=== PATIENT | female | born 1960 | race Caucasian/White ===

== ENCOUNTER → 2016-04-19 | Outpatient (CLI) | payer MEDICARE ==
[~2016-04-19] MED LIST: ACET-2267 PO; ACET160E11; ALPR1T; ALPR1T PO; AMLO1TAB3 PO; AMLO1TAB5; AMLO5TAB2; ASP81TEC; ATOR20TA66 PO; ATOR40TA PO; ATOR40TA70 PO; BUPR100T6 PO; CALC-656 PO; CALC-787 PO; CEPH500C PO; CITA20TA4 PO; CITA40TA19 PO; CLON0.5T3 PO; CLON1TAB36 PO; CPR500T PO; CRS350T PO; ENOX40DI8 SQ; FERR240T9 PO; FLUO20CA25; FLUO20CA25 PO; FLUO20CA42; FLUO40CA PO; GBPN100C PO; HALO5TAB PO; HYDR-2997 PO; HYDR-3454 PO; HYDR-3583 PO; HYDR-757 PO; HYDR1TAB PO; HYDR50TA76 PO; IBUP-1773 PO; IBUP-30 PO; LAMO100T PO; LAMO25TA PO; LINA290C PO; LISI-552 PO; LNZ600T PO; LSNP20T PO; MELO-195 PO; MELO15TA14 PO; MELO15TA39 PO; META800T5 PO; METH500T7; METR500T PO; MORP20SO PO; MULT-963 PO; MULT1CAP27 PO; NAPR-243 PO; NFPRILOC40 PO; OLAN20TA16 PO; OLAN5TAB PO; OLN2.5T PO; OMEG-12 PO; OMEP-10 PO; OMEP40CA36 PO; ONDA-42 SL; ONDA8TAB9 PO; OXYC-109 PO; OXYC-12 PO; OXYC5SOL; PNT40TEC PO; PROP1TAB77; PYRI100T2 PO; QUET100T69 PO; QUET50TA55 PO; ROPI0.5T PO; SCR1T PO; TPR25T PO; TRAZ-144 PO; TRM50T PO; VENL150T PO; WRF2T PO; prevacid
--- OUTSIDE RECORDS SUMMARY | 2016-04-19 09:02 | XMS REPORT | Continuity of Care Document ---
Author Author [facility] Organization [facility] Address Unknown Phone Unavailable Care Team Providers Care Battery Repairer Name Role Phone Сергей Hopper PCP [phone] Source Comments Some departments are not documenting in the electronic medical record. If you do not see the information that you expected, contact Release of Information in the Health Information Management department at [phone] for further assistance in locating additional records.[facility] Active Allergies and Adverse Reactions Allergen Noted Date Severity Reactions Comments Adhesive 2011 RASH Codeine 04/22/2009 NAUSEA AND VOMITING Tachycardia, itching Pcn 12/31/2014 Medium HIVES Current Medications Prescription Sig. Disp. Refills Start End Date Status Date omeprazole DR(+) Take 1 Cap by mouth 90 Cap 3 03/04/20 Active (PRILOSEC) 40 mg capsule daily. 30 minutes to 1 11 hour prior to a meal levothyroxine (SYNTHROID) Take 25 mcg by mouth Active 25 mcg tablet daily 30 minutes before breakfast. amLODIPine (NORVASC) 5 mg Take 5 mg by mouth daily. Active tablet lithium carbonate SR Take 2 Tabs by mouth at 60 Tab 1 01/22/20 Active (LITHOBID) 300 mg tablet bedtime daily. Take with 16 food. lithium carbonate SR Take 1 Tab by mouth daily 30 Tab 1 01/22/20 Active (LITHOBID) 300 mg tablet with breakfast. Take with 16 food. nortriptyline (PAMELOR) Take 1 Cap by mouth at 30 Cap 1 01/22/20 Active 50 mg capsule bedtime daily. 16 traZODone (DESYREL) 50 mg Take 1 Tab by mouth at 30 Tab 1 02/02/20 Active tablet bedtime as needed for 16 Sleep or Depression. 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) Suicidal thoughts 01/27/2015 02/11/2015 Bipolar 1 disorder, depressed, severe ([facility]) 01/27/2015 02/14/2015 Depression with suicidal ideation 12/29/2014 01/14/2015 Bipolar 1 disorder, mixed, partial remission ([facility]) 06/12/2014 05/26/2015 Most Recent Encounters Date Type Specialty Providers Description 01/18/2016 [facility] Sam MD Encounter 01/18/2016 Anesthesia Gene Machuca MD Event Social History Tobacco Use Types Packs/Day Years Used Date Former Smoker 0 20 Quit: 03/06/1989 Smokeless Tobacco: Former Quit: User 03/06/1989 Alcohol Use Drinks/Week oz/Week Comments No 0.0 Last Filed Vital Signs Vital Sign Reading Time Taken Blood Pressure 136/86 01/18/2016 9:30 AM ASSOCIATE DIRECTOR OF BIOSTATISTICS Pulse 89 01/18/2016 9:30 AM ASSOCIATE DIRECTOR OF BIOSTATISTICS Temperature 37 C (98.6 F) 01/18/2016 9:30 AM ASSOCIATE DIRECTOR OF BIOSTATISTICS Respiratory Rate - - Height 1.676 m (5' 6") 01/22/2016 11:20 AM ASSOCIATE DIRECTOR OF BIOSTATISTICS Weight 106.505 kg (234 lb 12.8 01/22/2016 11:20 AM ASSOCIATE DIRECTOR OF BIOSTATISTICS oz) Body Mass Index 37.92 01/22/2016 11:20 AM ASSOCIATE DIRECTOR OF BIOSTATISTICS Oxygen Saturation 93% 01/18/2016 9:30 AM ASSOCIATE DIRECTOR OF BIOSTATISTICS Plan of Care Health Maintenance Due Date Last Done Comments Hepatitis C Screening 1959 Physical (Comprehensive) 1966 Exam Pertussis Vaccine 1970 Tetanus Vaccine 1976 Cervical Cancer Screening 1980 Breast Cancer Screening 1999 Colorectal Cancer 2009 Screening Influenza Vaccine 11/05/2015 Procedures from Last 3 Months Procedure Name Priority Date/Time Associated Diagnosis Comments PROCEDURES-SCAN 01/20/2016 Results for this 3:55 PM ASSOCIATE DIRECTOR OF BIOSTATISTICS procedure are in the results section. PROCEDURES-SCAN 01/20/2016 Results for this 3:52 PM ASSOCIATE DIRECTOR OF BIOSTATISTICS procedure are in the results section. Results from Last 3 Months PROCEDURES-SCAN (01/20/2016 3:55 PM) Narrative Ordered by an unspecified provider. PROCEDURES-SCAN (01/20/2016 3:52 PM) Narrative Ordered by an unspecified provider.
--- NOTE | 2016-04-19 09:16 | Diagnostic Imaging Report ---
PROCEDURE: CT sinuses without contrast TECHNIQUE: Multiple contiguous axial images were obtained through the sinuses without the use of intravenous contrast. Coronal and sagittal reformations were then performed. INDICATION: Left-sided jaw and ear pain x3 weeks. Suspect sinusitis. COMPARISON: CT neck dated 08/07/2015 FINDINGS: Evaluation of paranasal sinuses demonstrates small mucosal retention cyst versus polyp within the left maxillary sinus. Otherwise, there is no significant mucosal thickening throughout. No abnormal air-fluid levels are identified. Ostiomeatal complexes are patent. Bilateral nasal bones are intact. Bony nasal septum is intact as well. Bony nasal septum is slightly deviated to the right. This appears to be on a congenital or developmental basis. No acute bony abnormalities are seen. No lytic or blastic bony lesions are identified. Overlying soft tissue structures are unremarkable. No unexpected radiopaque foreign bodies are seen. There is no soft tissue emphysema. Included portions of the internal structures show no additional acute abnormalities. IMPRESSION: 1. No CT evidence of acute sinusitis. Dictated by: Dictated on workstation # [id number]
== END ==
LOC: RAD 08:58
PROVIDERS: ATTEND Nurse Practitioner Family
DX: R22.0 Localized swelling, mass and lump, head (principal)
CPT/HCPCS: 70486

== ENCOUNTER 2016-06-18 15:12 | Emergency (ER) | payer MEDICARE ==
[~2016-06-18] VITALS: Ht 170.2 cm; Wt 113.4 kg
[2016-06-18] MEDS ORDERED: KETOROLAC 60 MG/2 ML VIAL IM ONE (15:30)
--- NOTE | 2016-06-18 15:32 | ED Headache ---
General Chief Complaint: Head/Cervical Problems Stated Complaint: HEADACHE Source: patient Exam Limitations: no limitations History of Present Illness Time seen by provider: 15:31 Initial Comments To ER complaint by her with reports of a frontal headache associated with nausea and vomiting for the past 3-4 days. She has a history of these and this feels similar. Normally Phenergan and Toradol injections work well for her. Timing/Duration: other Severity/Quality: constant Location: frontal Associated Symptoms: denies symptoms Allergies and Home Medications Allergies Coded Allergies: codeine (Unverified Allergy, Intermediate, RASH/SWELLING; PATIENT HAS RECEIVED MORPHINE W/O PROBLEMS, 01/09/09) Iodinated Contrast Media - IV Dye (Unverified Allergy, Mild, 08/07/15) FEW HIVES, FULLNESS IN EARS Penicillins (Unverified Allergy, Mild, NAUSEA/VOMITING, 12/16/13) SHE CAN TAKE AUGMENTIN FINE adhesive tape (Unverified Allergy, Unknown, 09/02/13) latex (Unverified Allergy, Unknown, 09/02/13) Home Medications Clonazepam 0.5 Mg Tablet, 1 MG PO HS, (Reported) TAKES 2 (0.5MG) TABLETS Clonazepam 0.5 Mg Tablet, 0.5 MG PO AM, (Reported) Haloperidol 5 Mg Tablet, 5 MG PO DAILY, (Reported) Lamotrigine 25 Mg Tablet, 12.5 MG PO DAILY, #30 Ref 1 Prescribed by: JAJA SOTELO on 12/09/14 0911 Linaclotide 290 Mcg Capsule, 290 MCG PO DAILY PRN for CONSTIPATION, (Reported) Lisinopril 20 Mg Tablet, 20 MG PO DAILY, (Reported) Omeprazole 40 Mg Capsule.dr, 40 MG PO DAILY, (Reported) Venlafaxine HCl 150 Mg Tab.er.24, 150 MG PO DAILY, (Reported) Constitutional: see HPI, No fever Eyes: No Symptoms Reported Ears, Nose, Mouth, Throat: no symptoms reported Respiratory: no symptoms reported Cardiovascular: no symptoms reported Genitourinary: no symptoms reported Musculoskeletal: no symptoms reported Skin: see HPI Psychiatric/Neurological: See HPI, Headache Past Zyydcxn-Yrhrbn-Rymcus Hx Patient Social History Former Smoker/When Quit: Dec 05, 1990 2nd Hand Smoke Exposure: No Recent Foreign Travel: No Contact w/Someone Who Travel: No Immunizations Up To Date Tetanus Booster (TDap): More than 5yrs PED Vaccines UTD: No Date of Pneumonia Vaccine: Dec 04, 2008 Date of Influenza Vaccine: Nov 28, 2014 Seasonal Allergies Seasonal Allergies: Yes Surgeries HX Surgeries: Yes (PEG TUBE, TRACH, COLON RESECTION, bunion sx, PORT REMOVED IN 2010, ) Surgeries: Appendectomy, Breast, Gallbladder, Hysterectomy, Orthopedic, Tonsillectomy Respiratory Hx Respiratory Disorders: No Cardiovascular Hx Cardiac Disorders: Yes (CARDIAC CATH, BLOOD CLOT 2010 UPPER SHOULDER ) Cardiac Disorders: High Cholesterol, Hypertension Neurological Hx Neurological Disorders: No Reproductive System Hx Reproductive Disorders: Yes Sexually Transmitted Disease: No Female Reproductive Disorders: Endometriosis, Ovarian Cyst, Polycystic Ovarian Dis STRUCTURAL FITTER History: Hysterectomy, Menopausal Genitourinary Hx Genitourinary Disorders: No Gastrointestinal Hx Gastrointestinal Disorders: Yes Gastrointestinal Disorders: Gastroesophageal Reflux, Diverticulosis Musculoskeletal Hx Musculoskeletal Disorders: Yes Musculoskeletal Disorders: Arthritis, Fibromyalgia Endocrine Hx Endocrine Disorders: No HEENT HX ENT Disorders: Yes (OROPHARYNX CA--S/P CHEMO & RADIATION, TRACH ) Loss of Vision: Denies Hearing Impairment: Denies Cancer Hx Cancer: Yes (tumor above vocal chords removed 5 YEARS AGO) Psychosocial Hx Psychiatric Problems: Yes Behavioral Health Disorders: Sleep Difficulties, Anxiety, Bipolar, Depression Integumentary HX Skin/Integumentary Disorder: No Blood Transfusions Hx Blood Disorders: No Adverse Reaction to a Blood Tr: No Family Medical History Significant Family History: Heart Disease, Cancer, Hypertension, Psychiatric Problems Family Medial History: Alzheimer's disease 19 MOTHER Arthritis 19 MOTHER Cardiovascular disease 19 MOTHER Cataracts 19 MOTHER Dementia 19 MOTHER Diabetes mellitus 19 FATHER Headache disorder Hypercholesterolemia 19 FATHER Hypertension 19 FATHER Neoplasm 19 FATHER (PANCREATIC CANCER) Physical Exam Vital Signs Capillary Refill : General Appearance: WD/WN, no apparent distress HEENT: PERRL/EOMI, normal ENT inspection Neck: non-tender, full range of motion Respiratory: normal breath sounds, no respiratory distress, no accessory muscle use Gastrointestinal: non tender, soft Extremities: normal range of motion, non-tender Psychiatric: alert, oriented x 3 Crainal Nerves: normal hearing, normal speech, PERRL Skin: normal color, warm/dry Progress/Results/Core Measures Results/Orders My Orders Orders - MARTHA LEE APRN Ketorolac Injection (Toradol Injection) (06/18/16 15:30) Departure Impression Impression: Primary Impression: Headache Disposition: 01 HOME, SELF-CARE Condition: Stable Departure-Patient Inst. Decision time for Depature: 15:33 Referrals: JAJA SOTELO MD (PCP/Family) Primary Care Physician Patient Instructions: Headache, Adult (DC) Add. Discharge Instructions: 1. Return to ER for any concerns 2. Follow-up with your doctor next week 3. All discharge instructions reviewed with patient and/or family. Voiced understanding. MARTHA LEE APRN Jun 18, 2016 15:32
[2016-06-18] MEDS ORDERED: PROMETHAZINE INJ 25 MG/ML (PHENERGAN) AMP ONE (15:37)
[2016-06-18 16:08] VITALS: BP 142/90
== END 2016-06-18 16:10 | disposition home or self-care (01) ==
LOC: EDUNIT# 15:12 → ER 15:15
DX: R51 Headache (principal); R11.2 Nausea with vomiting, unspecified; I10 Essential (primary) hypertension; Z79.899 Other long term (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
CPT/HCPCS: 96372; 99282

== ENCOUNTER → 2016-08-11 | Outpatient (CLI) | payer MEDICARE ==
[~2016-08-11] VITALS: Ht 170.2 cm; Wt 113.6 kg
== END ==
LOC: PREOP 06:16
PROVIDERS: ATTEND Surgery
DX: Z01.818 Encounter for other preprocedural examination (principal); Z12.11 Encounter for screening for malignant neoplasm of colon

== ENCOUNTER 2016-08-15 11:39 | Day surgery (SDC) | payer MEDICARE ==
[~2016-08-15] VITALS: Ht 170.2 cm; Wt 113.6 kg
[2016-08-15] MEDS ORDERED: LACTATED RINGERS 1,000 ML IV ONE (11:50)
[2016-08-15 12:05] VITALS: BP 134/68
[2016-08-15] MEDS ORDERED: proPOfol 200 MG/20 ML (DIPRIVAN) VIAL IV ONE (13:31)
[2016-08-15] MEDS ORDERED: MIDAZOLAM 2 MG/2 ML (VERSED) VIAL ONE ×2 (13:32)
--- NOTE | 2016-08-15 13:53 | Progress Note-Pre Operative ---
Pre-Operative Progress Note H&P Reviewed The H&P was reviewed, patient examined and no changes noted. Time Seen by Provider: 12:47 Date H&P Reviewed: Aug 15, 2016 Time H&P Reviewed: 12:48 Pre-Operative Diagnosis: constipation, change in bowel habits ANGEL PUENTES DO Aug 15, 2016 13:53
[2016-08-15] MEDS ORDERED: morphine INJ 10 MG/ML 1ML (SYR OR VIAL) IVP PRN (14:00)
--- NOTE | 2016-08-15 14:25 | Progress Note-Post Operative ---
Post-Operative Progess Note Surgeon (s)/Nurse College (s) Surgeon ANGEL PUENTES DO Nurse College: none Pre-Operative Diagnosis constipation, change in bowel habits Post-Operative Diagnosis Polyps - cecum, ascending colon, rectum Procedure & Operative Findings Date of Procedure 08/15/16 Procedure Performed/Findings Colon with snare Anesthesia Type IV sedation Estimated Blood Loss Estimated blood loss (mL): scant Specimens/Packing Specimens Removed 1 polyp in 3 pieces cecal asc colon polyp rectal polyp ANGEL PUENTES DO Aug 15, 2016 14:25
--- NOTE | 2016-08-15 14:27 | Endoscopy Discharge Instruct ---
Endo Procedure/Findings Findings 1.: Polyp 2.: Diverticulosis 3.: Internal Hemorrhoids Discharge Instructions - Activity: You might feel a little sleepy until tomorrow. This is due to the medicine you received to relax you. Until tomorrow, you should: NOT drive a car, operate machinery or power tools. NOT drink any alcoholic beverages. NOT make any important decisions or sign importortant papers. Do not return to work until tomorrow, unless otherwise instructed. Resume previous activities tomorrow. Diet: Start by taking liquids. If you tolerate liquids, advance to solid food. Call for appointment in one week. [phone] Notify Physician - If you experience excessive bleeding, unusual abdominal pain, fever, or chest pain, contact your doctor immediately. [phone] Follow-Up: - I have received and understand the above instructions and will call my doctor if I have any further questions. Patient Signature Date Nurse Signature Other (Relationship) ANGEL PUENTES DO Aug 15, 2016 14:27
[2016-08-15 14:40] VITALS: BP 135/85
[2016-08-15 15:00] VITALS: BP 121/63
[2016-08-15 15:05] VITALS: BP 121/63
--- NOTE | 2016-08-16 03:48 | OPERATIVE REPORT ---
DATE OF SERVICE: 08/15/2016 PREOPERATIVE DIAGNOSES: 1. Change in bowel habits. 2. Constipation. 3. Screening colonoscopy. POSTOPERATIVE DIAGNOSES: 1. Colon polyps. 2. Diverticula. 3. Internal hemorrhoids. PROCEDURE: Colonoscopy with snare polypectomy. SURGEON: Sumit Dietrich DO ORE GRADER: None. ANESTHESIA: IV sedation by SENIOR HYDROGEOLOGIST. SPECIMENS: 1. One large polyp and 3 pieces from the cecum. 2. Polyp from ascending colon. 3. Polyp from rectum. BLOOD LOSS: Scant. FLUIDS: Per anesthesia. POSTOPERATIVE CONDITION: Stable. INDICATION FOR PROCEDURE: The patient is a 56-year-old female who has been having some change in bowel habits, history of esophageal cancer. She also had a colon resection, I think for diverticulitis and she needed screening colonoscopy. FINDINGS: The patient had one large polyp in the cecum. She also had another polyp seen in the ascending colon and one in the rectum. The one in the cecum had been taken in 3 bites, so I could piece by piece take the whole thing removed. She also had some diverticula seen and some internal hemorrhoids. Pictures were taken of both of these. PROCEDURE NOTE: After informed consent was obtained, the patient was brought to the endoscopy suite, placed in the bed in left lateral decubitus position. She was administered IV sedation and the SENIOR HYDROGEOLOGIST monitored her vitals. Scope was inserted, pushed all the way to about 120 cm till we got all the way to the cecum. On the way, I took a picture of the previous colon resection which is down low. I took a picture of some diverticula and then noticed a mass in the cecum, then took a picture of the appendix. In the cecum, took 3 bites with a snare to remove this whole thing. I took a picture after this was gone. There was minimal bleeding. I then slowly withdrew the scope, insufflating to look circumferentially at the mejias and up into the ascending colon just past the terminal ileum, saw another small polyp, did a snare polypectomy of this and then continued up the ascending colon to the hepatic flexure, then down the transverse colon, the splenic flexure. Started seeing some diverticula here and then into the rectum saw another polyp. Did a snare polypectomy of this and then retroflexed in the rectal vault and saw some small internal hemorrhoids and then removed the scope. The patient tolerated the procedure and she was transferred to the recovery room in stable condition. Job ID: [id number] DocumentID: [id number] Dictated Date: 08/15/2016 16:53:22 Clinical Reviewer Date: 08/16/2016 03:25:56 Dictated By: SUMIT DIETRICH DO
== END 2016-08-15 15:05 | disposition home or self-care (01) ==
LOC: ENDO 11:39
PROVIDERS: ATTEND Surgery
DX: K63.5 Polyp of colon (principal); K57.30 Diverticulosis of large intestine without perforation or abscess without bleeding; K64.8 Other hemorrhoids; Z85.01 Personal history of malignant neoplasm of esophagus; F41.9 Anxiety disorder, unspecified; J21.9 Acute bronchiolitis, unspecified; I10 Essential (primary) hypertension; E78.5 Hyperlipidemia, unspecified; M79.7 Fibromyalgia; F31.9 Bipolar disorder, unspecified; K21.9 Gastro-esophageal reflux disease without esophagitis; Z79.899 Other long term (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
CPT/HCPCS: 82962

== ENCOUNTER 2016-11-04 16:43 | Emergency (ER) | payer MEDICARE ==
[~2016-11-04] VITALS: Ht 170.2 cm; Wt 83.0 kg
--- OUTSIDE RECORDS SUMMARY | 2016-11-04 16:49 | XMS REPORT | Clinical Summary ---
Author Author [facility] Organization [facility] Address Unknown Phone Unavailable Care Team Providers Care Office Machine Servicer Apprentice Name Role Phone PCP Unavailable Source Comments Some departments are not documenting in the electronic medical record. If you do not see the information that you expected, contact Release of Information in the Health Information Management department at [phone] for further assistance in locating additional records.[facility] Allergies Active Allergy Reactions Severity Noted Date Comments Penicillins HIVES Medium 12/31/2014 Adhesive RASH 2011 Codeine NAUSEA AND VOMITING 04/22/2009 Tachycardia, itching Current Medications Prescription Sig. Disp. 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 Resolved Problems Problem Noted Date Resolved Date Suicidal ideation 01/09/2016 01/18/2016 Suicidal ideation 05/25/2015 06/10/2015 Major depressive disorder, recurrent, severe without psychotic features 02/201505/26/2015 ([facility]) Suicidal thoughts 01/27/2015 02/11/2015 Bipolar 1 disorder, depressed, severe ([facility]) 01/27/2015 02/14/2015 Depression with suicidal ideation 12/29/2014 01/14/2015 Bipolar 1 disorder, mixed, partial remission ([facility]) 06/12/2014 05/26/2015 Family History Medical History Relation Name Comments Hypertension Brother Cancer Father Diabetes Father Hypertension Father Depression Mother High Cholesterol Mother Hypertension Mother Relation Name Status Comments Brother Alive Father Mother Alive Social History Tobacco Use Types Packs/Day Years Used Date Former Smoker 0 20 Quit: 03/06/1989 Smokeless Tobacco: Former Quit: User 03/06/1989 Alcohol Use Drinks/Week oz/Week Comments No 0.0 Sex Assigned at Date Recorded Not on file Last Filed Vital Signs Vital Sign Reading Time Taken Blood Pressure 136/86 01/18/2016 9:30 AM DEPUTY CORONER INVESTIGATOR Pulse 89 01/18/2016 9:30 AM DEPUTY CORONER INVESTIGATOR Temperature 37 C (98.6 F) 01/18/2016 9:30 AM DEPUTY CORONER INVESTIGATOR Respiratory Rate - - Oxygen Saturation 93% 01/18/2016 9:30 AM DEPUTY CORONER INVESTIGATOR Inhaled Oxygen - - Concentration Weight 106.5 kg (234 lb 12.8 oz) 01/22/2016 11:20 AM DEPUTY CORONER INVESTIGATOR Height 167.6 cm (5' 6") 01/22/2016 11:20 AM DEPUTY CORONER INVESTIGATOR Body Mass Index 37.9 01/22/2016 11:20 AM DEPUTY CORONER INVESTIGATOR Plan of Treatment Health Maintenance Due Date Last Done Comments HEPATITIS C SCREENING 1960 PHYSICAL (COMPREHENSIVE) 1966 EXAM PERTUSSIS VACCINE 1970 TETANUS VACCINE 1976 CERVICAL CANCER SCREENING 1989 BREAST CANCER SCREENING 1999 COLORECTAL CANCER 2009 SCREENING INFLUENZA VACCINE 11/04/2016 Results Not on filefrom Last 3 Months
--- NOTE | 2016-11-04 17:50 | ED Abdominal Pain ---
General Chief Complaint: Abdominal/GI Problems Stated Complaint: VOMITING/STOMACH PAIN Nursing Triage Note: Ambulatory to ED 8 with reports of nausea, vomiting, diarrhea and abdominal pain since Monday. Denies seeing PCP. Sepsis Screen: No Definite Risk Source of Information: Patient, Family Exam Limitations: No Limitations (DAVID STEINER MD) History of Present Illness Time Seen By Provider: 17:45 Initial Comments The patient is a 56-year-old white female of 140 previous EMR contacts. She reports that she is had vomiting since last Monday. She has intermittently had diarrhea and then constipation. She had a large watery stool earlier today. There has been some distention. There has been previous abdominal surgery. Timing/Duration: 5-6 Days Severity/Quality: Moderate Location: Generalized Abdomen Radiation: No Radiation Activities at Onset: None Associated Symptoms: Denies Symptoms (DAVID STEINER MD) Initial Comments Patient ALSO gives a history that she's been vomiting since Monday and not able to keep any fluids or food down. She states that her allergy to penicillin is causing ringing in the ears. She says she's had Rocephin in the past and tolerated just fine. (FRED,ROSELYN King) Allergies and Home Medications Allergies Coded Allergies: codeine (Verified Allergy, Intermediate, RASH/SWELLING; PATIENT HAS RECEIVED MORPHINE W/O PROBLEMS, 11/04/16) Iodinated Contrast- Oral and IV Dye (Verified Allergy, Mild, 11/04/16) FEW HIVES, FULLNESS IN EARS Penicillins (Verified Allergy, Mild, NAUSEA/VOMITING, 11/04/16) SHE CAN TAKE AUGMENTIN FINE adhesive tape (Verified Allergy, Unknown, 11/04/16) latex (Verified Allergy, Unknown, 11/04/16) Home Medications Cephalexin 500 Mg Capsule, 500 MG PO BID for 4 Days, #8 Ref 0 Prescribed by: ROSELYN IBARRA on 11/04/16 1910 Clonazepam 0.5 Mg Tablet, 1 MG PO HS, (Reported) TAKES 2 (0.5MG) TABLETS Clonazepam 0.5 Mg Tablet, 0.5 MG PO AM, (Reported) Haloperidol 5 Mg Tablet, 5 MG PO DAILY, (Reported) Lamotrigine 25 Mg Tablet, 12.5 MG PO DAILY, #30 Ref 1 Prescribed by: JAJA SOTELO on 12/09/14 0911 Linaclotide 290 Mcg Capsule, 290 MCG PO DAILY PRN for CONSTIPATION, (Reported) Lisinopril 20 Mg Tablet, 20 MG PO DAILY, (Reported) Omeprazole 40 Mg Capsule.dr, 40 MG PO DAILY, (Reported) Ondansetron 4 Mg Tab.rapdis, 4 MG PO Q6H PRN for NAUSEA/VOMITING-1ST LINE for 7 Days, #10 Ref 0 Prescribed by: ROSELYN IBARRA on 11/04/160 Venlafaxine HCl 150 Mg Tab.er.24, 150 MG PO DAILY, (Reported) Review of Systems Constitutional: No chills, No diaphoresis, malaise EENTM: No Blurred Vision, No Double Vision, No Eye Pain Respiratory: Denies Cough, Denies Shortness of Air Cardiovascular: Denies Chest Pain, Denies Lightheadedness Gastrointestinal: See HPI, Denies Diarrhea, Denies Nausea, Denies Vomiting Genitourinary: Denies Burning, Denies Discharge Musculoskeletal: No back pain, No joint pain Skin: No change in color Psychiatric/Neurological: Denies Headache, Denies Numbness, Denies Paresthesia (ROSELYN IBARRA) Past Aukhjla-Coshfp-Rjocmb Hx Patient Social History Alcohol Use: Denies Use Recreational Drug Use: No Smoking Status: Former Smoker Type Used: Cigarettes Former Smoker, Quit: Aug 11, 1986 2nd Hand Smoke Exposure: No Recent Foreign Travel: No Contact w/Someone Who Travel: No Recent Infectious Disease Expo: No Recent Hopitalizations: No Physical Abuse: No Sexual Abuse: No Mistreated: No Fear: No (DAVID STEINER MD) Immunizations Up To Date Tetanus Booster (TDap): Less than 5yrs PED Vaccines UTD: No Date of Pneumonia Vaccine: July 25, 2016 Date of Influenza Vaccine: Dec 14, 2015 (DAVID STEINER MD) Seasonal Allergies Seasonal Allergies: Yes (DAVID STEINER MD) Surgeries History of Surgeries: Yes (PEG TUBE, TRACH, COLON RESECTION, bunion sx, PORT REMOVED IN 2010, ) Surgeries: Appendectomy, Breast, Gallbladder, Hysterectomy, Orthopedic, Tonsillectomy (DAVID STEINER MD) Respiratory History of Respiratory Disorde: No Currently Using CPAP: No (DAVID STEINER MD) Cardiovascular History of Cardiac Disorders: Yes (CARDIAC CATH-NO STENTS) Cardiac Disorders: Deep Vein Thrombosis, High Cholesterol, Hypertension (DAVID STEINER MD) Neurological History of Neurological Disord: No (DAVID STEINER MD) Reproductive System Hx Reproductive Disorders: No Sexually Transmitted Disease: No HIV/AIDS: No Female Reproductive Disorders: Polycystic Ovarian Dis DIRECTOR PHARMACOVIGILANCE History: Hysterectomy (DAVID STEINER MD) Gastrointestinal History of Gastrointestinal Di: Yes Gastrointestinal Disorders: Gastroesophageal Reflux, Chronic Constipation, Diverticulosis (DAVID STEINER MD) Musculoskeletal History of Musculoskeletal Dis: Yes Musculoskeletal Disorders: Arthritis, Fibromyalgia (DAVID STEINER MD) Endocrine History of Endocrine Disorders: Yes (DAVID STEINER MD) HEENT Loss of Vision: Bilateral Hearing Impairment: Denies (DAVID STEINER MD) 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) Did You Recieve Any Treatments: Yes Type of Tx Receive: Chemotherapy, Radiation (DAVID STEINER MD) Psychosocial History of Psychiatric Problem: Yes Behavioral Health Disorders: Sleep Difficulties, Anxiety, Bipolar, Depression Suicide Risk Score: 0 (DAVID STEINER MD) Integumentary History of Skin or Integumenta: No (DAVID STEINER MD) Blood Transfusions History of Blood Disorders: No Adverse Reaction to a Blood Tr: No (DAVID STEINER MD) Family Medical History Significant Family History: Heart Disease, Cancer, Hypertension, Psychiatric Problems Family Medial History: Alzheimer's disease 19 MOTHER Arthritis 19 MOTHER Cardiovascular disease 19 MOTHER Cataracts 19 MOTHER Dementia 19 MOTHER Diabetes mellitus 19 FATHER Headache disorder Hypercholesterolemia 19 FATHER Hypertension 19 FATHER Neoplasm 19 FATHER (PANCREATIC CANCER) (DAVID STEINER MD) Family Medial History: Alzheimer's disease 19 MOTHER Arthritis 19 MOTHER Cardiovascular disease 19 MOTHER Cataracts 19 MOTHER Dementia 19 MOTHER Diabetes mellitus 19 FATHER Headache disorder Hypercholesterolemia 19 FATHER Hypertension 19 FATHER Neoplasm 19 FATHER (PANCREATIC CANCER) (ROSELYN IBARRA) Physical Exam Vital Signs VS - Last 72 Hours, by Label 11/04/16 11/04/16 17:14 20:49 Temp 98.5 98.5 Pulse 94 84 Resp 18 19 B/P (MAP) 133/79 Pulse Ox 98 97 O2 Delivery Room Air Room Air (ROSELYN IBARRA) Vital Signs Capillary Refill : Less Than 3 Seconds (DAVID STEINER MD) General Appearance: WD/WN, no apparent distress HEENT: normal ENT inspection Neck: full range of motion Respiratory: chest non-tender, lungs clear, normal breath sounds, no respiratory distress, no accessory muscle use Cardiovascular: normal peripheral pulses, regular rate, rhythm, no edema, no gallop, no JVD, no murmur Gastrointestinal: abnormal bowel sounds (hyperactive) Extremities: normal range of motion, no pedal edema Skin: normal color, warm/dry Lymphatic: no adenopathy (DAVID STEINER MD) Progress/Results/Core Measures Results/Orders Lab Results Laboratory Tests Test 11/04/16 18:10 11/04/16 18:17 Range/Units White Blood Count 5.6 4.3-11.0 10^3/uL Red Blood Count 4.89 4.35-5.85 10^6/uL Hemoglobin 13.9 11.5-16.0 G/DL Hematocrit 41 35-52 % Mean Corpuscular Volume 83 80-99 FL Mean Corpuscular Hemoglobin 28 25-34 PG Mean Corpuscular Hemoglobin Concent 34 32-36 G/DL Red Cell Distribution Width 15.2 H 10.0-14.5 % Platelet Count 257 130-400 10^3/uL Mean Platelet Volume 9.2 7.4-10.4 FL Neutrophils (%) (Auto) 63 42-75 % Lymphocytes (%) (Auto) 26 12-44 % Monocytes (%) (Auto) 10 0-12 % Eosinophils (%) (Auto) 1 0-10 % Basophils (%) (Auto) 0 0-10 % Neutrophils # (Auto) 3.5 1.8-7.8 X 10^3 Lymphocytes # (Auto) 1.5 1.0-4.0 X 10^3 Monocytes # (Auto) 0.6 0.0-1.0 X 10^3 Eosinophils # (Auto) 0.0 0.0-0.3 10^3/uL Basophils # (Auto) 0.0 0.0-0.1 10^3/uL Sodium Level 141 135-145 MMOL/L Potassium Level 2.5 *L 3.6-5.0 MMOL/L Chloride Level 102 98-107 MMOL/L Carbon Dioxide Level 24 21-32 MMOL/L Anion Gap 15 H 5-14 MMOL/L Blood Urea Nitrogen 11 7-18 MG/DL Creatinine 0.78 0.60-1.30 MG/DL Estimat Glomerular Filtration Rate > 60 BUN/Creatinine Ratio 14 Glucose Level 90 70-105 MG/DL Calcium Level 9.3 8.5-10.1 MG/DL Total Bilirubin 0.6 0.1-1.0 MG/DL Aspartate Amino Transf (AST/SGOT) 98 H 5-34 U/L Alanine Aminotransferase (ALT/SGPT) 38 0-55 U/L Alkaline Phosphatase 60 40-136 U/L Total Protein 6.4 6.4-8.2 GM/DL Albumin 4.1 3.2-4.5 GM/DL Urine Color YELLOW Urine Clarity CLEAR Urine pH 5 5-9 Urine Specific [place] 1.025 H 1.016-1.022 Urine Protein 2+ H NEGATIVE Urine Glucose (UA) NEGATIVE NEGATIVE Urine Ketones 3+ H NEGATIVE Urine Nitrite NEGATIVE NEGATIVE Urine Bilirubin 1+ H NEGATIVE Urine Urobilinogen 1 NORMAL MG/DL Urine Leukocyte Esterase 1+ H NEGATIVE Urine RBC (Auto) 2+ H NEGATIVE Urine RBC 2-5 H /HPF Urine WBC 5-10 H /HPF Urine Crystals NONE /LPF Urine Bacteria FEW H /HPF Urine Casts PRESENT /LPF Urine Hyaline Casts 2-5 H /LPF Urine Mucus NEGATIVE /LPF Urine Culture Indicated YES (ROSELYN IBARRA) My Orders Orders - ROSELYN IBARRA Saline Lock/Iv-Start (11/04/16 19:02) Ns Iv 1000 Ml (Sodi... W/Potassium Chlor (11/04/16 19:02) Ceftriaxone Injection (Rocephin Injectio (11/04/16 19:15) Ondansetron Injection (Zofran Injectio (11/04/16 19:15) Rx-Ondansetron Po (Rx-Zofran Po) (11/04/16 19:02) (ROSELYN IBARRA) Medications Given in ED Current Medications Medications Dose Ordered Sig/Keven Route Start Time Stop Time Status Last Admin Dose Admin Ceftriaxone Sodium 1000 mg/ Sodium Chloride 50 ml @ 100 mls/hr ONCE ONCE IV 11/04/16 19:15 11/04/16 19:44 DC 11/04/16 19:20 100 MLS/HR Ondansetron HCl 4 mg ONCE ONCE IVP 11/04/16 19:15 11/04/16 19:16 DC 11/04/16 19:19 4 MG Potassium Chloride 20 meq/ Sodium Chloride 1,010 ml @ 1 l/hr Q1H1M ONCE IV 11/04/16 19:02 11/04/16 20:02 DC 11/04/16 19:27 1 L/HR (ROSELYN IBARRA) Vital Signs/I&O Vital Sign - Last 12Hours 11/04/16 11/04/16 17:14 20:49 Temp 98.5 98.5 Pulse 94 84 Resp 18 19 B/P (MAP) 133/79 Pulse Ox 98 97 O2 Delivery Room Air Room Air Intake and Output 11/05/16 00:00 Intake Total 1060 ml Balance 1060 ml (ROSELYN IBARRA) Blood Pressure Mean: 97 Progress Note : Time: 19:06 Progress Note Patient has a UTI on urinalysis which would explain all of her symptoms. We'll give her some nausea medicines replace her low potassium with a bag of fluids and potassium and if we can get her nausea under control then she can resume drinking Gatorade and eating an and as and this will fix her potassium on its own. We'll give her a gram or Rocephin as well as a liter fluids washes all down with. We will observe her over the next hour or 2 that it takes to get the potassium in. (ROSELYN IBARRA) Diagnostic Imaging Diagonstic Imaging: CT Plain Films/CT/US/NM/MRI: abdomen, pelvis Comments VIA [facility]. [place], [place] NAME: GURINDER HI [facility] REC#: [id number] PT STATUS: REG ER : 1960 PHYSICIAN: DAVDI STEINER MD ADMIT DATE: 11/04/16/ER Draft Date of Exam:11/04/16 CT ABDOMEN/PELVIS WO PROCEDURE: CT abdomen and pelvis without contrast. TECHNIQUE: Multiple contiguous axial images were obtained through the abdomen and pelvis without the use of intravenous contrast. INDICATION: Vomiting and abdominal pain. History of a cholecystectomy, appendectomy and hysterectomy. History of esophageal cancer. COMPARISON is made to a prior study from December 27, 2014. FINDINGS: The lung bases demonstrate mild linear scarring or atelectasis within the right lower lobe. This is not significantly changed from the prior study and scarring is favored. There is no focal infiltrate or evidence of a pleural or pericardial effusion. By CT imaging, there is no evidence of abnormal esophageal thickening. The visualized portion of mediastinum demonstrates no adenopathy. Noncontrast appearance of the liver, unremarkable. There is no intrahepatic biliary dilatation. The patient is status post cholecystectomy. Pancreas demonstrates mild atrophy but no focal abnormality or adjacent fluid or fat stranding. The spleen appears normal in size. There is no adrenal mass. The kidneys demonstrate small 2-3 mm nonobstructing stones within the lower calices. There is no hydronephrosis or evidence of a stone within the ureters. The urinary bladder is nondistended. There are prior surgical changes involving of the sigmoid colon. Diverticulosis is noted. There is no evidence of bowel obstruction and no focal abnormal bowel thickening is demonstrated. There is no free air or free fluid. There is no abscess. There is no abdominal or pelvic adenopathy. There are fat-containing inguinal hernias. Mild atherosclerotic calcification and a normal caliber aorta. No acute or suspicious osseous abnormalities are evident. There are multilevel degenerative endplate changes. IMPRESSION: 1. No CT evidence of an acute inflammatory obstructive process within the abdomen or pelvis. 2. Status post previous cholecystectomy and hysterectomy. There are also prior operative changes involving of the sigmoid colon. There is no bowel obstruction. Uncomplicated diverticulosis is noted. There is no focal inflammatory fat stranding present and there is no free fluid. No adenopathy is evident. Dictated on workstation # [id number] Dict: 11/04/16 1829 Trans: 11/04/16 1845 [facility] [id number] Interpreted by: OSWALDO CAST MD Electronically signed by: Reviewed: Reviewed by Me (ROSELYN IBARRA) Departure Impression Impression: Primary Impression: Urinary tract infection Qualified Codes: N30.01 - Acute cystitis with hematuria Additional Impression: Hypokalemia, gastrointestinal losses Disposition: HOME, SELF-CARE Condition: Stable Departure-Patient Inst. Decision time for Depature: 20:42 (ROSELYN IBARRA) Referrals: MARCELINO RIVAS DO (PCP) Primary Care Physician DICK ANGULO APRN (Family) Primary Care Physician Patient Instructions: Urinary Tract Infection, Adult (DC) Add. Discharge Instructions: Drink copious amounts of fluids. Half strength Gatorade be reasonable. Drink bananas to replace door potassium. As long as you keep your nausea under control with the Zofran 1 tablet under the tongue every 6 hours you're potassium will correct on its own. Taking about its to completion twice a day with food. You can also use yogurt with active culture or probiotics twice a day to reduce the risk of loose stools and diarrhea that are caused by all antibiotics. All discharge instructions reviewed with patient and/or family. Voiced understanding. Scripts Ondansetron (Zofran Odt) 4 Mg Tab.rapdis 4 MG PO Q6H Y for NAUSEA/VOMITING-1ST LINE for 7 Days, #10 TAB 0 Refills Prov: ROSELYN IBARRA 11/04/16 Cephalexin (Keflex) 500 Mg Capsule 500 MG PO BID for 4 Days, #8 CAP 0 Refills Prov: ROSELYN IBARRA 11/04/16 Copy Copies To 1: MARCELINO RIVAS RODNEY K MD Nov 04, 2016 17:50 ROSELYN IBARRA Nov 04, 2016 18:58
[2016-11-04 18:18] LABS: BASOPHILS % (AUTO) 0 % (0-10); EOSINOPHILS % (AUTO) 1 % (0-10); LYMPHOCYTES # (AUTO) 1.5 X 10^3 (1.0-4.0); LYMPHOCYTES % (AUTO) 26 % (12-44); MEAN CORPUSCULAR HEMOGLOBIN 28 PG (25-34); MEAN CORPUSCULAR HGB CONC 34 G/DL (32-36); MEAN CORPUSCULAR VOLUME 83 FL (80-99); MEAN PLATELET VOLUME 9.2 FL (7.4-10.4); MONOCYTES # (AUTO) 0.6 X 10^3 (0.0-1.0); MONOCYTES % (AUTO) 10 % (0-12); NEUTROPHILS # (AUTO) 3.5 X 10^3 (1.8-7.8); NEUTROPHILS % (AUTO) 63 % (42-75); PLATELET COUNT 257 10^3/uL (130-400); RED BLOOD COUNT 4.89 10^6/uL (4.35-5.85); RED CELL DISTRIBUTION WIDTH 15.2 % (10.0-14.5); WHITE BLOOD COUNT 5.6 10^3/uL (4.3-11.0)
[2016-11-04 18:26] LABS: KETONES,URINE 3+ (NEGATIVE); LEUKOCYTE ESTERASE ,URINE 1+ (NEGATIVE); NITRITE,URINE NEGATIVE (NEGATIVE); PH,URINE 5 (5-9); PROTEIN,URINE 2+ (NEGATIVE); UROBILINOGEN,URINE 1 MG/DL (NORMAL)
[2016-11-04 18:34] LABS: BILIRUBIN,URINE 1+ (NEGATIVE)
[2016-11-04 18:39] LABS: SODIUM 141 MMOL/L (135-145)
[2016-11-04 18:40] LABS: ALANINE AMINOTRANSFERASE 38 U/L (0-55); ALBUMIN 4.1 GM/DL (3.2-4.5); ANION GAP 15 MMOL/L (5-14); ASPARTATE AMINO TRANSFERASE 98 U/L (5-34); BILIRUBIN,TOTAL 0.6 MG/DL (0.1-1.0); BLOOD UREA NITROGEN 11 MG/DL (7-18); BUN/CREATININE RATIO 14; CALCIUM 9.3 MG/DL (8.5-10.1); CARBON DIOXIDE 24 MMOL/L (21-32); CHLORIDE 102 MMOL/L (98-107); CREATININE SERUM 0.78 MG/DL (0.60-1.30); GFR ESTIMATED > 60; GLUCOSE 90 MG/DL (70-105); TOTAL PROTEIN 6.4 GM/DL (6.4-8.2)
[2016-11-04 18:43] LABS: POTASSIUM 2.5 MMOL/L (3.6-5.0)
--- NOTE | 2016-11-04 18:45 | Diagnostic Imaging Report ---
PROCEDURE: CT abdomen and pelvis without contrast. TECHNIQUE: Multiple contiguous axial images were obtained through the abdomen and pelvis without the use of intravenous contrast. INDICATION: Vomiting and abdominal pain. History of a cholecystectomy, appendectomy and hysterectomy. History of esophageal cancer. COMPARISON is made to a prior study from December 27, 2014. FINDINGS: The lung bases demonstrate mild linear scarring or atelectasis within the right lower lobe. This is not significantly changed from the prior study and scarring is favored. There is no focal infiltrate or evidence of a pleural or pericardial effusion. By CT imaging, there is no evidence of abnormal esophageal thickening. The visualized portion of mediastinum demonstrates no adenopathy. Noncontrast appearance of the liver, unremarkable. There is no intrahepatic biliary dilatation. The patient is status post cholecystectomy. Pancreas demonstrates mild atrophy but no focal abnormality or adjacent fluid or fat stranding. The spleen appears normal in size. There is no adrenal mass. The kidneys demonstrate small 2-3 mm nonobstructing stones within the lower calices. There is no hydronephrosis or evidence of a stone within the ureters. The urinary bladder is nondistended. There are prior surgical changes involving of the sigmoid colon. Diverticulosis is noted. There is no evidence of bowel obstruction and no focal abnormal bowel thickening is demonstrated. There is no free air or free fluid. There is no abscess. There is no abdominal or pelvic adenopathy. There are fat-containing inguinal hernias. Mild atherosclerotic calcification and a normal caliber aorta. No acute or suspicious osseous abnormalities are evident. There are multilevel degenerative endplate changes. IMPRESSION: 1. No CT evidence of an acute inflammatory obstructive process within the abdomen or pelvis. 2. Status post previous cholecystectomy and hysterectomy. There are also prior operative changes involving of the sigmoid colon. There is no bowel obstruction. Uncomplicated diverticulosis is noted. There is no focal inflammatory fat stranding present and there is no free fluid. No adenopathy is evident. Dictated by: Dictated on workstation # [id number]
[2016-11-04] MEDS ORDERED: RX-ONDANSETRON 4 MG ODT (ZOFRAN) PPK #4 PO STA (19:02)
[2016-11-04] MEDS ORDERED: POTASSIUM CHLORIDE INJ 20 MEQ in NS IV 1000 ML 1,000 ML IV ONE (19:02)
[2016-11-04] MEDS ORDERED: ONDA4TAB8 PO (19:10)
[2016-11-04] MEDS ORDERED: CEPH-507 PO (19:10)
[2016-11-04] MEDS ORDERED: ONDANSETRON 4 MG/2 ML (SDV) Z0FRAN IVP ONE (19:15)
[2016-11-04] MEDS ORDERED: cefTRIAXone INJECTION 1,000 MG in NS (IVPB) 50 ML IV ONE (19:15)
[2016-11-04 20:49] VITALS: BP 138/77
== END 2016-11-04 20:49 | disposition home or self-care (01) ==
LOC: EDUNIT# 16:43 → ER 16:45
DX: N39.0 Urinary tract infection, site not specified (principal); E87.6 Hypokalemia; K92.89 Other specified diseases of the digestive system; I10 Essential (primary) hypertension; E78.00 Pure hypercholesterolemia, unspecified; K21.9 Gastro-esophageal reflux disease without esophagitis; M19.90 Unspecified osteoarthritis, unspecified site; F41.9 Anxiety disorder, unspecified; F31.9 Bipolar disorder, unspecified; Z80.0 Family history of malignant neoplasm of digestive organs; Z82.49 Family history of ischemic heart disease and other diseases of the circulatory system; Z85.818 Personal history of malignant neoplasm of other sites of lip, oral cavity, and pharynx; Z87.448 Personal history of other diseases of urinary system; Z87.891 Personal history of nicotine dependence; Z90.49 Acquired absence of other specified parts of digestive tract; Z90.710 Acquired absence of both cervix and uterus; Z90.89 Acquired absence of other organs; Z93.0 Tracheostomy status; Z86.718 Personal history of other venous thrombosis and embolism
CPT/HCPCS: 36415; 74176; 80053; 81000; 85025; 87077; 87088; 87186; 96365; 96367; 96375

== ENCOUNTER 2016-11-30 22:17 | Emergency (ER) | payer MEDICARE ==
[~2016-11-30] VITALS: Ht 170.2 cm; Wt 86.2 kg
[~2016-11-30 22:17] MED LIST changes: +CEPH-507 PO; +ONDA4TAB8 PO
--- OUTSIDE RECORDS SUMMARY | 2016-11-30 23:12 | XMS REPORT | Clinical Summary ---
Author Author [facility] Organization [facility] Address Unknown Phone Unavailable Care Team Providers Care Provider Network Analyst Name Role Phone PCP Unavailable Source Comments Some departments are not documenting in the electronic medical record. If you do not see the information that you expected, contact Release of Information in the Health Information Management department at [phone] for further assistance in locating additional records.[facility] Allergies Active Allergy Reactions Severity Noted Date [...] disorder 02/16/2015 Bipolar I disorder ([facility]) 01/14/2015 PTSD (post-traumatic stress disorder) 11/29/2014 Panic attacks 07/10/2014 Dysphonia 01/25/2011 Laryngeal edema - post radiation therapy 01/25/2011 Oropharynx cancer (HCC) 08/26/2010 Personal history of irradiation 08/26/2010 Dysphagia 08/26/2010 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 Resolved Problems Problem Noted Date Resolved Date Suicidal ideation 01/09/2016 01/18/2016 Suicidal ideation 05/25/2015 06/10/2015 Major depressive disorder, recurrent, severe without psychotic features 02/201505/26/2015 ([facility]) Suicidal thoughts 01/27/2015 02/11/2015 Bipolar 1 disorder, depressed, severe ([facility]) 01/27/2015 02/14/2015 Depression with suicidal ideation 12/29/2014 01/14/2015 Bipolar 1 disorder, mixed, partial remission ([facility]) 06/12/2014 05/26/2015 Family History Medical History [...] Taken Blood Pressure 136/86 01/18/2016 9:30 AM [employer] Pulse 89 01/18/2016 9:30 AM [employer] Temperature 37 C (98.6 F) 01/18/2016 9:30 AM [facility] Respiratory Rate - - Oxygen Saturation 93% 01/18/2016 9:30 AM [facility] Inhaled Oxygen - - Concentration Weight 106.5 kg (234 lb 12.8 oz) 01/22/2016 11:20 AM [facility] Height 167.6 cm (5' 6") 01/22/2016 11:20 AM [facility] Body Mass Index 37.9 01/22/2016 11:20 AM [facility] Plan of Treatment Health Maintenance Due Date Last Done Comments HEPATITIS C SCREENING 1960 PHYSICAL (COMPREHENSIVE) 1966 EXAM PERTUSSIS VACCINE 1970 TETANUS VACCINE 1976 CERVICAL CANCER SCREENING 1989 BREAST CANCER SCREENING 1999 COLORECTAL CANCER 2009 SCREENING INFLUENZA VACCINE 12/04/2016 Results Not on filefrom Last 3 Months
[2016-12-01] MEDS ORDERED: NS IV 1000 ML 1,000 ML IV STA (00:23)
[2016-12-01] MEDS ORDERED: fentaNYL INJECTION 100 MCG/2 ML AMP IVP STA (00:23)
[2016-12-01] MEDS ORDERED: KETOROLAC 30 MG/ML VIAL IVP STA (00:23)
[2016-12-01] MEDS ORDERED: ONDANSETRON 4 MG/2 ML (SDV) Z0FRAN IVP ONE (00:30)
--- NOTE | 2016-12-01 00:31 | ED Abdominal Pain ---
General Chief Complaint: Back Problems Stated Complaint: LOWER BACK PAIN Source of Information: Patient Exam Limitations: No Limitations History of Present Illness Time Seen By Provider: 00:10 Initial Comments Here with report of left flank pain and left lower quadrant abdominal pain. Reported bloody urination earlier this week. Has been on Macrobid for possible urinary tract infection and initiated workup on this for possible kidney stone but had increasing pain over this afternoon and evening and presented do to left CVA pain. Denies fever or chills. Has had vomiting and diarrhea. That seems to resolve somewhat now but she still has some nausea. Overall doesn't feel well. Timing/Duration: 3-4 Days Severity/Quality: Moderate Location: LLQ, Flank Radiation: Flank Activities at Onset: None Modifying Factors: Worsens With Movement, Improves With Resting, Worsens With Urinating Associated Symptoms: Back Pain, No Chest Pain, No Fever/Chills, Fatigue, Nausea /Vomiting, No Shortness of Air, No Swelling/Mass in Abdomen, No Weakness Allergies and Home Medications Allergies Coded Allergies: codeine (Verified Allergy, Intermediate, RASH/SWELLING; PATIENT HAS RECEIVED MORPHINE W/O PROBLEMS, 11/04/16) Iodinated Contrast- Oral and IV Dye (Verified Allergy, Mild, 11/04/16) FEW HIVES, FULLNESS IN EARS Penicillins (Verified Allergy, Mild, NAUSEA/VOMITING, 11/04/16) SHE CAN TAKE AUGMENTIN FINE adhesive tape (Verified Allergy, Unknown, 11/04/16) latex (Verified Allergy, Unknown, 11/04/16) Home Medications Cephalexin 500 Mg Capsule, 500 MG PO BID for 4 Days, #8 Ref 0 Prescribed by: ROSELYN IBARRA on 11/04/161909 Clonazepam 0.5 Mg Tablet, 1 MG PO HS, (Reported) TAKES 2 (0.5MG) TABLETS Clonazepam 0.5 Mg Tablet, 0.5 MG PO AM, (Reported) Haloperidol 5 Mg Tablet, 5 MG PO DAILY, (Reported) Lamotrigine 25 Mg Tablet, 12.5 MG PO DAILY, #30 Ref 1 Prescribed by: JAJA SOTELO on 12/09/14 0911 Linaclotide 290 Mcg Capsule, 290 MCG PO DAILY PRN for CONSTIPATION, (Reported) Lisinopril 20 Mg Tablet, 20 MG PO DAILY, (Reported) Omeprazole 40 Mg Capsule.dr, 40 MG PO DAILY, (Reported) Ondansetron 4 Mg Tab.rapdis, 4 MG PO Q6H PRN for NAUSEA/VOMITING-1ST LINE for 7 Days, #10 Ref 0 Prescribed by: ROSELYN IBARRA on 11/04/160 Venlafaxine HCl 150 Mg Tab.er.24, 150 MG PO DAILY, (Reported) Review of Systems Constitutional: see HPI, No chills, No fever, weakness EENTM: No Symptoms Reported Respiratory: No Symptoms Reported Cardiovascular: No Symptoms Reported Gastrointestinal: See HPI, Abdominal Pain, Diarrhea, Nausea, Vomiting Genitourinary: See HPI, Hematuria, Pain Musculoskeletal: see HPI Skin: no symptoms reported All Other Systems Reviewed Negative Unless Noted: Yes Past Aczezru-Kanyha-Bhdauo Hx Patient Social History Alcohol Use: Denies Use Recreational Drug Use: No Smoking Status: Former Smoker Type Used: Cigarettes Former Smoker, Quit: Aug 11, 1986 2nd Hand Smoke Exposure: No Recent Foreign Travel: No Contact w/Someone Who Travel: No Recent Hopitalizations: No Immunizations Up To Date Tetanus Booster (TDap): Less than 5yrs PED Vaccines UTD: No Date of Pneumonia Vaccine: July 25, 2016 Date of Influenza Vaccine: Dec 14, 2015 Seasonal Allergies Seasonal Allergies: Yes Surgeries History of Surgeries: Yes (PEG TUBE, TRACH, COLON RESECTION, bunion sx, PORT REMOVED IN 2010, ) Surgeries: Appendectomy, Breast, Gallbladder, Hysterectomy, Orthopedic, Tonsillectomy Respiratory History of Respiratory Disorde: No Currently Using CPAP: No Cardiovascular History of Cardiac Disorders: Yes (CARDIAC CATH-NO STENTS) Cardiac Disorders: Deep Vein Thrombosis, High Cholesterol, Hypertension Neurological History of Neurological Disord: No Reproductive System Hx Reproductive Disorders: No Sexually Transmitted Disease: No HIV/AIDS: No Female Reproductive Disorders: Polycystic 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 Dis 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 Gastrointestinal History of Gastrointestinal Di: Yes Gastrointestinal Disorders: Gastroesophageal Reflux, Chronic Constipation, Diverticulosis Musculoskeletal History of Musculoskeletal Dis: Yes Musculoskeletal Disorders: Arthritis, Fibromyalgia Endocrine History of Endocrine Disorders: Yes HEENT Loss of Vision: Bilateral Hearing Impairment: Denies 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) Did You Recieve Any Treatments: Yes Type of Tx Receive: Chemotherapy, Radiation Psychosocial History of Psychiatric Problem: Yes Behavioral Health Disorders: Sleep Difficulties, Anxiety, Bipolar, Depression Integumentary History of Skin or Integumenta: No Blood Transfusions History of Blood Disorders: No Adverse Reaction to a Blood Tr: No Reviewed Nursing Assessment Reviewed/Agree w Nursing PMH: Yes Family Medical History Significant Family History: Heart Disease, Cancer, Hypertension, Psychiatric Problems Family Medial History: Alzheimer's disease 19 MOTHER Arthritis 19 MOTHER Cardiovascular disease 19 MOTHER Cataracts 19 MOTHER Dementia 19 MOTHER Diabetes mellitus 19 FATHER Headache disorder Hypercholesterolemia 19 FATHER Hypertension 19 FATHER Neoplasm 19 FATHER (PANCREATIC CANCER) Physical Exam Vital Signs Capillary Refill : General Appearance: WD/WN, no apparent distress HEENT: PERRL/EOMI, pharynx normal Neck: full range of motion, supple Respiratory: lungs clear, normal breath sounds Cardiovascular: regular rate, rhythm, no murmur Peripheral Pulses: 2+ Dorsalis Pedis (R), 2+ Left Dors-Pedis (L), 2+ Radial Pulses (R), 2+ Radial Pulses (L) Gastrointestinal: non tender, soft Extremities: non-tender, normal inspection Back: No CVA tenderness (R), CVA tenderness (L), No vertebral tenderness Neurologic/Psychiatric: alert, oriented x 3 Skin: normal color, warm/dry Progress/Results/Core Measures Results/Orders Lab Results Laboratory Tests Test 12/01/16 00:11 12/01/16 01:00 Range/Units White Blood Count 7.6 4.3-11.0 10^3/uL Red Blood Count 5.12 4.35-5.85 10^6/uL Hemoglobin 14.1 11.5-16.0 G/DL Hematocrit 42 35-52 % Mean Corpuscular Volume 81 80-99 FL Mean Corpuscular Hemoglobin 28 25-34 PG Mean Corpuscular Hemoglobin Concent 34 32-36 G/DL Red Cell Distribution Width 14.1 10.0-14.5 % Platelet Count 241 130-400 10^3/uL Mean Platelet Volume 9.3 7.4-10.4 FL Neutrophils (%) (Auto) 77 H 42-75 % Lymphocytes (%) (Auto) 12 12-44 % Monocytes (%) (Auto) 10 0-12 % Eosinophils (%) (Auto) 1 0-10 % Basophils (%) (Auto) 0 0-10 % Neutrophils # (Auto) 5.9 1.8-7.8 X 10^3 Lymphocytes # (Auto) 0.9 L 1.0-4.0 X 10^3 Monocytes # (Auto) 0.7 0.0-1.0 X 10^3 Eosinophils # (Auto) 0.1 0.0-0.3 10^3/uL Basophils # (Auto) 0.0 0.0-0.1 10^3/uL Sodium Level 140 135-145 MMOL/L Potassium Level 3.0 L 3.6-5.0 MMOL/L Chloride Level 103 98-107 MMOL/L Carbon Dioxide Level 22 21-32 MMOL/L Anion Gap 15 H 5-14 MMOL/L Blood Urea Nitrogen 11 7-18 MG/DL Creatinine 0.83 0.60-1.30 MG/DL Estimat Glomerular Filtration Rate > 60 BUN/Creatinine Ratio 13 Glucose Level 111 H 70-105 MG/DL Calcium Level 10.0 8.5-10.1 MG/DL Total Bilirubin 0.6 0.1-1.0 MG/DL Aspartate Amino Transf (AST/SGOT) 30 5-34 U/L Alanine Aminotransferase (ALT/SGPT) 34 0-55 U/L Alkaline Phosphatase 69 40-136 U/L Total Protein 6.5 6.4-8.2 GM/DL Albumin 4.0 3.2-4.5 GM/DL Urine Color YELLOW Urine Clarity CLEAR Urine pH 7 5-9 Urine Specific [place] 1.010 L 1.016-1.022 Urine Protein NEGATIVE NEGATIVE Urine Glucose (UA) NEGATIVE NEGATIVE Urine Ketones 1+ H NEGATIVE Urine Nitrite NEGATIVE NEGATIVE Urine Bilirubin NEGATIVE NEGATIVE Urine Urobilinogen NORMAL NORMAL MG/DL Urine Leukocyte Esterase 1+ H NEGATIVE Urine RBC (Auto) 3+ H NEGATIVE Urine RBC RARE /HPF Urine WBC 0-2 /HPF Urine Squamous Epithelial Cells 2-5 /HPF Urine Crystals PRESENT H /LPF Urine Calcium Oxalate Crystals FEW H /LPF Urine Bacteria TRACE /HPF Urine Casts PRESENT /LPF Urine Hyaline Casts 5-10 H /LPF Urine Mucus SMALL H /LPF Urine Culture Indicated NO My Orders Orders - ANDRA SAM MD Ct Abd/Pelvis Wo(Kidney Stone) (12/01/16 00:23) Cbc With Automated Diff (12/01/16 00:23) Comprehensive Metabolic Panel (12/01/16 00:23) Ua Culture If Indicated (12/01/16 00:23) Ondansetron Injection (Zofran Injectio (12/01/16 00:30) Ns Iv 1000 Ml (Sodium Chloride 0.9%) (12/01/16 00:23) Saline Lock/Iv-Start (12/01/16 00:23) Fentanyl Injection (Sublimaze Injection (12/01/16 00:23) Ketorolac Injection (Toradol Injection) (12/01/16 00:23) Abdomen/Kub 1view (12/01/16 05:35) Hydrocodone/Apap 7.5/325 Tab (Lortab 7. (12/01/16 05:35) Medications Given in ED Current Medications Medications Dose Ordered Sig/Keven Route Start Time Stop Time Status Last Admin Dose Admin Ondansetron HCl 4 mg ONCE ONCE IVP 12/01/16 00:30 12/01/16 00:31 DC 12/01/16 00:35 4 MG Progress Note : Progress Note Seen and evaluated. IV, labs, UA, normal saline 1 L bolus, Toradol 30 mg IV, fentanyl 50 g IV, Zofran 4 mg IV ordered. Monitor patient. Hydrocodone 7.5 mg one tab by mouth given for continuing pain. Patient does have a kidney stone noted on CT. KUB ordered. Instructed to follow-up with Dr. Cuenca. Discharged home with return precautions. Patient verbalize understanding instructions and agreement with plan. Diagnostic Imaging Diagonstic Imaging: CT Plain Films/CT/US/NM/MRI: abdomen, pelvis Comments 3 mm calculus seen within the distal left ureter which causes mild hydronephrosis and perinephric stranding. Additional nonobstructing calculus within the right kidney. Departure Impression Impression: Primary Impression: Left ureteral stone Disposition: HOME, SELF-CARE Condition: Improved Departure-Patient Inst. Decision time for Depature: 06:05 Referrals: MARCELINO RIVAS DO (PCP) Primary Care Physician DICK ANGULO APRN (Family) Primary Care Physician ILIANA CUENCA MD Patient Instructions: Kidney Stones (DC) Add. Discharge Instructions: All discharge instructions reviewed with patient and/or family. Voiced understanding. Drink plenty of fluids. Follow up with your doctor in a few days for recheck. Follow-up with Dr. Cuenca. Call his office this morning for appointment. Return for worse pain, fever, vomiting, weakness, breathing problems or other concerns as needed. Continue antibiotic as previously prescribed. Scripts Hydrocodone/Acetaminophen (Hydrocodon -Acetaminophen 5-325) 1 Each Tablet 1-2 EACH PO Q6H Y for PAIN-MODERATE, #20 TAB 0 Refills Prov: ANDRA SAM MD 12/01/16 Copy Copies To 1: ILIANA CUENCA MD, TIMOTHY D MD Dec 01, 2016 00:31
[2016-12-01 00:33] LABS: BASOPHILS % (AUTO) 0 % (0-10); EOSINOPHILS # (AUTO) 0.1 10^3/uL (0.0-0.3); EOSINOPHILS % (AUTO) 1 % (0-10); LYMPHOCYTES # (AUTO) 0.9 X 10^3 (1.0-4.0); LYMPHOCYTES % (AUTO) 12 % (12-44); MEAN CORPUSCULAR HEMOGLOBIN 28 PG (25-34); MEAN CORPUSCULAR HGB CONC 34 G/DL (32-36); MEAN CORPUSCULAR VOLUME 81 FL (80-99); MEAN PLATELET VOLUME 9.3 FL (7.4-10.4); MONOCYTES # (AUTO) 0.7 X 10^3 (0.0-1.0); MONOCYTES % (AUTO) 10 % (0-12); NEUTROPHILS # (AUTO) 5.9 X 10^3 (1.8-7.8); NEUTROPHILS % (AUTO) 77 % (42-75); PLATELET COUNT 241 10^3/uL (130-400); RED BLOOD COUNT 5.12 10^6/uL (4.35-5.85); RED CELL DISTRIBUTION WIDTH 14.1 % (10.0-14.5); WHITE BLOOD COUNT 7.6 10^3/uL (4.3-11.0)
[2016-12-01 00:42] LABS: ALANINE AMINOTRANSFERASE 34 U/L (0-55); ANION GAP 15 MMOL/L (5-14); ASPARTATE AMINO TRANSFERASE 30 U/L (5-34); BILIRUBIN,TOTAL 0.6 MG/DL (0.1-1.0); BLOOD UREA NITROGEN 11 MG/DL (7-18); BUN/CREATININE RATIO 13; CARBON DIOXIDE 22 MMOL/L (21-32); CHLORIDE 103 MMOL/L (98-107); CREATININE SERUM 0.83 MG/DL (0.60-1.30); GFR ESTIMATED > 60; GLUCOSE 111 MG/DL (70-105); SODIUM 140 MMOL/L (135-145); TOTAL PROTEIN 6.5 GM/DL (6.4-8.2)
[2016-12-01 01:08] LABS: BILIRUBIN,URINE NEGATIVE (NEGATIVE); KETONES,URINE 1+ (NEGATIVE); LEUKOCYTE ESTERASE ,URINE 1+ (NEGATIVE); NITRITE,URINE NEGATIVE (NEGATIVE); PH,URINE 7 (5-9); PROTEIN,URINE NEGATIVE (NEGATIVE); UROBILINOGEN,URINE NORMAL (NORMAL)
[2016-12-01 01:17] LABS: CALCIUM OXALATE CRYSTALS,UR FEW /LPF; WBC,URINE 0-2 /HPF
[2016-12-01] MEDS ORDERED: HYDROcodone/APAP 7.5 MG/325 MG (LORTAB, LORCET PLUS) TABLET PO STA (05:35)
[2016-12-01] MEDS ORDERED: HYDR-3812 PO (06:09)
[2016-12-01 06:13] VITALS: BP 127/85
--- NOTE | 2016-12-01 07:48 | Diagnostic Imaging Report ---
Supine abdomen at 6:13 a.m. INDICATION: Nephrolithiasis. FINDINGS: The CT abdomen/pelvis exam performed prior to this study suggested a partial obstruction of left collecting system due to a 3 mm calculus at the ureterovesical junction. On this study, the suspected obstructive calculus is again visualized. The small nonobstructive calculus within the right kidney seen on CT exam is difficult to appreciate on this study. There is some gas in both large and small bowel in a nonspecific fashion. There is no sign of bowel obstruction. There is no mass or organomegaly. There is mild curvature of the lumbar spine, convex to left. There is no acute bony abnormality noted. IMPRESSION: 1. The obstructive calculus involving the distal left ureter seen on CT exam is visualized on this study. 2. There is no acute abnormality identified otherwise. Dictated by: Dictated on workstation # [id number]
--- NOTE | 2016-12-01 08:35 | Diagnostic Imaging Report ---
PROCEDURE: CT urinary tract, rule out kidney stone. TECHNIQUE: Multiple contiguous axial images were obtained through the abdomen and pelvis without the use of intravenous contrast. INDICATION: Back pain. The recent CT abdomen/pelvis exam of 11/04/16 failed to show any sign of an acute abnormality. There were small (2-3 mm) nonobstructive calculi within both kidneys. In the interval since the prior exam, partial obstruction of the left collecting system has developed. This is due to a 3 mm calculus near the ureterovesical junction (image 146 of 179). Both the left ureter and the left renal pelvis are now dilated. There is still no evidence for obstruction of the right collecting system. The urinary bladder itself is grossly unremarkable. The remainder of the abdomen and pelvis has not changed significantly since the prior exam. The uterus and gallbladder are surgically absent and there has been a prior surgical procedure involving the sigmoid colon. The appendix is not well-visualized but there are no indirect signs of acute appendicitis. There is a fair amount of fecal material in the transverse colon. The liver was not visualized in its entirety as the dome was not included. Where visualized, the liver is unremarkable. The spleen, pancreas, adrenals, aorta and inferior vena cava are unremarkable for an acute abnormality. The stomach shows no definite abnormality. The lung bases are clear. The bone windows are unremarkable for a fracture or for a destructive lesion. IMPRESSION: 1. In the interval since the prior exam, the left collecting system has become partially obstructed due to a 3 mm calculus at the ureterovesical junction. 2. The overall appearance of the abdomen is otherwise stable. There is no acute abnormality identified otherwise. Dictated by: Dictated on workstation # [id number]
== END 2016-12-01 06:13 | disposition home or self-care (01) ==
LOC: EDUNIT# 22:17 → ER 22:19
DX: N20.1 Calculus of ureter (principal); E78.00 Pure hypercholesterolemia, unspecified; F41.9 Anxiety disorder, unspecified; F31.9 Bipolar disorder, unspecified; K21.9 Gastro-esophageal reflux disease without esophagitis; I10 Essential (primary) hypertension; Z85.818 Personal history of malignant neoplasm of other sites of lip, oral cavity, and pharynx; Z87.891 Personal history of nicotine dependence; Z80.0 Family history of malignant neoplasm of digestive organs; Z86.718 Personal history of other venous thrombosis and embolism; Z82.49 Family history of ischemic heart disease and other diseases of the circulatory system; Z87.448 Personal history of other diseases of urinary system; Z87.19 Personal history of other diseases of the digestive system; Z93.0 Tracheostomy status; Z90.49 Acquired absence of other specified parts of digestive tract; Z90.710 Acquired absence of both cervix and uterus; Z90.89 Acquired absence of other organs
CPT/HCPCS: 36415; 74000; 74176; 80053; 81000; 85025; 96361; 96374; 96375

== ENCOUNTER 2016-12-05 08:00 | Emergency (ER) | payer MEDICARE ==
[~2016-12-05] VITALS: Ht 170.2 cm; Wt 86.4 kg
[~2016-12-05 08:00] MED LIST changes: +HYDR-3812 PO
[2016-12-05] MEDS ORDERED: ONDANSETRON 4 MG/2 ML (SDV) Z0FRAN IM ONE (08:30)
[2016-12-05] MEDS ORDERED: KETOROLAC 30 MG/ML VIAL IM ONE (08:30)
[2016-12-05 08:46] LABS: BASOPHILS % (AUTO) 0 % (0-10); EOSINOPHILS # (AUTO) 0.1 10^3/uL (0.0-0.3); EOSINOPHILS % (AUTO) 1 % (0-10); LYMPHOCYTES # (AUTO) 0.7 X 10^3 (1.0-4.0); LYMPHOCYTES % (AUTO) 11 % (12-44); MEAN CORPUSCULAR HEMOGLOBIN 28 PG (25-34); MEAN CORPUSCULAR HGB CONC 34 G/DL (32-36); MEAN CORPUSCULAR VOLUME 81 FL (80-99); MEAN PLATELET VOLUME 9.2 FL (7.4-10.4); MONOCYTES # (AUTO) 0.7 X 10^3 (0.0-1.0); MONOCYTES % (AUTO) 11 % (0-12); NEUTROPHILS # (AUTO) 4.7 X 10^3 (1.8-7.8); NEUTROPHILS % (AUTO) 76 % (42-75); PLATELET COUNT 223 10^3/uL (130-400); RED CELL DISTRIBUTION WIDTH 14.1 % (10.0-14.5); WHITE BLOOD COUNT 6.1 10^3/uL (4.3-11.0)
[2016-12-05] MEDS ORDERED: HYDROcodone/APAP 5 MG/325 MG (LORTAB) TAB PO ONE (09:00)
[2016-12-05] MEDS ORDERED: ONDANSETRON 4 MG (ZOFRAN) ORAL DISSOLVE TAB PO ONE (09:00)
[2016-12-05 09:15] LABS: ALBUMIN 3.9 GM/DL (3.2-4.5); BILIRUBIN,TOTAL 0.6 MG/DL (0.1-1.0); CALCIUM 9.4 MG/DL (8.5-10.1); CREATININE SERUM 1.13 MG/DL (0.60-1.30); TOTAL PROTEIN 6.3 GM/DL (6.4-8.2)
[2016-12-05] MEDS ORDERED: KCL 20 MEQ TAB (K-DUR) PO ONE (09:30)
[2016-12-05 09:32] VITALS: BP 134/98
[2016-12-06] MEDS ORDERED: POTA10CA43 PO (12:44)
[2016-12-06] MEDS ORDERED: BUDE10.22 IH (12:44)
[2016-12-06] MEDS ORDERED: NITR100C10 PO (12:44)
[2016-12-06] MEDS ORDERED: LAMO200T PO (12:44)
[2016-12-06] MEDS ORDERED: ATOR20TA66 PO (12:44)
[2016-12-06] MEDS ORDERED: LEVO50TA6 PO (12:44)
[2016-12-06] MEDS ORDERED: PANT40TA3 PO (12:44)
[2016-12-06] MEDS ORDERED: AMLO10TA2 PO (12:44)
[2016-12-06] MEDS ORDERED: METF500T4 PO (12:44)
[2016-12-06] MEDS ORDERED: ESCI10TA55 PO (12:44)
== END 2016-12-05 09:32 | disposition home or self-care (01) ==
LOC: EDUNIT# 08:00 → ER 08:04
DX: N20.0 Calculus of kidney (principal); E78.00 Pure hypercholesterolemia, unspecified; I10 Essential (primary) hypertension; M19.90 Unspecified osteoarthritis, unspecified site; E11.9 Type 2 diabetes mellitus without complications; F41.9 Anxiety disorder, unspecified; F31.9 Bipolar disorder, unspecified; K21.9 Gastro-esophageal reflux disease without esophagitis; Z87.19 Personal history of other diseases of the digestive system; Z87.448 Personal history of other diseases of urinary system; Z82.49 Family history of ischemic heart disease and other diseases of the circulatory system; Z85.818 Personal history of malignant neoplasm of other sites of lip, oral cavity, and pharynx; Z86.718 Personal history of other venous thrombosis and embolism; Z80.0 Family history of malignant neoplasm of digestive organs; Z87.891 Personal history of nicotine dependence; Z93.0 Tracheostomy status; Z90.49 Acquired absence of other specified parts of digestive tract; Z90.89 Acquired absence of other organs
CPT/HCPCS: 36415; 74000; 80053; 85025; 96372; 99284

== ENCOUNTER 2016-12-06 12:25 | Outpatient (CLI) | payer MEDICARE ==
[~2016-12-06] VITALS: Ht 170.2 cm; Wt 80.1 kg
[2016-12-06] MEDS ORDERED: LEVO50TA6 PO (12:44)
[2016-12-06] MEDS ORDERED: LAMO200T PO (12:44)
[2016-12-06] MEDS ORDERED: AMLO10TA2 PO (12:44)
[2016-12-06] MEDS ORDERED: BUDE10.22 IH (12:44)
[2016-12-06] MEDS ORDERED: ATOR20TA66 PO (12:44)
[2016-12-06] MEDS ORDERED: METF500T4 PO (12:44)
[2016-12-06] MEDS ORDERED: NITR100C10 PO (12:44)
[2016-12-06] MEDS ORDERED: POTA10CA43 PO (12:44)
[2016-12-06] MEDS ORDERED: ESCI10TA55 PO (12:44)
[2016-12-06] MEDS ORDERED: PANT40TA3 PO (12:44)
[2016-12-06 12:52] VITALS: BP 133/74
[2016-12-07] MEDS ORDERED: HYDR-3874 PO (13:39)
[2016-12-07] MEDS ORDERED: PHEN-640 PO (13:39)
[2016-12-07] MEDS ORDERED: TAMS0.4C98 PO (13:39)
[2016-12-07] MEDS ORDERED: NITR-65 PO (13:39)
== END 2016-12-06 14:04 ==
LOC: PREOP 12:25
PROVIDERS: ATTEND Urology
DX: Z01.818 Encounter for other preprocedural examination (principal); N20.1 Calculus of ureter
CPT/HCPCS: 87081

== ENCOUNTER 2016-12-07 07:18 | Day surgery (SDC) | payer MEDICARE ==
[~2016-12-07] VITALS: Ht 170.2 cm; Wt 80.1 kg
[~2016-12-07 07:18] MED LIST changes: +AMLO10TA2 PO; +BUDE10.22 IH; +ESCI10TA55 PO; +LAMO200T PO; +LEVO50TA6 PO; +METF500T4 PO; +NITR100C10 PO; +PANT40TA3 PO; +POTA10CA43 PO
--- OUTSIDE RECORDS SUMMARY | 2016-12-07 07:24 | XMS REPORT | Clinical Summary ---
Author Author [facility] Organization [facility] Address Unknown Phone Unavailable Care Team Providers Care Analysis Reporting Developer Name Role Phone PCP Unavailable Source Comments Some departments are not documenting in the electronic medical record. 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 Bipolar I disorder (FORM[facility]) 01/14/2015 PTSD (post-traumatic stress disorder) 11/29/2014 Panic attacks 07/10/2014 Dysphonia 01/25/2011 Laryngeal edema - post radiation therapy 01/25/2011 Oropharynx cancer (HCC) 08/26/2010 Personal history of irradiation 08/26/2010 Dysphagia 08/26/2010 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 Resolved Problems Problem Noted Date Resolved Date Suicidal ideation 01/09/2016 01/18/2016 Suicidal ideation 05/25/2015 06/10/2015 Major depressive disorder, recurrent, severe without psychotic features 02/201505/26/2015 (FORMERLY [facility]) Suicidal thoughts 01/27/2015 02/11/2015 Bipolar 1 disorder, depressed, severe ([facility]) 01/27/2015 02/14/2015 Depression with suicidal ideation 12/29/2014 01/14/2015 Bipolar 1 disorder, mixed, partial remission ([facility]) 06/12/2014 05/26/2015 Family History Medical History Relation [...] Taken Blood Pressure 136/86 01/18/2016 9:30 AM 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 Pulse 89 01/18/2016 9:30 AM 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 OPERATOR Temperature 37 C (98.6 F) 01/18/2016 9:30 AM 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 OPERATOR Respiratory Rate - - Oxygen Saturation 93% 01/18/2016 9:30 AM 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 OPERATOR Inhaled Oxygen - - Concentration Weight 106.5 kg (234 lb 12.8 oz) 01/22/2016 11:20 AM 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 OPERATOR Height 167.6 cm (5' 6") 01/22/2016 11:20 AM 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 OPERATOR Body Mass Index 37.9 01/22/2016 11:20 AM 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 OPERATOR Plan of Treatment Health Maintenance Due Date Last Done Comments HEPATITIS C SCREENING 1959 PHYSICAL (COMPREHENSIVE) 1966 EXAM PERTUSSIS VACCINE 1970 TETANUS VACCINE 1976 CERVICAL CANCER SCREENING 1989 BREAST CANCER SCREENING 1999 COLORECTAL CANCER 2009 SCREENING INFLUENZA VACCINE 12/04/2016 Results Not on filefrom Last 3 Months
[2016-12-07] MEDS ORDERED: NS (IVPB) 0 ML ONE (07:45)
[2016-12-07] MEDS ORDERED: cefTRIAXone 1 GM (ROCEPHIN) VIAL ONE ×2 (07:45→07:46)
[2016-12-07] MEDS ORDERED: NS (IVPB) 50 ML ONE (07:46)
[2016-12-07 08:00] VITALS: BP 129/55
[2016-12-07] MEDS ORDERED: cefTRIAXone 1 GM/NS 50 ML IVPB IV ONE ×2 (08:00)
[2016-12-07] MEDS ORDERED: CATHETER FLUSH 10 ML SYR IV PRN (08:00)
[2016-12-07] MEDS ORDERED: FAMOTIDINE 20MG/2ML IV (PEPCID) IV ONE (08:30)
[2016-12-07] MEDS ORDERED: ONDANSETRON 4 MG/2 ML (SDV) Z0FRAN IV ONE (08:30)
[2016-12-07] MEDS: LACTATED RINGERS 1,000 ML IV PRN ×2 (08:31→11:35)
--- NOTE | 2016-12-07 08:32 | Progress Note-Pre Operative ---
Pre-Operative Progress Note H&P Reviewed The H&P was reviewed, patient examined and no changes noted. Date Seen by Provider: Dec 07, 2016 Time Seen by Provider: 08:31 Date H&P Reviewed: Dec 07, 2016 Time H&P Reviewed: 08:31 Pre-Operative Diagnosis: LT DISTAL URETERAL STONE ILIANA CUENCA MD Dec 07, 2016 8:32 am
--- NOTE | 2016-12-07 08:33 | Progress Note-Post Operative ---
Post-Operative Progess Note Surgeon (s)/Computer Forensic Specialist (s) Surgeon ILIANA CUENCA MD Computer Forensic Specialist: N/A Pre-Operative Diagnosis LT DISTAL URETERAL STONE Post-Operative Diagnosis SAME Procedure & Operative Findings Date of Procedure 12/07/16 Procedure Performed/Findings CYSTO, LT URETEROSCOPY, AND JJ STENT Anesthesia Type GENERAL Estimated Blood Loss Estimated blood loss (mL): N/A Specimens/Packing Specimens Removed N/A Packing: N/A ILIANA CUENCA MD Dec 07, 2016 8:33 am
--- NOTE | 2016-12-07 08:35 | Discharge Inst-Urology ---
Discharge Inst-Urology Discharge Medications New, Converted, or Re-newed RX: RX on Chart Patient Instructions/Follow Up Plan Please make appointment to been seen in office Tuesday 12/12 Increase oral fluids for 48 hours and then as needed. Diet and Activity as tolerated. If questions or concerns contact your physician Or seek help at emergency department. ILIANA CUENCA MD Dec 07, 2016 8:35 am
[2016-12-07] MEDS ORDERED: SEVOFLURANE (ULTANE) 15 ML INHAL SOLN ONE (10:32)
[2016-12-07] MEDS ORDERED: proPOfol 200 MG/20 ML (DIPRIVAN) VIAL IV ONE (10:32)
[2016-12-07] MEDS ORDERED: LIDOCAINE PF 2% 5 ML (XYLOCAINE) VIAL ONE (10:32)
[2016-12-07] MEDS ORDERED: MIDAZOLAM 2 MG/2 ML (VERSED) VIAL ONE (10:32)
[2016-12-07] MEDS ORDERED: LACTATED RINGERS 1,000 ML IV ONE ×2 (10:32→11:26)
[2016-12-07] MEDS ORDERED: ROCURONIUM 50 MG/5 ML (ZEMURON) VIAL IV ONE (10:33)
[2016-12-07] MEDS ORDERED: morphine INJ 10 MG/ML 1ML (SYR OR VIAL) IVP PRN (10:45)
[2016-12-07] MEDS ORDERED: ONDANSETRON 4 MG/2 ML (SDV) Z0FRAN IVP PRN (10:45)
[2016-12-07] MEDS ORDERED: GLYCOPYRROLATE 0.2 MG/ML (ROBINUL) 2 ML VIAL ONE (11:28)
[2016-12-07] MEDS ORDERED: NEOSTIGMINE (BLOXIVERZ ) 1 MG/1ML 10 ML VIAL ONE (11:28)
[2016-12-07] MEDS ORDERED: fentaNYL INJECTION 100 MCG/2 ML AMP ONE (11:58)
[2016-12-07] MEDS: fentaNYL INJECTION 100 MCG/2 ML AMP IVP PRN ×2 (12:05→12:12)
[2016-12-07 12:35] VITALS: BP 101/44
[2016-12-07 13:05] VITALS: BP 113/76
[2016-12-07] MEDS ORDERED: HYDROcodone/APAP 5 MG/325 MG (LORTAB) TAB PO ONE (13:30)
[2016-12-07 13:35] VITALS: BP 111/67
[2016-12-07] MEDS ORDERED: TAMS0.4C98 PO (13:39)
[2016-12-07] MEDS ORDERED: NITR-65 PO (13:39)
[2016-12-07] MEDS ORDERED: PHEN-640 PO (13:39)
[2016-12-07] MEDS ORDERED: HYDR-3874 PO (13:39)
--- NOTE | 2016-12-07 23:16 | OPERATIVE REPORT ---
DATE OF SERVICE: 12/07/2016 PREOPERATIVE DIAGNOSIS: Left distal ureteral stone. POSTOPERATIVE DIAGNOSIS: Left distal ureteral stone. OPERATION PERFORMED: Cystoscopy, left ureteroscopy, and insertion of left double-J stent. SURGEON: Samuel Cuenca MD ANESTHESIA: General. COMPLICATIONS: None. DESCRIPTION OF PROCEDURE: Under satisfactory general anesthesia, the patient in lithotomy position, genitalia were prepped and draped in usual sterile fashion. Cystoscope was introduced in the bladder. Examination of the bladder was normal except for a sluggish efflux on the left side. Using the foroblique lens, I dilated the left ureteral orifice intramural portion to the level of the stone that was felt to be kind of impacted. I passed a 6.9-[place] MyoSure ureteroscope; however, I could not get to the level of the stone. The ureter size did not accommodate well the 6.9-[place]. So I removed it, passed the cystoscope, inserted a 6-[place] 26-cm double-J stent, bypassed the stone. I felt that I either disimpacted it or broke it up, but the stent went nicely all the way through the left renal pelvis guided fluoroscopically. The stent wire was removed and the stent was seen to hang nicely proximally fluoroscopically and distally endoscopically. Bladder was evacuated and cystoscope was removed. The patient tolerated the procedure and anesthesia well and was sent to the recovery room in stable condition. PLAN: We will see her back next Monday and if she has not passed the stone on her own, we will discuss the possibility of either next Monday when the ESWL machine is here, we will retry again the ureteroscope after the stent may have dilated the ureter and accommodate the scope better. If not, we will try to do ESWL if possible. Otherwise, I will send the patient to an institution that has a flexible ureteroscopy. Job ID: [id number] DocumentID: [id number] Dictated Date: 12/07/2016 11:33:25 Warp Tying Machine Tender Date: 12/07/2016 23:05:09 Dictated By: SAMUEL CUENCA MD [facility]
== END 2016-12-07 13:55 | disposition home or self-care (01) ==
LOC: SDC 07:18 → EEVIPCON 10:15 → SDC 13:55
PROVIDERS: ATTEND Urology
DX: Z85.01 Personal history of malignant neoplasm of esophagus; I10 Essential (primary) hypertension; E11.9 Type 2 diabetes mellitus without complications; F31.9 Bipolar disorder, unspecified; F41.9 Anxiety disorder, unspecified; N20.1 Calculus of ureter; Z79.899 Other long term (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; Z87.891 Personal history of nicotine dependence; K21.9 Gastro-esophageal reflux disease without esophagitis
CPT/HCPCS: 82962

== ENCOUNTER 2017-08-21 13:42 | Outpatient (CLI) | payer MEDICARE ==
[~2017-08-21] VITALS: Ht 170.2 cm; Wt 80.7 kg
[~2017-08-21 13:42] MED LIST changes: +ACHD5005 PO; -HYDR-3812 PO; +HYDR-3870 PO; -LAMO200T PO; +LAMO200T2 PO; -METF500T4 PO; +METF500T5 PO; +NITR-65 PO; +PHEN-640 PO; +TAMS0.4C98 PO
[2017-08-21] MEDS ORDERED: ESCI20TA45 PO (13:46)
[2017-08-21] MEDS ORDERED: GABA-488 PO (13:47)
[2017-08-21] MEDS ORDERED: LURA40TA3 PO (13:47)
== END 2017-08-21 13:52 | disposition home or self-care (01) ==
LOC: PREOP 13:42
PROVIDERS: ATTEND Surgery
DX: Z01.818 Encounter for other preprocedural examination (principal)

== ENCOUNTER 2017-09-29 12:25 | Emergency (ER) | payer MEDICARE ==
[~2017-09-29] VITALS: Ht 170.2 cm; Wt 81.6 kg
[2017-09-29] MEDS ORDERED: raNItidine 50 MG/2 ML INJ (ZANTAC) IJ SCH (12:30)
[2017-09-29] MEDS ORDERED: diphenhydrAMINE 50 MG/ML INJ (BENADRYL) IVP ONE (12:30)
[2017-09-29] MEDS ORDERED: methylPREDNISolone 125 MG (Solu-MEDROL) VIAL IVP ONE (12:30)
--- NOTE | 2017-09-29 12:59 | ED General ---
General Chief Complaint: Allergic Reaction Stated Complaint: ALLERGIC REACTION TO CONTRAST Source of Information: Patient Exam Limitations: No Limitations History of Present Illness Date Seen by Provider: Sep 29, 2017 Time Seen by Provider: 12:56 Initial Comments to ER with reports of an allergic reaction. She received a minute amount of IV contrast for an outpatient CT today. She has a known allergy to this but was premedicated with a dose of what she believes was a steroid both last night and this morning. No Benadryl. Shortly after receiving this she developed a cough, sneezing, weird sensation in her throat and itchiness diffusely. She was brought to the emergency room Timing/Duration: 1/2 Hour Severity: Mild Allergies and Home Medications Allergies Coded Allergies: codeine (Verified Allergy, Intermediate, RASH/SWELLING; PATIENT HAS RECEIVED MORPHINE W/O PROBLEMS, 12/06/16) Iodinated Contrast- Oral and IV Dye (Verified Allergy, Mild, 12/06/16) FEW HIVES, FULLNESS IN EARS adhesive tape (Verified Allergy, Unknown, 12/06/16) latex (Verified Allergy, Unknown, 12/06/16) Penicillins (Verified Adverse Reaction, Mild, NAUSEA/VOMITING, 12/07/16) SHE CAN TAKE AUGMENTIN FINE Home Medications Amlodipine Besylate 10 Mg Tablet, 10 MG PO DAILY, (Reported) Atorvastatin Calcium 20 Mg Tablet, 20 MG PO DAILY, (Reported) Budesonide/Formoterol Fumarate 10.2 Gm Hfa.aer.ad, 2 PUFF IH PRN PRN for SHORTNESS OF BREATH, (Reported) Escitalopram Oxalate 20 Mg Tablet, 20 MG PO DAILY, (Reported) Gabapentin 300 Mg Capsule, 300 MG PO QID, (Reported) Lamotrigine 200 Mg Tablet, 200 MG PO DAILY, (Reported) Levothyroxine Sodium 50 Mcg Tablet, 50 MCG PO DAILY, (Reported) Lurasidone HCl 40 Mg Tablet, 40 MG PO DAILY, (Reported) Pantoprazole Sodium 40 Mg Tablet.dr, 40 MG PO DAILY, (Reported) Patient Home Medication List Home Medication List Reviewed: Yes Review of Systems Constitutional: see HPI EENTM: see HPI, other (sneezing) Respiratory: see HPI, cough Cardiovascular: no symptoms reported Genitourinary: no symptoms reported Musculoskeletal: no symptoms reported Skin: see HPI Psychiatric/Neurological: No Symptoms Reported Past [id number]-Mwzdnk Hx Patient Social History Type Used: Cigarettes Former Smoker, Quit: Aug 11, 1986 2nd Hand Smoke Exposure: No Recent Foreign Travel: No Contact w/Someone Who Travel: No Recent Hopitalizations: No Immunizations Up To Date Tetanus Booster (TDap): Less than 5yrs PED Vaccines UTD: No Date of Pneumonia Vaccine: July 25, 2016 Date of Influenza Vaccine: July 25, 2016 Seasonal Allergies Seasonal Allergies: Yes Past Medical History Surgeries: Yes (PEG TUBE, TRACH, COLON RESECTION, bunion sx, PORT REMOVED IN 2010, EGD) Appendectomy, Breast, Gallbladder, Hysterectomy, Orthopedic, Tonsillectomy, Tubal Ligation Respiratory: No Chronic Bronchitis Currently Using CPAP: No Cardiac: Yes (CARDIAC CATH-NO STENTS) Deep Vein Thrombosis, High Cholesterol, Hypertension Neurological: No Headaches /Migraines Reproductive Disorders: No Female Reproductive Disorders: Polycystic Ovarian Dis DIRECTOR OF INSTITUTIONAL GIVING History: Hysterectomy Sexually Transmitted Disease: No HIV/AIDS: No Kidney Stones Gastrointestinal: Yes Gastroesophageal Reflux, Chronic Constipation, Diverticulosis Musculoskeletal: Yes Arthritis, Fibromyalgia Endocrine: Yes Diabetes, Non-Insulin dep Loss of Vision: Bilateral Hearing Impairment: Denies Cancer: Yes (OROPHARNYX CANCER) Did You Recieve Any Treatments: Yes What Type of Treatment Did You: Chemotherapy, Radiation, Surgical Intervention Psychosocial: Yes Sleep Difficulties, Anxiety, Bipolar, Depression Integumentary: No Blood Disorders: No Adverse Reaction/Blood Tranf: No Family Medical History Alzheimer's disease 19 MOTHER Arthritis 19 MOTHER Cardiovascular disease 19 MOTHER Cataracts 19 MOTHER Dementia 19 MOTHER Diabetes mellitus 19 FATHER Headache disorder Hypercholesterolemia 19 FATHER Hypertension 19 FATHER Neoplasm 19 FATHER (PANCREATIC CANCER) Heart Disease, Cancer, Hypertension, Psychiatric Problems Physical Exam Vital Signs Vital Signs - First Documented 09/29/17 09/29/17 09/29/17 12:40 12:58 13:40 Temp 98.6 Pulse 82 Resp 20 B/P (MAP) 132/75 (94) Pulse Ox 99 Capillary Refill : Height, Weight, BMI Height: 5'7.00" Weight: 178lbs. 0.0oz. 80.885124tu; 27.9 BMI Method:Stated General Appearance: No Apparent Distress, WD/WN, Other (alert and oriented no distress, questionable wheal overlying the left scapula) HEENT: PERRL/EOMI, TMs Normal, Normal ENT Inspection, Pharynx Normal, Other ( no stridor no wheezing no swelling of the oropharynx) Respiratory: Normal Breath Sounds, No Accessory Muscle Use, No Respiratory Distress Cardiovascular: Regular Rate, Rhythm, Normal Peripheral Pulses Gastrointestinal: Non Tender, Soft Extremity: Normal Capillary Refill, Normal Inspection Neurologic/Psychiatric: Alert, Oriented x3 Progress/Results/Core Measures Suspected Sepsis SIRS Temperature:98.6 Pulse: Respiratory Rate: Blood Pressure / Mean: Results/Orders My Orders Orders - MARTHA LEE APRN Methylprednisolone Sod Succ (Solu-Medrol (09/29/17 12:30) Diphenhydramine Injection (Benadryl Inje (09/29/17 12:30) Ranitidine Injection (Zantac Injection) (09/29/17 12:30) Medications Given in ED Current Medications Medications Dose Ordered Sig/Keven Route Start Time Stop Time Status Last Admin Dose Admin Diphenhydramine HCl 25 mg ONCE ONCE IVP 09/29/17 12:30 09/29/17 12:31 DC 09/29/17 12:40 25 MG Methylprednisolone Sodium Succinate 125 mg ONCE ONCE IVP 09/29/17 12:30 09/29/17 12:31 DC 09/29/17 12:40 125 MG Vital Signs/I&O 09/29/17 09/29/17 09/29/17 12:40 12:58 13:40 Temp 98.6 98.2 98.2 Pulse 82 82 Resp 20 20 B/P (MAP) 132/75 (94) 132/75 (94) Pulse Ox 99 Capillary Refill : Departure Impression Primary Impression: Allergic reaction to contrast dye Disposition: 01 HOME, SELF-CARE Condition: Stable Departure-Patient Inst. Decision time for Depature: 12:58 Referrals: [facility] (PCP) Primary Care Physician DICK ANGULO APRN (Family) Primary Care Physician Patient Instructions: Contrast Dye Allergy Add. Discharge Instructions: 1. Take one Benadryl every 4-6 hours as needed for the rest of today. Return to the emergency room for any concerns All discharge instructions reviewed with patient and/or family. Voiced understanding. MARTHA LEE APRN Sep 29, 2017 12:59
[2017-09-29 13:40] VITALS: BP 132/75
--- OUTSIDE RECORDS SUMMARY | 2017-09-29 18:41 | XMS REPORT ---
Author Author ANGULODICK Casillas Organization [facility] Address [address] [place] [address] Care Team Providers Care Layer Out Plate Glass Name Role Phone DICK ANGULO Unavailable PROBLEMS Type Condition ICD9-CM Code WAQ15-OK Code Onset Dates Condition Status SNOMED Code Problem Gastroesophageal reflux disease with esophagitis K21.0 Active 711322594 Problem Polysubstance (including opioids) dependence with physiol dependence F19.20 Active 38320367 Problem History of esophageal cancer Z85.01 Active 322283204 Problem Seasonal allergies J30.2 Active 999378646 Problem Pre-diabetes R73.03 Active 066132400 Problem GERD (gastroesophageal reflux disease) K21.9 Active 054092495 Problem Borderline personality disorder F60.3 Active 59510422 Problem Pure hypercholesterolemia E78.00 Active 240515418 Problem Nephrolithiasis N20.0 Active 37798439 Problem STATE HEP A (ADULT) DX V05.3 Active 228967948 Problem Bipolar 1 disorder, depressed, moderate F31.32 Active 44144083 Problem Anxiety F41.9 Active 69115722 Problem Vitamin D insufficiency E55.9 Active 330179272 Problem Essential hypertension I10 Active 75820073 Problem Elevated serum creatinine R79.89 Active 524767239 Problem Acquired hypothyroidism E03.9 Active 719367792 ALLERGIES No Information ENCOUNTERS Encounter Location Date Diagnosis [facility] [address] [facility] [id number] [address] Oct, [facility] [address] [id number] [address] Sep, [facility] [address] [address] Sep, [facility] [address] [id number] [address] Sep, Bipolar 1 disorder, depressed, moderate F31.32 [facility] [id number] [place] [address] 72138- 5939 Sep, Bipolar 1 disorder, depressed, moderate F31.32 [facility] [address] [address]- 6865 Sep, Essential hypertension I10 ; Acquired hypothyroidism E03.9 ; Anxiety F41.9 ; Chronic nausea R11.0 and Irritant contact dermatitis due to plants, except food L24.7 [place] [address] 20167- 4458 Aug, Bipolar 1 disorder, depressed, moderate F31.32 [place] [address] 65261- 1093 Aug, Bipolar 1 disorder, depressed, moderate F31.32 [place] [address] 30818- 5094 Aug, Bipolar 1 disorder, depressed, moderate F31.32 [place] [address] 03365- 2484 July, Candidal dermatitis B37.2 [place] [address] 41120- 8899 July, Acquired hypothyroidism E03.9 [place] [address] [id number] [place] [address] 04648- 2859 July, Bipolar 1 disorder, depressed, moderate F31.32 [facility] [id number] [place] [address] 13340 -2610 July, Seasonal allergies J30.2 [place] [address] 47376- 9076 July, Bipolar 1 disorder, depressed, moderate F31.32 [place] [address] 85413- 2715 Jun, Pre-diabetes R73.03 [place] [id number] [place] [id number] Jun, Bipolar 1 disorder, depressed, moderate F31.32 ; Anxiety F41.9 ; Borderline personality disorder F60.3 ; Polysubstance (including opioids ) dependence with physiol dependence F19.20 and Other specified abnormal findings of blood chemistry R79.89 [place] [address] [place] [id number]- 0936 Jun, Bipolar 1 disorder, depressed, moderate F31.32 [place] [address] [place] 289056- 6955 May, Bipolar 1 disorder, depressed, moderate F31.32 [place] [address] 289057- 5986 May, Bipolar 1 disorder, depressed, moderate F31.32 [place] [address] 289054- 2265 May, [place] [address] [place] [id number]- 9846 May, [place] [address] [place] [id number]- 1941 May, Bipolar 1 disorder, depressed, moderate F31.32 [place] [address] [place] [id number]- 2676 May, Bipolar 1 disorder, depressed, moderate F31.32 [place] [id number] [place] [id number] May, Other specified abnormal findings of blood chemistry R79.89 [place] [address] [place] [id number]- 7657 08 May, 2017 Essential hypertension I10 ; Acquired hypothyroidism E03.9 ; Gastroesophageal reflux disease with esophagitis K21.0 ; Hair loss L65.9 ; Hypokalemia, gastrointestinal losses E87.6 ; Pre-diabetes R73.03 ; Candidal dermatitis B37.2 and Pure hypercholesterolemia E78.00 [place] [id number] [place] [address] 46244- 4643 Apr, Bipolar 1 disorder, depressed, moderate F31.32 [place] [address] 47652- 3415 Apr, Bipolar 1 disorder, depressed, moderate F31.32 [place] [address] 38545- 5422 Apr, Bipolar 1 disorder, depressed, moderate F31.32 and Anxiety F41.9 [facility] [address] 36637 -3296 Mar, Encounter for immunization Z23 ; Fall, initial encounter W19.XXXA ; Rib pain on left side R07.81 and Left hip pain M25.552 [place] [address] 36525- 5294 Mar, Bipolar 1 disorder, depressed, moderate F31.32 and Anxiety F41.9 [place] [address] 43077- 9759 Mar, Bipolar 1 disorder, depressed, moderate F31.32 ; Anxiety F41.9 ; Borderline personality disorder F60.3 and Polysubstance (including opioids) dependence with physiol dependence F19.20 [place] [address] 29233- 4455 Mar, Bipolar 1 disorder, depressed, moderate F31.32 and Anxiety F41.9 [facility] [address] 05849 -5868 Feb, Irritant contact dermatitis, unspecified trigger L24.9 [place] [address] 16880- 6169 Feb, [place] [address] 87730- 3091 Feb, [place] [address] [place] [address]- 3865 14 Feb, 2017 Bipolar 1 disorder, depressed, moderate F31.32 and Anxiety F41.9 [place] [address] [place] 289058- 4899 14 Feb, 2017 Acute non-recurrent maxillary sinusitis J01.00 [facility] [address] 587668- 5696 11 Feb, 2017 [place] [address] [place] 289056- 0012 Feb, Bipolar 1 disorder, depressed, moderate F31.32 [place] [address] [place] 289050- 1792 29 Jan, 2017 [place] [address] [place] [id number]- 4020 29 Jan, 2017 Bipolar 1 disorder, depressed, moderate F31.32 ; Anxiety F41.9 ; Borderline personality disorder F60.3 and Polysubstance (including opioids) dependence with physiol dependence F19.20 [place] [id number] [place] [address] 70035- 3409 27 Jan, 2017 Bipolar 1 disorder, depressed, moderate F31.32 and Anxiety F41.9 [place] [id number] [place] [address] 31349- 1186 20 Jan, 2017 Bipolar 1 disorder, depressed, moderate F31.32 ; Anxiety F41.9 ; Borderline personality disorder F60.3 and Polysubstance (including opioids) dependence with physiol dependence F19.20 [place] [id number] [place] [address] 30039- 2054 13 Jan, 2017 Bipolar 1 disorder, depressed, moderate F31.32 and Anxiety F41.9 [place] [address] [place] [id number]- 6647 23 Dec, 2016 Hypokalemia, gastrointestinal losses E87.6 ; GERD ( gastroesophageal reflux disease) K21.9 and Bipolar 1 disorder, depressed, moderate F31.32 [place] [id number] [place] [address] 55426- 2118 Dec, Bipolar 1 disorder, depressed, moderate F31.32 and Anxiety F41.9 [facility] WALK IN [place] [address] 20374 -2731 Dec, [place] [address] 36723- 1112 Dec, [facility] WALK IN [address] [address] -[address] Dec, Fall (on) (from) other stairs and steps, initial encounter W10.8XXA ; Laceration of left lower extremity, initial encounter S81.812A ; Contusion of right knee, initial encounter S80.01XA and Contusion of right shoulder, initial encounter S40.011A [address] 7[address]50- 2169 Dec, Bipolar 1 disorder, depressed, moderate F31.32 ; Anxiety F41.9 ; Borderline personality disorder F60.3 and Polysubstance (including opioids) dependence with physiol dependence F19.[address] 31951- 7786 Dec, Bipolar 1 disorder, depressed, moderate F31.32 and Anxiety F41.9 [place] [id number] [place] [address] 84751- 1554 Dec, [address] 37556- 2951 Dec, Hospital discharge follow-up Z09 ; Nephrolithiasis N20.0 ; Essential hypertension I10 ; Gastroesophageal reflux disease with esophagitis K21.0 and Anxiety F41.[address] 57489- 0955 Nov, [facility] WALK IN [address] 93040 -1092 24 Sep, 2017 Dysuria R30.0 and Acute cystitis with hematuria N30.01 [facility] [id number] [place] [address] 34254 -7117 24 Nov, 2016 [place] [address] [place] 289059- 0085 19 Nov, 2016 [facility] [address] 52507- 2874 19 Nov, 2016 Gastroesophageal reflux disease with esophagitis K21.0 ; Hypercholesteremia E78.00 and Acquired hypothyroidism E03.9 [facility] [address] 18073 -3036 18 Nov, 2016 Left wrist pain M25.532 and Contusion of left wrist, initial encounter S60.212A [place] [address] 19909- 5657 18 Nov, 2016 Bipolar 1 disorder, depressed, moderate F31.32 ; Anxiety F41.9 ; Borderline personality disorder F60.3 and Polysubstance (including opioids) dependence with physiol dependence F19.20 [facility] [address] 58668 -9579 15 Nov, 2016 Abdominal pain R10.9 and GERD (gastroesophageal reflux disease) K21.9 [place] [address] 66447- 9744 12 Nov, 2016 Hypokalemia, gastrointestinal losses E87.6 [place] [address] 76105- 1223 11 Nov, 2016 Dehydration E86.0 ; Hypokalemia, gastrointestinal losses E87.6 and Vaginal candidiasis B37.3 [place] [address] 43120- 2970 08 Nov, 2016 Abnormal weight loss R63.4 ; Diarrhea, unspecified R19.7 ; Vomiting, unspecified R11.10 ; Generalized abdominal pain R10.84 and Decreased breath sounds R06.89 [place] [address] 27293- 9344 Oct, Bipolar 1 disorder, depressed, moderate F31.32 and Anxiety F41.9 [place] [address] 289054- 0877 Sep, Bipolar 1 disorder, depressed, moderate F31.32 ; Anxiety F41.9 ; Borderline personality disorder F60.3 and Polysubstance (including opioids) dependence with physiol dependence F19.20 [place] [address] 43511- 1978 Sep, Bipolar 1 disorder, depressed, moderate F31.32 and Anxiety F41.9 [place] [address] 32252- 7261 Sep, Bipolar 1 disorder, depressed, moderate F31.32 [place] [address] 69462- 5965 Sep, Bipolar 1 disorder, depressed, moderate F31.32 and Anxiety F41.9 [facility] [address] 56614 -8329 Sep, Pain of toe of right foot M79.674 [place] [address] 09675- 0320 Sep, [facility] [address] 52155 -6146 Sep, Cellulitis of right ankle L03.115 [place] [address] 17771- 5139 Sep, Bipolar 1 disorder, depressed, moderate F31.32 and Anxiety F41.9 [place] [address] 96331- 9308 Sep, [place] [address] 97724- 4332 Sep, [place] [address] 08215- 0092 Sep, Bipolar 1 disorder, depressed, moderate F31.32 and Anxiety F41.9 [place] [id number] [place] [address] 59643- 8657 Sep, Accidental spider bite T63.301A [facility] [id number] [place] [address] 22957- 2568 Aug, Bipolar 1 disorder, depressed, moderate F31.32 ; Anxiety F41.9 ; Borderline personality disorder F60.3 and Polysubstance (including opioids) dependence with physiol dependence F19.20 [place] [address] 86086- 4974 Aug, [place] [address] 16580- 3336 Aug, Bipolar 1 disorder, depressed, moderate F31.32 and Anxiety F41.9 [place] [id number] [place] [address] 06995- 4337 Aug, Pre-diabetes R73.03 ; Acute seasonal allergic rhinitis due to pollen J30.1 ; Hypercholesteremia E78.00 and Nausea R11.0 [place] [id number] [place] [address] 95398- 6185 Aug, [place] [id number] [place] [address] 93247- 6196 Aug, Bipolar 1 disorder, depressed, moderate F31.32 and Anxiety F41.9 [place] [id number] [place] [address] 32080- 1966 Aug, [place] [id number] [place] [address] 77140- 6546 Aug, [place] [id number] [place] [address] 39180- 9282 Aug, [place] [id number] [place] [address] 20113- 7892 Aug, Bipolar 1 disorder, depressed, moderate F31.32 and Anxiety F41.9 [facility] [id number] [place] [address] 11365- 6926 Aug, [facility] [id number] [place] [address] 21390 -4955 Aug, Insect bite, initial encounter W57.XXXA and Cellulitis of left lower leg L03.116 [place] [address] 41088- 1998 Aug, Bipolar 1 disorder, depressed, moderate F31.32 and Borderline personality disorder F60.3 [place] [address] 81947- 5052 July, [place] [address] 56413- 6416 July, [facility] [address] 61105- 5550 July, Encounter for routine adult health examination with abnormal findings Z00.01 ; History of esophageal cancer Z85.01 ; Bipolar 1 disorder, depressed, moderate F31.32 ; Anxiety F41.9 ; Acquired hypothyroidism E03.9 ; Essential hypertension I10 ; Gastroesophageal reflux disease with esophagitis K21.0 and Encounter for immunization Z23 [place] [id number] [place] [address] 65851- 4099 July, Bipolar 1 disorder, depressed, moderate F31.32 and Anxiety F41.9 [facility] [id number] [place] [address] 42398- 1719 July, [place] [address] 71535- 0135 July, Bipolar 1 disorder, depressed, moderate F31.32 and Anxiety F41.9 [place] [id number] [place] [address] 96592- 7328 July, Bipolar 1 disorder, depressed, moderate F31.32 [place] [id number] [place] [address] 96236- 7034 July, Bipolar 1 disorder, depressed, moderate F31.32 and Anxiety F41.9 [facility] [id number] [place] [address] 95149- 1996 Jun, Bipolar 1 disorder, depressed, moderate F31.32 [facility] [id number] [place] [address] 64269- 0419 Jun, Bipolar 1 disorder, depressed, moderate F31.32 and Borderline personality disorder F60.3 [place] [id number] [place] [address] 41283- 3491 Jun, Bipolar 1 disorder, depressed, moderate F31.32 [place] [id number] [place] [address] 80512- 9881 Jun, Bipolar 1 disorder, depressed, moderate F31.32 [place] [id number] [place] [address] 02816- 8372 May, Bipolar 1 disorder, depressed, moderate F31.32 and Anxiety F41.9 [place] [address] [id number] [place] [address] 93153- 6964 May, Bipolar 1 disorder, depressed, moderate F31.32 and Anxiety F41.9 [place] [address] [id number] [place] [address] 48880- 0233 May, Bipolar 1 disorder, depressed, moderate F31.32 and Anxiety F41.9 [facility] [address] [place] [address] 25679- 7928 May, Bipolar 1 disorder, depressed, moderate F31.32 and Borderline personality disorder F60.3 [facility] [id number] [place] [address] 83648- 3159 14 May, 2016 [facility] [address] [place] [address] 19879- 3616 13 May, 2016 Bipolar 1 disorder, depressed, moderate F31.32 and Anxiety F41.9 [facility] [address] [place] [address] 22720- 8840 May, Bipolar 1 disorder, depressed, moderate F31.32 and Anxiety F41.9 [facility] [id number] [place] [address] 96691- 5923 May, [facility] [id number] [place] [address] 25310- 5683 May, Bipolar 1 disorder, depressed, moderate F31.32 [place] [id number] [place] [address] 21327- 9914 May, Bipolar 1 disorder, depressed, moderate F31.32 and Generalized anxiety disorder F41.1 [place] [id number] [place] [address] 95120- 2434 Apr, Bipolar 1 disorder, depressed, moderate F31.32 and Anxiety F41.9 [place] [address] [id number] [place] [address] 13906- 2321 Apr, [place] [address] [id number] [place] [address] 48272- 5743 Apr, Bipolar 1 disorder, depressed, moderate F31.32 and Anxiety F41.9 [place] [address] [place] [address] 86269- 6886 Apr, Bipolar 1 disorder, depressed, moderate F31.32 and Anxiety F41.9 [place] [address] [place] [address] 05298- 3428 Apr, Bipolar affective disorder, depressed, severe F31.4 and Generalized anxiety disorder F41.1 [place] [id number] [place] [address] 87350- 6069 Mar, Bipolar 1 disorder, depressed, moderate F31.32 and Anxiety F41.9 [facility] [address] [place] [address] 76696- 0670 Mar, Bipolar 1 disorder, depressed, moderate F31.32 and Anxiety F41.9 [facility] [address] [place] [address] 49966- 5208 Mar, Bipolar 1 disorder, mixed, moderate F31.62 [facility] [address] [place] [address] 93533- 4266 Mar, [facility] [id number] [place] [address] 83655- 2258 Mar, Bipolar 1 disorder, mixed, moderate F31.62 ; Generalized anxiety disorder F41.1 and 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 [facility] [id number] [place] [address] 67065- 6825 Feb, Bipolar 1 disorder, depressed, moderate F31.32 and Anxiety F41.9 [facility] [id number] [place] [address] 94397- 0816 Feb, Bipolar 1 disorder, depressed, moderate F31.32 and Other group home (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 Z79.899 [facility] [id number] [place] [address] 41833- 6151 Feb, [facility] [id number] [place] [address] 39962- 3997 Feb, Bipolar 1 disorder, depressed, moderate F31.32 and Anxiety F41.9 [facility] [address] [place] [address] 49654- 9585 Feb, Bipolar 1 disorder, depressed, moderate F31.32 and Other group home (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 Z79.899 [facility] [address] [place] [address] 82345- 0751 Feb, Bipolar 1 disorder, depressed, moderate F31.32 and Anxiety F41.9 [facility] [address] [address]- 4152 Dec, Bipolar 1 disorder, depressed, moderate F31.32 and Anxiety F41.9 [facility] [address] [id number] [address] 2546 Oct, [facility] [address] [facility] [id number] [address]- 6544 Oct, [facility] [address] [facility] [id number] [place] [address] 2546 May, [facility] [address] [facility] [id number] [place] [address] 2546 May, [facility] [address] [facility] [id number] [address]- 0616 Mar, [facility] [address] [facility] [id number] [address]- 8040 Mar, IMMUNIZATIONS No Known Immunizations SOCIAL HISTORY Never Assessed REASON FOR VISIT Requests return call PLAN OF CARE VITAL SIGNS MEDICATIONS Unknown Medications RESULTS No Results PROCEDURES No Known procedures INSTRUCTIONS MEDICATIONS ADMINISTERED No Known Medications MEDICAL (GENERAL) HISTORY Type Description Date Medical History Bipolar I disorder Medical History Anxiety Medical History Hypertension Medical History Depression Medical History Hypothyroidism Medical History Bronchitis ( has had frequently) Medical History Esophageal cancer (has had 37 treatments of radiation, chemo, surgeries.) In remission for 5 years Medical History Infertility ( has had several treatments & surgeries) Medical History HYPERLIPIDEMIA Medical History PRE-DIABETES Medical History Polysubstance abuse Including Opioids Surgical History Several surgeries for infertility Surgical History Trach placement, multiple surgeries malignant tumor removed Surgical History colonoscopy- Dr. Dietrich- removed ascending colon polyp, cecum polyp and hyperplastic rectal polyp- NEEDS REPEAT IN 08/2016 Surgical History cholecystectomy Surgical History appendix Surgical History total hysterectomy w/ bilat oophorectomy Surgical History kidney stone removal Surgical History Colonoscopy- Dr. Dietrich 08/2017 Hospitalization History Surgeries Hospitalization History Cancer Head and Neck 2004 Hospitalization History [facility] Psychiatric Admission 2015
--- OUTSIDE RECORDS SUMMARY | 2017-09-29 18:41 | XMS REPORT | Clinical Summary ---
Author Author [facility] Organization [facility] Address Unknown Phone Unavailable Care Team Providers Care Quarry Boss Name Role Phone Estefani Mims MD Unavailable Neymar Crandall MD Unavailable Chyna Prater MA,[facility] Unavailable Unavailable Temitope Hopper MD PCP Duy Lawson MD Unavailable Raf Dolan MD Unavailable Nicolasa Arriaza MD Unavailable Jean-Paul Christensen RN Unavailable Unavailable Lisa Frias MD Unavailable Catherine Black RN Unavailable Unavailable Samia De Jesus RN Unavailable Unavailable Ruben Jaimes RN Unavailable Unavailable Mona Mendez RN Unavailable Unavailable Savannah Martin RN Unavailable Unavailable Yasmani Grove MBBS Unavailable Ashley Le DO Unavailable Source Comments Some departments are not documenting in the electronic medical record. If you do not see the information that you expected, contact Release of Information in the Health Information Management department at [phone] for further assistance in locating additional records.[facility] Allergies Active Allergy Reactions Severity Noted Date Comments Adhesive RASH 2011 Codeine NAUSEA AND VOMITING 04/22/2009 Tachycardia, itching Penicillins HIVES Medium 12/31/2014 Current Medications Prescription Sig. Disp. 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 Resolved Problems Problem Noted Date Resolved Date Suicidal ideation 01/09/2016 01/18/2016 Suicidal ideation 05/25/2015 06/10/2015 Major depressive disorder, recurrent, severe without psychotic features 02/201505/26/2015 ([facility]) Suicidal thoughts 01/27/2015 02/11/2015 Bipolar 1 disorder, depressed, severe ([facility]) 01/27/2015 02/14/2015 Depression with suicidal ideation 12/29/2014 01/14/2015 Bipolar 1 disorder, mixed, partial remission ([facility]) 06/12/2014 05/26/2015 Family History Medical History Relation [...] Taken Blood Pressure 136/86 01/18/2016 9:30 AM MECHANICAL SERVICE REPRESENTATIVE Pulse 89 01/18/2016 9:30 AM MECHANICAL SERVICE REPRESENTATIVE Temperature 37 C (98.6 F) 01/18/2016 9:30 AM MECHANICAL SERVICE REPRESENTATIVE Respiratory Rate - - Oxygen Saturation 93% 01/18/2016 9:30 AM MECHANICAL SERVICE REPRESENTATIVE Inhaled Oxygen - - Concentration Weight 106.5 kg (234 lb 12.8 oz) 01/22/2016 11:20 AM MECHANICAL SERVICE REPRESENTATIVE Height 167.6 cm (5' 6") 01/22/2016 11:20 AM MECHANICAL SERVICE REPRESENTATIVE Body Mass Index 37.9 01/22/2016 11:20 AM MECHANICAL SERVICE REPRESENTATIVE Plan of Treatment Health Maintenance Due Date Last Done Comments HEPATITIS C SCREENING 1959 PHYSICAL (COMPREHENSIVE) 1966 EXAM PERTUSSIS VACCINE 1970 HIV SCREENING 1974 TETANUS VACCINE 1976 CERVICAL CANCER SCREENING 1989 BREAST CANCER SCREENING 1999 COLORECTAL CANCER 2009 SCREENING SHINGLES RECOMBINANT 2009 VACCINE (1 of 2) INFLUENZA VACCINE 12/04/2017 Results Not on filefrom Last 3 Months
--- OUTSIDE RECORDS SUMMARY | 2017-09-29 18:42 | XMS REPORT ---
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 [employer] Name Role Phone GURINDER NORTON Unavailable PROBLEMS Type Condition ICD9-CM Code SNP40-WZ Code Onset Dates Condition Status SNOMED Code Problem Gastroesophageal reflux disease with esophagitis K21.0 Active 993916128 Problem Polysubstance (including opioids) dependence with physiol dependence F19.20 Active 28212128 Problem History of esophageal cancer Z85.01 Active 913798857 Problem Seasonal allergies J30.2 Active 830205214 Problem Pre-diabetes R73.03 Active 667726722 Problem GERD (gastroesophageal reflux disease) K21.9 Active 367419840 Problem Borderline personality disorder F60.3 Active 40688639 Problem Pure hypercholesterolemia E78.00 Active 400949193 Problem Nephrolithiasis N20.0 Active 11017165 Problem STATE HEP A (ADULT) DX V05.3 Active 311802274 Problem Bipolar 1 disorder, depressed, moderate F31.32 Active 15518673 Problem Anxiety F41.9 Active 48662053 Problem Vitamin D insufficiency E55.9 Active 713501409 Problem Essential hypertension I10 Active 73668350 Problem Elevated serum creatinine R79.89 Active 427271605 Problem Acquired hypothyroidism E03.9 Active 673822299 ALLERGIES No Information ENCOUNTERS Encounter Location Date Diagnosis [facility] [id number] [address] Oct, [facility] [address] [address] Sep, [facility] [address] [address] Sep, [facility] [id number] [address] Sep, Bipolar 1 disorder, depressed, moderate F31.32 [facility] [address] [address]- [address] Sep, Bipolar 1 disorder, depressed, moderate F31.32 [facility] [id number] [place] [address]1976- 2460 Sep, Essential hypertension I10 ; Acquired hypothyroidism E03.9 ; Anxiety F41.9 ; Chronic nausea R11.0 and Irritant contact dermatitis due to plants, except food L24.7 [address] [place] [id number] [place] [address] 12059- 3922 Aug, Bipolar 1 disorder, depressed, moderate F31.32 [place] [address] 42112- 8022 Aug, Bipolar 1 disorder, depressed, moderate F31.32 [place] [address] 89511- 5370 Aug, Bipolar 1 disorder, depressed, moderate F31.32 [place] [address] [address]- 1647 July, Candidal dermatitis B37.2 [place] [address] 11699- 7039 July, Acquired hypothyroidism E03.9 [place] [address] 31157- 8773 July, Bipolar 1 disorder, depressed, moderate F31.32 [facility] [id number] [place] [address] 52764 -9774 July, Seasonal allergies J30.2 [facility] [address] 74[address]- 9231 July, Bipolar 1 disorder, depressed, moderate F31.32 [facility] [address] 9[address]89- 7889 Jun, Pre-diabetes R73.03 [place] [id number] [place] [address] Jun, Bipolar 1 disorder, depressed, moderate F31.32 ; Anxiety F41.9 ; Borderline personality disorder F60.3 ; Polysubstance (including opioids ) dependence with physiol dependence F19.20 and Other specified abnormal findings of blood chemistry R79.89 [place] [address] [address]- 1358 Jun, Bipolar 1 disorder, depressed, moderate F31.32 [place] [address] 199521- 7908 May, Bipolar 1 disorder, depressed, moderate F31.32 [place] [address] 199525- 4511 May, Bipolar 1 disorder, depressed, moderate F31.32 [place] [address] [id number]- 2465 May, [place] [address] [id number]- 5744 May, [place] [address] 70202052- 5910 May, Bipolar 1 disorder, depressed, moderate F31.32 [place] [id number] [place] [address] 41462- 8401 May, Bipolar 1 disorder, depressed, moderate F31.32 [place] [id number] [place] [address]87 May, Other specified abnormal findings of blood chemistry R79.89 [place] [address] [id number]- 9958 08 May, 2017 Essential hypertension I10 ; Acquired hypothyroidism E03.9 ; Gastroesophageal reflux disease with esophagitis K21.0 ; Hair loss L65.9 ; Hypokalemia, gastrointestinal losses E87.6 ; Pre-diabetes R73.03 ; Candidal dermatitis B37.2 and Pure hypercholesterolemia E78.00 [place] [id number] [place] [address] 56479- 4247 Apr, Bipolar 1 disorder, depressed, moderate F31.32 [place] [address] 25469- 0413 Apr, Bipolar 1 disorder, depressed, moderate F31.32 [address] [place] [address] 29050- 6589 Apr, Bipolar 1 disorder, depressed, moderate F31.32 and Anxiety F41.9 [facility] [address] 7[address] -1246 Mar, Encounter for immunization Z23 ; Fall, initial encounter W19.XXXA ; Rib pain on left side R07.81 and Left hip pain M25.552 [address] [place] [address] 3[address]- 5592 Mar, Bipolar 1 disorder, depressed, moderate F31.32 and Anxiety F41.9 [address] [place] [address] 04502- 5910 Mar, Bipolar 1 disorder, depressed, moderate F31.32 ; Anxiety F41.9 ; Borderline personality disorder F60.3 and Polysubstance (including opioids) dependence with physiol dependence F19.20 [place] [id number] [place] [address] 18268- 8724 Mar, Bipolar 1 disorder, depressed, moderate F31.32 and Anxiety F41.9 [facility] [id number] [place] [address] 29066 -3758 Feb, Irritant contact dermatitis, unspecified trigger L24.9 [place] [address] 27297- 9813 Feb, [place] [address] 76039- 1415 Feb, [place] [address] 41666- 5954 14 Feb, 2017 Bipolar 1 disorder, depressed, moderate F31.32 and Anxiety F41.9 [address] [place] [id number] [place] [address] 14 Feb, 2017 Acute non-recurrent maxillary sinusitis J01.00 [address] [place] [id number] [place] [address]- 008 Feb, [place] [id number] [place] [address] 9367 Feb, Bipolar 1 disorder, depressed, moderate F31.32 [address] [place] [address] [place] [address]- [address] 29 Jan, 2017 [place] [id number] [place] [address] Jan, Bipolar 1 disorder, depressed, moderate F31.32 ; Anxiety F41.9 ; Borderline personality disorder F60.3 and Polysubstance (including opioids) dependence with physiol dependence F19.20 [place] [id number] [place] [address] 00561- 5695 27 Jan, 2017 Bipolar 1 disorder, depressed, moderate F31.32 and Anxiety F41.9 [place] [id number] [place] [address] 81173- 8288 20 Jan, 2017 Bipolar 1 disorder, depressed, moderate F31.32 ; Anxiety F41.9 ; Borderline personality disorder F60.3 and Polysubstance (including opioids) dependence with physiol dependence F19.20 [place] [id number] [place] [address] 23194- 9700 13 Jan, 2017 Bipolar 1 disorder, depressed, moderate F31.32 and Anxiety F41.9 [place] [id number] [place] [address] 23 Dec, 2016 Hypokalemia, gastrointestinal losses E87.6 ; GERD ( gastroesophageal reflux disease) K21.9 and Bipolar 1 disorder, depressed, moderate F31.32 [place] [id number] [place] [address] 44688- 2212 Dec, Bipolar 1 disorder, depressed, moderate F31.32 and Anxiety F41.9 [facility] [place] [address] 09[address] -[address]18 Dec, [place] [address] 44612- 1894 Dec, [facility] [address] [address] -[address] Dec, Fall (on) (from) other stairs and steps, initial encounter W10.8XXA ; Laceration of left lower extremity, initial encounter S81.812A ; Contusion of right knee, initial encounter S80.01XA and Contusion of right shoulder, initial encounter S40.011A [address] [address]- 6587 Dec, Bipolar 1 disorder, depressed, moderate F31.32 ; Anxiety F41.9 ; Borderline personality disorder F60.3 and Polysubstance (including opioids) dependence with physiol dependence F19.[address] 34573- 0811 Dec, Bipolar 1 disorder, depressed, moderate F31.32 and Anxiety F41.[address] 43219- 9819 Dec, [address] 78180- 4379 Dec, Hospital discharge follow-up Z09 ; Nephrolithiasis N20.0 ; Essential hypertension I10 ; Gastroesophageal reflux disease with esophagitis K21.0 and Anxiety F41.[address] [address]- 2204 Nov, [facility] [address] [address]6710 24 Nov, 2016 Dysuria R30.0 and Acute cystitis with hematuria N30.01 [facility] [id number] [place] [address] 82031 -0878 24 Nov, 2016 [facility] [address] [id number]- 5311 19 Nov, 2016 [facility] [address] 8[address]- 9030 19 Nov, 2016 Gastroesophageal reflux disease with esophagitis K21.0 ; Hypercholesteremia E78.00 and Acquired hypothyroidism E03.9 [facility] [address] 10831 -1514 18 Nov, 2016 Left wrist pain M25.532 and Contusion of left wrist, initial encounter S60.212A [address] [place] [address] 92088- 0685 18 Nov, 2016 Bipolar 1 disorder, depressed, moderate F31.32 ; Anxiety F41.9 ; Borderline personality disorder F60.3 and Polysubstance (including opioids) dependence with physiol dependence F19.20 [facility] [address] 65570 -3719 15 Nov, 2016 Abdominal pain R10.9 and GERD (gastroesophageal reflux disease) K21.9 [address] [place] [address] 19085- 0939 12 Nov, 2016 Hypokalemia, gastrointestinal losses E87.6 [address] [place] [address] 51519- 4161 11 Nov, 2016 Dehydration E86.0 ; Hypokalemia, gastrointestinal losses E87.6 and Vaginal candidiasis B37.3 [address] [address] 71282- 5671 08 Nov, 2016 Abnormal weight loss R63.4 ; Diarrhea, unspecified R19.7 ; Vomiting, unspecified R11.10 ; Generalized abdominal pain R10.84 and Decreased breath sounds R06.89 [address] [place] [address] 83374- 8263 Oct, Bipolar 1 disorder, depressed, moderate F31.32 and Anxiety F41.9 [place] [address] [address]27- 5488 Sep, Bipolar 1 disorder, depressed, moderate F31.32 ; Anxiety F41.9 ; Borderline personality disorder F60.3 and Polysubstance (including opioids) dependence with physiol dependence F19.20 [place] [address] 11331- 9257 Sep, Bipolar 1 disorder, depressed, moderate F31.32 and Anxiety F41.9 [address] [place] [address] 98605- 2326 Sep, Bipolar 1 disorder, depressed, moderate F31.32 [address] [place] [address] 65188- 0994 Sep, Bipolar 1 disorder, depressed, moderate F31.32 and Anxiety F41.9 [facility] [address] 61284 -7826 Sep, Pain of toe of right foot M79.674 [address] [address] 26194- 6879 Sep, [facility] [id number] [place] [address] 98278 -6955 Sep, Cellulitis of right ankle L03.115 [address] [place] [address] 16808- 7979 Sep, Bipolar 1 disorder, depressed, moderate F31.32 and Anxiety F41.9 [address] [address] 08437- 6803 Sep, [place] [address] 92972- 3241 Sep, [place] [address] 63822- 2247 Sep, Bipolar 1 disorder, depressed, moderate F31.32 and Anxiety F41.9 [place] [id number] [place] [address] 22779- 9336 Sep, Accidental spider bite T63.301A [address] [place] [id number] [place] [address] 62225- 1738 Aug, Bipolar 1 disorder, depressed, moderate F31.32 ; Anxiety F41.9 ; Borderline personality disorder F60.3 and Polysubstance (including opioids) dependence with physiol dependence F19.20 [address] [place] [address] 74918- 2579 Aug, [place] [address] 12880- 3604 Aug, Bipolar 1 disorder, depressed, moderate F31.32 and Anxiety F41.9 [address] [place] [address] 85667- 4791 Aug, Pre-diabetes R73.03 ; Acute seasonal allergic rhinitis due to pollen J30.1 ; Hypercholesteremia E78.00 and Nausea R11.0 [address] [place] [id number] [place] [address] 40143- 7157 Aug, [place] [id number] [place] [address] 49977- 8192 Aug, Bipolar 1 disorder, depressed, moderate F31.32 and Anxiety F41.9 [place] [id number] [place] [address] 83280- 7680 Aug, [place] [address] 47520- 0186 Aug, [place] [id number] [place] [address] 42662- 5109 Aug, [place] [id number] [place] [address] 04175- 5286 Aug, Bipolar 1 disorder, depressed, moderate F31.32 and Anxiety F41.9 [facility] [id number] [place] [address] 24032- 5774 Aug, [facility] [id number] [place] [address] 66407 -7183 Aug, Insect bite, initial encounter W57.XXXA and Cellulitis of left lower leg L03.116 [address] [place] [address] 48906- 6883 Aug, Bipolar 1 disorder, depressed, moderate F31.32 and Borderline personality disorder F60.[address] 13874- 6213 July, [place] [id number] [place] [address] 60217- 6369 July, [address] 03928- 5837 July, Encounter for routine adult health examination with abnormal findings Z00.01 ; History of esophageal cancer Z85.01 ; Bipolar 1 disorder, depressed, moderate F31.32 ; Anxiety F41.9 ; Acquired hypothyroidism E03.9 ; Essential hypertension I10 ; Gastroesophageal reflux disease with esophagitis K21.0 and Encounter for immunization Z23 [address] [place] [id number] [place] [address] 86059- 8668 July, Bipolar 1 disorder, depressed, moderate F31.32 and Anxiety F41.9 [facility] [id number] [place] [address] 71032- 4508 July, [id number] [place] [address] 12005- 0215 July, Bipolar 1 disorder, depressed, moderate F31.32 and Anxiety F41.9 [address] [place] [id number] [place] [address] 88176- 3713 July, Bipolar 1 disorder, depressed, moderate F31.32 [address] [place] [address] [place] [address] 09323- 9953 July, Bipolar 1 disorder, depressed, moderate F31.32 and Anxiety F41.9 [facility] [id number] [place] [address]- 8686 Jun, Bipolar 1 disorder, depressed, moderate F31.32 [facility] [id number] [place] [address] 81872- 9316 Jun, Bipolar 1 disorder, depressed, moderate F31.32 and Borderline personality disorder F60.3 [place] [id number] [place] [address] 82709- 2062 Jun, Bipolar 1 disorder, depressed, moderate F31.32 [place] [id number] [place] [address] 30904- 7510 Jun, Bipolar 1 disorder, depressed, moderate F31.32 [place] [id number] [place] [address] 62819- 5459 May, Bipolar 1 disorder, depressed, moderate F31.32 and Anxiety F41.9 [place] [id number] [place] [address] 47086- 2227 May, Bipolar 1 disorder, depressed, moderate F31.32 and Anxiety F41.9 [place] [address] [place] [address] 51214- 7897 May, Bipolar 1 disorder, depressed, moderate F31.32 and Anxiety F41.9 [address] [place] [address] [place] [address] 23079- 5243 May, Bipolar 1 disorder, depressed, moderate F31.32 and Borderline personality disorder F60.3 [place] [id number] [place] [address] 58085- 5423 14 May, 2016 [place] [id number] [place] [address] 57409- 4279 13 May, 2016 Bipolar 1 disorder, depressed, moderate F31.32 and Anxiety F41.9 [address] [address] [place] [address] 45018- 1376 May, Bipolar 1 disorder, depressed, moderate F31.32 and Anxiety F41.9 [place] [id number] [place] [address] 33138- 0011 May, [place] [id number] [place] [address] 30573- 5704 May, Bipolar 1 disorder, depressed, moderate F31.32 [place] [id number] [place] [address] 38637- 8529 May, Bipolar 1 disorder, depressed, moderate F31.32 and Generalized anxiety disorder F41.1 [place] [id number] [place] [address] 54362- 9641 Apr, Bipolar 1 disorder, depressed, moderate F31.32 and Anxiety F41.9 [place] [id number] [place] [address] 22390- 6232 Apr, [place] [id number] [place] [address] 91665- 5704 Apr, Bipolar 1 disorder, depressed, moderate F31.32 and Anxiety F41.9 [place] [address] [place] [address] 44859- 7972 Apr, Bipolar 1 disorder, depressed, moderate F31.32 and Anxiety F41.9 [place] [address] [place] [address] 65924- 3767 Apr, Bipolar affective disorder, depressed, severe F31.4 and Generalized anxiety disorder F41.1 [place] [id number] [place] [address] 79089- 6705 Mar, Bipolar 1 disorder, depressed, moderate F31.32 and Anxiety F41.9 [facility] [address] [place] [address] 70221- 2765 Mar, Bipolar 1 disorder, depressed, moderate F31.32 and Anxiety F41.9 [facility] [address] [address]- 3634 Mar, Bipolar 1 disorder, mixed, moderate F31.62 [facility] [address] [place] [address] 29166- 3130 Mar, [facility] [id number] [place] [address] 22945- 6651 Mar, Bipolar 1 disorder, mixed, moderate F31.62 ; Generalized anxiety disorder F41.1 and Other snf (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 Z79.899 [facility] [id number] [place] [address] 63482- 5306 Feb, Bipolar 1 disorder, depressed, moderate F31.32 and Anxiety F41.9 [facility] [id number] [place] [address] 67937- 2008 Feb, Bipolar 1 disorder, depressed, moderate F31.32 and 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 [facility] [id number] [place] [address] 03138- 9892 Feb, [facility] [id number] [place] [address] 71513- 7040 Feb, Bipolar 1 disorder, depressed, moderate F31.32 and Anxiety F41.9 [facility] [address] [place] [address] 79353- 5170 Feb, Bipolar 1 disorder, depressed, moderate F31.32 and Other snf (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 Z79.899 [facility] [address] [place] [address] 96475- 4295 Feb, Bipolar 1 disorder, depressed, moderate F31.32 and Anxiety F41.9 [facility] [address] [place] [address] 52371- 7676 Dec, Bipolar 1 disorder, depressed, moderate F31.32 and Anxiety F41.9 [facility] [id number] [place] [address]- 2546 Oct, [facility] [address] [facility] [id number] [address] 2546 Oct, [facility] [address] [facility] [id number] [place] [address]- 2546 May, [facility] [address] [facility] [id number] [address]- 2546 May, [facility] [address] [facility] [id number] [address]- 8125 Mar, [facility] [address] [facility] [id number] [address]- 5524 Mar, IMMUNIZATIONS No Known Immunizations SOCIAL HISTORY Never Assessed REASON FOR VISIT Follow-up Depression PLAN OF CARE Activity Details Follow Up Next available Reason: Follow-up VITAL SIGNS MEDICATIONS Unknown Medications RESULTS No Results PROCEDURES Procedure Date Ordered Result Body Site [facility] VISIT MENTAL HEALTH ESTAB PT May 16, 2017 Psychotherapy, patient &/family, 30 minutes, established patient May 16, 2017 INSTRUCTIONS MEDICATIONS ADMINISTERED No Known Medications MEDICAL [...] and hyperplastic rectal polyp- NEEDS REPEAT IN 2018 08/2016 Surgical History cholecystectomy Surgical History appendix Surgical History total hysterectomy w/ bilat oophorectomy Surgical History kidney stone removal Surgical History Colonoscopy- Dr. Dietrich 08/2017 Hospitalization History Surgeries Hospitalization History Cancer Head and Neck 2005 Hospitalization History [facility] 2015
--- OUTSIDE RECORDS SUMMARY | 2017-09-29 18:42 | XMS REPORT ---
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 Name Role Phone MICHELLE, DARCI Unavailable PROBLEMS Type Condition ICD9-CM Code RDO64-AG Code Onset Dates Condition Status SNOMED Code Problem Gastroesophageal reflux disease with esophagitis K21.0 Active 394799157 Problem Polysubstance (including opioids) dependence with physiol dependence F19.20 Active 17581416 Problem History of esophageal cancer Z85.01 Active 687854210 Problem Seasonal allergies J30.2 Active 190685001 Problem Pre-diabetes R73.03 Active 024742642 Problem GERD (gastroesophageal reflux disease) K21.9 Active 964299519 Problem Borderline personality disorder F60.3 Active 07012040 Problem Pure hypercholesterolemia E78.00 Active 285776902 Problem Nephrolithiasis N20.0 Active 40364367 Problem STATE HEP A (ADULT) DX V05.3 Active 876849480 Problem Bipolar 1 disorder, depressed, moderate F31.32 Active 21649882 Problem Anxiety F41.9 Active 35263910 Problem Vitamin D insufficiency E55.9 Active 281877055 Problem Essential hypertension I10 Active 61596647 Problem Elevated serum creatinine R79.89 Active 416363806 Problem Acquired hypothyroidism E03.9 Active 817209450 ALLERGIES No Information ENCOUNTERS Encounter Location Date Diagnosis [facility] [id number] [address] Oct, [facility] [id number] [place] [address] 75498- 6362 Sep, [facility] [address] [address] Sep, [facility] [id number] [address]65 Sep, Bipolar 1 disorder, depressed, moderate F31.32 [facility] [id number] [place] [address] 55468- 3844 Sep, Bipolar 1 disorder, depressed, moderate F31.32 [facility] [id number] [place] [address] 29649- 6518 Sep, Essential hypertension I10 ; Acquired hypothyroidism E03.9 ; Anxiety F41.9 ; Chronic nausea R11.0 and Irritant contact dermatitis due to plants, except food L24.7 [place] [id number] [place] [address] 35416- 8275 Aug, Bipolar 1 disorder, depressed, moderate F31.32 [place] [id number] [place] [address] 44060- 3653 Aug, Bipolar 1 disorder, depressed, moderate F31.32 [place] [address] 22456- 6918 Aug, Bipolar 1 disorder, depressed, moderate F31.32 [place] [id number] [place] [address] 74473- 2167 July, Candidal dermatitis B37.2 [facility] [id number] [place] [address] 68858- 3790 July, Acquired hypothyroidism E03.9 [facility] [id number] [place] [address] 74603- 2712 July, Bipolar 1 disorder, depressed, moderate F31.32 [facility] [id number] [place] [address] 92380 -0744 July, Seasonal allergies J30.2 [facility] [address] 88402- 4432 July, Bipolar 1 disorder, depressed, moderate F31.32 [facility] [id number] [place] [address] 87179- 8675 Jun, Pre-diabetes R73.03 [place] [id number] [place] [id number] Jun, Bipolar 1 disorder, depressed, moderate F31.32 ; Anxiety F41.9 ; Borderline personality disorder F60.3 ; Polysubstance (including opioids ) dependence with physiol dependence F19.20 and Other specified abnormal findings of blood chemistry R79.89 [place] [address] [place] [address] 28[address] Jun, Bipolar 1 disorder, depressed, moderate F31.32 [place] [address] 3448 May, Bipolar 1 disorder, depressed, moderate F31.32 [place] [address] 789212 054 May, Bipolar 1 disorder, depressed, moderate F31.32 [place] [address] 789210- 5260 May, [place] [address] 789213- 7410 May, [place] [address] 789216- 1235 May, Bipolar 1 disorder, depressed, moderate F31.32 [place] [address] [id number]- 4575 May, Bipolar 1 disorder, depressed, moderate F31.32 [place] [address] 789215- 1658 May, Other specified abnormal findings of blood chemistry R79.89 [place] [address] 789219- 1403 08 May, 2017 Essential hypertension I10 ; Acquired hypothyroidism E03.9 ; Gastroesophageal reflux disease with esophagitis K21.0 ; Hair loss L65.9 ; Hypokalemia, gastrointestinal losses E87.6 ; Pre-diabetes R73.03 ; Candidal dermatitis B37.2 and Pure hypercholesterolemia E78.00 [place] [id number] [place] [address] 06251- 2957 Apr, Bipolar 1 disorder, depressed, moderate F31.32 [place] [id number] [place] [address] 51300- 3378 Apr, Bipolar 1 disorder, depressed, moderate F31.32 [place] [address] 53226- 0422 Apr, Bipolar 1 disorder, depressed, moderate F31.32 and Anxiety F41.9 [facility] [address] 0[address] -8133 Mar, Encounter for immunization Z23 ; Fall, initial encounter W19.XXXA ; Rib pain on left side R07.81 and Left hip pain M25.552 [place] [address] 27457- 7864 Mar, Bipolar 1 disorder, depressed, moderate F31.32 and Anxiety F41.9 [place] [address] 69029- 7384 Mar, Bipolar 1 disorder, depressed, moderate F31.32 ; Anxiety F41.9 ; Borderline personality disorder F60.3 and Polysubstance (including opioids) dependence with physiol dependence F19.20 [place] [id number] [place] [address] 35710- 2061 Mar, Bipolar 1 disorder, depressed, moderate F31.32 and Anxiety F41.9 [facility] [address] 44299 -5728 Feb, Irritant contact dermatitis, unspecified trigger L24.9 [place] [address] 03415- 8625 Feb, [place] [address] 38315- 2594 Feb, [place] [address] [place] [address] 4[address] 14 Feb, 2017 Bipolar 1 disorder, depressed, moderate F31.32 and Anxiety F41.9 [place] [id number] [place], [place] [address] 993 14 Feb, 2017 Acute non-recurrent maxillary sinusitis J01.00 [facility] [address] 05374- 088 Feb, [place] [address] 789211- 3873 Feb, Bipolar 1 disorder, depressed, moderate F31.32 [place] [address] [place] [address]- 0136 Jan, [place] [address] 755559- 2186 Jan, Bipolar 1 disorder, depressed, moderate F31.32 ; Anxiety F41.9 ; Borderline personality disorder F60.3 and Polysubstance (including opioids) dependence with physiol dependence F19.20 [place] [id number] [place] [address] 89445- 7225 27 Jan, 2017 Bipolar 1 disorder, depressed, moderate F31.32 and Anxiety F41.9 [place] [id number] [place] [address] 27422- 1113 20 Jan, 2017 Bipolar 1 disorder, depressed, moderate F31.32 ; Anxiety F41.9 ; Borderline personality disorder F60.3 and Polysubstance (including opioids) dependence with physiol dependence F19.20 [place] [id number] [place] [address] 02635- 8270 13 Jan, 2017 Bipolar 1 disorder, depressed, moderate F31.32 and Anxiety F41.9 [place] [id number] [place] [address]28 23 Dec, 2016 Hypokalemia, gastrointestinal losses E87.6 ; GERD ( gastroesophageal reflux disease) K21.9 and Bipolar 1 disorder, depressed, moderate F31.32 [place] [id number] [place] [address] 58897- 3898 Dec, Bipolar 1 disorder, depressed, moderate F31.32 and Anxiety F41.9 [facility] [place] [id number] [place] [address] 12502 -3754 Dec, [place] [address] 28890- 9292 Dec, [facility] [address] [address] -[address]244 Dec, Fall (on) (from) other stairs and steps, initial encounter W10.8XXA ; Laceration of left lower extremity, initial encounter S81.812A ; Contusion of right knee, initial encounter S80.01XA and Contusion of right shoulder, initial encounter S40.011A [address] 94132- 3344 Dec, Bipolar 1 disorder, depressed, moderate F31.32 ; Anxiety F41.9 ; Borderline personality disorder F60.3 and Polysubstance (including opioids) dependence with physiol dependence F19.[address] 03773- 7369 Dec, Bipolar 1 disorder, depressed, moderate F31.32 and Anxiety F41.9 [id number] [place] [address] 15503- 4637 Dec, [address] 44962- 9302 Dec, Hospital discharge follow-up Z09 ; Nephrolithiasis N20.0 ; Essential hypertension I10 ; Gastroesophageal reflux disease with esophagitis K21.0 and Anxiety F41.9 [place] [id number] [place] [address] 54472- 2145 Nov, [facility] [id number] [place] [address] 78392 -2295 24 Nov, 2016 Dysuria R30.0 and Acute cystitis with hematuria N30.01 [facility] [id number] [place] [address] 67961 -0447 Nov, [facility] [address] 66305- 5984 Nov, [facility] [address] 34863- 4709 Nov, Gastroesophageal reflux disease with esophagitis K21.0 ; Hypercholesteremia E78.00 and Acquired hypothyroidism E03.9 [facility] [address] 45854 -3930 18 Nov, 2016 Left wrist pain M25.532 and Contusion of left wrist, initial encounter S60.212A [place] [address] 69561- 7216 18 Nov, 2016 Bipolar 1 disorder, depressed, moderate F31.32 ; Anxiety F41.9 ; Borderline personality disorder F60.3 and Polysubstance (including opioids) dependence with physiol dependence F19.20 [facility] [address] 55830 -4147 15 Nov, 2016 Abdominal pain R10.9 and GERD (gastroesophageal reflux disease) K21.9 [place] [address] 98763- 1822 12 Nov, 2016 Hypokalemia, gastrointestinal losses E87.6 [place] [address] 81607- 5821 11 Nov, 2016 Dehydration E86.0 ; Hypokalemia, gastrointestinal losses E87.6 and Vaginal candidiasis B37.3 [place] [address] 21815- 5001 08 Nov, 2016 Abnormal weight loss R63.4 ; Diarrhea, unspecified R19.7 ; Vomiting, unspecified R11.10 ; Generalized abdominal pain R10.84 and Decreased breath sounds R06.89 [place] [address] [place] [address]- 8861 Oct, Bipolar 1 disorder, depressed, moderate F31.32 and Anxiety F41.9 [facility] [address] [id number]- 0734 Sep, Bipolar 1 disorder, depressed, moderate F31.32 ; Anxiety F41.9 ; Borderline personality disorder F60.3 and Polysubstance (including opioids) dependence with physiol dependence F19.20 [place] [address] 66397- 5929 Sep, Bipolar 1 disorder, depressed, moderate F31.32 and Anxiety F41.9 [place] [address] 48206- 0672 Sep, Bipolar 1 disorder, depressed, moderate F31.32 [place] [address] 98891- 3348 Sep, Bipolar 1 disorder, depressed, moderate F31.32 and Anxiety F41.9 [facility] [address] 85166 -7840 Sep, Pain of toe of right foot M79.674 [place] [address] 78788- 7336 Sep, [facility] [address] 95580 -8448 Sep, Cellulitis of right ankle L03.115 [place] [address] 65867- 4686 Sep, Bipolar 1 disorder, depressed, moderate F31.32 and Anxiety F41.9 [place] [address] 95771- 9873 Sep, [place] [address] 95627- 5055 Sep, [place] [address] 18459- 1696 Sep, Bipolar 1 disorder, depressed, moderate F31.32 and Anxiety F41.9 [place] [address] 51987- 1504 Sep, Accidental spider bite T63.301A [place] [address] 81814- 8473 Aug, Bipolar 1 disorder, depressed, moderate F31.32 ; Anxiety F41.9 ; Borderline personality disorder F60.3 and Polysubstance (including opioids) dependence with physiol dependence F19.20 [place] [address] 52916- 9212 Aug, [place] [address] 16695- 0093 Aug, Bipolar 1 disorder, depressed, moderate F31.32 and Anxiety F41.9 [place] [address] 80646- 9032 Aug, Pre-diabetes R73.03 ; Acute seasonal allergic rhinitis due to pollen J30.1 ; Hypercholesteremia E78.00 and Nausea R11.0 [place] [id number] [place] [address] 81220- 2655 Aug, [place] [id number] [place] [address] 44629- 0090 Aug, Bipolar 1 disorder, depressed, moderate F31.32 and Anxiety F41.9 [place] [id number] [place] [address] 47127- 0083 Aug, [place] [address] 29525- 8644 Aug, [place] [id number] [place] [address] 59773- 9320 Aug, [place] [address] 57790- 8242 Aug, Bipolar 1 disorder, depressed, moderate F31.32 and Anxiety F41.9 [facility] [id number] [place] [address] 63993- 7594 Aug, [facility] [id number] [place] [address] 37823 -0521 Aug, Insect bite, initial encounter W57.XXXA and Cellulitis of left lower leg L03.116 [place] [id number] [place] [address] 03112- 8742 Aug, Bipolar 1 disorder, depressed, moderate F31.32 and Borderline personality disorder F60.[address] 59412- 8907 July, [place] [address] 05310- 3218 July, [place] [address] 74086- 3654 July, Encounter for routine adult health examination with abnormal findings Z00.01 ; History of esophageal cancer Z85.01 ; Bipolar 1 disorder, depressed, moderate F31.32 ; Anxiety F41.9 ; Acquired hypothyroidism E03.9 ; Essential hypertension I10 ; Gastroesophageal reflux disease with esophagitis K21.0 and Encounter for immunization Z23 [place] [id number] [place] [address] 54359- 6343 July, Bipolar 1 disorder, depressed, moderate F31.32 and Anxiety F41.9 [facility] [id number] [place] [address] 75657- 9424 July, [address] 42070- 3334 July, Bipolar 1 disorder, depressed, moderate F31.32 and Anxiety F41.9 [place] [id number] [place] [address] 72007- 2226 July, Bipolar 1 disorder, depressed, moderate F31.32 [place] [address] [address]- 9931 July, Bipolar 1 disorder, depressed, moderate F31.32 and Anxiety F41.9 [facility] [id number] [place] [address] 48836- 2246 Jun, Bipolar 1 disorder, depressed, moderate F31.32 [facility] [id number] [place] [address] 43112- 6024 Jun, Bipolar 1 disorder, depressed, moderate F31.32 and Borderline personality disorder F60.3 [facility] [id number] [place] [address] 77142- 1134 Jun, Bipolar 1 disorder, depressed, moderate F31.32 [place] [id number] [place] [address] 09686- 4966 Jun, Bipolar 1 disorder, depressed, moderate F31.32 [place] [id number] [place] [address] 59343- 1398 May, Bipolar 1 disorder, depressed, moderate F31.32 and Anxiety F41.9 [place] [id number] [place] [address] 81842- 4143 May, Bipolar 1 disorder, depressed, moderate F31.32 and Anxiety F41.9 [place] [address] [place] [address] 05483- 4634 May, Bipolar 1 disorder, depressed, moderate F31.32 and Anxiety F41.9 [facility] [address] [place] [address] 82606- 9713 May, Bipolar 1 disorder, depressed, moderate F31.32 and Borderline personality disorder F60.3 [facility] [id number] [place] [address] 05325- 7573 14 May, 2016 [facility] [id number] [place] [address] 44625- 3981 13 May, 2016 Bipolar 1 disorder, depressed, moderate F31.32 and Anxiety F41.9 [place] [id number] [place] [address] 30326- 4108 May, Bipolar 1 disorder, depressed, moderate F31.32 and Anxiety F41.9 [place] [id number] [place] [address]- [address]101 May, [place] [id number] [place] [address] 595410- 7943 May, Bipolar 1 disorder, depressed, moderate F31.32 [place] [id number] [place] [address] 90691- 4578 May, Bipolar 1 disorder, depressed, moderate F31.32 and Generalized anxiety disorder F41.1 [place] [id number] [place] [address] 79647- 1016 Apr, Bipolar 1 disorder, depressed, moderate F31.32 and Anxiety F41.9 [place] [id number] [place] [address] 26534- 0178 Apr, [place] [id number] [place] [address] 57130- 3909 Apr, Bipolar 1 disorder, depressed, moderate F31.32 and Anxiety F41.9 [place] [id number] [place] [address] 37696- 6285 Apr, Bipolar 1 disorder, depressed, moderate F31.32 and Anxiety F41.9 [place] [id number] [place] [address] 58930- 4386 Apr, Bipolar affective disorder, depressed, severe F31.4 and Generalized anxiety disorder F41.1 [place] [id number] [place] [address] 7793 Mar, Bipolar 1 disorder, depressed, moderate F31.32 and Anxiety F41.9 [place] [id number] [place] [address] 87407- 7346 Mar, Bipolar 1 disorder, depressed, moderate F31.32 and Anxiety F41.9 [facility] [address] [address]- 1917 Mar, Bipolar 1 disorder, mixed, moderate F31.62 [facility] [address] [place] [address] 29327- 2443 Mar, [facility] [id number] [place] [address] 27877- 1819 Mar, Bipolar 1 disorder, mixed, moderate F31.62 ; Generalized anxiety disorder F41.1 and Other fdc (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 Z79.899 [facility] [id number] [place] [address] 02954- 1986 Feb, Bipolar 1 disorder, depressed, moderate F31.32 and Anxiety F41.9 [facility] [id number] [place] [address] 55807- 9653 Feb, Bipolar 1 disorder, depressed, moderate F31.32 and Other fdc (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 Z79.899 [facility] [id number] [place] [address] 98143- 4276 Feb, [facility] [id number] [place] [address] 11388- 3612 Feb, Bipolar 1 disorder, depressed, moderate F31.32 and Anxiety F41.9 [facility] [id number] [place] [address] 83752- 3864 Feb, Bipolar 1 disorder, depressed, moderate F31.32 and 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 [facility] [address] [place] [address] 51723- 3491 Feb, Bipolar 1 disorder, depressed, moderate F31.32 and Anxiety F41.9 [facility] [address] [place] [address] 63946- 1244 Dec, Bipolar 1 disorder, depressed, moderate F31.32 and Anxiety F41.9 [facility] [id number] [address]- 2546 Oct, [facility] [address] [facility] [id number] [address]- 1161 Oct, [facility] [address] [facility] [id number] [address]- 2546 May, [facility] [address] [facility] [id number] [address] 2546 May, [facility] [address] [facility] [id number] [address]- 3599 Mar, [facility] [address] [facility] [id number] [address]- 5287 Mar, IMMUNIZATIONS No Known Immunizations SOCIAL HISTORY Never Assessed REASON FOR VISIT med refill PLAN OF CARE VITAL SIGNS MEDICATIONS Medication Instructions Dosage Frequency Start Date End Date Duration Status Latuda 40 mg Orally Once a day at supper 1 tablet with food Jan, 30 days Active RESULTS No Results PROCEDURES No Known procedures [...] Cancer Head and Neck 2004 Hospitalization History [facility] Admission 2015
--- OUTSIDE RECORDS SUMMARY | 2017-09-29 18:43 | XMS REPORT ---
Author Author ANGULODICK Casillas Organization [facility] Address [address] [place] [address] Care Team Providers Care Bottom Wheeler Name Role Phone DICK ANGULO Unavailable PROBLEMS Type Condition ICD9-CM Code OYN56-LJ Code Onset Dates Condition Status SNOMED Code Problem Gastroesophageal reflux disease with esophagitis K21.0 Active 395512948 Problem Polysubstance (including opioids) dependence with physiol dependence F19.20 Active 46805506 Problem History of esophageal cancer Z85.01 Active 015900995 Problem Seasonal allergies J30.2 Active 927068123 Problem Pre-diabetes R73.03 Active 072831278 Problem GERD (gastroesophageal reflux disease) K21.9 Active 656848568 Problem Borderline personality disorder F60.3 Active 27208954 Problem Pure hypercholesterolemia E78.00 Active 931048124 Problem Nephrolithiasis N20.0 Active 01818270 Problem STATE HEP A (ADULT) DX V05.3 Active 432133877 Problem Bipolar 1 disorder, depressed, moderate F31.32 Active 72865729 Problem Anxiety F41.9 Active 37805186 Problem Vitamin D insufficiency E55.9 Active 332309450 Problem Essential hypertension I10 Active 79865855 Problem Elevated serum creatinine R79.89 Active 083065357 Problem Acquired hypothyroidism E03.9 Active 759243420 ALLERGIES No Information ENCOUNTERS Encounter Location Date Diagnosis [facility] [address] [facility] [id number] [address] Oct, [facility] [address] [id number] [address] Sep, [facility] [id number] [address] Sep, [facility] [address] [id number] [address] Sep, Bipolar 1 disorder, depressed, moderate F31.32 [facility] [id number] [place] [address]1612- 5234 Sep, Bipolar 1 disorder, depressed, moderate F31.32 [facility] [address] [address] Sep, Essential hypertension I10 ; Acquired hypothyroidism E03.9 ; Anxiety F41.9 ; Chronic nausea R11.0 and Irritant contact dermatitis due to plants, except food L24.7 [place] [address] [address]- 8526 Aug, Bipolar 1 disorder, depressed, moderate F31.32 [place] [address] 34378- 9357 Aug, Bipolar 1 disorder, depressed, moderate F31.32 [place] [address] 64225- 2427 Aug, Bipolar 1 disorder, depressed, moderate F31.32 [place] [address] 6[address]36- 6441 July, Candidal dermatitis B37.2 [place] [address] 33022- 1544 July, Acquired hypothyroidism E03.9 [place] [id number] [place] [address] 45702- 2828 July, Bipolar 1 disorder, depressed, moderate F31.32 [facility] [id number] [place] [address] 11934 -9758 July, Seasonal allergies J30.2 [place] [address] 27908- 3920 July, Bipolar 1 disorder, depressed, moderate F31.32 [place] [address] 45673- 2156 Jun, Pre-diabetes R73.03 [place] [id number] [place] [address] Jun, Bipolar 1 disorder, depressed, moderate F31.32 ; Anxiety F41.9 ; Borderline personality disorder F60.3 ; Polysubstance (including opioids ) dependence with physiol dependence F19.20 and Other specified abnormal findings of blood chemistry R79.89 [place] [address] [place] [id number]- [address]598 Jun, Bipolar 1 disorder, depressed, moderate F31.32 [place] [address] [place] 246628- 3311 May, Bipolar 1 disorder, depressed, moderate F31.32 [place] [address] [place] 246621- 3805 May, Bipolar 1 disorder, depressed, moderate F31.32 [place] [address] [place] 246625- 9633 May, [place] [address] [place] [id number]- 5195 May, [place] [address] [place] [id number]- 1696 May, Bipolar 1 disorder, depressed, moderate F31.32 [place] [address] [place] 45246287- 3155 May, Bipolar 1 disorder, depressed, moderate F31.32 [place] [id number] [place] [address] [address] May, Other specified abnormal findings of blood chemistry R79.89 [place] [address] [place] [id number]- 1106 08 May, 2017 Essential hypertension I10 ; Acquired hypothyroidism E03.9 ; Gastroesophageal reflux disease with esophagitis K21.0 ; Hair loss L65.9 ; Hypokalemia, gastrointestinal losses E87.6 ; Pre-diabetes R73.03 ; Candidal dermatitis B37.2 and Pure hypercholesterolemia E78.00 [place] [id number] [place] [address] 21447- 9517 Apr, Bipolar 1 disorder, depressed, moderate F31.32 [place] [address] 45473- 0626 Apr, Bipolar 1 disorder, depressed, moderate F31.32 [place] [address] 52968- 2147 Apr, Bipolar 1 disorder, depressed, moderate F31.32 and Anxiety F41.9 [facility] [address] [address]15 Mar, Encounter for immunization Z23 ; Fall, initial encounter W19.XXXA ; Rib pain on left side R07.81 and Left hip pain M25.552 [place] [address] 65573- 2262 Mar, Bipolar 1 disorder, depressed, moderate F31.32 and Anxiety F41.9 [place] [address] 66562- 5890 Mar, Bipolar 1 disorder, depressed, moderate F31.32 ; Anxiety F41.9 ; Borderline personality disorder F60.3 and Polysubstance (including opioids) dependence with physiol dependence F19.20 [place] [address] 11164- 6224 Mar, Bipolar 1 disorder, depressed, moderate F31.32 and Anxiety F41.9 [facility] [address] 24343 -7017 Feb, Irritant contact dermatitis, unspecified trigger L24.9 [place] [address] 95111- 5751 Feb, [place] [address] 87821- 3791 Feb, [place] [address] [place] [address] 14 Feb, 2017 Bipolar 1 disorder, depressed, moderate F31.32 and Anxiety F41.9 [place] [address] [place] 246628- 1345 14 Feb, 2017 Acute non-recurrent maxillary sinusitis J01.00 [facility] [address] 379656- 9040 11 Feb, 2017 [place] [address] [place] 246627- 9476 Feb, Bipolar 1 disorder, depressed, moderate F31.32 [place] [address] [place] 246628- 2716 29 Jan, 2017 [place] [address] [place] [id number]- 4176 29 Jan, 2017 Bipolar 1 disorder, depressed, moderate F31.32 ; Anxiety F41.9 ; Borderline personality disorder F60.3 and Polysubstance (including opioids) dependence with physiol dependence F19.20 [place] [id number] [place] [address] 46391- 6859 27 Jan, 2017 Bipolar 1 disorder, depressed, moderate F31.32 and Anxiety F41.9 [place] [id number] [place] [address] 42760- 0077 20 Jan, 2017 Bipolar 1 disorder, depressed, moderate F31.32 ; Anxiety F41.9 ; Borderline personality disorder F60.3 and Polysubstance (including opioids) dependence with physiol dependence F19.20 [place] [id number] [place] [address] 04818- 6808 13 Jan, 2017 Bipolar 1 disorder, depressed, moderate F31.32 and Anxiety F41.9 [place] [address] [place] [id number]- 7958 23 Dec, 2016 Hypokalemia, gastrointestinal losses E87.6 ; GERD ( gastroesophageal reflux disease) K21.9 and Bipolar 1 disorder, depressed, moderate F31.32 [place] [id number] [place] [address] 06620- 9535 Dec, Bipolar 1 disorder, depressed, moderate F31.32 and Anxiety F41.9 [facility] [place] [address] 7[address]02 -[address]603 Dec, [place] [address] 76535- 1299 Dec, [facility] [address] [address] Dec, Fall (on) (from) other stairs and steps, initial encounter W10.8XXA ; Laceration of left lower extremity, initial encounter S81.812A ; Contusion of right knee, initial encounter S80.01XA and Contusion of right shoulder, initial encounter S40.011A [address] [address]- [address]123 Dec, Bipolar 1 disorder, depressed, moderate F31.32 ; Anxiety F41.9 ; Borderline personality disorder F60.3 and Polysubstance (including opioids) dependence with physiol dependence F19.[address] 92338- 6042 Dec, Bipolar 1 disorder, depressed, moderate F31.32 and Anxiety F41.9 [place] [id number] [place] [address] 43590- 3990 Dec, [address] 49987- 1293 Dec, Hospital discharge follow-up Z09 ; Nephrolithiasis N20.0 ; Essential hypertension I10 ; Gastroesophageal reflux disease with esophagitis K21.0 and Anxiety F41.[address] 58101- 7754 Nov, [facility] W[facility] IN [address] 601[address] 24 Sep, 2017 Dysuria R30.0 and Acute cystitis with hematuria N30.01 [facility] [id number] [place] [address] 32048 -6992 24 Nov, 2016 [place] [address] [place] 246627- 4978 19 Nov, 2016 [facility] [address] 81118- 6558 19 Nov, 2016 Gastroesophageal reflux disease with esophagitis K21.0 ; Hypercholesteremia E78.00 and Acquired hypothyroidism E03.9 [facility] [address] 04748 -[address]6 18 Nov, 2016 Left wrist pain M25.532 and Contusion of left wrist, initial encounter S60.212A [place] [address] 93843- 4283 18 Nov, 2016 Bipolar 1 disorder, depressed, moderate F31.32 ; Anxiety F41.9 ; Borderline personality disorder F60.3 and Polysubstance (including opioids) dependence with physiol dependence F19.20 [facility] [address] 89646 -5989 15 Nov, 2016 Abdominal pain R10.9 and GERD (gastroesophageal reflux disease) K21.9 [place] [address] 95954- 6797 12 Nov, 2016 Hypokalemia, gastrointestinal losses E87.6 [place] [address] 50995- 7040 11 Nov, 2016 Dehydration E86.0 ; Hypokalemia, gastrointestinal losses E87.6 and Vaginal candidiasis B37.3 [place] [address] 60110- 0098 08 Nov, 2016 Abnormal weight loss R63.4 ; Diarrhea, unspecified R19.7 ; Vomiting, unspecified R11.10 ; Generalized abdominal pain R10.84 and Decreased breath sounds R06.89 [place] [address] 86107- 0776 Oct, Bipolar 1 disorder, depressed, moderate F31.32 and Anxiety F41.9 [place] [address] [place] 246622- 9890 Sep, Bipolar 1 disorder, depressed, moderate F31.32 ; Anxiety F41.9 ; Borderline personality disorder F60.3 and Polysubstance (including opioids) dependence with physiol dependence F19.20 [place] [address] 07913- 2714 Sep, Bipolar 1 disorder, depressed, moderate F31.32 and Anxiety F41.9 [place] [address] 02947- 1124 Sep, Bipolar 1 disorder, depressed, moderate F31.32 [place] [address] 10939- 2848 Sep, Bipolar 1 disorder, depressed, moderate F31.32 and Anxiety F41.9 [facility] [address] 35018 -7006 Sep, Pain of toe of right foot M79.674 [place] [address] 22154- 9907 Sep, [facility] [address] 76544 -0527 Sep, Cellulitis of right ankle L03.115 [place] [address] 87113- 5091 Sep, Bipolar 1 disorder, depressed, moderate F31.32 and Anxiety F41.9 [place] [address] 54800- 2275 Sep, [place] [address] 20787- 5753 Sep, [place] [address] 39157- 2354 Sep, Bipolar 1 disorder, depressed, moderate F31.32 and Anxiety F41.9 [place] [address] [id number] [place] [address] 71747- 2900 Sep, Accidental spider bite T63.301A [facility] [id number] [place] [address] 24081- 2714 Aug, Bipolar 1 disorder, depressed, moderate F31.32 ; Anxiety F41.9 ; Borderline personality disorder F60.3 and Polysubstance (including opioids) dependence with physiol dependence F19.20 [place] [address] 67215- 0370 Aug, [place] [address] 28662- 5375 Aug, Bipolar 1 disorder, depressed, moderate F31.32 and Anxiety F41.9 [place] [id number] [place] [address] 55409- 5801 Aug, Pre-diabetes R73.03 ; Acute seasonal allergic rhinitis due to pollen J30.1 ; Hypercholesteremia E78.00 and Nausea R11.0 [place] [id number] [place] [address] 92332- 7559 Aug, [place] [id number] [place] [address] 59768- 3650 Aug, Bipolar 1 disorder, depressed, moderate F31.32 and Anxiety F41.9 [place] [id number] [place] [address] 31215- 2317 Aug, [place] [id number] [place] [address] 58880- 5664 Aug, [place] [id number] [place] [address] 53673- 6672 Aug, [place] [id number] [place] [address] 52305- 6675 Aug, Bipolar 1 disorder, depressed, moderate F31.32 and Anxiety F41.9 [facility] [id number] [place] [address] 65458- 4078 Aug, [facility] [id number] [place] [address] 64739 -7102 Aug, Insect bite, initial encounter W57.XXXA and Cellulitis of left lower leg L03.116 [place] [address] 34252- 6032 Aug, Bipolar 1 disorder, depressed, moderate F31.32 and Borderline personality disorder F60.3 [place] [address] 40815- 7605 July, [place] [address] 22277- 9942 July, [facility] [address] 39523- 4929 July, Encounter for routine adult health examination with abnormal findings Z00.01 ; History of esophageal cancer Z85.01 ; Bipolar 1 disorder, depressed, moderate F31.32 ; Anxiety F41.9 ; Acquired hypothyroidism E03.9 ; Essential hypertension I10 ; Gastroesophageal reflux disease with esophagitis K21.0 and Encounter for immunization Z23 [place] [id number] [place] [address] 20625- 3887 July, Bipolar 1 disorder, depressed, moderate F31.32 and Anxiety F41.9 [facility] [id number] [place] [address] 67880- 7008 July, [place] [address] 10117- 5986 July, Bipolar 1 disorder, depressed, moderate F31.32 and Anxiety F41.9 [place] [id number] [place] [address] 98144- 2137 July, Bipolar 1 disorder, depressed, moderate F31.32 [place] [id number] [place] [address] 41097- 5840 July, Bipolar 1 disorder, depressed, moderate F31.32 and Anxiety F41.9 [facility] [id number] [place] [address] 99066- 4856 Jun, Bipolar 1 disorder, depressed, moderate F31.32 [facility] [id number] [place] [address] 17945- 5690 Jun, Bipolar 1 disorder, depressed, moderate F31.32 and Borderline personality disorder F60.3 [place] [id number] [place] [address] 72571- 0769 Jun, Bipolar 1 disorder, depressed, moderate F31.32 [place] [id number] [place] [address] 33634- 5046 Jun, Bipolar 1 disorder, depressed, moderate F31.32 [place] [id number] [place] [address] 75767- 1498 May, Bipolar 1 disorder, depressed, moderate F31.32 and Anxiety F41.9 [place] [address] [id number] [place] [address] 86308- 8106 May, Bipolar 1 disorder, depressed, moderate F31.32 and Anxiety F41.9 [place] [id number] [place] [address] 38012- 6546 May, Bipolar 1 disorder, depressed, moderate F31.32 and Anxiety F41.9 [facility] [address] [place] [address] 95343- 7145 May, Bipolar 1 disorder, depressed, moderate F31.32 and Borderline personality disorder F60.3 [facility] [id number] [place] [address] 88335- 2084 14 May, 2016 [facility] [address] [place] [address] 02019- 5408 13 May, 2016 Bipolar 1 disorder, depressed, moderate F31.32 and Anxiety F41.9 [facility] [address] [place] [address] 91388- 3881 May, Bipolar 1 disorder, depressed, moderate F31.32 and Anxiety F41.9 [facility] [id number] [place] [address] 16404- 0272 May, [facility] [id number] [place] [address] 82410- 5280 May, Bipolar 1 disorder, depressed, moderate F31.32 [place] [id number] [place] [address] 76057- 7934 May, Bipolar 1 disorder, depressed, moderate F31.32 and Generalized anxiety disorder F41.1 [place] [address] [id number] [place] [address] 20904- 5652 Apr, Bipolar 1 disorder, depressed, moderate F31.32 and Anxiety F41.9 [place] [address] [place] [id number] [place] [address] 22398- 8084 Apr, [place] [address] [id number] [place] [address] 34526- 8820 Apr, Bipolar 1 disorder, depressed, moderate F31.32 and Anxiety F41.9 [place] [address] [place] [address] 75501- 0840 Apr, Bipolar 1 disorder, depressed, moderate F31.32 and Anxiety F41.9 [place] [address] [place] [address] 29849- 4622 Apr, Bipolar affective disorder, depressed, severe F31.4 and Generalized anxiety disorder F41.1 [place] [id number] [place] [address] 70539- 6614 Mar, Bipolar 1 disorder, depressed, moderate F31.32 and Anxiety F41.9 [facility] [address] [place] [address] 42774- 2484 Mar, Bipolar 1 disorder, depressed, moderate F31.32 and Anxiety F41.9 [facility] [address] [place] [address] 04834- 4712 Mar, Bipolar 1 disorder, mixed, moderate F31.62 [facility] [address] [place] [address] 23798- 4756 Mar, [facility] [id number] [place] [address] 72340- 0545 Mar, Bipolar 1 disorder, mixed, moderate F31.62 ; Generalized anxiety disorder F41.1 and 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 [facility] [id number] [place] [address] 47731- 1398 Feb, Bipolar 1 disorder, depressed, moderate F31.32 and Anxiety F41.9 [facility] [id number] [place] [address] 17634- 3100 Feb, Bipolar 1 disorder, depressed, moderate F31.32 and Other alf (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 Z79.899 [facility] [id number] [place] [address] 93977- 5299 Feb, [facility] [id number] [place] [address] 05232- 8574 Feb, Bipolar 1 disorder, depressed, moderate F31.32 and Anxiety F41.9 [facility] [address] [place] [address] 23120- 6200 Feb, Bipolar 1 disorder, depressed, moderate F31.32 and Other alf (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 Z79.899 [facility] [address] [place] [address] 25551- 4888 Feb, Bipolar 1 disorder, depressed, moderate F31.32 and Anxiety F41.9 [facility] [address] [address]- 450[address] Dec, Bipolar 1 disorder, depressed, moderate F31.32 and Anxiety F41.9 [facility] [id number] [address]- 2546 Oct, [facility] [address] [facility] [id number] [address] 2546 Oct, [facility] [address] [facility] [id number], [place] [address]- 2546 May, [facility] [address] [facility] [id number], [place] [address]- 2546 May, [facility] [address] [facility] [id number], [place] [address]- 2546 Mar, [facility] [address] [facility] [id number], [place] [address]- 8594 Mar, IMMUNIZATIONS No Known Immunizations SOCIAL HISTORY Never Assessed REASON FOR VISIT Lab results PLAN OF CARE VITAL SIGNS MEDICATIONS Medication Instructions Dosage Frequency Start Date End Date Duration Status Vitamin D3 400 UNIT Orally Once a day 1 tablet 24h May, Sep, 30 day(s) Active RESULTS No Results PROCEDURES No Known [...] surgeries) Medical History HYPERLIPIDEMIA Medical History PRE-DIABETES Surgical History Several surgeries for infertility Surgical [...] Cancer Head and Neck 2004 Hospitalization History [facility] Psychiatric Admission 2015
--- OUTSIDE RECORDS SUMMARY | 2017-09-29 18:43 | XMS REPORT ---
Author Author ADELE DICK Organization [facility] Address [address] [place] [address] Care Team Providers Care Whirley Operator Name Role Phone ANGULODICK Casillas Unavailable PROBLEMS Type Condition ICD9-CM Code ILO40-OK Code Onset Dates Condition Status SNOMED Code Problem Gastroesophageal reflux disease with esophagitis K21.0 Active 375465929 Problem Polysubstance (including opioids) dependence with physiol dependence F19.20 Active 90001486 Problem History of esophageal cancer Z85.01 Active 601503724 Problem Seasonal allergies J30.2 Active 792558539 Problem Pre-diabetes R73.03 Active 121082335 Problem GERD (gastroesophageal reflux disease) K21.9 Active 225276100 Problem Borderline personality disorder F60.3 Active 08227423 Problem Pure hypercholesterolemia E78.00 Active 131301561 Problem Nephrolithiasis N20.0 Active 86318391 Problem STATE HEP A (ADULT) DX V05.3 Active 893806731 Problem Bipolar 1 disorder, depressed, moderate F31.32 Active 30298480 Problem Anxiety F41.9 Active 53502626 Problem Vitamin D insufficiency E55.9 Active 615184994 Problem Essential hypertension I10 Active 94332934 Problem Elevated serum creatinine R79.89 Active 837573024 Problem Acquired hypothyroidism E03.9 Active 872328596 ALLERGIES Substance Reaction Event Type Date Status Adhesive Tape Rash Drug Allergy May, Active Zolpidem Tartrate Client OVERDOSE Drug Allergy May, Active Penicillamine Hives Drug Allergy May, Active Codeine Sulfate Nausea and Vomitting Drug Allergy May, Active ENCOUNTERS Encounter Location Date Diagnosis [facility] [address] [facility] [id number] [address] Oct, [facility] [address] [facility] [id number] [address] Sep, [facility] [address] [place] [id number] [place] [address] 27396- 8160 Sep, [facility] [address] [id number] [place] [address] 59361- 6041 Sep, Bipolar 1 disorder, depressed, moderate F31.32 [place] [address] [place] [id number] [place] [address] 88497- 4098 Sep, Bipolar 1 disorder, depressed, moderate F31.32 [facility] [address] [place] [id number] [place] [address] 74844- 4024 Sep, Essential hypertension I10 ; Acquired hypothyroidism E03.9 ; Anxiety F41.9 ; Chronic nausea R11.0 and Irritant contact dermatitis due to plants, except food L24.7 [place] [address] [place] [id number] [place] [address] 89094- 5959 Aug, Bipolar 1 disorder, depressed, moderate F31.32 [place] [address] [place] [id number] [place] [address] 02397- 5276 Aug, Bipolar 1 disorder, depressed, moderate F31.32 [facility] [address] [place] [id number] [place] [address] 26082- 4257 Aug, Bipolar 1 disorder, depressed, moderate F31.32 [place] [address] [place] [id number] [place] [address] 50030- 9290 July, Candidal dermatitis B37.2 [place] [address] [place] [id number] [place] [address] 37455- 4282 July, Acquired hypothyroidism E03.9 [facility] [address] [place] [id number] [place] [address] 21557- 0477 July, Bipolar 1 disorder, depressed, moderate F31.32 [facility] [id number] [place] [address] 82405 -4215 July, Seasonal allergies J30.2 [facility] [address] [id number] [place] [address] 61255- 9248 July, Bipolar 1 disorder, depressed, moderate F31.32 [facility] [id number] [place] [address] 30851- 1181 Jun, Pre-diabetes R73.03 [facility] [id number] [place] [address] Jun, Bipolar 1 disorder, depressed, moderate F31.32 ; Anxiety F41.9 ; Borderline personality disorder F60.3 ; Other specified abnormal findings of blood chemistry R79.89 and Polysubstance (including opioids) dependence with physiol dependence F19.20 [facility] [id number] [place] [address] 695932- 4918 Jun, Bipolar 1 disorder, depressed, moderate F31.32 [facility] [id number] [place] [address] May, Bipolar 1 disorder, depressed, moderate F31.32 [facility] [address] 03568- 4931 May, Bipolar 1 disorder, depressed, moderate F31.32 [facility] [id number] [place] [address] 74357- 5506 May, [facility] [id number] [place] [address] 72584- 7399 May, [facility] [id number] [place] [address] 02525- 4956 May, Bipolar 1 disorder, depressed, moderate F31.32 [facility] [id number] [place] [address] 49837- 4954 May, Bipolar 1 disorder, depressed, moderate F31.32 [facility] [address] 62853- 3313 May, Other specified abnormal findings of blood chemistry R79.89 [facility] [id number] [place] [address] 74589- 0051 08 May, 2017 Essential hypertension I10 ; Acquired hypothyroidism E03.9 ; Gastroesophageal reflux disease with esophagitis K21.0 ; Hair loss L65.9 ; Hypokalemia, gastrointestinal losses E87.6 ; Pre-diabetes R73.03 ; Candidal dermatitis B37.2 and Pure hypercholesterolemia E78.00 [facility] [place] [id number] [place] [address] 09354- 6879 Apr, Bipolar 1 disorder, depressed, moderate F31.[address] 49809- 0074 Apr, Bipolar 1 disorder, depressed, moderate F31.[address] [address]662 0275 Apr, Bipolar 1 disorder, depressed, moderate F31.32 and Anxiety F41.9 [facility] [address] [address] Mar, Encounter for immunization Z23 ; Fall, initial encounter W19.XXXA ; Rib pain on left side R07.81 and Left hip pain M25.[address] 57549- 2099 Mar, Bipolar 1 disorder, depressed, moderate F31.32 and Anxiety F41.[address] 10284- 4628 Mar, Bipolar 1 disorder, depressed, moderate F31.32 ; Anxiety F41.9 ; Borderline personality disorder F60.3 and Polysubstance (including opioids) dependence with physiol dependence F19.[address] 42696- 3364 Mar, Bipolar 1 disorder, depressed, moderate F31.32 and Anxiety F41.9 [facility] [address] [place] [address] 17766 -8178 Feb, Irritant contact dermatitis, unspecified trigger L24.[address] 27637- 8213 Feb, [facility] [address] [place] [address] 07118- 3193 Feb, [facility] [id number] [place] [address]- [address] Feb, Bipolar 1 disorder, depressed, moderate F31.32 and Anxiety F41.9 [facility] [address] [address] [id number] [place] [address] 114465- 2170 Feb, Acute non-recurrent maxillary sinusitis J01.00 [facility] [id number] [place] [address] 41792- 7956 Feb, [facility] [id number] [place] [address]- 24[address] Feb, Bipolar 1 disorder, depressed, moderate F31.32 [facility] [id number] [place] [address] 11118- 2983 Jan, [facility] [id number] [place] [address] 20553- 9867 29 Jan, 2017 Bipolar 1 disorder, depressed, moderate F31.32 ; Anxiety F41.9 ; Borderline personality disorder F60.3 and Polysubstance (including opioids) dependence with physiol dependence F19.20 [facility] [id number] [place] [address] 93710- 7826 27 Jan, 2017 Bipolar 1 disorder, depressed, moderate F31.32 and Anxiety F41.9 [facility] [address] [place] [address] 96626- 1675 20 Jan, 2017 Bipolar 1 disorder, depressed, moderate F31.32 ; Anxiety F41.9 ; Borderline personality disorder F60.3 and Polysubstance (including opioids) dependence with physiol dependence F19.20 [facility] [address] [place] [address] 68733- 5518 13 Jan, 2017 Bipolar 1 disorder, depressed, moderate F31.32 and Anxiety F41.9 [facility] [address] [place] [address] 46[address]- 8150 Dec, Hypokalemia, gastrointestinal losses E87.6 ; GERD ( gastroesophageal reflux disease) K21.9 and Bipolar 1 disorder, depressed, moderate F31.32 [facility] [place] [address] [place] [id number]- [address] Dec, Bipolar 1 disorder, depressed, moderate F31.32 and Anxiety F41.9 [facility] [place] [address] 6[address]2412 Dec, [place] [address] 02920- 5606 Dec, [facility] [place] [address] 7[address]9 Dec, Fall (on) (from) other stairs and steps, initial encounter W10.8XXA ; Laceration of left lower extremity, initial encounter S81.812A ; Contusion of right knee, initial encounter S80.01XA and Contusion of right shoulder, initial encounter S40.011A [place] [address] 97926- 9633 Dec, Bipolar 1 disorder, depressed, moderate F31.32 ; Anxiety F41.9 ; Borderline personality disorder F60.3 and Polysubstance (including opioids) dependence with physiol dependence F19.20 [place] [address] 01182- 3117 Dec, Bipolar 1 disorder, depressed, moderate F31.32 and Anxiety F41.9 [place] [address] 37416- 0097 Dec, [address] 93041- 6711 Dec, Hospital discharge follow-up Z09 ; Nephrolithiasis N20.0 ; Essential hypertension I10 ; Gastroesophageal reflux disease with esophagitis K21.0 and Anxiety F41.[address] [place] [address]- 45[address] 28 Nov, 2016 [facility] [address] 02931 -5100 24 Nov, 2016 Dysuria R30.0 and Acute cystitis with hematuria N30.01 [facility] [address] 52991 -1459 24 Nov, 2016 [facility] [address] 14616- 3451 19 Nov, 2016 [place] [address] 55236- 0239 19 Nov, 2016 Gastroesophageal reflux disease with esophagitis K21.0 ; Hypercholesteremia E78.00 and Acquired hypothyroidism E03.9 [facility] [address] 12857 -8153 18 Nov, 2016 Left wrist pain M25.532 and Contusion of left wrist, initial encounter S60.212A [place] [address] 43633- 9499 18 Nov, 2016 Bipolar 1 disorder, depressed, moderate F31.32 ; Anxiety F41.9 ; Borderline personality disorder F60.3 and Polysubstance (including opioids) dependence with physiol dependence F19.20 [facility] [id number] [place] [address] 31708 -5476 15 Nov, 2016 Abdominal pain R10.9 and GERD (gastroesophageal reflux disease) K21.9 [facility] [address] [id number] [place] [address] 23056- 0196 12 Nov, 2016 Hypokalemia, gastrointestinal losses E87.6 [place] [address] 70954- 9329 11 Nov, 2016 Dehydration E86.0 ; Hypokalemia, gastrointestinal losses E87.6 and Vaginal candidiasis B37.3 [place] [address] 61809- 1121 08 Nov, 2016 Abnormal weight loss R63.4 ; Diarrhea, unspecified R19.7 ; Vomiting, unspecified R11.10 ; Generalized abdominal pain R10.84 and Decreased breath sounds R06.89 [place] [address] 42341- 1259 Oct, Bipolar 1 disorder, depressed, moderate F31.32 and Anxiety F41.[address] 81511- 4088 Sep, Bipolar 1 disorder, depressed, moderate F31.32 ; Anxiety F41.9 ; Borderline personality disorder F60.3 and Polysubstance (including opioids) dependence with physiol dependence F19.[address] 04250- 2796 Sep, Bipolar 1 disorder, depressed, moderate F31.32 and Anxiety F41.[address] 16229- 3577 Sep, Bipolar 1 disorder, depressed, moderate F31.32 [place] [address] 56134- 7645 Sep, Bipolar 1 disorder, depressed, moderate F31.32 and Anxiety F41.9 [facility] [address] [address] -1023 Sep, Pain of toe of right foot M79.674 [place] [address] 56517- 6547 Sep, [facility] [address] 66013 -4561 Sep, Cellulitis of right ankle L03.[address] 24342- 5902 Sep, Bipolar 1 disorder, depressed, moderate F31.32 and Anxiety F41.9 [place] [address] 57519- 0755 Sep, [facility] [address] [place] [address] 99496- 7617 Sep, [facility] [id number] [place] [address] 75962- 5132 Sep, Bipolar 1 disorder, depressed, moderate F31.32 and Anxiety F41.9 [facility] [address] [place] [id number] [place] [address] 45579- 7108 Sep, Accidental spider bite T63.301A [facility] [address] [id number] [place] [address] 40896- 4738 Aug, Bipolar 1 disorder, depressed, moderate F31.32 ; Anxiety F41.9 ; Borderline personality disorder F60.3 and Polysubstance (including opioids) dependence with physiol dependence F19.20 [facility] [place] [address] [place] [id number] [place] [address] 99863- 8316 Aug, [place] [address] 98136- 6686 Aug, Bipolar 1 disorder, depressed, moderate F31.32 and Anxiety F41.9 [facility] [place] [address] [place] [id number] [place] [address] 23684- 7909 Aug, Pre-diabetes R73.03 ; Acute seasonal allergic rhinitis due to pollen J30.1 ; Hypercholesteremia E78.00 and Nausea R11.0 [facility] [place] [address] [id number] [place] [address] 90384- 7637 Aug, [facility] [address] [place] [id number] [place] [address] 18728- 6177 Aug, Bipolar 1 disorder, depressed, moderate F31.32 and Anxiety F41.9 [facility] [address] [place] [id number] [place] [address] 16316- 4318 Aug, [facility] [address] [place] [id number] [place] [address] 71766- 7468 Aug, [facility] [place] [address] [place] [address] [place] [address] 75681- 6660 07 Aug, 2016 [place] [address] 25884- 8598 Aug, Bipolar 1 disorder, depressed, moderate F31.32 and Anxiety F41.9 [place] [address] 84915- 8647 Aug, [facility] [address] 20324 -8227 Aug, Insect bite, initial encounter W57.XXXA and Cellulitis of left lower leg L03.[address] 64692- 5700 Aug, Bipolar 1 disorder, depressed, moderate F31.32 and Borderline personality disorder F60.[address] 39657- 7890 July, [address] 14626- 4616 July, [address] 06013- 7866 July, Encounter for routine adult health examination with abnormal findings Z00.01 ; History of esophageal cancer Z85.01 ; Bipolar 1 disorder, depressed, moderate F31.32 ; Anxiety F41.9 ; Acquired hypothyroidism E03.9 ; Essential hypertension I10 ; Gastroesophageal reflux disease with esophagitis K21.0 and Encounter for immunization Z23 [place] [id number] [place] [address] 99143- 6840 July, Bipolar 1 disorder, depressed, moderate F31.32 and Anxiety F41.[address] 22895- 4212 July, [place] [address] 08940- 4826 July, Bipolar 1 disorder, depressed, moderate F31.32 and Anxiety F41.9 [facility] [address] [place] [address] 18221- 3348 July, Bipolar 1 disorder, depressed, moderate F31.32 [facility] [address] [id number] [place] [address]- 8016 July, Bipolar 1 disorder, depressed, moderate F31.32 and Anxiety F41.9 [facility] [address] [place] [id number] [place] [address]- 1264 Jun, Bipolar 1 disorder, depressed, moderate F31.32 [facility] [place] [address] [place] [id number] [place] [address] 973858- 3098 Jun, Bipolar 1 disorder, depressed, moderate F31.32 and Borderline personality disorder F60.3 [facility] [address] [place] [id number] [place] [address] 07106- 3112 Jun, Bipolar 1 disorder, depressed, moderate F31.32 [facility] [address] [place] [id number] [place] [address] 95626- 1880 Jun, Bipolar 1 disorder, depressed, moderate F31.32 [facility] [address] [place] [id number] [place] [address] 10182- 1151 May, Bipolar 1 disorder, depressed, moderate F31.32 and Anxiety F41.9 [place] [address] [place] [address] 89696- 8919 May, Bipolar 1 disorder, depressed, moderate F31.32 and Anxiety F41.9 [place] [address] [place] [id number] [place] [address] 49003- 8152 May, Bipolar 1 disorder, depressed, moderate F31.32 and Anxiety F41.9 [place] [address] [place] [id number] [place] [address] 19518- 2321 May, Bipolar 1 disorder, depressed, moderate F31.32 and Borderline personality disorder F60.3 [facility] [address] [place] [id number] [place] [address] 95995- 2457 May, [facility] [address] [place] [address] 00886- 8716 May, Bipolar 1 disorder, depressed, moderate F31.32 and Anxiety F41.9 [facility] [address] [place] [id number] [place] [address] 46306- 4357 May, Bipolar 1 disorder, depressed, moderate F31.32 and Anxiety F41.9 [facility] [address] [place] [id number] [place] [address] 74903- 6217 May, [facility] [address] [place] [id number] [place] [address] 61091- 3214 May, Bipolar 1 disorder, depressed, moderate F31.32 [place] [address] [place] [id number] [place] [address] 44429- 9936 May, Bipolar 1 disorder, depressed, moderate F31.32 and Generalized anxiety disorder F41.1 [place] [address] [place] [id number] [place] [address] 15336- 1196 Apr, Bipolar 1 disorder, depressed, moderate F31.32 and Anxiety F41.9 [place] [address] [place] [id number] [place] [address] 19081- 0586 Apr, [place] [address] [place] [id number] [place] [address] 39335- 9696 Apr, Bipolar 1 disorder, depressed, moderate F31.32 and Anxiety F41.9 [place] [address] [place] [id number] [place] [address] 35279- 2822 Apr, Bipolar 1 disorder, depressed, moderate F31.32 and Anxiety F41.9 [place] [address] [place] [id number] [place] [address] 60721- 0686 07 Apr, 2016 Bipolar affective disorder, depressed, severe F31.4 and Generalized anxiety disorder F41.1 [place] [address] [place] [id number] [place] [address] 04370- 9681 Mar, Bipolar 1 disorder, depressed, moderate F31.32 and Anxiety F41.9 [facility] [address] [address]- 3409 Mar, Bipolar 1 disorder, depressed, moderate F31.32 and Anxiety F41.9 [facility] [address] [place] [address] 59391- 7302 Mar, Bipolar 1 disorder, mixed, moderate F31.62 [facility] [address] [place] [id number] [place] [address] 70449- 2342 Mar, [facility] [address] [place] [id number] [place] [address] 21340- 5230 Mar, Bipolar 1 disorder, mixed, moderate F31.62 ; Generalized anxiety disorder F41.1 and Other half-way (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 Z79.899 [place] [address] [place] [id number] [place] [address] 64025- 5814 Feb, Bipolar 1 disorder, depressed, moderate F31.32 and Anxiety F41.9 [facility] [address] [place] [address] 48358- 8270 Feb, Bipolar 1 disorder, depressed, moderate F31.32 and Other half-way (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 Z79.899 [facility] [address] [place] [address] 26728- 4245 Feb, [facility] [address] [place] [id number] [place] [address] 88135- 6211 Feb, Bipolar 1 disorder, depressed, moderate F31.32 and Anxiety F41.9 [facility] [address] [place] [address] 34181- 7489 Feb, Bipolar 1 disorder, depressed, moderate F31.32 and Other half-way (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 Z79.899 [facility] [address] [place] [address] 59445- 5766 Feb, Bipolar 1 disorder, depressed, moderate F31.32 and Anxiety F41.9 [place] [address] [place] [id number] [address]- 9973 Dec, Bipolar 1 disorder, depressed, moderate F31.32 and Anxiety F41.9 [place] [address] [place] [id number] [address]- 9996 Oct, [facility] [address] [address]- 4496 Oct, [place] [address] [address]- 0906 May, [place] [address] [address]- 9859 May, [place] [address] [address]- 4922 Mar, [place] [address] [place] [id number] [address]- 0325 Mar, IMMUNIZATIONS No Known Immunizations SOCIAL HISTORY Never Assessed 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 PLAN OF CARE Activity Details Follow Up 3 Months Reason:CHM/HTN VITAL SIGNS Height 67.0 in 2017-05-11 Weight 172 lbs 2017-05-11 Temperature 99.7 degrees Fahrenheit 2017-05-11 Heart Rate 106 bpm 2017-05-11 Respiratory Rate 20 2017-05-11 BMI 26.94 kg/m2 2017-05-11 Blood pressure systolic 108 mmHg 2017-05-11 Blood pressure diastolic 74 mmHg 2017-05-11 MEDICATIONS Medication Instructions Dosage Frequency Start Date End Date Duration Status Omeprazole 40 MG Orally Once a day 1 capsule 24h 90 days Not-Taking Levothyroxine Sodium 50 MCG Orally Once a day 1 tablet on an empty stomach in the morning 24h Active Protonix 40 MG Orally Once a day 1 tablet 24h Nov, Active Diflucan 150 MG Orally one time 1 tablet Nov, 1 dose Not- Taking Gabapentin 300 MG Orally twice a day as needed for anxiety 1 capsule Jan, 30 days Active Amlodipine Besylate 10 MG TAKE 1 TABLET BY MOUTH EVERY DAY Active Lamotrigine 200 mg Orally Once a day 1 tablet 24h 30 days Active HydrOXYzine HCl 50 mg 1 TABLET 2 TIMES A DAY NEEDED ORALLY 30 DAYS Active Lexapro 20 mg Orally Once a day 1 tablet 24h 10 Mar, 2017 30 day(s) Active Metformin HCl 500 mg Orally Twice a day one tablet daily with evening meal x 1 week then one tablet bid with meals 12h Active Atorvastatin Calcium 20 mg Orally Once a day 1 tablet 24h 07 Aug, 2016 Active Nystatin 966668 UNIT/GM Externally Twice a day apply thin layer to pannus 12h May, Jun, 10 days Active Pantoprazole Sodium 40 MG TAKE 1 TABLET BY MOUTH EVERY DAY 30 Active Potassium Chloride ER 10 MEQ Orally Once a day 1 tablet with food 24h Nov, 90 days Active Nystatin 388135 UNIT/GM Externally Twice a day apply thin layer under pannus 12h May, May, 10 days Active Pyridium 200 MG Orally Three times a day 1 tablet after meals 8h Not-Taking Latuda 40 mg Orally Once a day at supper 1 tablet with food Jan, Active Triamcinolone Acetonide 0.1 % Externally Twice a day 1 application to affected area 12h 5 Not-Taking Ondansetron 8 MG Orally every 8 hrs 1 tablet on the tongue and allow to dissolve 8h Nov, 07 days Active RESULTS No Results PROCEDURES Procedure Date Ordered Result Body Site [facility] May 11, 2017 Hemoglobin Test Send Out 0 dollar May 11, 2017 [facility] VISIT ESTABLISHED PATIENT May 11, 2017 MACKENZIE, ROUTINE* May 11, 2017 INSTRUCTIONS MEDICATIONS ADMINISTERED No Known Medications [...] Cancer Head and Neck 2004 Hospitalization History [facility] Psychiatric Admission 2015
--- OUTSIDE RECORDS SUMMARY | 2017-09-29 18:44 | XMS REPORT ---
Author Author MAXIMILIAN PATEL Organization [facility] Address [address] [place] [address] Care Team Providers Care Medical Front Desk Coordinator Name Role Phone MAXIMILIAN PATEL Unavailable PROBLEMS Type Condition ICD9-CM Code [id number] Code Onset Dates Condition Status SNOMED Code Problem Gastroesophageal reflux disease with esophagitis K21.0 Active 823688688 Problem Polysubstance (including opioids) dependence with physiol dependence F19.20 Active 67104576 Problem History of esophageal cancer Z85.01 Active 464724478 Problem Seasonal allergies J30.2 Active 943168670 Problem Pre-diabetes R73.03 Active 809305035 Problem GERD (gastroesophageal reflux disease) K21.9 Active 588179598 Problem Borderline personality disorder F60.3 Active 57707989 Problem Pure hypercholesterolemia E78.00 Active 226784663 Problem Nephrolithiasis N20.0 Active 21000372 Problem STATE HEP A (ADULT) DX V05.3 Active 697339843 Problem Bipolar 1 disorder, depressed, moderate F31.32 Active 52396746 Problem Anxiety F41.9 Active 16878118 Problem Vitamin D insufficiency E55.9 Active 299349736 Problem Essential hypertension I10 Active 89317907 Problem Elevated serum creatinine R79.89 Active 224251662 Problem Acquired hypothyroidism E03.9 Active 087753694 ALLERGIES Substance Reaction Event Type Date Status Adhesive Tape Rash Drug Allergy Dec, Active Zolpidem Tartrate Client OVERDOSE Drug Allergy Dec, Active Penicillamine Hives Drug Allergy Dec, Active Codeine Sulfate Nausea and Vomitting Drug Allergy Dec, Active ENCOUNTERS Encounter Location Date Diagnosis [facility] [address] [facility] [id number] [address] Sep, [facility] [address] [facility] [id number] [address] Aug, [facility] [address] [place] [id number] [place] [address] 02092- 3669 Aug, [facility] [address] [place] [id number] [place] [address] 09825- 5166 July, Acquired hypothyroidism E03.9 [facility] [address] [place] [id number] [place] [address] 38691- 2254 July, Bipolar 1 disorder, depressed, moderate F31.32 [facility] [place] [facility] [address] [address] July, Seasonal allergies J30.2 [place] [address] 98981- 2281 July, Bipolar 1 disorder, depressed, moderate F31.32 [place] [address] [place] [id number] [place] [address] 33316- 1557 Jun, Pre-diabetes R73.03 [place] [address] 52373- 4538 Jun, Bipolar 1 disorder, depressed, moderate F31.32 ; Anxiety F41.9 ; Borderline personality disorder F60.3 ; Polysubstance (including opioids ) dependence with physiol dependence F19.20 and Other specified abnormal findings of blood chemistry R79.89 [place] [address] [place] [id number] [place] [address] 23218- 6036 Jun, Bipolar 1 disorder, depressed, moderate F31.32 [place] [address] [place] [id number] [place] [address] 06144- 1236 May, Bipolar 1 disorder, depressed, moderate F31.32 [place] [address] [place] [id number] [place] [address] 20485- 9486 May, Bipolar 1 disorder, depressed, moderate F31.32 [place] [address] [place] [id number] [place] [address] 41199- 9994 May, [place] [address] [place] [id number] [place] [address] 90750- 2105 May, [place] [address] 80175- 9934 May, Bipolar 1 disorder, depressed, moderate F31.32 [place] [address] [place] [phone]- 9911 May, Bipolar 1 disorder, depressed, moderate F31.32 [place] [address] 92211- 0461 May, Other specified abnormal findings of blood chemistry R79.89 [place] [address] 10026- 8717 May, Essential hypertension I10 ; Acquired hypothyroidism E03.9 ; Gastroesophageal reflux disease with esophagitis K21.0 ; Hair loss L65.9 ; Hypokalemia, gastrointestinal losses E87.6 ; Pre-diabetes R73.03 ; Candidal dermatitis B37.2 and Pure hypercholesterolemia E78.00 [place] [address] 91551- 9377 Apr, Bipolar 1 disorder, depressed, moderate F31.32 [place] [address] 49137- 4565 Apr, Bipolar 1 disorder, depressed, moderate F31.32 [place] [address] 44997- 1857 Apr, Bipolar 1 disorder, depressed, moderate F31.32 and Anxiety F41.9 [facility] [address] [address] Mar, Encounter for immunization Z23 ; Fall, initial encounter W19.XXXA ; Rib pain on left side R07.81 and Left hip pain M25.552 [place] [address] 23305- 2154 Mar, Bipolar 1 disorder, depressed, moderate F31.32 and Anxiety F41.9 [place] [address] 79830- 7121 Mar, Bipolar 1 disorder, depressed, moderate F31.32 ; Anxiety F41.9 ; Borderline personality disorder F60.3 and Polysubstance (including opioids) dependence with physiol dependence F19.20 [facility] [address] [place] [id number] [place] [address] 83972- 9599 Mar, Bipolar 1 disorder, depressed, moderate F31.32 and Anxiety F41.9 [facility] [address] 6[address] Feb, Irritant contact dermatitis, unspecified trigger L24.9 [facility] [address] 916098- 6047 Feb, [facility] [address] 15728- 4652 Feb, [place] [address] 70059- 3719 Feb, Bipolar 1 disorder, depressed, moderate F31.32 and Anxiety F41.9 [facility] [address] 07910- 5986 Feb, Acute non-recurrent maxillary sinusitis J01.00 [facility] [address] 01017- 0392 Feb, [place] [address] 88731- 9619 Feb, Bipolar 1 disorder, depressed, moderate F31.32 [facility] [address] [place] [id number] [place] [address] 75863- 9334 Jan, [facility] [address] 393953- 2819 Jan, Bipolar 1 disorder, depressed, moderate F31.32 ; Anxiety F41.9 ; Borderline personality disorder F60.3 and Polysubstance (including opioids) dependence with physiol dependence F19.20 [facility] [address] 66851- 502 Jan, Bipolar 1 disorder, depressed, moderate F31.32 and Anxiety F41.[address] 143 Jan, Bipolar 1 disorder, depressed, moderate F31.32 ; Anxiety F41.9 ; Borderline personality disorder F60.3 and Polysubstance (including opioids) dependence with physiol dependence F19.[address] 778 Jan, Bipolar 1 disorder, depressed, moderate F31.32 and Anxiety F41.[address] 505 Dec, Hypokalemia, gastrointestinal losses E87.6 ; GERD ( gastroesophageal reflux disease) K21.9 and Bipolar 1 disorder, depressed, moderate F31.32 [place] [address]192 167 Dec, Bipolar 1 disorder, depressed, moderate F31.32 and Anxiety F41.9 [facility] [place] [address] Dec, [place] [id number]- [address]60 Dec, [facility] [place] [id number] [address] Dec, Fall (on) (from) other stairs and steps, initial encounter W10.8XXA ; Laceration of left lower extremity, initial encounter S81.812A ; Contusion of right knee, initial encounter S80.01XA and Contusion of right shoulder, initial encounter S40.011A [address] 78165- 1566 Dec, Bipolar 1 disorder, depressed, moderate F31.32 ; Anxiety F41.9 ; Borderline personality disorder F60.3 and Polysubstance (including opioids) dependence with physiol dependence F19.20 [place] [address] [place] [id number] [place] [address] 10393- 1293 Dec, Bipolar 1 disorder, depressed, moderate F31.32 and Anxiety F41.9 [place] [address] [place] [phone]- 3798 Dec, [place] 116191- 1959 Dec, Hospital discharge follow-up Z09 ; Nephrolithiasis N20.0 ; Essential hypertension I10 ; Gastroesophageal reflux disease with esophagitis K21.0 and Anxiety F41.9 [place] [address] [place] 312884- [address]150 Nov, [facility] [address] [address] Nov, Dysuria R30.0 and Acute cystitis with hematuria N30.01 [facility] [place] [address] [address]233 Nov, [address] 6[address]79- 6974 Nov, [place] [address] 90619- 3236 Nov, Gastroesophageal reflux disease with esophagitis K21.0 ; Hypercholesteremia E78.00 and Acquired hypothyroidism E03.9 [facility] [address] [address] Nov, Left wrist pain M25.532 and Contusion of left wrist, initial encounter S60.212A [address] 78883- 9643 Nov, Bipolar 1 disorder, depressed, moderate F31.32 ; Anxiety F41.9 ; Borderline personality disorder F60.3 and Polysubstance (including opioids) dependence with physiol dependence F19.20 [facility] [address] [place] [id number] [place] [address] 02267 -5289 15 Nov, 2016 Abdominal pain R10.9 and GERD (gastroesophageal reflux disease) K21.9 [place] [address] 23930- 3078 12 Nov, 2016 Hypokalemia, gastrointestinal losses E87.6 [place] [address] 30731- 5004 11 Nov, 2016 Dehydration E86.0 ; Hypokalemia, gastrointestinal losses E87.6 and Vaginal candidiasis B37.3 [place] [address] 25357- 7830 08 Nov, 2016 Abnormal weight loss R63.4 ; Diarrhea, unspecified R19.7 ; Vomiting, unspecified R11.10 ; Generalized abdominal pain R10.84 and Decreased breath sounds R06.89 [place] [address] 63674- 9443 Oct, Bipolar 1 disorder, depressed, moderate F31.32 and Anxiety F41.9 [place] [address] 71267- 2288 Sep, Bipolar 1 disorder, depressed, moderate F31.32 ; Anxiety F41.9 ; Borderline personality disorder F60.3 and Polysubstance (including opioids) dependence with physiol dependence F19.20 [place] [address] [place] [id number] [place] [address] 36194- 7008 Sep, Bipolar 1 disorder, depressed, moderate F31.32 and Anxiety F41.9 [place] [address] [place] [id number] [place] [address] 79743- 2502 Sep, Bipolar 1 disorder, depressed, moderate F31.32 [place] [address] [place] [id number] [place] [address] 02484- 1153 Sep, Bipolar 1 disorder, depressed, moderate F31.32 and Anxiety F41.9 [facility] [address] [address] Sep, Pain of toe of right foot M79.674 [facility] [address] [place] [id number] [place] [address] 85054- 3252 Sep, [facility] [address] [place] [id number] [place] [address] 23461 -9605 Sep, Cellulitis of right ankle L03.115 [facility] [address] [place] [id number] [place] [address] 83699- 5172 Sep, Bipolar 1 disorder, depressed, moderate F31.32 and Anxiety F41.9 [facility] [address] [place] [id number] [place] [address] 50073- 7934 Sep, [place] [address] 84227- 4087 Sep, [facility] [address] [place] [id number] [place] [address] 59578- 8991 Sep, Bipolar 1 disorder, depressed, moderate F31.32 and Anxiety F41.9 [facility] [address] [place] [id number] [place] [address] 22526- 3015 Sep, Accidental spider bite T63.301A [place] [address] [place] [id number] [place] [address] 14745- 0203 Aug, Bipolar 1 disorder, depressed, moderate F31.32 ; Anxiety F41.9 ; Borderline personality disorder F60.3 and Polysubstance (including opioids) dependence with physiol dependence F19.20 [facility] [address] [place] [address] 02190- 8126 Aug, [facility] [address] [place] [id number] [place] [address] 02879- 5879 Aug, Bipolar 1 disorder, depressed, moderate F31.32 and Anxiety F41.9 [place] [address] [place] [id number] [place] [address] 00919- 3051 Aug, Pre-diabetes R73.03 ; Acute seasonal allergic rhinitis due to pollen J30.1 ; Hypercholesteremia E78.00 and Nausea R11.0 [place] [address] [place] [id number] [place] [address] 87396- 6400 Aug, [place] [address] 95280- 6431 Aug, Bipolar 1 disorder, depressed, moderate F31.32 and Anxiety F41.9 [place] [address] 11760- 7126 Aug, [place] [address] [place] [id number] [place] [address] 10194- 5692 Aug, [place] [address] 67416- 5367 Aug, [place] [address] [place] [id number] [place] [address] 43990- 9335 Aug, Bipolar 1 disorder, depressed, moderate F31.32 and Anxiety F41.9 [place] [address] [place] [id number] [place] [address] 21025- 4882 Aug, [facility] [address] [place] [id number] [place] [address] 43619 -0225 Aug, Insect bite, initial encounter W57.XXXA and Cellulitis of left lower leg L03.116 [place] [address] [place] [id number] [place] [address] 08332- 6264 Aug, Bipolar 1 disorder, depressed, moderate F31.32 and Borderline personality disorder F60.3 [place] [address] [place] [id number] [place] [address] 45903- 2840 July, [place] [address] 76182- 3069 July, [facility] [address] [place] [id number] [place] [address] 29525- 7513 July, Encounter for routine adult health examination with abnormal findings Z00.01 ; History of esophageal cancer Z85.01 ; Bipolar 1 disorder, depressed, moderate F31.32 ; Anxiety F41.9 ; Acquired hypothyroidism E03.9 ; Essential hypertension I10 ; Gastroesophageal reflux disease with esophagitis K21.0 and Encounter for immunization Z23 [place] [address] [place] [id number]- 4206 July, Bipolar 1 disorder, depressed, moderate F31.32 and Anxiety F41.9 [place] [address] [place] 70029373- 5532 July, [place] [address] [place] 312884- 6875 July, Bipolar 1 disorder, depressed, moderate F31.32 and Anxiety F41.9 [place] [address] [place] 312880- 1015 July, Bipolar 1 disorder, depressed, moderate F31.32 [place] [address] 28352- 9787 July, Bipolar 1 disorder, depressed, moderate F31.32 and Anxiety F41.9 [place] [address] 868941- 9120 Jun, Bipolar 1 disorder, depressed, moderate F31.32 [place] [address] 31603- 3360 Jun, Bipolar 1 disorder, depressed, moderate F31.32 and Borderline personality disorder F60.3 [place] [address] 94870- 5294 Jun, Bipolar 1 disorder, depressed, moderate F31.32 [place] [address] 16871- 4547 Jun, Bipolar 1 disorder, depressed, moderate F31.32 [place] [address] [place] 70029067- 3074 May, Bipolar 1 disorder, depressed, moderate F31.32 and Anxiety F41.9 [place] [address] [place] [address] 27232- 9083 May, Bipolar 1 disorder, depressed, moderate F31.32 and Anxiety F41.9 [facility] [address] [place] [id number] [place] [address] 1379 May, Bipolar 1 disorder, depressed, moderate F31.32 and Anxiety F41.9 [facility] [address] [place] [id number] [place] [address] 69636- 9201 May, Bipolar 1 disorder, depressed, moderate F31.32 and Borderline personality disorder F60.3 [place] [address] [place] [id number] [place] [address] 086267- 4872 May, [place] [address] [place] [id number] [place] [address] 66428- 1563 May, Bipolar 1 disorder, depressed, moderate F31.32 and Anxiety F41.9 [place] [address] [place] [id number] [place] [address] 68260- 7939 May, Bipolar 1 disorder, depressed, moderate F31.32 and Anxiety F41.9 [place] [address] [place] [id number] [place] [address] 33060- 9416 May, [place] [address] [place] [id number] [place] [address] 08140- 3857 May, Bipolar 1 disorder, depressed, moderate F31.32 [place] [address] [place] [id number] [place] [address] 46552- 0624 May, Bipolar 1 disorder, depressed, moderate F31.32 and Generalized anxiety disorder F41.1 [place] [address] [place] [id number] [place] [address] 14305- 9858 Apr, Bipolar 1 disorder, depressed, moderate F31.32 and Anxiety F41.9 [facility] [address] [place] [address] 61505- 0549 Apr, [facility] [address] [place] [id number] [place] [address]- 2546 13 Apr, 2016 Bipolar 1 disorder, depressed, moderate F31.32 and Anxiety F41.9 [place] [address] [place] [id number] [place] [address] 80663- 5866 09 Apr, 2016 Bipolar 1 disorder, depressed, moderate F31.32 and Anxiety F41.9 [place] [address] [place] [id number] [place] [address] 33880- 4663 07 Apr, 2016 Bipolar affective disorder, depressed, severe F31.4 and Generalized anxiety disorder F41.1 [place] [address] [place] [id number] [place] [address] 31144- 1174 Mar, Bipolar 1 disorder, depressed, moderate F31.32 and Anxiety F41.9 [place] [address] [place] [id number] [place] [address] 42169- 2591 Mar, Bipolar 1 disorder, depressed, moderate F31.32 and Anxiety F41.9 [place] [address] [place] [id number] [place] [address] 96715- 4221 Mar, Bipolar 1 disorder, mixed, moderate F31.62 [place] [address] [place] [id number] [place] [address] 43970- 9755 Mar, [place] [address] [place] [id number] [place] [address] 33601- 0167 Mar, Bipolar 1 disorder, mixed, moderate F31.62 ; Generalized anxiety disorder F41.1 and Other nursing home (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 Z79.899 [place] [address] [place] [id number] [place] [address] 40019- 6594 Feb, Bipolar 1 disorder, depressed, moderate F31.32 and Anxiety F41.9 [place] [address] [place] [id number] [place] [address] 91769- 9689 Feb, Bipolar 1 disorder, depressed, moderate F31.32 and Other nursing home (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 Z79.899 [place] [address] [place] [id number] [place] [address] 19438- 8286 Feb, [facility] [address] [place] [address] 974195- 9123 Feb, Bipolar 1 disorder, depressed, moderate F31.32 and Anxiety F41.9 [facility] [address] [place] [address] 18504- 9416 Feb, Bipolar 1 disorder, depressed, moderate F31.32 and 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 [place] [address] [place] [id number] [place] [address] 156578- 3974 Feb, Bipolar 1 disorder, depressed, moderate F31.32 and Anxiety F41.9 [place] [address] [place] [id number] [place] [address] 48715- 8324 Dec, Bipolar 1 disorder, depressed, moderate F31.32 and Anxiety F41.9 [place] [address] [place] [id number] [place] [address] 23396- 9864 Oct, [place] [address] [place] [id number] [place] [address] 41188- 9838 Oct, [place] [address] [place] [id number] [place] [address] 83072- 1344 May, [place] [address] [place] [address] 06135- 1210 May, [place] [id number] [place] [address] 13375- 1504 Mar, [place] [address] [place] [address] 47266- 2402 Mar, IMMUNIZATIONS No Known Immunizations SOCIAL HISTORY Never Assessed REASON FOR VISIT both legs/right shoulder pain. Pt fell down three steps at 11:30 this am and injured both legs, states that the left leg is more painful than the right. Lesion on left leg is so painful she gets dizzy when putting weight on it. PLAN OF CARE Activity Details Follow Up 10 days Reason:suture removal VITAL SIGNS Height 67.0 in 2016-12-14 Weight 175 lbs 2016-12-14 Temperature 98.5 degrees Fahrenheit 2016-12-14 Heart Rate 94 bpm 2016-12-14 Respiratory Rate 20 2016-12-14 BMI 27.41 kg/m2 2016-12-14 Blood pressure systolic 116 mmHg 2016-12-14 Blood pressure diastolic 74 mmHg 2016-12-14 MEDICATIONS Medication Instructions Dosage Frequency Start Date End Date Duration Status Atorvastatin Calcium 20 mg Orally Once a day 1 tablet 24h Aug, 90 days Active Flomax 0.4 MG Orally Once a day 1 capsule 24h Active Protonix 40 MG Orally Once a day 1 tablet 24h 15 Nov, 2016 30 day(s) Active Omeprazole 40 MG Orally Once a day 1 capsule 24h 90 days Active Pyridium 200 MG Orally Three times a day 1 tablet after meals 8h Active Amlodipine Besylate 10 MG Orally Once a day 1 tablet 24h Active HydrOXYzine HCl 50 mg Orally 2 times a day as needed for anxiety 1 tablet as needed Dec, 30 days Active Lamotrigine 200 mg Orally Once a day 1 tablet 24h 30 days Active Hydrocodone-Acetaminophen 5-325 MG Orally every 6 hrs 1 tablet as needed 6h Dec, Active Levothyroxine Sodium 50 MCG Orally Once a day 1 tablet on an empty stomach in the morning 24h 90 days Active Lexapro 10 mg 1.5 TABLETS ONCE A DAY ORALLY 30 DAYS 90 days Active Metformin HCl 500 mg Orally Twice a day one tablet daily with evening meal x 1 week then one tablet bid with meals 12h Aug, 90 days Active HydrOXYzine HCl 50 mg Orally 2 times a day as needed 1 tablet 30 days Active Potassium Chloride ER 10 MEQ Orally Once a day 1 tablet with food 24h Nov, Feb, 90 days Active Ondansetron 8 MG Orally every 8 hrs 1 tablet on the tongue and allow to dissolve 8h Nov, 07 days Active Diflucan 150 MG Orally one time 1 tablet Nov, 1 dose Active Seroquel 100 mg Orally Once a day at bedtime 1 tablet 30 Active Lexapro 10 mg Orally Once a day 1 tablet 24h Dec, 30 day(s) Active RESULTS Name Result Date Reference Range Xray : Knee, Right 3 views (IN HOUSE) 2016-12-14 PROCEDURES Procedure Date Ordered Result Body Site X-RAY EXAM OF KNEE, 3 Dec 14, 2016 [facility] ESTABLISHED PATIENT Dec 14, 2016 INSTRUCTIONS MEDICATIONS ADMINISTERED No Known Medications MEDICAL [...] bilat oophorectomy Surgical History kidney stone removal Hospitalization History Surgeries Hospitalization History Cancer Head and Neck 2004 Hospitalization History [facility] Psychiatric Admission 2015
--- OUTSIDE RECORDS SUMMARY | 2017-09-29 18:45 | XMS REPORT ---
Author Author ANGULODICK Casillas Organization [facility] Address [address] [place] [address] Care Team Providers Care Rn Transition Name Role Phone DICK ANGULO Unavailable PROBLEMS Type Condition ICD9-CM Code IHI04-WJ Code Onset Dates Condition Status SNOMED Code Problem Gastroesophageal reflux disease with esophagitis K21.0 Active 942267084 Problem Polysubstance (including opioids) dependence with physiol dependence F19.20 Active 96280230 Problem History of esophageal cancer Z85.01 Active 883590091 Problem Seasonal allergies J30.2 Active 123988746 Problem Pre-diabetes R73.03 Active 388487720 Problem GERD (gastroesophageal reflux disease) K21.9 Active 370685214 Problem Borderline personality disorder F60.3 Active 05433144 Problem Pure hypercholesterolemia E78.00 Active 411132116 Problem Nephrolithiasis N20.0 Active 08842775 Problem STATE HEP A (ADULT) DX V05.3 Active 230787229 Problem Bipolar 1 disorder, depressed, moderate F31.32 Active 99557709 Problem Anxiety F41.9 Active 41153890 Problem Vitamin D insufficiency E55.9 Active 550767427 Problem Essential hypertension I10 Active 47518856 Problem Elevated serum creatinine R79.89 Active 309990279 Problem Acquired hypothyroidism E03.9 Active [id number] ALLERGIES No Information ENCOUNTERS Encounter Location Date Diagnosis [facility] [address] [facility] [id number] [address] Sep, [facility] [address] [address] Aug, [facility] [address] [address] Aug, [facility] [address] [place] [address] [id number] [address] July, Acquired hypothyroidism E03.9 [facility] [address] [place] [address] 07241- 6642 July, Bipolar 1 disorder, depressed, moderate F31.32 [facility] [id number] [place] [address] 40585 -7299 July, Seasonal allergies J30.2 [facility] [address] 15003- 3462 July, Bipolar 1 disorder, depressed, moderate F31.32 [facility] [id number] [place] [address] 37166- 6712 Jun, Pre-diabetes R73.03 [place] [id number] [place] [address] 06450- 6084 Jun, Bipolar 1 disorder, depressed, moderate F31.32 ; Anxiety F41.9 ; Borderline personality disorder F60.3 ; Polysubstance (including opioids ) dependence with physiol dependence F19.20 and Other specified abnormal findings of blood chemistry R79.89 [facility] [id number] [place] [address] 11391- 5785 Jun, Bipolar 1 disorder, depressed, moderate F31.32 [place] [id number] [place] [address] 50358- 7994 May, Bipolar 1 disorder, depressed, moderate F31.32 [facility] [id number] [place] [address] 48463- 4078 May, Bipolar 1 disorder, depressed, moderate F31.32 [facility] [id number] [place] [address] 91870- 3431 May, [place] [address] 50751- 5182 15 May, 2017 [place] [id number] [place] [address] 49489- 3179 13 May, 2017 Bipolar 1 disorder, depressed, moderate F31.32 [place] [address] 31984- 3211 13 May, 2017 Bipolar 1 disorder, depressed, moderate F31.32 [place] [address] 94456- 5104 May, Other specified abnormal findings of blood chemistry R79.89 [place] [address] 71964- 1720 08 May, 2017 Essential hypertension I10 ; Acquired hypothyroidism E03.9 ; Gastroesophageal reflux disease with esophagitis K21.0 ; Hair loss L65.9 ; Hypokalemia, gastrointestinal losses E87.6 ; Pre-diabetes R73.03 ; Candidal dermatitis B37.2 and Pure hypercholesterolemia E78.00 [place] [address] 60513- 5210 Apr, Bipolar 1 disorder, depressed, moderate F31.32 [place] [address] 72729- 1135 Apr, Bipolar 1 disorder, depressed, moderate F31.32 [place] [address] 71652- 6539 Apr, Bipolar 1 disorder, depressed, moderate F31.32 and Anxiety F41.9 [facility] [address] 15047 -1448 Mar, Encounter for immunization Z23 ; Fall, initial encounter W19.XXXA ; Rib pain on left side R07.81 and Left hip pain M25.552 [place] [address] 84346- 4786 Mar, Bipolar 1 disorder, depressed, moderate F31.32 and Anxiety F41.9 [place] [address] 26019- 9636 Mar, Bipolar 1 disorder, depressed, moderate F31.32 ; Anxiety F41.9 ; Borderline personality disorder F60.3 and Polysubstance (including opioids) dependence with physiol dependence F19.20 [facility] [id number] [place] [address] 33723- 9529 Mar, Bipolar 1 disorder, depressed, moderate F31.32 and Anxiety F41.9 [facility] [id number] [place] [address] 66779 -5145 Feb, Irritant contact dermatitis, unspecified trigger L24.9 [facility] [address] 24172- 8926 Feb, [facility] [address] 34305- 5844 Feb, [place] [address] 48487- 8158 Feb, Bipolar 1 disorder, depressed, moderate F31.32 and Anxiety F41.9 [place] [address] 45843- 3401 Feb, Acute non-recurrent maxillary sinusitis J01.00 [facility] [address] 73181- 1416 Feb, [place] [address] 11561- 0005 Feb, Bipolar 1 disorder, depressed, moderate F31.32 [facility] [id number] [place] [address] 49215- 2160 Jan, [facility] [id number] [place] [address] 25737- 3005 Jan, Bipolar 1 disorder, depressed, moderate F31.32 ; Anxiety F41.9 ; Borderline personality disorder F60.3 and Polysubstance (including opioids) dependence with physiol dependence F19.20 [facility] [id number] [place] [address] 37996- 0692 Jan, Bipolar 1 disorder, depressed, moderate F31.32 and Anxiety F41.9 [facility] [address] 17174760- 9345 Jan, Bipolar 1 disorder, depressed, moderate F31.32 ; Anxiety F41.9 ; Borderline personality disorder F60.3 and Polysubstance (including opioids) dependence with physiol dependence F19.20 [place] [address] [place] [address] 53240- 0584 Jan, Bipolar 1 disorder, depressed, moderate F31.32 and Anxiety F41.9 [place] [id number] [place] [address] Dec, Hypokalemia, gastrointestinal losses E87.6 ; GERD ( gastroesophageal reflux disease) K21.9 and Bipolar 1 disorder, depressed, moderate F31.32 [place] [id number] [place] [address] 619 Dec, Bipolar 1 disorder, depressed, moderate F31.32 and Anxiety F41.9 [facility] [address] [address] -[address]157 Dec, [address] 343026- 1612 Dec, [facility] [address] 88246 -3521 Dec, Fall (on) (from) other stairs and steps, initial encounter W10.8XXA ; Laceration of left lower extremity, initial encounter S81.812A ; Contusion of right knee, initial encounter S80.01XA and Contusion of right shoulder, initial encounter S40.011A [place] [address] [place] [address] 41886- 5127 Dec, Bipolar 1 disorder, depressed, moderate F31.32 ; Anxiety F41.9 ; Borderline personality disorder F60.3 and Polysubstance (including opioids) dependence with physiol dependence F19.20 [address] [place] [address] 25695- 7702 Dec, Bipolar 1 disorder, depressed, moderate F31.32 and Anxiety F41.9 [place] [address] 06700- 5984 Dec, [place] [address] [place] 433152 663 Dec, Hospital discharge follow-up Z09 ; Nephrolithiasis N20.0 ; Essential hypertension I10 ; Gastroesophageal reflux disease with esophagitis K21.0 and Anxiety F41.9 [place] [address] [place] [id number]- 3460 28 Nov, 2016 [facility] [place] [address] 24 Nov, 2016 Dysuria R30.0 and Acute cystitis with hematuria N30.01 [facility] [place] [address] 10178 -6902 Nov, [place] [address] 30262- 7463 Nov, [place] [address] 20905- 6525 Nov, Gastroesophageal reflux disease with esophagitis K21.0 ; Hypercholesteremia E78.00 and Acquired hypothyroidism E03.9 [facility] [address] 4[address] -5057 18 Nov, 2016 Left wrist pain M25.532 and Contusion of left wrist, initial encounter S60.212A [place] [address] 58502- 4451 18 Nov, 2016 Bipolar 1 disorder, depressed, moderate F31.32 ; Anxiety F41.9 ; Borderline personality disorder F60.3 and Polysubstance (including opioids) dependence with physiol dependence F19.20 [facility] [place] [address] 05033 -7479 15 Nov, 2016 Abdominal pain R10.9 and GERD (gastroesophageal reflux disease) K21.9 [place] [address] [address]- 6044 12 Nov, 2016 Hypokalemia, gastrointestinal losses E87.6 [place] [address] 28001- 1911 11 Nov, 2016 Dehydration E86.0 ; Hypokalemia, gastrointestinal losses E87.6 and Vaginal candidiasis B37.3 [place] [address] 71765- 0364 08 Nov, 2016 Abnormal weight loss R63.4 ; Diarrhea, unspecified R19.7 ; Vomiting, unspecified R11.10 ; Generalized abdominal pain R10.84 and Decreased breath sounds R06.89 [place] [address] 80122- 9644 Oct, Bipolar 1 disorder, depressed, moderate F31.32 and Anxiety F41.9 [place] [address] 16703- 2937 Sep, Bipolar 1 disorder, depressed, moderate F31.32 ; Anxiety F41.9 ; Borderline personality disorder F60.3 and Polysubstance (including opioids) dependence with physiol dependence F19.20 [place] [address] 79800- 6063 Sep, Bipolar 1 disorder, depressed, moderate F31.32 and Anxiety F41.9 [place] [address] 91354- 0222 Sep, Bipolar 1 disorder, depressed, moderate F31.32 [place] [address] 98356- 8099 Sep, Bipolar 1 disorder, depressed, moderate F31.32 and Anxiety F41.9 [facility] [address] 20261 -4973 Sep, Pain of toe of right foot M79.674 [place] [address] 34860- 1340 Sep, [facility] [address] [place] [address] 47450 -8191 Sep, Cellulitis of right ankle L03.115 [facility] [id number] [place] [address] 66279- 4632 Sep, Bipolar 1 disorder, depressed, moderate F31.32 and Anxiety F41.9 [facility] [address] 26360- 3533 Sep, [place] [id number] [place] [address] 54433- 3917 Sep, [facility] [address] 17210- 2020 Sep, Bipolar 1 disorder, depressed, moderate F31.32 and Anxiety F41.9 [place] [address] 83148- 9327 Sep, Accidental spider bite T63.301A [place] [address] 68081- 1048 Aug, Bipolar 1 disorder, depressed, moderate F31.32 ; Anxiety F41.9 ; Borderline personality disorder F60.3 and Polysubstance (including opioids) dependence with physiol dependence F19.20 [place] [id number] [place] [address] 34951- 8080 Aug, [place] [id number] [place] [address] 10427- 3958 Aug, Bipolar 1 disorder, depressed, moderate F31.32 and Anxiety F41.9 [place] [address] 35940- 7865 Aug, Pre-diabetes R73.03 ; Acute seasonal allergic rhinitis due to pollen J30.1 ; Hypercholesteremia E78.00 and Nausea R11.0 [place] [id number] [place] [address] 11296- 0848 Aug, [place] [id number] [place] [address] 37271- 5006 13 Aug, 2016 Bipolar 1 disorder, depressed, moderate F31.32 and Anxiety F41.9 [place] [id number] [place] [address] 84082- 1862 Aug, [place] [id number] [place] [address] 10413- 2734 Aug, [place] [address] 64793- 4565 Aug, [place] [address] 34049- 9692 Aug, Bipolar 1 disorder, depressed, moderate F31.32 and Anxiety F41.9 [place] [address] 50354- 4984 Aug, [facility] [id number] [place] [address] 95774 -7355 Aug, Insect bite, initial encounter W57.XXXA and Cellulitis of left lower leg L03.[address] 51207- 8956 Aug, Bipolar 1 disorder, depressed, moderate F31.32 and Borderline personality disorder F60.3 [place] [id number] [place] [address] 35600- 7284 July, [place] [id number] [place] [address] 98832- 2268 July, [place] [id number] [place] [address] 22884- 8614 July, Encounter for routine adult health examination with abnormal findings Z00.01 ; History of esophageal cancer Z85.01 ; Bipolar 1 disorder, depressed, moderate F31.32 ; Anxiety F41.9 ; Acquired hypothyroidism E03.9 ; Essential hypertension I10 ; Gastroesophageal reflux disease with esophagitis K21.0 and Encounter for immunization Z23 [address] [id number] [address]561 July, Bipolar 1 disorder, depressed, moderate F31.32 and Anxiety F41.9 [place] [id number] [place] [address] 313354- 7279 July, [place] [id number] [place] [address] 82704- 8655 July, Bipolar 1 disorder, depressed, moderate F31.32 and Anxiety F41.9 [place] [id number] [place] [address] 01004- 9839 July, Bipolar 1 disorder, depressed, moderate F31.32 [place] [id number] [place] [address] 56960- 2236 July, Bipolar 1 disorder, depressed, moderate F31.32 and Anxiety F41.9 [place] [address] [place] [address] 18543- 2551 Jun, Bipolar 1 disorder, depressed, moderate F31.32 [place] [id number] [place] [address] 93213- 8346 Jun, Bipolar 1 disorder, depressed, moderate F31.32 and Borderline personality disorder F60.3 [place] [address] [place] [address] 92260- 4944 Jun, Bipolar 1 disorder, depressed, moderate F31.32 [place] [address] [place] [address] 01871- 3353 Jun, Bipolar 1 disorder, depressed, moderate F31.32 [place] [address] [place] [address] 59438- 8613 May, Bipolar 1 disorder, depressed, moderate F31.32 and Anxiety F41.9 [place] [address] [place] [address] 85478- 0145 May, Bipolar 1 disorder, depressed, moderate F31.32 and Anxiety F41.9 [place] [id number] [place] [address] 02757- 0312 May, Bipolar 1 disorder, depressed, moderate F31.32 and Anxiety F41.9 [place] [id number] [place] [address] 93866- 5610 May, Bipolar 1 disorder, depressed, moderate F31.32 and Borderline personality disorder F60.3 [place] [id number] [place] [address] 05770- 1049 May, [place] [id number] [place] [address] 58802- 9459 May, Bipolar 1 disorder, depressed, moderate F31.32 and Anxiety F41.9 [place] [address] [place] [address] 31816- 6189 May, Bipolar 1 disorder, depressed, moderate F31.32 and Anxiety F41.9 [place] [id number] [place] [address] 40174- 5653 May, [place] [address] [place] [address] 24096- 3730 May, Bipolar 1 disorder, depressed, moderate F31.32 [place] [address] [place] [address] 16222- 5335 May, Bipolar 1 disorder, depressed, moderate F31.32 and Generalized anxiety disorder F41.1 [place] [address] [place] [address] 90791- 5100 Apr, Bipolar 1 disorder, depressed, moderate F31.32 and Anxiety F41.9 [place] [id number] [place] [address] 00595- 1003 Apr, [place] [address] [place] [address] 38282- 8502 Apr, Bipolar 1 disorder, depressed, moderate F31.32 and Anxiety F41.9 [place] [address] [place] [address] 89712- 4223 09 Apr, 2016 Bipolar 1 disorder, depressed, moderate F31.32 and Anxiety F41.9 [place] [address] [place] [address] 87868- 0231 07 Apr, 2016 Bipolar affective disorder, depressed, severe F31.4 and Generalized anxiety disorder F41.1 [place] [address] [place] [address] 88977- 2998 Mar, Bipolar 1 disorder, depressed, moderate F31.32 and Anxiety F41.9 [place] [address] [place] [address] 15611- 0255 Mar, Bipolar 1 disorder, depressed, moderate F31.32 and Anxiety F41.9 [place] [address] [place] [address] 23668- 7409 Mar, Bipolar 1 disorder, mixed, moderate F31.62 [place] [id number] [place] [address] 05848- 0447 Mar, [place] [address] [place] [address] 61088- 4007 Mar, Bipolar 1 disorder, mixed, moderate F31.62 ; Generalized anxiety disorder F41.1 and Other custodial (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 Z79.899 [place] [address] [address]- 4041 Feb, Bipolar 1 disorder, depressed, moderate F31.32 and Anxiety F41.9 [place] [address] [place] [address] 56587- 0496 Feb, Bipolar 1 disorder, depressed, moderate F31.32 and Other custodial (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 Z79.899 [place] [address] [place] [address] 50925- 7389 Feb, [facility] [address] [place] [address] 15186- 1297 Feb, Bipolar 1 disorder, depressed, moderate F31.32 and Anxiety F41.9 [facility] [address] [place] [address] 28201- 5367 Feb, Bipolar 1 disorder, depressed, moderate F31.32 and 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 [facility] [address] [place] [address]- 9983 Feb, Bipolar 1 disorder, depressed, moderate F31.32 and Anxiety F41.9 [place] [id number] [place] [address]- 7779 Dec, Bipolar 1 disorder, depressed, moderate F31.32 and Anxiety F41.9 [place] [address] [address] [id number] [place] 7559 Oct, [place] [address] [place] [address] [id number] [place] 4854 Oct, [place] [address] [address] [id number] [place] [address] 56212- 0897 May, [place] [address] [place] [address] [id number] [place] [address] 0182 May, [place] [address] [place] [id number] [place] [address]- 0896 Mar, [place] [address] [place] [address] 0055 Mar, IMMUNIZATIONS No Known Immunizations SOCIAL HISTORY Never Assessed REASON FOR VISIT Suture removal JStrasserRN PLAN OF CARE VITAL SIGNS MEDICATIONS Unknown [...] Cancer Head and Neck 2004 Hospitalization History [facility] Psychiatric Admission 2016
--- OUTSIDE RECORDS SUMMARY | 2017-09-29 18:45 | XMS REPORT ---
Author Author MICHELLE DARCI [facility] Address [address] [place] [address] Care Team Providers Care Government Relations Director Name Role Phone MICHELLE, DARCI Unavailable PROBLEMS Type Condition ICD9-CM Code ELJ93-LI Code Onset Dates Condition Status SNOMED Code Problem Gastroesophageal reflux disease with esophagitis K21.0 Active 570879635 Problem Polysubstance (including opioids) dependence with physiol dependence F19.20 Active 97074731 Problem History of esophageal cancer Z85.01 Active 056957849 Problem Seasonal allergies J30.2 Active 506955223 Problem Pre-diabetes R73.03 Active 744326132 Problem GERD (gastroesophageal reflux disease) K21.9 Active 253133573 Problem Borderline personality disorder F60.3 Active 97399875 Problem Pure hypercholesterolemia E78.00 Active 966918629 Problem Nephrolithiasis N20.0 Active 28486661 Problem STATE HEP A (ADULT) DX V05.3 Active 480384393 Problem Bipolar 1 disorder, depressed, moderate F31.32 Active 40333165 Problem Anxiety F41.9 Active 04102653 Problem Vitamin D insufficiency E55.9 Active 701888278 Problem Essential hypertension I10 Active 63465836 Problem Elevated serum creatinine R79.89 Active 999329342 Problem Acquired hypothyroidism E03.9 Active 966259073 ALLERGIES No Information ENCOUNTERS Encounter Location Date Diagnosis [facility] [id number] [address] Sep, [facility] [id number] [place] [address] 53040- 0236 Aug, [facility] [address], [place] [address] Aug, [facility] [id number], [place] [address] July, Acquired hypothyroidism E03.9 [facility] [id number] [place] [address] 01573- 5838 July, Bipolar 1 disorder, depressed, moderate F31.32 [facility] [id number] [place] [address] 42562 -8037 July, Seasonal allergies J30.2 [facility] [address] [address]- 7104 July, Bipolar 1 disorder, depressed, moderate F31.32 [facility] [address] 9[address]88- 6904 Jun, Pre-diabetes R73.03 [place] [address] 10875- 4179 Jun, Bipolar 1 disorder, depressed, moderate F31.32 ; Anxiety F41.9 ; Borderline personality disorder F60.3 ; Polysubstance (including opioids ) dependence with physiol dependence F19.20 and Other specified abnormal findings of blood chemistry R79.89 [facility] [id number] [place] [address] 63804- 1680 Jun, Bipolar 1 disorder, depressed, moderate F31.32 [place] [id number] [place] [address] 65573- 3088 May, Bipolar 1 disorder, depressed, moderate F31.32 [facility] [id number] [place] [address] 97221- 2387 May, Bipolar 1 disorder, depressed, moderate F31.32 [facility] [id number] [place] [address] 12906- 7742 May, [place] [address] 30607- 7396 May, [place] [id number] [place] [address] 37913- 7440 May, Bipolar 1 disorder, depressed, moderate F31.32 [place] [id number] [place] [address] 90789- 5529 13 May, 2017 Bipolar 1 disorder, depressed, moderate F31.32 [place] [address] 61055- 0058 May, Other specified abnormal findings of blood chemistry R79.[address] 44883- 3416 May, Essential hypertension I10 ; Acquired hypothyroidism E03.9 ; Gastroesophageal reflux disease with esophagitis K21.0 ; Hair loss L65.9 ; Hypokalemia, gastrointestinal losses E87.6 ; Pre-diabetes R73.03 ; Candidal dermatitis B37.2 and Pure hypercholesterolemia E78.00 [place] [address] 73863- 7607 Apr, Bipolar 1 disorder, depressed, moderate F31.32 [place] [address] 36987- 4920 Apr, Bipolar 1 disorder, depressed, moderate F31.32 [place] [address] 89346- 2901 Apr, Bipolar 1 disorder, depressed, moderate F31.32 and Anxiety F41.9 [facility] [id number] [place] [address] 79052 -3430 Mar, Encounter for immunization Z23 ; Fall, initial encounter W19.XXXA ; Rib pain on left side R07.81 and Left hip pain M25.552 [place] [id number] [place] [address] 94355- 8032 Mar, Bipolar 1 disorder, depressed, moderate F31.32 and Anxiety F41.9 [place] [address] 85362- 1338 Mar, Bipolar 1 disorder, depressed, moderate F31.32 ; Anxiety F41.9 ; Borderline personality disorder F60.3 and Polysubstance (including opioids) dependence with physiol dependence F19.20 [facility] [id number] [place] [address] 75825- 5663 Mar, Bipolar 1 disorder, depressed, moderate F31.[address] [facility] [id number] [place] [address] 93760 -5901 Feb, Irritant contact dermatitis, unspecified trigger L24.9 [facility] [id number] [place] [address] 49353- 8288 Feb, [facility] [id number] [place] [address] 37796- 5647 Feb, [facility] [id number] [place] [address] 55942- 8875 Feb, Bipolar 1 disorder, depressed, moderate F31.32 and Anxiety F41.9 [facility] [address] 47510- 4316 Feb, Acute non-recurrent maxillary sinusitis J01.00 [facility] [id number] [place] [address] 50033- 7403 Feb, [facility] [id number] [place] [address] 99819- 5875 Feb, Bipolar 1 disorder, depressed, moderate F31.32 [facility] [id number] [place] [address] 08056- 3016 Jan, [facility] [id number] [place] [address] 73049- 5330 Jan, Bipolar 1 disorder, depressed, moderate F31.32 ; Anxiety F41.9 ; Borderline personality disorder F60.3 and Polysubstance (including opioids) dependence with physiol dependence F19.20 [facility] [id number] [place] [address] 43339- 6710 Jan, Bipolar 1 disorder, depressed, moderate F31.32 and Anxiety F41.9 [facility] [address] [place] [address]- 7163 Jan, Bipolar 1 disorder, depressed, moderate F31.32 ; Anxiety F41.9 ; Borderline personality disorder F60.3 and Polysubstance (including opioids) dependence with physiol dependence F19.20 [place] [address] 40173- 1318 Jan, Bipolar 1 disorder, depressed, moderate F31.32 and Anxiety F41.[address] 47714- 2156 Dec, Hypokalemia, gastrointestinal losses E87.6 ; GERD ( gastroesophageal reflux disease) K21.9 and Bipolar 1 disorder, depressed, moderate F31.[address] 07686- 2576 Dec, Bipolar 1 disorder, depressed, moderate F31.32 and Anxiety F41.9 [facility] [address] [address] Dec, [address] 46320- 4003 Dec, [facility] [address] [address] -[address] Dec, Fall (on) (from) other stairs and steps, initial encounter W10.8XXA ; Laceration of left lower extremity, initial encounter S81.812A ; Contusion of right knee, initial encounter S80.01XA and Contusion of right shoulder, initial encounter S40.011[id number] [place] [address] 01580- 3095 Dec, Bipolar 1 disorder, depressed, moderate F31.32 ; Anxiety F41.9 ; Borderline personality disorder F60.3 and Polysubstance (including opioids) dependence with physiol dependence F19.20 [address] [id number] [place] [address] 57560- 0003 Dec, Bipolar 1 disorder, depressed, moderate F31.32 and Anxiety F41.9 [place] [id number] [place] [address] 43638- 8217 Dec, [place] [address] [place] [address] 515 Dec, Hospital discharge follow-up Z09 ; Nephrolithiasis N20.0 ; Essential hypertension I10 ; Gastroesophageal reflux disease with esophagitis K21.0 and Anxiety F41.9 [place] [address] 52516- 8573 28 Nov, 2016 [facility] [place] [address] [address] 0428 24 Nov, 2016 Dysuria R30.0 and Acute cystitis with hematuria N30.01 [facility] [place] [address] 24197 -8347 Nov, [place] [address] 86656- 4703 Nov, [place] [address] 41521- 5284 Nov, Gastroesophageal reflux disease with esophagitis K21.0 ; Hypercholesteremia E78.00 and Acquired hypothyroidism E03.9 [facility] [place] [address] 64608 -6274 18 Nov, 2016 Left wrist pain M25.532 and Contusion of left wrist, initial encounter S60.212A [place] [id number] [place] [address] 87307- 1711 18 Nov, 2016 Bipolar 1 disorder, depressed, moderate F31.32 ; Anxiety F41.9 ; Borderline personality disorder F60.3 and Polysubstance (including opioids) dependence with physiol dependence F19.20 [facility] [place] [id number] [place] [address] 69254 -8310 15 Nov, 2016 Abdominal pain R10.9 and GERD (gastroesophageal reflux disease) K21.9 [place] [address] 38662- 1702 12 Nov, 2016 Hypokalemia, gastrointestinal losses E87.6 [place] [address] 28605- 2622 11 Nov, 2016 Dehydration E86.0 ; Hypokalemia, gastrointestinal losses E87.6 and Vaginal candidiasis B37.[address] 70834- 0165 08 Nov, 2016 Abnormal weight loss R63.4 ; Diarrhea, unspecified R19.7 ; Vomiting, unspecified R11.10 ; Generalized abdominal pain R10.84 and Decreased breath sounds R06.89 [place]907- 368 Oct, Bipolar 1 disorder, depressed, moderate F31.32 and Anxiety F41.[address] 07948- 4373 Sep, Bipolar 1 disorder, depressed, moderate F31.32 ; Anxiety F41.9 ; Borderline personality disorder F60.3 and Polysubstance (including opioids) dependence with physiol dependence F19.[address] 51702- 6231 Sep, Bipolar 1 disorder, depressed, moderate F31.32 and Anxiety F41.[address] 47675- 3373 Sep, Bipolar 1 disorder, depressed, moderate F31.[address] 37658- 1261 Sep, Bipolar 1 disorder, depressed, moderate F31.32 and Anxiety F41.9 [facility] [address] [address]111 -3976 Sep, Pain of toe of right foot M79.[address] 51619- 0846 Sep, [facility] [id number] [place] [address] 97038 -7960 Sep, Cellulitis of right ankle L03.115 [facility] [id number] [place] [address] 74944- 4221 Sep, Bipolar 1 disorder, depressed, moderate F31.32 and Anxiety F41.9 [facility] [address] 13545- 7953 Sep, [place] [address] 72013- 8304 Sep, [facility] [address] 53363- 6336 Sep, Bipolar 1 disorder, depressed, moderate F31.32 and Anxiety F41.9 [place] [address] 90206- 5324 Sep, Accidental spider bite T63.301A [place] [address] 50008- 1143 Aug, Bipolar 1 disorder, depressed, moderate F31.32 ; Anxiety F41.9 ; Borderline personality disorder F60.3 and Polysubstance (including opioids) dependence with physiol dependence F19.20 [place] [id number] [place] [address] 71073- 7292 Aug, [place] [address] 92286- 7327 Aug, Bipolar 1 disorder, depressed, moderate F31.32 and Anxiety F41.9 [place] [address] 02342- 4990 Aug, Pre-diabetes R73.03 ; Acute seasonal allergic rhinitis due to pollen J30.1 ; Hypercholesteremia E78.00 and Nausea R11.0 [place] [address] 75331- 3300 Aug, [place] [address] [place] [address] 44262- 6327 13 Aug, 2016 Bipolar 1 disorder, depressed, moderate F31.32 and Anxiety F41.9 [place] [id number] [place] [address] 85344- 6168 Aug, [place] [id number] [place] [address] 79049- 9948 Aug, [place] [id number] [place] [address] 64953- 5125 Aug, [place] [id number] [place] [address] 93739- 9091 Aug, Bipolar 1 disorder, depressed, moderate F31.32 and Anxiety F41.9 [place] [id number] [place] [address] 31569- 0590 Aug, [facility] [address] 13861 -3161 Aug, Insect bite, initial encounter W57.XXXA and Cellulitis of left lower leg L03.116 [place] [id number] [place] [address] 51380- 9835 Aug, Bipolar 1 disorder, depressed, moderate F31.32 and Borderline personality disorder F60.3 [place] [id number] [place] [address] 50430- 5810 July, [place] [address] 07437- 5084 July, [place] [id number] [place] [address] 41214- 7776 July, Encounter for routine adult health examination with abnormal findings Z00.01 ; History of esophageal cancer Z85.01 ; Bipolar 1 disorder, depressed, moderate F31.32 ; Anxiety F41.9 ; Acquired hypothyroidism E03.9 ; Essential hypertension I10 ; Gastroesophageal reflux disease with esophagitis K21.0 and Encounter for immunization Z23 [place] [id number] [place] [address] 43148- 4024 July, Bipolar 1 disorder, depressed, moderate F31.32 and Anxiety F41.9 [facility] [id number] [place] [address] 58408- 7000 July, [facility] [id number] [place] [address] 26863- 2724 July, Bipolar 1 disorder, depressed, moderate F31.32 and Anxiety F41.9 [place] [id number] [place] [address] 79295- 0681 July, Bipolar 1 disorder, depressed, moderate F31.32 [place] [id number] [place] [address] 80886- 0503 July, Bipolar 1 disorder, depressed, moderate F31.32 and Anxiety F41.9 [place] [id number] [place] [address] 72595- 0926 Jun, Bipolar 1 disorder, depressed, moderate F31.32 [place] [id number] [place] [address] 49512- 3104 Jun, Bipolar 1 disorder, depressed, moderate F31.32 and Borderline personality disorder F60.3 [place] [id number] [place] [address] 13548- 5559 Jun, Bipolar 1 disorder, depressed, moderate F31.32 [place] [id number] [place] [address] 83933- 4845 Jun, Bipolar 1 disorder, depressed, moderate F31.32 [place] [id number] [place] [address] 41308- 0869 May, Bipolar 1 disorder, depressed, moderate F31.32 and Anxiety F41.9 [facility] [id number] [place] [address] 02026- 3546 May, Bipolar 1 disorder, depressed, moderate F31.32 and Anxiety F41.9 [place] [address] [place] [address] 15795- 8122 May, Bipolar 1 disorder, depressed, moderate F31.32 and Anxiety F41.9 [place] [id number] [place] [address]951 May, Bipolar 1 disorder, depressed, moderate F31.32 and Borderline personality disorder F60.3 [place] [id number] [place] [address] 20363- 8698 May, [place] [id number] [place] [address] 26097- 0944 May, Bipolar 1 disorder, depressed, moderate F31.32 and Anxiety F41.9 [place] [id number] [place] [address] 62104- 8497 May, Bipolar 1 disorder, depressed, moderate F31.32 and Anxiety F41.9 [place] [id number] [place] [address] 89380- 6896 May, [place] [id number] [place] [address] 73087- 4478 May, Bipolar 1 disorder, depressed, moderate F31.32 [place] [id number] [place] [address] 46125- 3408 May, Bipolar 1 disorder, depressed, moderate F31.32 and Generalized anxiety disorder F41.1 [place] [address] [place] [address] 63825- 1134 Apr, Bipolar 1 disorder, depressed, moderate F31.32 and Anxiety F41.9 [place] [id number] [place] [address] 56022- 2275 Apr, [place] [id number] [place] [address] 08469- 2693 Apr, Bipolar 1 disorder, depressed, moderate F31.32 and Anxiety F41.9 [place] [id number] [place] [address] 25529- 8264 09 Apr, 2016 Bipolar 1 disorder, depressed, moderate F31.32 and Anxiety F41.9 [place] [id number] [place] [address] 45549- 3819 Apr, Bipolar affective disorder, depressed, severe F31.4 and Generalized anxiety disorder F41.1 [place] [id number] [place] [address] 40815- 5662 Mar, Bipolar 1 disorder, depressed, moderate F31.32 and Anxiety F41.9 [place] [id number] [place] [address] 72808- 6887 Mar, Bipolar 1 disorder, depressed, moderate F31.32 and Anxiety F41.9 [place] [id number] [place] [address] 07900- 8616 Mar, Bipolar 1 disorder, mixed, moderate F31.62 [place] [id number] [place] [address] 78783- 2283 Mar, [place] [id number] [place] [address] 48755- 8589 Mar, Bipolar 1 disorder, mixed, moderate F31.62 ; Generalized anxiety disorder F41.1 and 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 [place] [address] [place] [address] 60426- 1595 Feb, Bipolar 1 disorder, depressed, moderate F31.32 and Anxiety F41.9 [facility] [id number] [place] [address] 96165- 5321 Feb, Bipolar 1 disorder, depressed, moderate F31.32 and 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 [facility] [address] [place] [address] 11986- 5464 Feb, [facility] [id number] [place] [address] 93484- 1674 Feb, Bipolar 1 disorder, depressed, moderate F31.32 and Anxiety F41.9 [facility] [address], [place] [address]- 3160 Feb, Bipolar 1 disorder, depressed, moderate F31.32 and 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 [facility] [address] [place] [address] 66362- 4725 Feb, Bipolar 1 disorder, depressed, moderate F31.32 and Anxiety F41.9 [facility] [id number] [place] [address] 78911- 7125 Dec, Bipolar 1 disorder, depressed, moderate F31.32 and Anxiety F41.9 [place] [id number] [place] [address] 42785- 6943 Oct, [facility] [id number] [place] [address] 48814- 2543 Oct, [facility] [id number] [place] [address] 44197- 1490 May, [facility] [id number] [place] [address] 66156- 5942 May, [place] [id number] [place] [address] 98637- 1085 Mar, [facility] [address] [place] [address] 91889- 8490 Mar, IMMUNIZATIONS No Known Immunizations SOCIAL HISTORY Never Assessed REASON FOR VISIT Refill request PLAN OF CARE VITAL SIGNS MEDICATIONS Medication Instructions Dosage Frequency Start Date End Date Duration Status Protonix 40 MG Orally Once a day 1 tablet 24h Nov, 30 day(s) Active Potassium Chloride ER 10 MEQ Orally Once a day 1 tablet with food 24h Nov, 90 days Active Metformin HCl 500 mg Orally Twice a day one tablet daily with evening meal x 1 week then one tablet bid with meals 12h 07 Aug, 2016 90 days Active Lamotrigine 200 mg Orally Once a day 1 tablet 24h 30 days Active RESULTS No Results PROCEDURES [...] Cancer Head and Neck 2004 Hospitalization History [facility] Admission 2015
--- OUTSIDE RECORDS SUMMARY | 2017-09-29 18:46 | XMS REPORT ---
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 Name Role Phone MICHELLEDARCI Unavailable PROBLEMS Type Condition ICD9-CM Code [id number] Code Onset Dates Condition Status SNOMED Code Problem Gastroesophageal reflux disease with esophagitis K21.0 Active 667149638 Problem Polysubstance (including opioids) dependence with physiol dependence F19.20 Active 93973029 Problem History of esophageal cancer Z85.01 Active 497989634 Problem Seasonal allergies J30.2 Active 012389759 Problem Pre-diabetes R73.03 Active 528525418 Problem GERD (gastroesophageal reflux disease) K21.9 Active 313494996 Problem Borderline personality disorder F60.3 Active 18205941 Problem Pure hypercholesterolemia E78.00 Active 920872153 Problem Nephrolithiasis N20.0 Active 76647649 Problem STATE HEP A (ADULT) DX V05.3 Active 579079111 Problem Bipolar 1 disorder, depressed, moderate F31.32 Active 58844251 Problem Anxiety F41.9 Active 08200618 Problem Vitamin D insufficiency E55.9 Active 266841096 Problem Essential hypertension I10 Active 18576148 Problem Elevated serum creatinine R79.89 Active 737323570 Problem Acquired hypothyroidism E03.9 Active 724586680 ALLERGIES Substance Reaction Event Type Date Status Adhesive Tape Rash Drug Allergy Mar, Active Zolpidem Tartrate Client OVERDOSE Drug Allergy Mar, Active Penicillamine Hives Drug Allergy Mar, Active Codeine Sulfate Nausea and Vomitting Drug Allergy Mar, Active ENCOUNTERS Encounter Location Date Diagnosis [facility] [address] [facility] [id number] [address] Sep, [facility] [address] [facility] [id number] [address] Sep, [facility] [address] [place] [id number] [place] [address] 09902- 1655 Sep, [facility] [address] 8[address]77- 3211 Aug, [facility] [address] [id number] [place] [address] 38608- 0432 Aug, Bipolar 1 disorder, depressed, moderate F31.32 [facility] [address] 71832- 1760 Aug, Bipolar 1 disorder, depressed, moderate F31.32 [place] [address] 83499- 9577 July, Candidal dermatitis B37.2 [place] [address] [place] [id number] [place] [address] 08989- 4813 July, Acquired hypothyroidism E03.9 [place] [address] 16515- 7864 July, Bipolar 1 disorder, depressed, moderate F31.32 [facility] [id number] [place] [address] 03892 -0457 July, Seasonal allergies J30.2 [place] [address] [place] [id number] [place] [address] 90217- 5809 July, Bipolar 1 disorder, depressed, moderate F31.32 [place] [address] [place] [id number] [place] [address] 81257- 2731 Jun, Pre-diabetes R73.03 [place] [address] [place] [id number] [place] [address] 29747- 5089 Jun, Bipolar 1 disorder, depressed, moderate F31.32 ; Anxiety F41.9 ; Borderline personality disorder F60.3 ; Polysubstance (including opioids ) dependence with physiol dependence F19.20 and Other specified abnormal findings of blood chemistry R79.89 [place] [address] 28705- 9347 Jun, Bipolar 1 disorder, depressed, moderate F31.32 [place] [address] [place] [id number] [place] [address] 34220- 0914 May, Bipolar 1 disorder, depressed, moderate F31.32 [place] [address] [place] [id number] [place] [address] May, Bipolar 1 disorder, depressed, moderate F31.32 [place] [address] 16405- 6978 May, [place] [address] [place] [id number] [place] [address] 41738- 6466 May, [place] [address] 420767- 8976 May, Bipolar 1 disorder, depressed, moderate F31.32 [place] [address] [place] [id number] [place] [address] 03593- 1920 May, Bipolar 1 disorder, depressed, moderate F31.32 [place] [address] [place] [id number] [place] [address] 01856- 6087 May, Other specified abnormal findings of blood chemistry R79.89 [place] [address] [place] [id number] [place] [address] May, Essential hypertension I10 ; Acquired hypothyroidism E03.9 ; Gastroesophageal reflux disease with esophagitis K21.0 ; Hair loss L65.9 ; Hypokalemia, gastrointestinal losses E87.6 ; Pre-diabetes R73.03 ; Candidal dermatitis B37.2 and Pure hypercholesterolemia E78.00 [place] [address] [place] [id number] [place] [address] 20784- 4637 Apr, Bipolar 1 disorder, depressed, moderate F31.32 [place] [address] [place] [id number] [place] [address]13 Apr, Bipolar 1 disorder, depressed, moderate F31.32 [place] [address] [place] [id number] [place] [address] Apr, Bipolar 1 disorder, depressed, moderate F31.32 and Anxiety F41.9 [facility] [address] 68[address] -0402 Mar, Encounter for immunization Z23 ; Fall, initial encounter W19.XXXA ; Rib pain on left side R07.81 and Left hip pain M25.552 [place] [address] 67033- 6938 Mar, Bipolar 1 disorder, depressed, moderate F31.32 and Anxiety F41.9 [place] [address] 37243- 7418 Mar, Bipolar 1 disorder, depressed, moderate F31.32 ; Anxiety F41.9 ; Borderline personality disorder F60.3 and Polysubstance (including opioids) dependence with physiol dependence F19.20 [place] [address] 06281- 5910 Mar, Bipolar 1 disorder, depressed, moderate F31.32 and Anxiety F41.9 [facility] [address] 11184 -1619 Feb, Irritant contact dermatitis, unspecified trigger L24.9 [place] [address] 02812- 6326 Feb, [place] [address] 26017- 2456 Feb, [place] [address] 43117- 1111 Feb, Bipolar 1 disorder, depressed, moderate F31.32 and Anxiety F41.9 [place] [address] 32562- 9400 Feb, Acute non-recurrent maxillary sinusitis J01.00 [place] [address] 33369- 6324 Feb, [facility] [address] [place] [address] 94564- 1904 Feb, Bipolar 1 disorder, depressed, moderate F31.32 [facility] [id number] [place] [address] 39055- 5330 Jan, [facility] [address] [id number] [place] [address] 96817- 3906 Jan, Bipolar 1 disorder, depressed, moderate F31.32 ; Anxiety F41.9 ; Borderline personality disorder F60.3 and Polysubstance (including opioids) dependence with physiol dependence F19.20 [facility] [address] 34178- 2395 Jan, Bipolar 1 disorder, depressed, moderate F31.32 and Anxiety F41.9 [place] [address] 68396- 3542 Jan, Bipolar 1 disorder, depressed, moderate F31.32 ; Anxiety F41.9 ; Borderline personality disorder F60.3 and Polysubstance (including opioids) dependence with physiol dependence F19.20 [facility] [address] 11860- 9176 Jan, Bipolar 1 disorder, depressed, moderate F31.32 and Anxiety F41.9 [facility] [address] [id number] [place] [address] 74989- 8506 Dec, Hypokalemia, gastrointestinal losses E87.6 ; GERD ( gastroesophageal reflux disease) K21.9 and Bipolar 1 disorder, depressed, moderate F31.32 [facility] [id number] [place] [address] 16495- 2356 Dec, Bipolar 1 disorder, depressed, moderate F31.32 and Anxiety F41.9 [facility] [id number] [place] [address] 13023 -5054 Dec, [facility] [address] 73585- 5228 Dec, [facility] [address] [address] [id number] [place] [address] 89968 -9161 Dec, Fall (on) (from) other stairs and steps, initial encounter W10.8XXA ; Laceration of left lower extremity, initial encounter S81.812A ; Contusion of right knee, initial encounter S80.01XA and Contusion of right shoulder, initial encounter S40.011A [address] 88313- 2655 Dec, Bipolar 1 disorder, depressed, moderate F31.32 ; Anxiety F41.9 ; Borderline personality disorder F60.3 and Polysubstance (including opioids) dependence with physiol dependence F19.[address] 22813- 8505 Dec, Bipolar 1 disorder, depressed, moderate F31.32 and Anxiety F41.[address] 91187- 0098 Dec, [address] 98259- 2238 Dec, Hospital discharge follow-up Z09 ; Nephrolithiasis N20.0 ; Essential hypertension I10 ; Gastroesophageal reflux disease with esophagitis K21.0 and Anxiety F41.9 [place] [address] 36306- 2897 Nov, [facility] [place] [address] 88745 -7833 Nov, Dysuria R30.0 and Acute cystitis with hematuria N30.01 [facility] [address] [address] -[address]2 Nov, [place] [address] 27420- 0503 Nov, [place] [address] 54531- 3922 Nov, Gastroesophageal reflux disease with esophagitis K21.0 ; Hypercholesteremia E78.00 and Acquired hypothyroidism E03.9 [facility] [address] [place] [address]48612 737 18 Nov, 2016 Left wrist pain M25.532 and Contusion of left wrist, initial encounter S60.212A [place] [address] 247 18 Nov, 2016 Bipolar 1 disorder, depressed, moderate F31.32 ; Anxiety F41.9 ; Borderline personality disorder F60.3 and Polysubstance (including opioids) dependence with physiol dependence F19.20 [facility] [address] [place] 648611 -1822 15 Nov, 2016 Abdominal pain R10.9 and GERD (gastroesophageal reflux disease) K21.9 [place] [address] 47806- 202 12 Nov, 2016 Hypokalemia, gastrointestinal losses E87.6 [place] [address] 89940- 8746 11 Nov, 2016 Dehydration E86.0 ; Hypokalemia, gastrointestinal losses E87.6 and Vaginal candidiasis B37.3 [place] [address] 50160- 5789 08 Nov, 2016 Abnormal weight loss R63.4 ; Diarrhea, unspecified R19.7 ; Vomiting, unspecified R11.10 ; Generalized abdominal pain R10.84 and Decreased breath sounds R06.89 [place] [address] 59979- 9844 Oct, Bipolar 1 disorder, depressed, moderate F31.32 and Anxiety F41.9 [place] [address] [place] 648610- 8697 Sep, Bipolar 1 disorder, depressed, moderate F31.32 ; Anxiety F41.9 ; Borderline personality disorder F60.3 and Polysubstance (including opioids) dependence with physiol dependence F19.20 [place] [address] [id number] [place] [address] 16753- 8499 Sep, Bipolar 1 disorder, depressed, moderate F31.32 and Anxiety F41.9 [place] [address] [place] [id number] [place] [address] 31333- 6296 Sep, Bipolar 1 disorder, depressed, moderate F31.32 [place] [address] [place] [id number] [place] [address] 71900- 0153 Sep, Bipolar 1 disorder, depressed, moderate F31.32 and Anxiety F41.9 [facility] [id number] [place] [address] 24854 -4721 Sep, Pain of toe of right foot M79.674 [place] [address] [place] [id number] [place] [address] 46663- 3042 Sep, [facility] [address] [place] [id number] [place] [address] 06746 -1345 Sep, Cellulitis of right ankle L03.115 [place] [address] [place] [id number] [place] [address] 00250- 2021 Sep, Bipolar 1 disorder, depressed, moderate F31.32 and Anxiety F41.9 [place] [address] [place] [id number] [place] [address] 20068- 8410 Sep, [place] [address] [place] [id number] [place] [address] 20968- 4391 Sep, [place] [address] [place] [id number] [place] [address] 56706- 4230 Sep, Bipolar 1 disorder, depressed, moderate F31.32 and Anxiety F41.9 [place] [address] [place] [id number] [place] [address] 66090- 5096 Sep, Accidental spider bite T63.301A [place] [address] [place] [id number] [place] [address] 31055- 6528 Aug, Bipolar 1 disorder, depressed, moderate F31.32 ; Anxiety F41.9 ; Borderline personality disorder F60.3 and Polysubstance (including opioids) dependence with physiol dependence F19.20 [place] [address] 79775- 9913 Aug, [place] [address] 54265- 3943 Aug, Bipolar 1 disorder, depressed, moderate F31.32 and Anxiety F41.9 [place] [address] 56878- 4542 Aug, Pre-diabetes R73.03 ; Acute seasonal allergic rhinitis due to pollen J30.1 ; Hypercholesteremia E78.00 and Nausea R11.0 [place] [address] 44247- 6788 Aug, [place] [address] 15363- 9437 Aug, Bipolar 1 disorder, depressed, moderate F31.32 and Anxiety F41.9 [place] [address] 26722- 0843 Aug, [place] [address] 83077- 4507 Aug, [place] [address] 95430- 9564 Aug, [facility] [address] 75514- 1417 Aug, Bipolar 1 disorder, depressed, moderate F31.32 and Anxiety F41.9 [place] [address] 40131- 6371 Aug, [facility] [address] 75262 -5413 03 Aug, 2016 Insect bite, initial encounter W57.XXXA and Cellulitis of left lower leg L03.116 [place] [address] [place] [id number] [place] [address] 37216- 7156 Aug, Bipolar 1 disorder, depressed, moderate F31.32 and Borderline personality disorder F60.3 [place] [address] [place] [id number] [place] [address] 88247- 6052 July, [place] [address] [place] [id number] [place] [address] 09851- 0771 July, [place] [address] [place] [id number] [place] [address] 48237- 6916 July, Encounter for routine adult health examination with abnormal findings Z00.01 ; History of esophageal cancer Z85.01 ; Bipolar 1 disorder, depressed, moderate F31.32 ; Anxiety F41.9 ; Acquired hypothyroidism E03.9 ; Essential hypertension I10 ; Gastroesophageal reflux disease with esophagitis K21.0 and Encounter for immunization Z23 [place] [id number] [place] [address] 93108- 2048 July, Bipolar 1 disorder, depressed, moderate F31.32 and Anxiety F41.9 [place] [address] [place] [id number] [place] [address] 10911- 4899 July, [place] [id number] [place] [address] 99242- 1042 July, Bipolar 1 disorder, depressed, moderate F31.32 and Anxiety F41.9 [place] [id number] [place] [address] 98672- 4980 July, Bipolar 1 disorder, depressed, moderate F31.32 [place] [address] [place] [id number] [place] [address] 68768- 2349 July, Bipolar 1 disorder, depressed, moderate F31.32 and Anxiety F41.9 [place] [address] [place] [id number] [place] [address] 43497- 5094 Jun, Bipolar 1 disorder, depressed, moderate F31.32 [place] [address] [place] [id number] [place] [address] 29527- 4428 Jun, Bipolar 1 disorder, depressed, moderate F31.32 and Borderline personality disorder F60.3 [facility] [id number] [place] [address] 18324- 9792 Jun, Bipolar 1 disorder, depressed, moderate F31.32 [facility] [address] [address] [id number] [place] [address] 06952- 0007 Jun, Bipolar 1 disorder, depressed, moderate F31.32 [facility] [address] [id number] [place] [address]- 3839 May, Bipolar 1 disorder, depressed, moderate F31.32 and Anxiety F41.9 [place] [address] [place] [address] [place] [address]- 0086 May, Bipolar 1 disorder, depressed, moderate F31.32 and Anxiety F41.9 [place] [address] [place] [id number] [place] [address] 30508- 3972 May, Bipolar 1 disorder, depressed, moderate F31.32 and Anxiety F41.9 [place] [address] [place] [id number] [place] [address] 38133- 5317 May, Bipolar 1 disorder, depressed, moderate F31.32 and Borderline personality disorder F60.3 [place] [address] [place] [id number] [place] [address] 66265- 2247 14 May, 2016 [place] [address] [place] [id number] [place] [address] 75567- 3478 May, Bipolar 1 disorder, depressed, moderate F31.32 and Anxiety F41.9 [facility] [address] [place] [id number] [place] [address] 09355- 4920 May, Bipolar 1 disorder, depressed, moderate F31.32 and Anxiety F41.9 [facility] [address] [place] [id number] [place] [address] 73266- 9967 May, [facility] [address] [id number] [place] [address] 26950- 9365 May, Bipolar 1 disorder, depressed, moderate F31.32 [facility] [address] [id number] [place] [address] 76305- 2738 May, Bipolar 1 disorder, depressed, moderate F31.32 and Generalized anxiety disorder F41.1 [facility] [address] [id number] [place] [address] 82182- 2252 Apr, Bipolar 1 disorder, depressed, moderate F31.32 and Anxiety F41.9 [place] [address] [place] [id number] [place] [address] 07104- 1839 Apr, [place] [address] [place] [id number] [place] [address] 97781- 3265 Apr, Bipolar 1 disorder, depressed, moderate F31.32 and Anxiety F41.9 [place] [address] [place] [id number] [place] [address] 71108- 5401 Apr, Bipolar 1 disorder, depressed, moderate F31.32 and Anxiety F41.9 [place] [address] [place] [id number] [place] [address] 30518- 3957 Apr, Bipolar affective disorder, depressed, severe F31.4 and Generalized anxiety disorder F41.1 [place] [address] [place] [id number] [place] [address] 21805- 8091 Mar, Bipolar 1 disorder, depressed, moderate F31.32 and Anxiety F41.9 [place] [address] [place] [id number] [place] [address] 25938- 3685 Mar, Bipolar 1 disorder, depressed, moderate F31.32 and Anxiety F41.9 [place] [address] [place] [id number] [place] [address] 63246- 0850 Mar, Bipolar 1 disorder, mixed, moderate F31.62 [facility] [address] [place] [id number] [place] [address] 98421- 5906 Mar, [facility] [address] [place] [id number] [place] [address] 19201- 7599 Mar, Bipolar 1 disorder, mixed, moderate F31.62 ; Generalized anxiety disorder F41.1 and 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 (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 Z79.899 [facility] [address] [id number] [place] [address] 71089- 6020 Feb, Bipolar 1 disorder, depressed, moderate F31.32 and Anxiety F41.9 [facility] [address] [id number] [place] [address] 67256- 1230 Feb, Bipolar 1 disorder, depressed, moderate F31.32 and Other fdc (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 Z79.899 [facility] [address] [id number] [place] [address] 07114- 3154 Feb, [facility] [address] [place] [id number] [place] [address] 24907- 4093 Feb, Bipolar 1 disorder, depressed, moderate F31.32 and Anxiety F41.9 [facility] [address] [place] [id number] [place] [address] 77401- 8735 Feb, Bipolar 1 disorder, depressed, moderate F31.32 and 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 (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 Z79.899 [facility] [address] [id number] [place] [address] 96056- 0699 Feb, Bipolar 1 disorder, depressed, moderate F31.32 and Anxiety F41.9 [facility] [address] [place] [id number] [place] [address] 29866- 5314 Dec, Bipolar 1 disorder, depressed, moderate F31.32 and Anxiety F41.9 [facility] [address] [id number] [place] [address] 94061- 0275 Oct, [facility] [address] [id number] [place] [address] 122540- 0365 Oct, [facility] [address] [place] [id number] [place] [address] 859491- 8904 May, [facility] [address] [id number] [place] [address] 34238- 0317 May, [facility] [address] [facility] [id number] [place] [address]- 3105 Mar, [facility] [address] [facility] [id number] [address]- 9086 Mar, IMMUNIZATIONS No Known Immunizations SOCIAL HISTORY Never Assessed REASON FOR VISIT f/u---DBennettCALI PLAN OF CARE Activity Details Follow Up 2 Months Reason: f/u VITAL SIGNS Height 67.0 in 2017-03-15 Weight 164 lbs 2017-03-15 Heart Rate 80 bpm 2017-03-15 Respiratory Rate 20 2017-03-15 BMI 25.68 kg/m2 2017-03-15 Blood pressure systolic 118 mmHg 2017-03-15 Blood pressure diastolic 74 mmHg 2017-03-15 MEDICATIONS Medication Instructions Dosage Frequency Start Date End Date Duration Status Amlodipine Besylate 10 MG Orally Once a day 1 tablet 24h Active Diflucan 150 MG Orally one time 1 tablet Nov, 1 dose Not- Taking Protonix 40 MG Orally Once a day 1 tablet 24h 15 Nov, 2016 30 day(s) Active Ondansetron 8 MG Orally every 8 hrs 1 tablet on the tongue and allow to dissolve 8h Nov, 07 days Active Levothyroxine Sodium 50 MCG Orally Once a day 1 tablet on an empty stomach in the morning 24h 90 days Active Lamotrigine 200 mg Orally Once a day 1 tablet 24h Active Latuda 40 mg Orally Once a day at supper 1 tablet with food Jan, Active Metformin HCl 500 mg Orally Twice a day 1 tablet 12h Aug, Active Pyridium 200 MG Orally Three times a day 1 tablet after meals 8h Not-Taking Triamcinolone Acetonide 0.1 % Externally Twice a day 1 application to affected area 12h Feb, 5 days Active Lexapro 20 mg Orally Once a day 1 tablet 24h Mar, 30 day(s) Active Potassium Chloride ER 10 MEQ Orally Once a day 1 tablet with food 24h Nov, 90 days Active Omeprazole 40 MG Orally Once a day 1 capsule 24h 90 days Not-Taking Gabapentin 300 MG Orally twice a day as needed for anxiety 1 capsule Jan, Active Atorvastatin Calcium 20 mg Orally Once a day 1 tablet 24h Aug, 90 days Active HydrOXYzine HCl 50 mg 1 TABLET 2 TIMES A DAY NEEDED ORALLY 30 DAYS Active RESULTS No Results PROCEDURES Procedure Date Ordered Result Body Site [facility] VISIT ESTABLISHED PATIENT Mar 15, 2017 Mediacl Visit needs to be added with another visit on the same day Mar 15, 2017 INSTRUCTIONS MEDICATIONS ADMINISTERED No Known Medications [...] Cancer Head and Neck 2004 Hospitalization History [facility] Psychiatric Admission 2015
--- OUTSIDE RECORDS SUMMARY | 2017-09-29 18:47 | XMS REPORT ---
Author Author MICHELLE DARCI [facility] Address [address] [place] [address] Care Team Providers Care Proposal Writer Name Role Phone MICHELLE, DARCI Unavailable PROBLEMS Type Condition ICD9-CM Code [id number] Code Onset Dates Condition Status SNOMED Code Problem Gastroesophageal reflux disease with esophagitis K21.0 Active 047298609 Problem Polysubstance (including opioids) dependence with physiol dependence F19.20 Active 07260036 Problem History of esophageal cancer Z85.01 Active 225033202 Problem Seasonal allergies J30.2 Active 679783766 Problem Pre-diabetes R73.03 Active 856740528 Problem GERD (gastroesophageal reflux disease) K21.9 Active 871450944 Problem Borderline personality disorder F60.3 Active 00913066 Problem Pure hypercholesterolemia E78.00 Active 768645252 Problem Nephrolithiasis N20.0 Active 73448237 Problem STATE HEP A (ADULT) DX V05.3 Active 287448981 Problem Bipolar 1 disorder, depressed, moderate F31.32 Active 24651043 Problem Anxiety F41.9 Active 37098456 Problem Vitamin D insufficiency E55.9 Active 250198793 Problem Essential hypertension I10 Active 64603968 Problem Elevated serum creatinine R79.89 Active 636330916 Problem Acquired hypothyroidism E03.9 Active 742758995 ALLERGIES No Information ENCOUNTERS Encounter Location Date Diagnosis [facility] [id number] [address] Sep, [facility] [id number] [place] [address] 09928- 3516 Sep, [facility] [address] [address] Sep, [facility] [id number] [address] Sep, [place] [address] [place] [address] 41425- 4802 Aug, Bipolar 1 disorder, depressed, moderate F31.32 [place] [id number] [place] [address] 50294- 9572 Aug, Bipolar 1 disorder, depressed, moderate F31.32 [place] [address] 96690- 4468 Aug, Bipolar 1 disorder, depressed, moderate F31.32 [place] [id number] [place] [address] 83638- 7620 July, Candidal dermatitis B37.2 [place] [id number] [place] [address] 30371- 3087 July, Acquired hypothyroidism E03.9 [place] [address] 94480- 2187 July, Bipolar 1 disorder, depressed, moderate F31.32 [facility] [id number] [place] [address] 09664 -4985 July, Seasonal allergies J30.2 [place] [id number] [place] [address] 50182- 2972 July, Bipolar 1 disorder, depressed, moderate F31.32 [place] [id number] [place] [address] 79821- 4612 Jun, Pre-diabetes R73.03 [place] [id number] [place] [address] 55506- 9358 Jun, Bipolar 1 disorder, depressed, moderate F31.32 ; Anxiety F41.9 ; Borderline personality disorder F60.3 ; Polysubstance (including opioids ) dependence with physiol dependence F19.20 and Other specified abnormal findings of blood chemistry R79.89 [facility] [id number] [place] [address] 85442- 1065 Jun, Bipolar 1 disorder, depressed, moderate F31.32 [place] [address] [place] [address] 27219- 6971 May, Bipolar 1 disorder, depressed, moderate F31.32 [place] [id number] [place] [id number] May, Bipolar 1 disorder, depressed, moderate F31.32 [place] [id number] [place] [address] 17234- 1341 May, [place] [id number] [place] [address] 440301- 3729 May, [place] [address] [place] [address] 605463- 3885 May, Bipolar 1 disorder, depressed, moderate F31.32 [place] [id number] [place] [address] 87766- 4791 May, Bipolar 1 disorder, depressed, moderate F31.32 [place] [id number] [place] [address] 31002- 0902 May, Other specified abnormal findings of blood chemistry R79.89 [place] [id number] [place] [address] May, Essential hypertension I10 ; Acquired hypothyroidism E03.9 ; Gastroesophageal reflux disease with esophagitis K21.0 ; Hair loss L65.9 ; Hypokalemia, gastrointestinal losses E87.6 ; Pre-diabetes R73.03 ; Candidal dermatitis B37.2 and Pure hypercholesterolemia E78.00 [place] [id number] [place] [address] 97165- 6062 Apr, Bipolar 1 disorder, depressed, moderate F31.32 [place] [id number] [place] [id number] Apr, Bipolar 1 disorder, depressed, moderate F31.32 [place] [id number] [place] [address] 84468- 6153 Apr, Bipolar 1 disorder, depressed, moderate F31.32 and Anxiety F41.9 [facility] [id number] [place] [address] 47657 -1755 Mar, Encounter for immunization Z23 ; Fall, initial encounter W19.XXXA ; Rib pain on left side R07.81 and Left hip pain M25.552 [facility] [address] 72907- 7012 Mar, Bipolar 1 disorder, depressed, moderate F31.32 and Anxiety F41.9 [place] [address] 02029- 8683 Mar, Bipolar 1 disorder, depressed, moderate F31.32 ; Anxiety F41.9 ; Borderline personality disorder F60.3 and Polysubstance (including opioids) dependence with physiol dependence F19.20 [place] [address] 36651- 3083 Mar, Bipolar 1 disorder, depressed, moderate F31.32 and Anxiety F41.9 [facility] [address] 34602 -8006 Feb, Irritant contact dermatitis, unspecified trigger L24.9 [facility] [id number] [place] [address] 31634- 3024 Feb, [place] [id number] [place] [address] 07916- 3471 Feb, [facility] [address] 58769- 0205 Feb, Bipolar 1 disorder, depressed, moderate F31.32 and Anxiety F41.9 [place] [address] 00103- 1637 Feb, Acute non-recurrent maxillary sinusitis J01.00 [facility] [address] 07348- 2154 Feb, [place] [address] [place] [address]- 5843 Feb, Bipolar 1 disorder, depressed, moderate F31.32 [facility] [id number] [place] [address] 86987- 9456 Jan, [facility] [id number] [place] [address] 30463- 1092 Jan, Bipolar 1 disorder, depressed, moderate F31.32 ; Anxiety F41.9 ; Borderline personality disorder F60.3 and Polysubstance (including opioids) dependence with physiol dependence F19.20 [facility] [id number] [place] [address] 32163- 0495 Jan, Bipolar 1 disorder, depressed, moderate F31.32 and Anxiety F41.9 [facility] [id number] [place] [address] 97964- 4874 Jan, Bipolar 1 disorder, depressed, moderate F31.32 ; Anxiety F41.9 ; Borderline personality disorder F60.3 and Polysubstance (including opioids) dependence with physiol dependence F19.20 [facility] [id number] [place] [address] 43911- 5158 Jan, Bipolar 1 disorder, depressed, moderate F31.32 and Anxiety F41.9 [facility] [address] [place] [address] 43354- 1036 Dec, Hypokalemia, gastrointestinal losses E87.6 ; GERD ( gastroesophageal reflux disease) K21.9 and Bipolar 1 disorder, depressed, moderate F31.32 [facility] [address] [place] [address] 42253- 4547 Dec, Bipolar 1 disorder, depressed, moderate F31.32 and Anxiety F41.9 [facility] [id number] [place] [address] 75739 -7050 Dec, [facility] [id number] [place] [address] 25708- 4417 Dec, [facility] [id number] [place] [address] 54194 -1680 Dec, Fall (on) (from) other stairs and steps, initial encounter W10.8XXA ; Laceration of left lower extremity, initial encounter S81.812A ; Contusion of right knee, initial encounter S80.01XA and Contusion of right shoulder, initial encounter S40.011A [address] 22356- 1208 Dec, Bipolar 1 disorder, depressed, moderate F31.32 ; Anxiety F41.9 ; Borderline personality disorder F60.3 and Polysubstance (including opioids) dependence with physiol dependence F19.[address] 67370- 2998 Dec, Bipolar 1 disorder, depressed, moderate F31.32 and Anxiety F41.[address] 96595- 5737 Dec, [address] 25295- 9644 Dec, Hospital discharge follow-up Z09 ; Nephrolithiasis N20.0 ; Essential hypertension I10 ; Gastroesophageal reflux disease with esophagitis K21.0 and Anxiety F41.[address] 87568- 9288 Nov, [facility] [address] 35593 -7282 Nov, Dysuria R30.0 and Acute cystitis with hematuria N30.01 [facility] [address] 73380 -6969 Nov, [address] 90383- 8521 Nov, [place] [address] 37986- 1721 Nov, Gastroesophageal reflux disease with esophagitis K21.0 ; Hypercholesteremia E78.00 and Acquired hypothyroidism E03.9 [facility] IN [facility] [address] 89827 -979 18 Nov, 2016 Left wrist pain M25.532 and Contusion of left wrist, initial encounter S60.212A [place] [address] 89718 620 18 Nov, 2016 Bipolar 1 disorder, depressed, moderate F31.32 ; Anxiety F41.9 ; Borderline personality disorder F60.3 and Polysubstance (including opioids) dependence with physiol dependence F19.20 [facility] [address] 92532 -9806 15 Nov, 2016 Abdominal pain R10.9 and GERD (gastroesophageal reflux disease) K21.9 [place] [address] 93741- 9600 12 Nov, 2016 Hypokalemia, gastrointestinal losses E87.6 [place] [address] 05740- 3796 11 Nov, 2016 Dehydration E86.0 ; Hypokalemia, gastrointestinal losses E87.6 and Vaginal candidiasis B37.3 [place] [address] [address] [id number]- 3330 08 Nov, 2016 Abnormal weight loss R63.4 ; Diarrhea, unspecified R19.7 ; Vomiting, unspecified R11.10 ; Generalized abdominal pain R10.84 and Decreased breath sounds R06.89 [place] [address] 02204- 3609 Oct, Bipolar 1 disorder, depressed, moderate F31.32 and Anxiety F41.9 [place]31- 6642 Sep, Bipolar 1 disorder, depressed, moderate F31.32 ; Anxiety F41.9 ; Borderline personality disorder F60.3 and Polysubstance (including opioids) dependence with physiol dependence F19.20 [place] [address] [place] [address]- 0982 Sep, Bipolar 1 disorder, depressed, moderate F31.32 and Anxiety F41.9 [place] [address] 76127- 2261 Sep, Bipolar 1 disorder, depressed, moderate F31.32 [place] [address] 56275- 1694 Sep, Bipolar 1 disorder, depressed, moderate F31.32 and Anxiety F41.9 [facility] [address] 02825 -7042 Sep, Pain of toe of right foot M79.674 [place] [address] 86549- 5240 Sep, [facility] [place] [address] 19625 -7120 Sep, Cellulitis of right ankle L03.115 [place] [address] 33106- 1306 Sep, Bipolar 1 disorder, depressed, moderate F31.32 and Anxiety F41.9 [place] [id number] [place] [address] 04037- 5196 Sep, [place] [id number] [place] [address] 60635- 4791 Sep, [place] [address] 97644- 7439 Sep, Bipolar 1 disorder, depressed, moderate F31.32 and Anxiety F41.9 [place] [address] 60959- 6663 Sep, Accidental spider bite T63.301A [place] [id number] [place] [address] 54690- 2479 Aug, Bipolar 1 disorder, depressed, moderate F31.32 ; Anxiety F41.9 ; Borderline personality disorder F60.3 and Polysubstance (including opioids) dependence with physiol dependence F19.20 [place] [address] 18001- 7032 Aug, [place] [address] 73730- 3256 Aug, Bipolar 1 disorder, depressed, moderate F31.32 and Anxiety F41.9 [place] [address] 98596- 8422 Aug, Pre-diabetes R73.03 ; Acute seasonal allergic rhinitis due to pollen J30.1 ; Hypercholesteremia E78.00 and Nausea R11.0 [place] [address] 97977- 0690 Aug, [place] [address] 62450- 3650 Aug, Bipolar 1 disorder, depressed, moderate F31.32 and Anxiety F41.9 [facility] [address] 13160- 8764 08 Aug, 2016 [facility] [address] 08032- 0926 Aug, [place] [address] 37652- 2895 Aug, [facility] [address] 02156- 3423 Aug, Bipolar 1 disorder, depressed, moderate F31.32 and Anxiety F41.9 [facility] [address] 88683- 9751 Aug, [facility] [address] 03293 -3077 Aug, Insect bite, initial encounter W57.XXXA and Cellulitis of left lower leg L03.116 [place] [address] 52934- 1279 Aug, Bipolar 1 disorder, depressed, moderate F31.32 and Borderline personality disorder F60.3 [place] [id number] [place] [address] 76916- 6092 July, [place] [id number] [place] [address] 73421- 6126 July, [place] [address] 39788- 8752 July, Encounter for routine adult health examination with abnormal findings Z00.01 ; History of esophageal cancer Z85.01 ; Bipolar 1 disorder, depressed, moderate F31.32 ; Anxiety F41.9 ; Acquired hypothyroidism E03.9 ; Essential hypertension I10 ; Gastroesophageal reflux disease with esophagitis K21.0 and Encounter for immunization Z23 [place] [address] 08225- 0575 July, Bipolar 1 disorder, depressed, moderate F31.32 and Anxiety F41.9 [place] [id number] [place] [address] 89635- 9128 July, [place] [address] 31573- 4124 July, Bipolar 1 disorder, depressed, moderate F31.32 and Anxiety F41.9 [place] [id number] [place] [address] 98258- 1816 July, Bipolar 1 disorder, depressed, moderate F31.32 [place] [id number] [place] [address] 47431- 8926 July, Bipolar 1 disorder, depressed, moderate F31.32 and Anxiety F41.9 [place] [id number] [place] [address] 27463- 2733 Jun, Bipolar 1 disorder, depressed, moderate F31.32 [place] [id number] [place] [address] 44665- 0061 Jun, Bipolar 1 disorder, depressed, moderate F31.32 and Borderline personality disorder F60.3 [facility] [id number] [place] [address] 84102- 5315 Jun, Bipolar 1 disorder, depressed, moderate F31.32 [facility] [id number] [place] 3516 Jun, Bipolar 1 disorder, depressed, moderate F31.32 [facility] [id number] [place] [address] 54409- 4886 May, Bipolar 1 disorder, depressed, moderate F31.32 and Anxiety F41.9 [place] [id number] [place] [address]- 5872 May, Bipolar 1 disorder, depressed, moderate F31.32 and Anxiety F41.9 [place] [id number] [place] [address] 86907- 7699 May, Bipolar 1 disorder, depressed, moderate F31.32 and Anxiety F41.9 [place] [id number] [place] [address] 27897- 8634 May, Bipolar 1 disorder, depressed, moderate F31.32 and Borderline personality disorder F60.3 [place] [id number] [place] [address] 23399- 9137 14 May, 2016 [place] [id number] [place] [address] 36596- 3322 May, Bipolar 1 disorder, depressed, moderate F31.32 and Anxiety F41.9 [facility] [address] [place] [address] 66590- 9551 09 May, 2016 Bipolar 1 disorder, depressed, moderate F31.32 and Anxiety F41.9 [facility] [id number] [place] [address] 46015- 8016 06 May, 2016 [facility] [id number] [place] [address] 48273- 2593 May, Bipolar 1 disorder, depressed, moderate F31.32 [place] [address] [place] [address] 59055- 3176 May, Bipolar 1 disorder, depressed, moderate F31.32 and Generalized anxiety disorder F41.1 [facility] [id number] [place] [address]- 3423 Apr, Bipolar 1 disorder, depressed, moderate F31.32 and Anxiety F41.9 [place] [id number] [place] [address] 30635- 1477 Apr, [place] [address] 375894- 2077 Apr, Bipolar 1 disorder, depressed, moderate F31.32 and Anxiety F41.9 [place] [id number] [place] [address] 57025- 8814 09 Apr, 2016 Bipolar 1 disorder, depressed, moderate F31.32 and Anxiety F41.9 [place] [id number] [place] [address] 92768- 4612 Apr, Bipolar affective disorder, depressed, severe F31.4 and Generalized anxiety disorder F41.1 [place] [id number] [place] [address] 24783- 4343 Mar, Bipolar 1 disorder, depressed, moderate F31.32 and Anxiety F41.9 [place] [id number] [place] [address] 30430- 7872 Mar, Bipolar 1 disorder, depressed, moderate F31.32 and Anxiety F41.9 [place] [id number] [place] [address] 12553- 8996 Mar, Bipolar 1 disorder, mixed, moderate F31.62 [place] [id number] [place] [address] 62510- 6197 Mar, [place] [id number] [place] [address] 40150- 7113 Mar, Bipolar 1 disorder, mixed, moderate F31.62 ; Generalized anxiety disorder F41.1 and Other long-term (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 Z79.899 [facility] [id number] [place] [address] 13697- 8088 Feb, Bipolar 1 disorder, depressed, moderate F31.32 and Anxiety F41.9 [facility] [id number] [place] [address] 34342- 1113 Feb, Bipolar 1 disorder, depressed, moderate F31.32 and 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 [facility] [id number] [place] [address] 16945- 3645 Feb, [facility] [id number] [place] [address] 33028- 8228 Feb, Bipolar 1 disorder, depressed, moderate F31.32 and Anxiety F41.9 [facility] [id number] [place] [address] 87126- 8242 Feb, Bipolar 1 disorder, depressed, moderate F31.32 and Other long-term (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 Z79.899 [facility] [id number] [place] [address] 86478- 6141 Feb, Bipolar 1 disorder, depressed, moderate F31.32 and Anxiety F41.9 [facility] [id number] [place] [address] 87602- 9683 Dec, Bipolar 1 disorder, depressed, moderate F31.32 and Anxiety F41.9 [facility] [id number] [place] [address] 02947- 0522 Oct, [facility] [id number] [place] [address] 86501- 1145 Oct, [facility] [id number] [place] [address] 10010- 5783 May, [facility] [id number] [place] [address] 24772- 8107 May, [facility] [address] [facility] [id number] [address]- 6081 Mar, [facility] [address] [facility] [id number] [place] [address]- 4059 Mar, IMMUNIZATIONS No Known Immunizations SOCIAL HISTORY Never Assessed REASON FOR VISIT Refill request PLAN OF CARE VITAL SIGNS MEDICATIONS Medication Instructions Dosage Frequency Start Date End Date Duration Status Gabapentin 300 MG Orally twice a day as needed for anxiety 1 capsule Jan, 30 days Active RESULTS No Results [...] Cancer Head and Neck 2004 Hospitalization History [facility] Psychiatric Admission 2015
--- OUTSIDE RECORDS SUMMARY | 2017-09-29 18:50 | XMS REPORT ---
Author Author MICHELLE DARCI [facility] Address [address] [place] [address] Care Team Providers Care Otm Consultant Name Role Phone MICHELLE, DARCI Unavailable PROBLEMS Type Condition ICD9-CM Code SEE65-MS Code Onset Dates Condition Status SNOMED Code Problem Gastroesophageal reflux disease with esophagitis K21.0 Active 244250497 Problem Polysubstance (including opioids) dependence with physiol dependence F19.20 Active 23157100 Problem History of esophageal cancer Z85.01 Active 029638249 Problem Seasonal allergies J30.2 Active 020136876 Problem Pre-diabetes R73.03 Active 011193509 Problem GERD (gastroesophageal reflux disease) K21.9 Active 069094558 Problem Borderline personality disorder F60.3 Active 64358100 Problem Pure hypercholesterolemia E78.00 Active 327018167 Problem Nephrolithiasis N20.0 Active 67929740 Problem STATE HEP A (ADULT) DX V05.3 Active 987728159 Problem Bipolar 1 disorder, depressed, moderate F31.32 Active 48806363 Problem Anxiety F41.9 Active 33393931 Problem Vitamin D insufficiency E55.9 Active 728133591 Problem Essential hypertension I10 Active 87292372 Problem Elevated serum creatinine R79.89 Active 124431435 Problem Acquired hypothyroidism E03.9 Active 664186812 ALLERGIES No Information ENCOUNTERS Encounter Location Date Diagnosis [facility] [id number] [address] Sep, [facility] [id number] [address] 39634- 1478 Sep, [facility] [address] [address] Sep, [facility] [id number] [address] Sep, [place] [address] [address] 92246- 8118 Aug, Bipolar 1 disorder, depressed, moderate F31.32 [place] [id number] [address] 90481- 4507 Aug, Bipolar 1 disorder, depressed, moderate F31.32 [place] [address] 79187- 8155 Aug, Bipolar 1 disorder, depressed, moderate F31.32 [place] [id number] [address] 40831- 9674 July, Candidal dermatitis B37.2 [place] [id number] [address] 50312- 5346 July, Acquired hypothyroidism E03.9 [place] [address] 65507- 1329 July, Bipolar 1 disorder, depressed, moderate F31.32 [facility] [id number] [address] 91622 -7930 July, Seasonal allergies J30.2 [place] [id number] [address] 51172- 6142 July, Bipolar 1 disorder, depressed, moderate F31.32 [place] [id number] [address] 67624- 7564 Jun, Pre-diabetes R73.03 [place] [id number] [address] 34193- 4902 Jun, Bipolar 1 disorder, depressed, moderate F31.32 ; Anxiety F41.9 ; Borderline personality disorder F60.3 ; Polysubstance (including opioids ) dependence with physiol dependence F19.20 and Other specified abnormal findings of blood chemistry R79.89 [facility] [id number] [address] 24769- 8403 Jun, Bipolar 1 disorder, depressed, moderate F31.32 [place] [address] [address] 97596- 4707 May, Bipolar 1 disorder, depressed, moderate F31.32 [place] [id number] [place] [id number] May, Bipolar 1 disorder, depressed, moderate F31.32 [place] [id number] [address] 82733- 3935 May, [place] [id number] [address] 162525- 3403 May, [place] [address]99203- 8018 May, Bipolar 1 disorder, depressed, moderate F31.32 [place] [id number] [address] 55394- 1083 May, Bipolar 1 disorder, depressed, moderate F31.32 [place] [id number] [address] 63429- 9144 May, Other specified abnormal findings of blood chemistry R79.89 [place] [id number] [place] [id number] May, Essential hypertension I10 ; Acquired hypothyroidism E03.9 ; Gastroesophageal reflux disease with esophagitis K21.0 ; Hair loss L65.9 ; Hypokalemia, gastrointestinal losses E87.6 ; Pre-diabetes R73.03 ; Candidal dermatitis B37.2 and Pure hypercholesterolemia E78.00 [place] [id number] [address] 65211- 3405 Apr, Bipolar 1 disorder, depressed, moderate F31.32 [place] [id number] [place] [address] 8994 Apr, Bipolar 1 disorder, depressed, moderate F31.32 [place] [id number] [address] 92994- 4301 Apr, Bipolar 1 disorder, depressed, moderate F31.32 and Anxiety F41.9 [facility] [id number] [address] 97863 -7037 Mar, Encounter for immunization Z23 ; Fall, initial encounter W19.XXXA ; Rib pain on left side R07.81 and Left hip pain M25.552 [facility] [address] 07228- 3937 Mar, Bipolar 1 disorder, depressed, moderate F31.32 and Anxiety F41.9 [place] [address] 57216- 3278 Mar, Bipolar 1 disorder, depressed, moderate F31.32 ; Anxiety F41.9 ; Borderline personality disorder F60.3 and Polysubstance (including opioids) dependence with physiol dependence F19.20 [place] [address] 14543- 3085 Mar, Bipolar 1 disorder, depressed, moderate F31.32 and Anxiety F41.9 [facility] [address] 22253 -2107 Feb, Irritant contact dermatitis, unspecified trigger L24.9 [facility] [id number] [address] 85742- 7658 Feb, [place] [id number] [address] 79511- 2774 Feb, [facility] [address] 62650- 1367 Feb, Bipolar 1 disorder, depressed, moderate F31.32 and Anxiety F41.9 [place] [address] 99166- 1544 Feb, Acute non-recurrent maxillary sinusitis J01.00 [facility] [address] 32306- 4680 Feb, [place] [address] [place] [address]- 2855 Feb, Bipolar 1 disorder, depressed, moderate F31.32 [facility] [id number] [address] 46325- 1984 Jan, [facility] [id number] [address] 65670- 3908 Jan, Bipolar 1 disorder, depressed, moderate F31.32 ; Anxiety F41.9 ; Borderline personality disorder F60.3 and Polysubstance (including opioids) dependence with physiol dependence F19.20 [facility] [id number] [address] 15462- 7654 Jan, Bipolar 1 disorder, depressed, moderate F31.32 and Anxiety F41.9 [facility] [id number] [address] 13998- 3572 Jan, Bipolar 1 disorder, depressed, moderate F31.32 ; Anxiety F41.9 ; Borderline personality disorder F60.3 and Polysubstance (including opioids) dependence with physiol dependence F19.20 [facility] [id number] [address] 02585- 1273 Jan, Bipolar 1 disorder, depressed, moderate F31.32 and Anxiety F41.9 [facility] [address] [address] 05214- 3171 Dec, Hypokalemia, gastrointestinal losses E87.6 ; GERD ( gastroesophageal reflux disease) K21.9 and Bipolar 1 disorder, depressed, moderate F31.32 [facility] [address] [address] 23409- 0870 Dec, Bipolar 1 disorder, depressed, moderate F31.32 and Anxiety F41.9 [facility] [id number] [address] 17404 -3474 Dec, [facility] [id number] [address] 29643- 2674 Dec, [facility] [id number] [place] [address] 62892 -4571 Dec, Fall (on) (from) other stairs and steps, initial encounter W10.8XXA ; Laceration of left lower extremity, initial encounter S81.812A ; Contusion of right knee, initial encounter S80.01XA and Contusion of right shoulder, initial encounter S40.011A [address] 80651- 9532 Dec, Bipolar 1 disorder, depressed, moderate F31.32 ; Anxiety F41.9 ; Borderline personality disorder F60.3 and Polysubstance (including opioids) dependence with physiol dependence F19.[address] 02225- 9302 Dec, Bipolar 1 disorder, depressed, moderate F31.32 and Anxiety F41.[address] 12887- 1144 Dec, [address] 58169- 6646 Dec, Hospital discharge follow-up Z09 ; Nephrolithiasis N20.0 ; Essential hypertension I10 ; Gastroesophageal reflux disease with esophagitis K21.0 and Anxiety F41.[address] 77078- 5905 Nov, [facility] [address] 98361 -6549 Nov, Dysuria R30.0 and Acute cystitis with hematuria N30.01 [facility] [place] [address] [address] -[address]95 Nov, [address] 40286- 4136 Nov, [place] [address] 38725- 5243 Nov, Gastroesophageal reflux disease with esophagitis K21.0 ; Hypercholesteremia E78.00 and Acquired hypothyroidism E03.9 [facility] [address] 85265 -483 18 Nov, 2016 Left wrist pain M25.532 and Contusion of left wrist, initial encounter S60.212A [place] [address] 97886 419 18 Nov, 2016 Bipolar 1 disorder, depressed, moderate F31.32 ; Anxiety F41.9 ; Borderline personality disorder F60.3 and Polysubstance (including opioids) dependence with physiol dependence F19.20 [facility] [address] 04697 -1264 15 Nov, 2016 Abdominal pain R10.9 and GERD (gastroesophageal reflux disease) K21.9 [place] [address] 67063- 0158 12 Nov, 2016 Hypokalemia, gastrointestinal losses E87.6 [place] [address] 41552- 8582 11 Nov, 2016 Dehydration E86.0 ; Hypokalemia, gastrointestinal losses E87.6 and Vaginal candidiasis B37.3 [place] [address] [id number]- 0764 08 Nov, 2016 Abnormal weight loss R63.4 ; Diarrhea, unspecified R19.7 ; Vomiting, unspecified R11.10 ; Generalized abdominal pain R10.84 and Decreased breath sounds R06.89 [place] [address] 85391- 2514 Oct, Bipolar 1 disorder, depressed, moderate F31.32 and Anxiety F41.9 [place]388- 2698 Sep, Bipolar 1 disorder, depressed, moderate F31.32 ; Anxiety F41.9 ; Borderline personality disorder F60.3 and Polysubstance (including opioids) dependence with physiol dependence F19.20 [place] [address] [place] [address]- 4407 Sep, Bipolar 1 disorder, depressed, moderate F31.32 and Anxiety F41.9 [place] [address] 43618- 1588 Sep, Bipolar 1 disorder, depressed, moderate F31.32 [place] [address] 38870- 6560 Sep, Bipolar 1 disorder, depressed, moderate F31.32 and Anxiety F41.9 [facility] [address] 8[address]34 -6178 Sep, Pain of toe of right foot M79.674 [place] [address] 06860- 8969 Sep, [facility] [place] [address] 46646 -9193 Sep, Cellulitis of right ankle L03.115 [place] [address] 47082- 3280 Sep, Bipolar 1 disorder, depressed, moderate F31.32 and Anxiety F41.9 [place] [id number] [place] [address] 31305- 3034 Sep, [place] [id number] [address] 90496- 7107 Sep, [place] [address] 59274- 5780 Sep, Bipolar 1 disorder, depressed, moderate F31.32 and Anxiety F41.9 [place] [address] 78706- 3244 Sep, Accidental spider bite T63.301A [place] [id number] [place] [address] 21669- 9562 Aug, Bipolar 1 disorder, depressed, moderate F31.32 ; Anxiety F41.9 ; Borderline personality disorder F60.3 and Polysubstance (including opioids) dependence with physiol dependence F19.20 [place] [address] 25148- 9318 Aug, [place] [address] 70693- 1619 Aug, Bipolar 1 disorder, depressed, moderate F31.32 and Anxiety F41.9 [place] [address] 69611- 2932 Aug, Pre-diabetes R73.03 ; Acute seasonal allergic rhinitis due to pollen J30.1 ; Hypercholesteremia E78.00 and Nausea R11.0 [place] [address] 49331- 6568 Aug, [place] [address] 56474- 8946 Aug, Bipolar 1 disorder, depressed, moderate F31.32 and Anxiety F41.9 [facility] [address] 71789- 7122 08 Aug, 2016 [facility] [address] 26401- 2703 Aug, [place] [address] 19887- 2933 Aug, [facility] [address] 20896- 5408 Aug, Bipolar 1 disorder, depressed, moderate F31.32 and Anxiety F41.9 [facility] [address] 28007- 9019 Aug, [facility] [address] 38196 -0973 Aug, Insect bite, initial encounter W57.XXXA and Cellulitis of left lower leg L03.116 [place] [address] 05465- 9367 Aug, Bipolar 1 disorder, depressed, moderate F31.32 and Borderline personality disorder F60.3 [place] [id number] [place] [address] 15399- 1703 July, [place] [id number] [place] [address] 85463- 5338 July, [place] [address] 82666- 1547 July, Encounter for routine adult health examination with abnormal findings Z00.01 ; History of esophageal cancer Z85.01 ; Bipolar 1 disorder, depressed, moderate F31.32 ; Anxiety F41.9 ; Acquired hypothyroidism E03.9 ; Essential hypertension I10 ; Gastroesophageal reflux disease with esophagitis K21.0 and Encounter for immunization Z23 [place] [address] 72405- 8506 July, Bipolar 1 disorder, depressed, moderate F31.32 and Anxiety F41.9 [place] [id number] [address] 67534- 3388 July, [place] [address] 81699- 4960 July, Bipolar 1 disorder, depressed, moderate F31.32 and Anxiety F41.9 [place] [id number] [address] 26807- 8851 July, Bipolar 1 disorder, depressed, moderate F31.32 [place] [id number] [address] 51128- 6015 July, Bipolar 1 disorder, depressed, moderate F31.32 and Anxiety F41.9 [place] [id number] [address] 71444- 0433 Jun, Bipolar 1 disorder, depressed, moderate F31.32 [place] [id number] [address] 39079- 1814 Jun, Bipolar 1 disorder, depressed, moderate F31.32 and Borderline personality disorder F60.3 [facility] [id number] [address] 06256- 6272 Jun, Bipolar 1 disorder, depressed, moderate F31.32 [facility] [id number] [place] Jun, Bipolar 1 disorder, depressed, moderate F31.32 [facility] [id number] [address] 73757- 0603 May, Bipolar 1 disorder, depressed, moderate F31.32 and Anxiety F41.9 [place] [id number] [place] [address]24 May, Bipolar 1 disorder, depressed, moderate F31.32 and Anxiety F41.9 [place] [id number] [address] 99537- 0629 May, Bipolar 1 disorder, depressed, moderate F31.32 and Anxiety F41.9 [place] [id number] [address] 30026- 0837 May, Bipolar 1 disorder, depressed, moderate F31.32 and Borderline personality disorder F60.3 [place] [id number] [address] 75814- 4586 14 May, 2016 [place] [id number] [address] 15645- 2428 May, Bipolar 1 disorder, depressed, moderate F31.32 and Anxiety F41.9 [facility] [address] [place] [address] 72090- 2367 09 May, 2016 Bipolar 1 disorder, depressed, moderate F31.32 and Anxiety F41.9 [facility] [id number] [address] 94823- 5048 06 May, 2016 [facility] [id number] [address] 00361- 2769 May, Bipolar 1 disorder, depressed, moderate F31.32 [place] [address] [place] [address] 88107- 8472 May, Bipolar 1 disorder, depressed, moderate F31.32 and Generalized anxiety disorder F41.1 [facility] [id number] [place] [address]- 9946 Apr, Bipolar 1 disorder, depressed, moderate F31.32 and Anxiety F41.9 [place] [id number] [place] [address] 08866- 2132 Apr, [place] [address] 765526- 0640 Apr, Bipolar 1 disorder, depressed, moderate F31.32 and Anxiety F41.9 [place] [id number] [place] [address] 77316- 2876 09 Apr, 2016 Bipolar 1 disorder, depressed, moderate F31.32 and Anxiety F41.9 [place] [id number] [address] 96038- 7212 Apr, Bipolar affective disorder, depressed, severe F31.4 and Generalized anxiety disorder F41.1 [place] [id number] [address] 60309- 9450 Mar, Bipolar 1 disorder, depressed, moderate F31.32 and Anxiety F41.9 [place] [id number] [address] 17340- 9495 Mar, Bipolar 1 disorder, depressed, moderate F31.32 and Anxiety F41.9 [place] [id number] [address] 26830- 9830 Mar, Bipolar 1 disorder, mixed, moderate F31.62 [place] [id number] [address] 74595- 3872 Mar, [place] [id number] [place] [address] 12249- 4146 Mar, Bipolar 1 disorder, mixed, moderate F31.62 ; Generalized anxiety disorder F41.1 and Other intermediate (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 Z79.899 [facility] [id number] [place] [address] 50422- 5124 Feb, Bipolar 1 disorder, depressed, moderate F31.32 and Anxiety F41.9 [facility] [id number] [place] [address] 24922- 6165 Feb, Bipolar 1 disorder, depressed, moderate F31.32 and Other long term care phlebotomist (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 Z79.899 [facility] [id number] [place] [address] 78633- 9286 Feb, [facility] [id number] [place] [address] 61629- 3346 Feb, Bipolar 1 disorder, depressed, moderate F31.32 and Anxiety F41.9 [facility] [id number] [place] [address] 36777- 3638 Feb, Bipolar 1 disorder, depressed, moderate F31.32 and Other intermediate (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 Z79.899 [facility] [id number] [place] [address] 25454- 4167 Feb, Bipolar 1 disorder, depressed, moderate F31.32 and Anxiety F41.9 [facility] [id number] [place] [address] 37589- 8046 Dec, Bipolar 1 disorder, depressed, moderate F31.32 and Anxiety F41.9 [facility] [id number] [place] [address] 00608- 0621 Oct, [facility] [id number] [place] [address] 76432- 3058 Oct, [facility] [id number] [place] [address] 32347- 0383 May, [facility] [id number] [place] [address] 26664- 2658 May, [facility] [address] [facility] [id number] [place] [address]- 3963 Mar, [facility] [address] [facility] [id number] [place] [address]- 4936 Mar, IMMUNIZATIONS No Known Immunizations SOCIAL HISTORY Never Assessed REASON FOR VISIT Refill request PLAN OF CARE VITAL SIGNS MEDICATIONS Medication Instructions Dosage Frequency Start Date End Date Duration Status Lamotrigine 200 mg Orally Once a day [...] Cancer Head and Neck 2004 Hospitalization History [facility] Psychiatric Admission 2015
--- OUTSIDE RECORDS SUMMARY | 2017-09-29 18:54 | XMS REPORT ---
Author Author GURINDER NORTON Organization [facility] Address [address] [place] [address] Care Team Providers Care Cook Seafood Name Role Phone GURINDER NORTON Unavailable PROBLEMS Type Condition ICD9-CM Code OXX26-NS Code Onset Dates Condition Status SNOMED Code Problem Gastroesophageal reflux disease with esophagitis K21.0 Active 228246342 Problem Polysubstance (including opioids) dependence with physiol dependence F19.20 Active 10992126 Problem History of esophageal cancer Z85.01 Active 969865815 Problem Seasonal allergies J30.2 Active 952552143 Problem Pre-diabetes R73.03 Active 144925673 Problem GERD (gastroesophageal reflux disease) K21.9 Active 074610667 Problem Borderline personality disorder F60.3 Active 03956833 Problem Pure hypercholesterolemia E78.00 Active 937351095 Problem Nephrolithiasis N20.0 Active 89312040 Problem STATE HEP A (ADULT) DX V05.3 Active 833747955 Problem Bipolar 1 disorder, depressed, moderate F31.32 Active 75445206 Problem Anxiety F41.9 Active 67738005 Problem Vitamin D insufficiency E55.9 Active 083427615 Problem Essential hypertension I10 Active 52219944 Problem Elevated serum creatinine R79.89 Active 719885680 Problem Acquired hypothyroidism E03.9 Active 267099440 ALLERGIES No Information ENCOUNTERS Encounter Location Date Diagnosis [facility] [id number] [address] Sep, [facility] [address], [place] [address] Sep, [facility] [id number], [place] [address] Sep, [facility] [id number], [place] [address] Sep, [place] [id number] [place] [address] 04605- 1631 Aug, Bipolar 1 disorder, depressed, moderate F31.32 [place] [address] 40121- 7758 Aug, Bipolar 1 disorder, depressed, moderate F31.32 [place] [address] 99946- 7254 Aug, Bipolar 1 disorder, depressed, moderate F31.32 [place] [address] 11348- 4178 July, Candidal dermatitis B37.2 [place] [address] 67842- 0742 July, Acquired hypothyroidism E03.9 [place] [address] 86369- 8275 July, Bipolar 1 disorder, depressed, moderate F31.32 [facility] [address] [address] July, Seasonal allergies J30.2 [place] [address] 86693- 9103 July, Bipolar 1 disorder, depressed, moderate F31.32 [place] [id number] [place] [address] 38117- 4694 Jun, Pre-diabetes R73.03 [place] [address] 19235- 3984 Jun, Bipolar 1 disorder, depressed, moderate F31.32 ; Anxiety F41.9 ; Borderline personality disorder F60.3 ; Polysubstance (including opioids ) dependence with physiol dependence F19.20 and Other specified abnormal findings of blood chemistry R79.89 [place] [id number] [place] [address] 23504- 2500 Jun, Bipolar 1 disorder, depressed, moderate F31.32 [place] [id number] [place] [address] 29089- 1617 May, Bipolar 1 disorder, depressed, moderate F31.32 [place] [id number] [place] [address] May, Bipolar 1 disorder, depressed, moderate F31.32 [place] [id number] [place] [address] 14259- 5261 May, [place] [address] 346177- 4427 May, [place] [address] 346176- 9386 May, Bipolar 1 disorder, depressed, moderate F31.32 [place] [address] 02604- 1556 May, Bipolar 1 disorder, depressed, moderate F31.32 [place] [id number] [place] [address] 04760- 9397 May, Other specified abnormal findings of blood chemistry R79.89 [place] [id number] 8988 May, Essential hypertension I10 ; Acquired hypothyroidism E03.9 ; Gastroesophageal reflux disease with esophagitis K21.0 ; Hair loss L65.9 ; Hypokalemia, gastrointestinal losses E87.6 ; Pre-diabetes R73.03 ; Candidal dermatitis B37.2 and Pure hypercholesterolemia E78.00 [place] [id number] [place] [address] 16426- 6517 Apr, Bipolar 1 disorder, depressed, moderate F31.32 [place] [id number] [place] [id number] Apr, Bipolar 1 disorder, depressed, moderate F31.32 [place] [id number] [place] [address] 75995- 8169 Apr, Bipolar 1 disorder, depressed, moderate F31.32 and Anxiety F41.9 [facility] [id number] [place] [address] 33428 -9772 Mar, Encounter for immunization Z23 ; Fall, initial encounter W19.XXXA ; Rib pain on left side R07.81 and Left hip pain M25.552 [facility] [address] 57174- 3771 Mar, Bipolar 1 disorder, depressed, moderate F31.32 and Anxiety F41.9 [place] [address] 64232- 0495 Mar, Bipolar 1 disorder, depressed, moderate F31.32 ; Anxiety F41.9 ; Borderline personality disorder F60.3 and Polysubstance (including opioids) dependence with physiol dependence F19.20 [place] [address] 44876- 3913 Mar, Bipolar 1 disorder, depressed, moderate F31.32 and Anxiety F41.9 [facility] [address] 53428 -0631 Feb, Irritant contact dermatitis, unspecified trigger L24.9 [place] [address] 54472- 2902 Feb, [place] [address] 58304- 9342 Feb, [place] [address] 76767- 5206 Feb, Bipolar 1 disorder, depressed, moderate F31.32 and Anxiety F41.9 [place] [address] 12348- 2362 Feb, Acute non-recurrent maxillary sinusitis J01.00 [place] [id number] [place] [address] 95751- 2606 Feb, [place] [address] 17428- 1288 Feb, Bipolar 1 disorder, depressed, moderate F31.32 [facility] [id number] [place] [address] 99927- 2928 Jan, [facility] [id number] [place] [address] 48653- 8444 Jan, Bipolar 1 disorder, depressed, moderate F31.32 ; Anxiety F41.9 ; Borderline personality disorder F60.3 and Polysubstance (including opioids) dependence with physiol dependence F19.20 [facility] [id number] [place] [address] 32250- 0541 Jan, Bipolar 1 disorder, depressed, moderate F31.32 and Anxiety F41.9 [place] [id number] [place] [address] 28412- 0543 Jan, Bipolar 1 disorder, depressed, moderate F31.32 ; Anxiety F41.9 ; Borderline personality disorder F60.3 and Polysubstance (including opioids) dependence with physiol dependence F19.20 [facility] [id number] [place] [address] 85384- 1224 Jan, Bipolar 1 disorder, depressed, moderate F31.32 and Anxiety F41.9 [facility] [id number] [place] [address] 24849- 2218 Dec, Hypokalemia, gastrointestinal losses E87.6 ; GERD ( gastroesophageal reflux disease) K21.9 and Bipolar 1 disorder, depressed, moderate F31.32 [facility] [id number] [place] [address] 43256- 6752 Dec, Bipolar 1 disorder, depressed, moderate F31.32 and Anxiety F41.9 [facility] [id number] [place] [address] 50417 -3824 Dec, [facility] [id number] [place] [address] 29700- 3433 Dec, [facility] [address] [place] [address] Dec, Fall (on) (from) other stairs and steps, initial encounter W10.8XXA ; Laceration of left lower extremity, initial encounter S81.812A ; Contusion of right knee, initial encounter S80.01XA and Contusion of right shoulder, initial encounter S40.011A [address] 23744- 481 Dec, Bipolar 1 disorder, depressed, moderate F31.32 ; Anxiety F41.9 ; Borderline personality disorder F60.3 and Polysubstance (including opioids) dependence with physiol dependence F19.[address] 705 Dec, Bipolar 1 disorder, depressed, moderate F31.32 and Anxiety F41.[address] 22681- 7447 Dec, [place] [id number] 6856 Dec, Hospital discharge follow-up Z09 ; Nephrolithiasis N20.0 ; Essential hypertension I10 ; Gastroesophageal reflux disease with esophagitis K21.0 and Anxiety F41.9 [place] [address] 84087- 3294 Nov, [facility] [address] 95068 -0453 Nov, Dysuria R30.0 and Acute cystitis with hematuria N30.01 [facility] [address] 67[address] -4375 Nov, [address] 44887- 9841 Nov, [place] [address] 20109- 6541 Nov, Gastroesophageal reflux disease with esophagitis K21.0 ; Hypercholesteremia E78.00 and Acquired hypothyroidism E03.9 [facility] [address] [address] -5895 18 Nov, 2016 Left wrist pain M25.532 and Contusion of left wrist, initial encounter S60.212A [place] [address] 91974- 2067 18 Nov, 2016 Bipolar 1 disorder, depressed, moderate F31.32 ; Anxiety F41.9 ; Borderline personality disorder F60.3 and Polysubstance (including opioids) dependence with physiol dependence F19.20 [facility] [address] 03068 -9382 15 Nov, 2016 Abdominal pain R10.9 and GERD (gastroesophageal reflux disease) K21.9 [place] [address] 95224- 6777 12 Nov, 2016 Hypokalemia, gastrointestinal losses E87.6 [place] [address] 82595- 5158 11 Nov, 2016 Dehydration E86.0 ; Hypokalemia, gastrointestinal losses E87.6 and Vaginal candidiasis B37.3 [place] [address] 25383- 0508 08 Nov, 2016 Abnormal weight loss R63.4 ; Diarrhea, unspecified R19.7 ; Vomiting, unspecified R11.10 ; Generalized abdominal pain R10.84 and Decreased breath sounds R06.89 [place] [id number] [place] [address] 49544- 3562 Oct, Bipolar 1 disorder, depressed, moderate F31.32 and Anxiety F41.9 [place] [address] [address]- 5315 Sep, Bipolar 1 disorder, depressed, moderate F31.32 ; Anxiety F41.9 ; Borderline personality disorder F60.3 and Polysubstance (including opioids) dependence with physiol dependence F19.20 [place] [address] [id number]- 2546 Sep, Bipolar 1 disorder, depressed, moderate F31.32 and Anxiety F41.9 [place] [id number] [place] [address] 78528- 4193 Sep, Bipolar 1 disorder, depressed, moderate F31.32 [place] [id number] [place] [address] 61481- 2516 Sep, Bipolar 1 disorder, depressed, moderate F31.32 and Anxiety F41.9 [facility] [id number] [place] [address] 94970 -9975 Sep, Pain of toe of right foot M79.674 [place] [address] 30562- 7135 Sep, [facility] [place] [id number] [place] [address] 29534 -3160 Sep, Cellulitis of right ankle L03.115 [place] [id number] [place] [address] 59043- 0474 Sep, Bipolar 1 disorder, depressed, moderate F31.32 and Anxiety F41.9 [place] [id number] [place] [address] 95075- 2815 Sep, [place] [id number] [place] [address] 53279- 0796 Sep, [place] [id number] [place] [address] 45522- 1251 Sep, Bipolar 1 disorder, depressed, moderate F31.32 and Anxiety F41.9 [place] [id number] [place] [address] 42716- 3821 Sep, Accidental spider bite T63.301A [place] [id number] [place] [address] 58000- 5605 Aug, Bipolar 1 disorder, depressed, moderate F31.32 ; Anxiety F41.9 ; Borderline personality disorder F60.3 and Polysubstance (including opioids) dependence with physiol dependence F19.20 [facility] [address] 32398- 6905 Aug, [place] [address] 00698- 5298 Aug, Bipolar 1 disorder, depressed, moderate F31.32 and Anxiety F41.9 [place] [address] 09461- 0136 Aug, Pre-diabetes R73.03 ; Acute seasonal allergic rhinitis due to pollen J30.1 ; Hypercholesteremia E78.00 and Nausea R11.0 [place] [address] 35775- 4541 Aug, [place] [address] 08903- 9442 Aug, Bipolar 1 disorder, depressed, moderate F31.32 and Anxiety F41.9 [place] [address] 05696- 3525 08 Aug, 2016 [place] [address] 26094- 1239 Aug, [place] [address] 38380- 1936 Aug, [facility] [address] 44658- 6798 Aug, Bipolar 1 disorder, depressed, moderate F31.32 and Anxiety F41.9 [facility] [address] 25166- 9305 Aug, [facility] [address] 53610 -1819 Aug, Insect bite, initial encounter W57.XXXA and Cellulitis of left lower leg L03.116 [place] [address] 80410- 9297 Aug, Bipolar 1 disorder, depressed, moderate F31.32 and Borderline personality disorder F60.3 [place] [id number] [place] [address] 32410- 0686 July, [place] [id number] [place] [address] 04681- 3801 July, [place] [address] 37326- 8348 July, Encounter for routine adult health examination with abnormal findings Z00.01 ; History of esophageal cancer Z85.01 ; Bipolar 1 disorder, depressed, moderate F31.32 ; Anxiety F41.9 ; Acquired hypothyroidism E03.9 ; Essential hypertension I10 ; Gastroesophageal reflux disease with esophagitis K21.0 and Encounter for immunization Z23 [place] [id number] [place] [address] 48102- 4316 July, Bipolar 1 disorder, depressed, moderate F31.32 and Anxiety F41.9 [place] [id number] [place] [address] 49109- 5521 July, [place] [address] 25301- 9620 July, Bipolar 1 disorder, depressed, moderate F31.32 and Anxiety F41.9 [place] [id number] [place] [address] 27213- 1564 July, Bipolar 1 disorder, depressed, moderate F31.32 [place] [id number] [place] [address] 38881- 2631 July, Bipolar 1 disorder, depressed, moderate F31.32 and Anxiety F41.9 [place] [address] 55161- 5479 Jun, Bipolar 1 disorder, depressed, moderate F31.32 [place] [id number] [place] [address] 64128- 3922 Jun, Bipolar 1 disorder, depressed, moderate F31.32 and Borderline personality disorder F60.3 [facility] [address] [place] [address] 96323- 0795 Jun, Bipolar 1 disorder, depressed, moderate F31.32 [facility] [id number] [place] [address]- 7036 Jun, Bipolar 1 disorder, depressed, moderate F31.32 [facility] [address] [place] [address]- 5341 May, Bipolar 1 disorder, depressed, moderate F31.32 and Anxiety F41.9 [facility] [id number] [place] [address] 299125- 7048 May, Bipolar 1 disorder, depressed, moderate F31.32 and Anxiety F41.9 [facility] [id number] [place] [address] 47635- 0390 May, Bipolar 1 disorder, depressed, moderate F31.32 and Anxiety F41.9 [facility] [id number] [place] [address] 57320- 4140 May, Bipolar 1 disorder, depressed, moderate F31.32 and Borderline personality disorder F60.3 [place] [id number] [place] [address] 54933- 6840 14 May, 2016 [facility] [id number] [place] [address] 73130- 4373 May, Bipolar 1 disorder, depressed, moderate F31.32 and Anxiety F41.9 [facility] [id number] [place] [address] 99603- 9023 May, Bipolar 1 disorder, depressed, moderate F31.32 and Anxiety F41.9 [facility] [id number] [place] [address] 52412- 4951 06 May, 2016 [facility] [id number] [place] [address] 11737- 6179 May, Bipolar 1 disorder, depressed, moderate F31.32 [place] [address] [place] [address] 37197- 0815 May, Bipolar 1 disorder, depressed, moderate F31.32 and Generalized anxiety disorder F41.1 [place] [id number] [place] [address] 64296- 9673 28 Apr, 2016 Bipolar 1 disorder, depressed, moderate F31.32 and Anxiety F41.9 [place] [address] [place] [address] 84335- 6769 Apr, [place] [id number] [place] [address] 71940- 2297 Apr, Bipolar 1 disorder, depressed, moderate F31.32 and Anxiety F41.9 [place] [id number] [place] [address] 14934- 3241 09 Apr, 2016 Bipolar 1 disorder, depressed, moderate F31.32 and Anxiety F41.9 [place] [id number] [place] [address] 41061- 2887 Apr, Bipolar affective disorder, depressed, severe F31.4 and Generalized anxiety disorder F41.1 [place] [id number] [place] [address] 10014- 6344 Mar, Bipolar 1 disorder, depressed, moderate F31.32 and Anxiety F41.9 [place] [id number] [place] [address] 42152- 2809 Mar, Bipolar 1 disorder, depressed, moderate F31.32 and Anxiety F41.9 [place] [id number] [place] [address] 93546- 2608 Mar, Bipolar 1 disorder, mixed, moderate F31.62 [place] [id number] [place] [address] 85541- 1892 Mar, [place] [id number] [place] [address] 47133- 8324 Mar, Bipolar 1 disorder, mixed, moderate F31.62 ; Generalized anxiety disorder F41.1 and 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.899 [facility] [address] [place] [address] 21849- 1033 Feb, Bipolar 1 disorder, depressed, moderate F31.32 and Anxiety F41.9 [facility] [address] [place] [address] 58478- 7846 Feb, Bipolar 1 disorder, depressed, moderate F31.32 and 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.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 [facility] [id number] [place] [address] 80825- 0742 Feb, [facility] [id number] [place] [address] 25901- 3944 Feb, Bipolar 1 disorder, depressed, moderate F31.32 and Anxiety F41.9 [facility] [id number] [place] [address] 54640- 0849 Feb, Bipolar 1 disorder, depressed, moderate F31.32 and Other skilled nursing (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 Z79.899 [facility] [id number] [place] [address] 33955- 6229 Feb, Bipolar 1 disorder, depressed, moderate F31.32 and Anxiety F41.9 [facility] [address] [address]- 5613 Dec, Bipolar 1 disorder, depressed, moderate F31.32 and Anxiety F41.9 [facility] [address] [address]- 4176 Oct, [facility] [address] [address]- 3181 Oct, [facility] [id number] [place] [address] 455950- 0365 May, [facility] [id number], [place] [address]- 9421 May, [facility] [id number] [place] [address]- 4244 Mar, [facility] [address] [facility] [id number] [place] [address]- 4281 Mar, IMMUNIZATIONS No Known Immunizations SOCIAL HISTORY Never Assessed REASON FOR VISIT Follow-up Depression PLAN OF CARE Activity Details Follow Up 2 Weeks Reason: Follow-up VITAL SIGNS MEDICATIONS Unknown Medications RESULTS No Results PROCEDURES Procedure Date Ordered Result Body Site [facility] VISIT MENTAL HEALTH ESTAB PT Apr 17, 2017 Psychotherapy, patient &/family, 30 minutes, established patient Apr 17, 2017 INSTRUCTIONS MEDICATIONS ADMINISTERED No Known Medications [...] Cancer Head and Neck 2004 Hospitalization History [facility] Psychiatric Admission 2015
--- OUTSIDE RECORDS SUMMARY | 2017-09-29 19:01 | XMS REPORT ---
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 Name Role Phone MISHEL ZHAO Unavailable PROBLEMS Type Condition ICD9-CM Code OBV12-WH Code Onset Dates Condition Status SNOMED Code Problem Gastroesophageal reflux disease with esophagitis K21.0 Active 069183226 Problem Polysubstance (including opioids) dependence with physiol dependence F19.20 Active 50057322 Problem History of esophageal cancer Z85.01 Active 589852371 Problem Seasonal allergies J30.2 Active 576981813 Problem Pre-diabetes R73.03 Active 258883178 Problem GERD (gastroesophageal reflux disease) K21.9 Active 662097409 Problem Borderline personality disorder F60.3 Active 95226273 Problem Pure hypercholesterolemia E78.00 Active 980972812 Problem Nephrolithiasis N20.0 Active 80091250 Problem STATE HEP A (ADULT) DX V05.3 Active 052274836 Problem Bipolar 1 disorder, depressed, moderate F31.32 Active 16662528 Problem Anxiety F41.9 Active 76558671 Problem Vitamin D insufficiency E55.9 Active 499689367 Problem Essential hypertension I10 Active 83991441 Problem Elevated serum creatinine R79.89 Active 245668042 Problem Acquired hypothyroidism E03.9 Active 744957119 ALLERGIES Substance Reaction Event Type Date Status Adhesive Tape Rash Drug Allergy Mar, Active Zolpidem Tartrate Client OVERDOSE Drug Allergy Mar, Active Penicillamine Hives Drug Allergy Mar, Active Codeine Sulfate Nausea and Vomitting Drug Allergy Mar, Active ENCOUNTERS Encounter Location Date Diagnosis [facility] [address] [facility] [id number] [address] Sep, [facility] [address] [facility] [id number] [address] Sep, [facility] [address] [id number] [place] [address] 07923- 0826 Sep, [facility] [address] [address]1 Aug, [facility] [address] [place] [id number] [place] [address] 49183- 2772 Aug, Bipolar 1 disorder, depressed, moderate F31.32 [place] [address] 61046- 4122 Aug, Bipolar 1 disorder, depressed, moderate F31.32 [place] [address] 41762- 5701 July, Candidal dermatitis B37.2 [place] [address] 65725- 4607 July, Acquired hypothyroidism E03.9 [place] [address] 72487- 7840 July, Bipolar 1 disorder, depressed, moderate F31.32 [facility] [id number] [place] [address] 40903 -9724 July, Seasonal allergies J30.2 [place] [address] [place] [id number] [place] [address] 85838- 1644 July, Bipolar 1 disorder, depressed, moderate F31.32 [place] [address] [place] [id number] [place] [address] 17016- 5124 Jun, Pre-diabetes R73.03 [place] [address] [place] [id number] [place] [address] 60814- 4822 Jun, Bipolar 1 disorder, depressed, moderate F31.32 ; Anxiety F41.9 ; Borderline personality disorder F60.3 ; Polysubstance (including opioids ) dependence with physiol dependence F19.20 and Other specified abnormal findings of blood chemistry R79.89 [place] [address] 22807- 6219 Jun, Bipolar 1 disorder, depressed, moderate F31.32 [place] [address] [place] [id number] [place] [address] 62825- 6251 May, Bipolar 1 disorder, depressed, moderate F31.32 [place] [address] [place] [id number] [place] [address] 74935- 2524 May, Bipolar 1 disorder, depressed, moderate F31.32 [place] [address] [place] [id number] [place] [address] 34139- 0005 May, [place] [address] [place] [id number] [place] [address] 93073- 8612 May, [place] [address] 87851- 9679 May, Bipolar 1 disorder, depressed, moderate F31.32 [place] [address] [place] [id number] [place] [address] 90757- 2980 May, Bipolar 1 disorder, depressed, moderate F31.32 [place] [address] [place] [id number] [place] [address] 71067- 3617 May, Other specified abnormal findings of blood chemistry R79.89 [place] [address] [place] [id number] [place] [address] 12391- 6986 May, Essential hypertension I10 ; Acquired hypothyroidism E03.9 ; Gastroesophageal reflux disease with esophagitis K21.0 ; Hair loss L65.9 ; Hypokalemia, gastrointestinal losses E87.6 ; Pre-diabetes R73.03 ; Candidal dermatitis B37.2 and Pure hypercholesterolemia E78.00 [place] [address] [id number] [place] [address] 86021- 4693 Apr, Bipolar 1 disorder, depressed, moderate F31.32 [place] [id number] [place] [address] Apr, Bipolar 1 disorder, depressed, moderate F31.32 [place] [address] [place] [id number] [place] [address] 16545- 7446 Apr, Bipolar 1 disorder, depressed, moderate F31.32 and Anxiety F41.9 [facility] [address] 14105 -7208 Mar, Encounter for immunization Z23 ; Fall, initial encounter W19.XXXA ; Rib pain on left side R07.81 and Left hip pain M25.552 [place] [address] 20655- 7631 Mar, Bipolar 1 disorder, depressed, moderate F31.32 and Anxiety F41.9 [place] [address] 81809- 2123 Mar, Bipolar 1 disorder, depressed, moderate F31.32 ; Anxiety F41.9 ; Borderline personality disorder F60.3 and Polysubstance (including opioids) dependence with physiol dependence F19.20 [place] [address] 31754- 6537 Mar, Bipolar 1 disorder, depressed, moderate F31.32 and Anxiety F41.9 [facility] [address] 91092 -6394 Feb, Irritant contact dermatitis, unspecified trigger L24.9 [place] [address] 99656- 9243 Feb, [place] [address] 90993- 5393 Feb, [place] [address] 72606- 8308 Feb, Bipolar 1 disorder, depressed, moderate F31.32 and Anxiety F41.9 [place] [address] 07154- 9973 Feb, Acute non-recurrent maxillary sinusitis J01.00 [place] [address] 50549- 7481 Feb, [place] [address] [id number] [place] [address] 03910- 9956 Feb, Bipolar 1 disorder, depressed, moderate F31.32 [facility] [id number] [place] [address] 90193- 3116 Jan, [facility] [address] 40296- 4474 Jan, Bipolar 1 disorder, depressed, moderate F31.32 ; Anxiety F41.9 ; Borderline personality disorder F60.3 and Polysubstance (including opioids) dependence with physiol dependence F19.20 [facility] [address] 23947- 8263 Jan, Bipolar 1 disorder, depressed, moderate F31.32 and Anxiety F41.9 [facility] [address] 28965- 9824 Jan, Bipolar 1 disorder, depressed, moderate F31.32 ; Anxiety F41.9 ; Borderline personality disorder F60.3 and Polysubstance (including opioids) dependence with physiol dependence F19.20 [facility] [address] 38287- 1169 Jan, Bipolar 1 disorder, depressed, moderate F31.32 and Anxiety F41.9 [facility] [address] [place] [id number] [place] [address] 80606- 8986 Dec, Hypokalemia, gastrointestinal losses E87.6 ; GERD ( gastroesophageal reflux disease) K21.9 and Bipolar 1 disorder, depressed, moderate F31.32 [facility] [address] [id number] [place] [address] 58509- 5162 Dec, Bipolar 1 disorder, depressed, moderate F31.32 and Anxiety F41.9 [facility] [id number] [place] [address] 42337 -7839 Dec, [facility] [address] 97940- 0591 Dec, [facility] [address] [id number] [place] [address] 19741 -8017 Dec, Fall (on) (from) other stairs and steps, initial encounter W10.8XXA ; Laceration of left lower extremity, initial encounter S81.812A ; Contusion of right knee, initial encounter S80.01XA and Contusion of right shoulder, initial encounter S40.011A [place] [address] 94582- 8763 Dec, Bipolar 1 disorder, depressed, moderate F31.32 ; Anxiety F41.9 ; Borderline personality disorder F60.3 and Polysubstance (including opioids) dependence with physiol dependence F19.[address] 40927- 8873 Dec, Bipolar 1 disorder, depressed, moderate F31.32 and Anxiety F41.[address] 84776- 4327 Dec, [address] 81763- 5741 Dec, Hospital discharge follow-up Z09 ; Nephrolithiasis N20.0 ; Essential hypertension I10 ; Gastroesophageal reflux disease with esophagitis K21.0 and Anxiety F41.9 [place] [address] 24850- 3211 Nov, [facility] [address] 22791 -5491 Nov, Dysuria R30.0 and Acute cystitis with hematuria N30.01 [facility] [address] 69375 -0340 Nov, [place] [address] 07650- 5506 Nov, [place] [address] 09873- 3103 Nov, Gastroesophageal reflux disease with esophagitis K21.0 ; Hypercholesteremia E78.00 and Acquired hypothyroidism E03.9 [facility] [address] 18 Nov, 2016 Left wrist pain M25.532 and Contusion of left wrist, initial encounter S60.212A [address] 451 18 Nov, 2016 Bipolar 1 disorder, depressed, moderate F31.32 ; Anxiety F41.9 ; Borderline personality disorder F60.3 and Polysubstance (including opioids) dependence with physiol dependence F19.20 [facility] [address] [place] [address] 15 Nov, 2016 Abdominal pain R10.9 and GERD (gastroesophageal reflux disease) K21.9 [place] [address] 66191- 654 12 Nov, 2016 Hypokalemia, gastrointestinal losses E87.6 [place] [address] 85197 0807 11 Nov, 2016 Dehydration E86.0 ; Hypokalemia, gastrointestinal losses E87.6 and Vaginal candidiasis B37.3 [place] [address] 16918- 3285 08 Nov, 2016 Abnormal weight loss R63.4 ; Diarrhea, unspecified R19.7 ; Vomiting, unspecified R11.10 ; Generalized abdominal pain R10.84 and Decreased breath sounds R06.89 [place] [address] 88149- 2279 Oct, Bipolar 1 disorder, depressed, moderate F31.32 and Anxiety F41.[address] 577 Sep, Bipolar 1 disorder, depressed, moderate F31.32 ; Anxiety F41.9 ; Borderline personality disorder F60.3 and Polysubstance (including opioids) dependence with physiol dependence F19.20 [place] [address] [place] [address] 27342- 9262 Sep, Bipolar 1 disorder, depressed, moderate F31.32 and Anxiety F41.9 [place] [address] [id number] [place] [address] 71773- 5619 Sep, Bipolar 1 disorder, depressed, moderate F31.32 [place] [address] [place] [id number] [place] [address] 27507- 7929 Sep, Bipolar 1 disorder, depressed, moderate F31.32 and Anxiety F41.9 [facility] [id number] [place] [address] 99276 -5133 Sep, Pain of toe of right foot M79.674 [place] [address] [place] [id number] [place] [address] 68893- 4004 Sep, [facility] [address] [id number] [place] [address] 15780 -8025 Sep, Cellulitis of right ankle L03.115 [place] [address] [place] [id number] [place] [address] 96520- 3647 Sep, Bipolar 1 disorder, depressed, moderate F31.32 and Anxiety F41.9 [place] [address] [place] [id number] [place] [address] 86956- 3020 Sep, [place] [address] [id number] [place] [address] 73336- 0280 Sep, [place] [address] [id number] [place] [address] 43876- 3380 Sep, Bipolar 1 disorder, depressed, moderate F31.32 and Anxiety F41.9 [place] [address] [place] [id number] [place] [address] 00339- 4130 Sep, Accidental spider bite T63.301A [place] [address] [id number] [place] [address] 58882- 1476 Aug, Bipolar 1 disorder, depressed, moderate F31.32 ; Anxiety F41.9 ; Borderline personality disorder F60.3 and Polysubstance (including opioids) dependence with physiol dependence F19.20 [place] [address] 81237- 6942 Aug, [place] [address] 01506- 7168 Aug, Bipolar 1 disorder, depressed, moderate F31.32 and Anxiety F41.9 [place] [address] 27716- 2176 Aug, Pre-diabetes R73.03 ; Acute seasonal allergic rhinitis due to pollen J30.1 ; Hypercholesteremia E78.00 and Nausea R11.0 [place] [address] [place] [id number] [place] [address] 15125- 2280 Aug, [place] [address] 15684- 4784 Aug, Bipolar 1 disorder, depressed, moderate F31.32 and Anxiety F41.9 [facility] [address] 81324- 8397 Aug, [place] [address] 16935- 1130 Aug, [place] [address] [place] [id number] [place] [address] 60460- 3693 Aug, [facility] [address] 29342- 9056 Aug, Bipolar 1 disorder, depressed, moderate F31.32 and Anxiety F41.9 [place] [address] 63679- 6796 Aug, [facility] [id number] [place] [address] 27551 -0231 Aug, Insect bite, initial encounter W57.XXXA and Cellulitis of left lower leg L03.116 [place] [address] [place] [id number] [place] [address] 56342- 5719 Aug, Bipolar 1 disorder, depressed, moderate F31.32 and Borderline personality disorder F60.3 [place] [address] [id number] [place] [address] 72443- 2974 July, [place] [address] [place] [id number] [place] [address] 32367- 8096 July, [address] 90677- 7550 July, Encounter for routine adult health examination with abnormal findings Z00.01 ; History of esophageal cancer Z85.01 ; Bipolar 1 disorder, depressed, moderate F31.32 ; Anxiety F41.9 ; Acquired hypothyroidism E03.9 ; Essential hypertension I10 ; Gastroesophageal reflux disease with esophagitis K21.0 and Encounter for immunization Z23 [address] 34472- 9488 July, Bipolar 1 disorder, depressed, moderate F31.32 and Anxiety F41.9 [place] [id number] [place] [address] 72150- 8543 July, [address] 42453- 1512 July, Bipolar 1 disorder, depressed, moderate F31.32 and Anxiety F41.9 [place] [id number] [place] [address] 79590- 8243 July, Bipolar 1 disorder, depressed, moderate F31.32 [place] [address] [place] [id number] [place] [address] 82577- 4947 July, Bipolar 1 disorder, depressed, moderate F31.32 and Anxiety F41.9 [place] [address] [id number] [place] [address] 07714- 0421 Jun, Bipolar 1 disorder, depressed, moderate F31.32 [place] [address] [place] [id number] [place] [address] 05981- 0201 Jun, Bipolar 1 disorder, depressed, moderate F31.32 and Borderline personality disorder F60.3 [facility] [address] [place] [address] 71195- 7858 Jun, Bipolar 1 disorder, depressed, moderate F31.32 [facility] [address] [id number] [place] [address] 87531- 5213 Jun, Bipolar 1 disorder, depressed, moderate F31.32 [facility] [address] [place] [id number] [place] [address]- 2154 May, Bipolar 1 disorder, depressed, moderate F31.32 and Anxiety F41.9 [place] [address] [id number] [place] [address]- 2223 May, Bipolar 1 disorder, depressed, moderate F31.32 and Anxiety F41.9 [place] [address] [place] [id number] [place] [address] 03361- 4041 May, Bipolar 1 disorder, depressed, moderate F31.32 and Anxiety F41.9 [place] [address] [place] [id number] [place] [address] 37423- 4545 May, Bipolar 1 disorder, depressed, moderate F31.32 and Borderline personality disorder F60.3 [place] [address] [place] [address] 05980- 1605 14 May, 2016 [place] [address] [place] [id number] [place] [address] 79288- 2219 May, Bipolar 1 disorder, depressed, moderate F31.32 and Anxiety F41.9 [facility] [address] [place] [address] 38130- 8099 09 May, 2016 Bipolar 1 disorder, depressed, moderate F31.32 and Anxiety F41.9 [facility] [address] [place] [address] 82780- 3349 06 May, 2016 [facility] [address] [place] [id number] [place] [address] 89901- 1538 May, Bipolar 1 disorder, depressed, moderate F31.32 [facility] [address] [id number] [place] [address] 95739- 3236 May, Bipolar 1 disorder, depressed, moderate F31.32 and Generalized anxiety disorder F41.1 [facility] [address] [id number] [place] [address] 38373- 7972 Apr, Bipolar 1 disorder, depressed, moderate F31.32 and Anxiety F41.9 [place] [address] [place] [id number] [place] [address] 18102- 4115 Apr, [place] [address] [id number] [place] [address] 75103- 8720 Apr, Bipolar 1 disorder, depressed, moderate F31.32 and Anxiety F41.9 [place] [address] [id number] [place] [address] 54590- 1005 Apr, Bipolar 1 disorder, depressed, moderate F31.32 and Anxiety F41.9 [place] [address] [id number] [place] [address] 53791- 9981 Apr, Bipolar affective disorder, depressed, severe F31.4 and Generalized anxiety disorder F41.1 [place] [address] [place] [id number] [place] [address] 63909- 3743 Mar, Bipolar 1 disorder, depressed, moderate F31.32 and Anxiety F41.9 [place] [address] [id number] [place] [address] 45840- 7073 Mar, Bipolar 1 disorder, depressed, moderate F31.32 and Anxiety F41.9 [place] [address] [id number] [place] [address] 90395- 6954 Mar, Bipolar 1 disorder, mixed, moderate F31.62 [facility] [id number] [place] [address] 66392- 7367 Mar, [facility] [id number] [place] [address] 06472- 5467 Mar, Bipolar 1 disorder, mixed, moderate F31.62 ; Generalized anxiety disorder F41.1 and 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 [facility] [id number] [place] [address] 68471- 7407 Feb, Bipolar 1 disorder, depressed, moderate F31.32 and Anxiety F41.9 [facility] [id number] [place] [address] 65734- 2576 Feb, Bipolar 1 disorder, depressed, moderate F31.32 and Other correction (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 Z79.899 [facility] [id number] [place] [address] 21788- 5383 Feb, [facility] [id number] [place] [address] 54243- 9986 Feb, Bipolar 1 disorder, depressed, moderate F31.32 and Anxiety F41.9 [facility] [address] [id number] [place] [address] 04813- 2172 Feb, Bipolar 1 disorder, depressed, moderate F31.32 and 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 [facility] [id number] [place] [address] 38956- 4926 Feb, Bipolar 1 disorder, depressed, moderate F31.32 and Anxiety F41.9 [facility] [id number] [place] [address] 73096- 2011 Dec, Bipolar 1 disorder, depressed, moderate F31.32 and Anxiety F41.9 [facility] [id number] [place] [address] 58877- 2491 Oct, [facility] [id number] [place] [address] 440006- 0716 Oct, [facility] [id number] [place] [address] 655500- 7916 May, [facility] [id number] [place] [address] 37097- 2009 May, [facility] [address] [facility] [id number] [place] [address]- 0894 Mar, [facility] [address] [facility] [id number] [address]- [address]86 Mar, IMMUNIZATIONS Vaccine Route Administration Date Status TORADOL (IM) 60 MG/2ML (UP TO 15 MG) IM Intramuscular Mar 29, 2017 Administered TDAP (BOOSTRIX) IM Intramuscular Mar 29, 2017 Administered SOCIAL HISTORY Never Assessed REASON FOR VISIT Left rib/thigh pain Right ankle pain fell 30 min ago JStrasserRN PLAN OF CARE Activity Details Follow Up prn Reason: VITAL SIGNS Height 67.0 in 2017-03-29 Weight 169.8 lbs 2017-03-29 Temperature 98.0 degrees Fahrenheit 2017-03-29 Heart Rate 80 bpm 2017-03-29 Respiratory Rate 20 2017-03-29 BMI 26.59 kg/m2 2017-03-29 Blood pressure systolic 126 mmHg 2017-03-29 Blood pressure diastolic 90 mmHg 2017-03-29 MEDICATIONS Medication Instructions Dosage Frequency Start Date End Date Duration Status HydrOXYzine HCl 50 mg 1 TABLET 2 TIMES A DAY NEEDED ORALLY 30 DAYS Active Pyridium 200 MG Orally Three times a day 1 tablet after meals 8h Not-Taking Lamotrigine 200 mg Orally Once a day 1 tablet 24h Active Latuda 40 mg Orally Once a day at supper 1 tablet with food Jan, Active Ondansetron 8 MG Orally every 8 hrs 1 tablet on the tongue and allow to dissolve 8h Nov, 07 days Active Metformin HCl 500 mg Orally Twice a day 1 tablet 12h Aug, Active Levothyroxine Sodium 50 MCG Orally Once a day 1 tablet on an empty stomach in the morning 24h 90 days Active Diflucan 150 MG Orally one time 1 tablet Nov, 1 dose Not- Taking Amlodipine Besylate 10 MG Orally Once a day 1 tablet 24h Active Omeprazole 40 MG Orally Once a day 1 capsule 24h 90 days Not-Taking Protonix 40 MG Orally Once a day 1 tablet 24h 15 Nov, 2016 30 day(s) Active Gabapentin 300 MG Orally twice a day as needed for anxiety 1 capsule Jan, Active Lexapro 20 mg Orally Once a day 1 tablet 24h Mar, 30 day(s) Active Atorvastatin Calcium 20 mg Orally Once a day 1 tablet 24h 07 Aug, 2016 90 days Active Triamcinolone Acetonide 0.1 % Externally Twice a day 1 application to affected area 12h 28 Feb, 2017 5 days Active Potassium Chloride ER 10 MEQ Orally Once a day 1 tablet with food 24h 11 Nov, 2016 90 days Active RESULTS Name Result Date Reference Range Xray : Hip, Left 2 views (IN HOUSE) 2017-03-29 Xray : Rib Series, Left (IN HOUSE) 2017-03-29 PROCEDURES Procedure Date Ordered Result Body Site TDAP (BOOSTRIX) Mar 29, 2017 SINGLE IMMUNIZATION ADMIN Mar 29, 2017 [facility] VISIT ESTABLISHED PATIENT Mar 29, 2017 X-RAY EXAM HIP UNI 2-3 VIEWS Mar 29, 2017 X-RAY EXAM OF RIBS Mar 29, 2017 THER/PROPH/DIAG INJ, SC/IM Mar 29, 2017 TORADOL (IM) 60 MG/2ML (UP TO 15 MG) Mar 29, 2017 INSTRUCTIONS MEDICATIONS ADMINISTERED No Known Medications [...] Cancer Head and Neck 2004 Hospitalization History [facility] Psychiatric Admission 2015
== END 2017-09-29 13:45 | disposition home or self-care (01) ==
LOC: EDUNIT# 12:25 → ER 12:26
DX: T50.8X5A Adverse effect of diagnostic agents, initial encounter (principal); E78.00 Pure hypercholesterolemia, unspecified; I10 Essential (primary) hypertension; K21.9 Gastro-esophageal reflux disease without esophagitis; E11.9 Type 2 diabetes mellitus without complications; F41.9 Anxiety disorder, unspecified; F31.9 Bipolar disorder, unspecified; G43.909 Migraine, unspecified, not intractable, without status migrainosus; Z87.448 Personal history of other diseases of urinary system; Z92.21 Personal history of antineoplastic chemotherapy; Z85.819 Personal history of malignant neoplasm of unspecified site of lip, oral cavity, and pharynx; Z87.442 Personal history of urinary calculi; Z87.19 Personal history of other diseases of the digestive system; Z82.49 Family history of ischemic heart disease and other diseases of the circulatory system; Z80.0 Family history of malignant neoplasm of digestive organs; Z88.5 Allergy status to narcotic agent; Z91.041 Radiographic dye allergy status; Z91.048 Other nonmedicinal substance allergy status; Z88.0 Allergy status to penicillin; Z91.040 Latex allergy status; Z77.22 Contact with and (suspected) exposure to environmental tobacco smoke (acute) (chronic); Z90.89 Acquired absence of other organs; Z90.49 Acquired absence of other specified parts of digestive tract; Z90.710 Acquired absence of both cervix and uterus; Z98.51 Tubal ligation status; Z86.718 Personal history of other venous thrombosis and embolism; Z01.89 Encounter for other specified special examinations; Z85.89 Personal history of malignant neoplasm of other organs and systems; R22.0 Localized swelling, mass and lump, head
CPT/HCPCS: 78306; 96374; 96375

== ENCOUNTER → 2017-09-29 | Outpatient (CLI) | payer MEDICARE ==
[~2017-09-29] MED LIST changes: +CLON0.5T13 PO; -CLON0.5T3 PO; +ESCI20TA45 PO; +GABA-488 PO; +LURA40TA3 PO
[2017-09-29] MEDS: CATHETER FLUSH 10 ML SYR IV PRN ×2 (11:12→11:45)
[2017-09-29] MEDS: IOHEXOL 350 MG/ML 100 ML (OMNIPAQUE 350) VIAL IV ONE ×2 (11:22→11:45)
[2017-09-29] MEDS: NS 250 ML (IVPB) BAG IV ONE ×2 (11:22→11:45)
--- NOTE | 2017-09-29 16:23 | Diagnostic Imaging Report ---
INDICATION: Head and neck cancer. Whole-body bone scan performed with IV injection of 26.0 mCi of technetium 99m MDP with delayed imaging. There is physiologic uptake of the tracer throughout the skeleton. There is some mild increased uptake over the lumbar spine on the right side laterally, probably due to degenerative change. There is no convincing evidence of osseous metastatic disease. 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 No convincing evidence of osseous metastatic disease. Dictated by: Dictated on workstation # [id number]
== END ==
LOC: CARD 10:59
PROVIDERS: ATTEND Internal Medicine Hematology & Oncology
DX: Z01.89 Encounter for other specified special examinations (principal); Z85.89 Personal history of malignant neoplasm of other organs and systems; R22.0 Localized swelling, mass and lump, head
CPT/HCPCS: 78306

== ENCOUNTER → 2017-10-04 | Outpatient (CLI) | payer MEDICARE ==
--- NOTE | 2017-10-04 13:40 | Diagnostic Imaging Report ---
INDICATION: Lymph node cancer. CT sinus study performed with axial slices and coronal reconstructions obtained without contrast. There are no overt bony abnormalities. The frontal sinuses are clear. The ethmoid air cells appear clear. The sphenoid sinuses are clear. Maxillary sinuses are clear except for small retention cyst or polyp in the left maxillary sinus inferiorly and anteriorly, measuring about 8 mm. Orbital contents appear unremarkable. IMPRESSION: Small retention cyst or polyp in left maxillary sinus inferiorly. Otherwise negative CT sinus study. Dictated by: Dictated on workstation # [id number]
--- NOTE | 2017-10-04 13:54 | Diagnostic Imaging Report ---
INDICATION: Prior left neck surgery and lymph node removal. Axial imaging through the neck and chest was performed without contrast. Contrast could not be administered due to iodine allergy. Correlation is made with prior CT from 08/07/2015. CT neck: FINDINGS: The posterior nasopharynx is unremarkable. Oropharynx is unremarkable. Parapharyngeal fat planes are preserved. Epiglottis is unremarkable. Larynx and thyroid are grossly unremarkable. There are multiple surgical clips in the left neck. No definite cervical lymphadenopathy or mass is seen. No fluid collection is identified. The parotid glands are symmetric. Submandibular glands are not well seen. IMPRESSION: There are postsurgical changes in the left neck. No residual or recurrent mass or lymphadenopathy is identified. CT chest: FINDINGS: No axillary lymphadenopathy is detected. Hilar and mediastinal evaluation is limited without intravenous contrast but no gross abnormality is seen. No pericardial fluid is identified. There is no pleural effusion. There are coronary arterial calcifications present. There is some subsegmental atelectasis in the right lower lobe. Otherwise, the lungs are clear. No nodule or mass is seen. The central airways are patent. Upper abdomen does show a 4 mm nonobstructing calculus in the right kidney lower pole. IMPRESSION: 1. Stable noncontrast CT of the chest when compared with exam from 08/07/2015. No definite thoracic lymphadenopathy is identified. There is chronic elevation of right hemidiaphragm with right basilar subsegmental atelectasis. 2. 4 mm nonobstructing right renal calculus. Dictated by: Dictated on workstation # [id number]
== END ==
LOC: RAD 12:51
PROVIDERS: ATTEND Internal Medicine Hematology & Oncology
DX: R22.0 Localized swelling, mass and lump, head (principal); J98.11 Atelectasis; N20.0 Calculus of kidney; J34.89 Other specified disorders of nose and nasal sinuses; Z85.89 Personal history of malignant neoplasm of other organs and systems
CPT/HCPCS: 70486; 70490; 71250

== ENCOUNTER 2017-10-05 13:42 | Outpatient (RCR) | payer MEDICARE ==
[2017-09-28 09:46] LABS: BASOPHILS % (AUTO) 0 % (0-10); EOSINOPHILS % (AUTO) 1 % (0-10); HEMATOCRIT 42 % (35-52); HEMOGLOBIN 14.2 G/DL (11.5-16.0); LYMPHOCYTES % (AUTO) 21 % (12-44); MEAN CORPUSCULAR HEMOGLOBIN 29 PG (25-34); MEAN CORPUSCULAR HGB CONC 34 G/DL (32-36); MEAN CORPUSCULAR VOLUME 86 FL (80-99); MEAN PLATELET VOLUME 9.4 FL (7.4-10.4); MONOCYTES # (AUTO) 0.4 X 10^3 (0.0-1.0); MONOCYTES % (AUTO) 9 % (0-12); NEUTROPHILS # (AUTO) 3.2 X 10^3 (1.8-7.8); NEUTROPHILS % (AUTO) 69 % (42-75); PLATELET COUNT 238 10^3/uL (130-400); RED BLOOD COUNT 4.86 10^6/uL (4.35-5.85); RED CELL DISTRIBUTION WIDTH 14.9 % (10.0-14.5); WHITE BLOOD COUNT 4.6 10^3/uL (4.3-11.0)
[2017-09-28 10:06] LABS: ALBUMIN 4.4 GM/DL (3.2-4.5); BILIRUBIN,TOTAL 0.7 MG/DL (0.1-1.0); CALCIUM 9.8 MG/DL (8.5-10.1); CREATININE SERUM 1.05 MG/DL (0.60-1.30); POTASSIUM 4.6 MMOL/L (3.6-5.0)
[~2017-10-05 13:42] MED LIST changes: -AMLO10TA2 PO; +AMLO10TA6 PO; +HYDR-4226 PO; +METF-397 PO; -METF500T5 PO
[2017-11-25] MEDS ORDERED: HYDR-4226 PO (14:19)
== END 2017-12-27 | disposition home or self-care (01) ==
LOC: ONC 13:42
PROVIDERS: ATTEND Internal Medicine Hematology & Oncology
DX: Z08 Encounter for follow-up examination after completed treatment for malignant neoplasm (principal); Z85.01 Personal history of malignant neoplasm of esophagus; M89.9 Disorder of bone, unspecified; K22.2 Esophageal obstruction; I10 Essential (primary) hypertension; E07.9 Disorder of thyroid, unspecified; K21.9 Gastro-esophageal reflux disease without esophagitis; Z86.718 Personal history of other venous thrombosis and embolism; Z79.899 Other long term (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
CPT/HCPCS: 80053; 84443; 85025; 99213

== ENCOUNTER → 2017-10-06 | Outpatient (CLI) | payer MEDICARE ==
[~2017-10-06] MED LIST changes: +AMLO10TA2 PO; -AMLO10TA6 PO; -HYDR-4226 PO; -METF-397 PO; +METF500T5 PO
--- NOTE | 2017-10-06 10:11 | Diagnostic Imaging Report ---
INDICATION: Recurrent seizure, prior history of esophageal cancer. MRI brain obtained without IV contrast and compared to 07/10/2014. Diffusion-weighted images demonstrate no areas of diffusion signal abnormality to suggest acute ischemic change. There is no subdural or epidural collection. There is a focal cystic area in the left deep frontal white matter measuring about 8 mm in diameter, similar to the prior study. There is no other focal parenchymal abnormality in the brain. Visualized portions of the sinuses and orbits are normal. Temporal lobes are symmetric. IMPRESSION: Stable cystic lesion in left frontal deep white matter. No acute stroke, hemorrhage, or mass effect. Dictated by: Dictated on workstation # [id number]
== END ==
LOC: RAD 09:06
PROVIDERS: ATTEND Otolaryngology Otolaryngology/Facial Plastic Surgery
DX: G40.909 Epilepsy, unspecified, not intractable, without status epilepticus (principal); G93.0 Cerebral cysts; Z85.01 Personal history of malignant neoplasm of esophagus
CPT/HCPCS: 70551

== ENCOUNTER 2017-11-25 12:19 | Emergency (ER) | payer MEDICARE ==
[~2017-11-25] VITALS: Ht 167.6 cm; Wt 81.6 kg
[~2017-11-25 12:19] MED LIST changes: -AMLO10TA2 PO; +AMLO10TA6 PO; +HYDR-4226 PO; +METF-397 PO; -METF500T5 PO
--- OUTSIDE RECORDS SUMMARY | 2017-11-25 12:26 | XMS REPORT ---
Author Author MICHELLE DARCI [facility] Address [address] [place] [address] Care Team Providers Care Brick Grader Name Role Phone MICHELLEDARCI Unavailable PROBLEMS Type Condition ICD9-CM Code [id number] Code Onset Dates Condition Status SNOMED Code Problem Gastroesophageal reflux disease with esophagitis K21.0 Active 317838089 Problem Polysubstance (including opioids) dependence with physiol dependence F19.20 Active 42720812 Problem History of esophageal cancer Z85.01 Active 441526094 Problem Seasonal allergies J30.2 Active 810502310 Problem Pre-diabetes R73.03 Active 075546118 Problem GERD (gastroesophageal reflux disease) K21.9 Active 387851052 Problem Borderline personality disorder F60.3 Active 83804756 Problem Pure hypercholesterolemia E78.00 Active 059158310 Problem Nephrolithiasis N20.0 Active 55683322 Problem STATE HEP A (ADULT) DX V05.3 Active 246755794 Problem Bipolar 1 disorder, depressed, moderate F31.32 Active 03327994 Problem Anxiety F41.9 Active 82787005 Problem Vitamin D insufficiency E55.9 Active 452735211 Problem Essential hypertension I10 Active 75652624 Problem Elevated serum creatinine R79.89 Active 901790239 Problem Acquired hypothyroidism E03.9 Active 922137385 ALLERGIES Substance Reaction Event Type Date Status Adhesive Tape Rash Drug Allergy Oct, Active Zolpidem Tartrate Client OVERDOSE Drug Allergy Oct, Active Penicillamine Hives Drug Allergy Oct, Active Codeine Sulfate Nausea and Vomitting Drug Allergy Oct, Active ENCOUNTERS Encounter Location Date Diagnosis [facility] [address] [facility] [id number] [address] Jan, [facility] [address] [id number] [address] Dec, [facility] [id number] [place] [address] 05569- 1207 Dec, [facility] [id number] [place] [address] 30442- 5226 Dec, [facility] [id number] [place] [address] 48293- 5199 Nov, Bipolar 1 disorder, depressed, moderate F31.32 and Anxiety F41.9 [facility] [id number] [place] [address] 43796- 1222 Nov, Bipolar 1 disorder, depressed, moderate F31.32 [place] [address] 12907- 3586 Nov, [place] [address] 52319- 6634 Nov, Bipolar 1 disorder, depressed, moderate F31.32 and Anxiety F41.9 [place] [id number] [place] [address] 73420- 4955 Oct, Bipolar 1 disorder, depressed, moderate F31.32 ; Anxiety F41.9 ; Borderline personality disorder F60.3 ; Polysubstance (including opioids ) dependence with physiol dependence F19.20 and 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 [place] [id number] [place] [address] 87957- 9351 Oct, Bipolar 1 disorder, depressed, moderate F31.32 [facility] [id number] [place] [address] [id number] Sep, Encounter for dental examination Z01.20 [facility] [id number] [place] [address] 49934- 1580 Sep, Acute oral pain K13.79 [facility] [id number] [place] [address] 30146- 0900 Sep, Bipolar 1 disorder, depressed, moderate F31.32 [facility] [id number] [place] [address] 26744- 8879 Sep, Bipolar 1 disorder, depressed, moderate F31.32 [place] [address] 80472- 7723 Sep, Bipolar 1 disorder, depressed, moderate F31.32 [facility] [address] 41133- 0506 Sep, Essential hypertension I10 ; Acquired hypothyroidism E03.9 ; Anxiety F41.9 ; Chronic nausea R11.0 and Irritant contact dermatitis due to plants, except food L24.7 [place] [address] 53877- 2011 Aug, Bipolar 1 disorder, depressed, moderate F31.32 [place] [address] 10433- 7726 Aug, Bipolar 1 disorder, depressed, moderate F31.32 [place] [address] 01602- 6201 Aug, Bipolar 1 disorder, depressed, moderate F31.32 [place] [address] 93613- 1509 July, Candidal dermatitis B37.2 [place] [id number] [place] [address] 00694- 4708 July, Acquired hypothyroidism E03.9 [place] [address] 48232- 1034 July, Bipolar 1 disorder, depressed, moderate F31.32 [facility] [id number] [place] [address] 17366 -6517 July, Seasonal allergies J30.2 [facility] [id number] [place] [address] 07882- 4238 July, Bipolar 1 disorder, depressed, moderate F31.32 [place] [address] 30922- 2087 Jun, Pre-diabetes R73.03 [place] [id number] [place] [address] 53756- 4891 Jun, Bipolar 1 disorder, depressed, moderate F31.32 ; Anxiety F41.9 ; Borderline personality disorder F60.3 ; Polysubstance (including opioids ) dependence with physiol dependence F19.20 and Other specified abnormal findings of blood chemistry R79.89 [place] [address] 60672- 1010 Jun, Bipolar 1 disorder, depressed, moderate F31.32 [place] [address] [place] [id number]- 0949 May, Bipolar 1 disorder, depressed, moderate F31.32 [place] [id number] [place] [address] 59329- 3411 May, Bipolar 1 disorder, depressed, moderate F31.32 [place] [id number] [place] [address] 45239- 3735 May, [place] [address] 80879- 3334 May, [place] [address] 27148- 9150 May, Bipolar 1 disorder, depressed, moderate F31.32 [place] [id number] [place] [address] 64800- 9020 May, Bipolar 1 disorder, depressed, moderate F31.32 [place] [id number] [place] [address] 40156- 1957 May, Other specified abnormal findings of blood chemistry R79.89 [place] [address] [place] [id number]- 7735 May, Essential hypertension I10 ; Acquired hypothyroidism E03.9 ; Gastroesophageal reflux disease with esophagitis K21.0 ; Hair loss L65.9 ; Hypokalemia, gastrointestinal losses E87.6 ; Pre-diabetes R73.03 ; Candidal dermatitis B37.2 and Pure hypercholesterolemia E78.00 [place] [id number] [place] [address] 17662- 5135 Apr, Bipolar 1 disorder, depressed, moderate F31.32 [place] [address] 04772- 3918 Apr, Bipolar 1 disorder, depressed, moderate F31.32 [place] [address] 09676- 8536 Apr, Bipolar 1 disorder, depressed, moderate F31.32 and Anxiety F41.9 [facility] [address] 81619 -7667 Mar, Encounter for immunization Z23 ; Fall, initial encounter W19.XXXA ; Rib pain on left side R07.81 and Left hip pain M25.[address] 53207- 0681 Mar, Bipolar 1 disorder, depressed, moderate F31.32 and Anxiety F41.9 [place] [address] 70003- 7919 Mar, Bipolar 1 disorder, depressed, moderate F31.32 ; Anxiety F41.9 ; Borderline personality disorder F60.3 and Polysubstance (including opioids) dependence with physiol dependence F19.20 [place] [id number] [place] [address] 07015- 5719 Mar, Bipolar 1 disorder, depressed, moderate F31.32 and Anxiety F41.9 [facility] [address] 68265 -9481 Feb, Irritant contact dermatitis, unspecified trigger L24.9 [place] [address] 48745- 5151 Feb, [place] [address] 17232- 4303 Feb, [place] [id number] [place] [address] 53419- 3281 Feb, Bipolar 1 disorder, depressed, moderate F31.32 and Anxiety F41.9 [place] [id number] [place] [address] 599706- 3518 Feb, Acute non-recurrent maxillary sinusitis J01.00 [place] [id number] [place] [address] 503140- 7804 Feb, [place] [id number] [place] [address] 92431- 3471 Feb, Bipolar 1 disorder, depressed, moderate F31.32 [place] [id number] [place] [address] 94927- 2838 Jan, [place] [id number] [place] [address] 98124- 2248 Jan, Bipolar 1 disorder, depressed, moderate F31.32 ; Anxiety F41.9 ; Borderline personality disorder F60.3 and Polysubstance (including opioids) dependence with physiol dependence F19.20 [place] [id number] [place] [address] 26646- 9957 27 Jan, 2017 Bipolar 1 disorder, depressed, moderate F31.32 and Anxiety F41.9 [place] [id number] [place] [address] 85975- 3118 20 Jan, 2017 Bipolar 1 disorder, depressed, moderate F31.32 ; Anxiety F41.9 ; Borderline personality disorder F60.3 and Polysubstance (including opioids) dependence with physiol dependence F19.20 [place] [id number] [place] [address] 96046- 0112 13 Jan, 2017 Bipolar 1 disorder, depressed, moderate F31.32 and Anxiety F41.9 [place] [id number] [place] [address] 11728- 4657 Dec, Hypokalemia, gastrointestinal losses E87.6 ; GERD ( gastroesophageal reflux disease) K21.9 and Bipolar 1 disorder, depressed, moderate F31.32 [place] [id number] [place] [address] 67061- 4352 Dec, Bipolar 1 disorder, depressed, moderate F31.32 and Anxiety F41.9 [facility] [place] [id number] [place] [address] 22204 -0214 Dec, [place] [address] 12428- 6670 Dec, [facility] [place] [id number] [place] [address] 44503 -3976 Dec, Fall (on) (from) other stairs and steps, initial encounter W10.8XXA ; Laceration of left lower extremity, initial encounter S81.812A ; Contusion of right knee, initial encounter S80.01XA and Contusion of right shoulder, initial encounter S40.011A [address] 00062- 2605 Dec, Bipolar 1 disorder, depressed, moderate F31.32 ; Anxiety F41.9 ; Borderline personality disorder F60.3 and Polysubstance (including opioids) dependence with physiol dependence F19.20 [place] [id number] [place] [address] 43387- 5996 Dec, Bipolar 1 disorder, depressed, moderate F31.32 and Anxiety F41.9 [place] [id number] [place] [address] 21643- 0206 Dec, [address] 17543- 4858 Dec, Hospital discharge follow-up Z09 ; Nephrolithiasis N20.0 ; Essential hypertension I10 ; Gastroesophageal reflux disease with esophagitis K21.0 and Anxiety F41.9 [place] [id number] [place] [address] 68669- 1945 Nov, [facility] [address] 25899 -4905 Nov, Dysuria R30.0 and Acute cystitis with hematuria N30.01 [facility] [address] 86949 -1048 Nov, [facility] [address] 27179- 2185 Nov, [facility] [address] 57760- 8923 Nov, Gastroesophageal reflux disease with esophagitis K21.0 ; Hypercholesteremia E78.00 and Acquired hypothyroidism E03.9 [facility] [address] 48182 -7424 18 Nov, 2016 Left wrist pain M25.532 and Contusion of left wrist, initial encounter S60.212A [place] [address] 97624- 0299 18 Nov, 2016 Bipolar 1 disorder, depressed, moderate F31.32 ; Anxiety F41.9 ; Borderline personality disorder F60.3 and Polysubstance (including opioids) dependence with physiol dependence F19.20 [facility] [address] 23036 -9878 15 Nov, 2016 Abdominal pain R10.9 and GERD (gastroesophageal reflux disease) K21.9 [place] [address] 54544- 3017 12 Nov, 2016 Hypokalemia, gastrointestinal losses E87.6 [place] [address] 74807- 6075 11 Nov, 2016 Dehydration E86.0 ; Hypokalemia, gastrointestinal losses E87.6 and Vaginal candidiasis B37.3 [place] [address] 23828- 2717 08 Nov, 2016 Abnormal weight loss R63.4 ; Diarrhea, unspecified R19.7 ; Vomiting, unspecified R11.10 ; Generalized abdominal pain R10.84 and Decreased breath sounds R06.89 [place] [id number] [place] [address] 22966- 9591 Oct, Bipolar 1 disorder, depressed, moderate F31.32 and Anxiety F41.9 [place] [address] 58781- 1012 Sep, Bipolar 1 disorder, depressed, moderate F31.32 ; Anxiety F41.9 ; Borderline personality disorder F60.3 and Polysubstance (including opioids) dependence with physiol dependence F19.20 [place] [address] 00792- 7962 Sep, Bipolar 1 disorder, depressed, moderate F31.32 and Anxiety F41.9 [place] [address] 34029- 7455 Sep, Bipolar 1 disorder, depressed, moderate F31.32 [place] [address] 05126- 8388 Sep, Bipolar 1 disorder, depressed, moderate F31.32 and Anxiety F41.9 [facility] [place] [address] 74066 -2963 Sep, Pain of toe of right foot M79.674 [place] [id number] [place] [address] 80267- 5167 Sep, [facility] [id number] [place] [address] 28169 -8044 Sep, Cellulitis of right ankle L03.115 [place] [address] 19370- 4295 Sep, Bipolar 1 disorder, depressed, moderate F31.32 and Anxiety F41.9 [place] [address] 06565- 1364 Sep, [place] [address] 11082- 3111 Sep, [place] [id number] [place] [address] 37845- 3556 Sep, Bipolar 1 disorder, depressed, moderate F31.32 and Anxiety F41.9 [place] [address] 74322- 0379 Sep, Accidental spider bite T63.301A [place] [address] 55399- 6928 Aug, Bipolar 1 disorder, depressed, moderate F31.32 ; Anxiety F41.9 ; Borderline personality disorder F60.3 and Polysubstance (including opioids) dependence with physiol dependence F19.20 [place] [address] 72970- 6120 Aug, [place] [address] 75080- 6805 Aug, Bipolar 1 disorder, depressed, moderate F31.32 and Anxiety F41.9 [place] [address] 12260- 6167 Aug, Pre-diabetes R73.03 ; Acute seasonal allergic rhinitis due to pollen J30.1 ; Hypercholesteremia E78.00 and Nausea R11.0 [place] [id number] [place] [address] 12909- 5447 Aug, [place] [address] 67674- 8414 Aug, Bipolar 1 disorder, depressed, moderate F31.32 and Anxiety F41.9 [place] [id number] [place] [address] 99908- 3314 Aug, [place] [address] 25854- 8138 Aug, [place] [address] 19025- 9484 Aug, [facility] [address] 34666- 4111 Aug, Bipolar 1 disorder, depressed, moderate F31.32 and Anxiety F41.9 [place] [id number] [place] [address] 87941- 3332 Aug, [facility] [id number] [place] [address] 57061 -2256 Aug, Insect bite, initial encounter W57.XXXA and Cellulitis of left lower leg L03.116 [place] [id number] [place] [address] 10039- 4814 Aug, Bipolar 1 disorder, depressed, moderate F31.32 and Borderline personality disorder F60.[address] 48031- 4184 July, [address] 80819- 4970 July, [place] [id number] [place] [address] 76839- 6105 July, Encounter for routine adult health examination with abnormal findings Z00.01 ; History of esophageal cancer Z85.01 ; Bipolar 1 disorder, depressed, moderate F31.32 ; Anxiety F41.9 ; Acquired hypothyroidism E03.9 ; Essential hypertension I10 ; Gastroesophageal reflux disease with esophagitis K21.0 and Encounter for immunization Z23 [place] [id number] [place] [address] 35127- 8043 July, Bipolar 1 disorder, depressed, moderate F31.32 and Anxiety F41.9 [place] [id number] [place] [address] 00369- 5174 July, [place] [id number] [place] [address] 46508- 8140 July, Bipolar 1 disorder, depressed, moderate F31.32 and Anxiety F41.9 [place] [id number] [place] [address] 17239- 3809 July, Bipolar 1 disorder, depressed, moderate F31.32 [facility] [address] [place] [address]- 2502 July, Bipolar 1 disorder, depressed, moderate F31.32 and Anxiety F41.9 [facility] [address] [place], [place] [address]- 1146 Jun, Bipolar 1 disorder, depressed, moderate F31.32 [facility] [id number] [place] [address] 826895- 6334 Jun, Bipolar 1 disorder, depressed, moderate F31.32 and Borderline personality disorder F60.3 [place] [id number] [place]- 1416 Jun, Bipolar 1 disorder, depressed, moderate F31.32 [place] [address] [place] [address] [id number] [place] [address] 961400- 1286 Jun, Bipolar 1 disorder, depressed, moderate F31.32 [facility] [id number] [place] [address] 18138- 9051 May, Bipolar 1 disorder, depressed, moderate F31.32 and Anxiety F41.9 [place] [address] [id number] [place] [address] 56573- 4030 May, Bipolar 1 disorder, depressed, moderate F31.32 and Anxiety F41.9 [facility] [address] [place] [address] 91977- 0136 May, Bipolar 1 disorder, depressed, moderate F31.32 and Anxiety F41.9 [facility] [address] [place] [address] 17651- 3095 May, Bipolar 1 disorder, depressed, moderate F31.32 and Borderline personality disorder F60.3 [facility] [address] [place] [address] 98436- 1594 14 May, 2016 [facility] [id number] [place] [address] 35050- 8637 13 May, 2016 Bipolar 1 disorder, depressed, moderate F31.32 and Anxiety F41.9 [facility] [id number] [place] [address] 16349- 9830 May, Bipolar 1 disorder, depressed, moderate F31.32 and Anxiety F41.9 [facility] [id number] [place] [address] 22324- 1030 May, [facility] [address] 90398- 6893 May, Bipolar 1 disorder, depressed, moderate F31.32 [place] [id number] [place] [address] 08159- 1854 May, Bipolar 1 disorder, depressed, moderate F31.32 and Generalized anxiety disorder F41.1 [place] [id number] [place] [address] 17339- 5296 Apr, Bipolar 1 disorder, depressed, moderate F31.32 and Anxiety F41.9 [facility] [id number] [place] [address] 34018- 4815 Apr, [facility] [id number] [place] [address] 66050- 1060 Apr, Bipolar 1 disorder, depressed, moderate F31.32 and Anxiety F41.9 [facility] [id number] [place] [address] 81776- 9671 Apr, Bipolar 1 disorder, depressed, moderate F31.32 and Anxiety F41.9 [facility] [id number] [place] [address] 96595- 1169 Apr, Bipolar affective disorder, depressed, severe F31.4 and Generalized anxiety disorder F41.1 [facility] [id number] [place] [address]- 5934 Mar, Bipolar 1 disorder, depressed, moderate F31.32 and Anxiety F41.9 [facility] [id number] [place] [address] 65383- 7322 Mar, Bipolar 1 disorder, depressed, moderate F31.32 and Anxiety F41.9 [facility] [address] [place] [address] 49875- 1804 Mar, Bipolar 1 disorder, mixed, moderate F31.62 [facility] [id number] [place] [address] 40178- 5058 Mar, [facility] [address] 26461- 7660 Mar, Bipolar 1 disorder, mixed, moderate F31.62 ; Generalized anxiety disorder F41.1 and 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 [facility] [address] [id number] [place] [address] 92125- 5981 Feb, Bipolar 1 disorder, depressed, moderate F31.32 and Anxiety F41.9 [place] [address] [place] [id number] [place] [address] 68754- 7503 Feb, Bipolar 1 disorder, depressed, moderate F31.32 and Other snf (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 Z79.899 [facility] [id number] [place] [address] 65302- 0779 Feb, [facility] [id number] [place] [address] 89297- 4158 Feb, Bipolar 1 disorder, depressed, moderate F31.32 and Anxiety F41.9 [facility] [address] [place] [id number] [place] [address] 32144- 6440 Feb, Bipolar 1 disorder, depressed, moderate F31.32 and 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 [facility] [id number] [place] [address] 50078- 6221 Feb, Bipolar 1 disorder, depressed, moderate F31.32 and Anxiety F41.9 [facility] [address] [place] [address] 21539- 9817 Dec, Bipolar 1 disorder, depressed, moderate F31.32 and Anxiety F41.9 [facility] [address] [facility] [id number] [address]- 7021 Oct, [facility] [address] [facility] [id number] [address]- 8354 Oct, [facility] [address] [facility] [id number] [address]- 4267 May, [facility] [address] [address]- 8529 May, [facility] [address] [facility] [id number] [address]- 3965 Mar, [facility] [address] [facility] [id number] [address]- 1488 Mar, IMMUNIZATIONS No Known Immunizations SOCIAL HISTORY Never Assessed REASON FOR VISIT f/u Olamide PLAN OF CARE Activity Details Follow Up 2 Months Reason: Follow-up VITAL SIGNS Height 67.0 in 2017-10-16 Weight 191.5 lbs 2017-10-16 Heart Rate 84 bpm 2017-10-16 Respiratory Rate 20 2017-10-16 BMI 29.99 kg/m2 2017-10-16 Blood pressure systolic 160 mmHg 2017-10-16 Blood pressure diastolic 92 mmHg 2017-10-16 MEDICATIONS Medication Instructions Dosage Frequency Start Date End Date Duration Status Triamcinolone Acetonide 0.1 % Externally Twice a day apply thin layer to rash on abdomen twice daily 12h 05 days Active Atorvastatin Calcium 20 MG TAKE 1 TABLET BY MOUTH EVERY DAY 90 Active Lamotrigine 200 mg Orally Once a day 1 tablet 24h Active Latuda 40 mg Orally Once a day at supper 1 tablet with food Jan, Active Lexapro 20 mg Orally Once a day 1 tablet 24h 10 Mar, 2017 Active Gabapentin 300 MG Orally 2 times a day 1 capsule 12h Jan, Active Propranolol HCl 10 mg Orally 2 times a day as needed for anxiety 1 tablet Oct, 30 day(s) Active Ondansetron 8 MG Orally every 8 hrs 1 tablet on the tongue and allow to dissolve 8h Nov, 07 days Active Amlodipine Besylate 10 mg Orally Once a day TAKE 1 TABLET BY MOUTH EVERY DAY 24h 90 Active Levothyroxine Sodium 50 mcg Orally Once a day 1 tablet on an empty stomach in the morning 24h 90 days Active Protonix 40 mg Orally Once a day 1 tablet 24h 15 Nov, 2016 90 days Active RESULTS No Results PROCEDURES Procedure Date Ordered Result Body Site [facility] VISIT ESTABLISHED PATIENT Oct 16, 2017 INSTRUCTIONS MEDICATIONS ADMINISTERED No Known [...] and Neck 2004 Hospitalization History [facility] Admission 2015
--- OUTSIDE RECORDS SUMMARY | 2017-11-25 12:26 | XMS REPORT | Clinical Summary ---
Author Author [facility] Organization [facility] Address Unknown Phone Unavailable Care Team Providers Care Dean Of Men Name Role Phone Estefani Mims MD Unavailable Neymar Crandall MD Unavailable Chyna Prater MA,[facility]-CLINICAL RN MANAGER Unavailable Unavailable Temitope Hopper MD PCP Duy Lawson MD Unavailable Raf Dolan MD Unavailable Nicolasa Arriaza MD Unavailable Jean-Paul Christensen RN Unavailable Unavailable Lisa Frias MD Unavailable Catherine Black RN Unavailable Unavailable Samia De Jesus RN Unavailable Unavailable Ruben Jaimes RN Unavailable Unavailable Mona Mendez RN Unavailable Unavailable Savannah Martin RN Unavailable Unavailable Yasmani Grove MD Unavailable Ashley Le DO Unavailable Source Comments Some departments are not documenting in the electronic medical record. If you do not see the information that you expected, contact Release of Information in the Health Information Management department at [phone] for further assistance in locating additional records.[facility] Allergies Active Allergy Reactions Severity Noted [...] Date Anxiety 11/27/2015 Cluster B personality disorder ([facility]) 02/16/2015 Bipolar I disorder ([facility]) 01/14/2015 PTSD (post-traumatic stress disorder) 11/29/2014 Panic attacks 07/10/2014 Dysphonia 01/25/2011 Laryngeal edema - post radiation therapy 01/25/2011 Oropharynx cancer ([facility]) 08/26/2010 Personal history of irradiation 08/26/2010 Dysphagia 08/26/2010 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 Resolved Problems Problem Noted Date Resolved Date Suicidal ideation 01/09/2016 01/18/2016 Suicidal ideation 05/25/2015 06/10/2015 Major depressive disorder, recurrent, severe without psychotic features 02/201505/26/2015 ([facility]) Suicidal thoughts 01/27/2015 02/11/2015 Bipolar 1 disorder, depressed, severe ([facility]) 01/27/2015 02/14/2015 Depression with suicidal ideation 12/29/2014 01/14/2015 Bipolar 1 disorder, mixed, partial remission ([facility]) 06/12/2014 05/26/2015 Family History Medical History Relation [...] Taken Blood Pressure 136/86 01/18/2016 9:30 AM 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
--- NOTE | 2017-11-25 12:27 | ED Chest Pain ---
General Stated Complaint: ARM NUMBNESS, PALPITATIONS Source: patient Exam Limitations: no limitations History of Present Illness Date Seen by Provider: Nov 25, 2017 Time Seen by Provider: 12:25 Initial Comments To ER with reports of left arm numbness, left sided chest pain sharp in nature and reproducible, nausea or shortness of breath and sweating. The chest pain and shortness of breath have been constant since awakening at 6:30 AM this morning. She had an episode of nausea and sweating after that but those symptoms have resolved. She is a nonsmoker she states and she states that she has no history of coronary stents or known heart disease. She thought maybe this was just related to "stress". She states that she has a new dog at home and an autistic child lives with them so stress could be a component. Her left arm pain she states is worsened with any movement of the left arm such as abduction. She does not recall any injury. She denies any unilateral leg swelling, no history of DVT, no recent surgery within 3 months and no prolonged immobilization such as in a car or on an airplane. Timing/Duration: 4-6 hours Severity/Quality: moderate ASA po PAYROLL ASSOCIATE: No NTG SL PAYROLL ASSOCIATE: No Associated Symptoms: shortness of breath Allergies and Home Medications Allergies Coded Allergies: Iodinated Contrast- Oral and IV Dye (Verified Allergy, Severe, HIVES, 10/02) COUGHING, SNEEZING, HIVES UPON TRACE AMOUNT OF CONTRAST. codeine (Verified Allergy, Intermediate, RASH/SWELLING; PATIENT HAS RECEIVED MORPHINE W/O PROBLEMS, 12/06/16) adhesive tape (Verified Allergy, Unknown, 12/06/16) latex (Verified Allergy, Unknown, 12/06/16) Penicillins (Verified Adverse Reaction, Mild, NAUSEA/VOMITING, 12/07/16) SHE CAN TAKE AUGMENTIN FINE Home Medications Amlodipine Besylate 10 Mg Tablet, 10 MG PO DAILY, (Reported) Atorvastatin Calcium 20 Mg Tablet, 20 MG PO DAILY, (Reported) Budesonide/Formoterol Fumarate 10.2 Gm Hfa.aer.ad, 2 PUFF IH PRN PRN for SHORTNESS OF BREATH, (Reported) Escitalopram Oxalate 20 Mg Tablet, 20 MG PO DAILY, (Reported) Gabapentin 300 Mg Capsule, 300 MG PO QID, (Reported) Hydrocodone/Acetaminophen 1 Each Tablet, 1 EACH PO Q4H PRN for PAIN-MODERATE Prescribed by: MARTHA LEE on 11/25/17 1419 Lamotrigine 200 Mg Tablet, 200 MG PO DAILY, (Reported) Levothyroxine Sodium 50 Mcg Tablet, 50 MCG PO DAILY, (Reported) Lurasidone HCl 40 Mg Tablet, 40 MG PO DAILY, (Reported) Pantoprazole Sodium 40 Mg Tablet.dr, 40 MG PO DAILY, (Reported) Patient Home Medication List Home Medication List Reviewed: Yes Review of Systems Review of Systems Constitutional: see HPI; No chills, No fever EENTM: No Symptoms Reported Respiratory: See HPI; Denies Orthopnea; Shortness of Air Cardiovascular: See HPI, Chest Pain Gastrointestinal: Nausea Genitourinary: No Symptoms Reported Musculoskeletal: no symptoms reported Skin: no symptoms reported Psychiatric/Neurological: No Symptoms Reported Endocrine: No Symptoms Reported Hematologic/Lymphatic: No Symptoms Reported Past Nnlsdsg-Yihyht-Zswane Hx Patient Social History Type Used: Cigarettes Former Smoker, Quit: Aug 11, 1986 2nd Hand Smoke Exposure: No Recent Hopitalizations: No Immunizations Up To Date Tetanus Booster (TDap): Less than 5yrs PED Vaccines UTD: No Date of Pneumonia Vaccine: July 25, 2016 Date of Influenza Vaccine: July 25, 2016 Seasonal Allergies Seasonal Allergies: Yes Past Medical History Surgeries: Yes (PEG TUBE, TRACH, COLON RESECTION, BUNION SX, PORT/PEG REMOVED IN 2010, EGD) Appendectomy, Breast, Gallbladder, Hysterectomy, Orthopedic, Tonsillectomy, Tubal Ligation Respiratory: Yes (HAS INHALER PRN) Chronic Bronchitis Currently Using CPAP: No Cardiac: Yes (CARDIAC CATH-NO STENTS) Deep Vein Thrombosis, High Cholesterol, Hypertension Neurological: Yes Headaches /Migraines Reproductive Disorders: No Female Reproductive Disorders: Polycystic Ovarian Dis 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 Sexually Transmitted Disease: No HIV/AIDS: No Kidney Stones Gastrointestinal: Yes (HX ESOPHAGEAL CA) Gastroesophageal Reflux, Chronic Constipation, Diverticulosis Musculoskeletal: Yes Arthritis, Fibromyalgia Endocrine: Yes Diabetes, Non-Insulin dep Loss of Vision: Bilateral Hearing Impairment: Denies Cancer: Yes (OROPHARNYX CANCER) Did You Recieve Any Treatments: Yes What Type of Treatment Did You: Chemotherapy, Radiation, Surgical Intervention Psychosocial: Yes Sleep Difficulties, Anxiety, Bipolar, Depression Integumentary: No Blood Disorders: No Adverse Reaction/Blood Tranf: No Family Medical History Alzheimer's disease 19 MOTHER Arthritis 19 MOTHER Cardiovascular disease 19 MOTHER Cataracts 19 MOTHER Dementia 19 MOTHER Diabetes mellitus 19 FATHER Headache disorder Hypercholesterolemia 19 FATHER Hypertension 19 FATHER Neoplasm 19 FATHER (PANCREATIC CANCER) Heart Disease, Cancer, Hypertension, Psychiatric Problems Physical Exam Vital Signs Vital Signs - First Documented 11/25/17 11/25/17 12:19 12:55 Temp 98.0 Pulse 74 Resp 18 B/P (MAP) 157/77 (103) Pulse Ox 94 O2 Delivery Room Air Capillary Refill : Height, Weight, BMI Height: 5'7.00" Weight: 180lbs. 0.0oz. 81.459049dl; 27.9 BMI Method:Stated General Appearance: No Apparent Distress, WD/WN, Other (appears older than stated age) HEENT: PERRL/EOMI, TMs Normal Neck: Full Range of Motion, Normal Inspection Respiratory: Normal Breath Sounds, No Accessory Muscle Use, No Respiratory Distress, Other (left chest wall is tender to palpation, this does reproduce her pain.) Cardiovascular: Regular Rate, Rhythm, Normal Peripheral Pulses Gastrointestinal: Normal Bowel Sounds, Non Tender, Soft Extremity: Normal Capillary Refill, Normal Inspection, Other (left arm and left chest pain is worsened by anterior movement of the arm at the shoulder. Pulse is +2 and no swelling. ) Neurologic/Psychiatric: Alert, Oriented x3 Skin: Normal Color, Warm/Dry Progress/Results/Core Measures Results/Orders Lab Results Laboratory Tests Test 11/25/17 12:26 Range/Units White Blood Count 4.8 4.3-11.0 10^3/uL Red Blood Count 4.77 4.35-5.85 10^6/uL Hemoglobin 13.9 11.5-16.0 G/DL Hematocrit 40 35-52 % Mean Corpuscular Volume 84 80-99 FL Mean Corpuscular Hemoglobin 29 25-34 PG Mean Corpuscular Hemoglobin Concent 35 32-36 G/DL Red Cell Distribution Width 14.6 H 10.0-14.5 % Platelet Count 220 130-400 10^3/uL Mean Platelet Volume 9.1 7.4-10.4 FL Neutrophils (%) (Auto) 63 42-75 % Lymphocytes (%) (Auto) 26 12-44 % Monocytes (%) (Auto) 12 0-12 % Eosinophils (%) (Auto) 0 0-10 % Basophils (%) (Auto) 0 0-10 % Neutrophils # (Auto) 3.0 1.8-7.8 X 10^3 Lymphocytes # (Auto) 1.2 1.0-4.0 X 10^3 Monocytes # (Auto) 0.6 0.0-1.0 X 10^3 Eosinophils # (Auto) 0.0 0.0-0.3 10^3/uL Basophils # (Auto) 0.0 0.0-0.1 10^3/uL Prothrombin Time 13.0 12.2-14.7 SEC INR Comment 1.0 0.8-1.4 Activated Partial Thromboplast Time 29 24-35 SEC D-Dimer 0.27 0.00-0.49 UG/ML Sodium Level 139 135-145 MMOL/L Potassium Level 3.8 3.6-5.0 MMOL/L Chloride Level 104 98-107 MMOL/L Carbon Dioxide Level 25 21-32 MMOL/L Anion Gap 10 5-14 MMOL/L Blood Urea Nitrogen 9 7-18 MG/DL Creatinine 0.84 0.60-1.30 MG/DL Estimat Glomerular Filtration Rate > 60 BUN/Creatinine Ratio 11 Glucose Level 100 70-105 MG/DL Calcium Level 9.9 8.5-10.1 MG/DL Corrected Calcium 9.5 8.5-10.1 MG/DL Magnesium Level 2.5 H 1.8-2.4 MG/DL Total Bilirubin 0.5 0.1-1.0 MG/DL Aspartate Amino Transf (AST/SGOT) 17 5-34 U/L Alanine Aminotransferase (ALT/SGPT) 14 0-55 U/L Alkaline Phosphatase 67 40-136 U/L Myoglobin 45.4 10.0-92.0 NG/ML Troponin I < 0.30 <0.30 NG/ML B-Type Natriuretic Peptide 26.4 <100.0 PG/ML Total Protein 7.2 6.4-8.2 GM/DL Albumin 4.5 3.2-4.5 GM/DL My Orders Orders - MARTHA LEE APRN Cbc With Automated Diff (11/25/17 12:20) Magnesium (11/25/17 12:20) Chest 1 View, Ap/Pa Only (11/25/17 12:20) Ekg Tracing (11/25/17 12:20) Cardiac Profile 1 (11/25/17 12:20) Comprehensive Metabolic Panel (11/25/17 12:20) Myoglobin Serum (11/25/17 12:20) Protime With Inr (11/25/17 12:20) Partial Thromboplastin Time (11/25/17 12:20) O2 (11/25/17 12:20) Monitor-Rhythm Ecg Trace Only (11/25/17 12:20) Lipid Panel (11/26/17 06:00) Saline Lock/Iv-Start (11/25/17 12:20) BNP (11/25/17 12:20) Aspirin Chewable Tablet (Baby Aspirin Ch (11/25/17 12:30) Nitroglycerin 0.4 Mg Btl 25's (Nitrostat (11/25/17 12:30) Ketorolac Injection (Toradol Injection) (11/25/17 13:00) Lorazepam Injection (Ativan Injection) (11/25/17 13:30) Fibrin Degradation Products (11/25/17 13:33) Fibrin Degradation Products (11/25/17 12:26) Medications Given in ED Current Medications Medications Dose Ordered Sig/Keven Route Start Time Stop Time Status Last Admin Dose Admin Aspirin 324 mg ONCE ONCE PO 11/25/17 12:30 11/25/17 12:31 DC 11/25/17 12:30 324 MG Ketorolac Tromethamine 15 mg ONCE ONCE IVP 11/25/17 13:00 11/25/17 13:01 DC 11/25/17 13:06 15 MG Lorazepam 0.5 mg ONCE PRN IVP 11/25/17 13:30 11/25/17 13:54 0.5 MG Nitroglycerin 1 TAB Q 5 MIN X 3 NEEDED PRN SL 11/25/17 12:30 11/25/17 12:38 0.4 MG Vital Signs/I&O 11/25/17 11/25/17 12:19 12:55 Temp 98.0 Pulse 74 70 Resp 18 18 B/P (MAP) 157/77 (103) 112/67 (82) Pulse Ox 94 94 O2 Delivery Room Air Departure Communication (Admissions) Family Conversation Ekg is NSR rate [address] segment changes. Her troponin is negative despite 6 hours of constant pain. Her chest wall is tender palpation on the left side and her left shoulder pain is worsened with shoulder abduction. This may represent musculoskeletal source of pain. She states that someone will nitroglycerin actually worsened her pain. 1243-nitroglycerin sublingual worsened her pain. She had a cardiac catheterization in 2010 showing angiographically normal coronary arteries. 1429- discussed with the patient and her that her troponin is normal despite greater than 6 hours of constant pain, her EKG has no ischemic changes, she had a normal catheterization 7 years ago and her d-dimer is negative. Patient states "next time I think I'm having a heart attack all just A at home and ". Advised her not to do this and not to ignore symptoms that concern her for a heart attack. Impression Primary Impression: Chest wall pain Additional Impression: Left shoulder pain Disposition: HOME, SELF-CARE Condition: Stable Departure-Patient Inst. Decision time for Depature: 13:14 Referrals: [facility] (PCP) Primary Care Physician DIKC ANGULO APRN (Family) Primary Care Physician Patient Instructions: Chest Pain (DC) Add. Discharge Instructions: 1. Return to ER for any concerns such as worsening chest pain or shortness of breath. Follow up with your doctor next week Scripts Hydrocodone/Acetaminophen ([place] 5-325 Tablet) 1 Each Tablet 1 EACH PO Q4H PRN for PAIN-MODERATE, #10 TAB Prov: MARTHA LEE APRN 11/25/17 MARTHA LEE APRN Nov 25, 2017 12:27
--- OUTSIDE RECORDS SUMMARY | 2017-11-25 12:27 | XMS REPORT ---
Author Author CHANDLER MCDANIELS [facility] Address [address] [place] [address] Care Team Providers Care [employer] Supervisor Name Role Phone CHANDLER MCDANIELS Unavailable PROBLEMS Type Condition ICD9-CM Code [id number] Code Onset Dates Condition Status SNOMED Code Problem Gastroesophageal reflux disease with esophagitis K21.0 Active 693019925 Problem Polysubstance (including opioids) dependence with physiol dependence F19.20 Active 73746144 Problem History of esophageal cancer Z85.01 Active 526464278 Problem Seasonal allergies J30.2 Active 498914686 Problem Pre-diabetes R73.03 Active 303862520 Problem GERD (gastroesophageal reflux disease) K21.9 Active 339286474 Problem Borderline personality disorder F60.3 Active 98014538 Problem Pure hypercholesterolemia E78.00 Active 873373124 Problem Nephrolithiasis N20.0 Active 06658932 Problem STATE HEP A (ADULT) DX V05.3 Active 690558504 Problem Bipolar 1 disorder, depressed, moderate F31.32 Active 32610033 Problem Anxiety F41.9 Active 80082155 Problem Vitamin D insufficiency E55.9 Active 779829706 Problem Essential hypertension I10 Active 78288793 Problem Elevated serum creatinine R79.89 Active 503336332 Problem Acquired hypothyroidism E03.9 Active 713866943 ALLERGIES Substance Reaction Event Type Date Status Adhesive Tape Rash Drug Allergy Sep, Active Zolpidem Tartrate Client OVERDOSE Drug Allergy Sep, Active Penicillamine Hives Drug Allergy Sep, Active Codeine Sulfate Nausea and Vomitting Drug Allergy Sep, Active ENCOUNTERS Encounter Location Date Diagnosis [facility] [id number] [address] Jan, [facility] [address] [facility] [id number], [place] [address] Dec, [facility] [address] [place] [address] 84212- 4877 Dec, [facility] [id number] [place] [address] 77539- 7287 Nov, [facility] [id number] [place] [address] 51822- 5377 Nov, [facility] [id number] [place] [address] 50462- 8000 Nov, Bipolar 1 disorder, depressed, moderate F31.32 and Anxiety F41.9 [facility] [id number] [place] [address] 04223- 1159 Oct, Bipolar 1 disorder, depressed, moderate F31.32 ; Anxiety F41.9 ; Borderline personality disorder F60.3 ; Polysubstance (including opioids ) dependence with physiol dependence F19.20 and Other alf (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 Z79.899 [place] [id number] [place] [address] 12908- 2320 Oct, Bipolar 1 disorder, depressed, moderate F31.32 [facility] [id number] [place] [address] [id number] Sep, Encounter for dental examination Z01.20 [facility] [id number] [place] [address] 02972- 2448 Sep, Acute oral pain K13.79 [facility] [id number] [place] [address] 80848- 6635 Sep, Bipolar 1 disorder, depressed, moderate F31.32 [facility] [address] [place] [address] 13978- 6372 Sep, Bipolar 1 disorder, depressed, moderate F31.32 [facility] [address] [place] [address] 65881- 0400 Sep, Bipolar 1 disorder, depressed, moderate F31.32 [facility] [address] [place] [address] 97092- 3526 Sep, Essential hypertension I10 ; Acquired hypothyroidism E03.9 ; Anxiety F41.9 ; Chronic nausea R11.0 and Irritant contact dermatitis due to plants, except food L24.7 [place] [id number] [place] [address] 07310- 3007 Aug, Bipolar 1 disorder, depressed, moderate F31.[address] 50817- 0656 Aug, Bipolar 1 disorder, depressed, moderate F31.32 [place] [address] 84600- 6143 Aug, Bipolar 1 disorder, depressed, moderate F31.[address] 58743- 2984 July, Candidal dermatitis B37.[address] 41589- 0090 July, Acquired hypothyroidism E03.9 [place] [address] 00086- 4966 July, Bipolar 1 disorder, depressed, moderate F31.32 [facility] [address] [place] [id number] [place] [address] 58402 -4948 July, Seasonal allergies J30.2 [address] [id number] [place] [address] 19323- 7991 July, Bipolar 1 disorder, depressed, moderate F31.32 [place] [id number] [place] [address] 47160- 3582 Jun, Pre-diabetes R73.[address] 52241- 0935 Jun, Bipolar 1 disorder, depressed, moderate F31.32 ; Anxiety F41.9 ; Borderline personality disorder F60.3 ; Polysubstance (including opioids ) dependence with physiol dependence F19.20 and Other specified abnormal findings of blood chemistry R79.89 [place] [id number] [place] [address] 03453- 8296 17 Jun, 2017 Bipolar 1 disorder, depressed, moderate F31.32 [place] [address] 926767- 6150 May, Bipolar 1 disorder, depressed, moderate F31.32 [place] [address] 926762- 1759 May, Bipolar 1 disorder, depressed, moderate F31.32 [place] [address] 44610- 2623 May, [place] [address] 138025- 8591 May, [place] [address] 07602- 9389 May, Bipolar 1 disorder, depressed, moderate F31.32 [place] [id number] [place] [address] 26032- 4845 May, Bipolar 1 disorder, depressed, moderate F31.32 [place] [address] 20142008- 0326 May, Other specified abnormal findings of blood chemistry R79.89 [address] [id number] [place] [address] 64651- 5727 08 May, 2017 Essential hypertension I10 ; Acquired hypothyroidism E03.9 ; Gastroesophageal reflux disease with esophagitis K21.0 ; Hair loss L65.9 ; Hypokalemia, gastrointestinal losses E87.6 ; Pre-diabetes R73.03 ; Candidal dermatitis B37.2 and Pure hypercholesterolemia E78.00 [place] [id number] [place] [address] Apr, Bipolar 1 disorder, depressed, moderate F31.32 [place] [id number] [place] [address] 02818- 2597 Apr, Bipolar 1 disorder, depressed, moderate F31.32 [place] [id number] [place] [address] 21984- 3005 Apr, Bipolar 1 disorder, depressed, moderate F31.32 and Anxiety F41.9 [facility] [address] 22179 -9187 Mar, Encounter for immunization Z23 ; Fall, initial encounter W19.XXXA ; Rib pain on left side R07.81 and Left hip pain M25.552 [place] [address] 40091- 3854 Mar, Bipolar 1 disorder, depressed, moderate F31.32 and Anxiety F41.9 [place] [address] 63443- 1894 Mar, Bipolar 1 disorder, depressed, moderate F31.32 ; Anxiety F41.9 ; Borderline personality disorder F60.3 and Polysubstance (including opioids) dependence with physiol dependence F19.20 [place] [address] 51893- 4086 Mar, Bipolar 1 disorder, depressed, moderate F31.32 and Anxiety F41.9 [facility] [address] 35682 -6692 Feb, Irritant contact dermatitis, unspecified trigger L24.9 [place] [address] 81159- 8742 Feb, [place] [address] 53485- 7256 Feb, [place] [address] 89734- 0631 Feb, Bipolar 1 disorder, depressed, moderate F31.32 and Anxiety F41.9 [place] [address] 91387- 9358 Feb, Acute non-recurrent maxillary sinusitis J01.00 [place] [id number] [place] [address] 38429- 5768 Feb, [place] [address] 642293- 6797 Feb, Bipolar 1 disorder, depressed, moderate F31.32 [place] [address] 66056- 7237 Jan, [place] [address] 926761- 5009 Jan, Bipolar 1 disorder, depressed, moderate F31.32 ; Anxiety F41.9 ; Borderline personality disorder F60.3 and Polysubstance (including opioids) dependence with physiol dependence F19.20 [place] [address] 56390- 2371 27 Jan, 2017 Bipolar 1 disorder, depressed, moderate F31.32 and Anxiety F41.9 [place] [address] 23284- 2637 Jan, Bipolar 1 disorder, depressed, moderate F31.32 ; Anxiety F41.9 ; Borderline personality disorder F60.3 and Polysubstance (including opioids) dependence with physiol dependence F19.20 [place] [id number] [place] [address] 20996- 6387 Jan, Bipolar 1 disorder, depressed, moderate F31.32 and Anxiety F41.9 [place] [id number] [place] [address] 21087- 8290 Dec, Hypokalemia, gastrointestinal losses E87.6 ; GERD ( gastroesophageal reflux disease) K21.9 and Bipolar 1 disorder, depressed, moderate F31.32 [place] [address] 00601- 7971 Dec, Bipolar 1 disorder, depressed, moderate F31.32 and Anxiety F41.9 [facility] [address] 03412 -5972 Dec, [place] [id number] [place] [address] 40014- 4509 Dec, [facility] [address] 20587 -0242 Dec, Fall (on) (from) other stairs and steps, initial encounter W10.8XXA ; Laceration of left lower extremity, initial encounter S81.812A ; Contusion of right knee, initial encounter S80.01XA and Contusion of right shoulder, initial encounter S40.011A [place] [id number] [place] [address] 97462- 3474 Dec, Bipolar 1 disorder, depressed, moderate F31.32 ; Anxiety F41.9 ; Borderline personality disorder F60.3 and Polysubstance (including opioids) dependence with physiol dependence F19.20 [place] [address] 93082- 1759 Dec, Bipolar 1 disorder, depressed, moderate F31.32 and Anxiety F41.9 [place] [address] 31780- 5125 Dec, [place] [address] 71602- 5851 Dec, Hospital discharge follow-up Z09 ; Nephrolithiasis N20.0 ; Essential hypertension I10 ; Gastroesophageal reflux disease with esophagitis K21.0 and Anxiety F41.9 [place] [id number] [place] [address] 20048- 0568 Nov, [facility] [id number] [place] [address] 38847 -3326 Nov, Dysuria R30.0 and Acute cystitis with hematuria N30.01 [facility] [id number] [place] [address] 11425 -4147 Nov, [place] [address] 77653- 5646 Nov, [place] [id number] [place] [address] 57033- 9264 19 Nov, 2016 Gastroesophageal reflux disease with esophagitis K21.0 ; Hypercholesteremia E78.00 and Acquired hypothyroidism E03.9 [facility] [address] 87093 -5352 18 Nov, 2016 Left wrist pain M25.532 and Contusion of left wrist, initial encounter S60.212A [place] [address] 21553- 0601 18 Nov, 2016 Bipolar 1 disorder, depressed, moderate F31.32 ; Anxiety F41.9 ; Borderline personality disorder F60.3 and Polysubstance (including opioids) dependence with physiol dependence F19.20 [place] [address] 69719 -6729 15 Nov, 2016 Abdominal pain R10.9 and GERD (gastroesophageal reflux disease) K21.9 [place] [address] 77152- 1150 12 Nov, 2016 Hypokalemia, gastrointestinal losses E87.[address] 69038- 2473 11 Nov, 2016 Dehydration E86.0 ; Hypokalemia, gastrointestinal losses E87.6 and Vaginal candidiasis B37.3 [place] [address] 65788- 6548 08 Nov, 2016 Abnormal weight loss R63.4 ; Diarrhea, unspecified R19.7 ; Vomiting, unspecified R11.10 ; Generalized abdominal pain R10.84 and Decreased breath sounds R06.89 [place] [address] 24798- 9447 Oct, Bipolar 1 disorder, depressed, moderate F31.32 and Anxiety F41.9 [place] [address] 42438- 2282 Sep, Bipolar 1 disorder, depressed, moderate F31.32 ; Anxiety F41.9 ; Borderline personality disorder F60.3 and Polysubstance (including opioids) dependence with physiol dependence F19.20 [place] [address] 17552- 6298 Sep, Bipolar 1 disorder, depressed, moderate F31.32 and Anxiety F41.9 [place] [address] 37799- 4179 Sep, Bipolar 1 disorder, depressed, moderate F31.32 [place] [address] 16712- 2498 Sep, Bipolar 1 disorder, depressed, moderate F31.32 and Anxiety F41.9 [facility] [address] 33313 -9330 Sep, Pain of toe of right foot M79.674 [address] [address] 47434- 5512 Sep, [facility] [address] 42486 -0007 Sep, Cellulitis of right ankle L03.115 [place] [address] 35012- 3130 Sep, Bipolar 1 disorder, depressed, moderate F31.32 and Anxiety F41.9 [address] [address] 12024- 5640 Sep, [place] [address] 95158- 9231 Sep, [place] [address] 20018- 9900 Sep, Bipolar 1 disorder, depressed, moderate F31.32 and Anxiety F41.9 [place] [address] 35328- 2173 Sep, Accidental spider bite T63.301A [place] [address] [place] [address]- 6968 Aug, Bipolar 1 disorder, depressed, moderate F31.32 ; Anxiety F41.9 ; Borderline personality disorder F60.3 and Polysubstance (including opioids) dependence with physiol dependence F19.20 [facility] [id number] [place] [address] 48231- 5604 Aug, [facility] [address] 28555- 7953 Aug, Bipolar 1 disorder, depressed, moderate F31.32 and Anxiety F41.9 [place] [address] 37160- 0558 Aug, Pre-diabetes R73.03 ; Acute seasonal allergic rhinitis due to pollen J30.1 ; Hypercholesteremia E78.00 and Nausea R11.0 [place] [address] 72632- 5123 Aug, [facility] [address] 65002- 9103 Aug, Bipolar 1 disorder, depressed, moderate F31.32 and Anxiety F41.9 [facility] [address] 57495- 9140 Aug, [facility] [id number] [place] [address] 30087- 4524 Aug, [facility] [address] 58743- 1511 Aug, [facility] [id number] [place] [address] 80973- 8853 Aug, Bipolar 1 disorder, depressed, moderate F31.32 and Anxiety F41.9 [facility] [id number] [place] [address] 51487- 5280 Aug, [facility] [id number] [place] [address] 37051 -1826 Aug, Insect bite, initial encounter W57.XXXA and Cellulitis of left lower leg L03.116 [place] [id number] [place] [address] 50049- 8776 Aug, Bipolar 1 disorder, depressed, moderate F31.32 and Borderline personality disorder F60.[address] 93529- 3839 July, [address] 45929- 1845 July, [address] 65451- 2400 July, Encounter for routine adult health examination with abnormal findings Z00.01 ; History of esophageal cancer Z85.01 ; Bipolar 1 disorder, depressed, moderate F31.32 ; Anxiety F41.9 ; Acquired hypothyroidism E03.9 ; Essential hypertension I10 ; Gastroesophageal reflux disease with esophagitis K21.0 and Encounter for immunization Z23 [place] [address] 88996- 3923 July, Bipolar 1 disorder, depressed, moderate F31.32 and Anxiety F41.[address] 60189- 7243 July, [address] 63864- 9526 July, Bipolar 1 disorder, depressed, moderate F31.32 and Anxiety F41.9 [place] [address] 65332- 1939 July, Bipolar 1 disorder, depressed, moderate F31.[address] 98223- 3962 July, Bipolar 1 disorder, depressed, moderate F31.32 and Anxiety F41.[address] 27799- 7680 Jun, Bipolar 1 disorder, depressed, moderate F31.32 [facility] [address] [place] [address] 27237- 7960 Jun, Bipolar 1 disorder, depressed, moderate F31.32 and Borderline personality disorder F60.3 [facility] [id number] [place], [place] [address]- 2498 Jun, Bipolar 1 disorder, depressed, moderate F31.32 [place] [id number] [place]- 4784 Jun, Bipolar 1 disorder, depressed, moderate F31.32 [place] [id number] [place] [address] 847668- 3656 May, Bipolar 1 disorder, depressed, moderate F31.32 and Anxiety F41.9 [place] [id number] [place] [address] 85889- 9898 May, Bipolar 1 disorder, depressed, moderate F31.32 and Anxiety F41.9 [place] [id number] [place] [address] 80092- 8251 May, Bipolar 1 disorder, depressed, moderate F31.32 and Anxiety F41.9 [place] [id number] [place] [address] 71412- 7724 May, Bipolar 1 disorder, depressed, moderate F31.32 and Borderline personality disorder F60.3 [place] [address] [place] [address] 01741- 7558 14 May, 2016 [facility] [id number] [place] [address] 40957- 6603 May, Bipolar 1 disorder, depressed, moderate F31.32 and Anxiety F41.9 [place] [address] [place] [address] 48389- 2499 May, Bipolar 1 disorder, depressed, moderate F31.32 and Anxiety F41.9 [place] [address] [place] [address] 21509- 0765 May, [place] [address] [place] [address] 28299- 2171 May, Bipolar 1 disorder, depressed, moderate F31.32 [facility] [id number] [place] [address] 23101- 3099 May, Bipolar 1 disorder, depressed, moderate F31.32 and Generalized anxiety disorder F41.1 [facility] [id number] [place] [address] 95650- 0369 Apr, Bipolar 1 disorder, depressed, moderate F31.32 and Anxiety F41.9 [place] [id number] [place] [address] 10785- 2915 Apr, [place] [id number] [place] [address] 17604- 3665 13 Apr, 2016 Bipolar 1 disorder, depressed, moderate F31.32 and Anxiety F41.9 [place] [id number] [place] [address] 77351- 5292 Apr, Bipolar 1 disorder, depressed, moderate F31.32 and Anxiety F41.9 [place] [id number] [place] [address] 61229- 0715 07 Apr, 2016 Bipolar affective disorder, depressed, severe F31.4 and Generalized anxiety disorder F41.1 [place] [address] [place] [address] 42494- 7636 Mar, Bipolar 1 disorder, depressed, moderate F31.32 and Anxiety F41.9 [place] [address] [place] [address] 29302- 6438 Mar, Bipolar 1 disorder, depressed, moderate F31.32 and Anxiety F41.9 [place] [id number] [place] [address] 07446- 4154 Mar, Bipolar 1 disorder, mixed, moderate F31.62 [facility] [id number] [place] [address] 47954- 5224 Mar, [facility] [address] [place] [address] 08439- 2368 Mar, Bipolar 1 disorder, mixed, moderate F31.62 ; Generalized anxiety disorder F41.1 and 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 [facility] [address] [place] [address] 60138- 4281 Feb, Bipolar 1 disorder, depressed, moderate F31.32 and Anxiety F41.9 [facility] [id number] [place] [address] 10082- 8792 Feb, Bipolar 1 disorder, depressed, moderate F31.32 and 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 [facility] [id number] [place] [address] 93776- 5176 Feb, [facility] [id number] [place] [address] 06883- 9602 Feb, Bipolar 1 disorder, depressed, moderate F31.32 and Anxiety F41.9 [facility] [address] [place] [address] 13185- 2670 Feb, Bipolar 1 disorder, depressed, moderate F31.32 and Other alf (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 Z79.899 [facility] [address] [place] [address] 79687- 3392 Feb, Bipolar 1 disorder, depressed, moderate F31.32 and Anxiety F41.9 [facility] [address] [place] [address] 36873- 9601 Dec, Bipolar 1 disorder, depressed, moderate F31.32 and Anxiety F41.9 [facility] [id number] [place] [address] 391886- 1420 Oct, [facility] [id number] [place] [address] 23689- 8457 Oct, [facility] [id number] [place] [address] 24220- 9687 May, [facility] [address] [facility] [id number] [place] [address]- 6834 May, [facility] [address] [facility] [id number] [place] [address]- 4636 Mar, [facility] [address] [facility] [id number] [place] [address]- 3716 Mar, IMMUNIZATIONS No Known Immunizations SOCIAL HISTORY Never Assessed REASON FOR VISIT Oral Cancer Screen PLAN OF CARE VITAL SIGNS MEDICATIONS Medication Instructions Dosage Frequency Start Date End Date Duration Status Amlodipine Besylate 10 mg Orally Once a day TAKE 1 TABLET BY MOUTH EVERY DAY 24h 90 Active Levothyroxine Sodium 50 mcg Orally Once a day 1 tablet on an empty stomach in the morning 24h 90 days Active Ondansetron 8 MG Orally every 8 hrs 1 tablet on the tongue and allow to dissolve 8h Nov, 07 days Active Lamotrigine 200 mg Orally Once a day 1 tablet 24h 30 days Active Protonix 40 mg Orally Once a day 1 tablet 24h 15 Nov, 2016 90 days Active Lexapro 20 mg Orally Once a day 1 tablet 24h 10 Mar, 2017 30 days Active Triamcinolone Acetonide 0.1 % Externally Twice a day apply thin layer to rash on abdomen twice daily 12h 05 days Active Latuda 40 mg Orally Once a day at supper 1 tablet with food Jan, 30 days Active Gabapentin 300 MG Orally 4 times a day as needed 1 capsule Jan, 30 days Active Atorvastatin Calcium 20 MG TAKE 1 TABLET BY MOUTH EVERY DAY 90 Active RESULTS No Results PROCEDURES Procedure Date Ordered Result Body Site LTD ORAL EVALUATION - PROBLEM FOCUS September 27, 2017 INSTRUCTIONS MEDICATIONS ADMINISTERED No Known Medications [...] Cancer Head and Neck 2004 Hospitalization History [facility] Admission 2016
--- OUTSIDE RECORDS SUMMARY | 2017-11-25 12:27 | XMS REPORT ---
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 Name Role Phone MICHELLE, DARCI Unavailable PROBLEMS Type Condition ICD9-CM Code NJJ26-DQ Code Onset Dates Condition Status SNOMED Code Problem Gastroesophageal reflux disease with esophagitis K21.0 Active 180554121 Problem Polysubstance (including opioids) dependence with physiol dependence F19.20 Active 48550251 Problem History of esophageal cancer Z85.01 Active 057620654 Problem Seasonal allergies J30.2 Active 782962255 Problem Pre-diabetes R73.03 Active 406467910 Problem GERD (gastroesophageal reflux disease) K21.9 Active 586940783 Problem Borderline personality disorder F60.3 Active 76157607 Problem Pure hypercholesterolemia E78.00 Active 598712194 Problem Nephrolithiasis N20.0 Active 68932095 Problem STATE HEP A (ADULT) DX V05.3 Active 515992990 Problem Bipolar 1 disorder, depressed, moderate F31.32 Active 41114671 Problem Anxiety F41.9 Active 96597790 Problem Vitamin D insufficiency E55.9 Active 420349018 Problem Essential hypertension I10 Active 89103015 Problem Elevated serum creatinine R79.89 Active 373592340 Problem Acquired hypothyroidism E03.9 Active 020610908 ALLERGIES No Information ENCOUNTERS Encounter Location Date Diagnosis [facility] [id number] [address] Jan, [facility] [id number] [place] [address] 19730- 6915 Dec, [facility] [address], [place] [address] 04 Dec, 2017 [facility] [id number] [address] Nov, Bipolar 1 disorder, depressed, moderate F31.32 [facility] [id number] [place] [address] 36185- 5733 Nov, [facility] [address] 372752- 4975 Nov, Bipolar 1 disorder, depressed, moderate F31.32 and Anxiety F41.9 [place] [address] 105453- 8174 Oct, Bipolar 1 disorder, depressed, moderate F31.32 ; Anxiety F41.9 ; Borderline personality disorder F60.3 ; Polysubstance (including opioids ) dependence with physiol dependence F19.20 and Other senior care (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 Z79.899 [place] [address] 79856- 1007 Oct, Bipolar 1 disorder, depressed, moderate F31.32 [facility] [address] [id number] Sep, Encounter for dental examination Z01.20 [place] [address] 29865- 3551 Sep, Acute oral pain K13.79 [place] [address] 20765- 3456 Sep, Bipolar 1 disorder, depressed, moderate F31.32 [place] [address] 36810- 4452 Sep, Bipolar 1 disorder, depressed, moderate F31.32 [place] [address] 27929- 7472 Sep, Bipolar 1 disorder, depressed, moderate F31.32 [place] [address] 99938- 5588 Sep, Essential hypertension I10 ; Acquired hypothyroidism E03.9 ; Anxiety F41.9 ; Chronic nausea R11.0 and Irritant contact dermatitis due to plants, except food L24.7 [place] [id number] [place] [address] 31510- 0958 Aug, Bipolar 1 disorder, depressed, moderate F31.32 [place] [id number] [place] [address] 72013- 4704 Aug, Bipolar 1 disorder, depressed, moderate F31.32 [place] [address] 659760- 9342 Aug, Bipolar 1 disorder, depressed, moderate F31.32 [place] [address] 40354- 4870 July, Candidal dermatitis B37.2 [place] [address] 58798- 3122 July, Acquired hypothyroidism E03.9 [place] [address] 27675- 6399 July, Bipolar 1 disorder, depressed, moderate F31.32 [facility] [address] 13915 -4024 July, Seasonal allergies J30.2 [place] [address] 72558- 3333 July, Bipolar 1 disorder, depressed, moderate F31.32 [place] [id number] [place] [address] 17463- 5598 Jun, Pre-diabetes R73.03 [place] [address] 27464- 0182 Jun, Bipolar 1 disorder, depressed, moderate F31.32 ; Anxiety F41.9 ; Borderline personality disorder F60.3 ; Polysubstance (including opioids ) dependence with physiol dependence F19.20 and Other specified abnormal findings of blood chemistry R79.89 [place] [id number] [place] [address] 84501- 1311 Jun, Bipolar 1 disorder, depressed, moderate F31.32 [place] [address] [place] [address] 48753- 4818 May, Bipolar 1 disorder, depressed, moderate F31.32 [place] [id number] [place] [address] May, Bipolar 1 disorder, depressed, moderate F31.32 [place] [id number] [place] [address] 47993- 1784 May, [place] [id number] [place] [address] 569858- 8398 May, [place] [address] 372756- 4024 May, Bipolar 1 disorder, depressed, moderate F31.32 [place] [id number] [place] [address] 43017- 2892 May, Bipolar 1 disorder, depressed, moderate F31.32 [place] [id number] [place] [address] 69728- 3600 May, Other specified abnormal findings of blood chemistry R79.89 [place] [id number] [place] [address] 5355 May, Essential hypertension I10 ; Acquired hypothyroidism E03.9 ; Gastroesophageal reflux disease with esophagitis K21.0 ; Hair loss L65.9 ; Hypokalemia, gastrointestinal losses E87.6 ; Pre-diabetes R73.03 ; Candidal dermatitis B37.2 and Pure hypercholesterolemia E78.00 [place] [id number] [place] [address] 56677- 1776 Apr, Bipolar 1 disorder, depressed, moderate F31.32 [place] [id number] [place] [address] 2439 Apr, Bipolar 1 disorder, depressed, moderate F31.32 [place] [id number] [place] [address] 86591- 5788 Apr, Bipolar 1 disorder, depressed, moderate F31.32 and Anxiety F41.9 [facility] [id number] [place] [address] 47833 -9336 Mar, Encounter for immunization Z23 ; Fall, initial encounter W19.XXXA ; Rib pain on left side R07.81 and Left hip pain M25.552 [facility] [address] 87382- 0302 Mar, Bipolar 1 disorder, depressed, moderate F31.32 and Anxiety F41.9 [place] [address] 15188- 7284 Mar, Bipolar 1 disorder, depressed, moderate F31.32 ; Anxiety F41.9 ; Borderline personality disorder F60.3 and Polysubstance (including opioids) dependence with physiol dependence F19.20 [place] [address] 51724- 4297 Mar, Bipolar 1 disorder, depressed, moderate F31.32 and Anxiety F41.9 [facility] [address] 08826 -7343 Feb, Irritant contact dermatitis, unspecified trigger L24.9 [facility] [id number] [place] [address] 07570- 4394 Feb, [place] [id number] [place] [address] 52509- 7804 Feb, [facility] [address] 02409- 8823 Feb, Bipolar 1 disorder, depressed, moderate F31.32 and Anxiety F41.9 [place] [address] 38967- 8595 Feb, Acute non-recurrent maxillary sinusitis J01.00 [facility] [address] 14514- 2474 Feb, [place] [address] [place] [address]- 5566 Feb, Bipolar 1 disorder, depressed, moderate F31.32 [facility] [id number] [place] [address] 61451- 9483 Jan, [facility] [id number] [place] [address] 34881- 1944 Jan, Bipolar 1 disorder, depressed, moderate F31.32 ; Anxiety F41.9 ; Borderline personality disorder F60.3 and Polysubstance (including opioids) dependence with physiol dependence F19.20 [facility] [id number] [place] [address] 51813- 4643 Jan, Bipolar 1 disorder, depressed, moderate F31.32 and Anxiety F41.9 [facility] [id number] [place] [address] 55661- 7943 Jan, Bipolar 1 disorder, depressed, moderate F31.32 ; Anxiety F41.9 ; Borderline personality disorder F60.3 and Polysubstance (including opioids) dependence with physiol dependence F19.20 [facility] [id number] [place] [address] 58190- 3858 Jan, Bipolar 1 disorder, depressed, moderate F31.32 and Anxiety F41.9 [facility] [address] [place] [address] 72329- 7492 Dec, Hypokalemia, gastrointestinal losses E87.6 ; GERD ( gastroesophageal reflux disease) K21.9 and Bipolar 1 disorder, depressed, moderate F31.32 [facility] [address] [place] [address] 50884- 6633 Dec, Bipolar 1 disorder, depressed, moderate F31.32 and Anxiety F41.9 [facility] [id number] [place] [address] 30641 -1852 Dec, [facility] [id number] [place] [address] 83291- 0360 Dec, [facility] [id number] [place] [address] 97294 -4046 Dec, Fall (on) (from) other stairs and steps, initial encounter W10.8XXA ; Laceration of left lower extremity, initial encounter S81.812A ; Contusion of right knee, initial encounter S80.01XA and Contusion of right shoulder, initial encounter S40.011A [address] 91041- 2165 Dec, Bipolar 1 disorder, depressed, moderate F31.32 ; Anxiety F41.9 ; Borderline personality disorder F60.3 and Polysubstance (including opioids) dependence with physiol dependence F19.[address] 16802- 3588 Dec, Bipolar 1 disorder, depressed, moderate F31.32 and Anxiety F41.[address] 17285- 6078 Dec, [address] 67286- 9248 Dec, Hospital discharge follow-up Z09 ; Nephrolithiasis N20.0 ; Essential hypertension I10 ; Gastroesophageal reflux disease with esophagitis K21.0 and Anxiety F41.[address] 73424- 7674 Nov, [facility] [address] 02509 -7735 Nov, Dysuria R30.0 and Acute cystitis with hematuria N30.01 [facility] [address] 14050 -5738 Nov, [address] 92599- 3770 Nov, [place] [address] 40417- 7848 Nov, Gastroesophageal reflux disease with esophagitis K21.0 ; Hypercholesteremia E78.00 and Acquired hypothyroidism E03.9 [facility] [address] 10839 -130 18 Nov, 2016 Left wrist pain M25.532 and Contusion of left wrist, initial encounter S60.212A [place] [address] 62442 747 18 Nov, 2016 Bipolar 1 disorder, depressed, moderate F31.32 ; Anxiety F41.9 ; Borderline personality disorder F60.3 and Polysubstance (including opioids) dependence with physiol dependence F19.20 [facility] [address] 47228 -7239 15 Nov, 2016 Abdominal pain R10.9 and GERD (gastroesophageal reflux disease) K21.9 [place] [address] 89019- 1939 12 Nov, 2016 Hypokalemia, gastrointestinal losses E87.6 [place] [address] 15905- 0695 11 Nov, 2016 Dehydration E86.0 ; Hypokalemia, gastrointestinal losses E87.6 and Vaginal candidiasis B37.3 [place] [address] [id number]- 8824 08 Nov, 2016 Abnormal weight loss R63.4 ; Diarrhea, unspecified R19.7 ; Vomiting, unspecified R11.10 ; Generalized abdominal pain R10.84 and Decreased breath sounds R06.89 [place] [address] 14188- 3985 Oct, Bipolar 1 disorder, depressed, moderate F31.32 and Anxiety F41.9 [place]3669- 8727 Sep, Bipolar 1 disorder, depressed, moderate F31.32 ; Anxiety F41.9 ; Borderline personality disorder F60.3 and Polysubstance (including opioids) dependence with physiol dependence F19.20 [place] [address] [place] [address]- 5678 Sep, Bipolar 1 disorder, depressed, moderate F31.32 and Anxiety F41.9 [place] [address] 57394- 1049 Sep, Bipolar 1 disorder, depressed, moderate F31.32 [place] [address] 69286- 1098 Sep, Bipolar 1 disorder, depressed, moderate F31.32 and Anxiety F41.9 [facility] [address] 88340 -4592 Sep, Pain of toe of right foot M79.674 [place] [address] 23712- 9172 Sep, [facility] [place] [address] 95416 -8979 Sep, Cellulitis of right ankle L03.115 [place] [address] 61694- 7848 Sep, Bipolar 1 disorder, depressed, moderate F31.32 and Anxiety F41.9 [place] [id number] [place] [address] 80125- 0157 Sep, [place] [id number] [place] [address] 25555- 6087 Sep, [place] [address] 17126- 7972 Sep, Bipolar 1 disorder, depressed, moderate F31.32 and Anxiety F41.9 [place] [address] 51735- 3068 Sep, Accidental spider bite T63.301A [place] [id number] [place] [address] 45114- 3609 Aug, Bipolar 1 disorder, depressed, moderate F31.32 ; Anxiety F41.9 ; Borderline personality disorder F60.3 and Polysubstance (including opioids) dependence with physiol dependence F19.20 [place] [address] 71105- 9666 Aug, [place] [address] 71891- 0971 Aug, Bipolar 1 disorder, depressed, moderate F31.32 and Anxiety F41.9 [place] [address] 94213- 9510 Aug, Pre-diabetes R73.03 ; Acute seasonal allergic rhinitis due to pollen J30.1 ; Hypercholesteremia E78.00 and Nausea R11.0 [place] [address] 19425- 4284 Aug, [place] [address] 36082- 5823 Aug, Bipolar 1 disorder, depressed, moderate F31.32 and Anxiety F41.9 [facility] [address] 89284- 6496 08 Aug, 2016 [facility] [address] 87389- 2327 Aug, [place] [address] 92834- 7317 Aug, [facility] [address] 70569- 3903 Aug, Bipolar 1 disorder, depressed, moderate F31.32 and Anxiety F41.9 [facility] [address] 73965- 1495 Aug, [facility] [address] 23498 -1107 Aug, Insect bite, initial encounter W57.XXXA and Cellulitis of left lower leg L03.116 [place] [address] 84165- 3282 Aug, Bipolar 1 disorder, depressed, moderate F31.32 and Borderline personality disorder F60.3 [place] [id number] [place] [address] 97128- 5399 July, [place] [id number] [place] [address] 63376- 4614 July, [place] [address] 69496- 3749 July, Encounter for routine adult health examination with abnormal findings Z00.01 ; History of esophageal cancer Z85.01 ; Bipolar 1 disorder, depressed, moderate F31.32 ; Anxiety F41.9 ; Acquired hypothyroidism E03.9 ; Essential hypertension I10 ; Gastroesophageal reflux disease with esophagitis K21.0 and Encounter for immunization Z23 [place] [address] 82111- 4092 July, Bipolar 1 disorder, depressed, moderate F31.32 and Anxiety F41.9 [place] [id number] [place] [address] 94286- 4465 July, [place] [address] 64534- 5129 July, Bipolar 1 disorder, depressed, moderate F31.32 and Anxiety F41.9 [place] [id number] [place] [address] 64569- 7999 July, Bipolar 1 disorder, depressed, moderate F31.32 [place] [id number] [place] [address] 31769- 2730 July, Bipolar 1 disorder, depressed, moderate F31.32 and Anxiety F41.9 [place] [id number] [place] [address] 45714- 3286 Jun, Bipolar 1 disorder, depressed, moderate F31.32 [place] [id number] [place] [address] 38687- 6732 Jun, Bipolar 1 disorder, depressed, moderate F31.32 and Borderline personality disorder F60.3 [facility] [id number] [place] [address] 10181- 3615 Jun, Bipolar 1 disorder, depressed, moderate F31.32 [facility] [id number] [place] [address]- 8226 Jun, Bipolar 1 disorder, depressed, moderate F31.32 [facility] [id number] [place] [address] 71650- 2454 May, Bipolar 1 disorder, depressed, moderate F31.32 and Anxiety F41.9 [place] [id number] [place] [address]- 2273 May, Bipolar 1 disorder, depressed, moderate F31.32 and Anxiety F41.9 [place] [id number] [place] [address] 50174- 7179 May, Bipolar 1 disorder, depressed, moderate F31.32 and Anxiety F41.9 [place] [id number] [place] [address] 56993- 9547 May, Bipolar 1 disorder, depressed, moderate F31.32 and Borderline personality disorder F60.3 [place] [id number] [place] [address] 58684- 4989 14 May, 2016 [place] [id number] [place] [address] 53350- 0650 May, Bipolar 1 disorder, depressed, moderate F31.32 and Anxiety F41.9 [facility] [address] [place] [address] 08341- 2848 09 May, 2016 Bipolar 1 disorder, depressed, moderate F31.32 and Anxiety F41.9 [facility] [id number] [place] [address] 67323- 4754 06 May, 2016 [facility] [id number] [place] [address] 35356- 2297 May, Bipolar 1 disorder, depressed, moderate F31.32 [place] [address] [place] [address] 86809- 0651 May, Bipolar 1 disorder, depressed, moderate F31.32 and Generalized anxiety disorder F41.1 [facility] [id number] [place] [address]- 4452 Apr, Bipolar 1 disorder, depressed, moderate F31.32 and Anxiety F41.9 [place] [id number] [place] [address] 56851- 6788 Apr, [place] [address] 077756- 8012 Apr, Bipolar 1 disorder, depressed, moderate F31.32 and Anxiety F41.9 [place] [id number] [place] [address] 07016- 9949 09 Apr, 2016 Bipolar 1 disorder, depressed, moderate F31.32 and Anxiety F41.9 [place] [id number] [place] [address] 10885- 9559 Apr, Bipolar affective disorder, depressed, severe F31.4 and Generalized anxiety disorder F41.1 [place] [id number] [place] [address] 67561- 6682 Mar, Bipolar 1 disorder, depressed, moderate F31.32 and Anxiety F41.9 [place] [id number] [place] [address] 19502- 4078 Mar, Bipolar 1 disorder, depressed, moderate F31.32 and Anxiety F41.9 [place] [id number] [place] [address] 02218- 1331 Mar, Bipolar 1 disorder, mixed, moderate F31.62 [place] [address] [id number] [place] [address] 80267- 0839 Mar, [place] [id number] [place] [address] 65732- 8715 Mar, Bipolar 1 disorder, mixed, moderate F31.62 ; Generalized anxiety disorder F41.1 and 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 (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 Z79.899 [facility] [id number] [place] [address] 49672- 5257 Feb, Bipolar 1 disorder, depressed, moderate F31.32 and Anxiety F41.9 [facility] [id number] [place] [address] 54972- 3601 Feb, Bipolar 1 disorder, depressed, moderate F31.32 and 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 (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 Z79.899 [facility] [id number] [place] [address] 19455- 4677 Feb, [facility] [id number] [place] [address] 04910- 7000 Feb, Bipolar 1 disorder, depressed, moderate F31.32 and Anxiety F41.9 [facility] [id number] [place] [address] 74024- 5525 Feb, Bipolar 1 disorder, depressed, moderate F31.32 and 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 (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 Z79.899 [facility] [id number] [place] [address] 32676- 2598 Feb, Bipolar 1 disorder, depressed, moderate F31.32 and Anxiety F41.9 [facility] [id number] [place] [address] 10554- 0690 Dec, Bipolar 1 disorder, depressed, moderate F31.32 and Anxiety F41.9 [facility] [id number] [place] [address] 00805- 5554 Oct, [facility] [id number] [place] [address] 70293- 1120 Oct, [facility] [id number] [place] [address] 91076- 6134 May, [facility] [id number] [place] [address] 92709- 6859 May, [facility] [address] [facility] [id number] [place] [address]- 2451 Mar, [facility] [address] [facility] [id number] [place] [address]- 1218 Mar, IMMUNIZATIONS No Known Immunizations SOCIAL HISTORY Never Assessed REASON FOR VISIT med refill PLAN OF CARE VITAL SIGNS MEDICATIONS Medication Instructions Dosage Frequency Start Date End Date Duration Status Gabapentin 300 MG Orally 4 times a day as needed 1 capsule Jan, 30 days Active RESULTS [...] Cancer Head and Neck 2004 Hospitalization History [facility] Admission 2015
--- OUTSIDE RECORDS SUMMARY | 2017-11-25 12:28 | XMS REPORT ---
Author Author GURINDER NORTON Organization [facility] Address [address] [place] [address] Care Team Providers Care Interior Design Program Chair Name Role Phone GURINDER NORTON Unavailable PROBLEMS Type Condition ICD9-CM Code NKS02-WC Code Onset Dates Condition Status SNOMED Code Problem Gastroesophageal reflux disease with esophagitis K21.0 Active 401374859 Problem Polysubstance (including opioids) dependence with physiol dependence F19.20 Active 87105789 Problem History of esophageal cancer Z85.01 Active 333251287 Problem Seasonal allergies J30.2 Active 112669755 Problem Pre-diabetes R73.03 Active 445958706 Problem GERD (gastroesophageal reflux disease) K21.9 Active 138163313 Problem Borderline personality disorder F60.3 Active 23868669 Problem Pure hypercholesterolemia E78.00 Active 624884351 Problem Nephrolithiasis N20.0 Active 65379227 Problem STATE HEP A (ADULT) DX V05.3 Active 123503483 Problem Bipolar 1 disorder, depressed, moderate F31.32 Active 64091641 Problem Anxiety F41.9 Active 08170014 Problem Vitamin D insufficiency E55.9 Active 341843421 Problem Essential hypertension I10 Active 00958726 Problem Elevated serum creatinine R79.89 Active 057207963 Problem Acquired hypothyroidism E03.9 Active 392713000 ALLERGIES No Information ENCOUNTERS Encounter Location Date Diagnosis [facility] [id number] [address] Jan, [facility] [address] [place] [address] 71544- 5492 Dec, [facility] [address] [address] Dec, [facility] [id number] [address] 13 Nov, 2017 [facility] [address] [place] [address] 99739- 5829 Nov, Bipolar 1 disorder, depressed, moderate F31.32 and Anxiety F41.9 [facility] [id number] [place] [address] 24437- 2546 Oct, Bipolar 1 disorder, depressed, moderate F31.32 ; Anxiety F41.9 ; Borderline personality disorder F60.3 ; Polysubstance (including opioids ) dependence with physiol dependence F19.20 and Other jail (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 Z79.899 [facility] [address] [address]- [address]133 Oct, Bipolar 1 disorder, depressed, moderate F31.32 [facility] [id number] [place] [address] [id number] Sep, Encounter for dental examination Z01.20 [facility] [address] 16587- 6057 Sep, Acute oral pain K13.79 [facility] [address] 96397- 6755 Sep, Bipolar 1 disorder, depressed, moderate F31.32 [facility] [id number] [place] [address] 89748- 8696 Sep, Bipolar 1 disorder, depressed, moderate F31.32 [facility] [id number] [place] [address] 80318- 5549 Sep, Bipolar 1 disorder, depressed, moderate F31.32 [facility] [id number] [place] [address] 09725- 6339 Sep, Essential hypertension I10 ; Acquired hypothyroidism E03.9 ; Anxiety F41.9 ; Chronic nausea R11.0 and Irritant contact dermatitis due to plants, except food L24.7 [facility] [id number] [place] [address] 08062- 5909 Aug, Bipolar 1 disorder, depressed, moderate F31.32 [place] [id number] [place] [address] 60466- 0706 Aug, Bipolar 1 disorder, depressed, moderate F31.32 [place] [address] 62239- 7054 Aug, Bipolar 1 disorder, depressed, moderate F31.32 [place] [address] 73591- 8318 July, Candidal dermatitis B37.2 [place] [address] 74666- 7624 July, Acquired hypothyroidism E03.9 [place] [address] 16211- 4831 July, Bipolar 1 disorder, depressed, moderate F31.32 [facility] [place] [address] 15447 -6405 July, Seasonal allergies J30.2 [place] [address] 91646- 0147 July, Bipolar 1 disorder, depressed, moderate F31.32 [place] [address] 65433- 6033 Jun, Pre-diabetes R73.03 [place] [address] 28428- 7117 Jun, Bipolar 1 disorder, depressed, moderate F31.32 ; Anxiety F41.9 ; Borderline personality disorder F60.3 ; Polysubstance (including opioids ) dependence with physiol dependence F19.20 and Other specified abnormal findings of blood chemistry R79.89 [place] [address] 04110- 1365 Jun, Bipolar 1 disorder, depressed, moderate F31.32 [place] [address] 47811- 9564 May, Bipolar 1 disorder, depressed, moderate F31.32 [place] [id number] [place] [address] 60584- 8025 May, Bipolar 1 disorder, depressed, moderate F31.32 [place] [address] 31776- 9255 May, [place] [address] 25168- 3511 May, [place] [address] 283693- 9376 May, Bipolar 1 disorder, depressed, moderate F31.32 [place] [address] 2836[address] 1195 May, Bipolar 1 disorder, depressed, moderate F31.32 [place] [address] 36907- 4928 May, Other specified abnormal findings of blood chemistry R79.89 [place] [address] 37406- 6300 May, Essential hypertension I10 ; Acquired hypothyroidism E03.9 ; Gastroesophageal reflux disease with esophagitis K21.0 ; Hair loss L65.9 ; Hypokalemia, gastrointestinal losses E87.6 ; Pre-diabetes R73.03 ; Candidal dermatitis B37.2 and Pure hypercholesterolemia E78.00 [place] [id number] [place] [address] 29402- 0280 Apr, Bipolar 1 disorder, depressed, moderate F31.32 [place] [id number] [place] [address] 11537- 4356 Apr, Bipolar 1 disorder, depressed, moderate F31.32 [place] [address] 51153- 4680 Apr, Bipolar 1 disorder, depressed, moderate F31.32 and Anxiety F41.9 [facility] [address] 25047 -2841 Mar, Encounter for immunization Z23 ; Fall, initial encounter W19.XXXA ; Rib pain on left side R07.81 and Left hip pain M25.552 [facility] [address] 93339- 7544 Mar, Bipolar 1 disorder, depressed, moderate F31.32 and Anxiety F41.9 [place] [address] 21490- 8441 Mar, Bipolar 1 disorder, depressed, moderate F31.32 ; Anxiety F41.9 ; Borderline personality disorder F60.3 and Polysubstance (including opioids) dependence with physiol dependence F19.20 [place] [address] 23813- 5212 Mar, Bipolar 1 disorder, depressed, moderate F31.32 and Anxiety F41.9 [facility] [address] 76623 -7972 Feb, Irritant contact dermatitis, unspecified trigger L24.9 [facility] [address] 17150- 6092 Feb, [place] [address] 49954- 1401 Feb, [place] [address] 27281- 8616 Feb, Bipolar 1 disorder, depressed, moderate F31.32 and Anxiety F41.9 [facility] [address] 62844- 6502 Feb, Acute non-recurrent maxillary sinusitis J01.00 [facility] [address] 50452- 7941 Feb, [facility] [address] 21615- 3942 Feb, Bipolar 1 disorder, depressed, moderate F31.32 [place] [address] 58178- 1648 Jan, [place] [id number] [place] [address] Jan, Bipolar 1 disorder, depressed, moderate F31.32 ; Anxiety F41.9 ; Borderline personality disorder F60.3 and Polysubstance (including opioids) dependence with physiol dependence F19.20 [place] [address] 801419- 3303 Jan, Bipolar 1 disorder, depressed, moderate F31.32 and Anxiety F41.9 [place] [id number] [place] [address] 164869- 6814 Jan, Bipolar 1 disorder, depressed, moderate F31.32 ; Anxiety F41.9 ; Borderline personality disorder F60.3 and Polysubstance (including opioids) dependence with physiol dependence F19.20 [place] [id number] [place] [address] 60762- 8328 Jan, Bipolar 1 disorder, depressed, moderate F31.32 and Anxiety F41.9 [place] [id number] [place] [address] 30853- 8704 Dec, Hypokalemia, gastrointestinal losses E87.6 ; GERD ( gastroesophageal reflux disease) K21.9 and Bipolar 1 disorder, depressed, moderate F31.32 [place] [id number] [place] [address] 57288- 5407 Dec, Bipolar 1 disorder, depressed, moderate F31.32 and Anxiety F41.9 [facility] [id number] [place] [address] 35659 -5310 Dec, [place] [address] 79614- 6246 Dec, [facility] [id number] [place] [address] 92830 -9357 Dec, Fall (on) (from) other stairs and steps, initial encounter W10.8XXA ; Laceration of left lower extremity, initial encounter S81.812A ; Contusion of right knee, initial encounter S80.01XA and Contusion of right shoulder, initial encounter S40.011A [place] [address] 99466- 2827 Dec, Bipolar 1 disorder, depressed, moderate F31.32 ; Anxiety F41.9 ; Borderline personality disorder F60.3 and Polysubstance (including opioids) dependence with physiol dependence F19.20 [place] [address] 39778- 1040 Dec, Bipolar 1 disorder, depressed, moderate F31.32 and Anxiety F41.9 [place] [address] 29013- 3053 Dec, [place] [address] 22510- 6078 Dec, Hospital discharge follow-up Z09 ; Nephrolithiasis N20.0 ; Essential hypertension I10 ; Gastroesophageal reflux disease with esophagitis K21.0 and Anxiety F41.9 [place] [address] 65928- 2126 Nov, [facility] [address] 71886 -0787 Nov, Dysuria R30.0 and Acute cystitis with hematuria N30.01 [facility] [address] 64675 -1448 Nov, [facility] [address] 87378- 0809 Nov, [place] [address] 55393- 4828 Nov, Gastroesophageal reflux disease with esophagitis K21.0 ; Hypercholesteremia E78.00 and Acquired hypothyroidism E03.9 [facility] [address] 44885 -8467 18 Nov, 2016 Left wrist pain M25.532 and Contusion of left wrist, initial encounter S60.212A [place] [id number] [place] [address] 38189- 5531 18 Nov, 2016 Bipolar 1 disorder, depressed, moderate F31.32 ; Anxiety F41.9 ; Borderline personality disorder F60.3 and Polysubstance (including opioids) dependence with physiol dependence F19.20 [facility] [address] 716419 -1553 15 Nov, 2016 Abdominal pain R10.9 and GERD (gastroesophageal reflux disease) K21.9 [place] [address] 052879- 5190 12 Nov, 2016 Hypokalemia, gastrointestinal losses E87.6 [place] [address] 68126- 1708 11 Nov, 2016 Dehydration E86.0 ; Hypokalemia, gastrointestinal losses E87.6 and Vaginal candidiasis B37.3 [place] [id number] [place] [address] 80434- 9719 08 Nov, 2016 Abnormal weight loss R63.4 ; Diarrhea, unspecified R19.7 ; Vomiting, unspecified R11.10 ; Generalized abdominal pain R10.84 and Decreased breath sounds R06.89 [place] [id number] [place] [address] 20266- 1807 Oct, Bipolar 1 disorder, depressed, moderate F31.32 and Anxiety F41.9 [place] [id number] [place] [address] 89894- 1263 Sep, Bipolar 1 disorder, depressed, moderate F31.32 ; Anxiety F41.9 ; Borderline personality disorder F60.3 and Polysubstance (including opioids) dependence with physiol dependence F19.20 [facility] [id number] [place] [address] 71486- 5050 27 Sep, 2016 Bipolar 1 disorder, depressed, moderate F31.32 and Anxiety F41.9 [place] [address] [place] [address]- 4035 Sep, Bipolar 1 disorder, depressed, moderate F31.32 [place] [address] 87588- 8068 Sep, Bipolar 1 disorder, depressed, moderate F31.32 and Anxiety F41.9 [facility] [address] 77204 -0937 Sep, Pain of toe of right foot M79.674 [place] [address] 61242- 0752 Sep, [facility] [place] [address] 28450 -8077 Sep, Cellulitis of right ankle L03.115 [place] [address] 23309- 2131 Sep, Bipolar 1 disorder, depressed, moderate F31.32 and Anxiety F41.9 [place] [id number] [place] [address] 08398- 1465 Sep, [place] [address] 58208- 5255 Sep, [place] [address] 81398- 0744 Sep, Bipolar 1 disorder, depressed, moderate F31.32 and Anxiety F41.9 [place] [id number] [place] [address] 11217- 9499 Sep, Accidental spider bite T63.301A [place] [address] 06595- 2476 Aug, Bipolar 1 disorder, depressed, moderate F31.32 ; Anxiety F41.9 ; Borderline personality disorder F60.3 and Polysubstance (including opioids) dependence with physiol dependence F19.20 [place] [address] 14859- 7546 Aug, [place] [address] [place] [address] 69608- 6684 Aug, Bipolar 1 disorder, depressed, moderate F31.32 and Anxiety F41.9 [place] [id number] [place] [address] 94324- 9377 Aug, Pre-diabetes R73.03 ; Acute seasonal allergic rhinitis due to pollen J30.1 ; Hypercholesteremia E78.00 and Nausea R11.0 [place] [address] 24653- 6404 Aug, [place] [address] 01162- 8834 Aug, Bipolar 1 disorder, depressed, moderate F31.32 and Anxiety F41.9 [place] [address] 97103- 2918 08 Aug, 2016 [facility] [address] 00034- 3625 Aug, [place] [address] 08331- 9623 Aug, [place] [address] 97743- 5476 Aug, Bipolar 1 disorder, depressed, moderate F31.32 and Anxiety F41.9 [place] [address] 72240- 0724 Aug, [facility] [address] 92649 -1794 03 Aug, 2016 Insect bite, initial encounter W57.XXXA and Cellulitis of left lower leg L03.116 [place] [address] 93264- 1191 Aug, Bipolar 1 disorder, depressed, moderate F31.32 and Borderline personality disorder F60.3 [place] [address] 79968- 5844 July, [place] [address] 56355- 9362 July, [place] [address] [place] 283692- 793 July, Encounter for routine adult health examination with abnormal findings Z00.01 ; History of esophageal cancer Z85.01 ; Bipolar 1 disorder, depressed, moderate F31.32 ; Anxiety F41.9 ; Acquired hypothyroidism E03.9 ; Essential hypertension I10 ; Gastroesophageal reflux disease with esophagitis K21.0 and Encounter for immunization Z23 [place] [address] 87649- 2519 July, Bipolar 1 disorder, depressed, moderate F31.32 and Anxiety F41.[address] 61035- 8592 July, [place] [address] 24125- 8239 July, Bipolar 1 disorder, depressed, moderate F31.32 and Anxiety F41.[address] 78865- 0951 July, Bipolar 1 disorder, depressed, moderate F31.32 [place] [address] 85722- 3203 July, Bipolar 1 disorder, depressed, moderate F31.32 and Anxiety F41.9 [place] [address] 72511- 7621 Jun, Bipolar 1 disorder, depressed, moderate F31.[address] 23451- 2281 Jun, Bipolar 1 disorder, depressed, moderate F31.32 and Borderline personality disorder F60.[address] 06914- 6768 Jun, Bipolar 1 disorder, depressed, moderate F31.32 [facility] [address] [place] [address] 37578- 9612 Jun, Bipolar 1 disorder, depressed, moderate F31.32 [facility] [id number] [place] [address]- 1216 May, Bipolar 1 disorder, depressed, moderate F31.32 and Anxiety F41.9 [facility] [id number] [place]- 1560 May, Bipolar 1 disorder, depressed, moderate F31.32 and Anxiety F41.9 [facility] [id number] [place] [address] 619935- 6988 May, Bipolar 1 disorder, depressed, moderate F31.32 and Anxiety F41.9 [facility] [id number] [place] [address] 51748- 0448 May, Bipolar 1 disorder, depressed, moderate F31.32 and Borderline personality disorder F60.3 [facility] [id number] [place] [address] 78123- 7086 May, [facility] [id number] [place] [address] 68108- 2581 May, Bipolar 1 disorder, depressed, moderate F31.32 and Anxiety F41.9 [facility] [address] [place] [address] 86453- 5397 May, Bipolar 1 disorder, depressed, moderate F31.32 and Anxiety F41.9 [facility] [address] [place] [address] 86352- 4847 May, [facility] [id number] [place] [address] 89860- 1046 May, Bipolar 1 disorder, depressed, moderate F31.32 [facility] [id number] [place] [address] 26324- 4287 May, Bipolar 1 disorder, depressed, moderate F31.32 and Generalized anxiety disorder F41.1 [place] [address] [place] [address] 22422- 8477 28 Apr, 2016 Bipolar 1 disorder, depressed, moderate F31.32 and Anxiety F41.9 [place] [address] [place] [address] 82394- 0449 27 Apr, 2016 [place] [address] [place] [address] 08146- 5145 13 Apr, 2016 Bipolar 1 disorder, depressed, moderate F31.32 and Anxiety F41.9 [place] [address] [place] [address] 35442- 3352 09 Apr, 2016 Bipolar 1 disorder, depressed, moderate F31.32 and Anxiety F41.9 [place] [address] [place] [address] 44465- 8977 07 Apr, 2016 Bipolar affective disorder, depressed, severe F31.4 and Generalized anxiety disorder F41.1 [place] [address] [place] [address] 14200- 5951 Mar, Bipolar 1 disorder, depressed, moderate F31.32 and Anxiety F41.9 [place] [address] [place] [address] 61160- 7226 Mar, Bipolar 1 disorder, depressed, moderate F31.32 and Anxiety F41.9 [place] [address] [place] [address] 23183- 9345 Mar, Bipolar 1 disorder, mixed, moderate F31.62 [place] [id number] [place] [address] 10629- 4125 Mar, [place] [address] [place] [address] 83430- 4887 Mar, Bipolar 1 disorder, mixed, moderate F31.62 ; Generalized anxiety disorder F41.1 and 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 [place] [id number] [place] [address] 08868- 7857 Feb, Bipolar 1 disorder, depressed, moderate F31.32 and Anxiety F41.9 [facility] [id number] [place] [address] 802268- 7630 Feb, Bipolar 1 disorder, depressed, moderate F31.32 and Other jail (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 Z79.899 [facility] [id number] [place] [address] 06694- 8684 Feb, [facility] [id number] [place] [address] 14473- 3775 Feb, Bipolar 1 disorder, depressed, moderate F31.32 and Anxiety F41.9 [facility] [id number] [place] [address] 81773- 8763 Feb, Bipolar 1 disorder, depressed, moderate F31.32 and Other jail (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 Z79.899 [facility] [id number] [place] [address] 70045- 3095 Feb, Bipolar 1 disorder, depressed, moderate F31.32 and Anxiety F41.9 [facility] [id number] [place] [address] 73768- 2889 Dec, Bipolar 1 disorder, depressed, moderate F31.32 and Anxiety F41.9 [facility] [id number] [place] [address] 58390- 5481 Oct, [facility] [id number] [place] [address] 72858- 0088 Oct, [facility] [id number] [place] [address] 57954- 6294 May, [facility] [id number] [place] [address] 99999- 9620 May, [facility] [id number] [place] [address] 78061- 7989 Mar, [facility] [id number] [place] [address] 00163- 2546 Mar, IMMUNIZATIONS No Known Immunizations SOCIAL HISTORY Never Assessed REASON FOR VISIT Follow-up Depression PLAN OF CARE Activity Details Follow Up 3 Weeks Reason: Follow-up VITAL SIGNS MEDICATIONS Unknown Medications RESULTS No Results PROCEDURES Procedure Date Ordered Result Body Site [facility] VISIT MENTAL HEALTH ESTAB PT September 26, 2017 Psychotherapy, patient &/family, 30 minutes, established patient September 26, 2017 INSTRUCTIONS MEDICATIONS ADMINISTERED No Known Medications [...] Cancer Head and Neck 2004 Hospitalization History [facility] Psychiatric Admission 2015
--- OUTSIDE RECORDS SUMMARY | 2017-11-25 12:28 | XMS REPORT ---
Author Author AGAPITO HART [facility] Address [address] [place] [address] Care Team Providers Care Fuel Handler Name Role Phone HARTAGAPITO Unavailable PROBLEMS Type Condition ICD9-CM Code XYS12-SK Code Onset Dates Condition Status SNOMED Code Problem Gastroesophageal reflux disease with esophagitis K21.0 Active 891545059 Problem Polysubstance (including opioids) dependence with physiol dependence F19.20 Active 61978920 Problem History of esophageal cancer Z85.01 Active 017860481 Problem Seasonal allergies J30.2 Active 804162592 Problem Pre-diabetes R73.03 Active 039716291 Problem GERD (gastroesophageal reflux disease) K21.9 Active 799574892 Problem Borderline personality disorder F60.3 Active 55480574 Problem Pure hypercholesterolemia E78.00 Active 213805380 Problem Nephrolithiasis N20.0 Active 84980302 Problem STATE HEP A (ADULT) DX V05.3 Active 476935829 Problem Bipolar 1 disorder, depressed, moderate F31.32 Active 30206152 Problem Anxiety F41.9 Active 44607267 Problem Vitamin D insufficiency E55.9 Active 743510112 Problem Essential hypertension I10 Active 24706605 Problem Elevated serum creatinine R79.89 Active 300932226 Problem Acquired hypothyroidism E03.9 Active 453240451 ALLERGIES Substance Reaction Event Type Date Status Adhesive Tape Rash Drug Allergy Sep, Active Zolpidem Tartrate Client OVERDOSE Drug Allergy Sep, Active Penicillamine Hives Drug Allergy Sep, Active Codeine Sulfate Nausea and Vomitting Drug Allergy Sep, Active ENCOUNTERS Encounter Location Date Diagnosis [facility] [address] [facility] [id number] [address] Jan, [facility] [address] [facility] [id number], [place] [address] Dec, [facility] [address] [place] [id number] [place] [address] 64310- 0200 Dec, [facility] [address] 25642- 4970 Nov, [facility] [address] [place] [id number]- [address]34 Nov, Bipolar 1 disorder, depressed, moderate F31.32 and Anxiety F41.9 [facility] [address] 00249- 5417 Oct, Bipolar 1 disorder, depressed, moderate F31.32 ; Anxiety F41.9 ; Borderline personality disorder F60.3 ; Polysubstance (including opioids ) dependence with physiol dependence F19.20 and Other superintendent container terminal (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 Z79.899 [place] [address] 8[address]65- 8329 Oct, Bipolar 1 disorder, depressed, moderate F31.32 [facility] [address] [id number] Sep, Encounter for dental examination Z01.20 [facility] [address] 7[address]97- 1814 Sep, Acute oral pain K13.79 [facility] [address] 34469- 2506 Sep, Bipolar 1 disorder, depressed, moderate F31.32 [facility] [address] [address] [id number] [place] [address] 10200- 2433 Sep, Bipolar 1 disorder, depressed, moderate F31.32 [facility] [address] 88054- 8845 Sep, Bipolar 1 disorder, depressed, moderate F31.32 [facility] [address] 00757- 5483 Sep, Essential hypertension I10 ; Acquired hypothyroidism E03.9 ; Anxiety F41.9 ; Chronic nausea R11.0 and Irritant contact dermatitis due to plants, except food L24.7 [place] [address] [id number] [place] [address] 18641- 0728 Aug, Bipolar 1 disorder, depressed, moderate F31.32 [facility] [id number] [place] [address] 25180- 6425 Aug, Bipolar 1 disorder, depressed, moderate F31.32 [place] [address] 66418- 1998 Aug, Bipolar 1 disorder, depressed, moderate F31.32 [place] [address] [id number] [place] [address] 49172- 9745 July, Candidal dermatitis B37.2 [place] [address] [id number] [place] [address] 59382- 8713 July, Acquired hypothyroidism E03.[address] 17924- 5277 July, Bipolar 1 disorder, depressed, moderate F31.32 [facility] [id number] [place] [address] 68930 -8757 July, Seasonal allergies J30.2 [place] [address] [address] [id number] [place] [address] 06351- 9680 July, Bipolar 1 disorder, depressed, moderate F31.32 [place] [address] [id number] [place] [address] 79393- 6973 Jun, Pre-diabetes R73.03 [place] [address] [id number] [place] [address] 96220- 6968 Jun, Bipolar 1 disorder, depressed, moderate F31.32 ; Anxiety F41.9 ; Borderline personality disorder F60.3 ; Polysubstance (including opioids ) dependence with physiol dependence F19.20 and Other specified abnormal findings of blood chemistry R79.89 [place] [id number] [place] [address] 88940- 8883 Jun, Bipolar 1 disorder, depressed, moderate F31.32 [place] [address] [address] [id number] [place] [address] 64378- 2106 May, Bipolar 1 disorder, depressed, moderate F31.32 [place] [address] [address] [id number] [place] [address] May, Bipolar 1 disorder, depressed, moderate F31.32 [place] [address] 000719- 5547 May, [place] [address] 921849- 7517 May, [place] [address] [place] 865234- 1003 May, Bipolar 1 disorder, depressed, moderate F31.32 [place] [address] 12548- 8790 May, Bipolar 1 disorder, depressed, moderate F31.32 [place] [address] [id number] [place] [address] 08672- 6579 May, Other specified abnormal findings of blood chemistry R79.89 [place] [address] [place] [id number]- 9161 May, Essential hypertension I10 ; Acquired hypothyroidism E03.9 ; Gastroesophageal reflux disease with esophagitis K21.0 ; Hair loss L65.9 ; Hypokalemia, gastrointestinal losses E87.6 ; Pre-diabetes R73.03 ; Candidal dermatitis B37.2 and Pure hypercholesterolemia E78.00 [place] [address] [address] [id number] [place] [address] 35421- 8120 Apr, Bipolar 1 disorder, depressed, moderate F31.32 [place] [address] [id number] [place] [address] Apr, Bipolar 1 disorder, depressed, moderate F31.32 [place] [address] 30975- 8170 Apr, Bipolar 1 disorder, depressed, moderate F31.32 and Anxiety F41.9 [facility] [address] [address] -[address]68 Mar, Encounter for immunization Z23 ; Fall, initial encounter W19.XXXA ; Rib pain on left side R07.81 and Left hip pain M25.552 [facility] [address] 86451- 4702 Mar, Bipolar 1 disorder, depressed, moderate F31.32 and Anxiety F41.9 [place] [address] 08802- 6892 Mar, Bipolar 1 disorder, depressed, moderate F31.32 ; Anxiety F41.9 ; Borderline personality disorder F60.3 and Polysubstance (including opioids) dependence with physiol dependence F19.20 [place] [address] 65929- 9778 Mar, Bipolar 1 disorder, depressed, moderate F31.32 and Anxiety F41.9 [facility] [address] 89056 -8789 Feb, Irritant contact dermatitis, unspecified trigger L24.9 [place] [address] 51240- 3070 Feb, [place] [address] 33235- 4252 Feb, [place] [address] 19146- 0768 Feb, Bipolar 1 disorder, depressed, moderate F31.32 and Anxiety F41.9 [place] [address] 60329- 1189 Feb, Acute non-recurrent maxillary sinusitis J01.00 [place] [address] 46950- 2752 Feb, [place] [address] [place] [id number] [place] [address] 26625- 2626 Feb, Bipolar 1 disorder, depressed, moderate F31.32 [place] [address] 96497- 0146 Jan, [facility] [address] [address] [id number] [place] [address] 93743- 0326 Jan, Bipolar 1 disorder, depressed, moderate F31.32 ; Anxiety F41.9 ; Borderline personality disorder F60.3 and Polysubstance (including opioids) dependence with physiol dependence F19.20 [place] [address] 37094- 2362 Jan, Bipolar 1 disorder, depressed, moderate F31.32 and Anxiety F41.9 [place] [address] 70037- 8570 Jan, Bipolar 1 disorder, depressed, moderate F31.32 ; Anxiety F41.9 ; Borderline personality disorder F60.3 and Polysubstance (including opioids) dependence with physiol dependence F19.20 [place] [address] [place] [id number] [place] [address] 83767- 5451 Jan, Bipolar 1 disorder, depressed, moderate F31.32 and Anxiety F41.9 [place] [address] [id number] [place] [address] 22736- 8474 Dec, Hypokalemia, gastrointestinal losses E87.6 ; GERD ( gastroesophageal reflux disease) K21.9 and Bipolar 1 disorder, depressed, moderate F31.32 [place] [address] [id number] [place] [address] 48251- 2936 Dec, Bipolar 1 disorder, depressed, moderate F31.32 and Anxiety F41.9 [facility] [id number] [place] [address] 43949 -5582 Dec, [place] [address] [id number] [place] [address] 94993- 1844 Dec, [facility] [id number] [place] [address] 23143 -7098 Dec, Fall (on) (from) other stairs and steps, initial encounter W10.8XXA ; Laceration of left lower extremity, initial encounter S81.812A ; Contusion of right knee, initial encounter S80.01XA and Contusion of right shoulder, initial encounter S40.011A [address] 23958- 2774 Dec, Bipolar 1 disorder, depressed, moderate F31.32 ; Anxiety F41.9 ; Borderline personality disorder F60.3 and Polysubstance (including opioids) dependence with physiol dependence F19.[address] 65883 6702 Dec, Bipolar 1 disorder, depressed, moderate F31.32 and Anxiety F41.[address] 44884- 5378 Dec, [address] 23789- 9251 Dec, Hospital discharge follow-up Z09 ; Nephrolithiasis N20.0 ; Essential hypertension I10 ; Gastroesophageal reflux disease with esophagitis K21.0 and Anxiety F41.9 [place] [address] [id number] [place] [address] 05580- 3439 Nov, [facility] [address] 64512 -2973 Nov, Dysuria R30.0 and Acute cystitis with hematuria N30.01 [facility] IN [address] [address] -9295 Nov, [place] [address] 11610- 1366 Nov, [place] [address] 01379- 9220 Nov, Gastroesophageal reflux disease with esophagitis K21.0 ; Hypercholesteremia E78.00 and Acquired hypothyroidism E03.9 [facility] [address] 42817 -4344 18 Nov, 2016 Left wrist pain M25.532 and Contusion of left wrist, initial encounter S60.212A [place] [address] 96911- 4784 18 Nov, 2016 Bipolar 1 disorder, depressed, moderate F31.32 ; Anxiety F41.9 ; Borderline personality disorder F60.3 and Polysubstance (including opioids) dependence with physiol dependence F19.20 [facility] [address] 952607 -6855 15 Nov, 2016 Abdominal pain R10.9 and GERD (gastroesophageal reflux disease) K21.9 [place] [address] 66492- 8328 12 Nov, 2016 Hypokalemia, gastrointestinal losses E87.6 [place] [address] 13705- 2053 11 Nov, 2016 Dehydration E86.0 ; Hypokalemia, gastrointestinal losses E87.6 and Vaginal candidiasis B37.3 [place] [address] 74233- 4782 08 Nov, 2016 Abnormal weight loss R63.4 ; Diarrhea, unspecified R19.7 ; Vomiting, unspecified R11.10 ; Generalized abdominal pain R10.84 and Decreased breath sounds R06.89 [place] [address] [place] [id number] [place] [address] 58818- 8814 Oct, Bipolar 1 disorder, depressed, moderate F31.32 and Anxiety F41.9 [place] [address] [place] 865235- 5905 Sep, Bipolar 1 disorder, depressed, moderate F31.32 ; Anxiety F41.9 ; Borderline personality disorder F60.3 and Polysubstance (including opioids) dependence with physiol dependence F19.20 [place] [address] [id number] [place] [address] 05027- 4981 Sep, Bipolar 1 disorder, depressed, moderate F31.32 and Anxiety F41.9 [place] [address] [place] [id number] [place] [address] 04365- 6053 Sep, Bipolar 1 disorder, depressed, moderate F31.32 [place] [address] [place] [id number] [place] [address] 42275- 3087 Sep, Bipolar 1 disorder, depressed, moderate F31.32 and Anxiety F41.9 [facility] [address] [place] [id number] [place] [address] 45408 -6105 Sep, Pain of toe of right foot M79.674 [place] [address] [place] [id number] [place] [address] 40557- 2349 Sep, [facility] [address] 65482 -0089 Sep, Cellulitis of right ankle L03.115 [place] [address] [place] [id number] [place] [address] 11054- 7996 Sep, Bipolar 1 disorder, depressed, moderate F31.32 and Anxiety F41.9 [place] [address] [place] [id number] [place] [address] 81220- 4031 Sep, [place] [address] [place] [id number] [place] [address] 09311- 3420 Sep, [place] [address] [id number] [place] [address] 83707- 5854 Sep, Bipolar 1 disorder, depressed, moderate F31.32 and Anxiety F41.9 [place] [address] [id number] [place] [address] 82803- 3231 Sep, Accidental spider bite T63.301A [place] [address] [place] [id number] [place] [address] 75122- 9135 Aug, Bipolar 1 disorder, depressed, moderate F31.32 ; Anxiety F41.9 ; Borderline personality disorder F60.3 and Polysubstance (including opioids) dependence with physiol dependence F19.20 [facility] [address] 64969- 3862 Aug, [place] [address] 43384- 6775 Aug, Bipolar 1 disorder, depressed, moderate F31.32 and Anxiety F41.9 [place] [address] 38915- 6949 Aug, Pre-diabetes R73.03 ; Acute seasonal allergic rhinitis due to pollen J30.1 ; Hypercholesteremia E78.00 and Nausea R11.0 [place] [address] 75214- 7498 Aug, [place] [address] 91255- 7686 Aug, Bipolar 1 disorder, depressed, moderate F31.32 and Anxiety F41.9 [facility] [address] 77804- 6104 Aug, [place] [address] 22458- 8812 Aug, [place] [address] 47792- 1898 Aug, [facility] [address] 41972- 1735 Aug, Bipolar 1 disorder, depressed, moderate F31.32 and Anxiety F41.9 [place] [address] 72681- 0496 Aug, [facility] [address] 58721 -5291 Aug, Insect bite, initial encounter W57.XXXA and Cellulitis of left lower leg L03.116 [place] [address] [place] [address]- 5230 Aug, Bipolar 1 disorder, depressed, moderate F31.32 and Borderline personality disorder F60.3 [place] [address] [place] [id number] [place] [address] 08597- 4514 July, [place] [address] [place] [id number] [place] [address] 32814- 4891 July, [place] [address] 77509- 7251 July, Encounter for routine adult health examination with abnormal findings Z00.01 ; History of esophageal cancer Z85.01 ; Bipolar 1 disorder, depressed, moderate F31.32 ; Anxiety F41.9 ; Acquired hypothyroidism E03.9 ; Essential hypertension I10 ; Gastroesophageal reflux disease with esophagitis K21.0 and Encounter for immunization Z23 [place] [address] 55716- 7738 July, Bipolar 1 disorder, depressed, moderate F31.32 and Anxiety F41.9 [place] [address] [place] [id number] [place] [address] 90479- 2598 July, [place] [address] 16072- 0230 July, Bipolar 1 disorder, depressed, moderate F31.32 and Anxiety F41.9 [place] [address] [place] [id number] [place] [address] 35546- 8121 July, Bipolar 1 disorder, depressed, moderate F31.32 [place] [address] [place] [id number] [place] [address] 56649- 2569 July, Bipolar 1 disorder, depressed, moderate F31.32 and Anxiety F41.9 [place] [address] [place] [id number] [place] [address] 63960- 0023 Jun, Bipolar 1 disorder, depressed, moderate F31.32 [place] [address] [place] [id number] [place] [address] 36224- 4824 Jun, Bipolar 1 disorder, depressed, moderate F31.32 and Borderline personality disorder F60.3 [facility] [id number] [place] [address] 34471- 0239 Jun, Bipolar 1 disorder, depressed, moderate F31.32 [facility] [address] [id number] [place] [address] 4416 Jun, Bipolar 1 disorder, depressed, moderate F31.32 [facility] [address] [place] [id number] [place] [address] 928403- 3814 May, Bipolar 1 disorder, depressed, moderate F31.32 and Anxiety F41.9 [place] [address] [place] [id number] [place] [address]- 4939 May, Bipolar 1 disorder, depressed, moderate F31.32 and Anxiety F41.9 [place] [address] [place] [id number] [place] [address] 31559- 2565 May, Bipolar 1 disorder, depressed, moderate F31.32 and Anxiety F41.9 [place] [address] [place] [id number] [place] [address] 86531- 8266 May, Bipolar 1 disorder, depressed, moderate F31.32 and Borderline personality disorder F60.3 [place] [address] [place] [id number] [place] [address] 51942- 5102 14 May, 2016 [place] [address] [place] [id number] [place] [address] 59079- 5218 May, Bipolar 1 disorder, depressed, moderate F31.32 and Anxiety F41.9 [facility] [address] [place] [id number] [place] [address] 98106- 7036 09 May, 2016 Bipolar 1 disorder, depressed, moderate F31.32 and Anxiety F41.9 [facility] [address] [id number] [place] [address] 49600- 9726 May, [facility] [address] [place] [id number] [place] [address] 48546- 0589 May, Bipolar 1 disorder, depressed, moderate F31.32 [facility] [address] [place] [address] 15215- 3686 May, Bipolar 1 disorder, depressed, moderate F31.32 and Generalized anxiety disorder F41.1 [facility] [address] [id number] [place] [address] 94080- 2245 Apr, Bipolar 1 disorder, depressed, moderate F31.32 and Anxiety F41.9 [place] [address] [id number] [place] [address] 21855- 9723 Apr, [place] [address] [place] [id number] [place] [address] 11243- 1595 Apr, Bipolar 1 disorder, depressed, moderate F31.32 and Anxiety F41.9 [place] [address] [place] [id number] [place] [address] 85565- 9388 Apr, Bipolar 1 disorder, depressed, moderate F31.32 and Anxiety F41.9 [place] [address] [place] [id number] [place] [address] 82055- 7519 Apr, Bipolar affective disorder, depressed, severe F31.4 and Generalized anxiety disorder F41.1 [place] [address] [place] [address] 56324- 8482 Mar, Bipolar 1 disorder, depressed, moderate F31.32 and Anxiety F41.9 [place] [address] [place] [address] 40656- 9941 Mar, Bipolar 1 disorder, depressed, moderate F31.32 and Anxiety F41.9 [facility] [id number] [place] [address] 58828- 5333 Mar, Bipolar 1 disorder, mixed, moderate F31.62 [facility] [address] [id number] [place] [address] 18354- 4965 Mar, [facility] [address] [id number] [place] [address] 71648- 2633 Mar, Bipolar 1 disorder, mixed, moderate F31.62 ; Generalized anxiety disorder F41.1 and Other fci (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 Z79.899 [facility] [address] [id number] [place] [address] 88164- 5471 Feb, Bipolar 1 disorder, depressed, moderate F31.32 and Anxiety F41.9 [facility] [address] [place] [id number] [place] [address] 44560- 3495 Feb, Bipolar 1 disorder, depressed, moderate F31.32 and Other superintendent container terminal (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 Z79.899 [facility] [address] [place] [id number] [place] [address] 27752- 1643 Feb, [facility] [address] [place] [id number] [place] [address] 14816- 5490 Feb, Bipolar 1 disorder, depressed, moderate F31.32 and Anxiety F41.9 [facility] [address] [place] [id number] [place] [address] 14484- 1720 Feb, Bipolar 1 disorder, depressed, moderate F31.32 and Other superintendent container terminal (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 Z79.899 [facility] [address] [place] [id number] [place] [address] 42311- 1507 Feb, Bipolar 1 disorder, depressed, moderate F31.32 and Anxiety F41.9 [facility] [id number] [place] [address] 66338- 4495 Dec, Bipolar 1 disorder, depressed, moderate F31.32 and Anxiety F41.9 [facility] [id number] [place] [address] 32269- 7456 Oct, [facility] [id number] [place] [address] 12993- 4603 Oct, [facility] [id number] [place] [address] 63936- 2652 May, [facility] [id number] [place] [address] 36409- 0330 May, [facility] [address] [facility] [id number] [place] [address]- 6875 Mar, [facility] [address] [facility] [id number] [place] [address]- 2546 Mar, IMMUNIZATIONS No Known Immunizations SOCIAL HISTORY Never Assessed REASON FOR VISIT possible abscess PLAN OF CARE Activity Details Follow Up joni Reason:dental evaluation/dx VITAL SIGNS MEDICATIONS Medication Instructions Dosage Frequency Start Date End Date Duration Status Levothyroxine Sodium 50 mcg Orally Once a day 1 tablet on an empty stomach in the morning 24h 90 days Active Ondansetron 8 MG Orally every 8 hrs 1 tablet on the tongue and allow to dissolve 8h Nov, 07 days Active Protonix 40 mg Orally Once a day 1 tablet 24h 15 Nov, 2016 90 days Active Lexapro 20 mg Orally Once a day 1 tablet 24h 10 Mar, 2017 30 days Active Latuda 40 mg Orally Once a day at supper 1 tablet with food Jan, 30 days Active Atorvastatin Calcium 20 MG TAKE 1 TABLET BY MOUTH EVERY DAY 90 Active Triamcinolone Acetonide 0.1 % Externally Twice a day apply thin layer to rash on abdomen twice daily 12h 05 days Active Amlodipine Besylate 10 mg Orally Once a day TAKE 1 TABLET BY MOUTH EVERY DAY 24h 90 Active Gabapentin 300 MG Orally 4 times a day as needed 1 capsule Jan, 30 days Active Lamotrigine 200 mg Orally Once a day 1 tablet 24h 30 days Active RESULTS No Results PROCEDURES Procedure Date Ordered Result Body Site PANORAMIC FILM SEE ALSO CODE 91998 September 26, 2017 INSTRUCTIONS MEDICATIONS ADMINISTERED No [...] and Neck 2004 Hospitalization History [facility] Psychiatric Admission 2016
--- OUTSIDE RECORDS SUMMARY | 2017-11-25 12:29 | XMS REPORT ---
Author Author GURINDER NORTON Organization [facility] Address [address] [place] [address] Care Team Providers Care Supervisor [employer] Name Role Phone GURINDER NORTON Unavailable PROBLEMS Type Condition ICD9-CM Code DFG08-UA Code Onset Dates Condition Status SNOMED Code Problem Gastroesophageal reflux disease with esophagitis K21.0 Active 509416433 Problem Polysubstance (including opioids) dependence with physiol dependence F19.20 Active 38549001 Problem History of esophageal cancer Z85.01 Active 227445001 Problem Seasonal allergies J30.2 Active 440482621 Problem Pre-diabetes R73.03 Active 941861102 Problem GERD (gastroesophageal reflux disease) K21.9 Active 505782586 Problem Borderline personality disorder F60.3 Active 97928444 Problem Pure hypercholesterolemia E78.00 Active 053861744 Problem Nephrolithiasis N20.0 Active 44186254 Problem STATE HEP A (ADULT) DX V05.3 Active 715088070 Problem Bipolar 1 disorder, depressed, moderate F31.32 Active 30897740 Problem Anxiety F41.9 Active 73986299 Problem Vitamin D insufficiency E55.9 Active 801783666 Problem Essential hypertension I10 Active 86519276 Problem Elevated serum creatinine R79.89 Active 382945622 Problem Acquired hypothyroidism E03.9 Active 195324395 ALLERGIES No Information ENCOUNTERS Encounter Location Date Diagnosis [facility] [id number] [address] Jan, [facility] [id number] [place] [address] 85062- 9025 Dec, [facility] [address] [address] 4[address] Dec, [facility] [id number] [address] 13 Nov, 2017 [facility] [id number] [place] [address] 68556- 2199 Nov, Bipolar 1 disorder, depressed, moderate F31.32 and Anxiety F41.9 [facility] [id number] [place] [address] 00556- 2602 Oct, Bipolar 1 disorder, depressed, moderate F31.32 ; Anxiety F41.9 ; Borderline personality disorder F60.3 ; Polysubstance (including opioids ) dependence with physiol dependence F19.20 and Other usp (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 Z79.899 [facility] [address] 22674- 9231 Oct, Bipolar 1 disorder, depressed, moderate F31.32 [facility] [id number] [place] [address] [id number] Sep, Encounter for dental examination Z01.20 [facility] [address] 78011- 9677 Sep, Acute oral pain K13.79 [facility] [address] 96730- 8011 Sep, Bipolar 1 disorder, depressed, moderate F31.32 [facility] [id number] [place] [address] 50604- 2771 Sep, Bipolar 1 disorder, depressed, moderate F31.32 [facility] [id number] [place] [address] 82954- 5668 Sep, Bipolar 1 disorder, depressed, moderate F31.32 [facility] [id number] [place] [address] 96277- 1473 Sep, Essential hypertension I10 ; Acquired hypothyroidism E03.9 ; Anxiety F41.9 ; Chronic nausea R11.0 and Irritant contact dermatitis due to plants, except food L24.7 [facility] [id number] [place] [address] 34833- 7516 Aug, Bipolar 1 disorder, depressed, moderate F31.32 [place] [id number] [place] [address] 53367- 3354 Aug, Bipolar 1 disorder, depressed, moderate F31.32 [place] [address] 34871- 9375 Aug, Bipolar 1 disorder, depressed, moderate F31.32 [place] [address] 55694- 9058 July, Candidal dermatitis B37.2 [place] [address] 32759- 3176 July, Acquired hypothyroidism E03.9 [place] [address] 72905- 9635 July, Bipolar 1 disorder, depressed, moderate F31.32 [facility] [place] [address] 87083 -3304 July, Seasonal allergies J30.2 [place] [address] 61095- 9147 July, Bipolar 1 disorder, depressed, moderate F31.32 [place] [address] 93771- 0767 Jun, Pre-diabetes R73.03 [place] [address] 85583- 0490 Jun, Bipolar 1 disorder, depressed, moderate F31.32 ; Anxiety F41.9 ; Borderline personality disorder F60.3 ; Polysubstance (including opioids ) dependence with physiol dependence F19.20 and Other specified abnormal findings of blood chemistry R79.89 [place] [address] 93154- 4753 Jun, Bipolar 1 disorder, depressed, moderate F31.32 [place] [address] 05827- 7991 May, Bipolar 1 disorder, depressed, moderate F31.32 [place] [id number] [place] [address] 96640- 4243 May, Bipolar 1 disorder, depressed, moderate F31.32 [place] [address] 72245- 4273 May, [place] [address] 09054- 7447 May, [place] [address] 158376- 3310 May, Bipolar 1 disorder, depressed, moderate F31.32 [place] [address] [address]372 1412 May, Bipolar 1 disorder, depressed, moderate F31.32 [place] [address] 88528- 6357 May, Other specified abnormal findings of blood chemistry R79.89 [place] [address] 72979- 3073 May, Essential hypertension I10 ; Acquired hypothyroidism E03.9 ; Gastroesophageal reflux disease with esophagitis K21.0 ; Hair loss L65.9 ; Hypokalemia, gastrointestinal losses E87.6 ; Pre-diabetes R73.03 ; Candidal dermatitis B37.2 and Pure hypercholesterolemia E78.00 [place] [id number] [place] [address] 22852- 5962 Apr, Bipolar 1 disorder, depressed, moderate F31.32 [place] [id number] [place] [address] 91879- 2455 Apr, Bipolar 1 disorder, depressed, moderate F31.32 [place] [address] 89347- 8351 Apr, Bipolar 1 disorder, depressed, moderate F31.32 and Anxiety F41.9 [facility] [address] 79463 -0605 Mar, Encounter for immunization Z23 ; Fall, initial encounter W19.XXXA ; Rib pain on left side R07.81 and Left hip pain M25.552 [facility] [address] 51226- 0756 Mar, Bipolar 1 disorder, depressed, moderate F31.32 and Anxiety F41.9 [place] [address] 07697- 0587 Mar, Bipolar 1 disorder, depressed, moderate F31.32 ; Anxiety F41.9 ; Borderline personality disorder F60.3 and Polysubstance (including opioids) dependence with physiol dependence F19.20 [place] [address] 60667- 1756 Mar, Bipolar 1 disorder, depressed, moderate F31.32 and Anxiety F41.9 [facility] [address] 81715 -3194 Feb, Irritant contact dermatitis, unspecified trigger L24.9 [facility] [address] 84248- 7757 Feb, [place] [address] 71132- 9491 Feb, [place] [address] 55613- 5653 Feb, Bipolar 1 disorder, depressed, moderate F31.32 and Anxiety F41.9 [facility] [address] 52845- 2676 Feb, Acute non-recurrent maxillary sinusitis J01.00 [facility] [address] 43053- 8456 Feb, [facility] [address] 16410- 8824 Feb, Bipolar 1 disorder, depressed, moderate F31.32 [place] [address] 86441- 1899 Jan, [place] [id number] [place] [address] Jan, Bipolar 1 disorder, depressed, moderate F31.32 ; Anxiety F41.9 ; Borderline personality disorder F60.3 and Polysubstance (including opioids) dependence with physiol dependence F19.20 [place] [address] 556583- 9844 Jan, Bipolar 1 disorder, depressed, moderate F31.32 and Anxiety F41.9 [place] [id number] [place] [address] 027795- 5924 Jan, Bipolar 1 disorder, depressed, moderate F31.32 ; Anxiety F41.9 ; Borderline personality disorder F60.3 and Polysubstance (including opioids) dependence with physiol dependence F19.20 [place] [id number] [place] [address] 37777- 2128 Jan, Bipolar 1 disorder, depressed, moderate F31.32 and Anxiety F41.9 [place] [id number] [place] [address] 09069- 2805 Dec, Hypokalemia, gastrointestinal losses E87.6 ; GERD ( gastroesophageal reflux disease) K21.9 and Bipolar 1 disorder, depressed, moderate F31.32 [place] [id number] [place] [address] 74673- 1347 Dec, Bipolar 1 disorder, depressed, moderate F31.32 and Anxiety F41.9 [facility] [id number] [place] [address] 94752 -6832 Dec, [place] [address] 18169- 4283 Dec, [facility] [id number] [place] [address] 51309 -1538 Dec, Fall (on) (from) other stairs and steps, initial encounter W10.8XXA ; Laceration of left lower extremity, initial encounter S81.812A ; Contusion of right knee, initial encounter S80.01XA and Contusion of right shoulder, initial encounter S40.011A [place] [address] 89307- 8119 Dec, Bipolar 1 disorder, depressed, moderate F31.32 ; Anxiety F41.9 ; Borderline personality disorder F60.3 and Polysubstance (including opioids) dependence with physiol dependence F19.20 [place] [address] 27678- 7700 Dec, Bipolar 1 disorder, depressed, moderate F31.32 and Anxiety F41.9 [place] [address] 51584- 9762 Dec, [place] [address] 78286- 7305 Dec, Hospital discharge follow-up Z09 ; Nephrolithiasis N20.0 ; Essential hypertension I10 ; Gastroesophageal reflux disease with esophagitis K21.0 and Anxiety F41.9 [place] [address] 55334- 6059 Nov, [facility] [address] 02171 -4583 Nov, Dysuria R30.0 and Acute cystitis with hematuria N30.01 [facility] [address] 00106 -3581 Nov, [facility] [address] 58113- 2383 Nov, [place] [address] 73899- 4182 Nov, Gastroesophageal reflux disease with esophagitis K21.0 ; Hypercholesteremia E78.00 and Acquired hypothyroidism E03.9 [facility] [address] 72128 -2687 18 Nov, 2016 Left wrist pain M25.532 and Contusion of left wrist, initial encounter S60.212A [place] [id number] [place] [address] 56499- 8793 18 Nov, 2016 Bipolar 1 disorder, depressed, moderate F31.32 ; Anxiety F41.9 ; Borderline personality disorder F60.3 and Polysubstance (including opioids) dependence with physiol dependence F19.20 [facility] [address] 610529 -5852 15 Nov, 2016 Abdominal pain R10.9 and GERD (gastroesophageal reflux disease) K21.9 [place] [address] 702525- 5405 12 Nov, 2016 Hypokalemia, gastrointestinal losses E87.6 [place] [address] 82196- 8325 11 Nov, 2016 Dehydration E86.0 ; Hypokalemia, gastrointestinal losses E87.6 and Vaginal candidiasis B37.3 [place] [id number] [place] [address] 08856- 8333 08 Nov, 2016 Abnormal weight loss R63.4 ; Diarrhea, unspecified R19.7 ; Vomiting, unspecified R11.10 ; Generalized abdominal pain R10.84 and Decreased breath sounds R06.89 [place] [id number] [place] [address] 70829- 1650 Oct, Bipolar 1 disorder, depressed, moderate F31.32 and Anxiety F41.9 [place] [id number] [place] [address] 27811- 6713 Sep, Bipolar 1 disorder, depressed, moderate F31.32 ; Anxiety F41.9 ; Borderline personality disorder F60.3 and Polysubstance (including opioids) dependence with physiol dependence F19.20 [facility] [id number] [place] [address] 86808- 3653 27 Sep, 2016 Bipolar 1 disorder, depressed, moderate F31.32 and Anxiety F41.9 [place] [address] [place] [address]- 9668 Sep, Bipolar 1 disorder, depressed, moderate F31.32 [place] [address] 84133- 8261 Sep, Bipolar 1 disorder, depressed, moderate F31.32 and Anxiety F41.9 [facility] [address] 64779 -5931 Sep, Pain of toe of right foot M79.674 [place] [address] 45538- 6460 Sep, [facility] [place] [address] 91343 -4185 Sep, Cellulitis of right ankle L03.115 [place] [address] 59487- 5229 Sep, Bipolar 1 disorder, depressed, moderate F31.32 and Anxiety F41.9 [place] [id number] [place] [address] 98791- 5041 Sep, [place] [address] 52340- 4439 Sep, [place] [address] 67600- 1642 Sep, Bipolar 1 disorder, depressed, moderate F31.32 and Anxiety F41.9 [place] [id number] [place] [address] 23674- 1835 Sep, Accidental spider bite T63.301A [place] [address] 28185- 3149 Aug, Bipolar 1 disorder, depressed, moderate F31.32 ; Anxiety F41.9 ; Borderline personality disorder F60.3 and Polysubstance (including opioids) dependence with physiol dependence F19.20 [place] [address] 36376- 1762 Aug, [place] [address] [place] [address] 98137- 9616 Aug, Bipolar 1 disorder, depressed, moderate F31.32 and Anxiety F41.9 [place] [id number] [place] [address] 22792- 3192 Aug, Pre-diabetes R73.03 ; Acute seasonal allergic rhinitis due to pollen J30.1 ; Hypercholesteremia E78.00 and Nausea R11.0 [place] [address] 97184- 7192 Aug, [place] [address] 39853- 7470 Aug, Bipolar 1 disorder, depressed, moderate F31.32 and Anxiety F41.9 [place] [address] 93141- 7008 08 Aug, 2016 [facility] [address] 79461- 9751 Aug, [place] [address] 05770- 4647 Aug, [place] [address] 30131- 8103 Aug, Bipolar 1 disorder, depressed, moderate F31.32 and Anxiety F41.9 [place] [address] 67662- 2932 Aug, [facility] [address] 73074 -7598 03 Aug, 2016 Insect bite, initial encounter W57.XXXA and Cellulitis of left lower leg L03.116 [place] [address] 23555- 1871 Aug, Bipolar 1 disorder, depressed, moderate F31.32 and Borderline personality disorder F60.3 [place] [address] 08687- 2242 July, [place] [address] 32857- 0243 July, [place] [address] 158379- 496 July, Encounter for routine adult health examination with abnormal findings Z00.01 ; History of esophageal cancer Z85.01 ; Bipolar 1 disorder, depressed, moderate F31.32 ; Anxiety F41.9 ; Acquired hypothyroidism E03.9 ; Essential hypertension I10 ; Gastroesophageal reflux disease with esophagitis K21.0 and Encounter for immunization Z23 [place] [address] 98245- 4464 July, Bipolar 1 disorder, depressed, moderate F31.32 and Anxiety F41.[address] 97704- 2478 July, [place] [address] 44404- 5715 July, Bipolar 1 disorder, depressed, moderate F31.32 and Anxiety F41.[address] 26820- 3148 July, Bipolar 1 disorder, depressed, moderate F31.32 [place] [address] 33919- 9679 July, Bipolar 1 disorder, depressed, moderate F31.32 and Anxiety F41.9 [place] [address] 44554- 5572 Jun, Bipolar 1 disorder, depressed, moderate F31.[address] 05028- 5894 Jun, Bipolar 1 disorder, depressed, moderate F31.32 and Borderline personality disorder F60.[address] 30214- 1964 Jun, Bipolar 1 disorder, depressed, moderate F31.32 [facility] [address] [place] [address] 36345- 6689 Jun, Bipolar 1 disorder, depressed, moderate F31.32 [facility] [id number] [place] [address]- [address]26 May, Bipolar 1 disorder, depressed, moderate F31.32 and Anxiety F41.9 [facility] [id number] [place]- 7083 May, Bipolar 1 disorder, depressed, moderate F31.32 and Anxiety F41.9 [facility] [id number] [place] [address] 870803- 0738 May, Bipolar 1 disorder, depressed, moderate F31.32 and Anxiety F41.9 [facility] [id number] [place] [address] 83958- 7474 May, Bipolar 1 disorder, depressed, moderate F31.32 and Borderline personality disorder F60.3 [facility] [id number] [place] [address] 99986- 0382 May, [facility] [id number] [place] [address] 36296- 4474 May, Bipolar 1 disorder, depressed, moderate F31.32 and Anxiety F41.9 [facility] [address] [place] [address] 66690- 8313 May, Bipolar 1 disorder, depressed, moderate F31.32 and Anxiety F41.9 [facility] [address] [place] [address] 10847- 8547 May, [facility] [id number] [place] [address] 01270- 2387 May, Bipolar 1 disorder, depressed, moderate F31.32 [facility] [id number] [place] [address] 05206- 0711 May, Bipolar 1 disorder, depressed, moderate F31.32 and Generalized anxiety disorder F41.1 [place] [address] [place] [address] 43072- 4199 28 Apr, 2016 Bipolar 1 disorder, depressed, moderate F31.32 and Anxiety F41.9 [place] [id number] [place] [address] 84900- 9992 27 Apr, 2016 [place] [id number] [place] [address] 71999- 6131 13 Apr, 2016 Bipolar 1 disorder, depressed, moderate F31.32 and Anxiety F41.9 [place] [id number] [place] [address] 20151- 7263 09 Apr, 2016 Bipolar 1 disorder, depressed, moderate F31.32 and Anxiety F41.9 [place] [id number] [place] [address] 57441- 5015 07 Apr, 2016 Bipolar affective disorder, depressed, severe F31.4 and Generalized anxiety disorder F41.1 [place] [id number] [place] [address] 09099- 8739 Mar, Bipolar 1 disorder, depressed, moderate F31.32 and Anxiety F41.9 [place] [id number] [place] [address] 75450- 4982 Mar, Bipolar 1 disorder, depressed, moderate F31.32 and Anxiety F41.9 [place] [id number] [place] [address] 88003- 6460 Mar, Bipolar 1 disorder, mixed, moderate F31.62 [place] [id number] [place] [address] 25097- 9269 Mar, [place] [id number] [place] [address] 68556- 0409 Mar, Bipolar 1 disorder, mixed, moderate F31.62 ; Generalized anxiety disorder F41.1 and 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 [place] [id number] [place] [address] 68706- 6501 Feb, Bipolar 1 disorder, depressed, moderate F31.32 and Anxiety F41.9 [facility] [id number] [place] [address] 796757- 0922 Feb, Bipolar 1 disorder, depressed, moderate F31.32 and Other usp (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 Z79.899 [facility] [id number] [place] [address] 52251- 8562 Feb, [facility] [id number] [place] [address] 57157- 9955 Feb, Bipolar 1 disorder, depressed, moderate F31.32 and Anxiety F41.9 [facility] [id number] [place] [address] 23383- 7987 Feb, Bipolar 1 disorder, depressed, moderate F31.32 and Other usp (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 Z79.899 [facility] [id number] [place] [address] 18384- 7923 Feb, Bipolar 1 disorder, depressed, moderate F31.32 and Anxiety F41.9 [facility] [id number] [place] [address] 02532- 5690 Dec, Bipolar 1 disorder, depressed, moderate F31.32 and Anxiety F41.9 [facility] [id number] [place] [address] 62986- 8436 Oct, [facility] [id number] [place] [address] 33467- 2073 Oct, [facility] [id number] [place] [address] 56016- 0820 May, [facility] [id number] [place] [address] 48819- 0094 May, [facility] [id number] [place] [address] 95431- 4488 Mar, [facility] [id number] [place] [address] 81156- 2546 Mar, IMMUNIZATIONS No Known Immunizations SOCIAL HISTORY Never Assessed REASON FOR VISIT Follow-up Depression PLAN OF CARE Activity Details Follow Up 2 Weeks Reason: Follow-up VITAL SIGNS MEDICATIONS Unknown Medications RESULTS No Results PROCEDURES Procedure Date Ordered Result Body Site [facility] VISIT MENTAL HEALTH ESTAB PT September 14, 2017 Psychotherapy, patient &/family, 30 minutes, established patient September 14, 2017 INSTRUCTIONS MEDICATIONS ADMINISTERED No Known Medications [...] Cancer Head and Neck 2004 Hospitalization History [facility] Psychiatric Admission 2015
--- OUTSIDE RECORDS SUMMARY | 2017-11-25 12:29 | XMS REPORT ---
Author Author ADELE DICK Organization [facility] Address [address] [place] [address] Care Team Providers Care Title Search Manager Name Role Phone ANGULODICK Casillas Unavailable PROBLEMS Type Condition ICD9-CM Code [id number] Code Onset Dates Condition Status SNOMED Code Problem Gastroesophageal reflux disease with esophagitis K21.0 Active 639398146 Problem Polysubstance (including opioids) dependence with physiol dependence F19.20 Active 64863726 Problem History of esophageal cancer Z85.01 Active 586694188 Problem Seasonal allergies J30.2 Active 078214985 Problem Pre-diabetes R73.03 Active 694582373 Problem GERD (gastroesophageal reflux disease) K21.9 Active 999866082 Problem Borderline personality disorder F60.3 Active 57117319 Problem Pure hypercholesterolemia E78.00 Active 588041172 Problem Nephrolithiasis N20.0 Active 24154597 Problem STATE HEP A (ADULT) DX V05.3 Active 431400666 Problem Bipolar 1 disorder, depressed, moderate F31.32 Active 91603548 Problem Anxiety F41.9 Active 01469219 Problem Vitamin D insufficiency E55.9 Active 125898687 Problem Essential hypertension I10 Active 45789452 Problem Elevated serum creatinine R79.89 Active 024090663 Problem Acquired hypothyroidism E03.9 Active 678283235 ALLERGIES Substance Reaction Event Type Date Status Adhesive Tape Rash Drug Allergy Sep, Active Zolpidem Tartrate Client OVERDOSE Drug Allergy Sep, Active Penicillamine Hives Drug Allergy Sep, Active Codeine Sulfate Nausea and Vomitting Drug Allergy Sep, Active ENCOUNTERS Encounter Location Date Diagnosis [facility] [address] [facility] [id number] [address] Jan, [facility] [address] [facility] [id number] [address] Dec, [facility] [address] [place] [id number] [place] [address] 61095- 6081 Dec, [facility] [address] 30240- 6487 Nov, [facility] [address] [place] [id number]- 9317 Nov, Bipolar 1 disorder, depressed, moderate F31.32 and Anxiety F41.9 [place] [address] 005382- 7631 Oct, Bipolar 1 disorder, depressed, moderate F31.32 ; Anxiety F41.9 ; Borderline personality disorder F60.3 ; Polysubstance (including opioids ) dependence with physiol dependence F19.20 and Other terminal carman (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 Z79.899 [place] [address] 17643- 9869 Oct, Bipolar 1 disorder, depressed, moderate F31.32 [facility] [address] [id number] Sep, Encounter for dental examination Z01.20 [place] [address] 42440- 3517 Sep, Acute oral pain K13.79 [facility] [id number] [place] [address] 14632- 6050 Sep, Bipolar 1 disorder, depressed, moderate F31.32 [facility] [id number] [place] [address] 54335- 4998 Sep, Bipolar 1 disorder, depressed, moderate F31.32 [facility] [address] 70751- 8040 Sep, Bipolar 1 disorder, depressed, moderate F31.32 [facility] [id number] [place] [address] 03370- 3520 Sep, Essential hypertension I10 ; Acquired hypothyroidism E03.9 ; Anxiety F41.9 ; Chronic nausea R11.0 and Irritant contact dermatitis due to plants, except food L24.7 [place] [address] [place] [id number] [place] [address] 04312- 2391 Aug, Bipolar 1 disorder, depressed, moderate F31.32 [place] [address] [place] [id number] [place] [address] 95780- 8158 Aug, Bipolar 1 disorder, depressed, moderate F31.32 [place] [address] 39633- 2449 Aug, Bipolar 1 disorder, depressed, moderate F31.32 [place] [address] [id number] [place] [address] 35526- 5257 July, Candidal dermatitis B37.2 [place] [address] [place] [id number] [place] [address] 34610- 3065 July, Acquired hypothyroidism E03.[address] 34291- 2779 July, Bipolar 1 disorder, depressed, moderate F31.32 [facility] [id number] [place] [address] 87710 -1895 July, Seasonal allergies J30.2 [place] [address] [place] [id number] [place] [address] 77172- 1878 July, Bipolar 1 disorder, depressed, moderate F31.32 [place] [address] [place] [id number] [place] [address] 33837- 4862 Jun, Pre-diabetes R73.03 [place] [address] [place] [id number] [place] [address] 30043- 9093 Jun, Bipolar 1 disorder, depressed, moderate F31.32 ; Anxiety F41.9 ; Borderline personality disorder F60.3 ; Polysubstance (including opioids ) dependence with physiol dependence F19.20 and Other specified abnormal findings of blood chemistry R79.89 [place] [id number] [place] [address] 38361- 8787 Jun, Bipolar 1 disorder, depressed, moderate F31.32 [place] [id number] [place] [address] 56350- 0373 May, Bipolar 1 disorder, depressed, moderate F31.32 [place] [id number] [place] [id number] May, Bipolar 1 disorder, depressed, moderate F31.32 [place] [address] 64090- 9294 May, [place] [address] [place] [id number] [place] [address] 765963- 9329 May, [place] [address] [place] 418386- 5793 May, Bipolar 1 disorder, depressed, moderate F31.32 [place] [address] [place] [id number] [place] [address] 25616- 2040 May, Bipolar 1 disorder, depressed, moderate F31.32 [place] [address] [place] [id number] [place] [address] 09591- 4667 May, Other specified abnormal findings of blood chemistry R79.89 [place] [address] [id number] [place] [address] [address] May, Essential hypertension I10 ; Acquired hypothyroidism E03.9 ; Gastroesophageal reflux disease with esophagitis K21.0 ; Hair loss L65.9 ; Hypokalemia, gastrointestinal losses E87.6 ; Pre-diabetes R73.03 ; Candidal dermatitis B37.2 and Pure hypercholesterolemia E78.00 [place] [address] [id number] [place] [address] 73093- 5622 Apr, Bipolar 1 disorder, depressed, moderate F31.32 [place] [address] [id number] [place] [address] 5507 Apr, Bipolar 1 disorder, depressed, moderate F31.32 [place] [address] [id number] [place] [address] 01853- 1316 Apr, Bipolar 1 disorder, depressed, moderate F31.32 and Anxiety F41.9 [facility] [address] 49651 -6445 Mar, Encounter for immunization Z23 ; Fall, initial encounter W19.XXXA ; Rib pain on left side R07.81 and Left hip pain M25.552 [place] [address] 68754- 7161 Mar, Bipolar 1 disorder, depressed, moderate F31.32 and Anxiety F41.9 [place] [address] 82596- 3865 Mar, Bipolar 1 disorder, depressed, moderate F31.32 ; Anxiety F41.9 ; Borderline personality disorder F60.3 and Polysubstance (including opioids) dependence with physiol dependence F19.20 [place] [address] 07374- 4819 Mar, Bipolar 1 disorder, depressed, moderate F31.32 and Anxiety F41.9 [facility] [address] 76324 -6763 Feb, Irritant contact dermatitis, unspecified trigger L24.9 [place] [address] 15097- 8741 Feb, [place] [address] 51447- 6531 Feb, [place] [address] 39189- 2619 Feb, Bipolar 1 disorder, depressed, moderate F31.32 and Anxiety F41.9 [place] [address] 93149- 9840 Feb, Acute non-recurrent maxillary sinusitis J01.00 [place] [address] 37640- 0107 Feb, [place] [address] [place] [address] 34218- 8494 Feb, Bipolar 1 disorder, depressed, moderate F31.32 [facility] [id number] [place] [address] 01925- 0232 Jan, [facility] [id number] [place] [address] 24348- 9463 Jan, Bipolar 1 disorder, depressed, moderate F31.32 ; Anxiety F41.9 ; Borderline personality disorder F60.3 and Polysubstance (including opioids) dependence with physiol dependence F19.20 [place] [address] [id number] [place] [address] 45459- 0429 Jan, Bipolar 1 disorder, depressed, moderate F31.32 and Anxiety F41.9 [place] [address] [id number] [place] [address] 55754- 2623 Jan, Bipolar 1 disorder, depressed, moderate F31.32 ; Anxiety F41.9 ; Borderline personality disorder F60.3 and Polysubstance (including opioids) dependence with physiol dependence F19.20 [place] [address] [id number] [place] [address] 48319- 7384 Jan, Bipolar 1 disorder, depressed, moderate F31.32 and Anxiety F41.9 [place] [address] [id number] [place] [address] 95956- 3740 Dec, Hypokalemia, gastrointestinal losses E87.6 ; GERD ( gastroesophageal reflux disease) K21.9 and Bipolar 1 disorder, depressed, moderate F31.32 [place] [address] [id number] [place] [address] 94846- 8337 Dec, Bipolar 1 disorder, depressed, moderate F31.32 and Anxiety F41.9 [facility] [id number] [place] [address] 85419 -4410 Dec, [facility] [address] [place] [id number] [place] [address] 68597- 0298 Dec, [facility] [place] [address] [place] [id number] [place] [address] 89204 -3976 Dec, Fall (on) (from) other stairs and steps, initial encounter W10.8XXA ; Laceration of left lower extremity, initial encounter S81.812A ; Contusion of right knee, initial encounter S80.01XA and Contusion of right shoulder, initial encounter S40.011A [address] 12530- 2084 Dec, Bipolar 1 disorder, depressed, moderate F31.32 ; Anxiety F41.9 ; Borderline personality disorder F60.3 and Polysubstance (including opioids) dependence with physiol dependence F19.[address] 69209- 9115 Dec, Bipolar 1 disorder, depressed, moderate F31.32 and Anxiety F41.[address] 76814- 0399 Dec, [address] 96446- 5745 Dec, Hospital discharge follow-up Z09 ; Nephrolithiasis N20.0 ; Essential hypertension I10 ; Gastroesophageal reflux disease with esophagitis K21.0 and Anxiety F41.[address] 90385- 9663 Nov, [facility] [place] [address] 27141 -7932 Nov, Dysuria R30.0 and Acute cystitis with hematuria N30.01 [facility] [address] 95387 -5956 Nov, [place] [address] 47702- 6739 Nov, [place] [address] 78087- 2128 Nov, Gastroesophageal reflux disease with esophagitis K21.0 ; Hypercholesteremia E78.00 and Acquired hypothyroidism E03.9 [facility] [address] 10409 -849 18 Nov, 2016 Left wrist pain M25.532 and Contusion of left wrist, initial encounter S60.212A [address] 42759- 631 18 Nov, 2016 Bipolar 1 disorder, depressed, moderate F31.32 ; Anxiety F41.9 ; Borderline personality disorder F60.3 and Polysubstance (including opioids) dependence with physiol dependence F19.20 [facility] [address] 945810 -7707 15 Nov, 2016 Abdominal pain R10.9 and GERD (gastroesophageal reflux disease) K21.9 [place] [address] 89743- 476 12 Nov, 2016 Hypokalemia, gastrointestinal losses E87.6 [place] [address] 04615- 5653 11 Nov, 2016 Dehydration E86.0 ; Hypokalemia, gastrointestinal losses E87.6 and Vaginal candidiasis B37.3 [place] [address] 56768- 2926 08 Nov, 2016 Abnormal weight loss R63.4 ; Diarrhea, unspecified R19.7 ; Vomiting, unspecified R11.10 ; Generalized abdominal pain R10.84 and Decreased breath sounds R06.89 [place] [address] 14968- 1255 Oct, Bipolar 1 disorder, depressed, moderate F31.32 and Anxiety F41.9 [place] [address] [place] 418387- 626 Sep, Bipolar 1 disorder, depressed, moderate F31.32 ; Anxiety F41.9 ; Borderline personality disorder F60.3 and Polysubstance (including opioids) dependence with physiol dependence F19.20 [place] [address] [place] [id number] [place] [address] 89705- 9564 Sep, Bipolar 1 disorder, depressed, moderate F31.32 and Anxiety F41.9 [place] [address] [place] [id number] [place] [address] 28107- 4571 Sep, Bipolar 1 disorder, depressed, moderate F31.32 [place] [address] [place] [id number] [place] [address] 30337- 0943 Sep, Bipolar 1 disorder, depressed, moderate F31.32 and Anxiety F41.9 [facility] [id number] [place] [address] 27635 -1630 Sep, Pain of toe of right foot M79.674 [place] [address] [place] [id number] [place] [address] 33851- 6617 Sep, [facility] [address] 78695 -0565 Sep, Cellulitis of right ankle L03.115 [place] [address] [place] [id number] [place] [address] 79871- 5270 Sep, Bipolar 1 disorder, depressed, moderate F31.32 and Anxiety F41.9 [place] [address] [place] [id number] [place] [address] 65934- 6078 Sep, [place] [address] [id number] [place] [address] 84529- 5736 Sep, [place] [address] [id number] [place] [address] 57212- 6373 Sep, Bipolar 1 disorder, depressed, moderate F31.32 and Anxiety F41.9 [place] [address] [id number] [place] [address] 08017- 4845 Sep, Accidental spider bite T63.301A [place] [address] [id number] [place] [address] 29405- 7297 Aug, Bipolar 1 disorder, depressed, moderate F31.32 ; Anxiety F41.9 ; Borderline personality disorder F60.3 and Polysubstance (including opioids) dependence with physiol dependence F19.20 [facility] [address] 81506- 8005 Aug, [place] [address] 05806- 7030 Aug, Bipolar 1 disorder, depressed, moderate F31.32 and Anxiety F41.9 [place] [address] 84223- 7652 Aug, Pre-diabetes R73.03 ; Acute seasonal allergic rhinitis due to pollen J30.1 ; Hypercholesteremia E78.00 and Nausea R11.0 [place] [address] 97596- 5462 Aug, [place] [address] 38812- 2713 Aug, Bipolar 1 disorder, depressed, moderate F31.32 and Anxiety F41.9 [facility] [address] 06186- 4768 Aug, [place] [address] 37010- 4813 Aug, [place] [address] 35201- 3814 Aug, [facility] [address] 40760- 1199 Aug, Bipolar 1 disorder, depressed, moderate F31.32 and Anxiety F41.9 [place] [address] 14800- 1917 Aug, [facility] [address] [id number] [place] [address] 12441 -3772 Aug, Insect bite, initial encounter W57.XXXA and Cellulitis of left lower leg L03.116 [place] [address] [place] [address] [place] [address]- 3331 Aug, Bipolar 1 disorder, depressed, moderate F31.32 and Borderline personality disorder F60.3 [place] [address] 78696- 9936 July, [place] [address] 69375- 9858 July, [place] [address] 17332- 0109 July, Encounter for routine adult health examination with abnormal findings Z00.01 ; History of esophageal cancer Z85.01 ; Bipolar 1 disorder, depressed, moderate F31.32 ; Anxiety F41.9 ; Acquired hypothyroidism E03.9 ; Essential hypertension I10 ; Gastroesophageal reflux disease with esophagitis K21.0 and Encounter for immunization Z23 [place] [address] 49060- 4046 July, Bipolar 1 disorder, depressed, moderate F31.32 and Anxiety F41.9 [place] [address] 61356- 8963 July, [place] [address] 03115- 7197 July, Bipolar 1 disorder, depressed, moderate F31.32 and Anxiety F41.9 [place] [address] [place] [id number] [place] [address] 98112- 6730 July, Bipolar 1 disorder, depressed, moderate F31.32 [place] [address] [place] [id number] [place] [address] 44419- 7099 July, Bipolar 1 disorder, depressed, moderate F31.32 and Anxiety F41.9 [place] [address] [place] [id number] [place] [address] 79359- 7265 Jun, Bipolar 1 disorder, depressed, moderate F31.32 [place] [address] 16520- 2168 Jun, Bipolar 1 disorder, depressed, moderate F31.32 and Borderline personality disorder F60.3 [facility] [address] [id number] [place] [address] 57368- 3367 Jun, Bipolar 1 disorder, depressed, moderate F31.32 [facility] [address] [place] [id number] [place] [address] 89697- 6662 Jun, Bipolar 1 disorder, depressed, moderate F31.32 [facility] [address] [id number] [place] [address] 62088- 0723 May, Bipolar 1 disorder, depressed, moderate F31.32 and Anxiety F41.9 [place] [address] [place] [id number] [place]- [address] May, Bipolar 1 disorder, depressed, moderate F31.32 and Anxiety F41.9 [place] [address] [place] [id number] [place] [address] 94710- 5911 May, Bipolar 1 disorder, depressed, moderate F31.32 and Anxiety F41.9 [place] [address] [place] [id number] [place] [address] 59531- 6364 May, Bipolar 1 disorder, depressed, moderate F31.32 and Borderline personality disorder F60.3 [place] [address] [place] [id number] [place] [address] 31592- 5304 14 May, 2016 [facility] [address] [place] [id number] [place] [address] 92731- 3474 May, Bipolar 1 disorder, depressed, moderate F31.32 and Anxiety F41.9 [facility] [address] [place] [address] 10358- 4957 09 May, 2016 Bipolar 1 disorder, depressed, moderate F31.32 and Anxiety F41.9 [facility] [address] [place] [id number] [place] [address] 85379- 6928 06 May, 2016 [facility] [address] [place] [id number] [place] [address] 74137- 1807 May, Bipolar 1 disorder, depressed, moderate F31.32 [facility] [address] [id number] [place] [address] 76769- 0021 May, Bipolar 1 disorder, depressed, moderate F31.32 and Generalized anxiety disorder F41.1 [facility] [address] [id number] [place] [address] 03087- 0756 Apr, Bipolar 1 disorder, depressed, moderate F31.32 and Anxiety F41.9 [place] [address] [id number] [place] [address] 88599- 0885 Apr, [place] [address] 558516- 9395 Apr, Bipolar 1 disorder, depressed, moderate F31.32 and Anxiety F41.9 [place] [address] [id number] [place] [address] 72799- 5161 Apr, Bipolar 1 disorder, depressed, moderate F31.32 and Anxiety F41.9 [place] [address] [id number] [place] [address] 07719- 3182 07 Apr, 2016 Bipolar affective disorder, depressed, severe F31.4 and Generalized anxiety disorder F41.1 [place] [address] [place] [id number] [place] [address] 96303- 9856 Mar, Bipolar 1 disorder, depressed, moderate F31.32 and Anxiety F41.9 [place] [address] [id number] [place] [address] 65226- 9605 Mar, Bipolar 1 disorder, depressed, moderate F31.32 and Anxiety F41.9 [place] [address] [place] [id number] [place] [address] 75161- 0233 Mar, Bipolar 1 disorder, mixed, moderate F31.62 [facility] [address] [id number] [place] [address] 25619- 1624 Mar, [facility] [address] [id number] [place] [address] 28697- 4090 Mar, Bipolar 1 disorder, mixed, moderate F31.62 ; Generalized anxiety disorder F41.1 and Other retirement (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 Z79.899 [facility] [address] [place] [id number] [place] [address] 78073- 7343 Feb, Bipolar 1 disorder, depressed, moderate F31.32 and Anxiety F41.9 [facility] [address] [place] [id number] [place] [address] 54630- 4803 Feb, Bipolar 1 disorder, depressed, moderate F31.32 and Other terminal carman (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 Z79.899 [facility] [address] [place] [id number] [place] [address] 89862- 7330 Feb, [facility] [address] [place] [id number] [place] [address] 35936- 3675 Feb, Bipolar 1 disorder, depressed, moderate F31.32 and Anxiety F41.9 [facility] [address] [id number] [place] [address] 01377- 2677 Feb, Bipolar 1 disorder, depressed, moderate F31.32 and Other retirement (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 Z79.899 [facility] [address] [place] [id number] [place] [address] 29348- 0149 Feb, Bipolar 1 disorder, depressed, moderate F31.32 and Anxiety F41.9 [facility] [address] [place] [id number] [place] [address] 31267- 4013 Dec, Bipolar 1 disorder, depressed, moderate F31.32 and Anxiety F41.9 [facility] [id number] [place] [address] 34406- 3851 Oct, [facility] [id number] [place] [address] 28861- 3755 Oct, [facility] [id number] [place] [address] 44259- 2352 May, [facility] [address] [place] [id number] [place] [address] 33907- 2217 May, [facility] [address] [facility] [id number] [place] [address]- 0154 Mar, [facility] [address] [facility] [id number] [place] [address]- 1066 Mar, IMMUNIZATIONS No Known Immunizations SOCIAL HISTORY Never Assessed REASON FOR VISIT Hypertension-AHarrymanRN PLAN OF CARE Activity Details Follow Up 3 Months, prn Reason:CHM/HTN VITAL SIGNS Height 67.0 in 2017-09-11 Weight 183.5 lbs 2017-09-11 Temperature 97.1 degrees Fahrenheit 2017-09-11 Heart Rate 68 bpm 2017-09-11 Respiratory Rate 20 2017-09-11 BMI 28.74 kg/m2 2017-09-11 Blood pressure systolic 132 mmHg 2017-09-11 Blood pressure diastolic 78 mmHg 2017-09-11 MEDICATIONS Medication Instructions Dosage Frequency Start Date End Date Duration Status Ondansetron 8 MG Orally every 8 hrs 1 tablet on the tongue and allow to dissolve 8h Nov, 07 days Active Amlodipine Besylate 10 mg Orally Once a day TAKE 1 TABLET BY MOUTH EVERY DAY 24h 90 Active Levothyroxine Sodium 50 mcg Orally Once a day 1 tablet on an empty stomach in the morning 24h 90 days Active Latuda 40 mg Orally Once a day at supper 1 tablet with food Jan, Active Atorvastatin Calcium 20 MG TAKE 1 TABLET BY MOUTH EVERY DAY 90 Active Lexapro 20 mg Orally Once a day 1 tablet 24h 10 Mar, 2017 30 days Active Protonix 40 mg Orally Once a day 1 tablet 24h 15 Nov, 2016 90 days Active Triamcinolone Acetonide 0.1 % Externally Twice a day apply thin layer to rash on abdomen twice daily 12h 05 days Active Lamotrigine 200 mg Orally Once a day 1 tablet 24h 30 days Active Nystatin [id number] UNIT/GM Externally Twice a day apply thin layer to the area 12h Sep, Sep, 07 days Active Gabapentin 300 MG Orally 4 times a day as needed 1 capsule Jan, 30 days Active RESULTS No Results PROCEDURES Procedure Date Ordered Result Body Site PENDING SALE TO [facility] VISIT ESTABLISHED PATIENT September 11, 2017 INSTRUCTIONS MEDICATIONS ADMINISTERED No Known [...] Cancer Head and Neck 2004 Hospitalization History [facility] Psychiatric Admission 2015
[2017-11-25] MEDS ORDERED: ASPIRIN 81 MG CHEW (CHILDREN'S ASA) PO ONE (12:30)
--- OUTSIDE RECORDS SUMMARY | 2017-11-25 12:30 | XMS REPORT ---
Author Author MICHELLE DARCI [facility] Address [address] [place] [address] Care Team Providers Care Open Die Inspector Name Role Phone MICHELLE, DARCI Unavailable PROBLEMS Type Condition ICD9-CM Code BMM89-[place] Code Onset Dates Condition Status SNOMED Code Problem Gastroesophageal reflux disease with esophagitis K21.0 Active 891681126 Problem Polysubstance (including opioids) dependence with physiol dependence F19.20 Active 65027902 Problem History of esophageal cancer Z85.01 Active 975973786 Problem Seasonal allergies J30.2 Active 585673856 Problem Pre-diabetes R73.03 Active 541544063 Problem GERD (gastroesophageal reflux disease) K21.9 Active 516599233 Problem Borderline personality disorder F60.3 Active 61576530 Problem Pure hypercholesterolemia E78.00 Active 722118425 Problem Nephrolithiasis N20.0 Active 91218175 Problem STATE HEP A (ADULT) DX V05.3 Active 227309531 Problem Bipolar 1 disorder, depressed, moderate F31.32 Active 54153082 Problem Anxiety F41.9 Active 00604951 Problem Vitamin D insufficiency E55.9 Active 309132775 Problem Essential hypertension I10 Active 93920845 Problem Elevated serum creatinine R79.89 Active 818211647 Problem Acquired hypothyroidism E03.9 Active 280353183 ALLERGIES No Information ENCOUNTERS Encounter Location Date Diagnosis [facility] [address] [id number] [address] Nov, [facility] [id number] [place] [address] 56701- 9526 Oct, Bipolar 1 disorder, depressed, moderate F31.32 ; Anxiety F41.9 ; Borderline personality disorder F60.3 ; Polysubstance (including opioids ) dependence with physiol dependence F19.20 and Other detention (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 Z79.899 [facility] [address] [place] [address] 72243- 2465 Oct, Bipolar 1 disorder, depressed, moderate F31.32 [facility] [id number] [place] [address] [id number] Sep, Encounter for dental examination Z01.20 [facility] [id number] [place] [address] 56283- 4137 Sep, Acute oral pain K13.79 [facility] [id number] [place] [address] 96171- 9055 Sep, Bipolar 1 disorder, depressed, moderate F31.32 [place] [address] 29114- 2462 Sep, Bipolar 1 disorder, depressed, moderate F31.32 [facility] [id number] [place] [address] 19119- 5965 Sep, Bipolar 1 disorder, depressed, moderate F31.32 [facility] [id number] [place] [address] 50122- 1338 Sep, Essential hypertension I10 ; Acquired hypothyroidism E03.9 ; Anxiety F41.9 ; Chronic nausea R11.0 and Irritant contact dermatitis due to plants, except food L24.7 [facility] [address] [place] [address] 13983- 9394 Aug, Bipolar 1 disorder, depressed, moderate F31.32 [facility] [address] [place] [address] 29049- 5039 Aug, Bipolar 1 disorder, depressed, moderate F31.32 [facility] [id number] [place] [address] 31123- 6508 Aug, Bipolar 1 disorder, depressed, moderate F31.32 [facility] [id number] [place] [address] 19320- 4264 July, Candidal dermatitis B37.2 [facility] [address] 02649- 5166 July, Acquired hypothyroidism E03.9 [facility] [id number] [place] [address] 02596- 5892 July, Bipolar 1 disorder, depressed, moderate F31.32 [facility] [id number] [place] [address] 94500 -9733 July, Seasonal allergies J30.2 [facility] [address] 295392- 9898 July, Bipolar 1 disorder, depressed, moderate F31.32 [place] [id number] [place] [address] 32528- 3402 Jun, Pre-diabetes R73.03 [place] [id number] [place] [address] 90497- 8335 Jun, Bipolar 1 disorder, depressed, moderate F31.32 ; Anxiety F41.9 ; Borderline personality disorder F60.3 ; Polysubstance (including opioids ) dependence with physiol dependence F19.20 and Other specified abnormal findings of blood chemistry R79.89 [facility] [id number] [place] [address] 10795- 3701 Jun, Bipolar 1 disorder, depressed, moderate F31.32 [place] [id number] [place] [address] 40182- 7176 May, Bipolar 1 disorder, depressed, moderate F31.32 [facility] [id number] [place] [address] 03850- 6003 May, Bipolar 1 disorder, depressed, moderate F31.32 [facility] [id number] [place] [address] 44302- 6711 May, [place] [id number] [place] [address] 14825- 9915 May, [facility] [id number] [place] [address] 91625- 6214 May, Bipolar 1 disorder, depressed, moderate F31.32 [place] [address] 51348- 3673 May, Bipolar 1 disorder, depressed, moderate F31.32 [place] [phone]- 9362 May, Other specified abnormal findings of blood chemistry R79.89 [place]28784- 5722 08 May, 2017 Essential hypertension I10 ; Acquired hypothyroidism E03.9 ; Gastroesophageal reflux disease with esophagitis K21.0 ; Hair loss L65.9 ; Hypokalemia, gastrointestinal losses E87.6 ; Pre-diabetes R73.03 ; Candidal dermatitis B37.2 and Pure hypercholesterolemia E78.00 [place] [address] 53366- 6439 Apr, Bipolar 1 disorder, depressed, moderate F31.32 [place] [address] [phone]- 9457 Apr, Bipolar 1 disorder, depressed, moderate F31.32 [place] [address] 29323- 7690 Apr, Bipolar 1 disorder, depressed, moderate F31.32 and Anxiety F41.9 [facility] [address] 23266 -7649 Mar, Encounter for immunization Z23 ; Fall, initial encounter W19.XXXA ; Rib pain on left side R07.81 and Left hip pain M25.552 [place] [address] 33341- 9054 Mar, Bipolar 1 disorder, depressed, moderate F31.32 and Anxiety F41.9 [place] [address] 70651- 6309 Mar, Bipolar 1 disorder, depressed, moderate F31.32 ; Anxiety F41.9 ; Borderline personality disorder F60.3 and Polysubstance (including opioids) dependence with physiol dependence F19.20 [facility] [id number] [place] [address] 57713- 0705 Mar, Bipolar 1 disorder, depressed, moderate F31.32 and Anxiety F41.9 [facility] [id number] [place] [address] 74110 -9624 Feb, Irritant contact dermatitis, unspecified trigger L24.9 [facility] [address] 79781- 6217 Feb, [facility] [address] 86159- 5849 Feb, [place] [address] 36799- 2539 Feb, Bipolar 1 disorder, depressed, moderate F31.[address] [facility] [address] 85381- 5750 Feb, Acute non-recurrent maxillary sinusitis J01.00 [facility] [id number] [place] [address] 85921- 7461 Feb, [facility] [id number] [place] [address] 02078- 1108 Feb, Bipolar 1 disorder, depressed, moderate F31.32 [facility] [id number] [place] [address] 15286- 9836 Jan, [facility] [id number] [place] [address] 25265- 9872 Jan, Bipolar 1 disorder, depressed, moderate F31.32 ; Anxiety F41.9 ; Borderline personality disorder F60.3 and Polysubstance (including opioids) dependence with physiol dependence F19.20 [facility] [id number] [place] [address] 78777- 9299 27 Jan, 2017 Bipolar 1 disorder, depressed, moderate F31.32 and Anxiety F41.9 [place] [id number] [place] [address] 15313- 1128 Jan, Bipolar 1 disorder, depressed, moderate F31.32 ; Anxiety F41.9 ; Borderline personality disorder F60.3 and Polysubstance (including opioids) dependence with physiol dependence F19.20 [place] [address] 33937- 9299 Jan, Bipolar 1 disorder, depressed, moderate F31.32 and Anxiety F41.9 [place] [address] 30036- 5779 Dec, Hypokalemia, gastrointestinal losses E87.6 ; GERD ( gastroesophageal reflux disease) K21.9 and Bipolar 1 disorder, depressed, moderate F31.[address] 06310- 0412 Dec, Bipolar 1 disorder, depressed, moderate F31.32 and Anxiety F41.9 [facility] [address] 04358 -1724 Dec, [address] 22004- 0865 Dec, [facility] [address] 79134 -0789 Dec, Fall (on) (from) other stairs and steps, initial encounter W10.8XXA ; Laceration of left lower extremity, initial encounter S81.812A ; Contusion of right knee, initial encounter S80.01XA and Contusion of right shoulder, initial encounter S40.011A [address] 41015- 5066 Dec, Bipolar 1 disorder, depressed, moderate F31.32 ; Anxiety F41.9 ; Borderline personality disorder F60.3 and Polysubstance (including opioids) dependence with physiol dependence F19.[address] 42056- 0687 Dec, Bipolar 1 disorder, depressed, moderate F31.32 and Anxiety F41.9 [place] [address] 40538- 7615 Dec, [place] [address] 55012- 2087 Dec, Hospital discharge follow-up Z09 ; Nephrolithiasis N20.0 ; Essential hypertension I10 ; Gastroesophageal reflux disease with esophagitis K21.0 and Anxiety F41.9 [place] [address] 14593- 0829 28 Nov, 2016 [facility] [place] [address] 90942 -4332 Nov, Dysuria R30.0 and Acute cystitis with hematuria N30.01 [facility] [place] [address] 73950 -1643 Nov, [place] [address] 45138- 3354 Nov, [place] [address] 41110- 9282 Nov, Gastroesophageal reflux disease with esophagitis K21.0 ; Hypercholesteremia E78.00 and Acquired hypothyroidism E03.9 [facility] [place] [address] 57001 -9189 Nov, Left wrist pain M25.532 and Contusion of left wrist, initial encounter S60.212A [place] [address] 15709- 6483 18 Nov, 2016 Bipolar 1 disorder, depressed, moderate F31.32 ; Anxiety F41.9 ; Borderline personality disorder F60.3 and Polysubstance (including opioids) dependence with physiol dependence F19.20 [facility] [place] [address] 15791 -7985 15 Nov, 2016 Abdominal pain R10.9 and GERD (gastroesophageal reflux disease) K21.9 [place] [id number] [place] [address] 28383- 8450 12 Nov, 2016 Hypokalemia, gastrointestinal losses E87.6 [place] [address] 545361- 6006 11 Nov, 2016 Dehydration E86.0 ; Hypokalemia, gastrointestinal losses E87.6 and Vaginal candidiasis B37.[address] 283945- 4016 08 Nov, 2016 Abnormal weight loss R63.4 ; Diarrhea, unspecified R19.7 ; Vomiting, unspecified R11.10 ; Generalized abdominal pain R10.84 and Decreased breath sounds R06.89 [place] [address] 19180- 8947 Oct, Bipolar 1 disorder, depressed, moderate F31.32 and Anxiety F41.[address] 94878- 1540 Sep, Bipolar 1 disorder, depressed, moderate F31.32 ; Anxiety F41.9 ; Borderline personality disorder F60.3 and Polysubstance (including opioids) dependence with physiol dependence F19.20 [place] [address] 54178- 6681 Sep, Bipolar 1 disorder, depressed, moderate F31.32 and Anxiety F41.9 [place] [id number] [place] [address] 00854- 7337 Sep, Bipolar 1 disorder, depressed, moderate F31.32 [place] [address] 71486- 9582 Sep, Bipolar 1 disorder, depressed, moderate F31.32 and Anxiety F41.9 [facility] [id number] [place] [address] 06171 -3167 Sep, Pain of toe of right foot M79.674 [place] [address] 21623- 4055 Sep, [facility] [id number] [place] [address] 55028 -0475 15 Sep, 2016 Cellulitis of right ankle L03.115 [facility] [id number] [place] [address] 79126- 3782 Sep, Bipolar 1 disorder, depressed, moderate F31.32 and Anxiety F41.9 [place] [id number] [place] [address] 46086- 7294 Sep, [place] [id number] [place] [address] 82681- 8154 Sep, [facility] [id number] [place] [address] 41223- 6811 Sep, Bipolar 1 disorder, depressed, moderate F31.32 and Anxiety F41.9 [place] [id number] [place] [address] 48940- 2026 Sep, Accidental spider bite T63.301A [place] [address] 91169- 3788 Aug, Bipolar 1 disorder, depressed, moderate F31.32 ; Anxiety F41.9 ; Borderline personality disorder F60.3 and Polysubstance (including opioids) dependence with physiol dependence F19.20 [place] [id number] [place] [address] 87413- 9185 Aug, [place] [id number] [place] [address] 07379- 7869 Aug, Bipolar 1 disorder, depressed, moderate F31.32 and Anxiety F41.[address] 00449- 1436 Aug, Pre-diabetes R73.03 ; Acute seasonal allergic rhinitis due to pollen J30.1 ; Hypercholesteremia E78.00 and Nausea R11.0 [place] [address] 30714- 5075 Aug, [facility] [address] [place] [address] 93499- 0501 Aug, Bipolar 1 disorder, depressed, moderate F31.[address] [facility] [address] [place] [address] 48735- 2630 Aug, [place] [id number] [place] [address] 97390- 7639 Aug, [place] [id number] [place] [address] 05699- 5328 Aug, [place] [id number] [place] [address] 32815- 2728 Aug, Bipolar 1 disorder, depressed, moderate F31.32 and Anxiety F41.9 [place] [id number] [place] [address] 28353- 8050 Aug, [facility] [address] [place] [address] 38534 -9475 Aug, Insect bite, initial encounter W57.XXXA and Cellulitis of left lower leg L03.116 [place] [id number] [place] [address] 00481- 9163 Aug, Bipolar 1 disorder, depressed, moderate F31.32 and Borderline personality disorder F60.3 [place] [id number] [place] [address] 97403- 0805 July, [place] [address] [place] [address] 89812- 1808 July, [place] [id number] [place] [address] 81622- 9991 July, Encounter for routine adult health examination with abnormal findings Z00.01 ; History of esophageal cancer Z85.01 ; Bipolar 1 disorder, depressed, moderate F31.32 ; Anxiety F41.9 ; Acquired hypothyroidism E03.9 ; Essential hypertension I10 ; Gastroesophageal reflux disease with esophagitis K21.0 and Encounter for immunization Z23 [place] [address] [place] [address] 55744- 7882 July, Bipolar 1 disorder, depressed, moderate F31.32 and Anxiety F41.9 [place] [id number] [place] [address] 71032- 7954 July, [place] [id number] [place] [address] 304377- 5734 July, Bipolar 1 disorder, depressed, moderate F31.32 and Anxiety F41.9 [place] [id number] [place] [address] 28243- 5473 July, Bipolar 1 disorder, depressed, moderate F31.32 [place] [id number] [place] [address] 37552- 1293 July, Bipolar 1 disorder, depressed, moderate F31.32 and Anxiety F41.9 [place] [id number] [place] [address] 91029- 4648 Jun, Bipolar 1 disorder, depressed, moderate F31.32 [place] [id number] [place] [address] 84869- 5127 Jun, Bipolar 1 disorder, depressed, moderate F31.32 and Borderline personality disorder F60.3 [place] [id number] [place] [address] 35861- 7409 Jun, Bipolar 1 disorder, depressed, moderate F31.32 [place] [id number] [place] [address] 37769- 2395 Jun, Bipolar 1 disorder, depressed, moderate F31.32 [place] [id number] [place] [address] 55847- 0268 May, Bipolar 1 disorder, depressed, moderate F31.32 and Anxiety F41.9 [place] [id number] [place] [address] 90843- 0648 May, Bipolar 1 disorder, depressed, moderate F31.[address] [facility] [id number] [place] [address] 95037- 0390 May, Bipolar 1 disorder, depressed, moderate F31.[address] [facility] [id number] [place] [address] 64597- 3658 May, Bipolar 1 disorder, depressed, moderate F31.32 and Borderline personality disorder F60.3 [facility] [id number] [place] [address] 15960- 1162 May, [facility] [id number] [place] [address] 50535- 7385 May, Bipolar 1 disorder, depressed, moderate F31.32 and Anxiety F41.9 [place] [id number] [place] [address] 88178- 0280 May, Bipolar 1 disorder, depressed, moderate F31.32 and Anxiety F41.9 [place] [id number] [place] [address] 95032- 4928 May, [place] [address] 068193- 5047 May, Bipolar 1 disorder, depressed, moderate F31.32 [place] [id number] [place] [address] 61405- 6253 May, Bipolar 1 disorder, depressed, moderate F31.32 and Generalized anxiety disorder F41.1 [facility] [id number] [place] [address] 68439- 6189 Apr, Bipolar 1 disorder, depressed, moderate F31.[address] [facility] [id number] [place] [address] 91224- 1098 Apr, [facility] [id number] [place] [address] 47680- 9378 13 Apr, 2016 Bipolar 1 disorder, depressed, moderate F31.32 and Anxiety F41.9 [place] [address] [place] [address] 11812- 4542 09 Apr, 2016 Bipolar 1 disorder, depressed, moderate F31.32 and Anxiety F41.9 [place] [address] [place] [address] 91311- 8906 07 Apr, 2016 Bipolar affective disorder, depressed, severe F31.4 and Generalized anxiety disorder F41.1 [place] [id number] [place] [address] 18462- 1363 Mar, Bipolar 1 disorder, depressed, moderate F31.32 and Anxiety F41.9 [place] [id number] [place] [address] 08401- 4519 Mar, Bipolar 1 disorder, depressed, moderate F31.32 and Anxiety F41.9 [place] [id number] [place] [address] 91842- 3010 Mar, Bipolar 1 disorder, mixed, moderate F31.62 [place] [address] [place] [address] 99973- 4369 Mar, [place] [id number] [place] [address] 73831- 0362 Mar, Bipolar 1 disorder, mixed, moderate F31.62 ; Generalized anxiety disorder F41.1 and Other detention (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 Z79.899 [place] [address] [place] [address] 12131- 2117 Feb, Bipolar 1 disorder, depressed, moderate F31.32 and Anxiety F41.9 [place] [address] [place] [address] 92972- 3688 Feb, Bipolar 1 disorder, depressed, moderate F31.32 and Other patient intake representative (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 Z79.899 [facility] [address] [place] [address] 88849- 4832 Feb, [place] [id number] [place] [address] 48411- 1626 Feb, Bipolar 1 disorder, depressed, moderate F31.[address] [facility] [address] [place] [address] 188569- 6074 Feb, Bipolar 1 disorder, depressed, moderate F31.32 and Other patient intake representative (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 Z79.899 [facility] [id number] [place] [address] 63462- 2730 Feb, Bipolar 1 disorder, depressed, moderate F31.32 and Anxiety F41.9 [place] [id number] [place] [address] 991656- 5826 Dec, Bipolar 1 disorder, depressed, moderate F31.32 and Anxiety F41.9 [place] [id number] [place] [address] 64177- 3707 Oct, [place] [id number] [place] [address] 359027- 2704 Oct, [facility] [id number] [place] [address] 10237- 0437 May, [place] [id number] [place] [address] 69586- 8945 May, [facility] [id number] [place] [address] 79507- 8830 Mar, [place] [address] [place] [id number] [place] [address] [phone] Mar, IMMUNIZATIONS No Known Immunizations SOCIAL HISTORY Never Assessed REASON FOR VISIT med refill PLAN OF CARE VITAL SIGNS MEDICATIONS Medication Instructions Dosage Frequency Start Date End Date Duration Status Latuda 40 mg Orally Once a day at supper 1 tablet with food Jan, 30 days Active Lexapro 20 mg Orally Once a day 1 tablet 24h Mar, 30 days Active RESULTS No Results PROCEDURES [...] and Neck 2004 Hospitalization History [facility] 2016
--- OUTSIDE RECORDS SUMMARY | 2017-11-25 12:30 | XMS REPORT ---
Author Author GURINDER NORTON Organization [facility] Address [address] [place] [address] Care Team Providers Care Saw Grinder Name Role Phone GURINDER NORTON Unavailable PROBLEMS Type Condition ICD9-CM Code NXB78-LO Code Onset Dates Condition Status SNOMED Code Problem Gastroesophageal reflux disease with esophagitis K21.0 Active 716067941 Problem Polysubstance (including opioids) dependence with physiol dependence F19.20 Active 94214750 Problem History of esophageal cancer Z85.01 Active 945724847 Problem Seasonal allergies J30.2 Active 520972763 Problem Pre-diabetes R73.03 Active 087941486 Problem GERD (gastroesophageal reflux disease) K21.9 Active 882098928 Problem Borderline personality disorder F60.3 Active 94164073 Problem Pure hypercholesterolemia E78.00 Active 116004496 Problem Nephrolithiasis N20.0 Active 65236308 Problem STATE HEP A (ADULT) DX V05.3 Active 085999300 Problem Bipolar 1 disorder, depressed, moderate F31.32 Active 01212166 Problem Anxiety F41.9 Active 38670216 Problem Vitamin D insufficiency E55.9 Active 114385841 Problem Essential hypertension I10 Active 11329892 Problem Elevated serum creatinine R79.89 Active 325835090 Problem Acquired hypothyroidism E03.9 Active 877183470 ALLERGIES No Information ENCOUNTERS Encounter Location Date Diagnosis [facility] [address] [address] Nov, [facility] [id number] [place] [address] 03969- 1328 Oct, Bipolar 1 disorder, depressed, moderate F31.32 ; Anxiety F41.9 ; Borderline personality disorder F60.3 ; Polysubstance (including opioids ) dependence with physiol dependence F19.20 and Other oysterman (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 Z79.899 [facility] [address] [place] [id number] [place] [address] 23461- 8226 Oct, Bipolar 1 disorder, depressed, moderate F31.32 [facility] [address] [id number] Sep, Encounter for dental examination Z01.20 [facility] [address] 93256- 4390 Sep, Acute oral pain K13.79 [facility] [address] 12766- 2492 Sep, Bipolar 1 disorder, depressed, moderate F31.32 [place] [address] 576122- 7589 Sep, Bipolar 1 disorder, depressed, moderate F31.32 [place] [address] [place] [id number] [place] [address] 00586- 6163 Sep, Bipolar 1 disorder, depressed, moderate F31.32 [place] [address] 14823- 3670 Sep, Essential hypertension I10 ; Acquired hypothyroidism E03.9 ; Anxiety F41.9 ; Chronic nausea R11.0 and Irritant contact dermatitis due to plants, except food L24.7 [place] [address] [place] [id number] [place] [address] 99538- 4783 Aug, Bipolar 1 disorder, depressed, moderate F31.32 [place] [address] [place] [id number] [place] [address] 25743- 9663 Aug, Bipolar 1 disorder, depressed, moderate F31.32 [place] [address] [place] [id number] [place] [address] 03618- 2387 Aug, Bipolar 1 disorder, depressed, moderate F31.32 [facility] [id number] [place] [address] 88486- 0289 July, Candidal dermatitis B37.2 [place] [address] 60891- 7666 July, Acquired hypothyroidism E03.9 [facility] [id number] [place] [address] 82019- 0120 July, Bipolar 1 disorder, depressed, moderate F31.32 [facility] [id number] [place] [address] 83135 -8611 July, Seasonal allergies J30.2 [facility] [address] 22151- 2101 July, Bipolar 1 disorder, depressed, moderate F31.32 [place] [address] [id number] [place] [address] 43651- 3028 Jun, Pre-diabetes R73.03 [place] [address] [address] [id number] [place] [address] 89298- 6396 Jun, Bipolar 1 disorder, depressed, moderate F31.32 ; Anxiety F41.9 ; Borderline personality disorder F60.3 ; Polysubstance (including opioids ) dependence with physiol dependence F19.20 and Other specified abnormal findings of blood chemistry R79.89 [place] [address] [id number] [place] [address] 49321- 9319 Jun, Bipolar 1 disorder, depressed, moderate F31.32 [place] [address] [place] [id number] [place] [address] 89599- 1587 May, Bipolar 1 disorder, depressed, moderate F31.32 [facility] [id number] [place] [address] 36401- 2964 May, Bipolar 1 disorder, depressed, moderate F31.32 [place] [id number] [place] [address] 12005- 7916 May, [place] [id number] [place] [address] 77414- 6157 May, [place] [address] [address] [id number] [place] [address] 16392- 1437 May, Bipolar 1 disorder, depressed, moderate F31.32 [place] [address] [place] [id number] [place] [address] 82696- 6096 May, Bipolar 1 disorder, depressed, moderate F31.32 [place] [address] [place] [address] 5788 May, Other specified abnormal findings of blood chemistry R79.[address] 4793 May, Essential hypertension I10 ; Acquired hypothyroidism E03.9 ; Gastroesophageal reflux disease with esophagitis K21.0 ; Hair loss L65.9 ; Hypokalemia, gastrointestinal losses E87.6 ; Pre-diabetes R73.03 ; Candidal dermatitis B37.2 and Pure hypercholesterolemia E78.[address] 55270- 413 Apr, Bipolar 1 disorder, depressed, moderate F31.32 [place] [address]252 5795 Apr, Bipolar 1 disorder, depressed, moderate F31.[address] 49701 4368 Apr, Bipolar 1 disorder, depressed, moderate F31.32 and Anxiety F41.9 [facility] [address] 22646 -3737 Mar, Encounter for immunization Z23 ; Fall, initial encounter W19.XXXA ; Rib pain on left side R07.81 and Left hip pain M25.[address] 31517- 0833 Mar, Bipolar 1 disorder, depressed, moderate F31.32 and Anxiety F41.9 [place] [address] 02928- 5248 Mar, Bipolar 1 disorder, depressed, moderate F31.32 ; Anxiety F41.9 ; Borderline personality disorder F60.3 and Polysubstance (including opioids) dependence with physiol dependence F19.20 [facility] [id number] [place] [address] 76115- 5660 Mar, Bipolar 1 disorder, depressed, moderate F31.32 and Anxiety F41.9 [facility] [id number] [place] [address] 34601 -7448 28 Feb, 2017 Irritant contact dermatitis, unspecified trigger L24.9 [facility] [address] 47430- 5618 Feb, [facility] [address] 93533- 9965 Feb, [place] [address] 49827- 7997 Feb, Bipolar 1 disorder, depressed, moderate F31.32 and Anxiety F41.9 [facility] [address] 70301- 7685 Feb, Acute non-recurrent maxillary sinusitis J01.00 [facility] [id number] [place] [address] 90292- 1778 Feb, [place] [address] 81456- 5219 Feb, Bipolar 1 disorder, depressed, moderate F31.32 [facility] [id number] [place] [address] 46866- 3722 Jan, [facility] [id number] [place] [address] 70829- 3840 Jan, Bipolar 1 disorder, depressed, moderate F31.32 ; Anxiety F41.9 ; Borderline personality disorder F60.3 and Polysubstance (including opioids) dependence with physiol dependence F19.20 [facility] [id number] [place] [address] 01569- 5878 27 Jan, 2017 Bipolar 1 disorder, depressed, moderate F31.32 and Anxiety F41.9 [facility] [id number] [place] [address] 96557- 1407 Jan, Bipolar 1 disorder, depressed, moderate F31.32 ; Anxiety F41.9 ; Borderline personality disorder F60.3 and Polysubstance (including opioids) dependence with physiol dependence F19.20 [place] [id number] [place] [address] 59393- 9376 Jan, Bipolar 1 disorder, depressed, moderate F31.32 and Anxiety F41.9 [place] [id number] [place] [address] 15539- 9594 Dec, Hypokalemia, gastrointestinal losses E87.6 ; GERD ( gastroesophageal reflux disease) K21.9 and Bipolar 1 disorder, depressed, moderate F31.[address] 45354- 5575 Dec, Bipolar 1 disorder, depressed, moderate F31.32 and Anxiety F41.9 [facility] WALK [place] [id number] [place] [address] 27553 -5947 Dec, [address] 22677- 5055 Dec, [facility] [address] 0[address]99 -2965 Dec, Fall (on) (from) other stairs and steps, initial encounter W10.8XXA ; Laceration of left lower extremity, initial encounter S81.812A ; Contusion of right knee, initial encounter S80.01XA and Contusion of right shoulder, initial encounter S40.011A [place] [id number] [place] [address] 97027- 3350 Dec, Bipolar 1 disorder, depressed, moderate F31.32 ; Anxiety F41.9 ; Borderline personality disorder F60.3 and Polysubstance (including opioids) dependence with physiol dependence F19.20 [place] [id number] [place] [address] 14162- 1397 09 Dec, 2016 Bipolar 1 disorder, depressed, moderate F31.32 and Anxiety F41.9 [place] [address] [address] [id number] [place] [address] 62340- 554 Dec, [place] [address] [place] [address] 201 Dec, Hospital discharge follow-up Z09 ; Nephrolithiasis N20.0 ; Essential hypertension I10 ; Gastroesophageal reflux disease with esophagitis K21.0 and Anxiety F41.9 [place] [address] 96615- 8980 28 Nov, 2016 [facility] WALK IN [place] [address] 61089 0717 24 Nov, 2016 Dysuria R30.0 and Acute cystitis with hematuria N30.01 [facility] [place] [address] 71681 -7590 Nov, [place] [address] 02974- 9386 Nov, [place] [address] 87208- 5401 19 Nov, 2016 Gastroesophageal reflux disease with esophagitis K21.0 ; Hypercholesteremia E78.00 and Acquired hypothyroidism E03.9 [facility] [place] [address] 33623 -0348 18 Nov, 2016 Left wrist pain M25.532 and Contusion of left wrist, initial encounter S60.212A [place] [address] [address] [id number] [place] [address] 62319- 4312 18 Nov, 2016 Bipolar 1 disorder, depressed, moderate F31.32 ; Anxiety F41.9 ; Borderline personality disorder F60.3 and Polysubstance (including opioids) dependence with physiol dependence F19.20 [facility] [address] 81206 -3459 15 Nov, 2016 Abdominal pain R10.9 and GERD (gastroesophageal reflux disease) K21.9 [place] [address] [id number] [place] [address] 00928- 3953 12 Nov, 2016 Hypokalemia, gastrointestinal losses E87.6 [place] [address] 72401- 0902 11 Nov, 2016 Dehydration E86.0 ; Hypokalemia, gastrointestinal losses E87.6 and Vaginal candidiasis B37.[address] 18017- 5654 08 Nov, 2016 Abnormal weight loss R63.4 ; Diarrhea, unspecified R19.7 ; Vomiting, unspecified R11.10 ; Generalized abdominal pain R10.84 and Decreased breath sounds R06.89 [place] 978250- 466 Oct, Bipolar 1 disorder, depressed, moderate F31.32 and Anxiety F41.[address] 70712- 0324 Sep, Bipolar 1 disorder, depressed, moderate F31.32 ; Anxiety F41.9 ; Borderline personality disorder F60.3 and Polysubstance (including opioids) dependence with physiol dependence F19.20 [place] [address] 28219- 9041 Sep, Bipolar 1 disorder, depressed, moderate F31.32 and Anxiety F41.9 [place] [address] 68183- 9013 Sep, Bipolar 1 disorder, depressed, moderate F31.[address] 81134- 7406 Sep, Bipolar 1 disorder, depressed, moderate F31.32 and Anxiety F41.9 [facility] [address] 40784 -3876 Sep, Pain of toe of right foot M79.674 [place] [address] 88683- 3337 Sep, [facility] [id number] [place] [address] 76687 -9295 Sep, Cellulitis of right ankle L03.115 [facility] [id number] [place] [address] 71580- 3171 Sep, Bipolar 1 disorder, depressed, moderate F31.32 and Anxiety F41.9 [facility] [address] 58228- 9154 Sep, [place] [address] 15326- 2151 Sep, [facility] [address] 80168- 2506 Sep, Bipolar 1 disorder, depressed, moderate F31.32 and Anxiety F41.9 [place] [address] [place] [id number] [place] [address] 20408- 0412 Sep, Accidental spider bite T63.301A [place] [address] 74836- 4781 Aug, Bipolar 1 disorder, depressed, moderate F31.32 ; Anxiety F41.9 ; Borderline personality disorder F60.3 and Polysubstance (including opioids) dependence with physiol dependence F19.20 [place] [address] [place] [id number] [place] [address] 31465- 0532 Aug, [place] [address] 51822- 0909 Aug, Bipolar 1 disorder, depressed, moderate F31.32 and Anxiety F41.9 [place] [address] 05285- 3994 Aug, Pre-diabetes R73.03 ; Acute seasonal allergic rhinitis due to pollen J30.1 ; Hypercholesteremia E78.00 and Nausea R11.0 [place] [address] 85390- 0267 Aug, [facility] [address] [place] [address] 98583- 6292 Aug, Bipolar 1 disorder, depressed, moderate F31.32 and Anxiety F41.9 [facility] [address] [place] [id number] [place] [address] 08157- 5040 Aug, [place] [address] [place] [id number] [place] [address] 45663- 8755 Aug, [place] [address] [place] [id number] [place] [address] 70566- 2057 Aug, [place] [address] 96868- 5410 Aug, Bipolar 1 disorder, depressed, moderate F31.32 and Anxiety F41.9 [place] [address] [place] [id number] [place] [address] 81169- 7422 Aug, [facility] [id number] [place] [address] 38608 -5195 Aug, Insect bite, initial encounter W57.XXXA and Cellulitis of left lower leg L03.116 [place] [address] [place] [id number] [place] [address] 84738- 9113 Aug, Bipolar 1 disorder, depressed, moderate F31.32 and Borderline personality disorder F60.3 [place] [address] [place] [id number] [place] [address] 03730- 3873 July, [place] [address] [place] [id number] [place] [address] 37674- 1084 July, [place] [id number] [place] [address] 94930- 2686 July, Encounter for routine adult health examination with abnormal findings Z00.01 ; History of esophageal cancer Z85.01 ; Bipolar 1 disorder, depressed, moderate F31.32 ; Anxiety F41.9 ; Acquired hypothyroidism E03.9 ; Essential hypertension I10 ; Gastroesophageal reflux disease with esophagitis K21.0 and Encounter for immunization Z23 [place] [address] [place] [id number] [place] [address] 86913- 8909 July, Bipolar 1 disorder, depressed, moderate F31.32 and Anxiety F41.9 [place] [address] [place] [id number] [place] [address]- 8058 July, [place] [address] [place] [id number] [place] [address] July, Bipolar 1 disorder, depressed, moderate F31.32 and Anxiety F41.9 [place] [address] [place] [id number] [place] [address] 847155- 8471 July, Bipolar 1 disorder, depressed, moderate F31.32 [place] [address] [place] [id number] [place] [address]- 5008 July, Bipolar 1 disorder, depressed, moderate F31.32 and Anxiety F41.9 [place] [address] [place] [id number] [place] [address] 24778- 9547 Jun, Bipolar 1 disorder, depressed, moderate F31.32 [place] [address] [place] [id number] [place] [address] 96836- 9874 Jun, Bipolar 1 disorder, depressed, moderate F31.32 and Borderline personality disorder F60.3 [place] [address] [place] [id number] [place] [address] 40833- 6973 Jun, Bipolar 1 disorder, depressed, moderate F31.32 [place] [address] [place] [id number] [place] [address] 85931- 1272 Jun, Bipolar 1 disorder, depressed, moderate F31.32 [place] [address] [place] [id number] [place] [address] 37255- 6098 May, Bipolar 1 disorder, depressed, moderate F31.32 and Anxiety F41.9 [place] [address] [place] [id number] [place] [address] 96554- 2001 May, Bipolar 1 disorder, depressed, moderate F31.32 and Anxiety F41.9 [facility] [address] [place] [address] 96154- 8519 May, Bipolar 1 disorder, depressed, moderate F31.32 and Anxiety F41.9 [facility] [address] [place] [id number] [place] [address] 33306- 3447 May, Bipolar 1 disorder, depressed, moderate F31.32 and Borderline personality disorder F60.3 [place] [address] [place] [id number] [place] [address] 47220- 6751 May, [place] [address] [place] [id number] [place] [address] 51419- 9787 May, Bipolar 1 disorder, depressed, moderate F31.32 and Anxiety F41.9 [place] [address] [place] [id number] [place] [address] 68441- 9917 May, Bipolar 1 disorder, depressed, moderate F31.32 and Anxiety F41.9 [place] [address] [place] [id number] [place] [address] 87099- 4168 May, [place] [address] [place] [id number] [place] [address] 03919- 4126 May, Bipolar 1 disorder, depressed, moderate F31.32 [place] [address] [place] [address] 32469- 7662 May, Bipolar 1 disorder, depressed, moderate F31.32 and Generalized anxiety disorder F41.1 [place] [address] [place] [address] 71404- 3527 Apr, Bipolar 1 disorder, depressed, moderate F31.32 and Anxiety F41.9 [place] [address] [place] [id number] [place] [address] 80895- 7522 27 Apr, 2016 [facility] [address] [place] [id number] [place] [address] 12080- 1403 13 Apr, 2016 Bipolar 1 disorder, depressed, moderate F31.32 and Anxiety F41.9 [place] [address] [place] [address] 74304- 2320 Apr, Bipolar 1 disorder, depressed, moderate F31.32 and Anxiety F41.9 [facility] [address] [place] [id number] [place] [address] 17995- 8812 Apr, Bipolar affective disorder, depressed, severe F31.4 and Generalized anxiety disorder F41.1 [place] [address] [place] [id number] [place] [address] 45504- 5652 Mar, Bipolar 1 disorder, depressed, moderate F31.32 and Anxiety F41.9 [place] [address] [place] [id number] [place] [address] 19587- 7528 Mar, Bipolar 1 disorder, depressed, moderate F31.32 and Anxiety F41.9 [place] [address] [place] [id number] [place] [address] 72346- 9987 Mar, Bipolar 1 disorder, mixed, moderate F31.62 [place] [address] [place] [id number] [place] [address] 19891- 0577 Mar, [place] [address] [place] [id number] [place] [address] 87437- 2324 Mar, Bipolar 1 disorder, mixed, moderate F31.62 ; Generalized anxiety disorder F41.1 and Other intermediate (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 Z79.899 [place] [address] [place] [address] 06041- 2782 Feb, Bipolar 1 disorder, depressed, moderate F31.32 and Anxiety F41.9 [facility] [address] [place] [address] 03138- 0286 Feb, Bipolar 1 disorder, depressed, moderate F31.32 and Other oysterman (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 Z79.899 [facility] [address] [place] [address] 26558- 0443 Feb, [facility] [address] [place] [id number] [place] [address] 21534- 1192 Feb, Bipolar 1 disorder, depressed, moderate F31.32 and Anxiety F41.9 [facility] [address] [place] [address] 77988- 5776 Feb, Bipolar 1 disorder, depressed, moderate F31.32 and Other intermediate (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 Z79.899 [facility] [address] [place] [id number] [place] [address] 43151- 0048 Feb, Bipolar 1 disorder, depressed, moderate F31.32 and Anxiety F41.9 [facility] [address] [place] [id number] [place] [address] 32683- 1023 Dec, Bipolar 1 disorder, depressed, moderate F31.32 and Anxiety F41.9 [facility] [address] [place] [id number] [place] [address] 95772- 0536 Oct, [facility] [address] [place] [id number] [place] [address] 61542- 6903 Oct, [facility] [address] [place] [id number] [place] [address] 27422- 0214 May, [facility] [address] [place] [id number] [place] [address] 15190- 7746 May, [facility] [address] [place] [id number] [place] [address] 72491- 7035 Mar, [facility] [address] [place] [id number] [place] [address] 01824- 8248 Mar, IMMUNIZATIONS No Known Immunizations SOCIAL HISTORY Never Assessed REASON FOR VISIT Follow-up Depression PLAN OF CARE Activity Details Follow Up 2 Weeks Reason: Follow-up VITAL SIGNS MEDICATIONS Unknown Medications RESULTS No Results PROCEDURES Procedure Date Ordered Result Body Site [facility] VIS[facility] MENTAL HEALTH ESTAB PT August 30, 2017 Psychotherapy, patient &/family, 30 minutes, established patient August 30, 2017 INSTRUCTIONS MEDICATIONS ADMINISTERED No Known Medications [...] Cancer Head and Neck 2004 Hospitalization History [facility] Psychiatric Admission 2015
[2017-11-25] MEDS: NITROGLYCERIN 0.4 MG SL TABS BTL 25'S SL PRN ×2 (12:31→12:38)
--- OUTSIDE RECORDS SUMMARY | 2017-11-25 12:31 | XMS REPORT ---
Author Author MICHELLE DARCI [facility] Address [address] [place] [address] Care Team Providers Care Stallion Keeper Name Role Phone MICHELLE, DARCI Unavailable PROBLEMS Type Condition ICD9-CM Code NFR14-MS Code Onset Dates Condition Status SNOMED Code Problem Gastroesophageal reflux disease with esophagitis K21.0 Active 467784369 Problem Polysubstance (including opioids) dependence with physiol dependence F19.20 Active 11675540 Problem History of esophageal cancer Z85.01 Active 838900496 Problem Seasonal allergies J30.2 Active 947053800 Problem Pre-diabetes R73.03 Active 166398332 Problem GERD (gastroesophageal reflux disease) K21.9 Active 189619714 Problem Borderline personality disorder F60.3 Active 82383234 Problem Pure hypercholesterolemia E78.00 Active 077852395 Problem Nephrolithiasis N20.0 Active 74109411 Problem STATE HEP A (ADULT) DX V05.3 Active 643956831 Problem Bipolar 1 disorder, depressed, moderate F31.32 Active 76042269 Problem Anxiety F41.9 Active 52877677 Problem Vitamin D insufficiency E55.9 Active 046606047 Problem Essential hypertension I10 Active 62816199 Problem Elevated serum creatinine R79.89 Active 144521596 Problem Acquired hypothyroidism E03.9 Active 993210487 ALLERGIES No Information ENCOUNTERS Encounter Location Date Diagnosis [facility] [id number] [address] Nov, [facility] [id number] [place] [address] 39248- 1429 Oct, Bipolar 1 disorder, depressed, moderate F31.32 ; Anxiety F41.9 ; Borderline personality disorder F60.3 ; Polysubstance (including opioids ) dependence with physiol dependence F19.20 and 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 Z79.899 [facility] [id number] [place] [address] 51402- 4894 Oct, Bipolar 1 disorder, depressed, moderate F31.32 [facility] [id number] [place] [address] [id number] Sep, Encounter for dental examination Z01.20 [facility] [id number] [place] [address] 16245- 1905 Sep, Acute oral pain K13.79 [facility] [id number] [place] [address] 92965- 7688 Sep, Bipolar 1 disorder, depressed, moderate F31.32 [place] [address] 80775- 8712 Sep, Bipolar 1 disorder, depressed, moderate F31.32 [facility] [id number] [place] [address] 61161- 8418 Sep, Bipolar 1 disorder, depressed, moderate F31.32 [facility] [id number] [place] [address] 75539- 7201 Sep, Essential hypertension I10 ; Acquired hypothyroidism E03.9 ; Anxiety F41.9 ; Chronic nausea R11.0 and Irritant contact dermatitis due to plants, except food L24.7 [facility] [id number] [place] [address] 49860- 4568 Aug, Bipolar 1 disorder, depressed, moderate F31.32 [facility] [id number] [place] [address] 35940- 2591 Aug, Bipolar 1 disorder, depressed, moderate F31.32 [facility] [id number] [place] [address] 23542- 0058 Aug, Bipolar 1 disorder, depressed, moderate F31.32 [facility] [id number] [place] [address] 86175- 7572 July, Candidal dermatitis B37.2 [facility] [address] 05626- 0822 July, Acquired hypothyroidism E03.9 [facility] [id number] [place] [address] 59136- 9873 July, Bipolar 1 disorder, depressed, moderate F31.32 [facility] [id number] [place] [address] 93203 -2312 July, Seasonal allergies J30.2 [facility] [address] 309206- 7828 July, Bipolar 1 disorder, depressed, moderate F31.32 [place] [id number] [place] [address] 53958- 0301 Jun, Pre-diabetes R73.03 [place] [id number] [place] [address] 33459- 5275 Jun, Bipolar 1 disorder, depressed, moderate F31.32 ; Anxiety F41.9 ; Borderline personality disorder F60.3 ; Polysubstance (including opioids ) dependence with physiol dependence F19.20 and Other specified abnormal findings of blood chemistry R79.89 [facility] [id number] [place] [address] 71841- 1382 Jun, Bipolar 1 disorder, depressed, moderate F31.32 [place] [id number] [place] [address] 17694- 0589 May, Bipolar 1 disorder, depressed, moderate F31.32 [facility] [id number] [place] [address] 35902- 2759 May, Bipolar 1 disorder, depressed, moderate F31.32 [facility] [id number] [place] [address] 45280- 4848 May, [place] [id number] [place] [address] 99141- 4007 May, [facility] [id number] [place] [address] 47397- 3806 May, Bipolar 1 disorder, depressed, moderate F31.32 [place] [address] 75902- 8914 May, Bipolar 1 disorder, depressed, moderate F31.32 [place] [address] [id number]- 0816 May, Other specified abnormal findings of blood chemistry R79.89 [place]47919- 9400 08 May, 2017 Essential hypertension I10 ; Acquired hypothyroidism E03.9 ; Gastroesophageal reflux disease with esophagitis K21.0 ; Hair loss L65.9 ; Hypokalemia, gastrointestinal losses E87.6 ; Pre-diabetes R73.03 ; Candidal dermatitis B37.2 and Pure hypercholesterolemia E78.00 [place] [address] 93150- 5121 Apr, Bipolar 1 disorder, depressed, moderate F31.32 [place] [address] [id number]- 5990 Apr, Bipolar 1 disorder, depressed, moderate F31.32 [place] [address] 27726- 1365 Apr, Bipolar 1 disorder, depressed, moderate F31.32 and Anxiety F41.9 [facility] [address] 27614 -6340 Mar, Encounter for immunization Z23 ; Fall, initial encounter W19.XXXA ; Rib pain on left side R07.81 and Left hip pain M25.552 [place] [address] 69389- 3476 Mar, Bipolar 1 disorder, depressed, moderate F31.32 and Anxiety F41.9 [place] [address] 13094- 9099 Mar, Bipolar 1 disorder, depressed, moderate F31.32 ; Anxiety F41.9 ; Borderline personality disorder F60.3 and Polysubstance (including opioids) dependence with physiol dependence F19.20 [facility] [id number] [place] [address] 25262- 1779 Mar, Bipolar 1 disorder, depressed, moderate F31.32 and Anxiety F41.9 [facility] [id number] [place] [address] 65786 -4717 Feb, Irritant contact dermatitis, unspecified trigger L24.9 [facility] [address] 27000- 3467 Feb, [facility] [address] 01789- 1583 Feb, [place] [address] 64235- 6830 Feb, Bipolar 1 disorder, depressed, moderate F31.32 and Anxiety F41.9 [facility] [address] 12019- 4487 Feb, Acute non-recurrent maxillary sinusitis J01.00 [facility] [id number] [place] [address] 41948- 1625 Feb, [facility] [id number] [place] [address] 93908- 0701 Feb, Bipolar 1 disorder, depressed, moderate F31.32 [facility] [id number] [place] [address] 87517- 5779 Jan, [facility] [id number] [place] [address] 22105- 8538 Jan, Bipolar 1 disorder, depressed, moderate F31.32 ; Anxiety F41.9 ; Borderline personality disorder F60.3 and Polysubstance (including opioids) dependence with physiol dependence F19.20 [facility] [id number] [place] [address] 47988- 6012 27 Jan, 2017 Bipolar 1 disorder, depressed, moderate F31.32 and Anxiety F41.9 [place] [id number] [place] [address] 72832- 9414 Jan, Bipolar 1 disorder, depressed, moderate F31.32 ; Anxiety F41.9 ; Borderline personality disorder F60.3 and Polysubstance (including opioids) dependence with physiol dependence F19.20 [place] [address] 09921- 4992 Jan, Bipolar 1 disorder, depressed, moderate F31.32 and Anxiety F41.9 [place] [address] 68794- 0464 Dec, Hypokalemia, gastrointestinal losses E87.6 ; GERD ( gastroesophageal reflux disease) K21.9 and Bipolar 1 disorder, depressed, moderate F31.[address] 01240- 8331 Dec, Bipolar 1 disorder, depressed, moderate F31.32 and Anxiety F41.9 [facility] [address] 50867 -0186 Dec, [address] 26490- 1126 Dec, [facility] [address] 64556 -6784 Dec, Fall (on) (from) other stairs and steps, initial encounter W10.8XXA ; Laceration of left lower extremity, initial encounter S81.812A ; Contusion of right knee, initial encounter S80.01XA and Contusion of right shoulder, initial encounter S40.011A [address] 16171- 6252 Dec, Bipolar 1 disorder, depressed, moderate F31.32 ; Anxiety F41.9 ; Borderline personality disorder F60.3 and Polysubstance (including opioids) dependence with physiol dependence F19.[address] 62187- 9005 Dec, Bipolar 1 disorder, depressed, moderate F31.32 and Anxiety F41.9 [place] [address] 26050- 2240 Dec, [place] [address] 11892- 0541 Dec, Hospital discharge follow-up Z09 ; Nephrolithiasis N20.0 ; Essential hypertension I10 ; Gastroesophageal reflux disease with esophagitis K21.0 and Anxiety F41.9 [place] [address] 86571- 3040 28 Nov, 2016 [facility] [place] [address] 37548 -1596 Nov, Dysuria R30.0 and Acute cystitis with hematuria N30.01 [facility] [place] [address] 94380 -3226 Nov, [place] [address] 71766- 7872 Nov, [place] [address] 30221- 0978 Nov, Gastroesophageal reflux disease with esophagitis K21.0 ; Hypercholesteremia E78.00 and Acquired hypothyroidism E03.9 [facility] [place] [address] 97700 -9413 Nov, Left wrist pain M25.532 and Contusion of left wrist, initial encounter S60.212A [place] [address] 43897- 6415 18 Nov, 2016 Bipolar 1 disorder, depressed, moderate F31.32 ; Anxiety F41.9 ; Borderline personality disorder F60.3 and Polysubstance (including opioids) dependence with physiol dependence F19.20 [facility] [place] [address] 22505 -3153 15 Nov, 2016 Abdominal pain R10.9 and GERD (gastroesophageal reflux disease) K21.9 [place] [id number] [place] [address] 81172- 6072 12 Nov, 2016 Hypokalemia, gastrointestinal losses E87.6 [place] [address] 560932- 5871 11 Nov, 2016 Dehydration E86.0 ; Hypokalemia, gastrointestinal losses E87.6 and Vaginal candidiasis B37.[address] 147773- 9680 08 Nov, 2016 Abnormal weight loss R63.4 ; Diarrhea, unspecified R19.7 ; Vomiting, unspecified R11.10 ; Generalized abdominal pain R10.84 and Decreased breath sounds R06.89 [place] [address] 99900- 5778 Oct, Bipolar 1 disorder, depressed, moderate F31.32 and Anxiety F41.[address] 84929- 3974 Sep, Bipolar 1 disorder, depressed, moderate F31.32 ; Anxiety F41.9 ; Borderline personality disorder F60.3 and Polysubstance (including opioids) dependence with physiol dependence F19.20 [place] [address] 59243- 8198 Sep, Bipolar 1 disorder, depressed, moderate F31.32 and Anxiety F41.9 [place] [id number] [place] [address] 26998- 9441 Sep, Bipolar 1 disorder, depressed, moderate F31.32 [place] [address] 52057- 7148 Sep, Bipolar 1 disorder, depressed, moderate F31.32 and Anxiety F41.9 [facility] [id number] [place] [address] 84548 -2250 Sep, Pain of toe of right foot M79.674 [place] [address] 48193- 3298 Sep, [facility] [id number] [place] [address] 74765 -2517 15 Sep, 2016 Cellulitis of right ankle L03.115 [facility] [id number] [place] [address] 24231- 9472 Sep, Bipolar 1 disorder, depressed, moderate F31.32 and Anxiety F41.9 [place] [id number] [place] [address] 42040- 6653 Sep, [place] [id number] [place] [address] 32164- 7241 Sep, [facility] [id number] [place] [address] 18369- 2485 Sep, Bipolar 1 disorder, depressed, moderate F31.32 and Anxiety F41.9 [place] [id number] [place] [address] 05083- 2066 Sep, Accidental spider bite T63.301A [place] [address] 02292- 2390 Aug, Bipolar 1 disorder, depressed, moderate F31.32 ; Anxiety F41.9 ; Borderline personality disorder F60.3 and Polysubstance (including opioids) dependence with physiol dependence F19.20 [place] [id number] [place] [address] 43701- 0149 Aug, [place] [id number] [place] [address] 15620- 3487 Aug, Bipolar 1 disorder, depressed, moderate F31.32 and Anxiety F41.[address] 68926- 7039 Aug, Pre-diabetes R73.03 ; Acute seasonal allergic rhinitis due to pollen J30.1 ; Hypercholesteremia E78.00 and Nausea R11.0 [place] [address] 36614- 2673 Aug, [facility] [address] [place] [address] 16357- 3215 Aug, Bipolar 1 disorder, depressed, moderate F31.32 and Anxiety F41.9 [facility] [address] [place] [address] 84569- 8083 Aug, [place] [id number] [place] [address] 10472- 5127 Aug, [place] [id number] [place] [address] 25563- 5495 Aug, [place] [id number] [place] [address] 23828- 9930 Aug, Bipolar 1 disorder, depressed, moderate F31.32 and Anxiety F41.9 [place] [id number] [place] [address] 70776- 4237 Aug, [facility] [address] [place] [address] 11968 -8514 Aug, Insect bite, initial encounter W57.XXXA and Cellulitis of left lower leg L03.116 [place] [id number] [place] [address] 89731- 3907 Aug, Bipolar 1 disorder, depressed, moderate F31.32 and Borderline personality disorder F60.3 [place] [id number] [place] [address] 15756- 0250 July, [place] [address] [place] [address] 43053- 0908 July, [place] [id number] [place] [address] 69388- 0830 July, Encounter for routine adult health examination with abnormal findings Z00.01 ; History of esophageal cancer Z85.01 ; Bipolar 1 disorder, depressed, moderate F31.32 ; Anxiety F41.9 ; Acquired hypothyroidism E03.9 ; Essential hypertension I10 ; Gastroesophageal reflux disease with esophagitis K21.0 and Encounter for immunization Z23 [place] [address] [place] [address] 08468- 7417 July, Bipolar 1 disorder, depressed, moderate F31.32 and Anxiety F41.9 [place] [id number] [place] [address] 15566- 4759 July, [place] [id number] [place] [address] 951248- 1542 July, Bipolar 1 disorder, depressed, moderate F31.32 and Anxiety F41.9 [place] [id number] [place] [address] 01078- 2696 July, Bipolar 1 disorder, depressed, moderate F31.32 [place] [id number] [place] [address] 95193- 6648 July, Bipolar 1 disorder, depressed, moderate F31.32 and Anxiety F41.9 [place] [id number] [place] [address] 06473- 8077 Jun, Bipolar 1 disorder, depressed, moderate F31.32 [place] [id number] [place] [address] 30783- 1437 Jun, Bipolar 1 disorder, depressed, moderate F31.32 and Borderline personality disorder F60.3 [place] [id number] [place] [address] 55025- 6331 Jun, Bipolar 1 disorder, depressed, moderate F31.32 [place] [id number] [place] [address] 16346- 8504 Jun, Bipolar 1 disorder, depressed, moderate F31.32 [place] [id number] [place] [address] 67717- 6806 May, Bipolar 1 disorder, depressed, moderate F31.32 and Anxiety F41.9 [place] [id number] [place] [address] 99467- 9047 May, Bipolar 1 disorder, depressed, moderate F31.32 and Anxiety F41.9 [facility] [id number] [place] [address] 27459- 8769 May, Bipolar 1 disorder, depressed, moderate F31.32 and Anxiety F41.9 [facility] [id number] [place] [address] 41115- 1683 May, Bipolar 1 disorder, depressed, moderate F31.32 and Borderline personality disorder F60.3 [facility] [id number] [place] [address] 96299- 1059 May, [facility] [id number] [place] [address] 25352- 3616 May, Bipolar 1 disorder, depressed, moderate F31.32 and Anxiety F41.9 [place] [id number] [place] [address] 42383- 6208 May, Bipolar 1 disorder, depressed, moderate F31.32 and Anxiety F41.9 [place] [id number] [place] [address] 41099- 0268 May, [place] [address] 469213- 7469 May, Bipolar 1 disorder, depressed, moderate F31.32 [place] [id number] [place] [address] 81265- 8601 May, Bipolar 1 disorder, depressed, moderate F31.32 and Generalized anxiety disorder F41.1 [facility] [id number] [place] [address] 22170- 0954 Apr, Bipolar 1 disorder, depressed, moderate F31.32 and Anxiety F41.9 [facility] [id number] [place] [address] 68522- 0956 Apr, [facility] [id number] [place] [address] 22679- 7928 13 Apr, 2016 Bipolar 1 disorder, depressed, moderate F31.32 and Anxiety F41.9 [place] [id number] [place] [address] 04578- 3617 09 Apr, 2016 Bipolar 1 disorder, depressed, moderate F31.32 and Anxiety F41.9 [place] [address] [place] [address] 73431- 5226 07 Apr, 2016 Bipolar affective disorder, depressed, severe F31.4 and Generalized anxiety disorder F41.1 [place] [address] [place] [id number] [place] [address] 87605- 1881 Mar, Bipolar 1 disorder, depressed, moderate F31.32 and Anxiety F41.9 [place] [address] [place] [address] [id number] [place] [address] 54464- 8478 Mar, Bipolar 1 disorder, depressed, moderate F31.32 and Anxiety F41.9 [place] [address] [place] [address] [id number] [place] [address] 97463- 8983 Mar, Bipolar 1 disorder, mixed, moderate F31.62 [place] [address] [place] [address] 67469- 1540 Mar, [place] [address] [place] [address] [id number] [place] [address] 72959- 6402 Mar, Bipolar 1 disorder, mixed, moderate F31.62 ; Generalized anxiety disorder F41.1 and 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 Z79.899 [place] [address] [place] [address] 47282- 0432 Feb, Bipolar 1 disorder, depressed, moderate F31.32 and Anxiety F41.9 [place] [address] [place] [address] 32380- 8277 Feb, Bipolar 1 disorder, depressed, moderate F31.32 and 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 Z79.899 [facility] [address] [place] [address] 63985- 4980 Feb, [place] [address] [place] [id number] [place] [address] 39176- 3097 Feb, Bipolar 1 disorder, depressed, moderate F31.32 and Anxiety F41.9 [facility] [address] [place] [address]- 9391 Feb, Bipolar 1 disorder, depressed, moderate F31.32 and 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 Z79.899 [facility] [address] [place] [id number] [place] [address] 25629- 6365 Feb, Bipolar 1 disorder, depressed, moderate F31.32 and Anxiety F41.9 [place] [address] [place] [id number] [place] [address]- 3395 Dec, Bipolar 1 disorder, depressed, moderate F31.32 and Anxiety F41.9 [place] [address] [place] [id number] [place] [address] 70289- 5737 Oct, [place] [address] [place] [id number] [place] [address]- 8782 Oct, [facility] [address] [place] [id number] [place] [address] 05043- 7670 May, [place] [address] [place] [id number] [place] [id number]- 5210 May, [facility] [address] [place] [id number] [place] [address] 36251- 6740 Mar, [place] [address] [place] [id number] [place]- 3885 Mar, IMMUNIZATIONS No Known Immunizations SOCIAL HISTORY [...] Hospitalization History [facility]iatric Admission 2016
--- OUTSIDE RECORDS SUMMARY | 2017-11-25 12:31 | XMS REPORT ---
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 Name Role Phone GURINDER NORTON Unavailable PROBLEMS Type Condition ICD9-CM Code WIP28-FX Code Onset Dates Condition Status SNOMED Code Problem Gastroesophageal reflux disease with esophagitis K21.0 Active 361918305 Problem Polysubstance (including opioids) dependence with physiol dependence F19.20 Active 04010526 Problem History of esophageal cancer Z85.01 Active 836854489 Problem Seasonal allergies J30.2 Active 925249336 Problem Pre-diabetes R73.03 Active 899383278 Problem GERD (gastroesophageal reflux disease) K21.9 Active 285412093 Problem Borderline personality disorder F60.3 Active 16972489 Problem Pure hypercholesterolemia E78.00 Active 261173825 Problem Nephrolithiasis N20.0 Active 89151186 Problem STATE HEP A (ADULT) DX V05.3 Active 804947605 Problem Bipolar 1 disorder, depressed, moderate F31.32 Active 51428584 Problem Anxiety F41.9 Active 80284335 Problem Vitamin D insufficiency E55.9 Active 989057014 Problem Essential hypertension I10 Active 30084967 Problem Elevated serum creatinine R79.89 Active 947332706 Problem Acquired hypothyroidism E03.9 Active 274968371 ALLERGIES No Information ENCOUNTERS Encounter Location Date Diagnosis [facility] [address] [address] Nov, [facility] [address] [place] [address] 39200- 5946 Oct, Bipolar 1 disorder, depressed, moderate F31.32 ; Anxiety F41.9 ; Borderline personality disorder F60.3 ; Polysubstance (including opioids ) dependence with physiol dependence F19.20 and 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.899 [facility] [address] [place] [id number] [place] [address] 32607- 5891 Oct, Bipolar 1 disorder, depressed, moderate F31.32 [facility] [address] [id number] Sep, Encounter for dental examination Z01.20 [facility] [address] 8[address]41- 8058 Sep, Acute oral pain K13.79 [facility] [address] 47548- 3667 Sep, Bipolar 1 disorder, depressed, moderate F31.32 [place] [address] 511748- 1150 Sep, Bipolar 1 disorder, depressed, moderate F31.32 [place] [address] [place] [id number] [place] [address] 44513- 9371 Sep, Bipolar 1 disorder, depressed, moderate F31.32 [place] [address] 07911- 6332 Sep, Essential hypertension I10 ; Acquired hypothyroidism E03.9 ; Anxiety F41.9 ; Chronic nausea R11.0 and Irritant contact dermatitis due to plants, except food L24.7 [place] [address] [place] [id number] [place] [address] 86682- 2571 Aug, Bipolar 1 disorder, depressed, moderate F31.32 [place] [address] [place] [id number] [place] [address] 44079- 2047 Aug, Bipolar 1 disorder, depressed, moderate F31.32 [place] [address] [place] [id number] [place] [address] 48179- 9139 Aug, Bipolar 1 disorder, depressed, moderate F31.32 [facility] [address] [place] [id number] [place] [address] 69288- 0026 July, Candidal dermatitis B37.2 [place] [address] 41932- 0778 July, Acquired hypothyroidism E03.9 [facility] [id number] [place] [address] 88753- 5609 July, Bipolar 1 disorder, depressed, moderate F31.32 [facility] [address] [id number] [place] [address] 31178 -2901 July, Seasonal allergies J30.2 [facility] [address] 05782- 8137 July, Bipolar 1 disorder, depressed, moderate F31.32 [place] [address] [place] [id number] [place] [address] 62091- 7595 Jun, Pre-diabetes R73.03 [place] [address] [place] [id number] [place] [address] 27324- 1328 Jun, Bipolar 1 disorder, depressed, moderate F31.32 ; Anxiety F41.9 ; Borderline personality disorder F60.3 ; Polysubstance (including opioids ) dependence with physiol dependence F19.20 and Other specified abnormal findings of blood chemistry R79.89 [place] [address] [place] [id number] [place] [address] 30950- 7896 Jun, Bipolar 1 disorder, depressed, moderate F31.32 [place] [address] [place] [id number] [place] [address] 07774- 2783 May, Bipolar 1 disorder, depressed, moderate F31.32 [facility] [address] [place] [id number] [place] [address] 61235- 6698 May, Bipolar 1 disorder, depressed, moderate F31.32 [place] [address] [place] [id number] [place] [address] 89206- 9868 May, [place] [address] [place] [id number] [place] [address] 70971- 0384 May, [place] [address] [place] [id number] [place] [address] 71536- 1271 May, Bipolar 1 disorder, depressed, moderate F31.32 [place] [address] [place] [id number] [place] [address] 75077- 5655 May, Bipolar 1 disorder, depressed, moderate F31.32 [place] [address] [place] [address] 8737 May, Other specified abnormal findings of blood chemistry R79.[address] 3071 May, Essential hypertension I10 ; Acquired hypothyroidism E03.9 ; Gastroesophageal reflux disease with esophagitis K21.0 ; Hair loss L65.9 ; Hypokalemia, gastrointestinal losses E87.6 ; Pre-diabetes R73.03 ; Candidal dermatitis B37.2 and Pure hypercholesterolemia E78.[address] 90775- 653 Apr, Bipolar 1 disorder, depressed, moderate F31.32 [place] [address] 8632 Apr, Bipolar 1 disorder, depressed, moderate F31.[address] [address] 0279 Apr, Bipolar 1 disorder, depressed, moderate F31.32 and Anxiety F41.9 [facility] [address] 52101 -[address] Mar, Encounter for immunization Z23 ; Fall, initial encounter W19.XXXA ; Rib pain on left side R07.81 and Left hip pain M25.[address] 57662- 9297 Mar, Bipolar 1 disorder, depressed, moderate F31.32 and Anxiety F41.9 [place] [address] 40873- 3329 Mar, Bipolar 1 disorder, depressed, moderate F31.32 ; Anxiety F41.9 ; Borderline personality disorder F60.3 and Polysubstance (including opioids) dependence with physiol dependence F19.20 [facility] [address] [id number] [place] [address] 81137- 2035 Mar, Bipolar 1 disorder, depressed, moderate F31.32 and Anxiety F41.9 [facility] [id number] [place] [address] 75020 -9631 28 Feb, 2017 Irritant contact dermatitis, unspecified trigger L24.9 [facility] [address] 75281- 8252 Feb, [facility] [address] 05497- 5408 Feb, [place] [address] 12528- 9345 Feb, Bipolar 1 disorder, depressed, moderate F31.32 and Anxiety F41.9 [facility] [address] 15594- 5607 Feb, Acute non-recurrent maxillary sinusitis J01.00 [facility] [address] [id number] [place] [address] 77023- 6123 Feb, [place] [address] 60099- 7304 Feb, Bipolar 1 disorder, depressed, moderate F31.32 [facility] [address] [place] [id number] [place] [address] 89725- 3771 Jan, [facility] [address] [address] [id number] [place] [address] 88294- 5960 Jan, Bipolar 1 disorder, depressed, moderate F31.32 ; Anxiety F41.9 ; Borderline personality disorder F60.3 and Polysubstance (including opioids) dependence with physiol dependence F19.20 [facility] [address] [address] [id number] [place] [address] 76958- 4370 27 Jan, 2017 Bipolar 1 disorder, depressed, moderate F31.32 and Anxiety F41.9 [facility] [address] [place] [id number] [place] [address] 63327- 8296 Jan, Bipolar 1 disorder, depressed, moderate F31.32 ; Anxiety F41.9 ; Borderline personality disorder F60.3 and Polysubstance (including opioids) dependence with physiol dependence F19.20 [place] [address] [place] [id number] [place] [address] 47396- 5085 Jan, Bipolar 1 disorder, depressed, moderate F31.32 and Anxiety F41.9 [place] [address] [place] [id number] [place] [address] 63084- 6308 Dec, Hypokalemia, gastrointestinal losses E87.6 ; GERD ( gastroesophageal reflux disease) K21.9 and Bipolar 1 disorder, depressed, moderate F31.[address] 29688- 3374 Dec, Bipolar 1 disorder, depressed, moderate F31.32 and Anxiety F41.9 [facility] IN [place] [id number] [place] [address] 39612 -1677 Dec, [address] 37545- 5230 Dec, [facility] W[facility] IN [address] 56609 -0392 Dec, Fall (on) (from) other stairs and steps, initial encounter W10.8XXA ; Laceration of left lower extremity, initial encounter S81.812A ; Contusion of right knee, initial encounter S80.01XA and Contusion of right shoulder, initial encounter S40.011A [place] [id number] [place] [address] 61490- 6486 Dec, Bipolar 1 disorder, depressed, moderate F31.32 ; Anxiety F41.9 ; Borderline personality disorder F60.3 and Polysubstance (including opioids) dependence with physiol dependence F19.20 [place] [id number] [place] [address] 62714- 6801 09 Dec, 2016 Bipolar 1 disorder, depressed, moderate F31.32 and Anxiety F41.9 [place] [address] [place] [id number] [place] [address] 15878- 133 Dec, [place] [address] [place] [address] 140 Dec, Hospital discharge follow-up Z09 ; Nephrolithiasis N20.0 ; Essential hypertension I10 ; Gastroesophageal reflux disease with esophagitis K21.0 and Anxiety F41.9 [place] [address] 19627- 4848 28 Nov, 2016 [facility] WALK IN [place] [address] 36001 7128 24 Nov, 2016 Dysuria R30.0 and Acute cystitis with hematuria N30.01 [facility] IN [place] [address] 47140 -7256 Nov, [place] [address] 06202- 3347 Nov, [place] [address] 23080- 5706 19 Nov, 2016 Gastroesophageal reflux disease with esophagitis K21.0 ; Hypercholesteremia E78.00 and Acquired hypothyroidism E03.9 [facility] IN [place] [address] 16678 -8971 18 Nov, 2016 Left wrist pain M25.532 and Contusion of left wrist, initial encounter S60.212A [place] [address] [place] [id number] [place] [address] 79467- 5469 18 Nov, 2016 Bipolar 1 disorder, depressed, moderate F31.32 ; Anxiety F41.9 ; Borderline personality disorder F60.3 and Polysubstance (including opioids) dependence with physiol dependence F19.20 [facility] [address] 17341 -2364 15 Nov, 2016 Abdominal pain R10.9 and GERD (gastroesophageal reflux disease) K21.9 [place] [address] [place] [id number] [place] [address] 34826- 1272 12 Nov, 2016 Hypokalemia, gastrointestinal losses E87.6 [place] [address] 22054- 5100 11 Nov, 2016 Dehydration E86.0 ; Hypokalemia, gastrointestinal losses E87.6 and Vaginal candidiasis B37.[address] 56675- 0604 08 Nov, 2016 Abnormal weight loss R63.4 ; Diarrhea, unspecified R19.7 ; Vomiting, unspecified R11.10 ; Generalized abdominal pain R10.84 and Decreased breath sounds R06.89 [place] 556829- 626 Oct, Bipolar 1 disorder, depressed, moderate F31.32 and Anxiety F41.[address] 37766- 3337 Sep, Bipolar 1 disorder, depressed, moderate F31.32 ; Anxiety F41.9 ; Borderline personality disorder F60.3 and Polysubstance (including opioids) dependence with physiol dependence F19.20 [place] [address] 27694- 8207 Sep, Bipolar 1 disorder, depressed, moderate F31.32 and Anxiety F41.9 [place] [address] 78768- 6624 Sep, Bipolar 1 disorder, depressed, moderate F31.[address] 26041- 2340 Sep, Bipolar 1 disorder, depressed, moderate F31.32 and Anxiety F41.9 [facility] [address] 79348 -6927 Sep, Pain of toe of right foot M79.674 [place] [address] 03120- 1240 Sep, [facility] [address] [address] [id number] [place] [address] 48240 -9754 Sep, Cellulitis of right ankle L03.115 [facility] [address] [place] [address] [id number] [place] [address] 94301- 9516 Sep, Bipolar 1 disorder, depressed, moderate F31.32 and Anxiety F41.9 [facility] [address] 56454- 3163 Sep, [place] [address] 80741- 3104 Sep, [facility] [address] 24257- 9170 Sep, Bipolar 1 disorder, depressed, moderate F31.32 and Anxiety F41.9 [place] [address] [place] [id number] [place] [address] 78348- 2180 Sep, Accidental spider bite T63.301A [place] [address] 42139- 5608 Aug, Bipolar 1 disorder, depressed, moderate F31.32 ; Anxiety F41.9 ; Borderline personality disorder F60.3 and Polysubstance (including opioids) dependence with physiol dependence F19.20 [place] [address] [place] [id number] [place] [address] 94913- 0422 Aug, [place] [address] 81804- 6369 Aug, Bipolar 1 disorder, depressed, moderate F31.32 and Anxiety F41.9 [place] [address] 98978- 5939 Aug, Pre-diabetes R73.03 ; Acute seasonal allergic rhinitis due to pollen J30.1 ; Hypercholesteremia E78.00 and Nausea R11.0 [place] [address] 30768- 8227 Aug, [facility] [address] [place] [address] 41072- 8655 Aug, Bipolar 1 disorder, depressed, moderate F31.32 and Anxiety F41.9 [facility] [address] [place] [id number] [place] [address] 38690- 0683 Aug, [place] [address] [place] [id number] [place] [address] 43918- 9858 Aug, [place] [address] [place] [id number] [place] [address] 56102- 0643 Aug, [place] [address] 11515- 1878 Aug, Bipolar 1 disorder, depressed, moderate F31.32 and Anxiety F41.9 [place] [address] [place] [id number] [place] [address] 47503- 7798 Aug, [facility] [address] [place] [id number] [place] [address] 98964 -3247 Aug, Insect bite, initial encounter W57.XXXA and Cellulitis of left lower leg L03.116 [place] [address] [place] [id number] [place] [address] 33646- 5047 Aug, Bipolar 1 disorder, depressed, moderate F31.32 and Borderline personality disorder F60.3 [place] [address] [place] [id number] [place] [address] 47868- 7418 July, [place] [address] [place] [id number] [place] [address] 41156- 3386 July, [place] [id number] [place] [address] 32677- 5048 July, Encounter for routine adult health examination with abnormal findings Z00.01 ; History of esophageal cancer Z85.01 ; Bipolar 1 disorder, depressed, moderate F31.32 ; Anxiety F41.9 ; Acquired hypothyroidism E03.9 ; Essential hypertension I10 ; Gastroesophageal reflux disease with esophagitis K21.0 and Encounter for immunization Z23 [place] [address] [place] [id number] [place] [address] 47027- 1375 July, Bipolar 1 disorder, depressed, moderate F31.32 and Anxiety F41.9 [place] [address] [place] [id number] [place] [address]- [address]40 July, [place] [address] [place] [address] [place]- [address]87 July, Bipolar 1 disorder, depressed, moderate F31.32 and Anxiety F41.9 [place] [address] [place] [id number] [place] [address] 950617- 9129 July, Bipolar 1 disorder, depressed, moderate F31.32 [place] [address] [place] [id number] [place] [address]- 4419 July, Bipolar 1 disorder, depressed, moderate F31.32 and Anxiety F41.9 [place] [address] [place] [id number] [place] [address] 94906- 7037 Jun, Bipolar 1 disorder, depressed, moderate F31.32 [place] [address] [place] [id number] [place] [address] 95106- 8585 Jun, Bipolar 1 disorder, depressed, moderate F31.32 and Borderline personality disorder F60.3 [place] [address] [place] [id number] [place] [address] 50966- 9114 Jun, Bipolar 1 disorder, depressed, moderate F31.32 [place] [address] [place] [id number] [place] [address] 30320- 5054 Jun, Bipolar 1 disorder, depressed, moderate F31.32 [place] [address] [place] [id number] [place] [address] 83211- 2036 May, Bipolar 1 disorder, depressed, moderate F31.32 and Anxiety F41.9 [place] [address] [place] [id number] [place] [address] 74350- 5319 May, Bipolar 1 disorder, depressed, moderate F31.32 and Anxiety F41.9 [facility] [address] [place] [address] 09695- 1628 May, Bipolar 1 disorder, depressed, moderate F31.32 and Anxiety F41.9 [facility] [address] [place] [id number] [place] [address] 66709- 4219 May, Bipolar 1 disorder, depressed, moderate F31.32 and Borderline personality disorder F60.3 [place] [address] [place] [id number] [place] [address] 94290- 5682 May, [place] [address] [place] [id number] [place] [address] 52586- 7777 May, Bipolar 1 disorder, depressed, moderate F31.32 and Anxiety F41.9 [place] [address] [place] [id number] [place] [address] 58546- 6790 May, Bipolar 1 disorder, depressed, moderate F31.32 and Anxiety F41.9 [place] [address] [place] [id number] [place] [address] 80696- 6128 May, [place] [address] [place] [id number] [place] [address] 05281- 2248 May, Bipolar 1 disorder, depressed, moderate F31.32 [place] [address] [place] [address] 69798- 7568 May, Bipolar 1 disorder, depressed, moderate F31.32 and Generalized anxiety disorder F41.1 [place] [address] [place] [address] 99741- 0585 Apr, Bipolar 1 disorder, depressed, moderate F31.32 and Anxiety F41.9 [place] [address] [place] [id number] [place] [address] 90344- 6240 27 Apr, 2016 [facility] [address] [place] [id number] [place] [address] 76349- 3256 13 Apr, 2016 Bipolar 1 disorder, depressed, moderate F31.32 and Anxiety F41.9 [place] [address] [place] [address] 74520- 9702 Apr, Bipolar 1 disorder, depressed, moderate F31.32 and Anxiety F41.9 [facility] [address] [place] [id number] [place] [address] 29484- 9624 Apr, Bipolar affective disorder, depressed, severe F31.4 and Generalized anxiety disorder F41.1 [place] [address] [place] [id number] [place] [address] 34319- 7631 Mar, Bipolar 1 disorder, depressed, moderate F31.32 and Anxiety F41.9 [place] [address] [place] [id number] [place] [address] 14747- 5863 Mar, Bipolar 1 disorder, depressed, moderate F31.32 and Anxiety F41.9 [place] [address] [place] [id number] [place] [address] 79078- 0801 Mar, Bipolar 1 disorder, mixed, moderate F31.62 [place] [address] [place] [id number] [place] [address] 25630- 9743 Mar, [place] [address] [place] [id number] [place] [address] 76324- 4156 Mar, Bipolar 1 disorder, mixed, moderate F31.62 ; Generalized anxiety disorder F41.1 and Other chcf (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 Z79.899 [place] [address] [place] [address] 50873- 4697 Feb, Bipolar 1 disorder, depressed, moderate F31.32 and Anxiety F41.9 [facility] [address] [place] [address] 59314- 8767 Feb, Bipolar 1 disorder, depressed, moderate F31.32 and 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.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 [facility] [address] [place] [address] 61031- 9596 Feb, [facility] [address] [place] [id number] [place] [address] 29565- 7856 Feb, Bipolar 1 disorder, depressed, moderate F31.32 and Anxiety F41.9 [facility] [address] [place] [address] 48919- 2498 Feb, Bipolar 1 disorder, depressed, moderate F31.32 and Other chcf (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 Z79.899 [facility] [address] [place] [id number] [place] [address] 81775- 7373 Feb, Bipolar 1 disorder, depressed, moderate F31.32 and Anxiety F41.9 [facility] [address] [place] [id number] [place] [address] 68725- 0607 Dec, Bipolar 1 disorder, depressed, moderate F31.32 and Anxiety F41.9 [facility] [address] [place] [id number] [place] [address] 79964- 2830 Oct, [facility] [address] [place] [id number] [place] [address] 38752- 7034 Oct, [facility] [address] [place] [id number] [place] [address] 45229- 9109 May, [facility] [address] [place] [id number] [place] [address] 94922- 7594 May, [facility] [address] [place] [id number] [place] [address] 48759- 2572 Mar, [facility] [address] [place] [id number] [place] [address] 07949- 9967 Mar, IMMUNIZATIONS No Known Immunizations SOCIAL HISTORY Never Assessed REASON FOR VISIT Follow-up Depression PLAN OF CARE Activity Details Follow Up 3 Weeks Reason: Follow-up VITAL SIGNS MEDICATIONS Unknown Medications RESULTS No Results PROCEDURES Procedure Date Ordered Result Body Site [facility] VISIT MENTAL HEALTH ESTAB PT August 09, 2017 Psychotherapy, patient &/family, 30 minutes, established patient August 09, 2017 INSTRUCTIONS MEDICATIONS ADMINISTERED No Known Medications [...] and Neck 2004 Hospitalization History [facility] Admission 2015
--- OUTSIDE RECORDS SUMMARY | 2017-11-25 12:32 | XMS REPORT ---
Author Author ADELEANDRESDICK Organization [facility] Address [address] [place] [address] Care Team Providers Care Ortho/Prosthetic Aide Name Role Phone DICK ANGULO Unavailable PROBLEMS Type Condition ICD9-CM Code ZRZ69-WW Code Onset Dates Condition Status SNOMED Code Problem Gastroesophageal reflux disease with esophagitis K21.0 Active 448909750 Problem Polysubstance (including opioids) dependence with physiol dependence F19.20 Active 95344750 Problem History of esophageal cancer Z85.01 Active 637481215 Problem Seasonal allergies J30.2 Active 347253246 Problem Pre-diabetes R73.03 Active 553803000 Problem GERD (gastroesophageal reflux disease) K21.9 Active 722356638 Problem Borderline personality disorder F60.3 Active 80451299 Problem Pure hypercholesterolemia E78.00 Active 999309053 Problem Nephrolithiasis N20.0 Active 41941193 Problem STATE HEP A (ADULT) DX V05.3 Active 559766679 Problem Bipolar 1 disorder, depressed, moderate F31.32 Active 12410445 Problem Anxiety F41.9 Active 86055938 Problem Vitamin D insufficiency E55.9 Active 907416674 Problem Essential hypertension I10 Active 42537670 Problem Elevated serum creatinine R79.89 Active 749065180 Problem Acquired hypothyroidism E03.9 Active 975545055 ALLERGIES No Information ENCOUNTERS Encounter Location Date Diagnosis [facility] [id number], [place] [address] Nov, [facility] [address], [place] [address] Oct, [facility] [address], [place] [address] Oct, [facility] [id number] [address] Oct, Bipolar 1 disorder, depressed, moderate F31.32 [facility] [id number] [place] [id number] Sep, Encounter for dental examination Z01.20 [facility] [id number] [place] [address] 22831- 4539 Sep, Acute oral pain K13.79 [facility] [id number] [place] [address] 10646- 5761 Sep, Bipolar 1 disorder, depressed, moderate F31.32 [facility] [id number] [place] [address] 82166- 6744 Sep, Bipolar 1 disorder, depressed, moderate F31.32 [facility] [id number] [place] [address] 50298- 6482 Sep, Bipolar 1 disorder, depressed, moderate F31.32 [place] [address] [address]80- 9475 Sep, Essential hypertension I10 ; Acquired hypothyroidism E03.9 ; Anxiety F41.9 ; Chronic nausea R11.0 and Irritant contact dermatitis due to plants, except food L24.7 [facility] [address] [place] [address] 36295- 4497 Aug, Bipolar 1 disorder, depressed, moderate F31.32 [place] [id number] [place] [address] 97357- 2362 Aug, Bipolar 1 disorder, depressed, moderate F31.32 [facility] [id number] [place] [address] 58473- 2269 Aug, Bipolar 1 disorder, depressed, moderate F31.32 [facility] [id number] [place] [address] 96943- 4469 July, Candidal dermatitis B37.2 [facility] [id number] [place] [address] 79008- 4944 July, Acquired hypothyroidism E03.9 [place] [id number] [place] [address] 59214- 4906 July, Bipolar 1 disorder, depressed, moderate F31.32 [facility] [address] 39[address] -[address]64 July, Seasonal allergies J30.2 [facility] [address] 54823- 3353 July, Bipolar 1 disorder, depressed, moderate F31.32 [facility] [address] 04653- 8415 Jun, Pre-diabetes R73.03 [place] [address] 09738- 3310 Jun, Bipolar 1 disorder, depressed, moderate F31.32 ; Anxiety F41.9 ; Borderline personality disorder F60.3 ; Polysubstance (including opioids ) dependence with physiol dependence F19.20 and Other specified abnormal findings of blood chemistry R79.89 [facility] [address] 05162- 3579 Jun, Bipolar 1 disorder, depressed, moderate F31.32 [place] [address] 37066- 9012 May, Bipolar 1 disorder, depressed, moderate F31.32 [place] [id number] [place] [address] 76646- 8719 May, Bipolar 1 disorder, depressed, moderate F31.32 [facility] [id number] [place] [address] 09577- 3168 May, [place] [address] 99158- 5899 May, [place] [address] 13615- 1822 13 May, 2017 Bipolar 1 disorder, depressed, moderate F31.32 [place] [address] [id number]- 8616 May, Bipolar 1 disorder, depressed, moderate F31.32 [place] [id number] [place] [address] 96129- 1862 12 May, 2017 Other specified abnormal findings of blood chemistry R79.89 [place] [id number] [place] [address] 29789- 3620 08 May, 2017 Essential hypertension I10 ; Acquired hypothyroidism E03.9 ; Gastroesophageal reflux disease with esophagitis K21.0 ; Hair loss L65.9 ; Hypokalemia, gastrointestinal losses E87.6 ; Pre-diabetes R73.03 ; Candidal dermatitis B37.2 and Pure hypercholesterolemia E78.00 [place] [id number] [place] [address] Apr, Bipolar 1 disorder, depressed, moderate F31.[address] 26550- 2299 Apr, Bipolar 1 disorder, depressed, moderate F31.32 [place] [id number] [place] [address] 93487- 2286 Apr, Bipolar 1 disorder, depressed, moderate F31.32 and Anxiety F41.9 [facility] [address] [place] [id number] [place] [address] 17543 -8883 Mar, Encounter for immunization Z23 ; Fall, initial encounter W19.XXXA ; Rib pain on left side R07.81 and Left hip pain M25.552 [place] [id number] [place] [address] 01813- 9795 Mar, Bipolar 1 disorder, depressed, moderate F31.32 and Anxiety F41.9 [place] [id number] [place] [address] 98326- 6228 Mar, Bipolar 1 disorder, depressed, moderate F31.32 ; Anxiety F41.9 ; Borderline personality disorder F60.3 and Polysubstance (including opioids) dependence with physiol dependence F19.20 [place] [id number] [place] [address] 37946- 2978 Mar, Bipolar 1 disorder, depressed, moderate F31.32 and Anxiety F41.9 [facility] [id number] [place] [address] 54667 -2717 Feb, Irritant contact dermatitis, unspecified trigger L24.9 [facility] [address] 43311- 6395 Feb, [place] [address] 28007- 0497 Feb, [place] [address] 60768- 5308 Feb, Bipolar 1 disorder, depressed, moderate F31.32 and Anxiety F41.9 [place] [address] 78035- 6408 Feb, Acute non-recurrent maxillary sinusitis J01.00 [place] [id number] [place] [address] 67664- 2230 Feb, [place] [address] 65796- 7710 Feb, Bipolar 1 disorder, depressed, moderate F31.32 [place] [id number] [place] [address] 85595- 5681 Jan, [place] [id number] [place] [address] 56616- 6702 Jan, Bipolar 1 disorder, depressed, moderate F31.32 ; Anxiety F41.9 ; Borderline personality disorder F60.3 and Polysubstance (including opioids) dependence with physiol dependence F19.20 [place] [address] 07800- 5893 Jan, Bipolar 1 disorder, depressed, moderate F31.32 and Anxiety F41.9 [place] [address] 60046- 4660 Jan, Bipolar 1 disorder, depressed, moderate F31.32 ; Anxiety F41.9 ; Borderline personality disorder F60.3 and Polysubstance (including opioids) dependence with physiol dependence F19.20 [place] [id number] [place] [address] 04635- 0011 Jan, Bipolar 1 disorder, depressed, moderate F31.32 and Anxiety F41.[address] 45609- 4507 Dec, Hypokalemia, gastrointestinal losses E87.6 ; GERD ( gastroesophageal reflux disease) K21.9 and Bipolar 1 disorder, depressed, moderate F31.[address] 23416- 6599 Dec, Bipolar 1 disorder, depressed, moderate F31.32 and Anxiety F41.9 [facility] IN [address] [address] -[address]77 Dec, [address] 14422- 0287 Dec, [facility] [address] [address] -3084 Dec, Fall (on) (from) other stairs and steps, initial encounter W10.8XXA ; Laceration of left lower extremity, initial encounter S81.812A ; Contusion of right knee, initial encounter S80.01XA and Contusion of right shoulder, initial encounter S40.011A [place] [id number] [place] [address] 83736- 6934 Dec, Bipolar 1 disorder, depressed, moderate F31.32 ; Anxiety F41.9 ; Borderline personality disorder F60.3 and Polysubstance (including opioids) dependence with physiol dependence F19.20 [place] [id number] [place] [address] 46076- 4199 09 Dec, 2016 Bipolar 1 disorder, depressed, moderate F31.32 and Anxiety F41.[id number] [place] [address] Dec, [place] [address] [id number]- 8318 Dec, Hospital discharge follow-up Z09 ; Nephrolithiasis N20.0 ; Essential hypertension I10 ; Gastroesophageal reflux disease with esophagitis K21.0 and Anxiety F41.9 [place] [address] 35673- 9756 Nov, [facility] IN [place] [address] [address] 5401 Nov, Dysuria R30.0 and Acute cystitis with hematuria N30.01 [facility] IN [place] [address] 35[address]1976 Nov, [place] [address] 53346- 4944 Nov, [place] [address] 25540- 8918 Nov, Gastroesophageal reflux disease with esophagitis K21.0 ; Hypercholesteremia E78.00 and Acquired hypothyroidism E03.9 [facility] IN [address] 18120 -5795 Nov, Left wrist pain M25.532 and Contusion of left wrist, initial encounter S60.212A [place] [address] 31498- 5382 18 Nov, 2016 Bipolar 1 disorder, depressed, moderate F31.32 ; Anxiety F41.9 ; Borderline personality disorder F60.3 and Polysubstance (including opioids) dependence with physiol dependence F19.20 [facility] IN [place] [address] 80564 -4863 15 Nov, 2016 Abdominal pain R10.9 and GERD (gastroesophageal reflux disease) K21.9 [place] [address] 95573- 6541 Nov, Hypokalemia, gastrointestinal losses E87.6 [place] [id number] [place] [address] 30597- 7303 Nov, Dehydration E86.0 ; Hypokalemia, gastrointestinal losses E87.6 and Vaginal candidiasis B37.3 [place] [id number] [place] [address] 84286- 1341 Nov, Abnormal weight loss R63.4 ; Diarrhea, unspecified R19.7 ; Vomiting, unspecified R11.10 ; Generalized abdominal pain R10.84 and Decreased breath sounds R06.89 [place] [address] 216276- 4728 Oct, Bipolar 1 disorder, depressed, moderate F31.32 and Anxiety F41.9 [place] [address] 32099- 6743 Sep, Bipolar 1 disorder, depressed, moderate F31.32 ; Anxiety F41.9 ; Borderline personality disorder F60.3 and Polysubstance (including opioids) dependence with physiol dependence F19.20 [place] [address] 17743- 4860 Sep, Bipolar 1 disorder, depressed, moderate F31.32 and Anxiety F41.9 [place] [id number] [place] [address] 16850- 0443 Sep, Bipolar 1 disorder, depressed, moderate F31.32 [place] [id number] [place] [address] 84337- 9888 Sep, Bipolar 1 disorder, depressed, moderate F31.32 and Anxiety F41.9 [facility] [address] [place] [address] 21029 -2783 Sep, Pain of toe of right foot M79.674 [place] [id number] [place] [address] 01547- 5255 Sep, [facility] CARE [facility] [place] [id number] [place] [address] 19132 -7332 Sep, Cellulitis of right ankle L03.115 [place] [address] 31945- 3692 Sep, Bipolar 1 disorder, depressed, moderate F31.32 and Anxiety F41.9 [facility] [address] 97342- 4735 Sep, [place] [address] 98351- 6707 Sep, [place] [address] 60340- 6134 Sep, Bipolar 1 disorder, depressed, moderate F31.32 and Anxiety F41.9 [place] [address] 48366- 1946 Sep, Accidental spider bite T63.301A [place] [address] 16205- 9419 Aug, Bipolar 1 disorder, depressed, moderate F31.32 ; Anxiety F41.9 ; Borderline personality disorder F60.3 and Polysubstance (including opioids) dependence with physiol dependence F19.20 [place] [address] 38272- 0252 Aug, [place] [address] 22215- 6416 Aug, Bipolar 1 disorder, depressed, moderate F31.32 and Anxiety F41.9 [place] [address] 56327- 3654 Aug, Pre-diabetes R73.03 ; Acute seasonal allergic rhinitis due to pollen J30.1 ; Hypercholesteremia E78.00 and Nausea R11.0 [place] [address] 54763- 6283 Aug, [place] [address] [place] [address]- 3670 13 Aug, 2016 Bipolar 1 disorder, depressed, moderate F31.32 and Anxiety F41.9 [place] [address] 22370- 3737 08 Aug, 2016 [place] [id number] [place] [address] 61871- 7275 Aug, [place] [address] 41331- 5924 Aug, [place] [id number] [place] [address] 66285- 8460 Aug, Bipolar 1 disorder, depressed, moderate F31.32 and Anxiety F41.9 [place] [id number] [place] [address] 71825- 8115 Aug, [facility] IN [facility] [address] 30841 -9215 Aug, Insect bite, initial encounter W57.XXXA and Cellulitis of left lower leg L03.116 [place] [id number] [place] [address] 77935- 2147 Aug, Bipolar 1 disorder, depressed, moderate F31.32 and Borderline personality disorder F60.3 [place] [id number] [place] [address] 18574- 3633 July, [place] [id number] [place] [address] 98426- 6622 July, [place] [id number] [place] [address] 86157- 2136 July, Encounter for routine adult health examination with abnormal findings Z00.01 ; History of esophageal cancer Z85.01 ; Bipolar 1 disorder, depressed, moderate F31.32 ; Anxiety F41.9 ; Acquired hypothyroidism E03.9 ; Essential hypertension I10 ; Gastroesophageal reflux disease with esophagitis K21.0 and Encounter for immunization Z23 [place] [address] [place] [address] 61126- 5372 July, Bipolar 1 disorder, depressed, moderate F31.32 and Anxiety F41.9 [place] [address] [place] [address]370 July, [facility] [address] [place] [address] 3329 July, Bipolar 1 disorder, depressed, moderate F31.32 and Anxiety F41.9 [place] [address] [place] [address] 10111- 2575 July, Bipolar 1 disorder, depressed, moderate F31.32 [place] [address] [place] [address]909 July, Bipolar 1 disorder, depressed, moderate F31.32 and Anxiety F41.9 [place] [address] [place] [address] 64704- 4354 Jun, Bipolar 1 disorder, depressed, moderate F31.32 [place] [id number] [place] [address] 54737- 2909 Jun, Bipolar 1 disorder, depressed, moderate F31.32 and Borderline personality disorder F60.3 [place] [address] [place] [address] 15316- 8023 Jun, Bipolar 1 disorder, depressed, moderate F31.32 [place] [id number] [place] [address] 64085- 9772 Jun, Bipolar 1 disorder, depressed, moderate F31.32 [place] [id number] [place] [address] 73430- 1940 May, Bipolar 1 disorder, depressed, moderate F31.32 and Anxiety F41.9 [place] [address] [place] [address] 9374 May, Bipolar 1 disorder, depressed, moderate F31.32 and Anxiety F41.9 [place] [address] [place] [address] 94058- 3127 May, Bipolar 1 disorder, depressed, moderate F31.32 and Anxiety F41.9 [place] [address] [place]- 1233 May, Bipolar 1 disorder, depressed, moderate F31.32 and Borderline personality disorder F60.3 [place] [address] [place] [address] 12558- 1883 May, [place] [address] [place] [address] 105327- 1106 May, Bipolar 1 disorder, depressed, moderate F31.32 and Anxiety F41.9 [place] [address] [place] [address] 76801- 2318 May, Bipolar 1 disorder, depressed, moderate F31.32 and Anxiety F41.9 [place] [address] [place] [address] 98909- 4628 May, [place] [id number] [place] [address] 09332- 2537 May, Bipolar 1 disorder, depressed, moderate F31.32 [place] [address] [place] [address] 53942- 7584 May, Bipolar 1 disorder, depressed, moderate F31.32 and Generalized anxiety disorder F41.1 [place] [address] [place] [address] 74563- 6866 Apr, Bipolar 1 disorder, depressed, moderate F31.32 and Anxiety F41.9 [place] [address] [place] [address] 10256- 2393 Apr, [place] [address] [place] [address] 3816 Apr, Bipolar 1 disorder, depressed, moderate F31.32 and Anxiety F41.9 [place] [address] [place] [address] 11400- 6394 Apr, Bipolar 1 disorder, depressed, moderate F31.32 and Anxiety F41.9 [facility] [id number] [place] [address] 75625- 4427 07 Apr, 2016 Bipolar affective disorder, depressed, severe F31.4 and Generalized anxiety disorder F41.1 [facility] [id number] [place] [address] 87486- 8537 Mar, Bipolar 1 disorder, depressed, moderate F31.32 and Anxiety F41.9 [facility] [id number] [place] [address] 07321- 9910 Mar, Bipolar 1 disorder, depressed, moderate F31.32 and Anxiety F41.9 [place] [address] [place] [address] 47447- 5703 Mar, Bipolar 1 disorder, mixed, moderate F31.62 [place] [address] [place] [address] 68228- 0420 Mar, [facility] [id number] [place] [address] 59517- 0340 Mar, Bipolar 1 disorder, mixed, moderate F31.62 ; Generalized anxiety disorder F41.1 and Other skilled nursing (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 Z79.899 [place] [address] [address] [place] [address] 50231- 6369 Feb, Bipolar 1 disorder, depressed, moderate F31.32 and Anxiety F41.9 [facility] [address] [place] [address] 38727- 7070 Feb, Bipolar 1 disorder, depressed, moderate F31.32 and Other skilled nursing (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 Z79.899 [facility] [id number] [place] [address] 39228- 7839 Feb, [facility] [id number] [place] [address] 53707- 7507 Feb, Bipolar 1 disorder, depressed, moderate F31.32 and Anxiety F41.9 [place] [address] [address]- 5849 Feb, Bipolar 1 disorder, depressed, moderate F31.32 and Other skilled nursing (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 Z79.899 [facility] [address] [place] [address] 04025208- 0759 Feb, Bipolar 1 disorder, depressed, moderate F31.32 and Anxiety F41.9 [place] [address] [address] [place] [address] 89826- 8472 Dec, Bipolar 1 disorder, depressed, moderate F31.32 and Anxiety F41.9 [place] [address] [place] [address] [place] [address] 8278 Oct, [facility] [id number] [place] [address] 58865- 9983 Oct, [place] [address] [id number] [place] [address] 54846- 5413 May, [facility] [id number] [place] [address] 63555- 1410 May, [place] [address] [place] [address] [id number] [place] [address] 299658- 8960 Mar, [place] [address] [place] [address] 29411- 9620 Mar, IMMUNIZATIONS No Known Immunizations SOCIAL HISTORY Never Assessed REASON FOR VISIT Medication refill request PLAN OF CARE VITAL SIGNS MEDICATIONS Medication Instructions Dosage Frequency Start Date End Date Duration Status Levothyroxine Sodium 50 mcg Orally Once a day 1 tablet on an empty stomach in the morning 24h 30 days Active RESULTS No Results [...] Cancer Head and Neck 2005 Hospitalization History [facility] Psychiatric Admission 2016
--- OUTSIDE RECORDS SUMMARY | 2017-11-25 12:32 | XMS REPORT ---
Author Author ANGULOANDRES CasillasELE Organization [facility] Address [address] [place] [address] Care Team Providers Care Salesperson Driver Name Role Phone DICK ANGULO Unavailable PROBLEMS Type Condition ICD9-CM Code IMT94-XA Code Onset Dates Condition Status SNOMED Code Problem Gastroesophageal reflux disease with esophagitis K21.0 Active 466111183 Problem Polysubstance (including opioids) dependence with physiol dependence F19.20 Active 52429461 Problem History of esophageal cancer Z85.01 Active 767995145 Problem Seasonal allergies J30.2 Active 065011616 Problem Pre-diabetes R73.03 Active 936041330 Problem GERD (gastroesophageal reflux disease) K21.9 Active 665216316 Problem Borderline personality disorder F60.3 Active 72944577 Problem Pure hypercholesterolemia E78.00 Active 079335985 Problem Nephrolithiasis N20.0 Active 77006651 Problem STATE HEP A (ADULT) DX V05.3 Active 826153751 Problem Bipolar 1 disorder, depressed, moderate F31.32 Active 28846117 Problem Anxiety F41.9 Active 17249525 Problem Vitamin D insufficiency E55.9 Active 930937408 Problem Essential hypertension I10 Active 02631266 Problem Elevated serum creatinine R79.89 Active 024164510 Problem Acquired hypothyroidism E03.9 Active 993094166 ALLERGIES Substance Reaction Event Type Date Status Adhesive Tape Rash Drug Allergy July, Active Zolpidem Tartrate Client OVERDOSE Drug Allergy July, Active Penicillamine Hives Drug Allergy July, Active Codeine Sulfate Nausea and Vomitting Drug Allergy July, Active ENCOUNTERS Encounter Location Date Diagnosis [facility] [address] [facility] [id number] [address] Nov, [facility] [address] [facility] [id number] [address] Oct, Bipolar 1 disorder, depressed, moderate F31.32 ; Anxiety F41.9 ; Borderline personality disorder F60.3 ; Polysubstance (including opioids ) dependence with physiol dependence F19.20 and 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 [facility] [address] [place] [id number] [place] [address] Oct, Bipolar 1 disorder, depressed, moderate F31.32 [facility] [address] [id number] Sep, Encounter for dental examination Z01.20 [facility] [address] [address] Sep, Acute oral pain K13.79 [facility] [address] 14140- 9189 Sep, Bipolar 1 disorder, depressed, moderate F31.32 [place] [address] 59561- 4343 Sep, Bipolar 1 disorder, depressed, moderate F31.32 [facility] [address] 65279- 6533 Sep, Bipolar 1 disorder, depressed, moderate F31.32 [facility] [address] [address]- 7510 Sep, Essential hypertension I10 ; Acquired hypothyroidism E03.9 ; Anxiety F41.9 ; Chronic nausea R11.0 and Irritant contact dermatitis due to plants, except food L24.7 [facility] [id number] [place] [address] 28067- 8875 Aug, Bipolar 1 disorder, depressed, moderate F31.32 [facility] [address] 06252- 1208 Aug, Bipolar 1 disorder, depressed, moderate F31.32 [facility] [address] 39464- 5756 Aug, Bipolar 1 disorder, depressed, moderate F31.32 [place] [address] [place] [id number] [place] [address] 25307- 3934 July, Candidal dermatitis B37.2 [place] [address] 46852- 8142 July, Acquired hypothyroidism E03.9 [place] [address] [place] [id number] [place] [address] 41371- 7790 July, Bipolar 1 disorder, depressed, moderate F31.32 [facility] [id number] [place] [address] 44541 -4461 July, Seasonal allergies J30.2 [place] [address] 25925- 5557 July, Bipolar 1 disorder, depressed, moderate F31.32 [place] [address] [place] [id number] [place] [address] 11866- 7287 Jun, Pre-diabetes R73.03 [place] [address] [place] [id number] [place] [address] 47639- 5368 Jun, Bipolar 1 disorder, depressed, moderate F31.32 ; Anxiety F41.9 ; Borderline personality disorder F60.3 ; Polysubstance (including opioids ) dependence with physiol dependence F19.20 and Other specified abnormal findings of blood chemistry R79.89 [place] [address] [place] [id number] [place] [address] 66218- 0647 Jun, Bipolar 1 disorder, depressed, moderate F31.32 [place] [address] [place] [id number] [place] [address] 81723- 6458 May, Bipolar 1 disorder, depressed, moderate F31.32 [place] [address] 63456- 0152 May, Bipolar 1 disorder, depressed, moderate F31.32 [place] [address] [place] [id number] [place] [address] 83803- 0937 May, [place] [address] 03785- 6952 May, [place] [address] [place] [id number]- 387 May, Bipolar 1 disorder, depressed, moderate F31.32 [place] [address] 38481- 7191 May, Bipolar 1 disorder, depressed, moderate F31.32 [place] [address] 24107- 8723 May, Other specified abnormal findings of blood chemistry R79.89 [place] [address] [place] [address] 08 May, 2017 Essential hypertension I10 ; Acquired hypothyroidism E03.9 ; Gastroesophageal reflux disease with esophagitis K21.0 ; Hair loss L65.9 ; Hypokalemia, gastrointestinal losses E87.6 ; Pre-diabetes R73.03 ; Candidal dermatitis B37.2 and Pure hypercholesterolemia E78.00 [place] [address] 69984- 8223 Apr, Bipolar 1 disorder, depressed, moderate F31.32 [place] [address] 27212- 7451 Apr, Bipolar 1 disorder, depressed, moderate F31.32 [place] [address] 02144- 0861 Apr, Bipolar 1 disorder, depressed, moderate F31.32 and Anxiety F41.9 [facility] [address] [address] Mar, Encounter for immunization Z23 ; Fall, initial encounter W19.XXXA ; Rib pain on left side R07.81 and Left hip pain M25.552 [place] [address] [place] [id number] [place] [address] 57484- 1613 Mar, Bipolar 1 disorder, depressed, moderate F31.32 and Anxiety F41.9 [place] [address] [place] [id number] [place] [address] 84957- 5478 Mar, Bipolar 1 disorder, depressed, moderate F31.32 ; Anxiety F41.9 ; Borderline personality disorder F60.3 and Polysubstance (including opioids) dependence with physiol dependence F19.20 [facility] [id number] [place] [address] 38886- 4676 Mar, Bipolar 1 disorder, depressed, moderate F31.32 and Anxiety F41.9 [facility] [id number] [place] [address] 25371 -4830 Feb, Irritant contact dermatitis, unspecified trigger L24.9 [facility] [address] 93239- 3758 Feb, [place] [address] 81872- 2779 Feb, [place] [address] 15080- 6579 Feb, Bipolar 1 disorder, depressed, moderate F31.32 and Anxiety F41.9 [facility] [address] 15386- 4111 Feb, Acute non-recurrent maxillary sinusitis J01.00 [facility] [address] [id number] [place] [address] 95012- 0341 Feb, [facility] [address] [place] [id number] [place] [address] 70447- 3207 Feb, Bipolar 1 disorder, depressed, moderate F31.32 [facility] [address] [place] [id number] [place] [address] 04151- 9806 Jan, [facility] [address] [address]80- 7714 Jan, Bipolar 1 disorder, depressed, moderate F31.32 ; Anxiety F41.9 ; Borderline personality disorder F60.3 and Polysubstance (including opioids) dependence with physiol dependence F19.20 [place] [address] [place] [id number] [place] [address] 27 Jan, 2017 Bipolar 1 disorder, depressed, moderate F31.32 and Anxiety F41.9 [place] [address] [place] [address]22 6932 Jan, Bipolar 1 disorder, depressed, moderate F31.32 ; Anxiety F41.9 ; Borderline personality disorder F60.3 and Polysubstance (including opioids) dependence with physiol dependence F19.20 [place] [address] [place] [address] Jan, Bipolar 1 disorder, depressed, moderate F31.32 and Anxiety F41.9 [place] [address] [place] 715025- 9761 Dec, Hypokalemia, gastrointestinal losses E87.6 ; GERD ( gastroesophageal reflux disease) K21.9 and Bipolar 1 disorder, depressed, moderate F31.32 [place] [address] 35198- 6662 Dec, Bipolar 1 disorder, depressed, moderate F31.32 and Anxiety F41.9 [facility] [address] [address] Dec, [address] [address]- [address]33 Dec, [facility] [place] [id number] -[address]1 Dec, Fall (on) (from) other stairs and steps, initial encounter W10.8XXA ; Laceration of left lower extremity, initial encounter S81.812A ; Contusion of right knee, initial encounter S80.01XA and Contusion of right shoulder, initial encounter S40.011A [place] [id number] [place] [address] 79070- 1408 Dec, Bipolar 1 disorder, depressed, moderate F31.32 ; Anxiety F41.9 ; Borderline personality disorder F60.3 and Polysubstance (including opioids) dependence with physiol dependence F19.20 [place] [address] [place] [address]- 279 Dec, Bipolar 1 disorder, depressed, moderate F31.32 and Anxiety F41.9 [place] [address] [place] 715024- 2593 Dec, [place] [address] 677 Dec, Hospital discharge follow-up Z09 ; Nephrolithiasis N20.0 ; Essential hypertension I10 ; Gastroesophageal reflux disease with esophagitis K21.0 and Anxiety F41.9 [place] [address] [place] [id number]- 8981 Nov, [facility] [place] [address] [place] 715025 -440 Nov, Dysuria R30.0 and Acute cystitis with hematuria N30.01 [facility] [address] [address]3735 Nov, [place] [address] [place] [id number]- 8523 Nov, [place] [address] 33808- 0517 Nov, Gastroesophageal reflux disease with esophagitis K21.0 ; Hypercholesteremia E78.00 and Acquired hypothyroidism E03.9 [facility] [address] 25939 -7379 Nov, Left wrist pain M25.532 and Contusion of left wrist, initial encounter S60.212A [place] [address] 38308- 9324 Nov, Bipolar 1 disorder, depressed, moderate F31.32 ; Anxiety F41.9 ; Borderline personality disorder F60.3 and Polysubstance (including opioids) dependence with physiol dependence F19.20 [facility] [address] [place] [address] 29189 -2357 15 Nov, 2016 Abdominal pain R10.9 and GERD (gastroesophageal reflux disease) K21.9 [place] [address] [place] [id number] [place] [address] 60625- 6757 12 Nov, 2016 Hypokalemia, gastrointestinal losses E87.6 [place] [address] [place] [id number] [place] [address] 21746- 8534 11 Nov, 2016 Dehydration E86.0 ; Hypokalemia, gastrointestinal losses E87.6 and Vaginal candidiasis B37.3 [place] [address] 86180- 8741 08 Nov, 2016 Abnormal weight loss R63.4 ; Diarrhea, unspecified R19.7 ; Vomiting, unspecified R11.10 ; Generalized abdominal pain R10.84 and Decreased breath sounds R06.89 [place] [address] [place] [id number] [place] [address] 37163- 3484 Oct, Bipolar 1 disorder, depressed, moderate F31.32 and Anxiety F41.9 [place] [address] [place] [id number] [place] [address] 12150- 2492 Sep, Bipolar 1 disorder, depressed, moderate F31.32 ; Anxiety F41.9 ; Borderline personality disorder F60.3 and Polysubstance (including opioids) dependence with physiol dependence F19.20 [place] [address] [place] [address] 56867- 8058 Sep, Bipolar 1 disorder, depressed, moderate F31.32 and Anxiety F41.9 [place] [address] [place] [id number] [place] [address] 42545- 9452 Sep, Bipolar 1 disorder, depressed, moderate F31.32 [place] [address] [place] [address] 61685- 5875 Sep, Bipolar 1 disorder, depressed, moderate F31.32 and Anxiety F41.9 [facility] [address] [id number] [place] [address] 74128 -0618 Sep, Pain of toe of right foot M79.674 [place] [address] 41251- 2686 Sep, [facility] [address] [id number] [place] [address] 47995 -1050 Sep, Cellulitis of right ankle L03.115 [place] [address] 40667- 2427 Sep, Bipolar 1 disorder, depressed, moderate F31.32 and Anxiety F41.9 [place] [address] 00952- 4823 Sep, [place] [address] 46053- 1422 Sep, [place] [address] 31081- 8914 Sep, Bipolar 1 disorder, depressed, moderate F31.32 and Anxiety F41.9 [place] [address] 98562- 1951 Sep, Accidental spider bite T63.301A [place] [address] 67949- 0007 Aug, Bipolar 1 disorder, depressed, moderate F31.32 ; Anxiety F41.9 ; Borderline personality disorder F60.3 and Polysubstance (including opioids) dependence with physiol dependence F19.20 [place] [address] [place] [id number] [place] [address] 90958- 7021 Aug, [place] [address] 77305- 0588 Aug, Bipolar 1 disorder, depressed, moderate F31.32 and Anxiety F41.9 [place] [address] 60463- 6992 Aug, Pre-diabetes R73.03 ; Acute seasonal allergic rhinitis due to pollen J30.1 ; Hypercholesteremia E78.00 and Nausea R11.0 [place] [address] 99817- 4256 Aug, [facility] [address] [place] [id number] [place] [address] 18389- 4849 13 Aug, 2016 Bipolar 1 disorder, depressed, moderate F31.32 and Anxiety F41.9 [place] [address] [place] [id number] [place] [address] 20375- 0145 08 Aug, 2016 [place] [address] [place] [id number] [place] [address] 09577- 0190 Aug, [place] [address] [place] [id number] [place] [address] 06927- 4329 Aug, [place] [address] [place] [id number] [place] [address] 63390- 8240 Aug, Bipolar 1 disorder, depressed, moderate F31.32 and Anxiety F41.9 [place] [address] [place] [id number] [place] [address] 36698- 7433 Aug, [facility] [address] [place] [id number] [place] [address] 66100 -0578 Aug, Insect bite, initial encounter W57.XXXA and Cellulitis of left lower leg L03.116 [place] [address] [place] [id number] [place] [address] 07416- 5474 Aug, Bipolar 1 disorder, depressed, moderate F31.32 and Borderline personality disorder F60.3 [place] [address] [place] [id number] [place] [address] 23114- 3383 July, [place] [address] [place] [id number] [place] [address] 34939- 7056 July, [facility] [address] [place] [id number] [place] [address] 75893- 0109 July, Encounter for routine adult health examination with abnormal findings Z00.01 ; History of esophageal cancer Z85.01 ; Bipolar 1 disorder, depressed, moderate F31.32 ; Anxiety F41.9 ; Acquired hypothyroidism E03.9 ; Essential hypertension I10 ; Gastroesophageal reflux disease with esophagitis K21.0 and Encounter for immunization Z23 [place] [address] [place] [id number] [place] [address] 08330- 3945 18 Jul, 2016 Bipolar 1 disorder, depressed, moderate F31.32 and Anxiety F41.9 [place] [address] 24889- 2697 July, [place] [address] 92466- 4655 July, Bipolar 1 disorder, depressed, moderate F31.32 and Anxiety F41.9 [place] [address] [place] [id number] [place] [address] 60786- 0566 July, Bipolar 1 disorder, depressed, moderate F31.32 [place] [address] [place] [id number] [place] [address] 47240- 0886 July, Bipolar 1 disorder, depressed, moderate F31.32 and Anxiety F41.9 [place] [address] [place] [id number] [place] [address] 75960- 7751 Jun, Bipolar 1 disorder, depressed, moderate F31.32 [place] [address] [place] [id number] [place] [address] 77939- 9009 Jun, Bipolar 1 disorder, depressed, moderate F31.32 and Borderline personality disorder F60.3 [place] [address] [place] [id number] [place] [address] 21388- 2391 Jun, Bipolar 1 disorder, depressed, moderate F31.32 [place] [address] [place] [id number] [place] [address] 89323- 8212 Jun, Bipolar 1 disorder, depressed, moderate F31.32 [place] [address] [place] [id number] [place] [address] 62356- 3825 May, Bipolar 1 disorder, depressed, moderate F31.32 and Anxiety F41.9 [facility] [address] [place] [address] 18957- 0062 May, Bipolar 1 disorder, depressed, moderate F31.32 and Anxiety F41.9 [facility] [address] [place] [id number] [place] [address] 87939- 6624 May, Bipolar 1 disorder, depressed, moderate F31.32 and Anxiety F41.9 [facility] [address] [place] [id number] [place] [address] 30621- 4571 May, Bipolar 1 disorder, depressed, moderate F31.32 and Borderline personality disorder F60.3 [facility] [address] [place] [id number] [place] [address] 768488- 0348 May, [facility] [address] [place] [id number] [place] [address] 84605- 5532 May, Bipolar 1 disorder, depressed, moderate F31.32 and Anxiety F41.9 [facility] [address] [place] [id number] [place] [address] 65830- 2535 May, Bipolar 1 disorder, depressed, moderate F31.32 and Anxiety F41.9 [facility] [address] [place] [id number] [place] [address] 21581- 8771 May, [facility] [address] [place] [id number] [place] [address] 65480- 5526 May, Bipolar 1 disorder, depressed, moderate F31.32 [facility] [address] [place] [id number] [place] [address] 44889- 3001 May, Bipolar 1 disorder, depressed, moderate F31.32 and Generalized anxiety disorder F41.1 [facility] [address] [place] [id number] [place] [address]60 Apr, Bipolar 1 disorder, depressed, moderate F31.32 and Anxiety F41.9 [facility] [address] [place] [address] 48420- 0352 Apr, [facility] [address] [place] [address] 12055- 8092 13 Apr, 2016 Bipolar 1 disorder, depressed, moderate F31.32 and Anxiety F41.9 [facility] [address] [place] [id number] [place] [address] 01040- 7539 09 Apr, 2016 Bipolar 1 disorder, depressed, moderate F31.32 and Anxiety F41.9 [place] [address] [place] [id number] [place] [address] 08439- 8667 Apr, Bipolar affective disorder, depressed, severe F31.4 and Generalized anxiety disorder F41.1 [place] [address] [place] [id number] [place] [address] 53473- 7451 Mar, Bipolar 1 disorder, depressed, moderate F31.32 and Anxiety F41.9 [place] [address] [place] [id number] [place] [address] 70468- 8218 Mar, Bipolar 1 disorder, depressed, moderate F31.32 and Anxiety F41.9 [place] [address] [place] [id number] [place] [address] 23152- 2182 Mar, Bipolar 1 disorder, mixed, moderate F31.62 [place] [address] [place] [id number] [place] [address] 66631- 2927 Mar, [place] [address] [place] [id number] [place] [address] 86279- 7716 Mar, Bipolar 1 disorder, mixed, moderate F31.62 ; Generalized anxiety disorder F41.1 and 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9 [facility] [address] [place] [address] 97920- 2098 Feb, Bipolar 1 disorder, depressed, moderate F31.32 and 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 [facility] [address] [place] [address] 52386- 1904 Feb, Bipolar 1 disorder, depressed, moderate F31.32 and Anxiety F41.9 [facility] [address] [place] [address] 16705- 2241 Dec, Bipolar 1 disorder, depressed, moderate F31.32 and Anxiety F41.9 [place] [address] [place] [id number] [place] [address] 41888- 2891 Oct, [facility] [address] [place] [id number] [place] [address] 49384- 6711 Oct, [place] [address] [place] [id number] [place] [address] 29499- 9896 May, [facility] [address] [place] [address] 52051- 3745 May, [place] [address] [place] [address] 35589- 3612 Mar, [facility] [address] [place] [address] 86758- 1004 Mar, IMMUNIZATIONS No Known Immunizations SOCIAL HISTORY Never Assessed REASON FOR VISIT rash under the stomach showed up yesterday-[facility] PLAN OF CARE Activity Details Follow Up prn Reason: VITAL SIGNS Height 67.0 in 2017-07-20 Weight 177.2 lbs 2017-07-20 Temperature 98.2 degrees Fahrenheit 2017-07-20 Heart Rate 80 bpm 2017-07-20 Respiratory Rate 18 2017-07-20 BMI 27.75 kg/m2 2017-07-20 Blood pressure systolic 124 mmHg 2017-07-20 Blood pressure diastolic 68 mmHg 2017-07-20 MEDICATIONS Medication Instructions Dosage Frequency Start Date End Date Duration Status Protonix 40 MG Orally Once a day 1 tablet 24h 15 Nov, 2016 Active Gabapentin 300 MG Orally 4 times a day as needed 1 capsule Jan, 30 days Active Lamotrigine 200 mg Orally Once a day 1 tablet 24h Active Potassium Chloride ER 10 MEQ Orally Once a day 1 tablet with food 24h Nov, 90 days Active Lexapro 20 mg Orally Once a day 1 tablet 24h Mar, 30 days Active Amlodipine Besylate 10 MG TAKE 1 TABLET BY MOUTH EVERY DAY 90 Active Ondansetron 8 MG Orally every 8 hrs 1 tablet on the tongue and allow to dissolve 8h Nov, 07 days Active Vitamin D3 400 UNIT Orally Once a day 1 tablet 24h 12 May, 2017 Sep, 30 day(s) Active Atorvastatin Calcium 20 mg Orally Once a day 1 tablet 24h Aug, Active Tramadol HCl 50 mg Orally 2 times a day 1 tablet as needed 12h 17 Jul, 2017 July, 05 days Active Latuda 40 mg Orally Once a day at supper 1 tablet with food Jan, Active Levothyroxine Sodium 50 mcg Orally Once a day 1 tablet on an empty stomach in the morning 24h 30 days Active Triamcinolone Acetonide 0.1 % Externally Twice a day 1 application to affected area 12h 5 Not-Taking RESULTS No Results PROCEDURES Procedure Date Ordered Result Body Site [facility] VISIT ESTABLISHED PATIENT July 20, 2017 INSTRUCTIONS MEDICATIONS ADMINISTERED No Known Medications [...] and Neck 2004 Hospitalization History [facility] 2016
--- OUTSIDE RECORDS SUMMARY | 2017-11-25 12:33 | XMS REPORT ---
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 Name Role Phone MICHELLE, DARCI Unavailable PROBLEMS Type Condition ICD9-CM Code BPD45-FS Code Onset Dates Condition Status SNOMED Code Problem Gastroesophageal reflux disease with esophagitis K21.0 Active 989264089 Problem Polysubstance (including opioids) dependence with physiol dependence F19.20 Active 98570792 Problem History of esophageal cancer Z85.01 Active 716149536 Problem Seasonal allergies J30.2 Active 599220846 Problem Pre-diabetes R73.03 Active 017521911 Problem GERD (gastroesophageal reflux disease) K21.9 Active 601961114 Problem Borderline personality disorder F60.3 Active 38195451 Problem Pure hypercholesterolemia E78.00 Active 101761818 Problem Nephrolithiasis N20.0 Active 47180145 Problem STATE HEP A (ADULT) DX V05.3 Active 182422134 Problem Bipolar 1 disorder, depressed, moderate F31.32 Active 95270319 Problem Anxiety F41.9 Active 77261737 Problem Vitamin D insufficiency E55.9 Active 372693899 Problem Essential hypertension I10 Active 30376012 Problem Elevated serum creatinine R79.89 Active 863851609 Problem Acquired hypothyroidism E03.9 Active 303097763 ALLERGIES No Information ENCOUNTERS Encounter Location Date Diagnosis [facility] [id number] [address] Nov, [facility] [id number] [place] [address] 40495- 6076 Oct, [facility] [address], [place] [address] Oct, [facility] [id number] [address] Oct, Bipolar 1 disorder, depressed, moderate F31.32 [facility] [id number] [id number] Sep, Encounter for dental examination Z01.20 [facility] [id number] [place] [address] 16454- 4094 Sep, Acute oral pain K13.79 [facility] [id number] [place] [address] 49610- 0514 Sep, Bipolar 1 disorder, depressed, moderate F31.32 [facility] [id number] [place] [address] 66885- 0227 Sep, Bipolar 1 disorder, depressed, moderate F31.32 [facility] [id number] [place] [address] 95148- 0901 Sep, Bipolar 1 disorder, depressed, moderate F31.32 [facility] [id number] [place] [address] 41835- 6509 Sep, Essential hypertension I10 ; Acquired hypothyroidism E03.9 ; Anxiety F41.9 ; Chronic nausea R11.0 and Irritant contact dermatitis due to plants, except food L24.7 [facility] [id number] [place] [address] 95347- 0953 Aug, Bipolar 1 disorder, depressed, moderate F31.32 [facility] [id number] [place] [address] 45259- 0565 Aug, Bipolar 1 disorder, depressed, moderate F31.32 [facility] [id number] [place] [address] 14351- 3511 Aug, Bipolar 1 disorder, depressed, moderate F31.32 [facility] [id number] [place] [address] 91334- 1764 July, Candidal dermatitis B37.2 [facility] [id number] [place] [address] 92171- 0533 July, Acquired hypothyroidism E03.9 [place] [id number] [place] [address] 14836- 4303 July, Bipolar 1 disorder, depressed, moderate F31.32 [facility] [id number] [place] [address] 95463 -5498 July, Seasonal allergies J30.2 [place] [address] 56542- 9354 July, Bipolar 1 disorder, depressed, moderate F31.32 [place] [id number] [place] [address] 76635- 6340 Jun, Pre-diabetes R73.03 [place] [address] 38914- 8289 Jun, Bipolar 1 disorder, depressed, moderate F31.32 ; Anxiety F41.9 ; Borderline personality disorder F60.3 ; Polysubstance (including opioids ) dependence with physiol dependence F19.20 and Other specified abnormal findings of blood chemistry R79.89 [place] [id number] [place] [address] 68034- 7841 Jun, Bipolar 1 disorder, depressed, moderate F31.32 [place] [id number] [place] [address] 10330- 2221 May, Bipolar 1 disorder, depressed, moderate F31.32 [place] [id number] [place] [address] 19856- 3289 May, Bipolar 1 disorder, depressed, moderate F31.32 [facility] [id number] [place] [address] 45545- 1709 May, [place] [address] 26973- 7702 May, [place] [id number] [place] [address] 96763- 1076 13 May, 2017 Bipolar 1 disorder, depressed, moderate F31.32 [place] [address] 56149792- 7254 13 May, 2017 Bipolar 1 disorder, depressed, moderate F31.32 [place] [address] 42636- 5655 12 May, 2017 Other specified abnormal findings of blood chemistry R79.[address] 38506- 5056 08 May, 2017 Essential hypertension I10 ; Acquired hypothyroidism E03.9 ; Gastroesophageal reflux disease with esophagitis K21.0 ; Hair loss L65.9 ; Hypokalemia, gastrointestinal losses E87.6 ; Pre-diabetes R73.03 ; Candidal dermatitis B37.2 and Pure hypercholesterolemia E78.[address] 73236- 5726 Apr, Bipolar 1 disorder, depressed, moderate F31.[address] 69445- 1080 Apr, Bipolar 1 disorder, depressed, moderate F31.[address] 46942- 5019 Apr, Bipolar 1 disorder, depressed, moderate F31.32 and Anxiety F41.9 [facility] [place] [address] [address]47 Mar, Encounter for immunization Z23 ; Fall, initial encounter W19.XXXA ; Rib pain on left side R07.81 and Left hip pain M25.[address] 50718- 2376 Mar, Bipolar 1 disorder, depressed, moderate F31.32 and Anxiety F41.[address] 47802- 3769 Mar, Bipolar 1 disorder, depressed, moderate F31.32 ; Anxiety F41.9 ; Borderline personality disorder F60.3 and Polysubstance (including opioids) dependence with physiol dependence F19.[id number] [place] [address] 49408- 4126 Mar, Bipolar 1 disorder, depressed, moderate F31.32 and Anxiety F41.9 [facility] IN [facility] [id number] [place] [address] 91444 -3884 Feb, Irritant contact dermatitis, unspecified trigger L24.9 [facility] [address] 90181- 3886 Feb, [facility] [address] 83995- 5009 Feb, [place] [address] 99596- 7276 Feb, Bipolar 1 disorder, depressed, moderate F31.32 and Anxiety F41.9 [place] [address] 35042- 7933 Feb, Acute non-recurrent maxillary sinusitis J01.00 [place] [address] 93855- 3394 Feb, [place] [address] 44219- 2112 Feb, Bipolar 1 disorder, depressed, moderate F31.32 [place] [address] 66213- 3607 Jan, [place] [address] 57087- 9682 Jan, Bipolar 1 disorder, depressed, moderate F31.32 ; Anxiety F41.9 ; Borderline personality disorder F60.3 and Polysubstance (including opioids) dependence with physiol dependence F19.20 [place] [address] 38198- 5740 Jan, Bipolar 1 disorder, depressed, moderate F31.32 and Anxiety F41.9 [place] [address] 96428- 7004 Jan, Bipolar 1 disorder, depressed, moderate F31.32 ; Anxiety F41.9 ; Borderline personality disorder F60.3 and Polysubstance (including opioids) dependence with physiol dependence F19.[address] 82095- 0916 Jan, Bipolar 1 disorder, depressed, moderate F31.32 and Anxiety F41.9 [place] [address]- 9809 Dec, Hypokalemia, gastrointestinal losses E87.6 ; GERD ( gastroesophageal reflux disease) K21.9 and Bipolar 1 disorder, depressed, moderate F31.32 [place] [id number]- 128 Dec, Bipolar 1 disorder, depressed, moderate F31.32 and Anxiety F41.9 [facility] IN [address] 135605 -6973 Dec, [address] 03041- 9663 Dec, [facility] [place] [id number] -[address]93 Dec, Fall (on) (from) other stairs and steps, initial encounter W10.8XXA ; Laceration of left lower extremity, initial encounter S81.812A ; Contusion of right knee, initial encounter S80.01XA and Contusion of right shoulder, initial encounter S40.011A [place] [id number] [place] [address] 78352- 0188 Dec, Bipolar 1 disorder, depressed, moderate F31.32 ; Anxiety F41.9 ; Borderline personality disorder F60.3 and Polysubstance (including opioids) dependence with physiol dependence F19.[address] 44003- 2497 Dec, Bipolar 1 disorder, depressed, moderate F31.32 and Anxiety F41.9 [place] [id number] [place] [address] 44024- 8130 Dec, [place] [address] [id number]- 0992 Dec, Hospital discharge follow-up Z09 ; Nephrolithiasis N20.0 ; Essential hypertension I10 ; Gastroesophageal reflux disease with esophagitis K21.0 and Anxiety F41.9 [place] [address] 30856- 7921 28 Nov, 2016 [facility] W[facility] IN [place] [address] 69889 -6571 24 Nov, 2016 Dysuria R30.0 and Acute cystitis with hematuria N30.01 [facility] IN [place] [address] 32355 -0183 Nov, [place] [address] 32062- 2160 Nov, [place] [address] 04134- 1799 Nov, Gastroesophageal reflux disease with esophagitis K21.0 ; Hypercholesteremia E78.00 and Acquired hypothyroidism E03.9 [facility] [place] [address] [address] -0556 18 Nov, 2016 Left wrist pain M25.532 and Contusion of left wrist, initial encounter S60.212A [place] [address] 35774- 9259 18 Nov, 2016 Bipolar 1 disorder, depressed, moderate F31.32 ; Anxiety F41.9 ; Borderline personality disorder F60.3 and Polysubstance (including opioids) dependence with physiol dependence F19.20 [facility] IN [address] 66433 -6992 15 Nov, 2016 Abdominal pain R10.9 and GERD (gastroesophageal reflux disease) K21.[address] 25419- 4511 Nov, Hypokalemia, gastrointestinal losses E87.6 [place] [address] 02860- 2784 11 Nov, 2016 Dehydration E86.0 ; Hypokalemia, gastrointestinal losses E87.6 and Vaginal candidiasis B37.[address] 37504- 8932 08 Nov, 2016 Abnormal weight loss R63.4 ; Diarrhea, unspecified R19.7 ; Vomiting, unspecified R11.10 ; Generalized abdominal pain R10.84 and Decreased breath sounds R06.[address] 772885- 3736 Oct, Bipolar 1 disorder, depressed, moderate F31.32 and Anxiety F41.[address] 53809- 2943 Sep, Bipolar 1 disorder, depressed, moderate F31.32 ; Anxiety F41.9 ; Borderline personality disorder F60.3 and Polysubstance (including opioids) dependence with physiol dependence F19.[address] 61617- 7568 Sep, Bipolar 1 disorder, depressed, moderate F31.32 and Anxiety F41.9 [place] [id number] [place] [address] 16414- 6299 Sep, Bipolar 1 disorder, depressed, moderate F31.32 [place] [id number] [place] [address] 97788- 9582 Sep, Bipolar 1 disorder, depressed, moderate F31.32 and Anxiety F41.9 [facility] IN [address] 47777 -3606 Sep, Pain of toe of right foot M79.674 [place] [id number] [place] [address] 06041- 0778 Sep, [facility] [id number] [place] [address] 65990 -4609 Sep, Cellulitis of right ankle L03.115 [place] [address] 40209- 7489 Sep, Bipolar 1 disorder, depressed, moderate F31.32 and Anxiety F41.9 [facility] [id number] [place] [address] 59109- 1235 Sep, [place] [address] 91439- 7081 Sep, [place] [address] 95105- 0679 Sep, Bipolar 1 disorder, depressed, moderate F31.32 and Anxiety F41.9 [place] [address] 11361- 2366 Sep, Accidental spider bite T63.301A [place] [address] 54824- 3207 Aug, Bipolar 1 disorder, depressed, moderate F31.32 ; Anxiety F41.9 ; Borderline personality disorder F60.3 and Polysubstance (including opioids) dependence with physiol dependence F19.20 [place] [id number] [place] [address] 33504- 1821 Aug, [place] [id number] [place] [address] 64646- 3163 Aug, Bipolar 1 disorder, depressed, moderate F31.32 and Anxiety F41.9 [place] [id number] [place] [address] 43857- 6541 Aug, Pre-diabetes R73.03 ; Acute seasonal allergic rhinitis due to pollen J30.1 ; Hypercholesteremia E78.00 and Nausea R11.0 [place] [id number] [place] [address] 79395- 3230 Aug, [place] [address] [place] [address] [address]- 4619 13 Aug, 2016 Bipolar 1 disorder, depressed, moderate F31.32 and Anxiety F41.9 [facility] [address] 40879- 9707 08 Aug, 2016 [facility] [address] 69101- 7646 Aug, [place] [address] 56598- 2481 Aug, [place] [address] 85156- 8480 Aug, Bipolar 1 disorder, depressed, moderate F31.32 and Anxiety F41.9 [place] [address] 51607- 2936 Aug, [facility] [address] 23402 -8491 Aug, Insect bite, initial encounter W57.XXXA and Cellulitis of left lower leg L03.116 [place] [address] 61275- 6963 Aug, Bipolar 1 disorder, depressed, moderate F31.32 and Borderline personality disorder F60.3 [place] [address] 91706- 8970 July, [place] [address] 36598- 8686 July, [place] [id number] [place] [address] 96979- 4792 July, Encounter for routine adult health examination with abnormal findings Z00.01 ; History of esophageal cancer Z85.01 ; Bipolar 1 disorder, depressed, moderate F31.32 ; Anxiety F41.9 ; Acquired hypothyroidism E03.9 ; Essential hypertension I10 ; Gastroesophageal reflux disease with esophagitis K21.0 and Encounter for immunization Z23 [place] [address] [place] [address]- 2882 July, Bipolar 1 disorder, depressed, moderate F31.32 and Anxiety F41.9 [facility] [id number] [place] [address] 53531- 4549 July, [facility] [id number] [place] [address] 296012- 0277 July, Bipolar 1 disorder, depressed, moderate F31.32 and Anxiety F41.9 [place] [id number] [place] [address] 03406- 9274 July, Bipolar 1 disorder, depressed, moderate F31.32 [place] [id number] [place] [address] 9418 July, Bipolar 1 disorder, depressed, moderate F31.32 and Anxiety F41.9 [place] [id number] [place] [address] 29171- 9620 Jun, Bipolar 1 disorder, depressed, moderate F31.32 [place] [id number] [place] [address] 18009- 8010 Jun, Bipolar 1 disorder, depressed, moderate F31.32 and Borderline personality disorder F60.3 [place] [id number] [place] [address] 60543- 3858 Jun, Bipolar 1 disorder, depressed, moderate F31.32 [place] [id number] [place] [address] 86688- 5132 Jun, Bipolar 1 disorder, depressed, moderate F31.32 [place] [address] [place] [address] 16249- 2318 May, Bipolar 1 disorder, depressed, moderate F31.32 and Anxiety F41.9 [facility] [id number] [place] [address] 63292- 8905 May, Bipolar 1 disorder, depressed, moderate F31.32 and Anxiety F41.9 [place] [id number] [place] [address] 23099- 0572 May, Bipolar 1 disorder, depressed, moderate F31.32 and Anxiety F41.9 [place] [id number] [place] [address] 62027- 1456 May, Bipolar 1 disorder, depressed, moderate F31.32 and Borderline personality disorder F60.3 [place] [id number] [place] [address] 09129- 2959 May, [place] [id number] [place] [address] 78530- 8659 May, Bipolar 1 disorder, depressed, moderate F31.32 and Anxiety F41.9 [place] [id number] [place] [address] 157599- 9814 May, Bipolar 1 disorder, depressed, moderate F31.32 and Anxiety F41.9 [place] [id number] [place] [address] 57833- 6501 May, [place] [id number] [place] [address] 36877- 3862 May, Bipolar 1 disorder, depressed, moderate F31.32 [place] [id number] [place] [address] 63147- 0489 May, Bipolar 1 disorder, depressed, moderate F31.32 and Generalized anxiety disorder F41.1 [place] [id number] [place] [address] 17081- 1277 Apr, Bipolar 1 disorder, depressed, moderate F31.32 and Anxiety F41.9 [place] [id number] [place] [address] 85522- 5440 Apr, [place] [id number] [place] [address] 41492- 0718 Apr, Bipolar 1 disorder, depressed, moderate F31.32 and Anxiety F41.9 [place] [id number] [place] [address] 66538- 5383 09 Apr, 2016 Bipolar 1 disorder, depressed, moderate F31.32 and Anxiety F41.9 [place] [address] [place] [address] 62761- 0297 07 Apr, 2016 Bipolar affective disorder, depressed, severe F31.4 and Generalized anxiety disorder F41.1 [facility] [address] [place] [address] 76268- 3118 Mar, Bipolar 1 disorder, depressed, moderate F31.32 and Anxiety F41.9 [place] [id number] [place] [address] 45513- 8120 Mar, Bipolar 1 disorder, depressed, moderate F31.32 and Anxiety F41.9 [place] [id number] [place] [address] 74389- 6122 Mar, Bipolar 1 disorder, mixed, moderate F31.62 [place] [id number] [place] [address] 77342- 4494 Mar, [place] [id number] [place] [address] 23514- 4563 Mar, Bipolar 1 disorder, mixed, moderate F31.62 ; Generalized anxiety disorder F41.1 and 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 [place] [address] [place] [address] 99135- 4032 Feb, Bipolar 1 disorder, depressed, moderate F31.32 and Anxiety F41.9 [facility] [address] [place] [address] 25747- 0749 Feb, Bipolar 1 disorder, depressed, moderate F31.32 and Other shelter (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 Z79.899 [place] [id number] [place] [address] 93754- 0889 Feb, [place] [address] [place] [address] 02298- 7807 Feb, Bipolar 1 disorder, depressed, moderate F31.32 and Anxiety F41.9 [facility] [address] [address]- 2841 Feb, Bipolar 1 disorder, depressed, moderate F31.32 and 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 [facility] [address] [place] [address] 19832- 5101 Feb, Bipolar 1 disorder, depressed, moderate F31.32 and Anxiety F41.9 [place] [address] [place] [address] [id number] [place] [address]- 5915 Dec, Bipolar 1 disorder, depressed, moderate F31.32 and Anxiety F41.9 [place] [address] [place] [id number] [place] [address]- 1104 Oct, [place] [address] [place] [id number] [place] [address] 14687- 0182 Oct, [place] [address] [place] [id number] [place] [address] 26457- 2039 May, [place] [address] [place] [id number] [place] [address] 86709- 0022 May, [place] [address] [place] [id number] [place] [address]- 8212 Mar, [place] [address] [place] [address] 84036- 2198 Mar, IMMUNIZATIONS No Known Immunizations SOCIAL HISTORY Never Assessed REASON FOR VISIT Medication refill request PLAN OF CARE VITAL SIGNS MEDICATIONS Medication Instructions Dosage Frequency Start Date End Date Duration Status Lexapro 20 mg Orally Once a day [...] Cancer Head and Neck 2004 Hospitalization History [facility] Psychiatric Admission 2016
--- OUTSIDE RECORDS SUMMARY | 2017-11-25 12:33 | XMS REPORT ---
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 Name Role Phone BRNETON ADKINS Unavailable PROBLEMS Type Condition ICD9-CM Code [id number] Code Onset Dates Condition Status SNOMED Code Problem Gastroesophageal reflux disease with esophagitis K21.0 Active 323447590 Problem Polysubstance (including opioids) dependence with physiol dependence F19.20 Active 08517010 Problem History of esophageal cancer Z85.01 Active 950785722 Problem Seasonal allergies J30.2 Active 207238808 Problem Pre-diabetes R73.03 Active 274308169 Problem GERD (gastroesophageal reflux disease) K21.9 Active 992441951 Problem Borderline personality disorder F60.3 Active 93995559 Problem Pure hypercholesterolemia E78.00 Active 707700436 Problem Nephrolithiasis N20.0 Active 80311374 Problem STATE HEP A (ADULT) DX V05.3 Active 563451752 Problem Bipolar 1 disorder, depressed, moderate F31.32 Active 96819524 Problem Anxiety F41.9 Active 59518084 Problem Vitamin D insufficiency E55.9 Active 629054505 Problem Essential hypertension I10 Active 77146293 Problem Elevated serum creatinine R79.89 Active 785552681 Problem Acquired hypothyroidism E03.9 Active 026572747 ALLERGIES Substance Reaction Event Type Date Status Adhesive Tape Rash Drug Allergy July, Active Zolpidem Tartrate Client OVERDOSE Drug Allergy July, Active Penicillamine Hives Drug Allergy July, Active Codeine Sulfate Nausea and Vomitting Drug Allergy July, Active ENCOUNTERS Encounter Location Date Diagnosis [facility] [address] [facility] [id number] [address] Nov, [facility] [address] [facility] [id number] [address] Oct, [facility] [id number] [place] [address] 33523- 9767 Oct, [facility] [address] [place] [id number] [place] [address] 15396- 2724 Oct, Bipolar 1 disorder, depressed, moderate F31.32 [facility] [id number] [place] [id number] Sep, Encounter for dental examination Z01.20 [facility] [address] 13935- [address] Sep, Acute oral pain K13.79 [facility] [address] 91869- 4696 Sep, Bipolar 1 disorder, depressed, moderate F31.32 [facility] [address] [id number] [place] [address] 29960- 7854 Sep, Bipolar 1 disorder, depressed, moderate F31.32 [facility] [id number] [place] [address] 59412- 8606 Sep, Bipolar 1 disorder, depressed, moderate F31.32 [facility] [address] [id number] [place] [address] 84829- 2933 Sep, Essential hypertension I10 ; Acquired hypothyroidism E03.9 ; Anxiety F41.9 ; Chronic nausea R11.0 and Irritant contact dermatitis due to plants, except food L24.7 [facility] [id number] [place] [address] 69550- 7964 Aug, Bipolar 1 disorder, depressed, moderate F31.32 [facility] [id number] [place] [address] 11351- 8204 Aug, Bipolar 1 disorder, depressed, moderate F31.32 [facility] [id number] [place] [address] 67556- 7311 Aug, Bipolar 1 disorder, depressed, moderate F31.32 [facility] [id number] [place] [address] 90012- 0279 July, Candidal dermatitis B37.2 [place] [address] [id number] [place] [address] 27478- 0732 July, Acquired hypothyroidism E03.9 [place] [address] [id number] [place] [address] 72036- 9939 July, Bipolar 1 disorder, depressed, moderate F31.32 [facility] WALK IN [facility] [address] 238[address]9793 July, Seasonal allergies J30.2 [place] [address] 87365- 3836 July, Bipolar 1 disorder, depressed, moderate F31.32 [place] [address] [id number] [place] [address] 91012- 0340 Jun, Pre-diabetes R73.03 [place] [address] 89487- 6766 Jun, Bipolar 1 disorder, depressed, moderate F31.32 ; Anxiety F41.9 ; Borderline personality disorder F60.3 ; Polysubstance (including opioids ) dependence with physiol dependence F19.20 and Other specified abnormal findings of blood chemistry R79.89 [place] [address] [place] [id number] [place] [address] 70217- 7038 Jun, Bipolar 1 disorder, depressed, moderate F31.32 [place] [address] [id number] [place] [address] 07870- 5117 May, Bipolar 1 disorder, depressed, moderate F31.32 [place] [address] [id number] [place] [address] 21440- 5961 May, Bipolar 1 disorder, depressed, moderate F31.32 [place] [address] [address] [id number] [place] [address] 18036- 9137 May, [place] [address] 98917- 1704 May, [place] [address] 31116- 5130 May, Bipolar 1 disorder, depressed, moderate F31.32 [place] [address] [place] [id number]- 5523 May, Bipolar 1 disorder, depressed, moderate F31.32 [place] [address] 00038- 5010 May, Other specified abnormal findings of blood chemistry R79.89 [place] [address] 29111- 5640 May, Essential hypertension I10 ; Acquired hypothyroidism E03.9 ; Gastroesophageal reflux disease with esophagitis K21.0 ; Hair loss L65.9 ; Hypokalemia, gastrointestinal losses E87.6 ; Pre-diabetes R73.03 ; Candidal dermatitis B37.2 and Pure hypercholesterolemia E78.00 [place] [address] 05912- 3249 Apr, Bipolar 1 disorder, depressed, moderate F31.32 [place] [address] 28741- 7063 Apr, Bipolar 1 disorder, depressed, moderate F31.32 [place] [address] 36195- 4808 Apr, Bipolar 1 disorder, depressed, moderate F31.32 and Anxiety F41.9 [facility] [address] 477[address] Mar, Encounter for immunization Z23 ; Fall, initial encounter W19.XXXA ; Rib pain on left side R07.81 and Left hip pain M25.552 [place] [address] 56297- 4463 Mar, Bipolar 1 disorder, depressed, moderate F31.32 and Anxiety F41.9 [place] [address] 49327- 0955 Mar, Bipolar 1 disorder, depressed, moderate F31.32 ; Anxiety F41.9 ; Borderline personality disorder F60.3 and Polysubstance (including opioids) dependence with physiol dependence F19.20 [facility] [id number] [place] [address] 92378- 6312 Mar, Bipolar 1 disorder, depressed, moderate F31.32 and Anxiety F41.9 [facility] WALK IN [facility] [address] 36538 -4[address] Feb, Irritant contact dermatitis, unspecified trigger L24.9 [facility] [address] 148085- 7579 Feb, [facility] [address] 16731- 8573 Feb, [place] [address] 16114- 9758 Feb, Bipolar 1 disorder, depressed, moderate F31.32 and Anxiety F41.9 [facility] [address] 34758- 2704 Feb, Acute non-recurrent maxillary sinusitis J01.00 [facility] [address] 44930- 5137 Feb, [place] [address] 21505- 0943 Feb, Bipolar 1 disorder, depressed, moderate F31.32 [facility] [id number] [place] [address] 11212- 2010 Jan, [facility] [address] 920964- 9203 Jan, Bipolar 1 disorder, depressed, moderate F31.32 ; Anxiety F41.9 ; Borderline personality disorder F60.3 and Polysubstance (including opioids) dependence with physiol dependence F19.20 [facility] [address] 28052- 535 Jan, Bipolar 1 disorder, depressed, moderate F31.32 and Anxiety F41.[address] 285 Jan, Bipolar 1 disorder, depressed, moderate F31.32 ; Anxiety F41.9 ; Borderline personality disorder F60.3 and Polysubstance (including opioids) dependence with physiol dependence F19.[address] 990 Jan, Bipolar 1 disorder, depressed, moderate F31.32 and Anxiety F41.[address] 812 Dec, Hypokalemia, gastrointestinal losses E87.6 ; GERD ( gastroesophageal reflux disease) K21.9 and Bipolar 1 disorder, depressed, moderate F31.32 [place] [address] 108 Dec, Bipolar 1 disorder, depressed, moderate F31.32 and Anxiety F41.9 [facility] [place] [address] Dec, [place] [id number]- 846 Dec, [facility] W[facility] IN [place] 19898106 -8369 Dec, Fall (on) (from) other stairs and steps, initial encounter W10.8XXA ; Laceration of left lower extremity, initial encounter S81.812A ; Contusion of right knee, initial encounter S80.01XA and Contusion of right shoulder, initial encounter S40.011A [address] [address]35- 7117 Dec, Bipolar 1 disorder, depressed, moderate F31.32 ; Anxiety F41.9 ; Borderline personality disorder F60.3 and Polysubstance (including opioids) dependence with physiol dependence F19.20 [place] [id number] [place] [address] 63714- 5917 Dec, Bipolar 1 disorder, depressed, moderate F31.32 and Anxiety F41.9 [place] [address] [place] 35419686- 5679 Dec, [place] 642949- 5353 Dec, Hospital discharge follow-up Z09 ; Nephrolithiasis N20.0 ; Essential hypertension I10 ; Gastroesophageal reflux disease with esophagitis K21.0 and Anxiety F41.9 [place] [address] [place] 029992- 4431 Nov, [facility] WALK IN [address] [address] Nov, Dysuria R30.0 and Acute cystitis with hematuria N30.01 [facility] WALK IN [place] [address] 825[address] -9751 Nov, [address] 39309- 6575 Nov, [place] [address] 44453- 1707 Nov, Gastroesophageal reflux disease with esophagitis K21.0 ; Hypercholesteremia E78.00 and Acquired hypothyroidism E03.9 [facility] WALK IN [address] [address] Nov, Left wrist pain M25.532 and Contusion of left wrist, initial encounter S60.212A [address] 43253- 6828 Nov, Bipolar 1 disorder, depressed, moderate F31.32 ; Anxiety F41.9 ; Borderline personality disorder F60.3 and Polysubstance (including opioids) dependence with physiol dependence F19.20 [facility] [address] [id number] [place] [address] 79926 -4550 15 Nov, 2016 Abdominal pain R10.9 and GERD (gastroesophageal reflux disease) K21.9 [place] [address] 69624- 8368 12 Nov, 2016 Hypokalemia, gastrointestinal losses E87.6 [place] [address] 85247- 0228 11 Nov, 2016 Dehydration E86.0 ; Hypokalemia, gastrointestinal losses E87.6 and Vaginal candidiasis B37.3 [place] [address] 49000- 3057 08 Nov, 2016 Abnormal weight loss R63.4 ; Diarrhea, unspecified R19.7 ; Vomiting, unspecified R11.10 ; Generalized abdominal pain R10.84 and Decreased breath sounds R06.89 [place] [address] 08602- 8929 Oct, Bipolar 1 disorder, depressed, moderate F31.32 and Anxiety F41.9 [place] [address] 50193- 2334 Sep, Bipolar 1 disorder, depressed, moderate F31.32 ; Anxiety F41.9 ; Borderline personality disorder F60.3 and Polysubstance (including opioids) dependence with physiol dependence F19.20 [place] [address] [id number] [place] [address] 03837- 4278 Sep, Bipolar 1 disorder, depressed, moderate F31.32 and Anxiety F41.9 [place] [address] [id number] [place] [address] 09004- 0406 Sep, Bipolar 1 disorder, depressed, moderate F31.32 [place] [address] [id number] [place] [address] 31383- 4275 Sep, Bipolar 1 disorder, depressed, moderate F31.32 and Anxiety F41.9 [facility] W[facility] IN [facility] [address] 77[address] -1067 Sep, Pain of toe of right foot M79.674 [facility] [id number] [place] [address] 62036- 5992 Sep, [facility] WALK IN [facility] [id number] [place] [address] 25484 -2445 Sep, Cellulitis of right ankle L03.115 [facility] [id number] [place] [address] 14870- 6112 Sep, Bipolar 1 disorder, depressed, moderate F31.32 and Anxiety F41.9 [facility] [address] [place] [id number] [place] [address] 65501- 1836 Sep, [place] [address] 64801- 6413 Sep, [facility] [address] [place] [id number] [place] [address] 68015- 8024 Sep, Bipolar 1 disorder, depressed, moderate F31.32 and Anxiety F41.9 [facility] [id number] [place] [address] 44541- 5865 Sep, Accidental spider bite T63.301A [place] [address] [id number] [place] [address] 37495- 3710 Aug, Bipolar 1 disorder, depressed, moderate F31.32 ; Anxiety F41.9 ; Borderline personality disorder F60.3 and Polysubstance (including opioids) dependence with physiol dependence F19.20 [facility] [address] [place] [address] 52756- 1572 Aug, [facility] [address] [id number] [place] [address] 09197- 5982 Aug, Bipolar 1 disorder, depressed, moderate F31.32 and Anxiety F41.9 [place] [address] [id number] [place] [address] 41378- 1627 Aug, Pre-diabetes R73.03 ; Acute seasonal allergic rhinitis due to pollen J30.1 ; Hypercholesteremia E78.00 and Nausea R11.0 [place] [address] [id number] [place] [address] 67254- 1669 Aug, [place] [address] 36739- 8944 Aug, Bipolar 1 disorder, depressed, moderate F31.32 and Anxiety F41.9 [place] [address] 07522- 9890 Aug, [place] [address] [id number] [place] [address] 06691- 0979 Aug, [place] [address] 44233- 6407 Aug, [place] [address] [id number] [place] [address] 17847- 4128 Aug, Bipolar 1 disorder, depressed, moderate F31.32 and Anxiety F41.9 [place] [address] [id number] [place] [address] 05774- 0415 Aug, [facility] WALK IN [facility] [address] [place] [id number] [place] [address] 09661 -2643 Aug, Insect bite, initial encounter W57.XXXA and Cellulitis of left lower leg L03.116 [place] [address] [id number] [place] [address] 55594- 1675 Aug, Bipolar 1 disorder, depressed, moderate F31.32 and Borderline personality disorder F60.3 [place] [address] [id number] [place] [address] 09480- 6186 July, [place] [address] 45195- 9302 July, [facility] [address] [id number] [place] [address] 41342- 7426 July, Encounter for routine adult health examination with abnormal findings Z00.01 ; History of esophageal cancer Z85.01 ; Bipolar 1 disorder, depressed, moderate F31.32 ; Anxiety F41.9 ; Acquired hypothyroidism E03.9 ; Essential hypertension I10 ; Gastroesophageal reflux disease with esophagitis K21.0 and Encounter for immunization Z23 [place] [address] [place] 35419807- 4822 July, Bipolar 1 disorder, depressed, moderate F31.32 and Anxiety F41.9 [place] [address] [place] [id number]- 1777 July, [place] [address] [place] 029991- 2260 July, Bipolar 1 disorder, depressed, moderate F31.32 and Anxiety F41.9 [place] [address] [place] 029998- 6367 July, Bipolar 1 disorder, depressed, moderate F31.32 [place] [address] 37885- 0960 July, Bipolar 1 disorder, depressed, moderate F31.32 and Anxiety F41.9 [place] [address] 417062- 8748 Jun, Bipolar 1 disorder, depressed, moderate F31.32 [place] [address] 92300- 8915 Jun, Bipolar 1 disorder, depressed, moderate F31.32 and Borderline personality disorder F60.3 [place] [address] 69032- 1189 Jun, Bipolar 1 disorder, depressed, moderate F31.32 [place] [address] 44407- 9711 Jun, Bipolar 1 disorder, depressed, moderate F31.32 [place] [address] [place] 35419557- 4585 May, Bipolar 1 disorder, depressed, moderate F31.32 and Anxiety F41.9 [place] [address] [place] [address] 60635- 1224 May, Bipolar 1 disorder, depressed, moderate F31.32 and Anxiety F41.9 [facility] [address] [place] [id number] [place] [address]- [address]25 May, Bipolar 1 disorder, depressed, moderate F31.32 and Anxiety F41.9 [facility] [address] [place] [id number] [place] [address] 51707- 4353 May, Bipolar 1 disorder, depressed, moderate F31.32 and Borderline personality disorder F60.3 [place] [address] [place] [id number] [place] [address] 152083- 0732 May, [place] [address] [place] [id number] [place] [address] 19119- 0883 May, Bipolar 1 disorder, depressed, moderate F31.32 and Anxiety F41.9 [place] [address] [place] [id number] [place] [address] 96475- 6387 May, Bipolar 1 disorder, depressed, moderate F31.32 and Anxiety F41.9 [place] [address] [place] [id number] [place] [address] 68848- 1481 May, [place] [address] [place] [id number] [place] [address] 36406- 5056 May, Bipolar 1 disorder, depressed, moderate F31.32 [place] [address] [place] [id number] [place] [address] 51373- 0873 May, Bipolar 1 disorder, depressed, moderate F31.32 and Generalized anxiety disorder F41.1 [place] [address] [place] [id number] [place] [address] 64240- 2742 Apr, Bipolar 1 disorder, depressed, moderate F31.32 and Anxiety F41.9 [facility] [id number] [place] [address] 78964- 6553 Apr, [facility] [address] [place] [id number] [place] [address]- [address]46 13 Apr, 2016 Bipolar 1 disorder, depressed, moderate F31.32 and Anxiety F41.9 [place] [address] [place] [id number] [place] [address] 81366- 4939 09 Apr, 2016 Bipolar 1 disorder, depressed, moderate F31.32 and Anxiety F41.9 [place] [address] [place] [id number] [place] [address] 20341- 3875 07 Apr, 2016 Bipolar affective disorder, depressed, severe F31.4 and Generalized anxiety disorder F41.1 [place] [address] [place] [id number] [place] [address] 27772- 2658 Mar, Bipolar 1 disorder, depressed, moderate F31.32 and Anxiety F41.9 [place] [address] [place] [id number] [place] [address] 32362- 3324 Mar, Bipolar 1 disorder, depressed, moderate F31.32 and Anxiety F41.9 [place] [address] [place] [id number] [place] [address] 23878- 9636 Mar, Bipolar 1 disorder, mixed, moderate F31.62 [place] [address] [place] [id number] [place] [address] 23038- 9781 Mar, [place] [address] [place] [id number] [place] [address] 81173- 0246 Mar, Bipolar 1 disorder, mixed, moderate F31.62 ; Generalized anxiety disorder F41.1 and Other skilled nursing (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 Z79.899 [place] [address] [place] [id number] [place] [address] 70513- 4578 Feb, Bipolar 1 disorder, depressed, moderate F31.32 and Anxiety F41.9 [place] [address] [place] [id number] [place] [address] 33556- 2149 Feb, Bipolar 1 disorder, depressed, moderate F31.32 and Other r d intern (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 Z79.899 [place] [address] [place] [id number] [place] [address] 68436- 7266 Feb, [facility] [address] [place] [address] 133018- 8053 Feb, Bipolar 1 disorder, depressed, moderate F31.32 and Anxiety F41.9 [place] [address] [place] [address] 17785- 5266 Feb, Bipolar 1 disorder, depressed, moderate F31.32 and Other skilled nursing (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 Z79.899 [place] [address] [place] [id number] [place] [address] 300494- 4671 Feb, Bipolar 1 disorder, depressed, moderate F31.32 and Anxiety F41.9 [place] [address] [place] [id number] [place] [address] 90384- 3743 Dec, Bipolar 1 disorder, depressed, moderate F31.32 and Anxiety F41.9 [place] [address] [place] [id number] [place] [address] 75808- 4940 Oct, [place] [address] [place] [id number] [place] [address] 42581- 4731 Oct, [place] [address] [place] [id number] [place] [address] 29931- 1076 May, [place] [address] [place] [id number] [place] [address] 61926- 9906 May, [place] [id number] [place] [address] 38448- 6712 Mar, [place] [id number] [place] [address] 77436- 8823 Mar, IMMUNIZATIONS Vaccine Route Administration Date Status DEXAMETHASONE 4MG/ML (PER 1 MG) IM Intramuscular July 11, 2017 Administered DEPO MEDROL 40 MG/ML IM Intramuscular July 11, 2017 Administered SOCIAL HISTORY Never Assessed REASON FOR VISIT allergies Pt c/o problems with allergies, has taken oral benadryl with no relief YESSICA Kramer PLAN OF CARE Activity Details Follow Up prn Reason: VITAL SIGNS Height 67.0 in 2017-07-11 Weight 179 lbs 2017-07-11 Temperature 97.0 degrees Fahrenheit 2017-07-11 Heart Rate 98 bpm 2017-07-11 Respiratory Rate 20 2017-07-11 BMI 28.03 kg/m2 2017-07-11 Blood pressure systolic 118 mmHg 2017-07-11 Blood pressure diastolic 76 mmHg 2017-07-11 MEDICATIONS Medication Instructions Dosage Frequency Start Date End Date Duration Status Ondansetron 8 MG Orally every 8 hrs 1 tablet on the tongue and allow to dissolve 8h Nov, 07 days Active Atorvastatin Calcium 20 mg Orally Once a day 1 tablet 24h Aug, Active Levothyroxine Sodium 50 MCG Orally Once a day 1 tablet on an empty stomach in the morning 24h Active Lexapro 20 mg Orally Once a day 1 tablet 24h Mar, Active Potassium Chloride ER 10 MEQ Orally Once a day 1 tablet with food 24h 90 Active Diflucan 150 MG Orally one time 1 tablet Nov, 1 dose Not- Taking Pyridium 200 MG Orally Three times a day 1 tablet after meals 8h Not-Taking Vitamin D3 400 UNIT Orally Once a day 1 tablet 24h May, Sep, 30 day(s) Active Amlodipine Besylate 10 MG TAKE 1 TABLET BY MOUTH EVERY DAY 90 Active Pantoprazole Sodium 40 MG TAKE 1 TABLET BY MOUTH EVERY DAY 30 Active Latuda 40 mg Orally Once a day at supper 1 tablet with food Jan, Active Triamcinolone Acetonide 0.1 % Externally Twice a day 1 application to affected area 12h 5 Not-Taking Potassium Chloride ER 10 MEQ Orally Once a day 1 tablet with food 24h Nov, 90 days Active Protonix 40 MG Orally Once a day 1 tablet 24h 15 Nov, 2016 Active Lamotrigine 200 mg Orally Once a day 1 tablet 24h Active Gabapentin 300 MG Orally 4 times a day as needed 1 capsule Jan, 30 days Active Omeprazole 40 MG Orally Once a day 1 capsule 24h 90 days Not-Taking RESULTS No Results PROCEDURES Procedure Date Ordered Result Body Site DEPO MEDROL 40 MG/ML July 11, 2017 THER/PROPH/DIAG INJ, SC/IM July 11, 2017 [facility] VISIT ESTABLISHED PATIENT July 11, 2017 DEXAMETHASONE 4MG/ML (PER 1 MG) July 11, 2017 INSTRUCTIONS MEDICATIONS ADMINISTERED No Known [...] Cancer Head and Neck 2004 Hospitalization History [facility] 2015
--- OUTSIDE RECORDS SUMMARY | 2017-11-25 12:34 | XMS REPORT ---
Author Author GURINDER NORTON Organization [facility] Address [address] [place] [address] Care Team Providers Care Hvac Estimator Name Role Phone GURINDER NORTON Unavailable PROBLEMS Type Condition ICD9-CM Code XZB19-TS Code Onset Dates Condition Status SNOMED Code Problem Gastroesophageal reflux disease with esophagitis K21.0 Active 414713719 Problem Polysubstance (including opioids) dependence with physiol dependence F19.20 Active 19359594 Problem History of esophageal cancer Z85.01 Active 195975727 Problem Seasonal allergies J30.2 Active 258100488 Problem Pre-diabetes R73.03 Active 382248111 Problem GERD (gastroesophageal reflux disease) K21.9 Active 403819740 Problem Borderline personality disorder F60.3 Active 65936491 Problem Pure hypercholesterolemia E78.00 Active 521491678 Problem Nephrolithiasis N20.0 Active 36176193 Problem STATE HEP A (ADULT) DX V05.3 Active 307251677 Problem Bipolar 1 disorder, depressed, moderate F31.32 Active 03935562 Problem Anxiety F41.9 Active 20415241 Problem Vitamin D insufficiency E55.9 Active 303882394 Problem Essential hypertension I10 Active 36052364 Problem Elevated serum creatinine R79.89 Active 177305172 Problem Acquired hypothyroidism E03.9 Active 155420029 ALLERGIES No Information ENCOUNTERS Encounter Location Date Diagnosis [facility] [id number] [address] Nov, [facility] [address] [address] Oct, [facility] [id number] [id number] Oct, [facility] [id number] [id number] Sep, Encounter for dental examination Z01.20 [facility] [id number] [place] [address] 87920- 7612 Sep, Acute oral pain K13.79 [place] [id number] [place] [address] 92809- 3558 Sep, Bipolar 1 disorder, depressed, moderate F31.32 [place] [address] 98098- 0005 Sep, Bipolar 1 disorder, depressed, moderate F31.32 [place] [address] 84737- 0004 Sep, Bipolar 1 disorder, depressed, moderate F31.32 [place] [address] 49858- 4305 Sep, Essential hypertension I10 ; Acquired hypothyroidism E03.9 ; Anxiety F41.9 ; Chronic nausea R11.0 and Irritant contact dermatitis due to plants, except food L24.7 [place] [address] 80643- 8796 Aug, Bipolar 1 disorder, depressed, moderate F31.32 [place] [address] 54256- 3588 Aug, Bipolar 1 disorder, depressed, moderate F31.32 [place] [address] 40491- 4563 Aug, Bipolar 1 disorder, depressed, moderate F31.32 [place] [id number] [place] [address] 26055- 7021 July, Candidal dermatitis B37.2 [place] [address] 74024- 0638 July, Acquired hypothyroidism E03.9 [place] [address] 23922- 8885 July, Bipolar 1 disorder, depressed, moderate F31.32 [facility] [id number] [place] [address] 31718 -5486 July, Seasonal allergies J30.2 [facility] [address] 23778- 4252 July, Bipolar 1 disorder, depressed, moderate F31.32 [place] [id number] [place] [address] 28203- 0522 Jun, Pre-diabetes R73.03 [place] [address] 218407- 6966 Jun, Bipolar 1 disorder, depressed, moderate F31.32 ; Anxiety F41.9 ; Borderline personality disorder F60.3 ; Polysubstance (including opioids ) dependence with physiol dependence F19.20 and Other specified abnormal findings of blood chemistry R79.89 [place] [id number] [place] [address] 63379- 4079 Jun, Bipolar 1 disorder, depressed, moderate F31.32 [place] [id number] [place] [address] 78846- 7659 May, Bipolar 1 disorder, depressed, moderate F31.32 [place] [id number] [place] [address] 96365- 1178 May, Bipolar 1 disorder, depressed, moderate F31.32 [place] [id number] [place] [address] 21807- 4263 May, [place] [id number] [place] [address] 55862- 6870 May, [place] [id number] [place] [address] 73534- 5334 May, Bipolar 1 disorder, depressed, moderate F31.32 [place] [id number] [place] [address] 24235- 5872 May, Bipolar 1 disorder, depressed, moderate F31.32 [place] [address] 92310- 625 May, Other specified abnormal findings of blood chemistry R79.89 [place] [id number] 814 May, Essential hypertension I10 ; Acquired hypothyroidism E03.9 ; Gastroesophageal reflux disease with esophagitis K21.0 ; Hair loss L65.9 ; Hypokalemia, gastrointestinal losses E87.6 ; Pre-diabetes R73.03 ; Candidal dermatitis B37.2 and Pure hypercholesterolemia E78.00 [place] [address] [id number]- 582 Apr, Bipolar 1 disorder, depressed, moderate F31.32 [place] [address]- 063 Apr, Bipolar 1 disorder, depressed, moderate F31.[address] 17771- 429 Apr, Bipolar 1 disorder, depressed, moderate F31.32 and Anxiety F41.9 [facility] [address] 6[address]16 -3779 Mar, Encounter for immunization Z23 ; Fall, initial encounter W19.XXXA ; Rib pain on left side R07.81 and Left hip pain M25.[address] 51536- 8060 Mar, Bipolar 1 disorder, depressed, moderate F31.32 and Anxiety F41.[address] 15336- 0969 Mar, Bipolar 1 disorder, depressed, moderate F31.32 ; Anxiety F41.9 ; Borderline personality disorder F60.3 and Polysubstance (including opioids) dependence with physiol dependence F19.[address] 69535- 2637 Mar, Bipolar 1 disorder, depressed, moderate F31.32 and Anxiety F41.9 [facility] [address] [place] [address] 71271 -0313 Feb, Irritant contact dermatitis, unspecified trigger L24.9 [facility] [id number] [place] [address] 63716- 8949 Feb, [facility] [id number] [place] [address] 95672- 2006 Feb, [facility] [id number] [place] [address] 34354- 2723 Feb, Bipolar 1 disorder, depressed, moderate F31.32 and Anxiety F41.9 [facility] [id number] [place] [address] 764037- 9923 Feb, Acute non-recurrent maxillary sinusitis J01.00 [facility] [id number] [place] [address] 31715- 4651 Feb, [facility] [id number] [place] [address] 55038- 2283 Feb, Bipolar 1 disorder, depressed, moderate F31.32 [facility] [id number] [place] [address] 93390- 7599 Jan, [facility] [id number] [place] [address] 49708- 3034 Jan, Bipolar 1 disorder, depressed, moderate F31.32 ; Anxiety F41.9 ; Borderline personality disorder F60.3 and Polysubstance (including opioids) dependence with physiol dependence F19.20 [facility] [address] [place] [address] 59650- 5833 27 Jan, 2017 Bipolar 1 disorder, depressed, moderate F31.32 and Anxiety F41.9 [facility] [id number] [place] [address] 06471- 3801 Jan, Bipolar 1 disorder, depressed, moderate F31.32 ; Anxiety F41.9 ; Borderline personality disorder F60.3 and Polysubstance (including opioids) dependence with physiol dependence F19.20 [place] [id number] [place] [address] 10661- 0422 Jan, Bipolar 1 disorder, depressed, moderate F31.32 and Anxiety F41.9 [place] [address] 27292- 0402 Dec, Hypokalemia, gastrointestinal losses E87.6 ; GERD ( gastroesophageal reflux disease) K21.9 and Bipolar 1 disorder, depressed, moderate F31.32 [place] [address] 18831- 8997 Dec, Bipolar 1 disorder, depressed, moderate F31.32 and Anxiety F41.9 [facility] [address] 81894 -0715 Dec, [place] [address] 96066- 6624 Dec, [facility] [address] 45450 -7795 Dec, Fall (on) (from) other stairs and steps, initial encounter W10.8XXA ; Laceration of left lower extremity, initial encounter S81.812A ; Contusion of right knee, initial encounter S80.01XA and Contusion of right shoulder, initial encounter S40.011[address] [id number] [place] [address] 41535- 3078 Dec, Bipolar 1 disorder, depressed, moderate F31.32 ; Anxiety F41.9 ; Borderline personality disorder F60.3 and Polysubstance (including opioids) dependence with physiol dependence F19.[address] 83897- 0460 Dec, Bipolar 1 disorder, depressed, moderate F31.32 and Anxiety F41.9 [place] [id number] [place] [address] 75303- 3259 Dec, [place] [address] [place] [address] 05 Dec, 2016 Hospital discharge follow-up Z09 ; Nephrolithiasis N20.0 ; Essential hypertension I10 ; Gastroesophageal reflux disease with esophagitis K21.0 and Anxiety F41.9 [facility] [id number] [place] [address] 16637- 1936 28 Nov, 2016 [facility] [address] 45361 -4865 24 Nov, 2016 Dysuria R30.0 and Acute cystitis with hematuria N30.01 [facility] [address] 62635 -4525 24 Nov, 2016 [facility] [address] 41251- 0326 19 Nov, 2016 [place] [address] 80416- 5042 19 Nov, 2016 Gastroesophageal reflux disease with esophagitis K21.0 ; Hypercholesteremia E78.00 and Acquired hypothyroidism E03.9 [facility] [address] 63721 -5886 18 Nov, 2016 Left wrist pain M25.532 and Contusion of left wrist, initial encounter S60.212A [facility] [id number] [place] [address] 67416- 0710 18 Nov, 2016 Bipolar 1 disorder, depressed, moderate F31.32 ; Anxiety F41.9 ; Borderline personality disorder F60.3 and Polysubstance (including opioids) dependence with physiol dependence F19.20 [facility] [id number] [place] [address] 79015 -9216 15 Nov, 2016 Abdominal pain R10.9 and GERD (gastroesophageal reflux disease) K21.9 [facility] [id number] [place] [address] 72656- 4935 12 Nov, 2016 Hypokalemia, gastrointestinal losses E87.6 [place] [address] 68292- 1357 Nov, Dehydration E86.0 ; Hypokalemia, gastrointestinal losses E87.6 and Vaginal candidiasis B37.3 [place]3371- 6144 08 Nov, 2016 Abnormal weight loss R63.4 ; Diarrhea, unspecified R19.7 ; Vomiting, unspecified R11.10 ; Generalized abdominal pain R10.84 and Decreased breath sounds R06.[address] 66581- 2966 Oct, Bipolar 1 disorder, depressed, moderate F31.32 and Anxiety F41.[address] 800398- 4420 Sep, Bipolar 1 disorder, depressed, moderate F31.32 ; Anxiety F41.9 ; Borderline personality disorder F60.3 and Polysubstance (including opioids) dependence with physiol dependence F19.[address] 51146- 7984 Sep, Bipolar 1 disorder, depressed, moderate F31.32 and Anxiety F41.[address] 83733- 7156 Sep, Bipolar 1 disorder, depressed, moderate F31.[address] 48455- 9067 Sep, Bipolar 1 disorder, depressed, moderate F31.32 and Anxiety F41.9 [facility] [address] [place] [address] 13170 -5873 Sep, Pain of toe of right foot M79.[address] 27147- 7680 Sep, [facility] [address] [place] [address] 08598 -4032 Sep, Cellulitis of right ankle L03.[address] [place] [address]- 9829 Sep, Bipolar 1 disorder, depressed, moderate F31.32 and Anxiety F41.9 [place] [address] 90703- 2220 Sep, [facility] [address] 58048- 1429 Sep, [place] [address] 72371- 4801 Sep, Bipolar 1 disorder, depressed, moderate F31.32 and Anxiety F41.9 [place] [address] 65197- 8776 Sep, Accidental spider bite T63.301A [place] [address] 13224- 4561 Aug, Bipolar 1 disorder, depressed, moderate F31.32 ; Anxiety F41.9 ; Borderline personality disorder F60.3 and Polysubstance (including opioids) dependence with physiol dependence F19.20 [place] [address] 82213- 3731 Aug, [place] [address] 46391- 1467 Aug, Bipolar 1 disorder, depressed, moderate F31.32 and Anxiety F41.9 [place] [address] 20743- 3679 Aug, Pre-diabetes R73.03 ; Acute seasonal allergic rhinitis due to pollen J30.1 ; Hypercholesteremia E78.00 and Nausea R11.0 [place] [address] 00079- 3180 Aug, [place] [address] 14579- 0866 Aug, Bipolar 1 disorder, depressed, moderate F31.32 and Anxiety F41.9 [place] [id number] [place] [address] 65825- 1345 08 Aug, 2016 [facility] [address] 30695- 3011 Aug, [place] [address] 13253- 4851 Aug, [place] [address] 60757- 8232 Aug, Bipolar 1 disorder, depressed, moderate F31.32 and Anxiety F41.[address] 00741- 8254 Aug, [facility] [address] 05661 -9753 Aug, Insect bite, initial encounter W57.XXXA and Cellulitis of left lower leg L03.[address] 50795- 1521 Aug, Bipolar 1 disorder, depressed, moderate F31.32 and Borderline personality disorder F60.[address] 41461- 7153 July, [address] 25291- 3734 July, [address] 89648- 3334 July, Encounter for routine adult health examination with abnormal findings Z00.01 ; History of esophageal cancer Z85.01 ; Bipolar 1 disorder, depressed, moderate F31.32 ; Anxiety F41.9 ; Acquired hypothyroidism E03.9 ; Essential hypertension I10 ; Gastroesophageal reflux disease with esophagitis K21.0 and Encounter for immunization Z23 [id number] [place] [address] 76247- 0413 July, Bipolar 1 disorder, depressed, moderate F31.32 and Anxiety F41.[address] [place] [address]- 2570 July, [facility] [id number] [place] [address] 424316- 7856 July, Bipolar 1 disorder, depressed, moderate F31.32 and Anxiety F41.9 [facility] [id number] [place] [address] 96364- 9816 July, Bipolar 1 disorder, depressed, moderate F31.32 [facility] [id number] [place] [address]772 July, Bipolar 1 disorder, depressed, moderate F31.32 and Anxiety F41.9 [place] [id number] [place] [address] 506318- 5490 Jun, Bipolar 1 disorder, depressed, moderate F31.32 [place] [id number] [place] [address] 59714- 6075 Jun, Bipolar 1 disorder, depressed, moderate F31.32 and Borderline personality disorder F60.3 [facility] [id number] [place] [address] 78464- 1315 Jun, Bipolar 1 disorder, depressed, moderate F31.32 [facility] [id number] [place] [address] 71389- 3893 Jun, Bipolar 1 disorder, depressed, moderate F31.32 [facility] [id number] [place] [address] 11864- 3123 May, Bipolar 1 disorder, depressed, moderate F31.32 and Anxiety F41.9 [facility] [id number] [place] [address] 21178- 6308 May, Bipolar 1 disorder, depressed, moderate F31.32 and Anxiety F41.9 [facility] [id number] [place] [address] 78225- 0606 May, Bipolar 1 disorder, depressed, moderate F31.32 and Anxiety F41.9 [facility] [id number] [address]- 7593 May, Bipolar 1 disorder, depressed, moderate F31.32 and Borderline personality disorder F60.3 [facility] [id number] [place] [address] 61354- 6875 14 May, 2016 [facility] [id number] [place] [address] 95610- 8358 May, Bipolar 1 disorder, depressed, moderate F31.32 and Anxiety F41.9 [place] [id number] [place] [address] 69145- 3038 May, Bipolar 1 disorder, depressed, moderate F31.32 and Anxiety F41.9 [place] [id number] [place] [address] 80372- 1879 May, [place] [id number] [place] [address] 80594- 8821 May, Bipolar 1 disorder, depressed, moderate F31.32 [place] [address] [place] [address] 83339- 1207 May, Bipolar 1 disorder, depressed, moderate F31.32 and Generalized anxiety disorder F41.1 [place] [address] [place] [address] 58049- 1576 Apr, Bipolar 1 disorder, depressed, moderate F31.32 and Anxiety F41.9 [place] [address] [place] [address] 39432- 7321 Apr, [place] [address] [place] [address] 56842- 2872 Apr, Bipolar 1 disorder, depressed, moderate F31.32 and Anxiety F41.9 [place] [address] [place] [address] 69267- 7514 09 Apr, 2016 Bipolar 1 disorder, depressed, moderate F31.32 and Anxiety F41.9 [place] [address] [place] [address] 41208- 8974 Apr, Bipolar affective disorder, depressed, severe F31.4 and Generalized anxiety disorder F41.1 [facility] [id number] [place] [address] 08149- 1003 Mar, Bipolar 1 disorder, depressed, moderate F31.32 and Anxiety F41.9 [facility] [id number] [place] [address] 31771- 0174 Mar, Bipolar 1 disorder, depressed, moderate F31.32 and Anxiety F41.9 [facility] [id number] [place] [address] 17700- 5276 Mar, Bipolar 1 disorder, mixed, moderate F31.62 [place] [id number] [place] [address] 06780- 0129 Mar, [facility] [id number] [place] [address] 80561- 6184 Mar, Bipolar 1 disorder, mixed, moderate F31.62 ; Generalized anxiety disorder F41.1 and Other detention (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 Z79.899 [facility] [address] [place] [address] 20514- 2296 Feb, Bipolar 1 disorder, depressed, moderate F31.32 and Anxiety F41.9 [facility] [address] [place] [address] 05753- 6471 Feb, Bipolar 1 disorder, depressed, moderate F31.32 and Other detention (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 Z79.899 [facility] [address] [place] [address] 46314- 3129 Feb, [facility] [id number] [place] [address] 93396- 4620 Feb, Bipolar 1 disorder, depressed, moderate F31.32 and Anxiety F41.9 [facility] [address] [place] [address] 52737- 3807 Feb, Bipolar 1 disorder, depressed, moderate F31.32 and Other detention (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 Z79.899 [facility] [id number]- 3642 Feb, Bipolar 1 disorder, depressed, moderate F31.32 and Anxiety F41.9 [facility] [address]- 4836 Dec, Bipolar 1 disorder, depressed, moderate F31.32 and Anxiety F41.9 [facility] [address]- 1366 Oct, [facility] [address] [place] [address] 30650886- 4224 Oct, [facility] [address] [place] [address] 194509- 4036 May, [facility] [id number] [place] [address] 136003- 1814 May, [facility] [address] [place] [address] 43346- 3814 Mar, [facility] [address] [place] [address] 83569- 9870 Mar, IMMUNIZATIONS No Known Immunizations SOCIAL HISTORY Never Assessed REASON FOR VISIT Follow-up Depression PLAN OF CARE Activity Details Follow Up 4 Weeks Reason: Follow-up VITAL SIGNS MEDICATIONS Unknown Medications RESULTS No Results PROCEDURES Procedure Date Ordered Result Body Site [facility] VISIT MENTAL HEALTH ESTAB PT July 06, 2017 Psychotherapy, patient &/family, 45 minutes, established patient July 06, 2017 INSTRUCTIONS MEDICATIONS ADMINISTERED No Known Medications [...] Cancer Head and Neck 2004 Hospitalization History [facility] Psychiatric Admission 2016
--- OUTSIDE RECORDS SUMMARY | 2017-11-25 12:34 | XMS REPORT ---
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 Name Role Phone MICHELLEDARCI Unavailable PROBLEMS Type Condition ICD9-CM Code [id number] Code Onset Dates Condition Status SNOMED Code Problem Gastroesophageal reflux disease with esophagitis K21.0 Active 606664405 Problem Polysubstance (including opioids) dependence with physiol dependence F19.20 Active 99056778 Problem History of esophageal cancer Z85.01 Active 639801351 Problem Seasonal allergies J30.2 Active 452805552 Problem Pre-diabetes R73.03 Active 597399039 Problem GERD (gastroesophageal reflux disease) K21.9 Active 310250046 Problem Borderline personality disorder F60.3 Active 22216211 Problem Pure hypercholesterolemia E78.00 Active 645988655 Problem Nephrolithiasis N20.0 Active 87144117 Problem STATE HEP A (ADULT) DX V05.3 Active 289131127 Problem Bipolar 1 disorder, depressed, moderate F31.32 Active 97810296 Problem Anxiety F41.9 Active 83312680 Problem Vitamin D insufficiency E55.9 Active 889297798 Problem Essential hypertension I10 Active 39021441 Problem Elevated serum creatinine R79.89 Active 047713830 Problem Acquired hypothyroidism E03.9 Active 943834281 ALLERGIES Substance Reaction Event Type Date Status Adhesive Tape Rash Drug Allergy Jun, Active Zolpidem Tartrate Client OVERDOSE Drug Allergy Jun, Active Penicillamine Hives Drug Allergy Jun, Active Codeine Sulfate Nausea and Vomitting Drug Allergy Jun, Active ENCOUNTERS Encounter Location Date Diagnosis [facility] [address] [facility] [id number] [address] Nov, [facility] [address] [facility] [id number] [address] Oct, [facility] [id number] [place] [address] 80182- 4376 Oct, [facility] [address] [place] [id number] [place] [address] [id number] Sep, Encounter for dental examination Z01.20 [facility] [address] [place] [id number] [place] [address] 52164- 9972 Sep, Acute oral pain K13.79 [facility] [address] 6[address]65- 0156 Sep, Bipolar 1 disorder, depressed, moderate F31.32 [place] [address] 14495- 1327 Sep, Bipolar 1 disorder, depressed, moderate F31.32 [place] [address] 59603- 3127 Sep, Bipolar 1 disorder, depressed, moderate F31.32 [place] [address] 47531- 4783 Sep, Essential hypertension I10 ; Acquired hypothyroidism E03.9 ; Anxiety F41.9 ; Chronic nausea R11.0 and Irritant contact dermatitis due to plants, except food L24.7 [place] [address] [place] [id number] [place] [address] 77208- 1656 Aug, Bipolar 1 disorder, depressed, moderate F31.32 [place] [address] [place] [id number] [place] [address] 09479- 2903 Aug, Bipolar 1 disorder, depressed, moderate F31.32 [place] [address] [place] [id number] [place] [address] 85798- 4862 Aug, Bipolar 1 disorder, depressed, moderate F31.32 [place] [address] [place] [id number] [place] [address] 53921- 5383 July, Candidal dermatitis B37.2 [place] [address] 88468- 9208 July, Acquired hypothyroidism E03.9 [facility] [address] [address] [id number] [place] [address] 96551- 3365 July, Bipolar 1 disorder, depressed, moderate F31.32 [facility] [id number] [place] [address] 69837 -3848 July, Seasonal allergies J30.2 [facility] [address] 29333- 3027 July, Bipolar 1 disorder, depressed, moderate F31.32 [facility] [address] 58544- 7349 Jun, Pre-diabetes R73.03 [place] [address] 28037- 2644 Jun, Bipolar 1 disorder, depressed, moderate F31.32 ; Anxiety F41.9 ; Borderline personality disorder F60.3 ; Polysubstance (including opioids ) dependence with physiol dependence F19.20 and Other specified abnormal findings of blood chemistry R79.89 [facility] [address] [address] [id number] [place] [address] 85461- 0576 Jun, Bipolar 1 disorder, depressed, moderate F31.32 [place] [address] [place] [id number] [place] [address] 32509- 3493 May, Bipolar 1 disorder, depressed, moderate F31.32 [facility] [address] [place] [address] [id number] [place] [address] 96341- 5200 May, Bipolar 1 disorder, depressed, moderate F31.32 [facility] [address] [id number] [place] [address] 26094- 7182 May, [place] [address] 62600- 4703 May, [place] [address] [place] [id number] [place] [address] 27271- 8278 May, Bipolar 1 disorder, depressed, moderate F31.32 [place] [address] [id number] [place] [address] 30071- 7940 13 May, 2017 Bipolar 1 disorder, depressed, moderate F31.32 [facility] [address] 43216- 7866 May, Other specified abnormal findings of blood chemistry R79.89 [place] [address] 43831- 6338 May, Essential hypertension I10 ; Acquired hypothyroidism E03.9 ; Gastroesophageal reflux disease with esophagitis K21.0 ; Hair loss L65.9 ; Hypokalemia, gastrointestinal losses E87.6 ; Pre-diabetes R73.03 ; Candidal dermatitis B37.2 and Pure hypercholesterolemia E78.00 [place] [address] 67307- 2776 Apr, Bipolar 1 disorder, depressed, moderate F31.32 [place] [address] 82522- 1780 Apr, Bipolar 1 disorder, depressed, moderate F31.32 [place] [address] 24469- 6072 Apr, Bipolar 1 disorder, depressed, moderate F31.32 and Anxiety F41.9 [facility] [address] 02593 -9535 Mar, Encounter for immunization Z23 ; Fall, initial encounter W19.XXXA ; Rib pain on left side R07.81 and Left hip pain M25.552 [place] [address] [id number] [place] [address] 30930- 2037 Mar, Bipolar 1 disorder, depressed, moderate F31.32 and Anxiety F41.9 [place] [address] 60096- 2862 Mar, Bipolar 1 disorder, depressed, moderate F31.32 ; Anxiety F41.9 ; Borderline personality disorder F60.3 and Polysubstance (including opioids) dependence with physiol dependence F19.20 [facility] [address] [address] [id number] [place] [address] 07850- 5620 Mar, Bipolar 1 disorder, depressed, moderate F31.32 and Anxiety F41.9 [facility] [id number] [place] [address] 07289 -8423 Feb, Irritant contact dermatitis, unspecified trigger L24.9 [facility] [address] 36487- 0526 Feb, [facility] [address] 13240- 0419 Feb, [facility] [address] 21996- 0171 Feb, Bipolar 1 disorder, depressed, moderate F31.32 and Anxiety F41.9 [facility] [address] 66630- 1332 Feb, Acute non-recurrent maxillary sinusitis J01.00 [facility] [id number] [place] [address] 61849- 1958 Feb, [facility] [address] 12362- 1677 Feb, Bipolar 1 disorder, depressed, moderate F31.32 [facility] [id number] [place] [address] 89535- 8109 Jan, [facility] [id number] [place] [address] 14611- 8798 Jan, Bipolar 1 disorder, depressed, moderate F31.32 ; Anxiety F41.9 ; Borderline personality disorder F60.3 and Polysubstance (including opioids) dependence with physiol dependence F19.20 [facility] [id number] [place] [address] 43288- 5392 Jan, Bipolar 1 disorder, depressed, moderate F31.32 and Anxiety F41.9 [facility] [address] [place] [address]- 3957 Jan, Bipolar 1 disorder, depressed, moderate F31.32 ; Anxiety F41.9 ; Borderline personality disorder F60.3 and Polysubstance (including opioids) dependence with physiol dependence F19.20 [place] [id number] [place] [address] 53875- 463 Jan, Bipolar 1 disorder, depressed, moderate F31.32 and Anxiety F41.9 [place] [id number]- [address]88 Dec, Hypokalemia, gastrointestinal losses E87.6 ; GERD ( gastroesophageal reflux disease) K21.9 and Bipolar 1 disorder, depressed, moderate F31.[address] [address] 8528 Dec, Bipolar 1 disorder, depressed, moderate F31.32 and Anxiety F41.9 [facility] [address] 6[address] -8956 Dec, [address] 29097- 7437 Dec, [facility] [address] 0[address] -0915 Dec, Fall (on) (from) other stairs and steps, initial encounter W10.8XXA ; Laceration of left lower extremity, initial encounter S81.812A ; Contusion of right knee, initial encounter S80.01XA and Contusion of right shoulder, initial encounter S40.011A [place] [id number] [place] [address] 22339- 2704 Dec, Bipolar 1 disorder, depressed, moderate F31.32 ; Anxiety F41.9 ; Borderline personality disorder F60.3 and Polysubstance (including opioids) dependence with physiol dependence F19.20 [place] [id number] [place] [address] 84240- 3944 Dec, Bipolar 1 disorder, depressed, moderate F31.32 and Anxiety F41.9 [place] [address] [id number] [place] [id number] Dec, [place] [address] 285 Dec, Hospital discharge follow-up Z09 ; Nephrolithiasis N20.0 ; Essential hypertension I10 ; Gastroesophageal reflux disease with esophagitis K21.0 and Anxiety F41.9 [place] [address] [place] [id number]- 7710 28 Nov, 2016 [facility] [address] 24 Nov, 2016 Dysuria R30.0 and Acute cystitis with hematuria N30.01 [facility] [place] [address] 48832 -1492 Nov, [place] [address] 89611- 1943 Nov, [place] [address] 76790- 4402 Nov, Gastroesophageal reflux disease with esophagitis K21.0 ; Hypercholesteremia E78.00 and Acquired hypothyroidism E03.9 [facility] [place] [address] 35662 -6638 18 Nov, 2016 Left wrist pain M25.532 and Contusion of left wrist, initial encounter S60.212A [place] [address] [id number] [place] [address] 74080- 0041 18 Nov, 2016 Bipolar 1 disorder, depressed, moderate F31.32 ; Anxiety F41.9 ; Borderline personality disorder F60.3 and Polysubstance (including opioids) dependence with physiol dependence F19.20 [facility] [place] [address] [address] [id number] [place] [address] 43874 -4319 15 Nov, 2016 Abdominal pain R10.9 and GERD (gastroesophageal reflux disease) K21.9 [id number] [address]- [address] 12 Nov, 2016 Hypokalemia, gastrointestinal losses E87.6 [place] [address] 38186- 8620 11 Nov, 2016 Dehydration E86.0 ; Hypokalemia, gastrointestinal losses E87.6 and Vaginal candidiasis B37.[address] 14502- 4375 08 Nov, 2016 Abnormal weight loss R63.4 ; Diarrhea, unspecified R19.7 ; Vomiting, unspecified R11.10 ; Generalized abdominal pain R10.84 and Decreased breath sounds R06.[address] 45318- 576 Oct, Bipolar 1 disorder, depressed, moderate F31.32 and Anxiety F41.[address] 71478- 1006 Sep, Bipolar 1 disorder, depressed, moderate F31.32 ; Anxiety F41.9 ; Borderline personality disorder F60.3 and Polysubstance (including opioids) dependence with physiol dependence F19.20 [place] [address] 02172- 4825 Sep, Bipolar 1 disorder, depressed, moderate F31.32 and Anxiety F41.[address] 82760- 4712 Sep, Bipolar 1 disorder, depressed, moderate F31.[address] 57492- 0699 Sep, Bipolar 1 disorder, depressed, moderate F31.32 and Anxiety F41.9 [facility] [address] 0[address]24 -6305 Sep, Pain of toe of right foot M79.674 [place] [address] 28736- 1471 Sep, [facility] [id number] [place] [address] 20109 -1257 Sep, Cellulitis of right ankle L03.115 [facility] [address] [id number] [place] [address] 85470- 1267 Sep, Bipolar 1 disorder, depressed, moderate F31.32 and Anxiety F41.9 [facility] [address] 77274- 2204 Sep, [place] [address] 66428- 0830 Sep, [facility] [address] 18986- 6165 Sep, Bipolar 1 disorder, depressed, moderate F31.32 and Anxiety F41.9 [place] [address] 91535- 9374 Sep, Accidental spider bite T63.301A [place] [address] 39348- 2457 Aug, Bipolar 1 disorder, depressed, moderate F31.32 ; Anxiety F41.9 ; Borderline personality disorder F60.3 and Polysubstance (including opioids) dependence with physiol dependence F19.20 [place] [address] [id number] [place] [address] 59061- 4393 Aug, [place] [address] 91575- 6665 Aug, Bipolar 1 disorder, depressed, moderate F31.32 and Anxiety F41.9 [place] [address] 92157- 6914 Aug, Pre-diabetes R73.03 ; Acute seasonal allergic rhinitis due to pollen J30.1 ; Hypercholesteremia E78.00 and Nausea R11.0 [place] [address] 11432- 6352 Aug, [place] [address] [place] [address] 46275- 5657 Aug, Bipolar 1 disorder, depressed, moderate F31.32 and Anxiety F41.9 [place] [address] [place] [id number] [place] [address] 44421- 2544 Aug, [place] [address] [place] [id number] [place] [address] 99349- 6431 Aug, [place] [address] 94800- 3382 Aug, [place] [address] 16442- 8351 Aug, Bipolar 1 disorder, depressed, moderate F31.32 and Anxiety F41.9 [place] [address] [place] [id number] [place] [address] 06014- 8284 Aug, [facility] [address] 11539 -9206 Aug, Insect bite, initial encounter W57.XXXA and Cellulitis of left lower leg L03.116 [place] [address] [place] [id number] [place] [address] 17139- 1943 Aug, Bipolar 1 disorder, depressed, moderate F31.32 and Borderline personality disorder F60.3 [place] [address] [place] [id number] [place] [address] 39587- 2670 July, [place] [address] [place] [id number] [place] [address] 00269- 2149 July, [place] [address] [place] [id number] [place] [address] 41150- 5482 July, Encounter for routine adult health examination with abnormal findings Z00.01 ; History of esophageal cancer Z85.01 ; Bipolar 1 disorder, depressed, moderate F31.32 ; Anxiety F41.9 ; Acquired hypothyroidism E03.9 ; Essential hypertension I10 ; Gastroesophageal reflux disease with esophagitis K21.0 and Encounter for immunization Z23 [place] [address] [place] [id number] [place] [address] 57800- 1490 July, Bipolar 1 disorder, depressed, moderate F31.32 and Anxiety F41.9 [place] [address] [place] [id number] [place] [address] 36528- 6555 July, [place] [address] [place] [id number] [place] [address] 1222 July, Bipolar 1 disorder, depressed, moderate F31.32 and Anxiety F41.9 [place] [address] [place] [id number] [place] [address] 78980- 8388 July, Bipolar 1 disorder, depressed, moderate F31.32 [place] [address] [place] [id number] [place] [address] 621958- 4772 July, Bipolar 1 disorder, depressed, moderate F31.32 and Anxiety F41.9 [place] [address] [place] [id number] [place] [address] 40267- 0924 Jun, Bipolar 1 disorder, depressed, moderate F31.32 [place] [address] [place] [id number] [place] [address] 47466- 9951 Jun, Bipolar 1 disorder, depressed, moderate F31.32 and Borderline personality disorder F60.3 [place] [address] [place] [id number] [place] [address] 33717- 3780 Jun, Bipolar 1 disorder, depressed, moderate F31.32 [place] [address] [place] [id number] [place] [address] 39739- 2083 Jun, Bipolar 1 disorder, depressed, moderate F31.32 [place] [address] [place] [id number] [place] [address] 91230- 1199 May, Bipolar 1 disorder, depressed, moderate F31.32 and Anxiety F41.9 [place] [address] [place] [id number] [place] [address] 89767- 6494 May, Bipolar 1 disorder, depressed, moderate F31.32 and Anxiety F41.9 [place] [address] [place] [id number] [place] [address] 22785- 5836 May, Bipolar 1 disorder, depressed, moderate F31.32 and Anxiety F41.9 [place] [address] [place] [id number] [place] [address]- 5447 May, Bipolar 1 disorder, depressed, moderate F31.32 and Borderline personality disorder F60.3 [place] [address] [place] [id number] [place] [address] 02741- 4946 May, [place] [address] [place] [id number] [place] [address] 48333- 1038 May, Bipolar 1 disorder, depressed, moderate F31.32 and Anxiety F41.9 [place] [address] [place] [id number] [place] [address] 92276- 0243 May, Bipolar 1 disorder, depressed, moderate F31.32 and Anxiety F41.9 [place] [address] [place] [id number] [place] [address] 58313- 8120 May, [place] [address] [place] [id number] [place] [address] 08033- 3955 May, Bipolar 1 disorder, depressed, moderate F31.32 [place] [address] [place] [id number] [place] [address] 44616- 0913 May, Bipolar 1 disorder, depressed, moderate F31.32 and Generalized anxiety disorder F41.1 [place] [address] [place] [address] 39107- 0230 Apr, Bipolar 1 disorder, depressed, moderate F31.32 and Anxiety F41.9 [place] [address] [place] [id number] [place] [address] 40468- 4017 Apr, [place] [address] [place] [id number] [place] [address] 20688- 0163 Apr, Bipolar 1 disorder, depressed, moderate F31.32 and Anxiety F41.9 [place] [address] [place] [id number] [place] [address] 04916- 5827 09 Apr, 2016 Bipolar 1 disorder, depressed, moderate F31.32 and Anxiety F41.9 [place] [address] [place] [id number] [place] [address] 63630- 5687 Apr, Bipolar affective disorder, depressed, severe F31.4 and Generalized anxiety disorder F41.1 [place] [address] [place] [id number] [place] [address] 98560- 8597 Mar, Bipolar 1 disorder, depressed, moderate F31.32 and Anxiety F41.9 [place] [address] [place] [id number] [place] [address] 22813- 5511 Mar, Bipolar 1 disorder, depressed, moderate F31.32 and Anxiety F41.9 [place] [address] [place] [id number] [place] [address] 02139- 0306 Mar, Bipolar 1 disorder, mixed, moderate F31.62 [place] [address] [place] [id number] [place] [address] 55117- 6085 Mar, [place] [address] [place] [id number] [place] [address] 09824- 0717 Mar, Bipolar 1 disorder, mixed, moderate F31.62 ; Generalized anxiety disorder F41.1 and Other roasterman (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 Z79.899 [place] [address] [place] [address] 07539- 4667 Feb, Bipolar 1 disorder, depressed, moderate F31.32 and Anxiety F41.9 [place] [address] [place] [id number] [place] [address] 80548- 0726 Feb, Bipolar 1 disorder, depressed, moderate F31.32 and Other roasterman (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 Z79.899 [place] [address] [place] [id number] [place] [address] 53140- 9024 Feb, [place] [address] [place] [id number] [place] [address] 81536- 7704 Feb, Bipolar 1 disorder, depressed, moderate F31.32 and Anxiety F41.9 [facility] [address] [address]- 3885 Feb, Bipolar 1 disorder, depressed, moderate F31.32 and Other roasterman (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 Z79.899 [facility] [address] [place] [address] 31858- 0206 Feb, Bipolar 1 disorder, depressed, moderate F31.32 and Anxiety F41.9 [facility] [address] [place] [id number] [place] [address] 86511- 8775 Dec, Bipolar 1 disorder, depressed, moderate F31.32 and Anxiety F41.9 [place] [address] [place] [id number] [place] [address] 15571- 7616 Oct, [facility] [address] [place] [id number] [place] [address] 27923- 9707 Oct, [facility] [address] [place] [id number] [place] [address] 54345- 7368 May, [facility] [address] [place] [id number] [place] [address] 25228- 6292 May, [place] [address] [place] [id number] [place] [address] 39229- 2028 Mar, [place] [address] [place] [id number] [place] [address] 17178- 6426 Mar, IMMUNIZATIONS No Known Immunizations SOCIAL HISTORY Never Assessed REASON FOR VISIT f/u GeenaAL PLAN OF CARE Activity Details Follow Up 3 Months Reason: f/u VITAL SIGNS Height 67.0 in 2017-06-26 Weight 175 lbs 2017-06-26 Heart Rate 100 bpm 2017-06-26 Respiratory Rate 20 2017-06-26 BMI 27.41 kg/m2 2017-06-26 Blood pressure systolic 122 mmHg 2017-06-26 Blood pressure diastolic 82 mmHg 2017-06-26 MEDICATIONS Medication Instructions Dosage Frequency Start Date End Date Duration Status Vitamin D3 400 UNIT Orally Once a day 1 tablet 24h May, Sep, 30 day(s) Active Gabapentin 300 MG Orally 4 times a day as needed 1 capsule Jan, 30 days Active Atorvastatin Calcium 20 mg Orally Once a day 1 tablet 24h Aug, Active Metformin HCl 500 mg Orally Twice a day one tablet daily with evening meal x 1 week then one tablet bid with meals 12h Active Potassium Chloride ER 10 MEQ Orally Once a day 1 tablet with food 24h 90 Active Pantoprazole Sodium 40 MG TAKE 1 TABLET BY MOUTH EVERY DAY 30 Active Pyridium 200 MG Orally Three times a day 1 tablet after meals 8h Not-Taking Lexapro 20 mg Orally Once a day 1 tablet 24h Mar, Active Amlodipine Besylate 10 MG TAKE 1 TABLET BY MOUTH EVERY DAY Active Lamotrigine 200 mg Orally Once a day 1 tablet 24h Active Latuda 40 mg Orally Once a day at supper 1 tablet with food Jan, Active Potassium Chloride ER 10 MEQ Orally Once a day 1 tablet with food 24h Nov, 90 days Active Omeprazole 40 MG Orally Once a day 1 capsule 24h 90 days Not-Taking Protonix 40 MG Orally Once a day 1 tablet 24h Nov, Active Levothyroxine Sodium 50 MCG Orally Once a day 1 tablet on an empty stomach in the morning 24h Active Diflucan 150 MG Orally one time 1 tablet Nov, 1 dose Not- Taking Ondansetron 8 MG Orally every 8 hrs 1 tablet on the tongue and allow to dissolve 8h Nov, 07 days Active Triamcinolone Acetonide 0.1 % Externally Twice a day 1 application to affected area 12h 5 Not-Taking RESULTS No Results PROCEDURES Procedure Date Ordered Result Body Site [facility] V[facility]IT ESTABLISHED PATIENT June 26, 2017 MACKENZIE, ROUTINE* June 26, 2017 LAB NOT BILLED BY [facility] June 26, 2017 INSTRUCTIONS MEDICATIONS ADMINISTERED No Known [...] Cancer Head and Neck 2004 Hospitalization History [facility] Admission 2016
--- OUTSIDE RECORDS SUMMARY | 2017-11-25 12:35 | XMS REPORT ---
Author Author MICHELLE DARCI [facility] Address [address] [place] [address] Care Team Providers Care Svp Operations Name Role Phone MICHELLE, DARCI Unavailable PROBLEMS Type Condition ICD9-CM Code [id number] Code Onset Dates Condition Status SNOMED Code Problem Gastroesophageal reflux disease with esophagitis K21.0 Active 397255600 Problem Polysubstance (including opioids) dependence with physiol dependence F19.20 Active 77425604 Problem History of esophageal cancer Z85.01 Active 107476254 Problem Seasonal allergies J30.2 Active 000147097 Problem Pre-diabetes R73.03 Active 685845566 Problem GERD (gastroesophageal reflux disease) K21.9 Active 456830126 Problem Borderline personality disorder F60.3 Active 45134148 Problem Pure hypercholesterolemia E78.00 Active 891207876 Problem Nephrolithiasis N20.0 Active 55236717 Problem STATE HEP A (ADULT) DX V05.3 Active 766705254 Problem Bipolar 1 disorder, depressed, moderate F31.32 Active 05075290 Problem Anxiety F41.9 Active 39817093 Problem Vitamin D insufficiency E55.9 Active 755100185 Problem Essential hypertension I10 Active 03075033 Problem Elevated serum creatinine R79.89 Active 845030336 Problem Acquired hypothyroidism E03.9 Active 890546936 ALLERGIES No Information ENCOUNTERS Encounter Location Date Diagnosis [facility] [id number] [address] Nov, [facility] [id number] [place] [address] 92999- 3098 Oct, [facility] [address], [place] [address] Oct, [facility] [id number] [id number] Sep, Encounter for dental examination Z01.20 [place] [id number] [place] [address] 53716- 6096 Sep, Acute oral pain K13.79 [place] [address] 33766- 2059 Sep, Bipolar 1 disorder, depressed, moderate F31.32 [place] [address] 481248- 7506 Sep, Bipolar 1 disorder, depressed, moderate F31.32 [place] [address] 77805- 2413 Sep, Bipolar 1 disorder, depressed, moderate F31.32 [place] [address] 17178- 3416 Sep, Essential hypertension I10 ; Acquired hypothyroidism E03.9 ; Anxiety F41.9 ; Chronic nausea R11.0 and Irritant contact dermatitis due to plants, except food L24.7 [place] [id number] [place] [address] 66442- 5678 Aug, Bipolar 1 disorder, depressed, moderate F31.32 [place] [id number] [place] [address] 09325- 9628 Aug, Bipolar 1 disorder, depressed, moderate F31.32 [place] [id number] [place] [address] 21608- 3537 Aug, Bipolar 1 disorder, depressed, moderate F31.32 [place] [id number] [place] [address] 97863- 4195 July, Candidal dermatitis B37.2 [place] [address] 87874- 3618 July, Acquired hypothyroidism E03.9 [place] [address] 36930- 5432 July, Bipolar 1 disorder, depressed, moderate F31.32 [facility] [address] [place] [address] 85152 -6795 July, Seasonal allergies J30.2 [facility] [id number] [place] [address] 38241- 4450 July, Bipolar 1 disorder, depressed, moderate F31.32 [place] [id number] [place] [address] 55315- 0565 Jun, Pre-diabetes R73.03 [place] [address] 16770- 1197 Jun, Bipolar 1 disorder, depressed, moderate F31.32 ; Anxiety F41.9 ; Borderline personality disorder F60.3 ; Polysubstance (including opioids ) dependence with physiol dependence F19.20 and Other specified abnormal findings of blood chemistry R79.89 [place] [place] [id number] [place] [address] 88472- 5623 Jun, Bipolar 1 disorder, depressed, moderate F31.32 [place] [id number] [place] [address] 08554- 0055 May, Bipolar 1 disorder, depressed, moderate F31.32 [place] [id number] [place] [address] 78557- 0198 May, Bipolar 1 disorder, depressed, moderate F31.32 [place] [id number] [place] [address] 16760- 3634 May, [place] [id number] [place] [address] 94725- 5615 May, [place] [id number] [place] [address] 35955- 1691 May, Bipolar 1 disorder, depressed, moderate F31.32 [place] [id number] [place] [address] 85129- 2492 May, Bipolar 1 disorder, depressed, moderate F31.32 [address] [address] [place] [address] May, Other specified abnormal findings of blood chemistry R79.[address] 3939 May, Essential hypertension I10 ; Acquired hypothyroidism E03.9 ; Gastroesophageal reflux disease with esophagitis K21.0 ; Hair loss L65.9 ; Hypokalemia, gastrointestinal losses E87.6 ; Pre-diabetes R73.03 ; Candidal dermatitis B37.2 and Pure hypercholesterolemia E78.[address] [address] 870 Apr, Bipolar 1 disorder, depressed, moderate F31.[address] 268 Apr, Bipolar 1 disorder, depressed, moderate F31.32 [place] [id number] 092 Apr, Bipolar 1 disorder, depressed, moderate F31.32 and Anxiety F41.9 [facility] [address] [place] [address] 90122 -5214 Mar, Encounter for immunization Z23 ; Fall, initial encounter W19.XXXA ; Rib pain on left side R07.81 and Left hip pain M25.[address] 68658- 6425 Mar, Bipolar 1 disorder, depressed, moderate F31.32 and Anxiety F41.9 [place] [address] 65579- 1465 Mar, Bipolar 1 disorder, depressed, moderate F31.32 ; Anxiety F41.9 ; Borderline personality disorder F60.3 and Polysubstance (including opioids) dependence with physiol dependence F19.[address] 64448- 7663 Mar, Bipolar 1 disorder, depressed, moderate F31.32 and Anxiety F41.9 [facility] [address] [place] [address] 18957 -9648 Feb, Irritant contact dermatitis, unspecified trigger L24.9 [facility] [id number] [place] [address] 46549- 5935 Feb, [facility] [id number] [place] [address] 87531- 0868 Feb, [facility] [id number] [place] [address] 98350- 4861 Feb, Bipolar 1 disorder, depressed, moderate F31.32 and Anxiety F41.9 [facility] [address] 148817- 0191 Feb, Acute non-recurrent maxillary sinusitis J01.00 [facility] [id number] [place] [address] 26347- 4036 Feb, [facility] [id number] [place] [address] 86062- 1093 Feb, Bipolar 1 disorder, depressed, moderate F31.32 [facility] [id number] [place] [address] 77681- 3395 Jan, [facility] [id number] [place] [address] 78938- 6864 Jan, Bipolar 1 disorder, depressed, moderate F31.32 ; Anxiety F41.9 ; Borderline personality disorder F60.3 and Polysubstance (including opioids) dependence with physiol dependence F19.20 [facility] [address] [place] [address] 62664- 8455 27 Jan, 2017 Bipolar 1 disorder, depressed, moderate F31.32 and Anxiety F41.9 [facility] [address] [place] [address] 34037- 5771 20 Jan, 2017 Bipolar 1 disorder, depressed, moderate F31.32 ; Anxiety F41.9 ; Borderline personality disorder F60.3 and Polysubstance (including opioids) dependence with physiol dependence F19.20 [place] [id number] [place] [address] 57681- 1064 Jan, Bipolar 1 disorder, depressed, moderate F31.32 and Anxiety F41.9 [place] [id number] [place] [address] 12277- 0092 Dec, Hypokalemia, gastrointestinal losses E87.6 ; GERD ( gastroesophageal reflux disease) K21.9 and Bipolar 1 disorder, depressed, moderate F31.32 [address] 79978- 6962 Dec, Bipolar 1 disorder, depressed, moderate F31.32 and Anxiety F41.9 [facility] [address] [address] 04226 -8663 Dec, [place] [place] [address] 03251- 2600 Dec, [facility] [address] 94885 -5236 Dec, Fall (on) (from) other stairs and steps, initial encounter W10.8XXA ; Laceration of left lower extremity, initial encounter S81.812A ; Contusion of right knee, initial encounter S80.01XA and Contusion of right shoulder, initial encounter S40.011[id number] [place] [address] 33826- 4993 Dec, Bipolar 1 disorder, depressed, moderate F31.32 ; Anxiety F41.9 ; Borderline personality disorder F60.3 and Polysubstance (including opioids) dependence with physiol dependence F19.20 [address] [place] [address] 08690- 8426 Dec, Bipolar 1 disorder, depressed, moderate F31.32 and Anxiety F41.9 [place] [id number] [place] [address] 24139- 4718 Dec, [address] [place] [address]- 6985 05 Dec, 2016 Hospital discharge follow-up Z09 ; Nephrolithiasis N20.0 ; Essential hypertension I10 ; Gastroesophageal reflux disease with esophagitis K21.0 and Anxiety F41.9 [facility] [address] 78381- 2924 28 Nov, 2016 [facility] [address] 09560 -7564 24 Nov, 2016 Dysuria R30.0 and Acute cystitis with hematuria N30.01 [facility] [address] 36718 -0456 24 Nov, 2016 [facility] [address] 48572- 9644 19 Nov, 2016 [facility] [address] 92934- 3254 19 Nov, 2016 Gastroesophageal reflux disease with esophagitis K21.0 ; Hypercholesteremia E78.00 and Acquired hypothyroidism E03.9 [facility] [address] 80584 -5262 18 Nov, 2016 Left wrist pain M25.532 and Contusion of left wrist, initial encounter S60.212A [facility] [address] 60032- 6141 18 Nov, 2016 Bipolar 1 disorder, depressed, moderate F31.32 ; Anxiety F41.9 ; Borderline personality disorder F60.3 and Polysubstance (including opioids) dependence with physiol dependence F19.20 [facility] [address] 05428 -0755 15 Nov, 2016 Abdominal pain R10.9 and GERD (gastroesophageal reflux disease) K21.9 [facility] [address] 02133- 7259 12 Nov, 2016 Hypokalemia, gastrointestinal losses E87.6 [facility] [address] 30247- 9181 Nov, Dehydration E86.0 ; Hypokalemia, gastrointestinal losses E87.6 and Vaginal candidiasis B37.3 [id number] [place] [address] 08 Nov, 2016 Abnormal weight loss R63.4 ; Diarrhea, unspecified R19.7 ; Vomiting, unspecified R11.10 ; Generalized abdominal pain R10.84 and Decreased breath sounds R06.[address] 19371- 1189 Oct, Bipolar 1 disorder, depressed, moderate F31.32 and Anxiety F41.9 [place]0125- 5107 Sep, Bipolar 1 disorder, depressed, moderate F31.32 ; Anxiety F41.9 ; Borderline personality disorder F60.3 and Polysubstance (including opioids) dependence with physiol dependence F19.[address] 20267- 5164 Sep, Bipolar 1 disorder, depressed, moderate F31.32 and Anxiety F41.[address] 19986- 8827 Sep, Bipolar 1 disorder, depressed, moderate F31.32 [id number] [place] [address] 14176- 8798 Sep, Bipolar 1 disorder, depressed, moderate F31.32 and Anxiety F41.9 [facility] [address] [place] [id number] [place] [address] 31928 -7508 Sep, Pain of toe of right foot M79.[address] 05478- 7294 Sep, [facility] [address] [place] [address] [place] [address] 69174 -6659 Sep, Cellulitis of right ankle L03.115 [id number] [place] [address] 15066- 1057 Sep, Bipolar 1 disorder, depressed, moderate F31.32 and Anxiety F41.9 [address] [place] 88432- 6308 Sep, [place] [address] 81856- 1160 Sep, [place] [address] 34105- 8416 Sep, Bipolar 1 disorder, depressed, moderate F31.32 and Anxiety F41.9 [address] [place] [address] 09701- 9173 Sep, Accidental spider bite T63.301A [address] [place] 08784- 1890 Aug, Bipolar 1 disorder, depressed, moderate F31.32 ; Anxiety F41.9 ; Borderline personality disorder F60.3 and Polysubstance (including opioids) dependence with physiol dependence F19.20 [address] [place] 24226- 3510 Aug, [place] [address] 33989- 3220 Aug, Bipolar 1 disorder, depressed, moderate F31.32 and Anxiety F41.9 [address] [place] 98645- 3922 Aug, Pre-diabetes R73.03 ; Acute seasonal allergic rhinitis due to pollen J30.1 ; Hypercholesteremia E78.00 and Nausea R11.0 [address] [address] 10295- 9588 Aug, [place] [address] 84703- 9921 Aug, Bipolar 1 disorder, depressed, moderate F31.32 and Anxiety F41.9 [place] [place] [address] [place] [address] 94414- 5371 08 Aug, 2016 [facility] [id number] [place] [address] 78813- 4424 Aug, [facility] [id number] [place] [address] 72763- 3429 Aug, [facility] [address] 54424- 9505 Aug, Bipolar 1 disorder, depressed, moderate F31.32 and Anxiety F41.9 [id number] [place] [address] 17952- 0515 Aug, [facility] [address] [place] [id number] [place] [address] 82304 -3919 Aug, Insect bite, initial encounter W57.XXXA and Cellulitis of left lower leg L03.116 [id number] [place] [address] 64871- 2329 Aug, Bipolar 1 disorder, depressed, moderate F31.32 and Borderline personality disorder F60.3 [id number] [place] [address] 62449- 6561 July, [address] [place] [address] 71450- 2225 July, [id number] [place] [address] 41840- 6446 July, Encounter for routine adult health examination with abnormal findings Z00.01 ; History of esophageal cancer Z85.01 ; Bipolar 1 disorder, depressed, moderate F31.32 ; Anxiety F41.9 ; Acquired hypothyroidism E03.9 ; Essential hypertension I10 ; Gastroesophageal reflux disease with esophagitis K21.0 and Encounter for immunization Z23 [address] [place] [address] 17981- 8385 July, Bipolar 1 disorder, depressed, moderate F31.32 and Anxiety F41.9 [address] [address]- 6842 July, [facility] [address] [place] [address] 882059- 2572 July, Bipolar 1 disorder, depressed, moderate F31.32 and Anxiety F41.9 [facility] [address] [place] [address] 80416- 2906 July, Bipolar 1 disorder, depressed, moderate F31.32 [facility] [id number] [place] [address] 07933- 2434 July, Bipolar 1 disorder, depressed, moderate F31.32 and Anxiety F41.9 [place] [address] [place] [address] 01556- 0641 Jun, Bipolar 1 disorder, depressed, moderate F31.32 [place] [address] [place] [address] 54570- 3041 Jun, Bipolar 1 disorder, depressed, moderate F31.32 and Borderline personality disorder F60.3 [place] [address] [place] [address] 52878- 0092 Jun, Bipolar 1 disorder, depressed, moderate F31.32 [facility] [address], [place] [address]- 4958 Jun, Bipolar 1 disorder, depressed, moderate F31.32 [place] [address] [place] [address] 45843- 9414 May, Bipolar 1 disorder, depressed, moderate F31.32 and Anxiety F41.9 [facility] [address], [place] [address]- 9319 May, Bipolar 1 disorder, depressed, moderate F31.32 and Anxiety F41.9 [facility] [address], [place] [address]- 0603 May, Bipolar 1 disorder, depressed, moderate F31.32 and Anxiety F41.9 [facility] [address] [place] [address] 49558- 0038 May, Bipolar 1 disorder, depressed, moderate F31.32 and Borderline personality disorder F60.3 [facility] [id number] [place] [address] 67117- 3709 May, [facility] [id number] [place] [address] 35102- 3887 May, Bipolar 1 disorder, depressed, moderate F31.32 and Anxiety F41.9 [place] [id number] [place] [address] 76286- 0131 May, Bipolar 1 disorder, depressed, moderate F31.32 and Anxiety F41.9 [place] [id number] [place] [address] 83431- 5120 May, [place] [id number] [place] [address] 05775- 5596 May, Bipolar 1 disorder, depressed, moderate F31.32 [place] [id number] [place] [address] 47087- 1022 May, Bipolar 1 disorder, depressed, moderate F31.32 and Generalized anxiety disorder F41.1 [place] [address] [place] [address] 88571- 2808 Apr, Bipolar 1 disorder, depressed, moderate F31.32 and Anxiety F41.9 [place] [address] [place] [address] 99729- 4883 Apr, [place] [id number] [place] [address] 47135- 2782 Apr, Bipolar 1 disorder, depressed, moderate F31.32 and Anxiety F41.9 [place] [address] [place] [address] 98823- 2878 Apr, Bipolar 1 disorder, depressed, moderate F31.32 and Anxiety F41.9 [place] [id number] [place] [address] 50765- 1867 Apr, Bipolar affective disorder, depressed, severe F31.4 and Generalized anxiety disorder F41.1 [facility] [id number] [place] [address] 04172- 3375 Mar, Bipolar 1 disorder, depressed, moderate F31.32 and Anxiety F41.9 [facility] [id number] [place] [address] 64839- 0248 Mar, Bipolar 1 disorder, depressed, moderate F31.32 and Anxiety F41.9 [place] [id number] [place] [address] 97683- 1800 Mar, Bipolar 1 disorder, mixed, moderate F31.62 [place] [id number] [place] [address] 41701- 7716 Mar, [place] [id number] [place] [address] 05167- 5260 Mar, Bipolar 1 disorder, mixed, moderate F31.62 ; Generalized anxiety disorder F41.1 and Other penitentiary (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 Z79.899 [place] [id number] [place] [address] 94504- 1147 Feb, Bipolar 1 disorder, depressed, moderate F31.32 and Anxiety F41.9 [facility] [address] [place] [address] 87926- 9774 Feb, Bipolar 1 disorder, depressed, moderate F31.32 and Other penitentiary (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 Z79.899 [facility] [address] [place] [address] 12042- 9899 Feb, [facility] [id number] [place] [address] 91804- 6695 Feb, Bipolar 1 disorder, depressed, moderate F31.32 and Anxiety F41.9 [facility] [address] [place] [address] 90734- 2022 Feb, Bipolar 1 disorder, depressed, moderate F31.32 and Other penitentiary (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 Z79.899 [facility] [address] [place] [address] 22890925- 3547 Feb, Bipolar 1 disorder, depressed, moderate F31.32 and Anxiety F41.9 [place] [address] [place] [address] 971969- 5939 Dec, Bipolar 1 disorder, depressed, moderate F31.32 and Anxiety F41.9 [place] [id number] [place] [address] 135027- 5718 Oct, [place] [id number] [place] [address] 092287- 6837 Oct, [place] [id number] [place] [address] 44935575- 0621 May, [place] [id number] [place] [address] 763498- 1392 May, [place] [address] [place] [address] 77753- 4885 Mar, [place] [id number] [place] [address] 191616- 0998 Mar, IMMUNIZATIONS No Known Immunizations SOCIAL HISTORY [...] Cancer Head and Neck 2004 Hospitalization History [facility] Admission 2016
--- OUTSIDE RECORDS SUMMARY | 2017-11-25 12:35 | XMS REPORT ---
Author Author ANGULODICK Casillas Organization [facility] Address [address] [place] [address] Care Team Providers Care Resistor Inspector Name Role Phone DICK ANGULO Unavailable PROBLEMS Type Condition ICD9-CM Code WVO21-CY Code Onset Dates Condition Status SNOMED Code Problem Gastroesophageal reflux disease with esophagitis K21.0 Active 123772933 Problem Polysubstance (including opioids) dependence with physiol dependence F19.20 Active 15800049 Problem History of esophageal cancer Z85.01 Active 632837956 Problem Seasonal allergies J30.2 Active 446004333 Problem Pre-diabetes R73.03 Active 044867239 Problem GERD (gastroesophageal reflux disease) K21.9 Active 009772576 Problem Borderline personality disorder F60.3 Active 50903933 Problem Pure hypercholesterolemia E78.00 Active 814356437 Problem Nephrolithiasis N20.0 Active 40593950 Problem STATE HEP A (ADULT) DX V05.3 Active 104800942 Problem Bipolar 1 disorder, depressed, moderate F31.32 Active 77327058 Problem Anxiety F41.9 Active 59570519 Problem Vitamin D insufficiency E55.9 Active 147892046 Problem Essential hypertension I10 Active 77312307 Problem Elevated serum creatinine R79.89 Active 462341667 Problem Acquired hypothyroidism E03.9 Active 689780640 ALLERGIES No Information ENCOUNTERS Encounter Location Date Diagnosis [facility] [id number] [address] Nov, [facility] [id number] [place] [address] 96793- 1707 Oct, [facility] [address], [place] [address] Oct, [facility] [id number] [id number] Sep, Encounter for dental examination Z01.20 [facility] [id number] [place] [address] 19181- 7747 Sep, Acute oral pain K13.79 [place] [id number] [place] [address] 87632- 4594 Sep, Bipolar 1 disorder, depressed, moderate F31.32 [place] [address] 98155- 6295 Sep, Bipolar 1 disorder, depressed, moderate F31.32 [place] [id number] [place] [address] 26808- 8830 Sep, Bipolar 1 disorder, depressed, moderate F31.32 [place] [address] 74244- 4458 Sep, Essential hypertension I10 ; Acquired hypothyroidism E03.9 ; Anxiety F41.9 ; Chronic nausea R11.0 and Irritant contact dermatitis due to plants, except food L24.7 [place] [address] 59171- 9299 Aug, Bipolar 1 disorder, depressed, moderate F31.32 [place] [id number] [place] [address] 70822- 2133 Aug, Bipolar 1 disorder, depressed, moderate F31.32 [place] [id number] [place] [address] 34647- 2599 Aug, Bipolar 1 disorder, depressed, moderate F31.32 [place] [id number] [place] [address] 48321- 8969 July, Candidal dermatitis B37.2 [place] [address] 42514- 2103 July, Acquired hypothyroidism E03.9 [place] [id number] [place] [address] 84558- 8052 July, Bipolar 1 disorder, depressed, moderate F31.32 [facility] [address] [place] [address] 46606 -9372 July, Seasonal allergies J30.2 [facility] [address] 19845- 9421 July, Bipolar 1 disorder, depressed, moderate F31.32 [facility] [id number] [place] [address] 04068- 6632 Jun, Pre-diabetes R73.03 [place] [id number] [place] [address] 73151- 4549 Jun, Bipolar 1 disorder, depressed, moderate F31.32 ; Anxiety F41.9 ; Borderline personality disorder F60.3 ; Other specified abnormal findings of blood chemistry R79.89 and Polysubstance (including opioids) dependence with physiol dependence F19.20 [place] [id number] [place] [address] 44155- 1592 Jun, Bipolar 1 disorder, depressed, moderate F31.32 [place] [id number] [place] [address] 67681- 4289 May, Bipolar 1 disorder, depressed, moderate F31.32 [place] [id number] [place] [address] 27059- 6908 May, Bipolar 1 disorder, depressed, moderate F31.32 [place] [id number] [place] [address] 67391- 2004 May, [place] [id number] [place] [address] 03823- 9370 May, [facility] [id number] [place] [address] 15970- 4257 May, Bipolar 1 disorder, depressed, moderate F31.32 [facility] [id number] [place] [address] 01036- 8791 May, Bipolar 1 disorder, depressed, moderate F31.32 [place] [id number] [place] [address] 27299- 0807 May, Other specified abnormal findings of blood chemistry R79.89 [place] [address] 326 May, Essential hypertension I10 ; Acquired hypothyroidism E03.9 ; Gastroesophageal reflux disease with esophagitis K21.0 ; Hair loss L65.9 ; Hypokalemia, gastrointestinal losses E87.6 ; Pre-diabetes R73.03 ; Candidal dermatitis B37.2 and Pure hypercholesterolemia E78.00 [place] [address] 94924 099 Apr, Bipolar 1 disorder, depressed, moderate F31.[address] 705 Apr, Bipolar 1 disorder, depressed, moderate F31.[address] 83581- 132 Apr, Bipolar 1 disorder, depressed, moderate F31.32 and Anxiety F41.9 [facility] [address] [address]8697 Mar, Encounter for immunization Z23 ; Fall, initial encounter W19.XXXA ; Rib pain on left side R07.81 and Left hip pain M25.[address] 52342- 0341 Mar, Bipolar 1 disorder, depressed, moderate F31.32 and Anxiety F41.9 [place] [address] 40355- 8947 Mar, Bipolar 1 disorder, depressed, moderate F31.32 ; Anxiety F41.9 ; Borderline personality disorder F60.3 and Polysubstance (including opioids) dependence with physiol dependence F19.20 [place] [address] 79158- 7108 Mar, Bipolar 1 disorder, depressed, moderate F31.32 and Anxiety F41.9 [facility] [address] [address] Feb, Irritant contact dermatitis, unspecified trigger L24.9 [facility] [id number] [place] [address] 06855- 0096 Feb, [facility] [id number] [place] [address] 62938- 9412 Feb, [facility] [id number] [place] [address] 45806- 7729 Feb, Bipolar 1 disorder, depressed, moderate F31.32 and Anxiety F41.9 [facility] [id number] [place] [address] 523008- 5935 Feb, Acute non-recurrent maxillary sinusitis J01.00 [facility] [id number] [place] [address] 73947- 1031 Feb, [facility] [id number] [place] [address] 55737- 2734 Feb, Bipolar 1 disorder, depressed, moderate F31.32 [facility] [id number] [place] [address] 43727- 8996 Jan, [facility] [id number] [place] [address] 67461- 2346 29 Jan, 2017 Bipolar 1 disorder, depressed, moderate F31.32 ; Anxiety F41.9 ; Borderline personality disorder F60.3 and Polysubstance (including opioids) dependence with physiol dependence F19.20 [facility] [address] [place] [address] 30377- 0128 27 Jan, 2017 Bipolar 1 disorder, depressed, moderate F31.32 and Anxiety F41.9 [facility] [address] [place] [address] 83702- 8829 20 Jan, 2017 Bipolar 1 disorder, depressed, moderate F31.32 ; Anxiety F41.9 ; Borderline personality disorder F60.3 and Polysubstance (including opioids) dependence with physiol dependence F19.20 [place] [address] [place] [address] 55251- 3574 Jan, Bipolar 1 disorder, depressed, moderate F31.32 and Anxiety F41.9 [place] [id number] [place] [address] 43538- 5291 Dec, Hypokalemia, gastrointestinal losses E87.6 ; GERD ( gastroesophageal reflux disease) K21.9 and Bipolar 1 disorder, depressed, moderate F31.32 [place] [id number] [place] [address] 75750- 1455 Dec, Bipolar 1 disorder, depressed, moderate F31.32 and Anxiety F41.9 [facility] [place] [address] 12149 -1922 Dec, [place] [address] 49768- 3675 Dec, [facility] [place] [address] 35753 -9997 Dec, Fall (on) (from) other stairs and steps, initial encounter W10.8XXA ; Laceration of left lower extremity, initial encounter S81.812A ; Contusion of right knee, initial encounter S80.01XA and Contusion of right shoulder, initial encounter S40.011[id number] [place] [address] 53683- 2982 Dec, Bipolar 1 disorder, depressed, moderate F31.32 ; Anxiety F41.9 ; Borderline personality disorder F60.3 and Polysubstance (including opioids) dependence with physiol dependence F19.20 [place] [id number] [place] [address] 19114- 9932 Dec, Bipolar 1 disorder, depressed, moderate F31.32 and Anxiety F41.9 [place] [id number] [place] [address] 25125- 5515 Dec, [place] [address] [id number]- 2546 05 Dec, 2016 Hospital discharge follow-up Z09 ; Nephrolithiasis N20.0 ; Essential hypertension I10 ; Gastroesophageal reflux disease with esophagitis K21.0 and Anxiety F41.9 [facility] [id number] [place] [address] 99806- 5224 28 Nov, 2016 [facility] [address] 85579 -3542 24 Nov, 2016 Dysuria R30.0 and Acute cystitis with hematuria N30.01 [facility] [address] 39765 -0364 24 Nov, 2016 [place] [address] 292432- 8516 19 Nov, 2016 [place] [address] 91998- 4417 19 Nov, 2016 Gastroesophageal reflux disease with esophagitis K21.0 ; Hypercholesteremia E78.00 and Acquired hypothyroidism E03.9 [facility] [address] 05540 -5529 18 Nov, 2016 Left wrist pain M25.532 and Contusion of left wrist, initial encounter S60.212A [place] [address] 20000- 8486 18 Nov, 2016 Bipolar 1 disorder, depressed, moderate F31.32 ; Anxiety F41.9 ; Borderline personality disorder F60.3 and Polysubstance (including opioids) dependence with physiol dependence F19.20 [facility] [id number] [place] [address] 44546 -6728 15 Nov, 2016 Abdominal pain R10.9 and GERD (gastroesophageal reflux disease) K21.9 [facility] [address] 63467- 0130 12 Nov, 2016 Hypokalemia, gastrointestinal losses E87.6 [place] [address] 31970- 0748 Nov, Dehydration E86.0 ; Hypokalemia, gastrointestinal losses E87.6 and Vaginal candidiasis B37.3 [place] [address]- 1136 08 Nov, 2016 Abnormal weight loss R63.4 ; Diarrhea, unspecified R19.7 ; Vomiting, unspecified R11.10 ; Generalized abdominal pain R10.84 and Decreased breath sounds R06.[address] 49150- 7951 Oct, Bipolar 1 disorder, depressed, moderate F31.32 and Anxiety F41[place]9 [place] [address]- 8911 Sep, Bipolar 1 disorder, depressed, moderate F31.32 ; Anxiety F41.9 ; Borderline personality disorder F60.3 and Polysubstance (including opioids) dependence with physiol dependence F19.[address] 31595- 8411 Sep, Bipolar 1 disorder, depressed, moderate F31.32 and Anxiety F41.[address] 45471- 7273 Sep, Bipolar 1 disorder, depressed, moderate F31.[address] 67585- 8054 Sep, Bipolar 1 disorder, depressed, moderate F31.32 and Anxiety F41.9 [facility] [address] [place] [address] 87157 -4608 Sep, Pain of toe of right foot M79.[address] 00907- 4832 Sep, [facility] [address] [place] [address] 18814 -5287 15 Sep, 2016 Cellulitis of right ankle L03.[address] [place] [address]- 7217 Sep, Bipolar 1 disorder, depressed, moderate F31.32 and Anxiety F41.9 [facility] [address] 30250- 6918 Sep, [facility] [address] 97288- 3897 Sep, [facility] [address] 87109- 7756 Sep, Bipolar 1 disorder, depressed, moderate F31.32 and Anxiety F41.9 [place] [address] 92547- 6252 Sep, Accidental spider bite T63.301A [place] [address] 50175- 0026 Aug, Bipolar 1 disorder, depressed, moderate F31.32 ; Anxiety F41.9 ; Borderline personality disorder F60.3 and Polysubstance (including opioids) dependence with physiol dependence F19.20 [place] [address] 44261- 0310 Aug, [place] [address] 22917- 3553 Aug, Bipolar 1 disorder, depressed, moderate F31.32 and Anxiety F41.9 [place] [address] 34728- 8093 Aug, Pre-diabetes R73.03 ; Acute seasonal allergic rhinitis due to pollen J30.1 ; Hypercholesteremia E78.00 and Nausea R11.0 [place] [address] 96666- 0838 Aug, [place] [address] 54081- 4295 Aug, Bipolar 1 disorder, depressed, moderate F31.32 and Anxiety F41.9 [place] [id number] [place] [address] 13065- 4928 08 Aug, 2016 [facility] [address] 10663- 9092 Aug, [facility] [id number] [place] [address] 01093- 2621 Aug, [place] [address] 73055- 6828 Aug, Bipolar 1 disorder, depressed, moderate F31.32 and Anxiety F41.[address] 11243- 3324 Aug, [facility] [address] 58153 -3825 Aug, Insect bite, initial encounter W57.XXXA and Cellulitis of left lower leg L03.[address] 12727- 3986 Aug, Bipolar 1 disorder, depressed, moderate F31.32 and Borderline personality disorder F60.[address] 34812- 4414 July, [address] [place] [id number] [place] [address] 21159- 1328 July, [address] [id number] [place] [address] 79207- 5761 July, Encounter for routine adult health examination with abnormal findings Z00.01 ; History of esophageal cancer Z85.01 ; Bipolar 1 disorder, depressed, moderate F31.32 ; Anxiety F41.9 ; Acquired hypothyroidism E03.9 ; Essential hypertension I10 ; Gastroesophageal reflux disease with esophagitis K21.0 and Encounter for immunization Z23 [id number] [place] [address] 09864- 6896 18 Jul, 2016 Bipolar 1 disorder, depressed, moderate F31.32 and Anxiety F41.[address] [place] [address]- 2751 July, [facility] [id number] [place] [address] 207448- 2995 July, Bipolar 1 disorder, depressed, moderate F31.32 and Anxiety F41.9 [facility] [id number] [place] [address] 25061- 7382 July, Bipolar 1 disorder, depressed, moderate F31.32 [facility] [id number] [place] [address] 52976- 9258 July, Bipolar 1 disorder, depressed, moderate F31.32 and Anxiety F41.9 [facility] [id number] [place] [address] 386565- 7071 Jun, Bipolar 1 disorder, depressed, moderate F31.32 [facility] [id number] [place] [address] 15360- 6024 Jun, Bipolar 1 disorder, depressed, moderate F31.32 and Borderline personality disorder F60.3 [facility] [id number] [place] [address] 32338- 6355 Jun, Bipolar 1 disorder, depressed, moderate F31.32 [facility] [id number] [place] [address] 80731- 6209 Jun, Bipolar 1 disorder, depressed, moderate F31.32 [facility] [id number] [place] [address] 92714- 0028 May, Bipolar 1 disorder, depressed, moderate F31.32 and Anxiety F41.9 [facility] [id number] [place] [address] 30620- 9917 May, Bipolar 1 disorder, depressed, moderate F31.32 and Anxiety F41.9 [facility] [id number] [place] [address] 08798- 0340 May, Bipolar 1 disorder, depressed, moderate F31.32 and Anxiety F41.9 [facility] [id number] [place] [address] 70739- 8145 May, Bipolar 1 disorder, depressed, moderate F31.32 and Borderline personality disorder F60.3 [facility] [id number] [place] [address] 44443- 9374 May, [facility] [id number] [place] [address] 77460- 2317 May, Bipolar 1 disorder, depressed, moderate F31.32 and Anxiety F41.9 [place] [id number] [place] [address] 27428- 6771 May, Bipolar 1 disorder, depressed, moderate F31.32 and Anxiety F41.9 [place] [id number] [place] [address] 81461- 6399 May, [place] [id number] [place] [address] 79411- 4256 May, Bipolar 1 disorder, depressed, moderate F31.32 [place] [id number] [place] [address] 93131- 5652 May, Bipolar 1 disorder, depressed, moderate F31.32 and Generalized anxiety disorder F41.1 [place] [id number] [place] [address] 04190- 9955 Apr, Bipolar 1 disorder, depressed, moderate F31.32 and Anxiety F41.9 [place] [id number] [place] [address] 60532- 4331 Apr, [facility] [id number] [place] [address] 38636- 8476 Apr, Bipolar 1 disorder, depressed, moderate F31.32 and Anxiety F41.9 [place] [address] [place] [address] 38520- 5968 Apr, Bipolar 1 disorder, depressed, moderate F31.32 and Anxiety F41.9 [place] [id number] [place] [address] 19009- 1092 Apr, Bipolar affective disorder, depressed, severe F31.4 and Generalized anxiety disorder F41.1 [facility] [id number] [place] [address] 21331- 3082 Mar, Bipolar 1 disorder, depressed, moderate F31.32 and Anxiety F41.9 [facility] [id number] [place] [address] 11617- 7490 Mar, Bipolar 1 disorder, depressed, moderate F31.32 and Anxiety F41.9 [place] [id number] [place] [address] 36200- 9356 Mar, Bipolar 1 disorder, mixed, moderate F31.62 [place] [id number] [place] [address] 21870- 4353 Mar, [facility] [id number] [place] [address] 27891- 0153 Mar, Bipolar 1 disorder, mixed, moderate F31.62 ; Generalized anxiety disorder F41.1 and Other long term care administrator (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 Z79.899 [place] [id number] [place] [address] 14146- 5155 Feb, Bipolar 1 disorder, depressed, moderate F31.32 and Anxiety F41.9 [facility] [address] [place] [address] 94894- 3948 Feb, Bipolar 1 disorder, depressed, moderate F31.32 and Other intermediate (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 Z79.899 [facility] [address] [place] [address] 79059- 5691 Feb, [facility] [id number] [place] [address] 83279- 8076 Feb, Bipolar 1 disorder, depressed, moderate F31.32 and Anxiety F41.9 [facility] [id number] [place] [address] 39932- 1186 Feb, Bipolar 1 disorder, depressed, moderate F31.32 and Other long term care administrator (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 Z79.899 [facility] [address] [address]- 4258 Feb, Bipolar 1 disorder, depressed, moderate F31.32 and Anxiety F41.9 [place] [address] [place] [address] 984868- 2167 Dec, Bipolar 1 disorder, depressed, moderate F31.32 and Anxiety F41.9 [place] [id number] [place] [address] 61166359- 7555 Oct, [place] [address] [id number] [place] [address]- 2792 Oct, [place] [id number] [place] [address]- 9352 May, [place] [id number] [place] [address] 51822- 2404 May, [place] [id number] [place] [address] 65895- 7945 Mar, [place] [id number] [place] [id number]- 6402 Mar, IMMUNIZATIONS No Known Immunizations SOCIAL HISTORY Never Assessed REASON FOR VISIT Refill request PLAN OF CARE VITAL SIGNS MEDICATIONS Unknown [...] Cancer Head and Neck 2005 Hospitalization History [facility] Psychiatric Admission 2016
[2017-11-25 12:36] LABS: BASOPHILS % (AUTO) 0 % (0-10); EOSINOPHILS % (AUTO) 0 % (0-10); HEMATOCRIT 40 % (35-52); HEMOGLOBIN 13.9 G/DL (11.5-16.0); LYMPHOCYTES # (AUTO) 1.2 X 10^3 (1.0-4.0); LYMPHOCYTES % (AUTO) 26 % (12-44); MEAN CORPUSCULAR HEMOGLOBIN 29 PG (25-34); MEAN CORPUSCULAR HGB CONC 35 G/DL (32-36); MEAN CORPUSCULAR VOLUME 84 FL (80-99); MEAN PLATELET VOLUME 9.1 FL (7.4-10.4); MONOCYTES # (AUTO) 0.6 X 10^3 (0.0-1.0); MONOCYTES % (AUTO) 12 % (0-12); NEUTROPHILS % (AUTO) 63 % (42-75); PLATELET COUNT 220 10^3/uL (130-400); RED BLOOD COUNT 4.77 10^6/uL (4.35-5.85); RED CELL DISTRIBUTION WIDTH 14.6 % (10.0-14.5); WHITE BLOOD COUNT 4.8 10^3/uL (4.3-11.0)
--- OUTSIDE RECORDS SUMMARY | 2017-11-25 12:36 | XMS REPORT ---
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 Name Role Phone MICHELLE, DARCI Unavailable PROBLEMS Type Condition ICD9-CM Code ZKH68-LG Code Onset Dates Condition Status SNOMED Code Problem Gastroesophageal reflux disease with esophagitis K21.0 Active 955224508 Problem Polysubstance (including opioids) dependence with physiol dependence F19.20 Active 21760098 Problem History of esophageal cancer Z85.01 Active 388296780 Problem Seasonal allergies J30.2 Active 774447694 Problem Pre-diabetes R73.03 Active 570223357 Problem GERD (gastroesophageal reflux disease) K21.9 Active 387046928 Problem Borderline personality disorder F60.3 Active 78146486 Problem Pure hypercholesterolemia E78.00 Active 732393673 Problem Nephrolithiasis N20.0 Active 32578308 Problem STATE HEP A (ADULT) DX V05.3 Active 580559452 Problem Bipolar 1 disorder, depressed, moderate F31.32 Active 94852134 Problem Anxiety F41.9 Active 91419215 Problem Vitamin D insufficiency E55.9 Active 162945493 Problem Essential hypertension I10 Active 55687588 Problem Elevated serum creatinine R79.89 Active 010436651 Problem Acquired hypothyroidism E03.9 Active 287198958 ALLERGIES No Information ENCOUNTERS Encounter Location Date Diagnosis [facility] [id number] [address] Oct, [facility] [id number] [place] [address] 29747- 1555 Oct, [facility] [address], [place] [address] Sep, [facility] [id number] [address] Sep, Bipolar 1 disorder, depressed, moderate F31.32 [facility] [id number] [place] [address] 50248- 1681 Sep, Bipolar 1 disorder, depressed, moderate F31.32 [facility] [id number] [place] [address] 61282- 2929 Sep, Essential hypertension I10 ; Acquired hypothyroidism E03.9 ; Anxiety F41.9 ; Chronic nausea R11.0 and Irritant contact dermatitis due to plants, except food L24.7 [facility] [id number] [place] [address] 91200- 6971 Aug, Bipolar 1 disorder, depressed, moderate F31.32 [facility] [id number] [place] [address] 71673- 9403 Aug, Bipolar 1 disorder, depressed, moderate F31.32 [place] [address] 56956- 2341 Aug, Bipolar 1 disorder, depressed, moderate F31.32 [facility] [id number] [place] [address] 79811- 0287 July, Candidal dermatitis B37.2 [facility] [id number] [place] [address] 53688- 6652 July, Acquired hypothyroidism E03.9 [facility] [id number] [place] [address] 56023- 5107 July, Bipolar 1 disorder, depressed, moderate F31.32 [facility] [id number] [place] [address] 67137 -0294 July, Seasonal allergies J30.2 [facility] [address] 11629- 0985 July, Bipolar 1 disorder, depressed, moderate F31.32 [facility] [id number] [place] [address] 38067- 7745 Jun, Pre-diabetes R73.03 [facility] [id number] [place] [address] Jun, Bipolar 1 disorder, depressed, moderate F31.32 ; Anxiety F41.9 ; Borderline personality disorder F60.3 ; Other specified abnormal findings of blood chemistry R79.89 and Polysubstance (including opioids) dependence with physiol dependence F19.20 [place] [address] [place] [address]- 408 Jun, Bipolar 1 disorder, depressed, moderate F31.32 [facility] [address] 2939 May, Bipolar 1 disorder, depressed, moderate F31.32 [facility] [id number] 366 May, Bipolar 1 disorder, depressed, moderate F31.32 [facility] [address] 598641- 5798 May, [facility] [address] 598640- 2653 May, [facility] [address] [id number]- 7389 May, Bipolar 1 disorder, depressed, moderate F31.32 [facility] [address] [id number]- 0656 May, Bipolar 1 disorder, depressed, moderate F31.32 [facility] [address] 598649- 0179 May, Other specified abnormal findings of blood chemistry R79.89 [place] 634891- 9452 08 May, 2017 Essential hypertension I10 ; Acquired hypothyroidism E03.9 ; Gastroesophageal reflux disease with esophagitis K21.0 ; Hair loss L65.9 ; Hypokalemia, gastrointestinal losses E87.6 ; Pre-diabetes R73.03 ; Candidal dermatitis B37.2 and Pure hypercholesterolemia E78.00 [facility] [id number] [place] [address] 81212- 9932 Apr, Bipolar 1 disorder, depressed, moderate F31.32 [facility] [id number] [place] [address] 20411- 1638 Apr, Bipolar 1 disorder, depressed, moderate F31.32 [place] [address] 81786- 5739 Apr, Bipolar 1 disorder, depressed, moderate F31.32 and Anxiety F41.9 [facility] [place] [address] [address]37 -5939 Mar, Encounter for immunization Z23 ; Fall, initial encounter W19.XXXA ; Rib pain on left side R07.81 and Left hip pain M25.552 [place] [address] 99596- 4659 Mar, Bipolar 1 disorder, depressed, moderate F31.32 and Anxiety F41.9 [facility] [address] 19135- 6201 Mar, Bipolar 1 disorder, depressed, moderate F31.32 ; Anxiety F41.9 ; Borderline personality disorder F60.3 and Polysubstance (including opioids) dependence with physiol dependence F19.20 [facility] [id number] [place] [address] 55376- 5558 Mar, Bipolar 1 disorder, depressed, moderate F31.32 and Anxiety F41.9 [facility] [address] 64279 -5154 Feb, Irritant contact dermatitis, unspecified trigger L24.9 [place] [address] 01826- 5375 Feb, [place] [address] 46556- 5994 Feb, [place] [address] [place] [address] 0662 14 Feb, 2017 Bipolar 1 disorder, depressed, moderate F31.32 and Anxiety F41.9 [facility] [facility] [id number] [place], [place] [address] 990 14 Feb, 2017 Acute non-recurrent maxillary sinusitis J01.00 [facility] [address] 66670- 372 Feb, [facility] [address] 598641- 6059 Feb, Bipolar 1 disorder, depressed, moderate F31.32 [place] [address] [place] [address]- 1517 Jan, [facility] [address] 981064- 8788 Jan, Bipolar 1 disorder, depressed, moderate F31.32 ; Anxiety F41.9 ; Borderline personality disorder F60.3 and Polysubstance (including opioids) dependence with physiol dependence F19.20 [facility] [id number] [place] [address] 53335- 1450 27 Jan, 2017 Bipolar 1 disorder, depressed, moderate F31.32 and Anxiety F41.9 [facility] [id number] [place] [address] 39275- 9791 20 Jan, 2017 Bipolar 1 disorder, depressed, moderate F31.32 ; Anxiety F41.9 ; Borderline personality disorder F60.3 and Polysubstance (including opioids) dependence with physiol dependence F19.20 [facility] [id number] [place] [address] 98926- 9820 13 Jan, 2017 Bipolar 1 disorder, depressed, moderate F31.32 and Anxiety F41.9 [facility] [id number] [place] [address] 4170 23 Dec, 2016 Hypokalemia, gastrointestinal losses E87.6 ; GERD ( gastroesophageal reflux disease) K21.9 and Bipolar 1 disorder, depressed, moderate F31.32 [facility] [facility] [id number] [place] [address] 66179- 3119 Dec, Bipolar 1 disorder, depressed, moderate F31.32 and Anxiety F41.9 [facility] [id number] [place] [address] 45603 -6997 Dec, [place] [address] 03835- 7002 Dec, [facility] [address] [address]30 -[address]64 Dec, Fall (on) (from) other stairs and steps, initial encounter W10.8XXA ; Laceration of left lower extremity, initial encounter S81.812A ; Contusion of right knee, initial encounter S80.01XA and Contusion of right shoulder, initial encounter S40.011A [address] 60346- 6369 Dec, Bipolar 1 disorder, depressed, moderate F31.32 ; Anxiety F41.9 ; Borderline personality disorder F60.3 and Polysubstance (including opioids) dependence with physiol dependence F19.[address] 37748- 9836 Dec, Bipolar 1 disorder, depressed, moderate F31.32 and Anxiety F41.9 [id number] [place] [address] 66009- 8997 Dec, [address] 18209- 1789 Dec, Hospital discharge follow-up Z09 ; Nephrolithiasis N20.0 ; Essential hypertension I10 ; Gastroesophageal reflux disease with esophagitis K21.0 and Anxiety F41.9 [place] [id number] [place] [address] 83059- 7068 Nov, [facility] [id number] [place] [address] 24145 -3951 24 Nov, 2016 Dysuria R30.0 and Acute cystitis with hematuria N30.01 [facility] [id number] [place] [address] 83459 -9148 Nov, [facility] [address] 85001- 4793 Nov, [facility] [address] 01034- 2176 Nov, Gastroesophageal reflux disease with esophagitis K21.0 ; Hypercholesteremia E78.00 and Acquired hypothyroidism E03.9 [facility] [address] 35353 -7924 18 Nov, 2016 Left wrist pain M25.532 and Contusion of left wrist, initial encounter S60.212A [place] [address] 81195- 2280 18 Nov, 2016 Bipolar 1 disorder, depressed, moderate F31.32 ; Anxiety F41.9 ; Borderline personality disorder F60.3 and Polysubstance (including opioids) dependence with physiol dependence F19.20 [facility] [address] 50090 -2852 15 Nov, 2016 Abdominal pain R10.9 and GERD (gastroesophageal reflux disease) K21.9 [place] [address] 72069- 6343 12 Nov, 2016 Hypokalemia, gastrointestinal losses E87.6 [place] [address] 19581- 6876 11 Nov, 2016 Dehydration E86.0 ; Hypokalemia, gastrointestinal losses E87.6 and Vaginal candidiasis B37.3 [place] [address] 36991- 5457 08 Nov, 2016 Abnormal weight loss R63.4 ; Diarrhea, unspecified R19.7 ; Vomiting, unspecified R11.10 ; Generalized abdominal pain R10.84 and Decreased breath sounds R06.89 [place] [address] [place] [address]- 8134 Oct, Bipolar 1 disorder, depressed, moderate F31.32 and Anxiety F41.9 [facility] [address] 10479092- 2891 Sep, Bipolar 1 disorder, depressed, moderate F31.32 ; Anxiety F41.9 ; Borderline personality disorder F60.3 and Polysubstance (including opioids) dependence with physiol dependence F19.20 [address] [address] 58254- 0640 Sep, Bipolar 1 disorder, depressed, moderate F31.32 and Anxiety F41.9 [address] [address] 43125- 4337 Sep, Bipolar 1 disorder, depressed, moderate F31.32 [address] [address] 11418- 7537 Sep, Bipolar 1 disorder, depressed, moderate F31.32 and Anxiety F41.9 [facility] [address] 90440 -6833 Sep, Pain of toe of right foot M79.674 [address] [address] [address] 10121- 0326 Sep, [facility] [address] 02389 -5617 Sep, Cellulitis of right ankle L03.115 [address] [address] 76016- 3577 Sep, Bipolar 1 disorder, depressed, moderate F31.32 and Anxiety F41.9 [address] [address] 02945- 2628 Sep, [place] [address] 39036- 9668 Sep, [place] [address] 62154- 9741 Sep, Bipolar 1 disorder, depressed, moderate F31.32 and Anxiety F41.9 [address] [address] 82840- 2062 Sep, Accidental spider bite T63.301A [place] [address] 01677- 6428 Aug, Bipolar 1 disorder, depressed, moderate F31.32 ; Anxiety F41.9 ; Borderline personality disorder F60.3 and Polysubstance (including opioids) dependence with physiol dependence F19.20 [place] [address] 65084- 6194 Aug, [place] [address] 60480- 1793 Aug, Bipolar 1 disorder, depressed, moderate F31.32 and Anxiety F41.9 [place] [address] 05744- 2063 Aug, Pre-diabetes R73.03 ; Acute seasonal allergic rhinitis due to pollen J30.1 ; Hypercholesteremia E78.00 and Nausea R11.0 [place] [id number] [place] [address] 90013- 5818 Aug, [place] [id number] [place] [address] 08485- 4838 Aug, Bipolar 1 disorder, depressed, moderate F31.32 and Anxiety F41.9 [facility] [facility] [id number] [place] [address] 49461- 3311 Aug, [place] [address] 36563- 7828 Aug, [place] [facility] [id number] [place] [address] 47382- 6191 Aug, [place] [address] 93064- 4049 Aug, Bipolar 1 disorder, depressed, moderate F31.32 and Anxiety F41.9 [facility] [id number] [place] [address] 18455- 8262 Aug, [facility] [id number] [place] [address] 29511 -2084 Aug, Insect bite, initial encounter W57.XXXA and Cellulitis of left lower leg L03.116 [place] [id number] [place] [address] 17994- 0597 Aug, Bipolar 1 disorder, depressed, moderate F31.32 and Borderline personality disorder F60.[address] 54415- 2426 July, [place] [address] 65004- 9963 July, [place] [address] 02719- 2043 July, Encounter for routine adult health examination with abnormal findings Z00.01 ; History of esophageal cancer Z85.01 ; Bipolar 1 disorder, depressed, moderate F31.32 ; Anxiety F41.9 ; Acquired hypothyroidism E03.9 ; Essential hypertension I10 ; Gastroesophageal reflux disease with esophagitis K21.0 and Encounter for immunization Z23 [place] [id number] [place] [address] 41605- 6781 July, Bipolar 1 disorder, depressed, moderate F31.32 and Anxiety F41.9 [facility] [id number] [place] [address] 00195- 7905 July, [address] [address]- 1973 July, Bipolar 1 disorder, depressed, moderate F31.32 and Anxiety F41.9 [place] [id number] [place] [address] 58989- 7600 July, Bipolar 1 disorder, depressed, moderate F31.32 [place] [address], [place] [address]- 3195 July, Bipolar 1 disorder, depressed, moderate F31.32 and Anxiety F41.9 [facility] [id number] [place] [address] 30004- 5686 Jun, Bipolar 1 disorder, depressed, moderate F31.32 [facility] [id number] [place] [address] 72827- 7477 Jun, Bipolar 1 disorder, depressed, moderate F31.32 and Borderline personality disorder F60.3 [facility] [id number] [place] [address] 86997- 7036 Jun, Bipolar 1 disorder, depressed, moderate F31.32 [place] [id number] [place] [address] 54830- 3226 Jun, Bipolar 1 disorder, depressed, moderate F31.32 [place] [id number] [place] [address] 51184- 3962 May, Bipolar 1 disorder, depressed, moderate F31.32 and Anxiety F41.9 [place] [id number] [place] [address] 43810- 6252 May, Bipolar 1 disorder, depressed, moderate F31.32 and Anxiety F41.9 [place] [address] [place] [address] 66599- 8411 May, Bipolar 1 disorder, depressed, moderate F31.32 and Anxiety F41.9 [facility] [address] [place] [address] 06557- 6751 May, Bipolar 1 disorder, depressed, moderate F31.32 and Borderline personality disorder F60.3 [facility] [id number] [place] [address] 19347- 0757 14 May, 2016 [facility] [id number] [place] [address] 67542- 1604 13 May, 2016 Bipolar 1 disorder, depressed, moderate F31.32 and Anxiety F41.9 [place] [id number] [place] [address] 27799- 5186 May, Bipolar 1 disorder, depressed, moderate F31.32 and Anxiety F41.9 [place] [address] [place] [address]- 9239 May, [place] [id number] [place] [address] 993508- 2339 May, Bipolar 1 disorder, depressed, moderate F31.32 [place] [id number] [place] [address] 32376- 3017 May, Bipolar 1 disorder, depressed, moderate F31.32 and Generalized anxiety disorder F41.1 [place] [id number] [place] [address] 69357- 0523 Apr, Bipolar 1 disorder, depressed, moderate F31.32 and Anxiety F41.9 [place] [id number] [place] [address] 82471- 1181 Apr, [place] [id number] [place] [address] 93105- 1642 Apr, Bipolar 1 disorder, depressed, moderate F31.32 and Anxiety F41.9 [place] [id number] [place] [address] 15686- 4500 Apr, Bipolar 1 disorder, depressed, moderate F31.32 and Anxiety F41.9 [place] [id number] [place] [address] 01627- 7257 Apr, Bipolar affective disorder, depressed, severe F31.4 and Generalized anxiety disorder F41.1 [place] [id number] [place] [address]- 0491 Mar, Bipolar 1 disorder, depressed, moderate F31.32 and Anxiety F41.9 [place] [id number] [place] [address] 34579- 2134 Mar, Bipolar 1 disorder, depressed, moderate F31.32 and Anxiety F41.9 [facility] [address], [place] [address]- 7433 Mar, Bipolar 1 disorder, mixed, moderate F31.62 [facility] [address] [place] [address] 75288- 4595 Mar, [facility] [id number] [place] [address] 17105- 2603 Mar, Bipolar 1 disorder, mixed, moderate F31.62 ; Generalized anxiety disorder F41.1 and Other longterm (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 Z79.899 [facility] [id number] [place] [address] 91102- 3368 Feb, Bipolar 1 disorder, depressed, moderate F31.32 and Anxiety F41.9 [facility] [id number] [place] [address] 25050- 8211 Feb, Bipolar 1 disorder, depressed, moderate F31.32 and Other longterm (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 Z79.899 [facility] [id number] [place] [address] 82375- 0295 Feb, [facility] [id number] [place] [address] 94936- 8698 Feb, Bipolar 1 disorder, depressed, moderate F31.32 and Anxiety F41.9 [facility] [id number] [place] [address] 24083- 9248 Feb, Bipolar 1 disorder, depressed, moderate F31.32 and Other longterm (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 Z79.899 [facility] [address] [place] [address] 53508- 3213 Feb, Bipolar 1 disorder, depressed, moderate F31.32 and Anxiety F41.9 [facility] [address] [place] [address] 27993- 3414 Dec, Bipolar 1 disorder, depressed, moderate F31.32 and Anxiety F41.9 [facility] [id number] [address]- 2546 Oct, [facility] [address] [facility] [id number] [address]- 6953 Oct, [facility] [address] [facility] [id number] [address]- 2546 May, [facility] [address] [facility] [id number] [address]- 2546 May, [facility] [address] [facility] [id number] [address]- 9987 Mar, [facility] [address] [facility] [id number] [address]- 9916 Mar, IMMUNIZATIONS No Known Immunizations SOCIAL HISTORY Never Assessed REASON FOR VISIT med refill PLAN OF CARE VITAL SIGNS MEDICATIONS Medication Instructions Dosage Frequency Start Date End Date Duration Status HydrOXYzine HCl 50 mg Orally twice a day 1 TABLET 2 TIMES A DAY NEEDED ORALLY 30 DAYS 12h 30 days Active RESULTS No Results PROCEDURES [...] and Neck 2004 Hospitalization History [facility]mission 2016
--- OUTSIDE RECORDS SUMMARY | 2017-11-25 12:36 | XMS REPORT ---
Author Author GURINDER NORTON Organization [facility] Address [address] [place] [address] Care Team Providers Care Bookstore Clerk Name Role Phone GURINDER NORTON Unavailable PROBLEMS Type Condition ICD9-CM Code MVR16-XR Code Onset Dates Condition Status SNOMED Code Problem Gastroesophageal reflux disease with esophagitis K21.0 Active 106282812 Problem Polysubstance (including opioids) dependence with physiol dependence F19.20 Active 01344261 Problem History of esophageal cancer Z85.01 Active 989137005 Problem Seasonal allergies J30.2 Active 178942403 Problem Pre-diabetes R73.03 Active 711578436 Problem GERD (gastroesophageal reflux disease) K21.9 Active 060634365 Problem Borderline personality disorder F60.3 Active 93360533 Problem Pure hypercholesterolemia E78.00 Active 707689708 Problem Nephrolithiasis N20.0 Active 27801634 Problem STATE HEP A (ADULT) DX V05.3 Active 751927028 Problem Bipolar 1 disorder, depressed, moderate F31.32 Active 53241302 Problem Anxiety F41.9 Active 11167727 Problem Vitamin D insufficiency E55.9 Active 469459489 Problem Essential hypertension I10 Active 50718381 Problem Elevated serum creatinine R79.89 Active 763243525 Problem Acquired hypothyroidism E03.9 Active 079923993 ALLERGIES No Information ENCOUNTERS Encounter Location Date Diagnosis [facility] [id number] [address] Oct, [facility] [address] [address] Oct, [facility] [address] [address] Sep, [facility] [id number] [address] Sep, Bipolar 1 disorder, depressed, moderate F31.32 [facility] [address] [address] Sep, Bipolar 1 disorder, depressed, moderate F31.32 [facility] [id number] [place] [address] 10807- 7316 Sep, Essential hypertension I10 ; Acquired hypothyroidism E03.9 ; Anxiety F41.9 ; Chronic nausea R11.0 and Irritant contact dermatitis due to plants, except food L24.7 [place] [id number] [place] [address] 31544- 5048 Aug, Bipolar 1 disorder, depressed, moderate F31.32 [place] [address] [address]- 3132 Aug, Bipolar 1 disorder, depressed, moderate F31.32 [place] [address] 37059- 8686 Aug, Bipolar 1 disorder, depressed, moderate F31.32 [place] [address] [address]31- 1302 July, Candidal dermatitis B37.2 [place] [address] 10[address]- 7696 July, Acquired hypothyroidism E03.9 [place] [address] 8[address]59- 7828 July, Bipolar 1 disorder, depressed, moderate F31.32 [facility] [id number] [place] [address] 93805 -6337 July, Seasonal allergies J30.2 [facility] [address] 9[address]68- 9495 July, Bipolar 1 disorder, depressed, moderate F31.32 [facility] [address] 36[address]- 5146 Jun, Pre-diabetes R73.03 [place] [id number] [place] [address] Jun, Bipolar 1 disorder, depressed, moderate F31.32 ; Anxiety F41.9 ; Borderline personality disorder F60.3 ; Other specified abnormal findings of blood chemistry R79.89 and Polysubstance (including opioids) dependence with physiol dependence F19.20 [place] [address] 373373- 5239 Jun, Bipolar 1 disorder, depressed, moderate F31.32 [place] [address] 373376- 6008 May, Bipolar 1 disorder, depressed, moderate F31.32 [place] [address] 373377- 0948 May, Bipolar 1 disorder, depressed, moderate F31.32 [place] [address] [id number]- 0718 May, [place] [address] [address]47[address]10- 9311 May, [place] [address] [id number]- 2914 May, Bipolar 1 disorder, depressed, moderate F31.32 [place] [id number] [place] [address] 62633- 4713 May, Bipolar 1 disorder, depressed, moderate F31.32 [place] [id number] [place] [address] May, Other specified abnormal findings of blood chemistry R79.89 [place] [address] 04715136- 8250 08 May, 2017 Essential hypertension I10 ; Acquired hypothyroidism E03.9 ; Gastroesophageal reflux disease with esophagitis K21.0 ; Hair loss L65.9 ; Hypokalemia, gastrointestinal losses E87.6 ; Pre-diabetes R73.03 ; Candidal dermatitis B37.2 and Pure hypercholesterolemia E78.00 [place] [id number] [place] [address] 83242- 0333 Apr, Bipolar 1 disorder, depressed, moderate F31.32 [place] [address] [address]75- 2681 Apr, Bipolar 1 disorder, depressed, moderate F31.32 [place] [address] 22826- 2907 Apr, Bipolar 1 disorder, depressed, moderate F31.32 and Anxiety F41.9 [facility] [address] [address]1220 Mar, Encounter for immunization Z23 ; Fall, initial encounter W19.XXXA ; Rib pain on left side R07.81 and Left hip pain M25.552 [place] [address] 84822- 3190 Mar, Bipolar 1 disorder, depressed, moderate F31.32 and Anxiety F41.9 [place] [address] 89435- 2613 Mar, Bipolar 1 disorder, depressed, moderate F31.32 ; Anxiety F41.9 ; Borderline personality disorder F60.3 and Polysubstance (including opioids) dependence with physiol dependence F19.20 [place] [id number] [place] [address] 26284- 7697 Mar, Bipolar 1 disorder, depressed, moderate F31.32 and Anxiety F41.9 [facility] [id number] [place] [address] 70481 -8022 Feb, Irritant contact dermatitis, unspecified trigger L24.9 [place] [address] 41841- 4805 Feb, [place] [address] 54125- 8271 Feb, [place] [address] 51909- 9083 14 Feb, 2017 Bipolar 1 disorder, depressed, moderate F31.32 and Anxiety F41.9 [place] [id number] [place] [address]- [address]77 14 Feb, 2017 Acute non-recurrent maxillary sinusitis J01.00 [place] [id number] [place] [address]- 804 Feb, [place] [id number] [place] [address]- 5309 Feb, Bipolar 1 disorder, depressed, moderate F31.32 [place] [address] [place] [address]- [address] 29 Jan, 2017 [place] [id number] [place] [address] Jan, Bipolar 1 disorder, depressed, moderate F31.32 ; Anxiety F41.9 ; Borderline personality disorder F60.3 and Polysubstance (including opioids) dependence with physiol dependence F19.20 [place] [id number] [place] [address] 37705- 0531 27 Jan, 2017 Bipolar 1 disorder, depressed, moderate F31.32 and Anxiety F41.9 [place] [id number] [place] [address] 34813- 6725 20 Jan, 2017 Bipolar 1 disorder, depressed, moderate F31.32 ; Anxiety F41.9 ; Borderline personality disorder F60.3 and Polysubstance (including opioids) dependence with physiol dependence F19.20 [place] [id number] [place] [address] 99685- 7922 13 Jan, 2017 Bipolar 1 disorder, depressed, moderate F31.32 and Anxiety F41.9 [place] [id number] [place] [address] 23 Dec, 2016 Hypokalemia, gastrointestinal losses E87.6 ; GERD ( gastroesophageal reflux disease) K21.9 and Bipolar 1 disorder, depressed, moderate F31.32 [place] [id number] [place] [address] 53849- 7409 Dec, Bipolar 1 disorder, depressed, moderate F31.32 and Anxiety F41.9 [facility] [place] [address] [address] -2839 Dec, [place] [address] 22188- 8977 Dec, [facility] [address] [address] Dec, Fall (on) (from) other stairs and steps, initial encounter W10.8XXA ; Laceration of left lower extremity, initial encounter S81.812A ; Contusion of right knee, initial encounter S80.01XA and Contusion of right shoulder, initial encounter S40.011A [address] [address]- 6697 Dec, Bipolar 1 disorder, depressed, moderate F31.32 ; Anxiety F41.9 ; Borderline personality disorder F60.3 and Polysubstance (including opioids) dependence with physiol dependence F19.[address] 98044- 0699 Dec, Bipolar 1 disorder, depressed, moderate F31.32 and Anxiety F41.[address] 05551- 8232 Dec, [address] 44445- 9673 Dec, Hospital discharge follow-up Z09 ; Nephrolithiasis N20.0 ; Essential hypertension I10 ; Gastroesophageal reflux disease with esophagitis K21.0 and Anxiety F41.[address] 89[address]- 9482 Nov, [facility] [address] [address] 24 Nov, 2016 Dysuria R30.0 and Acute cystitis with hematuria N30.01 [facility] [id number] [place] [address] 91542 -6609 24 Nov, 2016 [facility] [address] [id number]- [address] 19 Nov, 2016 [facility] [address] [address]55- 2612 19 Nov, 2016 Gastroesophageal reflux disease with esophagitis K21.0 ; Hypercholesteremia E78.00 and Acquired hypothyroidism E03.9 [facility] [address] [address]15 18 Nov, 2016 Left wrist pain M25.532 and Contusion of left wrist, initial encounter S60.212A [place] [address] 87665- 9178 18 Nov, 2016 Bipolar 1 disorder, depressed, moderate F31.32 ; Anxiety F41.9 ; Borderline personality disorder F60.3 and Polysubstance (including opioids) dependence with physiol dependence F19.20 [facility] [address] 36259 -8872 15 Nov, 2016 Abdominal pain R10.9 and GERD (gastroesophageal reflux disease) K21.9 [place] [address] 65136- 6438 12 Nov, 2016 Hypokalemia, gastrointestinal losses E87.6 [place] [address] 26350- 0443 11 Nov, 2016 Dehydration E86.0 ; Hypokalemia, gastrointestinal losses E87.6 and Vaginal candidiasis B37.3 [place] [address] 86655- 6018 08 Nov, 2016 Abnormal weight loss R63.4 ; Diarrhea, unspecified R19.7 ; Vomiting, unspecified R11.10 ; Generalized abdominal pain R10.84 and Decreased breath sounds R06.89 [place] [address] 45282- 9608 Oct, Bipolar 1 disorder, depressed, moderate F31.32 and Anxiety F41.9 [place] [address] 373379- 9316 Sep, Bipolar 1 disorder, depressed, moderate F31.32 ; Anxiety F41.9 ; Borderline personality disorder F60.3 and Polysubstance (including opioids) dependence with physiol dependence F19.20 [place] [address] 87940- 0135 Sep, Bipolar 1 disorder, depressed, moderate F31.32 and Anxiety F41.9 [place] [address] 95170- 2428 Sep, Bipolar 1 disorder, depressed, moderate F31.32 [place] [address] 31045- 1101 Sep, Bipolar 1 disorder, depressed, moderate F31.32 and Anxiety F41.9 [facility] [address] 92536 -8009 Sep, Pain of toe of right foot M79.674 [place] [address] 19857- 9726 Sep, [facility] [id number] [place] [address] 68843 -9978 Sep, Cellulitis of right ankle L03.115 [place] [address] 32631- 3391 Sep, Bipolar 1 disorder, depressed, moderate F31.32 and Anxiety F41.9 [place] [address] 19247- 0043 Sep, [place] [address] 67240- 7199 Sep, [place] [address] 10940- 6125 Sep, Bipolar 1 disorder, depressed, moderate F31.32 and Anxiety F41.9 [place] [id number] [place] [address] 82652- 6805 Sep, Accidental spider bite T63.301A [place] [id number] [place] [address] 01075- 5706 Aug, Bipolar 1 disorder, depressed, moderate F31.32 ; Anxiety F41.9 ; Borderline personality disorder F60.3 and Polysubstance (including opioids) dependence with physiol dependence F19.20 [place] [address] 87662- 7282 Aug, [place] [address] 68843- 0195 Aug, Bipolar 1 disorder, depressed, moderate F31.32 and Anxiety F41.9 [place] [address] 93202- 8637 Aug, Pre-diabetes R73.03 ; Acute seasonal allergic rhinitis due to pollen J30.1 ; Hypercholesteremia E78.00 and Nausea R11.0 [place] [id number] [place] [address] 52503- 3268 Aug, [place] [id number] [place] [address] 89562- 9956 Aug, Bipolar 1 disorder, depressed, moderate F31.32 and Anxiety F41.9 [place] [id number] [place] [address] 92712- 4763 Aug, [place] [address] 14655- 8857 Aug, [place] [id number] [place] [address] 37769- 6324 Aug, [place] [id number] [place] [address] 83877- 5411 Aug, Bipolar 1 disorder, depressed, moderate F31.32 and Anxiety F41.9 [facility] [id number] [place] [address] 00632- 7877 Aug, [facility] [id number] [place] [address] 71641 -2362 Aug, Insect bite, initial encounter W57.XXXA and Cellulitis of left lower leg L03.116 [place] [address] 93162- 1856 Aug, Bipolar 1 disorder, depressed, moderate F31.32 and Borderline personality disorder F60.[address] 81507- 5471 July, [place] [id number] [place] [address] 18468- 4126 July, [address] 15451- 1984 July, Encounter for routine adult health examination with abnormal findings Z00.01 ; History of esophageal cancer Z85.01 ; Bipolar 1 disorder, depressed, moderate F31.32 ; Anxiety F41.9 ; Acquired hypothyroidism E03.9 ; Essential hypertension I10 ; Gastroesophageal reflux disease with esophagitis K21.0 and Encounter for immunization Z23 [place] [id number] [place] [address] 54227- 8831 July, Bipolar 1 disorder, depressed, moderate F31.32 and Anxiety F41.9 [facility] [id number] [place] [address] 37807- 6705 July, [id number] [place] [address] 82260- 9251 July, Bipolar 1 disorder, depressed, moderate F31.32 and Anxiety F41.9 [place] [id number] [place] [address] 99356- 5571 July, Bipolar 1 disorder, depressed, moderate F31.32 [place] [address] [place] [address] 04843- 6470 July, Bipolar 1 disorder, depressed, moderate F31.32 and Anxiety F41.9 [facility] [id number] [place] [address]- [address]756 Jun, Bipolar 1 disorder, depressed, moderate F31.32 [facility] [id number] [place] [address] 79447- 2446 Jun, Bipolar 1 disorder, depressed, moderate F31.32 and Borderline personality disorder F60.3 [place] [id number] [place] [address] 36214- 3015 Jun, Bipolar 1 disorder, depressed, moderate F31.32 [place] [id number] [place] [address] 61723- 5346 Jun, Bipolar 1 disorder, depressed, moderate F31.32 [place] [id number] [place] [address] 15889- 0207 May, Bipolar 1 disorder, depressed, moderate F31.32 and Anxiety F41.9 [place] [id number] [place] [address] 06049- 3948 May, Bipolar 1 disorder, depressed, moderate F31.32 and Anxiety F41.9 [place] [address] [place] [address] 42591- 3440 May, Bipolar 1 disorder, depressed, moderate F31.32 and Anxiety F41.9 [place] [address] [place] [address] 34529- 8823 May, Bipolar 1 disorder, depressed, moderate F31.32 and Borderline personality disorder F60.3 [place] [id number] [place] [address] 91174- 9514 14 May, 2016 [place] [id number] [place] [address] 68257- 4229 13 May, 2016 Bipolar 1 disorder, depressed, moderate F31.32 and Anxiety F41.9 [place] [address] [place] [address] 52190- 9195 May, Bipolar 1 disorder, depressed, moderate F31.32 and Anxiety F41.9 [place] [id number] [place] [address] 57762- 1474 May, [place] [id number] [place] [address] 20020- 9500 May, Bipolar 1 disorder, depressed, moderate F31.32 [place] [id number] [place] [address] 56944- 5154 May, Bipolar 1 disorder, depressed, moderate F31.32 and Generalized anxiety disorder F41.1 [place] [id number] [place] [address] 51016- 1941 Apr, Bipolar 1 disorder, depressed, moderate F31.32 and Anxiety F41.9 [place] [id number] [place] [address] 15919- 9505 Apr, [place] [id number] [place] [address] 15796- 8035 Apr, Bipolar 1 disorder, depressed, moderate F31.32 and Anxiety F41.9 [place] [address] [place] [address] 36954- 4234 Apr, Bipolar 1 disorder, depressed, moderate F31.32 and Anxiety F41.9 [place] [address] [place] [address] 59985- 8644 Apr, Bipolar affective disorder, depressed, severe F31.4 and Generalized anxiety disorder F41.1 [place] [id number] [place] [address] 01870- 6962 Mar, Bipolar 1 disorder, depressed, moderate F31.32 and Anxiety F41.9 [facility] [address] [place] [address] 05970- 8335 Mar, Bipolar 1 disorder, depressed, moderate F31.32 and Anxiety F41.9 [facility] [address] [address]- 1565 Mar, Bipolar 1 disorder, mixed, moderate F31.62 [facility] [id number] [place] [address] 67862- 2876 Mar, [facility] [id number] [place] [address] 63217- 0332 Mar, Bipolar 1 disorder, mixed, moderate F31.62 ; Generalized anxiety disorder F41.1 and Other penitentiary (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 Z79.899 [facility] [id number] [place] [address] 11755- 6240 Feb, Bipolar 1 disorder, depressed, moderate F31.32 and Anxiety F41.9 [facility] [id number] [place] [address] 08093- 4199 Feb, Bipolar 1 disorder, depressed, moderate F31.32 and 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 ferry 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 (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 Z79.899 [facility] [id number] [place] [address] 36044- 3496 Feb, [facility] [id number] [place] [address] 94131- 4900 Feb, Bipolar 1 disorder, depressed, moderate F31.32 and Anxiety F41.9 [facility] [address] [place] [address] 89808- 8778 Feb, Bipolar 1 disorder, depressed, moderate F31.32 and Other penitentiary (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 Z79.899 [facility] [address] [place] [address] 83767- 7753 Feb, Bipolar 1 disorder, depressed, moderate F31.32 and Anxiety F41.9 [facility] [id number] [place] [address] 58291- 5606 Dec, Bipolar 1 disorder, depressed, moderate F31.32 and Anxiety F41.9 [facility] [id number] [place] [address]- 2546 Oct, [facility] [address] [facility] [id number] [address] 2546 Oct, [facility] [address] [facility] [id number] [place] [address]- 2546 May, [facility] [address] [facility] [id number] [address]- 2546 May, [facility] [address] [facility] [id number] [address]- 9874 Mar, [facility] [address] [facility] [id number] [address]- 2379 Mar, IMMUNIZATIONS No Known Immunizations SOCIAL HISTORY Never Assessed REASON FOR VISIT Follow-up Depression PLAN OF CARE Activity Details Follow Up 1 Week Reason: Follow-up VITAL SIGNS MEDICATIONS Unknown Medications RESULTS No Results PROCEDURES Procedure Date Ordered Result Body Site [facility] VISIT MENTAL HEALTH ESTAB PT June 01, 2017 Psychotherapy, patient &/family, 30 minutes, established patient June 01, 2017 INSTRUCTIONS MEDICATIONS ADMINISTERED No Known Medications [...] Cancer Head and Neck 2005 Hospitalization History [facility] Psychiatric Admission 2015
--- OUTSIDE RECORDS SUMMARY | 2017-11-25 12:37 | XMS REPORT ---
Author Author GURINDER NORTON Organization [facility] Address [address] [place] [address] Care Team Providers Care Talent Development Specialist Name Role Phone GURINDER NORTON Unavailable PROBLEMS Type Condition ICD9-CM Code FTD60-ES Code Onset Dates Condition Status SNOMED Code Problem Gastroesophageal reflux disease with esophagitis K21.0 Active 899888425 Problem Polysubstance (including opioids) dependence with physiol dependence F19.20 Active 15963036 Problem History of esophageal cancer Z85.01 Active 777997617 Problem Seasonal allergies J30.2 Active 334204092 Problem Pre-diabetes R73.03 Active 252120945 Problem GERD (gastroesophageal reflux disease) K21.9 Active 066193531 Problem Borderline personality disorder F60.3 Active 26068188 Problem Pure hypercholesterolemia E78.00 Active 771112321 Problem Nephrolithiasis N20.0 Active 17157456 Problem STATE HEP A (ADULT) DX V05.3 Active 210774584 Problem Bipolar 1 disorder, depressed, moderate F31.32 Active 83802902 Problem Anxiety F41.9 Active 28932561 Problem Vitamin D insufficiency E55.9 Active 504160034 Problem Essential hypertension I10 Active 01083814 Problem Elevated serum creatinine R79.89 Active 600223287 Problem Acquired hypothyroidism E03.9 Active 810622234 ALLERGIES No Information ENCOUNTERS Encounter Location Date Diagnosis [facility] [id number] [address] Oct, [facility] [address] [address] Oct, [facility] [address] [address] Sep, [facility] [id number] [address] Sep, Bipolar 1 disorder, depressed, moderate F31.32 [facility] [address] [address] Sep, Bipolar 1 disorder, depressed, moderate F31.32 [facility] [id number] [place] [address] 29733- 9548 Sep, Essential hypertension I10 ; Acquired hypothyroidism E03.9 ; Anxiety F41.9 ; Chronic nausea R11.0 and Irritant contact dermatitis due to plants, except food L24.7 [place] [id number] [place] [address] 93207- 5661 Aug, Bipolar 1 disorder, depressed, moderate F31.32 [place] [address] [address]- 2978 Aug, Bipolar 1 disorder, depressed, moderate F31.32 [place] [address] [address]- 78[address] Aug, Bipolar 1 disorder, depressed, moderate F31.32 [place] [address] [address]- [address] July, Candidal dermatitis B37.2 [place] [address] 47[address]- 2164 July, Acquired hypothyroidism E03.9 [place] [address] 44221- 6639 July, Bipolar 1 disorder, depressed, moderate F31.32 [facility] [id number] [place] [address] 36181 -6244 July, Seasonal allergies J30.2 [facility] [address] [address]- 9[address] July, Bipolar 1 disorder, depressed, moderate F31.32 [facility] [address] [address]- 7393 Jun, Pre-diabetes R73.03 [place] [id number] [place] [address] Jun, Bipolar 1 disorder, depressed, moderate F31.32 ; Anxiety F41.9 ; Borderline personality disorder F60.3 ; Other specified abnormal findings of blood chemistry R79.89 and Polysubstance (including opioids) dependence with physiol dependence F19.20 [place] [address] 373761- 7568 Jun, Bipolar 1 disorder, depressed, moderate F31.32 [place] [address] 373765- 8969 May, Bipolar 1 disorder, depressed, moderate F31.32 [place] [address] 373760- 1463 May, Bipolar 1 disorder, depressed, moderate F31.32 [place] [address] [id number]- [address] May, [place] [address] [id number]- 8307 May, [place] [address] [id number]- 5567 May, Bipolar 1 disorder, depressed, moderate F31.32 [facility] [id number] [place] [address] 44294- 9440 May, Bipolar 1 disorder, depressed, moderate F31.32 [facility] [id number] [place] [address] May, Other specified abnormal findings of blood chemistry R79.89 [place] [address] [id number]- 1565 08 May, 2017 Essential hypertension I10 ; Acquired hypothyroidism E03.9 ; Gastroesophageal reflux disease with esophagitis K21.0 ; Hair loss L65.9 ; Hypokalemia, gastrointestinal losses E87.6 ; Pre-diabetes R73.03 ; Candidal dermatitis B37.2 and Pure hypercholesterolemia E78.00 [place] [id number] [place] [address] 90710- 1842 Apr, Bipolar 1 disorder, depressed, moderate F31.32 [place] [address] 8[address]85- 9973 Apr, Bipolar 1 disorder, depressed, moderate F31.32 [place] [address] 17038- 4844 Apr, Bipolar 1 disorder, depressed, moderate F31.32 and Anxiety F41.9 [facility] [address] 98[address] -2272 Mar, Encounter for immunization Z23 ; Fall, initial encounter W19.XXXA ; Rib pain on left side R07.81 and Left hip pain M25.552 [place] [address] 78251- 6775 Mar, Bipolar 1 disorder, depressed, moderate F31.32 and Anxiety F41.9 [place] [address] 96757- 1034 Mar, Bipolar 1 disorder, depressed, moderate F31.32 ; Anxiety F41.9 ; Borderline personality disorder F60.3 and Polysubstance (including opioids) dependence with physiol dependence F19.20 [place] [id number] [place] [address] 86219- 1143 Mar, Bipolar 1 disorder, depressed, moderate F31.32 and Anxiety F41.9 [facility] [id number] [place] [address] 46380 -5860 Feb, Irritant contact dermatitis, unspecified trigger L24.9 [place] [address] 92110- 4643 Feb, [place] [address] 42334- 2042 Feb, [place] [address] 6[address]28- 6650 14 Feb, 2017 Bipolar 1 disorder, depressed, moderate F31.32 and Anxiety F41.9 [place] [id number] [place] [address] 14 Feb, 2017 Acute non-recurrent maxillary sinusitis J01.00 [place] [id number] [place] [address]- 836 Feb, [place] [id number] [place] [address] Feb, Bipolar 1 disorder, depressed, moderate F31.32 [place] [address] [place] [address]- 78[address] 29 Jan, 2017 [place] [id number] [place] [address] Jan, Bipolar 1 disorder, depressed, moderate F31.32 ; Anxiety F41.9 ; Borderline personality disorder F60.3 and Polysubstance (including opioids) dependence with physiol dependence F19.20 [place] [id number] [place] [address] 62131- 8598 27 Jan, 2017 Bipolar 1 disorder, depressed, moderate F31.32 and Anxiety F41.9 [place] [id number] [place] [address] 13777- 6605 20 Jan, 2017 Bipolar 1 disorder, depressed, moderate F31.32 ; Anxiety F41.9 ; Borderline personality disorder F60.3 and Polysubstance (including opioids) dependence with physiol dependence F19.20 [place] [id number] [place] [address] 93377- 6014 13 Jan, 2017 Bipolar 1 disorder, depressed, moderate F31.32 and Anxiety F41.9 [place] [id number] [place] [address] 23 Dec, 2016 Hypokalemia, gastrointestinal losses E87.6 ; GERD ( gastroesophageal reflux disease) K21.9 and Bipolar 1 disorder, depressed, moderate F31.32 [place] [id number] [place] [address] 71489- 2294 Dec, Bipolar 1 disorder, depressed, moderate F31.32 and Anxiety F41.9 [facility] [place] [address] [address] -[address]54 Dec, [place] [address] 85683- 3871 Dec, [facility] [address] [address] Dec, Fall (on) (from) other stairs and steps, initial encounter W10.8XXA ; Laceration of left lower extremity, initial encounter S81.812A ; Contusion of right knee, initial encounter S80.01XA and Contusion of right shoulder, initial encounter S40.011A [address] [address]- [address]3 Dec, Bipolar 1 disorder, depressed, moderate F31.32 ; Anxiety F41.9 ; Borderline personality disorder F60.3 and Polysubstance (including opioids) dependence with physiol dependence F19.[address] 18776- 5999 Dec, Bipolar 1 disorder, depressed, moderate F31.32 and Anxiety F41.[address] 33098- 0348 Dec, [address] [address]959- 0423 Dec, Hospital discharge follow-up Z09 ; Nephrolithiasis N20.0 ; Essential hypertension I10 ; Gastroesophageal reflux disease with esophagitis K21.0 and Anxiety F41.[address] 99909- 8976 Nov, [facility] [address] [address]147 24 Nov, 2016 Dysuria R30.0 and Acute cystitis with hematuria N30.01 [facility] [id number] [place] [address] 37040 -5617 24 Nov, 2016 [facility] [address] [id number]- 6381 19 Nov, 2016 [facility] [address] [address]- 1248 19 Nov, 2016 Gastroesophageal reflux disease with esophagitis K21.0 ; Hypercholesteremia E78.00 and Acquired hypothyroidism E03.9 [facility] [address] [address] 18 Nov, 2016 Left wrist pain M25.532 and Contusion of left wrist, initial encounter S60.212A [place] [address] 08771- 7329 18 Nov, 2016 Bipolar 1 disorder, depressed, moderate F31.32 ; Anxiety F41.9 ; Borderline personality disorder F60.3 and Polysubstance (including opioids) dependence with physiol dependence F19.20 [facility] [address] [address]0588 15 Nov, 2016 Abdominal pain R10.9 and GERD (gastroesophageal reflux disease) K21.9 [place] [address] 05686- 4453 12 Nov, 2016 Hypokalemia, gastrointestinal losses E87.6 [place] [address] 55730- 2495 11 Nov, 2016 Dehydration E86.0 ; Hypokalemia, gastrointestinal losses E87.6 and Vaginal candidiasis B37.3 [place] [address] 83594- 8768 08 Nov, 2016 Abnormal weight loss R63.4 ; Diarrhea, unspecified R19.7 ; Vomiting, unspecified R11.10 ; Generalized abdominal pain R10.84 and Decreased breath sounds R06.89 [place] [address] 80519- 4733 Oct, Bipolar 1 disorder, depressed, moderate F31.32 and Anxiety F41.9 [place] [address] 373768- 8821 Sep, Bipolar 1 disorder, depressed, moderate F31.32 ; Anxiety F41.9 ; Borderline personality disorder F60.3 and Polysubstance (including opioids) dependence with physiol dependence F19.20 [place] [address] 59406- 5692 Sep, Bipolar 1 disorder, depressed, moderate F31.32 and Anxiety F41.9 [place] [address] 81905- 6575 Sep, Bipolar 1 disorder, depressed, moderate F31.32 [place] [address] 83896- 9299 Sep, Bipolar 1 disorder, depressed, moderate F31.32 and Anxiety F41.9 [facility] [address] [address] -[address]80 Sep, Pain of toe of right foot M79.674 [place] [address] 17217- 9312 Sep, [facility] [id number] [place] [address] 74133 -8560 Sep, Cellulitis of right ankle L03.115 [place] [address] 24555- 9906 Sep, Bipolar 1 disorder, depressed, moderate F31.32 and Anxiety F41.9 [place] [address] 83081- 4195 Sep, [place] [address] 37837- 8674 Sep, [place] [address] 45775- 7237 Sep, Bipolar 1 disorder, depressed, moderate F31.32 and Anxiety F41.9 [place] [id number] [place] [address] 35742- 6778 Sep, Accidental spider bite T63.301A [place] [id number] [place] [address] 75287- 9185 Aug, Bipolar 1 disorder, depressed, moderate F31.32 ; Anxiety F41.9 ; Borderline personality disorder F60.3 and Polysubstance (including opioids) dependence with physiol dependence F19.20 [place] [address] 29690- 5865 Aug, [place] [address] 49950- 0394 Aug, Bipolar 1 disorder, depressed, moderate F31.32 and Anxiety F41.9 [place] [address] 11948- 8990 Aug, Pre-diabetes R73.03 ; Acute seasonal allergic rhinitis due to pollen J30.1 ; Hypercholesteremia E78.00 and Nausea R11.0 [place] [id number] [place] [address] 05106- 9229 Aug, [place] [id number] [place] [address] 42086- 7927 Aug, Bipolar 1 disorder, depressed, moderate F31.32 and Anxiety F41.9 [place] [id number] [place] [address] 04188- 7160 Aug, [place] [address] 16902- 5505 Aug, [place] [id number] [place] [address] 59479- 0477 Aug, [place] [id number] [place] [address] 35443- 4743 Aug, Bipolar 1 disorder, depressed, moderate F31.32 and Anxiety F41.9 [facility] [id number] [place] [address] 39893- 8486 Aug, [facility] [id number] [place] [address] 32779 -0003 Aug, Insect bite, initial encounter W57.XXXA and Cellulitis of left lower leg L03.116 [place] [address] 28428- 0303 Aug, Bipolar 1 disorder, depressed, moderate F31.32 and Borderline personality disorder F60.[address] 02215- 9567 July, [place] [id number] [place] [address] 43816- 8595 July, [address] 66451- 3875 July, Encounter for routine adult health examination with abnormal findings Z00.01 ; History of esophageal cancer Z85.01 ; Bipolar 1 disorder, depressed, moderate F31.32 ; Anxiety F41.9 ; Acquired hypothyroidism E03.9 ; Essential hypertension I10 ; Gastroesophageal reflux disease with esophagitis K21.0 and Encounter for immunization Z23 [place] [id number] [place] [address] 04586- 1008 July, Bipolar 1 disorder, depressed, moderate F31.32 and Anxiety F41.9 [facility] [id number] [place] [address] 32882- 9698 July, [place] [id number] [place] [address] 24359- 8335 July, Bipolar 1 disorder, depressed, moderate F31.32 and Anxiety F41.9 [place] [id number] [place] [address] 35548- 9474 July, Bipolar 1 disorder, depressed, moderate F31.32 [place] [id number] [place] [address] 16880- 6539 July, Bipolar 1 disorder, depressed, moderate F31.32 and Anxiety F41.9 [facility] [id number] [place] [address]- [address]36 Jun, Bipolar 1 disorder, depressed, moderate F31.32 [facility] [id number] [place] [address] 49070- 6786 Jun, Bipolar 1 disorder, depressed, moderate F31.32 and Borderline personality disorder F60.3 [place] [id number] [place] [address] 27369- 1499 Jun, Bipolar 1 disorder, depressed, moderate F31.32 [place] [id number] [place] [address] 44139- 4083 Jun, Bipolar 1 disorder, depressed, moderate F31.32 [place] [id number] [place] [address] 68399- 6339 May, Bipolar 1 disorder, depressed, moderate F31.32 and Anxiety F41.9 [place] [id number] [place] [address] 68223- 0703 May, Bipolar 1 disorder, depressed, moderate F31.32 and Anxiety F41.9 [place] [address] [place] [address] 48062- 0413 May, Bipolar 1 disorder, depressed, moderate F31.32 and Anxiety F41.9 [place] [address] [place] [address] 91210- 0369 May, Bipolar 1 disorder, depressed, moderate F31.32 and Borderline personality disorder F60.3 [place] [id number] [place] [address] 33836- 4560 14 May, 2016 [place] [id number] [place] [address] 49391- 6800 13 May, 2016 Bipolar 1 disorder, depressed, moderate F31.32 and Anxiety F41.9 [place] [address] [place] [address] 84314- 9760 May, Bipolar 1 disorder, depressed, moderate F31.32 and Anxiety F41.9 [place] [id number] [place] [address] 01421- 4685 May, [place] [id number] [place] [address] 16343- 1148 May, Bipolar 1 disorder, depressed, moderate F31.32 [place] [id number] [place] [address] 69527- 9827 May, Bipolar 1 disorder, depressed, moderate F31.32 and Generalized anxiety disorder F41.1 [place] [id number] [place] [address] 98713- 6372 Apr, Bipolar 1 disorder, depressed, moderate F31.32 and Anxiety F41.9 [place] [id number] [place] [address] 95737- 1495 Apr, [place] [id number] [place] [address] 29026- 7809 Apr, Bipolar 1 disorder, depressed, moderate F31.32 and Anxiety F41.9 [place] [address] [place] [address] 54077- 3355 Apr, Bipolar 1 disorder, depressed, moderate F31.32 and Anxiety F41.9 [place] [address] [place] [address] 83639- 0859 Apr, Bipolar affective disorder, depressed, severe F31.4 and Generalized anxiety disorder F41.1 [place] [id number] [place] [address] 18047- 2562 Mar, Bipolar 1 disorder, depressed, moderate F31.32 and Anxiety F41.9 [facility] [address] [place] [address] 04458- 5010 Mar, Bipolar 1 disorder, depressed, moderate F31.32 and Anxiety F41.9 [facility] [address] [address]- 0717 Mar, Bipolar 1 disorder, mixed, moderate F31.62 [facility] [address] [place] [address] 86194- 6119 Mar, [facility] [id number] [place] [address] 86542- 6651 Mar, Bipolar 1 disorder, mixed, moderate F31.62 ; Generalized anxiety disorder F41.1 and Other usp (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 Z79.899 [facility] [id number] [place] [address] 99314- 7885 Feb, Bipolar 1 disorder, depressed, moderate F31.32 and Anxiety F41.9 [facility] [id number] [place] [address] 01577- 5277 Feb, Bipolar 1 disorder, depressed, moderate F31.32 and 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 [facility] [id number] [place] [address] 63845- 0558 Feb, [facility] [id number] [place] [address] 12047- 6566 Feb, Bipolar 1 disorder, depressed, moderate F31.32 and Anxiety F41.9 [facility] [address] [place] [address] 34988- 1763 Feb, Bipolar 1 disorder, depressed, moderate F31.32 and Other usp (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 Z79.899 [facility] [address] [place] [address] 01614- 1092 Feb, Bipolar 1 disorder, depressed, moderate F31.32 and Anxiety F41.9 [facility] [address] [place] [address] 00226- 0111 Dec, Bipolar 1 disorder, depressed, moderate F31.32 and Anxiety F41.9 [facility] [id number] [place] [address]- 2546 Oct, [facility] [address] [facility] [id number] [address] 2545 Oct, [facility] [address] [facility] [id number] [address]- 2546 May, [facility] [address] [facility] [id number] [place] [address]- 2546 May, [facility] [address] [facility] [id number] [place] [address]- 5322 Mar, [facility] [address] [facility] [id number] [place] [address]- 2288 Mar, IMMUNIZATIONS No Known Immunizations SOCIAL HISTORY Never Assessed REASON FOR VISIT PLAN OF CARE VITAL SIGNS MEDICATIONS Unknown [...] and Neck 2004 Hospitalization History [facility] Psychiatric Admission 2015
[2017-11-25 12:55] VITALS: BP 112/67
[2017-11-25 12:57] LABS: ALANINE AMINOTRANSFERASE 14 U/L (0-55); ALBUMIN 4.5 GM/DL (3.2-4.5); ALKALINE PHOSPHATASE 67 U/L (40-136); BILIRUBIN,TOTAL 0.5 MG/DL (0.1-1.0); BUN/CREATININE RATIO 11; CALCIUM 9.9 MG/DL (8.5-10.1); CARBON DIOXIDE 25 MMOL/L (21-32); CHLORIDE 104 MMOL/L (98-107); CREATININE SERUM 0.84 MG/DL (0.60-1.30); GFR ESTIMATED > 60; GLUCOSE 100 MG/DL (70-105); MAGNESIUM 2.5 MG/DL (1.8-2.4); POTASSIUM 3.8 MMOL/L (3.6-5.0); SODIUM 139 MMOL/L (135-145); TOTAL PROTEIN 7.2 GM/DL (6.4-8.2)
--- NOTE | 2017-11-25 12:57 | Diagnostic Imaging Report ---
INDICATION: Chest pain radiating into the back and left arm. FINDINGS: Upright portable chest shows normal heart size and vascularity. There is right basilar discoid atelectasis. There is no effusion or pneumothorax. IMPRESSION: Right basilar discoid atelectasis. Besides the atelectasis, there is no change from a prior study from 03/27/2015. Dictated by: Dictated on workstation # [id number]
[2017-11-25] MEDS ORDERED: KETOROLAC 30 MG/ML VIAL IVP ONE (13:00)
[2017-11-25 13:03] LABS: MYOGLOBIN SERUM 45.4 NG/ML (10.0-92.0)
--- OUTSIDE RECORDS SUMMARY | 2017-11-25 13:18 | XMS REPORT | Continuity of Care Document ---
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 12/05/2014 Ot 784.0 12/05/2014 Ot V10.21 12/05/2014 Ot V12.51 12/05/2014 Ot V58.69 12/05/2014 Ot V67.1 12/05/2014 Ot V67.2 12/05/2014 Ot 780.4 12/05/2014 Ot 784.0 12/05/2014 PREM ESTEVEZ RECONSTRUCTIVE DENTIST Ot 195.0 12/05/2014 VIRA ABRAHAM RECONSTRUCTIVE DENTIST Ot V76.12 12/05/2014 Ot V68.01 12/05/2014 Ot V82.89 12/05/2014 JASON BENITEZ N Ot V10.21 12/05/2014 ELIJASON FULTON N Ot V12.51 12/05/2014 ELIJASON FULTON N Ot V58.69 12/05/2014 JASON BENITEZ N Ot V67.1 12/05/2014 JASON BENITEZ N Ot V67.2 12/05/2014 VIRA ABRAHAM RECONSTRUCTIVE DENTIST Ot 729.1 12/05/2014 VIRA ABRAHAM RECONSTRUCTIVE DENTIST Ot 784.0 12/05/2014 VIRA ABRAHAM RECONSTRUCTIVE DENTIST Ot 787.02 12/05/2014 VIRA ABRAHAM RECONSTRUCTIVE DENTIST Ot 919.4 12/05/2014 VIRA ABRAHAM RECONSTRUCTIVE DENTIST Ot E000.8 12/05/2014 VIRA ABRAHAM RECONSTRUCTIVE DENTIST Ot E906.4 12/05/2014 LANDY LEOS, ASTON Andersen Ot 786.09 12/05/2014 LANDY LEOS, ASTON Andersen Ot 787.20 12/05/2014 PREM ESTEVEZ RECONSTRUCTIVE DENTIST Ot V10.21 12/05/2014 PREM ESTEVEZ RECONSTRUCTIVE DENTIST Ot V12.51 12/05/2014 PREM ESTEVEZ RECONSTRUCTIVE DENTIST Ot V58.69 12/05/2014 PREM ESTEVEZ S RECONSTRUCTIVE DENTIST Ot V67.1 12/05/2014 PREM ESTEVEZ S RECONSTRUCTIVE DENTIST Ot V67.2 12/05/2014 PREM ESTEVEZ S RECONSTRUCTIVE DENTIST Ot 530.3 12/05/2014 PREM ESTEVEZ S RECONSTRUCTIVE DENTIST Ot 780.4 12/05/2014 PREM ESTEVEZ S RECONSTRUCTIVE DENTIST Ot 784.0 12/05/2014 PREM ESTEVEZ S RECONSTRUCTIVE DENTIST Ot V10.21 12/05/2014 PREM ESTEVEZ S RECONSTRUCTIVE DENTIST Ot V12.51 12/05/2014 PREM ESTEVEZ S RECONSTRUCTIVE DENTIST Ot V58.69 12/05/2014 PREM ESTEVEZ RECONSTRUCTIVE DENTIST Ot V67.1 12/05/2014 PREM ESTEVEZ RECONSTRUCTIVE DENTIST Ot V67.2 12/05/2014 PREM ESTEVEZ RECONSTRUCTIVE DENTIST Ot 195.0 12/05/2014 PREM ESTEVEZ RECONSTRUCTIVE DENTIST Ot 780.4 12/05/2014 PREM ESTEVEZ RECONSTRUCTIVE DENTIST Ot 784.0 12/05/2014 PREM ESTEVEZ RECONSTRUCTIVE DENTIST Ot V12.54 12/05/2014 VIRA ABRAHAM RECONSTRUCTIVE DENTIST Ot 719.41 12/05/2014 VIRA ABRAHAM RECONSTRUCTIVE DENTIST Ot E000.8 12/05/2014 VIRA ABRAHAM RECONSTRUCTIVE DENTIST Ot E849.0 12/05/2014 VIRA ABRAHAM RECONSTRUCTIVE DENTIST Ot E888.9 12/05/2014 DEEPAK LEOS, JAJA Rushing Ot V76.12 12/05/2014 SHWETA DPM, ERLIN Q Ot 735.0 12/05/2014 SHWETA DPM, ERLIN Q Ot V72.84 12/05/2014 SHWETA DPM, ERLIN Q Ot V74.8 12/05/2014 JASON BENITEZ Ot V10.21 12/05/2014 ELIJASON FULTON N Ot V12.51 12/05/2014 JASON BENITEZ N Ot V58.69 12/05/2014 JASON BENITEZ N Ot V67.1 12/05/2014 ELIJASON FULTON N Ot V67.2 12/05/2014 Ot 272.0 12/05/2014 Ot 300.00 12/05/2014 Ot 530.3 12/05/2014 Ot 530.81 12/05/2014 Ot V58.69 12/05/2014 NATHALIE JACOBSEN MD Ot 272.0 12/05/2014 DELMAR LEOS, NATHALIE King Ot 300.00 12/05/2014 NATHALIE JACOBSEN MD Ot 530.3 12/05/2014 NATHALIE JACOBSEN MD Ot 530.81 12/05/2014 NATHALIE JACOBSEN MD Ot 728.87 12/05/2014 NATHALIE JACOBSEN MD Ot 781.94 12/05/2014 NATHALIE JACOBSEN MD Ot 784.59 12/05/2014 NATHALIE JACOBSEN MD Ot V58.69 12/05/2014 VIRA ABRAHAM RECONSTRUCTIVE DENTIST Ot 729.5 12/05/2014 PREM ESTEVEZ RECONSTRUCTIVE DENTIST Ot V10.21 12/05/2014 PREM ESTEVEZ RECONSTRUCTIVE DENTIST Ot V12.51 12/05/2014 PREM ESTEVEZ RECONSTRUCTIVE DENTIST Ot V58.69 12/05/2014 PREM ESTEVEZ S RECONSTRUCTIVE DENTIST Ot V67.1 12/05/2014 PREM ESTEVEZ S RECONSTRUCTIVE DENTIST Ot V67.2 12/05/2014 PREM ESTEVEZ S RECONSTRUCTIVE DENTIST Ot 161.1 12/05/2014 PREM ESTEVEZ RECONSTRUCTIVE DENTIST Ot 728.87 12/05/2014 PREM ESTEVEZ RECONSTRUCTIVE DENTIST Ot 780.4 12/05/2014 BLOSSOM HURD APRN Ot 786.2 12/05/2014 DELMAR LEOS, NATHALIE King Ot 272.0 12/05/2014 DELMAR LEOS, NATHALIE King Ot 300.00 12/05/2014 DELMAR LEOS, NATHALIE King Ot 530.3 12/05/2014 DELMAR LEOS, NATHALIE J Ot 530.81 12/05/2014 NATHALIE JACOBSEN MD Ot V58.69 12/05/2014 VIRA ABRAHAM RECONSTRUCTIVE DENTIST Ot 719.41 12/09/2014 JAJA SOTELO MD Ot A41.9 12/09/2014 JAJA SOTELO MD Ot E78.0 PURE HYPERCHOLESTEROLEMIA 12/09/2014 JAJA SOTELO MD Ot E78.5 HYPERLIPIDEMIA, UNSPECIFIED 12/09/2014 JAJA SOTELO MD Ot F31.9 BIPOLAR DISORDER, UNSPECIFIED 12/09/2014 JAJA SOTELO MD Ot F41.9 ANXIETY DISORDER, UNSPECIFIED 12/09/2014 JAJA SOTELO MD Ot I10 ESSENTIAL (PRIMARY) HYPERTENSION 12/09/2014 JAJA SOTELO MD Ot I95.9 HYPOTENSION, UNSPECIFIED 12/09/2014 JAJA SOTELO MD Ot K52.9 NONINFECTIVE GASTROENTERITIS AND COLITIS 12/09/2014 JAJA SOTELO MD Ot M19.90 UNSPECIFIED OSTEOARTHRITIS, UNSPECIFIED 12/09/2014 JAJA SOTELO MD Ot M79.7 FIBROMYALGIA 12/09/2014 JAJA SOTELO MD Ot N28.9 DISORDER OF KIDNEY AND URETER, UNSPECIFI 12/09/2014 JAJA SOTELO MD Ot N39.0 URINARY TRACT INFECTION, SITE NOT SPECIF 12/09/2014 JAJA SOTELO MD Ot R74.0 NONSPEC ELEV OF LEVELS OF TRANSAMNS LA 12/09/2014 JAJA SOTELO MD Ot T46.6X5A ADVERSE EFFECT OF ANTIHYPERLIP AND ANTIA 12/09/2014 JAJA SOTELO MD Ot Z79.899 OTHER LONGTERM (CURRENT) DRUG THERAPY 12/09/2014 JAJA SOTELO MD Ot 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, 12/09/2014 JAJA SOTELO MD Ot Z87.19 PERSONAL HISTORY OF OTHER DISEASES OF TH 12/09/2014 JAJA SOTELO MD Ot Z90.49 ACQUIRED ABSENCE OF OTHER SPECIFIED PART 12/09/2014 JAJA SOTELO MD Ot Z92.21 PERSONAL HISTORY OF ANTINEOPLASTIC CHEMO 12/09/2014 JAJA SOTELO MD Ot Z92.3 PERSONAL HISTORY OF IRRADIATION 12/27/2014 MARTHA LEE APRN Ot R10.9 UNSPECIFIED ABDOMINAL PAIN 01/05/2015 JAJA SOTLEO MD Ot R10.9 01/05/2015 JAJA SOTELO MD Ot R74.8 01/21/2015 Ot V55.1 01/21/2015 Ot 785.1 01/21/2015 Ot 786.50 01/21/2015 Ot 396.3 01/21/2015 Ot 785.1 01/21/2015 Ot 786.50 01/21/2015 Ot 780.79 01/21/2015 Ot 785.1 01/21/2015 Ot 786.59 01/21/2015 Ot 786.2 01/21/2015 Ot 722.52 01/21/2015 Ot 959.19 01/21/2015 Ot 959.6 01/21/2015 Ot E000.8 01/21/2015 Ot E849.0 01/21/2015 Ot E888.9 01/21/2015 Ot 518.0 01/21/2015 Ot 786.50 01/21/2015 Ot 161.1 01/21/2015 Ot 611.72 01/21/2015 Ot V76.12 01/21/2015 Ot 729.5 01/21/2015 Ot V12.51 01/21/2015 Ot 611.72 01/21/2015 Ot 729.5 01/21/2015 Ot V12.51 01/21/2015 Ot 610.3 01/21/2015 Ot 611.3 01/21/2015 Ot 161.1 01/21/2015 Ot 998.12 01/21/2015 Ot 625.9 01/21/2015 Ot 719.45 01/21/2015 Ot 721.3 01/21/2015 Ot 793.80 01/21/2015 Ot V10.21 01/21/2015 Ot V12.51 01/21/2015 Ot V58.69 01/21/2015 Ot V67.1 01/21/2015 Ot V67.2 01/24/2015 CAROLANN HARTMAN Ot F17.211 NICOTINE DEPENDENCE, CIGARETTES, IN [place] 01/24/2015 CAROLANN HARTMAN Ot F31.9 BIPOLAR DISORDER, UNSPECIFIED 01/24/2015 CAROLANN HARTMAN Ot 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 01/24/2015 CAROLANN HARTMAN Ot R45.851 SUICIDAL IDEATIONS 01/24/2015 CAROLANN HARTMAN Ot Z63.8 OTHER SPECIFIED PROBLEMS RELATED TO PRIM 03/27/2015 JTAIN LEOS, DAVID Bazzi Ot M94.0 CHONDROCOSTAL JUNCTION SYNDROME [TIETZE] 04/23/2015 MARTHA LEE APRN Ot K52.9 NONINFECTIVE GASTROENTERITIS AND COLITIS 04/23/2015 MARTHA LEE APRN Ot M76.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, RIGHT LEG 04/23/2015 MARTHA LEE APRN Ot R11.10 VOMITING, UNSPECIFIED 05/03/2015 ORENDER DO, MUSTAPHA S Ot F31.9 BIPOLAR DISORDER, UNSPECIFIED 05/03/2015 ORENDER DO, MUSTAPHA S Ot T50.902A POISONING BY UNSP DRUG/MEDS/BIOL SUBST, 05/18/2015 LIA HELMS APRN Ot M25.551 05/18/2015 LIA HELMS APRN Ot M25.561 06/09/2015 LIA HELMS APRN Ot M25.551 06/09/2015 LIA HELMS APRN Ot M25.561 06/09/2015 LIA HELMS SOCIAL WORK ADMINISTRATOR Ot M25.551 06/09/2015 LIA HELMS SOCIAL WORK ADMINISTRATOR Ot M25.561 06/22/2015 LIA HELMS SOCIAL WORK ADMINISTRATOR Ot R06.02 SHORTNESS OF BREATH 06/23/2015 JACINTA LEOS, BROCK T Ot S60.221A CONTUSION OF RIGHT HAND, INITIAL ENCOUNT 06/23/2015 JACINTA LEOS, BROCK T Ot W22.03XA WALKED INTO FURNITURE, INITIAL ENCOUNTER 06/23/2015 JACINTA LEOS, BROCK T Ot Y92.[address] IN [facility] NON[facility] (PRIVATE 06/23/2015 BROCK WORKMAN MD T Ot Y99.8 OTHER EXTERNAL CAUSE STATUS 06/24/2015 BROCK WORKMAN MD T Ot S60.221A CONTUSION OF RIGHT HAND, INITIAL ENCOUNT 06/24/2015 TEJAS WORKMAN MDUA T Ot W22.03XA WALKED INTO FURNITURE, INITIAL ENCOUNTER 06/24/2015 BROCK WORKMAN MD T Ot Y92.[address] [facility]2015 JACINTA LEOS, BROCK T Ot Y99.8 OTHER EXTERNAL CAUSE STATUS 06/29/2015 JACINTA LEOS, BROCK T Ot S60.221A CONTUSION OF RIGHT HAND, INITIAL ENCOUNT 06/29/2015 BROCK WORKMAN MD T Ot W22.03XA WALKED INTO FURNITURE, INITIAL ENCOUNTER 06/29/2015 BROCK WORKMAN MD T Ot Y92.[address] [facility] 06/29/2015 BROCK WORKMAN MD T Ot Y99.8 OTHER EXTERNAL CAUSE STATUS 07/09/2015 LIA HELMS SOCIAL WORK ADMINISTRATOR Ot R06.02 SHORTNESS OF BREATH 07/27/2015 LIA HELMS SOCIAL WORK ADMINISTRATOR Ot R00.2 PALPITATIONS 07/27/2015 LIA HELMS SOCIAL WORK ADMINISTRATOR Ot R06.02 SHORTNESS OF BREATH 08/05/2015 LIA HELMS SOCIAL WORK ADMINISTRATOR Ot R00.2 PALPITATIONS 08/05/2015 LIA HELMS SOCIAL WORK ADMINISTRATOR Ot R06.02 SHORTNESS OF BREATH 08/07/2015 NATHALIE JACOBSEN MD Ot 272.0 PURE HYPERCHOLESTEROLEM 08/07/2015 NATHALIE JACOBSEN MD Ot 300.00 ANXIETY STATE NOS 08/07/2015 NATHALIE JACOBSEN MD Ot 530.3 ESOPHAGEAL STRICTURE 08/07/2015 NATHALIE JACOBSEN MD Ot 530.81 ESOPHAGEAL REFLUX 08/07/2015 NATHALIE JACOBSEN MD Ot V58.69 OTH MED,LT,CURRENT USE 08/07/2015 DAVID STEINER MD Ot L29.9 PRURITUS, UNSPECIFIED 08/07/2015 DAVID STEINER MD Ot T50.8X5A ADVERSE EFFECT OF DIAGNOSTIC AGENTS, INI 08/07/2015 DAVID STEINER MD Ot Y92.[address] [facility] 08/10/2015 DAVID STEINER MD, Ot L29.9 PRURITUS, UNSPECIFIED 08/10/2015 DAVID STEINER MD Ot T50.8X5A ADVERSE EFFECT OF DIAGNOSTIC AGENTS, INI 08/10/2015 DAVID STEINER MD Ot Y92.[address] IN [facility] PLACE 08/10/2015 ASTON BILL MD Ot R49.0 DYSPHONIA 08/10/2015 ASTON BILL MD Ot 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, 08/13/2015 ASTON BILL MD Ot R49.0 DYSPHONIA 08/14/2015 ASTON BILL MD Ot R06.02 SHORTNESS OF BREATH 08/14/2015 ASTON BILL MD Ot R49.0 DYSPHONIA 08/14/2015 ASTON BILL MD Ot 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, 09/01/2015 ASTON BILL MD Ot R06.02 SHORTNESS OF BREATH 09/01/2015 ASTON BILL MD Ot R49.0 DYSPHONIA 09/01/2015 ASTON BILL MD Ot 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, 09/04/2015 Ot 719.41 JOINT PAIN- SHLDER 09/04/2015 Ot 722.4 CERVICAL DISC DEGEN 09/04/2015 Ot 786.50 CHEST PAIN NOS 09/04/2015 Ot 959.9 INJURY-SITE NOS 09/04/2015 Ot E000.8 OTHER EXTERNAL CAUSE STATUS 09/04/2015 Ot E819.9 TRAFFIC ACC NOS-PERS NOS 09/04/2015 Ot 719.41 JOINT PAIN- SHLDER 09/04/2015 Ot 722.4 CERVICAL DISC DEGEN 09/04/2015 Ot 786.50 CHEST PAIN NOS 09/04/2015 Ot 959.9 INJURY-SITE NOS 09/04/2015 Ot E000.8 OTHER EXTERNAL CAUSE STATUS 09/04/2015 Ot E819.9 TRAFFIC ACC NOS-PERS NOS 09/09/2015 LANDY LEOS, ASTON Andersen Ot R49.0 DYSPHONIA 09/09/2015 LANDY LEOS, ASTON Andersen Ot 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, 09/14/2015 ASTON BILL MD Ot R06.02 SHORTNESS OF BREATH 09/14/2015 ASTON BILL MD Ot R49.0 DYSPHONIA 09/14/2015 ASTON BILL MD Ot 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, 09/24/2015 LIA HELMS SOCIAL WORK ADMINISTRATOR Ot R00.2 PALPITATIONS 09/24/2015 LIA HELMS SOCIAL WORK ADMINISTRATOR Ot R06.02 SHORTNESS OF BREATH 01/04/2016 Ot 719.41 JOINT PAIN- SHLDER 01/04/2016 Ot 722.4 CERVICAL DISC DEGEN 01/04/2016 Ot 786.50 CHEST PAIN NOS 01/04/2016 Ot 959.9 INJURY-SITE NOS 01/04/2016 Ot E000.8 OTHER EXTERNAL CAUSE STATUS 01/04/2016 Ot E819.9 TRAFFIC ACC NOS-PERS NOS 04/19/2016 Ot V10.21 HX- LARYNGEAL MALIGNANCY 04/19/2016 Ot V12.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 04/19/2016 Ot V58.69 OTH MED,LT, CURRENT USE 04/19/2016 Ot V67.1 RADIOTHERAPY FOLLOW-UP 04/19/2016 Ot V67.2 CHEMOTHERAPY FOLLOW-UP 04/19/2016 Ot 719.41 JOINT PAIN- SHLDER 04/19/2016 Ot 722.4 CERVICAL DISC DEGEN 04/19/2016 Ot 786.50 CHEST PAIN NOS 04/19/2016 Ot 959.9 INJURY-SITE NOS 04/19/2016 Ot E000.8 OTHER EXTERNAL CAUSE STATUS 04/19/2016 Ot E819.9 TRAFFIC ACC NOS-PERS NOS 04/19/2016 Ot V10.21 HX- LARYNGEAL MALIGNANCY 04/19/2016 Ot V12.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 04/19/2016 Ot V58.69 OTH MED,LT, CURRENT USE 04/19/2016 Ot V67.1 RADIOTHERAPY FOLLOW-UP 04/19/2016 Ot V67.2 CHEMOTHERAPY FOLLOW-UP 04/19/2016 Ot 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 04/19/2016 Ot V10.21 HX- LARYNGEAL MALIGNANCY 04/19/2016 Ot V12.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 04/19/2016 Ot V58.69 OTH MED,LT, CURRENT USE 04/19/2016 Ot V67.1 RADIOTHERAPY FOLLOW-UP 04/19/2016 Ot V67.2 CHEMOTHERAPY FOLLOW-UP 04/19/2016 Ot 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 04/19/2016 Ot 562.10 DIVERTICULOSIS COLON (W/O MENT OF HEMORR 04/19/2016 Ot V76.12 OTH SCREEN MAMMO-MALIGN NEOPLASM OF BERNABE 04/19/2016 Ot 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 04/19/2016 Ot 528.9 ORAL SOFT TISSUE DIS NEC 04/19/2016 Ot 530.3 ESOPHAGEAL STRICTURE 04/19/2016 Ot 585.3 CHRONIC KIDNEY DISEASE, STAGE III (MODER 04/19/2016 Ot V12.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 04/19/2016 Ot V15.3 HX OF IRRADIATION 04/19/2016 Ot V58.61 ANTICOAGULANTS,LT,CURRENT USE 04/19/2016 Ot V58.69 OTH MED,LT, CURRENT USE 04/19/2016 Ot V87.41 PERSONAL HISTORY OF ANTINEOPLASTIC CHEMO 04/19/2016 Ot V54.01 ENCNTR FOR REMOVAL OF INTERNAL FIXATION 04/19/2016 Ot V72.84 EXAM PRE- OPERATIVE NOS 04/19/2016 Ot 560.9 INTESTINAL OBSTRUCT NOS 04/19/2016 Ot 562.11 DIVERTICULITIS COLON (W/O MENT OF HEMORR 04/19/2016 Ot V72.63 PRE- PROCEDURAL LABORATORY EXAMINATION 04/19/2016 Ot V74.8 SCREEN- BACTERIAL DIS NEC 04/19/2016 Ot 789.00 ABDOMINAL PAIN, UNSPECIFIED SITE 04/19/2016 Ot 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 04/19/2016 Ot 780.2 SYNCOPE AND COLLAPSE 04/19/2016 Ot V10.03 HX- ESOPHAGEAL MALIGNANCY 04/19/2016 Ot V72.84 EXAM PRE- OPERATIVE NOS 04/19/2016 Ot 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 04/19/2016 Ot 789.00 ABDOMINAL PAIN, UNSPECIFIED SITE 04/19/2016 Ot V12.79 PERSONAL HISTORY OTH SPEC DIGESTIVE SYST 04/19/2016 Ot 530.3 ESOPHAGEAL STRICTURE 04/19/2016 Ot 780.4 DIZZINESS AND GIDDINESS 04/19/2016 Ot 784.0 HEADACHE 04/19/2016 Ot V10.21 HX- LARYNGEAL MALIGNANCY 04/19/2016 Ot V12.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 04/19/2016 Ot V58.69 OTH MED,LT, CURRENT USE 04/19/2016 Ot V67.1 RADIOTHERAPY FOLLOW-UP 04/19/2016 Ot V67.2 CHEMOTHERAPY FOLLOW-UP 04/19/2016 Ot 780.4 DIZZINESS AND GIDDINESS 04/19/2016 Ot 784.0 HEADACHE 04/19/2016 PREM ESTEVEZ RECONSTRUCTIVE DENTIST Ot 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 04/19/2016 VIRA ABRAHAM RECONSTRUCTIVE DENTIST Ot V76.12 OTH SCREEN MAMMO-MALIGN NEOPLASM OF BERNABE 04/19/2016 Ot V68.01 DISABILITY EXAMINATION 04/19/2016 Ot V82.89 SCREEN FOR OTH SPECIF CONDITIONS 04/19/2016 JASON BENITEZ Ot V10.21 HX-LARYNGEAL MALIGNANCY 04/19/2016 JASON BENITEZ Ot V12.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 04/19/2016 JASON BENITEZ Ot V58.69 OTH MED,LT,CURRENT USE 04/19/2016 JASON BENITEZ Ot V67.1 RADIOTHERAPY FOLLOW-UP 04/19/2016 JASON BENITEZ Ot V67.2 CHEMOTHERAPY FOLLOW-UP 04/19/2016 VIRA ABRAHAM RECONSTRUCTIVE DENTIST Ot 729.1 MYALGIA AND MYOSITIS NOS 04/19/2016 VIRA ABRAHAM RECONSTRUCTIVE DENTIST Ot 784.0 HEADACHE 04/19/2016 VIRA ABRAHAM RECONSTRUCTIVE DENTIST Ot 787.02 NAUSEA ALONE 04/19/2016 VIRA ABRAHAM RECONSTRUCTIVE DENTIST Ot 919.4 INSECT BITE NEC 04/19/2016 VIRA ABRAHAM RECONSTRUCTIVE DENTIST Ot E000.8 OTHER EXTERNAL CAUSE STATUS 04/19/2016 VIRA ABRAHAM RECONSTRUCTIVE DENTIST Ot 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.4 NONVENOM ARTHROPOD BITE 04/19/2016 LANDY LEOS, ASTON P Ot 786.09 RESPIRATORY ABNORM NEC 04/19/2016 LANDY LEOS, ASTON Andersen Ot 787.20 DYSPHAGIA, UNSPECIFIED 04/19/2016 PREM ESTEVEZ RECONSTRUCTIVE DENTIST Ot V10.21 HX-LARYNGEAL MALIGNANCY 04/19/2016 PREM ESTEVEZ S RECONSTRUCTIVE DENTIST Ot V12.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 04/19/2016 PREM ESTEVEZ S RECONSTRUCTIVE DENTIST Ot V58.69 OTH MED,LT,CURRENT USE 04/19/2016 PREM ESTEVEZ RECONSTRUCTIVE DENTIST Ot V67.1 RADIOTHERAPY FOLLOW-UP 04/19/2016 PREM ESTEVEZ RECONSTRUCTIVE DENTIST Ot V67.2 CHEMOTHERAPY FOLLOW-UP 04/19/2016 PREM ESTEVEZ RECONSTRUCTIVE DENTIST Ot 530.3 ESOPHAGEAL STRICTURE 04/19/2016 PREM ESTEVEZ RECONSTRUCTIVE DENTIST Ot 780.4 DIZZINESS AND GIDDINESS 04/19/2016 PREM ESTEVEZ RECONSTRUCTIVE DENTIST Ot 784.0 HEADACHE 04/19/2016 PREM ESTEVEZ RECONSTRUCTIVE DENTIST Ot V10.21 HX-LARYNGEAL MALIGNANCY 04/19/2016 PREM ESTEVEZ RECONSTRUCTIVE DENTIST Ot V12.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 04/19/2016 PREM ESTEVEZ RECONSTRUCTIVE DENTIST Ot V58.69 OTH MED,LT,CURRENT USE 04/19/2016 PREM ESTEVEZ S RECONSTRUCTIVE DENTIST Ot V67.1 RADIOTHERAPY FOLLOW-UP 04/19/2016 PREM ESTEVEZ S RECONSTRUCTIVE DENTIST Ot V67.2 CHEMOTHERAPY FOLLOW-UP 04/19/2016 PREM ESTEVEZ RECONSTRUCTIVE DENTIST Ot 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 04/19/2016 PREM ESTEVEZ S RECONSTRUCTIVE DENTIST Ot 780.4 DIZZINESS AND GIDDINESS 04/19/2016 PREM ESTEVEZ S RECONSTRUCTIVE DENTIST Ot 784.0 HEADACHE 04/19/2016 PREM ESTEVEZ RECONSTRUCTIVE DENTIST Ot V12.54 PERSONAL HX OF TIA, CEREBRAL INFARCTION 04/19/2016 VIRA ABRAHAM RECONSTRUCTIVE DENTIST Ot 719.41 JOINT PAIN-SHLDER 04/19/2016 VIRA ABRAHAM RECONSTRUCTIVE DENTIST Ot E000.8 OTHER EXTERNAL CAUSE STATUS 04/19/2016 JARAD VIRA Titus RECONSTRUCTIVE DENTIST Ot E849.0 ACCIDENT IN HOME 04/19/2016 VIRA ABRAHAM RECONSTRUCTIVE DENTIST Ot E888.9 FALL NOS 04/19/2016 DEEPAK LEOS, JAJA Rushing Ot V76.12 OTH SCREEN MAMMO-MALIGN NEOPLASM OF BERNABE 04/19/2016 SHWETA DPM, ERLIN Q Ot 735.0 HALLUX VALGUS 04/19/2016 SHWETA DPM, ERLIN Q Ot V72.84 EXAM PRE-OPERATIVE NOS 04/19/2016 SHWETA DPM, ERLIN Q Ot V74.8 SCREEN-BACTERIAL DIS NEC 04/19/2016 JASON BENITEZ Ot V10.21 HX-LARYNGEAL MALIGNANCY 04/19/2016 JASON BENITEZ Ot V12.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 04/19/2016 JASON BENITEZ Ot V58.69 OTH MED,LT,CURRENT USE 04/19/2016 JASON BENITEZ Ot V67.1 RADIOTHERAPY FOLLOW-UP 04/19/2016 JASON BENITEZ Ot V67.2 CHEMOTHERAPY FOLLOW-UP 04/19/2016 Ot 272.0 PURE HYPERCHOLESTEROLEM 04/19/2016 Ot 300.00 ANXIETY STATE NOS 04/19/2016 Ot 530.3 ESOPHAGEAL STRICTURE 04/19/2016 Ot 530.81 ESOPHAGEAL REFLUX 04/19/2016 Ot V58.69 OTH MED,LT, CURRENT USE 04/19/2016 NATHALIE JACOBSEN MD Ot 272.0 PURE HYPERCHOLESTEROLEM 04/19/2016 NATHALIE JACOBSEN MD Ot 300.00 ANXIETY STATE NOS 04/19/2016 NATHALIE JACOBSEN MD Ot 530.3 ESOPHAGEAL STRICTURE 04/19/2016 NATHALIE JACOBSEN MD Ot 530.81 ESOPHAGEAL REFLUX 04/19/2016 NATHALIE JACOBSEN MD Ot 728.87 MUSCLE WEAKNESS (GENERALIZED) 04/19/2016 NATHALIE JACOBSEN MD Ot 781.94 FACIAL WEAKNESS 04/19/2016 NATHALIE JACOBSEN MD Ot 784.59 OTHER SPEECH DISTURBANCE 04/19/2016 NATHALIE JACOBSEN MD Ot V58.69 OTH MED,LT,CURRENT USE 04/19/2016 VIRA ABRAHAM RECONSTRUCTIVE DENTIST Ot 729.5 PAIN IN LIMB 04/19/2016 PREM ESTEVEZ RECONSTRUCTIVE DENTIST Ot V10.21 HX-LARYNGEAL MALIGNANCY 04/19/2016 PREM ESTEVEZ RECONSTRUCTIVE DENTIST Ot V12.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 04/19/2016 PREM ESTEVEZ RECONSTRUCTIVE DENTIST Ot V58.69 OTH MED,LT,CURRENT USE 04/19/2016 ESTEVEZPREM Jo RECONSTRUCTIVE DENTIST Ot V67.1 RADIOTHERAPY FOLLOW-UP 04/19/2016 PREM ESTEVEZ RECONSTRUCTIVE DENTIST Ot V67.2 CHEMOTHERAPY FOLLOW-UP 04/19/2016 PREM ESTEVEZ RECONSTRUCTIVE DENTIST Ot 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 04/19/2016 PREM ESTEVEZ RECONSTRUCTIVE DENTIST Ot 728.87 MUSCLE WEAKNESS (GENERALIZED) 04/19/2016 PREM ESTEVEZ RECONSTRUCTIVE DENTIST Ot 780.4 DIZZINESS AND GIDDINESS 04/19/2016 BLOSSOM HURD APRN Ot 786.2 COUGH 04/19/2016 NATHALIE JACOBSEN MD Ot 272.0 PURE HYPERCHOLESTEROLEM 04/19/2016 NATHALIE JACOBSEN MD Ot 300.00 ANXIETY STATE NOS 04/19/2016 NATHALIE JACOBSEN MD Ot 530.3 ESOPHAGEAL STRICTURE 04/19/2016 NATHALIE JACOBSEN MD Ot 530.81 ESOPHAGEAL REFLUX 04/19/2016 NATHALIE JACOBSEN MD Ot V58.69 OTH MED,LT,CURRENT USE 04/19/2016 VIRA ABRAHAM RECONSTRUCTIVE DENTIST Ot 719.41 JOINT PAIN-SHLDER 04/19/2016 JAJA SOTELO MD Ot R10.9 UNSPECIFIED ABDOMINAL PAIN 04/19/2016 JAJA SOTELO MD Ot R74.8 ABNORMAL LEVELS OF OTHER SERUM ENZYMES 04/19/2016 LIA HELMS SOCIAL WORK ADMINISTRATOR Ot M25.551 PAIN IN RIGHT HIP 04/19/2016 LIA HELMS SOCIAL WORK ADMINISTRATOR Ot M25.561 PAIN IN RIGHT KNEE 04/19/2016 LIA HELMS SOCIAL WORK ADMINISTRATOR Ot R06.02 SHORTNESS OF BREATH 04/19/2016 ASTON BILL MD Ot R49.0 DYSPHONIA 04/19/2016 ASTON BILL MD, Ot 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, 04/19/2016 ASTON BILL MD Ot R06.02 SHORTNESS OF BREATH 04/19/2016 LANDY LEOS, ASTON Andersen Ot R49.0 DYSPHONIA 04/19/2016 ASTON BILL MD Ot 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, 04/19/2016 LIA HELMS SOCIAL WORK ADMINISTRATOR Ot R00.2 PALPITATIONS 04/19/2016 LIA HELMS SOCIAL WORK ADMINISTRATOR Ot R06.02 SHORTNESS OF BREATH 05/19/2016 VIRA ABRAHAM RECONSTRUCTIVE DENTIST Ot R22.0 LOCALIZED SWELLING, MASS AND LUMP, HEAD 06/18/2016 MARTHA LEE APRN Ot I10 ESSENTIAL (PRIMARY) HYPERTENSION 06/18/2016 MARTHA LEE APRN Ot R11.2 NAUSEA WITH VOMITING, UNSPECIFIED 06/18/2016 MARTHA LEE APRN Ot R51 HEADACHE 06/18/2016 MARTHA LEE APRN Ot Z79.899 OTHER LONGTERM (CURRENT) DRUG THERAPY 06/20/2016 MARTHA LEE APRN Ot I10 ESSENTIAL (PRIMARY) HYPERTENSION 06/20/2016 MARTHA LEE APRN Ot R11.2 NAUSEA WITH VOMITING, UNSPECIFIED 06/20/2016 MARTHA LEE APRN Ot R51 HEADACHE 06/20/2016 MARTHA LEE APRN Ot Z79.899 OTHER LONGTERM (CURRENT) DRUG THERAPY 06/25/2016 MARTHA LEE APRN Ot I10 ESSENTIAL (PRIMARY) HYPERTENSION 06/25/2016 MARTHA LEE APRN Ot R11.2 NAUSEA WITH VOMITING, UNSPECIFIED 06/25/2016 MARTHA LEE APRN Ot R51 HEADACHE 06/25/2016 MARTHA LEE APRN Ot Z79.899 OTHER LONGTERM (CURRENT) DRUG THERAPY 08/03/2016 Ot V10.21 HX- LARYNGEAL MALIGNANCY 08/03/2016 Ot V12.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 08/03/2016 Ot V58.69 OTH MED,LT, CURRENT USE 08/03/2016 Ot V67.1 RADIOTHERAPY FOLLOW-UP 08/03/2016 Ot V67.2 CHEMOTHERAPY FOLLOW-UP 08/03/2016 Ot 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 08/03/2016 Ot V10.21 HX- LARYNGEAL MALIGNANCY 08/03/2016 Ot V12.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 08/03/2016 Ot V58.69 OTH MED,LT, CURRENT USE 08/03/2016 Ot V67.1 RADIOTHERAPY FOLLOW-UP 08/03/2016 Ot V67.2 CHEMOTHERAPY FOLLOW-UP 08/03/2016 Ot 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 08/03/2016 Ot 562.10 DIVERTICULOSIS COLON (W/O MENT OF HEMORR 08/03/2016 Ot V76.12 OTH SCREEN MAMMO-MALIGN NEOPLASM OF BERNABE 08/03/2016 Ot 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 08/03/2016 Ot 528.9 ORAL SOFT TISSUE DIS NEC 08/03/2016 Ot 530.3 ESOPHAGEAL STRICTURE 08/03/2016 Ot 585.3 CHRONIC KIDNEY DISEASE, STAGE III (MODER 08/03/2016 Ot V12.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 08/03/2016 Ot V15.3 HX OF IRRADIATION 08/03/2016 Ot V58.61 ANTICOAGULANTS,LT,CURRENT USE 08/03/2016 Ot V58.69 OTH MED,LT, CURRENT USE 08/03/2016 Ot V87.41 PERSONAL HISTORY OF ANTINEOPLASTIC CHEMO 08/03/2016 Ot V54.01 ENCNTR FOR REMOVAL OF INTERNAL FIXATION 08/03/2016 Ot V72.84 EXAM PRE- OPERATIVE NOS 08/03/2016 Ot 560.9 INTESTINAL OBSTRUCT NOS 08/03/2016 Ot 562.11 DIVERTICULITIS COLON (W/O MENT OF HEMORR 08/03/2016 Ot V72.63 PRE- PROCEDURAL LABORATORY EXAMINATION 08/03/2016 Ot V74.8 SCREEN- BACTERIAL DIS NEC 08/03/2016 Ot 789.00 ABDOMINAL PAIN, UNSPECIFIED SITE 08/03/2016 Ot 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 08/03/2016 Ot 780.2 SYNCOPE AND COLLAPSE 08/03/2016 Ot V10.03 HX- ESOPHAGEAL MALIGNANCY 08/03/2016 Ot V72.84 EXAM PRE- OPERATIVE NOS 08/03/2016 Ot 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 08/03/2016 Ot 789.00 ABDOMINAL PAIN, UNSPECIFIED SITE 08/03/2016 Ot V12.79 PERSONAL HISTORY OTH SPEC DIGESTIVE SYST 08/03/2016 Ot 530.3 ESOPHAGEAL STRICTURE 08/03/2016 Ot 780.4 DIZZINESS AND GIDDINESS 08/03/2016 Ot 784.0 HEADACHE 08/03/2016 Ot V10.21 HX- LARYNGEAL MALIGNANCY 08/03/2016 Ot V12.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 08/03/2016 Ot V58.69 OTH MED,LT, CURRENT USE 08/03/2016 Ot V67.1 RADIOTHERAPY FOLLOW-UP 08/03/2016 Ot V67.2 CHEMOTHERAPY FOLLOW-UP 08/03/2016 Ot 780.4 DIZZINESS AND GIDDINESS 08/03/2016 Ot 784.0 HEADACHE 08/03/2016 PREM ESTEVEZ RECONSTRUCTIVE DENTIST Ot 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 08/03/2016 VIRA ABRAHAM RECONSTRUCTIVE DENTIST Ot V76.12 OTH SCREEN MAMMO-MALIGN NEOPLASM OF BERNABE 08/03/2016 Ot V68.01 DISABILITY EXAMINATION 08/03/2016 Ot V82.89 SCREEN FOR OTH SPECIF CONDITIONS 08/03/2016 JASON BENITEZ Ot V10.21 HX-LARYNGEAL MALIGNANCY 08/03/2016 JASON BENITEZ Ot V12.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 08/03/2016 JASON BENITEZ Ot V58.69 OTH MED,LT,CURRENT USE 08/03/2016 JASON BENITEZ Ot V67.1 RADIOTHERAPY FOLLOW-UP 08/03/2016 JASON BENITEZ N Ot V67.2 CHEMOTHERAPY FOLLOW-UP 08/03/2016 VIRA ABRAHAM RECONSTRUCTIVE DENTIST Ot 729.1 MYALGIA AND MYOSITIS NOS 08/03/2016 VIRA ABRAHAM RECONSTRUCTIVE DENTIST Ot 784.0 HEADACHE 08/03/2016 VIRA ABRAHAM RECONSTRUCTIVE DENTIST Ot 787.02 NAUSEA ALONE 08/03/2016 VIRA ABRAHAM RECONSTRUCTIVE DENTIST Ot 919.4 INSECT BITE NEC 08/03/2016 VIRA ABRAHAM RECONSTRUCTIVE DENTIST Ot E000.8 OTHER EXTERNAL CAUSE STATUS 08/03/2016 VIRA ABRAHAM RECONSTRUCTIVE DENTIST Ot E906.4 NONVENOM ARTHROPOD BITE 08/03/2016 LANDY LEOS, ASTON Andersen Ot 786.09 RESPIRATORY ABNORM NEC 08/03/2016 ASTON BILL MD Ot 787.20 DYSPHAGIA, UNSPECIFIED 08/03/2016 PREM ESTEVEZ RECONSTRUCTIVE DENTIST Ot V10.21 HX-LARYNGEAL MALIGNANCY 08/03/2016 PREM ESTEVEZ RECONSTRUCTIVE DENTIST Ot V12.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 08/03/2016 PREM ESTEVEZ RECONSTRUCTIVE DENTIST Ot V58.69 OTH MED,LT,CURRENT USE 08/03/2016 PREM ESTEVEZ RECONSTRUCTIVE DENTIST Ot V67.1 RADIOTHERAPY FOLLOW-UP 08/03/2016 PREM ESTEVEZ RECONSTRUCTIVE DENTIST Ot V67.2 CHEMOTHERAPY FOLLOW-UP 08/03/2016 PREM ESTEVEZ RECONSTRUCTIVE DENTIST Ot 530.3 ESOPHAGEAL STRICTURE 08/03/2016 PREM ESTEVEZ RECONSTRUCTIVE DENTIST Ot 780.4 DIZZINESS AND GIDDINESS 08/03/2016 PREM ESTEVEZ RECONSTRUCTIVE DENTIST Ot 784.0 HEADACHE 08/03/2016 PREM ESTEVEZ RECONSTRUCTIVE DENTIST Ot V10.21 HX-LARYNGEAL MALIGNANCY 08/03/2016 PREM ESTEVEZ RECONSTRUCTIVE DENTIST Ot V12.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 08/03/2016 PREM ESTEVEZ RECONSTRUCTIVE DENTIST Ot V58.69 OTH MED,LT,CURRENT USE 08/03/2016 PREM ESTEVEZ RECONSTRUCTIVE DENTIST Ot V67.1 RADIOTHERAPY FOLLOW-UP 08/03/2016 PREM ESTEVEZ RECONSTRUCTIVE DENTIST Ot V67.2 CHEMOTHERAPY FOLLOW-UP 08/03/2016 PREM ESTEVEZ RECONSTRUCTIVE DENTIST Ot 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 08/03/2016 PREM ESTEVEZ RECONSTRUCTIVE DENTIST Ot 780.4 DIZZINESS AND GIDDINESS 08/03/2016 PREM ESTEVEZ RECONSTRUCTIVE DENTIST Ot 784.0 HEADACHE 08/03/2016 PREM ESTEVEZ RECONSTRUCTIVE DENTIST Ot V12.54 PERSONAL HX OF TIA, CEREBRAL INFARCTION 08/03/2016 VIRA ABRAHAM RECONSTRUCTIVE DENTIST Ot 719.41 JOINT PAIN-SHLDER 08/03/2016 VIRA ABRAHAM RECONSTRUCTIVE DENTIST Ot E000.8 OTHER EXTERNAL CAUSE STATUS 08/03/2016 VIRA ABRAHAM RECONSTRUCTIVE DENTIST Ot E849.0 ACCIDENT IN HOME 08/03/2016 VIRA ABRAHAM RECONSTRUCTIVE DENTIST Ot E888.9 FALL NOS 08/03/2016 DEEPAK ELOS, JAJA Rushing Ot V76.12 OTH SCREEN MAMMO-MALIGN NEOPLASM OF BERNABE 08/03/2016 SHWETA DPM, ERLIN Q Ot 735.0 HALLUX VALGUS 08/03/2016 SHWETA DPM, ERLIN Q Ot V72.84 EXAM PRE-OPERATIVE NOS 08/03/2016 SHWETA DPM, ERLIN Q Ot V74.8 SCREEN-BACTERIAL DIS NEC 08/03/2016 JASON BENITEZ Ot V10.21 HX-LARYNGEAL MALIGNANCY 08/03/2016 JASON BENITEZ Ot V12.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 08/03/2016 JASON BENITEZ Ot V58.69 OTH MED,LT,CURRENT USE 08/03/2016 JASON BENITEZ Ot V67.1 RADIOTHERAPY FOLLOW-UP 08/03/2016 JASON BENITEZ Ot V67.2 CHEMOTHERAPY FOLLOW-UP 08/03/2016 Ot 272.0 PURE HYPERCHOLESTEROLEM 08/03/2016 Ot 300.00 ANXIETY STATE NOS 08/03/2016 Ot 530.3 ESOPHAGEAL STRICTURE 08/03/2016 Ot 530.81 ESOPHAGEAL REFLUX 08/03/2016 Ot V58.69 OTH MED,LT, CURRENT USE 08/03/2016 NATHALIE JACOBSEN MD Ot 272.0 PURE HYPERCHOLESTEROLEM 08/03/2016 NATHALIE JACOBSEN MD Ot 300.00 ANXIETY STATE NOS 08/03/2016 NATHALIE JACOBSEN MD Ot 530.3 ESOPHAGEAL STRICTURE 08/03/2016 NATHALIE JACOBSEN MD Ot 530.81 ESOPHAGEAL REFLUX 08/03/2016 NATHALIE JACOBSEN MD Ot 728.87 MUSCLE WEAKNESS (GENERALIZED) 08/03/2016 NATHALIE JACOBSEN MD Ot 781.94 FACIAL WEAKNESS 08/03/2016 NATHALIE JACOBSEN MD Ot 784.59 OTHER SPEECH DISTURBANCE 08/03/2016 NATHALIE JACOBSEN MD Ot V58.69 OTH MED,LT,CURRENT USE 08/03/2016 VIRA ABRAHAM RECONSTRUCTIVE DENTIST Ot 729.5 PAIN IN LIMB 08/03/2016 PREM ESTEVEZ RECONSTRUCTIVE DENTIST Ot V10.21 HX-LARYNGEAL MALIGNANCY 08/03/2016 PREM ESTEVEZP Ot V12.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 08/03/2016 PREM ESTEVEZP Ot V58.69 OTH MED,LT,CURRENT USE 08/03/2016 PREM ESTEVEZ RECONSTRUCTIVE DENTIST Ot V67.1 RADIOTHERAPY FOLLOW-UP 08/03/2016 PREM ESTEVEZ RECONSTRUCTIVE DENTIST Ot V67.2 CHEMOTHERAPY FOLLOW-UP 08/03/2016 PREM ESTEVEZ RECONSTRUCTIVE DENTIST Ot 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 08/03/2016 PREM ESTEVEZ RECONSTRUCTIVE DENTIST Ot 728.87 MUSCLE WEAKNESS (GENERALIZED) 08/03/2016 PREM ESTEVEZ RECONSTRUCTIVE DENTIST Ot 780.4 DIZZINESS AND GIDDINESS 08/03/2016 BLOSSOM HURD SOCIAL WORK ADMINISTRATOR Ot 786.2 COUGH 08/03/2016 NATHALIE JACOBSEN MD Ot 272.0 PURE HYPERCHOLESTEROLEM 08/03/2016 NATHALIE JACOBSEN MD Ot 300.00 ANXIETY STATE NOS 08/03/2016 NATHALIE JACOBSEN MD Ot 530.3 ESOPHAGEAL STRICTURE 08/03/2016 NATHALIE JACOBSEN MD Ot 530.81 ESOPHAGEAL REFLUX 08/03/2016 NATHALIE JACOBSEN MD Ot V58.69 OTH MED,LT,CURRENT USE 08/03/2016 VIRA ABRAHAM Ot 719.41 JOINT PAIN-SHLDER 08/03/2016 JAJA SOTELO MD Ot R10.9 UNSPECIFIED ABDOMINAL PAIN 08/03/2016 JAJA SOTELO MD Ot R74.8 ABNORMAL LEVELS OF OTHER SERUM ENZYMES 08/03/2016 LIA HELMS SOCIAL WORK ADMINISTRATOR Ot M25.551 PAIN IN RIGHT HIP 08/03/2016 LIA HELMS SOCIAL WORK ADMINISTRATOR Ot M25.561 PAIN IN RIGHT KNEE 08/03/2016 LIA HELMS APRN Ot R06.02 SHORTNESS OF BREATH 08/03/2016 ASTON BILL MD Ot R49.0 DYSPHONIA 08/03/2016 ASTON BILL MD Ot 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, 08/03/2016 ASTON BILL MD Ot R06.02 SHORTNESS OF BREATH 08/03/2016 ASTON BILL MD Ot R49.0 DYSPHONIA 08/03/2016 ASTON BILL MD Ot 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, 08/03/2016 LIA HELMS SOCIAL WORK ADMINISTRATOR Ot R00.2 PALPITATIONS 08/03/2016 LIA HELMS APRN Ot R06.02 SHORTNESS OF BREATH 08/03/2016 VIRA ABRAHAM Ot R22.0 LOCALIZED SWELLING, MASS AND LUMP, HEAD 08/11/2016 NATHALIE JACOBSEN MD Ot 272.0 PURE HYPERCHOLESTEROLEM 08/11/2016 NATHALIE JACOBSEN MD Ot 300.00 ANXIETY STATE NOS 08/11/2016 NATHALIE JACOBSEN MD Ot 530.3 ESOPHAGEAL STRICTURE 08/11/2016 NATHALIE JACOBSEN MD Ot 530.81 ESOPHAGEAL REFLUX 08/11/2016 NATHALIE JACOBSEN MD Ot V58.69 OTH MED,LT,CURRENT USE 08/11/2016 LIA HELMS SOCIAL WORK ADMINISTRATOR Ot R00.2 PALPITATIONS 08/11/2016 LIA HELMS SOCIAL WORK ADMINISTRATOR Ot R06.02 SHORTNESS OF BREATH 08/11/2016 Ot V10.21 HX- LARYNGEAL MALIGNANCY 08/11/2016 Ot V12.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 08/11/2016 Ot V58.69 OTH MED,LT, CURRENT USE 08/11/2016 Ot V67.1 RADIOTHERAPY FOLLOW-UP 08/11/2016 Ot V67.2 CHEMOTHERAPY FOLLOW-UP 08/11/2016 Ot 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 08/11/2016 Ot V10.21 HX- LARYNGEAL MALIGNANCY 08/11/2016 Ot V12.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 08/11/2016 Ot V58.69 OTH MED,LT, CURRENT USE 08/11/2016 Ot V67.1 RADIOTHERAPY FOLLOW-UP 08/11/2016 Ot V67.2 CHEMOTHERAPY FOLLOW-UP 08/11/2016 Ot 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 08/11/2016 Ot 562.10 DIVERTICULOSIS COLON (W/O MENT OF HEMORR 08/11/2016 Ot V76.12 OTH SCREEN MAMMO-MALIGN NEOPLASM OF BERNABE 08/11/2016 Ot 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 08/11/2016 Ot 528.9 ORAL SOFT TISSUE DIS NEC 08/11/2016 Ot 530.3 ESOPHAGEAL STRICTURE 08/11/2016 Ot 585.3 CHRONIC KIDNEY DISEASE, STAGE III (MODER 08/11/2016 Ot V12.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 08/11/2016 Ot V15.3 HX OF IRRADIATION 08/11/2016 Ot V58.61 ANTICOAGULANTS,LT,CURRENT USE 08/11/2016 Ot V58.69 OTH MED,LT, CURRENT USE 08/11/2016 Ot V87.41 PERSONAL HISTORY OF ANTINEOPLASTIC CHEMO 08/11/2016 Ot V54.01 ENCNTR FOR REMOVAL OF INTERNAL FIXATION 08/11/2016 Ot V72.84 EXAM PRE- OPERATIVE NOS 08/11/2016 Ot 560.9 INTESTINAL OBSTRUCT NOS 08/11/2016 Ot 562.11 DIVERTICULITIS COLON (W/O MENT OF HEMORR 08/11/2016 Ot V72.63 PRE- PROCEDURAL LABORATORY EXAMINATION 08/11/2016 Ot V74.8 SCREEN- BACTERIAL DIS NEC 08/11/2016 Ot 789.00 ABDOMINAL PAIN, UNSPECIFIED SITE 08/11/2016 Ot 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 08/11/2016 Ot 780.2 SYNCOPE AND COLLAPSE 08/11/2016 Ot V10.03 HX- ESOPHAGEAL MALIGNANCY 08/11/2016 Ot V72.84 EXAM PRE- OPERATIVE NOS 08/11/2016 Ot 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 08/11/2016 Ot 789.00 ABDOMINAL PAIN, UNSPECIFIED SITE 08/11/2016 Ot V12.79 PERSONAL HISTORY OTH SPEC DIGESTIVE SYST 08/11/2016 Ot 530.3 ESOPHAGEAL STRICTURE 08/11/2016 Ot 780.4 DIZZINESS AND GIDDINESS 08/11/2016 Ot 784.0 HEADACHE 08/11/2016 Ot V10.21 HX- LARYNGEAL MALIGNANCY 08/11/2016 Ot V12.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 08/11/2016 Ot V58.69 OTH MED,LT, CURRENT USE 08/11/2016 Ot V67.1 RADIOTHERAPY FOLLOW-UP 08/11/2016 Ot V67.2 CHEMOTHERAPY FOLLOW-UP 08/11/2016 Ot 780.4 DIZZINESS AND GIDDINESS 08/11/2016 Ot 784.0 HEADACHE 08/11/2016 PREM ESTEVEZ RECONSTRUCTIVE DENTIST Ot 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 08/11/2016 VIRA ABRAHAM RECONSTRUCTIVE DENTIST Ot V76.12 OTH SCREEN MAMMO-MALIGN NEOPLASM OF BERNABE 08/11/2016 Ot V68.01 DISABILITY EXAMINATION 08/11/2016 Ot V82.89 SCREEN FOR OTH SPECIF CONDITIONS 08/11/2016 JASON BENITEZ Ot V10.21 HX-LARYNGEAL MALIGNANCY 08/11/2016 JASON BENITEZ Ot V12.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 08/11/2016 JASON BENITEZ Ot V58.69 OTH MED,LT,CURRENT USE 08/11/2016 JASON BENITEZ Ot V67.1 RADIOTHERAPY FOLLOW-UP 08/11/2016 JASON BENITEZ Ot V67.2 CHEMOTHERAPY FOLLOW-UP 08/11/2016 JARAD VIRA M RECONSTRUCTIVE DENTIST Ot 729.1 MYALGIA AND MYOSITIS NOS 08/11/2016 JARAD VIRA M RECONSTRUCTIVE DENTIST Ot 784.0 HEADACHE 08/11/2016 JARADVIRA RECONSTRUCTIVE DENTIST Ot 787.02 NAUSEA ALONE 08/11/2016 ABRAHAMVIRA RECONSTRUCTIVE DENTIST Ot 919.4 INSECT BITE NEC 08/11/2016 JARADVIRA Ariela RECONSTRUCTIVE DENTIST Ot E000.8 OTHER EXTERNAL CAUSE STATUS 08/11/2016 JARADVIRA RECONSTRUCTIVE DENTIST Ot E906.4 NONVENOM ARTHROPOD BITE 08/11/2016 LANDY LEOS, ASTON Andersen Ot 786.09 RESPIRATORY ABNORM NEC 08/11/2016 ASTON BILL MD Ot 787.20 DYSPHAGIA, UNSPECIFIED 08/11/2016 PREM ESTEVEZ RECONSTRUCTIVE DENTIST Ot V10.21 HX-LARYNGEAL MALIGNANCY 08/11/2016 PREM ESTEVEZP Ot V12.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 08/11/2016 PREM ESTEVEZP Ot V58.69 OTH MED,LT,CURRENT USE 08/11/2016 PREM ESTEVEZ RECONSTRUCTIVE DENTIST Ot V67.1 RADIOTHERAPY FOLLOW-UP 08/11/2016 PREM ESTEVEZ RECONSTRUCTIVE DENTIST Ot V67.2 CHEMOTHERAPY FOLLOW-UP 08/11/2016 PREM ESTEVEZ RECONSTRUCTIVE DENTIST Ot 530.3 ESOPHAGEAL STRICTURE 08/11/2016 PREM ESTEVEZ RECONSTRUCTIVE DENTIST Ot 780.4 DIZZINESS AND GIDDINESS 08/11/2016 PREM ESTEVEZ RECONSTRUCTIVE DENTIST Ot 784.0 HEADACHE 08/11/2016 PREM ESTEVEZ RECONSTRUCTIVE DENTIST Ot V10.21 HX-LARYNGEAL MALIGNANCY 08/11/2016 PREM ESTEVEZ RECONSTRUCTIVE DENTIST Ot V12.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 08/11/2016 PREM ESTEVEZ RECONSTRUCTIVE DENTIST Ot V58.69 OTH MED,LT,CURRENT USE 08/11/2016 PREM ESTEVEZ RECONSTRUCTIVE DENTIST Ot V67.1 RADIOTHERAPY FOLLOW-UP 08/11/2016 PREM ESTEVEZ RECONSTRUCTIVE DENTIST Ot V67.2 CHEMOTHERAPY FOLLOW-UP 08/11/2016 PREM ESTEVEZ RECONSTRUCTIVE DENTIST Ot 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 08/11/2016 PREM ESTEVEZ RECONSTRUCTIVE DENTIST Ot 780.4 DIZZINESS AND GIDDINESS 08/11/2016 PREM ESTEVEZ RECONSTRUCTIVE DENTIST Ot 784.0 HEADACHE 08/11/2016 CRISTIANO ESTEVEZKEELY Sandro RECONSTRUCTIVE DENTIST Ot V12.54 PERSONAL HX OF TIA, CEREBRAL INFARCTION 08/11/2016 ABRAHAMVIRA RECONSTRUCTIVE DENTIST Ot 719.41 JOINT PAIN-SHLDER 08/11/2016 ABRAHAMVIRA RECONSTRUCTIVE DENTIST Ot E000.8 OTHER EXTERNAL CAUSE STATUS 08/11/2016 JARADVIRA RECONSTRUCTIVE DENTIST Ot E849.0 ACCIDENT IN HOME 08/11/2016 ABRAHAMVIRA RECONSTRUCTIVE DENTIST Ot E888.9 FALL NOS 08/11/2016 DEEPAK LEOS, JAJA Rushing Ot V76.12 OTH SCREEN MAMMO-MALIGN NEOPLASM OF BERNABE 08/11/2016 SHWETA DPM, ERLIN Q Ot 735.0 HALLUX VALGUS 08/11/2016 SHWETA DPM, ERLIN Q Ot V72.84 EXAM PRE-OPERATIVE NOS 08/11/2016 SHWETA DPM, ERLIN Q Ot V74.8 SCREEN-BACTERIAL DIS NEC 08/11/2016 JASON BENITEZ Ot V10.21 HX-LARYNGEAL MALIGNANCY 08/11/2016 JASON BENITEZ Ot V12.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 08/11/2016 JASON BENITEZ Ot V58.69 OTH MED,LT,CURRENT USE 08/11/2016 JASON BENITEZ Ot V67.1 RADIOTHERAPY FOLLOW-UP 08/11/2016 JASON BENITEZ Ot V67.2 CHEMOTHERAPY FOLLOW-UP 08/11/2016 Ot 272.0 PURE HYPERCHOLESTEROLEM 08/11/2016 Ot 300.00 ANXIETY STATE NOS 08/11/2016 Ot 530.3 ESOPHAGEAL STRICTURE 08/11/2016 Ot 530.81 ESOPHAGEAL REFLUX 08/11/2016 Ot V58.69 OTH MED,LT, CURRENT USE 08/11/2016 NATHALIE JACOSBEN MD Ot 272.0 PURE HYPERCHOLESTEROLEM 08/11/2016 NATHALIE JACOBSEN MD Ot 300.00 ANXIETY STATE NOS 08/11/2016 NATHALIE JACOBSEN MD Ot 530.3 ESOPHAGEAL STRICTURE 08/11/2016 NATHALIE JACOBSEN MD Ot 530.81 ESOPHAGEAL REFLUX 08/11/2016 NATHALIE JACOBSEN MD Ot 728.87 MUSCLE WEAKNESS (GENERALIZED) 08/11/2016 NATHALIE JACOBSEN MD Ot 781.94 FACIAL WEAKNESS 08/11/2016 NATHALIE JACOBSEN MD Ot 784.59 OTHER SPEECH DISTURBANCE 08/11/2016 NATHALIE JACOBSEN MD Ot V58.69 OTH MED,LT,CURRENT USE 08/11/2016 VIRA ABRAHAM RECONSTRUCTIVE DENTIST Ot 729.5 PAIN IN LIMB 08/11/2016 PREM ESTEVEZ RECONSTRUCTIVE DENTIST Ot V10.21 HX-LARYNGEAL MALIGNANCY 08/11/2016 ESTEVEZPREM oJ RECONSTRUCTIVE DENTIST Ot V12.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 08/11/2016 PREM ESTEVEZ RECONSTRUCTIVE DENTIST Ot V58.69 OTH MED,LT,CURRENT USE 08/11/2016 PREM ESTEVEZ RECONSTRUCTIVE DENTIST Ot V67.1 RADIOTHERAPY FOLLOW-UP 08/11/2016 PREM ESTEVEZ RECONSTRUCTIVE DENTIST Ot V67.2 CHEMOTHERAPY FOLLOW-UP 08/11/2016 PREM ESTEVEZ RECONSTRUCTIVE DENTIST Ot 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 08/11/2016 PREM ESTEVEZ RECONSTRUCTIVE DENTIST Ot 728.87 MUSCLE WEAKNESS (GENERALIZED) 08/11/2016 PREM ESTEVEZ RECONSTRUCTIVE DENTIST Ot 780.4 DIZZINESS AND GIDDINESS 08/11/2016 BLOSSOM HURD SOCIAL WORK ADMINISTRATOR Ot 786.2 COUGH 08/11/2016 NATHALIE JACOBSEN MD Ot 272.0 PURE HYPERCHOLESTEROLEM 08/11/2016 NATHALIE JACOBSEN MD Ot 300.00 ANXIETY STATE NOS 08/11/2016 NATHALIE JACOBSEN MD Ot 530.3 ESOPHAGEAL STRICTURE 08/11/2016 NATHALIE JACOBSEN MD Ot 530.81 ESOPHAGEAL REFLUX 08/11/2016 NATHALIE JACOBSEN MD Ot V58.69 OTH MED,LT,CURRENT USE 08/11/2016 VIRA ABRAHAMP Ot 719.41 JOINT PAIN-SHLDER 08/11/2016 JAJA SOTELO MD Ot R10.9 UNSPECIFIED ABDOMINAL PAIN 08/11/2016 JAJA SOTELO MD Ot R74.8 ABNORMAL LEVELS OF OTHER SERUM ENZYMES 08/11/2016 LIA HELMS SOCIAL WORK ADMINISTRATOR Ot M25.551 PAIN IN RIGHT HIP 08/11/2016 LIA HELMS SOCIAL WORK ADMINISTRATOR Ot M25.561 PAIN IN RIGHT KNEE 08/11/2016 LIA HELMS SOCIAL WORK ADMINISTRATOR Ot R06.02 SHORTNESS OF BREATH 08/11/2016 ASTON BILL MD Ot R49.0 DYSPHONIA 08/11/2016 ASTON BILL MD Ot 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, 08/11/2016 ASTON BILL MD Ot R06.02 SHORTNESS OF BREATH 08/11/2016 ASTON BILL MD Ot R49.0 DYSPHONIA 08/11/2016 ASTON BILL MD Ot 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, 08/11/2016 LIA HELMS SOCIAL WORK ADMINISTRATOR Ot R00.2 PALPITATIONS 08/11/2016 LIA HELMS SOCIAL WORK ADMINISTRATOR Ot R06.02 SHORTNESS OF BREATH 08/11/2016 VIRA ABRAHAM RECONSTRUCTIVE DENTIST Ot R22.0 LOCALIZED SWELLING, MASS AND LUMP, HEAD 08/15/2016 ANGEL PUENTES DO B Ot D12.0 BENIGN NEOPLASM OF CECUM 08/15/2016 ANISH PUENTES DOIC B Ot D12.2 BENIGN NEOPLASM OF ASCENDING COLON 08/15/2016 DHAVAL PETERS ANGEL B Ot E78.5 HYPERLIPIDEMIA, UNSPECIFIED 08/15/2016 ANISH PUENTES DOIC B Ot F31.9 BIPOLAR DISORDER, UNSPECIFIED 08/15/2016 DHAVAL PETERS ANGEL B Ot F41.9 ANXIETY DISORDER, UNSPECIFIED 08/15/2016 DHAVAL PETERS ANGEL B Ot I10 ESSENTIAL (PRIMARY) HYPERTENSION 08/15/2016 ANISH PUENTES DOIC B Ot J21.9 ACUTE BRONCHIOLITIS, UNSPECIFIED 08/15/2016 DHAVAL PETERS ANGEL B Ot K21.9 GASTRO-ESOPHAGEAL REFLUX DISEASE WITHOUT 08/15/2016 DHAVAL PETERS ANGEL B Ot K57.30 DVRTCLOS OF LG INT W/O PERFORATION OR AB 08/15/2016 ANISH PUENTES DOIC B Ot K62.1 RECTAL POLYP 08/15/2016 ANISH PUENTES DOIC B Ot K63.5 POLYP OF COLON 08/15/2016 ANISH PUENTES DOIC B Ot K64.8 OTHER HEMORRHOIDS 08/15/2016 ANGEL PUENTES DO B Ot M79.7 FIBROMYALGIA 08/15/2016 ANGEL PUENTES DO B Ot Z79.899 OTHER LONGTERM (CURRENT) DRUG THERAPY 08/15/2016 ANGEL PUENTES DO Ot Z85.01 PERSONAL HISTORY OF MALIGNANT NEOPLASM O 08/15/2016 ANGEL PUENTES DO Ot Z87.891 PERSONAL HISTORY OF NICOTINE DEPENDENCE 08/16/2016 ANGEL PUENTES DO Ot Z01.818 ENCOUNTER FOR OTHER PREPROCEDURAL EXAMIN 08/16/2016 ANGEL PUENTES DO Ot Z12.11 ENCOUNTER FOR SCREENING FOR MALIGNANT NE 08/16/2016 ANGEL PUENTES DO Ot E78.5 HYPERLIPIDEMIA, UNSPECIFIED 08/16/2016 ANGEL PUENTES DO Ot F31.9 BIPOLAR DISORDER, UNSPECIFIED 08/16/2016 ANGEL PUENTES DO Ot F41.9 ANXIETY DISORDER, UNSPECIFIED 08/16/2016 ANGEL PUETNES DO Ot I10 ESSENTIAL (PRIMARY) HYPERTENSION 08/16/2016 ANGEL PUENTES DO Ot J21.9 ACUTE BRONCHIOLITIS, UNSPECIFIED 08/16/2016 ANGEL PUENTES DO Ot K21.9 GASTRO-ESOPHAGEAL REFLUX DISEASE WITHOUT 08/16/2016 ANGEL PUENTES DO Ot K57.30 DVRTCLOS OF LG INT W/O PERFORATION OR AB 08/16/2016 ANGEL PUENTES DO Ot K63.5 POLYP OF COLON 08/16/2016 ANGEL PUENTES DO Ot K64.8 OTHER HEMORRHOIDS 08/16/2016 ANGEL PUENTES DO Ot M79.7 FIBROMYALGIA 08/16/2016 ANGEL PUENTES DO Ot Z79.899 OTHER LONGTERM (CURRENT) DRUG THERAPY 08/16/2016 ANGEL PUENTES DO Ot Z85.01 PERSONAL HISTORY OF MALIGNANT NEOPLASM O 08/17/2016 ANGEL PUENTES DO Ot Z01.818 ENCOUNTER FOR OTHER PREPROCEDURAL EXAMIN 08/17/2016 ANGEL PUENTES DO Ot Z12.11 ENCOUNTER FOR SCREENING FOR MALIGNANT NE 08/17/2016 ANGEL PUENTES DO Ot Z01.818 ENCOUNTER FOR OTHER PREPROCEDURAL EXAMIN 08/17/2016 ANGEL PUENTES DO Ot Z12.11 ENCOUNTER FOR SCREENING FOR MALIGNANT NE 10/04/2016 ANGEL PUENTES DO Ot 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 BENIGN NEOPLASM OF CECUM 10/04/2016 ANGEL PUENTES DO Ot D12.2 BENIGN NEOPLASM OF ASCENDING COLON 10/04/2016 ANGEL PUENTES DO Ot E78.5 HYPERLIPIDEMIA, UNSPECIFIED 10/04/2016 ANGEL PUENTES DO Ot F31.9 BIPOLAR DISORDER, UNSPECIFIED 10/04/2016 ANGEL PUENTES DO Ot F41.9 ANXIETY DISORDER, UNSPECIFIED 10/04/2016 ANGEL PUENTES DO Ot I10 ESSENTIAL (PRIMARY) HYPERTENSION 10/04/2016 ANGEL PUENTES DO Ot J21.9 ACUTE BRONCHIOLITIS, UNSPECIFIED 10/04/2016 ANGEL PUENTES DO Ot K21.9 GASTRO-ESOPHAGEAL REFLUX DISEASE WITHOUT 10/04/2016 ANGEL PUENTES DO Ot K57.30 DVRTCLOS OF LG INT W/O PERFORATION OR AB 10/04/2016 ANGEL PUENTES DO Ot K62.1 RECTAL POLYP 10/04/2016 ANGEL PUENTES DO Ot K64.8 OTHER HEMORRHOIDS 10/04/2016 ANGEL PUENTES DO Ot M79.7 FIBROMYALGIA 10/04/2016 ANGEL PUENTES DO Ot Z79.899 OTHER LONGTERM (CURRENT) DRUG THERAPY 10/04/2016 ANGEL PUENTES DO Ot Z85.01 PERSONAL HISTORY OF MALIGNANT NEOPLASM O 10/04/2016 ANGEL PUENTES DO Ot Z87.891 PERSONAL HISTORY OF NICOTINE DEPENDENCE 11/04/2016 Ot 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 11/04/2016 Ot V10.21 HX- LARYNGEAL MALIGNANCY 11/04/2016 Ot V12.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 11/04/2016 Ot V58.69 OT MED,LT, CURRENT USE 11/04/2016 Ot V67.1 RADIOTHERAPY FOLLOW-UP 11/04/2016 Ot V67.2 CHEMOTHERAPY FOLLOW-UP 11/04/2016 Ot 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 11/04/2016 Ot 562.10 DIVERTICULOSIS COLON (W/O MENT OF HEMORR 11/04/2016 Ot V76.12 OTH SCREEN MAMMO-MALIGN NEOPLASM OF BERNABE 11/04/2016 Ot 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 11/04/2016 Ot 528.9 ORAL SOFT TISSUE DIS NEC 11/04/2016 Ot 530.3 ESOPHAGEAL STRICTURE 11/04/2016 Ot 585.3 CHRONIC KIDNEY DISEASE, STAGE III (MODER 11/04/2016 Ot V12.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 11/04/2016 Ot V15.3 HX OF IRRADIATION 11/04/2016 Ot V58.61 ANTICOAGULANTS,LT,CURRENT USE 11/04/2016 Ot V58.69 OTH MED,LT, CURRENT USE 11/04/2016 Ot V87.41 PERSONAL HISTORY OF ANTINEOPLASTIC CHEMO 11/04/2016 Ot V54.01 ENCNTR FOR REMOVAL OF INTERNAL FIXATION 11/04/2016 Ot V72.84 EXAM PRE- OPERATIVE NOS 11/04/2016 Ot 560.9 INTESTINAL OBSTRUCT NOS 11/04/2016 Ot 562.11 DIVERTICULITIS COLON (W/O MENT OF HEMORR 11/04/2016 Ot V72.63 PRE- PROCEDURAL LABORATORY EXAMINATION 11/04/2016 Ot V74.8 SCREEN- BACTERIAL DIS NEC 11/04/2016 Ot 789.00 ABDOMINAL PAIN, UNSPECIFIED SITE 11/04/2016 Ot 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 11/04/2016 Ot 780.2 SYNCOPE AND COLLAPSE 11/04/2016 Ot V10.03 HX- ESOPHAGEAL MALIGNANCY 11/04/2016 Ot V72.84 EXAM PRE- OPERATIVE NOS 11/04/2016 Ot 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 11/04/2016 Ot 789.00 ABDOMINAL PAIN, UNSPECIFIED SITE 11/04/2016 Ot V12.79 PERSONAL HISTORY OTH SPEC DIGESTIVE SYST 11/04/2016 Ot 530.3 ESOPHAGEAL STRICTURE 11/04/2016 Ot 780.4 DIZZINESS AND GIDDINESS 11/04/2016 Ot 784.0 HEADACHE 11/04/2016 Ot V10.21 HX- LARYNGEAL MALIGNANCY 11/04/2016 Ot V12.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 11/04/2016 Ot V58.69 OTH MED,LT, CURRENT USE 11/04/2016 Ot V67.1 RADIOTHERAPY FOLLOW-UP 11/04/2016 Ot V67.2 CHEMOTHERAPY FOLLOW-UP 11/04/2016 Ot 780.4 DIZZINESS AND GIDDINESS 11/04/2016 Ot 784.0 HEADACHE 11/04/2016 PREM ESTEVEZ RECONSTRUCTIVE DENTIST Ot 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 11/04/2016 VIRA ABRAHAM RECONSTRUCTIVE DENTIST Ot V76.12 OTH SCREEN MAMMO-MALIGN NEOPLASM OF BERNABE 11/04/2016 Ot V68.01 DISABILITY EXAMINATION 11/04/2016 Ot V82.89 SCREEN FOR OTH SPECIF CONDITIONS 11/04/2016 JASON BENITEZ Boom Ot V10.21 HX-LARYNGEAL MALIGNANCY 11/04/2016 JASON BENITEZ Boom Ot V12.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 11/04/2016 JASON BENITEZ Ot V58.69 OTH MED,LT,CURRENT USE 11/04/2016 JASON BENITEZ Boom Ot V67.1 RADIOTHERAPY FOLLOW-UP 11/04/2016 ELI LUIGILAKSHMI Boom Ot V67.2 CHEMOTHERAPY FOLLOW-UP 11/04/2016 VIRA ABRAHAM RECONSTRUCTIVE DENTIST Ot 729.1 MYALGIA AND MYOSITIS NOS 11/04/2016 VIRA ABRAHAM RECONSTRUCTIVE DENTIST Ot 784.0 HEADACHE 11/04/2016 VIRA ABRAHAM RECONSTRUCTIVE DENTIST Ot 787.02 NAUSEA ALONE 11/04/2016 VIRA ABRAHAM RECONSTRUCTIVE DENTIST Ot 919.4 INSECT BITE NEC 11/04/2016 VIRA ABRAHAM RECONSTRUCTIVE DENTIST Ot E000.8 OTHER EXTERNAL CAUSE STATUS 11/04/2016 VIRA ABRAHAM RECONSTRUCTIVE DENTIST Ot 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.4 NONVENOM ARTHROPOD BITE 11/04/2016 LANDY LEOS, ASTON Andersen Ot 786.09 RESPIRATORY ABNORM NEC 11/04/2016 LANDY LEOS, ASTON Andersen Ot 787.20 DYSPHAGIA, UNSPECIFIED 11/04/2016 PREM ESTEVEZ RECONSTRUCTIVE DENTIST Ot V10.21 HX-LARYNGEAL MALIGNANCY 11/04/2016 PREM ESTEVEZP Ot V12.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 11/04/2016 PREM ESTEVEZP Ot V58.69 OTH MED,LT,CURRENT USE 11/04/2016 PREM ESTEVEZ RECONSTRUCTIVE DENTIST Ot V67.1 RADIOTHERAPY FOLLOW-UP 11/04/2016 PREM ESTEVEZ RECONSTRUCTIVE DENTIST Ot V67.2 CHEMOTHERAPY FOLLOW-UP 11/04/2016 PREM ESTEVEZ RECONSTRUCTIVE DENTIST Ot 530.3 ESOPHAGEAL STRICTURE 11/04/2016 PREM ESTEVEZ RECONSTRUCTIVE DENTIST Ot 780.4 DIZZINESS AND GIDDINESS 11/04/2016 PREM ESTEVEZ RECONSTRUCTIVE DENTIST Ot 784.0 HEADACHE 11/04/2016 PREM ESTEVEZ RECONSTRUCTIVE DENTIST Ot V10.21 HX-LARYNGEAL MALIGNANCY 11/04/2016 ESTEVEZPREM Jo RECONSTRUCTIVE DENTIST Ot V12.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 11/04/2016 ESTEVEZPREM Jo RECONSTRUCTIVE DENTIST Ot V58.69 OTH MED,LT,CURRENT USE 11/04/2016 PREM ESTEVEZ RECONSTRUCTIVE DENTIST Ot V67.1 RADIOTHERAPY FOLLOW-UP 11/04/2016 HERBPREM RECONSTRUCTIVE DENTIST Ot V67.2 CHEMOTHERAPY FOLLOW-UP 11/04/2016 HERB PREM Jo RECONSTRUCTIVE DENTIST Ot 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 11/04/2016 HERBPREM RECONSTRUCTIVE DENTIST Ot 780.4 DIZZINESS AND GIDDINESS 11/04/2016 HERB PREM Jo RECONSTRUCTIVE DENTIST Ot 784.0 HEADACHE 11/04/2016 HERB PREM Jo RECONSTRUCTIVE DENTIST Ot V12.54 PERSONAL HX OF TIA, CEREBRAL INFARCTION 11/04/2016 VIRA ABRAHAM RECONSTRUCTIVE DENTIST Ot 719.41 JOINT PAIN-SHLDER 11/04/2016 VIRA ABRAHAM RECONSTRUCTIVE DENTIST Ot E000.8 OTHER EXTERNAL CAUSE STATUS 11/04/2016 VIRA ABRAHAM RECONSTRUCTIVE DENTIST Ot E849.0 ACCIDENT IN HOME 11/04/2016 VIRA ABRAHAM RECONSTRUCTIVE DENTIST Ot E888.9 FALL NOS 11/04/2016 DEEPAK LEOS, JAJA Rushing Ot V76.12 OTH SCREEN MAMMO-MALIGN NEOPLASM OF BERNABE 11/04/2016 SHWETA DPM, ERLIN Q Ot 735.0 HALLUX VALGUS 11/04/2016 SHWETA DPM, ERLIN Q Ot V72.84 EXAM PRE-OPERATIVE NOS 11/04/2016 SHWETA DPM, ERLIN Q Ot V74.8 SCREEN-BACTERIAL DIS NEC 11/04/2016 JASON BENITEZ Ot V10.21 HX-LARYNGEAL MALIGNANCY 11/04/2016 JASON BENITEZ Ot V12.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 11/04/2016 JASON BENITEZ Ot V58.69 OTH MED,LT,CURRENT USE 11/04/2016 JASON BENITEZ Ot V67.1 RADIOTHERAPY FOLLOW-UP 11/04/2016 JASON BENITEZ Ot V67.2 CHEMOTHERAPY FOLLOW-UP 11/04/2016 Ot 272.0 PURE HYPERCHOLESTEROLEM 11/04/2016 Ot 300.00 ANXIETY STATE NOS 11/04/2016 Ot 530.3 ESOPHAGEAL STRICTURE 11/04/2016 Ot 530.81 ESOPHAGEAL REFLUX 11/04/2016 Ot V58.69 OTH MED,LT, CURRENT USE 11/04/2016 NATHALIE JACOBSEN MD Ot 272.0 PURE HYPERCHOLESTEROLEM 11/04/2016 NATHALIE JACOBSEN MD Ot 300.00 ANXIETY STATE NOS 11/04/2016 NATHALIE JACOBSEN MD Ot 530.3 ESOPHAGEAL STRICTURE 11/04/2016 NATHALIE JACOBSEN MD Ot 530.81 ESOPHAGEAL REFLUX 11/04/2016 NATHALIE JACOBSEN MD Ot 728.87 MUSCLE WEAKNESS (GENERALIZED) 11/04/2016 NATHALIE JACOBSEN MD Ot 781.94 FACIAL WEAKNESS 11/04/2016 NATHALIE JACOBSEN MD Ot 784.59 OTHER SPEECH DISTURBANCE 11/04/2016 NATHALIE JACOBSEN MD Ot V58.69 OTH MED,LT,CURRENT USE 11/04/2016 VIRA ABRAHAM RECONSTRUCTIVE DENTIST Ot 729.5 PAIN IN LIMB 11/04/2016 PREM ESTEVEZ RECONSTRUCTIVE DENTIST Ot V10.21 HX-LARYNGEAL MALIGNANCY 11/04/2016 PREM ESTEVEZ RECONSTRUCTIVE DENTIST Ot V12.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 11/04/2016 PREM ESTEVEZ RECONSTRUCTIVE DENTIST Ot V58.69 OTH MED,LT,CURRENT USE 11/04/2016 PREM ESTEVEZ RECONSTRUCTIVE DENTIST Ot V67.1 RADIOTHERAPY FOLLOW-UP 11/04/2016 PREM ESTEVEZ RECONSTRUCTIVE DENTIST Ot V67.2 CHEMOTHERAPY FOLLOW-UP 11/04/2016 PREM ESTEVEZ RECONSTRUCTIVE DENTIST Ot 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 11/04/2016 PREM ESTEVEZ RECONSTRUCTIVE DENTIST Ot 728.87 MUSCLE WEAKNESS (GENERALIZED) 11/04/2016 PREM ESTEVEZ RECONSTRUCTIVE DENTIST Ot 780.4 DIZZINESS AND GIDDINESS 11/04/2016 BLOSSOM HURD APRN Ot 786.2 COUGH 11/04/2016 NATHALIE JACOBSEN MD Ot 272.0 PURE HYPERCHOLESTEROLEM 11/04/2016 NATHALIE JACOBSEN MD Ot 300.00 ANXIETY STATE NOS 11/04/2016 NATHLAIE JACOBSEN MD Ot 530.3 ESOPHAGEAL STRICTURE 11/04/2016 NATHALIE JACOBSEN MD Ot 530.81 ESOPHAGEAL REFLUX 11/04/2016 NATHALIE JACOBSEN MD Ot V58.69 OTH MED,LT,CURRENT USE 11/04/2016 VIRA ABRAHAM Ot 719.41 JOINT PAIN-SHLDER 11/04/2016 DEEPAK LEOS, JAJA Rushing Ot R10.9 UNSPECIFIED ABDOMINAL PAIN 11/04/2016 DEEPAK LEOS, JAJA Rushing Ot R74.8 ABNORMAL LEVELS OF OTHER SERUM ENZYMES 11/04/2016 LIA HELMS APRN Ot M25.551 PAIN IN RIGHT HIP 11/04/2016 LIA HELMS APRN Ot M25.561 PAIN IN RIGHT KNEE 11/04/2016 LIA HELMS APRN Ot R06.02 SHORTNESS OF BREATH 11/04/2016 ASTON BILL MD Ot R49.0 DYSPHONIA 11/04/2016 ASTON BILL MD Ot 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, 11/04/2016 ASTON BILL MD Ot R06.02 SHORTNESS OF BREATH 11/04/2016 ASTON BILL MD Ot R49.0 DYSPHONIA 11/04/2016 ASTON BILL MD Ot 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, 11/04/2016 LIA HELMS APRN Ot R00.2 PALPITATIONS 11/04/2016 LIA HELMS APRN Ot R06.02 SHORTNESS OF BREATH 11/04/2016 VIRA ABRAHAM Ot R22.0 LOCALIZED SWELLING, MASS AND LUMP, HEAD 11/04/2016 ANGEL PUENTES DO Ot Z01.818 ENCOUNTER FOR OTHER PREPROCEDURAL EXAMIN 11/04/2016 ANGEL PUENTES DO Ot Z12.11 ENCOUNTER FOR SCREENING FOR MALIGNANT NE 11/04/2016 NATHALIE JACOBSEN MD Ot 272.0 PURE HYPERCHOLESTEROLEM 11/04/2016 NATHALIE JACOBSEN MD Ot 300.00 ANXIETY STATE NOS 11/04/2016 NATHALIE JACOBSEN MD Ot 530.3 ESOPHAGEAL STRICTURE 11/04/2016 NATHALIE JACOBSEN MD Ot 530.81 ESOPHAGEAL REFLUX 11/04/2016 NATHALIE JACOBSEN MD Ot V58.69 OTH MED,LT,CURRENT USE 11/04/2016 LIA HELMS APRN Ot R00.2 PALPITATIONS 11/04/2016 LIA HELMS SHAKIR Ot R06.02 SHORTNESS OF BREATH 11/04/2016 ROSELYN IBARRA MD Ot E78.00 PURE HYPERCHOLESTEROLEMIA, UNSPECIFIED 11/04/2016 ROSELYN IBARRA MD Ot E87.6 HYPOKALEMIA 11/04/2016 ROSELYN IBARRA MD Ot F31.9 BIPOLAR DISORDER, UNSPECIFIED 11/04/2016 ROSELYN IBARRA MD Ot F41.9 ANXIETY DISORDER, UNSPECIFIED 11/04/2016 ROSELYN IBARRA MD Ot I10 ESSENTIAL (PRIMARY) HYPERTENSION 11/04/2016 ROSELYN IBARRA MD Ot K21.9 GASTRO-ESOPHAGEAL REFLUX DISEASE WITHOUT 11/04/2016 ROSELYN IBARRA MD Ot K92.89 OTHER SPECIFIED DISEASES OF THE DIGESTIV 11/04/2016 ROSELYN IBARRA MD Ot M19.90 UNSPECIFIED OSTEOARTHRITIS, UNSPECIFIED 11/04/2016 ROSELYN IBARRA MD Ot N39.0 URINARY TRACT INFECTION, SITE NOT SPECIF 11/04/2016 ROSELYN IBARRA MD Ot R11.2 NAUSEA WITH VOMITING, UNSPECIFIED 11/04/2016 ROSELYN IBARRA MD Ot Z80.0 FAMILY HISTORY OF MALIGNANT NEOPLASM OF 11/04/2016 ROSELYN IBARRA MD Ot Z82.49 FAMILY HX OF ISCHEM HEART DIS AND OTH DI 11/04/2016 ROSELYN IBARRA MD Ot 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, 11/04/2016 ROSELYN IBARRA MD Ot Z86.718 PERSONAL HISTORY OF OTHER VENOUS THROMBO 11/04/2016 ROSELYN IBARRA MD Ot Z87.448 PERSONAL HISTORY OF OTHER DISEASES OF UR 11/04/2016 ROSELYN IBARRA MD Ot Z87.891 PERSONAL HISTORY OF NICOTINE DEPENDENCE 11/04/2016 ROSELYN IBARRA MD Ot Z90.49 ACQUIRED ABSENCE OF OTHER SPECIFIED PART 11/04/2016 ROSELYN IBARRA MD Ot Z90.710 ACQUIRED ABSENCE OF BOTH CERVIX AND UTER 11/04/2016 ROSELYN IBARRA MD Ot Z90.89 ACQUIRED ABSENCE OF OTHER ORGANS 11/04/2016 ROSELYN IBARRA MD Ot Z93.0 TRACHEOSTOMY STATUS 11/04/2016 Ot 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 11/04/2016 Ot V10.21 HX- LARYNGEAL MALIGNANCY 11/04/2016 Ot V12.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 11/04/2016 Ot V58.69 OTH MED,LT, CURRENT USE 11/04/2016 Ot V67.1 RADIOTHERAPY FOLLOW-UP 11/04/2016 Ot V67.2 CHEMOTHERAPY FOLLOW-UP 11/04/2016 Ot 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 11/04/2016 Ot 562.10 DIVERTICULOSIS COLON (W/O MENT OF HEMORR 11/04/2016 Ot V76.12 OTH SCREEN MAMMO-MALIGN NEOPLASM OF BERNABE 11/04/2016 Ot 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 11/04/2016 Ot 528.9 ORAL SOFT TISSUE DIS NEC 11/04/2016 Ot 530.3 ESOPHAGEAL STRICTURE 11/04/2016 Ot 585.3 CHRONIC KIDNEY DISEASE, STAGE III (MODER 11/04/2016 Ot V12.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 11/04/2016 Ot V15.3 HX OF IRRADIATION 11/04/2016 Ot V58.61 ANTICOAGULANTS,LT,CURRENT USE 11/04/2016 Ot V58.69 OTH MED,LT, CURRENT USE 11/04/2016 Ot V87.41 PERSONAL HISTORY OF ANTINEOPLASTIC CHEMO 11/04/2016 Ot V54.01 ENCNTR FOR REMOVAL OF INTERNAL FIXATION 11/04/2016 Ot V72.84 EXAM PRE- OPERATIVE NOS 11/04/2016 Ot 560.9 INTESTINAL OBSTRUCT NOS 11/04/2016 Ot 562.11 DIVERTICULITIS COLON (W/O MENT OF HEMORR 11/04/2016 Ot V72.63 PRE- PROCEDURAL LABORATORY EXAMINATION 11/04/2016 Ot V74.8 SCREEN- BACTERIAL DIS NEC 11/04/2016 Ot 789.00 ABDOMINAL PAIN, UNSPECIFIED SITE 11/04/2016 Ot 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 11/04/2016 Ot 780.2 SYNCOPE AND COLLAPSE 11/04/2016 Ot V10.03 HX- ESOPHAGEAL MALIGNANCY 11/04/2016 Ot V72.84 EXAM PRE- OPERATIVE NOS 11/04/2016 Ot 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 11/04/2016 Ot 789.00 ABDOMINAL PAIN, UNSPECIFIED SITE 11/04/2016 Ot V12.79 PERSONAL HISTORY OTH SPEC DIGESTIVE SYST 11/04/2016 Ot 530.3 ESOPHAGEAL STRICTURE 11/04/2016 Ot 780.4 DIZZINESS AND GIDDINESS 11/04/2016 Ot 784.0 HEADACHE 11/04/2016 Ot V10.21 HX- LARYNGEAL MALIGNANCY 11/04/2016 Ot V12.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 11/04/2016 Ot V58.69 OTH MED,LT, CURRENT USE 11/04/2016 Ot V67.1 RADIOTHERAPY FOLLOW-UP 11/04/2016 Ot V67.2 CHEMOTHERAPY FOLLOW-UP 11/04/2016 Ot 780.4 DIZZINESS AND GIDDINESS 11/04/2016 Ot 784.0 HEADACHE 11/04/2016 PREM ESTEVEZ RECONSTRUCTIVE DENTIST Ot 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 11/04/2016 VIRA ABRAHAM RECONSTRUCTIVE DENTIST Ot V76.12 OTH SCREEN MAMMO-MALIGN NEOPLASM OF BERNABE 11/04/2016 Ot V68.01 DISABILITY EXAMINATION 11/04/2016 Ot V82.89 SCREEN FOR OTH SPECIF CONDITIONS 11/04/2016 JASON BENITEZ Ot V10.21 HX-LARYNGEAL MALIGNANCY 11/04/2016 JASON BENITEZ Ot V12.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 11/04/2016 JASON BENITEZ Ot V58.69 OTH MED,LT,CURRENT USE 11/04/2016 JASON BENITEZ Ot V67.1 RADIOTHERAPY FOLLOW-UP 11/04/2016 JASON BENITEZ Ot V67.2 CHEMOTHERAPY FOLLOW-UP 11/04/2016 VIRA ABRAHAM RECONSTRUCTIVE DENTIST Ot 729.1 MYALGIA AND MYOSITIS NOS 11/04/2016 VIRA ABRAHAM RECONSTRUCTIVE DENTIST Ot 784.0 HEADACHE 11/04/2016 VIRA ABRAHAM RECONSTRUCTIVE DENTIST Ot 787.02 NAUSEA ALONE 11/04/2016 VIRA ABRAHAM RECONSTRUCTIVE DENTIST Ot 919.4 INSECT BITE NEC 11/04/2016 VIRA ABRAHAM RECONSTRUCTIVE DENTIST Ot E000.8 OTHER EXTERNAL CAUSE STATUS 11/04/2016 VIRA ABRAHAM RECONSTRUCTIVE DENTIST Ot E906.4 NONVENOM ARTHROPOD BITE 11/04/2016 LANDY LEOS, ASTON Andersen Ot 786.09 RESPIRATORY ABNORM NEC 11/04/2016 LANDY LEOS, ASTON Andersen Ot 787.20 DYSPHAGIA, UNSPECIFIED 11/04/2016 PREM ESTEVEZ RECONSTRUCTIVE DENTIST Ot V10.21 HX-LARYNGEAL MALIGNANCY 11/04/2016 ESTEVEZPREM Jo RECONSTRUCTIVE DENTIST Ot V12.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 11/04/2016 ESTEVEZPREM Jo RECONSTRUCTIVE DENTIST Ot V58.69 OTH MED,LT,CURRENT USE 11/04/2016 ESTEVEZ PREM Jo RECONSTRUCTIVE DENTIST Ot V67.1 RADIOTHERAPY FOLLOW-UP 11/04/2016 CRISTIANO ESTEVEZKEELY S RECONSTRUCTIVE DENTIST Ot V67.2 CHEMOTHERAPY FOLLOW-UP 11/04/2016 CRISTIANO ESTEVEZKEELY Sandro RECONSTRUCTIVE DENTIST Ot 530.3 ESOPHAGEAL STRICTURE 11/04/2016 HERB PREM S RECONSTRUCTIVE DENTIST Ot 780.4 DIZZINESS AND GIDDINESS 11/04/2016 HERB PREM Jo RECONSTRUCTIVE DENTIST Ot 784.0 HEADACHE 11/04/2016 HERB PREM Jo RECONSTRUCTIVE DENTIST Ot V10.21 HX-LARYNGEAL MALIGNANCY 11/04/2016 HERB PREM Jo RECONSTRUCTIVE DENTIST Ot V12.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 11/04/2016 CRISTIANO ESTEVEZKEELY Jo RECONSTRUCTIVE DENTIST Ot V58.69 OTH MED,LT,CURRENT USE 11/04/2016 HERB PREM Jo RECONSTRUCTIVE DENTIST Ot V67.1 RADIOTHERAPY FOLLOW-UP 11/04/2016 HERB PREM Jo RECONSTRUCTIVE DENTIST Ot V67.2 CHEMOTHERAPY FOLLOW-UP 11/04/2016 HERB PREM Jo RECONSTRUCTIVE DENTIST Ot 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 11/04/2016 HERB PREM S RECONSTRUCTIVE DENTIST Ot 780.4 DIZZINESS AND GIDDINESS 11/04/2016 HERB PREM S RECONSTRUCTIVE DENTIST Ot 784.0 HEADACHE 11/04/2016 CRISTIANO ESTEVEZKEELY Jo RECONSTRUCTIVE DENTIST Ot V12.54 PERSONAL HX OF TIA, CEREBRAL INFARCTION 11/04/2016 VIRA ABRAHAM RECONSTRUCTIVE DENTIST Ot 719.41 JOINT PAIN-SHLDER 11/04/2016 VIRA ABRAHAM RECONSTRUCTIVE DENTIST Ot E000.8 OTHER EXTERNAL CAUSE STATUS 11/04/2016 VIRA ABRAHAM RECONSTRUCTIVE DENTIST Ot E849.0 ACCIDENT IN HOME 11/04/2016 VIRA ABRAHAM RECONSTRUCTIVE DENTIST Ot E888.9 FALL NOS 11/04/2016 DEEPAK LEOS, JAJA Rushing Ot V76.12 OTH SCREEN MAMMO-MALIGN NEOPLASM OF BERNABE 11/04/2016 SHWETA DPM, ERLIN Q Ot 735.0 HALLUX VALGUS 11/04/2016 SHWETA DPM, ERLIN Q Ot V72.84 EXAM PRE-OPERATIVE NOS 11/04/2016 SHWETA DPM, ERLIN Q Ot V74.8 SCREEN-BACTERIAL DIS NEC 11/04/2016 JASON BENITEZ Ot V10.21 HX-LARYNGEAL MALIGNANCY 11/04/2016 JASON BENITEZ Ot V12.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 11/04/2016 JASON BENITEZ Ot V58.69 OTH MED,LT,CURRENT USE 11/04/2016 JASON BENITEZ Ot V67.1 RADIOTHERAPY FOLLOW-UP 11/04/2016 JASON BENITEZ Boom Ot V67.2 CHEMOTHERAPY FOLLOW-UP 11/04/2016 Ot 272.0 PURE HYPERCHOLESTEROLEM 11/04/2016 Ot 300.00 ANXIETY STATE NOS 11/04/2016 Ot 530.3 ESOPHAGEAL STRICTURE 11/04/2016 Ot 530.81 ESOPHAGEAL REFLUX 11/04/2016 Ot V58.69 OTH MED,LT, CURRENT USE 11/04/2016 NATHALIE JACOBSEN MD Ot 272.0 PURE HYPERCHOLESTEROLEM 11/04/2016 NATHALIE JACOBSEN MD Ot 300.00 ANXIETY STATE NOS 11/04/2016 NATHALIE JACOBSEN MD Ot 530.3 ESOPHAGEAL STRICTURE 11/04/2016 NATHALIE JACOBSEN MD Ot 530.81 ESOPHAGEAL REFLUX 11/04/2016 NATHALIE JACOBSEN MD Ot 728.87 MUSCLE WEAKNESS (GENERALIZED) 11/04/2016 NATHALIE JACOBSEN MD Ot 781.94 FACIAL WEAKNESS 11/04/2016 NATHALIE JACOBSEN MD Ot 784.59 OTHER SPEECH DISTURBANCE 11/04/2016 NATHALIE JACOBSEN MD Ot V58.69 OTH MED,LT,CURRENT USE 11/04/2016 VIRA ABRAHAM RECONSTRUCTIVE DENTIST Ot 729.5 PAIN IN LIMB 11/04/2016 PREM ESTEVEZP Ot V10.21 HX-LARYNGEAL MALIGNANCY 11/04/2016 PREM ESTEVEZP Ot V12.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 11/04/2016 PREM ESTEVEZ Ot V58.69 OTH MED,LT,CURRENT USE 11/04/2016 PREM ESTEVEZ RECONSTRUCTIVE DENTIST Ot V67.1 RADIOTHERAPY FOLLOW-UP 11/04/2016 ESTEVEZ, HILAH S RECONSTRUCTIVE DENTIST Ot V67.2 CHEMOTHERAPY FOLLOW-UP 11/04/2016 ESTEVEZPREM Jo RECONSTRUCTIVE DENTIST Ot 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 11/04/2016 ESTEVEZPREM Jo RECONSTRUCTIVE DENTIST Ot 728.87 MUSCLE WEAKNESS (GENERALIZED) 11/04/2016 ESTEVEZPREM Jo RECONSTRUCTIVE DENTIST Ot 780.4 DIZZINESS AND GIDDINESS 11/04/2016 BLOSSOM HURD APRN Ot 786.2 COUGH 11/04/2016 NATHALIE JACOBSEN MD Ot 272.0 PURE HYPERCHOLESTEROLEM 11/04/2016 NATHALIE JACOBSEN MD Ot 300.00 ANXIETY STATE NOS 11/04/2016 NATHALIE JACOBSEN MD Ot 530.3 ESOPHAGEAL STRICTURE 11/04/2016 NATHALIE JACOBSEN MD Ot 530.81 ESOPHAGEAL REFLUX 11/04/2016 NATHALIE JACOBSEN MD Ot V58.69 OTH MED,LT,CURRENT USE 11/04/2016 VIRA ABRAHAM Ot 719.41 JOINT PAIN-SHLDER 11/04/2016 JAJA SOTELO MD Ot R10.9 UNSPECIFIED ABDOMINAL PAIN 11/04/2016 JAJA SOTELO MD Ot R74.8 ABNORMAL LEVELS OF OTHER SERUM ENZYMES 11/04/2016 LIA HELMS APRN Ot M25.551 PAIN IN RIGHT HIP 11/04/2016 LIA HELMS APRN Ot M25.561 PAIN IN RIGHT KNEE 11/04/2016 LIA HELMS APRN Ot R06.02 SHORTNESS OF BREATH 11/04/2016 ASTON BILL MD Ot R49.0 DYSPHONIA 11/04/2016 ASTON BILL MD Ot 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, 11/04/2016 ASTON BILL MD Ot R06.02 SHORTNESS OF BREATH 11/04/2016 ASTON BILL MD Ot R49.0 DYSPHONIA 11/04/2016 ASTON BILL MD Ot 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, 11/04/2016 LIA HELMS APRN Ot R00.2 PALPITATIONS 11/04/2016 LIA HELMS APRN Ot R06.02 SHORTNESS OF BREATH 11/04/2016 ABRAHAM, VIRA M RECONSTRUCTIVE DENTIST Ot R22.0 LOCALIZED SWELLING, MASS AND LUMP, HEAD 11/04/2016 ANGEL PUENTES DO Ot Z01.818 ENCOUNTER FOR OTHER PREPROCEDURAL EXAMIN 11/04/2016 ANGEL PUENTES DO Ot Z12.11 ENCOUNTER FOR SCREENING FOR MALIGNANT NE 12/01/2016 ANDRA SAM MD Ot E78.00 PURE HYPERCHOLESTEROLEMIA, UNSPECIFIED 12/01/2016 ANDRA SAM MD Ot F31.9 BIPOLAR DISORDER, UNSPECIFIED 12/01/2016 ANDRA SAM MD, Ot F41.9 ANXIETY DISORDER, UNSPECIFIED 12/01/2016 ANDRA SAM MD Ot I10 ESSENTIAL (PRIMARY) HYPERTENSION 12/01/2016 ANDRA SAM MD, Ot K21.9 GASTRO-ESOPHAGEAL REFLUX DISEASE WITHOUT 12/01/2016 ANDRA SAM MD Ot N20.1 CALCULUS OF URETER 12/01/2016 ANDRA SAM MD Ot R10.32 LEFT LOWER QUADRANT PAIN 12/01/2016 ANDRA SAM MD Ot Z80.0 FAMILY HISTORY OF MALIGNANT NEOPLASM OF 12/01/2016 ANDRA SAM MD Ot Z82.49 FAMILY HX OF ISCHEM HEART DIS AND OTH DI 12/01/2016 ANDRA SAM MD, Ot 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, 12/01/2016 ANDRA SAM MD Ot Z86.718 PERSONAL HISTORY OF OTHER VENOUS THROMBO 12/01/2016 ANDRA SAM MD Ot Z87.19 PERSONAL HISTORY OF OTHER DISEASES OF TH 12/01/2016 ANDRA SAM MD Ot Z87.448 PERSONAL HISTORY OF OTHER DISEASES OF UR 12/01/2016 ANDRA SAM MD Ot Z87.891 PERSONAL HISTORY OF NICOTINE DEPENDENCE 12/01/2016 ANDRA SAM MD Ot Z90.49 ACQUIRED ABSENCE OF OTHER SPECIFIED PART 12/01/2016 ANDRA SAM MD Ot Z90.710 ACQUIRED ABSENCE OF BOTH CERVIX AND UTER 12/01/2016 ANDRA SAM MD Ot Z90.89 ACQUIRED ABSENCE OF OTHER ORGANS 12/01/2016 ANDRA SAM MD Ot Z93.0 TRACHEOSTOMY STATUS 12/02/2016 ANDRA SAM MD Ot E78.00 PURE HYPERCHOLESTEROLEMIA, UNSPECIFIED 12/02/2016 ANDRA SAM MD, Ot F31.9 BIPOLAR DISORDER, UNSPECIFIED 12/02/2016 ANDRA SAM MD, Ot F41.9 ANXIETY DISORDER, UNSPECIFIED 12/02/2016 ANDRA SAM MD Ot I10 ESSENTIAL (PRIMARY) HYPERTENSION 12/02/2016 ANDRA SAM MD, Ot K21.9 GASTRO-ESOPHAGEAL REFLUX DISEASE WITHOUT 12/02/2016 ANDRA SAM MD Ot N20.1 CALCULUS OF URETER 12/02/2016 ANDRA SAM MD Ot R10.32 LEFT LOWER QUADRANT PAIN 12/02/2016 ANDRA SAM MD, Ot Z80.0 FAMILY HISTORY OF MALIGNANT NEOPLASM OF 12/02/2016 ANDRA SAM MD, Ot Z82.49 FAMILY HX OF ISCHEM HEART DIS AND OTH DI 12/02/2016 ANDRA SAM MD, Ot 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, 12/02/2016 ANDRA SAM MD, Ot Z86.718 PERSONAL HISTORY OF OTHER VENOUS THROMBO 12/02/2016 ANDRA SAM MD Ot Z87.19 PERSONAL HISTORY OF OTHER DISEASES OF TH 12/02/2016 ANDRA SAM MD Ot Z87.448 PERSONAL HISTORY OF OTHER DISEASES OF UR 12/02/2016 ANDRA SAM MD Ot Z87.891 PERSONAL HISTORY OF NICOTINE DEPENDENCE 12/02/2016 ANDRA SAM MD Ot Z90.49 ACQUIRED ABSENCE OF OTHER SPECIFIED PART 12/02/2016 ANDRA SAM MD Ot Z90.710 ACQUIRED ABSENCE OF BOTH CERVIX AND UTER 12/02/2016 ANDRA SAM MD Ot Z90.89 ACQUIRED ABSENCE OF OTHER ORGANS 12/02/2016 ANDRA SAM MD Ot Z93.0 TRACHEOSTOMY STATUS 12/05/2016 ROSELYN IBARRA MD Ot E11.9 TYPE 2 DIABETES MELLITUS WITHOUT COMPLIC 12/05/2016 ROSELYN IBARRA MD Ot E78.00 PURE HYPERCHOLESTEROLEMIA, UNSPECIFIED 12/05/2016 ROSELYN IBARRA MD Ot F31.9 BIPOLAR DISORDER, UNSPECIFIED 12/05/2016 ROSELYN IBARRA MD Ot F41.9 ANXIETY DISORDER, UNSPECIFIED 12/05/2016 ROSELYN IBARRA MD Ot I10 ESSENTIAL (PRIMARY) HYPERTENSION 12/05/2016 ROSELYN IBARRA MD Ot K21.9 GASTRO-ESOPHAGEAL REFLUX DISEASE WITHOUT 12/05/2016 ROSELYN IBARRA MD Ot M19.90 UNSPECIFIED OSTEOARTHRITIS, UNSPECIFIED 12/05/2016 ROSELYN IBARRA MD Ot N20.0 CALCULUS OF KIDNEY 12/05/2016 ROSELYN IBARRA MD Ot Z80.0 FAMILY HISTORY OF MALIGNANT NEOPLASM OF 12/05/2016 ROSELYN IBARRA MD Ot Z82.49 FAMILY HX OF ISCHEM HEART DIS AND OTH DI 12/05/2016 ROSELYN IBARRA MD Ot 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, 12/05/2016 ROSELYN IBARRA MD Ot Z86.718 PERSONAL HISTORY OF OTHER VENOUS THROMBO 12/05/2016 ROSELYN IBARRA MD Ot Z87.19 PERSONAL HISTORY OF OTHER DISEASES OF TH 12/05/2016 ROSELYN IBARRA MD Ot Z87.448 PERSONAL HISTORY OF OTHER DISEASES OF UR 12/05/2016 ROSELYN IBARRA MD Ot Z87.891 PERSONAL HISTORY OF NICOTINE DEPENDENCE 12/05/2016 ROSELYN IBARRA MD Ot Z90.49 ACQUIRED ABSENCE OF OTHER SPECIFIED PART 12/05/2016 ROSELYN IBARRA MD Ot Z90.89 ACQUIRED ABSENCE OF OTHER ORGANS 12/05/2016 ROSELYN IBARRA MD Ot Z93.0 TRACHEOSTOMY STATUS 12/06/2016 Ot 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 12/06/2016 Ot 562.10 DIVERTICULOSIS COLON (W/O MENT OF HEMORR 12/06/2016 Ot V76.12 OTH SCREEN MAMMO-MALIGN NEOPLASM OF BERNABE 12/06/2016 Ot 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 12/06/2016 Ot 528.9 ORAL SOFT TISSUE DIS NEC 12/06/2016 Ot 530.3 ESOPHAGEAL STRICTURE 12/06/2016 Ot 585.3 CHRONIC KIDNEY DISEASE, STAGE III (MODER 12/06/2016 Ot V12.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 12/06/2016 Ot V15.3 HX OF IRRADIATION 12/06/2016 Ot V58.61 ANTICOAGULANTS,LT,CURRENT USE 12/06/2016 Ot V58.69 OTH MED,LT, CURRENT USE 12/06/2016 Ot V87.41 PERSONAL HISTORY OF ANTINEOPLASTIC CHEMO 12/06/2016 Ot V54.01 ENCNTR FOR REMOVAL OF INTERNAL FIXATION 12/06/2016 Ot V72.84 EXAM PRE- OPERATIVE NOS 12/06/2016 Ot 560.9 INTESTINAL OBSTRUCT NOS 12/06/2016 Ot 562.11 DIVERTICULITIS COLON (W/O MENT OF HEMORR 12/06/2016 Ot V72.63 PRE- PROCEDURAL LABORATORY EXAMINATION 12/06/2016 Ot V74.8 SCREEN- BACTERIAL DIS NEC 12/06/2016 Ot 789.00 ABDOMINAL PAIN, UNSPECIFIED SITE 12/06/2016 Ot 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 12/06/2016 Ot 780.2 SYNCOPE AND COLLAPSE 12/06/2016 Ot V10.03 HX- ESOPHAGEAL MALIGNANCY 12/06/2016 Ot V72.84 EXAM PRE- OPERATIVE NOS 12/06/2016 Ot 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 12/06/2016 Ot 789.00 ABDOMINAL PAIN, UNSPECIFIED SITE 12/06/2016 Ot V12.79 PERSONAL HISTORY OTH SPEC DIGESTIVE SYST 12/06/2016 Ot 530.3 ESOPHAGEAL STRICTURE 12/06/2016 Ot 780.4 DIZZINESS AND GIDDINESS 12/06/2016 Ot 784.0 HEADACHE 12/06/2016 Ot V10.21 HX- LARYNGEAL MALIGNANCY 12/06/2016 Ot V12.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 12/06/2016 Ot V58.69 OTH MED,LT, CURRENT USE 12/06/2016 Ot V67.1 RADIOTHERAPY FOLLOW-UP 12/06/2016 Ot V67.2 CHEMOTHERAPY FOLLOW-UP 12/06/2016 Ot 780.4 DIZZINESS AND GIDDINESS 12/06/2016 Ot 784.0 HEADACHE 12/06/2016 PREM ESTEVEZ RECONSTRUCTIVE DENTIST Ot 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 12/06/2016 VIRA ABRAHAM RECONSTRUCTIVE DENTIST Ot V76.12 OTH SCREEN MAMMO-MALIGN NEOPLASM OF BERNABE 12/06/2016 Ot V68.01 DISABILITY EXAMINATION 12/06/2016 Ot V82.89 SCREEN FOR OTH SPECIF CONDITIONS 12/06/2016 ELI, BOBAN N Ot V10.21 HX-LARYNGEAL MALIGNANCY 12/06/2016 JASON BENITEZ Boom Ot V12.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 12/06/2016 JASON BENITEZ Ot V58.69 OTH MED,LT,CURRENT USE 12/06/2016 JASON BENITEZ Ot V67.1 RADIOTHERAPY FOLLOW-UP 12/06/2016 ELI LUIGILAKSHMI Boom Ot V67.2 CHEMOTHERAPY FOLLOW-UP 12/06/2016 VIRA ABRAHAM RECONSTRUCTIVE DENTIST Ot 729.1 MYALGIA AND MYOSITIS NOS 12/06/2016 VIRA ABRAHAM RECONSTRUCTIVE DENTIST Ot 784.0 HEADACHE 12/06/2016 VIRA ABRAHAM RECONSTRUCTIVE DENTIST Ot 787.02 NAUSEA ALONE 12/06/2016 VIRA ABRAHAM RECONSTRUCTIVE DENTIST Ot 919.4 INSECT BITE NEC 12/06/2016 VIRA ABRAHAM RECONSTRUCTIVE DENTIST Ot E000.8 OTHER EXTERNAL CAUSE STATUS 12/06/2016 VIRA ABRAHAM RECONSTRUCTIVE DENTIST Ot E906.4 NONVENOM ARTHROPOD BITE 12/06/2016 LANDY LEOS, ASTON Andersen Ot 786.09 RESPIRATORY ABNORM NEC 12/06/2016 ASTON BILL MD Ot 787.20 DYSPHAGIA, UNSPECIFIED 12/06/2016 PREM ESTEVEZ RECONSTRUCTIVE DENTIST Ot V10.21 HX-LARYNGEAL MALIGNANCY 12/06/2016 PREM ESTEVEZ RECONSTRUCTIVE DENTIST Ot V12.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 12/06/2016 PREM ESTEVEZ Ot V58.69 OTH MED,LT,CURRENT USE 12/06/2016 PREM ESTEVEZ RECONSTRUCTIVE DENTIST Ot V67.1 RADIOTHERAPY FOLLOW-UP 12/06/2016 PREM ESTEVEZ RECONSTRUCTIVE DENTIST Ot V67.2 CHEMOTHERAPY FOLLOW-UP 12/06/2016 PREM ESTEVEZ RECONSTRUCTIVE DENTIST Ot 530.3 ESOPHAGEAL STRICTURE 12/06/2016 PREM ESTEVEZ RECONSTRUCTIVE DENTIST Ot 780.4 DIZZINESS AND GIDDINESS 12/06/2016 PREM ESTEVEZ RECONSTRUCTIVE DENTIST Ot 784.0 HEADACHE 12/06/2016 PREM ESTEVEZ RECONSTRUCTIVE DENTIST Ot V10.21 HX-LARYNGEAL MALIGNANCY 12/06/2016 PREM ESTEVEZ RECONSTRUCTIVE DENTIST Ot V12.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 12/06/2016 PREM ESTEVEZ RECONSTRUCTIVE DENTIST Ot V58.69 OTH MED,LT,CURRENT USE 12/06/2016 PREM ESTEVEZ RECONSTRUCTIVE DENTIST Ot V67.1 RADIOTHERAPY FOLLOW-UP 12/06/2016 ESTEVEZPREM Jo RECONSTRUCTIVE DENTIST Ot V67.2 CHEMOTHERAPY FOLLOW-UP 12/06/2016 PREM ESTEVEZ RECONSTRUCTIVE DENTIST Ot 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 12/06/2016 PREM ESTEVEZ RECONSTRUCTIVE DENTIST Ot 780.4 DIZZINESS AND GIDDINESS 12/06/2016 PREM ESTEVEZ RECONSTRUCTIVE DENTIST Ot 784.0 HEADACHE 12/06/2016 PREM ESTEVEZ RECONSTRUCTIVE DENTIST Ot V12.54 PERSONAL HX OF TIA, CEREBRAL INFARCTION 12/06/2016 VIRA ABRAHAM RECONSTRUCTIVE DENTIST Ot 719.41 JOINT PAIN-SHLDER 12/06/2016 VIRA ABRAHAM RECONSTRUCTIVE DENTIST Ot E000.8 OTHER EXTERNAL CAUSE STATUS 12/06/2016 VIRA ABRAHAM RECONSTRUCTIVE DENTIST Ot E849.0 ACCIDENT IN HOME 12/06/2016 VIRA ABRAHAM RECONSTRUCTIVE DENTIST Ot E888.9 FALL NOS 12/06/2016 DEEPAK LEOS, JAJA Rushing Ot V76.12 OTH SCREEN MAMMO-MALIGN NEOPLASM OF BERNABE 12/06/2016 SHWETA DPM, ERLIN Q Ot 735.0 HALLUX VALGUS 12/06/2016 SHWETA DPM, ERLIN Q Ot V72.84 EXAM PRE-OPERATIVE NOS 12/06/2016 SHWETA DPM, ERLIN Q Ot V74.8 SCREEN-BACTERIAL DIS NEC 12/06/2016 JASON BENITEZ Ot V10.21 HX-LARYNGEAL MALIGNANCY 12/06/2016 JASON BENITEZ Ot V12.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 12/06/2016 JASON BENITEZ Ot V58.69 OTH MED,LT,CURRENT USE 12/06/2016 JASON BENITEZ Ot V67.1 RADIOTHERAPY FOLLOW-UP 12/06/2016 JASON BENITEZ Ot V67.2 CHEMOTHERAPY FOLLOW-UP 12/06/2016 Ot 272.0 PURE HYPERCHOLESTEROLEM 12/06/2016 Ot 300.00 ANXIETY STATE NOS 12/06/2016 Ot 530.3 ESOPHAGEAL STRICTURE 12/06/2016 Ot 530.81 ESOPHAGEAL REFLUX 12/06/2016 Ot V58.69 OTH MED,LT, CURRENT USE 12/06/2016 NATHALIE JACOBSEN MD Ot 272.0 PURE HYPERCHOLESTEROLEM 12/06/2016 NATHALIE JACOBSEN MD Ot 300.00 ANXIETY STATE NOS 12/06/2016 NATHALIE JACOBSEN MD Ot 530.3 ESOPHAGEAL STRICTURE 12/06/2016 NATHALIE JACOBSEN MD Ot 530.81 ESOPHAGEAL REFLUX 12/06/2016 NATHALIE JACOBSEN MD Ot 728.87 MUSCLE WEAKNESS (GENERALIZED) 12/06/2016 NATHALIE JACOBSEN MD Ot 781.94 FACIAL WEAKNESS 12/06/2016 NATHALIE JACOBSEN MD Ot 784.59 OTHER SPEECH DISTURBANCE 12/06/2016 NATHALIE JACOBSEN MD Ot V58.69 OTH MED,LT,CURRENT USE 12/06/2016 VIRA ABRAHAM RECONSTRUCTIVE DENTIST Ot 729.5 PAIN IN LIMB 12/06/2016 PREM ESTEVEZ RECONSTRUCTIVE DENTIST Ot V10.21 HX-LARYNGEAL MALIGNANCY 12/06/2016 PREM ESTEVEZ RECONSTRUCTIVE DENTIST Ot V12.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 12/06/2016 PREM ESTEVEZ RECONSTRUCTIVE DENTIST Ot V58.69 OTH MED,LT,CURRENT USE 12/06/2016 PREM ESTEVEZ RECONSTRUCTIVE DENTIST Ot V67.1 RADIOTHERAPY FOLLOW-UP 12/06/2016 PREM ESTEVEZ RECONSTRUCTIVE DENTIST Ot V67.2 CHEMOTHERAPY FOLLOW-UP 12/06/2016 PREM ESTEVEZ RECONSTRUCTIVE DENTIST Ot 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 12/06/2016 PREM ESTEVEZ RECONSTRUCTIVE DENTIST Ot 728.87 MUSCLE WEAKNESS (GENERALIZED) 12/06/2016 PREM ESTEVEZ RECONSTRUCTIVE DENTIST Ot 780.4 DIZZINESS AND GIDDINESS 12/06/2016 BLOSSOM HURD APRN Ot 786.2 COUGH 12/06/2016 NATHALIE JACOBSEN MD Ot 272.0 PURE HYPERCHOLESTEROLEM 12/06/2016 NATHALIE JACOBSEN MD Ot 300.00 ANXIETY STATE NOS 12/06/2016 NATHALIE JACOBSEN MD Ot 530.3 ESOPHAGEAL STRICTURE 12/06/2016 NATHALIE JACOBSEN MD Ot 530.81 ESOPHAGEAL REFLUX 12/06/2016 NATHALIE JACOBSEN MD Ot V58.69 OTH MED,LT,CURRENT USE 12/06/2016 VIRA ABRAHAM RECONSTRUCTIVE DENTIST Ot 719.41 JOINT PAIN-SHLDER 12/06/2016 JAJA SOTELO MD Ot R10.9 UNSPECIFIED ABDOMINAL PAIN 12/06/2016 JAJA SOTELO MD Ot R74.8 ABNORMAL LEVELS OF OTHER SERUM ENZYMES 12/06/2016 LIA HELMS SOCIAL WORK ADMINISTRATOR Ot M25.551 PAIN IN RIGHT HIP 12/06/2016 LIA HELMS SOCIAL WORK ADMINISTRATOR Ot M25.561 PAIN IN RIGHT KNEE 12/06/2016 LIA HEMLS APRN Ot R06.02 SHORTNESS OF BREATH 12/06/2016 ASTON BILL MD Ot R49.0 DYSPHONIA 12/06/2016 ASTON BILL MD Ot 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, 12/06/2016 ASTON BILL MD Ot R06.02 SHORTNESS OF BREATH 12/06/2016 ASTON BILL MD Ot R49.0 DYSPHONIA 12/06/2016 ASTON BILL MD Ot 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, 12/06/2016 LIA HELMS APRN Ot R00.2 PALPITATIONS 12/06/2016 LIA HELMS APRN Ot R06.02 SHORTNESS OF BREATH 12/06/2016 VIRA ABRAHAM Ot R22.0 LOCALIZED SWELLING, MASS AND LUMP, HEAD 12/06/2016 ANGEL PUENTES DO Ot Z01.818 ENCOUNTER FOR OTHER PREPROCEDURAL EXAMIN 12/06/2016 ANGEL PUENTES DO Ot Z12.11 ENCOUNTER FOR SCREENING FOR MALIGNANT NE 12/06/2016 NATHALIE JACOBSEN MD Ot 272.0 PURE HYPERCHOLESTEROLEM 12/06/2016 NATHALIE JACOBSEN MD Ot 300.00 ANXIETY STATE NOS 12/06/2016 NATHALIE JACOBSEN MD Ot 530.3 ESOPHAGEAL STRICTURE 12/06/2016 NATHALIE JACOBSEN MD Ot 530.81 ESOPHAGEAL REFLUX 12/06/2016 NATHALIE JACOBSEN MD Ot V58.69 OT MED,LT,CURRENT USE 12/06/2016 LIA HELMS SOCIAL WORK ADMINISTRATOR Ot R00.2 PALPITATIONS 12/06/2016 LIA HELMS APRN Ot R06.02 SHORTNESS OF BREATH 12/06/2016 ILIANA CUENCA MD Ot N20.1 CALCULUS OF URETER 12/06/2016 ILIANA CUENCA MD, Ot Z01.818 ENCOUNTER FOR OTHER PREPROCEDURAL EXAMIN 12/07/2016 NATHALIE JACOBSEN MD Ot 272.0 PURE HYPERCHOLESTEROLEM 12/07/2016 NATHALIE JACOBSEN MD Ot 300.00 ANXIETY STATE NOS 12/07/2016 NATHALIE JACOBSEN MD Ot 530.3 ESOPHAGEAL STRICTURE 12/07/2016 NATHALIE JACOBSEN MD Ot 530.81 ESOPHAGEAL REFLUX 12/07/2016 NATHALIE JACOBSEN MD Ot V58.69 OTH MED,LT,CURRENT USE 12/07/2016 LIA HELMS SOCIAL WORK ADMINISTRATOR Ot R00.2 PALPITATIONS 12/07/2016 LIA HELMS SOCIAL WORK ADMINISTRATOR Ot R06.02 SHORTNESS OF BREATH 12/07/2016 ILIANA CUENCA MD Ot E11.9 TYPE 2 DIABETES MELLITUS WITHOUT COMPLIC 12/07/2016 ILIANA CUENCA MD, Ot F31.9 BIPOLAR DISORDER, UNSPECIFIED 12/07/2016 ILIANA CUENCA MD, Ot F41.9 ANXIETY DISORDER, UNSPECIFIED 12/07/2016 ILIANA CUENCA MD, Ot I10 ESSENTIAL (PRIMARY) HYPERTENSION 12/07/2016 ILIANA CUENCA MD, Ot K21.9 GASTRO-ESOPHAGEAL REFLUX DISEASE WITHOUT 12/07/2016 ILIANA CUENCA MD Ot N20.1 CALCULUS OF URETER 12/07/2016 ILIANA CUENCA MD, Ot Z79.899 OTHER LONGTERM (CURRENT) DRUG THERAPY 12/07/2016 ILIANA CUENCA MD, Ot Z85.01 PERSONAL HISTORY OF MALIGNANT NEOPLASM O 12/07/2016 ILIANA CUENCA MD, Ot Z87.891 PERSONAL HISTORY OF NICOTINE DEPENDENCE 12/08/2016 ILIANA CUENCA MD, Ot E11.9 TYPE 2 DIABETES MELLITUS WITHOUT COMPLIC 12/08/2016 ILIANA CUENCA MD, Ot F31.9 BIPOLAR DISORDER, UNSPECIFIED 12/08/2016 ILIANA CUENCA MD, Ot F41.9 ANXIETY DISORDER, UNSPECIFIED 12/08/2016 ILIANA CUENCA MD Ot I10 ESSENTIAL (PRIMARY) HYPERTENSION 12/08/2016 ILIANA CUENCA MD, Ot K21.9 GASTRO-ESOPHAGEAL REFLUX DISEASE WITHOUT 12/08/2016 JOELLEN MD, ILIANA A Ot N20.1 CALCULUS OF URETER 12/08/2016 ILIANA CUENCA MD Ot 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 12/08/2016 ILIANA CUENCA MD Ot Z85.01 PERSONAL HISTORY OF MALIGNANT NEOPLASM O 12/08/2016 ILIANA CUENCA MD Ot Z87.891 PERSONAL HISTORY OF NICOTINE DEPENDENCE 12/11/2016 ROSELYN IBARRA MD Ot E11.9 TYPE 2 DIABETES MELLITUS WITHOUT COMPLIC 12/11/2016 ROSELYN IBARRA MD Ot E78.00 PURE HYPERCHOLESTEROLEMIA, UNSPECIFIED 12/11/2016 ROSELYN IBARRA MD Ot F31.9 BIPOLAR DISORDER, UNSPECIFIED 12/11/2016 ROSELYN IBARRA MD Ot F41.9 ANXIETY DISORDER, UNSPECIFIED 12/11/2016 ROSELYN IBARRA MD Ot I10 ESSENTIAL (PRIMARY) HYPERTENSION 12/11/2016 ROSELYN IBARRA MD Ot K21.9 GASTRO-ESOPHAGEAL REFLUX DISEASE WITHOUT 12/11/2016 ROSELYN IBARRA MD Ot M19.90 UNSPECIFIED OSTEOARTHRITIS, UNSPECIFIED 12/11/2016 ROSELYN IBARRA MD Ot N20.0 CALCULUS OF KIDNEY 12/11/2016 ROSELYN IBARRA MD Ot Z80.0 FAMILY HISTORY OF MALIGNANT NEOPLASM OF 12/11/2016 ROSELYN IBARRA MD Ot Z82.49 FAMILY HX OF ISCHEM HEART DIS AND OTH DI 12/11/2016 ROSELYN IBARRA MD Ot 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, 12/11/2016 ROSELYN IBARRA MD Ot Z86.718 PERSONAL HISTORY OF OTHER VENOUS THROMBO 12/11/2016 ROSELYN IBARRA MD Ot Z87.19 PERSONAL HISTORY OF OTHER DISEASES OF TH 12/11/2016 ROSELYN IBARRA MD Ot Z87.448 PERSONAL HISTORY OF OTHER DISEASES OF UR 12/11/2016 ROSELYN IBARRA MD Ot Z87.891 PERSONAL HISTORY OF NICOTINE DEPENDENCE 12/11/2016 ROSELYN IBARRA MD Ot Z90.49 ACQUIRED ABSENCE OF OTHER SPECIFIED PART 12/11/2016 ROSELYN IBARRA MD Ot Z90.89 ACQUIRED ABSENCE OF OTHER ORGANS 12/11/2016 FRED MD, ROSELYN J Ot Z93.0 TRACHEOSTOMY STATUS 12/15/2016 Ot 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 12/15/2016 Ot 562.10 DIVERTICULOSIS COLON (W/O MENT OF HEMORR 12/15/2016 Ot V76.12 OTH SCREEN MAMMO-MALIGN NEOPLASM OF [place]ERNABE 12/15/2016 Ot 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 12/15/2016 Ot 528.9 ORAL SOFT TISSUE DIS NEC 12/15/2016 Ot 530.3 ESOPHAGEAL STRICTURE 12/15/2016 Ot 585.3 CHRONIC KIDNEY DISEASE, STAGE III (MODER 12/15/2016 Ot V12.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 12/15/2016 Ot V15.3 HX OF IRRADIATION 12/15/2016 Ot V58.61 ANTICOAGULANTS,LT,CURRENT USE 12/15/2016 Ot V58.69 OTH MED,LT, CURRENT USE 12/15/2016 Ot V87.41 PERSONAL HISTORY OF ANTINEOPLASTIC CHEMO 12/15/2016 Ot V54.01 ENCNTR FOR REMOVAL OF INTERNAL FIXATION 12/15/2016 Ot V72.84 EXAM PRE- OPERATIVE NOS 12/15/2016 Ot 560.9 INTESTINAL OBSTRUCT NOS 12/15/2016 Ot 562.11 DIVERTICULITIS COLON (W/O MENT OF HEMORR 12/15/2016 Ot V72.63 PRE- PROCEDURAL LABORATORY EXAMINATION 12/15/2016 Ot V74.8 SCREEN- BACTERIAL DIS NEC 12/15/2016 Ot 789.00 ABDOMINAL PAIN, UNSPECIFIED SITE 12/15/2016 Ot 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 12/15/2016 Ot 780.2 SYNCOPE AND COLLAPSE 12/15/2016 Ot V10.03 HX- ESOPHAGEAL MALIGNANCY 12/15/2016 Ot V72.84 EXAM PRE- OPERATIVE NOS 12/15/2016 Ot 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 12/15/2016 Ot 789.00 ABDOMINAL PAIN, UNSPECIFIED SITE 12/15/2016 Ot V12.79 PERSONAL HISTORY OTH SPEC DIGESTIVE SYST 12/15/2016 Ot 530.3 ESOPHAGEAL STRICTURE 12/15/2016 Ot 780.4 DIZZINESS AND GIDDINESS 12/15/2016 Ot 784.0 HEADACHE 12/15/2016 Ot V10.21 HX- LARYNGEAL MALIGNANCY 12/15/2016 Ot V12.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 12/15/2016 Ot V58.69 OTH MED,LT, CURRENT USE 12/15/2016 Ot V67.1 RADIOTHERAPY FOLLOW-UP 12/15/2016 Ot V67.2 CHEMOTHERAPY FOLLOW-UP 12/15/2016 Ot 780.4 DIZZINESS AND GIDDINESS 12/15/2016 Ot 784.0 HEADACHE 12/15/2016 PREM ESTEVEZ RECONSTRUCTIVE DENTIST Ot 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 12/15/2016 VIRA ABRAHAM RECONSTRUCTIVE DENTIST Ot V76.12 OTH SCREEN MAMMO-MALIGN NEOPLASM OF [place]ERNABE 12/15/2016 Ot V68.01 DISABILITY EXAMINATION 12/15/2016 Ot V82.89 SCREEN FOR OTH SPECIF CONDITIONS 12/15/2016 JASON BENITEZ Ot V10.21 HX-LARYNGEAL MALIGNANCY 12/15/2016 JASON BENITEZ Ot V12.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 12/15/2016 JASON BENITEZ Ot V58.69 OTH MED,LT,CURRENT USE 12/15/2016 JASON BENITEZ Ot V67.1 RADIOTHERAPY FOLLOW-UP 12/15/2016 JASON BENITEZ Ot V67.2 CHEMOTHERAPY FOLLOW-UP 12/15/2016 VIRA ABRAHAM RECONSTRUCTIVE DENTIST Ot 729.1 MYALGIA AND MYOSITIS NOS 12/15/2016 VIRA ABRAHAM RECONSTRUCTIVE DENTIST Ot 784.0 HEADACHE 12/15/2016 VIRA ABRAHMA RECONSTRUCTIVE DENTIST Ot 787.02 NAUSEA ALONE 12/15/2016 VIRA ABARHAM RECONSTRUCTIVE DENTIST Ot 919.4 INSECT BITE NEC 12/15/2016 VIRA ABRAHAM RECONSTRUCTIVE DENTIST Ot E000.8 OTHER EXTERNAL CAUSE STATUS 12/15/2016 VIRA ABRAHAM RECONSTRUCTIVE DENTIST Ot E906.4 NONVENOM ARTHROPOD BITE 12/15/2016 LANDY LEOS, ASTON Andersen Ot 786.09 RESPIRATORY ABNORM NEC 12/15/2016 ASTON BILL MD Ot 787.20 DYSPHAGIA, UNSPECIFIED 12/15/2016 PREM ESTEVEZ RECONSTRUCTIVE DENTIST Ot V10.21 HX-LARYNGEAL MALIGNANCY 12/15/2016 PREM ESTEVEZ RECONSTRUCTIVE DENTIST Ot V12.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 12/15/2016 PREM ESTEVEZ RECONSTRUCTIVE DENTIST Ot V58.69 OTH MED,LT,CURRENT USE 12/15/2016 PREM ESTEVEZ RECONSTRUCTIVE DENTIST Ot V67.1 RADIOTHERAPY FOLLOW-UP 12/15/2016 ESTEVEZPREM Jo RECONSTRUCTIVE DENTIST Ot V67.2 CHEMOTHERAPY FOLLOW-UP 12/15/2016 ESTEVEZPREM Jo RECONSTRUCTIVE DENTIST Ot 530.3 ESOPHAGEAL STRICTURE 12/15/2016 ESTEVEZPREM Jo RECONSTRUCTIVE DENTIST Ot 780.4 DIZZINESS AND GIDDINESS 12/15/2016 ESTEVEZPREM Jo RECONSTRUCTIVE DENTIST Ot 784.0 HEADACHE 12/15/2016 HERB PREM Jo RECONSTRUCTIVE DENTIST Ot V10.21 HX-LARYNGEAL MALIGNANCY 12/15/2016 ESTEVEZPREM RECONSTRUCTIVE DENTIST Ot V12.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 12/15/2016 ESTEVEZPREM Jo RECONSTRUCTIVE DENTIST Ot V58.69 OTH MED,LT,CURRENT USE 12/15/2016 PREM ESTEVEZ RECONSTRUCTIVE DENTIST Ot V67.1 RADIOTHERAPY FOLLOW-UP 12/15/2016 ESTEVEZPREM oJ RECONSTRUCTIVE DENTIST Ot V67.2 CHEMOTHERAPY FOLLOW-UP 12/15/2016 HERB PREM Jo RECONSTRUCTIVE DENTIST Ot 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 12/15/2016 HERB PREM Jo RECONSTRUCTIVE DENTIST Ot 780.4 DIZZINESS AND GIDDINESS 12/15/2016 ESTEVEZPREM Jo RECONSTRUCTIVE DENTIST Ot 784.0 HEADACHE 12/15/2016 ESTEVEZPREM Jo RECONSTRUCTIVE DENTIST Ot V12.54 PERSONAL HX OF TIA, CEREBRAL INFARCTION 12/15/2016 VIRA ABRAHAM RECONSTRUCTIVE DENTIST Ot 719.41 JOINT PAIN-SHLDER 12/15/2016 VIRA ABRAHAM RECONSTRUCTIVE DENTIST Ot E000.8 OTHER EXTERNAL CAUSE STATUS 12/15/2016 VIRA ABRAHAM RECONSTRUCTIVE DENTIST Ot E849.0 ACCIDENT IN HOME 12/15/2016 VIRA ABRAHAM RECONSTRUCTIVE DENTIST Ot E888.9 FALL NOS 12/15/2016 DEEPAK LEOS, JAJA Rushing Ot V76.12 OTH SCREEN MAMMO-MALIGN NEOPLASM OF BERNABE 12/15/2016 SHWETA DPM, ERLIN Q Ot 735.0 HALLUX VALGUS 12/15/2016 SHWETA DPM, ERLIN Q Ot V72.84 EXAM PRE-OPERATIVE NOS 12/15/2016 SHWETA DPM, ERLIN Q Ot V74.8 SCREEN-BACTERIAL DIS NEC 12/15/2016 JASON BENITEZ Ot V10.21 HX-LARYNGEAL MALIGNANCY 12/15/2016 JASON BENITEZ Boom Ot V12.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 12/15/2016 JASON BENITEZ Ot V58.69 OTH MED,LT,CURRENT USE 12/15/2016 JASON BENITEZ Boom Ot V67.1 RADIOTHERAPY FOLLOW-UP 12/15/2016 JASON BENITEZ Boom Ot V67.2 CHEMOTHERAPY FOLLOW-UP 12/15/2016 Ot 272.0 PURE HYPERCHOLESTEROLEM 12/15/2016 Ot 300.00 ANXIETY STATE NOS 12/15/2016 Ot 530.3 ESOPHAGEAL STRICTURE 12/15/2016 Ot 530.81 ESOPHAGEAL REFLUX 12/15/2016 Ot V58.69 OTH MED,LT, CURRENT USE 12/15/2016 NATHALIE JACOBSEN MD Ot 272.0 PURE HYPERCHOLESTEROLEM 12/15/2016 NATHALIE JACOBSEN MD Ot 300.00 ANXIETY STATE NOS 12/15/2016 NATHALIE JACOBSEN MD Ot 530.3 ESOPHAGEAL STRICTURE 12/15/2016 NATHALIE JACOBSEN MD Ot 530.81 ESOPHAGEAL REFLUX 12/15/2016 NATHALIE JACOBSEN MD Ot 728.87 MUSCLE WEAKNESS (GENERALIZED) 12/15/2016 DELMAR LEOS, NATHALIE King Ot 781.94 FACIAL WEAKNESS 12/15/2016 NATHALIE JACOBSEN MD Ot 784.59 OTHER SPEECH DISTURBANCE 12/15/2016 NATHALIE JACOBSEN MD Ot V58.69 OTH MED,LT,CURRENT USE 12/15/2016 VIRA ABRAHAM RECONSTRUCTIVE DENTIST Ot 729.5 PAIN IN LIMB 12/15/2016 PREM ESTEVEZP Ot V10.21 HX-LARYNGEAL MALIGNANCY 12/15/2016 PREM ESTEVEZ RECONSTRUCTIVE DENTIST Ot V12.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 12/15/2016 PREM ESTEVEZP Ot V58.69 OTH MED,LT,CURRENT USE 12/15/2016 PREM ESTEVEZ RECONSTRUCTIVE DENTIST Ot V67.1 RADIOTHERAPY FOLLOW-UP 12/15/2016 PREM ESTEVEZ RECONSTRUCTIVE DENTIST Ot V67.2 CHEMOTHERAPY FOLLOW-UP 12/15/2016 PREM ESTEVEZ RECONSTRUCTIVE DENTIST Ot 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 12/15/2016 PREM ESTEVEZ RECONSTRUCTIVE DENTIST Ot 728.87 MUSCLE WEAKNESS (GENERALIZED) 12/15/2016 PREM ESTEVEZ RECONSTRUCTIVE DENTIST Ot 780.4 DIZZINESS AND GIDDINESS 12/15/2016 BLOSSOM HURD SOCIAL WORK ADMINISTRATOR Ot 786.2 COUGH 12/15/2016 NATHALIE JACOBSEN MD Ot 272.0 PURE HYPERCHOLESTEROLEM 12/15/2016 NATHALIE JACOBSEN MD Ot 300.00 ANXIETY STATE NOS 12/15/2016 NATHALIE JACOBSEN MD Ot 530.3 ESOPHAGEAL STRICTURE 12/15/2016 NATHALIE JACOBSEN MD Ot 530.81 ESOPHAGEAL REFLUX 12/15/2016 NATHALIE JACOBSEN MD Ot V58.69 OT MED,LT,CURRENT USE 12/15/2016 VIRA ABRAHAMP Ot 719.41 JOINT PAIN-SHLDER 12/15/2016 DEEPAK LEOS, JAJA Rushing Ot R10.9 UNSPECIFIED ABDOMINAL PAIN 12/15/2016 JAJA SOTELO MD Ot R74.8 ABNORMAL LEVELS OF OTHER SERUM ENZYMES 12/15/2016 LIA HELMS SOCIAL WORK ADMINISTRATOR Ot M25.551 PAIN IN RIGHT HIP 12/15/2016 LIA HELMS APRN Ot M25.561 PAIN IN RIGHT KNEE 12/15/2016 LIA HELMS SOCIAL WORK ADMINISTRATOR Ot R06.02 SHORTNESS OF BREATH 12/15/2016 ASTON BILL MD Ot R49.0 DYSPHONIA 12/15/2016 ASTON BILL MD Ot 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, 12/15/2016 ASTON BILL MD Ot R06.02 SHORTNESS OF BREATH 12/15/2016 ASTON BILL MD Ot R49.0 DYSPHONIA 12/15/2016 ASTON BILL MD Ot 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, 12/15/2016 LIA HELMS SOCIAL WORK ADMINISTRATOR Ot R00.2 PALPITATIONS 12/15/2016 LIA HELMS SOCIAL WORK ADMINISTRATOR Ot R06.02 SHORTNESS OF BREATH 12/15/2016 VIRA ABRAHAMP Ot R22.0 LOCALIZED SWELLING, MASS AND LUMP, HEAD 12/15/2016 ANGEL PUENTES DO Ot Z01.818 ENCOUNTER FOR OTHER PREPROCEDURAL EXAMIN 12/15/2016 ANGEL PUENTES DO Ot Z12.11 ENCOUNTER FOR SCREENING FOR MALIGNANT NE 12/28/2016 Ot 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 12/28/2016 Ot 562.10 DIVERTICULOSIS COLON (W/O MENT OF HEMORR 12/28/2016 Ot 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 12/28/2016 Ot 528.9 ORAL SOFT TISSUE DIS NEC 12/28/2016 Ot 530.3 ESOPHAGEAL STRICTURE 12/28/2016 Ot 585.3 CHRONIC KIDNEY DISEASE, STAGE III (MODER 12/28/2016 Ot V12.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 12/28/2016 Ot V15.3 HX OF IRRADIATION 12/28/2016 Ot V58.61 ANTICOAGULANTS,LT,CURRENT USE 12/28/2016 Ot V58.69 OTH MED,LT, CURRENT USE 12/28/2016 Ot V87.41 PERSONAL HISTORY OF ANTINEOPLASTIC CHEMO 12/28/2016 Ot V54.01 ENCNTR FOR REMOVAL OF INTERNAL FIXATION 12/28/2016 Ot V72.84 EXAM PRE- OPERATIVE NOS 12/28/2016 Ot 560.9 INTESTINAL OBSTRUCT NOS 12/28/2016 Ot 562.11 DIVERTICULITIS COLON (W/O MENT OF HEMORR 12/28/2016 Ot V72.63 PRE- PROCEDURAL LABORATORY EXAMINATION 12/28/2016 Ot V74.8 SCREEN- BACTERIAL DIS NEC 12/28/2016 Ot 789.00 ABDOMINAL PAIN, UNSPECIFIED SITE 12/28/2016 Ot 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 12/28/2016 Ot 780.2 SYNCOPE AND COLLAPSE 12/28/2016 Ot V10.03 HX- ESOPHAGEAL MALIGNANCY 12/28/2016 Ot V72.84 EXAM PRE- OPERATIVE NOS 12/28/2016 Ot 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 12/28/2016 Ot 789.00 ABDOMINAL PAIN, UNSPECIFIED SITE 12/28/2016 Ot V12.79 PERSONAL HISTORY OTH SPEC DIGESTIVE SYST 12/28/2016 Ot 530.3 ESOPHAGEAL STRICTURE 12/28/2016 Ot 780.4 DIZZINESS AND GIDDINESS 12/28/2016 Ot 784.0 HEADACHE 12/28/2016 Ot V10.21 HX- LARYNGEAL MALIGNANCY 12/28/2016 Ot V12.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 12/28/2016 Ot V58.69 OTH MED,LT, CURRENT USE 12/28/2016 Ot V67.1 RADIOTHERAPY FOLLOW-UP 12/28/2016 Ot V67.2 CHEMOTHERAPY FOLLOW-UP 12/28/2016 Ot 780.4 DIZZINESS AND GIDDINESS 12/28/2016 Ot 784.0 HEADACHE 12/28/2016 PREM ESTEVEZ RECONSTRUCTIVE DENTIST Ot 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 12/28/2016 VIRA ABRAHAM RECONSTRUCTIVE DENTIST Ot V76.12 OTH SCREEN MAMMO-MALIGN NEOPLASM OF [place]ERNABE 12/28/2016 Ot V68.01 DISABILITY EXAMINATION 12/28/2016 Ot V82.89 SCREEN FOR OTH SPECIF CONDITIONS 12/28/2016 JASON BENITEZ Ot V10.21 HX-LARYNGEAL MALIGNANCY 12/28/2016 JASON BENITEZ Ot V12.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 12/28/2016 JASON BENITEZ Ot V58.69 OTH MED,LT,CURRENT USE 12/28/2016 JASON BENITEZ Ot V67.1 RADIOTHERAPY FOLLOW-UP 12/28/2016 JASON BENITEZ Ot V67.2 CHEMOTHERAPY FOLLOW-UP 12/28/2016 VIRA ABRAHAMP Ot 729.1 MYALGIA AND MYOSITIS NOS 12/28/2016 VIRA ABRAHAM RECONSTRUCTIVE DENTIST Ot 784.0 HEADACHE 12/28/2016 VIRA ABRAHAM RECONSTRUCTIVE DENTIST Ot 787.02 NAUSEA ALONE 12/28/2016 VIRA ABRAHAM RECONSTRUCTIVE DENTIST Ot 919.4 INSECT BITE NEC 12/28/2016 VIRA ABRAHAM RECONSTRUCTIVE DENTIST Ot E000.8 OTHER EXTERNAL CAUSE STATUS 12/28/2016 VIRA ABRAHAM RECONSTRUCTIVE DENTIST Ot E906.4 NONVENOM ARTHROPOD BITE 12/28/2016 ASTON BILL MD Ot 786.09 RESPIRATORY ABNORM NEC 12/28/2016 ASTON BILL MD Ot 787.20 DYSPHAGIA, UNSPECIFIED 12/28/2016 PREM ESTEVEZ RECONSTRUCTIVE DENTIST Ot V10.21 HX-LARYNGEAL MALIGNANCY 12/28/2016 PREM ESTEVEZP Ot V12.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 12/28/2016 PREM ESTEVEZ Ot V58.69 OTH MED,LT,CURRENT USE 12/28/2016 PREM ESTEVEZ RECONSTRUCTIVE DENTIST Ot V67.1 RADIOTHERAPY FOLLOW-UP 12/28/2016 PREM ESTEVEZ RECONSTRUCTIVE DENTIST Ot V67.2 CHEMOTHERAPY FOLLOW-UP 12/28/2016 PREM ESTEVEZ RECONSTRUCTIVE DENTIST Ot 530.3 ESOPHAGEAL STRICTURE 12/28/2016 ESTEVEZPREM Jo RECONSTRUCTIVE DENTIST Ot 780.4 DIZZINESS AND GIDDINESS 12/28/2016 ESTEVEZPREM Jo RECONSTRUCTIVE DENTIST Ot 784.0 HEADACHE 12/28/2016 ESTEVEZPREM Jo RECONSTRUCTIVE DENTIST Ot V10.21 HX-LARYNGEAL MALIGNANCY 12/28/2016 HERB PREM Jo RECONSTRUCTIVE DENTIST Ot V12.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 12/28/2016 ESTEVEZPREM Jo RECONSTRUCTIVE DENTIST Ot V58.69 OTH MED,LT,CURRENT USE 12/28/2016 ESTEVEZPREM Jo RECONSTRUCTIVE DENTIST Ot V67.1 RADIOTHERAPY FOLLOW-UP 12/28/2016 HERBPREM RECONSTRUCTIVE DENTIST Ot V67.2 CHEMOTHERAPY FOLLOW-UP 12/28/2016 ESTEVEZPREM Jo RECONSTRUCTIVE DENTIST Ot 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 12/28/2016 ESTEVEZPREM Jo RECONSTRUCTIVE DENTIST Ot 780.4 DIZZINESS AND GIDDINESS 12/28/2016 ESTEVEZPREM Jo RECONSTRUCTIVE DENTIST Ot 784.0 HEADACHE 12/28/2016 HERB PREM Jo RECONSTRUCTIVE DENTIST Ot V12.54 PERSONAL HX OF TIA, CEREBRAL INFARCTION 12/28/2016 VIRA ABRAHAM RECONSTRUCTIVE DENTIST Ot 719.41 JOINT PAIN-SHLDER 12/28/2016 VIRA ABRAHAM RECONSTRUCTIVE DENTIST Ot E000.8 OTHER EXTERNAL CAUSE STATUS 12/28/2016 VIRA ABRAHAM RECONSTRUCTIVE DENTIST Ot E849.0 ACCIDENT IN HOME 12/28/2016 VIRA ABRAHAM RECONSTRUCTIVE DENTIST Ot E888.9 FALL NOS 12/28/2016 DEEPAK LEOS, JAJA Rushing Ot V76.12 OTH SCREEN MAMMO-MALIGN NEOPLASM OF BERNABE 12/28/2016 SHWETA DPM, ERLIN Q Ot 735.0 HALLUX VALGUS 12/28/2016 SHWETA DPM, ERLIN Q Ot V72.84 EXAM PRE-OPERATIVE NOS 12/28/2016 SHWETA DPM, ERLIN Q Ot V74.8 SCREEN-BACTERIAL DIS NEC 12/28/2016 JASON BENITEZ Ot V10.21 HX-LARYNGEAL MALIGNANCY 12/28/2016 JASON BENITEZ Ot V12.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 12/28/2016 JASON BENITEZ Ot V58.69 OTH MED,LT,CURRENT USE 12/28/2016 JASON BENITEZ Ot V67.1 RADIOTHERAPY FOLLOW-UP 12/28/2016 JASON BENITEZ Ot V67.2 CHEMOTHERAPY FOLLOW-UP 12/28/2016 Ot 272.0 PURE HYPERCHOLESTEROLEM 12/28/2016 Ot 300.00 ANXIETY STATE NOS 12/28/2016 Ot 530.3 ESOPHAGEAL STRICTURE 12/28/2016 Ot 530.81 ESOPHAGEAL REFLUX 12/28/2016 Ot V58.69 OTH MED,LT, CURRENT USE 12/28/2016 NATHALIE JACOBSEN MD Ot 272.0 PURE HYPERCHOLESTEROLEM 12/28/2016 NATHALIE JACOBSEN MD Ot 300.00 ANXIETY STATE NOS 12/28/2016 NATHALIE JACOBSEN MD Ot 530.3 ESOPHAGEAL STRICTURE 12/28/2016 NATHALIE JACOBSEN MD Ot 530.81 ESOPHAGEAL REFLUX 12/28/2016 NATHALIE JACOBSEN MD Ot 728.87 MUSCLE WEAKNESS (GENERALIZED) 12/28/2016 NATHALIE JACOBSEN MD Ot 781.94 FACIAL WEAKNESS 12/28/2016 NATHALIE JACOBSEN MD Ot 784.59 OTHER SPEECH DISTURBANCE 12/28/2016 NATHALIE JACOBSEN MD Ot V58.69 OTH MED,LT,CURRENT USE 12/28/2016 VIRA ABRAHAM RECONSTRUCTIVE DENTIST Ot 729.5 PAIN IN LIMB 12/28/2016 PREM ESTEVEZ RECONSTRUCTIVE DENTIST Ot V10.21 HX-LARYNGEAL MALIGNANCY 12/28/2016 PREM ESTEVEZ RECONSTRUCTIVE DENTIST Ot V12.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 12/28/2016 PREM ESTEVEZP Ot V58.69 OT MED,LT,CURRENT USE 12/28/2016 PREM ESTEVEZ RECONSTRUCTIVE DENTIST Ot V67.1 RADIOTHERAPY FOLLOW-UP 12/28/2016 PREM ESTEVEZ RECONSTRUCTIVE DENTIST Ot V67.2 CHEMOTHERAPY FOLLOW-UP 12/28/2016 PREM ESTEVEZ RECONSTRUCTIVE DENTIST Ot 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 12/28/2016 PREM ESTEVEZ RECONSTRUCTIVE DENTIST Ot 728.87 MUSCLE WEAKNESS (GENERALIZED) 12/28/2016 PREM ESTEVEZ RECONSTRUCTIVE DENTIST Ot 780.4 DIZZINESS AND GIDDINESS 12/28/2016 BLOSSOM HURD APRN Ot 786.2 COUGH 12/28/2016 NATHALIE JACOBSEN MD Ot 272.0 PURE HYPERCHOLESTEROLEM 12/28/2016 NATHALIE JACOBSEN MD Ot 300.00 ANXIETY STATE NOS 12/28/2016 NATHALIE JACOBSEN MD Ot 530.3 ESOPHAGEAL STRICTURE 12/28/2016 NATHALIE JACOBSEN MD Ot 530.81 ESOPHAGEAL REFLUX 12/28/2016 NATHALIE JACOBSEN MD Ot V58.69 OTH MED,LT,CURRENT USE 12/28/2016 VIRA ABRAHAM Ot 719.41 JOINT PAIN-SHLDER 12/28/2016 JAJA SOTELO MD Ot R10.9 UNSPECIFIED ABDOMINAL PAIN 12/28/2016 JAJA SOTELO MD Ot R74.8 ABNORMAL LEVELS OF OTHER SERUM ENZYMES 12/28/2016 LIA HELMS APRN Ot M25.551 PAIN IN RIGHT HIP 12/28/2016 LIA HELMS APRN Ot M25.561 PAIN IN RIGHT KNEE 12/28/2016 LIA HELMS APRN Ot R06.02 SHORTNESS OF BREATH 12/28/2016 ASTON BILL MD Ot R49.0 DYSPHONIA 12/28/2016 ASTON BILL MD Ot 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, 12/28/2016 ASTON BILL MD Ot R06.02 SHORTNESS OF BREATH 12/28/2016 ASTON BILL MD Ot R49.0 DYSPHONIA 12/28/2016 ASTON BILL MD Ot 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, 12/28/2016 LIA HELMS APRN Ot R00.2 PALPITATIONS 12/28/2016 LIA HELMS APRN Ot R06.02 SHORTNESS OF BREATH 12/28/2016 VIRA ABRAHAM Ot R22.0 LOCALIZED SWELLING, MASS AND LUMP, HEAD 12/28/2016 ANGEL PUENTES DO Ot Z01.818 ENCOUNTER FOR OTHER PREPROCEDURAL EXAMIN 12/28/2016 ANGEL PUENTES DO Ot Z12.11 ENCOUNTER FOR SCREENING FOR MALIGNANT NE 04/07/2017 Ot 401.9 04/07/2017 Ot 562.10 04/07/2017 Ot 565.1 04/07/2017 Ot 566 04/07/2017 Ot V58.69 04/07/2017 Ot V72.81 04/07/2017 Ot V72.83 04/07/2017 Ot 788.41 04/07/2017 Ot 724.79 04/07/2017 Ot 789.03 04/07/2017 Ot V70.3 04/07/2017 Ot 729.5 04/07/2017 Ot 959.7 04/07/2017 Ot E849.0 04/07/2017 Ot E928.9 04/07/2017 Ot V76.12 04/07/2017 Ot 722.52 LUMB/ LUMBOSAC DISC DEGEN 04/07/2017 Ot V68.01 DISABILITY EXAMINATION 04/07/2017 Ot V82.89 SCREEN FOR OT SPECIF CONDITIONS 04/07/2017 Ot 784.2 SWELLING IN HEAD NECK 04/07/2017 Ot 785.6 ENLARGEMENT LYMPH NODES 04/07/2017 Ot 784.2 SWELLING IN HEAD NECK 04/07/2017 Ot 453.81 ACUTE VENOUS EMBOLISM THROMBOSIS SUPER 04/07/2017 Ot V55.1 ATTEN TO GASTROSTOMY 04/07/2017 Ot 785.1 PALPITATIONS 04/07/2017 Ot 786.50 CHEST PAIN NOS 04/07/2017 Ot 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 04/07/2017 Ot 785.1 PALPITATIONS 04/07/2017 Ot 786.50 CHEST PAIN NOS 04/07/2017 Ot 780.79 OTH MALAISE FATIGUE 04/07/2017 Ot 785.1 PALPITATIONS 04/07/2017 Ot 786.59 CHEST PAIN NEC 04/07/2017 Ot 786.2 COUGH 04/07/2017 Ot 722.52 LUMB/ LUMBOSAC DISC DEGEN 04/07/2017 Ot 959.19 OTH INJURY OF OTHER SITES OF TRUNK 04/07/2017 Ot 959.6 HIP THIGH INJURY NOS 04/07/2017 Ot E000.8 OTHER EXTERNAL CAUSE STATUS 04/07/2017 Ot E849.0 ACCIDENT IN HOME 04/07/2017 Ot E888.9 FALL NOS 04/07/2017 Ot 518.0 PULMONARY COLLAPSE 04/07/2017 Ot 786.50 CHEST PAIN NOS 04/07/2017 Ot 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 04/07/2017 Ot 611.72 LUMP OR MASS IN BREAST 04/07/2017 Ot V76.12 OT SCREEN MAMMO-MALIGN NEOPLASM OF BERNABE 04/07/2017 Ot 729.5 PAIN IN LIMB 04/07/2017 Ot V12.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 04/07/2017 Ot 611.72 LUMP OR MASS IN BREAST 04/07/2017 Ot 729.5 PAIN IN LIMB 04/07/2017 Ot V12.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 04/07/2017 Ot 610.3 FIBROSCLEROSIS OF BREAST 04/07/2017 Ot 611.3 FAT NECROSIS OF BREAST 04/07/2017 Ot 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 04/07/2017 Ot 998.12 HEMATOMA COMPLIC A PROC 04/07/2017 Ot 625.9 FEM GENITAL SYMPTOMS NOS 04/07/2017 Ot 719.45 JOINT PAIN- PELVIS 04/07/2017 Ot 721.3 LUMBOSACRAL SPONDYLOSIS 04/07/2017 Ot 793.80 UNSPEC ABNORMAL MAMMOGRAM 04/07/2017 Ot V10.21 HX- LARYNGEAL MALIGNANCY 04/07/2017 Ot V12.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 04/07/2017 Ot V58.69 OTH MED,LT, CURRENT USE 04/07/2017 Ot V67.1 RADIOTHERAPY FOLLOW-UP 04/07/2017 Ot V67.2 CHEMOTHERAPY FOLLOW-UP 04/07/2017 Ot 719.41 JOINT PAIN- SHLDER 04/07/2017 Ot 722.4 CERVICAL DISC DEGEN 04/07/2017 Ot 786.50 CHEST PAIN NOS 04/07/2017 Ot 959.9 INJURY-SITE NOS 04/07/2017 Ot E000.8 OTHER EXTERNAL CAUSE STATUS 04/07/2017 Ot E819.9 TRAFFIC ACC NOS-PERS NOS 04/07/2017 Ot V10.21 HX- LARYNGEAL MALIGNANCY 04/07/2017 Ot V12.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 04/07/2017 Ot V58.69 OTH MED,LT, CURRENT USE 04/07/2017 Ot V67.1 RADIOTHERAPY FOLLOW-UP 04/07/2017 Ot V67.2 CHEMOTHERAPY FOLLOW-UP 04/07/2017 Ot 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 04/07/2017 Ot V10.21 HX- LARYNGEAL MALIGNANCY 04/07/2017 Ot V12.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 04/07/2017 Ot V58.69 OTH MED,LT, CURRENT USE 04/07/2017 Ot V67.1 RADIOTHERAPY FOLLOW-UP 04/07/2017 Ot V67.2 CHEMOTHERAPY FOLLOW-UP 04/07/2017 Ot 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 04/07/2017 Ot 562.10 DIVERTICULOSIS COLON (W/O MENT OF HEMORR 04/07/2017 Ot V76.12 OTH SCREEN MAMMO-MALIGN NEOPLASM OF BERNABE 04/07/2017 Ot 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 04/07/2017 Ot 528.9 ORAL SOFT TISSUE DIS NEC 04/07/2017 Ot 530.3 ESOPHAGEAL STRICTURE 04/07/2017 Ot 585.3 CHRONIC KIDNEY DISEASE, STAGE III (MODER 04/07/2017 Ot V12.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 04/07/2017 Ot V15.3 HX OF IRRADIATION 04/07/2017 Ot V58.61 ANTICOAGULANTS,LT,CURRENT USE 04/07/2017 Ot V58.69 OTH MED,LT, CURRENT USE 04/07/2017 Ot V87.41 PERSONAL HISTORY OF ANTINEOPLASTIC CHEMO 04/07/2017 Ot V54.01 ENCNTR FOR REMOVAL OF INTERNAL FIXATION 04/07/2017 Ot V72.84 EXAM PRE- OPERATIVE NOS 04/07/2017 Ot 560.9 INTESTINAL OBSTRUCT NOS 04/07/2017 Ot 562.11 DIVERTICULITIS COLON (W/O MENT OF HEMORR 04/07/2017 Ot V72.63 PRE- PROCEDURAL LABORATORY EXAMINATION 04/07/2017 Ot V74.8 SCREEN- BACTERIAL DIS NEC 04/07/2017 Ot 789.00 ABDOMINAL PAIN, UNSPECIFIED SITE 04/07/2017 Ot 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 04/07/2017 Ot 780.2 SYNCOPE AND COLLAPSE 04/07/2017 Ot V10.03 HX- ESOPHAGEAL MALIGNANCY 04/07/2017 Ot V72.84 EXAM PRE- OPERATIVE NOS 04/07/2017 Ot 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 04/07/2017 Ot 789.00 ABDOMINAL PAIN, UNSPECIFIED SITE 04/07/2017 Ot V12.79 PERSONAL HISTORY OTH SPEC DIGESTIVE SYST 04/07/2017 Ot 530.3 ESOPHAGEAL STRICTURE 04/07/2017 Ot 780.4 DIZZINESS AND GIDDINESS 04/07/2017 Ot 784.0 HEADACHE 04/07/2017 Ot V10.21 HX- LARYNGEAL MALIGNANCY 04/07/2017 Ot V12.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 04/07/2017 Ot V58.69 OTH MED,LT, CURRENT USE 04/07/2017 Ot V67.1 RADIOTHERAPY FOLLOW-UP 04/07/2017 Ot V67.2 CHEMOTHERAPY FOLLOW-UP 04/07/2017 Ot 780.4 DIZZINESS AND GIDDINESS 04/07/2017 Ot 784.0 HEADACHE 04/07/2017 PREM ESTEVEZ RECONSTRUCTIVE DENTIST Ot 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 04/07/2017 VIRA ABRAHAM RECONSTRUCTIVE DENTIST Ot V76.12 OTH SCREEN MAMMO-MALIGN NEOPLASM OF [place]ERNABE 04/07/2017 Ot V68.01 DISABILITY EXAMINATION 04/07/2017 Ot V82.89 SCREEN FOR OTH SPECIF CONDITIONS 04/07/2017 JASON BENITEZ Ot V10.21 HX-LARYNGEAL MALIGNANCY 04/07/2017 JASON BENITEZ Ot V12.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 04/07/2017 JASON BENITEZ Ot V58.69 OTH MED,LT,CURRENT USE 04/07/2017 JASON BENITEZ Ot V67.1 RADIOTHERAPY FOLLOW-UP 04/07/2017 JASON BENITEZ Ot V67.2 CHEMOTHERAPY FOLLOW-UP 04/07/2017 IVRA ABRAHAM RECONSTRUCTIVE DENTIST Ot 729.1 MYALGIA AND MYOSITIS NOS 04/07/2017 VIRA ABRAHAM RECONSTRUCTIVE DENTIST Ot 784.0 HEADACHE 04/07/2017 VIRA ABRAHAM RECONSTRUCTIVE DENTIST Ot 787.02 NAUSEA ALONE 04/07/2017 VIRA ABRAHAM RECONSTRUCTIVE DENTIST Ot 919.4 INSECT BITE NEC 04/07/2017 VIRA ABRAHAM RECONSTRUCTIVE DENTIST Ot E000.8 OTHER EXTERNAL CAUSE STATUS 04/07/2017 VIRA BARAHAM RECONSTRUCTIVE DENTIST Ot E906.4 NONVENOM ARTHROPOD BITE 04/07/2017 LANDY LEOS, ASTON Andersen Ot 786.09 RESPIRATORY ABNORM NEC 04/07/2017 LANDY LEOS, ASTON Andersen Ot 787.20 DYSPHAGIA, UNSPECIFIED 04/07/2017 PREM ESTEVEZ RECONSTRUCTIVE DENTIST Ot V10.21 HX-LARYNGEAL MALIGNANCY 04/07/2017 PREM ESTEVEZ RECONSTRUCTIVE DENTIST Ot V12.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 04/07/2017 PREM ESTEVEZ RECONSTRUCTIVE DENTIST Ot V58.69 OTH MED,LT,CURRENT USE 04/07/2017 PREM ESTEVEZ RECONSTRUCTIVE DENTIST Ot V67.1 RADIOTHERAPY FOLLOW-UP 04/07/2017 PREM ESTEVEZ RECONSTRUCTIVE DENTIST Ot V67.2 CHEMOTHERAPY FOLLOW-UP 04/07/2017 ESTEVEZ PREM Jo RECONSTRUCTIVE DENTIST Ot 530.3 ESOPHAGEAL STRICTURE 04/07/2017 PREM ESTEVEZ RECONSTRUCTIVE DENTIST Ot 780.4 DIZZINESS AND GIDDINESS 04/07/2017 PREM ESTEVEZ RECONSTRUCTIVE DENTIST Ot 784.0 HEADACHE 04/07/2017 HERB PREM Jo RECONSTRUCTIVE DENTIST Ot V10.21 HX-LARYNGEAL MALIGNANCY 04/07/2017 ESTEVEZ PREM Jo RECONSTRUCTIVE DENTIST Ot V12.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 04/07/2017 PREM ESTEVEZ RECONSTRUCTIVE DENTIST Ot V58.69 OT MED,LT,CURRENT USE 04/07/2017 PREM ESTEVEZ RECONSTRUCTIVE DENTIST Ot V67.1 RADIOTHERAPY FOLLOW-UP 04/07/2017 ESTEVEZ PREM Jo RECONSTRUCTIVE DENTIST Ot V67.2 CHEMOTHERAPY FOLLOW-UP 04/07/2017 HERB PREM Jo RECONSTRUCTIVE DENTIST Ot 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 04/07/2017 HERB PREM Jo RECONSTRUCTIVE DENTIST Ot 780.4 DIZZINESS AND GIDDINESS 04/07/2017 ESTEVEZ PREM Jo RECONSTRUCTIVE DENTIST Ot 784.0 HEADACHE 04/07/2017 ESTEVEZ PREM Jo RECONSTRUCTIVE DENTIST Ot V12.54 PERSONAL HX OF TIA, CEREBRAL INFARCTION 04/07/2017 VIRA ABRAHAM RECONSTRUCTIVE DENTIST Ot 719.41 JOINT PAIN-SHLDER 04/07/2017 VIRA ABRAHAM RECONSTRUCTIVE DENTIST Ot E000.8 OTHER EXTERNAL CAUSE STATUS 04/07/2017 VIRA ABRAHAM RECONSTRUCTIVE DENTIST Ot E849.0 ACCIDENT IN HOME 04/07/2017 VIRA ABRAHAM RECONSTRUCTIVE DENTIST Ot E888.9 FALL NOS 04/07/2017 DEEPAK LEOS, JAJA Rushing Ot V76.12 OTH SCREEN MAMMO-MALIGN NEOPLASM OF [place] 04/07/2017 SHWETA DPM, ERLIN Q Ot 735.0 HALLUX VALGUS 04/07/2017 SHWETA DPM, ERLIN Q Ot V72.84 EXAM PRE-OPERATIVE NOS 04/07/2017 SHWETA DPM, ERLIN Q Ot V74.8 SCREEN-BACTERIAL DIS NEC 04/07/2017 JASON BENITEZ Ot V10.21 HX-LARYNGEAL MALIGNANCY 04/07/2017 JASON BENITEZ Ot V12.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 04/07/2017 JASON BENITEZ Ot V58.69 OTH MED,LT,CURRENT USE 04/07/2017 JASON BENITEZ Ot V67.1 RADIOTHERAPY FOLLOW-UP 04/07/2017 JASON BENITEZ Ot V67.2 CHEMOTHERAPY FOLLOW-UP 04/07/2017 Ot 272.0 PURE HYPERCHOLESTEROLEM 04/07/2017 Ot 300.00 ANXIETY STATE NOS 04/07/2017 Ot 530.3 ESOPHAGEAL STRICTURE 04/07/2017 Ot 530.81 ESOPHAGEAL REFLUX 04/07/2017 Ot V58.69 OTH MED,LT, CURRENT USE 04/07/2017 DELMAR LEOS, NATHALIE King Ot 272.0 PURE HYPERCHOLESTEROLEM 04/07/2017 DELMAR LEOS, NATHALIE King Ot 300.00 ANXIETY STATE NOS 04/07/2017 DELMAR LEOS, NATHALIE King Ot 530.3 ESOPHAGEAL STRICTURE 04/07/2017 DELMAR LEOS, NATHALIE King Ot 530.81 ESOPHAGEAL REFLUX 04/07/2017 NATHALIE JACOBSEN MD Ot 728.87 MUSCLE WEAKNESS (GENERALIZED) 04/07/2017 DELMAR LEOS, NATHALIE King Ot 781.94 FACIAL WEAKNESS 04/07/2017 DELMAR LEOS, NATHALIE King Ot 784.59 OTHER SPEECH DISTURBANCE 04/07/2017 NATHALIE JACOBSEN MD Ot V58.69 OTH MED,LT,CURRENT USE 04/07/2017 VIRA ABRAHAM RECONSTRUCTIVE DENTIST Ot 729.5 PAIN IN LIMB 04/07/2017 PREM ESTEVEZP Ot V10.21 HX-LARYNGEAL MALIGNANCY 04/07/2017 PREM ESTEVEZ RECONSTRUCTIVE DENTIST Ot V12.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 04/07/2017 PREM ESTEVEZP Ot V58.69 OTH MED,LT,CURRENT USE 04/07/2017 PREM ESTEVEZ RECONSTRUCTIVE DENTIST Ot V67.1 RADIOTHERAPY FOLLOW-UP 04/07/2017 PREM ESTEVEZ RECONSTRUCTIVE DENTIST Ot V67.2 CHEMOTHERAPY FOLLOW-UP 04/07/2017 PREM ESTEVEZ RECONSTRUCTIVE DENTIST Ot 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 04/07/2017 PREM ESTEVEZ RECONSTRUCTIVE DENTIST Ot 728.87 MUSCLE WEAKNESS (GENERALIZED) 04/07/2017 CRISTIANO ESTEVEZKEELY Sandro RECONSTRUCTIVE DENTIST Ot 780.4 DIZZINESS AND GIDDINESS 04/07/2017 BLOSSOM HURD SOCIAL WORK ADMINISTRATOR Ot 786.2 COUGH 04/07/2017 NATHALIE JACOBSEN MD Ot 272.0 PURE HYPERCHOLESTEROLEM 04/07/2017 NATHALIE JACOBSEN MD Ot 300.00 ANXIETY STATE NOS 04/07/2017 NATHALIE JACOBSEN MD Ot 530.3 ESOPHAGEAL STRICTURE 04/07/2017 NATHALIE JACOBSEN MD Ot 530.81 ESOPHAGEAL REFLUX 04/07/2017 NATHALIE JACOBSEN MD Ot V58.69 OT MED,LT,CURRENT USE 04/07/2017 VIRA ABRAHAMP Ot 719.41 JOINT PAIN-SHLDER 04/07/2017 JAJA SOTELO MD Ot R10.9 UNSPECIFIED ABDOMINAL PAIN 04/07/2017 JAJA SOTELO MD Ot R74.8 ABNORMAL LEVELS OF OTHER SERUM ENZYMES 04/07/2017 LIA HELMS APRN Ot M25.551 PAIN IN RIGHT HIP 04/07/2017 LIA HELMS APRN Ot M25.561 PAIN IN RIGHT KNEE 04/07/2017 LIA HELMS APRN Ot R06.02 SHORTNESS OF BREATH 04/07/2017 ASTON BILL MD Ot R49.0 DYSPHONIA 04/07/2017 ASTON BILL MD Ot 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, 04/07/2017 ASTON BILL MD Ot R06.02 SHORTNESS OF BREATH 04/07/2017 ASTON BILL MD Ot R49.0 DYSPHONIA 04/07/2017 ASTON BILL MD Ot 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, 04/07/2017 LIA HELMS APRN Ot R00.2 PALPITATIONS 04/07/2017 LIA HELMS APRN Ot R06.02 SHORTNESS OF BREATH 04/07/2017 VIRA ABRAHAMP Ot R22.0 LOCALIZED SWELLING, MASS AND LUMP, HEAD 04/07/2017 ANGEL PUENTES DO Ot Z01.818 ENCOUNTER FOR OTHER PREPROCEDURAL EXAMIN 04/07/2017 ANGEL PUENTES DO Ot Z12.11 ENCOUNTER FOR SCREENING FOR MALIGNANT NE 04/07/2017 Ot V54.01 ENCNTR FOR REMOVAL OF INTERNAL FIXATION 04/07/2017 Ot V72.84 EXAM PRE- OPERATIVE NOS 04/07/2017 Ot 560.9 INTESTINAL OBSTRUCT NOS 04/07/2017 Ot 562.11 DIVERTICULITIS COLON (W/O MENT OF HEMORR 04/07/2017 Ot V72.63 PRE- PROCEDURAL LABORATORY EXAMINATION 04/07/2017 Ot V74.8 SCREEN- BACTERIAL DIS NEC 04/07/2017 Ot 789.00 ABDOMINAL PAIN, UNSPECIFIED SITE 04/07/2017 Ot 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 04/07/2017 Ot 780.2 SYNCOPE AND COLLAPSE 04/07/2017 Ot V10.03 HX- ESOPHAGEAL MALIGNANCY 04/07/2017 Ot V72.84 EXAM PRE- OPERATIVE NOS 04/07/2017 Ot 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 04/07/2017 Ot 789.00 ABDOMINAL PAIN, UNSPECIFIED SITE 04/07/2017 Ot V12.79 PERSONAL HISTORY OTH SPEC DIGESTIVE SYST 04/07/2017 Ot 530.3 ESOPHAGEAL STRICTURE 04/07/2017 Ot 780.4 DIZZINESS AND GIDDINESS 04/07/2017 Ot 784.0 HEADACHE 04/07/2017 Ot V10.21 HX- LARYNGEAL MALIGNANCY 04/07/2017 Ot V12.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 04/07/2017 Ot V58.69 OTH MED,LT, CURRENT USE 04/07/2017 Ot V67.1 RADIOTHERAPY FOLLOW-UP 04/07/2017 Ot V67.2 CHEMOTHERAPY FOLLOW-UP 04/07/2017 Ot 780.4 DIZZINESS AND GIDDINESS 04/07/2017 Ot 784.0 HEADACHE 04/07/2017 PREM ESTEVEZ RECONSTRUCTIVE DENTIST Ot 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 04/07/2017 VIRA ABRAHAM RECONSTRUCTIVE DENTIST Ot V76.12 OTH SCREEN MAMMO-MALIGN NEOPLASM OF [place] 04/07/2017 Ot V68.01 DISABILITY EXAMINATION 04/07/2017 Ot V82.89 SCREEN FOR OTH SPECIF CONDITIONS 04/07/2017 JASON BENITEZ Ot V10.21 HX-LARYNGEAL MALIGNANCY 04/07/2017 JASON BENITEZ Ot V12.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 04/07/2017 JASON BENITEZ Ot V58.69 OTH MED,LT,CURRENT USE 04/07/2017 JASON BENITEZ Ot V67.1 RADIOTHERAPY FOLLOW-UP 04/07/2017 JASON BENITEZ Ot V67.2 CHEMOTHERAPY FOLLOW-UP 04/07/2017 VIRA ABRAHAM RECONSTRUCTIVE DENTIST Ot 729.1 MYALGIA AND MYOSITIS NOS 04/07/2017 VIRA ABRAHAM RECONSTRUCTIVE DENTIST Ot 784.0 HEADACHE 04/07/2017 VIRA ABRAHAM RECONSTRUCTIVE DENTIST Ot 787.02 NAUSEA ALONE 04/07/2017 VIRA ABRAHAM RECONSTRUCTIVE DENTIST Ot 919.4 INSECT BITE NEC 04/07/2017 VIRA ABRAHAM RECONSTRUCTIVE DENTIST Ot E000.8 OTHER EXTERNAL CAUSE STATUS 04/07/2017 VIRA ABRAHAM RECONSTRUCTIVE DENTIST Ot E906.4 NONVENOM ARTHROPOD BITE 04/07/2017 LANDY LEOS, ASTON P Ot 786.09 RESPIRATORY ABNORM NEC 04/07/2017 LANDY LEOS, ASTON Andersen Ot 787.20 DYSPHAGIA, UNSPECIFIED 04/07/2017 PREM ESTEVEZ RECONSTRUCTIVE DENTIST Ot V10.21 HX-LARYNGEAL MALIGNANCY 04/07/2017 PREM ESTEVEZ RECONSTRUCTIVE DENTIST Ot V12.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 04/07/2017 PREM ESTEVEZ RECONSTRUCTIVE DENTIST Ot V58.69 OTH MED,LT,CURRENT USE 04/07/2017 PREM ESTEVEZ RECONSTRUCTIVE DENTIST Ot V67.1 RADIOTHERAPY FOLLOW-UP 04/07/2017 PREM ESTEVEZ RECONSTRUCTIVE DENTIST Ot V67.2 CHEMOTHERAPY FOLLOW-UP 04/07/2017 PREM ESTEVEZ RECONSTRUCTIVE DENTIST Ot 530.3 ESOPHAGEAL STRICTURE 04/07/2017 PREM ESTEVEZ RECONSTRUCTIVE DENTIST Ot 780.4 DIZZINESS AND GIDDINESS 04/07/2017 PREM ESTEVEZ RECONSTRUCTIVE DENTIST Ot 784.0 HEADACHE 04/07/2017 PREM ESTEVEZ RECONSTRUCTIVE DENTIST Ot V10.21 HX-LARYNGEAL MALIGNANCY 04/07/2017 PREM ESTEVEZ RECONSTRUCTIVE DENTIST Ot V12.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 04/07/2017 PREM ESTEVEZ RECONSTRUCTIVE DENTIST Ot V58.69 OTH MED,LT,CURRENT USE 04/07/2017 PREM ESTEVEZ RECONSTRUCTIVE DENTIST Ot V67.1 RADIOTHERAPY FOLLOW-UP 04/07/2017 PREM ESTEVEZ RECONSTRUCTIVE DENTIST Ot V67.2 CHEMOTHERAPY FOLLOW-UP 04/07/2017 HERB HILKEELY Sandro RECONSTRUCTIVE DENTIST Ot 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 04/07/2017 ESTEVEZPREM RECONSTRUCTIVE DENTIST Ot 780.4 DIZZINESS AND GIDDINESS 04/07/2017 ESTEVEZ PREM Sandro RECONSTRUCTIVE DENTIST Ot 784.0 HEADACHE 04/07/2017 ESTEVEZPREM Jo RECONSTRUCTIVE DENTIST Ot V12.54 PERSONAL HX OF TIA, CEREBRAL INFARCTION 04/07/2017 VIRA ABRAHAM RECONSTRUCTIVE DENTIST Ot 719.41 JOINT PAIN-SHLDER 04/07/2017 VIRA ABRAHAM RECONSTRUCTIVE DENTIST Ot E000.8 OTHER EXTERNAL CAUSE STATUS 04/07/2017 VIRA ABRAHAM RECONSTRUCTIVE DENTIST Ot E849.0 ACCIDENT IN HOME 04/07/2017 VIRA ABRAHAM RECONSTRUCTIVE DENTIST Ot E888.9 FALL NOS 04/07/2017 DEEPAK LEOS, JAJA Rushing Ot V76.12 OTH SCREEN MAMMO-MALIGN NEOPLASM OF [place] 04/07/2017 SHWETA DPM, ERLIN Q Ot 735.0 HALLUX VALGUS 04/07/2017 SHWETA DPM, ERLIN Q Ot V72.84 EXAM PRE-OPERATIVE NOS 04/07/2017 SHWETA DPM, ERLIN Q Ot V74.8 SCREEN-BACTERIAL DIS NEC 04/07/2017 JASON BENITEZ Ot V10.21 HX-LARYNGEAL MALIGNANCY 04/07/2017 JASON BENITEZ Ot V12.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 04/07/2017 JASON BENITEZ Ot V58.69 OTH MED,LT,CURRENT USE 04/07/2017 JASON BENITEZ Ot V67.1 RADIOTHERAPY FOLLOW-UP 04/07/2017 JASON BENITEZ Ot V67.2 CHEMOTHERAPY FOLLOW-UP 04/07/2017 Ot 272.0 PURE HYPERCHOLESTEROLEM 04/07/2017 Ot 300.00 ANXIETY STATE NOS 04/07/2017 Ot 530.3 ESOPHAGEAL STRICTURE 04/07/2017 Ot 530.81 ESOPHAGEAL REFLUX 04/07/2017 Ot V58.69 OTH MED,LT, CURRENT USE 04/07/2017 NATHALIE JACOBSEN MD Ot 272.0 PURE HYPERCHOLESTEROLEM 04/07/2017 NATHALIE JACOBSEN MD Ot 300.00 ANXIETY STATE NOS 04/07/2017 NATHALIE JACOBSEN MD Ot 530.3 ESOPHAGEAL STRICTURE 04/07/2017 NATHALIE JACOBSEN MD Ot 530.81 ESOPHAGEAL REFLUX 04/07/2017 NATHALIE JACOBSEN MD Ot 728.87 MUSCLE WEAKNESS (GENERALIZED) 04/07/2017 NATHALIE JACOBSEN MD Ot 781.94 FACIAL WEAKNESS 04/07/2017 NATHALIE JACOBSEN MD Ot 784.59 OTHER SPEECH DISTURBANCE 04/07/2017 NATHALIE JACOBSEN MD Ot V58.69 OTH MED,LT,CURRENT USE 04/07/2017 VIRA ABRAHAM RECONSTRUCTIVE DENTIST Ot 729.5 PAIN IN LIMB 04/07/2017 PREM ESTVEEZ RECONSTRUCTIVE DENTIST Ot V10.21 HX-LARYNGEAL MALIGNANCY 04/07/2017 PREM ESTEVEZ RECONSTRUCTIVE DENTIST Ot V12.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 04/07/2017 PREM ESTEVEZ RECONSTRUCTIVE DENTIST Ot V58.69 OTH MED,LT,CURRENT USE 04/07/2017 ESTEVEZPREM Jo RECONSTRUCTIVE DENTIST Ot V67.1 RADIOTHERAPY FOLLOW-UP 04/07/2017 PREM ESTEVEZ RECONSTRUCTIVE DENTIST Ot V67.2 CHEMOTHERAPY FOLLOW-UP 04/07/2017 PREM ESTEVEZ RECONSTRUCTIVE DENTIST Ot 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 04/07/2017 ESTEVEZPREM Jo RECONSTRUCTIVE DENTIST Ot 728.87 MUSCLE WEAKNESS (GENERALIZED) 04/07/2017 PREM ESTEVEZ S RECONSTRUCTIVE DENTIST Ot 780.4 DIZZINESS AND GIDDINESS 04/07/2017 BLOSSOM HURD APRN Ot 786.2 COUGH 04/07/2017 NATHALIE JACOBSEN MD Ot 272.0 PURE HYPERCHOLESTEROLEM 04/07/2017 NATHALIE JACOBSEN MD Ot 300.00 ANXIETY STATE NOS 04/07/2017 NATHALIE JACOBSEN MD Ot 530.3 ESOPHAGEAL STRICTURE 04/07/2017 NATHALIE JACOBSEN MD Ot 530.81 ESOPHAGEAL REFLUX 04/07/2017 NATHALIE JACOBSEN MD Ot V58.69 OTH MED,LT,CURRENT USE 04/07/2017 VIRA ABRAHAM RECONSTRUCTIVE DENTIST Ot 719.41 JOINT PAIN-SHLDER 04/07/2017 JAJA SOTELO MD Ot R10.9 UNSPECIFIED ABDOMINAL PAIN 04/07/2017 JAJA SOTELO MD Ot R74.8 ABNORMAL LEVELS OF OTHER SERUM ENZYMES 04/07/2017 LIA HLEMS SOCIAL WORK ADMINISTRATOR Ot M25.551 PAIN IN RIGHT HIP 04/07/2017 LIA HELMS SOCIAL WORK ADMINISTRATOR Ot M25.561 PAIN IN RIGHT KNEE 04/07/2017 LIA HELMS SOCIAL WORK ADMINISTRATOR Ot R06.02 SHORTNESS OF BREATH 04/07/2017 LANDY LEOS, ASTON Andersen Ot R49.0 DYSPHONIA 04/07/2017 LANDY ELOS, ASTON Andersen Ot 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, 04/07/2017 ASTON BILL MD P Ot R06.02 SHORTNESS OF BREATH 04/07/2017 ASTON BILL MD Ot R49.0 DYSPHONIA 04/07/2017 ASTON BILL MD Ot 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, 04/07/2017 LIA HELMS APRN Ot R00.2 PALPITATIONS 04/07/2017 LIA HELMS APRN Ot R06.02 SHORTNESS OF BREATH 04/07/2017 VIRA ABRAHAM Ot R22.0 LOCALIZED SWELLING, MASS AND LUMP, HEAD 04/07/2017 ANGEL PUENTES DO B Ot Z01.818 ENCOUNTER FOR OTHER PREPROCEDURAL EXAMIN 04/07/2017 ANISH PUENTES DOIC B Ot Z12.11 ENCOUNTER FOR SCREENING FOR MALIGNANT NE 08/21/2017 ANGEL PUENTES DO B Ot Z01.818 ENCOUNTER FOR OTHER PREPROCEDURAL EXAMIN 08/22/2017 ANISH PUENTES DOIC B Ot Z01.818 ENCOUNTER FOR OTHER PREPROCEDURAL EXAMIN 08/23/2017 Ot 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 08/23/2017 Ot V72.84 EXAM PRE- OPERATIVE NOS 08/23/2017 Ot 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 08/23/2017 Ot 789.00 ABDOMINAL PAIN, UNSPECIFIED SITE 08/23/2017 Ot V12.79 PERSONAL HISTORY OTH SPEC DIGESTIVE SYST 08/23/2017 Ot 530.3 ESOPHAGEAL STRICTURE 08/23/2017 Ot 780.4 DIZZINESS AND GIDDINESS 08/23/2017 Ot 784.0 HEADACHE 08/23/2017 Ot V10.21 HX- LARYNGEAL MALIGNANCY 08/23/2017 Ot V12.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 08/23/2017 Ot V58.69 OTH MED,LT, CURRENT USE 08/23/2017 Ot V67.1 RADIOTHERAPY FOLLOW-UP 08/23/2017 Ot V67.2 CHEMOTHERAPY FOLLOW-UP 08/23/2017 Ot 780.4 DIZZINESS AND GIDDINESS 08/23/2017 Ot 784.0 HEADACHE 08/23/2017 PREM ESTEVEZ RECONSTRUCTIVE DENTIST Ot 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 08/23/2017 VIRA ABRAHAM RECONSTRUCTIVE DENTIST Ot V76.12 OTH SCREEN MAMMO-MALIGN NEOPLASM OF [place] 08/23/2017 Ot V68.01 DISABILITY EXAMINATION 08/23/2017 Ot V82.89 SCREEN FOR OTH SPECIF CONDITIONS 08/23/2017 JASON BENITEZ Ot V10.21 HX-LARYNGEAL MALIGNANCY 08/23/2017 JASON BENITEZ Ot V12.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 08/23/2017 JASON BENITEZ Ot V58.69 OTH MED,LT,CURRENT USE 08/23/2017 JASON BENITEZ Ot V67.1 RADIOTHERAPY FOLLOW-UP 08/23/2017 JASON BENITEZ Ot V67.2 CHEMOTHERAPY FOLLOW-UP 08/23/2017 VIRA ABRAHAM RECONSTRUCTIVE DENTIST Ot 729.1 MYALGIA AND MYOSITIS NOS 08/23/2017 VIRA ABRAHAM RECONSTRUCTIVE DENTIST Ot 784.0 HEADACHE 08/23/2017 VIRA ABRAHAM RECONSTRUCTIVE DENTIST Ot 787.02 NAUSEA ALONE 08/23/2017 VIRA ABRAHAM RECONSTRUCTIVE DENTIST Ot 919.4 INSECT BITE NEC 08/23/2017 VIRA ABRAHAM RECONSTRUCTIVE DENTIST Ot E000.8 OTHER EXTERNAL CAUSE STATUS 08/23/2017 VIRA ABRAHAM RECONSTRUCTIVE DENTIST Ot E906.4 NONVENOM ARTHROPOD BITE 08/23/2017 ASTON BILL MD Ot 786.09 RESPIRATORY ABNORM NEC 08/23/2017 ASTON BILL MD Ot 787.20 DYSPHAGIA, UNSPECIFIED 08/23/2017 PREM ESTEVEZ RECONSTRUCTIVE DENTIST Ot V10.21 HX-LARYNGEAL MALIGNANCY 08/23/2017 PREM ESTEVEZ RECONSTRUCTIVE DENTIST Ot V12.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 08/23/2017 PREM ESTEVEZ RECONSTRUCTIVE DENTIST Ot V58.69 OTH MED,LT,CURRENT USE 08/23/2017 PREM ESTEVEZ RECONSTRUCTIVE DENTIST Ot V67.1 RADIOTHERAPY FOLLOW-UP 08/23/2017 ESTEVEZPREM Jo RECONSTRUCTIVE DENTIST Ot V67.2 CHEMOTHERAPY FOLLOW-UP 08/23/2017 ESTEVEZ PERM Jo RECONSTRUCTIVE DENTIST Ot 530.3 ESOPHAGEAL STRICTURE 08/23/2017 ESTEVEZ PREM Jo RECONSTRUCTIVE DENTIST Ot 780.4 DIZZINESS AND GIDDINESS 08/23/2017 PREM ESTEVEZ RECONSTRUCTIVE DENTIST Ot 784.0 HEADACHE 08/23/2017 HERB PREM Jo RECONSTRUCTIVE DENTIST Ot V10.21 HX-LARYNGEAL MALIGNANCY 08/23/2017 HERB PREM Jo RECONSTRUCTIVE DENTIST Ot V12.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 08/23/2017 HERB PREM Jo RECONSTRUCTIVE DENTIST Ot V58.69 OTH MED,LT,CURRENT USE 08/23/2017 ESTEVEZPREM Jo RECONSTRUCTIVE DENTIST Ot V67.1 RADIOTHERAPY FOLLOW-UP 08/23/2017 HERB PREM Jo RECONSTRUCTIVE DENTIST Ot V67.2 CHEMOTHERAPY FOLLOW-UP 08/23/2017 HERB PREM Jo RECONSTRUCTIVE DENTIST Ot 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 08/23/2017 HERB PREM Jo RECONSTRUCTIVE DENTIST Ot 780.4 DIZZINESS AND GIDDINESS 08/23/2017 ESTEVEZ PREM Jo RECONSTRUCTIVE DENTIST Ot 784.0 HEADACHE 08/23/2017 ESTEVEZ PREM Jo RECONSTRUCTIVE DENTIST Ot V12.54 PERSONAL HX OF TIA, CEREBRAL INFARCTION 08/23/2017 VIRA ABRAHAM RECONSTRUCTIVE DENTIST Ot 719.41 JOINT PAIN-SHLDER 08/23/2017 VIRA ABRAHAM RECONSTRUCTIVE DENTIST Ot E000.8 OTHER EXTERNAL CAUSE STATUS 08/23/2017 VIRA ABRAHAM RECONSTRUCTIVE DENTIST Ot E849.0 ACCIDENT IN HOME 08/23/2017 VIRA ABRAHAM RECONSTRUCTIVE DENTIST Ot E888.9 FALL NOS 08/23/2017 DEEPAK LEOS, JAJA Rushing Ot V76.12 OTH SCREEN MAMMO-MALIGN NEOPLASM OF [place]BE 08/23/2017 SHWETA DPM, ERLIN Q Ot 735.0 HALLUX VALGUS 08/23/2017 SHWETA DPM, ERLIN Q Ot V72.84 EXAM PRE-OPERATIVE NOS 08/23/2017 SHWETA DPM, ERLIN Q Ot V74.8 SCREEN-BACTERIAL DIS NEC 08/23/2017 JASON BENITEZ Ot V10.21 HX-LARYNGEAL MALIGNANCY 08/23/2017 JASON BENITEZ Ot V12.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 08/23/2017 JASON BENITEZ Ot V58.69 OTH MED,LT,CURRENT USE 08/23/2017 JASON BENITEZ Boom Ot V67.1 RADIOTHERAPY FOLLOW-UP 08/23/2017 JASON BENITEZ Boom Ot V67.2 CHEMOTHERAPY FOLLOW-UP 08/23/2017 Ot 272.0 PURE HYPERCHOLESTEROLEM 08/23/2017 Ot 300.00 ANXIETY STATE NOS 08/23/2017 Ot 530.3 ESOPHAGEAL STRICTURE 08/23/2017 Ot 530.81 ESOPHAGEAL REFLUX 08/23/2017 Ot V58.69 OTH MED,LT, CURRENT USE 08/23/2017 DELMAR LEOS, NATHALIE King Ot 272.0 PURE HYPERCHOLESTEROLEM 08/23/2017 DELMAR LEOS, NATHALIE King Ot 300.00 ANXIETY STATE NOS 08/23/2017 DELMAR LEOS, NATHALIE King Ot 530.3 ESOPHAGEAL STRICTURE 08/23/2017 NATHALIE JACOBSEN MD Ot 530.81 ESOPHAGEAL REFLUX 08/23/2017 NATHALIE JACOBSEN MD Ot 728.87 MUSCLE WEAKNESS (GENERALIZED) 08/23/2017 DELMAR LEOS, NATHALIE King Ot 781.94 FACIAL WEAKNESS 08/23/2017 DELMAR LEOS, NATHALIE King Ot 784.59 OTHER SPEECH DISTURBANCE 08/23/2017 NATHALIE JACOBSEN MD Ot V58.69 OTH MED,LT,CURRENT USE 08/23/2017 VIRA ABRAHAM RECONSTRUCTIVE DENTIST Ot 729.5 PAIN IN LIMB 08/23/2017 PREM ESTEVEZ RECONSTRUCTIVE DENTIST Ot V10.21 HX-LARYNGEAL MALIGNANCY 08/23/2017 PREM ESTEVEZ RECONSTRUCTIVE DENTIST Ot V12.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 08/23/2017 PREM ESTEVEZ RECONSTRUCTIVE DENTIST Ot V58.69 OTH MED,LT,CURRENT USE 08/23/2017 PREM ESTEVEZ RECONSTRUCTIVE DENTIST Ot V67.1 RADIOTHERAPY FOLLOW-UP 08/23/2017 PREM ESTEVEZ RECONSTRUCTIVE DENTIST Ot V67.2 CHEMOTHERAPY FOLLOW-UP 08/23/2017 PREM ESTEVEZ RECONSTRUCTIVE DENTIST Ot 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 08/23/2017 PREM ESTEVEZ RECONSTRUCTIVE DENTIST Ot 728.87 MUSCLE WEAKNESS (GENERALIZED) 08/23/2017 PREM ESTEVEZ RECONSTRUCTIVE DENTIST Ot 780.4 DIZZINESS AND GIDDINESS 08/23/2017 BLOSSOM HURD APRN Ot 786.2 COUGH 08/23/2017 NATHALIE JACOBSEN MD Ot 272.0 PURE HYPERCHOLESTEROLEM 08/23/2017 NATHALIE JACOBSEN MD Ot 300.00 ANXIETY STATE NOS 08/23/2017 NATHALIE JACOBSEN MD Ot 530.3 ESOPHAGEAL STRICTURE 08/23/2017 NATHALIE JACOBSEN MD Ot 530.81 ESOPHAGEAL REFLUX 08/23/2017 NATHALIE JACOBSEN MD Ot V58.69 OTH MED,LT,CURRENT USE 08/23/2017 VIRA ABRAHAM Ot 719.41 JOINT PAIN-SHLDER 08/23/2017 JAJA SOTELO MD Ot R10.9 UNSPECIFIED ABDOMINAL PAIN 08/23/2017 JAJA SOTELO MD Ot R74.8 ABNORMAL LEVELS OF OTHER SERUM ENZYMES 08/23/2017 LIA HELMS SOCIAL WORK ADMINISTRATOR Ot M25.551 PAIN IN RIGHT HIP 08/23/2017 LIA HELMS APRN Ot M25.561 PAIN IN RIGHT KNEE 08/23/2017 LIA HELMS SOCIAL WORK ADMINISTRATOR Ot R06.02 SHORTNESS OF BREATH 08/23/2017 ASTON BILL MD Ot R49.0 DYSPHONIA 08/23/2017 LANDY LEOS, ASTON Andersen Ot 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, 08/23/2017 ASTON BILL MD Ot R06.02 SHORTNESS OF BREATH 08/23/2017 ASTON BILL MD Ot R49.0 DYSPHONIA 08/23/2017 ASTON BILL MD Ot 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, 08/23/2017 LIA HELMS SOCIAL WORK ADMINISTRATOR Ot R00.2 PALPITATIONS 08/23/2017 LIA HELMS SOCIAL WORK ADMINISTRATOR Ot R06.02 SHORTNESS OF BREATH 08/23/2017 VIRA ABRAHAM Ot R22.0 LOCALIZED SWELLING, MASS AND LUMP, HEAD 08/23/2017 ANGEL PUENTES DO Ot Z01.818 ENCOUNTER FOR OTHER PREPROCEDURAL EXAMIN 08/23/2017 ANGEL PUENTES DO Ot Z12.11 ENCOUNTER FOR SCREENING FOR MALIGNANT NE 08/23/2017 ANGEL PUENTES DO Ot D12.0 BENIGN NEOPLASM OF CECUM 08/23/2017 DHAVAL PETERS, ANGEL B Ot D12.2 BENIGN NEOPLASM OF ASCENDING COLON 08/23/2017 DHAVAL PETERS, ANGEL B Ot 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 08/23/2017 DHAVAL DO, ANGEL B Ot I10 ESSENTIAL (PRIMARY) HYPERTENSION 08/23/2017 DHAVAL PETERS, ANGEL B Ot K57.30 DVRTCLOS OF LG INT W/O PERFORATION OR AB 08/23/2017 DHAVAL PETERS ANGEL B Ot K63.5 POLYP OF COLON 08/23/2017 DHAVAL PETERS, ANGEL B Ot K64.8 OTHER HEMORRHOIDS 08/23/2017 DHAVAL PETERS ANGEL B Ot Z09 ENCNTR FOR F/U EXAM AFT TRTMT FOR COND O 08/23/2017 DHAVAL PETERS ANGEL B Ot Z79.899 OTHER LONGTERM (CURRENT) DRUG THERAPY 08/23/2017 DHAVAL PETERS, ANGEL B Ot Z86.010 PERSONAL HISTORY OF COLONIC POLYPS 08/31/2017 DHAVAL PETERS ANGEL B Ot D12.0 BENIGN NEOPLASM OF CECUM 08/31/2017 DHAVAL PETERS, ANGEL B Ot D12.2 BENIGN NEOPLASM OF ASCENDING COLON 08/31/2017 DHAVAL PETERS, ANGEL B Ot 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 08/31/2017 DHAVAL PETERS, ANGEL B Ot I10 ESSENTIAL (PRIMARY) HYPERTENSION 08/31/2017 DHAVAL PETERS, ANGEL B Ot K57.30 DVRTCLOS OF LG INT W/O PERFORATION OR AB 08/31/2017 DHAVAL PETERS ANGEL B Ot K63.5 POLYP OF COLON 08/31/2017 DHAVAL PETERS ANGEL B Ot K64.8 OTHER HEMORRHOIDS 08/31/2017 DHAVAL PETERS ANGEL B Ot Z09 ENCNTR FOR F/U EXAM AFT TRTMT FOR COND O 08/31/2017 DHAVAL PETERS ANGEL B Ot 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 08/31/2017 DHAVAL PETERS, ANGEL B Ot Z86.010 PERSONAL HISTORY OF COLONIC POLYPS 09/28/2017 Ot 789.00 ABDOMINAL PAIN, UNSPECIFIED SITE 09/28/2017 Ot V12.79 PERSONAL HISTORY OTH SPEC DIGESTIVE SYST 09/28/2017 Ot 530.3 ESOPHAGEAL STRICTURE 09/28/2017 Ot 780.4 DIZZINESS AND GIDDINESS 09/28/2017 Ot 784.0 HEADACHE 09/28/2017 Ot V10.21 HX- LARYNGEAL MALIGNANCY 09/28/2017 Ot V12.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 09/28/2017 Ot V58.69 OTH MED,LT, CURRENT USE 09/28/2017 Ot V67.1 RADIOTHERAPY FOLLOW-UP 09/28/2017 Ot V67.2 CHEMOTHERAPY FOLLOW-UP 09/28/2017 Ot 780.4 DIZZINESS AND GIDDINESS 09/28/2017 Ot 784.0 HEADACHE 09/28/2017 PREM ESTEVEZ RECONSTRUCTIVE DENTIST Ot 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 09/28/2017 VIRA ABRAHAM RECONSTRUCTIVE DENTIST Ot V76.12 OTH SCREEN MAMMO-MALIGN NEOPLASM OF BERNABE 09/28/2017 Ot V68.01 DISABILITY EXAMINATION 09/28/2017 Ot V82.89 SCREEN FOR OTH SPECIF CONDITIONS 09/28/2017 JASON BENITEZ Ot V10.21 HX-LARYNGEAL MALIGNANCY 09/28/2017 JASON BENITEZ Ot V12.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 09/28/2017 JASON BENITEZ Ot V58.69 OTH MED,LT,CURRENT USE 09/28/2017 JASON BENITEZ Ot V67.1 RADIOTHERAPY FOLLOW-UP 09/28/2017 JASON BENITEZ Ot V67.2 CHEMOTHERAPY FOLLOW-UP 09/28/2017 VIRA ABRAHAM RECONSTRUCTIVE DENTIST Ot 729.1 MYALGIA AND MYOSITIS NOS 09/28/2017 VIRA ABRAHAM RECONSTRUCTIVE DENTIST Ot 784.0 HEADACHE 09/28/2017 VIRA ABRAHAM RECONSTRUCTIVE DENTIST Ot 787.02 NAUSEA ALONE 09/28/2017 VIRA ABRAHAM RECONSTRUCTIVE DENTIST Ot 919.4 INSECT BITE NEC 09/28/2017 VIRA ABRAHAM RECONSTRUCTIVE DENTIST Ot E000.8 OTHER EXTERNAL CAUSE STATUS 09/28/2017 VIRA ABRAHAM RECONSTRUCTIVE DENTIST Ot E906.4 NONVENOM ARTHROPOD BITE 09/28/2017 LANDY LEOS, ASTON Andersen Ot 786.09 RESPIRATORY ABNORM NEC 09/28/2017 ASTON BILL MD Ot 787.20 DYSPHAGIA, UNSPECIFIED 09/28/2017 PREM ESTEVEZ RECONSTRUCTIVE DENTIST Ot V10.21 HX-LARYNGEAL MALIGNANCY 09/28/2017 PREM ESTEVEZ RECONSTRUCTIVE DENTIST Ot V12.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 09/28/2017 PREM ESTEVEZ RECONSTRUCTIVE DENTIST Ot V58.69 OTH MED,LT,CURRENT USE 09/28/2017 PREM ESTEVEZ S RECONSTRUCTIVE DENTIST Ot V67.1 RADIOTHERAPY FOLLOW-UP 09/28/2017 ESTEVEZPREM Jo S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 determination (moles/volume) 15 mmol/L 5-14 Serum or plasma urea nitrogen measurement (mass/volume) 11 mg/dL 7-18 Serum or plasma creatinine measurement (mass/volume) 0.83 mg/dL 0.60-1.30 Serum or plasma urea nitrogen/creatinine mass ratio 13 NRG Serum or plasma creatinine measurement with calculation of estimated glomerular filtration rate > NRG Serum or plasma glucose measurement (mass/volume) 111 mg/dL 70-105 Serum or plasma calcium measurement (mass/volume) 10.0 mg/dL 8.5-10.1 Serum or plasma total bilirubin measurement (mass/volume) 0.6 mg/dL 0.1-1.0 Serum or plasma alkaline phosphatase measurement (enzymatic activity/volume) 69 U/L 40-136 Serum or plasma aspartate aminotransferase measurement (enzymatic activity/ volume) 30 U/L 5-34 Serum or plasma alanine aminotransferase measurement (enzymatic activity/volume ) 34 U/L 0-55 Serum or plasma protein measurement (mass/volume) 6.5 g/dL 6.4-8.2 Serum or plasma albumin measurement (mass/volume) 4.0 g/dL 3.2-4.5 Complete urinalysis with reflex to culture - 12/01/16 01:00 Urine color determination YELLOW NRG Urine clarity determination CLEAR NRG Urine pH measurement by test strip 7 5-9 Specific gravity of urine by test strip 1.010 1.016- 1.022 Urine protein assay by test strip, semi-quantitative NEGATIVE NEGATIVE Urine glucose detection by automated test strip NEGATIVE NEGATIVE Erythrocytes detection in urine sediment by light microscopy 3+ NEGATIVE Urine ketones detection by automated test strip 1+ NEGATIVE Urine nitrite detection by test strip NEGATIVE NEGATIVE Urine total bilirubin detection by test strip NEGATIVE NEGATIVE Urine urobilinogen measurement by automated test strip (mass/volume) NORMAL NORMAL Urine leukocyte esterase detection by dipstick 1+ NEGATIVE Automated urine sediment erythrocyte count by microscopy (number/high power field) RARE NRG Automated urine sediment leukocyte count by microscopy (number/high power field ) [HPF] NRG Bacteria detection in urine sediment by light microscopy TRACE NRG Squamous epithelial cells detection in urine sediment by light microscopy 2-5 NRG Crystals detection in urine sediment by light microscopy PRESENT NRG Casts detection in urine sediment by light microscopy PRESENT NRG Mucus detection in urine sediment by light microscopy SMALL NRG Complete urinalysis with reflex to culture NO NRG Hyaline casts detection in urine sediment by light microscopy 5-10 NRG Calcium oxalate crystals detection in urine sediment by light microscopy FEW NRG Complete blood count (CBC) with automated white blood cell (WBC) differential - 12/05/16 08:35 Blood leukocytes automated count (number/volume) 6.1 10*3/uL 4.3-11.0 Blood erythrocytes automated count (number/volume) 5.10 10*6/uL 4.35-5.85 Venous blood hemoglobin measurement (mass/volume) 14.1 g/dL 11.5-16.0 Blood hematocrit (volume fraction) 41 % 35-52 Automated erythrocyte mean corpuscular volume 81 [foz_us] 80-99 Automated erythrocyte mean corpuscular hemoglobin (mass per erythrocyte) 28 pg 25-34 Automated erythrocyte mean corpuscular hemoglobin concentration measurement ( mass/volume) 34 g/dL 32-36 Automated erythrocyte distribution width ratio 14.1 % 10.0-14.5 Automated blood platelet count (count/volume) 223 10*3/uL 130-400 Automated blood platelet mean volume measurement 9.2 [foz_us] 7.4-10.4 Automated blood neutrophils/100 leukocytes 76 % 42-75 Automated blood lymphocytes/100 leukocytes 11 % 12-44 Blood monocytes/100 leukocytes 11 % 0-12 Automated blood eosinophils/100 leukocytes 1 % 0-10 Automated blood basophils/100 leukocytes 0 % 0-10 Blood neutrophils automated count (number/volume) 4.7 10*3 1.8-7.8 Blood lymphocytes automated count (number/volume) 0.7 10*3 1.0-4.0 Blood monocytes automated count (number/volume) 0.7 10*3 0.0-1.0 Automated eosinophil count 0.1 10*3/uL 0.0-0.3 Automated blood basophil count (count/volume) 0.0 10*3/uL 0.0-0.1 Comprehensive metabolic panel - 12/05/16 08:35 Serum or plasma sodium measurement (moles/volume) 141 mmol/L 135-145 Serum or plasma potassium measurement (moles/volume) 3.0 mmol/L 3.6-5.0 Serum or plasma chloride measurement (moles/volume) 104 mmol/L 98-107 Carbon dioxide 22 mmol/L 21-32 Serum or plasma anion gap determination (moles/volume) 15 mmol/L 5-14 Serum or plasma urea nitrogen measurement (mass/volume) 13 mg/dL 7-18 Serum or plasma creatinine measurement (mass/volume) 1.13 mg/dL 0.60-1.30 Serum or plasma urea nitrogen/creatinine mass ratio 12 NRG Serum or plasma creatinine measurement with calculation of estimated glomerular filtration rate 50 NRG Serum or plasma glucose measurement (mass/volume) 114 mg/dL 70-105 Serum or plasma calcium measurement (mass/volume) 9.4 mg/dL 8.5-10.1 Serum or plasma total bilirubin measurement (mass/volume) 0.6 mg/dL 0.1-1.0 Serum or plasma alkaline phosphatase measurement (enzymatic activity/volume) 67 U/L 40-136 Serum or plasma aspartate aminotransferase measurement (enzymatic activity/ volume) 25 U/L 5-34 Serum or plasma alanine aminotransferase measurement (enzymatic activity/volume ) 27 U/L 0-55 Serum or plasma protein measurement (mass/volume) 6.3 g/dL 6.4-8.2 Serum or plasma albumin measurement (mass/volume) 3.9 g/dL 3.2-4.5 Methicillin resistant Staphylococcus aureus (MRSA) screening culture - 13:15 Methicillin resistant Staphylococcus aureus (MRSA) screening culture NEG NRG Capillary blood glucose measurement by glucometer (mass/volume) - 12/07/16 07: 41 Capillary blood glucose measurement by glucometer (mass/volume) 83 mg/dL 70-110 A1C - 05/11/17 11:45 HEMOGLOBIN A1c 5.2 % of total Hgb <5.7 Complete blood count (CBC) with automated white blood cell (WBC) differential - 09/28/17 09:39 Blood leukocytes automated count (number/volume) 4.6 10*3/uL 4.3-11.0 Blood erythrocytes automated count (number/volume) 4.86 10*6/uL 4.35-5.85 Venous blood hemoglobin measurement (mass/volume) 14.2 g/dL 11.5-16.0 Blood hematocrit (volume fraction) 42 % 35-52 Automated erythrocyte mean corpuscular volume 86 [foz_us] 80-99 Automated erythrocyte mean corpuscular hemoglobin (mass per erythrocyte) 29 pg 25-34 Automated erythrocyte mean corpuscular hemoglobin concentration measurement ( mass/volume) 34 g/dL 32-36 Automated erythrocyte distribution width ratio 14.9 % 10.0-14.5 Automated blood platelet count (count/volume) 238 10*3/uL 130-400 Automated blood platelet mean volume measurement 9.4 [foz_us] 7.4-10.4 Automated blood neutrophils/100 leukocytes 69 % 42-75 Automated blood lymphocytes/100 leukocytes 21 % 12-44 Blood monocytes/100 leukocytes 9 % 0-12 Automated blood eosinophils/100 leukocytes 1 % 0-10 Automated blood basophils/100 leukocytes 0 % 0-10 Blood neutrophils automated count (number/volume) 3.2 10*3 1.8-7.8 Blood lymphocytes automated count (number/volume) 1.0 10*3 1.0-4.0 Blood monocytes automated count (number/volume) 0.4 10*3 0.0-1.0 Automated eosinophil count 0.0 10*3/uL 0.0-0.3 Automated blood basophil count (count/volume) 0.0 10*3/uL 0.0-0.1 Comprehensive metabolic panel - 09/28/17 09:39 Serum or plasma sodium measurement (moles/volume) 141 mmol/L 135-145 Serum or plasma potassium measurement (moles/volume) 4.6 mmol/L 3.6-5.0 Serum or plasma chloride measurement (moles/volume) 105 mmol/L 98-107 Carbon dioxide 29 mmol/L 21-32 Serum or plasma anion gap determination (moles/volume) 7 mmol/L 5-14 Serum or plasma urea nitrogen measurement (mass/volume) 14 mg/dL 7-18 Serum or plasma creatinine measurement (mass/volume) 1.05 mg/dL 0.60-1.30 Serum or plasma urea nitrogen/creatinine mass ratio 13 NRG Serum or plasma creatinine measurement with calculation of estimated glomerular filtration rate 54 NRG Serum or plasma glucose measurement (mass/volume) 84 mg/dL 70-105 Serum or plasma calcium measurement (mass/volume) 9.8 mg/dL 8.5-10.1 Serum or plasma total bilirubin measurement (mass/volume) 0.7 mg/dL 0.1-1.0 Serum or plasma alkaline phosphatase measurement (enzymatic activity/volume) 67 U/L 40-136 Serum or plasma aspartate aminotransferase measurement (enzymatic activity/ volume) 21 U/L 5-34 Serum or plasma alanine aminotransferase measurement (enzymatic activity/volume ) 14 U/L 0-55 Serum or plasma protein measurement (mass/volume) 7.0 g/dL 6.4-8.2 Serum or plasma albumin measurement (mass/volume) 4.4 g/dL 3.2-4.5 THYROID STIMULATING HORMONE - 09/28/17 09:39 THYROID STIMULATING HORMONE 2.10 u[iU]/mL 0.35-4.94 Complete blood count (CBC) with automated white blood cell (WBC) differential - 11/25/17 12:26 Blood leukocytes automated count (number/volume) 4.8 10*3/uL 4.3-11.0 Blood erythrocytes automated count (number/volume) 4.77 10*6/uL 4.35-5.85 Venous blood hemoglobin measurement (mass/volume) 13.9 g/dL 11.5-16.0 Blood hematocrit (volume fraction) 40 % 35-52 Automated erythrocyte mean corpuscular volume 84 [foz_us] 80-99 Automated erythrocyte mean corpuscular hemoglobin (mass per erythrocyte) 29 pg 25-34 Automated erythrocyte mean corpuscular hemoglobin concentration measurement ( mass/volume) 35 g/dL 32-36 Automated erythrocyte distribution width ratio 14.6 % 10.0-14.5 Automated blood platelet count (count/volume) 220 10*3/uL 130-400 Automated blood platelet mean volume measurement 9.1 [foz_us] 7.4-10.4 Automated blood neutrophils/100 leukocytes 63 % 42-75 Automated blood lymphocytes/100 leukocytes 26 % 12-44 Blood monocytes/100 leukocytes 12 % 0-12 Automated blood eosinophils/100 leukocytes 0 % 0-10 Automated blood basophils/100 leukocytes 0 % 0-10 Blood neutrophils automated count (number/volume) 3.0 10*3 1.8-7.8 Blood lymphocytes automated count (number/volume) 1.2 10*3 1.0-4.0 Blood monocytes automated count (number/volume) 0.6 10*3 0.0-1.0 Automated eosinophil count 0.0 10*3/uL 0.0-0.3 Automated blood basophil count (count/volume) 0.0 10*3/uL 0.0-0.1 PT panel in platelet poor plasma by coagulation assay - 11/25/17 12:26 Prothrombin time (PT) in platelet poor plasma by coagulation assay 13.0 s 12.2-14.7 INR in platelet poor plasma or blood by coagulation assay 1.0 0.8-1.4 Activated partial thromboplastin time (aPTT) in platelet poor plasma bycoagulation assay - 11/25/17 12:26 Activated partial thromboplastin time (aPTT) in platelet poor plasma bycoagulation assay 29 s 24-35 Encounters ACCT No. Visit Date/Time Discharge Status Pt. Type Provider Facility Loc./Unit Complaint [id number] 10/06/2017 09:30:00 10/06/2017 23:59:59 CLS Outpatient ASTON BILL MD [facility] RAD RECURRENT SEIZURE SYMPTOMS, RIGHT NECK MASS [id number] 10/04/2017 14:15:00 10/04/2017 23:59:59 CLS Outpatient JASON BENITEZ [facility] RAD HISTORY OF CA OF HEAD OR NECK,MANDIBULAR MASS [id number] 09/29/2017 10:59:00 09/29/2017 23:59:59 CLS Outpatient JASON BENITEZ [facility] CARD ENCOUNTER FOR IMAGING STUDY TO RESTAGE NEOPLASM [id number] 09/29/2017 12:26:00 09/29/2017 13:45:00 DIS Emergency MARTHA LEE APRN [facility] ER ALLERGIC REACTION TO CONTRAST [id number] 09/28/2017 09:24:00 09/28/2017 23:59:59 CLS Outpatient JASON BENITEZ [facility] ONC [id number] 08/23/2017 07:20:00 08/23/2017 10:30:00 DIS Outpatient ANGEL PUENTES DO [facility] ENDO HX COLON POLYPS [id number] 08/21/2017 13:42:00 08/21/2017 13:52:00 DIS Outpatient ANGEL PUENTES DO [facility] PREOP COLONOSCOPY [id number] 12/07/2016 07:18:00 12/07/2016 13:55:00 DIS Outpatient JOELLEN LEOS, ILIANA Rushing [facility] SDC LEFT URETERAL STONE [id number] 12/06/2016 12:25:00 12/06/2016 14:04:00 DIS Outpatient JOELLEN LEOS, ILIANA Rushing [facility] PREOP LEFT URETERAL STONE [id number] 12/05/2016 08:04:00 12/05/2016 09:32:00 DIS Emergency FRED LEOS, ROSELYN King [facility] ER KIDNEY STONE PAIN, N/V, DIZZY [id number] 11/30/2016 22:19:00 12/01/2016 06:13:00 DIS Emergency CECY LEOS, ANDRA Martinez [facility] ER LOWER BACK PAIN [id number] 11/04/2016 16:45:00 11/04/2016 20:49:00 DIS Emergency FRED LEOS, ROSELYN King [facility] ER VOMITING/STOMACH PAIN [id number] 08/15/2016 11:39:00 08/15/2016 15:05:00 DIS Outpatient ANGEL PUENTES DO [facility] ENDO SCREENING [id number] 08/11/2016 06:16:00 08/11/2016 23:59:59 CLS Outpatient ANGEL PUENTES DO [facility] PREOP SCREENING COLONOSCOPY [id number] 06/18/2016 15:15:00 06/18/2016 16:10:00 DIS Emergency MARTHA LEE APRN [facility] ER HEADACHE [id number] 04/19/2016 08:58:00 04/19/2016 23:59:59 CLS Outpatient VIRA ABRAHAM [facility] RAD L FACIAL SWELLING [id number] 09/25/2015 10:00:00 09/25/2015 10:00:00 CAN Preadmit LIA HELMS APRN [facility] CARD PALPITATIONS,SOB [id number] 06/26/2015 09:00:00 09/24/2015 00:01:00 DIS Outpatient LIA HELMS APRN [facility] CARD PALPITATIONS,SOB [id number] 08/12/2015 12:25:00 08/12/2015 23:59:59 CLS Outpatient ASTON BILL MD [facility] RT DYSPHONIA,HX OF HEAD AND NECK CA [id number] 08/07/2015 08:31:00 08/07/2015 23:59:59 CLS Outpatient ASTON BILL MD [facility] RAD DYSPHONIA, HX HEAD AND NECK CA, SOB [id number] 08/07/2015 11:08:00 08/07/2015 12:36:00 DIS Emergency DAVID STEINER MD [facility] ER POSS MED REACTION [id number] 06/23/2015 08:49:00 06/23/2015 10:05:00 DIS Emergency BROCK WORKMAN MD [facility] ER RIGHT HAND INJURY [id number] 06/19/2015 16:27:00 06/19/2015 23:59:59 CLS Outpatient LIA HELMS APRN [facility] LAB SHORTNESS OF BREATH [id number] 05/14/2015 10:11:00 05/14/2015 23:59:59 CLS Outpatient LIA HELMS APRN [facility] RAD RIGHT KNEE PAIN,HIP PAIN [id number] 05/02/2015 20:40:00 05/03/2015 11:10:00 DIS Inpatient MUSTAPHA WHITE DO S [facility] ICU INTENTIONAL DRUG OVERDOSE; SUICIDAL GESTURES; ANXI [id number] 04/23/2015 16:44:00 04/23/2015 19:22:00 DIS Emergency MARTHA LEE APRN [facility] ER NAUSEA;DIARRHEA;R KNEE AND HIP PAIN [id number] 03/27/2015 11:36:00 03/27/2015 23:59:59 CLS Emergency DAVID STEINER MD [facility] ER CHEST PAIN [id number] 01/24/2015 14:11:00 01/24/2015 20:48:00 DIS Emergency CAROLANN HARTMAN [facility] ER AMS [id number] 01/08/2015 10:16:00 01/08/2015 23:59:59 CLS Preadmit JASON BENITEZ [facility] ONC [id number] 12/27/2014 19:53:00 12/27/2014 22:10:00 DIS Emergency LEEMARTHA SOCIAL WORK ADMINISTRATOR [facility] ER ABDOMINAL PAIN [id number] 12/12/2014 09:18:00 12/12/2014 23:59:59 CLS Outpatient JAJA SOTELO MD [facility] LAB ABNORMAL LEVELS OF OTHER SERUM ENZYMES [id number] 12/05/2014 11:44:00 12/09/2014 10:35:00 DIS Inpatient JAJA SOTELO MD [facility] SURGICAL ABDOMINAL PAIN, ELEVATED ENZYMES [id number] 08/21/2014 16:50:00 08/21/2014 23:59:59 CLS Outpatient VIRA ABRAHAM [facility] RAD UNABLE TO RAISE ARM /SHOULDER PAIN [id number] 08/06/2014 09:00:00 08/06/2014 23:59:59 CLS Preadmit NATHALIE JACOBSEN MD [facility] CARD ANXIETY [id number] 05/07/2014 08:37:00 08/05/2014 00:01:00 DIS Outpatient NATHALIE JACOBSEN MD [facility] CARD ANXIETY [id number] 07/25/2014 09:47:00 07/25/2014 23:59:59 CLS Outpatient BLOSSOM HURD APRN [facility] RAD COUGH [id number] 07/10/2014 09:17:00 07/10/2014 23:59:59 CLS Outpatient PREM ESTEVEZ RECONSTRUCTIVE DENTIST [facility] RAD HEAD/NECK CA, DIZZINESS, RT SIDED WEAKNESS [id number] 07/07/2014 14:18:00 07/07/2014 23:59:59 CLS Outpatient PREM ESTEVEZ RECONSTRUCTIVE DENTIST [facility] ONC [id number] 06/03/2014 15:43:00 06/03/2014 23:59:59 CLS Outpatient VIRA ABRAHAMP [facility] RAD L LEG PAIN [id number] 05/28/2014 11:15:00 05/28/2014 23:59:59 CLS Outpatient DELMAR LEOS, NATHALIE King [facility] CARD GERD,HIGH CHOLESEROL, [id number] 02/23/2014 21:10:00 02/23/2014 22:53:00 DIS Emergency ANDRA SAM MD [facility] ER CP [id number] 12/25/2013 10:18:00 12/25/2013 23:59:59 CLS Outpatient JASON BENITEZ [facility] ONC [id number] 12/16/2013 06:00:00 12/16/2013 10:35:00 DIS Outpatient SHWETA DPM, ERLIN Q [facility] SDC HALLX RIGHT [id number] 12/09/2013 08:39:00 12/09/2013 23:59:59 CLS Outpatient SHWETA DPM, ERLIN Q [facility] PREOP HALLX RIGHT [id number] 12/05/2013 01:55:00 12/05/2013 05:05:00 DIS Emergency MAXIMILIAN PALMA DO [facility] ER ABD PAIN,LEG PAIN [id number] 11/13/2013 08:31:00 11/13/2013 23:59:59 CLS Outpatient JAJA SOTELO MD [facility] RAD SCREENING [id number] 09/01/2013 22:28:00 09/02/2013 01:22:00 DIS Emergency ANDRA SAM MD [facility] ER ALLERGIC REACTION [id number] 08/31/2013 10:45:00 08/31/2013 13:35:00 DIS Emergency MARTHA LEE APRN [facility] ER POSSIBLE BOWEL OBSTRUCTION [id number] 07/25/2013 15:10:00 07/25/2013 23:59:59 CLS Outpatient VIRA ABRAHAM [facility] RAD FALL/LT SHOULD SHOULDER PAIN [id number] 07/03/2013 12:49:00 07/03/2013 23:59:59 CLS Outpatient PREM ESTEVEZP [facility] RAD HEADACHE,DIZZINESS, HEAD,NECK CA [id number] 07/01/2013 14:26:00 07/01/2013 23:59:59 CLS Outpatient PREM ESTEVEZ RECONSTRUCTIVE DENTIST [facility] ONC [id number] 06/16/2013 03:28:00 06/16/2013 06:18:00 DIS Emergency JACINTA LEOS, BROCK Fallon 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 SLEEP EXCESSIVE DAYTIME SLEEPINESS [id number] 12/24/2012 12:25:00 12/24/2012 23:59:59 CLS Outpatient PREM ESTEVEZ RECONSTRUCTIVE DENTIST [facility] ONC [id number] 12/19/2012 08:01:00 12/19/2012 23:59:59 CLS Outpatient LANDY LEOS, ASTON Andersen [facility] RAD DYSPHAGIA, PROBLEMS BREATHING AT NIGHT [id number] 10/23/2012 15:11:00 10/23/2012 23:59:59 CLS Outpatient VIRA ABRAHAM RECONSTRUCTIVE DENTIST [facility] SDC HEADACHES,NAUSEA, BODY ACHES [id number] 09/21/2012 11:45:00 09/21/2012 23:59:59 CLS Outpatient FELIX VALENCIA RECONSTRUCTIVE DENTIST [facility] QUICK MIGRAINE [id number] 09/17/2012 10:10:00 09/17/2012 23:59:59 CLS Outpatient JASON BENITEZ [facility] ONC [id number] 09/11/2012 09:35:00 09/11/2012 23:59:59 CLS Outpatient PREM ESTEVEZ RECONSTRUCTIVE DENTIST [facility] RAD HEAD AND NECK CA [id number] 07/04/2012 08:39:00 07/04/2012 23:59:59 CLS Outpatient VIRA ABRAHAM RECONSTRUCTIVE DENTIST [facility] RAD SCREENING [id number] 07/02/2012 08:10:00 07/03/2012 11:25:00 DIS Inpatient DEEPAK LEOS, JAJA Rushing [facility] 4TH ABD PAIN/ILEUS [id number] 11/25/2017 12:20:00 ACT Emergency MARTHA LEE APRN [facility] ER ARM NUMBNESS, PALPITATIONS [id number] 04/07/2017 05:30:00 Document Registration [id number] 04/07/2017 05:30:00 Document Registration [id number] 04/07/2017 05:30:00 Document Registration [id number] 04/07/2017 05:30:00 Document Registration [id number] 04/07/2017 05:30:00 Document Registration [id number] 04/07/2017 05:30:00 Document Registration [id number] 04/07/2017 05:30:00 Document Registration [id number] 04/07/2017 05:29:00 Document Registration [id number] 10/08/2014 13:52:00 Document Registration [id number] 05/14/2014 07:49:00 Document Registration [id number] 03/30/2014 16:11:00 Document Registration [id number] 03/30/2014 16:10:00 Document Registration [id number] 03/30/2014 16:10:00 Document Registration [id number] 03/30/2014 16:10:00 Document Registration [id number] 03/30/2014 16:10:00 Document Registration [id number] 03/30/2014 16:10:00 Document Registration [id number] 06/21/2012 09:56:00 Document Registration [id number] 06/21/2012 08:44:00 Document Registration [id number] 06/19/2012 09:36:00 Document Registration [id number] 04/25/2012 13:35:00 Document Registration [id number] 04/05/2012 10:09:00 Document Registration [id number] 04/04/2012 06:43:00 Document Registration [id number] 03/30/2012 11:39:00 Document Registration [id number] 03/29/2012 09:00:00 Document Registration [id number] 03/20/2012 08:43:00 Document Registration [id number] 02/15/2012 07:38:00 Document Registration [id number] 01/03/2012 06:18:00 Document Registration [id number] 12/28/2011 15:17:00 Document Registration [id number] 12/28/2011 13:01:00 Document Registration [id number] 12/28/2011 12:52:00 Document Registration [id number] 10/31/2011 05:46:00 Document Registration [id number] 10/25/2011 10:45:00 Document Registration [id number] 10/18/2011 14:47:00 Document Registration [id number] 10/18/2011 13:16:00 Document Registration [id number] 10/08/2011 12:53:00 Document Registration [id number] 09/21/2011 09:33:00 Document Registration [id number] 09/15/2011 08:21:00 Document Registration [id number] 09/01/2011 07:40:00 Document Registration [id number] 07/14/2011 16:26:00 Document Registration [id number] 07/04/2011 10:11:00 Document Registration [id number] 06/15/2011 09:39:00 Document Registration [id number] 06/07/2011 08:31:00 Document Registration [id number] 03/17/2011 08:45:00 Document Registration [id number] 01/16/2011 22:10:00 Document Registration [id number] 12/09/2010 09:30:00 Document Registration [id number] 11/01/2010 09:59:00 Document Registration [id number] 08/06/2010 09:28:00 Document Registration [id number] 07/26/2010 11:50:00 Document Registration [id number] 07/24/2010 23:45:00 Document Registration [id number] 07/12/2010 15:36:00 Document Registration [id number] 06/26/2010 21:26:00 Document Registration [id number] 06/21/2010 09:32:00 Document Registration [id number] 06/16/2010 10:05:00 Document Registration [id number] 06/09/2010 09:26:00 Document Registration [id number] 06/08/2010 09:18:00 Document Registration [id number] 03/10/2010 10:36:00 Document Registration [id number] 03/10/2010 08:47:00 Document Registration [id number] 03/02/2010 12:01:00 Document Registration [id number] 01/19/2010 07:55:00 Document Registration [id number] 01/11/2010 10:50:00 Document Registration [id number] 12/31/2009 12:25:00 Document Registration [id number] 12/29/2009 13:27:00 Document Registration [id number] 12/23/2009 13:36:00 Document Registration [id number] 12/22/2009 05:43:00 Document Registration [id number] 12/15/2009 07:25:00 Document Registration [id number] 11/23/2009 08:59:00 Document Registration [id number] 11/23/2009 08:28:00 Document Registration [id number] 11/17/2009 11:23:00 Document Registration [id number] 11/10/2009 16:30:00 Document Registration [id number] 10/04/2009 17:15:00 Document Registration [id number] 09/26/2009 21:24:00 Document Registration [id number] 09/21/2009 08:15:00 Document Registration [id number] 09/11/2009 06:55:00 Document Registration [id number] 09/10/2009 14:51:00 Document Registration [id number] 08/27/2009 09:53:00 Document Registration [id number] 08/24/2009 12:07:00 Document Registration [id number] 08/05/2009 16:30:00 Document Registration [id number] 07/29/2009 23:32:00 Document Registration [id number] 06/25/2009 15:06:00 Document Registration [id number] 05/25/2009 09:09:00 Document Registration [id number] 05/14/2009 12:31:00 Document Registration [id number] 04/07/2009 10:12:00 Document Registration [id number] 04/01/2009 10:10:00 Document Registration [id number] 03/02/2009 14:54:00 Document Registration [id number] 12/24/2007 09:23:00 Document Registration [id number] 10/31/2006 15:11:00 Document Registration [id number] 05/29/2006 09:51:00 Document Registration [id number] 03/09/2006 06:40:00 Document Registration [id number] 01/17/2006 08:34:00 Document Registration [id number] 01/10/2006 10:15:00 Document Registration [id number] 09/27/2017 10:00:00 09/27/2017 23:59:59 [facility] [id number] 05/11/2017 11:20:00 Document Registration [id number] 11/11/2016 14:40:00 Document Registration [id number] 03/11/2016 07:05:00 Document Registration [id number] 10/07/2013 09:20:00 10/07/2013 23:59:59 CLS Outpatient MARCELINO RIVAS DO [id number] 05/09/2013 09:56:00 05/09/2013 23:59:59 CLS Outpatient MARCELINO RIVAS DO [id number] 04/05/2013 10:23:00 04/05/2013 23:59:59 CLS Outpatient MARCELINO RIVAS DO [id number] 11/14/2016 14:08:00 Document Registration [id number] 02/23/2016 07:05:00 Document Registration [id number] 07/29/2016 16:07:00 Document Registration
[2017-11-25] MEDS ORDERED: LORazepam INJ 2 MG/ML (ATIVAN) VIAL IVP PRN (13:30)
[2017-11-25 13:56] LABS: FIBRIN DEGRADATION PRODUCTS 0.27 UG/ML (0.00-0.49)
[2017-11-25] MEDS ORDERED: HYDR-4226 PO (14:19)
[2017-11-25 14:25] VITALS: BP 140/85
== END 2017-11-25 14:25 | disposition home or self-care (01) ==
LOC: EDUNIT# 12:19 → ER 12:20
DX: R07.89 Other chest pain (principal); M25.512 Pain in left shoulder; E78.00 Pure hypercholesterolemia, unspecified; I10 Essential (primary) hypertension; G43.909 Migraine, unspecified, not intractable, without status migrainosus; F41.9 Anxiety disorder, unspecified; F31.9 Bipolar disorder, unspecified; K21.9 Gastro-esophageal reflux disease without esophagitis; E11.9 Type 2 diabetes mellitus without complications; Z85.819 Personal history of malignant neoplasm of unspecified site of lip, oral cavity, and pharynx; Z82.49 Family history of ischemic heart disease and other diseases of the circulatory system; Z80.0 Family history of malignant neoplasm of digestive organs; Z92.21 Personal history of antineoplastic chemotherapy; Z87.19 Personal history of other diseases of the digestive system; Z87.442 Personal history of urinary calculi; Z90.49 Acquired absence of other specified parts of digestive tract; Z98.51 Tubal ligation status; Z98.890 Other specified postprocedural states; Z90.710 Acquired absence of both cervix and uterus; Z86.718 Personal history of other venous thrombosis and embolism; Z90.89 Acquired absence of other organs; Z87.891 Personal history of nicotine dependence; Z91.041 Radiographic dye allergy status; Z88.5 Allergy status to narcotic agent; Z91.048 Other nonmedicinal substance allergy status; Z88.0 Allergy status to penicillin
CPT/HCPCS: 36415; 71045; 80053; 83735; 83874; 83880; 84484; 85025; 85379; 85610; 85730; 93005; 93041; 96374; 96375

== ENCOUNTER 2018-02-03 21:52 | Emergency (ER) | payer MEDICARE ==
[~2018-02-03] VITALS: Ht 170.2 cm; Wt 86.2 kg
--- NOTE | 2018-02-03 21:58 | ED Headache ---
General Stated Complaint: HEADACHE Source: patient, EMS History of Present Illness Date Seen by Provider: Feb 03, 2018 Time Seen by Provider: 21:49 Initial Comments PT ARRIVES VIA EMS FROM HOME C/O SUDDEN ONSET OF SEVERE HEADACHE AT 2100 AND IMMEDIATELY CALLED EMS--STATES HEADACHE IS ALOT BETTER NOW. HAD SOME NAUSEA BUT IS GONE NOW HAD SOME DIZZINESS BUT NOT NOW PAIN STARTED IN FRONT OF HEAD AND MOVED TO BACK OF HEAD NO PARESTHESIAS OR MOTOR DEFICITS NO FEVER OR RECENT ILLNESS STATES NO HISTORY OF HEADACHES, NO HISTORY OF NEUROLOGICAL PROBLEMS NO HISTORY OF CARDIAC PROBLEMS--OLD RECORDS REPORT HISTORY OF CHRONIC HEADACHES BP 200/90 AT SCENE BY EMS, DOWN TO 168/106 WITHOUT TREATMENT EMS HAS NOT GIVEN ANYTHING FOR PAIN ACCUCHECK 106 BY EMS. PCP: JAI-SAFIA Allergies and Home Medications Allergies Coded Allergies: Iodinated Contrast- Oral and IV Dye (Verified Allergy, Severe, HIVES, 10/02) COUGHING, SNEEZING, HIVES UPON TRACE AMOUNT OF CONTRAST. codeine (Verified Allergy, Intermediate, RASH/SWELLING; PATIENT HAS RECEIVED MORPHINE W/O PROBLEMS, 12/06/16) adhesive tape (Verified Allergy, Unknown, 12/06/16) latex (Verified Allergy, Unknown, 12/06/16) Penicillins (Verified Adverse Reaction, Mild, NAUSEA/VOMITING, 12/07/16) SHE CAN TAKE AUGMENTIN FINE Home Medications Amlodipine Besylate 10 Mg Tablet, 10 MG PO DAILY, (Reported) Atorvastatin Calcium 20 Mg Tablet, 20 MG PO DAILY, (Reported) Budesonide/Formoterol Fumarate 10.2 Gm Hfa.aer.ad, 2 PUFF IH PRN PRN for SHORTNESS OF BREATH, (Reported) Escitalopram Oxalate 20 Mg Tablet, 20 MG PO DAILY, (Reported) Gabapentin 300 Mg Capsule, 300 MG PO QID, (Reported) Hydrocodone/Acetaminophen 1 Each Tablet, 1 EACH PO Q4H PRN for PAIN-MODERATE Prescribed by: MARTHA LEE on 11/25/17 1419 Lamotrigine 200 Mg Tablet, 200 MG PO DAILY, (Reported) Levothyroxine Sodium 50 Mcg Tablet, 50 MCG PO DAILY, (Reported) Lurasidone HCl 40 Mg Tablet, 40 MG PO DAILY, (Reported) Pantoprazole Sodium 40 Mg Tablet.dr, 40 MG PO DAILY, (Reported) Patient Home Medication List Home Medication List Reviewed: Yes Review of Systems Review of Systems Constitutional: see HPI, dizziness Eyes: See HPI, Blurred Vision, Decreased Acuity Ears, Nose, Mouth, Throat: no symptoms reported Respiratory: no symptoms reported Cardiovascular: no symptoms reported; No chest pain, No edema, No palpitations , No syncope, No vascular heart diseas Gastrointestinal: see HPI; No abdominal pain Genitourinary: no symptoms reported Musculoskeletal: no symptoms reported; No back pain, No neck pain Skin: no symptoms reported Psychiatric/Neurological: See HPI, Headache; Denies Numbness, Denies Paresthesia, Denies Seizure, Denies Tingling, Denies Weakness Past Bntoted-Wtpzww-Esctvz Hx Patient Social History Type Used: Cigarettes Former Smoker, Quit: Aug 11, 1986 2nd Hand Smoke Exposure: No Recent Foreign Travel: No Contact w/Someone Who Travel: No Recent Hopitalizations: No Immunizations Up To Date Tetanus Booster (TDap): Less than 5yrs PED Vaccines UTD: No Date of Pneumonia Vaccine: July 25, 2016 Date of Influenza Vaccine: July 25, 2016 Seasonal Allergies Seasonal Allergies: Yes Past Medical History Surgeries: Yes (MODIFIED RADICAL NECK DISSECTION; PEG TUBE, TRACH, COLON RESECTION, BUNION SX, PORT/PEG REMOVED IN 2010, EGD/COLONOSCOPIES/ POLYPECTOMY/ ESOPHAGEAL DILATIONS; CARDIAC CATH-NO INTERVENTION; BREAST REDUCTION; CYSTOSCOPY /URETERAL STENT) Abdominal, Adenoidectomy, Appendectomy, Bowel Surgery, Breast, Cardiac, Gallbladder, Hysterectomy, Oophorectomy, Orthopedic, Tonsillectomy, Tracheostomy , Tubal Ligation Respiratory: Yes (HAS INHALER PRN) Chronic Bronchitis Currently Using CPAP: No Cardiac: Yes (CARDIAC CATH-NO STENTS; BLOOD CLOT 2010 UPPER SHOULDER/ARM) Deep Vein Thrombosis, High Cholesterol, Hypertension Neurological: Yes Headaches /Migraines Reproductive Disorders: No Female Reproductive Disorders: Polycystic Ovarian Dis 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, Menopausal Sexually Transmitted Disease: No HIV/AIDS: No Genitourinary: Yes Kidney Stones Gastrointestinal: Yes (HX ORPHARYNGEAL CANCER--S/P SURGERY; ESOPAGEAL STRICTURES/DILATIONS; DYSPHAGIA) Gastroesophageal Reflux, Chronic Constipation, Diverticulosis, Polyps Musculoskeletal: Yes Arthritis, Fibromyalgia Endocrine: Yes Diabetes, Non-Insulin dep HEENT: Yes (THROAT CANCER) Dysphagia Loss of Vision: Bilateral Hearing Impairment: Denies Cancer: Yes (OROPHARNYX CANCER) Did You Recieve Any Treatments: Yes What Type of Treatment Did You: Chemotherapy, Radiation, Surgical Intervention Psychosocial: Yes (MULTIPLE PSYCH ADMITS, OVERDOSES AND SUICIDE ATTEMPTS) Sleep Difficulties, Anxiety, Suicide Attempts, Bipolar, Depression Integumentary: No Blood Disorders: No Adverse Reaction/Blood Tranf: No Family Medical History Alzheimer's disease 19 MOTHER Arthritis 19 MOTHER Cardiovascular disease 19 MOTHER Cataracts 19 MOTHER Dementia 19 MOTHER Diabetes mellitus 19 FATHER Headache disorder Hypercholesterolemia 19 FATHER Hypertension 19 FATHER Neoplasm 19 FATHER (PANCREATIC CANCER) Heart Disease, Cancer, Hypertension, Psychiatric Problems Physical Exam Vital Signs Capillary Refill : Height, Weight, BMI Height: 5'6.00" Weight: 180lbs. 0.0oz. 81.960419cr; 27.9 BMI Method:Stated General Appearance: WD/WN, no apparent distress HEENT: PERRL/EOMI, normal ENT inspection, TMs normal, pharynx normal Neck: non-tender, full range of motion, supple, normal inspection Cardiovascular: regular rate, rhythm, no murmur Respiratory: normal breath sounds, no respiratory distress, no accessory muscle use Gastrointestinal: normal bowel sounds, non tender, soft Back: normal inspection Extremities: normal range of motion, non-tender, normal inspection, no pedal edema, no calf tenderness, normal capillary refill Psychiatric: alert, oriented x 3, other (ANXIOUS) Crainal Nerves: normal hearing, PERRL Coordination/Gait: normal gait Motor/Sensory: no motor deficit, no sensory deficit, no pronator drift Reflexes: 1+ Bicep (R), 1+ Bicep (L), 1+ Knee (R), 1+ Knee (L) Skin: normal color, warm/dry Progress/Results/Core Measures Results/Orders Lab Results Laboratory Tests Test 02/03/18 22:00 Range/Units White Blood Count 5.6 4.3-11.0 10^3/uL Red Blood Count 4.92 4.35-5.85 10^6/uL Hemoglobin 13.8 11.5-16.0 G/DL Hematocrit 42 35-52 % Mean Corpuscular Volume 84 80-99 FL Mean Corpuscular Hemoglobin 28 25-34 PG Mean Corpuscular Hemoglobin Concent 33 32-36 G/DL Red Cell Distribution Width 14.6 H 10.0-14.5 % Platelet Count 198 130-400 10^3/uL Mean Platelet Volume 9.7 7.4-10.4 FL Neutrophils (%) (Auto) 54 42-75 % Lymphocytes (%) (Auto) 34 12-44 % Monocytes (%) (Auto) 11 0-12 % Eosinophils (%) (Auto) 1 0-10 % Basophils (%) (Auto) 0 0-10 % Neutrophils # (Auto) 3.0 1.8-7.8 X 10^3 Lymphocytes # (Auto) 1.9 1.0-4.0 X 10^3 Monocytes # (Auto) 0.6 0.0-1.0 X 10^3 Eosinophils # (Auto) 0.1 0.0-0.3 10^3/uL Basophils # (Auto) 0.0 0.0-0.1 10^3/uL Prothrombin Time 12.9 12.2-14.7 SEC INR Comment 1.0 0.8-1.4 Activated Partial Thromboplast Time 30 24-35 SEC Sodium Level 139 135-145 MMOL/L Potassium Level 3.7 3.6-5.0 MMOL/L Chloride Level 104 98-107 MMOL/L Carbon Dioxide Level 24 21-32 MMOL/L Anion Gap 11 5-14 MMOL/L Blood Urea Nitrogen 10 7-18 MG/DL Creatinine 0.74 0.60-1.30 MG/DL Estimat Glomerular Filtration Rate > 60 BUN/Creatinine Ratio 14 Glucose Level 108 H 70-105 MG/DL Calcium Level 9.6 8.5-10.1 MG/DL Corrected Calcium 9.4 8.5-10.1 MG/DL Magnesium Level 2.3 1.8-2.4 MG/DL Total Bilirubin 0.2 0.1-1.0 MG/DL Aspartate Amino Transf (AST/SGOT) 18 5-34 U/L Alanine Aminotransferase (ALT/SGPT) 14 0-55 U/L Alkaline Phosphatase 75 40-136 U/L Total Protein 6.9 6.4-8.2 GM/DL Albumin 4.3 3.2-4.5 GM/DL TSH Dawes Testing 4.72 0.35-4.94 UIU/ML My Orders Orders - AGAPITO CHONG DO Saline Lock/Iv-Start (02/03/18 21:53) Ekg Tracing (02/03/18 21:53) Monitor-Rhythm Ecg Trace Only (02/03/18 21:53) Ct Head Wo-R/O Stroke (02/03/18 21:53) Cbc With Automated Diff (02/03/18 21:53) Comprehensive Metabolic Panel (02/03/18 21:53) Magnesium (02/03/18 21:53) Protime With Inr (02/03/18 21:53) Partial Thromboplastin Time (02/03/18 21:53) Thyroid Analyzer (02/03/18 21:53) Chest 1 View, Ap/Pa Only (02/03/18 21:53) Ketorolac Injection (Toradol Injection) (02/03/18 22:29) Orphenadrine Injection (Norflex Injectio (02/03/18 22:54) Fentanyl Injection (Sublimaze Injection (02/03/18 23:30) Metoclopramide Injection (Reglan Injecti (02/04/18 00:00) Iv Push Camp Maintenance Supervisor Ed (02/03/18 ) Progress Progress Note : Progress Note BP DOWN AND HEADACHE GONE AT DISMISSAL UNEVENTFUL ER STAY Initial ECG Impression Date: Feb 03, 2018 Initial ECG Impression Time: 22:29 Initial ECG Rate: 59 Initial ECG Rhythm: Normal Sinus Initial ECG Impression: Nonspecific Changes (IVCD) Initial ECG Comparisson: No Previous ECG Available Diagnostic Imaging Comments CT HEAD--NO ACUTE PROCESS, PER [facility] VIA FAX AT [id number] Reviewed: Reviewed by Me Departure Impression Primary Impression: Headache Additional Impression: HTN (hypertension) Disposition: 01 HOME, SELF-CARE Condition: Improved Departure-Patient Inst. Referrals: [facility]/K (PCP) Primary Care Physician DICK ANGULO APRN (Family) Primary Care Physician Patient Instructions: DASH Diet, Headache, Adult (DC), High Blood Pressure (DC) Add. Discharge Instructions: TAKE YOUR MEDICATIONS PRESCRIBED FOLLOW UP WITH YOUR DR ON MONDAY FOR FURTHER CARE AGAPITO CHONG DO Feb 03, 2018 21:58
--- OUTSIDE RECORDS SUMMARY | 2018-02-03 21:58 | XMS REPORT | Clinical Summary ---
Author Author [facility] Organization [facility] Address Unknown Phone Unavailable Care Team Providers Care Beauty Director Name Role Phone Estefani Mims MD Unavailable Neymar Crandall MD Unavailable Chyna Prater MA,[facility]-GEAR DESIGN ENGINEER Unavailable Unavailable Temitope Hopper MD PCP Duy [...] in the Health Information Management department at [phone] for further assistance in locating additional records.[facility] Allergies Active Allergy Reactions Severity Noted [...] Date Anxiety 11/27/2015 Cluster B personality disorder ([facility]) 02/16/2015 Bipolar I disorder ([facility]) 01/14/2015 PTSD (post-traumatic stress disorder) 11/29/2014 Panic attacks 07/10/2014 Dysphonia 01/25/2011 Laryngeal edema - post radiation therapy 01/25/2011 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 Personal history of irradiation 08/26/2010 Dysphagia 08/26/2010 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 Resolved Problems Problem Noted Date Resolved Date Suicidal ideation 01/09/2016 01/18/2016 Suicidal ideation 05/25/2015 06/10/2015 Major depressive disorder, recurrent, severe without psychotic features 02/201505/26/2015 ([facility]) Suicidal thoughts 01/27/2015 02/11/2015 Bipolar 1 disorder, depressed, severe ([facility]) 01/27/2015 02/14/2015 Depression with suicidal ideation 12/29/2014 01/14/2015 Bipolar 1 disorder, mixed, partial remission ([facility]) 06/12/2014 05/26/2015 Family History Medical History Relation [...] Taken Blood Pressure 136/86 01/18/2016 9:30 AM WALL INSULATION SPRAYER Pulse 89 01/18/2016 9:30 AM WALL INSULATION SPRAYER Temperature 37 C (98.6 F) 01/18/2016 9:30 AM WALL INSULATION SPRAYER Respiratory Rate - - Oxygen Saturation 93% 01/18/2016 9:30 AM WALL INSULATION SPRAYER Inhaled Oxygen - - Concentration Weight 106.5 kg (234 lb 12.8 oz) 01/22/2016 11:20 AM WALL INSULATION SPRAYER Height 167.6 cm (5' 6") 01/22/2016 11:20 AM WALL INSULATION SPRAYER Body Mass Index 37.9 01/22/2016 11:20 AM WALL INSULATION SPRAYER Plan of Treatment Health Maintenance Due Date Last Done Comments HEPATITIS C SCREENING 1959 PHYSICAL (COMPREHENSIVE) 1966 EXAM HIV SCREENING 1974 DTAP/TDAP VACCINES (1 - 1977 Tdap) CERVICAL CANCER SCREENING 1989 BREAST CANCER SCREENING 1999 COLORECTAL CANCER 2009 SCREENING SHINGLES RECOMBINANT 2009 VACCINE (1 of 2) INFLUENZA VACCINE 10/04/2017 Results Not on filefrom Last 3 Months
--- OUTSIDE RECORDS SUMMARY | 2018-02-03 21:59 | XMS REPORT ---
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 Name Role Phone GURINDER NORTON Unavailable PROBLEMS Type Condition ICD9-CM Code DBB71-FW Code Onset Dates Condition Status SNOMED Code Problem Gastroesophageal reflux disease with esophagitis K21.0 Active 979933784 Problem Polysubstance (including opioids) dependence with physiol dependence F19.20 Active 48872196 Problem History of esophageal cancer Z85.01 Active 426795696 Problem Seasonal allergies J30.2 Active 679640391 Problem Pre-diabetes R73.03 Active 385919038 Problem GERD (gastroesophageal reflux disease) K21.9 Active 616823522 Problem Borderline personality disorder F60.3 Active 32142083 Problem Pure hypercholesterolemia E78.00 Active 869260443 Problem Nephrolithiasis N20.0 Active 35252841 Problem STATE HEP A (ADULT) DX V05.3 Active 047188186 Problem Bipolar 1 disorder, depressed, moderate F31.32 Active 01759150 Problem Anxiety F41.9 Active 81444714 Problem Vitamin D insufficiency E55.9 Active 248282172 Problem Essential hypertension I10 Active 27941267 Problem Elevated serum creatinine R79.89 Active 009126315 Problem Acquired hypothyroidism E03.9 Active 233528559 ALLERGIES No Information ENCOUNTERS Encounter Location Date Diagnosis [facility] [id number] [address] Jan, [facility] [id number] [place] [address] 87122- 0368 Jan, [facility] [address] [address] Dec, [facility] [address] [address] Dec, Bipolar 1 disorder, depressed, moderate F31.32 and Anxiety F41.9 [facility] [id number] [place] [address] 10961- 6170 Dec, Bipolar 1 disorder, depressed, moderate F31.32 [facility] [id number] [place] [address] Dec, Bipolar 1 disorder, depressed, moderate F31.32 and Anxiety F41.9 [place] [address] 32280- 2255 Dec, Encounter for immunization Z23 [place] [address] 108439- 1298 Nov, [place] [address] 34326- 8625 Nov, Bipolar 1 disorder, depressed, moderate F31.32 and Anxiety F41.9 [place] [address] 17929- 3906 Nov, Bipolar 1 disorder, depressed, moderate F31.32 [facility] [address] 56950- 3726 Nov, [facility] [id number] [place] [address] 05817- 1752 Nov, Bipolar 1 disorder, depressed, moderate F31.32 and Anxiety F41.9 [place] [id number] [place] [address] 63126- 1918 Oct, Bipolar 1 disorder, depressed, moderate F31.32 ; Anxiety F41.9 ; Borderline personality disorder F60.3 ; Polysubstance (including opioids ) dependence with physiol dependence F19.20 and Other 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 Z79.899 [facility] [id number] [place] [address] 78042- 9015 Oct, Bipolar 1 disorder, depressed, moderate F31.32 [facility] [id number] [place] [address] [id number] Sep, Encounter for dental examination Z01.20 [place] [id number] [place] [address] 17267- 9462 Sep, Acute oral pain K13.79 [place] [id number] [place] [address] 84485- 6825 Sep, Bipolar 1 disorder, depressed, moderate F31.32 [place] [id number] [place] [address] 78485- 5794 Sep, Bipolar 1 disorder, depressed, moderate F31.32 [place] [id number] [place] [address] 94364- 0387 Sep, Bipolar 1 disorder, depressed, moderate F31.32 [place] [id number] [place] [address] 51112- 3471 Sep, Essential hypertension I10 ; Acquired hypothyroidism E03.9 ; Anxiety F41.9 ; Chronic nausea R11.0 and Irritant contact dermatitis due to plants, except food L24.7 [place] [address] [place] [address] 44921- 2748 Aug, Bipolar 1 disorder, depressed, moderate F31.32 [place] [address] [place] [address] 28506- 2099 Aug, Bipolar 1 disorder, depressed, moderate F31.32 [place] [address] [place] [address] 80050- 0879 Aug, Bipolar 1 disorder, depressed, moderate F31.32 [place] [address] [place] [address] 95098- 0423 July, Candidal dermatitis B37.2 [place] [id number] [place] [address] 22077- 5859 July, Acquired hypothyroidism E03.9 [id number] [place] [address] 96564- 8101 July, Bipolar 1 disorder, depressed, moderate F31.32 [facility] [id number] [place] [address] 55637 -4546 July, Seasonal allergies J30.2 [facility] [id number] [place] [address] July, Bipolar 1 disorder, depressed, moderate F31.32 [place] [id number] [place] [address] 308613- 8839 Jun, Pre-diabetes R73.03 [place] [id number] [place] [address] 97729- 0086 Jun, Bipolar 1 disorder, depressed, moderate F31.32 ; Anxiety F41.9 ; Borderline personality disorder F60.3 ; Polysubstance (including opioids ) dependence with physiol dependence F19.20 and Other specified abnormal findings of blood chemistry R79.89 [place] [id number] [place] [address] 269910- 4700 Jun, Bipolar 1 disorder, depressed, moderate F31.32 [place] [id number] [place] [address] 24216- 4331 May, Bipolar 1 disorder, depressed, moderate F31.32 [facility] [id number] [place] [address] 30550- 2117 May, Bipolar 1 disorder, depressed, moderate F31.32 [place] [id number] [place] [address] 61148- 4885 May, [place] [id number] [place] [address] 50245- 7141 May, [place] [id number] [place] [address] 46900- 0732 May, Bipolar 1 disorder, depressed, moderate F31.32 [place] [id number] [place] [address] 45658- 6161 May, Bipolar 1 disorder, depressed, moderate F31.32 [place] [address] 74459- 4347 May, Other specified abnormal findings of blood chemistry R79.[address] 74239- 8382 May, Essential hypertension I10 ; Acquired hypothyroidism E03.9 ; Gastroesophageal reflux disease with esophagitis K21.0 ; Hair loss L65.9 ; Hypokalemia, gastrointestinal losses E87.6 ; Pre-diabetes R73.03 ; Candidal dermatitis B37.2 and Pure hypercholesterolemia E78.[address] 82572- 1650 Apr, Bipolar 1 disorder, depressed, moderate F31.[address] 02725- 2631 Apr, Bipolar 1 disorder, depressed, moderate F31.[address] 79601- 9414 Apr, Bipolar 1 disorder, depressed, moderate F31.32 and Anxiety F41.9 [facility] [address] [place] [address] 98452 -5629 Mar, Encounter for immunization Z23 ; Fall, initial encounter W19.XXXA ; Rib pain on left side R07.81 and Left hip pain M25.[address] 03140- 7517 Mar, Bipolar 1 disorder, depressed, moderate F31.32 and Anxiety F41.[address] 77927- 2916 Mar, Bipolar 1 disorder, depressed, moderate F31.32 ; Anxiety F41.9 ; Borderline personality disorder F60.3 and Polysubstance (including opioids) dependence with physiol dependence F19.[address] 24906- 3790 Mar, Bipolar 1 disorder, depressed, moderate F31.32 and Anxiety F41.9 [facility] [id number] [place] [address] 04895 -5066 Feb, Irritant contact dermatitis, unspecified trigger L24.9 [facility] [id number] [place] [address] 87296- 3948 Feb, [facility] [address] 11848- 8363 Feb, [facility] [id number] [place] [address] 07204- 1636 Feb, Bipolar 1 disorder, depressed, moderate F31.32 and Anxiety F41.9 [facility] [address] 45738- 7955 Feb, Acute non-recurrent maxillary sinusitis J01.00 [place] [address] 84749- 5696 Feb, [facility] [id number] [place] [address] 78901- 4999 Feb, Bipolar 1 disorder, depressed, moderate F31.32 [facility] [id number] [place] [address] 33325- 8926 Jan, [facility] [id number] [place] [address] 57239- 3116 Jan, Bipolar 1 disorder, depressed, moderate F31.32 ; Anxiety F41.9 ; Borderline personality disorder F60.3 and Polysubstance (including opioids) dependence with physiol dependence F19.20 [facility] [id number] [place] [address] 56218- 3328 27 Jan, 2017 Bipolar 1 disorder, depressed, moderate F31.32 and Anxiety F41.9 [facility] [id number] [place] [address] 66578- 8305 Jan, Bipolar 1 disorder, depressed, moderate F31.32 ; Anxiety F41.9 ; Borderline personality disorder F60.3 and Polysubstance (including opioids) dependence with physiol dependence F19.20 [address] [place] [id number] [place] [address] 81532- 9421 Jan, Bipolar 1 disorder, depressed, moderate F31.32 and Anxiety F41.9 [id number] [place] [address] 75419- 0822 Dec, Hypokalemia, gastrointestinal losses E87.6 ; GERD ( gastroesophageal reflux disease) K21.9 and Bipolar 1 disorder, depressed, moderate F31.[address] 91858- 6325 Dec, Bipolar 1 disorder, depressed, moderate F31.32 and Anxiety F41.9 [facility] [address] 97026 -8658 Dec, [address] 57661- 6815 Dec, [facility] [address] 25879 -6772 Dec, Fall (on) (from) other stairs and steps, initial encounter W10.8XXA ; Laceration of left lower extremity, initial encounter S81.812A ; Contusion of right knee, initial encounter S80.01XA and Contusion of right shoulder, initial encounter S40.011A [id number] [place] [address] 36932- 6049 Dec, Bipolar 1 disorder, depressed, moderate F31.32 ; Anxiety F41.9 ; Borderline personality disorder F60.3 and Polysubstance (including opioids) dependence with physiol dependence F19.[address] 27449- 0591 Dec, Bipolar 1 disorder, depressed, moderate F31.32 and Anxiety F41.9 [id number] [place] [address] 62428- 8574 Dec, [id number] [place] [address] 09180- 8007 05 Dec, 2016 Hospital discharge follow-up Z09 ; Nephrolithiasis N20.0 ; Essential hypertension I10 ; Gastroesophageal reflux disease with esophagitis K21.0 and Anxiety F41.9 [place] [address] 05563- 0987 28 Nov, 2016 [facility] [address] 35502 -2649 24 Nov, 2016 Dysuria R30.0 and Acute cystitis with hematuria N30.01 [facility] IN [facility] [address] 498484 -1509 24 Nov, 2016 [place] [address] 41274- 7701 Nov, [place] [address] 15752- 5698 Nov, Gastroesophageal reflux disease with esophagitis K21.0 ; Hypercholesteremia E78.00 and Acquired hypothyroidism E03.9 [facility] IN [facility] [address] 55421 -9407 18 Nov, 2016 Left wrist pain M25.532 and Contusion of left wrist, initial encounter S60.212A [place] [address] 27669- 6632 18 Nov, 2016 Bipolar 1 disorder, depressed, moderate F31.32 ; Anxiety F41.9 ; Borderline personality disorder F60.3 and Polysubstance (including opioids) dependence with physiol dependence F19.20 [facility] IN [facility] [address] 10865 -5049 15 Nov, 2016 Abdominal pain R10.9 and GERD (gastroesophageal reflux disease) K21.9 [place] [address] 57989- 5326 12 Nov, 2016 Hypokalemia, gastrointestinal losses E87.6 [place] [id number] [place] [address]- 4303 11 Nov, 2016 Dehydration E86.0 ; Hypokalemia, gastrointestinal losses E87.6 and Vaginal candidiasis B37.3 [place] [address] 21381- 4047 08 Nov, 2016 Abnormal weight loss R63.4 ; Diarrhea, unspecified R19.7 ; Vomiting, unspecified R11.10 ; Generalized abdominal pain R10.84 and Decreased breath sounds R06.89 [place] [address] 13334- 8894 Oct, Bipolar 1 disorder, depressed, moderate F31.32 and Anxiety F41.[address] 12539- 3898 Sep, Bipolar 1 disorder, depressed, moderate F31.32 ; Anxiety F41.9 ; Borderline personality disorder F60.3 and Polysubstance (including opioids) dependence with physiol dependence F19.20 [place] [address] 74069- 4152 Sep, Bipolar 1 disorder, depressed, moderate F31.32 and Anxiety F41.9 [address] [id number] [place] [address] 96336- 2624 Sep, Bipolar 1 disorder, depressed, moderate F31.32 [place] [id number] [place] [address] 08004- 1243 Sep, Bipolar 1 disorder, depressed, moderate F31.32 and Anxiety F41.9 [facility] [address] [place] [id number] [place] [address] 56310 -1368 Sep, Pain of toe of right foot M79.674 [place] [id number] [place] [address] 52053- 4771 Sep, [facility] [address] 08159 -0728 Sep, Cellulitis of right ankle L03.115 [place] [id number] [place] [address] 67871- 2122 Sep, Bipolar 1 disorder, depressed, moderate F31.32 and Anxiety F41.9 [place] [address] 48920- 5018 Sep, [place] [address] 75983- 5928 Sep, [place] [address] 06480- 1197 Sep, Bipolar 1 disorder, depressed, moderate F31.32 and Anxiety F41.[address] 46305- 5540 Sep, Accidental spider bite T63.301A [address] 34652- 840 Aug, Bipolar 1 disorder, depressed, moderate F31.32 ; Anxiety F41.9 ; Borderline personality disorder F60.3 and Polysubstance (including opioids) dependence with physiol dependence F19.[address] 37850- 0489 Aug, [place] [address] 86152- 2403 Aug, Bipolar 1 disorder, depressed, moderate F31.32 and Anxiety F41.9 [place] [address] 68541- 2154 Aug, Pre-diabetes R73.03 ; Acute seasonal allergic rhinitis due to pollen J30.1 ; Hypercholesteremia E78.00 and Nausea R11.0 [place] [address] 82789- 1850 Aug, [place] [address] 57823- 4186 Aug, Bipolar 1 disorder, depressed, moderate F31.32 and Anxiety F41.9 [facility] [id number] [place] [address] 13386- 5313 Aug, [facility] [address] 28379- 9388 Aug, [place] [id number] [place] [address] 27687- 7494 Aug, [facility] [address] 92133- 6790 Aug, Bipolar 1 disorder, depressed, moderate F31.32 and Anxiety F41.[address] 85016- 9487 Aug, [facility] [address] 96523 -3281 Aug, Insect bite, initial encounter W57.XXXA and Cellulitis of left lower leg L03.116 [place] [address] 97819- 1028 Aug, Bipolar 1 disorder, depressed, moderate F31.32 and Borderline personality disorder F60.[address] 81728- 9956 July, [place] [id number] [place] [address] 73215- 2447 July, [place] [id number] [place] [address] 61868- 5240 July, Encounter for routine adult health examination with abnormal findings Z00.01 ; History of esophageal cancer Z85.01 ; Bipolar 1 disorder, depressed, moderate F31.32 ; Anxiety F41.9 ; Acquired hypothyroidism E03.9 ; Essential hypertension I10 ; Gastroesophageal reflux disease with esophagitis K21.0 and Encounter for immunization Z23 [place] [place] [id number] [place] [address] 10779- 6113 July, Bipolar 1 disorder, depressed, moderate F31.32 and Anxiety F41.9 [facility] [address] [place] [address] 25872- 2818 July, [facility] [id number] [place] [address]- [address]1 July, Bipolar 1 disorder, depressed, moderate F31.32 and Anxiety F41.9 [facility] [id number] [place] [address] 57908- 8356 July, Bipolar 1 disorder, depressed, moderate F31.32 [facility] [id number] [place] [address] 20479- 1116 July, Bipolar 1 disorder, depressed, moderate F31.32 and Anxiety F41.9 [place] [id number] [place] [address] 23471- 2367 Jun, Bipolar 1 disorder, depressed, moderate F31.32 [place] [id number] [place] [address] 70501- 2633 Jun, Bipolar 1 disorder, depressed, moderate F31.32 and Borderline personality disorder F60.3 [place] [id number] [place] [address] 32455- 5218 Jun, Bipolar 1 disorder, depressed, moderate F31.32 [facility] [id number] [place] [address] 85186- 8986 Jun, Bipolar 1 disorder, depressed, moderate F31.32 [facility] [id number] [place] [address] 95941- 5602 May, Bipolar 1 disorder, depressed, moderate F31.32 and Anxiety F41.9 [facility] [id number] [place] [address] 64451- 1696 May, Bipolar 1 disorder, depressed, moderate F31.32 and Anxiety F41.9 [facility] [address] [place] [address] 63632- 0508 May, Bipolar 1 disorder, depressed, moderate F31.32 and Anxiety F41.9 [facility] [id number] [address]- 2839 May, Bipolar 1 disorder, depressed, moderate F31.32 and Borderline personality disorder F60.3 [facility] [address] [address]- 4136 May, [facility] [id number] [place] [address] 76158- 7202 May, Bipolar 1 disorder, depressed, moderate F31.32 and Anxiety F41.9 [facility] [address] [place] [address] 46136- 3048 May, Bipolar 1 disorder, depressed, moderate F31.32 and Anxiety F41.9 [facility] [address] [place] [address] 82925- 2842 May, [facility] [id number] [place] [address] 24029- 5320 May, Bipolar 1 disorder, depressed, moderate F31.32 [facility] [address] [place] [address] 40038- 2351 May, Bipolar 1 disorder, depressed, moderate F31.32 and Generalized anxiety disorder F41.1 [facility] [address] [address]- 3312 Apr, Bipolar 1 disorder, depressed, moderate F31.32 and Anxiety F41.9 [facility] [address] [address]- 5343 Apr, [facility] [id number] [place] [address] 90883- 5724 Apr, Bipolar 1 disorder, depressed, moderate F31.32 and Anxiety F41.9 [facility] [address] [address]- 3739 Apr, Bipolar 1 disorder, depressed, moderate F31.32 and Anxiety F41.9 [facility] [id number] [place] [address] 19910- 2585 Apr, Bipolar affective disorder, depressed, severe F31.4 and Generalized anxiety disorder F41.1 [place] [id number] [place] [address] 73080- 6085 Mar, Bipolar 1 disorder, depressed, moderate F31.32 and Anxiety F41.9 [place] [id number] [place] [address] 80010- 9238 Mar, Bipolar 1 disorder, depressed, moderate F31.32 and Anxiety F41.9 [place] [id number] [place] [address] 78972- 8828 Mar, Bipolar 1 disorder, mixed, moderate F31.62 [place] [id number] [place] [address] 86587- 3074 Mar, [place] [id number] [place] [address] 98355- 8292 Mar, Bipolar 1 disorder, mixed, moderate F31.62 ; Generalized anxiety disorder F41.1 and 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 [place] [id number] [place] [address] 96814- 0735 Feb, Bipolar 1 disorder, depressed, moderate F31.32 and Anxiety F41.9 [place] [address] [place] [address] 63825- 8218 Feb, Bipolar 1 disorder, depressed, moderate F31.32 and Other 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 Z79.899 [place] [address] [place] [address] 12616- 7635 Feb, [place] [id number] [place] [address] 29872- 3851 Feb, Bipolar 1 disorder, depressed, moderate F31.32 and Anxiety F41.9 [place] [id number] [place] [address] 47860- 0553 Feb, Bipolar 1 disorder, depressed, moderate F31.32 and 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 [facility] [address] [place] [address] 02852- 0130 Feb, Bipolar 1 disorder, depressed, moderate F31.32 and Anxiety F41.9 [facility] [address] [address]- 6687 Dec, Bipolar 1 disorder, depressed, moderate F31.32 and Anxiety F41.9 [facility] [address] [address]- 3881 Oct, [facility] [id number] [place] [address] 95012- 2195 Oct, [facility] [id number] [place] [id number] May, [facility] [id number] [place] [phone] May, [facility] [id number] [place] [phone] Mar, [facility] [id number] [address] Mar, IMMUNIZATIONS No Known Immunizations SOCIAL HISTORY Never Assessed REASON FOR VISIT Follow-up Depression PLAN OF CARE Activity Details Follow Up 2 Weeks Reason: Follow-up VITAL SIGNS MEDICATIONS Unknown Medications RESULTS No Results PROCEDURES Procedure Date Ordered Result Body Site [facility] VISIT MENTAL HEALTH ESTAB PT Dec 14, 2017 Psychotherapy, patient &/family, 30 minutes, established patient Dec 14, 2017 INSTRUCTIONS MEDICATIONS ADMINISTERED No Known [...] kidney stone removal Surgical History Colonoscopy- Dr. Dietrcih 08/2017 Hospitalization History Surgeries Hospitalization History Cancer Head and Neck [address] [facility] Hospital Psych[facility] Admission 2016
--- OUTSIDE RECORDS SUMMARY | 2018-02-03 21:59 | XMS REPORT ---
Author Author MICHELLE DARCI [facility] Address [address] [place] [address] Care Team Providers Care Scheduler Name Role Phone MICHELLE, DARCI Unavailable PROBLEMS Type Condition ICD9-CM Code NNG36-DK Code Onset Dates Condition Status SNOMED Code Problem Gastroesophageal reflux disease with esophagitis K21.0 Active 873310710 Problem Polysubstance (including opioids) dependence with physiol dependence F19.20 Active 63680789 Problem History of esophageal cancer Z85.01 Active 002609732 Problem Seasonal allergies J30.2 Active 441067394 Problem Pre-diabetes R73.03 Active 658071745 Problem GERD (gastroesophageal reflux disease) K21.9 Active 567397908 Problem Borderline personality disorder F60.3 Active 08277171 Problem Pure hypercholesterolemia E78.00 Active 148375515 Problem Nephrolithiasis N20.0 Active 78529271 Problem STATE HEP A (ADULT) DX V05.3 Active 222249931 Problem Bipolar 1 disorder, depressed, moderate F31.32 Active 27417779 Problem Anxiety F41.9 Active 24667678 Problem Vitamin D insufficiency E55.9 Active 158700204 Problem Essential hypertension I10 Active 36168031 Problem Elevated serum creatinine R79.89 Active 799360802 Problem Acquired hypothyroidism E03.9 Active 867313979 ALLERGIES No Information ENCOUNTERS Encounter Location Date Diagnosis [facility] [id number] [address] Jan, [facility] [address] [address] Jan, [facility] [address] [address] Dec, Bipolar 1 disorder, depressed, moderate F31.32 and Anxiety F41.9 [facility] [id number] [place] [address] 70703- 5560 Dec, Bipolar 1 disorder, depressed, moderate F31.32 [facility] [address] 05[address]- 8619 Dec, Bipolar 1 disorder, depressed, moderate F31.32 and Anxiety F41.9 [facility] [address] 33865- 4676 Dec, Encounter for immunization Z23 [facility] [address] 38106- 5988 Nov, [facility] [address] 14518- 5045 Nov, Bipolar 1 disorder, depressed, moderate F31.32 and Anxiety F41.9 [facility] [address] 87983- 0205 Nov, Bipolar 1 disorder, depressed, moderate F31.32 [facility] [id number] [place] [address] 04509- 7847 Nov, [facility] [address] 80274- 8471 Nov, Bipolar 1 disorder, depressed, moderate F31.32 and Anxiety F41.9 [facility] [id number] [place] [address] 62287- 0533 Oct, Bipolar 1 disorder, depressed, moderate F31.32 ; Anxiety F41.9 ; Borderline personality disorder F60.3 ; Polysubstance (including opioids ) dependence with physiol dependence F19.20 and Other correction (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 Z79.899 [facility] [id number] [place] [address] 83483- 9883 Oct, Bipolar 1 disorder, depressed, moderate F31.32 [facility] [id number] [place] [address] [id number] Sep, Encounter for dental examination Z01.20 [facility] [id number] [place] [address] 00008- 7617 Sep, Acute oral pain K13.79 [place] [address] 75303- 5273 Sep, Bipolar 1 disorder, depressed, moderate F31.32 [place] [address] 01446- 2885 Sep, Bipolar 1 disorder, depressed, moderate F31.32 [place] [id number] [place] [address] 66328- 7966 Sep, Bipolar 1 disorder, depressed, moderate F31.32 [place] [address] 14915- 7153 Sep, Essential hypertension I10 ; Acquired hypothyroidism E03.9 ; Anxiety F41.9 ; Chronic nausea R11.0 and Irritant contact dermatitis due to plants, except food L24.7 [place] [id number] [place] [address] 23313- 7981 Aug, Bipolar 1 disorder, depressed, moderate F31.32 [place] [id number] [place] [address] 73571- 8545 Aug, Bipolar 1 disorder, depressed, moderate F31.32 [place] [id number] [place] [address] 20216- 2682 Aug, Bipolar 1 disorder, depressed, moderate F31.32 [place] [id number] [place] [address] 72920- 7113 July, Candidal dermatitis B37.2 [place] [address] 98801- 9671 July, Acquired hypothyroidism E03.9 [place] [id number] [place] [address] 17206- 3657 July, Bipolar 1 disorder, depressed, moderate F31.32 [facility] [address] [id number] -3020 July, Seasonal allergies J30.2 [place] [id number] [place] [address] 960 July, Bipolar 1 disorder, depressed, moderate F31.32 [place] [id number] [place] [address] 3[address] Jun, Pre-diabetes R73.03 [place] [address] 277313- 1658 Jun, Bipolar 1 disorder, depressed, moderate F31.32 ; Anxiety F41.9 ; Borderline personality disorder F60.3 ; Polysubstance (including opioids ) dependence with physiol dependence F19.20 and Other specified abnormal findings of blood chemistry R79.89 [place] [id number] [place] [address] 83472- 3045 Jun, Bipolar 1 disorder, depressed, moderate F31.32 [place] [id number] [place] [address] 600669- 6061 May, Bipolar 1 disorder, depressed, moderate F31.32 [place] [id number] [place] [address] 872566- 0776 May, Bipolar 1 disorder, depressed, moderate F31.32 [place] [id number] [place] [address] 77173- 6316 May, [place] [id number] [place] [address] 41534- 0607 May, [place] [id number] [place] [address] 67562- 4824 May, Bipolar 1 disorder, depressed, moderate F31.32 [place] [id number] [place] [address] 73975- 7267 May, Bipolar 1 disorder, depressed, moderate F31.32 [place] [id number] [place] [address] 97345- 8444 May, Other specified abnormal findings of blood chemistry R79.[address] 66886- 4773 May, Essential hypertension I10 ; Acquired hypothyroidism E03.9 ; Gastroesophageal reflux disease with esophagitis K21.0 ; Hair loss L65.9 ; Hypokalemia, gastrointestinal losses E87.6 ; Pre-diabetes R73.03 ; Candidal dermatitis B37.2 and Pure hypercholesterolemia E78.[address] 997 Apr, Bipolar 1 disorder, depressed, moderate F31.[address] 258 Apr, Bipolar 1 disorder, depressed, moderate F31.[address] [address]29 672 Apr, Bipolar 1 disorder, depressed, moderate F31.32 and Anxiety F41.9 [facility] [address] [address] -0138 Mar, Encounter for immunization Z23 ; Fall, initial encounter W19.XXXA ; Rib pain on left side R07.81 and Left hip pain M25.[address] 61283- 8933 Mar, Bipolar 1 disorder, depressed, moderate F31.32 and Anxiety F41.[address] 58667- 0519 Mar, Bipolar 1 disorder, depressed, moderate F31.32 ; Anxiety F41.9 ; Borderline personality disorder F60.3 and Polysubstance (including opioids) dependence with physiol dependence F19.[address] 19411- 7611 Mar, Bipolar 1 disorder, depressed, moderate F31.32 and Anxiety F41.9 [facility] [address] [place] [address] 64810 -7528 Feb, Irritant contact dermatitis, unspecified trigger L24.9 [facility] [id number] [place] [address] 00012- 6072 Feb, [facility] [id number] [place] [address] 63239- 5955 Feb, [facility] [id number] [place] [address] 256704- 5772 Feb, Bipolar 1 disorder, depressed, moderate F31.32 and Anxiety F41.9 [facility] [id number] [place] [address] 05991- 8308 Feb, Acute non-recurrent maxillary sinusitis J01.00 [facility] [id number] [place] [address] 01812- 7591 Feb, [facility] [id number] [place] [address] 52099- 4231 Feb, Bipolar 1 disorder, depressed, moderate F31.32 [facility] [id number] [place] [address] 78776- 9563 Jan, [facility] [id number] [place] [address] 9098 Jan, Bipolar 1 disorder, depressed, moderate F31.32 ; Anxiety F41.9 ; Borderline personality disorder F60.3 and Polysubstance (including opioids) dependence with physiol dependence F19.20 [facility] [address] [place] [address] 32017- 9505 27 Jan, 2017 Bipolar 1 disorder, depressed, moderate F31.32 and Anxiety F41.9 [facility] [address] [place] [address] 86266- 4520 Jan, Bipolar 1 disorder, depressed, moderate F31.32 ; Anxiety F41.9 ; Borderline personality disorder F60.3 and Polysubstance (including opioids) dependence with physiol dependence F19.20 [facility] [id number] [place] [address] 23750- 0217 Jan, Bipolar 1 disorder, depressed, moderate F31.32 and Anxiety F41.9 [place] [address] 17021- 4971 Dec, Hypokalemia, gastrointestinal losses E87.6 ; GERD ( gastroesophageal reflux disease) K21.9 and Bipolar 1 disorder, depressed, moderate F31.32 [place] [address] 59779- 5312 Dec, Bipolar 1 disorder, depressed, moderate F31.32 and Anxiety F41.9 [facility] [place] [address] 189013 -0853 Dec, [place] [address] 88984- 9095 Dec, [facility] [place] [address] 49078 -3545 Dec, Fall (on) (from) other stairs and steps, initial encounter W10.8XXA ; Laceration of left lower extremity, initial encounter S81.812A ; Contusion of right knee, initial encounter S80.01XA and Contusion of right shoulder, initial encounter S40.011A [place] [address] 69665- 9656 Dec, Bipolar 1 disorder, depressed, moderate F31.32 ; Anxiety F41.9 ; Borderline personality disorder F60.3 and Polysubstance (including opioids) dependence with physiol dependence F19.20 [place] [address] 58268- 2175 Dec, Bipolar 1 disorder, depressed, moderate F31.32 and Anxiety F41.9 [place] [id number] [place] [address] 41500- 0004 Dec, [place] [address] 04792- 1323 Dec, Hospital discharge follow-up Z09 ; Nephrolithiasis N20.0 ; Essential hypertension I10 ; Gastroesophageal reflux disease with esophagitis K21.0 and Anxiety F41.9 [place] [address] [id number]- 899 28 Nov, 2016 [facility] [address] 67135 -7873 24 Nov, 2016 Dysuria R30.0 and Acute cystitis with hematuria N30.01 [facility] [address] 91818 -4306 24 Nov, 2016 [place] [address] 895735- 7716 19 Nov, 2016 [place] [address] 57926- 1591 19 Nov, 2016 Gastroesophageal reflux disease with esophagitis K21.0 ; Hypercholesteremia E78.00 and Acquired hypothyroidism E03.9 [facility] [address] 46949 -5531 18 Nov, 2016 Left wrist pain M25.532 and Contusion of left wrist, initial encounter S60.212A [place] [address] 11900- 3459 18 Nov, 2016 Bipolar 1 disorder, depressed, moderate F31.32 ; Anxiety F41.9 ; Borderline personality disorder F60.3 and Polysubstance (including opioids) dependence with physiol dependence F19.20 [facility] [id number] [place] [address] 60254 -8844 15 Nov, 2016 Abdominal pain R10.9 and GERD (gastroesophageal reflux disease) K21.9 [place] [address] 51770- 9020 12 Nov, 2016 Hypokalemia, gastrointestinal losses E87.6 [place] [address] 27162- 8881 11 Nov, 2016 Dehydration E86.0 ; Hypokalemia, gastrointestinal losses E87.6 and Vaginal candidiasis B37.[address] 91710- 2221 Nov, Abnormal weight loss R63.4 ; Diarrhea, unspecified R19.7 ; Vomiting, unspecified R11.10 ; Generalized abdominal pain R10.84 and Decreased breath sounds R06.89 [place] [address] 38614- 3637 Oct, Bipolar 1 disorder, depressed, moderate F31.32 and Anxiety F41.[address] 09097- 9805 Sep, Bipolar 1 disorder, depressed, moderate F31.32 ; Anxiety F41.9 ; Borderline personality disorder F60.3 and Polysubstance (including opioids) dependence with physiol dependence F19.[address] 41659- 8996 Sep, Bipolar 1 disorder, depressed, moderate F31.32 and Anxiety F41.[address] 80356- 6740 Sep, Bipolar 1 disorder, depressed, moderate F31.[address] 94905- 1403 Sep, Bipolar 1 disorder, depressed, moderate F31.32 and Anxiety F41.9 [facility] [address] [place] [address] 79999 -3943 Sep, Pain of toe of right foot M79.[address] 63017- 2845 Sep, [facility] [address] [place] [address] 23306 -8696 Sep, Cellulitis of right ankle L03.[address] 30341- 8053 Sep, Bipolar 1 disorder, depressed, moderate F31.32 and Anxiety F41.9 [place] [id number] [place] [address] 63214- 5278 Sep, [facility] [id number] [place] [address] 77511- 7879 Sep, [place] [address] 71802- 5622 Sep, Bipolar 1 disorder, depressed, moderate F31.32 and Anxiety F41.9 [place] [address] 68459- 4127 Sep, Accidental spider bite T63.301A [place] [address] 53787- 0272 Aug, Bipolar 1 disorder, depressed, moderate F31.32 ; Anxiety F41.9 ; Borderline personality disorder F60.3 and Polysubstance (including opioids) dependence with physiol dependence F19.20 [place] [id number] [place] [address] 72450- 3801 Aug, [place] [address] 04098- 3985 Aug, Bipolar 1 disorder, depressed, moderate F31.32 and Anxiety F41.9 [place] [address] 76317- 6990 Aug, Pre-diabetes R73.03 ; Acute seasonal allergic rhinitis due to pollen J30.1 ; Hypercholesteremia E78.00 and Nausea R11.0 [place] [id number] [place] [address] 03598- 7805 Aug, [place] [address] 04870- 0084 13 Aug, 2016 Bipolar 1 disorder, depressed, moderate F31.32 and Anxiety F41.9 [place] [address] 39761- 7527 08 Aug, 2016 [facility] [id number] [place] [address] 55787- 6683 Aug, [place] [address] 76948- 3188 Aug, [facility] [address] 55389- 3172 Aug, Bipolar 1 disorder, depressed, moderate F31.32 and Anxiety F41.9 [place] [id number] [place] [address] 70640- 2054 Aug, [facility] [address] [place] [address] 60472 -3030 Aug, Insect bite, initial encounter W57.XXXA and Cellulitis of left lower leg L03.[address] 15406- 8084 Aug, Bipolar 1 disorder, depressed, moderate F31.32 and Borderline personality disorder F60.3 [place] [id number] [place] [address] 91274- 4587 July, [address] 79373- 0675 July, [place] [id number] [place] [address] 10537- 2717 July, Encounter for routine adult health examination with abnormal findings Z00.01 ; History of esophageal cancer Z85.01 ; Bipolar 1 disorder, depressed, moderate F31.32 ; Anxiety F41.9 ; Acquired hypothyroidism E03.9 ; Essential hypertension I10 ; Gastroesophageal reflux disease with esophagitis K21.0 and Encounter for immunization Z23 [address] 37451- 7486 July, Bipolar 1 disorder, depressed, moderate F31.32 and Anxiety F41.[address] 29969- 1305 July, [facility] [address] [place] [address] 21256- 8742 July, Bipolar 1 disorder, depressed, moderate F31.32 and Anxiety F41.9 [facility] [id number] [place] [address] 099788- 4182 July, Bipolar 1 disorder, depressed, moderate F31.32 [facility] [id number] [place] [address] 97734- 7430 July, Bipolar 1 disorder, depressed, moderate F31.32 and Anxiety F41.9 [place] [id number] [place] [address] 29264- 6021 Jun, Bipolar 1 disorder, depressed, moderate F31.32 [place] [id number] [place] [address] 51332- 2545 Jun, Bipolar 1 disorder, depressed, moderate F31.32 and Borderline personality disorder F60.3 [place] [id number] [place] [address] 63383- 1233 Jun, Bipolar 1 disorder, depressed, moderate F31.32 [place] [id number] [place] [address] 75923- 9931 Jun, Bipolar 1 disorder, depressed, moderate F31.32 [place] [address] [place] [address] 59263- 6764 May, Bipolar 1 disorder, depressed, moderate F31.32 and Anxiety F41.9 [place] [address] [place] [address] 72733- 4979 May, Bipolar 1 disorder, depressed, moderate F31.32 and Anxiety F41.9 [place] [id number] [place] [address] 88984- 8204 May, Bipolar 1 disorder, depressed, moderate F31.32 and Anxiety F41.9 [place] [id number] [place] [address] 90791- 0928 May, Bipolar 1 disorder, depressed, moderate F31.32 and Borderline personality disorder F60.3 [place] [id number] [place] [address]- 4009 May, [facility] [id number] [place] [address]- 3889 May, Bipolar 1 disorder, depressed, moderate F31.32 and Anxiety F41.9 [place] [address] 97044- 0623 May, Bipolar 1 disorder, depressed, moderate F31.32 and Anxiety F41.9 [place] [address] 96136- 1697 May, [place] [id number] [place] [address] 33398- 4278 May, Bipolar 1 disorder, depressed, moderate F31.32 [place] [address] 42048- 8671 May, Bipolar 1 disorder, depressed, moderate F31.32 and Generalized anxiety disorder F41.1 [place] [id number] [place] [address] 23308- 0119 Apr, Bipolar 1 disorder, depressed, moderate F31.32 and Anxiety F41.9 [place] [id number] [place] [address] 02740- 8341 Apr, [place] [address] [place] [address] [id number]- 1219 Apr, Bipolar 1 disorder, depressed, moderate F31.32 and Anxiety F41.9 [place] [id number] [place] [address]- 5801 Apr, Bipolar 1 disorder, depressed, moderate F31.32 and Anxiety F41.9 [place] [id number] [place] [address] 51486- 8801 Apr, Bipolar affective disorder, depressed, severe F31.4 and Generalized anxiety disorder F41.1 [facility] [address] [place] [address] 32080- 5516 Mar, Bipolar 1 disorder, depressed, moderate F31.32 and Anxiety F41.9 [facility] [id number] [place] [address] 11680- 5538 Mar, Bipolar 1 disorder, depressed, moderate F31.32 and Anxiety F41.9 [facility] [id number] [place] [address] 52023- 8567 Mar, Bipolar 1 disorder, mixed, moderate F31.62 [place] [id number] [place] [address] 53112- 8204 Mar, [place] [id number] [place] [address] 88870- 6494 Mar, Bipolar 1 disorder, mixed, moderate F31.62 ; Generalized anxiety disorder F41.1 and 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 (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 Z79.899 [facility] [id number] [place] [address] 81048- 8497 Feb, Bipolar 1 disorder, depressed, moderate F31.32 and Anxiety F41.9 [facility] [address] [place] [address] 35322- 9113 Feb, Bipolar 1 disorder, depressed, moderate F31.32 and 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 (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 Z79.899 [facility] [address] [place] [address] 13058- 1319 Feb, [facility] [id number] [place] [address] 91008- 3387 Feb, Bipolar 1 disorder, depressed, moderate F31.32 and Anxiety F41.9 [facility] [address] [place] [address] 99891- 4103 Feb, Bipolar 1 disorder, depressed, moderate F31.32 and Other correction (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 Z79.899 [place] [address] [address]- 6092 Feb, Bipolar 1 disorder, depressed, moderate F31.32 and Anxiety F41.9 [place] [address] [place] [address] 20690- 1167 Dec, Bipolar 1 disorder, depressed, moderate F31.32 and Anxiety F41.9 [place] [address] [address] [id number] [place] [address] 324539- 6103 Oct, [place] [address] [id number] [place] [address] 425402- 0981 Oct, [place] [address] [id number] [place] [address] 439872- 0640 May, [place] [address] [id number] [place] [address] 83332- 4016 May, [place] [address] [address] [id number] [place] [address] 400530- 5954 Mar, [place] [address] [address] [id number] [place] [address] 80497- 7964 Mar, IMMUNIZATIONS No Known Immunizations SOCIAL HISTORY Never Assessed REASON FOR VISIT PLAN OF CARE VITAL SIGNS MEDICATIONS Medication Instructions Dosage Frequency Start Date End Date Duration Status Propranolol HCl 10 mg Orally 2 times a day as needed for anxiety 1 tablet Oct, 30 day(s) Active RESULTS No Results PROCEDURES [...] Cancer Head and Neck 2004 Hospitalization History [facility] Admission 2016
--- OUTSIDE RECORDS SUMMARY | 2018-02-03 22:00 | XMS REPORT ---
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 Name Role Phone MICHELLE, DARCI Unavailable PROBLEMS Type Condition ICD9-CM Code MLN51-QC Code Onset Dates Condition Status SNOMED Code Problem Gastroesophageal reflux disease with esophagitis K21.0 Active 253612853 Problem Polysubstance (including opioids) dependence with physiol dependence F19.20 Active 20693397 Problem History of esophageal cancer Z85.01 Active 440924481 Problem Seasonal allergies J30.2 Active 489788788 Problem Pre-diabetes R73.03 Active 523108699 Problem GERD (gastroesophageal reflux disease) K21.9 Active 674321777 Problem Borderline personality disorder F60.3 Active 91052758 Problem Pure hypercholesterolemia E78.00 Active 873152140 Problem Nephrolithiasis N20.0 Active 48566024 Problem STATE HEP A (ADULT) DX V05.3 Active 033480955 Problem Bipolar 1 disorder, depressed, moderate F31.32 Active 76365154 Problem Anxiety F41.9 Active 41791910 Problem Vitamin D insufficiency E55.9 Active 363950174 Problem Essential hypertension I10 Active 68887120 Problem Elevated serum creatinine R79.89 Active 440041619 Problem Acquired hypothyroidism E03.9 Active [id number] ALLERGIES No Information ENCOUNTERS Encounter Location Date Diagnosis [facility] [id number] [address] Jan, [facility] [id number] [place] [address] 80703- 5390 Jan, [facility] [address], [place] [address] Dec, [facility] [id number] [place] [address] 62258- 9213 Dec, Bipolar 1 disorder, depressed, moderate F31.32 and Anxiety F41.9 [facility] [id number] [place] [address] 63513- 9847 Dec, Bipolar 1 disorder, depressed, moderate F31.32 [facility] [address] 898156- 2977 Dec, Bipolar 1 disorder, depressed, moderate F31.32 and Anxiety F41.9 [facility] [address] 125302- 3208 Dec, Encounter for immunization Z23 [place] [address] 327568- 3675 Nov, [facility] [address] 65946- 4699 Nov, Bipolar 1 disorder, depressed, moderate F31.32 and Anxiety F41.9 [place] [address] 86428- 0392 Nov, Bipolar 1 disorder, depressed, moderate F31.32 [facility] [address] 28398- 6507 Nov, [facility] [address] 96621- 8250 Nov, Bipolar 1 disorder, depressed, moderate F31.32 and Anxiety F41.9 [place] [address] 53594- 4437 Oct, Bipolar 1 disorder, depressed, moderate F31.32 ; Anxiety F41.9 ; Borderline personality disorder F60.3 ; Polysubstance (including opioids ) dependence with physiol dependence F19.20 and Other meterman (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 Z79.899 [facility] [id number] [place] [address] 53663- 0348 Oct, Bipolar 1 disorder, depressed, moderate F31.[address] [facility] [address] [id number] Sep, Encounter for dental examination Z01.20 [place] [address] 88200- 3917 Sep, Acute oral pain K13.79 [place] [id number] [place] [address] 21399- 4808 Sep, Bipolar 1 disorder, depressed, moderate F31.32 [place] [id number] [place] [address] 42907- 0068 Sep, Bipolar 1 disorder, depressed, moderate F31.32 [place] [id number] [place] [address] 73443- 4444 Sep, Bipolar 1 disorder, depressed, moderate F31.32 [place] [id number] [place] [address] 60335- 9771 Sep, Essential hypertension I10 ; Acquired hypothyroidism E03.9 ; Anxiety F41.9 ; Chronic nausea R11.0 and Irritant contact dermatitis due to plants, except food L24.7 [place] [id number] [place] [address] 07038- 3793 Aug, Bipolar 1 disorder, depressed, moderate F31.32 [place] [id number] [place] [address] 70890- 1912 Aug, Bipolar 1 disorder, depressed, moderate F31.32 [place] [id number] [place] [address] 24440- 4052 Aug, Bipolar 1 disorder, depressed, moderate F31.32 [place] [id number] [place] [address] 35682- 0216 July, Candidal dermatitis B37.2 [place] [id number] [place] [address] 80894- 6395 July, Acquired hypothyroidism E03.9 [place] [address] 41426- 7114 July, Bipolar 1 disorder, depressed, moderate F31.32 [facility] [id number] [place] [address] 15762 -0393 July, Seasonal allergies J30.2 [facility] [id number] [place] [address] 156373- 9354 July, Bipolar 1 disorder, depressed, moderate F31.32 [facility] [address] 99047- 2777 Jun, Pre-diabetes R73.03 [place] [id number] [place] [address] 62047- 0284 Jun, Bipolar 1 disorder, depressed, moderate F31.32 ; Anxiety F41.9 ; Borderline personality disorder F60.3 ; Polysubstance (including opioids ) dependence with physiol dependence F19.20 and Other specified abnormal findings of blood chemistry R79.89 [facility] [address] 02675- 6096 Jun, Bipolar 1 disorder, depressed, moderate F31.32 [place] [id number] [place] [address] 41996- 0392 May, Bipolar 1 disorder, depressed, moderate F31.32 [facility] [id number] [place] [address] 61279- 3280 May, Bipolar 1 disorder, depressed, moderate F31.32 [facility] [id number] [place] [address] 42918- 8057 May, [place] [id number] [place] [address] 58476- 6294 May, [facility] [address] 56319- 8077 May, Bipolar 1 disorder, depressed, moderate F31.32 [facility] [id number] [place] [address] 15096- 5460 May, Bipolar 1 disorder, depressed, moderate F31.32 [place] [id number] [place] [address] 75288- 5427 May, Other specified abnormal findings of blood chemistry R79.[address] 08798- 905 May, Essential hypertension I10 ; Acquired hypothyroidism E03.9 ; Gastroesophageal reflux disease with esophagitis K21.0 ; Hair loss L65.9 ; Hypokalemia, gastrointestinal losses E87.6 ; Pre-diabetes R73.03 ; Candidal dermatitis B37.2 and Pure hypercholesterolemia E78.[address] 20782- 4795 Apr, Bipolar 1 disorder, depressed, moderate F31.[address] 30595- 643 Apr, Bipolar 1 disorder, depressed, moderate F31.[address] 23278- 3745 Apr, Bipolar 1 disorder, depressed, moderate F31.32 and Anxiety F41.9 [facility] [address] [address]10 -4807 Mar, Encounter for immunization Z23 ; Fall, initial encounter W19.XXXA ; Rib pain on left side R07.81 and Left hip pain M25.[address] 00671- 1336 Mar, Bipolar 1 disorder, depressed, moderate F31.32 and Anxiety F41.[address] 75468- 0425 Mar, Bipolar 1 disorder, depressed, moderate F31.32 ; Anxiety F41.9 ; Borderline personality disorder F60.3 and Polysubstance (including opioids) dependence with physiol dependence F19.[address] 01910- 8127 Mar, Bipolar 1 disorder, depressed, moderate F31.32 and Anxiety F41.9 [facility] [id number] [place] [address] 00279 -4363 Feb, Irritant contact dermatitis, unspecified trigger L24.9 [facility] [id number] [place] [address] 36146- 0326 Feb, [facility] [id number] [place] [address] 30894- 0533 Feb, [facility] [id number] [place] [address] 53281- 3514 Feb, Bipolar 1 disorder, depressed, moderate F31.32 and Anxiety F41.9 [facility] [id number] [place] [address] 88780- 3343 Feb, Acute non-recurrent maxillary sinusitis J01.00 [place] [id number] [place] [address] 92653- 7208 Feb, [place] [id number] [place] [address] 93388- 1936 Feb, Bipolar 1 disorder, depressed, moderate F31.32 [facility] [id number] [place] [address] 02057- 6004 Jan, [facility] [id number] [place] [address] 06575- 1707 Jan, Bipolar 1 disorder, depressed, moderate F31.32 ; Anxiety F41.9 ; Borderline personality disorder F60.3 and Polysubstance (including opioids) dependence with physiol dependence F19.20 [place] [id number] [place] [address] 50532- 4719 27 Jan, 2017 Bipolar 1 disorder, depressed, moderate F31.32 and Anxiety F41.9 [facility] [id number] [place] [address] 35668- 8230 Jan, Bipolar 1 disorder, depressed, moderate F31.32 ; Anxiety F41.9 ; Borderline personality disorder F60.3 and Polysubstance (including opioids) dependence with physiol dependence F19.20 [place] [id number] [place] [address] 08926- 4464 Jan, Bipolar 1 disorder, depressed, moderate F31.32 and Anxiety F41.9 [place] [id number] [place] [address] 90804- 3379 Dec, Hypokalemia, gastrointestinal losses E87.6 ; GERD ( gastroesophageal reflux disease) K21.9 and Bipolar 1 disorder, depressed, moderate F31.32 [place] [address] 98767- 0646 Dec, Bipolar 1 disorder, depressed, moderate F31.32 and Anxiety F41.9 [facility] [place] [address] 49575 -5862 Dec, [place] [address] 85911- 8908 Dec, [facility] [place] [id number] [place] [address] 39320 -5638 Dec, Fall (on) (from) other stairs and steps, initial encounter W10.8XXA ; Laceration of left lower extremity, initial encounter S81.812A ; Contusion of right knee, initial encounter S80.01XA and Contusion of right shoulder, initial encounter S40.011A [place] [id number] [place] [address] 19340- 8794 Dec, Bipolar 1 disorder, depressed, moderate F31.32 ; Anxiety F41.9 ; Borderline personality disorder F60.3 and Polysubstance (including opioids) dependence with physiol dependence F19.20 [place] [id number] [place] [address] 4669 Dec, Bipolar 1 disorder, depressed, moderate F31.32 and Anxiety F41.9 [place] [id number] [place] [address] 19200- 7591 Dec, [place] [address] 38305- 5961 Dec, Hospital discharge follow-up Z09 ; Nephrolithiasis N20.0 ; Essential hypertension I10 ; Gastroesophageal reflux disease with esophagitis K21.0 and Anxiety F41.9 [place] [address] 72573- 8692 28 Nov, 2016 [facility] [address] 54771 -5979 Nov, Dysuria R30.0 and Acute cystitis with hematuria N30.01 [facility] WALK IN [place] [address] 002415 -3469 Nov, [place] [address] 26375- 7661 Nov, [place] [address] 77770- 4916 Nov, Gastroesophageal reflux disease with esophagitis K21.0 ; Hypercholesteremia E78.00 and Acquired hypothyroidism E03.9 [facility] [place] [address] 78817 -5290 Nov, Left wrist pain M25.532 and Contusion of left wrist, initial encounter S60.212A [place] [address] 84426- 0510 18 Nov, 2016 Bipolar 1 disorder, depressed, moderate F31.32 ; Anxiety F41.9 ; Borderline personality disorder F60.3 and Polysubstance (including opioids) dependence with physiol dependence F19.20 [facility] WALK IN [place] [address] 48291 -5153 15 Nov, 2016 Abdominal pain R10.9 and GERD (gastroesophageal reflux disease) K21.9 [place] [address] 77356- 2177 12 Nov, 2016 Hypokalemia, gastrointestinal losses E87.6 [place] [id number] [place] [address] 59459- 1538 11 Nov, 2016 Dehydration E86.0 ; Hypokalemia, gastrointestinal losses E87.6 and Vaginal candidiasis B37.3 [place] [address] 29377- 9336 08 Nov, 2016 Abnormal weight loss R63.4 ; Diarrhea, unspecified R19.7 ; Vomiting, unspecified R11.10 ; Generalized abdominal pain R10.84 and Decreased breath sounds R06.89 [place] [address] 14722- 0807 Oct, Bipolar 1 disorder, depressed, moderate F31.32 and Anxiety F41.9 [place] [address] 73665- 0373 Sep, Bipolar 1 disorder, depressed, moderate F31.32 ; Anxiety F41.9 ; Borderline personality disorder F60.3 and Polysubstance (including opioids) dependence with physiol dependence F19.20 [place] [address] 37217- 6236 Sep, Bipolar 1 disorder, depressed, moderate F31.32 and Anxiety F41.9 [place] [address] 29353- 5270 Sep, Bipolar 1 disorder, depressed, moderate F31.32 [place] [address] 91209- 3661 Sep, Bipolar 1 disorder, depressed, moderate F31.32 and Anxiety F41.9 [facility] [address] [place] [address] 57989 -8264 Sep, Pain of toe of right foot M79.674 [place] [address] 99581- 4991 Sep, [facility] [address] 72343 -1650 Sep, Cellulitis of right ankle L03.115 [place] [id number] [place] [address] 67621- 9816 Sep, Bipolar 1 disorder, depressed, moderate F31.32 and Anxiety F41.9 [place] [id number] [place] [address] 78585- 3991 Sep, [place] [address] 01091- 9497 Sep, [place] [address] 15590- 3977 Sep, Bipolar 1 disorder, depressed, moderate F31.32 and Anxiety F41.9 [place] [address] 79256- 6651 Sep, Accidental spider bite T63.301A [address] 11425- 9194 Aug, Bipolar 1 disorder, depressed, moderate F31.32 ; Anxiety F41.9 ; Borderline personality disorder F60.3 and Polysubstance (including opioids) dependence with physiol dependence F19.20 [place] [address] 55926- 7909 Aug, [place] [id number] [place] [address] 34942- 7074 Aug, Bipolar 1 disorder, depressed, moderate F31.32 and Anxiety F41.9 [place] [address] 65952- 9383 Aug, Pre-diabetes R73.03 ; Acute seasonal allergic rhinitis due to pollen J30.1 ; Hypercholesteremia E78.00 and Nausea R11.0 [place] [id number] [place] [address] 83444- 9994 Aug, [place] [address] 49594- 5994 Aug, Bipolar 1 disorder, depressed, moderate F31.32 and Anxiety F41.9 [facility] [id number] [place] [address] 29626- 6237 Aug, [facility] [address] 08448- 7159 Aug, [place] [id number] [place] [address] 56495- 3139 Aug, [facility] [address] 26684- 7741 Aug, Bipolar 1 disorder, depressed, moderate F31.32 and Anxiety F41.9 [place] [address] 81476- 9679 Aug, [facility] [id number] [place] [address] 27604 -9430 Aug, Insect bite, initial encounter W57.XXXA and Cellulitis of left lower leg L03.116 [place] [id number] [place] [address] 53366- 8550 Aug, Bipolar 1 disorder, depressed, moderate F31.32 and Borderline personality disorder F60.3 [place] [id number] [place] [address] 27659- 0071 July, [place] [id number] [place] [address] 67892- 1546 July, [place] [address] 83868- 8979 July, Encounter for routine adult health examination with abnormal findings Z00.01 ; History of esophageal cancer Z85.01 ; Bipolar 1 disorder, depressed, moderate F31.32 ; Anxiety F41.9 ; Acquired hypothyroidism E03.9 ; Essential hypertension I10 ; Gastroesophageal reflux disease with esophagitis K21.0 and Encounter for immunization Z23 [place] [id number] [place] [address] 95733- 7002 July, Bipolar 1 disorder, depressed, moderate F31.32 and Anxiety F41.9 [facility] [address] [place] [address] 88582- 7920 July, [facility] [id number] [place]- 2688 July, Bipolar 1 disorder, depressed, moderate F31.32 and Anxiety F41.9 [place] [id number] [place]- 3069 July, Bipolar 1 disorder, depressed, moderate F31.32 [place] [id number] [place] [address] 303826- 9171 July, Bipolar 1 disorder, depressed, moderate F31.32 and Anxiety F41.9 [place] [id number] [place] [address] 33720- 0407 Jun, Bipolar 1 disorder, depressed, moderate F31.32 [place] [id number] [place] [address] 20783- 0652 Jun, Bipolar 1 disorder, depressed, moderate F31.32 and Borderline personality disorder F60.3 [place] [id number] [place] [address] 35175- 7109 Jun, Bipolar 1 disorder, depressed, moderate F31.32 [place] [id number] [place] [address] 61854- 9450 Jun, Bipolar 1 disorder, depressed, moderate F31.32 [place] [id number] [place] [address]- 2291 May, Bipolar 1 disorder, depressed, moderate F31.32 and Anxiety F41.9 [place] [id number] [place]- 9745 May, Bipolar 1 disorder, depressed, moderate F31.32 and Anxiety F41.9 [facility] [id number] [place] [address] 99635- 4535 May, Bipolar 1 disorder, depressed, moderate F31.32 and Anxiety F41.9 [facility] [address] [place] [address] 75301- 8148 May, Bipolar 1 disorder, depressed, moderate F31.32 and Borderline personality disorder F60.3 [facility] [id number] [place] [address] 75456- 4196 May, [facility] [id number] [place] [address] 63551- 5517 May, Bipolar 1 disorder, depressed, moderate F31.32 and Anxiety F41.9 [facility] [id number] [place] [address] 18081- 3429 May, Bipolar 1 disorder, depressed, moderate F31.32 and Anxiety F41.9 [place] [id number] [place] [address] 67391- 7748 May, [facility] [id number] [place] [address] 78158- 2523 May, Bipolar 1 disorder, depressed, moderate F31.32 [facility] [id number] [place] [address] 03673- 7765 May, Bipolar 1 disorder, depressed, moderate F31.32 and Generalized anxiety disorder F41.1 [facility] [id number] [place] [address] 55100- 7802 Apr, Bipolar 1 disorder, depressed, moderate F31.32 and Anxiety F41.9 [facility] [address] [place] [address] 61929- 4395 Apr, [facility] [id number] [place] [address] 66596- 9791 Apr, Bipolar 1 disorder, depressed, moderate F31.32 and Anxiety F41.9 [facility] [address] [place] [address] 95585- 8974 09 Apr, 2016 Bipolar 1 disorder, depressed, moderate F31.32 and Anxiety F41.9 [place] [address] [place] [address] 72812- 8639 Apr, Bipolar affective disorder, depressed, severe F31.4 and Generalized anxiety disorder F41.1 [place] [address] [place] [id number] [place] [address]- 6839 Mar, Bipolar 1 disorder, depressed, moderate F31.32 and Anxiety F41.9 [place] [id number] [place] [address] 27667- 4483 Mar, Bipolar 1 disorder, depressed, moderate F31.32 and Anxiety F41.9 [place] [address] [id number] [place] [address] 85429- 6318 Mar, Bipolar 1 disorder, mixed, moderate F31.62 [place] [id number] [place] [address] 92693- 4232 Mar, [place] [address] [place] [address] [id number] [place] [address] 01393- 6374 Mar, Bipolar 1 disorder, mixed, moderate F31.62 ; Generalized anxiety disorder F41.1 and Other skilled nursing (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 Z79.899 [place] [address] [place] [id number] [place] [address] 25349- 0607 Feb, Bipolar 1 disorder, depressed, moderate F31.32 and Anxiety F41.9 [place] [id number] [place] [address] 70608- 0945 Feb, Bipolar 1 disorder, depressed, moderate F31.32 and Other skilled nursing (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 Z79.899 [place] [address] [place] [id number] [place] [address] 13091- 7460 Feb, [place] [address] [place] [address] [id number] [place] [address] 91706- 4014 Feb, Bipolar 1 disorder, depressed, moderate F31.32 and Anxiety F41.9 [place] [address] [place] [id number] [place] [address] 27909- 1615 Feb, Bipolar 1 disorder, depressed, moderate F31.32 and Other skilled nursing (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 Z79.899 [facility] [address] [place] [address] 23245846- 6708 Feb, Bipolar 1 disorder, depressed, moderate F31.32 and Anxiety F41.9 [facility] [address] [id number] [place] [address] 11322- 6260 Dec, Bipolar 1 disorder, depressed, moderate F31.32 and Anxiety F41.9 [facility] [address] [place] [address] 45187- 4807 Oct, [facility] [id number] [place] [address] 12408- 2227 Oct, [facility] [id number] [place] [address] 89225- 5171 May, [facility] [id number] [place] [address] 96614- 7096 May, [facility] [address] [id number] [place] [address] 22089- 6588 Mar, [facility] [id number] [place] [address] [phone] Mar, IMMUNIZATIONS No Known Immunizations SOCIAL HISTORY Never Assessed REASON FOR VISIT med refill PLAN OF CARE VITAL SIGNS MEDICATIONS Medication Instructions Dosage Frequency Start Date End Date Duration Status Lexapro 20 mg Orally Once a day 1 tablet 24h Mar, 30 days Active Lamotrigine 200 mg Orally Once a day 1 tablet 24h 30 days Active Latuda 40 mg Orally [...]
--- OUTSIDE RECORDS SUMMARY | 2018-02-03 22:00 | XMS REPORT ---
Author Author GURINDER NORTON Organization [facility] Address [address] [place] [address] Care Team Providers Care Clinical Cytogeneticist Name Role Phone GURINDER NORTON Unavailable PROBLEMS Type Condition ICD9-CM Code KPU49-MP Code Onset Dates Condition Status SNOMED Code Problem Gastroesophageal reflux disease with esophagitis K21.0 Active 459854165 Problem Polysubstance (including opioids) dependence with physiol dependence F19.20 Active 66132117 Problem History of esophageal cancer Z85.01 Active 296848655 Problem Seasonal allergies J30.2 Active 322883815 Problem Pre-diabetes R73.03 Active 745668560 Problem GERD (gastroesophageal reflux disease) K21.9 Active 319477444 Problem Borderline personality disorder F60.3 Active 69257786 Problem Pure hypercholesterolemia E78.00 Active 351441842 Problem Nephrolithiasis N20.0 Active 47383798 Problem STATE HEP A (ADULT) DX V05.3 Active 668446619 Problem Bipolar 1 disorder, depressed, moderate F31.32 Active 53146463 Problem Anxiety F41.9 Active 43639037 Problem Vitamin D insufficiency E55.9 Active 176099862 Problem Essential hypertension I10 Active 01607387 Problem Elevated serum creatinine R79.89 Active 804016796 Problem Acquired hypothyroidism E03.9 Active 544316468 ALLERGIES No Information ENCOUNTERS Encounter Location Date Diagnosis [facility] [id number] [address] Jan, [facility] [address], [place] [address] Jan, [facility] [address], [place] [address] Dec, [facility] [id number], [place] [address] Dec, Bipolar 1 disorder, depressed, moderate F31.32 and Anxiety F41.9 [facility] [id number] [place] [address] 60615- 0334 Dec, Bipolar 1 disorder, depressed, moderate F31.32 [facility] [id number] [place] [id number] Dec, Bipolar 1 disorder, depressed, moderate F31.32 and Anxiety F41.9 [place] [address] [address]- 1168 Dec, Encounter for immunization Z23 [place] [address] 014311- 3783 Nov, [place] [address] 00328- 5515 Nov, Bipolar 1 disorder, depressed, moderate F31.32 and Anxiety F41.9 [place] [address] [address]- 3419 Nov, Bipolar 1 disorder, depressed, moderate F31.32 [facility] [address] 26294- 5483 Nov, [facility] [id number] [place] [address] 99436- 3999 Nov, Bipolar 1 disorder, depressed, moderate F31.32 and Anxiety F41.9 [place] [id number] [place] [address] 71305- 1649 Oct, Bipolar 1 disorder, depressed, moderate F31.32 ; Anxiety F41.9 ; Borderline personality disorder F60.3 ; Polysubstance (including opioids ) dependence with physiol dependence F19.20 and Other custodial (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 Z79.899 [facility] [id number] [place] [address] 07202- 7277 Oct, Bipolar 1 disorder, depressed, moderate F31.32 [facility] [id number] [place] [address] [id number] Sep, Encounter for dental examination Z01.20 [place] [id number] [place] [address] 14819- 2736 Sep, Acute oral pain K13.79 [place] [id number] [place] [address] 88880- 6389 Sep, Bipolar 1 disorder, depressed, moderate F31.32 [place] [id number] [place] [address] 90257- 6424 Sep, Bipolar 1 disorder, depressed, moderate F31.32 [place] [id number] [place] [address] 06446- 0080 Sep, Bipolar 1 disorder, depressed, moderate F31.32 [place] [id number] [place] [address] 25290- 7186 Sep, Essential hypertension I10 ; Acquired hypothyroidism E03.9 ; Anxiety F41.9 ; Chronic nausea R11.0 and Irritant contact dermatitis due to plants, except food L24.7 [place] [address] [place] [address] 96085- 6196 Aug, Bipolar 1 disorder, depressed, moderate F31.32 [place] [address] [place] [address] 14800- 9764 Aug, Bipolar 1 disorder, depressed, moderate F31.32 [place] [address] [place] [address] 42344- 1382 Aug, Bipolar 1 disorder, depressed, moderate F31.32 [place] [address] [place] [address] 55046- 7674 July, Candidal dermatitis B37.2 [place] [id number] [place] [address] 83203- 1275 July, Acquired hypothyroidism E03.9 [place] [id number] [place] [address] 20397- 0196 July, Bipolar 1 disorder, depressed, moderate F31.32 [facility] [id number] [place] [address] 17596 -3987 July, Seasonal allergies J30.2 [facility] [id number] [place], [place] [address] July, Bipolar 1 disorder, depressed, moderate F31.32 [place] [id number] [place] [address] 359492- 7032 Jun, Pre-diabetes R73.03 [place] [id number] [place] [address] 43535- 0568 Jun, Bipolar 1 disorder, depressed, moderate F31.32 ; Anxiety F41.9 ; Borderline personality disorder F60.3 ; Polysubstance (including opioids ) dependence with physiol dependence F19.20 and Other specified abnormal findings of blood chemistry R79.89 [place] [id number] [place] [address] 434232- 0726 Jun, Bipolar 1 disorder, depressed, moderate F31.32 [place] [id number] [place] [address] 41633- 6660 May, Bipolar 1 disorder, depressed, moderate F31.32 [facility] [id number] [place] [address] 28947- 8087 May, Bipolar 1 disorder, depressed, moderate F31.32 [place] [id number] [place] [address] 57235- 7792 May, [place] [id number] [place] [address] 54264- 0550 May, [place] [id number] [place] [address] 73668- 1993 May, Bipolar 1 disorder, depressed, moderate F31.32 [place] [id number] [place] [address] 34383- 2441 May, Bipolar 1 disorder, depressed, moderate F31.32 [place] [address] 65418- 3599 May, Other specified abnormal findings of blood chemistry R79.[address] 32916- 4059 May, Essential hypertension I10 ; Acquired hypothyroidism E03.9 ; Gastroesophageal reflux disease with esophagitis K21.0 ; Hair loss L65.9 ; Hypokalemia, gastrointestinal losses E87.6 ; Pre-diabetes R73.03 ; Candidal dermatitis B37.2 and Pure hypercholesterolemia E78.[address] 26363- 2556 Apr, Bipolar 1 disorder, depressed, moderate F31.[address] 76227- 0148 Apr, Bipolar 1 disorder, depressed, moderate F31.[address] 44757- 1447 Apr, Bipolar 1 disorder, depressed, moderate F31.32 and Anxiety F41.9 [facility] [address] [place] [address] 09598 -9900 Mar, Encounter for immunization Z23 ; Fall, initial encounter W19.XXXA ; Rib pain on left side R07.81 and Left hip pain M25.[address] 03393- 5037 Mar, Bipolar 1 disorder, depressed, moderate F31.32 and Anxiety F41.[address] 69174- 2927 Mar, Bipolar 1 disorder, depressed, moderate F31.32 ; Anxiety F41.9 ; Borderline personality disorder F60.3 and Polysubstance (including opioids) dependence with physiol dependence F19.[address] 49400- 2034 Mar, Bipolar 1 disorder, depressed, moderate F31.32 and Anxiety F41.9 [facility] [id number] [place] [address] 15459 -0488 Feb, Irritant contact dermatitis, unspecified trigger L24.9 [facility] [id number] [place] [address] 72740- 6138 Feb, [facility] [address] 17956- 5134 Feb, [facility] [id number] [place] [address] 19824- 6944 Feb, Bipolar 1 disorder, depressed, moderate F31.32 and Anxiety F41.9 [facility] [address] 41894- 2443 Feb, Acute non-recurrent maxillary sinusitis J01.00 [place] [address] 29238- 3958 Feb, [facility] [id number] [place] [address] 73769- 9513 Feb, Bipolar 1 disorder, depressed, moderate F31.32 [facility] [id number] [place] [address] 87350- 5199 Jan, [facility] [id number] [place] [address] 24323- 2564 Jan, Bipolar 1 disorder, depressed, moderate F31.32 ; Anxiety F41.9 ; Borderline personality disorder F60.3 and Polysubstance (including opioids) dependence with physiol dependence F19.20 [facility] [id number] [place] [address] 73846- 8909 27 Jan, 2017 Bipolar 1 disorder, depressed, moderate F31.32 and Anxiety F41.9 [facility] [id number] [place] [address] 42954- 7284 Jan, Bipolar 1 disorder, depressed, moderate F31.32 ; Anxiety F41.9 ; Borderline personality disorder F60.3 and Polysubstance (including opioids) dependence with physiol dependence F19.20 [place] [id number] [place] [address] 99847- 4039 Jan, Bipolar 1 disorder, depressed, moderate F31.32 and Anxiety F41.9 [place] [id number] [place] [address] 64201- 1394 Dec, Hypokalemia, gastrointestinal losses E87.6 ; GERD ( gastroesophageal reflux disease) K21.9 and Bipolar 1 disorder, depressed, moderate F31.[address] 17227- 9225 Dec, Bipolar 1 disorder, depressed, moderate F31.32 and Anxiety F41.9 [facility] [address] [address] -[address]117 Dec, [address] 42888- 0185 Dec, [facility] [address] [address] -[address]446 Dec, Fall (on) (from) other stairs and steps, initial encounter W10.8XXA ; Laceration of left lower extremity, initial encounter S81.812A ; Contusion of right knee, initial encounter S80.01XA and Contusion of right shoulder, initial encounter S40.011A [place] [id number] [place] [address] 99979- 0037 Dec, Bipolar 1 disorder, depressed, moderate F31.32 ; Anxiety F41.9 ; Borderline personality disorder F60.3 and Polysubstance (including opioids) dependence with physiol dependence F19.[address] 61653- 4821 Dec, Bipolar 1 disorder, depressed, moderate F31.32 and Anxiety F41.9 [place] [id number] [place] [address] 19405- 0750 Dec, [id number] [place] [address] 37860- 8935 05 Dec, 2016 Hospital discharge follow-up Z09 ; Nephrolithiasis N20.0 ; Essential hypertension I10 ; Gastroesophageal reflux disease with esophagitis K21.0 and Anxiety F41.9 [place] [address] 56674- 2342 28 Nov, 2016 [facility] [address] 03570 -9676 24 Nov, 2016 Dysuria R30.0 and Acute cystitis with hematuria N30.01 [facility] [address] 759727 -3656 24 Nov, 2016 [place] [address] 77829- 8098 Nov, [place] [address] 27652- 9236 Nov, Gastroesophageal reflux disease with esophagitis K21.0 ; Hypercholesteremia E78.00 and Acquired hypothyroidism E03.9 [facility] [address] 91343 -2490 18 Nov, 2016 Left wrist pain M25.532 and Contusion of left wrist, initial encounter S60.212A [place] [address] 10905- 8485 18 Nov, 2016 Bipolar 1 disorder, depressed, moderate F31.32 ; Anxiety F41.9 ; Borderline personality disorder F60.3 and Polysubstance (including opioids) dependence with physiol dependence F19.20 [facility] [address] 56086 -2865 15 Nov, 2016 Abdominal pain R10.9 and GERD (gastroesophageal reflux disease) K21.9 [place] [address] 35814- 0687 12 Nov, 2016 Hypokalemia, gastrointestinal losses E87.6 [place] [address] [place] [address]- 9710 11 Nov, 2016 Dehydration E86.0 ; Hypokalemia, gastrointestinal losses E87.6 and Vaginal candidiasis B37.3 [place] [address] 19327- 6406 08 Nov, 2016 Abnormal weight loss R63.4 ; Diarrhea, unspecified R19.7 ; Vomiting, unspecified R11.10 ; Generalized abdominal pain R10.84 and Decreased breath sounds R06.89 [place] [address] 38052- 0841 Oct, Bipolar 1 disorder, depressed, moderate F31.32 and Anxiety F41.[address] 59937- 7353 Sep, Bipolar 1 disorder, depressed, moderate F31.32 ; Anxiety F41.9 ; Borderline personality disorder F60.3 and Polysubstance (including opioids) dependence with physiol dependence F19.20 [place] [address] 20819- 5854 Sep, Bipolar 1 disorder, depressed, moderate F31.32 and Anxiety F41.9 [place] [id number] [place] [address] 67576- 4831 Sep, Bipolar 1 disorder, depressed, moderate F31.32 [place] [id number] [place] [address] 52113- 5606 Sep, Bipolar 1 disorder, depressed, moderate F31.32 and Anxiety F41.9 [facility] [address] [place] [id number] [place] [address] 70570 -8485 Sep, Pain of toe of right foot M79.674 [place] [id number] [place] [address] 30369- 1286 Sep, [facility] [address] 89632 -7715 Sep, Cellulitis of right ankle L03.115 [place] [id number] [place] [address] 03466- 7910 Sep, Bipolar 1 disorder, depressed, moderate F31.32 and Anxiety F41.9 [place] [address] 24498- 4958 Sep, [place] [address] 65218- 9527 Sep, [place] [address] 86050- 7413 Sep, Bipolar 1 disorder, depressed, moderate F31.32 and Anxiety F41.[address] 16660- 1950 Sep, Accidental spider bite T63.301A [address] 23626- 584 Aug, Bipolar 1 disorder, depressed, moderate F31.32 ; Anxiety F41.9 ; Borderline personality disorder F60.3 and Polysubstance (including opioids) dependence with physiol dependence F19.[address] 21532- 7800 Aug, [place] [address] 41780- 8962 Aug, Bipolar 1 disorder, depressed, moderate F31.32 and Anxiety F41.9 [place] [address] 11275- 6198 Aug, Pre-diabetes R73.03 ; Acute seasonal allergic rhinitis due to pollen J30.1 ; Hypercholesteremia E78.00 and Nausea R11.0 [place] [address] 75236- 2351 Aug, [place] [address] 88655- 0634 Aug, Bipolar 1 disorder, depressed, moderate F31.32 and Anxiety F41.9 [facility] [id number] [place] [address] 31541- 2805 Aug, [facility] [address] 84981- 3871 Aug, [place] [id number] [place] [address] 76988- 9043 Aug, [facility] [address] 48963- 2934 Aug, Bipolar 1 disorder, depressed, moderate F31.32 and Anxiety F41.[address] 22450- 9601 Aug, [facility] [address] 99499 -0696 Aug, Insect bite, initial encounter W57.XXXA and Cellulitis of left lower leg L03.116 [place] [address] 87934- 7289 Aug, Bipolar 1 disorder, depressed, moderate F31.32 and Borderline personality disorder F60.[address] 85695- 5409 July, [place] [id number] [place] [address] 31749- 6983 July, [place] [id number] [place] [address] 61357- 1667 July, Encounter for routine adult health examination with abnormal findings Z00.01 ; History of esophageal cancer Z85.01 ; Bipolar 1 disorder, depressed, moderate F31.32 ; Anxiety F41.9 ; Acquired hypothyroidism E03.9 ; Essential hypertension I10 ; Gastroesophageal reflux disease with esophagitis K21.0 and Encounter for immunization Z23 [place] [id number] [place] [address] 35029- 5052 July, Bipolar 1 disorder, depressed, moderate F31.32 and Anxiety F41.9 [facility] [address] [place] [address] 09133- 4047 July, [facility] [id number] [place] [address]- 9984 July, Bipolar 1 disorder, depressed, moderate F31.32 and Anxiety F41.9 [facility] [id number] [place] [address] 34458- 4096 July, Bipolar 1 disorder, depressed, moderate F31.32 [facility] [id number] [place] [address] 32195- 1857 July, Bipolar 1 disorder, depressed, moderate F31.32 and Anxiety F41.9 [place] [id number] [place] [address] 59504- 6593 Jun, Bipolar 1 disorder, depressed, moderate F31.32 [place] [id number] [place] [address] 79856- 4315 Jun, Bipolar 1 disorder, depressed, moderate F31.32 and Borderline personality disorder F60.3 [place] [id number] [place] [address] 20633- 9988 Jun, Bipolar 1 disorder, depressed, moderate F31.32 [facility] [id number] [place] [address] 96309- 0683 Jun, Bipolar 1 disorder, depressed, moderate F31.32 [facility] [id number] [place] [address] 33039- 5705 May, Bipolar 1 disorder, depressed, moderate F31.32 and Anxiety F41.9 [facility] [id number] [place] [address] 81346- 9568 May, Bipolar 1 disorder, depressed, moderate F31.32 and Anxiety F41.9 [facility] [id number] [place] [address] 08756- 7559 May, Bipolar 1 disorder, depressed, moderate F31.32 and Anxiety F41.9 [facility] [id number] [address]- 6581 May, Bipolar 1 disorder, depressed, moderate F31.32 and Borderline personality disorder F60.3 [facility] [address], [place] [address]- 3986 May, [facility] [id number] [place] [address] 79834- 7423 May, Bipolar 1 disorder, depressed, moderate F31.32 and Anxiety F41.9 [facility] [address] [place] [address] 84549- 8077 May, Bipolar 1 disorder, depressed, moderate F31.32 and Anxiety F41.9 [facility] [address] [place] [address] 55230- 3982 May, [facility] [id number] [place] [address] 46856- 3616 May, Bipolar 1 disorder, depressed, moderate F31.32 [facility] [address] [place] [address] 74019- 8180 May, Bipolar 1 disorder, depressed, moderate F31.32 and Generalized anxiety disorder F41.1 [facility] [address] [address]- 8257 Apr, Bipolar 1 disorder, depressed, moderate F31.32 and Anxiety F41.9 [facility] [address] [address]- 5758 Apr, [facility] [address] [place] [address] 43830- 9175 Apr, Bipolar 1 disorder, depressed, moderate F31.32 and Anxiety F41.9 [facility] [address] [address]- 9411 Apr, Bipolar 1 disorder, depressed, moderate F31.32 and Anxiety F41.9 [facility] [id number] [place] [address] 87475- 1497 Apr, Bipolar affective disorder, depressed, severe F31.4 and Generalized anxiety disorder F41.1 [place] [id number] [place] [address] 91848- 0430 Mar, Bipolar 1 disorder, depressed, moderate F31.32 and Anxiety F41.9 [place] [id number] [place] [address] 99064- 5288 Mar, Bipolar 1 disorder, depressed, moderate F31.32 and Anxiety F41.9 [place] [id number] [place] [address] 11189- 1225 Mar, Bipolar 1 disorder, mixed, moderate F31.62 [place] [id number] [place] [address] 73546- 3547 Mar, [place] [id number] [place] [address] 11686- 0582 Mar, Bipolar 1 disorder, mixed, moderate F31.62 ; Generalized anxiety disorder F41.1 and 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 [place] [id number] [place] [address] 29128- 0304 Feb, Bipolar 1 disorder, depressed, moderate F31.32 and Anxiety F41.9 [place] [address] [place] [address] 67658- 0945 Feb, Bipolar 1 disorder, depressed, moderate F31.32 and Other custodial (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 Z79.899 [place] [address] [place] [address] 62026- 3859 Feb, [place] [id number] [place] [address] 34039- 3246 Feb, Bipolar 1 disorder, depressed, moderate F31.32 and Anxiety F41.9 [place] [id number] [place] [address] 47454- 5278 Feb, Bipolar 1 disorder, depressed, moderate F31.32 and 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 [facility] [address] [address]- 2562 Feb, Bipolar 1 disorder, depressed, moderate F31.32 and Anxiety F41.9 [facility] [address] [address]- 7183 Dec, Bipolar 1 disorder, depressed, moderate F31.32 and Anxiety F41.9 [facility] [address] [address]- 0622 Oct, [facility] [id number] [place] [address] 22117- 1114 Oct, [facility] [id number] [place] [address] 98486- 3406 May, [facility] [id number] [place] [address] 22291- 6583 May, [facility] [id number] [place] [address] 95758- 4842 Mar, [facility] [address] [phone] Mar, IMMUNIZATIONS No Known Immunizations SOCIAL HISTORY Never Assessed REASON FOR VISIT Follow-up Depression PLAN OF CARE Activity Details Follow Up 1 Week Reason: Follow-up VITAL SIGNS MEDICATIONS Unknown Medications RESULTS No Results PROCEDURES Procedure Date Ordered Result Body Site [facility] VISIT MENTAL HEALTH ESTAB PT Dec 07, 2017 Psychotherapy, patient &/family, 30 minutes, established patient Dec 07, 2017 INSTRUCTIONS MEDICATIONS ADMINISTERED No Known Medications [...] Cancer Head and Neck 2005 Hospitalization History [facility] Psychiatric Admission 2016
--- OUTSIDE RECORDS SUMMARY | 2018-02-03 22:01 | XMS REPORT ---
Author Author DICK Booth Organization [facility] Address [address] [place] [address] Care Team Providers Care Inspector Filter Tip Name Role Phone Leobardo DICK Unavailable PROBLEMS Type Condition ICD9-CM Code IJW28-WO Code Onset Dates Condition Status SNOMED Code Problem Gastroesophageal reflux disease with esophagitis K21.0 Active 300572103 Problem Polysubstance (including opioids) dependence with physiol dependence F19.20 Active 64110706 Problem History of esophageal cancer Z85.01 Active 268279922 Problem Seasonal allergies J30.2 Active 963814902 Problem Pre-diabetes R73.03 Active 036345457 Problem GERD (gastroesophageal reflux disease) K21.9 Active 911589374 Problem Borderline personality disorder F60.3 Active 86252154 Problem Pure hypercholesterolemia E78.00 Active 011470743 Problem Nephrolithiasis N20.0 Active 25314525 Problem STATE HEP A (ADULT) DX V05.3 Active 974041926 Problem Bipolar 1 disorder, depressed, moderate F31.32 Active 16370606 Problem Anxiety F41.9 Active 82608678 Problem Vitamin D insufficiency E55.9 Active 459035499 Problem Essential hypertension I10 Active 12581405 Problem Elevated serum creatinine R79.89 Active 537454399 Problem Acquired hypothyroidism E03.9 Active 131283418 ALLERGIES No Information ENCOUNTERS Encounter Location Date Diagnosis [facility] [address] [facility] [id number] [address] Jan, [facility] [address] [address] Jan, [facility] [address] [id number] [address] Dec, [facility] [address] [id number] [address] Dec, [facility] [id number] [place] [address] 10174- 7435 Dec, Bipolar 1 disorder, depressed, moderate F31.32 [facility] [address] [place] [address] [id number] Dec, Bipolar 1 disorder, depressed, moderate F31.32 and Anxiety F41.9 [facility] [address] [address]- [address]99 Dec, Encounter for immunization Z23 [facility] [address] [address] Nov, [facility] [address] [address]- 2339 Nov, Bipolar 1 disorder, depressed, moderate F31.32 and Anxiety F41.9 [facility] [address] 67289- 8227 Nov, Bipolar 1 disorder, depressed, moderate F31.32 [facility] [id number] [place] [address] 82966- 3603 Nov, [facility] [address] 31619- 4195 Nov, Bipolar 1 disorder, depressed, moderate F31.32 and Anxiety F41.9 [facility] [id number] [place] [address] 74150- 4108 Oct, Bipolar 1 disorder, depressed, moderate F31.32 ; Anxiety F41.9 ; Borderline personality disorder F60.3 ; Polysubstance (including opioids ) dependence with physiol dependence F19.20 and 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 [facility] [id number] [place] [address] 15579- 2856 Oct, Bipolar 1 disorder, depressed, moderate F31.32 [facility] [id number] [place] [address] [id number] Sep, Encounter for dental examination Z01.20 [place] [id number] [place] [address] 97182- 3149 Sep, Acute oral pain K13.79 [place] [id number] [place] [address] 12882- 6115 Sep, Bipolar 1 disorder, depressed, moderate F31.32 [place] [address] 85153- 9280 Sep, Bipolar 1 disorder, depressed, moderate F31.32 [place] [id number] [place] [address] 87150- 5892 Sep, Bipolar 1 disorder, depressed, moderate F31.32 [place] [address] 28621- 6791 Sep, Essential hypertension I10 ; Acquired hypothyroidism E03.9 ; Anxiety F41.9 ; Chronic nausea R11.0 and Irritant contact dermatitis due to plants, except food L24.7 [place] [id number] [place] [address] 04950- 7354 Aug, Bipolar 1 disorder, depressed, moderate F31.32 [place] [id number] [place] [address] 30373- 1523 Aug, Bipolar 1 disorder, depressed, moderate F31.32 [place] [id number] [place] [address] 05757- 0950 Aug, Bipolar 1 disorder, depressed, moderate F31.32 [place] [id number] [place] [address] 08674- 0584 July, Candidal dermatitis B37.2 [place] [address] 07673- 9851 July, Acquired hypothyroidism E03.9 [place] [id number] [place] [address] 95806- 5381 July, Bipolar 1 disorder, depressed, moderate F31.32 [facility] [id number] [place] [address] 82037 -2439 July, Seasonal allergies J30.2 [facility] [address] 15793- 3180 July, Bipolar 1 disorder, depressed, moderate F31.32 [place] [id number] [place] [address] 91626- 4377 Jun, Pre-diabetes R73.03 [place] [id number] [place] [address] 62411- 5865 Jun, Bipolar 1 disorder, depressed, moderate F31.32 ; Anxiety F41.9 ; Borderline personality disorder F60.3 ; Polysubstance (including opioids ) dependence with physiol dependence F19.20 and Other specified abnormal findings of blood chemistry R79.89 [place] [id number] [place] [address] 50276- 0584 Jun, Bipolar 1 disorder, depressed, moderate F31.32 [place] [id number] [place] [address] 87146- 0170 May, Bipolar 1 disorder, depressed, moderate F31.32 [place] [id number] [place] [address] 84666- 3170 May, Bipolar 1 disorder, depressed, moderate F31.32 [place] [id number] [place] [address] 56251- 1025 May, [place] [id number] [place] [address] 11204- 9170 May, [place] [id number] [place] [address] 78356- 8294 May, Bipolar 1 disorder, depressed, moderate F31.32 [place] [id number] [place] [address] 54330- 6894 May, Bipolar 1 disorder, depressed, moderate F31.32 [place] [id number] [place] [id number] May, Other specified abnormal findings of blood chemistry R79.[address] 061 May, Essential hypertension I10 ; Acquired hypothyroidism E03.9 ; Gastroesophageal reflux disease with esophagitis K21.0 ; Hair loss L65.9 ; Hypokalemia, gastrointestinal losses E87.6 ; Pre-diabetes R73.03 ; Candidal dermatitis B37.2 and Pure hypercholesterolemia E78.00 [place] [address] 038 Apr, Bipolar 1 disorder, depressed, moderate F31.[address] 690 Apr, Bipolar 1 disorder, depressed, moderate F31.32 [place] [id number] 815 Apr, Bipolar 1 disorder, depressed, moderate F31.32 and Anxiety F41.9 [facility] [address] [address] Mar, Encounter for immunization Z23 ; Fall, initial encounter W19.XXXA ; Rib pain on left side R07.81 and Left hip pain M25.[address] 78[address]- 0249 Mar, Bipolar 1 disorder, depressed, moderate F31.32 and Anxiety F41.9 [place] [address] 97675- 7204 Mar, Bipolar 1 disorder, depressed, moderate F31.32 ; Anxiety F41.9 ; Borderline personality disorder F60.3 and Polysubstance (including opioids) dependence with physiol dependence F19.20 [place] [address] 51064- 6414 Mar, Bipolar 1 disorder, depressed, moderate F31.32 and Anxiety F41.9 [facility] [address], [place] [address] Feb, Irritant contact dermatitis, unspecified trigger L24.9 [facility] [id number] [place] [address] 88258- 4593 Feb, [facility] [id number] [place] [address] 16374- 4635 Feb, [facility] [id number] [place] [address] 70345- 0444 Feb, Bipolar 1 disorder, depressed, moderate F31.32 and Anxiety F41.9 [facility] [id number] [place] [address] 177911- 0848 Feb, Acute non-recurrent maxillary sinusitis J01.00 [facility] [id number] [place] [address] 85026- 6917 Feb, [facility] [id number] [place] [address] 16458- 0546 Feb, Bipolar 1 disorder, depressed, moderate F31.32 [facility] [id number] [place] [address] 34082- 5666 Jan, [facility] [address] [place] [address] 01012- 4980 Jan, Bipolar 1 disorder, depressed, moderate F31.32 ; Anxiety F41.9 ; Borderline personality disorder F60.3 and Polysubstance (including opioids) dependence with physiol dependence F19.20 [facility] [address] [place] [address] 42716- 0430 27 Jan, 2017 Bipolar 1 disorder, depressed, moderate F31.32 and Anxiety F41.9 [facility] [address] [place] [address] 06249- 3747 20 Jan, 2017 Bipolar 1 disorder, depressed, moderate F31.32 ; Anxiety F41.9 ; Borderline personality disorder F60.3 and Polysubstance (including opioids) dependence with physiol dependence F19.20 [place] [id number] [place] [address] 74039- 0945 Jan, Bipolar 1 disorder, depressed, moderate F31.32 and Anxiety F41.9 [place] [id number] [place] [address] 37991- 4237 Dec, Hypokalemia, gastrointestinal losses E87.6 ; GERD ( gastroesophageal reflux disease) K21.9 and Bipolar 1 disorder, depressed, moderate F31.32 [place] [id number] [place] [address] 79452- 8483 Dec, Bipolar 1 disorder, depressed, moderate F31.32 and Anxiety F41.9 [facility] [place] [address] 32350 -5147 Dec, [place] [id number] [place] [address] 25179- 8158 Dec, [facility] [place] [id number] [place] [address] 92042 -2396 Dec, Fall (on) (from) other stairs and steps, initial encounter W10.8XXA ; Laceration of left lower extremity, initial encounter S81.812A ; Contusion of right knee, initial encounter S80.01XA and Contusion of right shoulder, initial encounter S40.011A [place] [id number] [place] [address] 48683- 7416 Dec, Bipolar 1 disorder, depressed, moderate F31.32 ; Anxiety F41.9 ; Borderline personality disorder F60.3 and Polysubstance (including opioids) dependence with physiol dependence F19.20 [place] [id number] [place] [address] 57630- 0583 Dec, Bipolar 1 disorder, depressed, moderate F31.32 and Anxiety F41.9 [place] [id number] [place] [address] 12396- 1857 Dec, [place] [address] 27651- 1461 05 Dec, 2016 Hospital discharge follow-up Z09 ; Nephrolithiasis N20.0 ; Essential hypertension I10 ; Gastroesophageal reflux disease with esophagitis K21.0 and Anxiety F41.9 [facility] [id number] [place] [address] 71006- 5555 28 Nov, 2016 [facility] [address] 30530 -9287 24 Nov, 2016 Dysuria R30.0 and Acute cystitis with hematuria N30.01 [facility] [address] 19776 -5614 24 Nov, 2016 [facility] [address] 94305- 9593 19 Nov, 2016 [facility] [address] 78930- 2782 Nov, Gastroesophageal reflux disease with esophagitis K21.0 ; Hypercholesteremia E78.00 and Acquired hypothyroidism E03.9 [facility] [address] 24598 -8015 18 Nov, 2016 Left wrist pain M25.532 and Contusion of left wrist, initial encounter S60.212A [facility] [address] 85386- 8439 18 Nov, 2016 Bipolar 1 disorder, depressed, moderate F31.32 ; Anxiety F41.9 ; Borderline personality disorder F60.3 and Polysubstance (including opioids) dependence with physiol dependence F19.20 [facility] [address] 81473 -7362 15 Nov, 2016 Abdominal pain R10.9 and GERD (gastroesophageal reflux disease) K21.9 [facility] [address] 22764- 1188 12 Nov, 2016 Hypokalemia, gastrointestinal losses E87.6 [place] [address] 70870- 5586 Nov, Dehydration E86.0 ; Hypokalemia, gastrointestinal losses E87.6 and Vaginal candidiasis B37.3 [place] [address]- 3271 08 Nov, 2016 Abnormal weight loss R63.4 ; Diarrhea, unspecified R19.7 ; Vomiting, unspecified R11.10 ; Generalized abdominal pain R10.84 and Decreased breath sounds R06.89 [id number]- 1827 Oct, Bipolar 1 disorder, depressed, moderate F31.32 and Anxiety F41.9 [place] [address]- 4756 Sep, Bipolar 1 disorder, depressed, moderate F31.32 ; Anxiety F41.9 ; Borderline personality disorder F60.3 and Polysubstance (including opioids) dependence with physiol dependence F19.[address] 21644- 0134 Sep, Bipolar 1 disorder, depressed, moderate F31.32 and Anxiety F41.[address] 715152- 6300 Sep, Bipolar 1 disorder, depressed, moderate F31.[address] 87942- 9315 Sep, Bipolar 1 disorder, depressed, moderate F31.32 and Anxiety F41.9 [facility] [address] [place] [address] 08943 -4816 Sep, Pain of toe of right foot M79.[address] 25833- 8295 Sep, [facility] [address] [place] [address] 93265 -9934 15 Sep, 2016 Cellulitis of right ankle L03.115 [place] [address] [place] [address]- 4123 Sep, Bipolar 1 disorder, depressed, moderate F31.32 and Anxiety F41.9 [place] [address] 51748- 3112 Sep, [facility] [address] 70450- 3929 Sep, [place] [address] 06553- 1904 Sep, Bipolar 1 disorder, depressed, moderate F31.32 and Anxiety F41.9 [place] [address] 30612- 5976 Sep, Accidental spider bite T63.301A [place] [address] 97492- 0949 Aug, Bipolar 1 disorder, depressed, moderate F31.32 ; Anxiety F41.9 ; Borderline personality disorder F60.3 and Polysubstance (including opioids) dependence with physiol dependence F19.20 [place] [address] 51500- 6945 Aug, [place] [address] 10774- 5888 Aug, Bipolar 1 disorder, depressed, moderate F31.32 and Anxiety F41.9 [place] [address] 20369- 7729 Aug, Pre-diabetes R73.03 ; Acute seasonal allergic rhinitis due to pollen J30.1 ; Hypercholesteremia E78.00 and Nausea R11.0 [place] [address] 73125- 6606 Aug, [place] [address] 91229- 8902 Aug, Bipolar 1 disorder, depressed, moderate F31.32 and Anxiety F41.9 [place] [id number] [place] [address] 24530- 8019 08 Aug, 2016 [facility] [id number] [place] [address] 82226- 6666 Aug, [facility] [id number] [place] [address] 08464- 9580 Aug, [facility] [address] 45178- 9290 Aug, Bipolar 1 disorder, depressed, moderate F31.32 and Anxiety F41.9 [place] [id number] [place] [address] 98559- 7333 Aug, [facility] [id number] [place] [address] 25623 -1270 Aug, Insect bite, initial encounter W57.XXXA and Cellulitis of left lower leg L03.116 [place] [id number] [place] [address] 79339- 5048 Aug, Bipolar 1 disorder, depressed, moderate F31.32 and Borderline personality disorder F60.3 [place] [id number] [place] [address] 12141- 2167 July, [place] [id number] [place] [address] 58722- 9732 July, [place] [id number] [place] [address] 91784- 6039 July, Encounter for routine adult health examination with abnormal findings Z00.01 ; History of esophageal cancer Z85.01 ; Bipolar 1 disorder, depressed, moderate F31.32 ; Anxiety F41.9 ; Acquired hypothyroidism E03.9 ; Essential hypertension I10 ; Gastroesophageal reflux disease with esophagitis K21.0 and Encounter for immunization Z23 [place] [id number] [place] [address] 04308- 9772 18 Jul, 2016 Bipolar 1 disorder, depressed, moderate F31.32 and Anxiety F41.9 [place] [address] 9317 July, [facility] [id number] [place] [address] 99711- 7210 July, Bipolar 1 disorder, depressed, moderate F31.32 and Anxiety F41.9 [facility] [id number] [place] [address] 06967- 1406 July, Bipolar 1 disorder, depressed, moderate F31.32 [facility] [id number] [place] [address] 04937- 4878 July, Bipolar 1 disorder, depressed, moderate F31.32 and Anxiety F41.9 [facility] [id number] [place] [address] 44543- 5865 Jun, Bipolar 1 disorder, depressed, moderate F31.32 [facility] [id number] [place] [address] 53154- 2674 Jun, Bipolar 1 disorder, depressed, moderate F31.32 and Borderline personality disorder F60.3 [facility] [id number] [place] [address] 18221- 7299 Jun, Bipolar 1 disorder, depressed, moderate F31.32 [facility] [address] [place] [address] 01044- 3913 Jun, Bipolar 1 disorder, depressed, moderate F31.32 [facility] [address] [place] [address] 33276- 2631 May, Bipolar 1 disorder, depressed, moderate F31.32 and Anxiety F41.9 [facility] [address] [place] [address] 53853- 7433 May, Bipolar 1 disorder, depressed, moderate F31.32 and Anxiety F41.9 [facility] [address] [place] [address] 20754- 8874 May, Bipolar 1 disorder, depressed, moderate F31.32 and Anxiety F41.9 [facility] [id number] [place] [address] 15466- 6351 May, Bipolar 1 disorder, depressed, moderate F31.32 and Borderline personality disorder F60.3 [facility] [id number] [place] [address] 69887- 5858 May, [facility] [id number] [place] [address] 10317- 6440 May, Bipolar 1 disorder, depressed, moderate F31.32 and Anxiety F41.9 [facility] [id number] [place] [address] 17029- 9251 May, Bipolar 1 disorder, depressed, moderate F31.32 and Anxiety F41.9 [place] [id number] [place] [address] 74265- 1150 May, [place] [id number] [place] [address] 88890- 8340 May, Bipolar 1 disorder, depressed, moderate F31.32 [place] [id number] [place] [address] 52179- 8249 May, Bipolar 1 disorder, depressed, moderate F31.32 and Generalized anxiety disorder F41.1 [place] [id number] [place] [address] 79773- 4395 Apr, Bipolar 1 disorder, depressed, moderate F31.32 and Anxiety F41.9 [place] [id number] [place] [address] 79772- 4774 Apr, [facility] [id number] [place] [address] 79545- 8210 Apr, Bipolar 1 disorder, depressed, moderate F31.32 and Anxiety F41.9 [facility] [address] [place] [address] 55680- 3315 09 Apr, 2016 Bipolar 1 disorder, depressed, moderate F31.32 and Anxiety F41.9 [facility] [address] [id number] [place] [address] 78703- 3198 Apr, Bipolar affective disorder, depressed, severe F31.4 and Generalized anxiety disorder F41.1 [place] [address] [place] [id number] [place] [address]- 0404 Mar, Bipolar 1 disorder, depressed, moderate F31.32 and Anxiety F41.9 [facility] [address] [place] [id number] [place] [address] 13206- 9189 Mar, Bipolar 1 disorder, depressed, moderate F31.32 and Anxiety F41.9 [place] [address] [place] [place] [id number] [place] [address] 38982- 1740 Mar, Bipolar 1 disorder, mixed, moderate F31.62 [place] [address] [place] [place] [id number] [place] [address] 49139- 3980 Mar, [place] [address] 75705- 4173 Mar, Bipolar 1 disorder, mixed, moderate F31.62 ; Generalized anxiety disorder F41.1 and Other long-term (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 Z79.899 [place] [address] [place] [id number] [place] [address] 38708- 1855 Feb, Bipolar 1 disorder, depressed, moderate F31.32 and Anxiety F41.9 [facility] [address] [place] [place] [id number] [place] [address] 80808- 5192 Feb, Bipolar 1 disorder, depressed, moderate F31.32 and 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 [facility] [address] [place] [id number] [place] [address] 63808- 1023 Feb, [facility] [address] [place] [id number] [place] [address] 47502- 8695 Feb, Bipolar 1 disorder, depressed, moderate F31.32 and Anxiety F41.9 [facility] [address] [id number] [place] [address] 14960- 5711 Feb, Bipolar 1 disorder, depressed, moderate F31.32 and Other long-term (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 Z79.899 [facility] [address] [address]- 8356 Feb, Bipolar 1 disorder, depressed, moderate F31.32 and Anxiety F41.9 [facility] [address] [address]- [address] Dec, Bipolar 1 disorder, depressed, moderate F31.32 and Anxiety F41.9 [facility] [id number] [address] Oct, [facility] [id number] [place] [address] [phone] Oct, [facility] [id number] [place] [address] [phone] May, [place] [id number] [place] [address] [phone] May, [facility] [id number] [place] [address] [phone] Mar, [address] [id number] [place] [address] [phone] Mar, IMMUNIZATIONS Vaccine Route Administration Date Status FLULAVAL QUAD 0.5ML (6 MO & UP) 2017 IM Intramuscular Dec 04, 2017 Administered SOCIAL HISTORY Never Assessed REASON FOR VISIT Immunization(s)- Reed Bills PLAN OF CARE VITAL SIGNS MEDICATIONS Unknown Medications RESULTS No Results PROCEDURES Procedure Date Ordered Result Body Site FLULAVAL QUAD 0.5ML (6 MO AND UP) 2017Dec 04, 2017 SINGLE IMMUNIZATION ADMIN Dec 04, 2017 INSTRUCTIONS MEDICATIONS ADMINISTERED No Known Medications [...] Cancer Head and Neck 2004 Hospitalization History [facility] Psychiatric Admission 2016
--- OUTSIDE RECORDS SUMMARY | 2018-02-03 22:01 | XMS REPORT ---
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
--- OUTSIDE RECORDS SUMMARY | 2018-02-03 22:02 | XMS REPORT ---
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 Name Role Phone GURINDER NORTON Unavailable PROBLEMS Type Condition ICD9-CM Code [id number] Code Onset Dates Condition Status SNOMED Code Problem Gastroesophageal reflux disease with esophagitis K21.0 Active 089076876 Problem Polysubstance (including opioids) dependence with physiol dependence F19.20 Active 68811547 Problem History of esophageal cancer Z85.01 Active 003126337 Problem Seasonal allergies J30.2 Active 536436707 Problem Pre-diabetes R73.03 Active 685149646 Problem GERD (gastroesophageal reflux disease) K21.9 Active 037074006 Problem Borderline personality disorder F60.3 Active 13931504 Problem Pure hypercholesterolemia E78.00 Active 029285589 Problem Nephrolithiasis N20.0 Active 57497684 Problem STATE HEP A (ADULT) DX V05.3 Active 296141844 Problem Bipolar 1 disorder, depressed, moderate F31.32 Active 25758376 Problem Anxiety F41.9 Active 42224369 Problem Vitamin D insufficiency E55.9 Active 227794407 Problem Essential hypertension I10 Active 24903765 Problem Elevated serum creatinine R79.89 Active 512433280 Problem Acquired hypothyroidism E03.9 Active 539796227 ALLERGIES No Information ENCOUNTERS Encounter Location Date Diagnosis [facility] [id number] [address] Jan, [facility] [id number] [place] [address] 31694- 0793 Dec, [facility] [address] [address] Dec, [facility] [id number] [address] Dec, [facility] [address] [place] [address] 72139- 7627 Dec, Encounter for immunization Z23 [facility] [id number] [place] [address] 26049- 9529 Nov, [facility] [id number] [place] [address] 35453- 1962 17 Nov, 2017 Bipolar 1 disorder, depressed, moderate F31.32 and Anxiety F41.9 [place] [id number] [place] [address] 35240- 3961 Nov, Bipolar 1 disorder, depressed, moderate F31.32 [place] [id number] [place] [address] 02837- 8954 Nov, [place] [id number] [place] [address] 92909- 7976 Nov, Bipolar 1 disorder, depressed, moderate F31.32 and Anxiety F41.9 [place] [id number] [place] [address] 67858- 8087 Oct, Bipolar 1 disorder, depressed, moderate F31.32 ; Anxiety F41.9 ; Borderline personality disorder F60.3 ; Polysubstance (including opioids ) dependence with physiol dependence F19.20 and Other snf (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 Z79.899 [place] [id number] [place] [address] 45996- 5298 Oct, Bipolar 1 disorder, depressed, moderate F31.32 [facility] [address] [place] [address] [id number] Sep, Encounter for dental examination Z01.20 [facility] [id number] [place] [address] 25421- 5064 Sep, Acute oral pain K13.79 [facility] [id number] [place] [address] 06100- 1960 Sep, Bipolar 1 disorder, depressed, moderate F31.32 [place] [address] 15169- 7207 Sep, Bipolar 1 disorder, depressed, moderate F31.32 [place] [address] 71533- 4741 Sep, Bipolar 1 disorder, depressed, moderate F31.32 [place] [address] 84327- 9087 Sep, Essential hypertension I10 ; Acquired hypothyroidism E03.9 ; Anxiety F41.9 ; Chronic nausea R11.0 and Irritant contact dermatitis due to plants, except food L24.7 [place] [address] 69179- 1877 Aug, Bipolar 1 disorder, depressed, moderate F31.32 [place] [address] 70357- 1344 Aug, Bipolar 1 disorder, depressed, moderate F31.32 [place] [address] 90452- 5922 Aug, Bipolar 1 disorder, depressed, moderate F31.32 [place] [address] 65064- 3002 July, Candidal dermatitis B37.2 [place] [address] 29873- 0098 July, Acquired hypothyroidism E03.9 [place] [address] 72395- 0527 July, Bipolar 1 disorder, depressed, moderate F31.32 [facility] [address] 25914 -4384 July, Seasonal allergies J30.2 [place] [address] 75304- 8328 July, Bipolar 1 disorder, depressed, moderate F31.32 [place] [address] 02076- 4181 Jun, Pre-diabetes R73.03 [place] [id number] [place] [id number] Jun, Bipolar 1 disorder, depressed, moderate F31.32 ; Anxiety F41.9 ; Borderline personality disorder F60.3 ; Polysubstance (including opioids ) dependence with physiol dependence F19.20 and Other specified abnormal findings of blood chemistry R79.89 [place] [id number] [place] [id number] 6100 Jun, Bipolar 1 disorder, depressed, moderate F31.32 [place] [address] 963266- 9670 May, Bipolar 1 disorder, depressed, moderate F31.32 [place] [address] 963267- 9142 May, Bipolar 1 disorder, depressed, moderate F31.32 [place] [id number] [place] [address] 71121- 1743 May, [place] [id number] [place] [address] 04868- 2129 May, [place] [id number] [place] [address] 66948- 9821 May, Bipolar 1 disorder, depressed, moderate F31.32 [place] [id number] [place] [address] 55097- 8180 May, Bipolar 1 disorder, depressed, moderate F31.32 [place] [id number] [place] [address] 01671- 8809 May, Other specified abnormal findings of blood chemistry R79.89 [place] [id number] [place] [id number] 08 May, 2017 Essential hypertension I10 ; Acquired hypothyroidism E03.9 ; Gastroesophageal reflux disease with esophagitis K21.0 ; Hair loss L65.9 ; Hypokalemia, gastrointestinal losses E87.6 ; Pre-diabetes R73.03 ; Candidal dermatitis B37.2 and Pure hypercholesterolemia E78.00 [place] [address] 25213- 5616 Apr, Bipolar 1 disorder, depressed, moderate F31.32 [place] [address] 22981- 6734 Apr, Bipolar 1 disorder, depressed, moderate F31.32 [place] [address] 51523- 4236 Apr, Bipolar 1 disorder, depressed, moderate F31.32 and Anxiety F41.9 [facility] [address] [address]13 Mar, Encounter for immunization Z23 ; Fall, initial encounter W19.XXXA ; Rib pain on left side R07.81 and Left hip pain M25.552 [place] [address] 31781- 0093 Mar, Bipolar 1 disorder, depressed, moderate F31.32 and Anxiety F41.[address] 07026- 1806 Mar, Bipolar 1 disorder, depressed, moderate F31.32 ; Anxiety F41.9 ; Borderline personality disorder F60.3 and Polysubstance (including opioids) dependence with physiol dependence F19.20 [place] [address] 39595- 3050 Mar, Bipolar 1 disorder, depressed, moderate F31.32 and Anxiety F41.9 [facility] [address] 43010 -6828 Feb, Irritant contact dermatitis, unspecified trigger L24.9 [place] [address] 42797- 7400 Feb, [place] [address] 67070- 0230 Feb, [place] [id number] [place] [address] Feb, Bipolar 1 disorder, depressed, moderate F31.32 and Anxiety F41.9 [place] [id number] [place] [address] Feb, Acute non-recurrent maxillary sinusitis J01.00 [place] [address] 963266- 1297 Feb, [place] [id number] [place] [address] Feb, Bipolar 1 disorder, depressed, moderate F31.32 [place] [address] 963263- 1156 Jan, [place] [address]11896- 1006 Jan, Bipolar 1 disorder, depressed, moderate F31.32 ; Anxiety F41.9 ; Borderline personality disorder F60.3 and Polysubstance (including opioids) dependence with physiol dependence F19.20 [place] [id number] [place] [address] 17349- 1790 27 Jan, 2017 Bipolar 1 disorder, depressed, moderate F31.32 and Anxiety F41.9 [place] [id number] [place] [address] 98807- 5695 Jan, Bipolar 1 disorder, depressed, moderate F31.32 ; Anxiety F41.9 ; Borderline personality disorder F60.3 and Polysubstance (including opioids) dependence with physiol dependence F19.20 [place] [address] [id number]- 6545 13 Jan, 2017 Bipolar 1 disorder, depressed, moderate F31.32 and Anxiety F41.9 [place] [id number] [place] [address] 98799- 3272 Dec, Hypokalemia, gastrointestinal losses E87.6 ; GERD ( gastroesophageal reflux disease) K21.9 and Bipolar 1 disorder, depressed, moderate F31.32 [place] [id number] [place] [address] 14672- 2209 Dec, Bipolar 1 disorder, depressed, moderate F31.32 and Anxiety F41.9 [facility] [place] [id number] [place] [address] 41593 -8133 Dec, [place] [address] 02693- 7915 Dec, [facility] [address] 51768 -9223 Dec, Fall (on) (from) other stairs and steps, initial encounter W10.8XXA ; Laceration of left lower extremity, initial encounter S81.812A ; Contusion of right knee, initial encounter S80.01XA and Contusion of right shoulder, initial encounter S40.011A [place] [address] 44364- 2107 Dec, Bipolar 1 disorder, depressed, moderate F31.32 ; Anxiety F41.9 ; Borderline personality disorder F60.3 and Polysubstance (including opioids) dependence with physiol dependence F19.20 [id number] [place] [address] 06242- 9503 Dec, Bipolar 1 disorder, depressed, moderate F31.32 and Anxiety F41.9 [place] [id number] [place] [address] 67898- 0751 Dec, [id number] [place] [address] 57652- 4078 Dec, Hospital discharge follow-up Z09 ; Nephrolithiasis N20.0 ; Essential hypertension I10 ; Gastroesophageal reflux disease with esophagitis K21.0 and Anxiety F41.9 [place] [id number] [place] [address] 29775- 6165 Nov, [facility] [place] [address] [place] [address] 24 Nov, 2016 Dysuria R30.0 and Acute cystitis with hematuria N30.01 [facility] [address] [id number] -6593 24 Nov, 2016 [facility] [address] 26467- 1714 19 Nov, 2016 [place] [address] 55020- 6421 19 Nov, 2016 Gastroesophageal reflux disease with esophagitis K21.0 ; Hypercholesteremia E78.00 and Acquired hypothyroidism E03.9 [facility] [address] 64433 -6150 18 Nov, 2016 Left wrist pain M25.532 and Contusion of left wrist, initial encounter S60.212A [place] [address] 62466- 8913 18 Nov, 2016 Bipolar 1 disorder, depressed, moderate F31.32 ; Anxiety F41.9 ; Borderline personality disorder F60.3 and Polysubstance (including opioids) dependence with physiol dependence F19.20 [facility] [address] 30424 -8928 15 Nov, 2016 Abdominal pain R10.9 and GERD (gastroesophageal reflux disease) K21.9 [place] [address] 52420- 7921 12 Nov, 2016 Hypokalemia, gastrointestinal losses E87.6 [place] [address] 00516- 4826 11 Nov, 2016 Dehydration E86.0 ; Hypokalemia, gastrointestinal losses E87.6 and Vaginal candidiasis B37.3 [place] [address] [id number]- 4797 08 Nov, 2016 Abnormal weight loss R63.4 ; Diarrhea, unspecified R19.7 ; Vomiting, unspecified R11.10 ; Generalized abdominal pain R10.84 and Decreased breath sounds R06.89 [place] [id number] [place] [address] 48466- 0215 Oct, Bipolar 1 disorder, depressed, moderate F31.32 and Anxiety F41.9 [place] [id number] [place] [address] 15302- 1865 Sep, Bipolar 1 disorder, depressed, moderate F31.32 ; Anxiety F41.9 ; Borderline personality disorder F60.3 and Polysubstance (including opioids) dependence with physiol dependence F19.20 [place] [address] 48429- 7801 Sep, Bipolar 1 disorder, depressed, moderate F31.32 and Anxiety F41.9 [place] [id number] [place] [address] 67637- 2296 Sep, Bipolar 1 disorder, depressed, moderate F31.32 [place] [address] 89476- 8778 Sep, Bipolar 1 disorder, depressed, moderate F31.32 and Anxiety F41.9 [facility] [address] 31800 -0510 Sep, Pain of toe of right foot M79.674 [place] [id number] [place] [address] 88102- 5206 Sep, [facility] [id number] [place] [address] 98866 -0212 Sep, Cellulitis of right ankle L03.115 [place] [address] 51085- 0611 Sep, Bipolar 1 disorder, depressed, moderate F31.32 and Anxiety F41.9 [place] [id number] [place] [address] 14611- 4541 Sep, [place] [address] 16695- 6412 Sep, [facility] [address] [place] [address] 94795- 1601 Sep, Bipolar 1 disorder, depressed, moderate F31.32 and Anxiety F41.9 [facility] [id number] [place] [address] 43832- 9987 Sep, Accidental spider bite T63.301A [facility] [address] 03546- 7016 Aug, Bipolar 1 disorder, depressed, moderate F31.32 ; Anxiety F41.9 ; Borderline personality disorder F60.3 and Polysubstance (including opioids) dependence with physiol dependence F19.20 [place] [id number] [place] [address] 69790- 7177 Aug, [place] [id number] [place] [address] 94725- 6051 Aug, Bipolar 1 disorder, depressed, moderate F31.32 and Anxiety F41.9 [place] [id number] [place] [address] 98990- 1891 Aug, Pre-diabetes R73.03 ; Acute seasonal allergic rhinitis due to pollen J30.1 ; Hypercholesteremia E78.00 and Nausea R11.0 [place] [address] [place] [address] 98010- 2850 Aug, [facility] [id number] [place] [address] 50946- 4903 Aug, Bipolar 1 disorder, depressed, moderate F31.32 and Anxiety F41.9 [place] [id number] [place] [address] 00664- 4387 Aug, [facility] [id number] [place] [address] 16144- 4207 Aug, [facility] [address] [place] [address] 48224- 7652 Aug, [facility] [id number] [place] [address] 44642- 4958 Aug, Bipolar 1 disorder, depressed, moderate F31.32 and Anxiety F41.[address] 44042- 5299 Aug, [facility] [address] 56498 -8350 Aug, Insect bite, initial encounter W57.XXXA and Cellulitis of left lower leg L03.[address] 61537- 1908 Aug, Bipolar 1 disorder, depressed, moderate F31.32 and Borderline personality disorder F60.[address] 43123- 7235 July, [address] 22735- 2077 July, [id number] [place] [address] 19254- 9717 July, Encounter for routine adult health examination with abnormal findings Z00.01 ; History of esophageal cancer Z85.01 ; Bipolar 1 disorder, depressed, moderate F31.32 ; Anxiety F41.9 ; Acquired hypothyroidism E03.9 ; Essential hypertension I10 ; Gastroesophageal reflux disease with esophagitis K21.0 and Encounter for immunization Z23 [id number] [place] [address] 51343- 3969 July, Bipolar 1 disorder, depressed, moderate F31.32 and Anxiety F41.9 [address] [id number] [place] [address] 46568- 8517 July, [address] 87393- 7727 July, Bipolar 1 disorder, depressed, moderate F31.32 and Anxiety F41.[address] 49791- 4917 July, Bipolar 1 disorder, depressed, moderate F31.32 [facility] [address] [place] [address] 02935- 4221 July, Bipolar 1 disorder, depressed, moderate F31.32 and Anxiety F41.9 [facility] [address] [place] [address] 80284- 3405 Jun, Bipolar 1 disorder, depressed, moderate F31.32 [facility] [id number] [place] [address] 71611- 1152 Jun, Bipolar 1 disorder, depressed, moderate F31.32 and Borderline personality disorder F60.3 [place] [id number] [place] [address] 87988- 7385 Jun, Bipolar 1 disorder, depressed, moderate F31.32 [place] [id number] [place] [address] 21003- 4143 Jun, Bipolar 1 disorder, depressed, moderate F31.32 [facility] [id number] [place] [address] 27607- 8533 May, Bipolar 1 disorder, depressed, moderate F31.32 and Anxiety F41.9 [place] [address] [place] [address] 37264- 5098 May, Bipolar 1 disorder, depressed, moderate F31.32 and Anxiety F41.9 [facility] [address] [place] [address] 42888- 2420 May, Bipolar 1 disorder, depressed, moderate F31.32 and Anxiety F41.9 [facility] [address] [place] [address] 52181- 2775 May, Bipolar 1 disorder, depressed, moderate F31.32 and Borderline personality disorder F60.3 [facility] [address] [place] [address] 78568- 4932 14 May, 2016 [facility] [id number] [place] [address] 56211- 6858 May, Bipolar 1 disorder, depressed, moderate F31.32 and Anxiety F41.9 [facility] [address] [place] [address] 26592- 4385 May, Bipolar 1 disorder, depressed, moderate F31.32 and Anxiety F41.9 [facility] [id number] [place] [address] 25401- 2913 May, [facility] [address] 512096- 7211 May, Bipolar 1 disorder, depressed, moderate F31.32 [place] [id number] [place] [address] 97554- 0684 May, Bipolar 1 disorder, depressed, moderate F31.32 and Generalized anxiety disorder F41.1 [place] [id number] [place] [address] 09301- 6488 Apr, Bipolar 1 disorder, depressed, moderate F31.32 and Anxiety F41.9 [facility] [id number] [place] [address] 75764- 4818 Apr, [facility] [id number] [place] [address] 85770- 4598 Apr, Bipolar 1 disorder, depressed, moderate F31.32 and Anxiety F41.9 [facility] [id number] [place] [address] 98325- 0618 Apr, Bipolar 1 disorder, depressed, moderate F31.32 and Anxiety F41.9 [facility] [id number] [place] [address] 55600- 7868 Apr, Bipolar affective disorder, depressed, severe F31.4 and Generalized anxiety disorder F41.1 [facility] [id number] [place] [address] 23622- 5044 Mar, Bipolar 1 disorder, depressed, moderate F31.32 and Anxiety F41.9 [facility] [id number] [place] [address] 59877- 3257 Mar, Bipolar 1 disorder, depressed, moderate F31.32 and Anxiety F41.9 [place] [address] [place] [address]- 0028 Mar, Bipolar 1 disorder, mixed, moderate F31.62 [facility] [address] [place] [address] 08686- 0609 Mar, [place] [id number] [place] [address] 639188- 0927 Mar, Bipolar 1 disorder, mixed, moderate F31.62 ; Generalized anxiety disorder F41.1 and Other intermediate designer (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 Z79.899 [place] [id number] [place] [address]- 8438 Feb, Bipolar 1 disorder, depressed, moderate F31.32 and Anxiety F41.9 [place] [id number] [place] [address] 41160- 7716 Feb, Bipolar 1 disorder, depressed, moderate F31.32 and Other intermediate designer (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 Z79.899 [place] [id number] [place] [address] 56377- 5450 Feb, [place] [id number] [place] [address] 33626- 3725 Feb, Bipolar 1 disorder, depressed, moderate F31.32 and Anxiety F41.9 [place] [id number] [place] [address] 36987- 0725 Feb, Bipolar 1 disorder, depressed, moderate F31.32 and Other snf (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 Z79.899 [place] [id number] [place] [address] 67532- 1975 Feb, Bipolar 1 disorder, depressed, moderate F31.32 and Anxiety F41.9 [place] [address] [place] [address] 19561- 0794 Dec, Bipolar 1 disorder, depressed, moderate F31.32 and Anxiety F41.9 [facility] [address] [facility] [id number] [place] [address]- 1043 Oct, [facility] [address] [facility] [id number] [place]- 1374 Oct, [facility] [address] [facility] [id number] [place]- 7049 May, [facility] [address] [facility] [id number] [address]- 9001 May, [facility] [address] [facility] [id number] [address] Mar, [facility] [address] [facility] [id number] [address] Mar, IMMUNIZATIONS No Known Immunizations SOCIAL HISTORY Never Assessed REASON FOR VISIT Follow-up Depression PLAN OF CARE Activity Details Follow Up 2 Weeks Reason: Follow-up VITAL SIGNS MEDICATIONS Unknown Medications RESULTS No Results PROCEDURES Procedure Date Ordered Result Body Site [facility] VISIT MENTAL HEALTH ESTAB PT Nov 20, 2017 Psychotherapy, patient &/family, 30 minutes, established patient Nov 20, 2017 INSTRUCTIONS MEDICATIONS ADMINISTERED No Known [...] Cancer Head and Neck 2005 Hospitalization History [facility] Psychiatric Admission 2015
--- OUTSIDE RECORDS SUMMARY | 2018-02-03 22:02 | XMS REPORT ---
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 Name Role Phone MICHELLE, DARCI Unavailable PROBLEMS Type Condition ICD9-CM Code [id number] Code Onset Dates Condition Status SNOMED Code Problem Gastroesophageal reflux disease with esophagitis K21.0 Active 637664331 Problem Polysubstance (including opioids) dependence with physiol dependence F19.20 Active 72856578 Problem History of esophageal cancer Z85.01 Active 271546727 Problem Seasonal allergies J30.2 Active 420478330 Problem Pre-diabetes R73.03 Active 487973553 Problem GERD (gastroesophageal reflux disease) K21.9 Active 691433341 Problem Borderline personality disorder F60.3 Active 35143846 Problem Pure hypercholesterolemia E78.00 Active 482596052 Problem Nephrolithiasis N20.0 Active 24484609 Problem STATE HEP A (ADULT) DX V05.3 Active 710802808 Problem Bipolar 1 disorder, depressed, moderate F31.32 Active 83351041 Problem Anxiety F41.9 Active 66658178 Problem Vitamin D insufficiency E55.9 Active 849317081 Problem Essential hypertension I10 Active 90367554 Problem Elevated serum creatinine R79.89 Active 198203541 Problem Acquired hypothyroidism E03.9 Active 354813287 ALLERGIES No Information ENCOUNTERS Encounter Location Date Diagnosis [facility], [place] [id number], [place] [address] Jan, [facility], [place] [id number] [place] [address] 00768- 9103 Dec, [facility], [place] [address], [place] [address] Dec, [facility], [place] [id number], [place] [address] Dec, [facility], [place] [address] [place] [address] 11876- 8144 Dec, Encounter for immunization Z23 [facility], [place] [id number] [place] [address] 95627- 6526 Nov, [facility], [place] [id number] [place] [address] 12272- 3551 Nov, Bipolar 1 disorder, depressed, moderate F31.32 and Anxiety F41.9 [facility], [place] [id number] [place] [address] 72459- 1689 Nov, Bipolar 1 disorder, depressed, moderate F31.32 [facility], [place] [address] [address]43- 1229 Nov, [place] [address] 91285- 8546 Nov, Bipolar 1 disorder, depressed, moderate F31.32 and Anxiety F41.9 [facility], [place] [id number] [place] [address] 33983- 3861 Oct, Bipolar 1 disorder, depressed, moderate F31.32 ; Anxiety F41.9 ; Borderline personality disorder F60.3 ; Polysubstance (including opioids ) dependence with physiol dependence F19.20 and 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 [facility], [place] [id number] [place] [address] 21865- 0509 Oct, Bipolar 1 disorder, depressed, moderate F31.32 [facility] [address] [place] [address] [id number] Sep, Encounter for dental examination Z01.20 [facility], [place] [id number] [place] [address] 86858- 0163 Sep, Acute oral pain K13.79 [facility], [place] [id number] [place] [address] 87611- 6579 Sep, Bipolar 1 disorder, depressed, moderate F31.32 [place] [id number] [place] [address] 14679- 8757 Sep, Bipolar 1 disorder, depressed, moderate F31.32 [place] [address] 98378- 5005 Sep, Bipolar 1 disorder, depressed, moderate F31.32 [place] [address] 07601- 1242 Sep, Essential hypertension I10 ; Acquired hypothyroidism E03.9 ; Anxiety F41.9 ; Chronic nausea R11.0 and Irritant contact dermatitis due to plants, except food L24.7 [place] [address] 44108- 7702 Aug, Bipolar 1 disorder, depressed, moderate F31.32 [place] [address] 40614- 0638 Aug, Bipolar 1 disorder, depressed, moderate F31.32 [place] [address] 81826- 0445 Aug, Bipolar 1 disorder, depressed, moderate F31.32 [place] [address] 82217- 6691 July, Candidal dermatitis B37.2 [place] [address] 00468- 7723 July, Acquired hypothyroidism E03.9 [place] [address] 63228- 0815 July, Bipolar 1 disorder, depressed, moderate F31.32 [facility] [address] 23017 -4233 July, Seasonal allergies J30.2 [place] [id number] [place] [address] 26567- 4798 July, Bipolar 1 disorder, depressed, moderate F31.32 [place] [address] [id number] Jun, Pre-diabetes R73.03 [place] [address] 552411- 0491 Jun, Bipolar 1 disorder, depressed, moderate F31.32 ; Anxiety F41.9 ; Borderline personality disorder F60.3 ; Polysubstance (including opioids ) dependence with physiol dependence F19.20 and Other specified abnormal findings of blood chemistry R79.89 [place] [address] [id number]- 4044 Jun, Bipolar 1 disorder, depressed, moderate F31.32 [place] [address] 552415- 0857 May, Bipolar 1 disorder, depressed, moderate F31.32 [place] [address] [id number]- 0429 May, Bipolar 1 disorder, depressed, moderate F31.32 [place] [address] 83187- 8080 May, [place] [address] 552417- 5310 May, [place] [address] [id number]- 6756 May, Bipolar 1 disorder, depressed, moderate F31.32 [place] [address] 00910- 8852 May, Bipolar 1 disorder, depressed, moderate F31.32 [place] [address] 36657- 1349 May, Other specified abnormal findings of blood chemistry R79.89 [place] [address] [id number]- 1153 08 May, 2017 Essential hypertension I10 ; Acquired hypothyroidism E03.9 ; Gastroesophageal reflux disease with esophagitis K21.0 ; Hair loss L65.9 ; Hypokalemia, gastrointestinal losses E87.6 ; Pre-diabetes R73.03 ; Candidal dermatitis B37.2 and Pure hypercholesterolemia E78.00 [place] [id number]- 0336 Apr, Bipolar 1 disorder, depressed, moderate F31.[address] 87167- 4903 Apr, Bipolar 1 disorder, depressed, moderate F31.32 [place] [address] 00047- 7200 Apr, Bipolar 1 disorder, depressed, moderate F31.32 and Anxiety F41.9 [facility] [address] [address] -[address]13 Mar, Encounter for immunization Z23 ; Fall, initial encounter W19.XXXA ; Rib pain on left side R07.81 and Left hip pain M25.[address] 61173- 9861 Mar, Bipolar 1 disorder, depressed, moderate F31.32 and Anxiety F41.[address] 43739- 5859 Mar, Bipolar 1 disorder, depressed, moderate F31.32 ; Anxiety F41.9 ; Borderline personality disorder F60.3 and Polysubstance (including opioids) dependence with physiol dependence F19.[address] 63048- 3925 Mar, Bipolar 1 disorder, depressed, moderate F31.32 and Anxiety F41.9 [facility] [address] [place] [address] 83804 -2075 Feb, Irritant contact dermatitis, unspecified trigger L24.9 [place] [address] 27602- 3992 Feb, [place] [address] 78757- 7725 Feb, [place] [address] [place] [address] Feb, Bipolar 1 disorder, depressed, moderate F31.32 and Anxiety F41.9 [place] [id number] [place] [address] 573440- 1495 14 Feb, 2017 Acute non-recurrent maxillary sinusitis J01.00 [place] [id number] [place] [address] 237274- 3232 Feb, [place] [id number] [place] [address] Feb, Bipolar 1 disorder, depressed, moderate F31.32 [place] [id number] [place] [address] 46041- 8342 29 Jan, 2017 [place] [id number] [place] [address] 582568- 0532 Jan, Bipolar 1 disorder, depressed, moderate F31.32 ; Anxiety F41.9 ; Borderline personality disorder F60.3 and Polysubstance (including opioids) dependence with physiol dependence F19.20 [place] [id number] [place] [address] 01993- 0578 27 Jan, 2017 Bipolar 1 disorder, depressed, moderate F31.32 and Anxiety F41.9 [place] [id number] [place] [address] 20327- 8754 20 Jan, 2017 Bipolar 1 disorder, depressed, moderate F31.32 ; Anxiety F41.9 ; Borderline personality disorder F60.3 and Polysubstance (including opioids) dependence with physiol dependence F19.20 [place] [id number] [place] [address] 742123- 9845 13 Jan, 2017 Bipolar 1 disorder, depressed, moderate F31.32 and Anxiety F41.9 [place] [id number] [place] [address] 56231- 0115 Dec, Hypokalemia, gastrointestinal losses E87.6 ; GERD ( gastroesophageal reflux disease) K21.9 and Bipolar 1 disorder, depressed, moderate F31.32 [place] [id number] [place] [address] 91905- 3487 Dec, Bipolar 1 disorder, depressed, moderate F31.32 and Anxiety F41.9 [facility] [place] [id number] [place] [address] 27215 -9102 Dec, [place] [address] 29744- 8119 Dec, [facility] [place] [address] [id number] [place] [address] 31282 -0717 Dec, Fall (on) (from) other stairs and steps, initial encounter W10.8XXA ; Laceration of left lower extremity, initial encounter S81.812A ; Contusion of right knee, initial encounter S80.01XA and Contusion of right shoulder, initial encounter S40.011A [place] [address] 24265- 0089 Dec, Bipolar 1 disorder, depressed, moderate F31.32 ; Anxiety F41.9 ; Borderline personality disorder F60.3 and Polysubstance (including opioids) dependence with physiol dependence F19.20 [place] [id number] [place] [address] 34079- 2520 Dec, Bipolar 1 disorder, depressed, moderate F31.32 and Anxiety F41.9 [place] [id number] [place] [address] 78409- 0810 Dec, [place] [id number] [place] [address] 67295- 9130 Dec, Hospital discharge follow-up Z09 ; Nephrolithiasis N20.0 ; Essential hypertension I10 ; Gastroesophageal reflux disease with esophagitis K21.0 and Anxiety F41.9 [place] [id number] [place] [address] 70089- 5436 Nov, [facility] [place] [id number] [place] [address] 28869 -1788 24 Nov, 2016 Dysuria R30.0 and Acute cystitis with hematuria N30.01 [facility] [address] [id number] -2681 24 Nov, 2016 [facility], [place] [address] 02942- 2973 Nov, [place] [address] [id number]- 9317 19 Nov, 2016 Gastroesophageal reflux disease with esophagitis K21.0 ; Hypercholesteremia E78.00 and Acquired hypothyroidism E03.9 [facility] [address] 22199 8385 18 Nov, 2016 Left wrist pain M25.532 and Contusion of left wrist, initial encounter S60.212A [address] 64888- 8508 18 Nov, 2016 Bipolar 1 disorder, depressed, moderate F31.32 ; Anxiety F41.9 ; Borderline personality disorder F60.3 and Polysubstance (including opioids) dependence with physiol dependence F19.20 [facility] [id number] [place] [address] 40068 -2652 15 Nov, 2016 Abdominal pain R10.9 and GERD (gastroesophageal reflux disease) K21.9 [place] [id number] [place] [address] 18383- 3456 12 Nov, 2016 Hypokalemia, gastrointestinal losses E87.[address] 33828- 8144 11 Nov, 2016 Dehydration E86.0 ; Hypokalemia, gastrointestinal losses E87.6 and Vaginal candidiasis B37.3 [place] [id number] [place] [address] 68257- 4656 08 Nov, 2016 Abnormal weight loss R63.4 ; Diarrhea, unspecified R19.7 ; Vomiting, unspecified R11.10 ; Generalized abdominal pain R10.84 and Decreased breath sounds R06.89 [place] [id number] [place] [address] 20169- 6191 Oct, Bipolar 1 disorder, depressed, moderate F31.32 and Anxiety F41.9 [place] [id number] [place] [address] 51571- 6269 Sep, Bipolar 1 disorder, depressed, moderate F31.32 ; Anxiety F41.9 ; Borderline personality disorder F60.3 and Polysubstance (including opioids) dependence with physiol dependence F19.20 [place] [address] 450588- 5593 Sep, Bipolar 1 disorder, depressed, moderate F31.32 and Anxiety F41.9 [place] [id number] [place] [address] 35404- 7060 Sep, Bipolar 1 disorder, depressed, moderate F31.32 [place] [address] 07730- 2120 Sep, Bipolar 1 disorder, depressed, moderate F31.32 and Anxiety F41.9 [facility] [address] 83605 -4139 Sep, Pain of toe of right foot M79.674 [place] [id number] [place] [address] 98356- 4020 Sep, [facility] [address] 18977 -4841 Sep, Cellulitis of right ankle L03.115 [place] [address] 77043- 2354 Sep, Bipolar 1 disorder, depressed, moderate F31.32 and Anxiety F41.9 [place] [id number] [place] [address] 49951- 5432 Sep, [place] [address] 60567- 2463 Sep, [facility] [place] [id number] [place] [address] 11132- 9106 Sep, Bipolar 1 disorder, depressed, moderate F31.32 and Anxiety F41.9 [facility], [place] [id number] [place] [address] 18998- 5212 Sep, Accidental spider bite T63.301A [facility], [place] [address] 00516- 3187 Aug, Bipolar 1 disorder, depressed, moderate F31.32 ; Anxiety F41.9 ; Borderline personality disorder F60.3 and Polysubstance (including opioids) dependence with physiol dependence F19.20 [place] [address] 98023- 1463 Aug, [place] [address] 11807- 5095 Aug, Bipolar 1 disorder, depressed, moderate F31.32 and Anxiety F41.9 [place] [address] 46992- 8909 Aug, Pre-diabetes R73.03 ; Acute seasonal allergic rhinitis due to pollen J30.1 ; Hypercholesteremia E78.00 and Nausea R11.0 [place] [id number] [place] [address] 13802- 8931 Aug, [place] [address] 05058- 5881 Aug, Bipolar 1 disorder, depressed, moderate F31.32 and Anxiety F41.9 [place] [address] 48054- 6298 Aug, [facility] [place] [address] 03946- 4809 Aug, [place] [address] 49981- 8261 Aug, [place] [id number] [place] [address] 15723- 5158 Aug, Bipolar 1 disorder, depressed, moderate F31.32 and Anxiety F41.9 [place] [id number] [place] [address] 57387- 8177 Aug, [facility] [address] [place] [id number] [place] [address] 62170 -9331 Aug, Insect bite, initial encounter W57.XXXA and Cellulitis of left lower leg L03.[address] 42319- 6721 Aug, Bipolar 1 disorder, depressed, moderate F31.32 and Borderline personality disorder F60.[address] 88544- 1117 July, [address] 00017- 3663 July, [address] 11371- 1235 July, Encounter for routine adult health examination with abnormal findings Z00.01 ; History of esophageal cancer Z85.01 ; Bipolar 1 disorder, depressed, moderate F31.32 ; Anxiety F41.9 ; Acquired hypothyroidism E03.9 ; Essential hypertension I10 ; Gastroesophageal reflux disease with esophagitis K21.0 and Encounter for immunization Z23 [place] [id number] [place] [address] 69440- 6696 July, Bipolar 1 disorder, depressed, moderate F31.32 and Anxiety F41.9 [place] [id number] [place] [address] 76261- 2099 July, [place] [id number] [place] [address] 24857- 9449 July, Bipolar 1 disorder, depressed, moderate F31.32 and Anxiety F41.[address] 56446- 6528 July, Bipolar 1 disorder, depressed, moderate F31.32 [facility] [place] [id number] [place] [address] 49884- 3335 July, Bipolar 1 disorder, depressed, moderate F31.32 and Anxiety F41.9 [facility], [place] [id number] [place] [address] 72772- 0101 Jun, Bipolar 1 disorder, depressed, moderate F31.32 [facility], [place] [id number] [place] [address] 110623- 8413 Jun, Bipolar 1 disorder, depressed, moderate F31.32 and Borderline personality disorder F60.3 [facility], [place] [id number] [place] [address] 46380- 1922 Jun, Bipolar 1 disorder, depressed, moderate F31.32 [place] [id number] [place] [address] 56555- 4981 Jun, Bipolar 1 disorder, depressed, moderate F31.32 [facility], [place] [id number] [place] [address] 58224- 3937 May, Bipolar 1 disorder, depressed, moderate F31.32 and Anxiety F41.9 [facility], [place] [id number] [place] [address] 85206- 9846 May, Bipolar 1 disorder, depressed, moderate F31.32 and Anxiety F41.9 [facility], [place] [id number] [place] [address] 76656- 0569 May, Bipolar 1 disorder, depressed, moderate F31.32 and Anxiety F41.9 [facility] [place] [id number] [place] [address] 50894- 5228 May, Bipolar 1 disorder, depressed, moderate F31.32 and Borderline personality disorder F60.3 [facility], [place] [id number] [place] [address] 76858- 5680 14 May, 2016 [facility], [place] [id number] [place] [address] 68770- 9373 May, Bipolar 1 disorder, depressed, moderate F31.32 and Anxiety F41.9 [facility], [place] [id number] [place] [address]- 9659 May, Bipolar 1 disorder, depressed, moderate F31.32 and Anxiety F41.9 [facility], [place] [id number] [place]- 6751 May, [facility], [place] [address] 552415- 8832 May, Bipolar 1 disorder, depressed, moderate F31.32 [place] [address] [place] 552414- 4343 May, Bipolar 1 disorder, depressed, moderate F31.32 and Generalized anxiety disorder F41.1 [place] [id number] [place] [address] 004861- 7076 Apr, Bipolar 1 disorder, depressed, moderate F31.32 and Anxiety F41.9 [facility], [place] [id number] [place] [address] 51846- 1256 Apr, [facility], [place] [address] [address] [id number]- 3081 Apr, Bipolar 1 disorder, depressed, moderate F31.32 and Anxiety F41.9 [facility] [place] [id number] [place] [address] 54017- 1167 Apr, Bipolar 1 disorder, depressed, moderate F31.32 and Anxiety F41.9 [facility] [place] [id number] [place] [address] 35163- 6476 Apr, Bipolar affective disorder, depressed, severe F31.4 and Generalized anxiety disorder F41.1 [facility], [place] [address] [place] [address]- 5906 Mar, Bipolar 1 disorder, depressed, moderate F31.32 and Anxiety F41.9 [facility], [place] [address] [place] [address]- 4666 Mar, Bipolar 1 disorder, depressed, moderate F31.32 and Anxiety F41.9 [place] [id number] [place] [address] 06072- 9914 Mar, Bipolar 1 disorder, mixed, moderate F31.62 [place] [id number] [place] [address] 99169- 8395 Mar, [place] [id number] [place] [address] 08301- 3720 Mar, Bipolar 1 disorder, mixed, moderate F31.62 ; Generalized anxiety disorder F41.1 and 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 [place] [id number] [place] [address] 39952- 6309 Feb, Bipolar 1 disorder, depressed, moderate F31.32 and Anxiety F41.9 [place] [id number] [place] [address] 54825- 7534 Feb, Bipolar 1 disorder, depressed, moderate F31.32 and Other detention (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 Z79.899 [place] [id number] [place] [address] 81299- 0372 Feb, [place] [id number] [place] [address] 29621- 9179 Feb, Bipolar 1 disorder, depressed, moderate F31.32 and Anxiety F41.9 [place] [id number] [place] [address] 24931- 1028 Feb, Bipolar 1 disorder, depressed, moderate F31.32 and 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 [place] [address] [place] [address] 87407- 3715 Feb, Bipolar 1 disorder, depressed, moderate F31.32 and Anxiety F41.9 [place] [address] [place] [address] 21431- 1328 Dec, Bipolar 1 disorder, depressed, moderate F31.32 and Anxiety F41.9 [facility], [place] [id number] [address]- 3060 Oct, [facility], [place] [id number]- 4650 Oct, [facility], [place] [id number] [address] May, [facility], [place] [id number] [address] May, [facility], [place] [id number] [address] Mar, [facility], [place] [id number], [place] [address] Mar, IMMUNIZATIONS No Known Immunizations SOCIAL HISTORY Never Assessed REASON FOR VISIT med refill PLAN OF CARE VITAL SIGNS MEDICATIONS Medication Instructions Dosage Frequency Start Date End Date Duration Status Gabapentin 300 MG Orally 2 times a day 1 capsule 12h Jan, 30 days Active RESULTS No Results [...] Cancer Head and Neck 2005 Hospitalization History [facility] Psychiatric Admission 2016
--- OUTSIDE RECORDS SUMMARY | 2018-02-03 22:03 | XMS REPORT ---
Author Author MICHELLE DARCI [facility] Address [address] [place] [address] Care Team Providers Care Publishing Manager Name Role Phone MICHELLE, DARCI Unavailable PROBLEMS Type Condition ICD9-CM Code XWV81-HD Code Onset Dates Condition Status SNOMED Code Problem Gastroesophageal reflux disease with esophagitis K21.0 Active 633290954 Problem Polysubstance (including opioids) dependence with physiol dependence F19.20 Active 76248264 Problem History of esophageal cancer Z85.01 Active 683757488 Problem Seasonal allergies J30.2 Active 069745265 Problem Pre-diabetes R73.03 Active 764251345 Problem GERD (gastroesophageal reflux disease) K21.9 Active 556954928 Problem Borderline personality disorder F60.3 Active 81630315 Problem Pure hypercholesterolemia E78.00 Active 758329672 Problem Nephrolithiasis N20.0 Active 34987969 Problem STATE HEP A (ADULT) DX V05.3 Active 679234453 Problem Bipolar 1 disorder, depressed, moderate F31.32 Active 68477531 Problem Anxiety F41.9 Active 77431417 Problem Vitamin D insufficiency E55.9 Active 290255726 Problem Essential hypertension I10 Active 94546307 Problem Elevated serum creatinine R79.89 Active 832536008 Problem Acquired hypothyroidism E03.9 Active 274921847 ALLERGIES No Information ENCOUNTERS Encounter Location Date Diagnosis [facility] [id number] [address] Jan, [facility] [id number] [place] [address] 38895- 6398 Dec, [facility] [address] [address] Dec, [facility] [id number] [address] Dec, [facility] [id number] [place] [address] 82469- 3251 Nov, [facility] [address] 8[address]64- 1315 Nov, Bipolar 1 disorder, depressed, moderate F31.32 and Anxiety F41.9 [facility] [address] 0[address]87- 2830 Nov, Bipolar 1 disorder, depressed, moderate F31.32 [facility] [id number] [place] [address] 88149- 9118 Nov, [facility] [place] [address] 11232- 1815 Nov, Bipolar 1 disorder, depressed, moderate F31.32 and Anxiety F41.9 [facility] [id number] [place] [address] 18850- 5354 Oct, Bipolar 1 disorder, depressed, moderate F31.32 ; Anxiety F41.9 ; Borderline personality disorder F60.3 ; Polysubstance (including opioids ) dependence with physiol dependence F19.20 and Other correction (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 Z79.899 [facility] [id number] [place] [address] 08564- 1025 Oct, Bipolar 1 disorder, depressed, moderate F31.32 [facility] [id number] [place] [address] [id number] Sep, Encounter for dental examination Z01.20 [facility] [id number] [place] [address] 64187- 3716 Sep, Acute oral pain K13.79 [facility] [id number] [place] [address] 29418- 0471 Sep, Bipolar 1 disorder, depressed, moderate F31.32 [facility] [id number] [place] [address] 91467- 3248 Sep, Bipolar 1 disorder, depressed, moderate F31.32 [facility] [id number] [place] [address] 02486- 3670 Sep, Bipolar 1 disorder, depressed, moderate F31.32 [facility] [address] [id number]- 8862 Sep, Essential hypertension I10 ; Acquired hypothyroidism E03.9 ; Anxiety F41.9 ; Chronic nausea R11.0 and Irritant contact dermatitis due to plants, except food L24.7 [facility] [address] 82678- 5638 Aug, Bipolar 1 disorder, depressed, moderate F31.32 [facility] [address] 54082- 6901 Aug, Bipolar 1 disorder, depressed, moderate F31.32 [facility] [address] 06293- 1882 Aug, Bipolar 1 disorder, depressed, moderate F31.32 [facility] [address] 44655- 6606 July, Candidal dermatitis B37.2 [facility] [facility] [address] 46880- 5720 July, Acquired hypothyroidism E03.9 [facility] [address] 13868- 6189 July, Bipolar 1 disorder, depressed, moderate F31.32 [facility] [id number] [place] [address] 68442 -5731 July, Seasonal allergies J30.2 [facility] [address] 20245- 7719 July, Bipolar 1 disorder, depressed, moderate F31.32 [facility] [address] 50736- 4581 Jun, Pre-diabetes R73.03 [place] [address] [id number] [address] Jun, Bipolar 1 disorder, depressed, moderate F31.32 ; Anxiety F41.9 ; Borderline personality disorder F60.3 ; Polysubstance (including opioids ) dependence with physiol dependence F19.20 and Other specified abnormal findings of blood chemistry R79.89 [facility] [id number] [place] [address] 2828 Jun, Bipolar 1 disorder, depressed, moderate F31.32 [facility] [address] 679615- 3083 May, Bipolar 1 disorder, depressed, moderate F31.32 [facility] [address] 679612- 1643 May, Bipolar 1 disorder, depressed, moderate F31.32 [facility] [id number] [place]- 2290 May, [facility] [address] [id number]- 9618 May, [facility] [id number] [place] 2912 May, Bipolar 1 disorder, depressed, moderate F31.32 [facility] [id number] [place] [id number] May, Bipolar 1 disorder, depressed, moderate F31.32 [facility] [id number] [place] [address]38 May, Other specified abnormal findings of blood chemistry R79.89 [facility] [id number] [place] [address] 9694 May, Essential hypertension I10 ; Acquired hypothyroidism E03.9 ; Gastroesophageal reflux disease with esophagitis K21.0 ; Hair loss L65.9 ; Hypokalemia, gastrointestinal losses E87.6 ; Pre-diabetes R73.03 ; Candidal dermatitis B37.2 and Pure hypercholesterolemia E78.00 [facility] [id number] [place] [address] 26744- 4434 Apr, Bipolar 1 disorder, depressed, moderate F31.32 [facility] [address] 28803- 5655 Apr, Bipolar 1 disorder, depressed, moderate F31.32 [place] [address] 35493- 4758 Apr, Bipolar 1 disorder, depressed, moderate F31.32 and Anxiety F41.9 [facility] [address] 21750 -4989 Mar, Encounter for immunization Z23 ; Fall, initial encounter W19.XXXA ; Rib pain on left side R07.81 and Left hip pain M25.[address] [address]80- 2542 Mar, Bipolar 1 disorder, depressed, moderate F31.32 and Anxiety F41.9 [place] [address] 22551- 9354 Mar, Bipolar 1 disorder, depressed, moderate F31.32 ; Anxiety F41.9 ; Borderline personality disorder F60.3 and Polysubstance (including opioids) dependence with physiol dependence F19.[address] 98574- 3614 Mar, Bipolar 1 disorder, depressed, moderate F31.32 and Anxiety F41.9 [facility] [id number] [place] [address] 89778 -1138 Feb, Irritant contact dermatitis, unspecified trigger L24.9 [place] [address] 81267- 4159 Feb, [place] [address] 00927- 2887 14 Feb, 2017 [place] [address] 98723- 5108 Feb, Bipolar 1 disorder, depressed, moderate F31.32 and Anxiety F41.9 [facility] [facility] [id number] [place] [address]- 4146 Feb, Acute non-recurrent maxillary sinusitis J01.00 [facility] [id number] [place] 6551 Feb, [facility] [address] 679614- 4412 Feb, Bipolar 1 disorder, depressed, moderate F31.32 [place] [address] [place] [address]- 5897 Jan, [facility] [address] 679615- 7746 Jan, Bipolar 1 disorder, depressed, moderate F31.32 ; Anxiety F41.9 ; Borderline personality disorder F60.3 and Polysubstance (including opioids) dependence with physiol dependence F19.20 [facility] [id number] [place] [address] 86330- 1951 27 Jan, 2017 Bipolar 1 disorder, depressed, moderate F31.32 and Anxiety F41.9 [facility] [id number] [place] [address] 66983- 0260 20 Jan, 2017 Bipolar 1 disorder, depressed, moderate F31.32 ; Anxiety F41.9 ; Borderline personality disorder F60.3 and Polysubstance (including opioids) dependence with physiol dependence F19.20 [facility] [id number] [place] [address] 90647- 2985 13 Jan, 2017 Bipolar 1 disorder, depressed, moderate F31.32 and Anxiety F41.9 [facility] [address] 679613- 7946 23 Dec, 2016 Hypokalemia, gastrointestinal losses E87.6 ; GERD ( gastroesophageal reflux disease) K21.9 and Bipolar 1 disorder, depressed, moderate F31.32 [place] [address] [place] [address]- 1476 Dec, Bipolar 1 disorder, depressed, moderate F31.32 and Anxiety F41.9 [facility] [address] 78225 -3600 Dec, [place] [address] 33722- 3046 Dec, [facility] [address] 11525 -9870 Dec, Fall (on) (from) other stairs and steps, initial encounter W10.8XXA ; Laceration of left lower extremity, initial encounter S81.812A ; Contusion of right knee, initial encounter S80.01XA and Contusion of right shoulder, initial encounter S40.011A [address] 49520- 0692 Dec, Bipolar 1 disorder, depressed, moderate F31.32 ; Anxiety F41.9 ; Borderline personality disorder F60.3 and Polysubstance (including opioids) dependence with physiol dependence F19.[address] 91681- 9604 Dec, Bipolar 1 disorder, depressed, moderate F31.32 and Anxiety F41.9 [place] [address] 78091- 5591 Dec, [address] 25481- 1734 Dec, Hospital discharge follow-up Z09 ; Nephrolithiasis N20.0 ; Essential hypertension I10 ; Gastroesophageal reflux disease with esophagitis K21.0 and Anxiety F41.9 [place] [address] 39625- 3405 28 Nov, 2016 [facility] [address] 22707 -4963 24 Nov, 2016 Dysuria R30.0 and Acute cystitis with hematuria N30.01 [facility] [id number] [place] [address] 70319 -6857 24 Nov, 2016 [facility] [id number] [place] [address] 70049- 8343 19 Nov, 2016 [facility] [id number] [place] [address] 36182- 2510 19 Nov, 2016 Gastroesophageal reflux disease with esophagitis K21.0 ; Hypercholesteremia E78.00 and Acquired hypothyroidism E03.9 [facility] [address] 31565 -1029 18 Nov, 2016 Left wrist pain M25.532 and Contusion of left wrist, initial encounter S60.212A [place] [address] 65106- 4415 18 Nov, 2016 Bipolar 1 disorder, depressed, moderate F31.32 ; Anxiety F41.9 ; Borderline personality disorder F60.3 and Polysubstance (including opioids) dependence with physiol dependence F19.20 [facility] [id number] [place] [address] 49100 -1858 15 Nov, 2016 Abdominal pain R10.9 and GERD (gastroesophageal reflux disease) K21.9 [place] [id number] [place] [address] 32974- 2910 12 Nov, 2016 Hypokalemia, gastrointestinal losses E87.6 [facility] [facility] [id number] [place] [address] 68737- 0302 11 Nov, 2016 Dehydration E86.0 ; Hypokalemia, gastrointestinal losses E87.6 and Vaginal candidiasis B37.3 [place] [address] 91652- 1057 08 Nov, 2016 Abnormal weight loss R63.4 ; Diarrhea, unspecified R19.7 ; Vomiting, unspecified R11.10 ; Generalized abdominal pain R10.84 and Decreased breath sounds R06.89 [place] [address] 28731- 8320 Oct, Bipolar 1 disorder, depressed, moderate F31.32 and Anxiety F41.9 [place] [address] 687090- 8796 Sep, Bipolar 1 disorder, depressed, moderate F31.32 ; Anxiety F41.9 ; Borderline personality disorder F60.3 and Polysubstance (including opioids) dependence with physiol dependence F19.20 [address] [address] 99950- 2721 Sep, Bipolar 1 disorder, depressed, moderate F31.32 and Anxiety F41.9 [address] [address] 50533- 4959 Sep, Bipolar 1 disorder, depressed, moderate F31.32 [place] [address] 37419- 5411 Sep, Bipolar 1 disorder, depressed, moderate F31.32 and Anxiety F41.9 [facility] [address] 29591 -5736 Sep, Pain of toe of right foot M79.674 [place] [address] 44391- 2283 Sep, [facility] [address] 94496 -4772 Sep, Cellulitis of right ankle L03.115 [address] [address] 53646- 4688 Sep, Bipolar 1 disorder, depressed, moderate F31.32 and Anxiety F41.9 [place] [address] 42782- 7619 Sep, [place] [address] 74775- 8751 Sep, [place] [address] 38466- 3382 Sep, Bipolar 1 disorder, depressed, moderate F31.32 and Anxiety F41.9 [facility] [id number] [place] [address] 81201- 3841 Sep, Accidental spider bite T63.301A [facility] [id number] [place] [address] 41275- 3452 Aug, Bipolar 1 disorder, depressed, moderate F31.32 ; Anxiety F41.9 ; Borderline personality disorder F60.3 and Polysubstance (including opioids) dependence with physiol dependence F19.20 [address] [address] 79884- 7797 Aug, [place] [address] 75859- 0875 Aug, Bipolar 1 disorder, depressed, moderate F31.32 and Anxiety F41.9 [place] [address] 67934- 1829 Aug, Pre-diabetes R73.03 ; Acute seasonal allergic rhinitis due to pollen J30.1 ; Hypercholesteremia E78.00 and Nausea R11.0 [place] [id number] [place] [address] 74696- 3743 Aug, [facility] [id number] [place] [address] 21990- 2299 Aug, Bipolar 1 disorder, depressed, moderate F31.32 and Anxiety F41.9 [facility] [facility] [id number] [place] [address] 74545- 3205 Aug, [facility] [facility] [id number] [place] [address] 39658- 6100 Aug, [facility] [id number] [place] [address] 42649- 3452 Aug, [facility] [facility] [id number] [place] [address] 58782- 6970 Aug, Bipolar 1 disorder, depressed, moderate F31.32 and Anxiety F41.9 [facility] [id number] [place] [address] 37563- 8836 Aug, [facility] [address] 39623 -8974 Aug, Insect bite, initial encounter W57.XXXA and Cellulitis of left lower leg L03.116 [place] [address] 30900- 0842 Aug, Bipolar 1 disorder, depressed, moderate F31.32 and Borderline personality disorder F60.[address] 12683- 4519 July, [place] [address] 59820- 5018 July, [place] [address] 99662- 6591 July, Encounter for routine adult health examination with abnormal findings Z00.01 ; History of esophageal cancer Z85.01 ; Bipolar 1 disorder, depressed, moderate F31.32 ; Anxiety F41.9 ; Acquired hypothyroidism E03.9 ; Essential hypertension I10 ; Gastroesophageal reflux disease with esophagitis K21.0 and Encounter for immunization Z23 [facility] [id number] [place] [address] 58757- 8243 July, Bipolar 1 disorder, depressed, moderate F31.32 and Anxiety F41.9 [facility] [id number] [place] [address] 51056- 8818 July, [facility] [id number] [place] [address] 07097- 3663 July, Bipolar 1 disorder, depressed, moderate F31.32 and Anxiety F41.9 [facility] [id number] [place] [address] 58217- 6096 July, Bipolar 1 disorder, depressed, moderate F31.32 [place] [address] 42850451- 5960 July, Bipolar 1 disorder, depressed, moderate F31.32 and Anxiety F41.9 [facility] [address] [place]- 7331 Jun, Bipolar 1 disorder, depressed, moderate F31.32 [facility] [address] [place]- 1773 Jun, Bipolar 1 disorder, depressed, moderate F31.32 and Borderline personality disorder F60.3 [facility] [id number] [place]- 7325 Jun, Bipolar 1 disorder, depressed, moderate F31.32 [facility] [id number] [place]- 6540 Jun, Bipolar 1 disorder, depressed, moderate F31.32 [facility] [facility] [id number] [place]- 2910 May, Bipolar 1 disorder, depressed, moderate F31.32 and Anxiety F41.9 [facility] [id number] [place] [address] 511589- 5272 May, Bipolar 1 disorder, depressed, moderate F31.32 and Anxiety F41.9 [facility] [address] [place] [address] 80928- 4635 May, Bipolar 1 disorder, depressed, moderate F31.32 and Anxiety F41.9 [facility] [address] [place] [address] 8651 May, Bipolar 1 disorder, depressed, moderate F31.32 and Borderline personality disorder F60.3 [facility] [id number] [place]- 0917 14 May, 2016 [facility] [address] [place] [address] 60241- 1266 13 May, 2016 Bipolar 1 disorder, depressed, moderate F31.32 and Anxiety F41.9 [facility] [id number] [place] [address] 12690- 5800 May, Bipolar 1 disorder, depressed, moderate F31.32 and Anxiety F41.9 [facility] [id number] [place] [address] 78846- 3414 May, [facility] [id number] [place] [address] 82266- 6266 May, Bipolar 1 disorder, depressed, moderate F31.32 [facility] [id number] [place] [address] 85203- 7454 May, Bipolar 1 disorder, depressed, moderate F31.32 and Generalized anxiety disorder F41.1 [facility] [id number] [place] [address] 03375- 4717 Apr, Bipolar 1 disorder, depressed, moderate F31.32 and Anxiety F41.9 [facility] [place] [id number] [place] [address] 34044- 0735 Apr, [facility] [place] [id number] [place] [address] 64608- 3589 Apr, Bipolar 1 disorder, depressed, moderate F31.32 and Anxiety F41.9 [facility] [address] [place] [address] 59039- 1595 Apr, Bipolar 1 disorder, depressed, moderate F31.32 and Anxiety F41.9 [facility] [place] [address] [place] [address] 85082- 7617 Apr, Bipolar affective disorder, depressed, severe F31.4 and Generalized anxiety disorder F41.1 [facility] [id number] [place] [address] 73377- 3263 Mar, Bipolar 1 disorder, depressed, moderate F31.32 and Anxiety F41.9 [facility] [address] [place] [address] 31119- 6306 Mar, Bipolar 1 disorder, depressed, moderate F31.32 and Anxiety F41.9 [facility] [address] [address]- 6797 Mar, Bipolar 1 disorder, mixed, moderate F31.62 [facility] [id number] [place] [address] 35297- 6136 Mar, [facility] [id number] [place] [address] 30055- 0306 Mar, Bipolar 1 disorder, mixed, moderate F31.62 ; Generalized anxiety disorder F41.1 and 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 [facility] [id number] [place] [address] 90461- 0211 Feb, Bipolar 1 disorder, depressed, moderate F31.32 and Anxiety F41.9 [facility] [id number] [place] [address] 44295- 2881 Feb, Bipolar 1 disorder, depressed, moderate F31.32 and 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 [facility] [id number] [place] [address] 96955- 5981 Feb, [facility] [id number] [place] [address] 01759- 4723 Feb, Bipolar 1 disorder, depressed, moderate F31.32 and Anxiety F41.9 [facility] [address] [place] [address] 81811- 8623 Feb, Bipolar 1 disorder, depressed, moderate F31.32 and Other correction (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 Z79.899 [facility] [address] [place] [address] 98283- 7242 Feb, Bipolar 1 disorder, depressed, moderate F31.32 and Anxiety F41.9 [facility] [address] [place] [address] 92182- 6169 Dec, Bipolar 1 disorder, depressed, moderate F31.32 and Anxiety F41.9 [facility] [id number] [place] [address] 67217- 2546 Oct, [facility] [address] [facility] [id number] [address]- 2546 Oct, [facility] [address] [facility] [id number] [address]- 2546 May, [facility] [address] [facility] [id number] [address]- 2546 May, [facility] [address] [facility] [id number] [address]- 2546 Mar, [facility] [address] [facility] [id number] [address] 2546 Mar, IMMUNIZATIONS No Known Immunizations SOCIAL [...] 2004 Hospitalization History [facility] 2016
--- OUTSIDE RECORDS SUMMARY | 2018-02-03 22:03 | XMS REPORT ---
Author Author GURINDER NORTON Organization [facility] Address [address] [place] [address] Care Team Providers Care Epic Anesthesia Analyst Name Role Phone GURINDER NORTON Unavailable PROBLEMS Type Condition ICD9-CM Code SGQ29-RQ Code Onset Dates Condition Status SNOMED Code Problem Gastroesophageal reflux disease with esophagitis K21.0 Active 923970338 Problem Polysubstance (including opioids) dependence with physiol dependence F19.20 Active 03793903 Problem History of esophageal cancer Z85.01 Active 154061495 Problem Seasonal allergies J30.2 Active 716258132 Problem Pre-diabetes R73.03 Active 701155043 Problem GERD (gastroesophageal reflux disease) K21.9 Active 112172785 Problem Borderline personality disorder F60.3 Active 79367604 Problem Pure hypercholesterolemia E78.00 Active 150160027 Problem Nephrolithiasis N20.0 Active 48515550 Problem STATE HEP A (ADULT) DX V05.3 Active 289931500 Problem Bipolar 1 disorder, depressed, moderate F31.32 Active 65834520 Problem Anxiety F41.9 Active 02378377 Problem Vitamin D insufficiency E55.9 Active 542772849 Problem Essential hypertension I10 Active 77263058 Problem Elevated serum creatinine R79.89 Active 343740866 Problem Acquired hypothyroidism E03.9 Active 942361261 ALLERGIES No Information ENCOUNTERS Encounter Location Date Diagnosis [facility] [id number] [address] Jan, [facility] [id number] [place] [address] 47996- 9667 Dec, [facility] [address], [place] [address] Dec, [facility] [id number] [address] Dec, [facility] [address] [place] [address] 53405- 2411 Nov, [place] [address] 30455- 5568 Nov, Bipolar 1 disorder, depressed, moderate F31.32 and Anxiety F41.9 [place] [address] 96974- 8653 Nov, Bipolar 1 disorder, depressed, moderate F31.32 [place] [id number] [place] [address] 19413- 5789 Nov, [place] [address] 51374- 7380 Nov, Bipolar 1 disorder, depressed, moderate F31.32 and Anxiety F41.9 [place] [address] 25986- 3217 Oct, Bipolar 1 disorder, depressed, moderate F31.32 ; Anxiety F41.9 ; Borderline personality disorder F60.3 ; Polysubstance (including opioids ) dependence with physiol dependence F19.20 and Other mcfp (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 Z79.899 [place] [id number] [place] [address] 23057- 6214 Oct, Bipolar 1 disorder, depressed, moderate F31.32 [facility] [id number] [place] [address] [id number] Sep, Encounter for dental examination Z01.20 [facility] [id number] [place] [address] 21156- 3519 Sep, Acute oral pain K13.79 [place] [address] 33347- 6616 Sep, Bipolar 1 disorder, depressed, moderate F31.32 [facility] [id number] [place] [address] 78638- 2503 Sep, Bipolar 1 disorder, depressed, moderate F31.32 [place] [id number] [place] [address] 51168- 4259 Sep, Bipolar 1 disorder, depressed, moderate F31.32 [place] [address] 84460- 0595 Sep, Essential hypertension I10 ; Acquired hypothyroidism E03.9 ; Anxiety F41.9 ; Chronic nausea R11.0 and Irritant contact dermatitis due to plants, except food L24.7 [place] [address] 46763- 0210 Aug, Bipolar 1 disorder, depressed, moderate F31.32 [place] [address] 99261- 9068 Aug, Bipolar 1 disorder, depressed, moderate F31.32 [place] [address] 03569- 7161 Aug, Bipolar 1 disorder, depressed, moderate F31.32 [place] [address] 82948- 5728 July, Candidal dermatitis B37.2 [place] [address] 49861- 6703 July, Acquired hypothyroidism E03.9 [place] [address] 20832- 5423 July, Bipolar 1 disorder, depressed, moderate F31.32 [facility] [address] 01157 -2690 July, Seasonal allergies J30.2 [place] [address] 17078- 3139 July, Bipolar 1 disorder, depressed, moderate F31.32 [place] [id number] [place] [address] 38579- 1813 Jun, Pre-diabetes R73.03 [place] [address] 49965658- 9854 Jun, Bipolar 1 disorder, depressed, moderate F31.32 ; Anxiety F41.9 ; Borderline personality disorder F60.3 ; Polysubstance (including opioids ) dependence with physiol dependence F19.20 and Other specified abnormal findings of blood chemistry R79.89 [place] [address] 635220- 0864 Jun, Bipolar 1 disorder, depressed, moderate F31.32 [place] [address] 4239 May, Bipolar 1 disorder, depressed, moderate F31.32 [place] [address] [place] [address]- 0487 May, Bipolar 1 disorder, depressed, moderate F31.32 [place] [address] 635223- 2651 May, [place] [address] 635227- 2786 May, [place] [address] 635227- 099 May, Bipolar 1 disorder, depressed, moderate F31.32 [place] [address] 635228- 6668 May, Bipolar 1 disorder, depressed, moderate F31.32 [place] [address] 635228- 7541 May, Other specified abnormal findings of blood chemistry R79.89 [place] [address] 635221- 3123 08 May, 2017 Essential hypertension I10 ; Acquired hypothyroidism E03.9 ; Gastroesophageal reflux disease with esophagitis K21.0 ; Hair loss L65.9 ; Hypokalemia, gastrointestinal losses E87.6 ; Pre-diabetes R73.03 ; Candidal dermatitis B37.2 and Pure hypercholesterolemia E78.00 [place] [address] [place] [address]- 0761 Apr, Bipolar 1 disorder, depressed, moderate F31.32 [place] [address] 13724- 4805 Apr, Bipolar 1 disorder, depressed, moderate F31.32 [place] [address] 80604- 2419 Apr, Bipolar 1 disorder, depressed, moderate F31.32 and Anxiety F41.9 [facility] [address] 80475 -2402 Mar, Encounter for immunization Z23 ; Fall, initial encounter W19.XXXA ; Rib pain on left side R07.81 and Left hip pain M25.552 [place] [address] 58099- 9713 Mar, Bipolar 1 disorder, depressed, moderate F31.32 and Anxiety F41.9 [place] [address] 48903- 8077 Mar, Bipolar 1 disorder, depressed, moderate F31.32 ; Anxiety F41.9 ; Borderline personality disorder F60.3 and Polysubstance (including opioids) dependence with physiol dependence F19.20 [place] [address] 02485- 2177 Mar, Bipolar 1 disorder, depressed, moderate F31.32 and Anxiety F41.9 [facility] [address] 45397 -8659 Feb, Irritant contact dermatitis, unspecified trigger L24.9 [place] [address] 26910- 9062 Feb, [place] [address] 42706- 3958 Feb, [place] [address] 39807- 0982 Feb, Bipolar 1 disorder, depressed, moderate F31.32 and Anxiety F41.9 [place] [id number] [place] [address] 86323- 3502 Feb, Acute non-recurrent maxillary sinusitis J01.00 [place] [id number] [place] [address] 21628- 0888 Feb, [place] [address] [place] [address] [id number]- 9043 Feb, Bipolar 1 disorder, depressed, moderate F31.32 [place] [id number] [place] [address] 19826- 0088 Jan, [place] [id number] [place] [address] 1151 Jan, Bipolar 1 disorder, depressed, moderate F31.32 ; Anxiety F41.9 ; Borderline personality disorder F60.3 and Polysubstance (including opioids) dependence with physiol dependence F19.20 [place] [id number] [place] [address] 71301- 0311 27 Jan, 2017 Bipolar 1 disorder, depressed, moderate F31.32 and Anxiety F41.9 [place] [id number] [place] [address] 91169- 8342 20 Jan, 2017 Bipolar 1 disorder, depressed, moderate F31.32 ; Anxiety F41.9 ; Borderline personality disorder F60.3 and Polysubstance (including opioids) dependence with physiol dependence F19.20 [place] [id number] [place] [address] 46197- 4908 13 Jan, 2017 Bipolar 1 disorder, depressed, moderate F31.32 and Anxiety F41.9 [place] [address] [address] [id number]- 6050 23 Dec, 2016 Hypokalemia, gastrointestinal losses E87.6 ; GERD ( gastroesophageal reflux disease) K21.9 and Bipolar 1 disorder, depressed, moderate F31.32 [place] [id number] [place] [address] 2546 Dec, Bipolar 1 disorder, depressed, moderate F31.32 and Anxiety F41.9 [facility] [address] 21445 -6388 Dec, [place] [id number] [place] [address] 25796- 7162 Dec, [facility] [place] [address] 47657 -4931 Dec, Fall (on) (from) other stairs and steps, initial encounter W10.8XXA ; Laceration of left lower extremity, initial encounter S81.812A ; Contusion of right knee, initial encounter S80.01XA and Contusion of right shoulder, initial encounter S40.011A [place] [address] 72901- 0160 Dec, Bipolar 1 disorder, depressed, moderate F31.32 ; Anxiety F41.9 ; Borderline personality disorder F60.3 and Polysubstance (including opioids) dependence with physiol dependence F19.20 [place] [address] 97802- 6001 Dec, Bipolar 1 disorder, depressed, moderate F31.32 and Anxiety F41.9 [place] [id number] [place] [address] 95467- 4973 Dec, [place] [address] 26333- 4024 Dec, Hospital discharge follow-up Z09 ; Nephrolithiasis N20.0 ; Essential hypertension I10 ; Gastroesophageal reflux disease with esophagitis K21.0 and Anxiety F41.9 [place] [id number] [place] [address] 87870- 5765 Nov, [facility] [id number] [place] [address] 68906 -8445 24 Nov, 2016 Dysuria R30.0 and Acute cystitis with hematuria N30.01 [facility] [id number] [place] [address] 09659 -0803 24 Nov, 2016 [place] [address] 56638- 9425 19 Nov, 2016 [place] [address] 02281- 3296 19 Nov, 2016 Gastroesophageal reflux disease with esophagitis K21.0 ; Hypercholesteremia E78.00 and Acquired hypothyroidism E03.9 [facility] [address] 54461 -2865 18 Nov, 2016 Left wrist pain M25.532 and Contusion of left wrist, initial encounter S60.212A [place] [address] 35720- 7736 18 Nov, 2016 Bipolar 1 disorder, depressed, moderate F31.32 ; Anxiety F41.9 ; Borderline personality disorder F60.3 and Polysubstance (including opioids) dependence with physiol dependence F19.20 [place] [address] 43045 -7676 15 Nov, 2016 Abdominal pain R10.9 and GERD (gastroesophageal reflux disease) K21.9 [place] [id number] [place] [address] 48241- 2991 12 Nov, 2016 Hypokalemia, gastrointestinal losses E87.6 [place] [address] 65702- 1750 11 Nov, 2016 Dehydration E86.0 ; Hypokalemia, gastrointestinal losses E87.6 and Vaginal candidiasis B37.3 [place] [address] 95667- 2447 08 Nov, 2016 Abnormal weight loss R63.4 ; Diarrhea, unspecified R19.7 ; Vomiting, unspecified R11.10 ; Generalized abdominal pain R10.84 and Decreased breath sounds R06.89 [place] [address] 40744- 8721 Oct, Bipolar 1 disorder, depressed, moderate F31.32 and Anxiety F41.9 [place] [id number] [place] [address] 38111- 4715 Sep, Bipolar 1 disorder, depressed, moderate F31.32 ; Anxiety F41.9 ; Borderline personality disorder F60.3 and Polysubstance (including opioids) dependence with physiol dependence F19.20 [place] [address] 47240- 9162 Sep, Bipolar 1 disorder, depressed, moderate F31.32 and Anxiety F41.9 [place] [address] 91451- 9235 Sep, Bipolar 1 disorder, depressed, moderate F31.32 [place] [address] 68238- 9834 Sep, Bipolar 1 disorder, depressed, moderate F31.32 and Anxiety F41.9 [facility] [address] 37795 -8883 Sep, Pain of toe of right foot M79.674 [place] [address] 31129- 3482 Sep, [facility] [id number] [place] [address] 59225 -3325 Sep, Cellulitis of right ankle L03.115 [place] [id number] [place] [address] 80277- 7947 Sep, Bipolar 1 disorder, depressed, moderate F31.32 and Anxiety F41.9 [place] [id number] [place] [address] 67544- 6523 Sep, [place] [address] 60770- 7465 Sep, [place] [address] 06453- 4173 Sep, Bipolar 1 disorder, depressed, moderate F31.32 and Anxiety F41.9 [place] [id number] [place] [address] 39759- 7660 Sep, Accidental spider bite T63.301A [facility] [address] 87637- 2349 29 Aug, 2016 Bipolar 1 disorder, depressed, moderate F31.32 ; Anxiety F41.9 ; Borderline personality disorder F60.3 and Polysubstance (including opioids) dependence with physiol dependence F19.20 [place] [id number] [place] [address] 84795- 3097 Aug, [place] [address] 97576- 0625 Aug, Bipolar 1 disorder, depressed, moderate F31.32 and Anxiety F41.9 [place] [address] 82727- 1222 Aug, Pre-diabetes R73.03 ; Acute seasonal allergic rhinitis due to pollen J30.1 ; Hypercholesteremia E78.00 and Nausea R11.0 [place] [address] 58013- 1938 Aug, [place] [id number] [place] [address] 78433- 9089 13 Aug, 2016 Bipolar 1 disorder, depressed, moderate F31.32 and Anxiety F41.9 [place] [id number] [place] [address] 41696- 2966 Aug, [place] [id number] [place] [address] 66276- 3622 Aug, [place] [address] 26019- 3701 07 Aug, 2016 [place] [id number] [place] [address] 17380- 4062 Aug, Bipolar 1 disorder, depressed, moderate F31.32 and Anxiety F41.9 [facility] [id number] [place] [address] 44541- 5433 Aug, [facility] [address] 56557 -5533 Aug, Insect bite, initial encounter W57.XXXA and Cellulitis of left lower leg L03.116 [place] [address] 38503- 2333 Aug, Bipolar 1 disorder, depressed, moderate F31.32 and Borderline personality disorder F60.3 [place] [address] 86094- 8272 July, [place] [address] 12099- 0549 July, [place] [address] 29856- 3517 July, Encounter for routine adult health examination with abnormal findings Z00.01 ; History of esophageal cancer Z85.01 ; Bipolar 1 disorder, depressed, moderate F31.32 ; Anxiety F41.9 ; Acquired hypothyroidism E03.9 ; Essential hypertension I10 ; Gastroesophageal reflux disease with esophagitis K21.0 and Encounter for immunization Z23 [place] [id number] [place] [address] 84659- 1966 July, Bipolar 1 disorder, depressed, moderate F31.32 and Anxiety F41.9 [place] [id number] [place] [address] 83900- 7559 July, [place] [id number] [place] [address] 67241- 8520 July, Bipolar 1 disorder, depressed, moderate F31.32 and Anxiety F41.9 [place] [id number] [place] [address] 44091- 2506 July, Bipolar 1 disorder, depressed, moderate F31.32 [place] [address] 58688- 5905 July, Bipolar 1 disorder, depressed, moderate F31.32 and Anxiety F41.9 [facility] [id number] [place] [address]- 9299 Jun, Bipolar 1 disorder, depressed, moderate F31.32 [facility] [id number] [place] [address] 612371- 9877 Jun, Bipolar 1 disorder, depressed, moderate F31.32 and Borderline personality disorder F60.3 [facility] [id number] [place] [address] 406581- 7203 Jun, Bipolar 1 disorder, depressed, moderate F31.32 [place] [id number] [place] [address]- 6829 Jun, Bipolar 1 disorder, depressed, moderate F31.32 [place] [id number] [place] [address] 777369- 4293 May, Bipolar 1 disorder, depressed, moderate F31.32 and Anxiety F41.9 [place] [id number] [place] [address] 46302- 4312 May, Bipolar 1 disorder, depressed, moderate F31.32 and Anxiety F41.9 [place] [id number] [place] [address] 34613- 9369 May, Bipolar 1 disorder, depressed, moderate F31.32 and Anxiety F41.9 [place] [id number] [place] [address] 88392- 7034 May, Bipolar 1 disorder, depressed, moderate F31.32 and Borderline personality disorder F60.3 [place] [id number] [place] [address]- 8164 14 May, 2016 [facility] [id number] [place] [address]- 3544 May, Bipolar 1 disorder, depressed, moderate F31.32 and Anxiety F41.9 [place] [id number] [place] [address] 15525- 2518 May, Bipolar 1 disorder, depressed, moderate F31.32 and Anxiety F41.9 [place] [address] 99435- 9905 May, [place] [id number] [place] [address] 71351- 4018 May, Bipolar 1 disorder, depressed, moderate F31.32 [place] [address] 79643- 4903 May, Bipolar 1 disorder, depressed, moderate F31.32 and Generalized anxiety disorder F41.1 [place] [address] 74725- 6934 Apr, Bipolar 1 disorder, depressed, moderate F31.32 and Anxiety F41.9 [place] [address] 30508- 3913 Apr, [place] [address] 44848- 4922 Apr, Bipolar 1 disorder, depressed, moderate F31.32 and Anxiety F41.9 [place] [id number] [place] [address] 31590- 1862 Apr, Bipolar 1 disorder, depressed, moderate F31.32 and Anxiety F41.9 [place] [id number] [place] [address] 17316- 0819 Apr, Bipolar affective disorder, depressed, severe F31.4 and Generalized anxiety disorder F41.1 [place] [id number] [place] [address] 60775- 8860 Mar, Bipolar 1 disorder, depressed, moderate F31.32 and Anxiety F41.9 [place] [id number] [place] [address] 99440- 9886 Mar, Bipolar 1 disorder, depressed, moderate F31.32 and Anxiety F41.9 [place] [address] [address]- 6573 Mar, Bipolar 1 disorder, mixed, moderate F31.62 [facility] [id number] [place] [address] 82201- 8216 Mar, [facility] [address] [place] [address] 15218- 6223 Mar, Bipolar 1 disorder, mixed, moderate F31.62 ; Generalized anxiety disorder F41.1 and Other mcfp (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 Z79.899 [facility] [address] [place] [address] 30015- 9847 Feb, Bipolar 1 disorder, depressed, moderate F31.32 and Anxiety F41.9 [place] [address] [place] [address] 07390- 0179 Feb, Bipolar 1 disorder, depressed, moderate F31.32 and Other terminal operator (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 Z79.899 [place] [address] [place] [address] 43840- 8343 Feb, [facility] [id number] [place] [address] 20101- 9741 Feb, Bipolar 1 disorder, depressed, moderate F31.32 and Anxiety F41.9 [place] [address] [address]- 9925 Feb, Bipolar 1 disorder, depressed, moderate F31.32 and Other terminal operator (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 Z79.899 [facility] [address] [place] [address] 89299- 8714 Feb, Bipolar 1 disorder, depressed, moderate F31.32 and Anxiety F41.9 [facility] [address]- 8653 Dec, Bipolar 1 disorder, depressed, moderate F31.32 and Anxiety F41.9 [facility] [address] [place] [address] 96506- 6302 Oct, [facility] [address] [facility] [id number] [place] [address]- 2546 Oct, [facility] [address] [facility] [id number] [address]- 2546 May, [facility] [address] [facility] [id number] [address]- 2546 May, [facility] [address] [facility] [id number], [place] [address]- 2546 Mar, [facility] [address] [facility] [id number], [place] [address]- 2546 Mar, IMMUNIZATIONS No Known Immunizations SOCIAL HISTORY Never Assessed REASON FOR VISIT PLAN OF CARE Activity Details Follow Up 1 Week Reason: Follow-up VITAL SIGNS MEDICATIONS Unknown Medications RESULTS No Results PROCEDURES Procedure Date Ordered Result Body Site [facility] VISIT MENTAL HEALTH ESTAB PT Nov 07, 2017 Psychotherapy, patient &/family, 30 minutes, established patient Nov 07, 2017 INSTRUCTIONS MEDICATIONS ADMINISTERED No Known [...] Cancer Head and Neck 2004 Hospitalization History [facility] Psychiatric Admission 2015
[2018-02-03 22:04] LABS: BASOPHILS % (AUTO) 0 % (0-10); EOSINOPHILS # (AUTO) 0.1 10^3/uL (0.0-0.3); EOSINOPHILS % (AUTO) 1 % (0-10); HEMATOCRIT 42 % (35-52); HEMOGLOBIN 13.8 G/DL (11.5-16.0); LYMPHOCYTES # (AUTO) 1.9 X 10^3 (1.0-4.0); LYMPHOCYTES % (AUTO) 34 % (12-44); MEAN CORPUSCULAR HEMOGLOBIN 28 PG (25-34); MEAN CORPUSCULAR HGB CONC 33 G/DL (32-36); MEAN CORPUSCULAR VOLUME 84 FL (80-99); MEAN PLATELET VOLUME 9.7 FL (7.4-10.4); MONOCYTES # (AUTO) 0.6 X 10^3 (0.0-1.0); MONOCYTES % (AUTO) 11 % (0-12); NEUTROPHILS % (AUTO) 54 % (42-75); PLATELET COUNT 198 10^3/uL (130-400); RED BLOOD COUNT 4.92 10^6/uL (4.35-5.85); RED CELL DISTRIBUTION WIDTH 14.6 % (10.0-14.5); WHITE BLOOD COUNT 5.6 10^3/uL (4.3-11.0)
[2018-02-03 22:17] LABS: PROTHROMBIN TIME PATIENT 12.9 SEC (12.2-14.7)
[2018-02-03 22:26] LABS: ALANINE AMINOTRANSFERASE 14 U/L (0-55); ALBUMIN 4.3 GM/DL (3.2-4.5); ALKALINE PHOSPHATASE 75 U/L (40-136); BILIRUBIN,TOTAL 0.2 MG/DL (0.1-1.0); BUN/CREATININE RATIO 14; CALCIUM 9.6 MG/DL (8.5-10.1); CARBON DIOXIDE 24 MMOL/L (21-32); CHLORIDE 104 MMOL/L (98-107); CREATININE SERUM 0.74 MG/DL (0.60-1.30); GFR ESTIMATED > 60; GLUCOSE 108 MG/DL (70-105); MAGNESIUM 2.3 MG/DL (1.8-2.4); POTASSIUM 3.7 MMOL/L (3.6-5.0); SODIUM 139 MMOL/L (135-145); TOTAL PROTEIN 6.9 GM/DL (6.4-8.2)
[2018-02-03] MEDS ORDERED: KETOROLAC 30 MG/ML VIAL IVP STA (22:29)
[2018-02-03 22:45] LABS: TSH (THYROID ANALYZER) 4.72 UIU/ML (0.35-4.94)
--- OUTSIDE RECORDS SUMMARY | 2018-02-03 22:49 | XMS REPORT | Continuity of Care Document ---
Author Author [facility] Organization [facility] Address Unknown Phone Unavailable Allergies Active Description Code Type Severity Reaction Onset Reported/Identified Relationship to Patient Clinical Status Yes Iodinated Contrast Media - IV Dye [id number] Drug Allergy Mild N/A 2015 Yes Iodinated Contrast Media - Oral and [id number] Drug Allergy Mild N/A 2016 Yes codeine [id number] Drug Allergy Moderate RASH/SWELLING; 12/06/2016 Yes Iodinated Contrast- Oral and IV Dye [id number] Drug Allergy Mild N/A 2016 Yes adhesive tape [id number] Drug Allergy Unknown N/A 12/06/2016 Yes latex [id number] Drug Allergy Unknown N/A 12/06/2016 Yes Penicillins [id number] Drug Allergy Mild NAUSEA/VOMITING 12/07/2016 Yes Iodinated Contrast- Oral and IV Dye [id number] Drug Allergy Severe HIVES Medications There is [...] MENT OF HEMORR 01/06/2012 Ot 568.0 PERITONEAL [id number]/INF 03/26/2012 Ot V10.21 HX- LARYNGEAL MALIGNANCY 03/26/2012 [...] 786.59 CHEST PAIN NEC 08/31/2013 MARTHA LEE PLANNING DIRECTOR Ot 562.10 DIVERTICULOSIS COLON (W/O MENT OF HEMORR 08/31/2013 MARTHA LEE PLANNING DIRECTOR Ot 564.00 UNSPEC CONSTIPATION 08/31/2013 MARTHA LEE PLANNING DIRECTOR Ot 729.1 MYALGIA AND MYOSITIS NOS 08/31/2013 MARTHA LEE PLANNING DIRECTOR Ot 789.04 ABDOMINAL PAIN, LEFT LOWER QUADRANT 08/31/2013 MARTHA LEE PLANNING DIRECTOR Ot V58.67 LONG-TERM (CURRENT) USE OF INSULIN [...] King Ot 784.59 06/30/2014 DELMAR LEOS, NATHALIE King Ot V58.69 07/02/2014 VIRA ABRAHAM [facility] Ot 729.5 07/25/2014 DELMAR LEOS, NATHALIE King Ot 272.0 07/25/2014 DELMAR LEOS, NATHALIE King Ot 300.00 07/25/2014 DELMAR LEOS, NATHALIE King Ot 530.3 07/25/2014 DELMAR LEOS, NATHALIE King Ot 530.81 07/25/2014 NATHALIE JACOBSEN MD Ot V58.69 07/25/2014 VIRA ABRAHAM TOLL GATE KEEPER Ot 729.5 07/25/2014 NATHALIE JACOBSEN MD Ot [...] JACOBSEN MD Ot V58.69 08/04/2014 BLOSSOM HURD PLANNING DIRECTOR Ot 786.2 08/04/2014 PREM ESTEVEZ TOLL GATE KEEPER Ot V10.21 08/04/2014 PREM ESTEVEZ TOLL GATE KEEPER Ot V12.51 08/04/2014 PREM ESTEVEZ TOLL GATE KEEPER Ot V58.69 08/04/2014 PREM ESTEVEZ TOLL GATE KEEPER Ot V67.1 08/04/2014 PREM ESTEVEZ TOLL GATE KEEPER Ot V67.2 08/04/2014 PREM ESTEVEZ TOLL GATE KEEPER Ot 161.1 08/04/2014 PREM ESTEVEZ TOLL GATE KEEPER Ot 728.87 08/04/2014 PREM ESTEVEZ TOLL GATE KEEPER Ot 780.4 08/05/2014 NATHALIE JACOBSEN MD Ot [...] V67.1 08/08/2014 Ot V67.2 08/19/2014 PREM ESTEVEZ TOLL GATE KEEPER Ot V10.21 08/19/2014 PREM ESTEVEZ TOLL GATE KEEPER Ot V12.51 08/19/2014 PREM ESTEVEZ TOLL GATE KEEPER Ot V58.69 08/19/2014 PREM ESTEVEZ TOLL GATE KEEPER Ot V67.1 08/19/2014 PREM ESTEVEZ TOLL GATE KEEPER Ot V67.2 08/19/2014 PREM ESTEVEZ TOLL GATE KEEPER Ot 161.1 08/19/2014 PREM ESTEVEZ TOLL GATE KEEPER Ot 728.87 08/19/2014 PREM ESTEVEZ TOLL GATE KEEPER Ot 780.4 08/25/2014 VIRA ABRAHAM TOLL GATE KEEPER Ot 719.41 08/27/2014 BLOSSOM HURD APRN Ot 786.2 08/29/2014 BLOSSOM HURD APRN Ot 786.2 09/12/2014 VIRA ABRAHAM TOLL GATE KEEPER Ot 719.41 09/19/2014 VIRA ABRAHAM TOLL GATE KEEPER Ot 719.41 09/25/2014 Ot 784.2 09/25/2014 Ot [...] 780.4 12/05/2014 Ot 784.0 12/05/2014 PREM ESTEVEZ TOLL GATE KEEPER Ot 195.0 12/05/2014 VIRA ABRHAAM TOLL GATE KEEPER Ot V76.12 12/05/2014 Ot V68.01 12/05/2014 Ot V82.89 12/05/2014 JASON BENITEZ N Ot V10.21 12/05/2014 ELIJASON FULTON N Ot V12.51 12/05/2014 ELIJASON FULTON N Ot V58.69 12/05/2014 JASON BENITEZ N Ot V67.1 12/05/2014 JASON BENITEZ N Ot V67.2 12/05/2014 VIRA ABRAHAM TOLL GATE KEEPER Ot 729.1 12/05/2014 VIRA ABRAHAM TOLL GATE KEEPER Ot 784.0 12/05/2014 VIRA ABRAHAM TOLL GATE KEEPER Ot 787.02 12/05/2014 VIRA ABRAHAM TOLL GATE KEEPER Ot 919.4 12/05/2014 VIRA ABRAHAM TOLL GATE KEEPER Ot E000.8 12/05/2014 VIRA ABRAHAM TOLL GATE KEEPER Ot E906.4 12/05/2014 LANDY LEOS, ASTON Andersen Ot 786.09 12/05/2014 LANDY LEOS, ASTON Andersen Ot 787.20 12/05/2014 PREM ESTEVEZ TOLL GATE KEEPER Ot V10.21 12/05/2014 PREM ESTEVEZ TOLL GATE KEEPER Ot V12.51 12/05/2014 PREM ESTEVEZ TOLL GATE KEEPER Ot V58.69 12/05/2014 PREM ESTEVEZ S TOLL GATE KEEPER Ot V67.1 12/05/2014 PREM ESTEVEZ S TOLL GATE KEEPER Ot V67.2 12/05/2014 PREM ESTEVEZ S TOLL GATE KEEPER Ot 530.3 12/05/2014 PREM ESTEVEZ S TOLL GATE KEEPER Ot 780.4 12/05/2014 PREM ESTEVEZ S TOLL GATE KEEPER Ot 784.0 12/05/2014 PREM ESTEVEZ S TOLL GATE KEEPER Ot V10.21 12/05/2014 PREM ESTEVEZ S TOLL GATE KEEPER Ot V12.51 12/05/2014 PREM ESTEVEZ S TOLL GATE KEEPER Ot V58.69 12/05/2014 PREM ESTEVEZ TOLL GATE KEEPER Ot V67.1 12/05/2014 PREM ESTEVEZ TOLL GATE KEEPER Ot V67.2 12/05/2014 PREM ESTEVEZ TOLL GATE KEEPER Ot 195.0 12/05/2014 PREM ESTEVEZ TOLL GATE KEEPER Ot 780.4 12/05/2014 PREM ESTEVEZ TOLL GATE KEEPER Ot 784.0 12/05/2014 PREM ESTEVEZ TOLL GATE KEEPER Ot V12.54 12/05/2014 VIRA ABRAHAM TOLL GATE KEEPER Ot 719.41 12/05/2014 VIRA ABRAHAM TOLL GATE KEEPER Ot E000.8 12/05/2014 VIRA ABRAHAM TOLL GATE KEEPER Ot E849.0 12/05/2014 VIRA ABRAHAM TOLL GATE KEEPER Ot E888.9 12/05/2014 DEEPAK LEOS, JAJA Rushing [...] JACOBSEN MD Ot V58.69 12/05/2014 VIRA ABRAHAM TOLL GATE KEEPER Ot 729.5 12/05/2014 PREM ESTEVEZ TOLL GATE KEEPER Ot V10.21 12/05/2014 PREM ESTEVEZ TOLL GATE KEEPER Ot V12.51 12/05/2014 PREM ESTEVEZ TOLL GATE KEEPER Ot V58.69 12/05/2014 PREM ESTEVEZ S TOLL GATE KEEPER Ot V67.1 12/05/2014 PREM ESTEVEZ S TOLL GATE KEEPER Ot V67.2 12/05/2014 PREM ESTEVEZ S TOLL GATE KEEPER Ot 161.1 12/05/2014 PREM ESTEVEZ TOLL GATE KEEPER Ot 728.87 12/05/2014 PREM ESTEVEZ TOLL GATE KEEPER Ot 780.4 12/05/2014 BLOSSOM HURD APRN Ot 786.2 12/05/2014 DELMAR LEOS, NATHALIE King Ot 272.0 12/05/2014 DELMAR LEOS, NATHALIE King Ot 300.00 12/05/2014 DELMAR LEOS, NATHALIE King Ot 530.3 12/05/2014 DELMAR LEOS, NATHALIE J Ot 530.81 12/05/2014 NATHALIE JACOBSEN MD Ot V58.69 12/05/2014 VIRA ABRAHAM TOLL GATE KEEPER Ot 719.41 12/09/2014 JAJA SOTELO MD Ot [...] 12/09/2014 JAJA SOTELO MD Ot Z79.899 OTHER JAIL (CURRENT) DRUG THERAPY 12/09/2014 JAJA SOTELO MD [...] Ot R10.9 UNSPECIFIED ABDOMINAL PAIN 01/05/2015 JAJA SOTELO MD Ot R10.9 01/05/2015 JAJA SOTELO MD [...] OTHER SPECIFIED PROBLEMS RELATED TO PRIM 03/27/2015 JATIN LEOS, DAVID Bazzi Ot M94.0 CHONDROCOSTAL JUNCTION [...] HELMS APRN Ot M25.561 06/09/2015 LIA HELMS PLANNING DIRECTOR Ot M25.551 06/09/2015 LIA HELMS PLANNING DIRECTOR Ot M25.561 06/22/2015 LIA HELMS PLANNING DIRECTOR Ot R06.02 SHORTNESS OF BREATH 06/23/2015 JACINTA LEOS, BROCK T Ot S60.221A CONTUSION OF RIGHT HAND, INITIAL ENCOUNT 06/23/2015 JACINTA LEOS, BROCK T Ot W22.03XA WALKED INTO FURNITURE, INITIAL ENCOUNTER 06/23/2015 JACINTA LEOS, BROCK T Ot Y92.[address] IN [facility] (PRIVATE 06/23/2015 BROCK WORKMAN MD T Ot Y99.8 OTHER EXTERNAL CAUSE STATUS 06/24/2015 BROCK WORKMAN MD T Ot S60.221A CONTUSION OF RIGHT HAND, INITIAL ENCOUNT 06/24/2015 TEJAS WORKMAN MDUA T Ot W22.03XA WALKED INTO FURNITURE, INITIAL ENCOUNTER 06/24/2015 BROCK WORKMAN MD T Ot Y92.[address] [facility] 06/24/2015 JACINTA LEOS, BROCK T Ot Y99.8 OTHER EXTERNAL CAUSE STATUS 06/29/2015 JACINTA LEOS, BROCK T Ot S60.221A CONTUSION OF RIGHT HAND, INITIAL ENCOUNT 06/29/2015 BROCK WORKMAN MD T Ot W22.03XA WALKED INTO FURNITURE, INITIAL ENCOUNTER 06/29/2015 BROCK WORKMAN MD T Ot Y92.[address] [facility] 06/29/2015 BROCK WORKMAN MD T Ot Y99.8 OTHER EXTERNAL CAUSE STATUS 07/09/2015 LIA HELMS PLANNING DIRECTOR Ot R06.02 SHORTNESS OF BREATH 07/27/2015 LIA HELMS PLANNING DIRECTOR Ot R00.2 PALPITATIONS 07/27/2015 LIA HELMS PLANNING DIRECTOR Ot R06.02 SHORTNESS OF BREATH 08/05/2015 LIA HELMS PLANNING DIRECTOR Ot R00.2 PALPITATIONS 08/05/2015 LIA HELMS PLANNING DIRECTOR Ot R06.02 SHORTNESS OF BREATH 08/07/2015 NATHALIE [...] OF SITE OF LIP, 09/24/2015 LIA HELMS PLANNING DIRECTOR Ot R00.2 PALPITATIONS 09/24/2015 LIA HELMS PLANNING DIRECTOR Ot R06.02 SHORTNESS OF BREATH 01/04/2016 Ot [...] 04/19/2016 Ot 784.0 HEADACHE 04/19/2016 PREM ESTEVEZ TOLL GATE KEEPER Ot 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 04/19/2016 VIRA ABRAHAM TOLL GATE KEEPER Ot V76.12 OTH SCREEN MAMMO-MALIGN NEOPLASM OF BERNABE 04/19/2016 Ot V68.01 DISABILITY EXAMINATION 04/19/2016 Ot V82.89 SCREEN FOR OTH SPECIF CONDITIONS 04/19/2016 JASON BENITEZ Ot V10.21 HX-LARYNGEAL MALIGNANCY 04/19/2016 JASON BENITEZ Ot V12.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 04/19/2016 JASON BENITEZ Ot V58.69 OTH MED,LT,CURRENT USE 04/19/2016 JASON BENITEZ Ot V67.1 RADIOTHERAPY FOLLOW-UP 04/19/2016 JASON BENITEZ Ot V67.2 CHEMOTHERAPY FOLLOW-UP 04/19/2016 VIRA ABRAHAM TOLL GATE KEEPER Ot 729.1 MYALGIA AND MYOSITIS NOS 04/19/2016 VIRA ABRAHAM TOLL GATE KEEPER Ot 784.0 HEADACHE 04/19/2016 VIRA ABRAHAM TOLL GATE KEEPER Ot 787.02 NAUSEA ALONE 04/19/2016 VIRA ABRAHAM TOLL GATE KEEPER Ot 919.4 INSECT BITE NEC 04/19/2016 VIRA ABRAHAM TOLL GATE KEEPER Ot E000.8 OTHER EXTERNAL CAUSE STATUS 04/19/2016 VIRA ABRAHAM TOLL GATE KEEPER Ot E906.4 NONVENOM ARTHROPOD BITE 04/19/2016 LANDY LEOS, ASTON P Ot 786.09 RESPIRATORY ABNORM NEC 04/19/2016 LANDY LEOS, ASTON Andersen Ot 787.20 DYSPHAGIA, UNSPECIFIED 04/19/2016 PREM ESTEVEZ TOLL GATE KEEPER Ot V10.21 HX-LARYNGEAL MALIGNANCY 04/19/2016 PREM ESTEVEZ S TOLL GATE KEEPER Ot V12.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 04/19/2016 PREM ESTEVEZ S TOLL GATE KEEPER Ot V58.69 OTH MED,LT,CURRENT USE 04/19/2016 PREM ESTEVEZ TOLL GATE KEEPER Ot V67.1 RADIOTHERAPY FOLLOW-UP 04/19/2016 PREM ESTEVEZ TOLL GATE KEEPER Ot V67.2 CHEMOTHERAPY FOLLOW-UP 04/19/2016 PREM ESTEVEZ TOLL GATE KEEPER Ot 530.3 ESOPHAGEAL STRICTURE 04/19/2016 PREM ESTEVEZ TOLL GATE KEEPER Ot 780.4 DIZZINESS AND GIDDINESS 04/19/2016 PREM ESTEVEZ TOLL GATE KEEPER Ot 784.0 HEADACHE 04/19/2016 PREM ESTEVEZ TOLL GATE KEEPER Ot V10.21 HX-LARYNGEAL MALIGNANCY 04/19/2016 PREM ESTEVEZ TOLL GATE KEEPER Ot V12.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 04/19/2016 PREM ESTEVEZ TOLL GATE KEEPER Ot V58.69 OTH MED,LT,CURRENT USE 04/19/2016 PREM ESTEVEZ S TOLL GATE KEEPER Ot V67.1 RADIOTHERAPY FOLLOW-UP 04/19/2016 PREM ESTEVEZ S TOLL GATE KEEPER Ot V67.2 CHEMOTHERAPY FOLLOW-UP 04/19/2016 PREM ESTEVEZ TOLL GATE KEEPER Ot 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 04/19/2016 PREM ESTEVEZ S TOLL GATE KEEPER Ot 780.4 DIZZINESS AND GIDDINESS 04/19/2016 PREM ESTEVEZ S TOLL GATE KEEPER Ot 784.0 HEADACHE 04/19/2016 PREM ESTEVEZ TOLL GATE KEEPER Ot V12.54 PERSONAL HX OF TIA, CEREBRAL INFARCTION 04/19/2016 VIRA ABRAHAM TOLL GATE KEEPER Ot 719.41 JOINT PAIN-SHLDER 04/19/2016 VIRA ABRAHAM TOLL GATE KEEPER Ot E000.8 OTHER EXTERNAL CAUSE STATUS 04/19/2016 JARAD VIRA Titus TOLL GATE KEEPER Ot E849.0 ACCIDENT IN HOME 04/19/2016 VIRA ABRAHAM TOLL GATE KEEPER Ot E888.9 FALL NOS 04/19/2016 DEEPAK LEOS, JAJA Rushing Ot V76.12 OTH SCREEN MAMMO-MALIGN NEOPLASM OF BERNABE 04/19/2016 SHWETA DPM, ERLIN Q Ot 735.0 HALLUX VALGUS 04/19/2016 SHWETA DPM, ERLIN Q Ot V72.84 EXAM PRE-OPERATIVE NOS 04/19/2016 SHWETA DPM, ERLIN Q Ot V74.8 SCREEN-BACTERIAL DIS NEC 04/19/2016 JASON BENITEZ Ot V10.21 HX-LARYNGEAL MALIGNANCY 04/19/2016 JASON BENITEZ Ot V12.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 04/19/2016 JASON BNEITEZ Ot V58.69 OTH MED,LT,CURRENT USE 04/19/2016 JASON [...] V58.69 OTH MED,LT,CURRENT USE 04/19/2016 VIRA ABRAHAM TOLL GATE KEEPER Ot 729.5 PAIN IN LIMB 04/19/2016 PREM ESTEVEZ TOLL GATE KEEPER Ot V10.21 HX-LARYNGEAL MALIGNANCY 04/19/2016 PREM ESTEVEZ TOLL GATE KEEPER Ot V12.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 04/19/2016 PREM ESTEVEZ TOLL GATE KEEPER Ot V58.69 OTH MED,LT,CURRENT USE 04/19/2016 ESTEVEZPREM Jo TOLL GATE KEEPER Ot V67.1 RADIOTHERAPY FOLLOW-UP 04/19/2016 PREM ESTEVEZ TOLL GATE KEEPER Ot V67.2 CHEMOTHERAPY FOLLOW-UP 04/19/2016 PREM ESTEVEZ TOLL GATE KEEPER Ot 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 04/19/2016 PREM ESTEVEZ TOLL GATE KEEPER Ot 728.87 MUSCLE WEAKNESS (GENERALIZED) 04/19/2016 PREM ESTEVEZ TOLL GATE KEEPER Ot 780.4 DIZZINESS AND GIDDINESS 04/19/2016 BLOSSOM HURD APRN Ot 786.2 COUGH 04/19/2016 NATHALIE JACOBSEN MD Ot 272.0 PURE HYPERCHOLESTEROLEM 04/19/2016 NATHALIE JACOBSEN MD Ot 300.00 ANXIETY STATE NOS 04/19/2016 NATHALIE JACOBSEN MD Ot 530.3 ESOPHAGEAL STRICTURE 04/19/2016 NATAHLIE JACOBSEN MD Ot 530.81 ESOPHAGEAL REFLUX 04/19/2016 NATHALIE JACOBSEN MD Ot V58.69 OTH MED,LT,CURRENT USE 04/19/2016 VIRA ABRAHAM TOLL GATE KEEPER Ot 719.41 JOINT PAIN-SHLDER 04/19/2016 JAJA SOTELO MD Ot R10.9 UNSPECIFIED ABDOMINAL PAIN 04/19/2016 JAJA SOTELO MD Ot R74.8 ABNORMAL LEVELS OF OTHER SERUM ENZYMES 04/19/2016 LIA HELMS PLANNING DIRECTOR Ot M25.551 PAIN IN RIGHT HIP 04/19/2016 LIA HELMS PLANNING DIRECTOR Ot M25.561 PAIN IN RIGHT KNEE 04/19/2016 LIA HELMS PLANNING DIRECTOR Ot R06.02 SHORTNESS OF BREATH 04/19/2016 ASTON BILL MD Ot R49.0 DYSPHONIA 04/19/2016 ASTON BILL MD, Ot 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, 04/19/2016 ASTON BILL MD Ot R06.02 SHORTNESS OF BREATH 04/19/2016 LANDY LEOS, ASTON Andersen Ot R49.0 DYSPHONIA 04/19/2016 ASTON BILL MD Ot 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, 04/19/2016 LIA HELMS PLANNING DIRECTOR Ot R00.2 PALPITATIONS 04/19/2016 LIA HELMS PLANNING DIRECTOR Ot R06.02 SHORTNESS OF BREATH 05/19/2016 VIRA ABRAHAM TOLL GATE KEEPER Ot R22.0 LOCALIZED SWELLING, MASS AND LUMP, HEAD 06/18/2016 MARTHA LEE APRN Ot I10 ESSENTIAL (PRIMARY) HYPERTENSION 06/18/2016 MARTHA LEE APRN Ot R11.2 NAUSEA WITH VOMITING, UNSPECIFIED 06/18/2016 MARTHA LEE APRN Ot R51 HEADACHE 06/18/2016 MARTHA LEE APRN Ot Z79.899 OTHER JAIL (CURRENT) DRUG THERAPY 06/20/2016 MARTHA LEE APRN Ot I10 ESSENTIAL (PRIMARY) HYPERTENSION 06/20/2016 MARTHA LEE APRN Ot R11.2 NAUSEA WITH VOMITING, UNSPECIFIED 06/20/2016 MARTHA LEE APRN Ot R51 HEADACHE 06/20/2016 MARTHA LEE APRN Ot Z79.899 OTHER JAIL (CURRENT) DRUG THERAPY 06/25/2016 MARTHA LEE APRN Ot I10 ESSENTIAL (PRIMARY) HYPERTENSION 06/25/2016 MARTHA LEE APRN Ot R11.2 NAUSEA WITH VOMITING, UNSPECIFIED 06/25/2016 MARTHA LEE APRN Ot R51 HEADACHE 06/25/2016 MARTHA LEE APRN Ot Z79.899 OTHER JAIL (CURRENT) DRUG THERAPY 08/03/2016 Ot V10.21 HX- [...] 08/03/2016 Ot 784.0 HEADACHE 08/03/2016 PREM ESTEVEZ TOLL GATE KEEPER Ot 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 08/03/2016 VIRA ABRAHAM TOLL GATE KEEPER Ot V76.12 OTH SCREEN MAMMO-MALIGN NEOPLASM OF BERNABE 08/03/2016 Ot V68.01 DISABILITY EXAMINATION 08/03/2016 Ot V82.89 SCREEN FOR OTH SPECIF CONDITIONS 08/03/2016 JASON BENITEZ Ot V10.21 HX-LARYNGEAL MALIGNANCY 08/03/2016 JASON BENITEZ Ot V12.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 08/03/2016 JASON BENITEZ Ot V58.69 OTH MED,LT,CURRENT USE 08/03/2016 JASON BENITEZ Ot V67.1 RADIOTHERAPY FOLLOW-UP 08/03/2016 JASON BENITEZ N Ot V67.2 CHEMOTHERAPY FOLLOW-UP 08/03/2016 VIRA ABRAHAM TOLL GATE KEEPER Ot 729.1 MYALGIA AND MYOSITIS NOS 08/03/2016 VIRA ABRAHAM TOLL GATE KEEPER Ot 784.0 HEADACHE 08/03/2016 VIRA ABRAHAM TOLL GATE KEEPER Ot 787.02 NAUSEA ALONE 08/03/2016 VIRA ABRAHAM TOLL GATE KEEPER Ot 919.4 INSECT BITE NEC 08/03/2016 VIRA ABRAHAM TOLL GATE KEEPER Ot E000.8 OTHER EXTERNAL CAUSE STATUS 08/03/2016 VIRA ABRAHAM TOLL GATE KEEPER Ot E906.4 NONVENOM ARTHROPOD BITE 08/03/2016 LANDY LEOS, ASTON Andersen Ot 786.09 RESPIRATORY ABNORM NEC 08/03/2016 ASTON BILL MD Ot 787.20 DYSPHAGIA, UNSPECIFIED 08/03/2016 PREM ESTEVEZ TOLL GATE KEEPER Ot V10.21 HX-LARYNGEAL MALIGNANCY 08/03/2016 PREM ESTEVEZ TOLL GATE KEEPER Ot V12.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 08/03/2016 PREM ESTEVEZ TOLL GATE KEEPER Ot V58.69 OTH MED,LT,CURRENT USE 08/03/2016 PREM ESTEVEZ TOLL GATE KEEPER Ot V67.1 RADIOTHERAPY FOLLOW-UP 08/03/2016 PREM ESTEVEZ TOLL GATE KEEPER Ot V67.2 CHEMOTHERAPY FOLLOW-UP 08/03/2016 PREM ESTEVEZ TOLL GATE KEEPER Ot 530.3 ESOPHAGEAL STRICTURE 08/03/2016 PREM SETEVEZ TOLL GATE KEEPER Ot 780.4 DIZZINESS AND GIDDINESS 08/03/2016 PREM ESTEVEZ TOLL GATE KEEPER Ot 784.0 HEADACHE 08/03/2016 PREM ESTEVEZ TOLL GATE KEEPER Ot V10.21 HX-LARYNGEAL MALIGNANCY 08/03/2016 PREM ESTEVEZ TOLL GATE KEEPER Ot V12.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 08/03/2016 PREM ESTEVEZ TOLL GATE KEEPER Ot V58.69 OTH MED,LT,CURRENT USE 08/03/2016 PREM ESTEVEZ TOLL GATE KEEPER Ot V67.1 RADIOTHERAPY FOLLOW-UP 08/03/2016 PREM ESTEVEZ TOLL GATE KEEPER Ot V67.2 CHEMOTHERAPY FOLLOW-UP 08/03/2016 PREM ESTEVEZ TOLL GATE KEEPER Ot 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 08/03/2016 PREM ESTEVEZ TOLL GATE KEEPER Ot 780.4 DIZZINESS AND GIDDINESS 08/03/2016 PREM ESTEVEZ TOLL GATE KEEPER Ot 784.0 HEADACHE 08/03/2016 PREM ESTEVEZ TOLL GATE KEEPER Ot V12.54 PERSONAL HX OF TIA, CEREBRAL INFARCTION 08/03/2016 VIRA ABARHAM TOLL GATE KEEPER Ot 719.41 JOINT PAIN-SHLDER 08/03/2016 VIRA ABRAHAM TOLL GATE KEEPER Ot E000.8 OTHER EXTERNAL CAUSE STATUS 08/03/2016 VIRA ABRAHAM TOLL GATE KEEPER Ot E849.0 ACCIDENT IN HOME 08/03/2016 VIRA ABRAHAM TOLL GATE KEEPER Ot E888.9 FALL NOS 08/03/2016 DEEPAK LEOS, JAJA Rushing Ot V76.12 OTH [...] V58.69 OTH MED,LT,CURRENT USE 08/03/2016 VIRA ABRAHAM TOLL GATE KEEPER Ot 729.5 PAIN IN LIMB 08/03/2016 PREM ESTEVEZ TOLL GATE KEEPER Ot V10.21 HX-LARYNGEAL MALIGNANCY 08/03/2016 PREM ESTEVEZP Ot V12.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 08/03/2016 PREM ESTEVEZP Ot V58.69 OTH MED,LT,CURRENT USE 08/03/2016 PREM ESTEVEZ TOLL GATE KEEPER Ot V67.1 RADIOTHERAPY FOLLOW-UP 08/03/2016 PREM ESTEVEZ TOLL GATE KEEPER Ot V67.2 CHEMOTHERAPY FOLLOW-UP 08/03/2016 PREM ESTEVEZ TOLL GATE KEEPER Ot 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 08/03/2016 PREM ESTEVEZ TOLL GATE KEEPER Ot 728.87 MUSCLE WEAKNESS (GENERALIZED) 08/03/2016 PREM ESTEVEZ TOLL GATE KEEPER Ot 780.4 DIZZINESS AND GIDDINESS 08/03/2016 BLOSSOM HURD PLANNING DIRECTOR Ot 786.2 COUGH 08/03/2016 NATHALIE JACOBSEN MD [...] OF OTHER SERUM ENZYMES 08/03/2016 LIA HELMS PLANNING DIRECTOR Ot M25.551 PAIN IN RIGHT HIP 08/03/2016 LIA HELMS PLANNING DIRECTOR Ot M25.561 PAIN IN RIGHT KNEE 08/03/2016 [...] OF SITE OF LIP, 08/03/2016 LIA HELMS PLANNING DIRECTOR Ot R00.2 PALPITATIONS 08/03/2016 LIA HELMS APRN [...] V58.69 OTH MED,LT,CURRENT USE 08/11/2016 LIA HELMS PLANNING DIRECTOR Ot R00.2 PALPITATIONS 08/11/2016 LIA HELMS PLANNING DIRECTOR Ot R06.02 SHORTNESS OF BREATH 08/11/2016 Ot [...] 08/11/2016 Ot 784.0 HEADACHE 08/11/2016 PREM ESTEVEZ TOLL GATE KEEPER Ot 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 08/11/2016 VIRA ABRAHAM TOLL GATE KEEPER Ot V76.12 OTH SCREEN MAMMO-MALIGN NEOPLASM OF BERNABE 08/11/2016 Ot V68.01 DISABILITY EXAMINATION 08/11/2016 Ot V82.89 SCREEN FOR OTH SPECIF CONDITIONS 08/11/2016 JASON BENITEZ Ot V10.21 HX-LARYNGEAL MALIGNANCY 08/11/2016 JASON BENITEZ Ot V12.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 08/11/2016 JASON BENITEZ Ot V58.69 OTH MED,LT,CURRENT USE 08/11/2016 JASON BENITEZ Ot V67.1 RADIOTHERAPY FOLLOW-UP 08/11/2016 JASON BENITEZ Ot V67.2 CHEMOTHERAPY FOLLOW-UP 08/11/2016 JARAD VIRA M TOLL GATE KEEPER Ot 729.1 MYALGIA AND MYOSITIS NOS 08/11/2016 JARAD VIRA M TOLL GATE KEEPER Ot 784.0 HEADACHE 08/11/2016 JARADVIRA TOLL GATE KEEPER Ot 787.02 NAUSEA ALONE 08/11/2016 ABRAHAMVIRA TOLL GATE KEEPER Ot 919.4 INSECT BITE NEC 08/11/2016 JARADVIRA Ariela TOLL GATE KEEPER Ot E000.8 OTHER EXTERNAL CAUSE STATUS 08/11/2016 JARADVIRA TOLL GATE KEEPER Ot E906.4 NONVENOM ARTHROPOD BITE 08/11/2016 LANDY LEOS, ASTON Andersen Ot 786.09 RESPIRATORY ABNORM NEC 08/11/2016 ASTON BILL MD Ot 787.20 DYSPHAGIA, UNSPECIFIED 08/11/2016 PREM ESTEVEZ TOLL GATE KEEPER Ot V10.21 HX-LARYNGEAL MALIGNANCY 08/11/2016 PREM ESTEVEZP Ot V12.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 08/11/2016 PREM ESTEVEZP Ot V58.69 OTH MED,LT,CURRENT USE 08/11/2016 PREM ESTEVEZ TOLL GATE KEEPER Ot V67.1 RADIOTHERAPY FOLLOW-UP 08/11/2016 PREM ESTEVEZ TOLL GATE KEEPER Ot V67.2 CHEMOTHERAPY FOLLOW-UP 08/11/2016 PREM ESTEVEZ TOLL GATE KEEPER Ot 530.3 ESOPHAGEAL STRICTURE 08/11/2016 PREM ESTEVEZ TOLL GATE KEEPER Ot 780.4 DIZZINESS AND GIDDINESS 08/11/2016 PREM ESTEVEZ TOLL GATE KEEPER Ot 784.0 HEADACHE 08/11/2016 PREM ESTEVEZ TOLL GATE KEEPER Ot V10.21 HX-LARYNGEAL MALIGNANCY 08/11/2016 PREM ESTEVEZ TOLL GATE KEEPER Ot V12.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 08/11/2016 PREM ETSEVEZ TOLL GATE KEEPER Ot V58.69 OTH MED,LT,CURRENT USE 08/11/2016 PREM ESTEVEZ TOLL GATE KEEPER Ot V67.1 RADIOTHERAPY FOLLOW-UP 08/11/2016 PREM ESTEVEZ TOLL GATE KEEPER Ot V67.2 CHEMOTHERAPY FOLLOW-UP 08/11/2016 PREM ESTEVEZ TOLL GATE KEEPER Ot 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 08/11/2016 PREM ESTEVEZ TOLL GATE KEEPER Ot 780.4 DIZZINESS AND GIDDINESS 08/11/2016 PREM ESTEVEZ TOLL GATE KEEPER Ot 784.0 HEADACHE 08/11/2016 CRISTIANO ESTEVEZKEELY Sandro TOLL GATE KEEPER Ot V12.54 PERSONAL HX OF TIA, CEREBRAL INFARCTION 08/11/2016 ABRAHAMVIRA TOLL GATE KEEPER Ot 719.41 JOINT PAIN-SHLDER 08/11/2016 ABRAHAMVIRA TOLL GATE KEEPER Ot E000.8 OTHER EXTERNAL CAUSE STATUS 08/11/2016 JARADVIRA TOLL GATE KEEPER Ot E849.0 ACCIDENT IN HOME 08/11/2016 ABRAHAMVIRA TOLL GATE KEEPER Ot E888.9 FALL NOS 08/11/2016 DEEPAK LEOS, [...] V58.69 OTH MED,LT, CURRENT USE 08/11/2016 NATHALIE JACOBSEN MD Ot 272.0 PURE [...] V58.69 OTH MED,LT,CURRENT USE 08/11/2016 VIRA ABRAHAM TOLL GATE KEEPER Ot 729.5 PAIN IN LIMB 08/11/2016 PREM ESTEVEZ TOLL GATE KEEPER Ot V10.21 HX-LARYNGEAL MALIGNANCY 08/11/2016 ESTEVEZPREM Jo TOLL GATE KEEPER Ot V12.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 08/11/2016 PREM ESTEVEZ TOLL GATE KEEPER Ot V58.69 OTH MED,LT,CURRENT USE 08/11/2016 PREM ESTEVEZ TOLL GATE KEEPER Ot V67.1 RADIOTHERAPY FOLLOW-UP 08/11/2016 PREM ESTEVEZ TOLL GATE KEEPER Ot V67.2 CHEMOTHERAPY FOLLOW-UP 08/11/2016 PREM ESTEVEZ TOLL GATE KEEPER Ot 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 08/11/2016 PREM ESTEVEZ TOLL GATE KEEPER Ot 728.87 MUSCLE WEAKNESS (GENERALIZED) 08/11/2016 PREM ESTEVEZ TOLL GATE KEEPER Ot 780.4 DIZZINESS AND GIDDINESS 08/11/2016 BLOSSOM HURD PLANNING DIRECTOR Ot 786.2 COUGH 08/11/2016 NATHALIE JACOBSEN MD [...] OF OTHER SERUM ENZYMES 08/11/2016 LIA HELMS PLANNING DIRECTOR Ot M25.551 PAIN IN RIGHT HIP 08/11/2016 LIA HELMS PLANNING DIRECTOR Ot M25.561 PAIN IN RIGHT KNEE 08/11/2016 LIA HELMS PLANNING DIRECTOR Ot R06.02 SHORTNESS OF BREATH 08/11/2016 ASTON BILL MD Ot R49.0 DYSPHONIA 08/11/2016 ASTON BILL MD Ot 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, 08/11/2016 ASTON BILL MD Ot R06.02 SHORTNESS OF BREATH 08/11/2016 ASTON BILL MD Ot R49.0 DYSPHONIA 08/11/2016 ASTON BILL MD Ot 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, 08/11/2016 LIA HELMS PLANNING DIRECTOR Ot R00.2 PALPITATIONS 08/11/2016 LIA HELMS PLANNING DIRECTOR Ot R06.02 SHORTNESS OF BREATH 08/11/2016 VIRA ABRAHAM TOLL GATE KEEPER Ot R22.0 LOCALIZED SWELLING, MASS AND LUMP, [...] ANGEL PUENTES DO B Ot Z79.899 OTHER JAIL (CURRENT) DRUG THERAPY 08/15/2016 ANGEL PUENTES DO [...] Ot F41.9 ANXIETY DISORDER, UNSPECIFIED 08/16/2016 ANGEL PUENTES DO Ot I10 ESSENTIAL (PRIMARY) HYPERTENSION 08/16/2016 [...] 08/16/2016 ANGEL PUENTES DO Ot Z79.899 OTHER JAIL (CURRENT) DRUG THERAPY 08/16/2016 ANGEL PUENTES DO [...] 10/04/2016 ANGEL PUENTES DO Ot Z79.899 OTHER JAIL (CURRENT) DRUG THERAPY 10/04/2016 ANGEL PUENTES DO [...] PRE- OPERATIVE NOS 11/04/2016 Ot 161.1 MALIG SCTOT SUPRAGLOTTIS 11/04/2016 Ot 789.00 ABDOMINAL PAIN, UNSPECIFIED [...] 11/04/2016 Ot 784.0 HEADACHE 11/04/2016 PREM ESTEVEZ TOLL GATE KEEPER Ot 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 11/04/2016 VIRA ABRAHAM TOLL GATE KEEPER Ot V76.12 OTH SCREEN MAMMO-MALIGN NEOPLASM OF BERNABE 11/04/2016 Ot V68.01 DISABILITY EXAMINATION 11/04/2016 Ot V82.89 SCREEN FOR OTH SPECIF CONDITIONS 11/04/2016 JSAON BENITEZ Boom Ot V10.21 HX-LARYNGEAL MALIGNANCY 11/04/2016 JASON BENITEZ Boom Ot V12.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 11/04/2016 JASON BENITEZ Ot V58.69 OTH MED,LT,CURRENT USE 11/04/2016 JASON BENITEZ Boom Ot V67.1 RADIOTHERAPY FOLLOW-UP 11/04/2016 ELI LUIGILAKSHMI Boom Ot V67.2 CHEMOTHERAPY FOLLOW-UP 11/04/2016 VIRA ABRAHAM TOLL GATE KEEPER Ot 729.1 MYALGIA AND MYOSITIS NOS 11/04/2016 VIRA ABRAHAM TOLL GATE KEEPER Ot 784.0 HEADACHE 11/04/2016 VIRA ABRAHAM TOLL GATE KEEPER Ot 787.02 NAUSEA ALONE 11/04/2016 VIRA ABRAHAM TOLL GATE KEEPER Ot 919.4 INSECT BITE NEC 11/04/2016 VIRA ABRAHAM TOLL GATE KEEPER Ot E000.8 OTHER EXTERNAL CAUSE STATUS 11/04/2016 VIRA ABRAHAM TOLL GATE KEEPER Ot 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.4 NONVENOM ARTHROPOD BITE 11/04/2016 LANDY LEOS, ASTON Andersen Ot 786.09 RESPIRATORY ABNORM NEC 11/04/2016 LANDY LEOS, ASTON Andersen Ot 787.20 DYSPHAGIA, UNSPECIFIED 11/04/2016 PREM ESTEVEZ TOLL GATE KEEPER Ot V10.21 HX-LARYNGEAL MALIGNANCY 11/04/2016 PREM ESTEVEZP Ot V12.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 11/04/2016 PREM ESTEVEZP Ot V58.69 OTH MED,LT,CURRENT USE 11/04/2016 PREM ESTEVEZ TOLL GATE KEEPER Ot V67.1 RADIOTHERAPY FOLLOW-UP 11/04/2016 PREM ESTEVEZ TOLL GATE KEEPER Ot V67.2 CHEMOTHERAPY FOLLOW-UP 11/04/2016 PREM ESTVEEZ TOLL GATE KEEPER Ot 530.3 ESOPHAGEAL STRICTURE 11/04/2016 PREM ESTEVEZ TOLL GATE KEEPER Ot 780.4 DIZZINESS AND GIDDINESS 11/04/2016 PREM ESTEVEZ TOLL GATE KEEPER Ot 784.0 HEADACHE 11/04/2016 PREM ESTEVEZ TOLL GATE KEEPER Ot V10.21 HX-LARYNGEAL MALIGNANCY 11/04/2016 ESTEVEZPREM Jo TOLL GATE KEEPER Ot V12.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 11/04/2016 ESTEVEZPREM Jo TOLL GATE KEEPER Ot V58.69 OTH MED,LT,CURRENT USE 11/04/2016 PREM ESTEVEZ TOLL GATE KEEPER Ot V67.1 RADIOTHERAPY FOLLOW-UP 11/04/2016 HERBPREM TOLL GATE KEEPER Ot V67.2 CHEMOTHERAPY FOLLOW-UP 11/04/2016 HERB PREM Jo TOLL GATE KEEPER Ot 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 11/04/2016 HREBPREM TOLL GATE KEEPER Ot 780.4 DIZZINESS AND GIDDINESS 11/04/2016 HERB PREM Jo TOLL GATE KEEPER Ot 784.0 HEADACHE 11/04/2016 HERB PREM Jo TOLL GATE KEEPER Ot V12.54 PERSONAL HX OF TIA, CEREBRAL INFARCTION 11/04/2016 VIRA ABRAHAM TOLL GATE KEEPER Ot 719.41 JOINT PAIN-SHLDER 11/04/2016 VIRA ABRAHAM TOLL GATE KEEPER Ot E000.8 OTHER EXTERNAL CAUSE STATUS 11/04/2016 VIRA ABRAHAM TOLL GATE KEEPER Ot E849.0 ACCIDENT IN HOME 11/04/2016 VIRA ABRAHAM TOLL GATE KEEPER Ot E888.9 FALL NOS 11/04/2016 DEEPAK LEOS, [...] V58.69 OTH MED,LT,CURRENT USE 11/04/2016 VIRA ABRAHAM TOLL GATE KEEPER Ot 729.5 PAIN IN LIMB 11/04/2016 PREM ESTEVEZ TOLL GATE KEEPER Ot V10.21 HX-LARYNGEAL MALIGNANCY 11/04/2016 PREM ESTEVEZ TOLL GATE KEEPER Ot V12.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 11/04/2016 PREM ESTEVEZ TOLL GATE KEEPER Ot V58.69 OTH MED,LT,CURRENT USE 11/04/2016 PREM ESTEVEZ TOLL GATE KEEPER Ot V67.1 RADIOTHERAPY FOLLOW-UP 11/04/2016 PREM ESTEVEZ TOLL GATE KEEPER Ot V67.2 CHEMOTHERAPY FOLLOW-UP 11/04/2016 PREM ESTEVEZ TOLL GATE KEEPER Ot 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 11/04/2016 PREM ESTEVEZ TOLL GATE KEEPER Ot 728.87 MUSCLE WEAKNESS (GENERALIZED) 11/04/2016 PREM ESTEVEZ TOLL GATE KEEPER Ot 780.4 DIZZINESS AND GIDDINESS 11/04/2016 BLOSSOM [...] 11/04/2016 Ot 784.0 HEADACHE 11/04/2016 PREM ESTEVEZ TOLL GATE KEEPER Ot 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 11/04/2016 VIRA ABRAHAM TOLL GATE KEEPER Ot V76.12 OTH SCREEN MAMMO-MALIGN NEOPLASM OF BERNABE 11/04/2016 Ot V68.01 DISABILITY EXAMINATION 11/04/2016 Ot V82.89 SCREEN FOR OTH SPECIF CONDITIONS 11/04/2016 JASON BENITEZ Ot V10.21 HX-LARYNGEAL MALIGNANCY 11/04/2016 JASON BENITEZ Ot V12.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 11/04/2016 JASON BENITEZ Ot V58.69 OTH MED,LT,CURRENT USE 11/04/2016 AJSON BENITEZ Ot V67.1 RADIOTHERAPY FOLLOW-UP 11/04/2016 JASON BENITEZ Ot V67.2 CHEMOTHERAPY FOLLOW-UP 11/04/2016 VIRA ABRAHAM TOLL GATE KEEPER Ot 729.1 MYALGIA AND MYOSITIS NOS 11/04/2016 VIRA ABRAHAM TOLL GATE KEEPER Ot 784.0 HEADACHE 11/04/2016 VIRA ABRAHAM TOLL GATE KEEPER Ot 787.02 NAUSEA ALONE 11/04/2016 VIRA ABRAHAM TOLL GATE KEEPER Ot 919.4 INSECT BITE NEC 11/04/2016 VIRA ABRAHAM TOLL GATE KEEPER Ot E000.8 OTHER EXTERNAL CAUSE STATUS 11/04/2016 VIRA ABRAHAM TOLL GATE KEEPER Ot E906.4 NONVENOM ARTHROPOD BITE 11/04/2016 LANDY LEOS, ASTON Andersen Ot 786.09 RESPIRATORY ABNORM NEC 11/04/2016 LANDY LEOS, ASTON Andersen Ot 787.20 DYSPHAGIA, UNSPECIFIED 11/04/2016 PREM ESTEVEZ TOLL GATE KEEPER Ot V10.21 HX-LARYNGEAL MALIGNANCY 11/04/2016 ESTEVEZPREM Jo TOLL GATE KEEPER Ot V12.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 11/04/2016 ESTEVEZPREM Jo TOLL GATE KEEPER Ot V58.69 OTH MED,LT,CURRENT USE 11/04/2016 ESTEVEZ PREM Jo TOLL GATE KEEPER Ot V67.1 RADIOTHERAPY FOLLOW-UP 11/04/2016 CRISTIANO ESTEVEZKEELY S TOLL GATE KEEPER Ot V67.2 CHEMOTHERAPY FOLLOW-UP 11/04/2016 CRISTIANO ESTEVEZKEELY Sandro TOLL GATE KEEPER Ot 530.3 ESOPHAGEAL STRICTURE 11/04/2016 HERB PREM S TOLL GATE KEEPER Ot 780.4 DIZZINESS AND GIDDINESS 11/04/2016 HERB PREM Jo TOLL GATE KEEPER Ot 784.0 HEADACHE 11/04/2016 HERB PREM Jo TOLL GATE KEEPER Ot V10.21 HX-LARYNGEAL MALIGNANCY 11/04/2016 HERB PREM Jo TOLL GATE KEEPER Ot V12.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 11/04/2016 CRISTIANO ESTEVEZKEELY Jo TOLL GATE KEEPER Ot V58.69 OTH MED,LT,CURRENT USE 11/04/2016 HERB PREM Jo TOLL GATE KEEPER Ot V67.1 RADIOTHERAPY FOLLOW-UP 11/04/2016 HERB PREM Jo TOLL GATE KEEPER Ot V67.2 CHEMOTHERAPY FOLLOW-UP 11/04/2016 HERB PREM Jo TOLL GATE KEEPER Ot 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 11/04/2016 HERB PREM S TOLL GATE KEEPER Ot 780.4 DIZZINESS AND GIDDINESS 11/04/2016 HERB PREM S TOLL GATE KEEPER Ot 784.0 HEADACHE 11/04/2016 CRISTIANO ESTEVEZKEELY Jo TOLL GATE KEEPER Ot V12.54 PERSONAL HX OF TIA, CEREBRAL INFARCTION 11/04/2016 VIRA ABRAHAM TOLL GATE KEEPER Ot 719.41 JOINT PAIN-SHLDER 11/04/2016 VIRA ABRAHAM TOLL GATE KEEPER Ot E000.8 OTHER EXTERNAL CAUSE STATUS 11/04/2016 VIRA ABRAHAM TOLL GATE KEEPER Ot E849.0 ACCIDENT IN HOME 11/04/2016 VIRA ABRAHAM TOLL GATE KEEPER Ot E888.9 FALL NOS 11/04/2016 DEEPAK LEOS, [...] V58.69 OTH MED,LT,CURRENT USE 11/04/2016 VIRA ABRAHAM TOLL GATE KEEPER Ot 729.5 PAIN IN LIMB 11/04/2016 PREM ESTEVEZP Ot V10.21 HX-LARYNGEAL MALIGNANCY 11/04/2016 PREM ESTEVEZP Ot V12.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 11/04/2016 PREM ESTEVEZ Ot V58.69 OTH MED,LT,CURRENT USE 11/04/2016 PREM ESTEVEZ TOLL GATE KEEPER Ot V67.1 RADIOTHERAPY FOLLOW-UP 11/04/2016 ESTEVEZ, HILAH S TOLL GATE KEEPER Ot V67.2 CHEMOTHERAPY FOLLOW-UP 11/04/2016 ESTEVEZPREM Jo TOLL GATE KEEPER Ot 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 11/04/2016 ESTEVEZPREM Jo TOLL GATE KEEPER Ot 728.87 MUSCLE WEAKNESS (GENERALIZED) 11/04/2016 ESTEVEZPREM Jo TOLL GATE KEEPER Ot 780.4 DIZZINESS AND GIDDINESS 11/04/2016 BLOSSOM [...] SHORTNESS OF BREATH 11/04/2016 ABRAHAM, VIRA M TOLL GATE KEEPER Ot R22.0 LOCALIZED SWELLING, MASS AND LUMP, [...] Ot R10.32 LEFT LOWER QUADRANT PAIN 12/01/2016 ANRDA SAM MD Ot Z80.0 FAMILY HISTORY OF [...] 12/06/2016 Ot 784.0 HEADACHE 12/06/2016 PREM ESTEVEZ TOLL GATE KEEPER Ot 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 12/06/2016 VIRA ABRAHAM TOLL GATE KEEPER Ot V76.12 OTH SCREEN MAMMO-MALIGN NEOPLASM OF BERNAEB 12/06/2016 Ot V68.01 DISABILITY EXAMINATION 12/06/2016 Ot V82.89 SCREEN FOR OTH SPECIF CONDITIONS 12/06/2016 ELI, BOBAN N Ot V10.21 HX-LARYNGEAL MALIGNANCY 12/06/2016 JASON BENITEZ Boom Ot V12.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 12/06/2016 JASON BENITEZ Ot V58.69 OTH MED,LT,CURRENT USE 12/06/2016 JASON BENITEZ Ot V67.1 RADIOTHERAPY FOLLOW-UP 12/06/2016 ELI LUIGILAKSHMI Boom Ot V67.2 CHEMOTHERAPY FOLLOW-UP 12/06/2016 VIRA ABRAHAM TOLL GATE KEEPER Ot 729.1 MYALGIA AND MYOSITIS NOS 12/06/2016 VIRA ABRAHAM TOLL GATE KEEPER Ot 784.0 HEADACHE 12/06/2016 IVRA ABRAHAM TOLL GATE KEEPER Ot 787.02 NAUSEA ALONE 12/06/2016 VIRA ABRAHAM TOLL GATE KEEPER Ot 919.4 INSECT BITE NEC 12/06/2016 VIRA ABRAHAM TOLL GATE KEEPER Ot E000.8 OTHER EXTERNAL CAUSE STATUS 12/06/2016 VIRA ABRAHAM TOLL GATE KEEPER Ot E906.4 NONVENOM ARTHROPOD BITE 12/06/2016 LANDY LEOS, ASTON Andersen Ot 786.09 RESPIRATORY ABNORM NEC 12/06/2016 ASTON BILL MD Ot 787.20 DYSPHAGIA, UNSPECIFIED 12/06/2016 PREM ESTEVEZ TOLL GATE KEEPER Ot V10.21 HX-LARYNGEAL MALIGNANCY 12/06/2016 PREM ESTEVEZ TOLL GATE KEEPER Ot V12.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 12/06/2016 PREM ESTEVEZ Ot V58.69 OTH MED,LT,CURRENT USE 12/06/2016 PREM ESTEVEZ TOLL GATE KEEPER Ot V67.1 RADIOTHERAPY FOLLOW-UP 12/06/2016 PREM ESTEVEZ TOLL GATE KEEPER Ot V67.2 CHEMOTHERAPY FOLLOW-UP 12/06/2016 PREM ESTEVEZ TOLL GATE KEEPER Ot 530.3 ESOPHAGEAL STRICTURE 12/06/2016 PREM ESTEVEZ TOLL GATE KEEPER Ot 780.4 DIZZINESS AND GIDDINESS 12/06/2016 PREM ESTEVEZ TOLL GATE KEEPER Ot 784.0 HEADACHE 12/06/2016 PREM ESTEVEZ TOLL GATE KEEPER Ot V10.21 HX-LARYNGEAL MALIGNANCY 12/06/2016 PREM ESTEVEZ TOLL GATE KEEPER Ot V12.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 12/06/2016 PREM ESTEVEZ TOLL GATE KEEPER Ot V58.69 OTH MED,LT,CURRENT USE 12/06/2016 PREM ESTEVEZ TOLL GATE KEEPER Ot V67.1 RADIOTHERAPY FOLLOW-UP 12/06/2016 ESTEVEZPREM Jo TOLL GATE KEEPER Ot V67.2 CHEMOTHERAPY FOLLOW-UP 12/06/2016 PREM ESTEVEZ TOLL GATE KEEPER Ot 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 12/06/2016 PREM ESTEVEZ TOLL GATE KEEPER Ot 780.4 DIZZINESS AND GIDDINESS 12/06/2016 PREM ESTEVEZ TOLL GATE KEEPER Ot 784.0 HEADACHE 12/06/2016 PREM ESTEVEZ TOLL GATE KEEPER Ot V12.54 PERSONAL HX OF TIA, CEREBRAL INFARCTION 12/06/2016 VIRA ABRAHAM TOLL GATE KEEPER Ot 719.41 JOINT PAIN-SHLDER 12/06/2016 VIRA ABRAHAM TOLL GATE KEEPER Ot E000.8 OTHER EXTERNAL CAUSE STATUS 12/06/2016 VIRA ABRAHAM TOLL GATE KEEPER Ot E849.0 ACCIDENT IN HOME 12/06/2016 VIRA ABRAHAM TOLL GATE KEEPER Ot E888.9 FALL NOS 12/06/2016 DEEPAK LEOS, [...] V58.69 OTH MED,LT,CURRENT USE 12/06/2016 VIRA ABRAHAM TOLL GATE KEEPER Ot 729.5 PAIN IN LIMB 12/06/2016 PREM ESTEVEZ TOLL GATE KEEPER Ot V10.21 HX-LARYNGEAL MALIGNANCY 12/06/2016 PREM ESTEVEZ TOLL GATE KEEPER Ot V12.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 12/06/2016 PREM ESTEVEZ TOLL GATE KEEPER Ot V58.69 OTH MED,LT,CURRENT USE 12/06/2016 PREM ESTEVEZ TOLL GATE KEEPER Ot V67.1 RADIOTHERAPY FOLLOW-UP 12/06/2016 PREM ESTEVEZ TOLL GATE KEEPER Ot V67.2 CHEMOTHERAPY FOLLOW-UP 12/06/2016 PREM ESTEVEZ TOLL GATE KEEPER Ot 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 12/06/2016 PREM ESTEVEZ TOLL GATE KEEPER Ot 728.87 MUSCLE WEAKNESS (GENERALIZED) 12/06/2016 PREM ESTEVEZ TOLL GATE KEEPER Ot 780.4 DIZZINESS AND GIDDINESS 12/06/2016 BLOSSOM HURD APRN Ot 786.2 COUGH 12/06/2016 NATHALIE JACOBSEN MD Ot 272.0 PURE HYPERCHOLESTEROLEM 12/06/2016 NATHALIE JACOBSEN MD Ot 300.00 ANXIETY STATE NOS 12/06/2016 NATHALIE JACOBSEN MD Ot 530.3 ESOPHAGEAL STRICTURE 12/06/2016 NATHALIE JACOBSEN MD Ot 530.81 ESOPHAGEAL REFLUX 12/06/2016 NATHALIE JACOBSEN MD Ot V58.69 OTH MED,LT,CURRENT USE 12/06/2016 VIRA ABRAHAM TOLL GATE KEEPER Ot 719.41 JOINT PAIN-SHLDER 12/06/2016 JAJA SOTELO MD Ot R10.9 UNSPECIFIED ABDOMINAL PAIN 12/06/2016 JAJA SOTELO MD Ot R74.8 ABNORMAL LEVELS OF OTHER SERUM ENZYMES 12/06/2016 LIA HELMS PLANNING DIRECTOR Ot M25.551 PAIN IN RIGHT HIP 12/06/2016 LIA HELMS PLANNING DIRECTOR Ot M25.561 PAIN IN RIGHT KNEE 12/06/2016 LIA HELMS APRN Ot R06.02 SHORTNESS [...] V58.69 OT MED,LT,CURRENT USE 12/06/2016 LIA HELMS PLANNING DIRECTOR Ot R00.2 PALPITATIONS 12/06/2016 LIA HELMS APRN [...] V58.69 OTH MED,LT,CURRENT USE 12/07/2016 LIA HELMS PLANNING DIRECTOR Ot R00.2 PALPITATIONS 12/07/2016 LIA HELMS PLANNING DIRECTOR Ot R06.02 SHORTNESS OF BREATH 12/07/2016 ILIANA [...] 12/07/2016 ILIANA CUENCA MD, Ot Z79.899 OTHER JAIL (CURRENT) DRUG THERAPY 12/07/2016 ILIANA CUENCA MD, [...] 12/08/2016 ILIANA CUENCA MD Ot 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 12/08/2016 ILIANA CUENCA MD [...] 12/15/2016 Ot 784.0 HEADACHE 12/15/2016 PREM ESTEVEZ TOLL GATE KEEPER Ot 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 12/15/2016 VIRA ABRAHAM TOLL GATE KEEPER Ot V76.12 OTH SCREEN MAMMO-MALIGN NEOPLASM OF BERNABE 12/15/2016 Ot V68.01 DISABILITY EXAMINATION 12/15/2016 Ot V82.89 SCREEN FOR OTH SPECIF CONDITIONS 12/15/2016 JASON BENITEZ Ot V10.21 HX-LARYNGEAL MALIGNANCY 12/15/2016 JASON BENITEZ Ot V12.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 12/15/2016 JASON BENITEZ Ot V58.69 OTH MED,LT,CURRENT USE 12/15/2016 JASON BENITEZ Ot V67.1 RADIOTHERAPY FOLLOW-UP 12/15/2016 JASON BENITEZ Ot V67.2 CHEMOTHERAPY FOLLOW-UP 12/15/2016 VIRA ABRAHAM TOLL GATE KEEPER Ot 729.1 MYALGIA AND MYOSITIS NOS 12/15/2016 VRIA ABRAHAM TOLL GATE KEEPER Ot 784.0 HEADACHE 12/15/2016 VIRA ABRAHAM TOLL GATE KEEPER Ot 787.02 NAUSEA ALONE 12/15/2016 VIRA ABRAHAM TOLL GATE KEEPER Ot 919.4 INSECT BITE NEC 12/15/2016 VIRA ABRAHAM TOLL GATE KEEPER Ot E000.8 OTHER EXTERNAL CAUSE STATUS 12/15/2016 VIRA ABRAHAM TOLL GATE KEEPER Ot 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.4 NONVENOM ARTHROPOD BITE 12/15/2016 LANDY LEOS, ASTON Andersen Ot 786.09 RESPIRATORY ABNORM NEC 12/15/2016 ASTON BILL MD Ot 787.20 DYSPHAGIA, UNSPECIFIED 12/15/2016 PREM ESTEVEZ TOLL GATE KEEPER Ot V10.21 HX-LARYNGEAL MALIGNANCY 12/15/2016 PREM ESTEVEZ TOLL GATE KEEPER Ot V12.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 12/15/2016 PREM ESTEVEZ TOLL GATE KEEPER Ot V58.69 OTH MED,LT,CURRENT USE 12/15/2016 PREM ESTEVEZ TOLL GATE KEEPER Ot V67.1 RADIOTHERAPY FOLLOW-UP 12/15/2016 ESTEVEZPREM Jo TOLL GATE KEEPER Ot V67.2 CHEMOTHERAPY FOLLOW-UP 12/15/2016 ESTEVEZPREM Jo TOLL GATE KEEPER Ot 530.3 ESOPHAGEAL STRICTURE 12/15/2016 ESTEVEZPREM Jo TOLL GATE KEEPER Ot 780.4 DIZZINESS AND GIDDINESS 12/15/2016 ESTEVEZPREM Jo TOLL GATE KEEPER Ot 784.0 HEADACHE 12/15/2016 HERB PREM Jo TOLL GATE KEEPER Ot V10.21 HX-LARYNGEAL MALIGNANCY 12/15/2016 ESTEVEZPREM TOLL GATE KEEPER Ot V12.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 12/15/2016 ESTEVEZPREM Jo TOLL GATE KEEPER Ot V58.69 OTH MED,LT,CURRENT USE 12/15/2016 PREM ESTEVEZ TOLL GATE KEEPER Ot V67.1 RADIOTHERAPY FOLLOW-UP 12/15/2016 ESTEVEZPREM Jo TOLL GATE KEEPER Ot V67.2 CHEMOTHERAPY FOLLOW-UP 12/15/2016 HERB PREM Jo TOLL GATE KEEPER Ot 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 12/15/2016 HERB PREM Jo TOLL GATE KEEPER Ot 780.4 DIZZINESS AND GIDDINESS 12/15/2016 ESTEVEZPREM Jo TOLL GATE KEEPER Ot 784.0 HEADACHE 12/15/2016 ESTEVEZPREM Jo TOLL GATE KEEPER Ot V12.54 PERSONAL HX OF TIA, CEREBRAL INFARCTION 12/15/2016 VIRA ABRAHAM TOLL GATE KEEPER Ot 719.41 JOINT PAIN-SHLDER 12/15/2016 VIRA ABRAHAM TOLL GATE KEEPER Ot E000.8 OTHER EXTERNAL CAUSE STATUS 12/15/2016 VIRA ABRAHAM TOLL GATE KEEPER Ot E849.0 ACCIDENT IN HOME 12/15/2016 VIRA ABRAHAM TOLL GATE KEEPER Ot E888.9 FALL NOS 12/15/2016 DEEPAK LEOS, JAJA Rushing Ot V76.12 OTH SCREEN MAMMO-MALIGN NEOPLASM OF BERNABE 12/15/2016 SHWETA DPM, ERLIN Q Ot 735.0 HALLUX VALGUS 12/15/2016 SHWETA DPM, ERLIN Q Ot V72.84 EXAM PRE-OPERATIVE NOS 12/15/2016 SHWETA DPM, ERLIN Q Ot V74.8 SCREEN-BACTERIAL DIS NEC 12/15/2016 JASON BENITEZ Ot V10.21 HX-LARYNGEAL MALIGNANCY 12/15/2016 JSAON BENITEZ Boom Ot V12.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 [...] V58.69 OTH MED,LT,CURRENT USE 12/15/2016 VIRA ABRAHAM TOLL GATE KEEPER Ot 729.5 PAIN IN LIMB 12/15/2016 PREM ESTEVEZP Ot V10.21 HX-LARYNGEAL MALIGNANCY 12/15/2016 PREM ESTEVEZ TOLL GATE KEEPER Ot V12.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 12/15/2016 PREM ESTEVEZP Ot V58.69 OTH MED,LT,CURRENT USE 12/15/2016 PREM ESTEVEZ TOLL GATE KEEPER Ot V67.1 RADIOTHERAPY FOLLOW-UP 12/15/2016 PREM ESTEVEZ TOLL GATE KEEPER Ot V67.2 CHEMOTHERAPY FOLLOW-UP 12/15/2016 PREM ESTEVEZ TOLL GATE KEEPER Ot 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 12/15/2016 PREM ESTEVEZ TOLL GATE KEEPER Ot 728.87 MUSCLE WEAKNESS (GENERALIZED) 12/15/2016 PREM ESTEVEZ TOLL GATE KEEPER Ot 780.4 DIZZINESS AND GIDDINESS 12/15/2016 BLOSSOM HURD PLANNING DIRECTOR Ot 786.2 COUGH 12/15/2016 NATHALIE JACOBSEN MD [...] OF OTHER SERUM ENZYMES 12/15/2016 LIA HELMS PLANNING DIRECTOR Ot M25.551 PAIN IN RIGHT HIP 12/15/2016 LIA HELMS APRN Ot M25.561 PAIN IN RIGHT KNEE 12/15/2016 LIA HELMS PLANNING DIRECTOR Ot R06.02 SHORTNESS OF BREATH 12/15/2016 ASTON BILL MD Ot R49.0 DYSPHONIA 12/15/2016 ASTON BILL MD Ot 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0 HEADACHE 12/28/2016 VIRA ABRAHAM TOLL GATE KEEPER Ot 787.02 NAUSEA ALONE 12/28/2016 VIRA ABRAHAM TOLL GATE KEEPER Ot 919.4 INSECT BITE NEC 12/28/2016 VIRA ABRAHAM TOLL GATE KEEPER Ot E000.8 OTHER EXTERNAL CAUSE STATUS 12/28/2016 VIRA ABRAHAM TOLL GATE KEEPER Ot E906.4 NONVENOM ARTHROPOD BITE 12/28/2016 ASTON BILL MD Ot 786.09 RESPIRATORY ABNORM NEC 12/28/2016 ASTON BILL MD Ot 787.20 DYSPHAGIA, UNSPECIFIED 12/28/2016 PREM ESTEVEZ TOLL GATE KEEPER Ot V10.21 HX-LARYNGEAL MALIGNANCY 12/28/2016 PREM ESTEVEZP Ot V12.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 12/28/2016 PREM ESTEVEZ Ot V58.69 OTH MED,LT,CURRENT USE 12/28/2016 PREM ESTEVEZ TOLL GATE KEEPER Ot V67.1 RADIOTHERAPY FOLLOW-UP 12/28/2016 PREM ESTEVEZ TOLL GATE KEEPER Ot V67.2 CHEMOTHERAPY FOLLOW-UP 12/28/2016 PREM ESTEVEZ TOLL GATE KEEPER Ot 530.3 ESOPHAGEAL STRICTURE 12/28/2016 ESTEVEZPREM Jo TOLL GATE KEEPER Ot 780.4 DIZZINESS AND GIDDINESS 12/28/2016 ESTEVEZPREM Jo TOLL GATE KEEPER Ot 784.0 HEADACHE 12/28/2016 ESTEVEZPREM Jo TOLL GATE KEEPER Ot V10.21 HX-LARYNGEAL MALIGNANCY 12/28/2016 HERB PREM Jo TOLL GATE KEEPER Ot V12.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 12/28/2016 ESTEVEZPREM Jo TOLL GATE KEEPER Ot V58.69 OTH MED,LT,CURRENT USE 12/28/2016 ESTEVEZPREM Jo TOLL GATE KEEPER Ot V67.1 RADIOTHERAPY FOLLOW-UP 12/28/2016 HERBPREM TOLL GATE KEEPER Ot V67.2 CHEMOTHERAPY FOLLOW-UP 12/28/2016 ESTEVEZPREM Jo TOLL GATE KEEPER Ot 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 12/28/2016 ESTEVEZPERM Jo TOLL GATE KEEPER Ot 780.4 DIZZINESS AND GIDDINESS 12/28/2016 ESTEVEZPREM Jo TOLL GATE KEEPER Ot 784.0 HEADACHE 12/28/2016 HERB PREM Jo TOLL GATE KEEPER Ot V12.54 PERSONAL HX OF TIA, CEREBRAL INFARCTION 12/28/2016 VIRA ABRAHAM TOLL GATE KEEPER Ot 719.41 JOINT PAIN-SHLDER 12/28/2016 VIRA ABRAHAM TOLL GATE KEEPER Ot E000.8 OTHER EXTERNAL CAUSE STATUS 12/28/2016 VIRA ABRAHAM TOLL GATE KEEPER Ot E849.0 ACCIDENT IN HOME 12/28/2016 VIRA ABRAHAM TOLL GATE KEEPER Ot E888.9 FALL NOS 12/28/2016 DEEPAK LEOS, [...] V58.69 OTH MED,LT,CURRENT USE 12/28/2016 VIRA ABRAHAM TOLL GATE KEEPER Ot 729.5 PAIN IN LIMB 12/28/2016 PREM ESTEVEZ TOLL GATE KEEPER Ot V10.21 HX-LARYNGEAL MALIGNANCY 12/28/2016 PREM ESTEVEZ TOLL GATE KEEPER Ot V12.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 12/28/2016 PREM ESTEVEZP Ot V58.69 OT MED,LT,CURRENT USE 12/28/2016 PREM ESTEVEZ TOLL GATE KEEPER Ot V67.1 RADIOTHERAPY FOLLOW-UP 12/28/2016 PREM ESTEVEZ TOLL GATE KEEPER Ot V67.2 CHEMOTHERAPY FOLLOW-UP 12/28/2016 PREM ESTEVEZ TOLL GATE KEEPER Ot 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 12/28/2016 PREM ESTEVEZ TOLL GATE KEEPER Ot 728.87 MUSCLE WEAKNESS (GENERALIZED) 12/28/2016 PREM ESTEVEZ TOLL GATE KEEPER Ot 780.4 DIZZINESS AND GIDDINESS 12/28/2016 BLOSSOM [...] 04/07/2017 Ot 784.0 HEADACHE 04/07/2017 PREM ESTEVEZ TOLL GATE KEEPER Ot 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 04/07/2017 VIRA ABRAHAM TOLL GATE KEEPER Ot V76.12 OTH SCREEN MAMMO-MALIGN NEOPLASM OF BERNABE 04/07/2017 Ot V68.01 DISABILITY EXAMINATION 04/07/2017 Ot V82.89 SCREEN FOR OTH SPECIF CONDITIONS 04/07/2017 JASON BENITEZ Ot V10.21 HX-LARYNGEAL MALIGNANCY 04/07/2017 JASON BENITEZ Ot V12.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 04/07/2017 JASON BENITEZ Ot V58.69 OTH MED,LT,CURRENT USE 04/07/2017 JASON BENITEZ Ot V67.1 RADIOTHERAPY FOLLOW-UP 04/07/2017 JASON BENITEZ Ot V67.2 CHEMOTHERAPY FOLLOW-UP 04/07/2017 VIRA ABRAHAM TOLL GATE KEEPER Ot 729.1 MYALGIA AND MYOSITIS NOS 04/07/2017 VIRA ABRAHAM TOLL GATE KEEPER Ot 784.0 HEADACHE 04/07/2017 VIRA ABRAHAM TOLL GATE KEEPER Ot 787.02 NAUSEA ALONE 04/07/2017 VIRA ABRAHAM TOLL GATE KEEPER Ot 919.4 INSECT BITE NEC 04/07/2017 VIRA ABRAHAM TOLL GATE KEEPER Ot E000.8 OTHER EXTERNAL CAUSE STATUS 04/07/2017 VIRA ABRAHAM TOLL GATE KEEPER Ot 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.4 NONVENOM ARTHROPOD BITE 04/07/2017 LANDY LEOS, ASTON Andersen Ot 786.09 RESPIRATORY ABNORM NEC 04/07/2017 LANDY LEOS, ASTON Andersen Ot 787.20 DYSPHAGIA, UNSPECIFIED 04/07/2017 PREM ESTEVEZ TOLL GATE KEEPER Ot V10.21 HX-LARYNGEAL MALIGNANCY 04/07/2017 PREM ESTEVEZ TOLL GATE KEEPER Ot V12.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 04/07/2017 PREM ESTEVEZ TOLL GATE KEEPER Ot V58.69 OTH MED,LT,CURRENT USE 04/07/2017 PREM ESTEVEZ TOLL GATE KEEPER Ot V67.1 RADIOTHERAPY FOLLOW-UP 04/07/2017 PREM ESTEVEZ TOLL GATE KEEPER Ot V67.2 CHEMOTHERAPY FOLLOW-UP 04/07/2017 ESTEVEZ PREM Jo TOLL GATE KEEPER Ot 530.3 ESOPHAGEAL STRICTURE 04/07/2017 PREM ESTEVEZ TOLL GATE KEEPER Ot 780.4 DIZZINESS AND GIDDINESS 04/07/2017 PREM ESTEVEZ TOLL GATE KEEPER Ot 784.0 HEADACHE 04/07/2017 HERB PREM Jo TOLL GATE KEEPER Ot V10.21 HX-LARYNGEAL MALIGNANCY 04/07/2017 ESTEVEZ PREM Jo TOLL GATE KEEPER Ot V12.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 04/07/2017 PREM ESTEVEZ TOLL GATE KEEPER Ot V58.69 OT MED,LT,CURRENT USE 04/07/2017 PREM ESTEVEZ TOLL GATE KEEPER Ot V67.1 RADIOTHERAPY FOLLOW-UP 04/07/2017 ESTEVEZ PREM Jo TOLL GATE KEEPER Ot V67.2 CHEMOTHERAPY FOLLOW-UP 04/07/2017 HERB PREM Jo TOLL GATE KEEPER Ot 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 04/07/2017 HERB PREM Jo TOLL GATE KEEPER Ot 780.4 DIZZINESS AND GIDDINESS 04/07/2017 ESTEVEZ PREM Jo TOLL GATE KEEPER Ot 784.0 HEADACHE 04/07/2017 ESTEVEZ PREM Jo TOLL GATE KEEPER Ot V12.54 PERSONAL HX OF TIA, CEREBRAL INFARCTION 04/07/2017 VIRA ABRAHAM TOLL GATE KEEPER Ot 719.41 JOINT PAIN-SHLDER 04/07/2017 VIRA ABRAHAM TOLL GATE KEEPER Ot E000.8 OTHER EXTERNAL CAUSE STATUS 04/07/2017 VIRA ABRAHAM TOLL GATE KEEPER Ot E849.0 ACCIDENT IN HOME 04/07/2017 VIRA ABRAHAM TOLL GATE KEEPER Ot E888.9 FALL NOS 04/07/2017 DEEPAK LEOS, [...] V58.69 OTH MED,LT,CURRENT USE 04/07/2017 VIRA ABRAHAM TOLL GATE KEEPER Ot 729.5 PAIN IN LIMB 04/07/2017 PREM ESTEVEZP Ot V10.21 HX-LARYNGEAL MALIGNANCY 04/07/2017 PREM ESTEVEZ TOLL GATE KEEPER Ot V12.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 04/07/2017 PREM ESTEVEZP Ot V58.69 OTH MED,LT,CURRENT USE 04/07/2017 PREM ESTEVEZ TOLL GATE KEEPER Ot V67.1 RADIOTHERAPY FOLLOW-UP 04/07/2017 PREM ESTEVEZ TOLL GATE KEEPER Ot V67.2 CHEMOTHERAPY FOLLOW-UP 04/07/2017 PREM ESTEVEZ TOLL GATE KEEPER Ot 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 04/07/2017 PREM ESTEVEZ TOLL GATE KEEPER Ot 728.87 MUSCLE WEAKNESS (GENERALIZED) 04/07/2017 CRISTIANO ESTEVEZKEELY Sandro TOLL GATE KEEPER Ot 780.4 DIZZINESS AND GIDDINESS 04/07/2017 BLOSSOM HURD PLANNING DIRECTOR Ot 786.2 COUGH 04/07/2017 NATHALIE JACOBSEN MD [...] 04/07/2017 Ot 784.0 HEADACHE 04/07/2017 PREM ESTEVEZ TOLL GATE KEEPER Ot 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 04/07/2017 VIRA ABRAHAM TOLL GATE KEEPER Ot V76.12 OTH SCREEN MAMMO-MALIGN NEOPLASM OF BERNABE 04/07/2017 Ot V68.01 DISABILITY EXAMINATION 04/07/2017 Ot V82.89 SCREEN FOR OTH SPECIF CONDITIONS 04/07/2017 JASON BENITEZ Ot V10.21 HX-LARYNGEAL MALIGNANCY 04/07/2017 JASON BENITEZ Ot V12.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 04/07/2017 JASON BENITEZ Ot V58.69 OTH MED,LT,CURRENT USE 04/07/2017 JASON BENITEZ Ot V67.1 RADIOTHERAPY FOLLOW-UP 04/07/2017 JASON BENITEZ Ot V67.2 CHEMOTHERAPY FOLLOW-UP 04/07/2017 VIRA ABRAHAM TOLL GATE KEEPER Ot 729.1 MYALGIA AND MYOSITIS NOS 04/07/2017 VIRA ABRAHAM TOLL GATE KEEPER Ot 784.0 HEADACHE 04/07/2017 VIRA ABRAHAM TOLL GATE KEEPER Ot 787.02 NAUSEA ALONE 04/07/2017 VIRA ABRAHAM TOLL GATE KEEPER Ot 919.4 INSECT BITE NEC 04/07/2017 VIRA ABRAHAM TOLL GATE KEEPER Ot E000.8 OTHER EXTERNAL CAUSE STATUS 04/07/2017 VIRA ABRAHAM TOLL GATE KEEPER Ot E906.4 NONVENOM ARTHROPOD BITE 04/07/2017 LANDY LEOS, ASTON P Ot 786.09 RESPIRATORY ABNORM NEC 04/07/2017 LANDY LEOS, ASTON Andersen Ot 787.20 DYSPHAGIA, UNSPECIFIED 04/07/2017 PREM ESTEVEZ TOLL GATE KEEPER Ot V10.21 HX-LARYNGEAL MALIGNANCY 04/07/2017 PREM ESTEVEZ TOLL GATE KEEPER Ot V12.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 04/07/2017 PREM ESTEVEZ TOLL GATE KEEPER Ot V58.69 OTH MED,LT,CURRENT USE 04/07/2017 PREM ESTEVEZ TOLL GATE KEEPER Ot V67.1 RADIOTHERAPY FOLLOW-UP 04/07/2017 PREM ESTEVEZ TOLL GATE KEEPER Ot V67.2 CHEMOTHERAPY FOLLOW-UP 04/07/2017 PREM ESTEVEZ TOLL GATE KEEPER Ot 530.3 ESOPHAGEAL STRICTURE 04/07/2017 PREM ESTEVEZ TOLL GATE KEEPER Ot 780.4 DIZZINESS AND GIDDINESS 04/07/2017 PREM ESTEVEZ TOLL GATE KEEPER Ot 784.0 HEADACHE 04/07/2017 PREM ESTEVEZ TOLL GATE KEEPER Ot V10.21 HX-LARYNGEAL MALIGNANCY 04/07/2017 PREM ESTEVEZ TOLL GATE KEEPER Ot V12.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 04/07/2017 PREM ESTEVEZ TOLL GATE KEEPER Ot V58.69 OTH MED,LT,CURRENT USE 04/07/2017 PREM ESTEVEZ TOLL GATE KEEPER Ot V67.1 RADIOTHERAPY FOLLOW-UP 04/07/2017 PREM ESTEVEZ TOLL GATE KEEPER Ot V67.2 CHEMOTHERAPY FOLLOW-UP 04/07/2017 HERB HILKEELY Sandro TOLL GATE KEEPER Ot 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 04/07/2017 ESTEVEZPREM TOLL GATE KEEPER Ot 780.4 DIZZINESS AND GIDDINESS 04/07/2017 ESTEVEZ PREM Sandro TOLL GATE KEEPER Ot 784.0 HEADACHE 04/07/2017 ESTEVEZPREM Jo TOLL GATE KEEPER Ot V12.54 PERSONAL HX OF TIA, CEREBRAL INFARCTION 04/07/2017 VIRA ABRAHAM TOLL GATE KEEPER Ot 719.41 JOINT PAIN-SHLDER 04/07/2017 VIRA ABRAHAM TOLL GATE KEEPER Ot E000.8 OTHER EXTERNAL CAUSE STATUS 04/07/2017 VIRA ABRAHAM TOLL GATE KEEPER Ot E849.0 ACCIDENT IN HOME 04/07/2017 VIRA ABRAHAM TOLL GATE KEEPER Ot E888.9 FALL NOS 04/07/2017 DEEPAK LEOS, [...] V58.69 OTH MED,LT,CURRENT USE 04/07/2017 VIRA ABRAHAM TOLL GATE KEEPER Ot 729.5 PAIN IN LIMB 04/07/2017 PREM ESTEVEZ TOLL GATE KEEPER Ot V10.21 HX-LARYNGEAL MALIGNANCY 04/07/2017 PREM ESTEVEZ TOLL GATE KEEPER Ot V12.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 04/07/2017 PREM ESTEVEZ TOLL GATE KEEPER Ot V58.69 OTH MED,LT,CURRENT USE 04/07/2017 ESTEVEZPREM Jo TOLL GATE KEEPER Ot V67.1 RADIOTHERAPY FOLLOW-UP 04/07/2017 PREM ESTEVEZ TOLL GATE KEEPER Ot V67.2 CHEMOTHERAPY FOLLOW-UP 04/07/2017 PREM ESTEVEZ TOLL GATE KEEPER Ot 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 04/07/2017 ESTEVEZPREM Jo TOLL GATE KEEPER Ot 728.87 MUSCLE WEAKNESS (GENERALIZED) 04/07/2017 PREM ESTEVEZ S TOLL GATE KEEPER Ot 780.4 DIZZINESS AND GIDDINESS 04/07/2017 BLOSSOM HURD APRN Ot 786.2 COUGH 04/07/2017 NATHALIE JACOBSEN MD Ot 272.0 PURE HYPERCHOLESTEROLEM 04/07/2017 NATHALIE JACOBSEN MD Ot 300.00 ANXIETY STATE NOS 04/07/2017 NATHALIE JACOBSEN MD Ot 530.3 ESOPHAGEAL STRICTURE 04/07/2017 NATHALIE JACOBSEN MD Ot 530.81 ESOPHAGEAL REFLUX 04/07/2017 NATHALIE JACOBSEN MD Ot V58.69 OTH MED,LT,CURRENT USE 04/07/2017 VIRA ABRAHAM TOLL GATE KEEPER Ot 719.41 JOINT PAIN-SHLDER 04/07/2017 JAJA SOTELO MD Ot R10.9 UNSPECIFIED ABDOMINAL PAIN 04/07/2017 JAJA SOTELO MD Ot R74.8 ABNORMAL LEVELS OF OTHER SERUM ENZYMES 04/07/2017 LIA HELMS PLANNING DIRECTOR Ot M25.551 PAIN IN RIGHT HIP 04/07/2017 LIA HELMS PLANNING DIRECTOR Ot M25.561 PAIN IN RIGHT KNEE 04/07/2017 LIA HELMS PLANNING DIRECTOR Ot R06.02 SHORTNESS OF BREATH 04/07/2017 LANDY LEOS, ASTON Andersen Ot R49.0 DYSPHONIA 04/07/2017 LANDY LEOS, ASTON Andersen Ot Z85.818 PRSNL [...] 08/23/2017 Ot 784.0 HEADACHE 08/23/2017 PREM ESTEVEZ TOLL GATE KEEPER Ot 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 08/23/2017 VIRA ABRAHAM TOLL GATE KEEPER Ot V76.12 OTH SCREEN MAMMO-MALIGN NEOPLASM OF [place] 08/23/2017 Ot V68.01 DISABILITY EXAMINATION 08/23/2017 Ot V82.89 SCREEN FOR OTH SPECIF CONDITIONS 08/23/2017 JASON BENITEZ Ot V10.21 HX-LARYNGEAL MALIGNANCY 08/23/2017 JASON BENITEZ Ot V12.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 08/23/2017 JASON BENITEZ Ot V58.69 OTH MED,LT,CURRENT USE 08/23/2017 JASON BENITEZ Ot V67.1 RADIOTHERAPY FOLLOW-UP 08/23/2017 JASON BENITEZ Ot V67.2 CHEMOTHERAPY FOLLOW-UP 08/23/2017 VIRA ABRAHAM TOLL GATE KEEPER Ot 729.1 MYALGIA AND MYOSITIS NOS 08/23/2017 VIRA ABRAHAM TOLL GATE KEEPER Ot 784.0 HEADACHE 08/23/2017 VIRA ABRAHAM TOLL GATE KEEPER Ot 787.02 NAUSEA ALONE 08/23/2017 VIRA ABRAHAM TOLL GATE KEEPER Ot 919.4 INSECT BITE NEC 08/23/2017 VIRA ABRAHAM TOLL GATE KEEPER Ot E000.8 OTHER EXTERNAL CAUSE STATUS 08/23/2017 VIRA ABRAHAM TOLL GATE KEEPER Ot E906.4 NONVENOM ARTHROPOD BITE 08/23/2017 ASTON BILL MD Ot 786.09 RESPIRATORY ABNORM NEC 08/23/2017 ASTON BILL MD Ot 787.20 DYSPHAGIA, UNSPECIFIED 08/23/2017 PREM ESTEVEZ TOLL GATE KEEPER Ot V10.21 HX-LARYNGEAL MALIGNANCY 08/23/2017 PREM ESTEVEZ TOLL GATE KEEPER Ot V12.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 08/23/2017 PREM ESTEVEZ TOLL GATE KEEPER Ot V58.69 OTH MED,LT,CURRENT USE 08/23/2017 PREM ESTEVEZ TOLL GATE KEEPER Ot V67.1 RADIOTHERAPY FOLLOW-UP 08/23/2017 ESTEVEZPREM Jo TOLL GATE KEEPER Ot V67.2 CHEMOTHERAPY FOLLOW-UP 08/23/2017 ESTEVEZ PREM Jo TOLL GATE KEEPER Ot 530.3 ESOPHAGEAL STRICTURE 08/23/2017 ESTEVEZ PREM Jo TOLL GATE KEEPER Ot 780.4 DIZZINESS AND GIDDINESS 08/23/2017 PREM ESTEVEZ TOLL GATE KEEPER Ot 784.0 HEADACHE 08/23/2017 HERB PREM Jo TOLL GATE KEEPER Ot V10.21 HX-LARYNGEAL MALIGNANCY 08/23/2017 HERB PREM Jo TOLL GATE KEEPER Ot V12.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 08/23/2017 HERB PREM Jo TOLL GATE KEEPER Ot V58.69 OTH MED,LT,CURRENT USE 08/23/2017 ESTEVEZPREM Jo TOLL GATE KEEPER Ot V67.1 RADIOTHERAPY FOLLOW-UP 08/23/2017 HERB PREM Jo TOLL GATE KEEPER Ot V67.2 CHEMOTHERAPY FOLLOW-UP 08/23/2017 HERB PREM Jo TOLL GATE KEEPER Ot 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 08/23/2017 HERB PREM Jo TOLL GATE KEEPER Ot 780.4 DIZZINESS AND GIDDINESS 08/23/2017 ESTEVEZ PREM Jo TOLL GATE KEEPER Ot 784.0 HEADACHE 08/23/2017 ESTEVEZ PREM Jo TOLL GATE KEEPER Ot V12.54 PERSONAL HX OF TIA, CEREBRAL INFARCTION 08/23/2017 VIRA ABRAHAM TOLL GATE KEEPER Ot 719.41 JOINT PAIN-SHLDER 08/23/2017 VIRA ABRAHAM TOLL GATE KEEPER Ot E000.8 OTHER EXTERNAL CAUSE STATUS 08/23/2017 VIRA ABRAHAM TOLL GATE KEEPER Ot E849.0 ACCIDENT IN HOME 08/23/2017 VIRA ABRAHAM TOLL GATE KEEPER Ot E888.9 FALL NOS 08/23/2017 DEEPAK LEOS, [...] V58.69 OTH MED,LT,CURRENT USE 08/23/2017 VIRA ABRAHAM TOLL GATE KEEPER Ot 729.5 PAIN IN LIMB 08/23/2017 PREM ESTEVEZ TOLL GATE KEEPER Ot V10.21 HX-LARYNGEAL MALIGNANCY 08/23/2017 PREM ESTEVEZ TOLL GATE KEEPER Ot V12.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 08/23/2017 PREM ESTEVEZ TOLL GATE KEEPER Ot V58.69 OTH MED,LT,CURRENT USE 08/23/2017 PREM ESTEVEZ TOLL GATE KEEPER Ot V67.1 RADIOTHERAPY FOLLOW-UP 08/23/2017 PREM ESTEVEZ TOLL GATE KEEPER Ot V67.2 CHEMOTHERAPY FOLLOW-UP 08/23/2017 PREM ESTEVEZ TOLL GATE KEEPER Ot 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 08/23/2017 PREM ESTEVEZ TOLL GATE KEEPER Ot 728.87 MUSCLE WEAKNESS (GENERALIZED) 08/23/2017 PREM ESTEVEZ TOLL GATE KEEPER Ot 780.4 DIZZINESS AND GIDDINESS 08/23/2017 BLOSSOM HURD APRN Ot 786.2 COUGH 08/23/2017 NATHALIE JACOBSEN MD Ot 272.0 PURE HYPERCHOLESTEROLEM 08/23/2017 NATHALIE JACOBSEN MD Ot 300.00 ANXIETY STATE NOS 08/23/2017 NATHALIE JACOBSEN MD Ot 530.3 ESOPHAGEAL STRICTURE 08/23/2017 NATHALIE JACOBSEN MD Ot 530.81 ESOPHAGEAL REFLUX 08/23/2017 NATHALIE JACOBSEN MD Ot V58.69 OTH MED,LT,CURRENT USE 08/23/2017 VIRA ABRAHAM Ot 719.41 JOINT PAIN-SHLDER 08/23/2017 JAAJ SOTELO MD Ot R10.9 UNSPECIFIED ABDOMINAL PAIN 08/23/2017 JAJA SOTELO MD Ot R74.8 ABNORMAL LEVELS OF OTHER SERUM ENZYMES 08/23/2017 LIA HELMS PLANNING DIRECTOR Ot M25.551 PAIN IN RIGHT HIP 08/23/2017 LIA HELMS APRN Ot M25.561 PAIN IN RIGHT KNEE 08/23/2017 LIA HELMS PLANNING DIRECTOR Ot R06.02 SHORTNESS OF BREATH 08/23/2017 ASTON BILL MD Ot R49.0 DYSPHONIA 08/23/2017 LANDY LEOS, ASTON Andersen Ot 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, 08/23/2017 ASTON BILL MD Ot R06.02 SHORTNESS OF BREATH 08/23/2017 ASTON BILL MD Ot R49.0 DYSPHONIA 08/23/2017 ASTON BILL MD Ot 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, 08/23/2017 LIA HELMS PLANNING DIRECTOR Ot R00.2 PALPITATIONS 08/23/2017 LIA HELMS PLANNING DIRECTOR Ot R06.02 SHORTNESS OF BREATH 08/23/2017 VIRA [...] DHAVAL PETERS ANGEL B Ot Z79.899 OTHER JAIL (CURRENT) DRUG THERAPY 08/23/2017 DHAVAL PETERS, ANGEL [...] DHAVAL PETERS ANGEL B Ot 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 08/31/2017 DHAVAL PETERS, ANGEL [...] 09/28/2017 Ot 784.0 HEADACHE 09/28/2017 PREM ESTEVEZ TOLL GATE KEEPER Ot 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 09/28/2017 VIRA ABRAHAM TOLL GATE KEEPER Ot V76.12 OTH SCREEN MAMMO-MALIGN NEOPLASM OF [place] 09/28/2017 Ot V68.01 DISABILITY EXAMINATION 09/28/2017 Ot V82.89 SCREEN FOR OTH SPECIF CONDITIONS 09/28/2017 JASON BENITEZ Ot V10.21 HX-LARYNGEAL MALIGNANCY 09/28/2017 JASON BENITEZ Ot V12.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 09/28/2017 JASON BENITEZ Ot V58.69 OTH MED,LT,CURRENT USE 09/28/2017 JASON BENITEZ Ot V67.1 RADIOTHERAPY FOLLOW-UP 09/28/2017 JASON BENITEZ Ot V67.2 CHEMOTHERAPY FOLLOW-UP 09/28/2017 VIRA ABRAHAM TOLL GATE KEEPER Ot 729.1 MYALGIA AND MYOSITIS NOS 09/28/2017 VIRA ABRAHAM TOLL GATE KEEPER Ot 784.0 HEADACHE 09/28/2017 VIRA ABRAHAM TOLL GATE KEEPER Ot 787.02 NAUSEA ALONE 09/28/2017 VIRA ABRAHAM TOLL GATE KEEPER Ot 919.4 INSECT BITE NEC 09/28/2017 VIRA ABRAHAM TOLL GATE KEEPER Ot E000.8 OTHER EXTERNAL CAUSE STATUS 09/28/2017 VIRA ABRAHAM TOLL GATE KEEPER Ot E906.4 NONVENOM ARTHROPOD BITE 09/28/2017 LANDY LEOS, ASTON Andersen Ot 786.09 RESPIRATORY ABNORM NEC 09/28/2017 ASTON BILL MD Ot 787.20 DYSPHAGIA, UNSPECIFIED 09/28/2017 PREM ESTEVEZ TOLL GATE KEEPER Ot V10.21 HX-LARYNGEAL MALIGNANCY 09/28/2017 PREM ESTEVEZ TOLL GATE KEEPER Ot V12.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 09/28/2017 PREM ESTEVEZ TOLL GATE KEEPER Ot V58.69 OTH MED,LT,CURRENT USE 09/28/2017 PREM ESTEVEZ S TOLL GATE KEEPER Ot V67.1 RADIOTHERAPY FOLLOW-UP 09/28/2017 ESTEVEZPREM Jo S TOLL GATE KEEPER Ot V67.2 CHEMOTHERAPY FOLLOW-UP 09/28/2017 ESTEVEZ PREM S TOLL GATE KEEPER Ot 530.3 ESOPHAGEAL STRICTURE 09/28/2017 ESTEVEZPREM Jo S TOLL GATE KEEPER Ot 780.4 DIZZINESS AND GIDDINESS 09/28/2017 ESTEVEZPREM Jo S TOLL GATE KEEPER Ot 784.0 HEADACHE 09/28/2017 ESTEVEZPREM Jo TOLL GATE KEEPER Ot V10.21 HX-LARYNGEAL MALIGNANCY 09/28/2017 PREM ESTEVEZ TOLL GATE KEEPER Ot V12.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 09/28/2017 ESTEVEZ PREM Jo TOLL GATE KEEPER Ot V58.69 OTH MED,LT,CURRENT USE 09/28/2017 ESTEVEZ PREM Jo TOLL GATE KEEPER Ot V67.1 RADIOTHERAPY FOLLOW-UP 09/28/2017 ESTEVEZ PREM Jo TOLL GATE KEEPER Ot V67.2 CHEMOTHERAPY FOLLOW-UP 09/28/2017 ESTEVEZ PREM S TOLL GATE KEEPER Ot 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 09/28/2017 ESTEVEZ PREM S TOLL GATE KEEPER Ot 780.4 DIZZINESS AND GIDDINESS 09/28/2017 ESTEVEZ PREM Jo TOLL GATE KEEPER Ot 784.0 HEADACHE 09/28/2017 ESTEVEZ PREM Jo TOLL GATE KEEPER Ot V12.54 PERSONAL HX OF TIA, CEREBRAL INFARCTION 09/28/2017 VIRA ABRAHAM TOLL GATE KEEPER Ot 719.41 JOINT PAIN-SHLDER 09/28/2017 VIRA ABRAHAM TOLL GATE KEEPER Ot E000.8 OTHER EXTERNAL CAUSE STATUS 09/28/2017 VIRA ABRAHAM TOLL GATE KEEPER Ot E849.0 ACCIDENT IN HOME 09/28/2017 VIRA ABRAHAM TOLL GATE KEEPER Ot E888.9 FALL NOS 09/28/2017 DEEPAK LEOS, [...] Ot 728.87 MUSCLE WEAKNESS (GENERALIZED) 09/28/2017 NATHALIE JACOSBEN MD Ot 781.94 FACIAL WEAKNESS 09/28/2017 NATHALIE JACOBSEN MD Ot 784.59 OTHER SPEECH DISTURBANCE 09/28/2017 NATHALIE JACOBSEN MD Ot V58.69 OTH MED,LT,CURRENT USE 09/28/2017 VIRA ABRAHAM TOLL GATE KEEPER Ot 729.5 PAIN IN LIMB 09/28/2017 PREM ESTEVEZ TOLL GATE KEEPER Ot V10.21 HX-LARYNGEAL MALIGNANCY 09/28/2017 PREM ESTEVEZ TOLL GATE KEEPER Ot V12.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 09/28/2017 PREM ESTEVEZP Ot V58.69 OTH MED,LT,CURRENT USE 09/28/2017 RPEM ESTEVEZ TOLL GATE KEEPER Ot V67.1 RADIOTHERAPY FOLLOW-UP 09/28/2017 PREM ESTEVEZ TOLL GATE KEEPER Ot V67.2 CHEMOTHERAPY FOLLOW-UP 09/28/2017 PREM ESTEVEZ TOLL GATE KEEPER Ot 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 09/28/2017 PREM ESTEVEZ TOLL GATE KEEPER Ot 728.87 MUSCLE WEAKNESS (GENERALIZED) 09/28/2017 PREM ESTEVEZ TOLL GATE KEEPER Ot 780.4 DIZZINESS AND GIDDINESS 09/28/2017 BLOSSOM HURD PLANNING DIRECTOR Ot 786.2 COUGH 09/28/2017 DELMAR LEOS, NATHALIE [...] MD Ot R10.9 UNSPECIFIED ABDOMINAL PAIN 09/28/2017 JAAJ SOTELO MD Ot R74.8 ABNORMAL LEVELS OF [...] Z85.819 PRSNL HX OF MALIG NEOPLM OF [facility] SITE LI 09/29/2017 MARTHA LEE APRN Ot [...] Z85.819 PRSNL HX OF MALIG NEOPLM OF [facility] SITE LI 10/02/2017 MARTHA LEE APRN Ot [...] Z91.048 OTHER NONMEDICINAL SUBSTANCE ALLERGY STA 10/02/2017 MARTHA LEE APRN Ot Z92.21 PERSONAL HISTORY [...] 10/24/2017 JASON BENITEZ Boom Ot Z79.899 OTHER JAIL (CURRENT) DRUG THERAPY 10/24/2017 ELILUIGILAKSHMI Boom Ot [...] GASTRO-ESOPHAGEAL REFLUX DISEASE WITHOUT 11/03/2017 JASON BENITEZ Boom Ot K22.2 ESOPHAGEAL OBSTRUCTION 11/03/2017 JASON BENITEZ Ot M89.9 DISORDER OF BONE, UNSPECIFIED 11/03/2017 JASON BENITEZ Ot Z08 ENCNTR FOR FOLLOW-UP EXAM AFTER TRTMT FO 11/03/2017 JASON BENITEZ Ot Z79.899 OTHER JAIL (CURRENT) DRUG THERAPY 11/03/2017 JASON BENITEZ Ot Z85.01 PERSONAL HISTORY OF MALIGNANT NEOPLASM O 11/03/2017 JASON BENITEZ Boom Ot Z86.718 PERSONAL HISTORY OF OTHER VENOUS THROMBO 11/03/2017 JASON BENITEZ Ot J34.89 OTHER SPECIFIED DISORDERS OF NOSE AND NA 11/03/2017 JASON BENITEZ Boom Ot J98.11 ATELECTASIS 11/03/2017 JASON BENITEZ Boom Ot N20.0 CALCULUS OF KIDNEY 11/03/2017 JASON BENITEZ Boom Ot R22.0 LOCALIZED SWELLING, MASS AND LUMP, HEAD 11/03/2017 JASON BENITEZ Ot Z85.89 PERSONAL HISTORY OF MALIGNANT NEOPLASM O 11/03/2017 LANDY LEOS, ASTON Andersen Ot G40.909 EPILEPSY, UNSP, NOT INTRACTABLE, WITHOUT 11/03/2017 LANDY LEOS, ASTON Andersen Ot G93.0 CEREBRAL CYSTS 11/03/2017 LANDY LEOS, ASTON Andersen Ot Z85.01 PERSONAL HISTORY OF MALIGNANT NEOPLASM O 11/25/2017 MARTHA LEE APRN Ot E11.9 TYPE 2 DIABETES MELLITUS WITHOUT COMPLIC 11/25/2017 AMRTHA LEE APRN Ot E78.00 PURE HYPERCHOLESTEROLEMIA, UNSPECIFIED 11/25/2017 MARTHA LEE APRN Ot F31.9 BIPOLAR DISORDER, UNSPECIFIED 11/25/2017 MARTHA LEE APRN Ot F41.9 ANXIETY DISORDER, UNSPECIFIED 11/25/2017 MARTHA LEE APRN Ot G43.909 MIGRAINE, UNSP, NOT INTRACTABLE, WITHOUT 11/25/2017 MARTHA LEE APRN Ot I10 ESSENTIAL (PRIMARY) HYPERTENSION 11/25/2017 MARTHA LEE APRN Ot K21.9 GASTRO-ESOPHAGEAL REFLUX DISEASE WITHOUT 11/25/2017 MARTHA LEE APRN Ot M25.512 PAIN IN LEFT SHOULDER 11/25/2017 MARTHA LEE APRN Ot R07.89 OTHER CHEST PAIN 11/25/2017 MARTHA LEE APRN Ot R20.0 ANESTHESIA OF SKIN 11/25/2017 MARTHA LEE APRN Ot Z80.0 FAMILY HISTORY OF MALIGNANT NEOPLASM OF 11/25/2017 MARTHA LEE APRN Ot Z82.49 FAMILY HX OF ISCHEM HEART DIS AND OTH DI 11/25/2017 MARTHA LEE APRN Ot Z85.819 PRSNL HX OF MALIG NEOPLM OF [facility] SITE LI 11/25/2017 MARTHA LEE APRN Ot Z86.718 PERSONAL HISTORY OF OTHER VENOUS THROMBO 11/25/2017 MARTHA LEE APRN Ot Z87.19 PERSONAL HISTORY OF OTHER DISEASES OF TH 11/25/2017 MARTHA LEE APRN Ot Z87.442 PERSONAL HISTORY OF URINARY CALCULI 11/25/2017 MARTHA LEE APRN Ot Z87.891 PERSONAL HISTORY OF NICOTINE DEPENDENCE 11/25/2017 MARTHA LEE APRN Ot Z88.0 ALLERGY STATUS TO PENICILLIN 11/25/2017 MARTHA LEE APRN Ot Z88.5 ALLERGY STATUS TO NARCOTIC AGENT STATUS 11/25/2017 MARTHA LEE APRN Ot Z90.49 ACQUIRED ABSENCE OF OTHER SPECIFIED PART 11/25/2017 MARTHA LEE APRN Ot Z90.710 ACQUIRED ABSENCE OF BOTH CERVIX AND UTER 11/25/2017 MARTHA LEE APRN Ot Z90.89 ACQUIRED ABSENCE OF OTHER ORGANS 11/25/2017 MARTHA LEE APRN Ot Z91.041 RADIOGRAPHIC DYE ALLERGY STATUS 11/25/2017 MARTHA LEE APRN Ot Z91.048 OTHER NONMEDICINAL SUBSTANCE ALLERGY STA 11/25/2017 MARTHA LEE APRN Ot Z92.21 PERSONAL HISTORY OF ANTINEOPLASTIC CHEMO 11/25/2017 MARTHA LEE APRN Ot Z98.51 TUBAL LIGATION STATUS 11/25/2017 MARTHA LEE APRN Ot Z98.890 OTHER SPECIFIED POSTPROCEDURAL STATES 11/27/2017 MARTHA LEE APRN Ot E11.9 TYPE 2 DIABETES MELLITUS WITHOUT COMPLIC 11/27/2017 MARTHA LEE APRN Ot E78.00 PURE HYPERCHOLESTEROLEMIA, UNSPECIFIED 11/27/2017 MARTHA LEE APRN Ot F31.9 BIPOLAR DISORDER, UNSPECIFIED 11/27/2017 MARTAH LEE APRN Ot F41.9 ANXIETY DISORDER, UNSPECIFIED 11/27/2017 MARTHA LEE APRN Ot G43.909 MIGRAINE, UNSP, NOT INTRACTABLE, WITHOUT 11/27/2017 MARTHA LEE APRN Ot I10 ESSENTIAL (PRIMARY) HYPERTENSION 11/27/2017 MARTHA LEE APRN Ot K21.9 GASTRO-ESOPHAGEAL REFLUX DISEASE WITHOUT 11/27/2017 MARTHA LEE APRN Ot M25.512 PAIN IN LEFT SHOULDER 11/27/2017 MARTHA LEE APRN Ot R07.89 OTHER CHEST PAIN 11/27/2017 MARTHA LEE APRN Ot R20.0 ANESTHESIA OF SKIN 11/27/2017 MARTHA LEE APRN Ot Z80.0 FAMILY HISTORY OF MALIGNANT NEOPLASM OF 11/27/2017 MARTHA LEE APRN Ot Z82.49 FAMILY HX OF ISCHEM HEART DIS AND OTH DI 11/27/2017 MARTHA LEE APRN Ot Z85.819 PRSNL HX OF MALIG NEOPLM OF [facility] SITE LI 11/27/2017 MARTHA LEE APRN Ot Z86.718 PERSONAL HISTORY OF OTHER VENOUS THROMBO 11/27/2017 MARTHA LEE APRN Ot Z87.19 PERSONAL HISTORY OF OTHER DISEASES OF TH 11/27/2017 MARTHA LEE APRN Ot Z87.442 PERSONAL HISTORY OF URINARY CALCULI 11/27/2017 MARTHA LEE APRN Ot Z87.891 PERSONAL HISTORY OF NICOTINE DEPENDENCE 11/27/2017 MARTHA LEE APRN Ot Z88.0 ALLERGY STATUS TO PENICILLIN 11/27/2017 MARTHA LEE APRN Ot Z88.5 ALLERGY STATUS TO NARCOTIC AGENT STATUS 11/27/2017 MARTHA LEE APRN Ot Z90.49 ACQUIRED ABSENCE OF OTHER SPECIFIED PART 11/27/2017 MARTHA LEE APRN Ot Z90.710 ACQUIRED ABSENCE OF BOTH CERVIX AND UTER 11/27/2017 MARTHA LEE APRN Ot Z90.89 ACQUIRED ABSENCE OF OTHER ORGANS 11/27/2017 MARTHA LEE APRN Ot Z91.041 RADIOGRAPHIC DYE ALLERGY STATUS 11/27/2017 MARTHA LEE APRN Ot Z91.048 OTHER NONMEDICINAL SUBSTANCE ALLERGY STA 11/27/2017 MARTHA LEE PLANNING DIRECTOR Ot Z92.21 PERSONAL HISTORY OF ANTINEOPLASTIC CHEMO 11/27/2017 MARTHA LEE PLANNING DIRECTOR Ot Z98.51 TUBAL LIGATION STATUS 11/27/2017 MARTHA LEE PLANNING DIRECTOR Ot Z98.890 OTHER SPECIFIED POSTPROCEDURAL STATES 12/27/2017 JASON BENITEZ Ot E07.9 DISORDER OF THYROID, UNSPECIFIED 12/27/2017 JASON BENITEZ N Ot I10 ESSENTIAL (PRIMARY) HYPERTENSION 12/27/2017 JASON BENITEZ N Ot K21.9 GASTRO-ESOPHAGEAL REFLUX DISEASE WITHOUT 12/27/2017 ELIJASON FULTON N Ot K22.2 ESOPHAGEAL OBSTRUCTION 12/27/2017 JASON BENITEZ N Ot M89.9 DISORDER OF BONE, UNSPECIFIED 12/27/2017 JASON BENITEZ N Ot Z08 ENCNTR FOR FOLLOW-UP EXAM AFTER TRTMT FO 12/27/2017 JASON BENITEZ N Ot Z79.899 OTHER JAIL (CURRENT) DRUG THERAPY 12/27/2017 JASON BENITEZ N Ot Z85.01 PERSONAL HISTORY OF MALIGNANT NEOPLASM O 12/27/2017 JASON BENITEZ N Ot Z86.718 PERSONAL HISTORY OF OTHER VENOUS THROMBO 12/28/2017 JASON BENITEZ N Ot E07.9 DISORDER OF THYROID, UNSPECIFIED 12/28/2017 JASON BENITEZ N Ot I10 ESSENTIAL (PRIMARY) HYPERTENSION 12/28/2017 JASON BENITEZ N Ot K21.9 GASTRO-ESOPHAGEAL REFLUX DISEASE WITHOUT 12/28/2017 JASON BENITEZ N Ot K22.2 ESOPHAGEAL OBSTRUCTION 12/28/2017 JASON BENITEZ N Ot M89.9 DISORDER OF BONE, UNSPECIFIED 12/28/2017 JASON BENITEZ N Ot Z08 ENCNTR FOR FOLLOW-UP EXAM AFTER TRTMT FO 12/28/2017 JASON BENITEZ N Ot Z79.899 OTHER JAIL (CURRENT) DRUG THERAPY 12/28/2017 JASON BENITEZ N Ot Z85.01 PERSONAL HISTORY OF MALIGNANT NEOPLASM O 12/28/2017 JASON BENITEZ N Ot Z86.718 PERSONAL HISTORY OF OTHER VENOUS THROMBO Procedures Code Description Performed By Performed On 86.07 INSERTION OF TOTALLY IMPLANTABLE VASC AC 05/01/2009 23.19 SURG TOOTH EXTRACT NEC 05/06/2009 37.22 LEFT HEART CARDIAC CATH 10/01/2009 88.42 CONTRAST AORTOGRAM 10/01/2009 88.53 LT HEART ANGIOCARDIOGRAM 10/01/2009 88.56 CORONAR ARTERIOGR-2 CATH 10/01/2009 17.36 LAPAROSCOPIC SIGMOIDECTOMY 01/03/2012 38.93 VENOUS CATHETERIZATION NEC 01/03/2012 Results Test Result Range [place] (Eskalith(R)), Serum - 02/22/16 08:51 [place] (Eskalith(R)), Serum 1.0 mmol/L 0.6-1.4 Comp. [...] culture - 11/04/16 18:17 Bacterial urine culture [id number] NRG COLONY COUNT >100,000/ML NRG FTX;REPORTABLE SENSITIVITY [...] 0-40 ALT (SGPT) 31 IU/L 0-32 Thyroid [place] Profile - 11/11/16 17:10 TSH 0.961 uIU/mL [...] poor plasma bycoagulation assay 29 s 24-35 Comprehensive metabolic panel - 11/25/17 12:26 Serum or plasma sodium measurement (moles/volume) 139 mmol/L 135-145 Serum or plasma potassium measurement (moles/volume) 3.8 mmol/L 3.6-5.0 Serum or plasma chloride measurement (moles/volume) 104 mmol/L 98-107 Carbon dioxide 25 mmol/L 21-32 Serum or plasma anion gap determination (moles/volume) 10 mmol/L 5-14 Serum or plasma urea nitrogen measurement (mass/volume) 9 mg/dL 7-18 Serum or plasma creatinine measurement (mass/volume) 0.84 mg/dL 0.60-1.30 Serum or plasma urea nitrogen/creatinine mass ratio 11 NRG Serum or plasma creatinine measurement with calculation of estimated glomerular filtration rate > NRG Serum or plasma glucose measurement (mass/volume) 100 mg/dL 70-105 Serum or plasma calcium measurement (mass/volume) 9.9 mg/dL 8.5-10.1 Serum or plasma total bilirubin measurement (mass/volume) 0.5 mg/dL 0.1-1.0 Serum or plasma alkaline phosphatase measurement (enzymatic activity/volume) 67 U/L 40-136 Serum or plasma aspartate aminotransferase measurement (enzymatic activity/ volume) 17 U/L 5-34 Serum or plasma alanine aminotransferase measurement (enzymatic activity/volume ) 14 U/L 0-55 Serum or plasma protein measurement (mass/volume) 7.2 g/dL 6.4-8.2 Serum or plasma albumin measurement (mass/volume) 4.5 g/dL 3.2-4.5 CALCIUM CORRECTED 9.5 mg/dL 8.5-10.1 Magnesium - 11/25/17 12:26 Magnesium 2.5 mg/dL 1.8-2.4 Serum or plasma troponin i.cardiac measurement (mass/volume) - 11/25/17 12:26 Serum or plasma troponin i.cardiac measurement (mass/volume) < ng/ mL <0.30 Serum or plasma lithium measurement (moles/volume) - 11/25/17 12:26 BNP level 26.4 pg/mL <100.0 Myoglobin, serum - 11/25/17 12:26 Myoglobin, serum 45.4 ng/mL 10.0-92.0 Fibrin D-dimer FEU measurement in platelet poor plasma (mass/volume) - 12:26 Fibrin D-dimer FEU measurement in platelet poor plasma (mass/volume) 0.27 ug/mL 0.00-0.49 Encounters ACCT No. Visit Date/Time Discharge Status Pt. Type Provider Facility Loc./Unit Complaint [id number] 12/28/2017 00:08:00 12/28/2017 23:59:59 CLS Preadmit JASON BENITEZ [facility] ONC [id number] 10/05/2017 13:42:00 12/27/2017 00:01:00 DIS Outpatient JASON BENITEZ [facility] ONC [id number] 11/25/2017 12:20:00 11/25/2017 14:25:00 DIS Emergency MARTHA LEE APRN [facility] ER ARM NUMBNESS, PALPITATIONS [id number] 10/06/2017 09:30:00 10/06/2017 23:59:59 CLS Outpatient ASTON BILL MD [facility] RAD RECURRENT SEIZURE SYMPTOMS, RIGHT NECK MASS [id number] 10/04/2017 14:15:00 10/04/2017 23:59:59 CLS Outpatient JASON BENITEZ [facility] RAD HISTORY OF CA OF HEAD OR NECK,MANDIBULAR MASS [id number] 09/29/2017 10:59:00 09/29/2017 23:59:59 CLS Outpatient JASON BENITEZ [facility] CARD ENCOUNTER FOR IMAGING STUDY TO RESTAGE NEOPLASM [id number] 09/29/2017 12:26:00 09/29/2017 13:45:00 DIS Emergency MARTHA LEE APRN [facility] ER ALLERGIC REACTION TO CONTRAST [id number] 08/23/2017 07:20:00 08/23/2017 10:30:00 DIS Outpatient ANGEL PUENTES DO [facility] ENDO HX COLON POLYPS [id number] 08/21/2017 13:42:00 08/21/2017 13:52:00 DIS Outpatient ANGEL PUENTES DO [facility] PREOP COLONOSCOPY [id number] 12/07/2016 07:18:00 12/07/2016 13:55:00 DIS Outpatient ILIANA CUENCA MD [facility] LEFT URETERAL STONE [id number] 12/06/2016 12:25:00 12/06/2016 14:04:00 DIS Outpatient ILIANA CUENCA MD [facility] PREOP LEFT URETERAL STONE [id number] 12/05/2016 08:04:00 12/05/2016 09:32:00 DIS Emergency ROSELYN IBARRA MD [facility] ER KIDNEY STONE PAIN, N/V, DIZZY [id number] 11/30/2016 22:19:00 12/01/2016 06:13:00 DIS Emergency ANDRA SAM MD [facility] ER LOWER BACK PAIN [id number] 11/04/2016 16:45:00 11/04/2016 20:49:00 DIS Emergency ROSELYN IBARRA MD [facility] ER VOMITING/STOMACH PAIN [id number] 08/15/2016 11:39:00 08/15/2016 15:05:00 DIS Outpatient DHAVAL PETERSANGEL [facility] ENDO SCREENING [id number] 08/11/2016 06:16:00 08/11/2016 23:59:59 CLS Outpatient DHAVAL PETERSANGEL [facility] PREOP SCREENING COLONOSCOPY [id number] 06/18/2016 15:15:00 06/18/2016 16:10:00 DIS Emergency MARTHA LEE PLANNING DIRECTOR [facility] ER HEADACHE [id number] 04/19/2016 08:58:00 04/19/2016 23:59:59 CLS Outpatient VIRA ABRAHAM [facility] RAD L FACIAL SWELLING [id number] 09/25/2015 10:00:00 09/25/2015 10:00:00 CAN Preadmit LIA HELMS APRN [facility] CARD PALPITATIONS,SOB [id number] 06/26/2015 09:00:00 09/24/2015 00:01:00 DIS Outpatient LIA HELMS APRN [facility] CARD PALPITATIONS,SOB [id number] 08/12/2015 12:25:00 08/12/2015 23:59:59 CLS Outpatient ASTON BILL MD [facility] RT DYSPHONIA,HX OF HEAD AND NECK CA [id number] 08/07/2015 08:31:00 08/07/2015 23:59:59 CLS Outpatient ASTON BILL MD [facility] RAD DYSPHONIA, HX HEAD AND NECK CA, SOB [id number] 08/07/2015 11:08:00 08/07/2015 12:36:00 DIS Emergency DAVID STEINER MD [facility] ER POSS MED REACTION [id number] 06/23/2015 08:49:00 06/23/2015 10:05:00 DIS Emergency JACINTA LEOS, BROCK Fallon [facility] ER RIGHT HAND INJURY [id number] 06/19/2015 16:27:00 06/19/2015 23:59:59 CLS Outpatient LIA HELMS APRN [facility] LAB SHORTNESS OF BREATH [id number] 05/14/2015 10:11:00 05/14/2015 23:59:59 CLS Outpatient LIA HELMS APRN [facility] RAD RIGHT KNEE PAIN,HIP PAIN [id number] 05/02/2015 20:40:00 05/03/2015 11:10:00 DIS Inpatient CINDY PETERS MUSTAPHA S [facility] ICU INTENTIONAL DRUG OVERDOSE; SUICIDAL GESTURES; ANXI [id number] 04/23/2015 16:44:00 04/23/2015 19:22:00 DIS Emergency MARTHA LEE APRN [facility] ER NAUSEA;DIARRHEA;R KNEE AND HIP PAIN [id number] 03/27/2015 11:36:00 03/27/2015 23:59:59 CLS Emergency DAVID STEINER MD [facility] ER CHEST PAIN [id number] 01/24/2015 14:11:00 01/24/2015 20:48:00 DIS Emergency CAROLANN HARTMAN [facility] ER AMS [id number] 01/08/2015 10:16:00 01/08/2015 23:59:59 CLS Preadmit JASON BENITEZ Boom [facility] ONC [id number] 12/27/2014 19:53:00 12/27/2014 22:10:00 DIS Emergency MARTHA LEE APRN [facility] ER ABDOMINAL PAIN [id number] 12/12/2014 09:18:00 12/12/2014 23:59:59 CLS Outpatient JAJA SOTELO MD [facility] LAB ABNORMAL LEVELS OF OTHER SERUM ENZYMES [id number] 12/05/2014 11:44:00 12/09/2014 10:35:00 DIS Inpatient JAJA SOTELO MD [facility] SURGICAL ABDOMINAL PAIN, ELEVATED ENZYMES [id number] 08/21/2014 16:50:00 08/21/2014 23:59:59 CLS Outpatient VIRA ABRAHAM [facility] RAD UNABLE TO RAISE ARM /SHOULDER PAIN [id number] 08/06/2014 09:00:00 08/06/2014 23:59:59 CLS Preadmit NATHALIE JACOBSEN MD [facility] CARD ANXIETY [id number] 05/07/2014 08:37:00 08/05/2014 00:01:00 DIS Outpatient NATHALIE JACOBSEN MD [facility] CARD ANXIETY [id number] 07/25/2014 09:47:00 07/25/2014 23:59:59 CLS Outpatient BLOSSOM HURD APRN [facility] RAD COUGH [id number] 07/10/2014 09:17:00 07/10/2014 23:59:59 CLS Outpatient PREM ESTEVEZ TOLL GATE KEEPER [facility] RAD HEAD/NECK CA, DIZZINESS, RT SIDED WEAKNESS [id number] 07/07/2014 14:18:00 07/07/2014 23:59:59 CLS Outpatient PREM ESTEVEZ TOLL GATE KEEPER [facility] ONC [id number] 06/03/2014 15:43:00 06/03/2014 23:59:59 CLS Outpatient VIRA ABRAHAM TOLL GATE KEEPER [facility] RAD L LEG PAIN [id number] 05/28/2014 11:15:00 05/28/2014 23:59:59 CLS Outpatient NATHALIE JACOBSEN MD [facility] CARD GERD,HIGH CHOLESEROL, [id number] 02/23/2014 21:10:00 02/23/2014 22:53:00 DIS Emergency ANDRA SAM MD [facility] ER CP [id number] 12/25/2013 10:18:00 12/25/2013 23:59:59 CLS Outpatient JASON BENITEZ N [facility] ONC [id number] 12/16/2013 06:00:00 12/16/2013 10:35:00 DIS Outpatient ERLIN ROCK DPM Q [facility] SDC HALLX RIGHT [id number] 12/09/2013 08:39:00 12/09/2013 23:59:59 CLS Outpatient DAVID ROCK DPMIN Q [facility] PREOP HALLX RIGHT [id number] 12/05/2013 01:55:00 12/05/2013 05:05:00 DIS Emergency MAXIMILIAN PALMA DO [facility] ER ABD PAIN,LEG PAIN [id number] 11/13/2013 08:31:00 11/13/2013 23:59:59 CLS Outpatient JAJA SOTELO MD [facility] RAD SCREENING [id number] 09/01/2013 22:28:00 09/02/2013 01:22:00 DIS Emergency ANDRA SAM MD [facility] ER ALLERGIC REACTION [id number] 08/31/2013 10:45:00 08/31/2013 13:35:00 DIS Emergency MARTHA LEE APRN [facility] ER POSSIBLE BOWEL OBSTRUCTION [id number] 07/25/2013 15:10:00 07/25/2013 23:59:59 CLS Outpatient VIRA ABRAHAM TOLL GATE KEEPER [facility] RAD FALL/LT SHOULD SHOULDER PAIN [id number] 07/03/2013 12:49:00 07/03/2013 23:59:59 CLS Outpatient PREM ESTEVEZ TOLL GATE KEEPER [facility] RAD HEADACHE,DIZZINESS, HEAD,NECK CA [id number] 07/01/2013 14:26:00 07/01/2013 23:59:59 CLS Outpatient PREM ESTEVEZ TOLL GATE KEEPER [facility] ONC [id number] 06/16/2013 03:28:00 06/16/2013 06:18:00 DIS Emergency BROCK WORKMAN MD [facility] ER CP [id number] 06/03/2013 19:38:00 06/04/2013 06:00:00 DIS Outpatient RENUKA WILSON 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 [facility] SLEEP EXCESSIVE DAYTIME SLEEPINESS [id number] 12/24/2012 12:25:00 12/24/2012 23:59:59 CLS Outpatient PREM ESTEVEZ TOLL GATE KEEPER [facility] ONC [id number] 12/19/2012 08:01:00 12/19/2012 23:59:59 CLS Outpatient LANDY LEOS, ASTON Andersen [facility] RAD DYSPHAGIA, PROBLEMS BREATHING AT NIGHT [id number] 10/23/2012 15:11:00 10/23/2012 23:59:59 CLS Outpatient VIRA ABRAHAM [facility] SDC HEADACHES,NAUSEA, BODY ACHES [id number] 09/21/2012 11:45:00 09/21/2012 23:59:59 CLS Outpatient FELIX VALENCIA TOLL GATE KEEPER [facility] QUICK MIGRAINE [id number] 09/17/2012 10:10:00 09/17/2012 23:59:59 CLS Outpatient JASON BENITEZ Boom [facility] ONC [id number] 09/11/2012 09:35:00 09/11/2012 23:59:59 CLS Outpatient PREM ESTEVEZ TOLL GATE KEEPER [facility] RAD HEAD AND NECK CA [id number] 07/04/2012 08:39:00 07/04/2012 23:59:59 CLS Outpatient VIRA ABRAHAM [facility] RAD SCREENING [id number] 07/02/2012 08:10:00 07/03/2012 11:25:00 DIS Inpatient JAJA SOTELO MD [facility] 4TH ABD PAIN/ILEUS [id number] 04/07/2017 05:30:00 Document Registration [id number] 04/07/2017 05:30:00 Document Registration [id number] 04/07/2017 05:30:00 Document Registration [id number] 04/07/2017 05:30:00 Document Registration [id number] 04/07/2017 05:30:00 Document Registration [id number] 04/07/2017 05:30:00 Document Registration [id number] 04/07/2017 05:30:00 Document Registration [id number] 04/07/2017 05:29:00 Document Registration [id number] 10/08/2014 13:52:00 Document Registration [id number] 05/14/2014 07:49:00 Document Registration [id number] 03/30/2014 16:11:00 Document Registration [id number] 03/30/2014 16:10:00 Document Registration [id number] 03/30/2014 16:10:00 Document Registration [id number] 03/30/2014 16:10:00 Document Registration [id number] 03/30/2014 16:10:00 Document Registration [id number] 03/30/2014 16:10:00 Document Registration [id number] 06/21/2012 09:56:00 Document Registration [id number] 06/21/2012 08:44:00 Document Registration [id number] 06/19/2012 09:36:00 Document Registration [id number] 04/25/2012 13:35:00 Document Registration [id number] 04/05/2012 10:09:00 Document Registration [id number] 04/04/2012 06:43:00 Document Registration [id number] 03/30/2012 11:39:00 Document Registration [id number] 03/29/2012 09:00:00 Document Registration [id number] 03/20/2012 08:43:00 Document Registration [id number] 02/15/2012 07:38:00 Document Registration [id number] 01/03/2012 06:18:00 Document Registration [id number] 12/28/2011 15:17:00 Document Registration [id number] 12/28/2011 13:01:00 Document Registration [id number] 12/28/2011 12:52:00 Document Registration [id number] 10/31/2011 05:46:00 Document Registration [id number] 10/25/2011 10:45:00 Document Registration [id number] 10/18/2011 14:47:00 Document Registration [id number] 10/18/2011 13:16:00 Document Registration [id number] 10/08/2011 12:53:00 Document Registration [id number] 09/21/2011 09:33:00 Document Registration [id number] 09/15/2011 08:21:00 Document Registration [id number] 09/01/2011 07:40:00 Document Registration [id number] 07/14/2011 16:26:00 Document Registration [id number] 07/04/2011 10:11:00 Document Registration [id number] 06/15/2011 09:39:00 Document Registration [id number] 06/07/2011 08:31:00 Document Registration [id number] 03/17/2011 08:45:00 Document Registration [id number] 01/16/2011 22:10:00 Document Registration [id number] 12/09/2010 09:30:00 Document Registration [id number] 11/01/2010 09:59:00 Document Registration [id number] 08/06/2010 09:28:00 Document Registration [id number] 07/26/2010 11:50:00 Document Registration [id number] 07/24/2010 23:45:00 Document Registration [id number] 07/12/2010 15:36:00 Document Registration [id number] 06/26/2010 21:26:00 Document Registration [id number] 06/21/2010 09:32:00 Document Registration [id number] 06/16/2010 10:05:00 Document Registration [id number] 06/09/2010 09:26:00 Document Registration [id number] 06/08/2010 09:18:00 Document Registration [id number] 03/10/2010 10:36:00 Document Registration [id number] 03/10/2010 08:47:00 Document Registration [id number] 03/02/2010 12:01:00 Document Registration [id number] 01/19/2010 07:55:00 Document Registration [id number] 01/11/2010 10:50:00 Document Registration [id number] 12/31/2009 12:25:00 Document Registration [id number] 12/29/2009 13:27:00 Document Registration [id number] 12/23/2009 13:36:00 Document Registration [id number] 12/22/2009 05:43:00 Document Registration [id number] 12/15/2009 07:25:00 Document Registration [id number] 11/23/2009 08:59:00 Document Registration [id number] 11/23/2009 08:28:00 Document Registration [id number] 11/17/2009 11:23:00 Document Registration [id number] 11/10/2009 16:30:00 Document Registration [id number] 10/04/2009 17:15:00 Document Registration [id number] 09/26/2009 21:24:00 Document Registration [id number] 09/21/2009 08:15:00 Document Registration [id number] 09/11/2009 06:55:00 Document Registration [id number] 09/10/2009 14:51:00 Document Registration [id number] 08/27/2009 09:53:00 Document Registration [id number] 08/24/2009 12:07:00 Document Registration [id number] 08/05/2009 16:30:00 Document Registration [id number] 07/29/2009 23:32:00 Document Registration [id number] 06/25/2009 15:06:00 Document Registration [id number] 05/25/2009 09:09:00 Document Registration [id number] 05/14/2009 12:31:00 Document Registration [id number] 04/07/2009 10:12:00 Document Registration [id number] 04/01/2009 10:10:00 Document Registration [id number] 03/02/2009 14:54:00 Document Registration [id number] 12/24/2007 09:23:00 Document Registration [id number] 10/31/2006 15:11:00 Document Registration [id number] 05/29/2006 09:51:00 Document Registration [id number] 03/09/2006 06:40:00 Document Registration [id number] 01/17/2006 08:34:00 Document Registration [id number] 01/10/2006 10:15:00 Document Registration [id number] 09/27/2017 10:00:00 09/27/2017 23:59:59 CLS Outpatient DICK ANGULO [facility] [id number] 05/11/2017 11:20:00 Document Registration [id number] 11/11/2016 14:40:00 Document Registration [id number] 03/11/2016 07:05:00 Document Registration [id number] 10/07/2013 09:20:00 10/07/2013 23:59:59 CLS Outpatient MARCELINO RIVAS DO [id number] 05/09/2013 09:56:00 05/09/2013 23:59:59 CLS Outpatient MARCELINO RIVAS DO [id number] 04/05/2013 10:23:00 04/05/2013 23:59:59 [facility] MARCELINO RIVAS DO [id number] 11/14/2016 14:08:00 Document Registration [id number] 02/23/2016 07:05:00 Document Registration [id number] 07/29/2016 16:07:00 Document Registration
[2018-02-03] MEDS ORDERED: ORPHENADRINE 60 MG/2 ML (NORFLEX) AMP IV STA (22:54)
[2018-02-03] MEDS ORDERED: fentaNYL INJECTION 100 MCG/2 ML AMP IVP ONE (23:30)
[2018-02-04] MEDS ORDERED: METOCLOPRAMIDE INJ 10 MG/2 ML (REGLAN) IVP ONE
[2018-02-04 00:55] VITALS: BP 119/63
--- NOTE | 2018-02-04 05:16 | Diagnostic Imaging Report ---
PROCEDURE: CT head wo r/o stroke. TECHNIQUE: Multiple contiguous axial images were obtained through the brain without the use of intravenous contrast. INDICATION: Headache Multiple contiguous axial CT images of the head are obtained. Comparison is made to study of 05/28/2014. Ventricles and sulci are within normal limits for size. Focal lucency in the subcortical white matter of the left frontal lobe is not appreciably changed. There is no evidence of hemorrhage or new infarct. There is no abnormal mass effect or shift of midline structures. Calvarium is intact and the visualized paranasal sinuses are clear. IMPRESSION: No acute abnormality or adverse change is identified. Dictated by: Dictated on workstation # [id number]
--- NOTE | 2018-02-04 05:18 | Diagnostic Imaging Report ---
INDICATION: Headache and cerebrovascular accident PA view of the chest is obtained with comparison made to study of 11/25/2017. Overall heart size and pulmonary vascularity are within normal limits. There is continued elevation of the right hemidiaphragm with linear atelectasis and/or scarring in the right lung base. There is no evidence of consolidation, pneumothorax or other adverse change. Surgical clips are again seen in the left neck. IMPRESSION: Elevation of the right hemidiaphragm with right basilar atelectasis and/or scarring similar to previous study. Dictated by: Dictated on workstation # [id number]
== END 2018-02-04 00:55 | disposition home or self-care (01) ==
LOC: EDUNIT# 21:52 → ER 21:53
DX: R51 Headache (principal); I10 Essential (primary) hypertension; E78.00 Pure hypercholesterolemia, unspecified; K21.9 Gastro-esophageal reflux disease without esophagitis; F41.9 Anxiety disorder, unspecified; F31.9 Bipolar disorder, unspecified; E11.9 Type 2 diabetes mellitus without complications; Z92.21 Personal history of antineoplastic chemotherapy; Z82.49 Family history of ischemic heart disease and other diseases of the circulatory system; Z80.0 Family history of malignant neoplasm of digestive organs; Z85.01 Personal history of malignant neoplasm of esophagus; Z87.19 Personal history of other diseases of the digestive system; Z95.9 Presence of cardiac and vascular implant and graft, unspecified; Z87.442 Personal history of urinary calculi; Z91.041 Radiographic dye allergy status; Z87.448 Personal history of other diseases of urinary system; Z88.5 Allergy status to narcotic agent; Z91.048 Other nonmedicinal substance allergy status; Z91.040 Latex allergy status; Z88.0 Allergy status to penicillin; Z87.891 Personal history of nicotine dependence; Z90.49 Acquired absence of other specified parts of digestive tract; Z90.710 Acquired absence of both cervix and uterus; Z98.51 Tubal ligation status; Z87.09 Personal history of other diseases of the respiratory system; Z86.718 Personal history of other venous thrombosis and embolism
CPT/HCPCS: 36415; 70450; 71045; 80053; 83735; 84443; 85025; 85610; 85730; 93005; 93041; 96374; 96375

== ENCOUNTER 2018-07-05 20:43 | Emergency (ER) | payer MEDICARE ==
[~2018-07-05] VITALS: Ht 170.2 cm; Wt 86.2 kg
[~2018-07-05 20:43] MED LIST changes: -AMLO10TA6 PO; +AMLO10TA7 PO; -LAMO25TA PO; +LAMO25TA8 PO
--- NOTE | 2018-07-05 21:13 | ED Back Pain ---
General Chief Complaint: Back Problems Stated Complaint: BACK PAIN Source of Information: Patient Exam Limitations: No Limitations History of Present Illness Date Seen by Provider: July 05, 2018 Time Seen by Provider: 21:13 Allergies and Home Medications Allergies Coded Allergies: Iodinated Contrast- Oral and IV Dye (Verified Allergy, Severe, HIVES, 10/02) COUGHING, SNEEZING, HIVES UPON TRACE AMOUNT OF CONTRAST. codeine (Verified Allergy, Intermediate, RASH/SWELLING; PATIENT HAS RECEIVED MORPHINE W/O PROBLEMS, 12/06/16) adhesive tape (Verified Allergy, Unknown, 12/06/16) latex (Verified Allergy, Unknown, 12/06/16) Penicillins (Verified Adverse Reaction, Mild, NAUSEA/VOMITING, 12/07/16) SHE CAN TAKE AUGMENTIN FINE Home Medications Amlodipine Besylate 10 Mg Tablet, 10 MG PO DAILY, (Reported) Atorvastatin Calcium 20 Mg Tablet, 20 MG PO DAILY, (Reported) Budesonide/Formoterol Fumarate 10.2 Gm Hfa.aer.ad, 2 PUFF IH PRN PRN for SHORTNESS OF BREATH, (Reported) Escitalopram Oxalate 20 Mg Tablet, 20 MG PO DAILY, (Reported) Gabapentin 300 Mg Capsule, 300 MG PO QID, (Reported) Hydrocodone/Acetaminophen 1 Each Tablet, 1 EACH PO Q4H PRN for PAIN-MODERATE Prescribed by: MARTHA LEE on 11/25/17 1419 Lamotrigine 200 Mg Tablet, 200 MG PO DAILY, (Reported) Levothyroxine Sodium 50 Mcg Tablet, 50 MCG PO DAILY, (Reported) Lurasidone HCl 40 Mg Tablet, 40 MG PO DAILY, (Reported) Pantoprazole Sodium 40 Mg Tablet.dr, 40 MG PO DAILY, (Reported) Past Kuwsbzx-Nostgy-Aegwub Hx Patient Social History Type Used: Cigarettes Former Smoker, Quit: Aug 11, 1986 2nd Hand Smoke Exposure: No Recent Foreign Travel: No Contact w/Someone Who Travel: No Recent Hopitalizations: No Immunizations Up To Date Tetanus Booster (TDap): Less than 5yrs PED Vaccines UTD: No Date of Pneumonia Vaccine: July 25, 2016 Date of Influenza Vaccine: July 25, 2016 Seasonal Allergies Seasonal Allergies: Yes Past Medical History Surgeries: Yes Abdominal, Adenoidectomy, Appendectomy, Bowel Surgery, Breast, Cardiac, Gallbladder, Hysterectomy, Oophorectomy, Orthopedic, Tonsillectomy, Tracheostomy , Tubal Ligation Respiratory: Yes (HAS INHALER PRN) Chronic Bronchitis Currently Using CPAP: No Cardiac: Yes (CARDIAC CATH-NO STENTS; BLOOD CLOT 2010 UPPER SHOULDER/ARM) Deep Vein Thrombosis, High Cholesterol, Hypertension Neurological: Yes Headaches /Migraines Reproductive Disorders: No Female Reproductive Disorders: Polycystic Ovarian Dis 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, Menopausal Sexually Transmitted Disease: No HIV/AIDS: No Genitourinary: Yes Kidney Stones Gastrointestinal: Yes Gastroesophageal Reflux, Chronic Constipation, Diverticulosis, Polyps Musculoskeletal: Yes Arthritis, Fibromyalgia Endocrine: Yes Diabetes, Non-Insulin dep HEENT: Yes (THROAT CANCER) Dysphagia Loss of Vision: Bilateral Hearing Impairment: Denies Cancer: Yes (OROPHARNYX CANCER) Did You Recieve Any Treatments: Yes What Type of Treatment Did You: Chemotherapy, Radiation, Surgical Intervention Psychosocial: Yes (MULTIPLE PSYCH ADMITS, OVERDOSES AND SUICIDE ATTEMPTS) Sleep Difficulties, Anxiety, Suicide Attempts, Bipolar, Depression Integumentary: No Blood Disorders: No Adverse Reaction/Blood Tranf: No Family Medical History Alzheimer's disease 19 MOTHER Arthritis 19 MOTHER Cardiovascular disease 19 MOTHER Cataracts 19 MOTHER Dementia 19 MOTHER Diabetes mellitus 19 FATHER Headache disorder Hypercholesterolemia 19 FATHER Hypertension 19 FATHER Neoplasm 19 FATHER (PANCREATIC CANCER) Heart Disease, Cancer, Hypertension, Psychiatric Problems Physical Exam Vital Signs Capillary Refill : Height, Weight, BMI Height: 5'7.00" Weight: 190lbs. 0.0oz. 86.734162pm; 27.9 BMI Method:Stated Progress/Results/Core Measures Results/Orders My Orders Orders - IFEOMA ERICKSON Ketorolac Injection (Toradol Injection) (07/05/18 21:15) Rx-Hydrocodone/Apap 5-325 Mg (Rx-Vicodin (07/05/18 21:15) Departure Impression Primary Impression: Back strain Disposition: 01 HOME, SELF-CARE Condition: Stable/Unchanged Departure-Patient Inst. Decision time for Depature: 21:13 Referrals: [facility] ([place]P/Family) Primary Care Physician Patient Instructions: Lumbar Muscle Strain (DC) Add. Discharge Instructions: You may use ibuprofen and Tylenol as directed by the bottle for pain relief. For pain unrelieved by ibuprofen and Tylenol you may use hydrocodone that was provided. Take medications as directed. Follow-up with your primary care provider within 1 week for recheck. Return back to the emergency room for worsening symptoms or concerns as needed. All discharge instructions reviewed with patient and/or family. Voiced understanding. Scripts Prednisone (Prednisone) 20 Mg Tab 40 MG PO DAILY, #10 TAB 0 Refills Prov: IFEOMA ERICKSON 07/05/18 Cyclobenzaprine HCl (Cyclobenzaprine HCl) 5 Mg Tablet 5 MG PO Q8H PRN for SPASMS, #10 TAB Prov: IFEOMA ERICKSON 07/05/18 IFEOMA ERICKSON July 05, 2018 21:13
[2018-07-05] MEDS ORDERED: RX-HYDROCODONE/APAP 5/325 MG #4 TAB PK PO PRN (21:15)
[2018-07-05] MEDS ORDERED: KETOROLAC 60 MG/2 ML VIAL IM ONE (21:15)
[2018-07-05] MEDS ORDERED: CYCL5TAB PO (21:16)
[2018-07-05] MEDS ORDERED: PRD20T PO (21:16)
[2018-07-05 21:27] VITALS: BP 140/98
== END 2018-07-05 21:28 | disposition home or self-care (01) ==
LOC: EDUNIT# 20:43 → ER 20:45
DX: S39.012A Strain of muscle, fascia and tendon of lower back, initial encounter (principal); G43.909 Migraine, unspecified, not intractable, without status migrainosus; E78.00 Pure hypercholesterolemia, unspecified; I10 Essential (primary) hypertension; K21.9 Gastro-esophageal reflux disease without esophagitis; E11.9 Type 2 diabetes mellitus without complications; F41.9 Anxiety disorder, unspecified; F31.9 Bipolar disorder, unspecified; M79.7 Fibromyalgia; Z91.041 Radiographic dye allergy status; Z85.818 Personal history of malignant neoplasm of other sites of lip, oral cavity, and pharynx; Z91.5 Personal history of self-harm; Z82.49 Family history of ischemic heart disease and other diseases of the circulatory system; Z80.0 Family history of malignant neoplasm of digestive organs; Z92.21 Personal history of antineoplastic chemotherapy; Z88.5 Allergy status to narcotic agent; Z87.448 Personal history of other diseases of urinary system; Z87.442 Personal history of urinary calculi; Z86.010 Personal history of colon polyps; Z87.19 Personal history of other diseases of the digestive system; Z91.048 Other nonmedicinal substance allergy status; Z91.040 Latex allergy status; Z88.0 Allergy status to penicillin; Z87.891 Personal history of nicotine dependence; Z90.49 Acquired absence of other specified parts of digestive tract; Z90.710 Acquired absence of both cervix and uterus; Z93.0 Tracheostomy status; Z98.51 Tubal ligation status; Z86.718 Personal history of other venous thrombosis and embolism; X58.XXXA Exposure to other specified factors, initial encounter
CPT/HCPCS: 99284

== ENCOUNTER 2018-09-15 13:32 | Emergency (ER) | payer MEDICARE ==
[~2018-09-15] VITALS: Ht 170.2 cm; Wt 87.1 kg
[~2018-09-15 13:32] MED LIST changes: +CYCL5TAB PO; +PRD20T PO
--- NOTE | 2018-09-15 13:44 | NUR ---
Patient ambulatory to ER room 10 with complaint of lower abdominal pain x 3 days with diarrhea. Patient states she has a history of diverticulitis and symptoms are similar to previous episodes. Patient is also complaining of a rash to mid abdomen that she noticed today. She applied Nystatin powder to the rash.
[2018-09-15 14:07] LABS: BASOPHILS % (AUTO) 0 % (0-10); CLARITY,URINE SLIGHTLY CLOUDY; COLOR,URINE YELLOW; EOSINOPHILS # (AUTO) 0.1 10^3/uL (0.0-0.3); EOSINOPHILS % (AUTO) 2 % (0-10); GLUCOSE, URINE (UA) NEGATIVE (NEGATIVE); HEMATOCRIT 40 % (35-52); KETONES,URINE 1+ (NEGATIVE); LEUKOCYTE ESTERASE ,URINE 1+ (NEGATIVE); LYMPHOCYTES % (AUTO) 25 % (12-44); MEAN CORPUSCULAR HEMOGLOBIN 29 PG (25-34); MEAN CORPUSCULAR HGB CONC 33 G/DL (32-36); MEAN CORPUSCULAR VOLUME 87 FL (80-99); MEAN PLATELET VOLUME 9.6 FL (7.4-10.4); MONOCYTES # (AUTO) 0.5 X 10^3 (0.0-1.0); MONOCYTES % (AUTO) 13 % (0-12); NEUTROPHILS # (AUTO) 2.4 X 10^3 (1.8-7.8); NEUTROPHILS % (AUTO) 61 % (42-75); NITRITE,URINE NEGATIVE (NEGATIVE); PH,URINE 5 (5-9); PLATELET COUNT 189 10^3/uL (130-400); PROTEIN,URINE 1+ (NEGATIVE); RED CELL DISTRIBUTION WIDTH 15.2 % (10.0-14.5); UROBILINOGEN,URINE NORMAL (NORMAL); WHITE BLOOD COUNT 3.9 10^3/uL (4.3-11.0)
--- NOTE | 2018-09-15 14:13 | ED Abdominal Pain ---
General Chief Complaint: Abdominal/GI Problems Stated Complaint: ABD PAIN / DIARRHEA Nursing Triage Note: COMPLAINS OF LEFT SIDED ABD PAIN AND THINKS IT IS RELATED TO HER DIVERTICULITIS. Sepsis Screen: No Definite Risk Source of Information: Caregiver Exam Limitations: No Limitations History of Present Illness Date Seen by Provider: Sep 15, 2018 Time Seen by Provider: 14:09 Initial Comments The patient is a 58-year-old white female who presents with complaints of left lower quadrant abdominal pain. She reports this pain began on Monday of this week. She believes it to be diverticulitis as she has had this before and even a segmental colon resection. She has not had an attack for about 10 years. She denies blood in the stools. The stools have been loose but not frankly watery. She has felt hot and sweaty but has not taken her temperature. Timing/Duration: 4-5 Days Severity/Quality: Moderate Location: LLQ Radiation: No Radiation Activities at Onset: None Allergies and Home Medications Allergies Coded Allergies: Iodinated Contrast- Oral and IV Dye (Verified Allergy, Severe, HIVES, 10/02/17) COUGHING, SNEEZING, HIVES UPON TRACE AMOUNT OF CONTRAST. codeine (Verified Allergy, Intermediate, RASH/SWELLING; PATIENT HAS RECEIVED MORPHINE W/O PROBLEMS, 12/06/16) adhesive tape (Verified Allergy, Unknown, 12/06/16) latex (Verified Allergy, Unknown, 12/06/16) Penicillins (Verified Adverse Reaction, Mild, NAUSEA/VOMITING, 12/07/16) SHE CAN TAKE AUGMENTIN FINE Home Medications Amlodipine Besylate 10 Mg Tablet, 10 MG PO DAILY, (Reported) Atorvastatin Calcium 20 Mg Tablet, 20 MG PO DAILY, (Reported) Budesonide/Formoterol Fumarate 10.2 Gm Hfa.aer.ad, 2 PUFF IH PRN PRN for SHORTNESS OF BREATH, (Reported) Cyclobenzaprine HCl 5 Mg Tablet, 5 MG PO Q8H PRN for SPASMS Prescribed by: IFEOMA ERICKSON on 07/05/182115 Escitalopram Oxalate 20 Mg Tablet, 20 MG PO DAILY, (Reported) Gabapentin 300 Mg Capsule, 300 MG PO QID, (Reported) Hydrocodone/Acetaminophen 1 Each Tablet, 1 EACH PO Q4H PRN for PAIN-MODERATE Prescribed by: MARTHA LEE on 11/25/17 1419 Lamotrigine 200 Mg Tablet, 200 MG PO DAILY, (Reported) Levothyroxine Sodium 50 Mcg Tablet, 50 MCG PO DAILY, (Reported) Lurasidone HCl 40 Mg Tablet, 40 MG PO DAILY, (Reported) Pantoprazole Sodium 40 Mg Tablet.dr, 40 MG PO DAILY, (Reported) Prednisone 20 Mg Tab, 40 MG PO DAILY Prescribed by: IFEOMA ERICKSON on 07/05/181 Patient Home Medication List Home Medication List Reviewed: Yes Review of Systems Review of Systems Constitutional: see HPI EENTM: No Symptoms Reported Respiratory: No Symptoms Reported Cardiovascular: No Symptoms Reported Gastrointestinal: See HPI Genitourinary: No Symptoms Reported Musculoskeletal: no symptoms reported Skin: no symptoms reported Psychiatric/Neurological: No Symptoms Reported Endocrine: No Symptoms Reported Hematologic/Lymphatic: No Symptoms Reported Past Osptfxc-Pijtbn-Cjpvuz Hx Past Med/Social Hx: Reviewed Nursing Past Med/Soc Hx Patient Social History Alcohol Use: Denies Use Recreational Drug Use: No Smoking Status: Former Smoker Type Used: Cigarettes Former Smoker, Quit: Aug 11, 1986 2nd Hand Smoke Exposure: No Recent Foreign Travel: No Contact w/Someone Who Travel: No Recent Infectious Disease Expo: No Recent Hopitalizations: No Immunizations Up To Date Tetanus Booster (TDap): Less than 5yrs PED Vaccines UTD: No Date of Pneumonia Vaccine: July 25, 2016 Date of Influenza Vaccine: July 25, 2016 Seasonal Allergies Seasonal Allergies: Yes Past Medical History Surgeries: Yes Abdominal, Adenoidectomy, Appendectomy, Bowel Surgery, Breast, Cardiac, Gallbladder, Hysterectomy, Oophorectomy, Orthopedic, Tonsillectomy, Tracheostomy, Tubal Ligation Respiratory: Yes (HAS INHALER PRN) Chronic Bronchitis Currently Using CPAP: No Cardiac: Yes (CARDIAC CATH-NO STENTS; BLOOD CLOT 2010 UPPER SHOULDER/ARM) Deep Vein Thrombosis, High Cholesterol, Hypertension Neurological: Yes Headaches /Migraines Reproductive Disorders: No Female Reproductive Disorders: Polycystic Ovarian Dis [employer] History: Hysterectomy, Menopausal Sexually Transmitted Disease: No HIV/AIDS: No Genitourinary: Yes Kidney Stones Gastrointestinal: Yes Gastroesophageal Reflux, Chronic Constipation, Diverticulosis, Polyps Musculoskeletal: Yes Arthritis, Fibromyalgia Endocrine: Yes Diabetes, Non-Insulin dep HEENT: Yes (THROAT CANCER) Dysphagia Loss of Vision: Bilateral Hearing Impairment: Denies Cancer: Yes (OROPHARNYX CANCER) Esophageal Did You Recieve Any Treatments: Yes What Type of Treatment Did You: Chemotherapy, Radiation, Surgical Intervention Psychosocial: Yes (MULTIPLE PSYCH ADMITS, OVERDOSES AND SUICIDE ATTEMPTS) Sleep Difficulties, Anxiety, Suicide Attempts, Bipolar, Depression Integumentary: No Blood Disorders: No Adverse Reaction/Blood Tranf: No Family Medical History Alzheimer's disease 19 MOTHER Arthritis 19 MOTHER Cardiovascular disease 19 MOTHER Cataracts 19 MOTHER Dementia 19 MOTHER Diabetes mellitus 19 FATHER Headache disorder Hypercholesterolemia 19 FATHER Hypertension 19 FATHER Neoplasm 19 FATHER (PANCREATIC CANCER) Heart Disease, Cancer, Hypertension, Psychiatric Problems Physical Exam Vital Signs Vital Signs - First Documented 09/15/18 13:40 Temp 98.8 Pulse 69 Resp 16 B/P (MAP) 130/67 (88) Pulse Ox 96 O2 Delivery Room Air Capillary Refill : Less Than 3 Seconds Height/Weight/BMI Height: 5'7.00" Weight: 192lbs. 0.0oz. 87.726007fk; 27.9 BMI Method:Stated General Appearance: WD/WN, no apparent distress HEENT: normal ENT inspection Neck: non-tender, full range of motion, supple, normal inspection Respiratory: chest non-tender, lungs clear, normal breath sounds, no respiratory distress Cardiovascular: normal peripheral pulses, regular rate, rhythm, no edema, no gallop, no JVD, no murmur Gastrointestinal: other (tenderness to palpation in both the right and left pelvic areas. Also noted is erythema consistent with yeast under the pannus) Progress/Results/Core Measures Results/Orders Lab Results Laboratory Tests Test 09/15/18 13:53 Range/Units White Blood Count 3.9 L 4.3-11.0 10^3/uL Red Blood Count 4.54 4.35-5.85 10^6/uL Hemoglobin 13.0 11.5-16.0 G/DL Hematocrit 40 35-52 % Mean Corpuscular Volume 87 80-99 FL Mean Corpuscular Hemoglobin 29 25-34 PG Mean Corpuscular Hemoglobin Concent 33 32-36 G/DL Red Cell Distribution Width 15.2 H 10.0-14.5 % Platelet Count 189 130-400 10^3/uL Mean Platelet Volume 9.6 7.4-10.4 FL Neutrophils (%) (Auto) 61 42-75 % Lymphocytes (%) (Auto) 25 12-44 % Monocytes (%) (Auto) 13 H 0-12 % Eosinophils (%) (Auto) 2 0-10 % Basophils (%) (Auto) 0 0-10 % Neutrophils # (Auto) 2.4 1.8-7.8 X 10^3 Lymphocytes # (Auto) 1.0 1.0-4.0 X 10^3 Monocytes # (Auto) 0.5 0.0-1.0 X 10^3 Eosinophils # (Auto) 0.1 0.0-0.3 10^3/uL Basophils # (Auto) 0.0 0.0-0.1 10^3/uL Urine Color YELLOW Urine Clarity SLIGHTLY CLOUDY Urine pH 5 5-9 Urine Specific [place] 1.030 H 1.016-1.022 Urine Protein 1+ H NEGATIVE Urine Glucose (UA) NEGATIVE NEGATIVE Urine Ketones 1+ H NEGATIVE Urine Nitrite NEGATIVE NEGATIVE Urine Bilirubin 1+ H NEGATIVE Urine Urobilinogen NORMAL NORMAL MG/DL Urine Leukocyte Esterase 1+ H NEGATIVE Urine RBC (Auto) 2+ H NEGATIVE Urine RBC NONE /HPF Urine WBC 0-2 /HPF Urine Squamous Epithelial Cells 10-25 H /HPF Urine Crystals PRESENT H /LPF Urine Calcium Oxalate Crystals MODERATE H /LPF Urine Bacteria FEW H /HPF Urine Casts NONE /LPF Urine Mucus MODERATE H /LPF Urine Culture Indicated NO Sodium Level 141 135-145 MMOL/L Potassium Level 3.9 3.6-5.0 MMOL/L Chloride Level 106 98-107 MMOL/L Carbon Dioxide Level 25 21-32 MMOL/L Anion Gap 10 5-14 MMOL/L Blood Urea Nitrogen 11 7-18 MG/DL Creatinine 0.89 0.60-1.30 MG/DL Estimat Glomerular Filtration Rate > 60 BUN/Creatinine Ratio 12 Glucose Level 103 70-105 MG/DL Calcium Level 9.4 8.5-10.1 MG/DL Corrected Calcium 9.5 8.5-10.1 MG/DL Total Bilirubin 0.3 0.1-1.0 MG/DL Aspartate Amino Transf (AST/SGOT) 13 5-34 U/L Alanine Aminotransferase (ALT/SGPT) 8 0-55 U/L Alkaline Phosphatase 63 40-136 U/L Total Protein 6.3 L 6.4-8.2 GM/DL Albumin 3.9 3.2-4.5 GM/DL My Orders Orders - DAVID STEINER MD Cbc With Automated Diff (09/15/18 13:50) Comprehensive Metabolic Panel (09/15/18 13:50) Ua Culture If Indicated (09/15/18 13:50) Ct Abdomen/Pelvis Wo (09/15/18 14:59) Vital Signs/I&O 09/15/18 13:40 Temp 98.8 Pulse 69 Resp 16 B/P (MAP) 130/67 (88) Pulse Ox 96 O2 Delivery Room Air Blood Pressure Mean: 88 Departure Communication (Admissions) ct SCAN did not confirm diverticulitis. Her white count was low normal at 3000. Accordingly and empirically and will plan to start her on oral antibiotics and a low Impression Primary Impression: abdominal pain/diverticulitis Disposition: HOME, SELF-CARE Condition: Stable/Unchanged Departure-Patient Inst. Decision time for Depature: 16:15 Referrals: [facility] (PCP/Family) Primary Care Physician Patient Instructions: Diverticulitis (DC) Add. Discharge Instructions: All discharge instructions reviewed with patient and/or family. Voiced understanding. Take only a low bulk/low fiber diet. Lots of liquids Antibiotics as prescribed. If no improvement in 48 hours see your provider for additional testing. Scripts Metronidazole (Flagyl) 500 Mg Tablet 500 MG PO twice a day, #10 TAB Prov: DAVID STEINER MD 09/15/18 Ciprofloxacin HCl (Cipro) 500 Mg Tablet 500 MG PO twice a day, #10 TAB Prov: DAVID STEINER MD 09/15/18 DAVID STEINER MD Sep 15, 2018 14:13
[2018-09-15 14:22] LABS: BACTERIA,URINE FEW /HPF; BILIRUBIN,URINE 1+ (NEGATIVE); CALCIUM OXALATE CRYSTALS,UR MODERATE /LPF; WBC,URINE 0-2 /HPF
[2018-09-15 14:27] LABS: ALANINE AMINOTRANSFERASE 8 U/L (0-55); ALBUMIN 3.9 GM/DL (3.2-4.5); ALKALINE PHOSPHATASE 63 U/L (40-136); BILIRUBIN,TOTAL 0.3 MG/DL (0.1-1.0); BUN/CREATININE RATIO 12; CALCIUM 9.4 MG/DL (8.5-10.1); CARBON DIOXIDE 25 MMOL/L (21-32); CHLORIDE 106 MMOL/L (98-107); CREATININE SERUM 0.89 MG/DL (0.60-1.30); GFR ESTIMATED > 60; GLUCOSE 103 MG/DL (70-105); POTASSIUM 3.9 MMOL/L (3.6-5.0); SODIUM 141 MMOL/L (135-145); TOTAL PROTEIN 6.3 GM/DL (6.4-8.2)
--- NOTE | 2018-09-15 15:46 | NUR ---
Patient back to room from CT. Patient awake and alert.
--- NOTE | 2018-09-15 15:57 | Diagnostic Imaging Report ---
PROCEDURE: CT abdomen and pelvis without contrast. TECHNIQUE: Multiple contiguous axial images were obtained through the abdomen and pelvis without the use of intravenous contrast. Auto Exposure Controls were utilized during the CT exam to meet ALARA standards for radiation dose reduction. INDICATION: Left side abdominal pain. History of diverticulitis. COMPARISON: Prior study from 12/01/2016. FINDINGS: There is elevation of the right hemidiaphragm. The gallbladder is absent. The liver and bile ducts appear normal. The spleen, pancreas and adrenals are normal. There is a 3 x 5 mm nonobstructing calculus in the lower pole of the right kidney. The left kidney is normal. The ureters and bladder are normal. The changes of prior surgery of the sigmoid colon with bowel sutures seen. There are scattered diverticula. No acute diverticulitis is evident. The small bowel is within normal limits. There is no free intraperitoneal air or fluid. There is no acute bony abnormality. IMPRESSION: There is a nonobstructing calculus in the right kidney. No acute abnormality is seen. Dictated by: Dictated on workstation # [id number]
[2018-09-15] MEDS ORDERED: METR500T PO (16:19)
[2018-09-15] MEDS ORDERED: CIPR-225 PO (16:19)
[2018-09-15] MEDS ORDERED: HYDR-4227 PO (16:29)
[2018-09-15 16:34] VITALS: BP 148/86
== END 2018-09-15 16:35 | disposition home or self-care (01) ==
LOC: EDUNIT# 13:32 → ER 13:33
DX: R10.32 Left lower quadrant pain (principal); J42 Unspecified chronic bronchitis; I10 Essential (primary) hypertension; E78.00 Pure hypercholesterolemia, unspecified; G43.909 Migraine, unspecified, not intractable, without status migrainosus; K21.9 Gastro-esophageal reflux disease without esophagitis; M79.7 Fibromyalgia; E11.9 Type 2 diabetes mellitus without complications; F31.9 Bipolar disorder, unspecified; F41.9 Anxiety disorder, unspecified; Z86.010 Personal history of colon polyps; Z87.442 Personal history of urinary calculi; Z86.718 Personal history of other venous thrombosis and embolism; Z88.5 Allergy status to narcotic agent; Z91.040 Latex allergy status; Z88.0 Allergy status to penicillin; Z91.041 Radiographic dye allergy status; Z88.8 Allergy status to other drugs, medicaments and biological substances; Z87.891 Personal history of nicotine dependence; Z90.49 Acquired absence of other specified parts of digestive tract; Z90.710 Acquired absence of both cervix and uterus; Z90.89 Acquired absence of other organs; Z93.0 Tracheostomy status; Z98.51 Tubal ligation status; Z85.01 Personal history of malignant neoplasm of esophagus; Z85.819 Personal history of malignant neoplasm of unspecified site of lip, oral cavity, and pharynx; Z82.49 Family history of ischemic heart disease and other diseases of the circulatory system; Z80.0 Family history of malignant neoplasm of digestive organs
CPT/HCPCS: 36415; 74176; 80053; 81000; 85025

== ENCOUNTER 2018-09-28 22:31 | Emergency (ER) | payer MEDICARE ==
[~2018-09-28] VITALS: Ht 170.2 cm; Wt 86.2 kg
[~2018-09-28 22:31] MED LIST changes: +CIPR-225 PO; +HYDR-4227 PO
--- OUTSIDE RECORDS SUMMARY | 2018-09-28 22:37 | XMS REPORT | Clinical Summary ---
Author Author [facility] Organization [facility] Address Unknown Phone Unavailable Care Team Providers Care Psychiatric Arnp Name Role Phone Estefani Mims MD Unavailable Neymar Crandall MD Unavailable Chyna Prater MA,[facility]-MAIL DELIVERER Unavailable Temitope Hopper MD PCP Duy Lawson [...] in the electronic medical record. If you d o not see the information that you expected, contact Release of Information in [facility] Information Management department at [phone] for further assistan ce in locating additional records.[facility] Allergies Comments Active Allergy Reactions Severity Noted Date Adhesive RASH 2011 Tachycardia, itching Codeine NAUSEA AND 04/22/2009 VOMITING Penicillins HIVES Medium 12/31/2014 Medications End Date Status Medication Sig Dispensed Refills Start Date Active omeprazole DR(+) Take 1 Cap by 90 Cap 3 (PRILOSEC) 40 mg capsule mouth daily. 1 30 minutes to 1 hour prior to a meal Active levothyroxine (SYNTHROID) Take 25 mcg 0 25 mcg tablet by mouth daily 30 minutes before breakfast. Active amLODIPine (NORVASC) 5 mg Take 5 mg by 0 tablet mouth daily. Active lithium carbonate SR Take 2 Tabs 60 Tab 1 (LITHOBID) 300 mg tablet by mouth at 6 bedtime daily. Take with food. Active lithium carbonate SR Take 1 Tab by 30 Tab 1 (LITHOBID) 300 mg tablet mouth daily 6 with breakfast. Take with food. Active nortriptyline (PAMELOR) Take 1 Cap by 30 Cap 1 50 mg capsule mouth at 6 bedtime daily. Active traZODone (DESYREL) 50 mg Take 1 Tab by 30 Tab 1 tablet mouth at 6 bedtime as needed for Sleep or Depression. 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 Resolved Problems Problem Noted Date Resolved Date Suicidal ideation 01/09/2016 01/18/2016 Suicidal ideation 05/25/2015 06/10/2015 Major depressive disorder, recurrent, severe without psychotic features 02/14/2015 05/26/2015 Suicidal thoughts 01/27/2015 02/11/2015 Bipolar 1 disorder, depressed, severe 01/27/2015 02/14/2015 Depression with suicidal ideation 12/29/2014 01/14/2015 Bipolar 1 disorder, mixed, partial remission 06/12/2014 05/26/2015 Family History Medical History Relation Name Comments Hypertension Brother Cancer Father Diabetes Father Hypertension Father Depression Mother High Cholesterol Mother Hypertension Mother Allergy-severe Neg Hx Anemia Neg Hx Anesthetic Complication Neg Hx Asthma Neg Hx Defect Neg Hx Blood Clots Neg Hx Dizziness Neg Hx Growth/Development Neg Hx Disorders Hearing Loss Neg Hx Heart Attack Neg Hx Migraines Neg Hx Seizures Neg Hx Stroke Neg Hx Relation Name Status Comments Brother Alive Father Mother Alive Social History Date Tobacco Use Types Packs/Day Years Used Quit: 03/06/1989 Former Smoker 0 20 Smokeless Tobacco: Former Quit: 03/06/1989 User Drinks/Week oz/Week Comments Alcohol Use 0.0 No Sex Assigned at Date Recorded Not on file Industry Job Start Date Occupation Not on file Not on file Not on file Travel End Travel History Travel Start No recent travel history available. 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 Body Mass Index Plan of Treatment Health Maintenance Due Date Last Done Comments HEPATITIS C SCREENING 1959 PHYSICAL (COMPREHENSIVE) 1966 EXAM HIV SCREENING 1974 DTAP/TDAP VACCINES (1 - 1977 Tdap) CERVICAL CANCER SCREENING 1989 BREAST CANCER SCREENING 1999 COLORECTAL CANCER 2009 SCREENING SHINGLES RECOMBINANT 2009 VACCINE (1 of 2) INFLUENZA VACCINE 12/04/2018 Results Not on filefrom Last 3 Months Insurance Type Payer Benefit Subscriber ID Effective Phone Address Plan / Dates Group Medicare MEDICARE MEDICARE xxxxxxxxxx 2011- PART A AND Present B PPO BCBS [facility] xxxxxxxxxxxx 2014-P PREF CARE resent Advance Directives 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 necessary based on Dx 06/10/2015 10:14 PM Full Code 05/25/2015 4:21 PM Provider has discussed Code Status No, discussion not w/Patient or Family? necessary based on Dx 02/14/2015 5:50 PM Full Code 01/27/2015 9:52 PM Provider has discussed Code Status No, discussion not w/Patient or Family? necessary based on Dx 01/15/2015 5:50 PM Full Code 01/02/2015 2:37 PM Provider has discussed Code Status No, discussion not w/Patient or Family? necessary based on Dx 01/02/2015 2:37 PM Full Code 12/29/2014 2:10 PM Provider has discussed Code Status No, more discussion w/Patient or Family? needed
--- OUTSIDE RECORDS SUMMARY | 2018-09-28 22:38 | XMS REPORT ---
Author Author Migration, Doctor Organization [facility] Address Unknown Phone Unavailable Care Team Providers Care Director Of Blood Name Role Phone Migration, Doctor Unavailable Unavailable PROBLEMS Type Condition ICD9-CM Code [id number] Code Onset Dates Condition Status SNOMED Code Problem Elevated serum creatinine R79.89 Active 085696775 Problem STATE HEP A (ADULT) DX V05.3 Active 951503944 Problem Anxiety F41.9 Active 77907237 Problem Bipolar 1 disorder, depressed, moderate F31.32 Active 60692793 Problem Acquired hypothyroidism E03.9 Active 371609481 Problem Essential hypertension I10 Active 67949061 Problem Gastroesophageal reflux disease with esophagitis K21.0 Active 432197802 Problem History of esophageal cancer Z85.01 Active 766081146 Problem GERD (gastroesophageal reflux disease) K21.9 Active 016698454 Problem Nephrolithiasis N20.0 Active 55529890 Problem Pure hypercholesterolemia E78.00 Active 086603734 Problem Slow transit constipation K59.01 Active 11177674 Problem Borderline personality disorder F60.3 Active 48507157 Problem Slow transit constipation K59.01 Active 34128077 Problem Polysubstance (including opioids) dependence with physiol dependence F19.20 Active 68689764 Problem Vitamin D insufficiency E55.9 Active 935343572 Problem Pre-diabetes R73.03 Active 000276933 Problem Seasonal allergies J30.2 Active 548103522 Problem Bipolar I disorder F31.9 Active 749849260 Problem Diverticulitis K57.92 Active 439154560 ALLERGIES No Information ENCOUNTERS Encounter Location Date Diagnosis [facility] [address] [facility] [id number] [address] Nov, [facility] [address] [id number] [address] Oct, [facility] [address] [id number] [address] Sep, Lower abdominal pain R10.30 ; Diverticulitis K57.92 and Slow transit constipation K59.[address] [address] Sep, Bipolar 1 disorder, depressed, moderate F31.[address] [address] Sep, Pre-diabetes R73.03 and Hypercholesteremia E78.00 [place] [address] Sep, Bipolar 1 disorder, depressed, moderate F31.32 ; Borderline personality disorder F60.3 ; Anxiety F41.9 and Polysubstance (including opioids) dependence with physiol dependence F19.[address] [address] Aug, Candidal intertrigo B37.2 ; Essential hypertension I10 ; GERD (gastroesophageal reflux disease) K21.9 ; Pure hypercholesterolemia E78.00 ; Pre-diabetes R73.03 ; Acquired hypothyroidism E03.9 and Chronic nausea R11.[address] [address] Aug, [address] [address] Aug, Essential hypertension I10 ; Acquired hypothyroidism E03.9 ; GERD (gastroesophageal reflux disease) K21.9 ; Pre-diabetes R73.03 and Bronchitis J40 [place] [id number] [place] [address] Aug, Bipolar 1 disorder, depressed, moderate F31.[address] [address] Aug, Essential hypertension I10 ; Bipolar 1 disorder, depressed, moderate F31.32 ; Acquired hypothyroidism E03.9 and Chronic nausea R11.[address] [address] July, [facility] [address] [place] [id number] [place] [address] 13 Jul, 2018 Pain of right lower leg M79.661 [facility] [id number] [place] [address] 07 Jul, 2018 Injury of left lower extremity, initial encounter S89.92XA [place] [address] [address] July, Acquired hypothyroidism E03.9 and Chronic nausea R11.0 [place] [address] [address] July, Bipolar 1 disorder, depressed, moderate F31.32 [place] [address] [place] [id number] [place] [address] Jun, Bipolar I disorder F31.9 and Anxiety F41.9 [place] [address] [address] Jun, Essential hypertension I10 [facility] [address] [address] May, Bronchitis J40 and Candidal intertrigo B37.2 [place] [address] [place] [id number] [place] [address] May, Bipolar I disorder F31.9 and Anxiety F41.9 [place] [address] [place] [id number] [place] [address] May, [facility] [address] [id number] [place] [address] Apr, Acute bronchitis, unspecified organism J20.9 and Acute upper respiratory infection J06.9 [place] [address] [place] [id number] [place] [address] Apr, [place] [address] [address] Mar, Bipolar 1 disorder, depressed, moderate F31.32 ; Borderline personality disorder F60.3 ; Anxiety F41.9 and Polysubstance (including opioids) dependence with physiol dependence F19.20 [place] [address] [place] [id number] Mar, Essential hypertension I10 ; Pure hypercholesterolemia E78.00 ; Candidal intertrigo B37.2 ; Pre-diabetes R73.03 ; Acquired hypothyroidism E03.9 and Chronic nausea R11.0 [place] [address] [address] Mar, Bipolar 1 disorder, depressed, moderate F31.32 and Anxiety F41.9 [facility] [address] [address] Mar, Acute gastroenteritis K52.9 and Acute bronchitis J20.[address] [address] Mar, Bipolar 1 disorder, depressed, moderate F31.32 [place] [address] [address] Mar, Bipolar 1 disorder, depressed, moderate F31.32 [place] [address] [address] Mar, [facility] [address] [address] Mar, Bipolar 1 disorder, depressed, moderate F31.32 [facility] [address] [address] Mar, [place] [address] [address] Feb, Bipolar 1 disorder, depressed, moderate F31.32 and Anxiety F41.9 [facility] [address] [address] Feb, Bipolar 1 disorder, depressed, moderate F31.32 [place] [address] [place] [id number] [place] [address] Feb, Bipolar 1 disorder, depressed, moderate F31.32 [facility] [id number] [place] [address] Feb, [facility] [id number] [place] [address] Jan, [facility] [address] [address] Dec, Bipolar 1 disorder, depressed, moderate F31.32 and Anxiety F41.9 [facility] [address] [id number] [place] [address] Dec, Bipolar 1 disorder, depressed, moderate F31.32 [facility] [address] [address] [id number] [place] [address] Dec, Bipolar 1 disorder, depressed, moderate F31.32 and Anxiety F41.9 [facility] [address] [id number] [place] [address] Dec, Encounter for immunization Z23 [facility] [address] [id number] [place] [address] 24 Nov, 2017 [facility] [address] [address] [id number] [place] [address] 17 Nov, 2017 Bipolar 1 disorder, depressed, moderate F31.32 and Anxiety F41.9 [facility] [id number] [place] [address] 13 Nov, 2017 Bipolar 1 disorder, depressed, moderate F31.32 [facility] [address] [id number] [place] [address] 12 Nov, 2017 [facility] [address] [id number] [place] [address] Nov, Bipolar 1 disorder, depressed, moderate F31.32 and Anxiety F41.9 [facility] [address] [place] [address] Oct, Bipolar 1 disorder, depressed, moderate F31.32 ; Anxiety F41.9 ; Borderline personality disorder F60.3 ; Polysubstance (including opioids) dependence with physiol dependence F19.20 and Other long term care pharmacist (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 Z79.899 [facility] [id number] [place] [address] Oct, Bipolar 1 disorder, depressed, moderate F31.32 [facility] [address] [id number] Sep, Encounter for dental examination Z01.20 [facility] [address] [address] Sep, Acute oral pain K13.79 [facility] [address] [address] Sep, Bipolar 1 disorder, depressed, moderate F31.32 [facility] [address] [address] Sep, Bipolar 1 disorder, depressed, moderate F31.32 [facility] [id number] [place] [address] Sep, Bipolar 1 disorder, depressed, moderate F31.32 [facility] [id number] [place] [address] Sep, Essential hypertension I10 ; Acquired hypothyroidism E03.9 ; Anxiety F41.9 ; Chronic nausea R11.0 and Irritant contact dermatitis due to plants, except food L24.7 [facility] [id number] [place] [address] Aug, Bipolar 1 disorder, depressed, moderate F31.32 [facility] [id number] [place] [address] Aug, Bipolar 1 disorder, depressed, moderate F31.32 [facility] [address] [address] Aug, Bipolar 1 disorder, depressed, moderate F31.32 [place] [address] [address] July, Candidal dermatitis B37.2 [place] [address] [id number] [place] [address] July, Acquired hypothyroidism E03.9 [place] [address] [address] July, Bipolar 1 disorder, depressed, moderate F31.32 [facility] [address] [address] July, Seasonal allergies J30.2 [place] [address] [address] July, Bipolar 1 disorder, depressed, moderate F31.32 [place] [address] [address] Jun, Pre-diabetes R73.03 [place] [address] [id number] [place] [address] Jun, Bipolar 1 disorder, depressed, moderate F31.32 ; Anxiety F41.9 ; Borderline personality disorder F60.3 ; Polysubstance (including opioids) dependence with physiol dependence F19.20 and Other specified abnormal findings of blood chemistry R79.89 [place] [address] [place] [id number] [place] [address] Jun, Bipolar 1 disorder, depressed, moderate F31.32 [place] [address] [id number] [place] [address] May, Bipolar 1 disorder, depressed, moderate F31.32 [place] [address] [id number] [place] [address] May, Bipolar 1 disorder, depressed, moderate F31.32 [place] [address] [address] May, [facility] [id number] [place] [address] May, [place] [address] [place] [id number] May, Bipolar 1 disorder, depressed, moderate F31.32 [place] [address] [address] May, Bipolar 1 disorder, depressed, moderate F31.32 [place] [address] [address] May, Other specified abnormal findings of blood chemistry R79.89 [place] [address] [address] 08 May, 2017 Essential hypertension I10 ; Acquired hypothyroidism E03.9 ; Gastroesophageal reflux disease with esophagitis K21.0 ; Hair loss L65.9 ; Hypokalemia, gastrointestinal losses E87.6 ; Pre-diabetes R73.03 ; Candidal dermatitis B37.2 and Pure hypercholesterolemia E78.00 [place] [address] [address] Apr, Bipolar 1 disorder, depressed, moderate F31.32 [place] [address] [address] Apr, Bipolar 1 disorder, depressed, moderate F31.32 [place] [address] [id number] [place] [address] Apr, Bipolar 1 disorder, depressed, moderate F31.32 and Anxiety F41.9 [facility] [address] [address] Mar, Encounter for immunization Z23 ; Fall, initial encounter W19.XXXA ; Rib pain on left side R07.81 and Left hip pain M25.552 [place] [address] [address] Mar, Bipolar 1 disorder, depressed, moderate F31.32 and Anxiety F41.9 [place] [address] [address] Mar, Bipolar 1 disorder, depressed, moderate F31.32 ; Anxiety F41.9 ; Borderline personality disorder F60.3 and Polysubstance (including opioids) dependence with physiol dependence F19.20 [place] [address] [address] Mar, Bipolar 1 disorder, depressed, moderate F31.32 and Anxiety F41.9 [facility] [address] [address] Feb, Irritant contact dermatitis, unspecified trigger L24.9 [place] [address] [address] Feb, [place] [address] [address] Feb, [place] [address] [address] Feb, Bipolar 1 disorder, depressed, moderate F31.32 and Anxiety F41.9 [place] [address] [address] Feb, Acute non-recurrent maxillary sinusitis J01.00 [place] [address] [address] Feb, [place] [address] [address] Feb, Bipolar 1 disorder, depressed, moderate F31.32 [place] [address] [place] [id number] Jan, [place] [address] [address] Jan, Bipolar 1 disorder, depressed, moderate F31.32 ; Anxiety F41.9 ; Borderline personality disorder F60.3 and Polysubstance (including opioids) dependence with physiol dependence F19.20 [place] [address] [place] [address] Jan, Bipolar 1 disorder, depressed, moderate F31.32 and Anxiety F41.9 [place] [address] Jan, Bipolar 1 disorder, depressed, moderate F31.32 ; Anxiety F41.9 ; Borderline personality disorder F60.3 and Polysubstance (including opioids) dependence with physiol dependence F19.20 [place] [address] Jan, Bipolar 1 disorder, depressed, moderate F31.32 and Anxiety F41.[address] [address] Dec, Hypokalemia, gastrointestinal losses E87.6 ; GERD (gastroesophageal reflux disease) K21.9 and Bipolar 1 disorder, depressed, moderate F31.32 [place] [address] [place] [id number] Dec, Bipolar 1 disorder, depressed, moderate F31.32 and Anxiety F41.9 [facility] [place] [address] [address] Dec, [place] [address] [address] Dec, [facility] [address] [place] [address] Dec, Fall (on) (from) other stairs and steps, initial encounter W10.8XXA ; Laceration of left lower extremity, initial encounter S81.812A ; Contusion of right knee, initial encounter S80.01XA and Contusion of right shoulder, initial encounter S40.011A [place] [address] [address] Dec, Bipolar 1 disorder, depressed, moderate F31.32 ; Anxiety F41.9 ; Borderline personality disorder F60.3 and Polysubstance (including opioids) dependence with physiol dependence F19.20 [place] [address] [place] [address] Dec, Bipolar 1 disorder, depressed, moderate F31.32 and Anxiety F41.9 [place] [address] [place] [address] Dec, [place] [address] Dec, Hospital discharge follow-up Z09 ; Nephrolithiasis N20.0 ; Essential hypertension I10 ; Gastroesophageal reflux disease with esophagitis K21.0 and Anxiety F41.9 [place] [address] [place] [id number] Nov, [facility] [address] [id number] Nov, Dysuria R30.0 and Acute cystitis with hematuria N30.01 [facility] [place] [address] [address] Nov, [place] [address] [address] Nov, [place] [address] [address] Nov, Gastroesophageal reflux disease with esophagitis K21.0 ; Hypercholesteremia E78.00 and Acquired hypothyroidism E03.9 [facility] [address] [address] Nov, Left wrist pain M25.532 and Contusion of left wrist, initial encounter S60.212A [place] [address] [address] Nov, Bipolar 1 disorder, depressed, moderate F31.32 ; Anxiety F41.9 ; Borderline personality disorder F60.3 and Polysubstance (including opioids) dependence with physiol dependence F19.20 [facility] [address] [id number] [place] [address] 15 Nov, 2016 Abdominal pain R10.9 and GERD (gastroesophageal reflux disease) K21.9 [facility] [address] [id number] [place] [address] 12 Nov, 2016 Hypokalemia, gastrointestinal losses E87.6 [place] [address] [address] 11 Nov, 2016 Dehydration E86.0 ; Hypokalemia, gastrointestinal losses E87.6 and Vaginal candidiasis B37.3 [place] [address] [address] 08 Nov, 2016 Abnormal weight loss R63.4 ; Diarrhea, unspecified R19.7 ; Vomiting, unspecified R11.10 ; Generalized abdominal pain R10.84 and Decreased breath sounds R06.89 [place] [address] [place] [id number] [place] [address] Oct, Bipolar 1 disorder, depressed, moderate F31.32 and Anxiety F41.9 [place] [address] [id number] [place] [address] Sep, Bipolar 1 disorder, depressed, moderate F31.32 ; Anxiety F41.9 ; Borderline personality disorder F60.3 and Polysubstance (including opioids) dependence with physiol dependence F19.20 [facility] [address] [id number] [place] [address] Sep, Bipolar 1 disorder, depressed, moderate F31.32 and Anxiety F41.9 [place] [address] [place] [id number] [place] [address] Sep, Bipolar 1 disorder, depressed, moderate F31.32 [place] [address] [address] Sep, Bipolar 1 disorder, depressed, moderate F31.32 and Anxiety F41.9 [facility] [address] [place] [id number] [place] [address] Sep, Pain of toe of right foot M79.674 [place] [address] [place] [id number] [place] [address] Sep, [facility] [address] [address] Sep, Cellulitis of right ankle L03.115 [place] [address] [address] Sep, Bipolar 1 disorder, depressed, moderate F31.32 and Anxiety F41.9 [place] [address] [address] Sep, [place] [address] [address] Sep, [place] [address] [address] Sep, Bipolar 1 disorder, depressed, moderate F31.32 and Anxiety F41.9 [place] [address] [id number] [place] [address] Sep, Accidental spider bite T63.301A [place] [address] [address] Aug, Bipolar 1 disorder, depressed, moderate F31.32 ; Anxiety F41.9 ; Borderline personality disorder F60.3 and Polysubstance (including opioids) dependence with physiol dependence F19.20 [place] [address] [address] Aug, [place] [address] [address] Aug, Bipolar 1 disorder, depressed, moderate F31.32 and Anxiety F41.9 [place] [address] [id number] [place] [address] Aug, Pre-diabetes R73.03 ; Acute seasonal allergic rhinitis due to pollen J30.1 ; Hypercholesteremia E78.00 and Nausea R11.0 [place] [address] [id number] [place] [address] Aug, [place] [address] [address] Aug, Bipolar 1 disorder, depressed, moderate F31.32 and Anxiety F41.9 [place] [address] [address] Aug, [place] [address] [address] Aug, [place] [address] [address] Aug, [place] [address] [address] Aug, Bipolar 1 disorder, depressed, moderate F31.32 and Anxiety F41.9 [place] [address] [address] Aug, [facility] [address] [place] [id number] [place] [address] Aug, Insect bite, initial encounter W57.XXXA and Cellulitis of left lower leg L03.116 [place] [address] [place] [id number] [place] [address] Aug, Bipolar 1 disorder, depressed, moderate F31.32 and Borderline personality disorder F60.3 [place] [address] [address] July, [place] [address] [place] [id number] [place] [address] July, [facility] [address] [place] [address] 25 Jul, 2016 Encounter for routine adult health examination with abnormal findings Z00.01 ; History of esophageal cancer Z85.01 ; Bipolar 1 disorder, depressed, moderate F31.32 ; Anxiety F41.9 ; Acquired hypothyroidism E03.9 ; Essential hypertension I10 ; Gastroesophageal reflux disease with esophagitis K21.0 and Encounter for immunization Z23 [place] [address] [place] [id number] 18 Jul, 2016 Bipolar 1 disorder, depressed, moderate F31.32 and Anxiety F41.9 [place] [address] [place] [address] July, [place] [address] [place] [address] July, Bipolar 1 disorder, depressed, moderate F31.32 and Anxiety F41.9 [place] [address] [address] July, Bipolar 1 disorder, depressed, moderate F31.32 [place] [address] [address] July, Bipolar 1 disorder, depressed, moderate F31.32 and Anxiety F41.9 [place] [address] [place] [id number] [place] [address] Jun, Bipolar 1 disorder, depressed, moderate F31.32 [place] [address] [place] [id number] [place] [address] Jun, Bipolar 1 disorder, depressed, moderate F31.32 and Borderline personality disorder F60.3 [place] [address] [address] Jun, Bipolar 1 disorder, depressed, moderate F31.32 [place] [address] [id number] [place] [address] Jun, Bipolar 1 disorder, depressed, moderate F31.32 [place] [address] [place] [id number] [place] [id number] May, Bipolar 1 disorder, depressed, moderate F31.32 and Anxiety F41.9 [facility] [address] [place] [id number] [place], [place] [address] May, Bipolar 1 disorder, depressed, moderate F31.32 and Anxiety F41.9 [place] [address] [address] May, Bipolar 1 disorder, depressed, moderate F31.32 and Anxiety F41.9 [place] [address] [place] [id number] [place] [address] May, Bipolar 1 disorder, depressed, moderate F31.32 and Borderline personality disorder F60.3 [place] [address] [place] [id number] [place] [address] May, [place] [address] [address] May, Bipolar 1 disorder, depressed, moderate F31.32 and Anxiety F41.9 [place] [address] [address] May, Bipolar 1 disorder, depressed, moderate F31.32 and Anxiety F41.9 [place] [address] [place] [id number] [place] [phone] May, [facility] [address] [place] [id number] [place] [phone] May, Bipolar 1 disorder, depressed, moderate F31.32 [facility] [address] [place] [id number] [place] [phone] May, Bipolar 1 disorder, depressed, moderate F31.32 and Generalized anxiety disorder F41.1 [facility] [address] [place] [id number] [place] [address] [place], [place] [id number] Apr, Bipolar 1 disorder, depressed, moderate F31.32 and Anxiety F41.9 [facility] [id number] [place] [id number] Apr, [place] [id number] [place], [place] [address] Apr, Bipolar 1 disorder, depressed, moderate F31.32 and Anxiety F41.9 [place] [id number] [place] [phone] Apr, Bipolar 1 disorder, depressed, moderate F31.32 and Anxiety F41.9 [place] [id number] [place] [phone] Apr, Bipolar affective disorder, depressed, severe F31.4 and Generalized anxiety disorder F41.1 [place] [id number] [place] [phone] Mar, Bipolar 1 disorder, depressed, moderate F31.32 and Anxiety F41.9 [place] [id number] [place] [id number] Mar, Bipolar 1 disorder, depressed, moderate F31.32 and Anxiety F41.9 [place] [id number] [place] [phone] Mar, Bipolar 1 disorder, mixed, moderate F31.62 [place] [id number] [place] [phone] Mar, [place] [id number] [place] [phone] Mar, Bipolar 1 disorder, mixed, moderate F31.62 ; Generalized anxiety disorder F41.1 and Other long term care pharmacist (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 Z79.899 [place] [id number] [place] [id number] Feb, Bipolar 1 disorder, depressed, moderate F31.32 and Anxiety F41.9 [place] [id number] [place] [phone] Feb, Bipolar 1 disorder, depressed, moderate F31.32 and Other long term care pharmacist (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 Z79.899 [facility] [id number] [place] [phone] Feb, [facility] [id number] [place] [phone] Feb, Bipolar 1 disorder, depressed, moderate F31.32 and Anxiety F41.9 [place] [id number] [place] [phone] Feb, Bipolar 1 disorder, depressed, moderate F31.32 and Other long term care pharmacist (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 Z79.899 [facility] [id number] [place] [phone] Feb, Bipolar 1 disorder, depressed, moderate F31.32 and Anxiety F41.9 [place] [id number] [place] [phone] Dec, Bipolar 1 disorder, depressed, moderate F31.32 and Anxiety F41.9 [place] [id number] [place] [phone] Oct, [place] [id number] [place] [id number] Oct, [facility] [id number] [place] [phone] May, [place] [id number] [place] [phone] May, [facility] [id number] [place] [phone] Mar, [facility] [id number] [place], [place] [id number] Mar, IMMUNIZATIONS No Known Immunizations SOCIAL HISTORY [...] and Neck 2004 Hospitalization History [facility] Psychiatric Admission 2015
--- OUTSIDE RECORDS SUMMARY | 2018-09-28 22:39 | XMS REPORT ---
Author Author GURINDER NORTON Organization [facility] Address [address] [place] [address] Care Team Providers Care Chemical Educator Name Role Phone GURINDER NORTON Unavailable PROBLEMS Type Condition ICD9-CM Code SFY69-AX Code Onset Dates Condition Status SNOMED Code Problem Gastroesophageal reflux disease with esophagitis K21.0 Active 317910882 Problem Polysubstance (including opioids) dependence with physiol dependence F19.20 Active 18006091 Problem History of esophageal cancer Z85.01 Active 496577997 Problem Seasonal allergies J30.2 Active 022699005 Problem Pre-diabetes R73.03 Active 171064356 Problem GERD (gastroesophageal reflux disease) K21.9 Active 603836330 Problem Borderline personality disorder F60.3 Active 88958739 Problem Pure hypercholesterolemia E78.00 Active 315439820 Problem Nephrolithiasis N20.0 Active 50694961 Problem STATE HEP A (ADULT) DX V05.3 Active 433020322 Problem Bipolar 1 disorder, depressed, moderate F31.32 Active 57376933 Problem Anxiety F41.9 Active 51361820 Problem Vitamin D insufficiency E55.9 Active 105894400 Problem Essential hypertension I10 Active 28567046 Problem Elevated serum creatinine R79.89 Active 421229568 Problem Acquired hypothyroidism E03.9 Active 092752644 ALLERGIES No Information ENCOUNTERS Encounter Location Date Diagnosis [facility] [id number] [address] Mar, [facility] [address] [address] Mar, [facility] [address] [address] Mar, [facility] [id number] [address] Feb, Bipolar 1 disorder, depressed, moderate F31.32 and Anxiety F41.9 [facility] [id number] [place] [address] Feb, Bipolar 1 disorder, depressed, moderate F31.32 [facility] [id number] [place] [address] Feb, Bipolar 1 disorder, depressed, moderate F31.32 [facility] [id number] [place] [address] Feb, [facility] [id number] [place] [address] Jan, [facility] [id number] [place] [address] Dec, Bipolar 1 disorder, depressed, moderate F31.32 and Anxiety F41.9 [facility] [id number] [place] [address] Dec, Bipolar 1 disorder, depressed, moderate F31.32 [facility] [id number] [place] [address] Dec, Bipolar 1 disorder, depressed, moderate F31.32 and Anxiety F41.9 [facility] [id number] [place] [address] Dec, Encounter for immunization Z23 [facility] [id number] [place] [address] Nov, [facility] [id number] [place] [address] Nov, Bipolar 1 disorder, depressed, moderate F31.32 and Anxiety F41.9 [facility] [id number] [place] [address] Nov, Bipolar 1 disorder, depressed, moderate F31.32 [facility] [id number] [place] [address] Nov, [facility] [address] [place] [address] Nov, Bipolar 1 disorder, depressed, moderate F31.32 and Anxiety F41.9 [facility] [id number] [place] [address] Oct, Bipolar 1 disorder, depressed, moderate F31.32 ; Anxiety F41.9 ; Borderline personality disorder F60.3 ; Polysubstance (including opioids) dependence with physiol dependence F19.20 and Other group home (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 Z79.899 [facility] [address] [address] Oct, Bipolar 1 disorder, depressed, moderate F31.32 [facility] [id number] [place] [id number] Sep, Encounter for dental examination Z01.20 [facility] [address] [address] Sep, Acute oral pain K13.79 [facility] [address] [address] Sep, Bipolar 1 disorder, depressed, moderate F31.32 [facility] [id number] [place] [address] Sep, Bipolar 1 disorder, depressed, moderate F31.32 [facility] [id number] [place] [address] Sep, Bipolar 1 disorder, depressed, moderate F31.32 [facility] [id number] [place] [address] Sep, Essential hypertension I10 ; Acquired hypothyroidism E03.9 ; Anxiety F41.9 ; Chronic nausea R11.0 and Irritant contact dermatitis due to plants, except food L24.7 [facility] [id number] [place] [address] Aug, Bipolar 1 disorder, depressed, moderate F31.32 [place] [id number] [place] [address] Aug, Bipolar 1 disorder, depressed, moderate F31.32 [place] [address] [address] Aug, Bipolar 1 disorder, depressed, moderate F31.32 [place] [address] [address] July, Candidal dermatitis B37.2 [address] [place] [address] [address] July, Acquired hypothyroidism E03.9 [place] [address] [address] July, Bipolar 1 disorder, depressed, moderate F31.32 [facility] [address] [address] July, Seasonal allergies J30.2 [address] [address] July, Bipolar 1 disorder, depressed, moderate F31.32 [address] [address] [address] Jun, Pre-diabetes R73.03 [address] [place] [address] [address] Jun, Bipolar 1 disorder, depressed, moderate F31.32 ; Anxiety F41.9 ; Borderline personality disorder F60.3 ; Polysubstance (including opioids) dependence with physiol dependence F19.20 and Other specified abnormal findings of blood chemistry R79.89 [place] [address] [address] Jun, Bipolar 1 disorder, depressed, moderate F31.32 [address] [place] [address] [address] May, Bipolar 1 disorder, depressed, moderate F31.32 [place] [id number] [place] [address] May, Bipolar 1 disorder, depressed, moderate F31.32 [address] [address] [address] May, [address] [place] [address] [address] May, [place] [address] [address] May, Bipolar 1 disorder, depressed, moderate F31.32 [place] [address] [address] May, Bipolar 1 disorder, depressed, moderate F31.32 [address] [address] [address] May, Other specified abnormal findings of blood chemistry R79.89 [address] [place] [address] [address] May, Essential hypertension I10 ; Acquired hypothyroidism E03.9 ; Gastroesophageal reflux disease with esophagitis K21.0 ; Hair loss L65.9 ; Hypokalemia, gastrointestinal losses E87.6 ; Pre-diabetes R73.03 ; Candidal dermatitis B37.2 and Pure hypercholesterolemia E78.00 [place] [id number] [place] [address] Apr, Bipolar 1 disorder, depressed, moderate F31.32 [place] [id number] [place] [address] Apr, Bipolar 1 disorder, depressed, moderate F31.32 [place] [address] [address] Apr, Bipolar 1 disorder, depressed, moderate F31.32 and Anxiety F41.9 [facility] [address] [address] Mar, Encounter for immunization Z23 ; Fall, initial encounter W19.XXXA ; Rib pain on left side R07.81 and Left hip pain M25.552 [facility] [address] [address] Mar, Bipolar 1 disorder, depressed, moderate F31.32 and Anxiety F41.9 [address] [address] [address] Mar, Bipolar 1 disorder, depressed, moderate F31.32 ; Anxiety F41.9 ; Borderline personality disorder F60.3 and Polysubstance (including opioids) dependence with physiol dependence F19.20 [place] [place] [address] [address] Mar, Bipolar 1 disorder, depressed, moderate F31.32 and Anxiety F41.9 [facility] [address] [address] Feb, Irritant contact dermatitis, unspecified trigger L24.9 [facility] [address] [address] Feb, [address] [address] Feb, [address] [place] [address] Feb, Bipolar 1 disorder, depressed, moderate F31.32 and Anxiety F41.9 [facility] [address] [address] Feb, Acute non-recurrent maxillary sinusitis J01.00 [facility] [address] [address] Feb, [facility] [address] [address] Feb, Bipolar 1 disorder, depressed, moderate F31.32 [address] [address] [address] Jan, [place] [id number] [place] [address] Jan, Bipolar 1 disorder, depressed, moderate F31.32 ; Anxiety F41.9 ; Borderline personality disorder F60.3 and Polysubstance (including opioids) dependence with physiol dependence F19.20 [address] [place] [address] Jan, Bipolar 1 disorder, depressed, moderate F31.32 and Anxiety F41.9 [place] [id number] [place] [address] Jan, Bipolar 1 disorder, depressed, moderate F31.32 ; Anxiety F41.9 ; Borderline personality disorder F60.3 and Polysubstance (including opioids) dependence with physiol dependence F19.20 [place] [address] [address] Jan, Bipolar 1 disorder, depressed, moderate F31.32 and Anxiety F41.9 [place] [id number] [place] [address] Dec, Hypokalemia, gastrointestinal losses E87.6 ; GERD (gastroesophageal reflux disease) K21.9 and Bipolar 1 disorder, depressed, moderate F31.32 [place] [id number] [place] [address] Dec, Bipolar 1 disorder, depressed, moderate F31.32 and Anxiety F41.9 [facility] [id number] [place] [address] Dec, [address] [address] Dec, [facility] [id number] [place] [address] Dec, Fall (on) (from) other stairs and steps, initial encounter W10.8XXA ; Laceration of left lower extremity, initial encounter S81.812A ; Contusion of right knee, initial encounter S80.01XA and Contusion of right shoulder, initial encounter S40.011A [address] [address] Dec, Bipolar 1 disorder, depressed, moderate F31.32 ; Anxiety F41.9 ; Borderline personality disorder F60.3 and Polysubstance (including opioids) dependence with physiol dependence F19.20 [address] [address] Dec, Bipolar 1 disorder, depressed, moderate F31.32 and Anxiety F41.9 [address] [address] Dec, [address] [address] Dec, Hospital discharge follow-up Z09 ; Nephrolithiasis N20.0 ; Essential hypertension I10 ; Gastroesophageal reflux disease with esophagitis K21.0 and Anxiety F41.9 [address] [address] Nov, [facility] [address] [address] Nov, Dysuria R30.0 and Acute cystitis with hematuria N30.01 [facility] [address] [address] Nov, [address] [address] [address] Nov, [address] [place] [address] Nov, Gastroesophageal reflux disease with esophagitis K21.0 ; Hypercholesteremia E78.00 and Acquired hypothyroidism E03.9 [facility] [address] [address] 18 Nov, 2016 Left wrist pain M25.532 and Contusion of left wrist, initial encounter S60.212A [place] [id number] [place] [address] 18 Nov, 2016 Bipolar 1 disorder, depressed, moderate F31.32 ; Anxiety F41.9 ; Borderline personality disorder F60.3 and Polysubstance (including opioids) dependence with physiol dependence F19.20 [facility] [address] [address] 15 Nov, 2016 Abdominal pain R10.9 and GERD (gastroesophageal reflux disease) K21.9 [address] [address] 12 Nov, 2016 Hypokalemia, gastrointestinal losses E87.6 [address] [place] [address] [address] 11 Nov, 2016 Dehydration E86.0 ; Hypokalemia, gastrointestinal losses E87.6 and Vaginal candidiasis B37.3 [place] [id number] [place] [address] 08 Nov, 2016 Abnormal weight loss R63.4 ; Diarrhea, unspecified R19.7 ; Vomiting, unspecified R11.10 ; Generalized abdominal pain R10.84 and Decreased breath sounds R06.89 [place] [id number] [place] [address] Oct, Bipolar 1 disorder, depressed, moderate F31.32 and Anxiety F41.9 [place] [id number] [place] [address] Sep, Bipolar 1 disorder, depressed, moderate F31.32 ; Anxiety F41.9 ; Borderline personality disorder F60.3 and Polysubstance (including opioids) dependence with physiol dependence F19.20 [facility] [id number] [place] [address] 27 Sep, 2016 Bipolar 1 disorder, depressed, moderate F31.32 and Anxiety F41.9 [address] [place] [address] [place] [address] Sep, Bipolar 1 disorder, depressed, moderate F31.32 [address] [place] [address] [address] Sep, Bipolar 1 disorder, depressed, moderate F31.32 and Anxiety F41.9 [facility] [address] [address] Sep, Pain of toe of right foot M79.674 [address] [place] [address] [address] Sep, [facility] [place] [address] [address] Sep, Cellulitis of right ankle L03.115 [place] [address] [address] Sep, Bipolar 1 disorder, depressed, moderate F31.32 and Anxiety F41.9 [place] [id number] [place] [address] Sep, [address] [address] [address] Sep, [place] [address] [address] Sep, Bipolar 1 disorder, depressed, moderate F31.32 and Anxiety F41.9 [place] [id number] [place] [address] Sep, Accidental spider bite T63.301A [place] [address] [address] Aug, Bipolar 1 disorder, depressed, moderate F31.32 ; Anxiety F41.9 ; Borderline personality disorder F60.3 and Polysubstance (including opioids) dependence with physiol dependence F19.20 [place] [address] [address] Aug, [facility] [address] [place] [address] Aug, Bipolar 1 disorder, depressed, moderate F31.32 and Anxiety F41.9 [facility] [id number] [place] [address] Aug, Pre-diabetes R73.03 ; Acute seasonal allergic rhinitis due to pollen J30.1 ; Hypercholesteremia E78.00 and Nausea R11.0 [place] [id number] [place] [address] Aug, [place] [address] [address] Aug, Bipolar 1 disorder, depressed, moderate F31.32 and Anxiety F41.9 [place] [address] [address] Aug, [facility] [address] [address] Aug, [place] [address] [address] Aug, [facility] [id number] [place] [address] Aug, Bipolar 1 disorder, depressed, moderate F31.32 and Anxiety F41.9 [place] [id number] [place] [address] Aug, [facility] [id number] [place] [address] 03 Aug, 2016 Insect bite, initial encounter W57.XXXA and Cellulitis of left lower leg L03.116 [place] [id number] [place] [address] Aug, Bipolar 1 disorder, depressed, moderate F31.32 and Borderline personality disorder F60.3 [place] [address] [place] [address] July, [place] [address] [address] July, [place] [address] [address] July, Encounter for routine adult health examination with abnormal findings Z00.01 ; History of esophageal cancer Z85.01 ; Bipolar 1 disorder, depressed, moderate F31.32 ; Anxiety F41.9 ; Acquired hypothyroidism E03.9 ; Essential hypertension I10 ; Gastroesophageal reflux disease with esophagitis K21.0 and Encounter for immunization Z23 [place] [address] [address] July, Bipolar 1 disorder, depressed, moderate F31.32 and Anxiety F41.[address] [address] July, [place] [address] [address] July, Bipolar 1 disorder, depressed, moderate F31.32 and Anxiety F41.9 [place] [address] [address] July, Bipolar 1 disorder, depressed, moderate F31.32 [place] [address] [address] July, Bipolar 1 disorder, depressed, moderate F31.32 and Anxiety F41.9 [place] [address] [address] Jun, Bipolar 1 disorder, depressed, moderate F31.[address] [address] Jun, Bipolar 1 disorder, depressed, moderate F31.32 and Borderline personality disorder F60.[address] [address] Jun, Bipolar 1 disorder, depressed, moderate F31.32 [facility] [address] [place] [address] Jun, Bipolar 1 disorder, depressed, moderate F31.32 [facility] [id number] [place], [place] [address] May, Bipolar 1 disorder, depressed, moderate F31.32 and Anxiety F41.9 [facility] [id number] [place], [place] [address] May, Bipolar 1 disorder, depressed, moderate F31.32 and Anxiety F41.9 [facility] [id number] [place] [address] May, Bipolar 1 disorder, depressed, moderate F31.32 and Anxiety F41.9 [facility] [id number] [place] [address] May, Bipolar 1 disorder, depressed, moderate F31.32 and Borderline personality disorder F60.3 [facility] [id number] [place] [address] May, [facility] [id number] [place] [address] May, Bipolar 1 disorder, depressed, moderate F31.32 and Anxiety F41.9 [facility] [address] [place] [address] May, Bipolar 1 disorder, depressed, moderate F31.32 and Anxiety F41.9 [facility] [id number] [place] [address] May, [facility] [id number] [place] [address] May, Bipolar 1 disorder, depressed, moderate F31.32 [facility] [id number] [place] [address] May, Bipolar 1 disorder, depressed, moderate F31.32 and Generalized anxiety disorder F41.1 [place] [address] [place] [address] 28 Apr, 2016 Bipolar 1 disorder, depressed, moderate F31.32 and Anxiety F41.9 [place] [id number] [place] [address] 27 Apr, 2016 [place] [id number] [place] [address] 13 Apr, 2016 Bipolar 1 disorder, depressed, moderate F31.32 and Anxiety F41.9 [place] [id number] [place] [address] 09 Apr, 2016 Bipolar 1 disorder, depressed, moderate F31.32 and Anxiety F41.9 [place] [id number] [place] [address] 07 Apr, 2016 Bipolar affective disorder, depressed, severe F31.4 and Generalized anxiety disorder F41.1 [place] [id number] [place] [address] Mar, Bipolar 1 disorder, depressed, moderate F31.32 and Anxiety F41.9 [place] [id number] [place] [address] Mar, Bipolar 1 disorder, depressed, moderate F31.32 and Anxiety F41.9 [place] [id number] [place] [address] Mar, Bipolar 1 disorder, mixed, moderate F31.62 [place] [id number] [place] [address] Mar, [place] [address] [address] Mar, Bipolar 1 disorder, mixed, moderate F31.62 ; Generalized anxiety disorder F41.1 and Other group home (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 Z79.899 [place] [id number] [place] [address] Feb, Bipolar 1 disorder, depressed, moderate F31.32 and Anxiety F41.9 [facility] [id number] [place] [address] Feb, Bipolar 1 disorder, depressed, moderate F31.32 and 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 [facility] [id number] [place] [address] Feb, [facility] [id number] [place] [address] Feb, Bipolar 1 disorder, depressed, moderate F31.32 and Anxiety F41.9 [facility] [id number] [place] [address] Feb, Bipolar 1 disorder, depressed, moderate F31.32 and Other group home (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 Z79.899 [facility] [id number] [place] [address] Feb, Bipolar 1 disorder, depressed, moderate F31.32 and Anxiety F41.9 [facility] [id number] [place] [address] Dec, Bipolar 1 disorder, depressed, moderate F31.32 and Anxiety F41.9 [facility] [id number] [place] [address] Oct, [facility] [id number] [place] [address] Oct, [facility] [id number] [place] [phone] May, [facility] [id number] [place] [phone] May, [facility] [id number] [place] [phone] Mar, [facility] [id number] [place] [phone] Mar, IMMUNIZATIONS No Known Immunizations SOCIAL HISTORY Never Assessed REASON FOR VISIT Follow-up Bipolar Disorder PLAN OF CARE Activity Details Follow Up 4 Weeks Reason: Follow-up VITAL SIGNS MEDICATIONS Unknown Medications RESULTS No Results PROCEDURES Procedure Date Ordered Result Body Site [facility] VISIT MENTAL HEALTH ESTAB PT Feb 22, 2018 Psychotherapy, patient &/family, 30 minutes, established patient Feb 22, 2018 INSTRUCTIONS MEDICATIONS ADMINISTERED No Known Medications MEDICAL [...]
--- OUTSIDE RECORDS SUMMARY | 2018-09-28 22:39 | XMS REPORT ---
Author Author GURINDER NORTON Organization [facility] Address [address] [place] [address] Care Team Providers Care Ehs Teacher Name Role Phone GURINDER NORTON Unavailable PROBLEMS Type Condition ICD9-CM Code QQQ33-BR Code Onset Dates Condition Status SNOMED Code Problem Elevated serum creatinine R79.89 Active 054904696 Problem STATE HEP A (ADULT) DX V05.3 Active 961191031 Problem Anxiety F41.9 Active 87494097 Problem Bipolar 1 disorder, depressed, moderate F31.32 Active 79339533 Problem Acquired hypothyroidism E03.9 Active 479712969 Problem Essential hypertension I10 Active 26455516 Problem Gastroesophageal reflux disease with esophagitis K21.0 Active 477218221 Problem History of esophageal cancer Z85.01 Active 898533885 Problem GERD (gastroesophageal reflux disease) K21.9 Active 438229556 Problem Nephrolithiasis N20.0 Active 81041046 Problem Pure hypercholesterolemia E78.00 Active 480956495 Problem Slow transit constipation K59.01 Active 47371624 Problem Borderline personality disorder F60.3 Active 33732382 Problem Slow transit constipation K59.01 Active 35860080 Problem Polysubstance (including opioids) dependence with physiol dependence F19.20 Active 47315261 Problem Vitamin D insufficiency E55.9 Active 490739706 Problem Pre-diabetes R73.03 Active 526362575 Problem Seasonal allergies J30.2 Active 502002434 Problem Bipolar I disorder F31.9 Active 790553237 Problem Diverticulitis K57.92 Active 214543044 ALLERGIES No Information ENCOUNTERS Encounter Location Date Diagnosis [facility] [id number] [address] Nov, [facility] [address] [id number] [address] Oct, [facility] [address] [address] Sep, Lower abdominal pain R10.30 ; Diverticulitis K57.92 and Slow transit constipation K59.[address] [address] Sep, Bipolar 1 disorder, depressed, moderate F31.[address] [address] Sep, Pre-diabetes R73.03 and Hypercholesteremia E78.[address] [address] Sep, Bipolar 1 disorder, depressed, moderate F31.32 ; Borderline personality disorder F60.3 ; Anxiety F41.9 and Polysubstance (including opioids) dependence with physiol dependence F19.[address] [address] Aug, Candidal intertrigo B37.2 ; Essential hypertension I10 ; GERD (gastroesophageal reflux disease) K21.9 ; Pure hypercholesterolemia E78.00 ; Pre-diabetes R73.03 ; Acquired hypothyroidism E03.9 and Chronic nausea R11.[address] [address] Aug, [address] [address] Aug, Essential hypertension I10 ; Acquired hypothyroidism E03.9 ; GERD (gastroesophageal reflux disease) K21.9 ; Pre-diabetes R73.03 and Bronchitis J40 [address] [address] Aug, Bipolar 1 disorder, depressed, moderate F31.[address] [address] Aug, Essential hypertension I10 ; Bipolar 1 disorder, depressed, moderate F31.32 ; Acquired hypothyroidism E03.9 and Chronic nausea R11.[id number] [place] [address] 14 Jul, 2018 [place] [address] [address] 13 Jul, 2018 Pain of right lower leg M79.661 [facility] [place] [facility] [address] [address] 07 Jul, 2018 Injury of left lower extremity, initial encounter S89.92XA [place] [address] [address] July, Acquired hypothyroidism E03.9 and Chronic nausea R11.0 [place] [address] [address] July, Bipolar 1 disorder, depressed, moderate F31.[address] [address] Jun, Bipolar I disorder F31.9 and Anxiety F41.9 [place] [address] [address] Jun, Essential hypertension I10 [facility] WALK IN [place] [address] [address] May, Bronchitis J40 and Candidal intertrigo B37.2 [place] [id number] [place] [address] May, Bipolar I disorder F31.9 and Anxiety F41.9 [place] [id number] [place] [address] May, [facility] [place] [facility] [address] [address] Apr, Acute bronchitis, unspecified organism J20.9 and Acute upper respiratory infection J06.9 [place] [id number] [place] [address] Apr, [place] [address] [address] 28 Mar, 2018 Bipolar 1 disorder, depressed, moderate F31.32 ; Borderline personality disorder F60.3 ; Anxiety F41.9 and Polysubstance (including opioids) dependence with physiol dependence F19.20 [place] [address] [address] Mar, Essential hypertension I10 ; Pure hypercholesterolemia E78.00 ; Candidal intertrigo B37.2 ; Pre-diabetes R73.03 ; Acquired hypothyroidism E03.9 and Chronic nausea R11.0 [place] [address] [address] Mar, Bipolar 1 disorder, depressed, moderate F31.32 and Anxiety F41.9 [facility] [place] [facility] [facility] [address] [address] Mar, Acute gastroenteritis K52.9 and Acute bronchitis J20.9 [place] [address] [address] Mar, Bipolar 1 disorder, depressed, moderate F31.32 [place] [address] [address] Mar, Bipolar 1 disorder, depressed, moderate F31.32 [place] [address] [address] Mar, [place] [address] [address] Mar, Bipolar 1 disorder, depressed, moderate F31.32 [place] [address] [address] Mar, [place] [address] [address] Feb, Bipolar 1 disorder, depressed, moderate F31.32 and Anxiety F41.9 [place] [address] [address] Feb, Bipolar 1 disorder, depressed, moderate F31.32 [facility] [id number] [place] [address] Feb, Bipolar 1 disorder, depressed, moderate F31.32 [facility] [id number] [place] [address] Feb, [facility] [address] [address] Jan, [facility] [address] [address] Dec, Bipolar 1 disorder, depressed, moderate F31.[address] [facility] [id number] [place] [address] Dec, Bipolar 1 disorder, depressed, moderate F31.32 [facility] [address] [address] Dec, Bipolar 1 disorder, depressed, moderate F31.[address] [facility] [address] [address] Dec, Encounter for immunization Z23 [facility] [id number] [place] [address] Nov, [facility] [address] [address] 17 Nov, 2017 Bipolar 1 disorder, depressed, moderate F31.[address] [facility] [id number] [place] [address] 13 Nov, 2017 Bipolar 1 disorder, depressed, moderate F31.32 [facility] [id number] [place] [address] 12 Nov, 2017 [facility] [id number] [place] [address] Nov, Bipolar 1 disorder, depressed, moderate F31.[address] [facility] [id number] [place] [address] Oct, Bipolar 1 disorder, depressed, moderate F31.32 ; Anxiety F41.9 ; Borderline personality disorder F60.3 ; Polysubstance (including opioids) dependence with physiol dependence F19.20 and Other snf (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 Z79.[address] [address] Oct, Bipolar 1 disorder, depressed, moderate F31.32 [facility] [address] [id number] Sep, Encounter for dental examination Z01.20 [place] [address] [address] Sep, Acute oral pain K13.[address] [address] Sep, Bipolar 1 disorder, depressed, moderate F31.[address] [address] Sep, Bipolar 1 disorder, depressed, moderate F31.32 [place] [id number] [place] [address] Sep, Bipolar 1 disorder, depressed, moderate F31.[address] [address] Sep, Essential hypertension I10 ; Acquired hypothyroidism E03.9 ; Anxiety F41.9 ; Chronic nausea R11.0 and Irritant contact dermatitis due to plants, except food L24.7 [place] [id number] [place] [address] Aug, Bipolar 1 disorder, depressed, moderate F31.32 [facility] [id number] [place] [address] Aug, Bipolar 1 disorder, depressed, moderate F31.32 [facility] [id number] [place] [address] Aug, Bipolar 1 disorder, depressed, moderate F31.32 [place] [id number] [place] [address] July, Candidal dermatitis B37.2 [place] [address] [address] July, Acquired hypothyroidism E03.9 [place] [address] [address] July, Bipolar 1 disorder, depressed, moderate F31.32 [facility] WALK IN [place] [address] [address] July, Seasonal allergies J30.2 [place] [address] [address] July, Bipolar 1 disorder, depressed, moderate F31.32 [place] [id number] [place] [address] Jun, Pre-diabetes R73.03 [place] [address] [address] Jun, Bipolar 1 disorder, depressed, moderate F31.32 ; Anxiety F41.9 ; Borderline personality disorder F60.3 ; Polysubstance (including opioids) dependence with physiol dependence F19.20 and Other specified abnormal findings of blood chemistry R79.89 [place] [id number] [place] [address] Jun, Bipolar 1 disorder, depressed, moderate F31.32 [place] [address] [address] May, Bipolar 1 disorder, depressed, moderate F31.32 [place] [id number] [place] [address] May, Bipolar 1 disorder, depressed, moderate F31.32 [facility] [id number] [place] [address] May, [facility] [id number] [place] [address] May, [facility] [id number] [place] [address] May, Bipolar 1 disorder, depressed, moderate F31.32 [facility] [address] [address] May, Bipolar 1 disorder, depressed, moderate F31.32 [place] [address] [place] [address] May, Other specified abnormal findings of blood chemistry R79.89 [place] [address] [address] May, Essential hypertension I10 ; Acquired hypothyroidism E03.9 ; Gastroesophageal reflux disease with esophagitis K21.0 ; Hair loss L65.9 ; Hypokalemia, gastrointestinal losses E87.6 ; Pre-diabetes R73.03 ; Candidal dermatitis B37.2 and Pure hypercholesterolemia E78.00 [place] [id number] [place] [address] Apr, Bipolar 1 disorder, depressed, moderate F31.32 [place] [address] [address] Apr, Bipolar 1 disorder, depressed, moderate F31.32 [place] [id number] [place] [address] Apr, Bipolar 1 disorder, depressed, moderate F31.32 and Anxiety F41.9 [facility] [id number] [place] [address] Mar, Encounter for immunization Z23 ; Fall, initial encounter W19.XXXA ; Rib pain on left side R07.81 and Left hip pain M25.552 [facility] [id number] [place] [address] 10 Mar, 2017 Bipolar 1 disorder, depressed, moderate F31.32 and Anxiety F41.9 [place] [address] [address] 10 Mar, 2017 Bipolar 1 disorder, depressed, moderate F31.32 ; Anxiety F41.9 ; Borderline personality disorder F60.3 and Polysubstance (including opioids) dependence with physiol dependence F19.20 [facility] [address] [address] Mar, Bipolar 1 disorder, depressed, moderate F31.32 and Anxiety F41.9 [facility] [place] [facility] [address] [address] Feb, Irritant contact dermatitis, unspecified trigger L24.9 [facility] [address] [address] Feb, [facility] [address] [address] Feb, [place] [address] [address] Feb, Bipolar 1 disorder, depressed, moderate F31.32 and Anxiety F41.9 [place] [address] [address] Feb, Acute non-recurrent maxillary sinusitis J01.00 [facility] [id number] [place] [address] Feb, [place] [address] [address] 07 Feb, 2017 Bipolar 1 disorder, depressed, moderate F31.32 [facility] [address] [address] Jan, [facility] [address] [address] Jan, Bipolar 1 disorder, depressed, moderate F31.32 ; Anxiety F41.9 ; Borderline personality disorder F60.3 and Polysubstance (including opioids) dependence with physiol dependence F19.20 [place] [id number] [place] [id number] 27 Jan, 2017 Bipolar 1 disorder, depressed, moderate F31.32 and Anxiety F41.9 [place] [address] Jan, Bipolar 1 disorder, depressed, moderate F31.32 ; Anxiety F41.9 ; Borderline personality disorder F60.3 and Polysubstance (including opioids) dependence with physiol dependence F19.20 [place] [address] 13 Jan, 2017 Bipolar 1 disorder, depressed, moderate F31.32 and Anxiety F41.9 [place] [address] Dec, Hypokalemia, gastrointestinal losses E87.6 ; GERD (gastroesophageal reflux disease) K21.9 and Bipolar 1 disorder, depressed, moderate F31.32 [place] [address] Dec, Bipolar 1 disorder, depressed, moderate F31.32 and Anxiety F41.9 [facility] IN [place] [id number] Dec, [address] [address] Dec, [facility] IN [place] [id number] Dec, Fall (on) (from) other stairs and steps, initial encounter W10.8XXA ; Laceration of left lower extremity, initial encounter S81.812A ; Contusion of right knee, initial encounter S80.01XA and Contusion of right shoulder, initial encounter S40.011A [place] [id number] [place] [address] Dec, Bipolar 1 disorder, depressed, moderate F31.32 ; Anxiety F41.9 ; Borderline personality disorder F60.3 and Polysubstance (including opioids) dependence with physiol dependence F19.20 [place] [address] [address] Dec, Bipolar 1 disorder, depressed, moderate F31.32 and Anxiety F41.9 [place] [address] [address] Dec, [place] [address] Dec, Hospital discharge follow-up Z09 ; Nephrolithiasis N20.0 ; Essential hypertension I10 ; Gastroesophageal reflux disease with esophagitis K21.0 and Anxiety F41.9 [place] [address] [address] 28 Nov, 2016 [facility] WALK IN [place] [address] [address] Nov, Dysuria R30.0 and Acute cystitis with hematuria N30.01 [facility] WALK IN [place] [address] [address] Nov, [place] [address] [address] Nov, [place] [address] [address] Nov, Gastroesophageal reflux disease with esophagitis K21.0 ; Hypercholesteremia E78.00 and Acquired hypothyroidism E03.9 [facility] WALK IN [address] [address] 18 Nov, 2016 Left wrist pain M25.532 and Contusion of left wrist, initial encounter S60.212A [place] [address] [address] 18 Nov, 2016 Bipolar 1 disorder, depressed, moderate F31.32 ; Anxiety F41.9 ; Borderline personality disorder F60.3 and Polysubstance (including opioids) dependence with physiol dependence F19.20 [facility] [place] [facility] [id number] [place] [address] 15 Nov, 2016 Abdominal pain R10.9 and GERD (gastroesophageal reflux disease) K21.9 [facility] [id number] [place] [address] 12 Nov, 2016 Hypokalemia, gastrointestinal losses E87.6 [place] [address] [address] 11 Nov, 2016 Dehydration E86.0 ; Hypokalemia, gastrointestinal losses E87.6 and Vaginal candidiasis B37.3 [place] [address] [address] 08 Nov, 2016 Abnormal weight loss R63.4 ; Diarrhea, unspecified R19.7 ; Vomiting, unspecified R11.10 ; Generalized abdominal pain R10.84 and Decreased breath sounds R06.89 [place] [id number] [place] [address] Oct, Bipolar 1 disorder, depressed, moderate F31.32 and Anxiety F41.9 [place] [id number] [place] [address] Sep, Bipolar 1 disorder, depressed, moderate F31.32 ; Anxiety F41.9 ; Borderline personality disorder F60.3 and Polysubstance (including opioids) dependence with physiol dependence F19.20 [place] [id number] [place] [address] Sep, Bipolar 1 disorder, depressed, moderate F31.32 and Anxiety F41.9 [place] [id number] [place] [address] Sep, Bipolar 1 disorder, depressed, moderate F31.32 [place] [address] [id number] [place] [address] Sep, Bipolar 1 disorder, depressed, moderate F31.32 and Anxiety F41.9 [facility] [id number] [place] [address] Sep, Pain of toe of right foot M79.674 [place] [address] [address] Sep, [facility] [address] [address] Sep, Cellulitis of right ankle L03.115 [place] [address] [address] Sep, Bipolar 1 disorder, depressed, moderate F31.32 and Anxiety F41.9 [place] [address] [address] Sep, [place] [address] [address] Sep, [place] [address] [address] Sep, Bipolar 1 disorder, depressed, moderate F31.32 and Anxiety F41.9 [place] [address] [address] Sep, Accidental spider bite T63.301A [place] [address] [address] Aug, Bipolar 1 disorder, depressed, moderate F31.32 ; Anxiety F41.9 ; Borderline personality disorder F60.3 and Polysubstance (including opioids) dependence with physiol dependence F19.20 [place] [id number] [place] [address] Aug, [place] [address] [address] Aug, Bipolar 1 disorder, depressed, moderate F31.32 and Anxiety F41.9 [place] [address] [id number] [place] [address] Aug, Pre-diabetes R73.03 ; Acute seasonal allergic rhinitis due to pollen J30.1 ; Hypercholesteremia E78.00 and Nausea R11.0 [place] [address] [address] Aug, [place] [address] [address] Aug, Bipolar 1 disorder, depressed, moderate F31.32 and Anxiety F41.9 [place] [address] [address] Aug, [place] [address] [address] Aug, [place] [address] [address] Aug, [place] [address] [address] Aug, Bipolar 1 disorder, depressed, moderate F31.32 and Anxiety F41.9 [place] [address] [address] Aug, [facility] [address] [address] Aug, Insect bite, initial encounter W57.XXXA and Cellulitis of left lower leg L03.116 [place] [address] [address] Aug, Bipolar 1 disorder, depressed, moderate F31.32 and Borderline personality disorder F60.3 [place] [address] [address] July, [place] [address] [address] July, [place] [address] [address] 25 Jul, 2016 Encounter for routine adult health examination with abnormal findings Z00.01 ; History of esophageal cancer Z85.01 ; Bipolar 1 disorder, depressed, moderate F31.32 ; Anxiety F41.9 ; Acquired hypothyroidism E03.9 ; Essential hypertension I10 ; Gastroesophageal reflux disease with esophagitis K21.0 and Encounter for immunization Z23 [place] [address] [address] 18 Jul, 2016 Bipolar 1 disorder, depressed, moderate F31.32 and Anxiety F41.[address] [address] July, [address] [address] July, Bipolar 1 disorder, depressed, moderate F31.32 and Anxiety F41.9 [place] [address] [address] July, Bipolar 1 disorder, depressed, moderate F31.[address] [address] July, Bipolar 1 disorder, depressed, moderate F31.32 and Anxiety F41.9 [place] [address] [address] Jun, Bipolar 1 disorder, depressed, moderate F31.32 [place] [address] [id number] [place] [address] Jun, Bipolar 1 disorder, depressed, moderate F31.32 and Borderline personality disorder F60.3 [place] [id number] [place] [address] Jun, Bipolar 1 disorder, depressed, moderate F31.[address] [address] Jun, Bipolar 1 disorder, depressed, moderate F31.32 [facility] [id number] [place] [address] May, Bipolar 1 disorder, depressed, moderate F31.[address] [facility] [address] [id number] [place] [address] May, Bipolar 1 disorder, depressed, moderate F31.32 and Anxiety F41.9 [place] [address] [id number] [place] [address] May, Bipolar 1 disorder, depressed, moderate F31.32 and Anxiety F41.9 [place] [address] [id number] [place] [address] May, Bipolar 1 disorder, depressed, moderate F31.32 and Borderline personality disorder F60.3 [place] [address] [address] [id number] [place] [address] May, [place] [address] [id number] [place] [address] May, Bipolar 1 disorder, depressed, moderate F31.32 and Anxiety F41.9 [place] [address] [place] [id number] [place] [address] May, Bipolar 1 disorder, depressed, moderate F31.32 and Anxiety F41.9 [place] [address] [place] [id number] [place] [address] May, [place] [address] [place] [id number] [place] [address] May, Bipolar 1 disorder, depressed, moderate F31.32 [place] [address] [address] [id number] [place] [address] May, Bipolar 1 disorder, depressed, moderate F31.32 and Generalized anxiety disorder F41.1 [place] [address] [id number] [place] [address] Apr, Bipolar 1 disorder, depressed, moderate F31.[address] [facility] [id number] [place] [address] Apr, [facility] [address] [id number] [place] [address] Apr, Bipolar 1 disorder, depressed, moderate F31.32 and Anxiety F41.9 [place] [id number] [place] [id number] Apr, Bipolar 1 disorder, depressed, moderate F31.32 and Anxiety F41.[id number] [place] [id number] Apr, Bipolar affective disorder, depressed, severe F31.4 and Generalized anxiety disorder F41.1 [id number] [place] [id number] Mar, Bipolar 1 disorder, depressed, moderate F31.32 and Anxiety F41.[id number] [place] [id number] Mar, Bipolar 1 disorder, depressed, moderate F31.32 and Anxiety F41.9 [place] [id number] [place] [phone] Mar, Bipolar 1 disorder, mixed, moderate F31.62 [place] [address] [place] [id number] [place] [address] Mar, [place] [address] [place] [id number] [place] [phone] Mar, Bipolar 1 disorder, mixed, moderate F31.62 ; Generalized anxiety disorder F41.1 and Other snf (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 Z79.899 [place] [id number] [place] [phone] Feb, Bipolar 1 disorder, depressed, moderate F31.32 and Anxiety F41.9 [place] [address] [place] [id number] [address] Feb, Bipolar 1 disorder, depressed, moderate F31.32 and Other snf (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 Z79.899 [facility] [address] [address] Feb, [facility] [id number] [place] [address] Feb, Bipolar 1 disorder, depressed, moderate F31.[address] 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 [address] [address] Feb, Bipolar 1 disorder, depressed, moderate F31.[address] [facility] [id number] [place] [address] Dec, Bipolar 1 disorder, depressed, moderate F31.[address] [facility] [id number] [place] [phone] Oct, [facility] [id number] [address] Oct, [facility] [address] [address] May, [facility] [id number] [place] [address] May, [facility] [id number] [place] [address] Mar, [facility] [address] [address] Mar, IMMUNIZATIONS No Known Immunizations SOCIAL HISTORY Never Assessed REASON FOR VISIT Follow-up Depression PLAN OF CARE Activity Details Follow Up 6 Weeks Reason: Follow-up VITAL SIGNS MEDICATIONS Unknown Medications RESULTS No Results PROCEDURES Procedure Date Ordered Result Body Site Psychotherapy, patient &/family, 30 minutes, established patient May 17, 2018 COUNTS INCLUDE 234 BEDS AT THE [facility] VISIT MENTAL HEALTH ESTAB PT May 17, 2018 INSTRUCTIONS MEDICATIONS ADMINISTERED No Known Medications [...] and Neck 2004 Hospitalization History [facility] Psychiatric Admission 2016
--- OUTSIDE RECORDS SUMMARY | 2018-09-28 22:40 | XMS REPORT ---
Author Author MICHELLE DARCI [facility] Address [address] [place] [address] Care Team Providers Care Turn Down Attendant Name Role Phone MICHELLE, DARCI Unavailable PROBLEMS Type Condition ICD9-CM Code [id number] Code Onset Dates Condition Status SNOMED Code Problem Gastroesophageal reflux disease with esophagitis K21.0 Active 207564496 Problem Polysubstance (including opioids) dependence with physiol dependence F19.20 Active 48926492 Problem History of esophageal cancer Z85.01 Active 853620313 Problem Seasonal allergies J30.2 Active 914270349 Problem Pre-diabetes R73.03 Active 471722982 Problem GERD (gastroesophageal reflux disease) K21.9 Active 704608217 Problem Borderline personality disorder F60.3 Active 96798129 Problem Pure hypercholesterolemia E78.00 Active 392340975 Problem Nephrolithiasis N20.0 Active 79967048 Problem STATE HEP A (ADULT) DX V05.3 Active 575737968 Problem Bipolar 1 disorder, depressed, moderate F31.32 Active 41744147 Problem Anxiety F41.9 Active 34751786 Problem Vitamin D insufficiency E55.9 Active 197576560 Problem Essential hypertension I10 Active 02065776 Problem Elevated serum creatinine R79.89 Active 977690521 Problem Acquired hypothyroidism E03.9 Active 545299811 ALLERGIES No Information ENCOUNTERS Encounter Location Date Diagnosis [facility] [id number], [place] [address] Mar, [facility] [id number] [place] [address] Mar, [facility] [address] [address] Mar, [facility] [id number], [place] [address] Feb, [facility] [id number] [place] [address] Feb, Bipolar 1 disorder, depressed, moderate F31.32 [facility] [id number] [place] [address] Feb, Bipolar 1 disorder, depressed, moderate F31.32 [facility] [id number] [place] [address] Feb, [facility] [id number] [place] [address] Jan, [facility] [id number] [place] [address] Dec, Bipolar 1 disorder, depressed, moderate F31.32 and Anxiety F41.9 [place] [id number] [place] [address] Dec, Bipolar 1 disorder, depressed, moderate F31.32 [facility] [id number] [place] [address] Dec, Bipolar 1 disorder, depressed, moderate F31.32 and Anxiety F41.9 [place] [id number] [place] [address] Dec, Encounter for immunization Z23 [facility] [id number] [place] [address] Nov, [facility] [id number] [place] [phone] 17 Nov, 2017 Bipolar 1 disorder, depressed, moderate F31.[address] [facility] [id number] [place] [address] 13 Nov, 2017 Bipolar 1 disorder, depressed, moderate F31.32 [facility] [id number] [place] [address] Nov, [facility] [address] [place] [address] Nov, Bipolar 1 disorder, depressed, moderate F31.[address] [facility] [id number] [place] [address] Oct, Bipolar 1 disorder, depressed, moderate F31.32 ; Anxiety F41.9 ; Borderline personality disorder F60.3 ; Polysubstance (including opioids) dependence with physiol dependence F19.20 and Other retirement (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 Z79.899 [facility] [id number] [place] [address] Oct, Bipolar 1 disorder, depressed, moderate F31.32 [facility] [id number] [place] [id number] Sep, Encounter for dental examination Z01.[address] [address] Sep, Acute oral pain K13.79 [facility] [address] [address] Sep, Bipolar 1 disorder, depressed, moderate F31.32 [place] [id number] [place] [address] Sep, Bipolar 1 disorder, depressed, moderate F31.32 [facility] [id number] [place] [address] Sep, Bipolar 1 disorder, depressed, moderate F31.32 [facility] [id number] [place] [address] Sep, Essential hypertension I10 ; Acquired hypothyroidism E03.9 ; Anxiety F41.9 ; Chronic nausea R11.0 and Irritant contact dermatitis due to plants, except food L24.7 [facility] [address] [place] [address] Aug, Bipolar 1 disorder, depressed, moderate F31.32 [facility] [address] [place] [address] Aug, Bipolar 1 disorder, depressed, moderate F31.32 [facility] [address] [address] Aug, Bipolar 1 disorder, depressed, moderate F31.32 [place] [address] [address] July, Candidal dermatitis B37.2 [facility] [address] [address] July, Acquired hypothyroidism E03.9 [place] [address] [address] July, Bipolar 1 disorder, depressed, moderate F31.32 [facility] [address] [address] July, Seasonal allergies J30.2 [place] [address] [address] July, Bipolar 1 disorder, depressed, moderate F31.32 [place] [address] [address] Jun, Pre-diabetes R73.03 [place] [address] [address] Jun, Bipolar 1 disorder, depressed, moderate F31.32 ; Anxiety F41.9 ; Borderline personality disorder F60.3 ; Polysubstance (including opioids) dependence with physiol dependence F19.20 and Other specified abnormal findings of blood chemistry R79.89 [place] [address] [address] Jun, Bipolar 1 disorder, depressed, moderate F31.32 [place] [id number] [place] [address] May, Bipolar 1 disorder, depressed, moderate F31.32 [place] [address] [place] [address] May, Bipolar 1 disorder, depressed, moderate F31.32 [place] [address] [id number] May, [place] [address] [address] May, [place] [address] [address] May, Bipolar 1 disorder, depressed, moderate F31.32 [place] [address] [address] May, Bipolar 1 disorder, depressed, moderate F31.32 [place] [address] [address] May, Other specified abnormal findings of blood chemistry R79.89 [place] [address] [address] May, Essential hypertension I10 ; Acquired hypothyroidism E03.9 ; Gastroesophageal reflux disease with esophagitis K21.0 ; Hair loss L65.9 ; Hypokalemia, gastrointestinal losses E87.6 ; Pre-diabetes R73.03 ; Candidal dermatitis B37.2 and Pure hypercholesterolemia E78.00 [place] [id number] [place] [address] Apr, Bipolar 1 disorder, depressed, moderate F31.32 [place] [id number] [place] [address] Apr, Bipolar 1 disorder, depressed, moderate F31.32 [place] [address] [address] Apr, Bipolar 1 disorder, depressed, moderate F31.32 and Anxiety F41.9 [facility] [id number] [place] [address] Mar, Encounter for immunization Z23 ; Fall, initial encounter W19.XXXA ; Rib pain on left side R07.81 and Left hip pain M25.552 [facility] [address] [address] Mar, Bipolar 1 disorder, depressed, moderate F31.[address] [facility] [address] [address] Mar, Bipolar 1 disorder, depressed, moderate F31.32 ; Anxiety F41.9 ; Borderline personality disorder F60.3 and Polysubstance (including opioids) dependence with physiol dependence F19.20 [place] [address] [address] Mar, Bipolar 1 disorder, depressed, moderate F31.32 and Anxiety F41.9 [facility] [address] [address] Feb, Irritant contact dermatitis, unspecified trigger L24.9 [facility] [address] [address] Feb, [place] [address] [address] Feb, [place] [address] [address] Feb, Bipolar 1 disorder, depressed, moderate F31.[address] [facility] [address] [address] Feb, Acute non-recurrent maxillary sinusitis J01.00 [facility] [address] [address] Feb, [place] [address] [address] Feb, Bipolar 1 disorder, depressed, moderate F31.32 [place] [address] [address] Jan, [place] [id number] [place] [address] Jan, Bipolar 1 disorder, depressed, moderate F31.32 ; Anxiety F41.9 ; Borderline personality disorder F60.3 and Polysubstance (including opioids) dependence with physiol dependence F19.20 [place] [id number] [place] [address] Jan, Bipolar 1 disorder, depressed, moderate F31.32 and Anxiety F41.9 [place] [id number] [place] [address] Jan, Bipolar 1 disorder, depressed, moderate F31.32 ; Anxiety F41.9 ; Borderline personality disorder F60.3 and Polysubstance (including opioids) dependence with physiol dependence F19.20 [place] [id number] [place] [address] Jan, Bipolar 1 disorder, depressed, moderate F31.32 and Anxiety F41.9 [place] [id number] [place] [address] Dec, Hypokalemia, gastrointestinal losses E87.6 ; GERD (gastroesophageal reflux disease) K21.9 and Bipolar 1 disorder, depressed, moderate F31.32 [place] [id number] [place] [address] Dec, Bipolar 1 disorder, depressed, moderate F31.32 and Anxiety F41.9 [facility] [id number] [place] [address] Dec, [place] [address] [address] Dec, [facility] [place] [id number] [place] [address] Dec, Fall (on) (from) other stairs and steps, initial encounter W10.8XXA ; Laceration of left lower extremity, initial encounter S81.812A ; Contusion of right knee, initial encounter S80.01XA and Contusion of right shoulder, initial encounter S40.011A [place] [address] [address] Dec, Bipolar 1 disorder, depressed, moderate F31.32 ; Anxiety F41.9 ; Borderline personality disorder F60.3 and Polysubstance (including opioids) dependence with physiol dependence F19.20 [place] [address] [address] Dec, Bipolar 1 disorder, depressed, moderate F31.32 and Anxiety F41.9 [place] [address] [address] Dec, [place] [address] [address] Dec, Hospital discharge follow-up Z09 ; Nephrolithiasis N20.0 ; Essential hypertension I10 ; Gastroesophageal reflux disease with esophagitis K21.0 and Anxiety F41.9 [place] [address] [address] Nov, [facility] [address] [address] Nov, Dysuria R30.0 and Acute cystitis with hematuria N30.01 [facility] [address] [address] Nov, [facility] [address] [address] Nov, [place] [address] [address] Nov, Gastroesophageal reflux disease with esophagitis K21.0 ; Hypercholesteremia E78.00 and Acquired hypothyroidism E03.9 [facility] [address] [address] 18 Nov, 2016 Left wrist pain M25.532 and Contusion of left wrist, initial encounter S60.212A [facility] [id number] [place] [address] 18 Nov, 2016 Bipolar 1 disorder, depressed, moderate F31.32 ; Anxiety F41.9 ; Borderline personality disorder F60.3 and Polysubstance (including opioids) dependence with physiol dependence F19.20 [facility] [address] [address] 15 Nov, 2016 Abdominal pain R10.9 and GERD (gastroesophageal reflux disease) K21.9 [place] [address] [address] 12 Nov, 2016 Hypokalemia, gastrointestinal losses E87.6 [place] [address] [address] 11 Nov, 2016 Dehydration E86.0 ; Hypokalemia, gastrointestinal losses E87.6 and Vaginal candidiasis B37.3 [place] [address] [address] 08 Nov, 2016 Abnormal weight loss R63.4 ; Diarrhea, unspecified R19.7 ; Vomiting, unspecified R11.10 ; Generalized abdominal pain R10.84 and Decreased breath sounds R06.89 [place] [address] [address] Oct, Bipolar 1 disorder, depressed, moderate F31.32 and Anxiety F41.9 [place] [address] [address] Sep, Bipolar 1 disorder, depressed, moderate F31.32 ; Anxiety F41.9 ; Borderline personality disorder F60.3 and Polysubstance (including opioids) dependence with physiol dependence F19.20 [place] [id number] [place] [address] 27 Sep, 2016 Bipolar 1 disorder, depressed, moderate F31.32 and Anxiety F41.9 [place] [address] [address] Sep, Bipolar 1 disorder, depressed, moderate F31.32 [place] [id number] [place] [address] Sep, Bipolar 1 disorder, depressed, moderate F31.32 and Anxiety F41.9 [facility] [address] [address] Sep, Pain of toe of right foot M79.674 [place] [address] [address] Sep, [facility] [address] [address] Sep, Cellulitis of right ankle L03.115 [place] [address] [address] Sep, Bipolar 1 disorder, depressed, moderate F31.32 and Anxiety F41.9 [place] [address] [address] Sep, [place] [address] [address] Sep, [place] [address] [address] Sep, Bipolar 1 disorder, depressed, moderate F31.32 and Anxiety F41.9 [place] [address] [address] Sep, Accidental spider bite T63.301A [place] [address] [address] Aug, Bipolar 1 disorder, depressed, moderate F31.32 ; Anxiety F41.9 ; Borderline personality disorder F60.3 and Polysubstance (including opioids) dependence with physiol dependence F19.20 [place] [address] [address] Aug, [place] [id number] [place] [address] Aug, Bipolar 1 disorder, depressed, moderate F31.32 and Anxiety F41.9 [place] [address] [address] Aug, Pre-diabetes R73.03 ; Acute seasonal allergic rhinitis due to pollen J30.1 ; Hypercholesteremia E78.00 and Nausea R11.0 [place] [address] [address] Aug, [place] [address] [address] Aug, Bipolar 1 disorder, depressed, moderate F31.32 and Anxiety F41.9 [place] [address] [address] Aug, [place] [address] [address] Aug, [place] [address] [address] Aug, [place] [address] [address] Aug, Bipolar 1 disorder, depressed, moderate F31.32 and Anxiety F41.[address] [address] Aug, [facility] [address] [address] Aug, Insect bite, initial encounter W57.XXXA and Cellulitis of left lower leg L03.[address] [address] Aug, Bipolar 1 disorder, depressed, moderate F31.32 and Borderline personality disorder F60.[address] [address] July, [place] [id number] [place] [address] July, [place] [address] [address] July, Encounter for routine adult health examination with abnormal findings Z00.01 ; History of esophageal cancer Z85.01 ; Bipolar 1 disorder, depressed, moderate F31.32 ; Anxiety F41.9 ; Acquired hypothyroidism E03.9 ; Essential hypertension I10 ; Gastroesophageal reflux disease with esophagitis K21.0 and Encounter for immunization Z23 [place] [id number] [place] [address] July, Bipolar 1 disorder, depressed, moderate F31.32 and Anxiety F41.9 [place] [address] [address] July, [place] [address] [address] July, Bipolar 1 disorder, depressed, moderate F31.32 and Anxiety F41.9 [place] [id number] [place] [address] July, Bipolar 1 disorder, depressed, moderate F31.32 [place] [id number] [place] [address] July, Bipolar 1 disorder, depressed, moderate F31.32 and Anxiety F41.9 [place] [id number] [place] [address] Jun, Bipolar 1 disorder, depressed, moderate F31.32 [place] [id number] [place] [address] Jun, Bipolar 1 disorder, depressed, moderate F31.32 and Borderline personality disorder F60.3 [place] [id number] [place] [address] Jun, Bipolar 1 disorder, depressed, moderate F31.32 [place] [address] [address] Jun, Bipolar 1 disorder, depressed, moderate F31.32 [facility] [id number] [place], [place] [address] May, Bipolar 1 disorder, depressed, moderate F31.[address] [facility] [id number] [place] [address] May, Bipolar 1 disorder, depressed, moderate F31.[address] [facility] [id number] [place] [address] May, Bipolar 1 disorder, depressed, moderate F31.[address] [facility] [id number] [place] [address] May, Bipolar 1 disorder, depressed, moderate F31.32 and Borderline personality disorder F60.3 [place] [id number] [place] [address] 14 May, 2016 [facility] [id number] [place] [address] May, Bipolar 1 disorder, depressed, moderate F31.[address] [facility] [address] [place] [address] May, Bipolar 1 disorder, depressed, moderate F31.[address] [facility] [id number] [place] [address] May, [facility] [id number] [place] [address] May, Bipolar 1 disorder, depressed, moderate F31.32 [facility] [address] [place] [address] May, Bipolar 1 disorder, depressed, moderate F31.32 and Generalized anxiety disorder F41.1 [facility] [id number] [place] [address] Apr, Bipolar 1 disorder, depressed, moderate F31.32 and Anxiety F41.9 [place] [id number] [place] [address] Apr, [place] [id number] [place] [address] Apr, Bipolar 1 disorder, depressed, moderate F31.32 and Anxiety F41.9 [place] [id number] [place] [address] Apr, Bipolar 1 disorder, depressed, moderate F31.32 and Anxiety F41.9 [place] [id number] [place] [address] Apr, Bipolar affective disorder, depressed, severe F31.4 and Generalized anxiety disorder F41.1 [place] [id number] [place] [address] Mar, Bipolar 1 disorder, depressed, moderate F31.32 and Anxiety F41.9 [place] [id number] [place] [address] Mar, Bipolar 1 disorder, depressed, moderate F31.32 and Anxiety F41.9 [place] [id number] [place] [address] Mar, Bipolar 1 disorder, mixed, moderate F31.62 [place] [id number] [place] [address] Mar, [place] [id number] [place] [address] Mar, Bipolar 1 disorder, mixed, moderate F31.62 ; Generalized anxiety disorder F41.1 and 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 [id number] [place] [address] Feb, Bipolar 1 disorder, depressed, moderate F31.32 and Other retirement (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 Z79.899 [facility] [id number] [place] [address] Feb, [facility] [id number] [place] [address] Feb, Bipolar 1 disorder, depressed, moderate F31.[address] [facility] [id number] [place] [address] Feb, Bipolar 1 disorder, depressed, moderate F31.32 and Other retirement (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 Z79.899 [facility] [id number] [place] [address] Feb, Bipolar 1 disorder, depressed, moderate F31.[address] [facility] [address] [place] [address] Dec, Bipolar 1 disorder, depressed, moderate F31.[address] [facility] [id number] [place] [address] Oct, [facility] [id number] [place] [address] Oct, [facility] [id number] [place] [address] May, [facility] [id number] [place] [address] May, [facility] [id number] [place] [address] Mar, [facility] [id number] [place] [address] Mar, IMMUNIZATIONS No Known Immunizations SOCIAL HISTORY Never Assessed REASON FOR VISIT PLAN OF CARE VITAL SIGNS MEDICATIONS Medication Instructions Dosage Frequency Start Date End Date Duration Status Propranolol HCl 10 mg Orally 2 times a day as needed for anxiety 1 tablet 13 Oct, 2017 30 day(s) Active Gabapentin 300 MG Orally 2 times a day 1 capsule 12h 20 Jan, 2017 30 days Active RESULTS No Results PROCEDURES [...] Cancer Head and Neck 2004 Hospitalization History [facility] Psychiatric Admission 2015
--- OUTSIDE RECORDS SUMMARY | 2018-09-28 22:40 | XMS REPORT ---
Author Author BETTY JURADO [facility] Address [address] [place] [address] Care Team Providers Care Driving Instructor Name Role Phone BUBBAMark BETTY Unavailable PROBLEMS Type Condition ICD9-CM Code KRF37-PA Code Onset Dates Condition Status SNOMED Code Problem Gastroesophageal reflux disease with esophagitis K21.0 Active 835255541 Problem Polysubstance (including opioids) dependence with physiol dependence F19.20 Active 07957156 Problem History of esophageal cancer Z85.01 Active 690024925 Problem Seasonal allergies J30.2 Active 179112520 Problem Pre-diabetes R73.03 Active 516854414 Problem GERD (gastroesophageal reflux disease) K21.9 Active 090531482 Problem Borderline personality disorder F60.3 Active 13256828 Problem Pure hypercholesterolemia E78.00 Active 549085512 Problem Nephrolithiasis N20.0 Active 90029035 Problem STATE HEP A (ADULT) DX V05.3 Active 153548959 Problem Bipolar 1 disorder, depressed, moderate F31.32 Active 51694066 Problem Anxiety F41.9 Active 38374095 Problem Vitamin D insufficiency E55.9 Active 573356304 Problem Essential hypertension I10 Active 67658080 Problem Elevated serum creatinine R79.89 Active 295469953 Problem Acquired hypothyroidism E03.9 Active 322123636 ALLERGIES No Information ENCOUNTERS Encounter Location Date Diagnosis [facility], [place] [address] [facility] [id number] [address] Mar, [facility], [place] [id number] [address] Mar, [facility], [place] [id number] [address] Mar, [facility], [place] [id number] [address] Feb, [facility], [place] [id number] [place] [address] Feb, Bipolar 1 disorder, depressed, moderate F31.32 [facility], [place] [id number] [place] [address] Feb, Bipolar 1 disorder, depressed, moderate F31.32 [facility], [place] [id number] [place] [address] Feb, [facility], [place] [id number] [place] [address] Jan, [facility], [place] [id number] [place] [address] Dec, Bipolar 1 disorder, depressed, moderate F31.32 and Anxiety F41.9 [place] [id number] [place] [address] Dec, Bipolar 1 disorder, depressed, moderate F31.32 [place] [id number] [place] [address] Dec, Bipolar 1 disorder, depressed, moderate F31.32 and Anxiety F41.9 [place] [id number] [place] [address] Dec, Encounter for immunization Z23 [facility], [place] [id number] [place] [address] Nov, [facility], [place] [id number] [place] [address] 17 Nov, 2017 Bipolar 1 disorder, depressed, moderate F31.32 and Anxiety F41.9 [facility], [place] [id number] [place] [address] 13 Nov, 2017 Bipolar 1 disorder, depressed, moderate F31.32 [facility], [place] [id number] [place] [address] Nov, [facility], [place] [address] [place] [address] Nov, Bipolar 1 disorder, depressed, moderate F31.32 and Anxiety F41.9 [facility], [place] [id number] [place] [address] Oct, Bipolar 1 disorder, depressed, moderate F31.32 ; Anxiety F41.9 ; Borderline personality disorder F60.3 ; Polysubstance (including opioids) dependence with physiol dependence F19.20 and 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 [facility], [place] [address] [address] Oct, Bipolar 1 disorder, depressed, moderate F31.32 [facility] [id number] [place] [phone] Sep, Encounter for dental examination Z01.[address] [address] Sep, Acute oral pain K13.79 [facility], [place] [address] [address] Sep, Bipolar 1 disorder, depressed, moderate F31.32 [facility], [place] [id number] [place] [address] Sep, Bipolar 1 disorder, depressed, moderate F31.32 [facility], [place] [id number] [place] [address] Sep, Bipolar 1 disorder, depressed, moderate F31.32 [facility], [place] [id number] [place] [address] Sep, Essential hypertension I10 ; Acquired hypothyroidism E03.9 ; Anxiety F41.9 ; Chronic nausea R11.0 and Irritant contact dermatitis due to plants, except food L24.7 [facility], [place] [id number] [place] [address] Aug, Bipolar 1 disorder, depressed, moderate F31.32 [facility], [place] [address] [place] [address] Aug, Bipolar 1 disorder, depressed, moderate F31.32 [place] [address] [address] Aug, Bipolar 1 disorder, depressed, moderate F31.32 [place] [address] [address] July, Candidal dermatitis B37.2 [place] [address] [address] July, Acquired hypothyroidism E03.9 [place] [address] [address] July, Bipolar 1 disorder, depressed, moderate F31.32 [facility] [address] [address] July, Seasonal allergies J30.2 [place] [address] [address] July, Bipolar 1 disorder, depressed, moderate F31.32 [place] [address] [address] Jun, Pre-diabetes R73.03 [place] [id number] [place] [address] Jun, Bipolar 1 disorder, depressed, moderate F31.32 ; Anxiety F41.9 ; Borderline personality disorder F60.3 ; Polysubstance (including opioids) dependence with physiol dependence F19.20 and Other specified abnormal findings of blood chemistry R79.89 [place] [id number] [place] [address] Jun, Bipolar 1 disorder, depressed, moderate F31.32 [place] [id number] [place] [address] May, Bipolar 1 disorder, depressed, moderate F31.32 [place] [address] [place] [address] May, Bipolar 1 disorder, depressed, moderate F31.32 [place] [address] [address] May, [place] [address] [address] May, [place] [address] [address] May, Bipolar 1 disorder, depressed, moderate F31.32 [place] [address] [address] May, Bipolar 1 disorder, depressed, moderate F31.32 [place] [address] [address] May, Other specified abnormal findings of blood chemistry R79.[address] [address] May, Essential hypertension I10 ; Acquired hypothyroidism E03.9 ; Gastroesophageal reflux disease with esophagitis K21.0 ; Hair loss L65.9 ; Hypokalemia, gastrointestinal losses E87.6 ; Pre-diabetes R73.03 ; Candidal dermatitis B37.2 and Pure hypercholesterolemia E78.00 [place] [id number] [place] [address] Apr, Bipolar 1 disorder, depressed, moderate F31.32 [facility], [place] [id number] [place] [address] Apr, Bipolar 1 disorder, depressed, moderate F31.32 [place] [address] [address] Apr, Bipolar 1 disorder, depressed, moderate F31.32 and Anxiety F41.9 [facility] [id number] [place] [address] Mar, Encounter for immunization Z23 ; Fall, initial encounter W19.XXXA ; Rib pain on left side R07.81 and Left hip pain M25.552 [facility], [place] [address] [address] Mar, Bipolar 1 disorder, depressed, moderate F31.32 and Anxiety F41.9 [facility], [place] [address] [address] Mar, Bipolar 1 disorder, depressed, moderate F31.32 ; Anxiety F41.9 ; Borderline personality disorder F60.3 and Polysubstance (including opioids) dependence with physiol dependence F19.20 [place] [address] [address] Mar, Bipolar 1 disorder, depressed, moderate F31.32 and Anxiety F41.9 [facility] [address] [address] Feb, Irritant contact dermatitis, unspecified trigger L24.9 [facility], [place] [address] [address] Feb, [facility], [place] [address] [address] Feb, [facility], [place] [address] [address] Feb, Bipolar 1 disorder, depressed, moderate F31.32 and Anxiety F41.9 [facility], [place] [address] [address] Feb, Acute non-recurrent maxillary sinusitis J01.00 [facility], [place] [address] [address] Feb, [facility], [place] [address] [address] Feb, Bipolar 1 disorder, depressed, moderate F31.32 [facility], [place] [address] [address] Jan, [place] [id number] [place] [address] Jan, Bipolar 1 disorder, depressed, moderate F31.32 ; Anxiety F41.9 ; Borderline personality disorder F60.3 and Polysubstance (including opioids) dependence with physiol dependence F19.20 [place] [id number] [place] [address] Jan, Bipolar 1 disorder, depressed, moderate F31.32 and Anxiety F41.9 [place] [id number] [place] [address] Jan, Bipolar 1 disorder, depressed, moderate F31.32 ; Anxiety F41.9 ; Borderline personality disorder F60.3 and Polysubstance (including opioids) dependence with physiol dependence F19.20 [place] [id number] [place] [address] Jan, Bipolar 1 disorder, depressed, moderate F31.32 and Anxiety F41.9 [place] [id number] [place] [address] Dec, Hypokalemia, gastrointestinal losses E87.6 ; GERD (gastroesophageal reflux disease) K21.9 and Bipolar 1 disorder, depressed, moderate F31.32 [place] [id number] [place] [address] Dec, Bipolar 1 disorder, depressed, moderate F31.32 and Anxiety F41.9 [facility] [id number] [place] [address] Dec, [place] [address] [address] Dec, [facility] [place] [id number] [place] [address] Dec, Fall (on) (from) other stairs and steps, initial encounter W10.8XXA ; Laceration of left lower extremity, initial encounter S81.812A ; Contusion of right knee, initial encounter S80.01XA and Contusion of right shoulder, initial encounter S40.011A [place] [address] [id number] Dec, Bipolar 1 disorder, depressed, moderate F31.32 ; Anxiety F41.9 ; Borderline personality disorder F60.3 and Polysubstance (including opioids) dependence with physiol dependence F19.20 [place] [address] Dec, Bipolar 1 disorder, depressed, moderate F31.32 and Anxiety F41.9 [place] [address] [address] Dec, [place] [address] [address] Dec, Hospital discharge follow-up Z09 ; Nephrolithiasis N20.0 ; Essential hypertension I10 ; Gastroesophageal reflux disease with esophagitis K21.0 and Anxiety F41.9 [place] [address] [address] Nov, [facility] [address] [address] Nov, Dysuria R30.0 and Acute cystitis with hematuria N30.01 [facility] [address] [address] Nov, [facility] [place] [address] [address] Nov, [place] [address] [address] Nov, Gastroesophageal reflux disease with esophagitis K21.0 ; Hypercholesteremia E78.00 and Acquired hypothyroidism E03.9 [facility] [address] [address] 18 Nov, 2016 Left wrist pain M25.532 and Contusion of left wrist, initial encounter S60.212A [facility], [place] [address] [address] 18 Nov, 2016 Bipolar 1 disorder, depressed, moderate F31.32 ; Anxiety F41.9 ; Borderline personality disorder F60.3 and Polysubstance (including opioids) dependence with physiol dependence F19.20 [facility] [address] [address] 15 Nov, 2016 Abdominal pain R10.9 and GERD (gastroesophageal reflux disease) K21.9 [place] [address] [address] 12 Nov, 2016 Hypokalemia, gastrointestinal losses E87.6 [place] [address] [address] 11 Nov, 2016 Dehydration E86.0 ; Hypokalemia, gastrointestinal losses E87.6 and Vaginal candidiasis B37.3 [place] [address] [address] 08 Nov, 2016 Abnormal weight loss R63.4 ; Diarrhea, unspecified R19.7 ; Vomiting, unspecified R11.10 ; Generalized abdominal pain R10.84 and Decreased breath sounds R06.89 [place] [address] [address] Oct, Bipolar 1 disorder, depressed, moderate F31.32 and Anxiety F41.9 [place] [address] [address] Sep, Bipolar 1 disorder, depressed, moderate F31.32 ; Anxiety F41.9 ; Borderline personality disorder F60.3 and Polysubstance (including opioids) dependence with physiol dependence F19.20 [place] [id number] [place] [address] 27 Sep, 2016 Bipolar 1 disorder, depressed, moderate F31.32 and Anxiety F41.9 [place] [address] [address] Sep, Bipolar 1 disorder, depressed, moderate F31.32 [place] [id number] [place] [address] Sep, Bipolar 1 disorder, depressed, moderate F31.32 and Anxiety F41.9 [facility] [id number] [place] [address] Sep, Pain of toe of right foot M79.674 [place] [address] [address] Sep, [facility] [address] [address] Sep, Cellulitis of right ankle L03.115 [place] [address] [address] Sep, Bipolar 1 disorder, depressed, moderate F31.32 and Anxiety F41.9 [place] [address] [address] Sep, [place] [address] [address] Sep, [place] [id number] [place] [address] Sep, Bipolar 1 disorder, depressed, moderate F31.32 and Anxiety F41.9 [place] [id number] [place] [address] Sep, Accidental spider bite T63.301A [place] [address] [address] Aug, Bipolar 1 disorder, depressed, moderate F31.32 ; Anxiety F41.9 ; Borderline personality disorder F60.3 and Polysubstance (including opioids) dependence with physiol dependence F19.20 [place] [address] [address] Aug, [place] [id number] [place] [address] Aug, Bipolar 1 disorder, depressed, moderate F31.32 and Anxiety F41.9 [place] [address] [address] Aug, Pre-diabetes R73.03 ; Acute seasonal allergic rhinitis due to pollen J30.1 ; Hypercholesteremia E78.00 and Nausea R11.0 [place] [address] [address] Aug, [place] [address] [address] Aug, Bipolar 1 disorder, depressed, moderate F31.32 and Anxiety F41.9 [place] [address] [address] Aug, [place] [address] [address] Aug, [place] [address] [address] Aug, [place] [address] [address] Aug, Bipolar 1 disorder, depressed, moderate F31.32 and Anxiety F41.[address] [address] Aug, [facility] [address] [address] Aug, Insect bite, initial encounter W57.XXXA and Cellulitis of left lower leg L03.[address] [address] Aug, Bipolar 1 disorder, depressed, moderate F31.32 and Borderline personality disorder F60.[address] [address] July, [place] [id number] [place] [address] July, [place] [address] [address] July, Encounter for routine adult health examination with abnormal findings Z00.01 ; History of esophageal cancer Z85.01 ; Bipolar 1 disorder, depressed, moderate F31.32 ; Anxiety F41.9 ; Acquired hypothyroidism E03.9 ; Essential hypertension I10 ; Gastroesophageal reflux disease with esophagitis K21.0 and Encounter for immunization Z23 [place] [address] [address] July, Bipolar 1 disorder, depressed, moderate F31.32 and Anxiety F41.9 [place] [address] [address] July, [place] [address] [address] July, Bipolar 1 disorder, depressed, moderate F31.32 and Anxiety F41.9 [place] [address] [address] July, Bipolar 1 disorder, depressed, moderate F31.32 [place] [address] [address] July, Bipolar 1 disorder, depressed, moderate F31.32 and Anxiety F41.9 [place] [id number] [place] [address] Jun, Bipolar 1 disorder, depressed, moderate F31.32 [place] [address] [address] Jun, Bipolar 1 disorder, depressed, moderate F31.32 and Borderline personality disorder F60.[address] [address] Jun, Bipolar 1 disorder, depressed, moderate F31.32 [place] [address] [place] [address] Jun, Bipolar 1 disorder, depressed, moderate F31.32 [facility], [place] [id number] [place] [address] May, Bipolar 1 disorder, depressed, moderate F31.32 and Anxiety F41.9 [facility], [place] [id number] [place] [address] May, Bipolar 1 disorder, depressed, moderate F31.32 and Anxiety F41.9 [place] [id number] [place] [address] May, Bipolar 1 disorder, depressed, moderate F31.32 and Anxiety F41.9 [place] [id number] [place] [address] May, Bipolar 1 disorder, depressed, moderate F31.32 and Borderline personality disorder F60.3 [place] [id number] [place] [address] 14 May, 2016 [place] [id number] [place] [address] May, Bipolar 1 disorder, depressed, moderate F31.32 and Anxiety F41.9 [place] [id number] [place] [address] May, Bipolar 1 disorder, depressed, moderate F31.32 and Anxiety F41.9 [facility], [place] [address] [place] [address] May, [facility] [place] [id number] [place] [address] May, Bipolar 1 disorder, depressed, moderate F31.32 [facility], [place] [address] [place] [address] May, Bipolar 1 disorder, depressed, moderate F31.32 and Generalized anxiety disorder F41.1 [facility] [id number] [place] [address] Apr, Bipolar 1 disorder, depressed, moderate F31.32 and Anxiety F41.9 [place] [id number] [place] [address] Apr, [place] [id number] [place] [address] Apr, Bipolar 1 disorder, depressed, moderate F31.32 and Anxiety F41.9 [place] [id number] [place] [address] Apr, Bipolar 1 disorder, depressed, moderate F31.32 and Anxiety F41.9 [place] [id number] [place] [address] Apr, Bipolar affective disorder, depressed, severe F31.4 and Generalized anxiety disorder F41.1 [place] [id number] [place] [address] Mar, Bipolar 1 disorder, depressed, moderate F31.32 and Anxiety F41.9 [place] [id number] [place] [address] Mar, Bipolar 1 disorder, depressed, moderate F31.32 and Anxiety F41.9 [place] [id number] [place] [address] Mar, Bipolar 1 disorder, mixed, moderate F31.62 [place] [id number] [place] [address] Mar, [place] [id number] [place] [address] Mar, Bipolar 1 disorder, mixed, moderate F31.62 ; Generalized anxiety disorder F41.1 and 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 [place] [id number] [place] [address] Feb, Bipolar 1 disorder, depressed, moderate F31.32 and Anxiety F41.9 [facility] [place] [address] [place] [address] Feb, Bipolar 1 disorder, depressed, moderate F31.32 and 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 [facility] [place] [id number] [place] [address] Feb, [facility] [place] [id number] [place] [address] Feb, Bipolar 1 disorder, depressed, moderate F31.32 and Anxiety F41.9 [facility] [place] [id number] [place] [address] Feb, Bipolar 1 disorder, depressed, moderate F31.32 and 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 [facility] [place] [id number] [place] [address] Feb, Bipolar 1 disorder, depressed, moderate F31.32 and Anxiety F41.9 [facility], [place] [id number] [place] [phone] Dec, Bipolar 1 disorder, depressed, moderate F31.32 and Anxiety F41.9 [facility], [place] [id number] [place] [phone] Oct, [facility], [place] [id number] [place] [phone] Oct, [facility], [place] [id number] [place] [phone] May, [facility], [place] [id number] [place] [phone] May, [facility], [place] [id number] [place] [phone] Mar, [facility], [place] [id number] [place] [phone] Mar, IMMUNIZATIONS No Known Immunizations SOCIAL HISTORY Never Assessed REASON FOR VISIT refill request PLAN OF CARE VITAL SIGNS MEDICATIONS Medication Instructions Dosage Frequency Start Date End Date Duration Status Gabapentin 300 MG Orally 2 times a day 1 capsule 12h 20 Jan, 2017 30 days Active Propranolol HCl 10 mg Orally 2 times a day as needed for anxiety 1 tablet 13 Oct, 2017 30 day(s) Active RESULTS No Results PROCEDURES [...] Cancer Head and Neck 2004 Hospitalization History [facility] Psychiatric Admission 2015
--- OUTSIDE RECORDS SUMMARY | 2018-09-28 22:41 | XMS REPORT ---
Author Author BETTY JURADO [facility] Address [address] [place] [address] Care Team Providers Care Student Accounts Coordinator Name Role Phone ADRIEN BETTY Unavailable PROBLEMS Type Condition ICD9-CM Code SWB55-CO Code Onset Dates Condition Status SNOMED Code Problem Gastroesophageal reflux disease with esophagitis K21.0 Active 620162992 Problem Polysubstance (including opioids) dependence with physiol dependence F19.20 Active 25481321 Problem History of esophageal cancer Z85.01 Active 230218603 Problem Seasonal allergies J30.2 Active 028833284 Problem Pre-diabetes R73.03 Active 977833705 Problem GERD (gastroesophageal reflux disease) K21.9 Active 462280188 Problem Borderline personality disorder F60.3 Active 11843309 Problem Pure hypercholesterolemia E78.00 Active 191258481 Problem Nephrolithiasis N20.0 Active 74077012 Problem STATE HEP A (ADULT) DX V05.3 Active 758093443 Problem Bipolar 1 disorder, depressed, moderate F31.32 Active 90575812 Problem Anxiety F41.9 Active 36079206 Problem Vitamin D insufficiency E55.9 Active 225972759 Problem Essential hypertension I10 Active 06074016 Problem Elevated serum creatinine R79.89 Active 222936023 Problem Acquired hypothyroidism E03.9 Active 513979063 ALLERGIES No Information ENCOUNTERS Encounter Location Date Diagnosis [facility] [address] [facility] [id number] [address] Mar, [facility] [address] [address] Feb, [facility] [address], [place] [address] Feb, [facility] [id number] [address] Jan, [facility] [address] [place] [address] Dec, Bipolar 1 disorder, depressed, moderate F31.32 and Anxiety F41.9 [facility] [id number] [place] [address] Dec, Bipolar 1 disorder, depressed, moderate F31.32 [place] [address] [address] Dec, Bipolar 1 disorder, depressed, moderate F31.32 and Anxiety F41.9 [place] [id number] [place] [address] Dec, Encounter for immunization Z23 [place] [id number] [place] [address] Nov, [place] [address] [address] Nov, Bipolar 1 disorder, depressed, moderate F31.32 and Anxiety F41.9 [place] [id number] [place] [address] Nov, Bipolar 1 disorder, depressed, moderate F31.32 [place] [id number] [place] [address] Nov, [place] [id number] [place] [address] Nov, Bipolar 1 disorder, depressed, moderate F31.32 and Anxiety F41.9 [place] [id number] [place] [address] Oct, Bipolar 1 disorder, depressed, moderate F31.32 ; Anxiety F41.9 ; Borderline personality disorder F60.3 ; Polysubstance (including opioids) dependence with physiol dependence F19.20 and 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 [place] [id number] [place] [address] Oct, Bipolar 1 disorder, depressed, moderate F31.32 [facility] [id number] [id number] Sep, Encounter for dental examination Z01.20 [facility] [id number] [place] [address] Sep, Acute oral pain K13.79 [facility] [address] [address] Sep, Bipolar 1 disorder, depressed, moderate F31.32 [place] [id number] [place] [address] Sep, Bipolar 1 disorder, depressed, moderate F31.32 [facility] [id number] [place] [address] Sep, Bipolar 1 disorder, depressed, moderate F31.32 [place] [id number] [place] [address] Sep, Essential hypertension I10 ; Acquired hypothyroidism E03.9 ; Anxiety F41.9 ; Chronic nausea R11.0 and Irritant contact dermatitis due to plants, except food L24.7 [facility] [address] [place] [address] Aug, Bipolar 1 disorder, depressed, moderate F31.32 [facility] [id number] [place] [address] Aug, Bipolar 1 disorder, depressed, moderate F31.32 [facility] [id number] [place] [address] Aug, Bipolar 1 disorder, depressed, moderate F31.32 [facility] [id number] [place] [address] July, Candidal dermatitis B37.2 [facility] [id number] [place] [address] July, Acquired hypothyroidism E03.9 [facility] [id number] [place] [address] July, Bipolar 1 disorder, depressed, moderate F31.32 [facility] [id number] [place] [address] July, Seasonal allergies J30.2 [facility] [address] [address] July, Bipolar 1 disorder, depressed, moderate F31.32 [facility] [address] [address] Jun, Pre-diabetes R73.03 [place] [address] [address] Jun, Bipolar 1 disorder, depressed, moderate F31.32 ; Anxiety F41.9 ; Borderline personality disorder F60.3 ; Polysubstance (including opioids) dependence with physiol dependence F19.20 and Other specified abnormal findings of blood chemistry R79.89 [facility] [address] [address] Jun, Bipolar 1 disorder, depressed, moderate F31.32 [place] [address] [address] May, Bipolar 1 disorder, depressed, moderate F31.32 [facility] [address] [address] May, Bipolar 1 disorder, depressed, moderate F31.32 [facility] [id number] [place] [address] May, [place] [address] [address] 15 May, 2017 [place] [address] [address] 13 May, 2017 Bipolar 1 disorder, depressed, moderate F31.32 [place] [address] [place] [address] 13 May, 2017 Bipolar 1 disorder, depressed, moderate F31.32 [facility] [address] [address] 12 May, 2017 Other specified abnormal findings of blood chemistry R79.89 [place] [address] [address] 08 May, 2017 Essential hypertension I10 ; Acquired hypothyroidism E03.9 ; Gastroesophageal reflux disease with esophagitis K21.0 ; Hair loss L65.9 ; Hypokalemia, gastrointestinal losses E87.6 ; Pre-diabetes R73.03 ; Candidal dermatitis B37.2 and Pure hypercholesterolemia E78.00 [place] [address] [address] Apr, Bipolar 1 disorder, depressed, moderate F31.[address] [address] Apr, Bipolar 1 disorder, depressed, moderate F31.32 [place] [address] [address] Apr, Bipolar 1 disorder, depressed, moderate F31.32 and Anxiety F41.9 [facility] [id number] [place] [address] Mar, Encounter for immunization Z23 ; Fall, initial encounter W19.XXXA ; Rib pain on left side R07.81 and Left hip pain M25.552 [place] [id number] [place] [address] Mar, Bipolar 1 disorder, depressed, moderate F31.32 and Anxiety F41.[address] [address] Mar, Bipolar 1 disorder, depressed, moderate F31.32 ; Anxiety F41.9 ; Borderline personality disorder F60.3 and Polysubstance (including opioids) dependence with physiol dependence F19.20 [place] [id number] [place] [address] Mar, Bipolar 1 disorder, depressed, moderate F31.32 and Anxiety F41.9 [facility] [id number] [place] [address] Feb, Irritant contact dermatitis, unspecified trigger L24.9 [facility] [address] [address] Feb, [facility] [address] [address] Feb, [place] [address] [address] Feb, Bipolar 1 disorder, depressed, moderate F31.32 and Anxiety F41.9 [place] [address] [address] Feb, Acute non-recurrent maxillary sinusitis J01.00 [place] [address] [address] Feb, [place] [address] [address] Feb, Bipolar 1 disorder, depressed, moderate F31.32 [place] [address] [address] Jan, [place] [address] [address] Jan, Bipolar 1 disorder, depressed, moderate F31.32 ; Anxiety F41.9 ; Borderline personality disorder F60.3 and Polysubstance (including opioids) dependence with physiol dependence F19.20 [place] [id number] [place] [address] Jan, Bipolar 1 disorder, depressed, moderate F31.32 and Anxiety F41.9 [place] [address] [address] Jan, Bipolar 1 disorder, depressed, moderate F31.32 ; Anxiety F41.9 ; Borderline personality disorder F60.3 and Polysubstance (including opioids) dependence with physiol dependence F19.20 [place] [id number] [place] [address] Jan, Bipolar 1 disorder, depressed, moderate F31.32 and Anxiety F41.9 [place] [address] Dec, Hypokalemia, gastrointestinal losses E87.6 ; GERD (gastroesophageal reflux disease) K21.9 and Bipolar 1 disorder, depressed, moderate F31.32 [address] Dec, Bipolar 1 disorder, depressed, moderate F31.32 and Anxiety F41.9 [facility] [address] [address] Dec, [place] [address] [address] Dec, [facility] [address] [address] Dec, Fall (on) (from) other stairs and steps, initial encounter W10.8XXA ; Laceration of left lower extremity, initial encounter S81.812A ; Contusion of right knee, initial encounter S80.01XA and Contusion of right shoulder, initial encounter S40.011A [place] [id number] [place] [address] Dec, Bipolar 1 disorder, depressed, moderate F31.32 ; Anxiety F41.9 ; Borderline personality disorder F60.3 and Polysubstance (including opioids) dependence with physiol dependence F19.20 [place] [id number] [place] [address] Dec, Bipolar 1 disorder, depressed, moderate F31.32 and Anxiety F41.9 [place] [address] [address] Dec, [place] [address] [place] [address] Dec, Hospital discharge follow-up Z09 ; Nephrolithiasis N20.0 ; Essential hypertension I10 ; Gastroesophageal reflux disease with esophagitis K21.0 and Anxiety F41.9 [place] [address] [address] 28 Nov, 2016 [facility] [place] [address] [address] 24 Nov, 2016 Dysuria R30.0 and Acute cystitis with hematuria N30.01 [facility] [place] [address] [address] Nov, [place] [address] [address] Nov, [place] [address] [address] Nov, Gastroesophageal reflux disease with esophagitis K21.0 ; Hypercholesteremia E78.00 and Acquired hypothyroidism E03.9 [facility] [place] [address] [address] 18 Nov, 2016 Left wrist pain M25.532 and Contusion of left wrist, initial encounter S60.212A [place] [address] [address] 18 Nov, 2016 Bipolar 1 disorder, depressed, moderate F31.32 ; Anxiety F41.9 ; Borderline personality disorder F60.3 and Polysubstance (including opioids) dependence with physiol dependence F19.20 [facility] [place] [address] [address] 15 Nov, 2016 Abdominal pain R10.9 and GERD (gastroesophageal reflux disease) K21.9 [place] [address] [address] Nov, Hypokalemia, gastrointestinal losses E87.6 [place] [address] [address] 11 Nov, 2016 Dehydration E86.0 ; Hypokalemia, gastrointestinal losses E87.6 and Vaginal candidiasis B37.[address] [address] 08 Nov, 2016 Abnormal weight loss R63.4 ; Diarrhea, unspecified R19.7 ; Vomiting, unspecified R11.10 ; Generalized abdominal pain R10.84 and Decreased breath sounds R06.89 [place] [address] Oct, Bipolar 1 disorder, depressed, moderate F31.32 and Anxiety F41.[address] [address] Sep, Bipolar 1 disorder, depressed, moderate F31.32 ; Anxiety F41.9 ; Borderline personality disorder F60.3 and Polysubstance (including opioids) dependence with physiol dependence F19.20 [place] [address] [address] Sep, Bipolar 1 disorder, depressed, moderate F31.32 and Anxiety F41.[address] [address] Sep, Bipolar 1 disorder, depressed, moderate F31.32 [place] [address] [address] Sep, Bipolar 1 disorder, depressed, moderate F31.32 and Anxiety F41.9 [facility] [address] [address] Sep, Pain of toe of right foot M79.[address] [address] Sep, [facility] [id number] [place] [address] Sep, Cellulitis of right ankle L03.115 [facility] [id number] [place] [address] Sep, Bipolar 1 disorder, depressed, moderate F31.32 and Anxiety F41.9 [facility] [address] [address] Sep, [place] [address] [address] Sep, [place] [address] [address] Sep, Bipolar 1 disorder, depressed, moderate F31.32 and Anxiety F41.9 [place] [address] [address] Sep, Accidental spider bite T63.301A [place] [address] [address] Aug, Bipolar 1 disorder, depressed, moderate F31.32 ; Anxiety F41.9 ; Borderline personality disorder F60.3 and Polysubstance (including opioids) dependence with physiol dependence F19.20 [place] [id number] [place] [address] Aug, [place] [address] [address] Aug, Bipolar 1 disorder, depressed, moderate F31.32 and Anxiety F41.9 [place] [id number] [place] [address] Aug, Pre-diabetes R73.03 ; Acute seasonal allergic rhinitis due to pollen J30.1 ; Hypercholesteremia E78.00 and Nausea R11.0 [place] [id number] [place] [address] Aug, [place] [id number] [place] [address] 13 Aug, 2016 Bipolar 1 disorder, depressed, moderate F31.32 and Anxiety F41.9 [place] [id number] [place] [address] 08 Aug, 2016 [place] [id number] [place] [address] Aug, [place] [id number] [place] [address] Aug, [place] [id number] [place] [address] Aug, Bipolar 1 disorder, depressed, moderate F31.32 and Anxiety F41.9 [place] [id number] [place] [address] Aug, [facility] [id number] [place] [address] Aug, Insect bite, initial encounter W57.XXXA and Cellulitis of left lower leg L03.116 [place] [id number] [place] [address] Aug, Bipolar 1 disorder, depressed, moderate F31.32 and Borderline personality disorder F60.3 [place] [id number] [place] [address] July, [place] [id number] [place] [address] July, [place] [id number] [place] [address] July, Encounter for routine adult health examination with abnormal findings Z00.01 ; History of esophageal cancer Z85.01 ; Bipolar 1 disorder, depressed, moderate F31.32 ; Anxiety F41.9 ; Acquired hypothyroidism E03.9 ; Essential hypertension I10 ; Gastroesophageal reflux disease with esophagitis K21.0 and Encounter for immunization Z23 [place] [id number] [place] [address] July, Bipolar 1 disorder, depressed, moderate F31.32 and Anxiety F41.9 [facility] [id number] [place] [address] July, [facility] [id number] [place] [address] July, Bipolar 1 disorder, depressed, moderate F31.32 and Anxiety F41.9 [facility] [id number] [place] [address] July, Bipolar 1 disorder, depressed, moderate F31.32 [place] [id number] [place] [address] July, Bipolar 1 disorder, depressed, moderate F31.32 and Anxiety F41.9 [place] [id number] [place] [address] Jun, Bipolar 1 disorder, depressed, moderate F31.32 [place] [id number] [place] [address] Jun, Bipolar 1 disorder, depressed, moderate F31.32 and Borderline personality disorder F60.3 [place] [id number] [place] [address] Jun, Bipolar 1 disorder, depressed, moderate F31.32 [place] [id number] [place] [address] Jun, Bipolar 1 disorder, depressed, moderate F31.32 [facility] [id number] [place] [address] May, Bipolar 1 disorder, depressed, moderate F31.32 and Anxiety F41.9 [facility] [address] [place] [address] May, Bipolar 1 disorder, depressed, moderate F31.32 and Anxiety F41.9 [place] [address] [place] [address] [place] [address] May, Bipolar 1 disorder, depressed, moderate F31.32 and Anxiety F41.9 [facility] [id number] [place] [address] May, Bipolar 1 disorder, depressed, moderate F31.32 and Borderline personality disorder F60.3 [place] [address] [address] May, [place] [id number] [place] [address] May, Bipolar 1 disorder, depressed, moderate F31.32 and Anxiety F41.9 [place] [id number] [place] [address] May, Bipolar 1 disorder, depressed, moderate F31.32 and Anxiety F41.9 [place] [id number] [place] [address] May, [place] [id number] [place] [address] May, Bipolar 1 disorder, depressed, moderate F31.32 [place] [id number] [place] [address] May, Bipolar 1 disorder, depressed, moderate F31.32 and Generalized anxiety disorder F41.1 [place] [id number] [place] [address] Apr, Bipolar 1 disorder, depressed, moderate F31.32 and Anxiety F41.9 [place] [id number] [place] [address] Apr, [place] [id number] [place] [address] Apr, Bipolar 1 disorder, depressed, moderate F31.32 and Anxiety F41.9 [place] [id number] [place] [address] 09 Apr, 2016 Bipolar 1 disorder, depressed, moderate F31.32 and Anxiety F41.9 [place] [id number] [place] [address] 07 Apr, 2016 Bipolar affective disorder, depressed, severe F31.4 and Generalized anxiety disorder F41.1 [facility] [id number] [place] [address] Mar, Bipolar 1 disorder, depressed, moderate F31.32 and Anxiety F41.9 [place] [address] [place] [id number] [place] [address] Mar, Bipolar 1 disorder, depressed, moderate F31.32 and Anxiety F41.9 [place] [address] [id number] [place] [address] Mar, Bipolar 1 disorder, mixed, moderate F31.62 [place] [address] [place] [id number] [place] [address] Mar, [place] [address] [id number] [place] [address] Mar, Bipolar 1 disorder, mixed, moderate F31.62 ; Generalized anxiety disorder F41.1 and 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 [place] [address] [place] [address] Feb, Bipolar 1 disorder, depressed, moderate F31.32 and Anxiety F41.9 [place] [address] [place] [address] Feb, Bipolar 1 disorder, depressed, moderate F31.32 and Other nursing home (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 Z79.899 [place] [address] [place] [id number] [place] [address] Feb, [facility] [address] [place] [address] Feb, Bipolar 1 disorder, depressed, moderate F31.32 and Anxiety F41.9 [facility] [address] [place] [address] Feb, Bipolar 1 disorder, depressed, moderate F31.32 and Other nursing home (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 Z79.899 [facility] [address] [place], [place] [address] Feb, Bipolar 1 disorder, depressed, moderate F31.32 and Anxiety F41.9 [facility] [address] [id number] [place] [address] Dec, Bipolar 1 disorder, depressed, moderate F31.32 and Anxiety F41.9 [place] [address] [place] [id number] [place] [address] Oct, [facility] [address] [place] [id number] [place] [address] Oct, [facility] [id number] [place] [address] May, [facility] [id number] [place] [address] May, [place] [address] [place] [id number] [place] [address] Mar, [place] [address] [place] [id number] [place] [address] Mar, IMMUNIZATIONS No Known Immunizations SOCIAL HISTORY [...] Cancer Head and Neck 2004 Hospitalization History [facility] Psychiatric Admission 2016
[2018-09-28] MEDS ORDERED: NS IV 1000 ML 1,000 ML IV ONE (22:49)
--- NOTE | 2018-09-28 22:58 | ED GI ---
General Stated Complaint: VOMITING BLOOD Source of Information: Patient History of Present Illness Date Seen by Provider: Sep 28, 2018 Time Seen by Provider: 22:38 Initial Comments PT ARRIVES VIA POV FROM HOME PT STATES SHE HAS EGD WITH ESOPHAGEAL DILATION TODAY BY DR. WILLETT AT [facility]. STATES SHE HAS HAD NAUSEA AND VOMITED X 5 SINCE 0 TONIGHT, AND THE LAST TIME "IT WAS A LITTLE PINK" --SO CAME TO ER. DID NOT ATTEMPT TO CONTACT DR. WILLETT PT IS NOT ON ANY ASPIRIN OR BLOOD THINNERS OR NSAIDS PT HAS HAD ONGOING LOWER ABDOMINAL / SUPRAPUBIC PAIN AND TARRY STOOLS FOR THE LAST 4 WEEKS, AND IS NO DIFFERENT TODAY. NO UPPER ABDOMINAL PAIN OR CHEST PAIN OR NECK PAIN NO FEVER PT HAS BEEN ABLE TO DRINK LIQUIDS--WATER AND POP/ DR. ROMERO--AND ATE SOME ICE CREAM, BUT HAD ALREADY STARTED THROWING UP BEFORE SHE ATE THE ICE CREAM. PT HAS NOT TAKEN ANY MEDICATIONS SINCE SHE GOT HOME FROM THE HOSPITAL NO PROBLEMS URINATING PT HAS HAD THIS PROCEDURE DONE MULTIPLE TIMES AND NOT HAD THIS PROBLEM PT HAD ESOPHAGEAL CANCER-DX IN 2010, AND HAS HAD SURGERY, CHEMO, AND RADIATION--COMPLETED TREATMENT IN 2012. HAS HAD FEEDING TUBE, TRACH AND PORT ALL REMOVED A LONG TIME AGO. PT HAS ALSO HAD OROPHARYNGEAL CANCER--S/P RADICAL NECK DISSECTION PT HAS HAD HISTORY OF DIVERTICULITIS AND HAS HAD COLON RESECTION FOR IT--NO COLOSTOMY. NO PROBLEMS FOR 10 YEARS SEEN HERE 09/15/18 FOR LOWER ABDOMINAL PAIN--LAB NORMAL AND CT NEGATIVE FOR DIVERTICULITIS, BUT PT STATES IT FEELS LIKE PRIOR EPISODES OF DIVERTICULITIS, SO WAS TREATED ACCORDINGLY. PT STATES NO IMPROVEMENT IN THOSE SYMPTOMS HAS NOT ATTEMPTED TO FOLLOW UP WITH HER PCP FOR THAT PROBLEM AND DID NOT ADDRESS IT WITH DR. WILLETT EITHER. PT HAS ROUTINE APPOINTMENT / FOLLOW UP WITH [facility] 10/04/18 Allergies and Home Medications Allergies Coded Allergies: Iodinated Contrast- Oral and IV Dye (Verified Allergy, Severe, HIVES, 10/02/17) COUGHING, SNEEZING, HIVES UPON TRACE AMOUNT OF CONTRAST. codeine (Verified Allergy, Intermediate, RASH/SWELLING; PATIENT HAS RECEIVED MORPHINE W/O PROBLEMS, 12/06/16) adhesive tape (Verified Allergy, Unknown, 12/06/16) latex (Verified Allergy, Unknown, 12/06/16) Penicillins (Verified Adverse Reaction, Mild, NAUSEA/VOMITING, 12/07/16) SHE CAN TAKE AUGMENTIN FINE Home Medications Amlodipine Besylate 10 Mg Tablet, 10 MG PO DAILY, (Reported) Atorvastatin Calcium 20 Mg Tablet, 20 MG PO DAILY, (Reported) Budesonide/Formoterol Fumarate 10.2 Gm Hfa.aer.ad, 2 PUFF IH PRN PRN for SHORTNESS OF BREATH, (Reported) Ciprofloxacin HCl 500 Mg Tablet, 500 MG PO twice a day Prescribed by: DAVID STEINER on 09/15/181618 Cyclobenzaprine HCl 5 Mg Tablet, 5 MG PO Q8H PRN for SPASMS Prescribed by: IFEOMA ERICKSON on 07/05/182115 Escitalopram Oxalate 20 Mg Tablet, 20 MG PO DAILY, (Reported) Gabapentin 300 Mg Capsule, 300 MG PO QID, (Reported) Hydrocodone/Acetaminophen 1 Each Tablet, 1 EACH PO Q4H PRN for PAIN-MODERATE Prescribed by: MARTHA LEE on 11/25/17 1419 Hydrocodone/Acetaminophen 1 Each Tablet, 1 EACH PO Q4H PRN for PAIN-MODERATE Prescribed by: DAVID STEINER on 09/15/18 162 Lamotrigine 200 Mg Tablet, 200 MG PO DAILY, (Reported) Levothyroxine Sodium 50 Mcg Tablet, 50 MCG PO DAILY, (Reported) Lurasidone HCl 40 Mg Tablet, 40 MG PO DAILY, (Reported) Metronidazole 500 Mg Tablet, 500 MG PO twice a day Prescribed by: DAVID STEINER on 09/15/181618 Ondansetron 8 Mg Tab.rapdis, 8 MG PO Q6H Prescribed by: AGAPITO CHONG on 09/29/18251 Pantoprazole Sodium 40 Mg Tablet.dr, 40 MG PO DAILY, (Reported) Prednisone 20 Mg Tab, 40 MG PO DAILY Prescribed by: IFEOMA ERICKSON on 07/05/182115 Sucralfate 1 Gm/10 Ml Oral.susp, 1 GM PO QID AC AND HS Prescribed by: AGAPITO CHONG on 09/29/18251 Patient Home Medication List Home Medication List Reviewed: Yes Review of Systems Review of Systems Constitutional: no symptoms reported; No dizziness Respiratory: No Symptoms Reported Cardiovascular: No Symptoms Reported Gastrointestinal: See HPI, Abdominal Pain; Denies Constipated, Denies Diarrhea; Nausea, Vomiting Genitourinary: No Symptoms Reported Musculoskeletal: no symptoms reported Skin: no symptoms reported Psychiatric/Neurological: No Symptoms Reported Endocrine: No Symptoms Reported Hematologic/Lymphatic: No Symptoms Reported Past Scjpgpe-[id number]-[id number] Hx Patient Social History Alcohol Use: Occasionally Uses Recreational Drug Use: No Smoking Status: Former Smoker (1 PPD, QUIT 30 YEARS AGO) Type Used: Cigarettes Former Smoker, Quit: Aug 11, 1986 2nd Hand Smoke Exposure: No Recent Foreign Travel: No Contact w/Someone Who Travel: No Recent Hopitalizations: No Immunizations Up To Date Tetanus Booster (TDap): Less than 5yrs PED Vaccines UTD: No Date of Pneumonia Vaccine: July 25, 2016 Date of Influenza Vaccine: July 25, 2016 Seasonal Allergies Seasonal Allergies: Yes Past Medical History Surgeries: Yes (COLON RESECTION FOR DIVERTICULITIS--NO COLOSTOMY; MODIFIED RADICAL NECK DISSECTION ; PEG-FEEDING TUBE, TRACH AND PORT ALL PLACED AND SUBSEQUENTLY REMOVED AFTER CANCER TREATMENT WAS COMPLETED. MULTIPLE EGD'S/ESOPHAGEAL DILATIONS AND COLONOSCOPIES/POLYPECTOMIES; HYST/BSO; CYSTOSCOPY/URETERAL STENT AND KIDNEY STONE REMOVAL; CARDIAC CATH--NO INTERVENTION; BREAST REDUCTION; BUNIONECTOMY) Abdominal, Adenoidectomy, Appendectomy, Bowel Surgery, Breast, Cardiac, Gallbladder, Hysterectomy, Oophorectomy, Orthopedic, Renal, Tonsillectomy, Trach eostomy, Tubal Ligation Respiratory: Yes (HAS INHALER PRN) Chronic Bronchitis Currently Using CPAP: No Cardiac: Yes (CARDIAC CATH-NO STENTS; BLOOD CLOT 2010 UPPER SHOULDER/ARM --FROM PORT, PER PT. 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 Sexually Transmitted Disease: No HIV/AIDS: No Genitourinary: Yes Kidney Stones Gastrointestinal: Yes (OROPHARYNGEAL/ESOPHAGEAL CANCER--S/P SURGERY/CHEMO/RADIATION; FEEDING TUBE PLACED/REMOVED; ESOPHAGEAL STRICTURES DILATED MULTIPLE TIMES; COLON RESECTION FOR DIVERTICULITIS;) Gastroesophageal Reflux, Chronic Constipation, Diverticulosis, Polyps Musculoskeletal: Yes Arthritis, Fibromyalgia Endocrine: Yes Diabetes, 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) Dysphagia Loss of Vision: Bilateral Hearing Impairment: Denies Cancer: Yes (OROPHARNYX/ESOPHAGEAL CANCER) Esophageal Did You Recieve Any Treatments: Yes What Type of Treatment Did You: Chemotherapy, Radiation, Surgical Intervention Psychosocial: Yes (MULTIPLE PSYCH ADMITS, OVERDOSES AND SUICIDE ATTEMPTS) Sleep Difficulties, Anxiety, Suicide Attempts, Bipolar, Depression Integumentary: No Blood Disorders: No Adverse Reaction/Blood Tranf: No Family Medical History Alzheimer's disease 19 MOTHER Arthritis 19 MOTHER Cardiovascular disease 19 MOTHER Cataracts 19 MOTHER Dementia 19 MOTHER Diabetes mellitus 19 FATHER Headache disorder Hypercholesterolemia 19 FATHER Hypertension 19 FATHER Neoplasm 19 FATHER (PANCREATIC CANCER) Heart Disease, Cancer, Hypertension, Psychiatric Problems Physical Exam Vital Signs Vital Signs - First Documented 09/28/18 23:35 Temp 96.6 Pulse 78 Resp 20 B/P (MAP) 146/90 (108) Pulse Ox 94 Capillary Refill : Height/Weight/BMI Height: 5'7.00" Weight: 192lbs. 0.0oz. 87.536758lp; 27.9 BMI Method:Stated General Appearance: WD/WN, no apparent distress, other (WALKS UPRIGHT AND MOVES WITHOUT DIFFICULTY) HEENT: other (EDENTULOUS) Neck: normal inspection (POST SURGICAL CHANGES) Respiratory: normal breath sounds, no respiratory distress, no accessory muscle use Cardiovascular: regular rate, rhythm, no murmur Gastrointestinal: normal bowel sounds, soft, no organomegaly, no pulsatile mass; No distended, No guarding, No rebound; tenderness (SUPRAPUBIC TENDERNESS. NO EPIGASTRIC TENDERNESS) Extremities: normal inspection, no pedal edema, normal capillary refill Back: no CVA tenderness Neurologic/Psychiatric: capsule maker II-XII nml as tested, no motor/sensory deficits, alert, normal mood/affect, oriented x 3 Skin: normal color, warm/dry; No rash Progress/Results/Core Measures Results/Orders Lab Results Laboratory Tests Test 09/28/18 22:50 09/28/18 23:26 Range/Units White Blood Count 4.2 L 4.3-11.0 10^3/uL Red Blood Count 4.69 4.35-5.85 10^6/uL Hemoglobin 13.4 11.5-16.0 G/DL Hematocrit 41 35-52 % Mean Corpuscular Volume 87 80-99 FL Mean Corpuscular Hemoglobin 29 25-34 PG Mean Corpuscular Hemoglobin Concent 33 32-36 G/DL Red Cell Distribution Width 15.0 H 10.0-14.5 % Platelet Count 209 130-400 10^3/uL Mean Platelet Volume 9.3 7.4-10.4 FL Neutrophils (%) (Auto) 56 42-75 % Lymphocytes (%) (Auto) 32 12-44 % Monocytes (%) (Auto) 11 0-12 % Eosinophils (%) (Auto) 1 0-10 % Basophils (%) (Auto) 0 0-10 % Neutrophils # (Auto) 2.3 1.8-7.8 X 10^3 Lymphocytes # (Auto) 1.3 1.0-4.0 X 10^3 Monocytes # (Auto) 0.5 0.0-1.0 X 10^3 Eosinophils # (Auto) 0.1 0.0-0.3 10^3/uL Basophils # (Auto) 0.0 0.0-0.1 10^3/uL Prothrombin Time 12.7 12.2-14.7 SEC INR Comment 0.9 0.8-1.4 Activated Partial Thromboplast Time 30 24-35 SEC Sodium Level 142 135-145 MMOL/L Potassium Level 3.4 L 3.6-5.0 MMOL/L Chloride Level 106 98-107 MMOL/L Carbon Dioxide Level 24 21-32 MMOL/L Anion Gap 12 5-14 MMOL/L Blood Urea Nitrogen 10 7-18 MG/DL Creatinine 0.80 0.60-1.30 MG/DL Estimat Glomerular Filtration Rate > 60 BUN/Creatinine Ratio 13 Glucose Level 106 H 70-105 MG/DL Calcium Level 9.7 8.5-10.1 MG/DL Corrected Calcium 9.8 8.5-10.1 MG/DL Total Bilirubin 0.2 0.1-1.0 MG/DL Aspartate Amino Transf (AST/SGOT) 12 5-34 U/L Alanine Aminotransferase (ALT/SGPT) 10 0-55 U/L Alkaline Phosphatase 69 40-136 U/L Total Protein 6.1 L 6.4-8.2 GM/DL Albumin 3.9 3.2-4.5 GM/DL Amylase Level 38 25-125 U/L Lipase 38 8-78 U/L Urine Color YELLOW Urine Clarity CLEAR Urine pH 5 5-9 Urine Specific Hegins 1.025 H 1.016-1.022 Urine Protein NEGATIVE NEGATIVE Urine Glucose (UA) NEGATIVE NEGATIVE Urine Ketones NEGATIVE NEGATIVE Urine Nitrite NEGATIVE NEGATIVE Urine Bilirubin NEGATIVE NEGATIVE Urine Urobilinogen NORMAL NORMAL MG/DL Urine Leukocyte Esterase NEGATIVE NEGATIVE Urine RBC (Auto) 1+ H NEGATIVE Urine RBC 0-2 /HPF Urine WBC NONE /HPF Urine Squamous Epithelial Cells 0-2 /HPF Urine Crystals NONE /LPF Urine Bacteria NEGATIVE /HPF Urine Casts NONE /LPF Urine Mucus SMALL H /LPF Urine Culture Indicated NO My Orders Orders - AGAPITO CHONG DO Ed Iv/Invasive Line Start (09/28/18 22:49) Amylase (09/28/18 22:49) Cbc With Automated Diff (09/28/18 22:49) Comprehensive Metabolic Panel (09/28/18 22:49) Lipase (09/28/18 22:49) Protime With Inr (09/28/18 22:49) Partial Thromboplastin Time (09/28/18 22:49) Ua Culture If Indicated (09/28/18 22:49) Ed Iv/Invasive Line Start (09/28/18 22:49) Ns Iv 1000 Ml (Sodium Chloride 0.9%) (09/28/18 22:49) Pantoprazole Injection (Protonix Injecti (09/28/18 23:00) Diphenhydramine Injection (Benadryl Inje (09/28/18 23:45) Famotidine Injection (Pepcid Injection) (09/28/18 23:45) Methylprednisolone Sod Succ (Solu-Medrol (09/28/18 23:45) Ondansetron Injection (Zofran Injectio (09/29/18 00:00) Ct Chest/Abdomen/Pelvis W (09/29/18 00:01) Diphenhydramine Injection (Benadryl Inje (09/29/18 01:30) Rx-Ondansetron Po (Rx-Zofran Po) (09/29/18 02:47) Medications Given in ED Current Medications Medications Dose Ordered Sig/Keven Route Start Time Stop Time Status Last Admin Dose Admin Diphenhydramine HCl 50 mg ONCE ONCE IVP 09/28/18 23:45 09/28/18 23:46 DC 09/29/18 00:03 50 MG Diphenhydramine HCl 50 mg ONCE ONCE IVP 09/29/18 01:30 09/29/18 01:31 DC 09/29/18 01:45 50 MG Famotidine 40 mg ONCE ONCE IVP 09/28/18 23:45 09/28/18 23:46 DC 09/29/18 00:03 40 MG Methylprednisolone Sodium Succinate 125 mg ONCE ONCE IVP 09/28/18 23:45 09/28/18 23:46 DC 09/29/18 00:03 125 MG Ondansetron HCl 8 mg ONCE ONCE IVP 09/29/18 00:00 09/29/18 00:01 DC 09/29/18 00:03 8 MG Pantoprazole 80 mg ONCE ONCE IV 09/28/18 23:00 09/28/18 23:01 DC 09/28/18 23:05 80 MG Sodium Chloride 1,000 ml @ 0 mls/hr Q0M ONCE IV 09/28/18 22:49 09/28/18 22:51 DC 09/28/18 23:04 1,000 MLS/HR Vital Signs/I&O 09/28/18 09/29/18 23:35 03:13 Temp 96.6 Pulse 78 74 Resp 20 20 B/P (MAP) 146/90 (108) 116/66 (83) Pulse Ox 94 92 Progress Progress Note : Progress Note STATES SHE CAN HAVE IV CONTRAST, LONG SHE IS PRE-MEDICATED AND HAS HAD IT MULTIPLE TIMES WITHOUT PROBLEMS--PRIOR REACTION TO CONTRAST WAS MILD RASH--NO SWELLING OR DIFFICULTY BREATHING, ETC. PT DID HAVE 2 SMALL, DIME-SIZED, URTICARIAL WHEALS TO LEFT SCAPULA, GIVEN AN ADDITIONAL DOSE OF BENADRYL AND SYMPTOMS RESOLVED PT MUCH LATER STATES, THAT SHE DID EAT A LARGE ORDER OF CHILI CHEESE TATER TOTS AFTER SHE WAS RELEASED FROM THE HOSPITAL TODAY, AND BEFORE SHE STARTED HAVING NAUSEA AND VOMITING--NOW STATES SHE THINKS THAT IT WAS ACTUALLY THE CHILI CHEESE THAT SHE SAW IN THE EMESIS AND NOT ACTUALLY ANY BLOOD NO DETERIORATION IN PT'S CONDITION DURING ER STAY PT WITH MULTITUDE OF DEMANDS DURING ER STAY--CONSTANTLY PUSHING CALL LIGHT BUTTON, WANTING PILLOW ADJUSTED, ETC. PT WITH RESOLUTION OF NAUSEA AND NO VOMITING DURING ER STAY NO C/O THROAT OR ABDOMINAL PAIN AT DISMISSAL STATES SHE FEELS MUCH BETTER MARKED DELAY IN OBTAINING CT, AND ALSO WITH RECEIVING REPORT Diagnostic Imaging Comments ABDOMEN XRAYS--NO ACUTE PROCESS, PENDING RADIOLOGIST REVIEW CT CHEST/ABDOMEN/PELVIS--NO ACUTE PROCESS, MILD ATELECTASIS IN LUNG BASES; RIGHT NEPHROLITHIASIS WITHOUT OBSTRUCTION OR URETERAL STONE, DIVERTICULOSIS WITHOUT ACUTE DIVERTICULITIS--PER [facility] VIA FAX AT [id number] Reviewed: Reviewed by Me Departure Impression Primary Impression: POST PROCEDURE NAUSEA AND VOMITING Additional Impressions: S/P EGD WITH ESOPHAGEAL DILATION Lower abdominal pain Disposition: HOME, SELF-CARE Condition: Improved Departure-Patient Inst. Referrals: [facility] (PCP) Primary Care Physician OMAR BRAVO APRN (Family) Primary Care Physician Patient Instructions: Nausea and Vomiting, Adult (DC), Stomach Ache and Stomach Upset Add. Discharge Instructions: CLEAR LIQUIDS--WATER, BROTH, JELLO, GATORADE TOMORROW IF YOU ARE BETTER, ADD BRATS DIET TO CLEAR LIQUIDS--BANANAS, RICE, APPLESAUCE, TOAST, SALTINES CONTINUE YOUR REGULAR MEDICATIONS PRESCRIBED FOLLOW UP WITH DR. WILLETT ON MONDAY FOR FURTHER CARE, OR SOONER IF SYMPTOMS WORSEN Scripts Sucralfate (Carafate) 1 Gm/10 Ml Oral.susp 1 GM PO QID AC AND HS, #400 ML Prov: AGAPITO CHONG DO 09/29/18 Ondansetron (Ondansetron Odt) 8 Mg Tab.rapdis 8 MG PO Q6H for Nausea/Vomiting, #10 TAB Prov: AGAPITO CHONG DO 09/29/18 AGAPITO CHONG DO Sep 28, 2018 22:58
[2018-09-28] MEDS ORDERED: PANTOPRAZOLE 40 MG (PROTONIX) VIAL IV ONE (23:00)
[2018-09-28 23:08] LABS: BASOPHILS % (AUTO) 0 % (0-10); EOSINOPHILS # (AUTO) 0.1 10^3/uL (0.0-0.3); EOSINOPHILS % (AUTO) 1 % (0-10); HEMATOCRIT 41 % (35-52); HEMOGLOBIN 13.4 G/DL (11.5-16.0); LYMPHOCYTES # (AUTO) 1.3 X 10^3 (1.0-4.0); LYMPHOCYTES % (AUTO) 32 % (12-44); MEAN CORPUSCULAR HEMOGLOBIN 29 PG (25-34); MEAN CORPUSCULAR HGB CONC 33 G/DL (32-36); MEAN CORPUSCULAR VOLUME 87 FL (80-99); MEAN PLATELET VOLUME 9.3 FL (7.4-10.4); MONOCYTES # (AUTO) 0.5 X 10^3 (0.0-1.0); MONOCYTES % (AUTO) 11 % (0-12); NEUTROPHILS # (AUTO) 2.3 X 10^3 (1.8-7.8); NEUTROPHILS % (AUTO) 56 % (42-75); PLATELET COUNT 209 10^3/uL (130-400); WHITE BLOOD COUNT 4.2 10^3/uL (4.3-11.0)
--- OUTSIDE RECORDS SUMMARY | 2018-09-28 23:17 | XMS REPORT | Continuity of Care Document ---
Author Organization Unknown Address Unknown Allergies There is no data. Medications There is no data. Problems There is no data. Procedures There is no data. Results Test Result Range CBC - 11/11/16 17:10 WBC 5.9 x10E3/uL [...] - 11/11/16 17:10 TSH 0.961 uIU/mL 0.450-4.500 A1C - 05/11/17 11:45 HEMOGLOBIN A1c 5.2 % of total Hgb <5.7 CMP - 08/27/18 09:26 GLUCOSE 109 mg/dL 65-99 UREA NITROGEN (BUN) 12 mg/dL 7-25 CREATININE 0.84 mg/dL 0.50-1.05 eGFR NON-AFR. DUTCH 76 mL/min/1.73m2 > OR=60 eGFR 88 mL/min/1.73m2 > OR=60 BUN/CREATININE RATIO NOT APPLICABLE (calc) 6-22 SODIUM 143 mmol/L 135-146 POTASSIUM 3.6 mmol/L 3.5-5.3 CHLORIDE 104 mmol/L 98-110 CARBON DIOXIDE 29 mmol/L 20-32 CALCIUM 9.3 mg/dL 8.6-10.4 PROTEIN, TOTAL 6.2 g/dL 6.1-8.1 ALBUMIN 4.2 g/dL 3.6-5.1 GLOBULIN 2.0 g/dL (calc) 1.9-3.7 ALBUMIN/GLOBULIN RATIO 2.1 (calc) 1.0-2.5 BILIRUBIN, TOTAL 0.3 mg/dL 0.2-1.2 ALKALINE PHOSPHATASE 75 U/L 33-130 AST 17 U/L 10-35 ALT 25 U/L 6-29 TSH - 08/27/18 09:26 TSH 2.04 mIU/L 0.40-4.50 Encounters ACCT No. Visit Date/Time Discharge Status Pt. Type Provider Facility Loc./Unit Complaint [id number] 09/15/2018 13:00:00 09/15/2018 23:59:59 [facility] Outpatient OMAR BRAVO [facility] [id number] 08/27/2018 09:20:00 Document Registration [id number] 05/11/2017 11:20:00 Document Registration [id number] 11/11/2016 14:40:00 Document Registration
[2018-09-28 23:21] LABS: INR 0.9 (0.8-1.4); PROTHROMBIN TIME PATIENT 12.7 SEC (12.2-14.7)
[2018-09-28 23:34] LABS: ALANINE AMINOTRANSFERASE 10 U/L (0-55); ALBUMIN 3.9 GM/DL (3.2-4.5); ALKALINE PHOSPHATASE 69 U/L (40-136); AMYLASE 38 U/L (25-125); BILIRUBIN,TOTAL 0.2 MG/DL (0.1-1.0); BUN/CREATININE RATIO 13; CALCIUM 9.7 MG/DL (8.5-10.1); CARBON DIOXIDE 24 MMOL/L (21-32); CHLORIDE 106 MMOL/L (98-107); GFR ESTIMATED > 60; GLUCOSE 106 MG/DL (70-105); LIPASE 38 U/L (8-78); POTASSIUM 3.4 MMOL/L (3.6-5.0); SODIUM 142 MMOL/L (135-145); TOTAL PROTEIN 6.1 GM/DL (6.4-8.2)
[2018-09-28 23:40] LABS: BILIRUBIN,URINE NEGATIVE (NEGATIVE); CLARITY,URINE CLEAR; COLOR,URINE YELLOW; GLUCOSE, URINE (UA) NEGATIVE (NEGATIVE); KETONES,URINE NEGATIVE (NEGATIVE); LEUKOCYTE ESTERASE ,URINE NEGATIVE (NEGATIVE); NITRITE,URINE NEGATIVE (NEGATIVE); PH,URINE 5 (5-9); PROTEIN,URINE NEGATIVE (NEGATIVE); UROBILINOGEN,URINE NORMAL (NORMAL)
[2018-09-28] MEDS ORDERED: FAMOTIDINE 20MG/2ML IV (PEPCID) IVP ONE (23:45)
[2018-09-28] MEDS ORDERED: diphenhydrAMINE 50 MG/ML INJ (BENADRYL) IVP ONE (23:45)
[2018-09-28] MEDS ORDERED: methylPREDNISolone 125 MG (Solu-MEDROL) VIAL IVP ONE (23:45)
[2018-09-28 23:51] LABS: BACTERIA,URINE NEGATIVE /HPF; RBC,URINE 0-2 /HPF; SQUAMOUS EPITHELIAL CELL,UR 0-2 /HPF
[2018-09-29] MEDS ORDERED: ONDANSETRON 4 MG/2 ML (SDV) Z0FRAN IVP ONE
[2018-09-29] MEDS ORDERED: diphenhydrAMINE 50 MG/ML INJ (BENADRYL) IVP ONE (01:30)
[2018-09-29] MEDS ORDERED: RX-ONDANSETRON 4 MG ODT (ZOFRAN) PPK #4 PO STA (02:47)
[2018-09-29] MEDS ORDERED: ONDA8TAB13 PO (02:52)
[2018-09-29] MEDS ORDERED: SUCR1ORA5 PO (02:52)
[2018-09-29 03:13] VITALS: BP 116/66
--- NOTE | 2018-09-29 08:45 | Diagnostic Imaging Report ---
PROCEDURE: CT chest, abdomen, and pelvis with contrast. TECHNIQUE: Multiple contiguous axial images were obtained through the chest, abdomen, and pelvis after the administration of intravenous contrast. Auto Exposure Controls were utilized during the CT exam to meet ALARA standards for radiation dose reduction. INDICATION: Hematemesis. Comparison is made with CT neck and chest from 10/04/2017. Comparison also made with recent CT abdomen and pelvis from 09/15/2018. FINDINGS: The lungs demonstrate no evidence of focal consolidation. There appears to be some minimal atelectasis at the right base. There is no significant effusion. There is no evidence of pneumothorax. There is no suspicious pulmonary nodule or mass. There are no findings of thoracic adenopathy. Thoracic aorta normal in caliber. Heart size appears appropriate. Central pulmonary arteries unremarkable. There is no pericardial collection. Within the abdomen, there has been prior cholecystectomy. There is no abnormal biliary dilatation. There is no focal intrahepatic abnormality. The portal veins are patent. The pancreas unremarkable. There is no splenic abnormality. The adrenal glands are normal in size. The kidneys enhance normally and are nonobstructed. There is a nonobstructive stone within the right mid kidney. The small and large bowel appear normal in caliber without evidence of obstruction. There is no focal abnormal bowel thickening. There are a few uncomplicated diverticula. There appear to be prior surgical anastomotic sutures within the sigmoid. There is no free air, free fluid or evidence of abscess. Patient appears status post prior hysterectomy. Urinary bladder unremarkable. No pathologically enlarged lymph nodes are evident. There are atherosclerotic calcifications within a normal caliber aorta. There are degenerative features present within the spine but no acute or suspicious osseous abnormality. IMPRESSION: 1. Minimal right base atelectasis. Lungs otherwise clear. No acute process evident within the chest. 2. No acute inflammatory or obstructive process within the abdomen or pelvis. 3. Stable nonobstructing right renal calculus. 4. Prior cholecystectomy, hysterectomy and evidence of previous surgery involving the sigmoid colon. 5. Uncomplicated diverticulosis. There is no bowel obstruction. 6. No free fluid, free air or focal inflammation within the omentum or mesentery. Dictated by: Dictated on workstation # [id number]
== END 2018-09-29 03:15 | disposition home or self-care (01) ==
LOC: EDUNIT# 22:31 → ER 22:32
DX: K91.89 Other postprocedural complications and disorders of digestive system (principal); R10.30 Lower abdominal pain, unspecified; I10 Essential (primary) hypertension; E11.9 Type 2 diabetes mellitus without complications; G43.909 Migraine, unspecified, not intractable, without status migrainosus; K21.9 Gastro-esophageal reflux disease without esophagitis; E78.00 Pure hypercholesterolemia, unspecified; F41.9 Anxiety disorder, unspecified; F31.9 Bipolar disorder, unspecified; M79.7 Fibromyalgia; Z87.19 Personal history of other diseases of the digestive system; Z88.5 Allergy status to narcotic agent; Z85.01 Personal history of malignant neoplasm of esophagus; Z82.49 Family history of ischemic heart disease and other diseases of the circulatory system; Z80.0 Family history of malignant neoplasm of digestive organs; Z91.041 Radiographic dye allergy status; Z91.040 Latex allergy status; Z88.8 Allergy status to other drugs, medicaments and biological substances; Z88.0 Allergy status to penicillin; Z79.52 Long term (current) use of systemic steroids; Z87.891 Personal history of nicotine dependence; Z90.89 Acquired absence of other organs; Z90.710 Acquired absence of both cervix and uterus; Z98.51 Tubal ligation status; Z90.49 Acquired absence of other specified parts of digestive tract; Z90.722 Acquired absence of ovaries, bilateral; Z87.442 Personal history of urinary calculi; Z95.9 Presence of cardiac and vascular implant and graft, unspecified; Z86.718 Personal history of other venous thrombosis and embolism
CPT/HCPCS: 36415; 71260; 74177; 80053; 81000; 82150; 83690; 85025; 85610; 85730; 96361; 96374; 96375; 96376

== ENCOUNTER → 2018-10-17 | Outpatient (CLI) | payer MEDICARE ==
[~2018-10-17] MED LIST changes: +ONDA8TAB13 PO; +SUCR1ORA5 PO
[2018-10-17 09:03] LABS: BASOPHILS % (AUTO) 0 % (0-10); EOSINOPHILS % (AUTO) 1 % (0-10); HEMATOCRIT 42 % (35-52); HEMOGLOBIN 13.9 G/DL (11.5-16.0); LYMPHOCYTES # (AUTO) 0.8 X 10^3 (1.0-4.0); LYMPHOCYTES % (AUTO) 17 % (12-44); MEAN CORPUSCULAR HEMOGLOBIN 29 PG (25-34); MEAN CORPUSCULAR HGB CONC 33 G/DL (32-36); MEAN CORPUSCULAR VOLUME 87 FL (80-99); MEAN PLATELET VOLUME 9.7 FL (7.4-10.4); MONOCYTES # (AUTO) 0.5 X 10^3 (0.0-1.0); MONOCYTES % (AUTO) 10 % (0-12); NEUTROPHILS # (AUTO) 3.5 X 10^3 (1.8-7.8); NEUTROPHILS % (AUTO) 73 % (42-75); PLATELET COUNT 193 10^3/uL (130-400); RED CELL DISTRIBUTION WIDTH 14.4 % (10.0-14.5); WHITE BLOOD COUNT 4.8 10^3/uL (4.3-11.0)
[2018-10-17 09:23] LABS: ALANINE AMINOTRANSFERASE 12 U/L (0-55); ALKALINE PHOSPHATASE 59 U/L (40-136); BILIRUBIN,TOTAL 0.8 MG/DL (0.1-1.0); BUN/CREATININE RATIO 10; CALCIUM 9.5 MG/DL (8.5-10.1); CARBON DIOXIDE 27 MMOL/L (21-32); CHLORIDE 107 MMOL/L (98-107); CREATININE SERUM 0.79 MG/DL (0.60-1.30); GFR ESTIMATED > 60; GLUCOSE 106 MG/DL (70-105); POTASSIUM 3.5 MMOL/L (3.6-5.0); SODIUM 143 MMOL/L (135-145); TOTAL PROTEIN 6.4 GM/DL (6.4-8.2)
== END ==
LOC: EDSTATUS 12-28 14:06 → ONC 09:03
PROVIDERS: ATTEND Internal Medicine Hematology & Oncology
DX: E07.9 Disorder of thyroid, unspecified (principal)
CPT/HCPCS: 36415; 80053; 84443; 85025; 99213

== ENCOUNTER 2021-01-21 10:07 | Observation (INO) | payer MEDICARE ==
[2021-01-21] VITALS (11 sets, daily range): BP systolic 73–146; BP diastolic 49–113
[~2021-01-21] VITALS: Ht 167 cm; Wt 60.0 kg
[~2021-01-21 10:07] MED LIST changes: +AMLO-251 PO; -AMLO10TA7 PO; -CLON0.5T13 PO; +CLON0.5T4 PO; +ESCI-2 PO; -ESCI10TA55 PO; +ESCI20TA39 PO; -ESCI20TA45 PO; -LAMO100T PO; +LAMO100T5 PO; -LAMO200T2 PO; +LAMO200T5 PO; -LISI-552 PO; +LISI20TA26 PO; +OMEP40CA6 PO; -PANT40TA3 PO; +PANT40TA52 PO; +QUET100T33 PO; -QUET100T69 PO; +QUET50TA23 PO; -QUET50TA55 PO; -TAMS0.4C98 PO; +TMSL.4C PO
[2021-01-21 10:23] LABS: BASOPHILS % (AUTO) 0 % (0-10); EOSINOPHILS % (AUTO) 0 % (0-10); HEMATOCRIT 46 % (35-52); HEMOGLOBIN 15.9 g/dL (11.5-16.0); LYMPHOCYTES # (AUTO) 1.4 10^3/uL (1.0-4.0); LYMPHOCYTES % (AUTO) 20 % (12-44); MEAN CORPUSCULAR HEMOGLOBIN 30 pg (25-34); MEAN CORPUSCULAR HGB CONC 35 g/dL (32-36); MEAN CORPUSCULAR VOLUME 87 fL (80-99); MEAN PLATELET VOLUME 9.3 fL (9.0-12.2); MONOCYTES # (AUTO) 0.5 10^3/uL (0.0-1.0); MONOCYTES % (AUTO) 7 % (0-12); NEUTROPHILS # (AUTO) 4.8 10^3/uL (1.8-7.8); NEUTROPHILS % (AUTO) 72 % (42-75); PLATELET COUNT 238 10^3/uL (130-400); WHITE BLOOD COUNT 6.8 10^3/uL (4.3-11.0)
--- NOTE | 2021-01-21 10:25 | ED Syncope ---
General Stated Complaint: DIZZINESS, SYNCOPE Source of Information: Patient Exam Limitations: No Limitations History of Present Illness Date Seen by Provider: Jan 21, 2021 Time Seen by Provider: 10:07 Initial Comments Patient presents ER by EMS from home with chief complaint she is not ill get out of bed he anything to eat or drink more than a few crackers this morning. She says she has had a headache frontal bilateral throbbing for the past 2 days. She does not have a history of headaches or migraines. She is not been ill with anything recently that she knows of. No travel or recent sick contacts. States she does not get out of her house much. She follows with [facility] and primary care. She says in the last several months she has been losing weight as evidenced by her close becoming looser. A couple months ago she stopped taking her blood pressure medication because she was having some lightheaded episodes but never followed up with her doctor for this. She does not know what her weight typically is. She is not been having any nausea vomiting diarrhea fevers chills cough or shortness of air. She sat up on the side of the bed this morning because she did not feel well and nearly passed out. Later she tried to stand up to go to the bathroom and says she woke up some unknown time later having passed out and fallen to the floor. She is not having any pain. No history of vaccination for COVID-19 or influenza this year. Allergies and Home Medications Allergies Coded Allergies: Iodinated Contrast- Oral and IV Dye (Verified Allergy, Severe, HIVES, 10/02/17) COUGHING, SNEEZING, HIVES UPON TRACE AMOUNT OF CONTRAST. codeine (Verified Allergy, Intermediate, RASH/SWELLING; PATIENT HAS RECEIVED MORPHINE W/O PROBLEMS, 12/06/16) adhesive tape (Verified Allergy, Unknown, 12/06/16) latex (Verified Allergy, Unknown, 12/06/16) Penicillins (Verified Adverse Reaction, Mild, NAUSEA/VOMITING, 12/07/16) SHE CAN TAKE AUGMENTIN FINE Patient Home Medication List Home Medication List Reviewed: Yes Amlodipine Besylate (Amlodipine Besylate) 10 Mg Tablet, 10 MG PO DAILY, (Reported) Entered as Reported by: OMAR GRACE on 12/06/16 1244 Atorvastatin Calcium (Atorvastatin Calcium) 20 Mg Tablet, 20 MG PO DAILY, (Reported) Entered as Reported by: OMAR GRACE on 12/06/16 1244 Budesonide/Formoterol Fumarate (Symbicort 80-4.5 Mcg Inhaler) 10.2 Gm Hfa.aer.ad, 2 PUFF IH PRN PRN for SHORTNESS OF BREATH, (Reported) Entered as Reported by: OMAR GRACE on 12/06/16 1244 Ciprofloxacin HCl (Cipro) 500 Mg Tablet, 500 MG PO twice a day Prescribed by: DAVID STEINER on 09/15/18 1619 Cyclobenzaprine HCl (Cyclobenzaprine HCl) 5 Mg Tablet, 5 MG PO Q8H PRN for SPASMS Prescribed by: IFEOMA ERICKSON on 07/05/182115 Escitalopram Oxalate (Escitalopram Oxalate) 20 Mg Tablet, 20 MG PO DAILY, (Reported) Entered as Reported by: TYREE MINER on 08/21/17 1346 Gabapentin (Gabapentin) 300 Mg Capsule, 300 MG PO QID, (Reported) Entered as Reported by: TYREE MINER on 08/21/17 1347 Hydrocodone/Acetaminophen (Hydrocodone/Acetaminophen 5 MG/325 MG TAB) 1 Each Tablet, 1 EACH PO Q4H PRN for PAIN-MODERATE Prescribed by: MARTHA LEE on 11/25/17 1419 Hydrocodone/Acetaminophen ([place] 7.5-325 Tablet) 1 Each Tablet, 1 EACH PO Q4H PRN for PAIN-MODERATE Prescribed by: DAVID STEINER on 09/15/18 1629 Lamotrigine (Lamotrigine) 200 Mg Tablet, 200 MG PO DAILY, (Reported) Entered as Reported by: OMAR GRACE on 12/06/16 1244 Levothyroxine Sodium (Levothyroxine Sodium) 50 Mcg Tablet, 50 MCG PO DAILY, (Reported) Entered as Reported by: OMAR GRACE on 12/06/16 1244 Lurasidone HCl (Latuda) 40 Mg Tablet, 40 MG PO DAILY, (Reported) Entered as Reported by: TYREE MINER on 08/21/17 1347 Metronidazole (Flagyl) 500 Mg Tablet, 500 MG PO twice a day Prescribed by: DAVID STEINER on 09/15/18 1619 Ondansetron (Ondansetron Odt) 8 Mg Tab.rapdis, 8 MG PO Q6H Prescribed by: AGAPITO CHONG on 09/29/18 025 Pantoprazole Sodium (Pantoprazole Sodium) 40 Mg Tablet.dr, 40 MG PO DAILY, (Reported) Entered as Reported by: OMAR GRACE on 12/06/16 1244 Prednisone (Prednisone) 20 Mg Tab, 40 MG PO DAILY Prescribed by: IFEOMA ERICKSON on 07/05/182115 Sucralfate (Carafate) 1 Gm/10 Ml Oral.susp, 1 GM PO QID AC AND HS Prescribed by: AGAPITO CHONG on 09/29/18251 Review of Systems Constitutional: No chills, No fever; malaise EENTM: No ear discharge, No ear pain Respiratory: No cough, No short of breath Cardiovascular: No chest pain, No edema Gastrointestinal: No abdominal pain, No constipation, No diarrhea, No nausea, No vomiting Genitourinary: No discharge, No dysuria : No Control/STD Prophylaxis: None Musculoskeletal: No back pain, No joint pain Skin: No pruritus, No rash All Other Systems Reviewed Negative Unless Noted: Yes Past Ujihcxv-Uwrgug-Qrmzcu Hx Patient Social History Tobacco Use?: No Use of E-Cig and/or Vaping dev: No Substance use?: No Alcohol Use?: No Immunizations Up To Date Tetanus Booster (TDap): Less than 5yrs PED Vaccines UTD: No Seasonal Allergies Seasonal Allergies: Yes Past Medical History Surgeries: Yes Abdominal, Adenoidectomy, Appendectomy, Bowel Surgery, Breast, Cardiac, Gallbladder, Hysterectomy, Oophorectomy, Orthopedic, Renal, Tonsillectomy, Tracheostomy, Tubal Ligation Respiratory: Yes (HAS INHALER PRN) Chronic Bronchitis Currently Using CPAP: No Cardiac: Yes Deep Vein Thrombosis, High Cholesterol, Hypertension Neurological: Yes Headaches /Migraines Reproductive Disorders: No Female Reproductive Disorders: Polycystic 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, 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 Sexually Transmitted Disease: No HIV/AIDS: No Genitourinary: Yes Kidney Stones Gastrointestinal: Yes Gastroesophageal Reflux, Chronic Constipation, Diverticulosis, Polyps Musculoskeletal: Yes Arthritis, Fibromyalgia Endocrine: Yes Diabetes, 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) Dysphagia Loss of Vision: Bilateral Hearing Impairment: Denies Cancer: Yes (OROPHARNYX/ESOPHAGEAL CANCER) Esophageal Did You Recieve Any Treatments: Yes What Type of Treatment Did You: Chemotherapy, Radiation, Surgical Intervention Psychosocial: Yes (MULTIPLE PSYCH ADMITS, OVERDOSES AND SUICIDE ATTEMPTS) Sleep Difficulties, Anxiety, Suicide Attempts, Bipolar, Depression Integumentary: No Blood Disorders: No Adverse Reaction/Blood Tranf: No Family Medical History Alzheimer's disease 19 MOTHER Arthritis 19 MOTHER Cardiovascular disease 19 MOTHER Cataracts 19 MOTHER Dementia 19 MOTHER Diabetes mellitus 19 FATHER Headache disorder Hypercholesterolemia 19 FATHER Hypertension 19 FATHER Neoplasm 19 FATHER (PANCREATIC CANCER) Heart Disease, Cancer, Hypertension, Psychiatric Problems Physical Exam Vital Signs Vital Signs - First Documented 01/21/21 10:09 Temp 35.9 Pulse 83 Resp 18 B/P (MAP) 123/73 (90) Pulse Ox 97 Capillary Refill : Height, Weight, BMI Height: 5'7.00" Weight: 190lbs. 0oz. 86.920613dc; 27.9 BMI Method:Stated General Appearance: No Apparent Distress, WD/WN HEENT: PERRL/EOMI, TMs Normal; No Normal ENT Inspection, No Pharynx Normal (Edentulous), No Moist Mucous Membranes Neck: Full Range of Motion, Normal Inspection, Non Tender Cardiovascular: Regular Rate, Rhythm, No Edema, Normal Peripheral Pulses Respiratory: Lungs Clear, Normal Breath Sounds, No Accessory Muscle Use, No Respiratory Distress Gastrointestinal: Normal Bowel Sounds, Non Tender, Soft Neurologic/Psychiatric: Alert, Oriented x3, No Motor/Sensory Deficits Cranial Nerves: Normal Hearing, Normal Speech, PERRL Motor/Sensory: No Motor Deficit, No Sensory Deficit Skin: Normal Color, Warm/Dry Progress/Results/Core Measures Results/Orders Lab Results Laboratory Tests Test 01/21/21 10:13 01/21/21 11:10 Range/Units White Blood Count 6.8 4.3-11.0 10^3/uL Red Blood Count 5.26 H 3.80-5.11 10^6/uL Hemoglobin 15.9 11.5-16.0 g/dL Hematocrit 46 35-52 % Mean Corpuscular Volume 87 80-99 fL Mean Corpuscular Hemoglobin 30 25-34 pg Mean Corpuscular Hemoglobin Concent 35 32-36 g/dL Red Cell Distribution Width 13.2 10.0-14.5 % Platelet Count 238 130-400 10^3/uL Mean Platelet Volume 9.3 9.0-12.2 fL Immature Granulocyte % (Auto) 0 % Neutrophils (%) (Auto) 72 42-75 % Lymphocytes (%) (Auto) 20 12-44 % Monocytes (%) (Auto) 7 0-12 % Eosinophils (%) (Auto) 0 0-10 % Basophils (%) (Auto) 0 0-10 % Neutrophils # (Auto) 4.8 1.8-7.8 10^3/uL Lymphocytes # (Auto) 1.4 1.0-4.0 10^3/uL Monocytes # (Auto) 0.5 0.0-1.0 10^3/uL Eosinophils # (Auto) 0.0 0.0-0.3 10^3/uL Basophils # (Auto) 0.0 0.0-0.1 10^3/uL Immature Granulocyte # (Auto) 0.0 0.0-0.1 10^3/uL Sodium Level 140 135-145 MMOL/L Potassium Level 2.9 L 3.6-5.0 MMOL/L Chloride Level 94 L 98-107 MMOL/L Carbon Dioxide Level 29 21-32 MMOL/L Anion Gap 17 H 5-14 MMOL/L Blood Urea Nitrogen 17 7-18 MG/DL Creatinine 1.10 0.60-1.30 MG/DL Estimat Glomerular Filtration Rate 50 BUN/Creatinine Ratio 15 Glucose Level 123 H 70-105 MG/DL Calcium Level 9.7 8.5-10.1 MG/DL Corrected Calcium 9.8 8.5-10.1 MG/DL Total Bilirubin 1.4 H 0.1-1.0 MG/DL Aspartate Amino Transf (AST/SGOT) 15 5-34 U/L Alanine Aminotransferase (ALT/SGPT) 6 0-55 U/L Alkaline Phosphatase 59 40-136 U/L Troponin I < 0.028 <0.028 NG/ML C-Reactive Protein High Sensitivity 0.59 H 0.00-0.50 MG/DL Total Protein 6.4 6.4-8.2 GM/DL Albumin 3.9 3.2-4.5 GM/DL Urine Color YELLOW Urine Clarity CLEAR Urine pH 5.5 5-9 Urine Specific [place] >=1.030 1.016-1.022 Urine Protein 2+ H NEGATIVE Urine Glucose (UA) NEGATIVE NEGATIVE Urine Ketones TRACE H NEGATIVE Urine Nitrite POSITIVE H NEGATIVE Urine Bilirubin 2+ H NEGATIVE Urine Urobilinogen 1.0 < = 1.0 MG/DL Urine Leukocyte Esterase NEGATIVE NEGATIVE Urine RBC (Auto) 1+ H NEGATIVE Urine RBC 2-5 H /HPF Urine WBC 2-5 /HPF Urine Squamous Epithelial Cells 10-25 H /HPF Urine Crystals NONE /LPF Urine Bacteria MODERATE H /HPF Urine Casts PRESENT /LPF Urine Hyaline Casts >50 H /LPF Urine Granular Casts RARE /LPF Urine Mucus SMALL H /LPF Urine Culture Indicated YES My Orders Orders - ROSELYN IBARRA Ed Iv/Invasive Line Start (01/21/21 10:16) Lactated Ringers (Lr 1000 Ml Iv Solution (01/21/21 10:30) Cbc With Automated Diff (01/21/21 10:16) Comprehensive Metabolic Panel (01/21/21 10:16) Hs C Reactive Protein (01/21/21 10:16) Urinalysis (01/21/21 10:16) Orthostatic Vital Signs (Adult (01/21/21 10:16) Continuous Ekg Monitoring (01/21/21 10:16) Ekg Tracing (01/21/21 10:16) Troponin I (01/21/21 10:16) Chest 1 View, Ap/Pa Only (01/21/21 10:19) Ct Head/Cervical Spine Wo (01/21/21 10:35) Potassium Cl 10meq/50ml Ivpb (Kcl 10 Meq (01/21/21 11:00) Ed Iv/Invasive Line Start (01/21/21 10:59) Ns Iv 1000 Ml (Sodium Chloride 0.9%) (01/21/21 11:00) Urine Culture (01/21/21 11:10) Acetaminophen Tablet (Tylenol Tablet) (01/21/21 12:30) Meclizine Tablet (Antivert Tablet) (01/21/21 13:00) Rocephin 1gm/50 Ml Iv (1xdose) (01/21/21 13:15) Medications Given in ED Current Medications Medications Dose Ordered Sig/Keven Route Start Time Stop Time Status Last Admin Dose Admin Acetaminophen 1,000 mg ONCE ONCE PO 01/21/21 12:30 01/21/21 12:31 DC 01/21/21 12:34 1,000 MG Lactated Ringer's 1,000 ml @ 0 mls/hr Q0M ONCE IV 01/21/21 10:30 01/21/21 10:31 DC 01/21/21 10:33 1,000 MLS/HR Meclizine HCl 25 mg ONCE ONCE PO 01/21/21 13:00 01/21/21 13:01 DC 01/21/21 13:00 25 MG Potassium Chloride 50 ml @ 50 mls/hr ONCE ONCE IV 01/21/21 11:00 01/21/21 11:59 DC 01/21/21 11:39 50 MLS/HR Vital Signs/I&O 01/21/21 01/21/21 10:09 10:16 Temp 35.9 Pulse 83 75 85 113 Resp 18 B/P (MAP) 123/73 (90) 135/74 (94) 98/79 (85) 73/54 (60) Pulse Ox 97 Progress Progress Note : Time: 10:22 Progress Note Patient has significant symptomatic orthostatic hypotension with her blood pressure dropping from 1 teens to 73/50 on standing. We will start with a liter of fluids get a CT of her head to rule out a bleed or tumor. Chest x-ray and labs for syncope work-up. EKG. Initial ECG Impression Date: Jan 21, 2021 Initial ECG Impression Time: 10:25 Initial ECG Rate: 70 Initial ECG Rhythm: Normal Sinus Initial ECG Intervals: QT (475) Initial ECG Impression: Normal, Nonspecific Changes Initial ECG Comparisson: Unchanged Comment Normal sinus rhythm without clinically relevant ST elevation or depression. 1- 1.[address] depression in the anterior lateral leads V3, V4, V5 and V6. To a lesser extent these changes were seen on previous EKGs. Diagnostic Imaging Diagonstic Imaging: Xray Plain Films/CT/US/NM/MRI: chest Comments NAME: GURINDER GARCÍA [facility] REC#: [id number] PT STATUS: REG ER : 1960 PHYSICIAN: ROSELYN IBARRA MD ADMIT DATE: 01/21/21/ER Draft Date of Exam:01/21/21 CHEST 1 VIEW, AP/PA ONLY INDICATION: Syncope with weight loss. COMPARISON 02/03/2018. FINDINGS: Portable chest. The lungs show bibasilar atelectasis. There are no infiltrates. No masses are demonstrated. The heart is not enlarged. No evidence of the pulmonary edema. No hilar adenopathy. No pneumothorax or pleural effusion. IMPRESSION: Bibasilar atelectasis otherwise negative portable AP chest. Dictated on workstation # [id number] Dict: 01/21/21 1105 Trans: 01/21/21 1107 CV [id number] Interpreted by: ANGEL GONSALEZ MD Electronically signed by: Reviewed: Reviewed by Me Diagonstic Imaging: CT Plain Films/CT/US/NM/MRI: c-spine, head Comments NAME: GURINDER GARCÍA [facility] REC#: [id number] PT STATUS: REG ER : 1960 PHYSICIAN: ROSELYN IBARRA MD ADMIT DATE: 01/21/21/ER Draft Date of Exam:01/21/21 CT HEAD/CERVICAL SPINE WO EXAMINATION: CT head and CT cervical spine without contrast. TECHNIQUE: Multiple contiguous axial images were obtained through the brain and cervical spine without the use of intravenous contrast. Sagittal and coronal reformations through the cervical spine were then performed. All CT scans use one or more of the following dose optimizing techniques: automated exposure control, MA and/or KvP adjustment based on patient size and exam type or iterative reconstruction. HISTORY: Dizziness, syncope with fall COMPARISON: CT head 02/03/2018 FINDINGS: HEAD: The ventricles and sulci are normal. Stable focus of hypoattenuation within the left frontal lobe, unchanged from 02/03/2018 likely chronic lacunar infarct. No acute intracranial hemorrhage or abnormal extra-axial fluid collections are present. Calcification of the intracranial ICAs. No hyperdense vessel. The calvarium is intact. The mastoid air cells are clear. The visualized paranasal sinuses are clear. The orbits are normal. C-SPINE: Vertebral body height and alignment are preserved. No acute fracture, dislocation, or destructive osseous process. No significant facet hypertrophy. Mild multilevel cervical spine spondylosis. The paraspinous soft tissues are normal. Multiple surgical clips overlying the left neck. The visualized thyroid gland is normal. The visualized lung apices are normal. IMPRESSION: 1. No acute intracranial abnormality. 2. Degenerative changes of the cervical spine without acute osseous abnormality. Dictated on workstation # [id number] Dict: 01/21/21 1103 Trans: 01/21/21 1119 [facility] [id number] Interpreted by: COOPER RICO DO Electronically signed by: Reviewed: Reviewed by Me Departure Communication (Admissions) Time/Spoke to Admitting Phy: 13:[address] Baird she agrees to observe the patient on cardiac stepdown. She agrees with Rocephin IV fluids Impression Primary Impression: UTI (urinary tract infection) Qualified Codes: N30.01 - Acute cystitis with hematuria Additional Impressions: Vertigo Sepsis Qualified Codes: A41.9 - Sepsis, unspecified organism Orthostatic hypotension Disposition: ADMITTED INPATIENT Condition: Stable Admissions Decision to Admit Reason: Admit from ER (General) Decision to Admit/Date: Jan 21, 2021 Time/Decision to Admit Time: 13:15 Departure-Patient Inst. Referrals: [facility] (PCP) Primary Care Physician OMAR BRAVO APRN (Family) Primary Care Physician ROSELYN IBARRA Jan 21, 2021 10:25
[2021-01-21] MEDS ORDERED: LACTATED RINGERS 1,000 ML IV ONE (10:30)
[2021-01-21 10:32] LABS: ALBUMIN 3.9 GM/DL (3.2-4.5); CHLORIDE 94 MMOL/L (98-107); POTASSIUM 2.9 MMOL/L (3.6-5.0); SODIUM 140 MMOL/L (135-145)
[2021-01-21 10:33] LABS: CALCIUM 9.7 MG/DL (8.5-10.1)
[2021-01-21 10:34] LABS: GLUCOSE 123 MG/DL (70-105); TOTAL PROTEIN 6.4 GM/DL (6.4-8.2)
[2021-01-21 10:35] LABS: CARBON DIOXIDE 29 MMOL/L (21-32)
[2021-01-21 10:36] LABS: BILIRUBIN,TOTAL 1.4 MG/DL (0.1-1.0)
[2021-01-21 10:38] LABS: ALKALINE PHOSPHATASE 59 U/L (40-136); GFR ESTIMATED 50
[2021-01-21 10:39] LABS: BUN/CREATININE RATIO 15
[2021-01-21 10:41] LABS: ALANINE AMINOTRANSFERASE 6 U/L (0-55)
[2021-01-21] MEDS ORDERED: NS IV 1000 ML 1,000 ML IV SCH (11:00)
[2021-01-21] MEDS ORDERED: POTASSIUM CL 10MEQ/50ML IVPB 50 ML IV ONE (11:00)
--- NOTE | 2021-01-21 11:08 | Diagnostic Imaging Report ---
INDICATION: Syncope with weight loss. COMPARISON 02/03/2018. FINDINGS: Portable chest. The lungs show bibasilar atelectasis. There are no infiltrates. No masses are demonstrated. The heart is not enlarged. No evidence of the pulmonary edema. No hilar adenopathy. No pneumothorax or pleural effusion. IMPRESSION: Bibasilar atelectasis otherwise negative portable AP chest. Dictated by: Dictated on workstation # [id number]
[2021-01-21 11:18] LABS: CLARITY,URINE CLEAR; COLOR,URINE YELLOW; GLUCOSE, URINE (UA) NEGATIVE (NEGATIVE); KETONES,URINE TRACE (NEGATIVE); LEUKOCYTE ESTERASE ,URINE NEGATIVE (NEGATIVE); NITRITE,URINE POSITIVE (NEGATIVE); PH,URINE 5.5 (5-9); PROTEIN,URINE 2+ (NEGATIVE)
--- NOTE | 2021-01-21 11:19 | Diagnostic Imaging Report ---
EXAMINATION: CT head and CT cervical spine without contrast. TECHNIQUE: Multiple contiguous axial images were obtained through the brain and cervical spine without the use of intravenous contrast. Sagittal and coronal reformations through the cervical spine were then performed. All CT scans use one or more of the following dose optimizing techniques: automated exposure control, MA and/or KvP adjustment based on patient size and exam type or iterative reconstruction. HISTORY: Dizziness, syncope with fall COMPARISON: CT head 02/03/2018 FINDINGS: HEAD: The ventricles and sulci are normal. Stable focus of hypoattenuation within the left frontal lobe, unchanged from 02/03/2018 likely chronic lacunar infarct. No acute intracranial hemorrhage or abnormal extra-axial fluid collections are present. Calcification of the intracranial ICAs. No hyperdense vessel. The calvarium is intact. The mastoid air cells are clear. The visualized paranasal sinuses are clear. The orbits are normal. C-SPINE: Vertebral body height and alignment are preserved. No acute fracture, dislocation, or destructive osseous process. No significant facet hypertrophy. Mild multilevel cervical spine spondylosis. The paraspinous soft tissues are normal. Multiple surgical clips overlying the left neck. The visualized thyroid gland is normal. The visualized lung apices are normal. IMPRESSION: 1. No acute intracranial abnormality. 2. Degenerative changes of the cervical spine without acute osseous abnormality. Dictated by: Dictated on workstation # [id number]
[2021-01-21 11:44] LABS: BACTERIA,URINE MODERATE /HPF
[2021-01-21 11:45] LABS: HYALINE CASTS, URINE >50 /LPF
[2021-01-21 11:49] LABS: GRANULAR CASTS,URINE RARE /LPF
[2021-01-21 11:50] LABS: BILIRUBIN,URINE 2+ (NEGATIVE)
[2021-01-21] MEDS ORDERED: ACETAMINOPHEN 500 MG TAB (TYLENOL) PO ONE (12:30)
[2021-01-21] MEDS ORDERED: MECLIZINE 25 MG (ANTIVERT) TAB PO ONE (13:00)
[2021-01-21] MEDS ORDERED: cefTRIAXone 1 GM PRE-MIX 50 ML IV ONE (13:15)
[2021-01-21 13:33] LABS: PROTHROMBIN TIME PATIENT 13.7 SEC (12.2-14.7)
--- NOTE | 2021-01-21 14:24 | History & Physical-Hospitalist ---
BERNICE BARRIOS 01/21/21 1424: History of Present Illness HPI/Chief Complaint CC: Dizziness and Syncope HPI: Ms Mares is a 60 y/o female with a PMHx of HTN, bipolar disorder, esophageal cancer, and diabetes who arrived to the ED via EMS this morning. She reports having a 2 day history of headache that has kept her in bed. She says she has not had much to eat or drink over the last 2 days. She said that last night she got up to go to the bathroom and experienced a syncopal episode. She says she woke up on the bathroom floor, tried to stand, and experienced a second syncopal episode. She was then able to call EMS and make it to the hospital. She endorses associated dizziness, lightheadedness,and headache. She says that laying still helped her dizziness and standing up caused her to become dizzy and pass out. She denied associated nausea and vomiting but said she had a prodrome of feeling hot, sweaty, and clammy before she lost consciousness. She reports still still has a headache in the hospital but it is only a 1/10 in severity. She lives alone in her own home. Source: patient, old records Exam Limitations: no limitations Date Seen 01/21/21 Time Seen by a Provider: 14:00 Attending Physician Soni Quinonez DO [facility] Referring Physician Date of Admission Home Medications & Allergies Home Medications Reviewed patient Home Medication Reconciliation performed by pharmacy medication reconciliations architectural technician and/or nursing. Patients Allergies have been reviewed. Allergies Allergies Coded Allergies Iodinated Contrast Media (Verified Allergy, Severe, HIVES, 10/02/17) COUGHING, SNEEZING, HIVES UPON TRACE AMOUNT OF CONTRAST. codeine (Verified Allergy, Intermediate, RASH/SWELLING; PATIENT HAS RECEIVED MORPHINE W/O PROBLEMS, 12/06/16) adhesive tape (Verified Allergy, Unknown, 12/06/16) latex (Verified Allergy, Unknown, 12/06/16) Penicillins (Verified Adverse Reaction, Mild, NAUSEA/VOMITING, 12/07/16) SHE CAN TAKE AUGMENTIN FINE Past Gogeqge-Ztmtnj-Ifwxox Hx Patient Social History Tobacco Use?: Yes Tobacco type used: Cigarettes Smoking Status: Former Smoker (1 PPD for 10 years. Quit 40 years ago.) Use of E-Cig and/or Vaping dev: No Substance use?: No Alcohol Use?: No Pt feels they are or have been: No Immunizations Up To Date Date of Influenza Vaccine: July 25, 2016 Hepatitis A: Yes Hepatitis B: Yes PED Vaccines UTD: No Date of Pneumonia Vaccine: July 25, 2016 Seasonal Allergies Seasonal Allergies: Yes Current Status Advance Directives: No Communicates: Verbally Primary Language: Colombian Preferred Spoken Language: Colombian Is interpretation needed?: No Sensory deficits: Vision impairment Implanted or Applied Medical D: None Past Medical History Surgeries: Abdominal, Adenoidectomy, Appendectomy, Bowel Surgery, Breast, Cardiac, Gallbladder, Hysterectomy, Oophorectomy, Orthopedic, Renal, Tonsillectomy, Tracheostomy, Tubal Ligation Chronic Bronchitis Currently Using CPAP: No Deep Vein Thrombosis, High Cholesterol, Hypertension Headaches /Migraines TOUR ESCORT History: Hysterectomy, Menopausal Sexually Transmitted Disease: No HIV/AIDS: No Kidney Stones Gastroesophageal Reflux, Chronic Constipation, Diverticulosis, Polyps Arthritis, Fibromyalgia Diabetes, Non-Insulin dep Dysphagia Loss of Vision: Bilateral Hearing Impairment: Denies Esophageal Did You Recieve Any Treatments: Yes What Type of Treatment Did You: Chemotherapy, Radiation, Surgical Intervention Sleep Difficulties, Anxiety, Suicide Attempts, Bipolar, Depression Blood Disorders: No Adverse Reaction/Blood Tranf: No Family Medical History Alzheimer's disease 19 MOTHER Arthritis 19 MOTHER Cardiovascular disease 19 MOTHER Cataracts 19 MOTHER Dementia 19 MOTHER Diabetes mellitus 19 FATHER Headache disorder Hypercholesterolemia 19 FATHER Hypertension 19 FATHER Neoplasm 19 FATHER (PANCREATIC CANCER) Heart Disease, Cancer, Hypertension, Psychiatric Problems Review of Systems Constitutional: No chills; diaphoresis, dizziness; No fever; weakness Respiratory: No cough, No dyspnea on exertion Cardiovascular: No chest pain, No palpitations Gastrointestinal: No abdominal pain, No constipation, No diarrhea, No nausea, No vomiting Musculoskeletal: joint pain (R shoulder s/p fall), muscle pain (R shoulder s/p fall) Psychiatric/Neurological: Headache Physical Exam Physical Exam Vital Signs Vital Signs - First Documented 01/21/21 01/21/21 10:09 14:39 Temp 35.9 Pulse 83 Resp 18 B/P (MAP) 123/73 (90) Pulse Ox 97 O2 Delivery Room Air Capillary Refill : Less Than 3 Seconds Height, Weight, BMI Height: 5'7.00" Weight: 190lbs. 0oz. 86.603000oy; 22.00 BMI Method:Stated General Appearance: No Apparent Distress (Patient reports being dizzy), Thin HEENT: PERRL/EOMI, Moist Mucous Membranes; No Scleral Icterus (L), No Scleral Icterus (R) Neck: Normal Inspection, Non Tender; No Lymphadenopathy (L), No Lymphadenopathy (R) Respiratory: Chest Non Tender, Lungs Clear (Clear in upper and lower lobes bilaterally), Normal Breath Sounds, No Accessory Muscle Use, No Respiratory Distress; No Wheezing Cardiovascular: Regular Rate, Rhythm, No Edema, Normal Peripheral Pulses, Systolic Murmur (Murmur at RUSB, most likely aortic stenosis) Gastrointestinal: Normal Bowel Sounds, Non Tender, Soft Extremity: Normal Capillary Refill, Normal Inspection, Non Tender, No Calf Tenderness, No Pedal Edema Neurologic/Psychiatric: Alert, Oriented x3, No Motor/Sensory Deficits, Normal 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 Assessment/Plan Assessment and Plan Assessment Orthostatic hypotension - 137/74 supine & 73/54 standing Acute malnourishment - Patient reports eating and drinking very little the last 2 days 2/2 headache - Most likely working in conjunction with orthostatic hypotension Neurocardiogenic syncope - Patient reported prodrome before LOC - Unlikely (but possible) d/t the fact that the patient does not have a history of this type of syncope Hypokalemia - 2.9 in ED - Possibly 2/2 acute malnourishment h/o cardiac issues?? - Last seen Dr. Redman "10 years ago." Patient reports no issues at that time - Murmur heard over RUSB, most likely HTN - Patient reports stopping BP meds "a couple months ago" due to transient hypotension Insomnia - Patient takes trazodone and lurasidone at bedtime to help Diabetes Plan IV fluid resuscitation to help prevent syncopal episodes Potassium replacement Ensure proper diet Cardiology consult to help determine etiology of syncope Restart trazodone and lurasidone from home meds to help with insomnia SONI QUINONEZ DO 01/22/21 0548: History of Present Illness HPI/Chief Complaint Chief complaint: Dizziness with syncope and UTI History present illness: This is a 60-year-old white female clinic patient of [facility] who has a past medical history of mental illness and esophageal cancer who presented to the ER with syncopal episode. She was found to be profoundly dehydrated with a UTI. Source: patient Exam Limitations: no limitations Past Pbnbimj-Ifhdhx-Lflfhz Hx Patient Social History Marrital Status: single Employed/Student: unemployed Tobacco Use?: Yes Tobacco type used: Cigarettes Smoking Status: Former Smoker (1 PPD for 10 years. Quit 40 years ago.) Past Medical History Diabetes, Non-Insulin dep Family Medical History Alzheimer's disease 19 MOTHER Arthritis 19 MOTHER Cardiovascular disease 19 MOTHER Cataracts 19 MOTHER Dementia 19 MOTHER Diabetes mellitus 19 FATHER Headache disorder Hypercholesterolemia 19 FATHER Hypertension 19 FATHER Neoplasm 19 FATHER (PANCREATIC CANCER) Review of Systems Constitutional: see HPI, dizziness EENTM: no symptoms reported Respiratory: no symptoms reported Cardiovascular: no symptoms reported Gastrointestinal: no symptoms reported Musculoskeletal: no symptoms reported Skin: no symptoms reported Psychiatric/Neurological: No Symptoms Reported All Other Systems Reviewed Negative Unless Noted: Yes Physical Exam Physical Exam General Appearance: No Apparent Distress, Chronically ill Eyes: Right Eye Normal Inspection, Right Eye PERRL HEENT: PERRL/EOMI, Normal ENT Inspection, Pharynx Normal, Moist Mucous Membranes Neck: Full Range of Motion, Normal Inspection, Non Tender Respiratory: Chest Non Tender, Lungs Clear, Normal Breath Sounds, No Accessory Muscle Use, No Respiratory Distress Cardiovascular: Regular Rate, Rhythm, No Edema, No Gallop, No JVD, No Murmur, Normal Peripheral Pulses Gastrointestinal: Normal Bowel Sounds, No Organomegaly, No Pulsatile Mass, Non Tender, Soft Back: Normal Inspection, No CVA Tenderness, No Vertebral Tenderness Extremity: Normal Capillary Refill, Normal Inspection, Normal Range of Motion, Non Tender, No Calf Tenderness, No Pedal Edema Neurologic/Psychiatric: Alert, Oriented x3, No Motor/Sensory Deficits, Normal Mood/Affect Skin: Normal Color, Warm/Dry Lymphatic: No Adenopathy Assessment/Plan Admission Diagnosis Assessment: Syncope UTI Profound dehydration Hypokalemia Diabetes Hypertension Vertigo Esophageal cancer history Plan: Supplement potassium UTI treatment Admission Status: Observation Supervisory-Addendum Brief Verification & Attestation Participated in pt care: history, MDM, physical Personally performed: exam, history, MDM, supervision of care Care discussed with: Medical Student Procedures: n/a Results interpretation: Verified all documentation Verification and Attestation of Medical Student E/M Service A medical student performed and documented this service in my presence. I reviewed and verified all information documented by the medical student and made modifications to such information, when appropriate. I personally performed the physical exam and medical decision making. Soni Quinonez, Jan 22, 2021,05:48 BERNICE BARRIOS Jan 21, 2021 14:24 SONI QUINONEZ DO Jan 22, 2021 05:48
[2021-01-21] MEDS ORDERED: CALCIUM CARBONATE 500 MG (TUMS) TAB.CHEW PO PRN (14:45)
[2021-01-21] MEDS ORDERED: ONDANSETRON 4 MG (ZOFRAN) ORAL DISSOLVE TAB PO PRN (14:45)
[2021-01-21] MEDS ORDERED: diphenhydrAMINE 25 MG TAB (BENADRYL) PO PRN (14:45)
[2021-01-21] MEDS ORDERED: LOPERAMIDE 2 MG (IMODIUM) TABLET PO PRN (14:45)
[2021-01-21] MEDS ORDERED: ONDANSETRON 4 MG/2 ML (SDV) Z0FRAN IVP PRN (14:45)
[2021-01-21] MEDS ORDERED: DOCUSATE SODIUM 100 MG (COLACE) CAP PO PRN (14:45)
[2021-01-21] MEDS ORDERED: MELATONIN 3 MG TABLET PO PRN (14:45)
[2021-01-21] MEDS ORDERED: ACETAMINOPHEN 500 MG TAB (TYLENOL) PO PRN (14:45)
[2021-01-21] MEDS: cefTRIAXone 1 GM PRE-MIX 50 ML IV SCH (15:28)
[2021-01-21] MEDS: ENOXAPARIN 40 MG/0.4 ML (LOVENOX) SYR SC SCH (15:28)
[2021-01-21] MEDS: ALPRAZolam 0.25 MG (XANAX) TAB PO PRN ×2 (15:28→20:03)
[2021-01-21] MEDS: NS IV 1000 ML 1,000 ML IV SCH ×2 (15:32→22:16)
[2021-01-21] MEDS ORDERED: LATUDA PO (15:56)
[2021-01-21] MEDS ORDERED: TRAZ-227 PO (15:56)
[2021-01-21] MEDS ORDERED: morphine INJ 10 MG/ML 1ML (SYR OR VIAL) IVP PRN (16:00)
[2021-01-21] MEDS ORDERED: morphine INJ 4 MG/ML 1 ML (VIAL/SYRINGE) IV PRN (16:15)
[2021-01-21] MEDS: polyethylene glycoL POWDER 17 GM (MIRALAX) PACK PO SCH (20:04)
[2021-01-21] MEDS: RT-ALBUTEROL SULF 2.5 MG/3 ML PRE-MIX VIAL INH SCH (21:30)
[2021-01-22] VITALS: BP 127/64
[2021-01-22] MEDS: RT-ALBUTEROL SULF 2.5 MG/3 ML PRE-MIX VIAL INH SCH ×4 (03:14→20:46)
[2021-01-22 04:00] VITALS: BP 119/45
[2021-01-22] MEDS: ALPRAZolam 0.25 MG (XANAX) TAB PO PRN ×3 (04:05→20:16)
[2021-01-22] MEDS: NS IV 1000 ML 1,000 ML IV SCH ×5 (04:06→23:20)
[2021-01-22 04:42] LABS: BASOPHILS % (AUTO) 0 % (0-10); EOSINOPHILS % (AUTO) 1 % (0-10); HEMATOCRIT 34 % (35-52); HEMOGLOBIN 11.7 g/dL (11.5-16.0); LYMPHOCYTES # (AUTO) 1.4 10^3/uL (1.0-4.0); LYMPHOCYTES % (AUTO) 38 % (12-44); MEAN CORPUSCULAR HGB CONC 34 g/dL (32-36); MEAN CORPUSCULAR VOLUME 90 fL (80-99); MEAN PLATELET VOLUME 10.1 fL (9.0-12.2); MONOCYTES # (AUTO) 0.3 10^3/uL (0.0-1.0); MONOCYTES % (AUTO) 8 % (0-12); NEUTROPHILS % (AUTO) 54 % (42-75); PLATELET COUNT 151 10^3/uL (130-400); WHITE BLOOD COUNT 3.7 10^3/uL (4.3-11.0)
[2021-01-22 04:47] LABS: MEAN CORPUSCULAR HEMOGLOBIN 30 pg (25-34)
[2021-01-22 05:09] LABS: ALANINE AMINOTRANSFERASE < 6 U/L (0-55); ALKALINE PHOSPHATASE 40 U/L (40-136); BILIRUBIN,TOTAL 0.4 MG/DL (0.1-1.0); BUN/CREATININE RATIO 17; CALCIUM 8.4 MG/DL (8.5-10.1); CARBON DIOXIDE 22 MMOL/L (21-32); CHLORIDE 104 MMOL/L (98-107); CREATININE SERUM 0.77 MG/DL (0.60-1.30); GFR ESTIMATED 76; GLUCOSE 107 MG/DL (70-105); POTASSIUM 2.7 MMOL/L (3.6-5.0); SODIUM 141 MMOL/L (135-145); TOTAL PROTEIN 5.2 GM/DL (6.4-8.2)
[2021-01-22] MEDS: POTASSIUM CL 10MEQ/50ML IVPB 50 ML IV SCH ×6 (06:20→12:58)
[2021-01-22] MEDS: polyethylene glycoL POWDER 17 GM (MIRALAX) PACK PO SCH ×2 (07:27→20:13)
[2021-01-22 07:28] VITALS: BP 127/71
[2021-01-22] MEDS ORDERED: HYDROcodone/APAP 5 MG/325 MG (LORTAB) TAB PO PRN (08:30)
[2021-01-22] MEDS ORDERED: KCL 20 MEQ TAB (K-DUR) PO ONE (10:30)
--- NOTE | 2021-01-22 12:41 | Progress Note - Hospitalist ---
BERNICE BARRIOS 01/22/21 1241: Subjective HPI/CC On Admission Date Seen by Provider: Jan 22, 2021 Time Seen by Provider: 07:35 Chief complaint: Dizziness with syncope and UTI Subjective/Events-last exam Ms. Mares says that she has improved quite a bit from yesterday to today. She says that the fluids have felt like they really helped. She was able to eat last night. She reports that she still has some orthostatic hypotension when she goes from supine to seated. She does say that she has been able to walk around the floor. She reports slight pain with urination. Review of Systems General: No Chills; Fatigue, Other (Dizziness and lightheadedness) HEENT: No Head Aches Pulmonary: No Dyspnea, No Cough Cardiovascular: No: Chest Pain, Palpitations Gastrointestinal: No: Nausea, Vomiting, Abdominal Pain, Melena, Hematochezia Genitourinary: Dysuria; No Frequency Neurological: No: Weakness, Confusion Focused Exam Lactate Level 01/21/21 13:35: Lactic Acid Level 1.20 Capillary Refill: Less Than 3 Seconds Peripheral Pulses: 2+ Radial Pulses (R), 2+ Radial Pulses (L) Objective Exam Vital Signs Vital Signs Date Time Temp Pulse Resp B/P (MAP) Pulse Ox O2 Delivery O2 Flow Rate FiO2 01/22/21 13:00 92 01/22/21 12:00 Room Air 01/22/21 09:45 95 01/22/21 07:31 36.2 01/22/21 07:28 28 127/71 (89) Capillary Refill : Less Than 3 Seconds General Appearance: No Apparent Distress, Thin HEENT: PERRL/EOMI, Normal ENT Inspection, Moist Mucous Membranes, Pale Conjunctivae (L), Pale Conjunctivae (R); No Scleral Icterus (L), No Scleral Icterus (R) Neck: Normal Inspection, Non Tender Respiratory: Chest Non Tender, Lungs Clear, Normal Breath Sounds, No Accessory Muscle Use, No Respiratory Distress Cardiovascular: Regular Rate, Rhythm, Normal Peripheral Pulses, Systolic Murmur (RUSB and LUSB, most likely ) Gastrointestinal: Normal Bowel Sounds, Non Tender, Soft Extremity: Normal Capillary Refill, Normal Inspection, Non Tender, No Calf Tenderness, No Pedal Edema Neurologic/Psychiatric: Alert, Oriented x3, No Motor/Sensory Deficits, Normal 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 Assessment/Plan Assessment and Plan Assess & Plan/Chief Complaint Assessment Orthostatic hypotension - 137/74 supine & 73/54 standing Acute malnourishment - Patient reports eating and drinking very little the last 2 days 2/2 headache - Most likely working in conjunction with orthostatic hypotension Dilutional anemia - Hgb decreased from 15.9 to 11.7 most likely 2/2 fluid resuscitation UTI - Patent reports minor dysuria Neurocardiogenic syncope - Patient reported prodrome before LOC - Unlikely (but possible) d/t the fact that the patient does not have a history of this type of syncope Hypokalemia - 2.7 this morning - Possibly 2/2 acute malnourishment h/o cardiac issues?? - Last seen Dr. Redman "10 years ago." Patient reports no issues at that time - Murmur heard over RUSB, most likely HTN - Patient reports stopping BP meds "a couple months ago" due to transient hypotension Insomnia - Patient takes trazodone and lurasidone at bedtime to help Diabetes Plan IV fluid resuscitation to help prevent syncopal episodes Potassium replacement Ensure proper diet Cardiology consult to help determine etiology of syncope Restart trazodone and lurasidone from home meds to help with insomnia Move to 4th, possible d/c tomorrow SONI QUINONEZ DO 01/22/212057: Subjective Subjective/Events-last exam Patient is improved Potassium low Still dizzy NO pain Review of Systems General: Fatigue Objective Exam General Appearance: No Apparent Distress, WD/WN, Chronically ill Respiratory: Lungs Clear, Normal Breath Sounds Cardiovascular: Normal Peripheral Pulses, Systolic Murmur (RUSB and LUSB, most likely ) Neurologic/Psychiatric: Alert, Oriented x3, No Motor/Sensory Deficits, Normal Mood/Affect Assessment/Plan Assessment and Plan Assess & Plan/Chief Complaint Orthostasis Cardiology consult Potassium Supervisory-Addendum Brief Verification & Attestation Participated in pt care: history, MDM, physical Personally performed: exam, history, MDM, supervision of care Care discussed with: Medical Student Procedures: n/a Results interpretation: Verified all documentation Verification and Attestation of Medical Student E/M Service A medical student performed and documented this service in my presence. I reviewed and verified all information documented by the medical student and made modifications to such information, when appropriate. I personally performed the physical exam and medical decision making. Soni Quinonez, Jan 22, 2021,20:58 BERNICE BARRIOS Jan 22, 2021 12:41 SONI QUINONEZ DO Jan 22, 2021 20:58
[2021-01-22] MEDS: ENOXAPARIN 40 MG/0.4 ML (LOVENOX) SYR SC SCH (12:58)
[2021-01-22] MEDS: cefTRIAXone 1 GM PRE-MIX 50 ML IV SCH (14:30)
--- NOTE | 2021-01-22 15:54 | Consultation-Cardiology ---
HPI-Cardiology Cardiology Consultation: Date of Consultation 01/22/2021 Date of Admission 01/21/2021 Attending Physician Soni Baird DO Admitting Physician [place] Consulting Physician BETHANIE SCOTT JR, MD HPI: Time Seen by a Provider: 16:46 Chief Complaint: Reason for consultation: Syncope. I had the pleasure of seeing Bethany on the medical/surgical unit at in [place], [place] this afternoon. She has a history of hypertension but recently stopped her antihypertensive medication due to low blood pressures. She states for the past few days she has had no appetite. She is also felt weak. She spent much of the past few days in bed. She was not eating or drin pedro much of anything. Then early in the morning yesterday, she got up out of bed in the middle of the night and had a syncopal episode and fell to the floor. She believes she was not out for long and woke up and got back into bed. Then later in the morning she got out of bed and had another syncopal episode. She was again able to get herself up off the floor but this time called 911 and was taken to the hospital for further evaluation. Because of the syncope, a cardiology consultation was requested. She states that she does get some intermittent lightheaded spells but denies ever having had syncope in the past. She denies chest discomfort, dyspnea, paroxysmal nocturnal dyspnea, vomiting, palpitations, or lower extremity edema. She does not smoke cigarettes. Certain portions of this document may have been dictated utilizing voice recognition technology. Inherent to this technology, typographical and grammatical errors may exist. As much as I am diligent to identify and correct these mistakes, some errors may remain in the document. Review of Systems-Cardiology Review of Systems : No Other comments Review of 10 organ systems is as per the history of present illness, otherwise negative. All Other Systems Reviewed Negative Unless Noted: Yes [id number] Hx Patient Social History Marrital Status: single Employed/Student: unemployed Smoking Status: Former Smoker (1 PPD for 10 years. Quit 40 years ago.) Former smoker/When Quit: Dec 05, 1990 2nd Hand Smoke Exposure: No Have you traveled recently?: No Alcohol Use?: No Pt feels they are or have been: No Tobacco type used: Cigarettes Immunizations Up To Date Tetanus Booster (TDap): Less than 5yrs Date of Pneumonia Vaccine: July 25, 2016 Date of Influenza Vaccine: July 25, 2016 Past Medical History PMH As described under Assessment. Family Medical History Family Medical History: The patient does not know of any family history of premature coronary artery disease in first-degree relatives. Family History: Alzheimer's disease 19 MOTHER Arthritis 19 MOTHER Cardiovascular disease 19 MOTHER Cataracts 19 MOTHER Dementia 19 MOTHER Diabetes mellitus 19 FATHER Headache disorder Hypercholesterolemia 19 FATHER Hypertension 19 FATHER Neoplasm 19 FATHER (PANCREATIC CANCER) Allergies and Home Medications Allergies Coded Allergies: Iodinated Contrast Media (Verified Allergy, Severe, HIVES, 10/02/17) COUGHING, SNEEZING, HIVES UPON TRACE AMOUNT OF CONTRAST. codeine (Verified Allergy, Intermediate, RASH/SWELLING; PATIENT HAS RECEIVED MORPHINE W/O PROBLEMS, 12/06/16) adhesive tape (Verified Allergy, Unknown, 12/06/16) latex (Verified Allergy, Unknown, 12/06/16) Penicillins (Verified Adverse Reaction, Mild, NAUSEA/VOMITING, 12/07/16) SHE CAN TAKE AUGMENTIN FINE Patient Home Medication List Home Medication List Reviewed: Yes Trazodone HCl (Trazodone HCl) 100 Mg Tablet, 100 MG PO HS, (Reported) Entered as Reported by: BLESSING MAZA on 01/21/211555 Last Action: Reviewed [Latuda ] 60 TAB, 60 MG PO HS, (Reported) Entered as Reported by: BLESSING MAZA on 01/21/211555 Last Action: Reviewed Discontinued Medications Amlodipine Besylate (Amlodipine Besylate) 10 Mg Tablet, 10 MG PO DAILY, (Reported) Discontinued Reason: No Longer Taking Entered as Reported by: OMAR GRACE on 12/06/161243 Last Action: Discontinued Atorvastatin Calcium (Atorvastatin Calcium) 20 Mg Tablet, 20 MG PO DAILY, (Reported) Discontinued Reason: No Longer Taking Entered as Reported by: OMAR GRACE on 12/06/161243 Last Action: Discontinued Budesonide/Formoterol Fumarate (Symbicort 80-4.5 Mcg Inhaler) 10.2 Gm Hfa.aer.ad, 2 PUFF IH PRN PRN for SHORTNESS OF BREATH, (Reported) Discontinued Reason: No Longer Taking Entered as Reported by: OMAR GRACE on 10/3/17 1244 Last Action: Discontinued Ciprofloxacin HCl (Cipro) 500 Mg Tablet, 500 MG PO twice a day Discontinued Reason: No Longer Taking Prescribed by: DAVID STEINER on 09/15/18 1619 Last Action: Discontinued Cyclobenzaprine HCl (Cyclobenzaprine HCl) 5 Mg Tablet, 5 MG PO Q8H PRN for SPASMS Discontinued Reason: No Longer Taking Prescribed by: IFEOMA ERICKSON on 07/05/182115 Last Action: Discontinued Escitalopram Oxalate (Escitalopram Oxalate) 20 Mg Tablet, 20 MG PO DAILY, (Reported) Discontinued Reason: No Longer Taking Entered as Reported by: TYREE MINER on 08/21/17 1346 Last Action: Discontinued Gabapentin (Gabapentin) 300 Mg Capsule, 300 MG PO QID, (Reported) Discontinued Reason: No Longer Taking Entered as Reported by: TYREE MINER on 08/21/17 134 Last Action: Discontinued Hydrocodone/Acetaminophen (Hydrocodone/Acetaminophen 5 MG/325 MG TAB) 1 Each Tablet, 1 EACH PO Q4H PRN for PAIN-MODERATE Discontinued Reason: No Longer Taking Prescribed by: MARTHA LEE on 11/25/17 1419 Last Action: Discontinued Hydrocodone/Acetaminophen ([place] 7.5-325 Tablet) 1 Each Tablet, 1 EACH PO Q4H PRN for PAIN-MODERATE Discontinued Reason: No Longer Taking Prescribed by: DAVID STEINER on 09/15/18 1629 Last Action: Discontinued Lamotrigine (Lamotrigine) 200 Mg Tablet, 200 MG PO DAILY, (Reported) Discontinued Reason: No Longer Taking Entered as Reported by: OMAR GRACE on 12/06/16 1244 Last Action: Discontinued Levothyroxine Sodium (Levothyroxine Sodium) 50 Mcg Tablet, 50 MCG PO DAILY, (Reported) Discontinued Reason: No Longer Taking Entered as Reported by: OMAR GRACE on 12/06/16 1244 Last Action: Discontinued Lurasidone HCl (Latuda) 40 Mg Tablet, 40 MG PO DAILY, (Reported) Discontinued Reason: No Longer Taking Entered as Reported by: TYREE MINER on 08/21/17 1347 Last Action: Discontinued Metronidazole (Flagyl) 500 Mg Tablet, 500 MG PO twice a day Discontinued Reason: No Longer Taking Prescribed by: DAVID STEINER on 09/15/18 1619 Last Action: Discontinued Ondansetron (Ondansetron Odt) 8 Mg Tab.rapdis, 8 MG PO Q6H Discontinued Reason: No Longer Taking Prescribed by: AGAPITO CHONG on 09/29/18251 Last Action: Discontinued Pantoprazole Sodium (Pantoprazole Sodium) 40 Mg Tablet.dr, 40 MG PO DAILY, (Reported) Discontinued Reason: No Longer Taking Entered as Reported by: OMAR GRACE on 12/06/16 1244 Last Action: Discontinued Prednisone (Prednisone) 20 Mg Tab, 40 MG PO DAILY Discontinued Reason: No Longer Taking Prescribed by: IFEOMA ERICKSON on 07/05/186 Last Action: Discontinued Sucralfate (Carafate) 1 Gm/10 Ml Oral.susp, 1 GM PO QID AC AND HS Discontinued Reason: No Longer Taking Prescribed by: AGAPITO CHONG on 09/29/18251 Last Action: Discontinued Exam Vital Signs Vital Signs Date Time Temp Pulse Resp B/P (MAP) Pulse Ox O2 Delivery O2 Flow Rate FiO2 01/22/21 15:39 96 Room Air 01/22/21 13:00 92 01/22/21 07:31 36.2 01/22/21 07:28 28 127/71 (89) Physical Exam General: Alert. No acute distress. Well nourished and appears stated age. Eye: Extraocular movements are intact. Conjunctivae are clear. There are no xanthelasma. HENT: Normocephalic. Atraumatic. Carotid pulsations 2/2 without bruits. Neck: Jugular venous pressure does not appear elevated. No thyromegaly appreciated. Respiratory: Lungs are clear to auscultation. Respirations are non-labored. Breath sounds are equal. Symmetrical chest wall expansion. Cardiovascular: Normal rate. Regular rhythm. 2/6 systolic ejection murmur. No gallop. Point of maximal impulse is not appear displaced. Good pulses equal in all extremities. No edema. Gastrointestinal: Soft. Normal bowel sounds. Skin: Skin turgor is normal. There is no pallor. Musculoskeletal: No kyphosis or scoliosis appreciated. Neurologic: Alert and oriented to person, place, time. Cranial nerves 3-12 appear grossly intact. The patient has good motor tone strength in the upper and lower extremities bilaterally. Psychiatric: Cooperative. Appropriate mood & affect. Labs Laboratory Tests Test 01/22/21 04:09 Range/Units White Blood Count 3.7 L 4.3-11.0 10^3/uL Red Blood Count 3.84 3.80-5.11 10^6/uL Hemoglobin 11.7 # 11.5-16.0 g/dL Hematocrit 34 L 35-52 % Mean Corpuscular Volume 90 80-99 fL Mean Corpuscular Hemoglobin 30 25-34 pg Mean Corpuscular Hemoglobin Concent 34 32-36 g/dL Red Cell Distribution Width 13.3 10.0-14.5 % Platelet Count 151 130-400 10^3/uL Mean Platelet Volume 10.1 9.0-12.2 fL Immature Granulocyte % (Auto) 0 % Neutrophils (%) (Auto) 54 42-75 % Lymphocytes (%) (Auto) 38 12-44 % Monocytes (%) (Auto) 8 0-12 % Eosinophils (%) (Auto) 1 0-10 % Basophils (%) (Auto) 0 0-10 % Neutrophils # (Auto) 2.0 1.8-7.8 10^3/uL Lymphocytes # (Auto) 1.4 1.0-4.0 10^3/uL Monocytes # (Auto) 0.3 0.0-1.0 10^3/uL Eosinophils # (Auto) 0.0 0.0-0.3 10^3/uL Basophils # (Auto) 0.0 0.0-0.1 10^3/uL Immature Granulocyte # (Auto) 0.0 0.0-0.1 10^3/uL Sodium Level 141 135-145 MMOL/L Potassium Level 2.7 L 3.6-5.0 MMOL/L Chloride Level 104 98-107 MMOL/L Carbon Dioxide Level 22 21-32 MMOL/L Anion Gap 15 H 5-14 MMOL/L Blood Urea Nitrogen 13 7-18 MG/DL Creatinine 0.77 0.60-1.30 MG/DL Estimat Glomerular Filtration Rate 76 BUN/Creatinine Ratio 17 Glucose Level 107 H 70-105 MG/DL Calcium Level 8.4 L 8.5-10.1 MG/DL Corrected Calcium 9.2 8.5-10.1 MG/DL Total Bilirubin 0.4 0.1-1.0 MG/DL Aspartate Amino Transf (AST/SGOT) 13 5-34 U/L Alanine Aminotransferase (ALT/SGPT) < 6 0-55 U/L Alkaline Phosphatase 40 40-136 U/L Total Protein 5.2 L 6.4-8.2 GM/DL Albumin 3.0 L 3.2-4.5 GM/DL Radiology ECHOCARDIOGRAM (01/22/2021): 1. Left ventricle: The cavity size is normal. There is severe concentric hypertrophy. Systolic function is hyperdynamic. The estimated ejection fraction is 70-75%. There were no regional wall motion abnormalities identified. The left ventricular diastolic function is indeterminate. 2. Aortic valve: There is mild aortic stenosis with a mean gradient of 17 mmHg, a peak gradient of 30 mmHg and peak velocity of 2.7 m/s. 3. Pericardium, extracardiac: A trivial pericardial effusion is identified ant erior to the heart. 4. Pulmonary arteries: The estimated pulmonary artery systolic pressure is 20 mmHg assuming a right atrial pressure of 5 mmHg. ECG Impression ECG Comment Sinus rhythm with sinus arrhythmia, left atrial abnormality and left ventricular hypertrophy with repolarization abnormality. Diagnosis/Problems Diagnosis/Problems (1) Syncope Assessment & Plan: Exact etiology unclear. She had been on telemetry earlier during that admission and there were not any reported arrhythmias to explain syncope. The telemetry has now been discontinued. She does have aortic stenosis but this is in a mild range and should not cause syncope. I suspect she may have had syncope due to severe dehydration with orthostatic hypotension. Her symptoms have improved with hydration. I would suggest an outpatient nurse monitoring after discharge. I will have my office make arrangements for this after she is discharged. (2) Orthostatic hypotension Status: Acute Assessment & Plan: She had orthostatic hypotension on admission. As above, I suspect this is what caused her syncope. (3) Primary hypertension Assessment & Plan: Her antihypertensive medication was previously discontinued due to low blood pressures. (4) Aortic stenosis Assessment & Plan: This is in a mild range and should not be causing symptoms but will need to be followed longitudinally. My office will make arrangements for follow-up. BETHANIE SCOTT JR, MD Jan 22, 2021 15:54
[2021-01-22 20:00] VITALS: BP 138/64
[2021-01-22] MEDS ORDERED: LATUDA 60 MG PO SCH (21:00)
[2021-01-22] MEDS ORDERED: traZODone 100 MG (DESYREL) TAB PO SCH (21:00)
[2021-01-22] MEDS ORDERED: PATIENT MAY USE OWN MEDS, ALL MC SCH (21:00)
[2021-01-22 23:18] VITALS: BP 170/76
[2021-01-23] MEDS: RT-ALBUTEROL SULF 2.5 MG/3 ML PRE-MIX VIAL INH SCH ×2 (02:40→10:18)
[2021-01-23 04:08] VITALS: BP 170/85
[2021-01-23 05:14] LABS: BASOPHILS % (AUTO) 0 % (0-10); EOSINOPHILS % (AUTO) 1 % (0-10); HEMATOCRIT 37 % (35-52); HEMOGLOBIN 12.7 g/dL (11.5-16.0); LYMPHOCYTES # (AUTO) 1.1 10^3/uL (1.0-4.0); LYMPHOCYTES % (AUTO) 29 % (12-44); MEAN CORPUSCULAR HEMOGLOBIN 31 pg (25-34); MEAN CORPUSCULAR HGB CONC 34 g/dL (32-36); MEAN CORPUSCULAR VOLUME 89 fL (80-99); MEAN PLATELET VOLUME 9.4 fL (9.0-12.2); MONOCYTES # (AUTO) 0.3 10^3/uL (0.0-1.0); MONOCYTES % (AUTO) 9 % (0-12); NEUTROPHILS # (AUTO) 2.2 10^3/uL (1.8-7.8); NEUTROPHILS % (AUTO) 61 % (42-75); PLATELET COUNT 155 10^3/uL (130-400); WHITE BLOOD COUNT 3.6 10^3/uL (4.3-11.0)
[2021-01-23 05:28] LABS: ALBUMIN 3.4 GM/DL (3.2-4.5)
[2021-01-23 05:30] LABS: CALCIUM 8.5 MG/DL (8.5-10.1)
[2021-01-23 05:31] LABS: TOTAL PROTEIN 5.3 GM/DL (6.4-8.2)
[2021-01-23 05:33] LABS: BILIRUBIN,TOTAL 0.3 MG/DL (0.1-1.0)
[2021-01-23 05:35] LABS: CREATININE SERUM 0.53 MG/DL (0.60-1.30)
[2021-01-23] MEDS: NS IV 1000 ML 1,000 ML IV SCH (07:44)
[2021-01-23 08:00] VITALS: BP 192/89
[2021-01-23] MEDS ORDERED: FUROSEMIDE 40 MG/4 ML INJ (LASIX) IVP NR (08:00)
[2021-01-23] MEDS ORDERED: amLODIPine 5 MG (NORVASC) TAB PO NR (08:00)
[2021-01-23] MEDS: ALPRAZolam 0.25 MG (XANAX) TAB PO PRN (08:04)
[2021-01-23] MEDS: KCL 20 MEQ TAB (K-DUR) PO SCH ×2 (08:55→13:34)
[2021-01-23] MEDS: polyethylene glycoL POWDER 17 GM (MIRALAX) PACK PO SCH (09:36)
--- NOTE | 2021-01-23 10:25 | Physical Therapy Evaluation ---
PT Evaluation-General Medical Diagnosis Admission Date Jan 21, 2021 at 13:46 Medical Diagnosis: syncope Onset Date: Jan 21, 2021 Therapy Diagnosis Therapy Diagnosis: none Height/Weight Height (Feet): 5 Height (Inches): 7.00 Weight (Pounds): 190 Weight (Ounces): 0 Precautions Precautions/Isolations: Standard Precautions Weight Bear Status Right Lower Extremity: Right Full Weight Bearing Left Lower Extremity: Left Full Weight Bearing Referral Physician: Brie Reason for Referral: Evaluation/Treatment Medical History Pertinent Medical History: Arthritis, DM, GERD, HTN Additional Medical History bipolar disorder, esophageal CA, DVT, high cholesterol, GERD, fibromyalgia, dyphagia Current History Pt to ED via EMS. Reports 2 day history of FLORES that kept her in bed, admitted to not eating or drinking much those 2 days. When she got up to the BR with syncopal episode, woke upon BR floor, syncopal episode again when attempting to stand back up. Reviewed History: Yes Social History Home: Apartment Current Living Status: Alone Entry Into Home: Level Entry Prior Prior Level of Function SCALE: Activities may be completed with or without assistive devices. 7-Ttuspyjbwk-albtjvg completes the activity by him/herself with no assistance from a helper. 5-Set-up or Clean-up Assistance-helper sets up or cleans up; patient completes activity. [place] assists only prior to or following the activity. 4-Supervision or Touching Assistance-helper provides verbal cues and/or touching/steadying and/or contact guard assistance as patient completes activity. Assistance may be provided throughout the activity or intermittently. 3-Partial/Moderate Assistance-helper does LESS THAN HALF the effort. [place] lif ts, holds or supports trunk or limbs, but provides less than half the effort. 2-Substantial/Maximal Assistance-helper does MORE THAN HALF the effort. [place] lifts or holds trunk or limbs and provides more than half the effort. 1-Kyfbkuehh-xqfyqt does ALL the effort. Patient does none of the effort to complete the activity. Or, the assistance of 2 or more helpers is required for the patient to complete the activity. If activity was not attempted, code reason: 7-Patient Refused. 9-Not Applicable-not attempted and the patient did not perform the activity before the current illness, exacerbation or injury. 10-Not Attempted due to Environmental Limitations-(lack of equipment, weather restraints, etc.). 88-Not Attempted due to Medical Conditions or Safety Concerns. Bed Mobility: 6 Transfers (B,C,W/C): 6 Gait: 6 Stairs: 6 Wheelchair Mobility: 9 Indoor Mobility (Ambulation): Independent Stairs: Independent Prior Devices Use: None PT Evaluation-Current Subjective Pt agreeable. Has been up ad ayse in room per Pt report and is at PLOF for functional mobility. Pain Numeric Pain Scale: 0-No Pain Pt/Family Goals Home Objective Patient Orientation: Person, Place, Time, Situation ROM/Strength ROM Upper Extremities WFL ROM Lower Extremities WFL Strength Upper Extremities WFL Strength Lower Extremities WFL Integumentary/Posture Integumentary See nurses' notes Bowel Incontinence: No Bladder Incontinence: No Sensory Vision: Wears Glasses Hearing: Functional Transfers Roll Left to Right (QC): 6 Sit to Lying (QC): 6 Lying to Sitting/Side of Bed(Q: 6 Sit to Stand (QC): 6 Gait Does the Patient Walk?: Yes Mode of Locomotion: Walk Anticipated Mode of Locomotion: Walk Walk 10 feet (QC): 6 Walk 50 ft with 2 Turns(QC): 6 Walk 150 ft (QC): 6 Distance: 350 Gait Assistive Device: None Comments/Gait Description Pt ambulates with moderate pace, steady gait. Wheelchair Training Does the Pt Use a Wheelchair?: No Type of Wheelchair: N/A Balance Sitting Static: Normal Sitting Dynamic: Normal Standing Static: Normal Standing Dynamic: Normal Assessment/Needs Pt is at PLOF for functional mobility and demonstrates safe transfers and safe gait at community level. No skilled PT indicated at this time. Rehab Potential: Good PT Group Home Goals Group Home Goals No goals established. Pt is at PLOF and no PT indicated. PT Plan Treatment/Plan Treatment Plan: Discontinue PT Treatment Duration: Jan 23, 2021 Frequency: Estimated Hrs Per Day: Other Patient and/or Family Agrees t: Yes Pt at PLOF, no skilled PT indicated. Discharge Recommendations Therapy Discharge Recommendati: Home & Family Time/GCodes Time In: 0849 Time Out: 0857 Total Billed Treatment Time: 8 Total Billed Treatment 1, BETO TEJADA DPVasyl Jan 23, 2021 10:24
[2021-01-23] MEDS ORDERED: CEFD300C3 PO (10:59)
--- NOTE | 2021-01-23 11:00 | Discharge Summary ---
Discharge Summary Hospital Course Was the Problem List Reviewed?: Yes Problems/Dx: (1) Syncope (2) Orthostatic hypotension Status: Acute (3) Primary hypertension (4) Aortic stenosis Hospital Course Date of Admission: Jan 21, 2021 at 13:46 Admission Diagnosis : Family Physician/Provider: Anna Yoon Aprn Date of Discharge: 01/23/21 Discharge Diagnosis: Syncope, dehydration, UTI, mental illness Hospital Course: Short course after admitted for syncope with dehydration and orthostasis and hypotension resolved. Rocephin given for UTI. Noted hypertension prior to discharge but will not overtreat. Stop IV fluids give 1 dose of Lasix 20 mg. Patient will have close follow-up with PCP. Labs and Pending Lab Test: Laboratory Tests 01/23/21 04:42: White Blood Count 3.6L, Red Blood Count 4.16, Hemoglobin 12.7, Hematocrit 37, Mean Corpuscular Volume 89, Mean Corpuscular Hemoglobin 31, Mean Corpuscular Hemoglobin Concent 34, Red Cell Distribution Width 13.7, Platelet Count 155, Mean Platelet Volume 9.4, Immature Granulocyte % (Auto) 0, Neutrophils (%) (Auto) 61, Lymphocytes (%) (Auto) 29, Monocytes (%) (Auto) 9, Eosinophils (%) (Auto) 1, Basophils (%) (Auto) 0, Neutrophils # (Auto) 2.2, Lymphocytes # (Auto) 1.1, Monocytes # (Auto) 0.3, Eosinophils # (Auto) 0.0, Basophils # (Auto) 0.0, Immature Granulocyte # (Auto) 0.0, Sodium Level 141, Potassium Level 3.0L, Chloride Level 106, Carbon Dioxide Level 24, Anion Gap 11, Blood Urea Nitrogen 3L, Creatinine 0.53L, Estimat Glomerular Filtration Rate 117, BUN/Creatinine Ratio 6, Glucose Level 80, Calcium Level 8.5, Corrected Calcium 9.0, Total Bilirubin 0.3, Aspartate Amino Transf (AST/SGOT) 15, Alanine Aminotransferase (ALT/SGPT) 7, Alkaline Phosphatase 45, Total Protein 5.3L, Albumin 3.4 Microbiology 01/21/21 Blood Culture - Preliminary, Resulted No growth 01/21/21 Urine Culture - Preliminary, Resulted Gram Negative Bacillus 1 Mixed Bacterial Teagan Home Meds Active Cefdinir 300 Mg Capsule 300 Mg PO BID Reported [Latuda ] 60 Tab 60 Mg PO HS Trazodone HCl 100 Mg Tablet 100 Mg PO HS Assessment/Pt Instructions PCP in 1 week Discharge Planning: <30 minutes discharge planning Discharge Instructions Discharge Diet: No Restrictions Activity as Tolerated: Yes Discharge Physical Examination Vital Signs Vital Signs Date Time Temp Pulse Resp B/P (MAP) Pulse Ox O2 Delivery O2 Flow Rate FiO2 01/23/21 10:18 98 Room Air 01/23/21 08:00 36.2 64 16 192/89 (123) General Appearance: No Apparent Distress, WD/WN Respiratory: Chest Non Tender, Lungs Clear, Normal Breath Sounds, No Accessory Muscle Use, No Respiratory Distress Cardiovascular: Regular Rate, Rhythm, No Edema, No Gallop, No JVD, No Murmur, Normal Peripheral Pulses Neurologic/Psychiatric: Alert, Oriented x3, No Motor/Sensory Deficits, Normal Mood/Affect Allergies: Coded Allergies: Iodinated Contrast Media (Verified Allergy, Severe, HIVES, 10/02/17) COUGHING, SNEEZING, HIVES UPON TRACE AMOUNT OF CONTRAST. codeine (Verified Allergy, Intermediate, RASH/SWELLING; PATIENT HAS RECEIVED MORPHINE W/O PROBLEMS, 12/06/16) adhesive tape (Verified Allergy, Unknown, 12/06/16) latex (Verified Allergy, Unknown, 12/06/16) Penicillins (Verified Adverse Reaction, Mild, NAUSEA/VOMITING, 12/07/16) SHE CAN TAKE AUGMENTIN FINE Discharge Summary Date of Admission Jan 21, 2021 at 13:46 Date of Discharge Discharge Date: Jan 23, 2021 Admission Diagnosis Assessment: Syncope UTI Profound dehydration Hypokalemia Diabetes Hypertension Vertigo Esophageal cancer history Plan: Supplement potassium UTI treatment Discharge Diagnosis Orthostasis Cardiology consult Potassium (1) Syncope Assessment & Plan: Exact etiology unclear. She had been on telemetry earlier during that admission and there were not any reported arrhythmias to explain syncope. The telemetry has now been discontinued. She does have aortic stenosis but this is in a mild range and should not cause syncope. I suspect she may have had syncope due to severe dehydration with orthostatic hypotension. Her symptoms have improved with hydration. I would suggest an outpatient monitoring coordinator after discharge. I will have my office make arrangements for this after she is discharged. (2) Orthostatic hypotension Status: Acute Assessment & Plan: She had orthostatic hypotension on admission. As above, I suspect this is what caused her syncope. (3) Primary hypertension Assessment & Plan: Her antihypertensive medication was previously discontinued due to low blood pressures. (4) Aortic stenosis Assessment & Plan: This is in a mild range and should not be causing symptoms but will need to be followed longitudinally. My office will make arrangements for follow-up. WALDO QUINONEZ DO Jan 23, 2021 11:00
[2021-01-23] MEDS: ENOXAPARIN 40 MG/0.4 ML (LOVENOX) SYR SC SCH (13:35)
--- NOTE | 2021-01-23 14:38 | Cardiology Progress Note ---
Progress Note-Cardiology Events since last exam Date Seen by Provider: Jan 23, 2021 Time Seen by Provider: 14:34 Events since last exam I am following her due to syncope. She denies any further syncope. Her lig htheadedness has improved. She denies chest discomfort, dyspnea, palpitations, or lower extremity edema. She wants to go home today. Certain portions of this document may have been dictated utilizing voice recognition technology. Inherent to this technology, typographical and grammatical errors may exist. As much as I am diligent to identify and correct these mistakes, some errors may remain in the document. Vitals Last set of Vitals Signs Vital Signs 01/23/21 01/23/21 08:00 10:18 Temp 36.2 Pulse 64 Resp 16 B/P (MAP) 192/89 (123) Pulse Ox 98 O2 Delivery Room Air Labs Labs Laboratory Tests 01/23/21 04:42 Exam Vital Signs Vital Signs Date Time Temp Pulse Resp B/P (MAP) Pulse Ox O2 Delivery O2 Flow Rate FiO2 01/23/21 10:18 98 Room Air 01/23/21 08:00 36.2 64 16 192/89 (123) Physical Exam General: Alert. No acute distress. Eye: No xanthelasma. HENT: Normocephalic. Neck: Jugular venous pressure does not appear elevated. Respiratory: Lungs are clear to auscultation. Respirations are non-labored. Breath sounds are equal. Symmetrical chest wall expansion. Cardiovascular: Normal rate. Regular rhythm. 2/6 systolic ejection murmur. No gallop. No edema. Gastrointestinal: Soft. Normal bowel sounds. Skin: Warm. Dry. Neurologic: Alert and oriented to person, place, time. Cranial nerves 3-11 gross ly intact. Psychiatric: Cooperative. Appropriate mood & affect. Labs Laboratory Tests Test 01/23/21 04:42 Range/Units White Blood Count 3.6 L 4.3-11.0 10^3/uL Red Blood Count 4.16 3.80-5.11 10^6/uL Hemoglobin 12.7 11.5-16.0 g/dL Hematocrit 37 35-52 % Mean Corpuscular Volume 89 80-99 fL Mean Corpuscular Hemoglobin 31 25-34 pg Mean Corpuscular Hemoglobin Concent 34 32-36 g/dL Red Cell Distribution Width 13.7 10.0-14.5 % Platelet Count 155 130-400 10^3/uL Mean Platelet Volume 9.4 9.0-12.2 fL Immature Granulocyte % (Auto) 0 % Neutrophils (%) (Auto) 61 42-75 % Lymphocytes (%) (Auto) 29 12-44 % Monocytes (%) (Auto) 9 0-12 % Eosinophils (%) (Auto) 1 0-10 % Basophils (%) (Auto) 0 0-10 % Neutrophils # (Auto) 2.2 1.8-7.8 10^3/uL Lymphocytes # (Auto) 1.1 1.0-4.0 10^3/uL Monocytes # (Auto) 0.3 0.0-1.0 10^3/uL Eosinophils # (Auto) 0.0 0.0-0.3 10^3/uL Basophils # (Auto) 0.0 0.0-0.1 10^3/uL Immature Granulocyte # (Auto) 0.0 0.0-0.1 10^3/uL Sodium Level 141 135-145 MMOL/L Potassium Level 3.0 L 3.6-5.0 MMOL/L Chloride Level 106 98-107 MMOL/L Carbon Dioxide Level 24 21-32 MMOL/L Anion Gap 11 5-14 MMOL/L Blood Urea Nitrogen 3 L 7-18 MG/DL Creatinine 0.53 L 0.60-1.30 MG/DL Estimat Glomerular Filtration Rate 117 BUN/Creatinine Ratio 6 Glucose Level 80 70-105 MG/DL Calcium Level 8.5 8.5-10.1 MG/DL Corrected Calcium 9.0 8.5-10.1 MG/DL Total Bilirubin 0.3 0.1-1.0 MG/DL Aspartate Amino Transf (AST/SGOT) 15 5-34 U/L Alanine Aminotransferase (ALT/SGPT) 7 0-55 U/L Alkaline Phosphatase 45 40-136 U/L Total Protein 5.3 L 6.4-8.2 GM/DL Albumin 3.4 3.2-4.5 GM/DL Diagnosis/Problems Diagnosis/Problems (1) Syncope Assessment & Plan: Exact etiology unclear. I suspect this was due to orthostatic hypotension which was present on admission. She admitted to poor oral intake for several days prior to admission. There is no evidence of [id number], Brugada syndrome, or prolonged or short QT on her resting electrocardiogram. Nonetheless, arrhythmias are also in the differential diagnosis. I will have my office schedule her for a 30-day event recorder after discharge and then I will plan to see her in the office a few weeks later. From a cardiac standpoint, she can be discharged home. (2) Orthostatic hypotension Status: Acute Assessment & Plan: She had orthostatic hypotension on admission. As above, I suspect this is what caused her syncope. This improved with hydration and she is actually hypertensive at this point. (3) Primary hypertension Assessment & Plan: Her antihypertensive medication was previously discontinued due to low blood pressures. She has had some high blood pressures today. This will need to be followed after discharge. (4) Aortic stenosis Assessment & Plan: This is in a mild range and should not be causing symptoms but will need to be followed longitudinally. I will have my office make arrangements for follow-up. BETHANIE SCOTT JR, MD Jan 23, 2021 14:38
[2021-01-23] MEDS: cefTRIAXone 1 GM PRE-MIX 50 ML IV SCH (15:35)
[2021-01-23 16:20] VITALS: BP 192/89
== END 2021-01-23 10:57 | disposition home or self-care (01) ==
LOC: EDUNIT# 10:07 → ER 10:09 → CSD 13:46 → UNDOADMOB 13:46 → CSD 15:00 → 4TH 01-22 16:10 → UNDODISOB 01-23 16:20
PROVIDERS: ADMIT Internal Medicine; ATTEND Internal Medicine
DX: I95.1 Orthostatic hypotension (principal); I35.0 Nonrheumatic aortic (valve) stenosis; E11.9 Type 2 diabetes mellitus without complications; E87.6 Hypokalemia; Z85.01 Personal history of malignant neoplasm of esophagus; E86.0 Dehydration; Z79.899 Other long term (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; Z79.2 Long term (current) use of antibiotics; I49.9 Cardiac arrhythmia, unspecified; I11.9 Hypertensive heart disease without heart failure; Z87.891 Personal history of nicotine dependence; E46 Unspecified protein-calorie malnutrition; D64.89 Other specified anemias; G47.00 Insomnia, unspecified; E78.00 Pure hypercholesterolemia, unspecified; Z86.718 Personal history of other venous thrombosis and embolism; F41.9 Anxiety disorder, unspecified; F32.A Depression, unspecified; Z79.891 Long term (current) use of opiate analgesic; Z79.890 Hormone replacement therapy; K21.9 Gastro-esophageal reflux disease without esophagitis; M19.90 Unspecified osteoarthritis, unspecified site; M79.7 Fibromyalgia; N30.01 Acute cystitis with hematuria; A41.9 Sepsis, unspecified organism
CPT/HCPCS: 36415; 70450; 71045; 72125; 80053; 81000; 83605; 84484; 85025; 85610; 85730; 86141; 87040; 87077; 87088; 87186; 93005; 93306; 94640; 94664; 94760

== ENCOUNTER 2021-07-10 08:48 | Inpatient (IN) | payer MEDICARE ==
[~2021-07-10] VITALS: Ht 167.7 cm; Wt 62.0 kg
[~2021-07-10 08:48] MED LIST changes: +CEFD300C3 PO; +LATUDA PO; +LURA40TA2 PO; -LURA40TA3 PO; +TRAZ-227 PO
[2021-07-10] MEDS ORDERED: LACTATED RINGERS 1,000 ML IV ONE (09:00)
--- NOTE | 2021-07-10 09:14 | ED General ---
General Chief Complaint: Abdominal/GI Problems Stated Complaint: WEAKNESS/DIZZY Nursing Triage Note: diarrhea started today, not feeling well yesterday. arrives via ems to room 03. Source of Information: Patient (PT IS AN EXTREMELY POOR HISTORIAN), EMS, Old Records History of Present Illness Date Seen by Provider: July 10, 2021 Time Seen by Provider: 08:48 Initial Comments PT ARRIVES VIA EMS FROM [facility] PT WAS AT [facility] TODAY, AND BECAME WEAK AND DIZZY AND HAD NEAR-SYNCOPAL EPISODE, AND WAS INCONTINENT OF BROWN LIQUID STOOL DID NOT FALL, OR INJURE HERSELF--STATES SHE WAS ABLE TO CATCH HERSELF EMS STATES BLOOD PRESSURE WAS "ALL OVER THE PLACE"--HAD SYSTOLIC READINGS FROM THE 60'S TO 119. PULSE STRONG AND REGULAR. DENIES PAIN ANYWHERE STATES SHE DID FEEL WEAK AND DIZZY THIS MORNING WHEN SHE WOKE UP, AND "JUST DIDN'T FEEL GOOD" ALL DAY YESTERDAY AND SLEPT ALL DAY. NO HEADACHE STATES VISION IS SLIGHTLY BLURRY NO PARESTHESIAS OR MOTOR DEFICITS NO CHEST PAIN NO PALPITATIONS NO SHORTNESS OF BREATH NO FEVER/SWEATS/CHILLS NO NAUSEA/VOMITING--DID NOT EAT OR DRINK ANYTHING TODAY NO ABDOMINAL PAIN NO URINARY SYMPTOMS HAS ONLY HAD THE ONE EPISODE OF DIARRHEA TODAY PT STATES THIS HAS NEVER HAPPENED BEFORE, HOWEVER ON REVIEW OF OLD RECORDS SHE WAS HERE 01/2021 WITH SIMILAR SYMPTOMS PT STATES SHE DOES NOT HAVE A DR AND HAS NOT SEEN ONE IN "YEARS" , HAS NO MEDICAL PROBLEMS OF ANY KIND, HAS NEVER BEEN PRESCRIBED ANY MEDICATION FOR ANY MEDICAL PROBLEM AND HAS NEVER HAD ANY SURGERIES AND HAS NEVER SMOKED, USED DRUGS OR USED ALCOHOL. ON REVIEW OF OLD RECORDS, PT HAS BEEN HERE A MULTITUDE OF TIMES, IS ESTABLISHED WITH [facility], IS SUPPOSED TO BE ON MULTIPLE MEDICATIONS, HAS A FAIRLY EXTENSIVE PAST MEDICAL HISTORY AND HAS HAD MULTIPLE SURGERIES. SEE PMH SECTION FOR DETAILS--ALL FROM OLD CHARTS. PT LATER ADMITS TO SMOKING MARIJUANA ON REGULAR BASIS AND LATER ADMITS TO TAKING "1 VALIUM 2-3 WEEKS AGO" PER MED RECONCILIATION, PT FILLED RX'S FOR LATUDA AND TRAZADONE 07/05/21 PT HAS NOT FILLED RX'S FOR BLOOD PRESSURE MEDICATION SINCE 02/2021 ( PROPRANOLOL AND AMLODIPINE) PT STATES SHE HAS NOT HAD COVID OR FLU VACCINES PCP: [facility] Allergies and Home Medications Allergies Coded Allergies: Iodinated Contrast Media (Verified Allergy, Severe, HIVES, 10/02/17) COUGHING, SNEEZING, HIVES UPON TRACE AMOUNT OF CONTRAST. codeine (Verified Allergy, Intermediate, RASH/SWELLING; PATIENT HAS RECEIVED MORPHINE W/O PROBLEMS, 12/06/16) adhesive tape (Verified Allergy, Unknown, 12/06/16) latex (Verified Allergy, Unknown, 12/06/16) Penicillins (Verified Adverse Reaction, Mild, NAUSEA/VOMITING, 12/07/16) SHE CAN TAKE AUGMENTIN FINE Patient Home Medication List Home Medication List Reviewed: Yes Aspirin (Children's Aspirin) 81 Mg Tab.chew, 81 MG PO DAILY Prescribed by: BETHANIE SCOTT JR, MD on 07/12/21 161 Cefdinir (Cefdinir) 300 Mg Capsule, 300 MG PO BID Prescribed by: JAJA WALDROP on 07/12/21 161 Metoprolol Succinate (Metoprolol Succinate) 50 Mg Tab.er.24h, 100 MG PO DAILY Prescribed by: BETHANIE SCOTT JR, MD on 07/12/21 161 Rosuvastatin Calcium (Rosuvastatin Calcium) 20 Mg Tablet, 20 MG PO HS Prescribed by: BETHANIE SCOTT JR, MD on 07/12/21 1618 Trazodone HCl (Trazodone HCl) 100 Mg Tablet, 200 MG PO HS, (Reported) Entered as Reported by: BLESSING MAZA on 01/21/21 1556 Last Action: Reviewed [Latuda 60] , 60 MG PO HS, (Reported) Entered as Reported by: VENKATA SWIFT on 07/12/21 1106 Last Action: Reviewed Discontinued Medications Cefdinir (Cefdinir) 300 Mg Capsule, 300 MG PO BID Discontinued Reason: No Longer Taking Prescribed by: WALDO QUINONEZ on 01/23/21 1059 Last Action: Discontinued Review of Systems Review of Systems Constitutional: see HPI, dizziness, malaise, weakness Respiratory: no symptoms reported; No cough, No short of breath Cardiovascular: No chest pain, No edema, No palpitations; other (NEAR-SYNCOPE) Gastrointestinal: see HPI; No abdominal pain; diarrhea, loss of appetite; No nausea, No vomiting Genitourinary: No dysuria Musculoskeletal: No back pain, No neck pain Psychiatric/Neurological: Denies Headache, Denies Numbness, Denies Paresthesia, Denies Seizure, Denies Tingling, Denies Tremors; Other (VERY POOR MEMORY) Past Aakeyfm-Iblbrs-Xjzqug Hx Patient Social History Tobacco Use?: Yes Tobacco type used: Cigarettes Smoking Status: Former Smoker Substance type: Misuse of prescript meds, Marijuana Additional substance use comme: HISTORY OF RX DRUG ABUSE/OVERDOSES Immunizations Up To Date Tetanus Booster (TDap): Less than 5yrs PED Vaccines UTD: No Seasonal Allergies Seasonal Allergies: Yes Past Medical History Surgeries: Yes Abdominal, Adenoidectomy, Appendectomy, Bowel Surgery, Breast, Cardiac, Gallbladder, Hysterectomy, Oophorectomy, Orthopedic, Renal, Tonsillectomy, Tracheostomy, Tubal Ligation Respiratory: Yes (HAS INHALER PRN) Chronic Bronchitis Currently Using CPAP: No Cardiac: Yes (DVT 2010-UPPER ARM/SHOULDER ; CARDIAC CATH-NO INTERVENTION; AORTIC STENOSIS) Deep Vein Thrombosis, High Cholesterol, Hypertension, Valvular Heart Disease Neurological: Yes Headaches /Migraines Reproductive Disorders: Yes Female Reproductive Disorders: Polycystic Ovarian Dis 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: Hysterectomy, Menopausal Sexually Transmitted Disease: No HIV/AIDS: No Genitourinary: Yes (KIDNEY STONE REMOVALS) Kidney Infection, Bladder Infection, Kidney Stones Gastrointestinal: Yes (ESOPH CA/STRICTURES/DILATIONS;COLON RESECTION;POLYPECTOMIES;PEG TUBE-REM) Gastroesophageal Reflux, Chronic Constipation, Diverticulosis, Polyps Musculoskeletal: Yes (BUNIONECTOMY) Arthritis, Fibromyalgia Endocrine: Yes Diabetes, 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; GLASSES) Dysphagia Loss of Vision: Bilateral Hearing Impairment: Denies Cancer: Yes (OROPHARNYX/ESOPHAGEAL CANCER) Esophageal Did You Recieve Any Treatments: Yes What Type of Treatment Did You: Chemotherapy, Radiation, Surgical Intervention BOTH ESOPHAGEAL AND ORAL-PHARYNGEAL CANCER--S/P SURGERY/CHEMO/RADIATION DX IN 2010--COMPLETED TX IN 2013 HAD PEG TUBE, TRACH AND PORT--ALL REMOVED Psychosocial: Yes (MULTIPLE PSYCH ADMITS, OVERDOSES AND SUICIDE ATTEMPTS) Sleep Difficulties, Anxiety, Suicide Attempts, Bipolar, Depression Integumentary: No Blood Disorders: No Adverse Reaction/Blood Tranf: No Family Medical History Alzheimer's disease 19 MOTHER Arthritis 19 MOTHER Cardiovascular disease 19 MOTHER Cataracts 19 MOTHER Dementia 19 MOTHER Diabetes mellitus 19 FATHER Headache disorder Hypercholesterolemia 19 FATHER Hypertension 19 FATHER Neoplasm 19 FATHER (PANCREATIC CANCER) Heart Disease, Cancer, Hypertension, Psychiatric Problems SOCIAL HISTORY: -SMOKED 1 PPD X 30 YEARS, QUIT 1986 -[facility]--OCCASIONAL USE -DRUGS--HX OF RX DRUG ABUSE AND OVERDOSES, THC USE PAST SURGICAL HISTORY: -MODIFIED RADICAL NECK DISSECTION FOR OROPHARYNGEAL CANCER -ALSO HAD SURGERY FOR ESOPHAGEAL CANCER -PEG TUBE--LATER REMOVED -TRACHEOSTOMY--LATER REMOVED -PORT PLACE--LATER REMOVED -MULTIPLE EGD'S/COLONOSCOPIES/ESOPHAGEAL DILATIONS/POLYPECTOMIES -COLON RESECTION FOR DIVERTICULAR DISEASE -BUNIONECTOMY -CARDIAC CATH--NO INTERVENTION -BREAST REDUCTION -CYSTOSCOPIES, URETERAL STENT; KIDNEY STONE REMOVAL -TONSILLECTOMY/ADENOIDECTOMY -APPENDECTOMY -CHOLECYSTECTOMY -HYSTERECTOMY/BILATERAL SALPINGO-OOPHORECTOMY -BILATERAL TUBAL LIGATION -TEETH REMOVED PAST SURGICAL HISTORY: - Physical Exam Vital Signs Vital Signs - First Documented 07/10/21 08:50 Temp 36.0 Pulse 98 Resp 20 B/P (MAP) 121/89 (100) Pulse Ox 95 Capillary Refill : Less Than 3 Seconds Height, Weight, BMI Height: 5'7.00" Weight: 190lbs. 0oz. [id number]; 20.00 BMI Method:Stated General Appearance: No Apparent Distress, WD/WN, Other (INCONTINENT OF BROWN LIQUID STOOL. ) HEENT: PERRL/EOMI, Normal ENT Inspection, Pharynx Normal, Other (EDENTULOUS) Neck: Non Tender, Supple, Other (POST SURGICAL CHANGES) Respiratory: Normal Breath Sounds, No Accessory Muscle Use, No Respiratory Distress Cardiovascular: Regular Rate, Rhythm, No Edema, No JVD, No Murmur, Systolic Murmur (FAINT) Gastrointestinal: Normal Bowel Sounds, No Organomegaly, No Pulsatile Mass, Soft, Tenderness (MILD SUPRAPUBIC TENDERNESS) Back: Normal Inspection, No CVA Tenderness, No Vertebral Tenderness Extremity: Normal Capillary Refill, Normal Inspection, Normal Range of Motion, Non Tender, No Calf Tenderness, No Pedal Edema Neurologic/Psychiatric: Alert, Oriented x3 (BUT VERY POOR MEMORY), No Motor/Sensory Deficits, otorhinolaryngologist II-XII Norm as Tested, Other (SLIGHTLY SLOW MENTATION??) Skin: Normal Color, Warm/Dry, Ecchymosis (MULTIPLE OLD BRUISES TO FOREARMS. ) Focused Exam Sepsis Stage: Sepsis Possible Source: Unknown Lactate Level 07/10/21 09:32: Lactic Acid Level 3.10*H Time of Focused Exam: 11:00 Respiratory: Normal Breath Sounds, No Accessory Muscle Use, No Respiratory Distress Cardiovascular: Regular Rate, Rhythm, No Edema, No JVD, Normal Peripheral Pu lses Capillary Refill: Less Than 3 Seconds Skin: normal color, warm/dry Lactic Acid Level Laboratory Tests Test 07/10/21 09:32 Lactic Acid Level 3.10 MMOL/L (0.50-2.00) *H Within 3hrs of presentation: Admin fluids, Admin ABX, Blood cultures prior to ABX's, Focus exam, Lactate level Progress/Results/Core Measures Suspected Sepsis SIRS Temperature: Pulse: 98 Respiratory Rate: 20 Laboratory Tests 07/10/21 09:05: White Blood Count 15.4H Blood Pressure 121 /89 Mean: 100 07/10/21 09:32: Lactic Acid Level 3.10*H Laboratory Tests 07/10/21 09:05: Creatinine 1.08, INR Comment 1.1, Platelet Count 238, Total Bilirubin 1.6H Results/Orders Lab Results Laboratory Tests Test 07/10/21 09:05 07/10/21 09:14 07/10/21 09:22 07/10/21 09:31 Range/Units White Blood Count 15.4 H 4.3-11.0 10^3/uL Red Blood Count 5.47 H 3.80-5.11 10^6/uL Hemoglobin 16.8 H 11.5-16.0 g/dL Hematocrit 49 35-52 % Mean Corpuscular Volume 90 80-99 fL Mean Corpuscular Hemoglobin 31 25-34 pg Mean Corpuscular Hemoglobin Concent 34 32-36 g/dL Red Cell Distribution Width 15.5 H 10.0-14.5 % Platelet Count 238 130-400 10^3/uL Mean Platelet Volume 10.1 9.0-12.2 fL Immature Granulocyte % (Auto) 0 % Neutrophils (%) (Auto) 86 H 42-75 % Lymphocytes (%) (Auto) 8 L 12-44 % Monocytes (%) (Auto) 5 0-12 % Eosinophils (%) (Auto) 0 0-10 % Basophils (%) (Auto) 0 0-10 % Neutrophils # (Auto) 13.3 H 1.8-7.8 10^3/uL Lymphocytes # (Auto) 1.3 1.0-4.0 10^3/uL Monocytes # (Auto) 0.8 0.0-1.0 10^3/uL Eosinophils # (Auto) 0.0 0.0-0.3 10^3/uL Basophils # (Auto) 0.0 0.0-0.1 10^3/uL Immature Granulocyte # (Auto) 0.1 0.0-0.1 10^3/uL Neutrophils % (Manual) 83 % Lymphocytes % (Manual) 10 % Monocytes % (Manual) 7 % Blood Morphology Comment NORMAL Erythrocyte Sedimentation Rate 4 0-30 MM/HR Prothrombin Time 14.6 12.2-14.7 SEC INR Comment 1.1 0.8-1.4 Activated Partial Thromboplast Time 28 24-35 SEC D-Dimer 1.28 H 0.00-0.49 UG/ML Sodium Level 135 135-145 MMOL/L Potassium Level 2.8 L 3.6-5.0 MMOL/L Chloride Level 93 L 98-107 MMOL/L Carbon Dioxide Level 19 L 21-32 MMOL/L Anion Gap 23 H 5-14 MMOL/L Blood Urea Nitrogen 26 H 7-18 MG/DL Creatinine 1.08 0.60-1.30 MG/DL Estimat Glomerular Filtration Rate 58 BUN/Creatinine Ratio 24 Glucose Level 115 H 70-105 MG/DL Calcium Level 9.4 8.5-10.1 MG/DL Corrected Calcium 9.3 8.5-10.1 MG/DL Magnesium Level 2.3 1.6-2.4 MG/DL Total Bilirubin 1.6 H 0.1-1.0 MG/DL Aspartate Amino Transf (AST/SGOT) 158 H 5-34 U/L Alanine Aminotransferase (ALT/SGPT) 33 0-55 U/L Alkaline Phosphatase 72 40-136 U/L Total Creatine Kinase 5713 H 29-168 U/L Creatine Kinase MB 27.8 *H <6.6 NG/ML Myoglobin 2533.2 H 10.0-92.0 NG/ML Troponin I 1.805 *H <0.028 NG/ML C-Reactive Protein High Sensitivity 4.85 H 0.00-0.50 MG/DL B-Type Natriuretic Peptide 794.6 H <100.0 PG/ML Total Protein 7.0 6.4-8.2 GM/DL Albumin 4.1 3.2-4.5 GM/DL Amylase Level 32 25-125 U/L Lipase 30 8-78 U/L Procalcitonin 0.99 H <0.10 NG/ML Salicylates Level < 5.0 L 5.0-20.0 MG/DL Acetaminophen Level < 10 L 10-30 UG/ML Serum Alcohol < 10 <10 MG/DL Glucometer 100 70-110 MG/DL Urine Color YELLOW Urine Clarity CLOUDY Urine pH 6.0 5-9 Urine Specific [place] >=1.030 1.016-1.022 Urine Protein 3+ H NEGATIVE Urine Glucose (UA) NEGATIVE NEGATIVE Urine Ketones 2+ H NEGATIVE Urine Nitrite NEGATIVE NEGATIVE Urine Bilirubin 2+ H NEGATIVE Urine Urobilinogen 1.0 < = 1.0 MG/DL Urine Leukocyte Esterase NEGATIVE NEGATIVE Urine RBC (Auto) 3+ H NEGATIVE Urine RBC RARE /HPF Urine WBC 0-2 /HPF Urine Squamous Epithelial Cells 5-10 /HPF Urine Crystals NONE /LPF Urine Bacteria FEW H /HPF Urine Casts PRESENT /LPF Urine Hyaline Casts >50 H /LPF Urine Granular Casts 2-5 H /LPF Urine Mucus NEGATIVE /LPF Urine Culture Indicated YES Urine Opiates Screen NEGATIVE NEGATIVE Urine Oxycodone Screen NEGATIVE NEGATIVE Urine Methadone Screen NEGATIVE NEGATIVE Urine Propoxyphene Screen NEGATIVE NEGATIVE Urine Barbiturates Screen NEGATIVE NEGATIVE Ur Tricyclic Antidepressants Screen NEGATIVE NEGATIVE Urine Phencyclidine Screen NEGATIVE NEGATIVE Urine Amphetamines Screen NEGATIVE NEGATIVE Urine Methamphetamines Screen NEGATIVE NEGATIVE Urine Benzodiazepines Screen POSITIVE H NEGATIVE Urine Cocaine Screen NEGATIVE NEGATIVE Urine Cannabinoids Screen POSITIVE H NEGATIVE Influenza Type A (RT-PCR) Not Detected Not Detecte Influenza Type B (RT-PCR) Not Detected Not Detecte SARS-CoV-2 RNA (RT-PCR) Not Detected Not Detecte Test 07/10/21 09:32 Range/Units Lactic Acid Level 3.10 *H 0.50-2.00 MMOL/L Ammonia 27 11-32 UMOL/L Micro Results Microbiology 07/10/21 Blood Culture - Preliminary, Resulted No growth 07/10/21 Blood Culture - Preliminary, Resulted No growth 07/10/21 Urine Culture - Final, Complete Escherichia coli Gram Pos Mixed Bacterial Teagan My Orders Orders - AGAPITO CHONG DO Accucheck Stat ONCE (07/10/21 08:55) Ed Iv/Invasive Line Start (07/10/21 08:55) Ekg Tracing (07/10/21 08:55) Monitor-Rhythm Ecg Trace Only (07/10/21 08:55) Alcohol (07/10/21 08:55) Amylase (07/10/21 08:55) Bnp Magalys (07/10/21 08:55) Cbc With Automated Diff (07/10/21 08:55) Comprehensive Metabolic Panel (07/10/21 08:55) Creatine Kinase (07/10/21 08:55) Creatine Kinase Mb (07/10/21 08:55) Hs C Reactive Protein (07/10/21 08:55) Fibrin Degradation Products (07/10/21 08:55) Drug Screen Stat (Urine) (07/10/21 08:55) Lipase (07/10/21 08:55) Magnesium (07/10/21 08:55) Protime With Inr (07/10/21 08:55) Partial Thromboplastin Time (07/10/21 08:55) Ua Culture If Indicated (07/10/21 08:55) Erythrocyte Sedimentation Rate (07/10/21 08:55) Myoglobin Serum (07/10/21 08:55) Troponin I Magalys (07/10/21 08:55) Chest 1 View, Ap/Pa Only (07/10/21 08:55) Ed Iv/Invasive Line Start (07/10/21 08:55) Lactated Ringers (Lr 1000 Ml Iv Solution (07/10/21 09:00) Catheter(Urinary) Insert & Ass 03,15 (07/10/21 09:06) Acetaminophen (07/10/21 09:18) Lactic Acid Analyzer (07/10/21 09:18) Procalcitonin (Pct) (07/10/21 09:18) Salicylate (07/10/21 09:18) Covid 19 Inhouse Test (07/10/21 09:18) Influenza A And B By Pcr (07/10/21 09:18) Isolation Central Supply Req (07/10/21 09:18) Manual Differential (07/10/21 09:05) Fecal Wbc (07/10/21 09:24) Isolation Central Supply Req (07/10/21 09:24) Fecal Occult Bedside (07/10/21 09:24) Ammonia (07/10/21 09:18) Urine Culture (07/10/21 09:22) Ct Head Wo-R/O Stroke (07/10/21 09:50) Ct Chest/Abdomen/Pelvis Wo (07/10/21 09:50) Ed Iv/Invasive Line Start (07/10/21 09:58) Vital Signs Adult Sepsis Patie Q15M (07/10/21 09:58) Remove Rings In Anticipation O (07/10/21 09:58) D5 1/2 Ns W/Kcl 40 Meq/L (Dextrose 5%/0. (07/10/21 10:00) Thyroid Analyzer (07/10/21 11:32) Ekg Tracing (07/10/21 10:53) Ceftriaxone 1 Gm Pre-Mix (Rocephin 1 Gm (07/10/21 11:30) Azithromycin Injection (Zithromax Inject (07/10/21 11:30) Ed Admission (Communication) (07/10/21 11:22) Medications Given in ED Vital Signs/I&O 07/10/21 08:50 Temp 36.0 Pulse 98 Resp 20 B/P (MAP) 121/89 (100) Pulse Ox 95 Capillary Refill : Less Than 3 Seconds Blood Pressure Mean: 100 Progress Note : Progress Note GIVEN IV FLUIDS NO DETERIORATION IN PT'S CONDITION DURING ER STAY VOICED NO COMPLAINTS DURING ENTIRE ER STAY VITALS STABLE BP READINGS ALL > 100 SYSTOLIC DURING ER STAY PT IS ALLERGIC TO IV CONTRAST , THEREFORE CANNOT OBTAIN CT WITH IV CONTRAST NO MRI SERVICES AVAILABLE HERE ALL WEEKEND. ECG Initial ECG Impression Date: July 10, 2021 Initial ECG Impression Time: 09:11 Initial ECG Rate: 100 Initial ECG Rhythm: Normal Sinus Initial ECG Impression: Nonspecific Changes (MUCH ARTIFACT) EKG : EKG Time: 11:04 Rate: 91 Rhythm: Normal Sinus ECG Comparisson: Unchanged ECG Impression: Nonspecific Changes (MUCH ARTIFACT) Diagnostic Imaging Comments CT HEAD--PER RADIOLOGIST VIA PHONE AT 1047 AND PER DICTATED REPORT AT 1108 ACUTE OR SUBACUTE INFARCT IN LEFT FRONTAL LOBE. FINDINGS: Mild diffuse cerebral volume loss with proportional enlargement of the ventricles and sulci. There is hypoattenuation of the left frontal lobe. Stable likely chronic lacunar infarct of the left frontal lobe. No other abnormal attenuation of brain parenchyma is present. No acute intracranial hemorrhage or abnormal extra-axial fluid collections are present. Calcification of the intracranial ICAs. No hyperdense vessel. The calvarium is intact. The mastoid air cells are clear. The visualized paranasal sinuses are clear. The orbits are normal. IMPRESSION: 1. Hypoattenuation of the left frontal lobe which is concerning for acute or subacute infarct. CXR--PER RADIOLOGIST REPORT AT 1107 FINDINGS: Heart size and pulmonary vasculature are normal. The lungs are clear without consolidation, pleural effusion, or pneumothorax. The osseous structures are intact. IMPRESSION: 1. No acute radiographic abnormality in the chest. CT CHEST/ABDOMEN/PELVIS--PER RADIOLOGIST REPORT AT 1110 FINDINGS: There is mild dependent atelectasis and/or scarring in the right lower lobe. Otherwise lungs appear clear. There is no evidence of pathologically enlarged adenopathy in the thorax. There is no significant pleural or pericardial fluid. There is mild coronary artery atherosclerosis. Below the diaphragm, unenhanced images of liver and spleen reveal no focal abnormality. Gallbladder is surgically absent. There is no evidence of pancreatic, adrenal gland or acute renal abnormality. There is no evidence of obstructive uropathy. There is no bowel obstruction. Small amount of gas and urinary bladder catheter are present in the lumen of the bladder. There is no evidence of free fluid. No organized fluid collection or localized inflammation is identified. There is moderate L5-S1 degenerative disc disease most pronounced on the left with grade 1 anterolisthesis of L4 on L5. IMPRESSION: No acute abnormality or significant adverse change is identified. Reviewed: Reviewed by Me, Discussed w/Radiologist Departure Communication (Admissions) 1110--SPOKE WITH DR. QUINONEZ, HOSPITALIST FOR [facility]. ACCEPTS PT FOR ADMIT. O RDERS NOTED. SHE WILL DO ADMIT ORDERS 111--SPOKE WITH DR. SCOTT FOR CARDIOLOGY CONSULT. 1140--DR. QUINONEZ HERE TO SEE PT Impression Primary Impression: NEAR SYNCOPAL EPISODE Additional Impressions: GENERALIZED WEAKNESS AND DIZZINESS Dehydration Hypokalemia Marijuana use BENZODIAZEPINE USE/ABUSE Elevated troponin Leukocytosis Elevated bilirubin ELEVATED CPK AND MYOGLOBIN Sepsis ACUTE TO SUBACUTE CEREBRAL INFARCT Disposition: ADMITTED INPATIENT Condition: Stable Admissions Decision to Admit Reason: Admit from ER (General) Decision to Admit/Date: July 10, 2021 Time/Decision to Admit Time: 11:10 Departure-Patient Inst. [place] [facility] [place] Primary Care Physician OMAR BRAVO APRN (Family) Primary Care Physician Scripts Cefdinir (Cefdinir) 300 Mg Capsule 300 MG PO BID for 5 Days, #10 CAP Prov: JAJA WALDROP MD 07/12/21 Aspirin (Children's Aspirin) 81 Mg Tab.chew 81 MG PO DAILY, #100 TAB 3 Refills Prov: BETHANIE SCOTT JR, MD 07/12/21 Metoprolol Succinate (Metoprolol Succinate) 50 Mg Tab.er.24h 100 MG PO DAILY, #30 TAB 6 Refills Prov: BETHANIE SCOTT JR, MD 07/12/21 Rosuvastatin Calcium (Rosuvastatin Calcium) 20 Mg Tablet 20 MG PO HS, #30 TAB 6 Refills Prov: BETHANIE SCOTT JR, MD 07/12/21 AGAPITO CHONG DO July 10, 2021 09:14
[2021-07-10 09:16] LABS: BASOPHILS % (AUTO) 0 % (0-10); EOSINOPHILS % (AUTO) 0 % (0-10); HEMATOCRIT 49 % (35-52); HEMOGLOBIN 16.8 g/dL (11.5-16.0); LYMPHOCYTES # (AUTO) 1.3 10^3/uL (1.0-4.0); LYMPHOCYTES % (AUTO) 8 % (12-44); MEAN CORPUSCULAR HEMOGLOBIN 31 pg (25-34); MEAN CORPUSCULAR HGB CONC 34 g/dL (32-36); MEAN CORPUSCULAR VOLUME 90 fL (80-99); MEAN PLATELET VOLUME 10.1 fL (9.0-12.2); MONOCYTES # (AUTO) 0.8 10^3/uL (0.0-1.0); MONOCYTES % (AUTO) 5 % (0-12); NEUTROPHILS # (AUTO) 13.3 10^3/uL (1.8-7.8); NEUTROPHILS % (AUTO) 86 % (42-75); PLATELET COUNT 238 10^3/uL (130-400); WHITE BLOOD COUNT 15.4 10^3/uL (4.3-11.0)
[2021-07-10 09:30] LABS: CLARITY,URINE CLOUDY; COLOR,URINE YELLOW; GLUCOSE, URINE (UA) NEGATIVE (NEGATIVE); KETONES,URINE 2+ (NEGATIVE); LEUKOCYTE ESTERASE ,URINE NEGATIVE (NEGATIVE); NITRITE,URINE NEGATIVE (NEGATIVE); PROTEIN,URINE 3+ (NEGATIVE)
[2021-07-10 09:34] LABS: ALBUMIN 4.1 GM/DL (3.2-4.5); CHLORIDE 93 MMOL/L (98-107); POTASSIUM 2.8 MMOL/L (3.6-5.0); SODIUM 135 MMOL/L (135-145)
[2021-07-10 09:35] LABS: CALCIUM 9.4 MG/DL (8.5-10.1)
[2021-07-10 09:36] LABS: AMYLASE 32 U/L (25-125); ERYTHROCYTE SEDIMENTATION RATE 4 MM/HR (0-30); GLUCOSE 115 MG/DL (70-105)
[2021-07-10 09:37] LABS: CARBON DIOXIDE 19 MMOL/L (21-32)
[2021-07-10 09:38] LABS: BILIRUBIN,TOTAL 1.6 MG/DL (0.1-1.0)
[2021-07-10 09:40] LABS: ALKALINE PHOSPHATASE 72 U/L (40-136); CREATININE SERUM 1.08 MG/DL (0.60-1.30); GFR ESTIMATED 58; SALICYLATE < 5.0 MG/DL (5.0-20.0)
[2021-07-10 09:41] LABS: BUN/CREATININE RATIO 24
[2021-07-10 09:42] LABS: AMPHETAMINE SCREEN, URINE NEGATIVE (NEGATIVE); BACTERIA,URINE FEW /HPF; BARBITURATE SCREEN URINE NEGATIVE (NEGATIVE); BENZODIAZEPINES SCREEN URINE POSITIVE (NEGATIVE); BILIRUBIN,URINE 2+ (NEGATIVE); CANNABINOID SCREEN, URINE POSITIVE (NEGATIVE); COCAINE SCREEN URINE NEGATIVE (NEGATIVE); HYALINE CASTS, URINE >50 /LPF; METHADONE STAT NEGATIVE (NEGATIVE); OPIATE SCREEN URINE NEGATIVE (NEGATIVE); OXYCODONE STAT NEGATIVE (NEGATIVE); PROPOXYPHENE STAT NEGATIVE (NEGATIVE); RBC,URINE RARE /HPF; TRICYCLIC ANTIDEPRESSANTS SCRE NEGATIVE (NEGATIVE); WBC,URINE 0-2 /HPF
[2021-07-10 09:43] LABS: ACETAMINOPHEN < 10 UG/ML (10-30); ALANINE AMINOTRANSFERASE 33 U/L (0-55); MAGNESIUM 2.3 MG/DL (1.6-2.4)
[2021-07-10 09:44] LABS: FIBRIN DEGRADATION PRODUCTS 1.28 UG/ML (0.00-0.49); INR 1.1 (0.8-1.4); LIPASE 30 U/L (8-78); PROTHROMBIN TIME PATIENT 14.6 SEC (12.2-14.7)
[2021-07-10 09:56] LABS: CREATINE KINASE 5713 U/L (29-168)
[2021-07-10 10:04] LABS: LYMPHOCYTES % (MANUAL) 10 %; MONOCYTES % (MANUAL) 7 %; NEUTROPHILS % (MANUAL) 83 %; RBC MORPH NORMAL
[2021-07-10 10:10] LABS: CREATINE KINASE MB 27.8 NG/ML (<6.6)
[2021-07-10] MEDS: D5 1/2 NS W/KCL 40 MEQ/L 1,000 ML IV SCH (10:17)
--- NOTE | 2021-07-10 10:53 | Diagnostic Imaging Report ---
EXAMINATION: Chest 1 view HISTORY: hypotension, dyspnea COMPARISON: 01/21/2021 FINDINGS: Heart size and pulmonary vasculature are normal. The lungs are clear without consolidation, pleural effusion, or pneumothorax. The osseous structures are intact. IMPRESSION: 1. No acute radiographic abnormality in the chest. Dictated by: Dictated on workstation # [id number]
--- NOTE | 2021-07-10 10:53 | Diagnostic Imaging Report ---
EXAMINATION: CT head without contrast. TECHNIQUE: Multiple contiguous axial images were obtained through the brain without the use of intravenous contrast. All CT scans use one or more of the following dose optimizing techniques: automated exposure control, MA and/or KvP adjustment based on patient size and exam type or iterative reconstruction. HISTORY: Neuro deficit COMPARISON: 01/21/2021 FINDINGS: Mild diffuse cerebral volume loss with proportional enlargement of the ventricles and sulci. There is hypoattenuation of the left frontal lobe. Stable likely chronic lacunar infarct of the left frontal lobe. No other abnormal attenuation of brain parenchyma is present. No acute intracranial hemorrhage or abnormal extra-axial fluid collections are present. Calcification of the intracranial ICAs. No hyperdense vessel. The calvarium is intact. The mastoid air cells are clear. The visualized paranasal sinuses are clear. The orbits are normal. IMPRESSION: 1. Hypoattenuation of the left frontal lobe which is concerning for acute or subacute infarct. Critical finding. Results communicated to Dr. Mary Georges by Vitaliy Liz at 10:47 AM on 07/10/2021. Dictated by: Dictated on workstation # [id number]
--- NOTE | 2021-07-10 10:56 | Diagnostic Imaging Report ---
PROCEDURE: CT chest, abdomen, and pelvis without contrast. TECHNIQUE: Multiple contiguous axial images were obtained through the chest, abdomen, and pelvis without the use of intravenous contrast. Auto Exposure Controls were utilized during the CT exam to meet ALARA standards for radiation dose reduction. INDICATION: Neurologic deficit with weakness and diarrhea. FINDINGS: There is mild dependent atelectasis and/or scarring in the right lower lobe. Otherwise lungs appear clear. There is no evidence of pathologically enlarged adenopathy in the thorax. There is no significant pleural or pericardial fluid. There is mild coronary artery atherosclerosis. Below the diaphragm, unenhanced images of liver and spleen reveal no focal abnormality. Gallbladder is surgically absent. There is no evidence of pancreatic, adrenal gland or acute renal abnormality. There is no evidence of obstructive uropathy. There is no bowel obstruction. Small amount of gas and urinary bladder catheter are present in the lumen of the bladder. There is no evidence of free fluid. No organized fluid collection or localized inflammation is identified. There is moderate L5-S1 degenerative disc disease most pronounced on the left with grade 1 anterolisthesis of L4 on L5. IMPRESSION: No acute abnormality or significant adverse change is identified. Dictated by: Dictated on workstation # [id number]
[2021-07-10] MEDS ORDERED: cefTRIAXone 1 GM PRE-MIX 50 ML IV ONE (11:30)
[2021-07-10] MEDS ORDERED: AZITHROMYCIN INJECTION 500 MG in NS (IVPB) 250 ML IV ONE (11:30)
--- NOTE | 2021-07-10 11:43 | History & Physical-Hospitalist ---
History of Present Illness HPI/Chief Complaint Chief complaint: Syncopal episode History of present illness: This is a 61-year-old white female with history of illicit drug use and noncompliance with medical therapy who was shopping at [employer] and sustained a syncopal episode. She was assessed to have fecal incontinence of diarrhea and was brought in by EMS. She was found to have slightly elevated troponin and cardiology was consulted. Upon evaluation patient appears to have findings consistent with pneumonia so community-acquired coverage initiated. She will be admitted for aggressive treatment. Source: patient Exam Limitations: no limitations Date Seen 07/10/21 Time Seen by a Provider: 12:30 Attending Physician PCP [place] Referring Physician Date of Admission Home Medications & Allergies Home Medications Reviewed patient Home Medication Reconciliation performed by pharmacy medication reconciliations plasma center technician and/or nursing. Patients Allergies have been reviewed. Allergies Allergies Coded Allergies Iodinated Contrast Media (Verified Allergy, Severe, HIVES, 10/02/17) COUGHING, SNEEZING, HIVES UPON TRACE AMOUNT OF CONTRAST. codeine (Verified Allergy, Intermediate, RASH/SWELLING; PATIENT HAS RECEIVED MORPHINE W/O PROBLEMS, 12/06/16) adhesive tape (Verified Allergy, Unknown, 12/06/16) latex (Verified Allergy, Unknown, 12/06/16) Penicillins (Verified Adverse Reaction, Mild, NAUSEA/VOMITING, 12/07/16) SHE CAN TAKE AUGMENTIN FINE Past Kfktffp-Jhrezm-Gqhtwx Hx Patient Social History Marrital Status: single Employed/Student: unemployed Tobacco Use?: Yes Tobacco type used: Cigarettes Smoking Status: Former Smoker Substance use?: No Substance type: Misuse of prescript meds, Marijuana Additional substance use comme: HISTORY OF RX DRUG ABUSE/OVERDOSES Alcohol Use?: No Immunizations Up To Date Date of Influenza Vaccine: July 25, 2016 Tetanus Booster (TDap): Unknown Hepatitis A: Yes Hepatitis B: Yes PED Vaccines UTD: No Date of Pneumonia Vaccine: July 25, 2016 Seasonal Allergies Seasonal Allergies: Yes Current Status Primary Language: Luxembourger Preferred Spoken Language: Luxembourger Past Medical History Surgeries: Abdominal, Adenoidectomy, Appendectomy, Bowel Surgery, Breast, Cardiac, Gallbladder, Hysterectomy, Oophorectomy, Orthopedic, Renal, Tonsillectomy, Tracheostomy, Tubal Ligation Chronic Bronchitis Currently Using CPAP: No Deep Vein Thrombosis, High Cholesterol, Hypertension, Valvular Heart Disease Headaches /Migraines 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: Hysterectomy, Menopausal Sexually Transmitted Disease: No HIV/AIDS: No Kidney Infection, Bladder Infection, Kidney Stones Gastroesophageal Reflux, Chronic Constipation, Diverticulosis, Polyps Arthritis, Fibromyalgia Diabetes, Non-Insulin dep Dysphagia Loss of Vision: Bilateral Hearing Impairment: Denies Esophageal Did You Recieve Any Treatments: Yes What Type of Treatment Did You: Chemotherapy, Radiation, Surgical Intervention BOTH ESOPHAGEAL AND ORAL-PHARYNGEAL CANCER--S/P SURGERY/CHEMO/RADIATION DX IN 2010--COMPLETED TX IN 2013 HAD PEG TUBE, TRACH AND PORT--ALL REMOVED Sleep Difficulties, Anxiety, Suicide Attempts, Bipolar, Depression Blood Disorders: No Adverse Reaction/Blood Tranf: No Family Medical History Alzheimer's disease 19 MOTHER Arthritis 19 MOTHER Cardiovascular disease 19 MOTHER Cataracts 19 MOTHER Dementia 19 MOTHER Diabetes mellitus 19 FATHER Headache disorder Hypercholesterolemia 19 FATHER Hypertension 19 FATHER Neoplasm 19 FATHER (PANCREATIC CANCER) Heart Disease, Cancer, Hypertension, Psychiatric Problems SOCIAL HISTORY: -SMOKED 1 PPD X 30 YEARS, QUIT 1986 -ETOH--OCCASIONAL USE -DRUGS--HX OF RX DRUG ABUSE AND OVERDOSES, THC USE PAST SURGICAL HISTORY: -MODIFIED RADICAL NECK DISSECTION FOR OROPHARYNGEAL CANCER -ALSO HAD SURGERY FOR ESOPHAGEAL CANCER -PEG TUBE--LATER REMOVED -TRACHEOSTOMY--LATER REMOVED -PORT PLACE--LATER REMOVED -MULTIPLE EGD'S/COLONOSCOPIES/ESOPHAGEAL DILATIONS/POLYPECTOMIES -COLON RESECTION FOR DIVERTICULAR DISEASE -BUNIONECTOMY -CARDIAC CATH--NO INTERVENTION -BREAST REDUCTION -CYSTOSCOPIES, URETERAL STENT; KIDNEY STONE REMOVAL -TONSILLECTOMY/ADENOIDECTOMY -APPENDECTOMY -CHOLECYSTECTOMY -HYSTERECTOMY/BILATERAL SALPINGO-OOPHORECTOMY -BILATERAL TUBAL LIGATION -TEETH REMOVED PAST SURGICAL HISTORY: - Review of Systems Constitutional: see HPI, dizziness EENTM: no symptoms reported Respiratory: no symptoms reported Cardiovascular: no symptoms reported Gastrointestinal: no symptoms reported Genitourinary: no symptoms reported Musculoskeletal: no symptoms reported Skin: no symptoms reported Psychiatric/Neurological: No Symptoms Reported All Other Systems Reviewed Negative Unless Noted: Yes Physical Exam Physical Exam Vital Signs Vital Signs - First Documented 07/10/21 07/10/21 08:50 12:55 Temp 36.0 Pulse 98 Resp 20 B/P (MAP) 121/89 (100) Pulse Ox 95 O2 Delivery Room Air Capillary Refill : Less Than 3 Seconds Height, Weight, BMI Height: 5'7.00" Weight: 190lbs. 0oz. [id number]; 20.00 BMI Method:Stated General Appearance: No Apparent Distress, Chronically ill Eyes: Right Eye Normal Inspection, Right Eye PERRL HEENT: PERRL/EOMI, Normal ENT Inspection, Pharynx Normal, Moist Mucous Membranes Neck: Full Range of Motion, Normal Inspection, Non Tender Respiratory: Chest Non Tender, Normal Breath Sounds, No Accessory Muscle Use, No Respiratory Distress, Decreased Breath Sounds Cardiovascular: Regular Rate, Rhythm, No Edema, No Gallop, No JVD, No Murmur, Normal Peripheral Pulses Gastrointestinal: Normal Bowel Sounds, No Organomegaly, No Pulsatile Mass, Non Tender, Soft Back: Normal Inspection, No CVA Tenderness, No Vertebral Tenderness Extremity: Normal Capillary Refill, Normal Inspection, Normal Range of Motion, Non Tender, No Calf Tenderness, No Pedal Edema Neurologic/Psychiatric: Alert, Oriented x3, No Motor/Sensory Deficits, Normal Mood/Affect Skin: Normal Color, Warm/Dry Lymphatic: No Adenopathy Results Results/Procedures Labs Laboratory Tests 07/10/21 09:05 07/11/21 05:59 Patient resulted labs reviewed. Assessment/Plan Admission Diagnosis Assessment: Syncopal episode Elevated troponin of uncertain etiology possible type II non-STEMI Pneumonia Leukocytosis History of illicit drug use Plan: Supportive care Antibiotics Cardiology consult Admission Status: Inpatient Order (span 2 midnights) Reason for Inpatient Admission: Syncope with pneumonia and elevated troponin Clinical Quality Measures AMI/AHF: ASA po Prior to arrival: WALDO Trammell DO July 10, 2021 11:43
[2021-07-10] MEDS ORDERED: ONDANSETRON 4 MG/2 ML (SDV) Z0FRAN IVP ONE (12:30)
[2021-07-10] MEDS ORDERED: ANTACID SUSP 30 ML UDC (MYLANTA) PO PRN (12:45)
[2021-07-10] MEDS ORDERED: morphine INJ 4 MG/ML 1 ML (VIAL/SYRINGE) IV PRN (12:45)
[2021-07-10] MEDS ORDERED: ONDANSETRON 4 MG/2 ML (SDV) Z0FRAN IV PRN (12:45)
[2021-07-10] MEDS ORDERED: diphenhydrAMINE 50 MG/ML INJ (BENADRYL) IVP PRN (12:45)
[2021-07-10] MEDS ORDERED: ONDANSETRON 4 MG (ZOFRAN) ORAL DISSOLVE TAB PO PRN (12:45)
[2021-07-10] MEDS ORDERED: NALOXONE 0.4 MG/ML 1 ML (NARCAN) VIAL IV PRN (12:45)
[2021-07-10] MEDS ORDERED: PATIENT MAY USE OWN MEDS, ALL PO SCH (12:45)
[2021-07-10] MEDS ORDERED: ACETAMINOPHEN 325 MG TABLET PO PRN (12:45)
[2021-07-10] MEDS ORDERED: LACTULOSE SYRUP 10GM/15ML (ENULOSE) 30ML UDC PO PRN (12:45)
[2021-07-10] MEDS ORDERED: MELATONIN 3 MG TABLET PO PRN (12:45)
[2021-07-10] MEDS ORDERED: diphenhydrAMINE 25 MG TAB (BENADRYL) PO PRN (12:45)
[2021-07-10] MEDS ORDERED: polyethylene glycoL POWDER 17 GM (MIRALAX) PACK PO PRN (12:45)
[2021-07-10] MEDS ORDERED: BISACODYL 10 MG SUPP (DULCOLAX) PR PRN (12:45)
[2021-07-10] MEDS ORDERED: MILK OF MAGNESIA 400 MG/5 ML 30 ML UDC PO PRN (12:45)
[2021-07-10] MEDS ORDERED: CALCIUM CARBONATE 500 MG (TUMS) TAB.CHEW PO PRN (12:45)
[2021-07-10] MEDS: NS IV 1000 ML 1,000 ML IV SCH ×2 (13:03→22:34)
[2021-07-10 13:14] VITALS: BP 121/89
[2021-07-10] MEDS: ALPRAZolam 0.5 MG (XANAX) TAB PO PRN ×2 (13:15→20:01)
[2021-07-10] MEDS ORDERED: RT-ALBUTEROL/IPRATROPIUM 3 ML (DUONEB) VIAL INH PRN (13:30)
[2021-07-10] MEDS ORDERED: AZITHROMYCIN INJECTION 500 MG in NS (IVPB) 250 ML IV NR (13:30)
[2021-07-10] MEDS ORDERED: ENOXAPARIN 40 MG/0.4 ML (LOVENOX) SYR SC SCH (14:00)
--- NOTE | 2021-07-10 14:57 | Physical Therapy Evaluation ---
PT Evaluation-General Medical Diagnosis Admission Date July 10, 2021 at 11:22 Medical Diagnosis: Abdominal/GI Problems Onset Date: July 10, 2021 Therapy Diagnosis Therapy Diagnosis: Gait deficit, strength deficit Height/Weight Height (Feet): 5 Height (Inches): 7.00 Weight (Pounds): 190 Weight (Ounces): 0 Precautions Precautions/Isolations: Fall Prevention, Standard Precautions Weight Bear Status Right Lower Extremity: Right Full Weight Bearing Left Lower Extremity: Left Full Weight Bearing Referral Physician: Dr. Baird Reason for Referral: Evaluation/Treatment Medical History Pertinent Medical History: Arthritis, DM, GERD, HTN Social History Home: Apartment Current Living Status: Alone Entry Into Home: Level Entry Prior Prior Level of Function SCALE: Activities may be completed with or without assistive devices. 5-Sinswvixxz-ahweheu completes the activity by him/herself with no assistance from a helper. 5-Set-up or Clean-up Assistance-helper sets up or cleans up; patient completes activity. [place] assists only prior to or following the activity. 4-Supervision or Touching Assistance-helper provides verbal cues and/or t ouching/steadying and/or contact guard assistance as patient completes activity. Assistance may be provided throughout the activity or intermittently. 3-Partial/Moderate Assistance-helper does LESS THAN HALF the effort. [place] lifts, holds or supports trunk or limbs, but provides less than half the effort. 2-Substantial/Maximal Assistance-helper does MORE THAN HALF the effort. [place] lifts or holds trunk or limbs and provides more than half the effort. 9-Tdxhdzvni-fjeyxg does ALL the effort. Patient does none of the effort to complete the activity. Or, the assistance of 2 or more helpers is required for the patient to complete the activity. If activity was not attempted, code reason: 7-Patient Refused. 9-Not Applicable-not attempted and the patient did not perform the activity before the current illness, exacerbation or injury. 10-Not Attempted due to Environmental Limitations-(lack of equipment, weather restraints, etc.). 88-Not Attempted due to Medical Conditions or Safety Concerns. Bed Mobility: 6 Transfers (B,C,W/C): 6 Gait: 6 Stairs: 6 Indoor Mobility (Ambulation): Independent Stairs: Independent Prior Devices Use: None PT Evaluation-Current Subjective Patient lying supine in bed upon PT arrival, agreeable to treatment. Rates pain at 0/10. Objective Patient Orientation: Person, Place, Time, Situation Attachments: [place] Catheter, IV ROM/Strength ROM Lower Extremities WFLs bilaterally Strength Lower Extremities 3+/5 bilaterally all planes Sensory Vision: Functional Hearing: Functional Sensation Right Lower Extremit: Intact Sensation Left Lower Extremity: Intact Transfers Roll Left to Right (QC): 4 Sit to Lying (QC): 4 Lying to Sitting/Side of Bed(Q: 4 Sit to Stand (QC): 4 Chair/Srp-ty-Xrqzy Xfer(QC): 4 Toilet Transfer (QC): 4 Gait Does the Patient Walk?: Yes Mode of Locomotion: Walk Anticipated Mode of Locomotion: Walk Walk 10 feet (QC): 4 Walk 50 ft with 2 Turns(QC): 4 Walk 150 ft (QC): 4 Distance: 120 Gait Assistive Device: None Balance Sitting Static: Good Sitting Dynamic: Good Standing Static: Fair Standing Dynamic: Fair Assessment/Needs Patient tolerated treatment fair. She performs all observed bed mobility and transfers with SBA. Patient ambulates 120 feet with no assistive device and SBA, however reports increased dizziness and weakness at midpoint of gait. Patient in bed post treatment with all needs met, nurse in the room and call light in reach. Rehab Potential: Good PT Nursing Home Goals Nursing Home Goals PT Nursing Home Goals Time Frame: July 31, 2021 Roll Left & Right (QC): 6 Sit to Lying (QC): 6 Lying-Sitting on Side/Bed(QC): 6 Sit to Stand (QC): 6 Chair/Rrb-ki-Kltey Xfer(QC): 6 Toilet Transfer (QC): 6 Does the Patient Walk: Yes Walk 10 feet (QC): 6 Walk 50ft with 2 Turns (QC): 6 Walk 150 ft (QC): 6 4 Steps (QC): 6 PT Plan Problem List Problem List: Activity Tolerance, Functional Strength, Safety, Balance, Gait, Transfer, Bed Mobility, ROM Treatment/Plan Treatment Plan: Continue Plan of Care Treatment Plan: Bed Mobility, Education, Functional Activity Hilario, Functional Strength, Gait, Safety, Therapeutic Exercise, Transfers Treatment Duration: Aug 28, 2021 Frequency: 6 times per week Estimated Hrs Per Day: .25 hour per day Patient and/or Family Agrees t: Yes Safety Risks/Education Patient Education: Gait Training Teaching Recipient: Patient Teaching Methods: Demonstration, Discussion Response to Teaching: Verbalize Understanding, Return Demonstration Time/GCodes Time In: 1323 Time Out: 1337 Total Billed Treatment Time: 14 Total Billed Treatment Visit, ROBERTA Magdaleno PT July 10, 2021 14:57
[2021-07-10 16:07] VITALS: BP 135/94
[2021-07-10 19:35] VITALS: BP 146/70
[2021-07-10] MEDS: DOCUSATE SODIUM 100 MG (COLACE) CAP PO SCH (20:04)
[2021-07-10] MEDS: SENNOSIDES 8.6 MG (SENOKOT) TAB PO SCH (20:04)
[2021-07-10 23:21] VITALS: BP 135/77
[2021-07-10 23:45] VITALS: BP 135/77
[2021-07-11 04:06] VITALS: BP 169/74
[2021-07-11] MEDS: ALPRAZolam 0.5 MG (XANAX) TAB PO PRN ×3 (04:19→19:51)
[2021-07-11] MEDS: NS IV 1000 ML 1,000 ML IV SCH ×2 (06:08→12:33)
[2021-07-11 06:27] LABS: BASOPHILS % (AUTO) 0 % (0-10); EOSINOPHILS % (AUTO) 0 % (0-10); HEMATOCRIT 40 % (35-52); HEMOGLOBIN 13.6 g/dL (11.5-16.0); LYMPHOCYTES # (AUTO) 0.9 10^3/uL (1.0-4.0); LYMPHOCYTES % (AUTO) 11 % (12-44); MEAN CORPUSCULAR HEMOGLOBIN 31 pg (25-34); MEAN CORPUSCULAR HGB CONC 34 g/dL (32-36); MEAN CORPUSCULAR VOLUME 91 fL (80-99); MEAN PLATELET VOLUME 9.7 fL (9.0-12.2); MONOCYTES # (AUTO) 0.5 10^3/uL (0.0-1.0); MONOCYTES % (AUTO) 6 % (0-12); NEUTROPHILS # (AUTO) 6.9 10^3/uL (1.8-7.8); NEUTROPHILS % (AUTO) 82 % (42-75); PLATELET COUNT 170 10^3/uL (130-400); WHITE BLOOD COUNT 8.4 10^3/uL (4.3-11.0)
[2021-07-11 06:48] LABS: ALBUMIN 3.2 GM/DL (3.2-4.5)
[2021-07-11 06:50] LABS: CALCIUM 8.1 MG/DL (8.5-10.1)
[2021-07-11 06:51] LABS: TOTAL PROTEIN 5.2 GM/DL (6.4-8.2)
[2021-07-11 06:53] LABS: BILIRUBIN,TOTAL 0.9 MG/DL (0.1-1.0)
[2021-07-11 06:55] LABS: CREATININE SERUM 0.74 MG/DL (0.60-1.30)
--- NOTE | 2021-07-11 06:55 | Progress Note - Hospitalist ---
Subjective HPI/CC On Admission Date Seen by Provider: July 11, 2021 Time Seen by Provider: 10:00 Chief complaint: Syncopal episode History of present illness: This is a 61-year-old white female with history of illicit drug use and noncompliance with medical therapy who was shopping at [employer] and sustained a syncopal episode. She was assessed to have fecal incontinence of diarrhea and was brought in by EMS. She was found to have slightly elevated troponin and cardiology was consulted. Upon evaluation patient appears to have findings consistent with pneumonia so community-acquired coverage initiated. She will be admitted for aggressive treatment. Subjective/Events-last exam Patient feels better Dr. Duarte will see since she did not follow-up for a loop recorder to evaluate etiology of syncope Patient denies any new issues Hep locking IV fluid Supportive care will continue Review of Systems General: Fatigue, Malaise Focused Exam Lactate Level 07/10/21 09:32: Lactic Acid Level 3.10*H 07/10/21 11:33: Lactic Acid Level 1.37 Time of Focused Exam: 11:00 Objective Exam Vital Signs Vital Signs Date Time Temp Pulse Resp B/P (MAP) Pulse Ox O2 Delivery O2 Flow Rate FiO2 07/12/21 01:00 65 07/12/21 00:03 35.8 18 142/67 (92) 96 Room Air 07/11/21 08:00 0.00 Capillary Refill : Less Than 3 Seconds General Appearance: No Apparent Distress, WD/WN, Chronically ill Respiratory: Lungs Clear, Normal Breath Sounds, Decreased Breath Sounds Cardiovascular: Regular Rate, Rhythm Neurologic/Psychiatric: Alert, Oriented x3, No Motor/Sensory Deficits, Normal Mood/Affect Results/Procedures Lab Laboratory Tests 07/11/21 05:59 Patient resulted labs reviewed. Assessment/Plan Assessment and Plan Assess & Plan/Chief Complaint Assessment: Syncopal episode Elevated troponin of uncertain etiology possible type II non-STEMI Pneumonia Leukocytosis History of illicit drug use Plan: Supportive care Antibiotics Cardiology consult 07/11/2021: Supportive care Antibiotics Cardiology consult for loop recorder Clinical Quality Measures AMI/AHF: ASA po Prior to arrival: WALDO Trammell DO July 11, 2021 06:55
[2021-07-11] MEDS ORDERED: MAGNESIUM 1 GM/100 ML IVPB 100 ML IV ONE (07:00)
[2021-07-11] MEDS: D5 1/2 NS W/KCL 40 MEQ/L 1,000 ML IV SCH (07:46)
[2021-07-11] MEDS: POTASSIUM CL 10MEQ/50ML IVPB 50 ML IV SCH ×3 (07:47→10:33)
[2021-07-11] MEDS: AZITHROMYCIN 250 MG TAB (ZITHROMAX) PO SCH (07:55)
[2021-07-11] MEDS: ASPIRIN 81 MG CHEW (CHILDREN'S ASA) PO SCH (07:55)
[2021-07-11] MEDS: SENNOSIDES 8.6 MG (SENOKOT) TAB PO SCH ×3 (07:55→21:56)
[2021-07-11] MEDS: DOCUSATE SODIUM 100 MG (COLACE) CAP PO SCH ×3 (07:55→21:56)
[2021-07-11] MEDS: ENOXAPARIN 60 MG/0.6 ML (LOVENOX) SYR SC SCH ×2 (07:56→18:22)
[2021-07-11 08:01] VITALS: BP 148/67
[2021-07-11] MEDS ORDERED: REGADENOSON 0.4 MG/5 ML SYR (LEXISCAN) IV NR (11:30)
[2021-07-11] MEDS ORDERED: meTOproloL SUCCINATE 50 MG (TOPROL XL) TAB PO NR (11:30)
--- NOTE | 2021-07-11 11:33 | Consultation-Cardiology ---
HPI-Cardiology Cardiology Consultation: Date of Consultation 07/11/21 Date of Admission 07/10/21 Attending Physician Soni Baird DO Admitting Physician [place]/[facility] Consulting Physician BETHANIE SCOTT JR, MD HPI: Time Seen by a Provider: 11:28 Chief Complaint: REASON FOR CONSULTATION: Abnormal troponin. I had the pleasure of seeing Bethany on the medical/surgical unit at [facility] in [place], [place] today. She is known to me from a previous hospitalization. She tells me that yesterday she was at home and became extremely dizzy and lightheaded. She fell down on the floor because she was so weak. She is not entirely sure if she had lost consciousness. Because of the fall, she came to the hospital for further evaluation. During her evaluation in the emergency room, she was found to have an elevated troponin level and a cardiology consultation was requested. She does have chronic intermittent dyspnea which she states has been unchanged. She denies any significant chest discomfort. She denies paroxysmal nocturnal dyspnea, orthopnea, palpitations, or lower extremity edema. She has not been taking her blood pressure or cholesterol medication because she has been having some difficulty getting refills from her primary provider. I had seen her in the hospital in January 2021 following a syncopal spell and I had asked her to see me in the office and also get a 30-day event recorder. However, she states she never did either of these due to lack of insurance. She also reports weight loss over the past 6-12 months due to poor appetite. Certain portions of this document may have been dictated utilizing voice recognition technology. Inherent to this technology, typographical and gramm atical errors may exist. As much as I am diligent to identify and correct these mistakes, some errors may remain in the document. Review of Systems-Cardiology Review of Systems Other comments Review of 10 organ systems is as per the history of present illness, otherwise negative. All Other Systems Reviewed Negative Unless Noted: Yes BTE-Adrwbx-Drbvil Hx Patient Social History Marrital Status: single Employed/Student: unemployed Smoking Status: Former Smoker Former smoker/When Quit: Dec 05, 1990 2nd Hand Smoke Exposure: No Have you traveled recently?: No Alcohol Use?: No Substance type: Marijuana Pt feels they are or have been: No Tobacco type used: Cigarettes Immunizations Up To Date Tetanus Booster (TDap): Less than 5yrs Date of Pneumonia Vaccine: July 25, 2016 Date of Influenza Vaccine: July 25, 2016 Past Medical History PMH As described under Assessment. Family Medical History Family Medical History: The patient does not know of any family history of premature coronary artery disease in first-degree relatives. Family History: Alzheimer's disease 19 MOTHER Arthritis 19 MOTHER Cardiovascular disease 19 MOTHER Cataracts 19 MOTHER Dementia 19 MOTHER Diabetes mellitus 19 FATHER Headache disorder Hypercholesterolemia 19 FATHER Hypertension 19 FATHER Neoplasm 19 FATHER (PANCREATIC CANCER) Allergies and Home Medications Allergies Coded Allergies: Iodinated Contrast Media (Verified Allergy, Severe, HIVES, 10/02/17) COUGHING, SNEEZING, HIVES UPON TRACE AMOUNT OF CONTRAST. codeine (Verified Allergy, Intermediate, RASH/SWELLING; PATIENT HAS RECEIVED MORPHINE W/O PROBLEMS, 12/06/16) adhesive tape (Verified Allergy, Unknown, 12/06/16) latex (Verified Allergy, Unknown, 12/06/16) Penicillins (Verified Adverse Reaction, Mild, NAUSEA/VOMITING, 12/07/16) SHE CAN TAKE AUGMENTIN FINE Patient Home Medication List Home Medication List Reviewed: Yes Trazodone HCl (Trazodone HCl) 100 Mg Tablet, 100 MG PO HS, (Reported) Entered as Reported by: BLESSING MAZA on 01/21/21 1556 Last Action: Reviewed [Latuda ] 60 TAB, 60 MG PO HS, (Reported) Entered as Reported by: BLESSING MAZA on 01/21/21 1556 Last Action: Reviewed Discontinued Medications Cefdinir (Cefdinir) 300 Mg Capsule, 300 MG PO BID Discontinued Reason: No Longer Taking Prescribed by: SONI BAIRD on 01/23/21 1059 Last Action: Discontinued Exam Vital Signs Vital Signs Date Time Temp Pulse Resp B/P (MAP) Pulse Ox O2 Delivery O2 Flow Rate FiO2 07/11/21 08:01 36.3 73 18 148/67 (94) 96 Room Air 07/11/21 08:00 0.00 Physical Exam General: Alert. No acute distress. Well nourished and appears stated age. She appears older than her stated age. Eye: Extraocular movements are intact. Conjunctivae are clear. There are no xanthelasma. HENT: Normocephalic. Atraumatic. Carotid pulsations 2/2 without bruits. Neck: Jugular venous pressure does not appear elevated. No thyromegaly appreciated. Respiratory: Lungs are clear to auscultation. Respirations are non-labored. Breath sounds are equal. Symmetrical chest wall expansion. Cardiovascular: Normal rate. Regular rhythm. 2/6 systolic ejection murmur. No gallop. Point of maximal impulse is not appear displaced. Good pulses equal in all extremities. No edema. Gastrointestinal: Soft. Normal bowel sounds. Skin: Skin turgor is normal. There is no pallor. Musculoskeletal: No kyphosis or scoliosis appreciated. Neurologic: Alert and oriented to person, place, time. Cranial nerves 3-12 appear grossly intact. The patient has good motor tone strength in the upper and lower extremities bilaterally. Psychiatric: Cooperative. Appropriate mood & affect. Labs Laboratory Tests Test 07/10/21 11:33 07/10/21 15:10 07/11/21 05:59 Range/Units Lactic Acid Level 1.37 0.50-2.00 MMOL/L TSH Jackson Testing 1.90 0.35-4.94 UIU/ML Troponin I 1.187 *H <0.028 NG/ML White Blood Count 8.4 4.3-11.0 10^3/uL Red Blood Count 4.46 3.80-5.11 10^6/uL Hemoglobin 13.6 11.5-16.0 g/dL Hematocrit 40 35-52 % Mean Corpuscular Volume 91 80-99 fL Mean Corpuscular Hemoglobin 31 25-34 pg Mean Corpuscular Hemoglobin Concent 34 32-36 g/dL Red Cell Distribution Width 15.3 H 10.0-14.5 % Platelet Count 170 130-400 10^3/uL Mean Platelet Volume 9.7 9.0-12.2 fL Immature Granulocyte % (Auto) 0 % Neutrophils (%) (Auto) 82 H 42-75 % Lymphocytes (%) (Auto) 11 L 12-44 % Monocytes (%) (Auto) 6 0-12 % Eosinophils (%) (Auto) 0 0-10 % Basophils (%) (Auto) 0 0-10 % Neutrophils # (Auto) 6.9 1.8-7.8 10^3/uL Lymphocytes # (Auto) 0.9 L 1.0-4.0 10^3/uL Monocytes # (Auto) 0.5 0.0-1.0 10^3/uL Eosinophils # (Auto) 0.0 0.0-0.3 10^3/uL Basophils # (Auto) 0.0 0.0-0.1 10^3/uL Immature Granulocyte # (Auto) 0.0 0.0-0.1 10^3/uL Sodium Level 140 135-145 MMOL/L Potassium Level 3.0 L 3.6-5.0 MMOL/L Chloride Level 102 98-107 MMOL/L Carbon Dioxide Level 26 21-32 MMOL/L Anion Gap 12 5-14 MMOL/L Blood Urea Nitrogen 16 7-18 MG/DL Creatinine 0.74 0.60-1.30 MG/DL Estimat Glomerular Filtration Rate 91 BUN/Creatinine Ratio 22 Glucose Level 86 70-105 MG/DL Calcium Level 8.1 L 8.5-10.1 MG/DL Corrected Calcium 8.7 8.5-10.1 MG/DL Magnesium Level 2.0 1.6-2.4 MG/DL Total Bilirubin 0.9 0.1-1.0 MG/DL Aspartate Amino Transf (AST/SGOT) 70 H 5-34 U/L Alanine Aminotransferase (ALT/SGPT) 18 0-55 U/L Alkaline Phosphatase 48 40-136 U/L Total Protein 5.2 L 6.4-8.2 GM/DL Albumin 3.2 3.2-4.5 GM/DL Triglycerides Level 177 H <150 MG/DL Cholesterol Level 208 H < 200 MG/DL LDL Cholesterol Direct 141 H 1-129 MG/DL VLDL Cholesterol 35 5-40 MG/DL HDL Cholesterol 37 L 40-60 MG/DL Radiology ECHOCARDIOGRAM (01/22/2021): 1. Left ventricle: The cavity size is normal. There is severe concentric hypertrophy. Systolic function is hyperdynamic. The estimated ejection fraction is 70-75%. There were no regional wall motion abnormalities identified. The left ventricular diastolic function is indeterminate. 2. Aortic valve: There is mild aortic stenosis with a mean gradient of 17 mmHg, a peak gradient of 30 mmHg and peak velocity of 2.7 m/s. 3. Pericardium, extracardiac: A trivial pericardial effusion is identified anterior to the heart. 4. Pulmonary arteries: The estimated pulmonary artery systolic pressure is 20 mmHg assuming a right atrial pressure of 5 mmHg. ECG Impression ECG Comment Electrocardiogram from the emergency room on 07/10 shows sinus rhythm with left atrial abnormality, prominent voltages, and nonspecific lateral T wave changes. Diagnosis/Problems Diagnosis/Problems (1) Elevated troponin Status: Acute Assessment & Plan: She has an elevated troponin level but no symptoms of angina and no obvious ischemic changes on her electrocardiogram. Her troponin level has trended downwards. She would be somewhat of a poor candidate for an invasive evaluation due to her history of noncompliance. I recommend a nuclear stress test for further evaluation. She was already prescribed aspirin. I will start beta-caryn and statin medication as well. (2) Acute cerebrovascular accident Assessment & Plan: Unclear whether or not this had anything to do with her fall. She has been started on aspirin. I will also start statin medication which she was supposed to be taking at home. (3) Primary hypertension Assessment & Plan: Blood pressures are intermittently elevated. I will start her on a beta-caryn. She does have a previous history of orthostatic hypotension so we do need to be cautious with antihypertensive medication. (4) Mixed hyperlipidemia Assessment & Plan: Her LDL level is elevated. She also has acute/subacute stroke and an abnormal troponin level consistent with possible myocardial injury. I will start statin medication. (5) Syncope Assessment & Plan: Unclear whether or not she had syncope or just was very weak and collapsed onto the floor. I had previously recommended an event recorder after her hospitalization in January 2021. We can readdress this following discharge. (6) Aortic stenosis Assessment & Plan: Her previous echocardiogram showed mild aortic stenosis. This should not be causing symptoms but will need to be followed. BETHANIE SCOTT JR, MD July 11, 2021 11:33
[2021-07-11 11:43] VITALS: BP 125/58
[2021-07-11] MEDS: cefTRIAXone 1 GM PRE-MIX 50 ML IV SCH (12:33)
[2021-07-11 15:45] VITALS: BP 123/61
[2021-07-11 19:23] VITALS: BP 139/63
[2021-07-11] MEDS ORDERED: ROSUVASTATIN 20 MG (CRESTOR) TABLET PO SCH (21:00)
[2021-07-12 00:03] VITALS: BP 142/67
[2021-07-12 04:00] VITALS: BP 133/67
[2021-07-12 05:30] LABS: BASOPHILS % (AUTO) 0 % (0-10); EOSINOPHILS % (AUTO) 0 % (0-10); HEMATOCRIT 38 % (35-52); HEMOGLOBIN 12.5 g/dL (11.5-16.0); LYMPHOCYTES % (AUTO) 18 % (12-44); MEAN CORPUSCULAR HEMOGLOBIN 31 pg (25-34); MEAN CORPUSCULAR HGB CONC 33 g/dL (32-36); MEAN CORPUSCULAR VOLUME 93 fL (80-99); MEAN PLATELET VOLUME 9.5 fL (9.0-12.2); MONOCYTES # (AUTO) 0.4 10^3/uL (0.0-1.0); MONOCYTES % (AUTO) 7 % (0-12); NEUTROPHILS # (AUTO) 3.8 10^3/uL (1.8-7.8); NEUTROPHILS % (AUTO) 74 % (42-75); PLATELET COUNT 169 10^3/uL (130-400); WHITE BLOOD COUNT 5.2 10^3/uL (4.3-11.0)
[2021-07-12 05:56] LABS: BILIRUBIN,TOTAL 0.4 MG/DL (0.1-1.0); CALCIUM 8.2 MG/DL (8.5-10.1); CREATININE SERUM 0.57 MG/DL (0.60-1.30); POTASSIUM 3.3 MMOL/L (3.6-5.0); TOTAL PROTEIN 4.9 GM/DL (6.4-8.2)
[2021-07-12] MEDS: ENOXAPARIN 60 MG/0.6 ML (LOVENOX) SYR SC SCH (06:05)
[2021-07-12 07:30] VITALS: BP 144/76
[2021-07-12] MEDS ORDERED: meTOproloL SUCCINATE 50 MG (TOPROL XL) TAB PO SCH (09:00)
--- NOTE | 2021-07-12 09:15 | Progress Note - Hospitalist ---
DELVIS ESTRADA A MED STUDENT 07/12/21 0915: Subjective HPI/CC On Admission Chief complaint: Syncopal episode History of present illness: This is a 61-year-old white female with history of illicit drug use and noncompliance with medical therapy who was shopping at [employer] and sustained a syncopal episode. She was assessed to have fecal incontinence of diarrhea and was brought in by EMS. She was found to have slightly elevated troponin and cardiology was consulted. Upon evaluation patient appears to have findings consistent with pneumonia so community-acquired coverage initiated. She will be admitted for aggressive treatment. Subjective/Events-last exam Pt reports feeling better this morning. Nurse reports she has been up walking the halls with no difficulty. Pt denies any fever, chills, SOA, cough, N/V/D, abdominal pain, dysuria or urinary frequency. Last BM was Monday. Pt denies decreased appetite, but has recent hx of weight loss. Pt reports she is to have a stress test today, ordered by cardiology. She inquired about what happens after the stress test and if she will get to go home. Review of Systems General: No Chills, No Fatigue HEENT: No Head Aches, No Visual Changes Pulmonary: No Dyspnea, No Cough Cardiovascular: No: Chest Pain, Palpitations Gastrointestinal: No: Nausea, Vomiting Genitourinary: No Dysuria, No Frequency Musculoskeletal: No: neck pain, back pain Neurological: No: Weakness, Numbness Focused Exam Lactate Level 07/10/21 09:32: Lactic Acid Level 3.10*H 07/10/21 11:33: Lactic Acid Level 1.37 Time of Focused Exam: 11:00 Objective Exam Vital Signs Vital Signs Date Time Temp Pulse Resp B/P (MAP) Pulse Ox O2 Delivery O2 Flow Rate FiO2 07/12/21 07:30 36.7 71 18 144/76 (98) 97 Room Air 07/11/21 08:00 0.00 Capillary Refill : Less Than 3 Seconds General Appearance: No Apparent Distress, Thin HEENT: PERRL/EOMI, Normal ENT Inspection Neck: Full Range of Motion, Normal Inspection Respiratory: Chest Non Tender, Lungs Clear, Normal Breath Sounds, No Accessory Muscle Use, No Respiratory Distress Cardiovascular: Regular Rate, Rhythm, No Edema, Normal Peripheral Pulses Gastrointestinal: Normal Bowel Sounds, No Organomegaly, No Pulsatile Mass, Non Tender, Soft Rectal: Deferred Back: Normal Inspection Extremity: Normal Capillary Refill, Normal Inspection, Non Tender, No Calf Tenderness, No Pedal Edema Neurologic/Psychiatric: Alert, Oriented x3, No Motor/Sensory Deficits, Normal 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 Assessment/Plan Assessment and Plan Assess & Plan/Chief Complaint Sepsis d/t UTI NSTEMI Acute vs. Subacute infarct Diabetes HTN Hyperlipidemia Hx of esophageal carcinoma Hx of drug abuse Sepsis d/t UTI -Urine culture grew E.coli -On ceftriaxone currently, consider switching to Bactrim NSTEMI -Cardiology consulted -Stress test scheduled for today -If no abnormalities, consider d/c today Acute vs. Subacute infarct -Allergic to contrast media so CT unable to be done. Consider MRI as outpatient -Neurological exam within normal limits Diabetes -SSI HTN -Cardiology started metoprolol Hyperlipidemia -Cardiology started statin Recent weight loss -Dietary consult Hx of esophageal carcinoma Hx of drug abuse DVT prophylaxis-Lovenox Diet- Regular Clinical Quality Measures AMI/AHF: ASA po Prior to arrival: No JAJA BUCHANAN MD 07/12/21 1534: Supervisory-Addendum Brief Verification & Attestation Participated in pt care: history, physical Personally performed: exam, history Care discussed with: Medical Student Procedures: n/a Verification and Attestation of Medical Student E/M Service A medical student performed and documented this service in my presence. I revi ewed and verified all information documented by the medical student and made modifications to such information, when appropriate. I personally performed the physical exam and medical decision making. Jaja Buchanan, July 12, 2021,15:34 DELVIS ESTRADA MED STUDENT July 12, 2021 09:15 JAJA BUCHANAN MD July 12, 2021 15:34
--- NOTE | 2021-07-12 10:09 | Physical Therapy Daily Note ---
PT Daily Note-Current Subjective Patient agrees to PT. No c/o at this time. Mental Status Patient Orientation: Normal For Age Transfers SCALE: Activities may be completed with or without assistive devices. 4-Ctflamvbjr-ukiaacf completes the activity by him/herself with no assistance from a helper. 5-Set-up or Clean-up Assistance-helper sets up or cleans up; patient completes activity. [place] assists only prior to or following the activity. 4-Supervision or Touching Assistance-helper provides verbal cues and/or touching/steadying and/or contact guard assistance as patient completes activity. Assistance may be provided throughout the activity or intermittently. 3-Partial/Moderate Assistance-helper does LESS THAN HALF the effort. [place] lifts, holds or supports trunk or limbs, but provides less than half the effort. 2-Substantial/Maximal Assistance-helper does MORE THAN HALF the effort. [place] lifts or holds trunk or limbs and provides more than half the effort. 9-Rwfsuetgg-agnfjh does ALL the effort. Patient does none of the effort to complete the activity. Or, the assistance of 2 or more helpers is required for the patient to complete the activity. If activity was not attempted, code reason: 7-Patient Refused. 9-Not Applicable-not attempted and the patient did not perform the activity before the current illness, exacerbation or injury. 10-Not Attempted due to Environmental Limitations-(lack of equipment, weather restraints, etc.). 88-Not Attempted due to Medical Conditions or Safety Concerns. Sit to Lying (QC): 6 Lying to Sitting/Side of Bed(Q: 6 Sit to Stand (QC): 6 Weight Bearing Right Lower Extremity: Right Full Weight Bearing Left Lower Extremity: Left Full Weight Bearing Gait Training Distance: 500' Walk 10 feet (QC): 6 Walk 50 ft with 2 Turns(QC): 6 Walk 150 ft (QC): 6 Gait Assistive Device: None safe and functional with no deviation Assessment Patient is currently independent PLOF with all gross motor skills safely. PT to dismiss from services at this time. PT Residential Goals Molding Machine Setter Goals PT Molding Machine Setter Goals Time Frame: July 31, 2021 Roll Left & Right (QC): 6 Sit to Lying (QC): 6 Lying-Sitting on Side/Bed(QC): 6 Sit to Stand (QC): 6 Chair/Nic-us-Vfgfu Xfer(QC): 6 Toilet Transfer (QC): 6 Does the Patient Walk: Yes Walk 10 feet (QC): 6 Walk 50ft with 2 Turns (QC): 6 Walk 150 ft (QC): 6 4 Steps (QC): 6 PT Plan Treatment/Plan Treatment Plan: Discontinue PT Treatment Plan: Bed Mobility, Education, Functional Activity Hilario, Functional Strength, Gait, Safety, Therapeutic Exercise, Transfers Treatment Duration: Aug 28, 2021 Frequency: 6 times per week Estimated Hrs Per Day: .25 hour per day Patient and/or Family Agrees t: Yes Time/GCodes Time In: 805 Time Out: 815 Total Billed Treatment Time: 10 Total Billed Treatment 1 visit FA SOFÍA GALVAN PT July 12, 2021 10:09
[2021-07-12] MEDS: CATHETER FLUSH 10 ML SYR IVP PRN ×2 (10:44→12:25)
[2021-07-12] MEDS ORDERED: LATUDA PO (11:06)
[2021-07-12] MEDS ORDERED: REGADENOSON 0.4 MG/5 ML SYR (LEXISCAN) IV ONE (12:05)
[2021-07-12 12:23] VITALS: BP 191/108
[2021-07-12] MEDS: ASPIRIN 81 MG CHEW (CHILDREN'S ASA) PO SCH (13:50)
[2021-07-12] MEDS: AZITHROMYCIN 250 MG TAB (ZITHROMAX) PO SCH (13:50)
[2021-07-12] MEDS: ALPRAZolam 0.5 MG (XANAX) TAB PO PRN (13:50)
[2021-07-12] MEDS: cefTRIAXone 1 GM PRE-MIX 50 ML IV SCH (13:51)
[2021-07-12] MEDS: DOCUSATE SODIUM 100 MG (COLACE) CAP PO SCH (13:52)
[2021-07-12] MEDS: SENNOSIDES 8.6 MG (SENOKOT) TAB PO SCH (13:52)
--- NOTE | 2021-07-12 14:02 | Occupational Therapy Eval ---
OT Evaluation-General/PLF Medical Diagnosis Admission Date July 10, 2021 at 11:22 Medical Diagnosis: Syncopal episode Onset Date: July 10, 2021 Therapy Diagnosis Therapy Diagnosis: n/a Height/Weight Height (Feet): 5 Height (Inches): 7.00 Weight (Pounds): 190 Weight (Ounces): 0 Precautions Precautions/Isolations: Standard Precautions Referral Physician: Dr. Baird Referral Reason: Evaluation/Treatment Medical History Pertinent Medical History: Arthritis, DM, GERD, HTN Current History Pt arrived after syncopal episode at [facility]. Found to have elevated troponin levels. Per patient, she lives alone in a ground floor apartment. She was indep with adls and iadls and does not use any AD for mobility. Reviewed History: Yes Social History Home: Apartment Current Living Status: Alone Entry Into Home: Level Entry ADL-Prior Level of Function SCALE: Activities may be completed with or without assistive devices. 0-Drbgsmdfyb-xdyausp completes the activity by him/herself with no assistance from a helper. 5-Set-up or Clean-up Assistance-helper sets up or cleans up; patient completes activity. [place] assists only prior to or following the activity. 4-Supervision or Touching Assistance-helper provides verbal cues and/or touching/steadying and/or contact guard assistance as patient completes activity. Assistance may be provided throughout the activity or intermittently. 3-Partial/Moderate Assistance-helper does LESS THAN HALF the effort. [place] lifts, holds or supports trunk or limbs, but provides less than half the effort. 2-Substantial/Maximal Assistance-helper does MORE THAN HALF the effort. [place] lifts or holds trunk or limbs and provides more than half the effort. 3-Vljlqnrse-ulxkdg does ALL the effort. Patient does none of the effort to complete the activity. Or, the assistance of 2 or more helpers is required for the patient to complete the activity. If activity was not attempted, code reason: 7-Patient Refused. 9-Not Applicable-not attempted and the patient did not perform the activity before the current illness, exacerbation or injury. 10-Not Attempted due to Environmental Limitations-(lack of equipment, weather restraints, etc.). 88-Not Attempted due to Medical Conditions or Safety Concerns. Self Care: Independent Functional Cognition: Independent DME/Equipment: [address] Self: Yes OT Current Status Subjective Pt denies pain, agreeable to eval. Appearance Pt returned to supine in bed, all needs within reach. Mental Status/Objective Patient Orientation: Person, Place, Situation Current Glasses/Contacts: Yes Hearing Aids: No Dentures/Partials: Yes Hand Dominance: Right Upper Extremity ROM WFL Upper Extremity Strength 3+/5 grossly ADL-Treatment Lower Body Dressing (QC): 4 On/Off Footwear (QC): 6 Toileting Hygiene (QC): 6 All functional transfers performed independently. Pt able to don/doff bilateral socks without difficulty. She ambulated to/from bathroom with supervision, no AD. Able to perform all steps of toileting without assist. Pt denies any self care concerns. OT to discharge at this time. Education OT Patient Education: Purpose of tx/functional activities, Rehab process Teaching Recipient: Patient Teaching Methods: Discussion Response to Teaching: Verbalize Understanding, Return Demonstration OT Residential Goals Residential Goals 1=Demonstrate adherence to instructed precautions during ADL tasks. 2=Patient will verbalize/demonstrate understanding of assistive devices/casey fications for ADL. 3=Patient will improve strength/tolerance for activity to enable patient to perform ADL's. OT Education/Plan Problem List/Assessment Assessment: No Skilled OT Needs ID'd Discharge Recommendations Plan/Recommendations: Discontinue OT Therapy Discharge Recommendati: Home & Family Treatment Plan/Plan of Care Treatment,Training & Education: Yes Patient would benefit from OT for education, treatment and training to promote independence in ADL's, mobility, safety and/or upper extremity function for ADL's. Plan of Care: ADL Retraining Treatment Duration: July 12, 2021 Frequency: 1 time per week Estimated Hrs Per Day: .25 hour per day Rehab Potential: Good Time/GCodes Start Time: 13:38 Stop Time: 13:48 Total Time Billed (hr/min): 10 Billed Treatment Time 1 visit Joelle Rinaldi OT July 12, 2021 14:02
--- NOTE | 2021-07-12 15:40 | Cardiology Progress Note ---
Progress Note-Cardiology Events since last exam Date Seen by Provider: July 12, 2021 Time Seen by Provider: 15:40 Events since last exam I am following her due to abnormal troponin level. She presented to the hosp ital due to a fall at home. She has chronic lightheaded spells. She denies chest discomfort, dyspnea at rest, palpitations, syncope, or ankle edema. She wants to know when she can go home. Certain portions of this document may have been dictated utilizing voice recognition technology. Inherent to this technology, typographical and grammatical errors may exist. As much as I am diligent to identify and correct these mistakes, some errors may remain in the document. Vitals Last set of Vitals Signs Vital Signs 07/11/21 07/12/21 08:00 16:06 Temp 36.8 Pulse 72 Resp 18 B/P (MAP) 192/97 (128) Pulse Ox 96 O2 Delivery Room Air O2 Flow Rate 0.00 Labs Labs Laboratory Tests 07/12/21 05:11 Exam Vital Signs Vital Signs Date Time Temp Pulse Resp B/P (MAP) Pulse Ox O2 Delivery O2 Flow Rate FiO2 07/12/21 16:06 36.8 72 18 192/97 (128) 96 Room Air 07/11/21 08:00 0.00 Physical Exam General: Alert. No acute distress. Eye: No xanthelasma. HENT: Normocephalic. Neck: Jugular venous pressure does not appear elevated. Respiratory: Lungs are clear to auscultation. Respirations are non-labored. Breath sounds are equal. Symmetrical chest wall expansion. Cardiovascular: Normal rate. Regular rhythm. 2/6 systolic ejection murmur. No gallop. No edema. Gastrointestinal: Soft. Normal bowel sounds. Skin: Warm. Dry. Neurologic: Alert and oriented to person, place, time. Cranial nerves 3-11 grossly intact. Psychiatric: Cooperative. Appropriate mood & affect. Labs Laboratory Tests Test 07/12/21 05:11 Range/Units White Blood Count 5.2 4.3-11.0 10^3/uL Red Blood Count 4.06 3.80-5.11 10^6/uL Hemoglobin 12.5 11.5-16.0 g/dL Hematocrit 38 35-52 % Mean Corpuscular Volume 93 80-99 fL Mean Corpuscular Hemoglobin 31 25-34 pg Mean Corpuscular Hemoglobin Concent 33 32-36 g/dL Red Cell Distribution Width 15.6 H 10.0-14.5 % Platelet Count 169 130-400 10^3/uL Mean Platelet Volume 9.5 9.0-12.2 fL Immature Granulocyte % (Auto) 0 % Neutrophils (%) (Auto) 74 42-75 % Lymphocytes (%) (Auto) 18 12-44 % Monocytes (%) (Auto) 7 0-12 % Eosinophils (%) (Auto) 0 0-10 % Basophils (%) (Auto) 0 0-10 % Neutrophils # (Auto) 3.8 1.8-7.8 10^3/uL Lymphocytes # (Auto) 1.0 1.0-4.0 10^3/uL Monocytes # (Auto) 0.4 0.0-1.0 10^3/uL Eosinophils # (Auto) 0.0 0.0-0.3 10^3/uL Basophils # (Auto) 0.0 0.0-0.1 10^3/uL Immature Granulocyte # (Auto) 0.0 0.0-0.1 10^3/uL Sodium Level 141 135-145 MMOL/L Potassium Level 3.3 L 3.6-5.0 MMOL/L Chloride Level 106 98-107 MMOL/L Carbon Dioxide Level 23 21-32 MMOL/L Anion Gap 12 5-14 MMOL/L Blood Urea Nitrogen 9 7-18 MG/DL Creatinine 0.57 L 0.60-1.30 MG/DL Estimat Glomerular Filtration Rate 103 BUN/Creatinine Ratio 16 Glucose Level 93 70-105 MG/DL Calcium Level 8.2 L 8.5-10.1 MG/DL Corrected Calcium 9.0 8.5-10.1 MG/DL Total Bilirubin 0.4 0.1-1.0 MG/DL Aspartate Amino Transf (AST/SGOT) 43 H 5-34 U/L Alanine Aminotransferase (ALT/SGPT) 14 0-55 U/L Alkaline Phosphatase 43 40-136 U/L Total Protein 4.9 L 6.4-8.2 GM/DL Albumin 3.0 L 3.2-4.5 GM/DL Radiology REGADENOSON NUCLEAR STRESS TEST (07/12/2021): 1. Normal heart rate and blood pressure response to regadenoson with resting hypertension. 2. There was no chest discomfort, arrhythmias, or electrocardiogram changes during the test. 3. There was normal myocardial perfusion in all segments without evidence of infarction or ischemia. 4. There was normal wall motion in all segments with a calculated ejection fraction of 66%. ECHOCARDIOGRAM (01/22/2021): 1. Left ventricle: The cavity size is normal. There is severe concentric hypertrophy. Systolic function is hyperdynamic. The estimated ejection fraction is 70-75%. There were no regional wall motion abnormalities identified. The left ventricular diastolic function is indeterminate. 2. Aortic valve: There is mild aortic stenosis with a mean gradient of 17 mmHg, a peak gradient of 30 mmHg and peak velocity of 2.7 m/s. 3. Pericardium, extracardiac: A trivial pericardial effusion is identified anterior to the heart. 4. Pulmonary arteries: The estimated pulmonary artery systolic pressure is 20 mmHg assuming a right atrial pressure of 5 mmHg. Diagnosis/Problems Diagnosis/Problems (1) Elevated troponin Status: Acute Assessment & Plan: She had an elevated troponin level but no symptoms of angina and no obvious ischemic changes on her electrocardiogram. Her troponin level trended downwards. She would be somewhat of a poor candidate for an invasive evaluation due to her history of noncompliance. Her nuclear stress test was normal. She was already prescribed aspirin. I started her on beta-caryn and statin medication. The exact etiology of the elevated troponin level is unclear. Nonetheless, I do not believe this represents an acute myocardial infarction. From a cardiac standpoint, she can be discharged to home. (2) Acute cerebrovascular accident Assessment & Plan: Unclear whether or not this had anything to do with her fall. She has been started on aspirin and statin medication. (3) Aortic stenosis Assessment & Plan: Her previous echocardiogram from January 2021 shows mild aortic stenosis. This should not be causing symptoms but will need to be followed longitudinally. (4) Primary hypertension Assessment & Plan: Blood pressures continue to be intermittently elevated. I started her on metoprolol succinate. I will increase the dose. I recommend discharging her on metoprolol succinate 100 mg daily. We do need to be cautious with antihypertensive medication due to a history of orthostatic hypotension she has had in the past. (5) Mixed hyperlipidemia Assessment & Plan: Her LDL level is elevated. She also had an acute/subacute stroke. I started her on statin therapy. (6) Syncope Assessment & Plan: Unclear whether or not she had syncope or just was very weak and collapsed onto the floor. I had previously recommended an event recorder after her hospitalization in January 2021. We can readdress this following discharge. BETHANIE SCOTT JR, MD July 12, 2021 15:40
--- NOTE | 2021-07-12 15:44 | NUCLEAR STRESS TEST ---
REGADENOSON NUCLEAR STRESS Date of procedure: 07/12/2021. Primary care provider: Anna Yoon APRN Admitting physician: Soni Baird DO. INDICATION: Abnormal troponin level. BASELINE ELECTROCARDIOGRAM: Sinus bradycardia with possible old septal myocardial infarction. STRESS TEST PROCEDURE: The patient was administered 0.4 mg of intravenous Regadenoson. The resting heart rate was 58 bpm and the peak heart rate was 94 bpm. The resting blood pressure was 191/180 mmHg and the minimum blood pressure was 170/90 mmHg. This represents a [] heart rate and a normal blood pressure response to Regadenoson with resting hypertension. The test was stopped due to the protocol. There was no chest discomfort during the test. There were no arrhythmias during the test. There were no significant stress induced electrocardiogram changes. NUCLEAR PROCEDURE: The patient was administered 10.2 mCi of intravenous technetium 99m Tetrofosmin at rest for the rest images. The patient was subsequently administered 31.4 mCi of intravenous technetium 99m Tetrofosmin at peak stress for the stress images. Following an appropriate wait after each injection, imaging was obtained. The images were subsequently processed and reformatted in the usual views. Gated imaging was obtained. The image quality was adequate with a mild degree of gastrointestinal and motion attenuation artif acts. CT attenuation correction was used as a adjunct to standard imaging. Both the corrected and uncorrected images were reviewed for interpretation. NUCLEAR RESULTS: There was normal myocardial perfusion in all segments without evidence of infarction or ischemia. There was normal left ventricular chamber size with an end-diastolic volume of 51 mL and an end-systolic volume of 17 mL. There was no evidence of transient ischemic dilatation. The TID ratio was 1.06. There was normal wall motion in all segments with a calculated ejection fraction of 66%. IMPRESSION: 1. Normal heart rate and blood pressure response to regadenoson with resting hypertension. 2. There was no chest discomfort, arrhythmias, or electrocardiogram changes during the test. 3. There was normal myocardial perfusion in all segments without evidence of infarction or ischemia. 4. There was normal wall motion in all segments with a calculated ejection fraction of 66%. Certain portions of this document may have been dictated utilizing voice recognition technology. Inherent to this technology, typographical and grammatical errors may exist. As much as I am diligent to identify and correct these mistakes, some errors may remain in the document. BETHANIE SCOTT JR, MD July 12, 2021 15:44
[2021-07-12 16:06] VITALS: BP 192/97
[2021-07-12] MEDS ORDERED: hydrALAZINE (APESOLINE) 20 MG/ML VIAL IV NR (16:15)
[2021-07-12] MEDS ORDERED: meTOproloL SUCCINATE 50 MG (TOPROL XL) TAB PO NR (16:15)
[2021-07-12] MEDS ORDERED: ROSU20TA32 PO (16:18)
[2021-07-12] MEDS ORDERED: ASPI81TA64 PO (16:18)
[2021-07-12] MEDS ORDERED: METO50TA7 PO (16:18)
[2021-07-12] MEDS ORDERED: CEFD300C3 PO (16:19)
--- NOTE | 2021-07-12 16:20 | Discharge Summary ---
Discharge [facility] Discharge Medications New, Converted or Re-Newed RX: Transmitted to Pharmacy New Medications: Cefdinir (Cefdinir) 300 Mg Capsule 300 MG PO BID for 5 Days, #10 CAP Aspirin (Children's Aspirin) 81 Mg Tab.chew 81 MG PO DAILY, #100 TAB 3 Refills Metoprolol Succinate (Metoprolol Succinate) 50 Mg Tab.er.24h 100 MG PO DAILY, #30 TAB 6 Refills Rosuvastatin Calcium (Rosuvastatin Calcium) 20 Mg Tablet 20 MG PO HS, #30 TAB 6 Refills Continued Medications: [Latuda 60] () 60 MG PO HS Trazodone HCl (Trazodone HCl) 100 Mg Tablet 200 MG PO HS, TAB TAKES 2 (100MG) TABS Patient Instructions Goal/Follow Up Appt: F/u with PCP 1-2 weeks Make sure to keep your f.u appt with Dr rutledge Activity & Diet Discharge Diet: Cardiac Diet Activity as Tolerated: Yes JAJA WALDROP MD July 12, 2021 16:17
--- NOTE | 2021-07-12 16:24 | Discharge Summary ---
Diagnosis/Chief Complaint Date of Admission July 10, 2021 at 11:22 Date of Discharge Discharge Date: July 12, 2021 Admission Diagnosis Admission Diagnosis Sepsis d/t Community acquired pneumonia Syncopal episode Discharge Diagnosis Community Acquired Pneumonia Discharge Summary Hospital Course Hospital Course 61 yo female who presented to ED after syncopal episode with fecal incontinence on 07/10. Pt was found to be septic with suspected community acquired pneumonia. Pt was admitted and started on ceftriaxone and azithromycin. Pt was without cough, SOA, oxygen requirement and CXR was clear, so pnuemonia unlikely. Urine culture grew E. coli, so was likely the source of infection. Pt denied urinary symptoms. Cardiology was consulted for syncopal episode and started pt on metoprolol, rosuvastatin and aspirin. CT head showed hypoattenuation of left frontal lobe concerning for acute or subacute infarct. Pt unable to do CT with contrast due to allergy. MRI was unable to be obtained, but pt's neurological exam was within normal limits. Stress test was ordered and was normal. Pt was stable for discharge, so ceftriaxone was switched to cefdinir. Will continue azithromycin. Plan for discharge was discussed with patient who was in agreement. Labs Laboratory Tests 07/10/21 09:05: White Blood Count 15.4H, Red Blood Count 5.47H, Hemoglobin 16.8H, Red Cell Distribution Width 15.5H, Neutrophils (%) (Auto) 86H, Lymphocytes (%) (Auto) 8L, Neutrophils # (Auto) 13.3H, D-Dimer 1.28H, Potassium Level 2.8L, Chloride Level 93L, Carbon Dioxide Level 19L, Anion Gap 23H, Blood Urea Nitrogen 26H, Glucose Level 115H, Total Bilirubin 1.6H, Aspartate Amino Transf (AST/SGOT) 158H, Total Creatine Kinase 5713H, Creatine Kinase MB 27.8*H, Myoglobin 2533.2H, Troponin I 1.805*H, C-Reactive Protein High Sensitivity 4.85H, B-Type Natriuretic Peptide 794.6H, Procalcitonin 0.99H, Salicylates Level < 5.0L, Acetaminophen Level < 10L 07/10/21 09:14: 07/10/21 09:22: Urine Protein 3+H, Urine Ketones 2+H, Urine Bilirubin 2+H, Urine RBC (Auto) 3+H, Urine Bacteria FEWH, Urine Hyaline Casts >50H, Urine Granular Casts 2-5H, Urine Benzodiazepines Screen POSITIVEH, Urine Cannabinoids Screen POSITIVEH 07/10/21 09:31: 07/10/21 09:32: Lactic Acid Level 3.10*H 07/10/21 11:33: 07/10/21 15:10: Troponin I 1.187*H 07/11/21 05:59: Red Cell Distribution Width 15.3H, Neutrophils (%) (Auto) 82H, Lymphocytes (%) (Auto) 11L, Lymphocytes # (Auto) 0.9L, Potassium Level 3.0L, Calcium Level 8.1L, Aspartate Amino Transf (AST/SGOT) 70H, Total Protein 5.2L, Triglycerides Level 177H, Cholesterol Level 208H, LDL Cholesterol Direct 141H, HDL Cholesterol 37L 07/12/21 05:11: Red Cell Distribution Width 15.6H, Potassium Level 3.3L, Creatinine 0.57L, Calcium Level 8.2L, Aspartate Amino Transf (AST/SGOT) 43H, Total Protein 4.9L, Albumin 3.0L Procedures None. Discharge Physical Examination Allergies: Coded Allergies: Iodinated Contrast Media (Verified Allergy, Severe, HIVES, 10/02/17) COUGHING, SNEEZING, HIVES UPON TRACE AMOUNT OF CONTRAST. codeine (Verified Allergy, Intermediate, RASH/SWELLING; PATIENT HAS RECEIVED MORPHINE W/O PROBLEMS, 12/06/16) adhesive tape (Verified Allergy, Unknown, 12/06/16) latex (Verified Allergy, Unknown, 12/06/16) Penicillins (Verified Adverse Reaction, Mild, NAUSEA/VOMITING, 12/07/16) SHE CAN TAKE AUGMENTIN FINE Vitals & I&Os Vital Signs Date Time Temp Pulse Resp B/P (MAP) Pulse Ox O2 Delivery O2 Flow Rate FiO2 07/12/21 16:06 36.8 72 18 192/97 (128) 96 Room Air 07/11/21 08:00 0.00 General Appearance: Alert, Oriented X3 HEENT: Atraumatic, PERRLA Respiratory: Clear to Auscultation Cardiovascular: Regular Rate, Normal S1, Normal S2 Abdominal: Normal Bowel Sounds, Soft Extremities: No Clubbing, No Cyanosis Skin: No Rashes, No Breakdown Neuro: Normal Speech, Cranial Nerves 3-12 NL Psych/Mental Status: Mental Status NL, Mood NL Discharge Home Medications Reviewed and agree with Discharge Medication list on patient's Discharge Instruction sheet Instructions to Patient/Family Please see electronic discharge instructions given to patient. Clinical Quality Measures AMI/AHF: ASA po Prior to arrival: DELVIS Arnold MED STUDENT July 12, 2021 16:24
[2021-07-13] MEDS ORDERED: meTOproloL SUCCINATE 50 MG (TOPROL XL) TAB PO SCH (09:00)
== END 2021-07-12 17:00 | disposition home or self-care (01) | DRG 871 ==
LOC: EDUNIT# 08:48 → ER 08:50 → 4TH 11:22
PROVIDERS: ADMIT Internal Medicine; ATTEND Family Medicine
DX: A41.51 Sepsis due to Escherichia coli [E. coli] (principal); I63.9 Cerebral infarction, unspecified; N39.0 Urinary tract infection, site not specified; R77.8 Other specified abnormalities of plasma proteins; E86.0 Dehydration; E87.6 Hypokalemia; Z20.822 Contact with and (suspected) exposure to COVID-19; E11.9 Type 2 diabetes mellitus without complications; K21.9 Gastro-esophageal reflux disease without esophagitis; I10 Essential (primary) hypertension; E78.00 Pure hypercholesterolemia, unspecified; E78.2 Mixed hyperlipidemia; I35.0 Nonrheumatic aortic (valve) stenosis; M19.91 Primary osteoarthritis, unspecified site; M79.7 Fibromyalgia; H54.3 Unqualified visual loss, both eyes; F41.9 Anxiety disorder, unspecified; F31.9 Bipolar disorder, unspecified; R15.9 Full incontinence of feces; F12.90 Cannabis use, unspecified, uncomplicated; F19.10 Other psychoactive substance abuse, uncomplicated; Z86.718 Personal history of other venous thrombosis and embolism; Z87.891 Personal history of nicotine dependence; Z85.01 Personal history of malignant neoplasm of esophagus; Z85.818 Personal history of malignant neoplasm of other sites of lip, oral cavity, and pharynx; Z88.5 Allergy status to narcotic agent; Z88.0 Allergy status to penicillin; Z91.041 Radiographic dye allergy status; Z91.040 Latex allergy status; Z82.61 Family history of arthritis; Z83.3 Family history of diabetes mellitus; Z82.49 Family history of ischemic heart disease and other diseases of the circulatory system; Z91.19 Patient's noncompliance with other medical treatment and regimen
CPT/HCPCS: 36415; 51702; 70450; 71045; 71250; 74176; 78452; 80053; 80061; 80306; 80320; 80329; 81000; 82140; 82150; 82550; 82553; 82947; 83605; 83690; 83735; 83874; 83880; 84145; 84443; 84484; 85007; 85025; 85027; 85379; 85610; 85652; 85730; 86141; 87040; 87077; 87088; 87186; 87636; 93005; 93017; 93041; 94760

== ENCOUNTER 2021-10-13 15:06 | Emergency (ER) | payer MEDICARE ==
[~2021-10-13] VITALS: Ht 170.2 cm; Wt 59.0 kg
[~2021-10-13 15:06] MED LIST changes: +ASPI81TA64 PO; +METO50TA7 PO; +ROSU20TA32 PO
--- NOTE | 2021-10-13 15:25 | ED General ---
General Chief Complaint: Neurological Problems Stated Complaint: STROKE Source of Information: Patient, EMS Exam Limitations: No Limitations History of Present Illness Date Seen by Provider: Oct 13, 2021 Time Seen by Provider: 15:10 Initial Comments Patient is a 61-year-old female who presents to the emergency department from her vehicle with a chief complaint of concern for having a stroke. Patient states that she got up about 230 and decided she wanted to drive to [facility] to get a drink. On her way she started feeling like her hands were "drawing up" she became quite anxious and called the ambulance. She denies headache, vision changes. No speech changes. She is very thirsty. No chest pain or shortness of breath. No abdominal pain, nausea vomiting or diarrhea. She has not eaten today. She tells me she has been off all of her medications except for her bipolar medications. She cannot give me a reason as to why. She states its been at least a year since she took any of her medications other than the bipolar meds. No recent fevers or chills. No burning with urination. No diarr hea. She has a history of esophageal cancer. This was 10 years ago. She does have a history of anxiety as well. Of note as I entered the room the patient was experiencing carpopedal spasm as the blood pressure cuff was going on the left arm. All other review of systems reviewed and negative except as stated Timing/Duration: 1-3 Hours Severity: Severe Associated Systoms: Denies Symptoms Allergies and Home Medications Allergies Coded Allergies: Iodinated Contrast Media (Verified Allergy, Severe, HIVES, 10/02/17) COUGHING, SNEEZING, HIVES UPON TRACE AMOUNT OF CONTRAST. codeine (Verified Allergy, Intermediate, RASH/SWELLING; PATIENT HAS RECEIVED MORPHINE W/O PROBLEMS, 12/06/16) adhesive tape (Verified Allergy, Unknown, 12/06/16) latex (Verified Allergy, Unknown, 12/06/16) Penicillins (Verified Adverse Reaction, Mild, NAUSEA/VOMITING, 12/07/16) SHE CAN TAKE AUGMENTIN FINE Patient Home Medication List Home Medication List Reviewed: Yes Aspirin (Children's Aspirin) 81 Mg Tab.chew, 81 MG PO DAILY Prescribed by: BETHANIE SCOTT JR, MD on 07/12/21 1688 Cefdinir (Cefdinir) 300 Mg Capsule, 300 MG PO BID Prescribed by: JAJA WALDROP on 07/12/21 1619 Metoprolol Succinate (Metoprolol Succinate) 50 Mg Tab.er.24h, 100 MG PO DAILY Prescribed by: BETHANIE SCOTT JR, MD on 07/12/21 1618 Rosuvastatin Calcium (Rosuvastatin Calcium) 20 Mg Tablet, 20 MG PO HS Prescribed by: BETHANIE SCOTT JR, MD on 07/12/21 1618 Trazodone HCl (Trazodone HCl) 100 Mg Tablet, 200 MG PO HS, (Reported) Entered as Reported by: BLESSING MAZA on 01/21/21 1556 [Latuda 60] , 60 MG PO HS, (Reported) Entered as Reported by: VENKATA SWIFT on 07/12/21 1106 Review of Systems Review of Systems Constitutional: see HPI EENTM: no symptoms reported Respiratory: no symptoms reported Cardiovascular: no symptoms reported Gastrointestinal: no symptoms reported Genitourinary: no symptoms reported Musculoskeletal: muscle cramps (Both hands and feet) Skin: no symptoms reported Psychiatric/Neurological: Anxiety All Other Systems Reviewed Negative Unless Noted: Yes Past Optxjek-Jwouro-Ccrnsw Hx Immunizations Up To Date Tetanus Booster (TDap): Less than 5yrs PED Vaccines UTD: No Seasonal Allergies Seasonal Allergies: Yes Past Medical History Surgery/Hospitalization HX: HAS UPPER AND LOWER DENTURES NOT WITH PATIENT ON ADMISSION Surgeries: Yes Abdominal, Adenoidectomy, Appendectomy, Bowel Surgery, Breast, Cardiac, Gallbla dder, Hysterectomy, Oophorectomy, Orthopedic, Renal, Tonsillectomy, Tracheostomy, Tubal Ligation Respiratory: Yes (HAS INHALER PRN) Chronic Bronchitis Currently Using CPAP: No Cardiac: Yes (DVT 2010-UPPER ARM/SHOULDER ; CARDIAC CATH-NO INTERVENTION; AORTIC STENOSIS) Deep Vein Thrombosis, High Cholesterol, Hypertension, Valvular Heart Disease Neurological: Yes Headaches /Migraines Reproductive Disorders: Yes Female Reproductive Disorders: Polycystic Ovarian Dis 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, Menopausal Sexually Transmitted Disease: No HIV/AIDS: No Genitourinary: Yes (KIDNEY STONE REMOVALS) Kidney Infection, Bladder Infection, Kidney Stones Gastrointestinal: Yes (ESOPH CA/STRICTURES/DILATIONS;COLON RESECTION;POLYPECTOMIES;PEG TUBE-REM) Gastroesophageal Reflux, Chronic Constipation, Diverticulosis, Polyps Musculoskeletal: Yes (BUNIONECTOMY) Arthritis, Fibromyalgia Endocrine: Yes Diabetes, 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; GLASSES) Dysphagia Loss of Vision: Bilateral Hearing Impairment: Denies Cancer: Yes (OROPHARNYX/ESOPHAGEAL CANCER) Esophageal Did You Recieve Any Treatments: Yes What Type of Treatment Did You: Chemotherapy, Radiation, Surgical Intervention Psychosocial: Yes (MULTIPLE PSYCH ADMITS, OVERDOSES AND SUICIDE ATTEMPTS) Sleep Difficulties, Anxiety, Suicide Attempts, Bipolar, Depression Integumentary: No Blood Disorders: No Adverse Reaction/Blood Tranf: No Family Medical History Alzheimer's disease 19 MOTHER Arthritis 19 MOTHER Cardiovascular disease 19 MOTHER Cataracts 19 MOTHER Dementia 19 MOTHER Diabetes mellitus 19 FATHER Headache disorder Hypercholesterolemia 19 FATHER Hypertension 19 FATHER Neoplasm 19 FATHER (PANCREATIC CANCER) Heart Disease, Cancer, Hypertension, Psychiatric Problems SOCIAL HISTORY: -SMOKED 1 PPD X 30 YEARS, QUIT 1986 -[facility]OH--OCCASIONAL USE -DRUGS--HX OF RX DRUG ABUSE AND OVERDOSES, THC USE PAST SURGICAL HISTORY: -MODIFIED RADICAL NECK DISSECTION FOR OROPHARYNGEAL CANCER -ALSO HAD SURGERY FOR ESOPHAGEAL CANCER -PEG TUBE--LATER REMOVED -TRACHEOSTOMY--LATER REMOVED -PORT PLACE--LATER REMOVED -MULTIPLE EGD'S/COLONOSCOPIES/ESOPHAGEAL DILATIONS/POLYPECTOMIES -COLON RESECTION FOR DIVERTICULAR DISEASE -BUNIONECTOMY -CARDIAC CATH--NO INTERVENTION -BREAST REDUCTION -CYSTOSCOPIES, URETERAL STENT; KIDNEY STONE REMOVAL -TONSILLECTOMY/ADENOIDECTOMY -APPENDECTOMY -CHOLECYSTECTOMY -HYSTERECTOMY/BILATERAL SALPINGO-OOPHORECTOMY -BILATERAL TUBAL LIGATION -TEETH REMOVED PAST SURGICAL HISTORY: - Physical Exam Vital Signs Vital Signs - First Documented 10/13/21 15:15 Temp 37.0 Pulse 101 Resp 24 B/P (MAP) 149/99 (116) Pulse Ox 97 Capillary Refill : Height, Weight, BMI Height: 5'7.00" Weight: 190lbs. 0oz. 86.295114et; 22.04 BMI Method:Stated General Appearance: No Apparent Distress, WD/WN HEENT: PERRL/EOMI Respiratory: Lungs Clear, Normal Breath Sounds, No Accessory Muscle Use, No Respiratory Distress Cardiovascular: Regular Rate, Rhythm (100), Normal Peripheral Pulses Gastrointestinal: Non Tender, Soft Extremity: Normal Capillary Refill, Normal Inspection, Normal Range of Motion, Non Tender, No Calf Tenderness Neurologic/Psychiatric: Alert, Oriented x3, No Motor/Sensory Deficits, Normal Mood/Affect, yield engineer II-XII Norm as Tested, Other (Slightly anxious) Skin: Normal Color, Warm/Dry Progress/Results/Core Measures Suspected Sepsis SIRS Temperature: Pulse: Respiratory Rate: Laboratory Tests 10/13/21 15:17: White Blood Count 7.8 Blood Pressure / Mean: Laboratory Tests 10/13/21 15:17: Creatinine 0.85, Platelet Count 295, Total Bilirubin 1.3H Results/Orders Lab Results Laboratory Tests Test 10/13/21 15:17 Range/Units White Blood Count 7.8 4.3-11.0 10^3/uL Red Blood Count 5.58 H 3.80-5.11 10^6/uL Hemoglobin 17.0 H 11.5-16.0 g/dL Hematocrit 49 35-52 % Mean Corpuscular Volume 88 80-99 fL Mean Corpuscular Hemoglobin 31 25-34 pg Mean Corpuscular Hemoglobin Concent 35 32-36 g/dL Red Cell Distribution Width 14.4 10.0-14.5 % Platelet Count 295 130-400 10^3/uL Mean Platelet Volume 9.6 9.0-12.2 fL Immature Granulocyte % (Auto) 0 % Neutrophils (%) (Auto) 64 42-75 % Lymphocytes (%) (Auto) 29 12-44 % Monocytes (%) (Auto) 7 0-12 % Eosinophils (%) (Auto) 0 0-10 % Basophils (%) (Auto) 0 0-10 % Neutrophils # (Auto) 5.0 1.8-7.8 10^3/uL Lymphocytes # (Auto) 2.2 1.0-4.0 10^3/uL Monocytes # (Auto) 0.6 0.0-1.0 10^3/uL Eosinophils # (Auto) 0.0 0.0-0.3 10^3/uL Basophils # (Auto) 0.0 0.0-0.1 10^3/uL Immature Granulocyte # (Auto) 0.0 0.0-0.1 10^3/uL Sodium Level 139 135-145 MMOL/L Potassium Level 2.8 L 3.6-5.0 MMOL/L Chloride Level 92 L 98-107 MMOL/L Carbon Dioxide Level 24 21-32 MMOL/L Anion Gap 23 H 5-14 MMOL/L Blood Urea Nitrogen 13 7-18 MG/DL Creatinine 0.85 0.60-1.30 MG/DL Estimat Glomerular Filtration Rate 77 BUN/Creatinine Ratio 15 Glucose Level 110 H 70-105 MG/DL Calcium Level 9.9 8.5-10.1 MG/DL Corrected Calcium 9.7 8.5-10.1 MG/DL Magnesium Level 2.0 1.6-2.4 MG/DL Total Bilirubin 1.3 H 0.1-1.0 MG/DL Aspartate Amino Transf (AST/SGOT) 12 5-34 U/L Alanine Aminotransferase (ALT/SGPT) 8 0-55 U/L Alkaline Phosphatase 63 40-136 U/L Total Protein 7.1 6.4-8.2 GM/DL Albumin 4.2 3.2-4.5 GM/DL My Orders Orders - JONAH ROMERO MD Ed Iv/Invasive Line Start (10/13/21 15:21) Cbc With Automated Diff (10/13/21 15:21) Comprehensive Metabolic Panel (10/13/21 15:21) Magnesium (10/13/21 15:21) Hydroxyzine Cap/Tab (Vistaril) (10/13/21 17:15) Potassium Chloride (Tablet) (K Dur Table (10/13/21 17:15) Medications Given in ED Current Medications Medications Dose Ordered Sig/Keven Route Start Time Stop Time Status Last Admin Dose Admin Hydroxyzine Pamoate 25 mg ONCE ONCE PO 10/13/21 17:15 10/13/21 17:16 DC 10/13/21 17:12 25 MG Vital Signs/I&O 10/13/21 15:15 Temp 37.0 Pulse 101 Resp 24 B/P (MAP) 149/99 (116) Pulse Ox 97 Capillary Refill : Progress Note : Time: 17:15 Progress Note Patient hydrated with normal saline, given some Vistaril for her anxiety. Her labs have been reviewed and she is found to have some hypokalemia at 2.8. This may be exacerbating her muscle cramping. She has been quite anxious. She does not follow-up with [facility] for another month. I have advised her to call and see if she can get a sooner appointment. I have told her we are going to give her some potassium replacement over the next 5 days as well as some Vistaril for her nerves. Her vital signs have been stable. No clinical or objective findings to warrant further studies from the emergency department all questions are sought and answered. Patient is stable for discharge. Departure Impression Primary Impression: Hypokalemia Additional Impressions: Carpopedal spasm Dehydration Medical non-compliance Disposition: 01 HOME, SELF-CARE Condition: Improved Departure-Patient Inst. Decision time for Depature: 17:19 Referrals: [facility] (PCP) Primary Care Physician OMAR BRAVO APRN (Family) Primary Care Physician Patient Instructions: High Potassium Diet Add. Discharge Instructions: Drink lots of fluids so that you stay well-hydrated. You were quite dry today. Take the potassium supplement once daily for the next 5 days. Your discharge packet contains information on potassium rich foods. You can take the Vistaril 1 every 6 hours as needed for anxiety. Please call [facility] for a sooner appointment. Return to the emergency department for any new, concerning or emergent complaints. Scripts Potassium Chloride (K-Tab ER) 20 Meq Tablet.er 20 MEQ PO DAILY for 5 Days, #5 TAB Prov: JONAH ROMERO MD 10/13/21 Hydroxyzine HCl (Hydroxyzine HCl) 25 Mg Tablet 25 MG PO Q6H PRN for anxiety, #20 TAB Prov: JONAH ROMERO MD 10/13/21 Copy Copies To 1: [facility]/JONAH MONTERROSO MD Oct 13, 2021 15:25
[2021-10-13 15:32] LABS: BASOPHILS % (AUTO) 0 % (0-10); EOSINOPHILS % (AUTO) 0 % (0-10); HEMATOCRIT 49 % (35-52); LYMPHOCYTES # (AUTO) 2.2 10^3/uL (1.0-4.0); LYMPHOCYTES % (AUTO) 29 % (12-44); MEAN CORPUSCULAR HEMOGLOBIN 31 pg (25-34); MEAN CORPUSCULAR HGB CONC 35 g/dL (32-36); MEAN CORPUSCULAR VOLUME 88 fL (80-99); MEAN PLATELET VOLUME 9.6 fL (9.0-12.2); MONOCYTES # (AUTO) 0.6 10^3/uL (0.0-1.0); MONOCYTES % (AUTO) 7 % (0-12); NEUTROPHILS % (AUTO) 64 % (42-75); PLATELET COUNT 295 10^3/uL (130-400); WHITE BLOOD COUNT 7.8 10^3/uL (4.3-11.0)
[2021-10-13 16:42] LABS: ALBUMIN 4.2 GM/DL (3.2-4.5); BILIRUBIN,TOTAL 1.3 MG/DL (0.1-1.0); CALCIUM 9.9 MG/DL (8.5-10.1); CREATININE SERUM 0.85 MG/DL (0.60-1.30); POTASSIUM 2.8 MMOL/L (3.6-5.0); TOTAL PROTEIN 7.1 GM/DL (6.4-8.2)
[2021-10-13] MEDS ORDERED: KCL 20 MEQ TAB (K-DUR) PO ONE (17:15)
[2021-10-13] MEDS ORDERED: hydrOXYzine (VISTARIL/ATARAX) 25 MG capsule/tablet PO ONE (17:15)
[2021-10-13] MEDS ORDERED: POTA-53 PO (17:21)
[2021-10-13] MEDS ORDERED: HYDR-700 PO (17:21)
[2021-10-13 17:33] VITALS: BP 150/58
== END 2021-10-13 17:33 | disposition home or self-care (01) ==
LOC: EDUNIT# 15:06 → ER 15:07
DX: E87.6 Hypokalemia (principal); E86.0 Dehydration; R29.0 Tetany; Z91.14 Patient's other noncompliance with medication regimen; Z91.040 Latex allergy status; Z28.310 Unvaccinated for COVID-19
CPT/HCPCS: 36415; 80053; 83735; 85025

== ENCOUNTER 2021-12-09 16:47 | Observation (INO) | payer MEDICARE ==
[~2021-12-09] VITALS: Ht 167.7 cm; Wt 60.4 kg
[~2021-12-09 16:47] MED LIST changes: +HYDR-700 PO; +POTA-53 PO
[2021-12-09 17:06] LABS: BASOPHILS % (AUTO) 0 % (0-10); EOSINOPHILS # (AUTO) 0.1 10^3/uL (0.0-0.3); EOSINOPHILS % (AUTO) 1 % (0-10); HEMATOCRIT 47 % (35-52); LYMPHOCYTES # (AUTO) 2.3 10^3/uL (1.0-4.0); LYMPHOCYTES % (AUTO) 25 % (12-44); MEAN CORPUSCULAR HEMOGLOBIN 32 pg (25-34); MEAN CORPUSCULAR HGB CONC 36 g/dL (32-36); MEAN CORPUSCULAR VOLUME 88 fL (80-99); MEAN PLATELET VOLUME 9.7 fL (9.0-12.2); MONOCYTES # (AUTO) 0.7 10^3/uL (0.0-1.0); MONOCYTES % (AUTO) 8 % (0-12); NEUTROPHILS # (AUTO) 6.1 10^3/uL (1.8-7.8); NEUTROPHILS % (AUTO) 66 % (42-75); PLATELET COUNT 302 10^3/uL (130-400); WHITE BLOOD COUNT 9.3 10^3/uL (4.3-11.0)
--- NOTE | 2021-12-09 17:14 | ED General ---
General Chief Complaint: Neuro-Stroke Like Symptoms Stated Complaint: WEAKNESS Nursing Triage Note: pt presents to ed via ems from home with complaints of l arm numbness/weakness stafting at 1230 today when she woke up from a nap. pt reports she went down for her nap around 1000 this am. pt also reports n/v/d x 2 days. Source of Information: Patient Exam Limitations: No Limitations History of Present Illness Date Seen by Provider: Dec 09, 2021 Time Seen by Provider: 16:50 Initial Comments Patient is a 61yo female who presents to the ER by ambulance with a chief complaint of "I don't feel good". She lives alone - has a history of mental health issues - states the only medication she is taking is her Latuda - but she didnt take it last night. She states she has had N/V. No black or bloody stools. No problems urinating. No headache. No vision changes. She states that she has a "numb" left arm. She states to nursing staff that her left arm felt "weak" after a nap and getting up at about 1230 today. Notably the patient is moving all 4 extremities, following commands and moving the left arm just as much as the right. No reported falls or trauma. She states she had a cheese sandwich and water yesterday and only water today. She cannot recall the last time she saw her mental health provider or primary care doctor. I believe history and ROS are compromised by the patient's mental health issues. Timing/Duration: 4-6 Hours Associated Systoms: Denies Symptoms Allergies and Home Medications Allergies Coded Allergies: Iodinated Contrast Media (Verified Allergy, Severe, HIVES, 10/02/17) COUGHING, SNEEZING, HIVES UPON TRACE AMOUNT OF CONTRAST. codeine (Verified Allergy, Intermediate, RASH/SWELLING; PATIENT HAS RECEIVED MORPHINE W/O PROBLEMS, 12/06/16) adhesive tape (Verified Allergy, Unknown, 12/06/16) latex (Verified Allergy, Unknown, 12/06/16) Penicillins (Verified Adverse Reaction, Mild, NAUSEA/VOMITING, 12/07/16) SHE CAN TAKE AUGMENTIN FINE Patient Home Medication List Home Medication List Reviewed: Yes Aspirin (Children's Aspirin) 81 Mg Tab.chew, 81 MG PO DAILY Prescribed by: BETHANIE SCOTT JR, MD on 07/12/21 9793 Cefdinir (Cefdinir) 300 Mg Capsule, 300 MG PO BID Prescribed by: JAJA WALDROP on 07/12/21 1619 Hydroxyzine HCl (Hydroxyzine HCl) 25 Mg Tablet, 25 MG PO Q6H PRN for anxiety Prescribed by: JONAH ROMERO on 10/13/21 1721 Metoprolol Succinate (Metoprolol Succinate) 50 Mg Tab.er.24h, 100 MG PO DAILY Prescribed by: BETHANIE SCOTT JR, MD on 07/12/21 1618 Potassium Chloride (K-Tab ER) 20 Meq Tablet.er, 20 MEQ PO DAILY Prescribed by: JONAH ROMERO on 10/13/21 172 Rosuvastatin Calcium (Rosuvastatin Calcium) 20 Mg Tablet, 20 MG PO HS Prescribed by: BETHANIE SCOTT JR, MD on 07/12/21 1618 Trazodone HCl (Trazodone HCl) 100 Mg Tablet, 200 MG PO HS, (Reported) Entered as Reported by: BLESSING MAZA on 01/21/21 1556 [Latuda 60] , 60 MG PO HS, (Reported) Entered as Reported by: VENKATA SWIFT on 07/12/21 1106 Review of Systems Review of Systems Constitutional: see HPI, malaise, weakness EENTM: no symptoms reported Respiratory: cough Cardiovascular: no symptoms reported Gastrointestinal: diarrhea, loss of appetite, nausea, vomiting Genitourinary: no symptoms reported : No Musculoskeletal: no symptoms reported Skin: no symptoms reported Psychiatric/Neurological: No Symptoms Reported All Other Systems Reviewed Negative Unless Noted: Yes Past Paysfsp-Kemtvv-Bjhycv Hx Patient Social History Tobacco Use?: No Smoking Status: Former Smoker Substance use?: Yes Substance type: Marijuana Pt feels they are or have been: No Immunizations Up To Date Tetanus Booster (TDap): Less than 5yrs PED Vaccines UTD: No Seasonal Allergies Seasonal Allergies: Yes Past Medical History Surgery/Hospitalization HX: HAS UPPER AND LOWER DENTURES NOT WITH PATIENT ON ADMISSION pmh: depression, htn, bipolar Surgeries: Yes Abdominal, Adenoidectomy, Appendectomy, Bowel Surgery, Breast, Cardiac, Gallbladder, Hysterectomy, Oophorectomy, Orthopedic, Renal, Tonsillectomy, Tracheostomy, Tubal Ligation Respiratory: Yes (HAS INHALER PRN) Chronic Bronchitis Currently Using CPAP: No Cardiac: Yes (DVT 2010-UPPER ARM/SHOULDER ; CARDIAC CATH-NO INTERVENTION; AORTIC STENOSIS) Deep Vein Thrombosis, High Cholesterol, Hypertension, Valvular Heart Disease Neurological: Yes Headaches /Migraines Reproductive Disorders: Yes Female Reproductive Disorders: Polycystic 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, 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 Sexually Transmitted Disease: No HIV/AIDS: No Genitourinary: Yes (KIDNEY STONE REMOVALS) Kidney Infection, Bladder Infection, Kidney Stones Gastrointestinal: Yes (ESOPH CA/STRICTURES/DILATIONS;COLON RESECTION;POLYPECTOMIES;PEG TUBE-REM) Gastroesophageal Reflux, Chronic Constipation, Diverticulosis, Polyps Musculoskeletal: Yes (BUNIONECTOMY) Arthritis, Fibromyalgia Endocrine: Yes Diabetes, 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; GLASSES) Dysphagia Loss of Vision: Bilateral Hearing Impairment: Denies Cancer: Yes (OROPHARNYX/ESOPHAGEAL CANCER) Esophageal Did You Recieve Any Treatments: Yes What Type of Treatment Did You: Chemotherapy, Radiation, Surgical Intervention Psychosocial: Yes (MULTIPLE PSYCH ADMITS, OVERDOSES AND SUICIDE ATTEMPTS) Sleep Difficulties, Anxiety, Suicide Attempts, Bipolar, Depression Integumentary: No Blood Disorders: No Adverse Reaction/Blood Tranf: No Family Medical History Alzheimer's disease 19 MOTHER Arthritis 19 MOTHER Cardiovascular disease 19 MOTHER Cataracts 19 MOTHER Dementia 19 MOTHER Diabetes mellitus 19 FATHER Headache disorder Hypercholesterolemia 19 FATHER Hypertension 19 FATHER Neoplasm 19 FATHER (PANCREATIC CANCER) Heart Disease, Cancer, Hypertension, Psychiatric Problems SOCIAL HISTORY: -SMOKED 1 PPD X 30 YEARS, QUIT 1986 -[facility]--OCCASIONAL USE -DRUGS--HX OF RX DRUG ABUSE AND OVERDOSES, THC USE PAST SURGICAL HISTORY: -MODIFIED RADICAL NECK DISSECTION FOR OROPHARYNGEAL CANCER -ALSO HAD SURGERY FOR ESOPHAGEAL CANCER -PEG TUBE--LATER REMOVED -TRACHEOSTOMY--LATER REMOVED -PORT PLACE--LATER REMOVED -MULTIPLE EGD'S/COLONOSCOPIES/ESOPHAGEAL DILATIONS/POLYPECTOMIES -COLON RESECTION FOR DIVERTICULAR DISEASE -BUNIONECTOMY -CARDIAC CATH--NO INTERVENTION -BREAST REDUCTION -CYSTOSCOPIES, URETERAL STENT; KIDNEY STONE REMOVAL -TONSILLECTOMY/ADENOIDECTOMY -APPENDECTOMY -CHOLECYSTECTOMY -HYSTERECTOMY/BILATERAL SALPINGO-OOPHORECTOMY -BILATERAL TUBAL LIGATION -TEETH REMOVED PAST SURGICAL HISTORY: - Physical Exam Vital Signs Vital Signs - First Documented 12/09/21 16:47 Temp 36.8 Pulse 117 Resp 20 B/P (MAP) 156/80 (105) Pulse Ox 99 Capillary Refill : Less Than 3 Seconds Height, Weight, BMI Height: 5'7.00" Weight: 190lbs. 0oz. [id number]; 21.00 BMI Method:Stated General Appearance: Anxious, Chronically ill, Thin, Other (appears quite older than stated age) Eyes: Bilateral Eye Normal Inspection, Bilateral Eye PERRL, Bilateral Eye EOMI HEENT: PERRL/EOMI, Other (dry oral mucosa) Neck: Normal Inspection Respiratory: Lungs Clear, Normal Breath Sounds, No Accessory Muscle Use, No Respiratory Distress Cardiovascular: Regular Rate, Rhythm, Normal Peripheral Pulses, Tachycardia (110) Gastrointestinal: Normal Bowel Sounds, Non Tender, Soft Extremity: Normal Capillary Refill, Normal Inspection, Normal Range of Motion, Non Tender, No Calf Tenderness Neurologic/Psychiatric: Alert, Oriented x3, No Motor/Sensory Deficits, Other (appears agitated; jittery; constantly moving while laying on the bed; seems anxious; repeats "i just don't feel good" multiple times) Skin: Warm/Dry, Pallor, Other (poor skin turgor) Progress/Results/Core Measures Suspected Sepsis SIRS Temperature: Pulse: 117 Respiratory Rate: 20 Laboratory Tests 12/09/21 16:50: White Blood Count 9.3 Blood Pressure 156 /80 Mean: 105 Laboratory Tests 12/09/21 16:50: Creatinine 0.98, Platelet Count 302, Total Bilirubin 1.6H Results/Orders Lab Results Laboratory Tests Test 12/09/21 16:50 Range/Units White Blood Count 9.3 4.3-11.0 10^3/uL Red Blood Count 5.36 H 3.80-5.11 10^6/uL Hemoglobin 17.0 H 11.5-16.0 g/dL Hematocrit 47 35-52 % Mean Corpuscular Volume 88 80-99 fL Mean Corpuscular Hemoglobin 32 25-34 pg Mean Corpuscular Hemoglobin Concent 36 32-36 g/dL Red Cell Distribution Width 15.9 H 10.0-14.5 % Platelet Count 302 130-400 10^3/uL Mean Platelet Volume 9.7 9.0-12.2 fL Immature Granulocyte % (Auto) 0 % Neutrophils (%) (Auto) 66 42-75 % Lymphocytes (%) (Auto) 25 12-44 % Monocytes (%) (Auto) 8 0-12 % Eosinophils (%) (Auto) 1 0-10 % Basophils (%) (Auto) 0 0-10 % Neutrophils # (Auto) 6.1 1.8-7.8 10^3/uL Lymphocytes # (Auto) 2.3 1.0-4.0 10^3/uL Monocytes # (Auto) 0.7 0.0-1.0 10^3/uL Eosinophils # (Auto) 0.1 0.0-0.3 10^3/uL Basophils # (Auto) 0.0 0.0-0.1 10^3/uL Immature Granulocyte # (Auto) 0.0 0.0-0.1 10^3/uL Sodium Level 134 L 135-145 MMOL/L Potassium Level 2.3 *L 3.6-5.0 MMOL/L Chloride Level 92 L 98-107 MMOL/L Carbon Dioxide Level 22 21-32 MMOL/L Anion Gap 20 H 5-14 MMOL/L Blood Urea Nitrogen 22 H 7-18 MG/DL Creatinine 0.98 0.60-1.30 MG/DL Estimat Glomerular Filtration Rate 65 BUN/Creatinine Ratio 22 Glucose Level 149 H 70-105 MG/DL Calcium Level 9.4 8.5-10.1 MG/DL Corrected Calcium 9.3 8.5-10.1 MG/DL Total Bilirubin 1.6 H 0.1-1.0 MG/DL Aspartate Amino Transf (AST/SGOT) 19 5-34 U/L Alanine Aminotransferase (ALT/SGPT) 9 0-55 U/L Alkaline Phosphatase 76 40-136 U/L Total Protein 7.2 6.4-8.2 GM/DL Albumin 4.1 3.2-4.5 GM/DL My Orders Orders - JONAH ROMERO MD Ed Iv/Invasive Line Start (12/09/21 17:00) Cbc With Automated Diff (12/09/21 17:00) Comprehensive Metabolic Panel (12/09/21 17:00) Drug Screen Stat (Urine) (12/09/21 17:00) Ua Culture If Indicated (12/09/21 17:00) Ns Iv 1000 Ml (Sodium Chloride 0.9%) (12/09/21 18:00) Potassium Cl 10meq/50ml Ivpb (Kcl 10 Meq (12/09/21 18:00) Ed Admission (Communication) (10/6/22 19:20) Medications Given in ED Vital Signs/I&O 12/09/21 16:47 Temp 36.8 Pulse 117 Resp 20 B/P (MAP) 156/80 (105) Pulse Ox 99 12/10/21 00:00 Intake Total 2050 ml Balance 2050 ml Capillary Refill : Less Than 3 Seconds Blood Pressure Mean: 105 Progress Note : Time: 17:45 Progress Note Case was discussed with Dr Baird - would like a straight cath UA specimen. Wi ll put on cardiac stepdown for potassium flashes with telemetry due to K being so low (2.3). VS have been stable. No vomiting in the department. Patient lives alone - would consider social services director consult to assess safety at home - especially in light of mental illness and age/debility. Departure Communication (Admissions) Time/Spoke to Admitting Phy: 18:[address] Baird, she would like cath UA Impression Primary Impression: Hypokalemia Additional Impressions: Dehydration Vomiting Qualified Codes: R11.2 - Nausea with vomiting, unspecified Disposition: ADMITTED INPATIENT Condition: Stable Admissions Decision to Admit Reason: Admit from ER (General) Decision to Admit/Date: Dec 09, 2021 Time/Decision to Admit Time: 18:14 Departure-Patient Inst. Referrals: [facility] (PCP) Primary Care Physician OMAR BRAVO APRN (Family) Primary Care Physician JONAH ROMERO MD Dec 09, 2021 17:14
[2021-12-09 17:21] LABS: ALBUMIN 4.1 GM/DL (3.2-4.5)
[2021-12-09 17:23] LABS: CALCIUM 9.4 MG/DL (8.5-10.1)
[2021-12-09 17:24] LABS: TOTAL PROTEIN 7.2 GM/DL (6.4-8.2)
[2021-12-09 17:26] LABS: BILIRUBIN,TOTAL 1.6 MG/DL (0.1-1.0)
[2021-12-09 17:27] LABS: CREATININE SERUM 0.98 MG/DL (0.60-1.30)
[2021-12-09 17:33] LABS: POTASSIUM 2.3 MMOL/L (3.6-5.0)
[2021-12-09] MEDS ORDERED: POTASSIUM CL 10MEQ/50ML IVPB 50 ML IV ONE (18:00)
[2021-12-09] MEDS ORDERED: NS IV 1000 ML 1,000 ML IV SCH (18:00)
[2021-12-09 19:37] LABS: BILIRUBIN,URINE 1+ (NEGATIVE); CLARITY,URINE CLEAR; COLOR,URINE YELLOW; GLUCOSE, URINE (UA) NEGATIVE (NEGATIVE); KETONES,URINE 2+ (NEGATIVE); LEUKOCYTE ESTERASE ,URINE NEGATIVE (NEGATIVE); NITRITE,URINE NEGATIVE (NEGATIVE); PH,URINE 5.5 (5-9); PROTEIN,URINE 2+ (NEGATIVE)
[2021-12-09 19:59] LABS: AMORPHOUS SEDIMENT,UR FEW AMOR URATES /LPF; BACTERIA,URINE MODERATE /HPF; RBC,URINE 0-2 /HPF; SQUAMOUS EPITHELIAL CELL,UR 0-2 /HPF
[2021-12-09 20:01] LABS: AMPHETAMINE SCREEN, URINE NEGATIVE (NEGATIVE); BARBITURATE SCREEN URINE NEGATIVE (NEGATIVE); BENZODIAZEPINES SCREEN URINE NEGATIVE (NEGATIVE); CANNABINOID SCREEN, URINE POSITIVE (NEGATIVE); COCAINE SCREEN URINE NEGATIVE (NEGATIVE); METHADONE STAT NEGATIVE (NEGATIVE); OPIATE SCREEN URINE NEGATIVE (NEGATIVE); OXYCODONE STAT NEGATIVE (NEGATIVE); PROPOXYPHENE STAT NEGATIVE (NEGATIVE); TRICYCLIC ANTIDEPRESSANTS SCRE NEGATIVE (NEGATIVE)
[2021-12-09] MEDS ORDERED: ONDANSETRON 4 MG (ZOFRAN) ORAL DISSOLVE TAB PO PRN (21:15)
[2021-12-09] MEDS ORDERED: ALPRAZolam 1 MG (XANAX) TAB PO PRN (21:15)
[2021-12-09] MEDS ORDERED: HYDROmorphone 2 MG/ML VIAL (DILAUDID) IV PRN (21:15)
[2021-12-09] MEDS ORDERED: diphenhydrAMINE 25 MG TAB (BENADRYL) PO PRN (21:15)
[2021-12-09] MEDS ORDERED: LACTULOSE SYRUP 10GM/15ML (ENULOSE) 30ML UDC PO PRN (21:15)
[2021-12-09] MEDS ORDERED: morphine IMMEDIATE RELEASE 15 MG TABLET PO PRN (21:15)
[2021-12-09] MEDS ORDERED: ANTACID SUSP 30 ML UDC (MYLANTA) PO PRN (21:15)
[2021-12-09] MEDS ORDERED: polyethylene glycoL POWDER 17 GM (MIRALAX) PACK PO PRN (21:15)
[2021-12-09] MEDS ORDERED: MELATONIN 3 MG TABLET PO PRN (21:15)
[2021-12-09] MEDS ORDERED: CALCIUM CARBONATE 500 MG (TUMS) TAB.CHEW PO PRN (21:15)
[2021-12-09] MEDS ORDERED: LORazepam 0.5 MG (ATIVAN) TABLET PO PRN (21:15)
[2021-12-09] MEDS ORDERED: diphenhydrAMINE 50 MG/ML INJ (BENADRYL) IVP PRN (21:15)
[2021-12-09] MEDS ORDERED: ACETAMINOPHEN 325 MG TABLET PO PRN (21:15)
[2021-12-09] MEDS ORDERED: ONDANSETRON 4 MG/2 ML (SDV) Z0FRAN IV PRN (21:15)
[2021-12-09] MEDS ORDERED: BISACODYL 10 MG SUPP (DULCOLAX) PR PRN (21:15)
[2021-12-09] MEDS ORDERED: MILK OF MAGNESIA 400 MG/5 ML 30 ML UDC PO PRN (21:15)
[2021-12-09] MEDS ORDERED: ALPRAZolam 0.5 MG (XANAX) TAB ONE (21:21)
[2021-12-09] MEDS ORDERED: MAGNESIUM 1 GM/100 ML IVPB 100 ML IV ONE (21:21)
[2021-12-09] MEDS ORDERED: NS IV 1000 ML 1,000 ML ONE (21:21)
[2021-12-09] MEDS ORDERED: POTASSIUM CL 10MEQ/50ML IVPB 100 ML IV ONE (21:22)
[2021-12-09] MEDS: MAGNESIUM 1 GM/100 ML IVPB 100 ML IV SCH ×2 (21:28→22:32)
[2021-12-09] MEDS: NS IV 1000 ML 1,000 ML IV SCH (21:28)
[2021-12-09] MEDS: POTASSIUM CL 10MEQ/50ML IVPB 50 ML IV SCH ×3 (21:28→23:33)
[2021-12-09] MEDS: ALPRAZolam 0.5 MG (XANAX) TAB PO PRN (21:29)
[2021-12-09] MEDS: ENOXAPARIN 40 MG/0.4 ML (LOVENOX) SYR SC SCH (22:31)
[2021-12-09 23:12] VITALS: BP 135/71
[2021-12-10] VITALS (8 sets, daily range): BP systolic 127–177; BP diastolic 58–89
[2021-12-10] MEDS ORDERED: RT-ALBUTEROL SULF 2.5 MG/3 ML PRE-MIX VIAL INH PRN (01:00)
[2021-12-10] MEDS: POTASSIUM CL 10MEQ/50ML IVPB 50 ML IV SCH ×6 (01:06→19:48)
[2021-12-10 05:04] LABS: BASOPHILS % (AUTO) 0 % (0-10); EOSINOPHILS % (AUTO) 0 % (0-10); HEMATOCRIT 37 % (35-52); HEMOGLOBIN 12.6 g/dL (11.5-16.0); LYMPHOCYTES # (AUTO) 1.4 10^3/uL (1.0-4.0); LYMPHOCYTES % (AUTO) 26 % (12-44); MEAN CORPUSCULAR HEMOGLOBIN 31 pg (25-34); MEAN CORPUSCULAR HGB CONC 34 g/dL (32-36); MEAN CORPUSCULAR VOLUME 91 fL (80-99); MEAN PLATELET VOLUME 9.5 fL (9.0-12.2); MONOCYTES # (AUTO) 0.6 10^3/uL (0.0-1.0); MONOCYTES % (AUTO) 11 % (0-12); NEUTROPHILS # (AUTO) 3.4 10^3/uL (1.8-7.8); NEUTROPHILS % (AUTO) 63 % (42-75); PLATELET COUNT 198 10^3/uL (130-400); WHITE BLOOD COUNT 5.4 10^3/uL (4.3-11.0)
[2021-12-10 05:22] LABS: ALBUMIN 3.2 GM/DL (3.2-4.5); POTASSIUM 3.3 MMOL/L (3.6-5.0)
[2021-12-10 05:23] LABS: CALCIUM 7.6 MG/DL (8.5-10.1)
[2021-12-10 05:24] LABS: TOTAL PROTEIN 5.3 GM/DL (6.4-8.2)
[2021-12-10] MEDS: NS IV 1000 ML 1,000 ML IV SCH ×2 (05:25→14:00)
[2021-12-10 05:26] LABS: BILIRUBIN,TOTAL 1.4 MG/DL (0.1-1.0)
[2021-12-10 05:28] LABS: CREATININE SERUM 0.65 MG/DL (0.60-1.30)
[2021-12-10] MEDS: DOCUSATE SODIUM 100 MG (COLACE) CAP PO SCH ×2 (09:11→21:06)
[2021-12-10] MEDS: SENNOSIDES 8.6 MG (SENOKOT) TAB PO SCH ×2 (09:11→21:06)
[2021-12-10] MEDS: ALPRAZolam 0.5 MG (XANAX) TAB PO PRN ×2 (09:12→17:46)
[2021-12-10] MEDS ORDERED: LATUDA PO (10:47)
--- NOTE | 2021-12-10 11:43 | Physical Therapy Evaluation ---
PT Evaluation-General Medical Diagnosis Admission Date Dec 09, 2021 at 19:21 Medical Diagnosis: stroke-like symptoms Onset Date: Dec 09, 2021 Therapy Diagnosis Therapy Diagnosis: impaired mobility, strength, balance Height/Weight Height (Feet): 5 Height (Inches): 7.00 Weight (Pounds): 190 Weight (Ounces): 0 Precautions Precautions/Isolations: Fall Prevention, Standard Precautions Referral Physician: Soni Baird DO Reason for Referral: Evaluation/Treatment Medical History Pertinent Medical History: Arthritis, DM, GERD, HTN Additional Medical History Past Medical History Surgery/Hospitalization HX: HAS UPPER AND LOWER DENTURES NOT WITH PATIENT ON ADMISSION pmh: depression, htn, bipolar Surgeries: Yes Abdominal, Adenoidectomy, Appendectomy, Bowel Surgery, Breast, Cardiac, Gallbladder, Hysterectomy, Oophorectomy, Orthopedic, Renal, Tonsillectomy, Tracheostomy, Tubal Ligation Respiratory: Yes (HAS INHALER PRN) Chronic Bronchitis Currently Using CPAP: No Cardiac: Yes (DVT 2010-UPPER ARM/SHOULDER ; CARDIAC CATH-NO INTERVENTION; AORTIC STENOSIS) Deep Vein Thrombosis, High Cholesterol, Hypertension, Valvular Heart Disease Neurological: Yes Headaches /Migraines Reproductive Disorders: Yes Female Reproductive Disorders: 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, 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 Sexually Transmitted Disease: No HIV/AIDS: No Genitourinary: Yes (KIDNEY STONE REMOVALS) Kidney Infection, Bladder Infection, Kidney Stones Gastrointestinal: Yes (ESOPH CA/STRICTURES/DILATIONS;COLON RESECTION;POLYPECTOMIES;PEG TUBE-REM) Gastroesophageal Reflux, Chronic Constipation, Diverticulosis, Polyps Musculoskeletal: Yes (BUNIONECTOMY) Arthritis, Fibromyalgia Endocrine: Yes Diabetes, 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; GLASSES) Dysphagia Loss of Vision: Bilateral Hearing Impairment: Denies Cancer: Yes (OROPHARNYX/ESOPHAGEAL CANCER) Esophageal Did You Recieve Any Treatments: Yes What Type of Treatment Did You: Chemotherapy, Radiation, Surgical Intervention Psychosocial: Yes (MULTIPLE PSYCH ADMITS, OVERDOSES AND SUICIDE ATTEMPTS) Sleep Difficulties, Anxiety, Suicide Attempts, Bipolar, Depression Integumentary: No Blood Disorders: No Adverse Reaction/Blood Tranf: No Reviewed History: Yes Prior Prior Level of Function SCALE: Activities may be completed with or without assistive devices. 5-Kfcwqjmghn-qgcsioi completes the activity by him/herself with no assistance from a helper. 5-Set-up or Clean-up Assistance-helper sets up or cleans up; patient completes activity. [place] assists only prior to or following the activity. 4-Supervision or Touching Assistance-helper provides verbal cues and/or touching/steadying and/or contact guard assistance as patient completes activ ity. Assistance may be provided throughout the activity or intermittently. 3-Partial/Moderate Assistance-helper does LESS THAN HALF the effort. [place] lifts, holds or supports trunk or limbs, but provides less than half the effort. 2-Substantial/Maximal Assistance-helper does MORE THAN HALF the effort. [place] lifts or holds trunk or limbs and provides more than half the effort. 1-Hsizeywrt-hjbuod does ALL the effort. Patient does none of the effort to complete the activity. Or, the assistance of 2 or more helpers is required for the patient to complete the activity. If activity was not attempted, code reason: 7-Patient Refused. 9-Not Applicable-not attempted and the patient did not perform the activity before the current illness, exacerbation or injury. 10-Not Attempted due to Environmental Limitations-(lack of equipment, weather restraints, etc.). 88-Not Attempted due to Medical Conditions or Safety Concerns. Bed Mobility: 6 Transfers (B,C,W/C): 6 Gait: 6 Indoor Mobility (Ambulation): Independent Prior Devices Use: None PT Evaluation-Current Subjective Patient in bed pre tx, agrees to PT, has no complaints of pain. Pt/Family Goals to be independent at home Objective Patient Orientation: Person, Place, Situation Attachments: IV ROM/Strength ROM Lower Extremities WNL Strength Lower Extremities LLE (hip flexion 3+/5, knee flexion 4/5, knee extension 4/5, dorsiflexin 4/5), RLE (hip flexion 3+/5, knee flexion 4/5, knee extension 4/5, dorsiflexin 4/5) Neuromuscular (Tone, Coordination, Reflexes) visual tracking was good but patient seemed to have impaired peripheral vision on the left side Sensory Hearing: Functional Sensation Right Lower Extremit: Impaired Sensation Left Lower Extremity: Intact Transfers Roll Left to Right (QC): 6 Sit to Lying (QC): 6 Lying to Sitting/Side of Bed(Q: 6 Sit to Stand (QC): 4 Chair/Sgp-cr-Ouxlb Xfer(QC): 4 Patient ambulates into the restroom, she uses the toilet without assist, she is a little impulsive, moves quickly without regard for her IV line. Gait Does the Patient Walk?: Yes Mode of Locomotion: Walk Anticipated Mode of Locomotion: Walk Walk 10 feet (QC): 4 Walk 50 ft with 2 Turns(QC): 4 Walk 150 ft (QC): 4 Distance: 200' Gait Assistive Device: None Comments/Gait Description Brisk ambulation but unsteady, patient needed steadying assist, would benefit from using a walker Assessment/Needs Patient in bed post tx with nurse call, phone, tray, all needs met, bed alarm on. Patient is impulsive and moves without regard for her attachments, fall risk. Rehab Potential: Fair PT Talent Acquisition Partner Goals Talent Acquisition Partner Goals PT Talent Acquisition Partner Goals Time Frame: Dec 17, 2021 Roll Left & Right (QC): 6 Sit to Lying (QC): 6 Lying-Sitting on Side/Bed(QC): 6 Sit to Stand (QC): 4 (SBA) Chair/Hgh-an-Dwyvt Xfer(QC): 4 (SBA) Walk 10 feet (QC): 4 (SBA) Walk 50ft with 2 Turns (QC): 4 (SBA) Walk 150 ft (QC): 4 (SBA) PT Plan Problem List Problem List: Activity Tolerance, Functional Strength, Safety, Balance, Gait, Transfer, Bed Mobility, ROM Treatment/Plan Treatment Plan: Continue Plan of Care Treatment Plan: Bed Mobility, Education, Functional Activity Hilario, Functional Strength, Gait, Safety, Therapeutic Exercise, Transfers Treatment Duration: Dec 17, 2021 Frequency: 6 times per week Estimated Hrs Per Day: .25 hour per day Patient and/or Family Agrees t: Yes Safety Risks/Education Patient Education: Gait Training, Transfer Techniques, Correct Positioning, Safety Issues Teaching Recipient: Patient Teaching Methods: Demonstration, Discussion Response to Teaching: Reinforcement Needed Discharge Recommendations Plan Patient will perform bed mobility and transfer training, balance and endurance training, functional strengthening, stair training, gait training, and education, to improve functional mobility and independence at home. Therapy Discharge Recommendati: Scheduled Assistance, Home & Family, Post Acute PT Time/GCodes Time In: 1120 Time Out: 1132 Total Billed Treatment Time: 12 Total Billed Treatment 1 visit JESSIE SCHNEIDER PT Dec 10, 2021 11:43
--- NOTE | 2021-12-10 11:52 | Occupational Therapy Eval ---
OT Evaluation-General/PLF Medical Diagnosis Admission Date Dec 09, 2021 at 19:21 Medical Diagnosis: stroke-like symptoms Onset Date: Dec 09, 2021 Therapy Diagnosis Therapy Diagnosis: numbness LUE Height/Weight Height (Feet): 5 Height (Inches): 7.00 Weight (Pounds): 190 Weight (Ounces): 0 Precautions Precautions/Isolations: Fall Prevention, Standard Precautions Referral Physician: Soni Baird DO Referral Reason: Evaluation/Treatment Medical History Pertinent Medical History: Arthritis, DM, GERD, HTN Additional Medical History pmh: depression, htn, bipolar Surgeries: Yes Abdominal, Adenoidectomy, Appendectomy, Bowel Surgery, Breast, Cardiac, Gallbladder, Hysterectomy, Oophorectomy, Orthopedic, Renal, Tonsillectomy, Tracheostomy, Tubal Ligation Respiratory: Yes (HAS INHALER PRN) Chronic Bronchitis Currently Using CPAP: No Cardiac: Yes (DVT 2010-UPPER ARM/SHOULDER ; CARDIAC CATH-NO INTERVENTION; AORTIC STENOSIS) Deep Vein Thrombosis, High Cholesterol, Hypertension, Valvular Heart Disease Neurological: Yes Headaches /Migraines Reproductive Disorders: Yes Female Reproductive Disorders: Polycystic Ovarian Dis 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, 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 Sexually Transmitted Disease: No HIV/AIDS: No Genitourinary: Yes (KIDNEY STONE REMOVALS) Kidney Infection, Bladder Infection, Kidney Stones Gastrointestinal: Yes (ESOPH CA/STRICTURES/DILATIONS;COLON RESECTION;POLYPECTOMIES;PEG TUBE-REM) Gastroesophageal Reflux, Chronic Constipation, Diverticulosis, Polyps Musculoskeletal: Yes (BUNIONECTOMY) Arthritis, Fibromyalgia Endocrine: Yes Diabetes, 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; GLASSES) Dysphagia Loss of Vision: Bilateral Hearing Impairment: Denies Cancer: Yes (OROPHARNYX/ESOPHAGEAL CANCER) What Type of Treatment Did You: Chemotherapy, Radiation, Surgical Intervention Psychosocial: Yes (MULTIPLE PSYCH ADMITS, OVERDOSES AND SUICIDE ATTEMPTS) Sleep Difficulties, Anxiety, Suicide Attempts, Bipolar, Depression Current History ED with stroke like symptoms, numbness LUE Social History Home: Single Level Current Living Status: Alone ADL-Prior Level of Function SCALE: Activities may be completed with or without assistive devices. 6-Upwjrqruei-axjhcew completes the activity by him/herself with no assistance from a helper. 5-Set-up or Clean-up Assistance-helper sets up or cleans up; patient completes activity. [place] assists only prior to or following the activity. 4-Supervision or Touching Assistance-helper provides verbal cues and/or touching/steadying and/or contact guard assistance as patient completes activity. Assistance may be provided throughout the activity or intermittently. 3-Partial/Moderate Assistance-helper does LESS THAN HALF the effort. [place] lifts, holds or supports trunk or limbs, but provides less than half the effort. 2-Substantial/Maximal Assistance-helper does MORE THAN HALF the effort. [place] lifts or holds trunk or limbs and provides more than half the effort. 5-Autnlmety-rmonxu does ALL the effort. Patient does none of the effort to complete the activity. Or, the assistance of 2 or more helpers is required for the patient to complete the activity. If activity was not attempted, code reason: 7-Patient Refused. 9-Not Applicable-not attempted and the patient did not perform the activity before the current illness, exacerbation or injury. 10-Not Attempted due to Environmental Limitations-(lack of equipment, weather restraints, etc.). 88-Not Attempted due to Medical Conditions or Safety Concerns. ADL PLOF Comments Pt reports IND with ADLs and functional mobility at OF, no AD. Self Care: Independent Functional Cognition: Independent OT Current Status Subjective Pt in bed, agreeable to OT evaluation/tx. Pt feels as though she has pretty much returned to normal, her main concern is LUE numbness Mental Status/Objective Patient Orientation: Person, Place, Situation Attachments: IV Current Upper Extremity ROM WFL, BUE shoulder flexion to approx 100 degrees Upper Extremity Sensation LUE numbness along median nerve distribution Upper Extremity Strength grossly 3+/5 bilaterally. ADL-Treatment Eating (QC): 6 (Per pt and nursing report.) On/Off Footwear (QC): 5 (slip on shoes.) Toileting Hygiene (QC): 6 (IND) Other Treatments Pt in bed, transferred supine to sit EOB independently, then transferred into bathroom, no AD, OT managed IV pole. Pt completed toileting, then stood at sink to wash her hands independently, transferring to recliner for UE screen. Strength equal bilaterally, but numbness reported along median nerve distribution of hand. Pt performed mobility in halls, no AD. Pt states she starts to go too fast and feels like she may fall, brisk ambulation but unsteady, but has decreased awareness and doesn't slow down requiring some clare bhumika assistance. Pt indicates this is her baseline. Pt transferred to bed, and supine independently. Post tx, pt in bed, call light in reach and all needs met, bed alarm activated. Education OT Patient Education: Correct positioning, Modified ADL techniques, Progress toward Goal/Update tx plan, Purpose of tx/functional activities Teaching Recipient: Patient Response to Teaching: Verbalize Understanding OT Alf Goals Alf Goals 1=Demonstrate adherence to instructed precautions during ADL tasks. 2=Patient will verbalize/demonstrate understanding of assistive devices/modifications for ADL. 3=Patient will improve strength/tolerance for activity to enable patient to perform ADL's. OT Education/Plan Problem List/Assessment Assessment: No Skilled OT Needs ID'd No skilled OT services indicated at this time, as pt is at her PLOF with ADLs. d/c from OT. Discharge Recommendations Plan/Recommendations: Discharge/Goals Met Treatment Plan/Plan of Care Patient would benefit from OT for education, treatment and training to promote independence in ADL's, mobility, safety and/or upper extremity function for ADL's. Plan of Care: ADL Retraining, Functional Mobility Treatment Duration: Dec 10, 2021 Frequency: 1 time per week (eval only) Time/GCodes Start Time: 11:22 Stop Time: 11:33 Total Time Billed (hr/min): 11 Billed Treatment Time 1NARINDER ADDISON OT Dec 10, 2021 11:52
--- NOTE | 2021-12-10 15:33 | History & Physical-Hospitalist ---
JOHN MAE 12/10/21 1533: History of Present Illness HPI/Chief Complaint CC: left sided weakness, N/V/D Bethany Mares, 61 YO female, with a hx of HTN, HLD, bipolar and depression presented to the ED last night c/o left arm weakness and numbness and N/V/D for last x 2 days. She continues to have left arm numbness and weakness today with a positive pronator drift on the left. She also reports stumbling at home for the last several days due to "dragging of left leg." Denies falls striking her head or LOC. She is not on any blood thinners. States she has not taken her normal home medications for the last 2 days due to frequent N/V. While in the ED she was found to be hypokalemic with potassium of 2.3. Her potassium level has improved today to 3.3. She has decreased appetite, but was able to keep down a banana and fluids this morning. She denies chest pain, cough, fever, chills, urinary sx, or any other complaints at this time. She denies hx of kidney or liver problems. She was a former smoker with hx of esophageal cancer, in remission. Source: patient, other (ED report ) Exam Limitations: no limitations Date Seen 12/10/21 Time Seen by a Provider: 12:05 Attending Physician [facility] PCP Admitting Physician: Soni Baird DO Attending Physician: Baljeet Krishnamurthy MD Referring Physician Date of Admission Dec 09, 2021 at 19:21 Home Medications & Allergies Home Medications Reviewed patient Home Medication Reconciliation performed by pharmacy medication reconciliations electromechanical technician and/or nursing. Patients Allergies have been reviewed. Allergies Allergies Coded Allergies Iodinated Contrast Media (Verified Allergy, Severe, HIVES, 10/02/17) COUGHING, SNEEZING, HIVES UPON TRACE AMOUNT OF CONTRAST. codeine (Verified Allergy, Intermediate, RASH/SWELLING; PATIENT HAS RECEIVED MORPHINE W/O PROBLEMS, 12/06/16) adhesive tape (Verified Allergy, Unknown, 12/06/16) latex (Verified Allergy, Unknown, 12/06/16) Penicillins (Verified Adverse Reaction, Mild, NAUSEA/VOMITING, 12/07/16) SHE CAN TAKE AUGMENTIN FINE Past Yawmbum-Yrwqql-Sgbkly Hx Patient Social History Tobacco Use?: Yes Smoking Status: Former Smoker Use of E-Cig and/or Vaping dev: No Substance use?: Yes Substance type: Marijuana Substance frequency: Several times a month Alcohol Use?: Yes Alcohol Frequency: Several times a month Pt feels they are or have been: No Immunizations Up To Date Date of Influenza Vaccine: July 25, 2016 Tetanus Booster (TDap): Unknown Hepatitis A: No Hepatitis B: No PED Vaccines UTD: No Date of Pneumonia Vaccine: July 25, 2016 Seasonal Allergies Seasonal Allergies: Yes Current Status status: No status: No Advance Directives: No Communicates: Verbally Primary Language: Polish Preferred Spoken Language: Polish Is interpretation needed?: No Implanted or Applied Medical D: None Past Medical History Surgeries: Abdominal, Adenoidectomy, Appendectomy, Bowel Surgery, Breast, Cardiac, Gallbladder, Hysterectomy, Oophorectomy, Orthopedic, Renal, Tonsillectomy, Tracheostomy, Tubal Ligation Chronic Bronchitis Currently Using CPAP: No Deep Vein Thrombosis, High Cholesterol, Hypertension, Valvular Heart Disease Headaches /Migraines 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, 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 Sexually Transmitted Disease: No HIV/AIDS: No Kidney Infection, Bladder Infection, Kidney Stones Gastroesophageal Reflux, Chronic Constipation, Diverticulosis, Polyps Arthritis, Fibromyalgia Diabetes, Non-Insulin dep Dysphagia Loss of Vision: Bilateral Hearing Impairment: Denies Esophageal Did You Recieve Any Treatments: Yes What Type of Treatment Did You: Chemotherapy, Radiation, Surgical Intervention Sleep Difficulties, Anxiety, Suicide Attempts, Bipolar, Depression Blood Disorders: No Adverse Reaction/Blood Tranf: No Family Medical History Alzheimer's disease 19 MOTHER Arthritis 19 MOTHER Cardiovascular disease 19 MOTHER Cataracts 19 MOTHER Dementia 19 MOTHER Diabetes mellitus 19 FATHER Headache disorder Hypercholesterolemia 19 FATHER Hypertension 19 FATHER Neoplasm 19 FATHER (PANCREATIC CANCER) Heart Disease, Cancer, Hypertension, Psychiatric Problems SOCIAL HISTORY: -SMOKED 1 PPD X 30 YEARS, QUIT 1986 -ETOH--OCCASIONAL USE -DRUGS--HX OF RX DRUG ABUSE AND OVERDOSES, THC USE PAST SURGICAL HISTORY: -MODIFIED RADICAL NECK DISSECTION FOR OROPHARYNGEAL CANCER -ALSO HAD SURGERY FOR ESOPHAGEAL CANCER -PEG TUBE--LATER REMOVED -TRACHEOSTOMY--LATER REMOVED -PORT PLACE--LATER REMOVED -MULTIPLE EGD'S/COLONOSCOPIES/ESOPHAGEAL DILATIONS/POLYPECTOMIES -COLON RESECTION FOR DIVERTICULAR DISEASE -BUNIONECTOMY -CARDIAC CATH--NO INTERVENTION -BREAST REDUCTION -CYSTOSCOPIES, URETERAL STENT; KIDNEY STONE REMOVAL -TONSILLECTOMY/ADENOIDECTOMY -APPENDECTOMY -CHOLECYSTECTOMY -HYSTERECTOMY/BILATERAL SALPINGO-OOPHORECTOMY -BILATERAL TUBAL LIGATION -TEETH REMOVED PAST SURGICAL HISTORY: - Review of Systems Constitutional: No chills, No fever; weakness (L>R) EENTM: No blurred vision, No double vision, No throat pain Respiratory: No cough, No dyspnea on exertion, No short of breath Cardiovascular: No chest pain Gastrointestinal: No abdominal pain; diarrhea, loss of appetite, nausea, vomiting Genitourinary: No decreased output, No dysuria, No frequency : No Musculoskeletal: No back pain, No muscle pain; muscle weakness (left hand ) Skin: No change in color, No rash Psychiatric/Neurological: Anxiety; Denies Headache; Numbness (left hand) Physical Exam Physical Exam Vital Signs Vital Signs - First Documented 12/09/21 12/09/21 12/09/21 12/10/21 16:47 20:09 22:19 00:47 Temp 36.8 Pulse 117 Resp 20 B/P (MAP) 156/80 (105) Pulse Ox 99 O2 Delivery Room Air O2 Flow Rate 2.00 FiO2 21 Capillary Refill : Less Than 3 Seconds Height, Weight, BMI Height: 5'7.00" Weight: 190lbs. 0oz. 86.723464du; 21.47 BMI Method:Stated General Appearance: No Apparent Distress, Other (appears older than stated age ) Eyes: Bilateral Eye PERRL, Bilateral Eye EOMI HEENT: PERRL/EOMI, Moist Mucous Membranes Neck: Non Tender, Supple Respiratory: Chest Non Tender, Lungs Clear, Normal Breath Sounds, No Accessory Muscle Use, No Respiratory Distress Cardiovascular: Regular Rate, Rhythm, No Edema, Normal Peripheral Pulses, Diastolic Murmur (+1-2/6), Systolic Murmur (+2-3/6) Gastrointestinal: Non Tender, Soft, Abnormal Bowel Sounds (hyperactive) Back: No CVA Tenderness Extremity: Non Tender, No Calf Tenderness, No Pedal Edema Neurologic/Psychiatric: Alert, Oriented x3, Normal Mood/Affect; No Aphasia, No Facial Droop; Motor Weakness (+4/5 on right. Slight decrease in sales expert strength on left. ); No Sensory Deficit; Other (positive pronator drift on left. Negative babinksi bilaterally ) Skin: Normal Color, Warm/Dry Lymphatic: No Adenopathy Results Results/Procedures Labs Laboratory Tests 12/09/21 16:50 12/10/21 04:45 Patient resulted labs reviewed. Assessment/Plan Admission Diagnosis Admission Status: Inpatient Order (span 2 midnights) Assessment and Plan Assessment: Hypokalemia - improved today potassium 3.3 Dehydration - improved Gasteroenteritis Possible TIA Systolic and diastolic murmur Depression Bipolar Plan: Potassium and magnesium replacement IV fluids MRI of brain with and without contrast to r/o acute ischemic infarct Carotid doppler Monitor labs and continue supportive care BALJEET KRISHNAMURTHY MD 12/10/21 1723: Past Ztxzqnw-Atelrn-Pkqyfb Hx Family Medical History Alzheimer's disease 19 MOTHER Arthritis 19 MOTHER Cardiovascular disease 19 MOTHER Cataracts 19 MOTHER Dementia 19 MOTHER Diabetes mellitus 19 FATHER Headache disorder Hypercholesterolemia 19 FATHER Hypertension 19 FATHER Neoplasm 19 FATHER (PANCREATIC CANCER) Assessment/Plan Admission Diagnosis 1. Gastroenteritis 2. Dehydration with hypokalemia secondary to #1 3. Mild left-sided weakness and numbness greater than [address] head we will proceed with MRI of the brain and carotid Doppler evaluation for in vestigation of possible TIA versus CVA. Admission Status: Inpatient Order (span 2 midnights) Reason for Inpatient Admission: See admission diagnosis Supervisory-Addendum Brief Verification & Attestation Participated in pt care: history, MDM, physical Personally performed: exam, history, MDM, supervision of care Care discussed with: Medical Student Procedures: n/a Patient evaluated in conjunction with medical student electronic medical record reviewed. Per history her deficits were greater than 12 hours past the opportunity for thrombolytic or endovascular intervention MRI of the brain and carotid Doppler evaluation pending. JOHN MAE Dec 10, 2021 15:33 BALJEET KRISHNAMURTHY MD Dec 10, 2021 17:23
--- NOTE | 2021-12-10 16:02 | Diagnostic Imaging Report ---
CLINICAL INDICATIONS: Patient having a hard time holding completely still for this exam. EXAM: MRI of the brain performed without IV contrast. Sequences include sagittal T1, axial T2, axial flair, axial gradient echo, DWI, ADC map, and axial T1. COMPARISON: Head CT without contrast dated 07/10/2021. MRI of the brain without contrast dated 10/06/2017. FINDINGS: There is a small area of diffusion restriction involving the high posterior right frontal/parietal lobe region. There are smaller focal areas of diffusion restriction adjacent to this area of infarct. There is a focal area of elevated DWI signal and normalized ADC map signal involving the right occipital lobe. There is some increased T2 signal in the region. This may represent acute/subacute focal infarct. There is interval development of cortical and subcortical high T2 signal involving the right frontal lobe, posterior right frontal/parietal lobe region, right occipital lobe and small amount involving the posterior left frontal and parietal region, posterior left periventricular region and left occipital lobe. There is a 9 mm circumscribed area of high T2 signal involving the left frontal lobe region. This was seen on the prior head CT. The brain parenchymal volume appears appropriate for the patient's age. There is no brain herniation or midline shift. There is no hydrocephalus. The grand traverse of [place] vascular structures show no gross abnormality as visualized. The pituitary gland, sella, and suprasellar regions are unremarkable as visualized. The extracranial soft tissue, skull, and orbits are unremarkable. There is minimal mucosal thickening involving the ethmoid sinus. There is small amount of fluid involving the left mastoid air cells. IMPRESSION: 1: There is a small area of acute infarct involving the posterior right frontal/parietal lobe region. There are focal areas of infarct adjacent to this small area of infarct. 2: There is a focal area of acute/subacute infarct involving the right occipital lobe. 3: There is xaeeb-ea-svkthuip amount of patchy and confluent cortical and subcortical high T2 signal involving the watershed area of the right frontal lobe and smaller amount involving the left posterior frontal/parietal lobe region and left occipital region. 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 Sequelae from watershed hypoxic ischemia also cannot be completely excluded, but given its signal characteristics, it would represent a subacute event. 4: There is a small, benign, circumscribed cystic area involving left frontal lobe seen on the prior head CT. Small area of cystic encephalomalacia, prominent perivascular space, or neuroglial cyst may be considered. Dictated by: Dictated on workstation # [id number]
--- NOTE | 2021-12-10 16:49 | Diagnostic Imaging Report ---
PROCEDURE: US carotid duplex, bilateral. TECHNIQUE: Multiple real-time grayscale images were obtained over the carotid arteries in various projections, bilaterally. Additional spectral analysis and color Doppler duplex images were also obtained. INDICATION: Weakness. COMPARISON: None available. FINDINGS: Fcwc-bp-xatpishr amount of plaque is noted within the bilateral carotid arterial systems. The peak systolic velocity within the mid to distal right internal carotid artery is elevated at up to 220 cm/s. This is associated with elevation of the right internal carotid artery/common carotid artery ratio of 5.2. Additionally, peak systolic velocity within the proximal left internal carotid artery is mildly elevated at 126 cm/s with mild elevation of the left internal carotid artery/common carotid artery ratio of 2.4. Otherwise, peak systolic velocities throughout the bilateral carotid arterial systems are otherwise within normal limits. Antegrade flow within bilateral vertebral arteries. IMPRESSION: Greater than 70% stenosis but less than near occlusion of the mid to distal right internal carotid artery. 50-69% stenosis involving the proximal left internal carotid artery. Parameters based on the consensus panel Fiore-Scale and Doppler ultrasound criteria published January 2003, Radiology, Volume 229. DOPPLER (peak systolic velocity M/S Right Left CCA .42 .54 ICA Proximal .95 1.3 ICA Mid 1.8 .80 ICA Distal 2.2 .72 RATIO 5.2 2.4 ECA .75 .72 VERT .31 .41 Dictated by: Dictated on workstation # [id number]
[2021-12-10] MEDS ORDERED: ASPIRIN E.C. 81 MG (ECOTRIN) TAB PO NR (18:00)
[2021-12-10] MEDS: ENOXAPARIN 40 MG/0.4 ML (LOVENOX) SYR SC SCH (21:05)
[2021-12-11] MEDS: ALPRAZolam 0.5 MG (XANAX) TAB PO PRN ×2 (01:26→11:38)
[2021-12-11] MEDS: NS IV 1000 ML 1,000 ML IV SCH (03:21)
[2021-12-11 03:47] VITALS: BP 158/88
[2021-12-11 05:47] LABS: BASOPHILS % (AUTO) 0 % (0-10); EOSINOPHILS % (AUTO) 0 % (0-10); HEMATOCRIT 37 % (35-52); LYMPHOCYTES # (AUTO) 1.2 10^3/uL (1.0-4.0); LYMPHOCYTES % (AUTO) 29 % (12-44); MEAN CORPUSCULAR HEMOGLOBIN 32 pg (25-34); MEAN CORPUSCULAR HGB CONC 35 g/dL (32-36); MEAN CORPUSCULAR VOLUME 92 fL (80-99); MEAN PLATELET VOLUME 9.7 fL (9.0-12.2); MONOCYTES # (AUTO) 0.4 10^3/uL (0.0-1.0); MONOCYTES % (AUTO) 9 % (0-12); NEUTROPHILS # (AUTO) 2.6 10^3/uL (1.8-7.8); NEUTROPHILS % (AUTO) 61 % (42-75); PLATELET COUNT 173 10^3/uL (130-400); WHITE BLOOD COUNT 4.2 10^3/uL (4.3-11.0)
[2021-12-11] MEDS ORDERED: KCL 20 MEQ TAB (K-DUR) PO SCH ×2 (06:00→06:30)
[2021-12-11] MEDS ORDERED: POTASSIUM CL 10MEQ/50ML IVPB 50 ML IV SCH (06:00)
[2021-12-11] MEDS ORDERED: MAGNESIUM 1 GM/100 ML IVPB 100 ML IV SCH (06:00)
[2021-12-11 06:07] LABS: ALBUMIN 3.4 GM/DL (3.2-4.5); POTASSIUM 2.9 MMOL/L (3.6-5.0)
[2021-12-11 06:10] LABS: TOTAL PROTEIN 5.5 GM/DL (6.4-8.2)
[2021-12-11 06:12] LABS: BILIRUBIN,TOTAL 0.5 MG/DL (0.1-1.0)
[2021-12-11 06:13] LABS: CREATININE SERUM 0.56 MG/DL (0.60-1.30)
[2021-12-11 06:16] LABS: MAGNESIUM 1.8 MG/DL (1.6-2.4)
[2021-12-11] MEDS: KCL 20 MEQ TAB (K-DUR) PO SCH ×3 (06:44→11:36)
[2021-12-11 07:58] VITALS: BP 200/97
[2021-12-11] MEDS: SENNOSIDES 8.6 MG (SENOKOT) TAB PO SCH (08:41)
[2021-12-11] MEDS: DOCUSATE SODIUM 100 MG (COLACE) CAP PO SCH (08:42)
[2021-12-11] MEDS ORDERED: ASPIRIN E.C. 81 MG (ECOTRIN) TAB PO SCH (09:00)
--- NOTE | 2021-12-11 10:18 | Physical Therapy Daily Note ---
PT Daily Note-Current Subjective Pt agreeable. Up ad ayse in the room, denies pain. "I just feel a little weak". Reports her balance feels close to PLOF. Pain Numeric Pain Scale: 0-No Pain Section J - Health Conditions 1. Rarely or not at all 2. Occasionally 3. Frequently 4. Almost constantly 8. Unable to answer Pain Effect on Sleep: 1 Pain Interference with Therapy: 1 Pain Interference w/Day-to-Day: 1 Mental Status Patient Orientation: Person, Place, Time, Situation Transfers SCALE: Activities may be completed with or without assistive devices. 9-Bybivruumy-vmsjudm completes the activity by him/herself with no assistance from a helper. 5-Set-up or Clean-up Assistance-helper sets up or cleans up; patient completes activity. [place] assists only prior to or following the activity. 4-Supervision or Touching Assistance-helper provides verbal cues and/or touching/steadying and/or contact guard assistance as patient completes activity. Assistance may be provided throughout the activity or intermittently. 3-Partial/Moderate Assistance-helper does LESS THAN HALF the effort. [place] lifts, holds or supports trunk or limbs, but provides less than half the effort. 2-Substantial/Maximal Assistance-helper does MORE THAN HALF the effort. [place] lifts or holds trunk or limbs and provides more than half the effort. 4-Mwqanpxbb-qtkyxd does ALL the effort. Patient does none of the effort to complete the activity. Or, the assistance of 2 or more helpers is required for the patient to complete the activity. If activity was not attempted, code reason: 7-Patient Refused. 9-Not Applicable-not attempted and the patient did not perform the activity before the current illness, exacerbation or injury. 10-Not Attempted due to Environmental Limitations-(lack of equipment, weather restraints, etc.). 88-Not Attempted due to Medical Conditions or Safety Concerns. Sit to Lying (QC): 6 Sit to Stand (QC): 6 Chair/Brt-er-Dsjlv Xfer(QC): 6 Weight Bearing Right Lower Extremity: Right Full Weight Bearing Left Lower Extremity: Left Full Weight Bearing Gait Training Does the Patient Walk?: Yes Distance: 200 Walk 10 feet (QC): 5 Walk 50 ft with 2 Turns(QC): 5 Walk 150 ft (QC): 5 Gait Persons Needed: 1 Gait Assistive Device: None Pt ambulated 200' x 1 with no AD, SBA-mod (I). No LOB. Quick but safe gait. Wheelchair Training Does the Pt Use a Wheelchair?: No Type of Wheelchair: N/A Treatments Ambulation without AD. Returned to bed, all needs met. Assessment Current Status: Good Progress Pt tolerated well. Safe gait, up ad ayse in the room. Pt reports near PLOF for mo bility. 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[facility] Goals PT [facility] Goals Time Frame: Dec 17, 2021 Roll Left & Right (QC): 6 Sit to Lying (QC): 6 Lying-Sitting on Side/Bed(QC): 6 Sit to Stand (QC): 4 (SBA) Chair/Zyv-vv-Dsfko Xfer(QC): 4 (SBA) Walk 10 feet (QC): 4 (SBA) Walk 50ft with 2 Turns (QC): 4 (SBA) Walk 150 ft (QC): 4 (SBA) PT Plan Problem List Problem List: Activity Tolerance, Functional Strength, Balance, Gait, Transfer Treatment/Plan Treatment Plan: Continue Plan of Care Treatment Plan: Bed Mobility, Education, Functional Activity Hilario, Functional Strength, Gait, Safety, Therapeutic Exercise, Transfers Treatment Duration: Dec 17, 2021 Frequency: 6 times per week Estimated Hrs Per Day: .25 hour per day Patient and/or Family Agrees t: Yes Time/GCodes Time In: 843 Time Out: 853 Total Billed Treatment Time: 10 Total Billed Treatment 1, FA x 10' BETO SANCHEZ DPT Dec 11, 2021 10:18
[2021-12-11] MEDS ORDERED: ASPI-479 PO (10:42)
[2021-12-11] MEDS ORDERED: ATOR80TA76 PO (10:42)
--- NOTE | 2021-12-11 11:04 | Discharge Summary ---
Diagnosis/Chief Complaint Date of Admission Dec 09, 2021 at 19:21 Date of Discharge Discharge Date: Dec 11, 2021 Admission Diagnosis 1. Gastroenteritis 2. Dehydration with hypokalemia secondary to #1 3. Mild left-sided weakness and numbness greater than [address] head we will proceed with MRI of the brain and carotid Doppler evaluation for investigation of possible TIA versus CVA. Primary Care Anna Yoon Aprn Discharge Summary Discharge Physical Exam Allergies: Coded Allergies: Iodinated Contrast Media (Verified Allergy, Severe, HIVES, 10/02/17) COUGHING, SNEEZING, HIVES UPON TRACE AMOUNT OF CONTRAST. codeine (Verified Allergy, Intermediate, RASH/SWELLING; PATIENT HAS RECEIVED MORPHINE W/O PROBLEMS, 12/06/16) adhesive tape (Verified Allergy, Unknown, 12/06/16) latex (Verified Allergy, Unknown, 12/06/16) Penicillins (Verified Adverse Reaction, Mild, NAUSEA/VOMITING, 12/07/16) SHE CAN TAKE AUGMENTIN FINE Vitals & I&Os Vital Signs Date Time Temp Pulse Resp B/P (MAP) Pulse Ox O2 Delivery O2 Flow Rate FiO2 12/11/21 08:24 Room Air 12/11/21 07:58 36.3 62 20 200/97 (131) 96 12/10/21 08:07 2.00 12/10/21 00:47 21 General Appearance: No Apparent Distress Respiratory: Chest Non Tender, Lungs Clear, Normal Breath Sounds, No Accessory Muscle Use, No Respiratory Distress Cardiovascular: Regular Rate, Rhythm, Diastolic Murmur, Systolic Murmur (Unchanged) Neurologic/Psychiatric: Alert, Oriented x3, Other ( left upper extremity and lower extremity strength improved today normal fine motor control 4-5 out of 5 left 5+ right upper and lower extremity strength.) Hospital Course Was the Problem List Reviewed?: Yes Patient presented to the emergency room reporting that she had not felt well for several days she had some nausea and vomiting with poor p.o. intake. As she de nied hematemesis melena or bright red blood per rectum and denied abdominal pain. She was noted to have an increased BUN to creatinine ratio of 22/0.9 and significant hypokalemia at 2.3. IV fluids were initiated with potassium replacement. Her home medications were held. She reports that she has only been taking Latuda she had been on some antihypertensive medication in the past but had not taken anything but Latuda for a number of months she reports that her bipolar disorder have been under control. She has had no recent issues with depression or yaniv. Upon my arrival she reports that she had had several falls dragging her left foot with some left arm weakness beginning 3 days prior to her admission. Hearing this and also noting that she had a 2/6 to 3/6 systolic ejection murmur as well as 1/6 to 2/6 diastolic murmur over the aortic outflow tract that appeared to be transmitted the left carotid we did obtain an MRI of the brain as well as carotid Doppler evaluation. Findings are as per below compatible with acute/subacute infarct of the left frontoparietal area. Doppler interrogation was compatible with likely severe stenosis on the right and moderate stenosis on the left. While the radiologist questions posterior reversible encephalopathy syndrome her findings are easily explained by far more common vascular disease considering carotid stenosis that is significant. She had no further nausea vomiting and never did have any headaches associated. Aspirin and high-dose statin in the form of atorvastatin 80 mg daily that were initiated. With IV rehydration left side his strength was nearly back to baseline patient was ambulating with stability voicing no complaints. She denied headache had no chest symptoms but did have significantly elevated blood pressure. Considering that this is asymptomatic even though in the 1 60-1 90 range acute treatment now would only put her at increased risk for extending her infarction. We discussed that she will need follow-up with a vascular surgeon to discuss consideration for surgery and timing. She was [facility] to set up a referral. We discussed that if she had recurrence of weakness of the left upper extremity or other new neurologic symptoms she should emergently return to the emergency room as there are acute treatment options for her. Considering her auscultatory findings today they suggest the possibility of a bicuspid aortic valve which can be worked up as an outpatient as physical examination does not suggest severe aortic stenosis or severe aortic insufficiency. She should undergo echocardiography for further evaluation. 1: There is a small area of acute infarct involving the posterior right frontal/parietal lobe region. There are focal areas of infarct adjacent to this small area of infarct. 2: There is a focal area of acute/subacute infarct involving the right occipital lobe. 3: There is [id number] amount of patchy and confluent cortical and subcortical high T2 signal involving the watershed area of the right frontal lobe and smaller amount involving the left posterior frontal/parietal lobe region and left occipital region. 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 Sequelae from watershed hypoxic ischemia also cannot be completely excluded, but given its signal characteristics, it would represent a subacute event. Labs (last 24 hrs) Laboratory Tests 12/11/21 05:13: White Blood Count 4.2L, Red Blood Count 4.07, Hemoglobin 13.0, Hematocrit 37, Mean Corpuscular Volume 92, Mean Corpuscular Hemoglobin 32, Mean Corpuscular Hemoglobin Concent 35, Red Cell Distribution Width 16.0H, Platelet Count 173, Mean Platelet Volume 9.7, Immature Granulocyte % (Auto) 0, Neutrophils (%) (Auto) 61, Lymphocytes (%) (Auto) 29, Monocytes (%) (Auto) 9, Eosinophils (%) (Auto) 0, Basophils (%) (Auto) 0, Neutrophils # (Auto) 2.6, Lymphocytes # (Auto) 1.2, Monocytes # (Auto) 0.4, Eosinophils # (Auto) 0.0, Basophils # (Auto) 0.0, Immature Granulocyte # (Auto) 0.0, Sodium Level 139, Potassium Level 2.9L, Chloride Level 106, Carbon Dioxide Level 24, Anion Gap 9, Blood Urea Nitrogen 7, Creatinine 0.56L, Estimat Glomerular Filtration Rate 103, BUN/Creatinine Ratio 13, Glucose Level 88, Calcium Level 8.0L, Corrected Calcium 8.5, Magnesium Level 1.8, Total Bilirubin 0.5, Aspartate Amino Transf (AST/SGOT) 17, Alanine Aminotransferase (ALT/SGPT) 7, Alkaline Phosphatase 57, Total Protein 5.5L, Albumin 3.4 Microbiology 12/09/21 Urine Culture - Final, Complete NO GROWTH Patient resulted labs reviewed. Pending Labs Laboratory Tests 12/11/21 05:13: White Blood Count 4.2, Red Blood Count 4.07, Hemoglobin 13.0, Hematocrit 37, Mean Corpuscular Volume 92, Mean Corpuscular Hemoglobin 32, Mean Corpuscular Hemoglobin Concent 35, Red Cell Distribution Width 16.0, Platelet Count 173, Ofe n Platelet Volume 9.7, Immature Granulocyte % (Auto) 0, Neutrophils (%) (Auto) 61, Lymphocytes (%) (Auto) 29, Monocytes (%) (Auto) 9, Eosinophils (%) (Auto) 0, Basophils (%) (Auto) 0, Neutrophils # (Auto) 2.6, Lymphocytes # (Auto) 1.2, Monocytes # (Auto) 0.4, Eosinophils # (Auto) 0.0, Basophils # (Auto) 0.0, Immature Granulocyte # (Auto) 0.0, Sodium Level 139, Potassium Level 2.9, Chloride Level 106, Carbon Dioxide Level 24, Anion Gap 9, Blood Urea Nitrogen 7, Creatinine 0.56, Estimat Glomerular Filtration Rate 103, BUN/Creatinine Ratio 13, Glucose Level 88, Calcium Level 8.0, Corrected Calcium 8.5, Magnesium Level 1.8, Total Bilirubin 0.5, Aspartate Amino Transf (AST/SGOT) 17, Alanine Aminotransferase (ALT/SGPT) 7, Alkaline Phosphatase 57, Total Protein 5.5, Albumin 3.4 Discussion & Recommendations Discharge Planning: >30 minutes discharge planning Discharge Home Medications: Active Scripts Active Adult Low Dose Aspirin EC (Aspirin) 81 Mg Tablet.dr 81 Mg PO DAILY 100 Days Atorvastatin Calcium 80 Mg Tablet 80 Mg PO DAILY 30 Days Reported [Latuda] 60 Tab 60 Mg PO 1800 W/MEAL Trazodone HCl 100 Mg Tablet 200 Mg PO HS TAKES 2 (100MG) TABS Instructions to patient/family Please see electronic discharge instructions given to patient. Copy Copies To 1: [facility]/BALJEET HAM MD Dec 11, 2021 11:04
[2021-12-11 11:24] VITALS: BP 176/94
== END 2021-12-11 10:37 | disposition home or self-care (01) ==
LOC: EDUNIT# 16:47 → ER 16:48 → UNDOADMOB 19:21 → CSD 19:21 → 4TH 12-10 14:00 → UNDODISOB 12-11 10:37
PROVIDERS: ADMIT Internal Medicine; ATTEND Internal Medicine
DX: K52.9 Noninfective gastroenteritis and colitis, unspecified (principal); E86.0 Dehydration; E87.6 Hypokalemia; Z87.891 Personal history of nicotine dependence; F32.9 Major depressive disorder, single episode, unspecified; F41.9 Anxiety disorder, unspecified
CPT/HCPCS: 51701; 70551; 80053 ×3; 80306; 81000; 83735; 84132; 85025 ×3; 87088; 93880; 96360; 96361; 96366 ×2; 96372 ×2; 96376 ×2; 97162; 97165; 97530; 99284; G0378; 36415

== ENCOUNTER → 2023-01-12 | Outpatient (CLI) | payer MEDICARE ==
[~2023-01-12] MED LIST changes: +ASPI-479 PO; +ATOR80TA76 PO; +CATHETER FLUSH 10 ML SYR IVP PRN; -POTA10CA43 PO; +POTA10CA84 PO; +REGADENOSON 0.4 MG/5 ML SYR IV ONE; -ROSU20TA32 PO; +ROSU20TA73 PO
[2023-01-12 07:07] LABS: ALBUMIN 4.1 GM/DL (3.2-4.5); POTASSIUM 4.1 MMOL/L (3.6-5.0)
[2023-01-12 07:08] LABS: CALCIUM 9.4 MG/DL (8.5-10.1)
[2023-01-12 07:09] LABS: TOTAL PROTEIN 6.8 GM/DL (6.4-8.2)
[2023-01-12 07:11] LABS: BILIRUBIN,TOTAL 0.4 MG/DL (0.1-1.0)
[2023-01-12 07:13] LABS: CREATININE SERUM 0.96 MG/DL (0.60-1.30)
[2023-01-12 08:04] VITALS: BP 112/75
--- NOTE | 2023-01-16 08:02 | Cardiology Stress Test Report ---
Stress Test Report Date of Procedure/Referring: Date of Procedure: Jan 12, 2023 PCP Anna Yoon Aprn Admitting Physician Admitting Physician: Attending Physician: Nathalie Redman MD Baseline Heart Rate: 64 Baseline Blood Pressure: Blood Pressure Systolic: 112 Blood Pressure Diastolic: 75 Baseline Vitals Vital Signs Date Time Temp Pulse Resp B/P (MAP) Pulse Ox O2 Delivery O2 Flow Rate FiO2 01/12/23 08:04 68 112/75 (87) 98 Baseline EKG: Baseline EKG: NSR Summary After explaining the procedure to the patient, she signed a consent and then brought to the stress nuclear laboratory. Patient received 0.4 mg Lexiscan for stress test, ECG, heart rate and blood pressure were monitored continuously. Resting and stress dose of radio tracer were injected, imaging was acquired and reviewed in short axis, horizontal long axis and vertical long axis views. TID: 1.24 SSS: 6 SDS: 6 EF: 76 Patient tolerated Lexiscan well Breast attenuation affecting the quality of the images with decreased uptake at the mid to apical anterior lateral wall with mild reversibility most probably due to breast attenuation Small left ventricular size with transient ischemic dilatation 1.24, I believe the abnormal value is due to the small left ventricular size, ejection fraction 76% Copy Copies To 1: [facility] [place] NATHALIE REDMAN MD Jan 16, 2023 08:01
== END ==
LOC: CARD 06:41
PROVIDERS: ATTEND Internal Medicine Cardiovascular Disease
DX: I10 Essential (primary) hypertension (principal); I65.29 Occlusion and stenosis of unspecified carotid artery; I25.10 Atherosclerotic heart disease of native coronary artery without angina pectoris; E78.2 Mixed hyperlipidemia
CPT/HCPCS: 78452; 80053; 80061; 93017; A9502; 36415